=== PATIENT | female | born 1950 | race Caucasian/White ===

== ENCOUNTER 2018-10-19 13:31 | Emergency (ER) | payer BC, MEDICARE, SELFPAY ==
[2018-10-19 13:32] VITALS: BP 187/98; PULSE 78; RESP 16; TEMP 36.1; O2SAT 93; BMI 33.3
[2018-10-19 13:51] VITALS: BP 183/97; PULSE 87; RESP 32; O2SAT 97
--- NOTE | 2018-10-19 13:56 | RAD_ITS ---
STUDY: X-RAY CHEST REASON FOR EXAM: Female, 68 years old. Hypertension, cough TECHNIQUE: PA and lateral views of the chest. COMPARISON: 07/22/2014 FINDINGS: EKG leads project over the chest. Mild fibrotic scarring in the lingula, similar. Lungs are mildly hyperinflated suggesting chronic obstructive airway disease. There is no demonstrated pleural abnormality. Normal size heart. Normal mediastinum and paty. Normal visualized pulmonary arteries. Normal visualized aortic arch and descending thoracic aorta. There is demineralization of the osseous structures. Normal visualized ribs, clavicles, and shoulders. There is no demonstrated abnormality of the visualized soft tissue structures of the upper abdomen. RAD/Chest PA and Lateral IMPRESSION: No airspace consolidation or pleural effusion. Stable exam. Electronically Signed: David Silver MD at 14:46 EDT , Service support ,
[2018-10-19] MEDS: Ipratropium/Albuterol Sulfate 3 ML AMPUL.NEB INHALATION (14:13)
[2018-10-19 14:14] VITALS: PULSE 77; RESP 20
[2018-10-19 14:21] LABS: Absolute Lymphocyte Count 0.78 X10^3/ul (0.83-4.51); Absolute Neutrophil Count 13.5 X10^3/uL (2.0-7.7); Basophil# 0.01 X10^3/uL; Basophil% 0.1 % (0-1); Hematocrit 36.1 % (37-47); Hemoglobin 11.8 g/dl (12.0-15.0); Lymphocyte # 0.78 X10^3/ul (4.0); Lymphocyte % 5.2 % (19-41); Mean Corp Hgb Conc 32.7 g/gl (32-36); Mean Corpuscular Volume 85.5 fL (81-99); Mean Platelet Vol. 9.2 fl (6.2-12.0); Monocyte% 3.3 % (0-10); Neutrophil # 13.54 X10^3/uL (2.7-7.7); Neutrophil % 90.3 % (47-70); Platelet Count 453 K/mm3 (150-450); RBC Distribution Width CV 14.1 % (11.6-14.6); RBC Distribution Width SD 43.3 fl (35.1-43.9); Red Blood Count 4.22 M/mm3 (4.2-5.4)
[2018-10-19 14:24] LABS: POSITIVE COUNT NO; POSITIVE DIFFERENTIAL NO; POSITIVE MORPHOLOGY NO
--- NOTE | 2018-10-19 14:27 | ED.VIS.GEN ---
History of Present Illness <BritoWest - Last Filed: 10/19/18 15:07> Informant: Patient, Significant Other Onset: Today Context: Sudden Onset Timing: Continuous Quality: elevated blood pressure Current Severity: Severe Maximum Severity: Severe Worsened by: nothing Relieved by: nothing Associated Symptoms: cough Narrative: 68-year-old female with COPD oxygen at night presents to emergency department with elevated blood pressure. Patient gets monthly infusions for her COPD and was getting one today and they noted that her blood pressure is elevated at approximately 185/90. She is on losartan and has been for 2 years. She has been on an extended prednisone taper for weeks. No recent changes to her blood pressure medications or missed doses per patient. She has not felt lightheaded or dizzy or had a headache. She has not had any chest pain or shortness of breath. She otherwise overall is felt well other than a cough that she is been dealing with now for several days and her doctor placed her on antibiotics 3 days ago. No fevers vomiting or diarrhea. No hemoptysis. Prior similar symptoms: Yes Recent Illness/Hospitalization: No <Audi Aldridge - Last Filed: 10/19/18 15:15> Chief Complaint: Hypertension Past Medical History <DarylWest - Last Filed: 10/19/18 15:07> Prior records reviewed: Yes Surgical History: appendectomy, cholecystectomy, hysterectomy, tonsillectomy, - - Hemorrhoidectomy, surgery on her foot and excision of a mass from the left forearm. Smoking Status: Former smoker - Family History Maternal Family History: Reports: No pertinent history Paternal Family History: Reports: No pertinent history <Audi Aldridge - Last Filed: 10/19/18 15:15> - Allergies and Home Meds Allergies/Adverse Reactions: Allergies ampicillin Allergy (Verified 10/19/18 13:32) Other messed up my stomach aspirin [ASA] Allergy (Verified 10/19/18 13:32) Hives cephalexin monohydrate [From Keflex] Allergy (Verified 10/19/18 13:32) [place] Primary Care Physician: Bay Zepeda [Primary Care Provider] - Review of Systems General: Denies: Chills, Fever Respiratory: Reports: Cough, Sputum <Audi Aldridge - Last Filed: 10/19/18 15:15> Physical Exam Vital Signs/Narrative: Vital Signs Temp Pulse Resp BP Pulse Ox 10/19/18 14:14 77 20 H 10/19/18 13:51 87 32 H 183/97 H 97 10/19/18 13:32 97 F L 78 16 187/98 H 93 <Brito,West - Last Filed: 10/19/18 15:07> Vital Signs/Narrative: Vital Signs Temp Pulse Resp BP Pulse Ox 10/19/18 14:14 77 20 H 10/19/18 13:51 87 32 H 183/97 H 97 10/19/18 13:32 97 F L 78 16 187/98 H 93 Inital Vital Signs reviewed: Yes General: Well nourished, Well developed, No Acute Distress Head: Normocephalic, Atraumatic Eyes: Perrl, EOMI ENT: Moist mucous membranes Neck: Supple, Nontender Cardiovascular: Regular rate, Regular rhythm Respiratory: No distress, Chest nontender, Wheezing Abdomen: Soft, Nontender, Nondistended, Normal bowel sounds, No masses Back: Nontender Extremities: Nontender, No edema Skin: Normal color, No rash Neurological: Alert, Oriented x3, Cranial nerves II-XII grossly intact, Normal Strength, Normal Sensation, Normal DTR <Audi Aldridge - Last Filed: 10/19/18 15:15> Diagnostic/Tx/Re-eval - Medical Decision Making Patient was sent from the infusion center because of elevated blood pressure. Patient denies headache. Patient denies visual, ocular auditory symptoms. She denies trouble with speech or swallowing. She denies paresthesia, anesthesia or motor weakness. She denies chest pain or shortness of breath. Denies nausea or vomiting. She denies problems with balance. HEENT exam is unremarkable. There is no carotid bruit. Lungs encrustation. Heart is regular. Neuro exam is nonfocal. Blood work was obtained to assess for endorgan injury. None was noted. Most recent blood pressure was 171/91. She has had blood pressure readings of systolic 1 60-1 65 in the past. Since there is no evidence of endorgan injury and this is an isolated incident treatment is not acutely necessary. Recommend follow-up with PCP. <Dotty Britoo - Last Filed: 10/19/18 15:07> - Medical Decision Making Blood pressure on arrival was 187/98. Because of the recent upper respiratory symptoms patient was concern for pneumonia. Chest x-ray showed no evidence of pneumonia and her labs were unremarkable. Repeat evaluation without treatment blood pressure 171/91. Patient is hemodynamically stable. Discussed with her she will follow-up with her primary care for further management of her blood pressure but we will not treated acutely will alter her regimen. Return precautions given. She was discharged <Audi Aldridge - Last Filed: 10/19/18 15:15> ED Disposition <West Brito - Last Filed: 10/19/18 15:07> <Audi Aldridge - Last Filed: 10/19/18 15:15> - Plan for ED Patient: Disposition: Home or Assisted Living Diagnosis: Accelerated hypertension, COPD (chronic obstructive pulmonary disease) Instructions: HYPERTENSION, Established Referrals: Bay Zepeda [Primary Care Provider] -
[2018-10-19 14:30] LABS: Anion Gap 7 (5-15); BUN 16 mg/dL (7-18); Calcium,Total 9.2 mg/dL (8.5-10.1); Chloride 104 mmol/L (98-107); Creatinine, Serum 0.84 mg/dL (0.55-1.02); EST Glomerular Filtration Rate 72 mL/min (>60); Est Glom Filt Rate - Afr Amer 87 mL/min (>60); Glucose 100 mg/dL (74-106); Potassium 3.1 mmol/L (3.5-5.1); Sodium Level 142 mmol/L (136-145)
[2018-10-19 15:30] VITALS: BP 168/91; PULSE 78; RESP 19; O2SAT 98
== END 2018-10-19 16:11 | disposition home or self-care (01) ==
PROVIDERS: Emergency Provider Physician Assistant Medical; Family Provider Family Medicine; PCP Family Medicine
DX: I10 Essential (primary) hypertension (principal); J44.9 Chronic obstructive pulmonary disease, unspecified; Z79.899 Other long term (current) drug therapy; Z87.891 Personal history of nicotine dependence
CPT/HCPCS: 71046; 80048; 85025; 94640; 99283

== ENCOUNTER 2018-12-18 22:45 | Emergency (ER) | payer BC, MEDICARE, SELFPAY ==
[2018-12-18 22:46] VITALS: BP 167/104; PULSE 92; RESP 24; TEMP 36.8; O2SAT 96; BMI 33.0
--- NOTE | 2018-12-18 23:00 | ED.RN ---
PT WITH REDNESS TO LEFT WRIST WHERE SHE HAD AN INFUSION LAST WEEK PT REPORTS TENDERNESS TO AREA. PT REPORTS LOW GRADE FEVER AT HOME. 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
[2018-12-18 23:28] LABS: Absolute Lymphocyte Count 2.68 X10^3/uL (0.83-4.51); Absolute Neutrophil Count 8.9 X10^3/uL (2.0-7.7); Basophil# 0.08 X10^3/uL; Basophil% 0.6 % (0-1); Eosinophil# 0.24 X10^3/uL; Eosinophils% 1.9 % (0-5); Hematocrit 38.1 % (37-47); Hemoglobin 12.5 g/dL (12.0-15.0); Lymphocyte # 2.68 X10^3/ul (4.0); Mean Corp Hgb Conc 32.8 g/dL (32-36); Mean Corpuscular Volume 85.4 fL (81-99); Mean Platelet Vol. 9.9 fl (6.2-12.0); Monocyte# 0.82 X10^3/uL; Monocyte% 6.4 % (0-10); NRBC Flagged by Analyzer 0 % (0-5); Neutrophil # 8.93 X10^3/uL (2.7-7.7); Neutrophil % 69.8 % (47-70); Platelet Count 374 K/mm3 (150-450); RBC Distribution Width CV 13.3 % (11.6-14.6); RBC Distribution Width SD 41.7 fl (35.1-43.9); Red Blood Count 4.46 M/mm3 (4.2-5.4); White Blood Count 12.8 K/mm3 (4.4-11.0)
--- NOTE | 2018-12-18 23:45 | ED.DCSUM_ITS ---
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 She presents for fever. Her temperature was 99.3 today. She says this is a fever for her. She says her only complaint is left wrist pain at her infusion site from earlier this week. She has been getting these infusions monthly for about 10 years. This is the first time she had pain like this. No associated skin changes. No history of clots. No neurologic symptoms. No infectious symptoms otherwise. Physical Examination: Afebrile and vital signs are unremarkable. Her HEENT exam is grossly normal. Heart regular. Lungs clear. Abdomen soft. Left radial wrist is tender to palpation over the injection site. I do not appreciate any palpable cords or fluctuance. The skin appears unremarkable. She is neuro vascularly intact. Wrist is unremarkable. Test Results: White count is 12.8. Her white count ranges from 9.5-18.4. Emergency Department Course and Treatment: Patient presents with a subjective fever. Otherwise her vitals are normal. Her white count is slightly elevated, but this is nonspecific. I did not find an indication for any other diagnostic testing. She is not having respiratory symptoms, urinary symptoms. I have no reason to suspect a metabolic abnormality. I am not convinced that her injection site pain is related to her subjective fevers. She may have an SVT. She will use warm compresses and use [id number] meds for pain. She will monitor for new or worsening symptoms which could suggest a underlying cause. She will monitor her temperature. Follow-up with primary care. Treatment Plan: As above Disposition: Discharge Impression: 1. Left forearm pain This note was generated with [employer] dictation software. It may contain incorrect words, spelling, and punctuation that were not noted in review of the chart prior to signing ED Disposition - Plan for ED Patient: Referrals: Bay Zepeda [Primary Care Provider] -
--- NOTE | 2018-12-18 23:49 | ED.DEP ---
ED Disposition - Plan for ED Patient: Instructions: FEBRILE ILLNESS, Uncertain Cause (Adult) Referrals: Bay Zepeda [Primary Care Provider] -
== END 2018-12-18 23:58 | disposition home or self-care (01) ==
LOC: ED 23:09
PROVIDERS: Emergency Provider Emergency Medicine; Family Provider Family Medicine; PCP Family Medicine
DX: M79.632 Pain in left forearm (principal); D80.2 Selective deficiency of immunoglobulin A [IgA]; D80.3 Selective deficiency of immunoglobulin G [IgG] subclasses; D80.4 Selective deficiency of immunoglobulin M [IgM]; J44.9 Chronic obstructive pulmonary disease, unspecified; K21.9 Gastro-esophageal reflux disease without esophagitis; I10 Essential (primary) hypertension; E03.9 Hypothyroidism, unspecified; Z79.899 Other long term (current) drug therapy; Z87.891 Personal history of nicotine dependence
CPT/HCPCS: 36415; 85025; 99283

== ENCOUNTER 2019-05-23 00:43 | Emergency (ER) | payer BC, MEDICARE, SELFPAY ==
[2019-05-23 00:44] VITALS: BP 160/86; PULSE 90; RESP 18; TEMP 36.7; O2SAT 93; BMI 32.1
--- NOTE | 2019-05-23 01:19 | RAD_ITS ---
STUDY: X-RAY CHEST REASON FOR EXAM: Female, 69 years old. increased cough and sob -- hx of copd -- states she developed a chest cold 4 days ago TECHNIQUE: Frontal and lateral views of the chest. COMPARISON: None. FINDINGS: The lungs are clear and expanded. There is no demonstrated pleural abnormality. Normal size heart. Normal mediastinum and paty. Normal visualized pulmonary arteries. Normal visualized aortic arch and descending thoracic aorta. Normal visualized thoracic spine. There is degenerative osteoarthritis of the bilateral shoulders. There is no demonstrated abnormality of the visualized soft tissue structures of the upper abdomen. RAD/Chest PA and Lateral IMPRESSION: Degenerative changes, as described above. No demonstrated acute cardiopulmonary process. Electronically Signed: Kylie Baxter, at 2:36 EST Tel , Service support ,
--- NOTE | 2019-05-23 01:19 | EKG12_ITS ---
Test Reason : DYSRHYTHMIA Blood Pressure : / mmHG Vent. Rate : 079 BPM Atrial Rate : 079 BPM P-R Int : 136 ms QRS Dur : 082 ms QT Int : 380 ms P-R-T Axes : 070 034 055 degrees QTc Int : 435 ms Normal sinus rhythm Normal ECG Confirmed by MARIA ANTONIA BARAHONA, МАРИНА ([id number]), purchasing expeditor ARMANDO RUSSELL ([id number]) on 05/27/2019 8:08:54 AM Referred By: Марина Zepeda Confirmed By:МАРИНА EM MD
[2019-05-23] MEDS: MethylPREDNISolone 125 MG/2 ML Vial IV (01:26)
--- NOTE | 2019-05-23 01:30 | ED.DCSUM_ITS ---
History of Present Illness Chief Complaint: Shortness of Breath Informant: Patient Narrative: Patient states that a little over a week ago she was diagnosed with a sinus infection and was started on ciprofloxacin. She states that several days later it moved into her chest and she was started on steroids (from her description sounds like a Medrol dose pack). She states that she has been using her aerosol machine a couple times a day followed by every 4 hour home air. She states that she is no better. She continues to have cough with phlegm. She wears oxygen as needed but particularly at night and with activities. (2 L nasal cannula). 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 She cannot tell me what diagnosis she carries. She states she does not currently smoke. She does not have a wood heater at home. Her daughter reportedly smokes outside. Past Medical History - Allergies and Home Meds Allergies/Adverse Reactions: Allergies ampicillin Allergy (Verified 05/23/19 00:46) Other messed up my stomach aspirin [ASA] Allergy (Verified 05/23/19 00:46) Hives cephalexin monohydrate [From Keflex] Allergy (Verified 05/23/19 00:46) Hives Primary Care Physician: Bay Zepeda [Primary Care Provider] - 3-5 Days Surgical History: appendectomy, cholecystectomy, hysterectomy, tonsillectomy, - - Hemorrhoidectomy, surgery on her foot and excision of a mass from the left forearm. Smoking Status: Former smoker - Family History Maternal Family History: Reports: No pertinent history Paternal Family History: Reports: No pertinent history Review of Systems General: Denies: Chills, Fever, Sweats Eyes: Denies: Visual changes - bilaterally, Diplopia ENT: Reports: Rhinorrhea. Denies: Sore throat Cardiovascular: Denies: Chest pain, Palpitations Respiratory: Reports: Dyspnea, Cough, Sputum, Dyspnea on exertion. Denies: O rthopnea Gastrointestinal: Denies: Abdominal pain, Nausea, Vomiting, Diarrhea, Melena, Hematochezia Genitourinary: Denies: Dysuria, Hematuria, Frequency Musculoskeletal: Denies: Back pain, Extremity Pain Skin: Denies: Rash, Wounds Neurological: Denies: Headache, Weakness, Numbness Physical Exam Vital Signs/Narrative: Vital Signs Temp Pulse Resp BP Pulse Ox 05/23/19 00:44 98.0 F 90 18 160/86 H 93 Inital Vital Signs reviewed: Yes General: Well nourished, Well developed, No Acute Distress Head: Normocephalic, Atraumatic Eyes: Perrl, EOMI ENT: Moist mucous membranes, No rhinorrhea Neck: Supple, Nontender Cardiovascular: Regular rate, Regular rhythm, No murmurs Respiratory: No distress, Chest nontender, Decreased Air Movement Abdomen: Soft, Nontender, Nondistended, Normal bowel sounds Back: Nontender, Normal Inspection Extremities: Nontender, No edema Skin: Normal color, No rash Neurological: Alert, Oriented x3, Cranial nerves II-XII grossly intact, Normal Strength, Normal Sensation Psychological: Normal affect, Normal Mood Diagnostic/Tx/Re-eval - Rhythm Strip Rhythm Strip: Sinus Rhythm Rate: 79 - unchnged from 05/14/13 - Medical Decision Making Patient's white count is elevated but she has been on steroids. Her chest x-ray shows no infiltrate. Slightly low on her potassium but she has been using albuterol. I did give her some potassium here. She received breathing treatments as well as Solu-Medrol. Repeat examination she states that she is doing better. Listening to her lungs are now here wheezing and improved air exchange. Patient has nebulizer and oxygen at home. She has a portable tank. I discussed with her the fact that she tested positive for influenza B and she is having a COPD flare. Advised her that she was in the high risk group for complications. She was able to walk to the bathroom and back without her oxygen. When she got back to her room she was 89%. Patient states that she would like to go home that she believes that she will be fine and that if she gets worse she will return. I am going to have her stop her Medrol and put her on oral prednisone. She is out of the window for Tamiflu. Going to have her use every 4 hours nebulizers. Patient is comfortable with this plan. I spoke with family in the room and they are comfortable with this. She is to wear her oxygen until this has resolved. ED Disposition - Plan for ED Patient: Disposition: Home or Assisted Living Diagnosis: Influenza B, COPD (chronic obstructive pulmonary disease) Instructions: Copd Flare, INFLUENZA (Adult) Prescriptions: predniSONE tablet 60 mg PO DAILY #15 tab Prescription Printed Referrals: Bay Zepeda [Primary Care Provider] - 3-5 Days Additional Instructions: Discontinue your Medrol Dosepak. Begin prednisone tomorrow. You need to do every 4 hour albuterol aerosols (not your puffer) Drink plenty of fluids as well as the potential complications of influenza is dehydration. Monitor your breathing. The respiratory symptoms of influenza can last for weeks.
[2019-05-23 01:35] LABS: Absolute Lymphocyte Count 0.56 X10^3/uL (0.83-4.51); Absolute Neutrophil Count 12.3 X10^3/uL (2.0-7.7); Basophil# 0.02 X10^3/uL; Basophil% 0.1 % (0-1); Hematocrit 37.1 % (37-47); Hemoglobin 12.5 g/dL (12.0-15.0); Lymphocyte # 0.56 X10^3/ul (4.0); Lymphocyte % 3.9 % (19-41); Mean Corp Hgb Conc 33.7 g/dL (32-36); Mean Corpuscular Hgb 28.3 pg (27.0-32.0); Mean Corpuscular Volume 84.1 fL (81-99); Mean Platelet Vol. 9.6 fl (6.2-12.0); Monocyte# 1.34 X10^3/uL; Monocyte% 9.4 % (0-10); NRBC Flagged by Analyzer 0 % (0-5); Neutrophil # 12.29 X10^3/uL (2.7-7.7); Neutrophil % 86.1 % (47-70); POSITIVE DIFFERENTIAL YES; Platelet Count 351 K/mm3 (150-450); RBC Distribution Width CV 13.4 % (11.6-14.6); RBC Distribution Width SD 41.4 fl (35.1-43.9); Red Blood Count 4.41 M/mm3 (4.2-5.4); White Blood Count 14.3 K/mm3 (4.4-11.0)
[2019-05-23 01:36] VITALS: PULSE 102; RESP 22; RESP 24; O2SAT 97
[2019-05-23] MEDS: Ipratropium/Albuterol Sulfate 3 ML AMPUL.NEB INHALATION (01:36)
[2019-05-23 01:37] LABS: Differential Indicated SCAN CRITERIA MET
[2019-05-23] MEDS: Albuterol 2.5 MG/3 ML VIAL.NEB. INHALATION ×3 (01:46→02:23)
[2019-05-23 01:50] LABS: Anion Gap 6 (5-15); BUN 16 mg/dL (7-18); BUN/Creat Ratio 17.8 RATIO (10-20); Calcium,Total 9.3 mg/dL (8.5-10.1); Chloride 101 mmol/L (98-107); EST Glomerular Filtration Rate 67 mL/min (>60); Est Glom Filt Rate - Afr Amer 81 mL/min (>60); Estimated Creatinine Clearance 47.97 ml/min; Glucose 118 mg/dL (74-106); Potassium 2.9 mmol/L (3.5-5.1); Sodium Level 138 mmol/L (136-145)
--- NOTE | 2019-05-23 02:45 | CPS ---
x3 Albuterol given to pt. as well
[2019-05-23 03:19] VITALS: BP 150/72; PULSE 101; RESP 24; O2SAT 98
== END 2019-05-23 03:20 | disposition home or self-care (01) ==
PROVIDERS: Emergency Provider Emergency Medicine; PCP Family Medicine; Referring Provider Family Medicine
DX: J11.1 Influenza due to unidentified influenza virus with other respiratory manifestations (principal); J44.1 Chronic obstructive pulmonary disease with (acute) exacerbation; Z87.891 Personal history of nicotine dependence
CPT/HCPCS: 71046; 80048; 84484; 85025; 87804; 93005; 94640; 96374; 99251; 99285; A4216; G0463

== ENCOUNTER 2019-07-28 17:48 | Emergency (ER) | payer BC, MEDICARE, SELFPAY ==
[2019-07-28 17:50] VITALS: BP 164/98; PULSE 104; RESP 24; TEMP 36.3; O2SAT 95; BMI 31.8
[2019-07-28] MEDS: Lidocaine 2% Jelly 1 APPLIC Tube TOPICAL (18:48)
[2019-07-28] MEDS: Oxymetazoline 0.05% 1 SPRAY SPRAY.BTL 2 SPRAY NASAL (18:48)
[2019-07-28] MEDS: Thrombin 5,000 IU Kit (PSA) 5,000 IU Vial 5000 IU TOPICAL (18:49)
--- NOTE | 2019-07-28 19:02 | ED.DCSUM_ITS ---
- ER Visit Summary Date of Service: 07/28/19 Chief Complaint: Nosebleed History of Present Illness: The patient is a 69 F with a nosebleed from less than a past hour. It seems to be coming from her left nostril. She is not on blood thinners. Physical Examination: Scant dried blood at the left nostril. No active bleeding vessel noted. Otherwise exam unremarkable. Airway intact. Test Results: None indicated Emergency Department Course and Treatment: Afrin and lidocaine applied. Patient blew her nose gently. Minimal bleeding noted. Thrombin gel was applied. Patient tolerated this well. She will be discharged home to follow-up with her doctor as an outpatient. Treatment Plan: As above Disposition: Discharge Impression: Left anterior epistaxis This note was generated with [employer] dictation software. It may contain incorrect words, spelling, and punctuation that were not noted in review of the chart prior to signing ED Disposition - Plan for ED Patient: Referrals: Bay Zepeda [Primary Care Provider] -
--- NOTE | 2019-07-28 19:03 | ED.DEP ---
ED Disposition - Plan for ED Patient: Instructions: Nosebleed Referrals: Arpit Mi MD [STAFF PHYSICIAN] -
[2019-07-28 19:09] VITALS: BP 164/89; PULSE 94; RESP 18; O2SAT 94
== END 2019-07-28 19:10 | disposition home or self-care (01) ==
LOC: ED 18:24
PROVIDERS: Emergency Provider Emergency Medicine; PCP Family Medicine
DX: R04.0 Epistaxis (principal); I10 Essential (primary) hypertension; J44.9 Chronic obstructive pulmonary disease, unspecified; K21.9 Gastro-esophageal reflux disease without esophagitis; Z87.891 Personal history of nicotine dependence
CPT/HCPCS: 30901; 99282

== ENCOUNTER 2020-01-21 00:38 | Emergency (ER) | payer BC, MEDICARE, SELFPAY ==
[2020-01-21 00:42] VITALS: BP 179/88; PULSE 71; RESP 23; TEMP 36.6; O2SAT 100; O2SAT 98; BMI 34.8
--- NOTE | 2020-01-21 00:42 | RAD_ITS ---
STUDY: X-RAY CHEST REASON FOR EXAM: Female, 69 years old. C/O INTERMITTENT CRAMPS UNDER BOTH BREASTS AND LT SIDE OF UPPER BACK X 1 DAY TECHNIQUE: Single AP portable view of the chest. COMPARISON: 05/23/2019 FINDINGS: There are no confluent pulmonary infiltrates. The lungs are mildly hyperexpanded and there is mild chronic interstitial prominence, suggesting COPD. There is no demonstrated pleural effusion. Normal size heart. Normal mediastinum and paty. Normal visualized aortic arch and descending thoracic aorta. There are no demonstrated acute fractures or destructive bone lesions. There is no demonstrated abnormality of the visualized soft tissue structures of the upper abdomen. RAD/Chest 1 View (Portable) IMPRESSION: Suggestion of COPD. No evidence for acute cardiopulmonary pathology. Electronically Signed: Blayne Brown MD at 1:40 EDT , Service support ,
--- NOTE | 2020-01-21 00:42 | EKG12_ITS ---
Test Reason : CP Blood Pressure : / mmHG Vent. Rate : 072 BPM Atrial Rate : 072 BPM P-R Int : 136 ms QRS Dur : 076 ms QT Int : 386 ms P-R-T Axes : 052 020 038 degrees QTc Int : 422 ms Normal sinus rhythm Septal infarct , age undetermined Abnormal ECG Confirmed by NURA BARAHONA, KIT ([id number]), graphics editor MARICRUZ JAMIL ([id number]) on 01/27/2020 9:01:36 AM Referred By: RICH Confirmed By:LAILA LYMAN MD
--- NOTE | 2020-01-21 00:43 | ED.VIS.GEN ---
History of Present Illness Chief Complaint: Chest Pain Informant: Patient Onset: Today Context: Gradual Onset Timing: Intermittent Current Severity: Mild Maximum Severity: Moderate Narrative: Patient is a 69-year-old female with history of COPD who is on 2 L of oxygen and as needed presents to the emergency department with intermittent cramping that she describes as a charley horse on both sides of her ribs. The patient was seen at [place] emergency department about a week ago. At that time, she had hemoptysis. She underwent CTA of her chest which showed no evidence of pulmonary embolus. She was placed on prednisone and antibiotics for COPD exacerbation. She states today was her last day of prednisone. She states she had similar symptoms before when her potassium has been low. She is not on any potassium replacement. The pain is not radiating. It is not made worse with exertion. She is had a scant cough which has been improving. She denies any fevers or chills. She has no history of coronary vascular disease. Prior similar symptoms: Yes Recent Illness/Hospitalization: No Past Medical History - Allergies and Home Meds Allergies/Adverse Reactions: Allergies ampicillin Allergy (Verified 01/21/20 00:38) Other messed up my stomach aspirin [ASA] Allergy (Verified 01/21/20 00:38) Hives cephalexin monohydrate [From Keflex] Allergy (Verified 01/21/20 00:38) [facility] Primary Care Physician: Bay Zepeda DO [Primary Care Provider] - Prior records reviewed: Yes Past Medical History: - - COPD, hypertension Surgical History: appendectomy, cholecystectomy, hysterectomy, tonsillectomy, - - Hemorrhoidectomy, surgery on her foot and excision of a mass from the left forearm. Smoking Status: Former smoker - Family History Maternal Family History: Reports: No pertinent history Paternal Family History: Reports: No pertinent history Review of Systems General: Denies: Chills, Fever, Sweats Eyes: Denies: Visual changes - bilaterally, Diplopia ENT: Denies: Rhinorrhea, Sore throat Cardiovascular: Reports: Chest pain. Denies: Palpitations Respiratory: Reports: Cough. Denies: Dyspnea, Dyspnea on exertion Gastrointestinal: Denies: Abdominal pain, Nausea, Vomiting, Diarrhea, Melena, Hematochezia Genitourinary: Denies: Dysuria, Hematuria, Frequency Musculoskeletal: Denies: Back pain, Extremity Pain Skin: Denies: Rash, Wounds Neurological: Denies: Headache, Weakness, Numbness Physical Exam Inital Vital Signs reviewed: Yes General: Well nourished, Well developed, No Acute Distress Head: Normocephalic, Atraumatic Eyes: Perrl, EOMI ENT: Moist mucous membranes, No rhinorrhea Neck: Supple, Nontender Cardiovascular: Regular rate, Regular rhythm, No murmurs Respiratory: No distress, CTA bilaterally, Chest nontender Abdomen: Soft, Nontender, Nondistended, Normal bowel sounds Back: Nontender, Normal Inspection Extremities: Nontender, No edema Skin: Normal color, No rash Neurological: Alert, Oriented x3, Cranial nerves II-XII grossly intact, Normal Strength, Normal Sensation Psychological: Normal affect, Normal Mood Diagnostic/Tx/Re-eval CTA Chest w/ + w/o Contrast Date of Service: 01/07/2020 4:53 PM EDT INDICATION: SOB, hemoptysis, eval for PE DEMOGRAPHICS: 69 years old Female TECHNIQUE: Multidetector CT was performed from the thoracic inlet to the upper abdomen after nonionic intravenous contrast. For volumetric evaluation of the pulmonary arteries, Maximum Intensity Projections (MIPs) (a 3D technique as classified by the [employer]) were created and the images were reviewed. CT radiation dose optimization techniques (automated exposure control, use of iterative reconstruction techniques, or adjustment of the mA or kV according to the patients size( were used to limit patient radiation dose. COMPARISON: CT chest 07/15/2014 FINDINGS: The thoracic wall is intact and unremarkable. No evidence of axillary adenopathy. The thyroid gland is unremarkable. The heart is unremarkable. No evidence of mediastinal lymphadenopathy. The pulmonary arteries show no filling defects to suggest pulmonary embolism. There is normal tapering of the distal vessels. Slightly limited evaluation of the lungs secondary to patient motion. Diffuse centrilobular emphysematous changes are noted bilaterally. No evidence of pneumothorax, pleural effusions or focal consolidations. Two low attenuated lesions are noted within the visualized portion of the right kidney measuring up to 2 cm suggestive of renal cyst. Otherwise the visualized portions of the upper abdominal organs are unremarkable. No adrenal lesions identified. The remaining thoracic vasculature is unremarkable. The osseous structures are intact. IMPRESSION: 1. No evidence of pulmonary embolism. 2. Diffuse centrilobular emphysematous changes. 3. Two low attenuated lesions within the visualized portion of the right kidney suggestive of possible renal cyst. If clinically indicated further evaluation with a nonemergent renal ultrasound may be beneficial. Report Dictated on Final Abnormal Lab Results 01/21/20 01/21/20 00:55 00:55 WBC 16.1 H RBC 4.70 Hgb 13.2 Hct 40.9 MCV 87.0 MCH 28.1 MCHC 32.3 RDW Std Deviation 44.5 H RDW Coeff of [place] 13.7 Plt Count 429 MPV 9.5 Immature Gran % (Auto) 0.600 Neut % (Auto) 68.7 Lymph % (Auto) 22.8 [place] % (Auto) 6.3 Eos % (Auto) 1.2 Baso % (Auto) 0.4 Absolute Neuts (auto) 11.1 H Absolute Lymphs (auto) 3.67 Nucleated RBC % 0 Sodium 138 Potassium 3.4 L Chloride 102 Carbon Dioxide 34.0 H Anion Gap 2 L BUN 13 Creatinine 0.83 Estim Creat Clear Calc 52.02 Est GFR (MDRD) Af Amer 88 Est GFR (MDRD) Non-Af 73 BUN/Creatinine Ratio 15.7 Glucose 111 H Calcium 9.1 Magnesium 1.9 Troponin I < 0.015 - Rhythm Strip Rhythm Strip: Sinus Rhythm Rate: 80 Ectopy: None - EKG Initial EKG Interpretation: Sinus Rhythm, No Acute Injury Pattern Prior: Unchanged - Medical Decision Making The patient presents with intermittent cramping pain around her chest that she describes as a charley horse. It is not made worse with exertion. She does re-create it with motion. She is had similar pain before when her potassium is been low. She has been on a steroid burst but in taking supplemental potassium. Her symptoms do not seem cardiac. She is had no increase in dyspnea. Her breathing difficulties have markedly improved since starting her prednisone and antibiotic therapy. I was able to review her work-up from last week including her CTA. She had negative cardiac enzymes at that time. The work-up was repeated basically. Her cardiac enzymes are negative. She is mildly hypokalemic which I feel is contributing to the symptoms. I do not feel this represents acute coronary syndrome or dangerous cause of her chest pain. Her potassium was replaced. She will continue oral supplementation. Again, given that she is safe outpatient therapy and she is comfortable with this plan of care. Impression 1. Noncardiac chest pain ED Disposition - Plan for ED Patient: Instructions: ED Chest Pain Atypical Unkn Cause, ED Strain Chest Wall Referrals: Bay Zepeda DO [Primary Care Provider] -
[2020-01-21 00:58] LABS: Absolute Lymphocyte Count 3.67 X10^3/uL (0.83-4.51); Absolute Neutrophil Count 11.1 X10^3/uL (2.0-7.7); Basophil# 0.07 X10^3/uL; Basophil% 0.4 % (0-1); Eosinophils% 1.2 % (0-5); Hematocrit 40.9 % (37-47); Hemoglobin 13.2 g/dL (12.0-15.0); Lymphocyte # 3.67 X10^3/ul (4.0); Lymphocyte % 22.8 % (19-41); Mean Corp Hgb Conc 32.3 g/dL (32-36); Mean Corpuscular Hgb 28.1 pg (27.0-32.0); Mean Platelet Vol. 9.5 fl (6.2-12.0); Monocyte# 1.01 X10^3/uL; Monocyte% 6.3 % (0-10); NRBC Flagged by Analyzer 0 % (0-5); Neutrophil # 11.05 X10^3/uL (2.7-7.7); Neutrophil % 68.7 % (47-70); Platelet Count 429 K/mm3 (150-450); RBC Distribution Width CV 13.7 % (11.6-14.6); RBC Distribution Width SD 44.5 fl (35.1-43.9); White Blood Count 16.1 K/mm3 (4.4-11.0)
[2020-01-21 01:18] LABS: Anion Gap 2 (5-15); BUN 13 mg/dL (7-18); BUN/Creat Ratio 15.7 RATIO (10-20); Calcium,Total 9.1 mg/dL (8.5-10.1); Chloride 102 mmol/L (98-107); Creatinine, Serum 0.83 mg/dL (0.55-1.02); EST Glomerular Filtration Rate 73 mL/min (>60); Est Glom Filt Rate - Afr Amer 88 mL/min (>60); Estimated Creatinine Clearance 52.02 ml/min; Glucose 111 mg/dL (74-106); Magnesium 1.9 mg/dL (1.6-2.6); Potassium 3.4 mmol/L (3.5-5.1); Sodium Level 138 mmol/L (136-145)
[2020-01-21 01:40] VITALS: BP 152/86; PULSE 70; RESP 21; O2SAT 99
== END 2020-01-21 01:41 | disposition home or self-care (01) ==
LOC: ED 01:28
PROVIDERS: Emergency Provider Emergency Medicine; PCP Family Medicine
DX: R07.9 Chest pain, unspecified (principal); J44.1 Chronic obstructive pulmonary disease with (acute) exacerbation
CPT/HCPCS: 71045; 80048; 83735; 84484; 85025; 93005; 99285; A4216

== ENCOUNTER 2020-04-27 20:01 | Emergency (ER) | payer BC, MEDICARE, SELFPAY ==
[2020-04-27 20:02] VITALS: BP 161/105; PULSE 118; RESP 22; TEMP 36.8; O2SAT 98; BMI 32.0
--- NOTE | 2020-04-27 20:57 | EKG12_ITS ---
Test Reason : SOB Blood Pressure : / mmHG Vent. Rate : 079 BPM Atrial Rate : 079 BPM P-R Int : 138 ms QRS Dur : 076 ms QT Int : 384 ms P-R-T Axes : 030 021 050 degrees QTc Int : 440 ms Normal sinus rhythm Normal ECG Reconfirmed by MARIA ANTONIA BARAHONA, МАРИНА ([id number]), medical transcription editor ROSA CIFUENTES ([id number]) on 04/30/2020 10:30:04 AM Referred By: ASA Confirmed By:МАРИНА EM MD
[2020-04-27 21:09] VITALS: BP 154/80; PULSE 100; RESP 25; O2SAT 99
[2020-04-27 21:26] LABS: Absolute Neutrophil Count 11.1 X10^3/uL (2.0-7.7); Basophil# 0.06 X10^3/uL; Basophil% 0.4 % (0-1); Eosinophil# 0.16 X10^3/uL; Eosinophils% 1.2 % (0-5); Hematocrit 36.8 % (37-47); Hemoglobin 12.2 g/dL (12.0-15.0); Lymphocyte % 10.4 % (19-41); Mean Corp Hgb Conc 33.2 g/dL (32-36); Mean Corpuscular Hgb 28.1 pg (27.0-32.0); Mean Corpuscular Volume 84.8 fL (81-99); Mean Platelet Vol. 9.9 fl (6.2-12.0); Monocyte# 0.79 X10^3/uL; Monocyte% 5.8 % (0-10); NRBC Flagged by Analyzer 0 % (0-5); Neutrophil # 11.07 X10^3/uL (2.7-7.7); Neutrophil % 81.9 % (47-70); Platelet Count 381 K/mm3 (150-450); RBC Distribution Width CV 13.3 % (11.6-14.6); RBC Distribution Width SD 41.6 fl (35.1-43.9); Red Blood Count 4.34 M/mm3 (4.2-5.4); White Blood Count 13.5 K/mm3 (4.4-11.0)
[2020-04-27] MEDS: Albuterol 2.5 MG/3 ML VIAL.NEB. INHALATION ×3 (21:27)
[2020-04-27] MEDS: Ipratropium/Albuterol Sulfate 3 ML AMPUL.NEB INHALATION (21:27)
[2020-04-27 21:28] VITALS: PULSE 94; RESP 18
--- NOTE | 2020-04-27 21:40 | RAD_ITS ---
STUDY: X-RAY CHEST REASON FOR EXAM: Female, 69 years old. patient with shortness of breath that started sunday increasingly has gotten worse. patient has copd TECHNIQUE: Single AP portable view of the chest. COMPARISON: None. FINDINGS: The lungs are clear and expanded. There is no demonstrated pleural abnormality. Normal size heart. Normal mediastinum and paty. Normal visualized pulmonary arteries. Normal visualized aortic arch and descending thoracic aorta. Normal visualized thoracic spine. There is degenerative osteoarthritis of the bilateral shoulders. There is no demonstrated abnormality of the visualized soft tissue structures of the upper abdomen. RAD/Chest 1 View (Portable) IMPRESSION: Degenerative changes, as described above. No demonstrated acute cardiopulmonary process. Electronically Signed: Kylie Baxter, at 23:52 EST Tel , Service support ,
--- NOTE | 2020-04-27 21:41 | ED.DCSUM_ITS ---
History of Present Illness Chief Complaint: Shortness of Breath Informant: Patient Narrative: 69-year-old female presents for the evaluation of shortness of breath. Patient has a longstanding history of COPD. She wears 2 L of home oxygen mostly at night and as needed. She states for the past couple days she has been having worsening shortness of breath that was significantly more worse today. She feels wheezing. She has a prescription for prednisone at home for when she gets like this but wanted to be evaluated before she took it. She denies any fevers. There is no change in her cough or her sputum. She took an albuterol nebulizer approximately 2 hours before arrival. - Past Medical History (1) COPD (chronic obstructive pulmonary disease) Status: Chronic (2) GERD (gastroesophageal reflux disease) Status: Chronic (3) HTN (hypertension) Status: Chronic (4) Hypothyroidism Status: Chronic (5) Immune deficiency disorder Status: Chronic Past Medical History - Allergies and Home Meds Allergies/Adverse Reactions: Allergies ampicillin Allergy (Verified 04/27/20 20:04) Other messed up my stomach aspirin [ASA] Allergy (Verified 04/27/20 20:04) Hives cephalexin monohydrate [From Keflex] Allergy (Verified 04/27/20 20:04) Hives Primary Care Physician: Bay Zepeda DO [Primary Care Provider] - Surgical History: appendectomy, cholecystectomy, hysterectomy, tonsillectomy, - - Hemorrhoidectomy, surgery on her foot and excision of a mass from the left forearm. Smoking Status: Former smoker Drugs: None - Family History Maternal Family History: Reports: No pertinent history Paternal Family History: Reports: No pertinent history Review of Systems General: Denies: Chills, Fever, Sweats Eyes: Denies: Visual changes - bilaterally, Diplopia ENT: Denies: Rhinorrhea, Sore throat Cardiovascular: Denies: Chest pain, Palpitations Respiratory: Reports: Dyspnea, Cough - No change from baseline, Sputum - No change from baseline, Dyspnea on exertion Gastrointestinal: Denies: Abdominal pain, Nausea, Vomiting, Diarrhea, Melena, Hematochezia Genitourinary: Denies: Dysuria, Hematuria, Frequency Musculoskeletal: Denies: Back pain, Extremity Pain Skin: Denies: Rash, Wounds Neurological: Denies: Headache, Weakness, Numbness Physical Exam Vital Signs/Narrative: Vital Signs Temp Pulse Resp BP Pulse Ox 01/05/21 21:28 94 18 04/27/20 21:09 100 25 H 154/80 H 99 04/27/20 20:02 98.2 F 118 H 22 H 161/105 H 98 Inital Vital Signs reviewed: Yes General: Well nourished, Well developed, No Acute Distress Head: Normocephalic, Atraumatic Eyes: Perrl, EOMI ENT: Moist mucous membranes, No rhinorrhea Neck: Supple, Nontender Cardiovascular: Regular rate, Regular rhythm, No murmurs Respiratory: No distress, Chest nontender, Wheezing Abdomen: Soft, Nontender, Nondistended, Normal bowel sounds Back: Nontender, Normal Inspection Extremities: Nontender, No edema Skin: Normal color, No rash Neurological: Alert, Oriented x3, Cranial nerves II-XII grossly intact, Normal Strength, Normal Sensation Psychological: Normal affect, Normal Mood Diagnostic/Tx/Re-eval Laboratory Last Values WBC 13.5 K/mm3 (4.4-11.0) H 04/27/20 21:10 RBC 4.34 M/mm3 (4.2-5.4) 04/27/20 21:10 Hgb 12.2 g/dL (12.0-15.0) 04/27/20 21:10 Hct 36.8 % (37-47) L 04/27/20 21:10 MCV 84.8 fL (81-99) 04/27/20 21:10 MCH 28.1 pg (27.0-32.0) 04/27/20 21:10 MCHC 33.2 g/dL (32-36) 04/27/20 21:10 RDW Std Deviation 41.6 fl (35.1-43.9) 04/27/20 21:10 RDW Coeff of [place] 13.3 % (11.6-14.6) 04/27/20 21:10 Plt Count 381 K/mm3 (150-450) 04/27/20 21:10 MPV 9.9 fl (6.2-12.0) 04/27/20 21:10 Immature Gran % (Auto) 0.300 % (0.0-0.9) 04/27/20 21:10 Neut % (Auto) 81.9 % (47-70) H 04/27/20 21:10 Lymph % (Auto) 10.4 % (19-41) L 04/27/20 21:10 [place] % (Auto) 5.8 % (0-10) 04/27/20 21:10 Eos % (Auto) 1.2 % (0-5) 04/27/20 21:10 Baso % (Auto) 0.4 % (0-1) 04/27/20 21:10 Absolute Neuts (auto) 11.1 X10^3/uL (2.0-7.7) H 04/27/20 21:10 Absolute Lymphs (auto) 1.40 X10^3/uL (0.83-4.51) 04/27/20 21:10 Nucleated RBC % 0 % (0-5) 04/27/20 21:10 Sodium 142 mmol/L (136-145) 04/27/20 21:10 Potassium 3.2 mmol/L (3.5-5.1) L 04/27/20 21:10 Chloride 104 mmol/L (98-107) 04/27/20 21:10 Carbon Dioxide 32.0 mmol/L (21.0-32.0) 04/27/20 21:10 Anion Gap 6 (5-15) 04/27/20 21:10 BUN 8 mg/dL (7-18) 04/27/20 21:10 Creatinine 0.85 mg/dL (0.55-1.02) 04/27/20 21:10 Estim Creat Clear Calc 50.80 ml/min 04/27/20 21:10 Est GFR (MDRD) Af Amer 86 mL/min (>60) 04/27/20 21:10 Est GFR (MDRD) Non-Af 71 mL/min (>60) 04/27/20 21:10 BUN/Creatinine Ratio 9.4 RATIO (10-20) L 04/27/20 21:10 Glucose 139 mg/dL (74-106) H 04/27/20 21:10 Calcium 9.2 mg/dL (8.5-10.1) 04/27/20 21:10 Troponin I < 0.015 ng/mL (<0.045) 04/27/20 21:10 - EKG Initial EKG Interpretation: Sinus Rhythm - EKG demonstrates a normal sinus rhythm at a rate of 79 without ectopy. No significant change from EKG dated January 21, 2020. - Medical Decision Making Patient potassium is 3.2. Probably due to the increase in albuterol use. Troponin negative. EKG is normal sinus rhythm. Chest x-ray was obtained. My interpretation of the single view portable chest x-ray is chronic changes no acute disease. Patient received breathing treatments and Solu-Medrol. She was reassessed. Patient is feeling better. She like to discuss charge home. I will write her a tapering dose of prednisone. Return if worsening or concerns ED Disposition - Plan for ED Patient: Disposition: Home or Assisted Living Diagnosis: COPD exacerbation Instructions: ED COPD Flare Prescriptions: Prednisone 10 mg PO UD #33 tab Prescription Printed Referrals: Bay Zepeda DO [Primary Care Provider] - As Needed
[2020-04-27 21:44] LABS: Anion Gap 6 (5-15); BUN 8 mg/dL (7-18); BUN/Creat Ratio 9.4 RATIO (10-20); Calcium,Total 9.2 mg/dL (8.5-10.1); Chloride 104 mmol/L (98-107); Creatinine, Serum 0.85 mg/dL (0.55-1.02); EST Glomerular Filtration Rate 71 mL/min (>60); Est Glom Filt Rate - Afr Amer 86 mL/min (>60); Glucose 139 mg/dL (74-106); Potassium 3.2 mmol/L (3.5-5.1); Sodium Level 142 mmol/L (136-145)
[2020-04-27 22:04] VITALS: BP 143/93; PULSE 98; RESP 24; O2SAT 98
[2020-04-27] MEDS: MethylPREDNISolone 125 MG/2 ML Vial IV (22:10)
== END 2020-04-27 22:21 | disposition home or self-care (01) ==
PROVIDERS: Emergency Provider Emergency Medicine; PCP Family Medicine
DX: J44.1 Chronic obstructive pulmonary disease with (acute) exacerbation (principal); I10 Essential (primary) hypertension; E03.9 Hypothyroidism, unspecified; K21.9 Gastro-esophageal reflux disease without esophagitis; Z79.52 Long term (current) use of systemic steroids; Z87.891 Personal history of nicotine dependence
CPT/HCPCS: 71045; 80048; 84484; 85025; 87426; 93005; 94640; 96374; 99284; A4216

== ENCOUNTER 2020-06-07 00:12 | Emergency (ER) | payer BC, MEDICARE, SELFPAY ==
[2020-06-07 00:12] VITALS: BP 175/109; PULSE 85; RESP 18; TEMP 36.6; O2SAT 95; BMI 32.1
--- NOTE | 2020-06-07 00:28 | RAD_ITS ---
HISTORY: s/p fallc/o some pain under left breaststates she heard a crackhx of copd ADDITIONAL HISTORY: None provided. COMPARISON: 04/27/2020 EXAMINATION/TECHNIQUE: XR Ribs Unilateral W/ PA Chest Min 3 Views Left FINDINGS: No acute fracture. No consolidation, pleural effusion or pneumothorax. Acute rib fractures can be difficult to visualize radiographically. Follow-up as clinically warranted. RAD/Ribs Uni Min 3V w/PA Chest IMPRESSION: No acute rib fracture detected. at 0056 Reported and signed by: Loraine Mcdaniel MD Electronically Signed: Loraine Mcdaniel MD at 0:56 EST Tel , Service support ,
--- NOTE | 2020-06-07 01:00 | ED.VISSUMM ---
- ER Visit Summary Date of Service: 06/07/20 Chief Complaint: [Left rib pain after fall] History of Present Illness: The patient is a 70 F [presents to the emergency department with a fall that occurred an hour ago. Patient states that there was a baby at her feet and she tripped over the child and fell on her knees and left elbow. Patient states that she felt a pop in her left ribs. Patient having pain now with deep breath and certain movements. At rest she really does not have much pain. Patient has history of COPD. Patient normally wears home O2. She denies recent illness. Patient denies wrecking her head or loss of consciousness. She denies neck pain. She has been ambulatory.] Physical Examination: [HEENT-PERRLA, EOMI. Cranial nerves II through XII grossly intact. TMs clear. Mucous membranes moist. No adenopathy. Cardiovascular-regular rate and rhythm without murmur or ectopy Lungs-clear to auscultation, chest wall stable without crepitus or subcu emphysema. Patient does have tenderness palpation over the left lower ribs in the midaxillary line into the anterior portion of the left chest just inferior to her left breast. Abdomen-normoactive bowel sounds, soft, nontender, no rebound or rigidity, no peritoneal signs. Extremities-intact ?4, normal range of motion, normal pulses, atraumatic] Test Results: [X-rays of the left ribs and PA chest obtained 3 views total interpreted by myself as no acute rib fractures and no evidence of pneumothorax. Radiology in agreement.] Emergency Department Course and Treatment: [Patient did not want a thing for pain] Treatment Plan: [Patient states that she will stick to ibuprofen for pain. She will be dispensed incentive spirometer. Patient advised to follow-up with her primary care physician in 3 to 5 days. I suspect clinically patient likely has a nondisplaced rib fracture.] Disposition: [Discharged home in stable condition] Impression: [Left chest wall strain-possible nondisplaced rib fracture] This note was generated with [employer] dictation software. It may contain incorrect words, spelling, and punctuation that were not noted in review of the chart prior to signing ED Disposition - Plan for ED Patient: Referrals: Bay Zepeda DO [Primary Care Provider] -
--- NOTE | 2020-06-07 01:03 | ED.DEP ---
ED Disposition - Plan for ED Patient: Instructions: ED Mechanical Fall, ED Rib Contusion or Minor Fracture Referrals: Bay Zepeda DO [Primary Care Provider] - 3-5 Days
[2020-06-07 01:06] VITALS: BP 144/71; PULSE 68; RESP 18; O2SAT 99
== END 2020-06-07 01:11 | disposition home or self-care (01) ==
LOC: ED 01:10
PROVIDERS: Emergency Provider Emergency Medicine; PCP Family Medicine
DX: S29.011A Strain of muscle and tendon of front wall of thorax, initial encounter (principal); W03.XXXA Other fall on same level due to collision with another person, initial encounter; Y93.9 Activity, unspecified; Y92.9 Unspecified place or not applicable; Y99.9 Unspecified external cause status; I10 Essential (primary) hypertension; J44.9 Chronic obstructive pulmonary disease, unspecified; E03.9 Hypothyroidism, unspecified; K21.9 Gastro-esophageal reflux disease without esophagitis; Z99.81 Dependence on supplemental oxygen; Z79.82 Long term (current) use of aspirin; Z79.899 Other long term (current) drug therapy
CPT/HCPCS: 71101; 99282

== ENCOUNTER 2020-11-26 09:12 | Emergency (ER) | payer BC, MEDICARE, SELFPAY ==
[2020-11-26 09:14] VITALS: BP 168/110; PULSE 95; RESP 16; TEMP 36.2; O2SAT 98; BMI 29.0
--- NOTE | 2020-11-26 09:48 | EKG12_ITS ---
Test Reason : Blood Pressure : / mmHG Vent. Rate : 085 BPM Atrial Rate : 085 BPM P-R Int : 134 ms QRS Dur : 080 ms QT Int : 360 ms P-R-T Axes : 060 032 042 degrees QTc Int : 428 ms Normal sinus rhythm Normal ECG Confirmed by MARIA ANTONIA BARAHONA, МРАИНА ([id number]), field map editor MARICRUZ JAMIL ([id number]) on 11/29/2020 9:11:00 AM Referred By: VANE Confirmed By:МАРИНА EM MD
--- NOTE | 2020-11-26 09:53 | ED.VIS.DYS ---
HPI History of Present Illness Chief Complaint: Shortness of Breath Informant: patient Narrative Narrative: Patient comes in with chest tightness and shortness of breath. She states she has COPD. She normally uses 2 L of oxygen just with activity and at night. For the last week she has been using it continually. Her and her daughter that her grandchildren all got a cough and URI symptoms. They seem to get it and get better. She seems to be getting worse. She started prednisone 6 days ago. She started at 60 mg for 2 days then 50 mg and she is on her second day of 40 mg. She is on day 3 of Levaquin. The sputum was green is now turning white. However her chest tightness continues. It is not pain. She states she is wheezing. She has had this before. She normally gets treatments here that helped her a lot. She is not having myalgias. No fevers. She is eating and drinking. Her breathing treatments do help a bit but do not resolve it. Nothing specifically makes her symptoms worse. She denies any recent travel, surgery, personal or family history of DVT or PE. She has never had cardiac complications. [facility] Medical History (Updated 11/26/20 @ 12:[address] Reinaldo Godfrey MD) COPD (chronic obstructive pulmonary disease) GERD (gastroesophageal reflux disease) Hypertension Hypothyroid Immune deficiency disorder Home Medications Spiriva with HandiHaler 1 puff INHALATION DAILY 07/22/14 [History Last Taken Unknown] albuterol sulfate [ProAir HFA] 2 puff INHALATION Q4H PRN PRN 07/22/14 [History Last Taken Unknown] budesonide 1 applicatio INHALATION BID 07/22/14 [History Last Taken 07/21/14] formoterol fumarate [Perforomist] 20 mcg INHALATION BID 07/22/14 [History Last Taken 07/21/14] levothyroxine 100 mcg PO DAILY 07/22/14 [History Last Taken 07/22/14] omeprazole 20 mg PO DAILY 07/22/14 [History Last Taken 07/21/14] amlodipine 2.5 mg PO DAILY 12/18/18 [History Last Taken Unknown] triamterene-hydrochlorothiazid 1 tab PO DAILY 12/18/18 [History Last Taken Unknown] Turmeric 1 tab PO DAILY 05/23/19 [History Last Taken Unknown] cholecalciferol (vitamin D3) 2,000 unit PO DAILY 05/23/19 [History Last Taken Unknown] zafirlukast 20 mg PO BID 05/23/19 [History Last Taken Unknown] multivitamin 1 ea PO DAILY 01/21/20 [History Last Taken Unknown] potassium 99 mg PO DAILY 04/27/20 [History Last Taken Unknown] ipratropium bromide 2.5 ml INHALATION BID 11/26/20 [History Last Taken Unknown] prednisone 11/26/20 [History Last Taken Unknown] Allergy/AdvReac Type Severity Reaction Status Date / Time ampicillin Allergy Other Verified 11/26/20 09:13 aspirin [ASA] Allergy Hives Verified 11/26/20 09:13 cephalexin monohydrate Allergy Hives Verified 11/26/20 09:13 [From KeMab[employer]te] Social History Smoking Status: Former smoker ROS ROS ED Constitutional Constitutional ED: Denies chills, fever(s) or sweats Eyes Eyes: Denies change in vision ENT ENT ED: Denies rhinorrhea or sore throat Cardiovascular Cardiovascular: Denies chest pain, palpitations or racing heartbeat Respiratory/Chest Respiratory/Chest: Reports cough, dyspnea, dyspnea on exertion and sputum Gastrointestinal Gastrointestinal: Denies diarrhea, nausea or vomiting Genitourinary Genitourinary ED: Denies dysuria Musculoskeletal Musculoskeletal: Denies arthralgias or myalgias Integumentary Denies rash Neurologic Neurologic: Denies headache(s) or weakness Endocrine Endocrinology: Denies polydipsia or polyuria Hematologic/Lymphatic Hematologic/Lymphatic: Denies easy bleeding or easy bruising EXAM Physical Exam Const Vital Signs: 11/26/20 09:14 11/26/20 10:16 11/26/20 10:39 Temperature 97.2 F L 97.2 F L Temperature Source Temporal Temporal Pulse Rate 95 138 H 96 Respiratory Rate 16 29 H 20 H Respiratory Effort Short of Breath Respiratory Pattern Normal Blood Pressure 168/110 H 165/101 H Blood Pressure Mean 129 122 Pulse Ox 98 90 Oxygen Delivery Method Nasal Cannula Nasal Cannula Oxygen Flow Rate (L/min) 2 11/26/20 12:05 Temperature Temperature Source Pulse Rate 93 Respiratory Rate 23 H Respiratory Effort Respiratory Pattern Blood Pressure 171/92 H Blood Pressure Mean 118 Pulse Ox 99 Oxygen Delivery Method Nasal Cannula Oxygen Flow Rate (L/min) Positive well nourished and well developed General Appearance ED: well developed and NAD HEENT atraumatic Eyes General Eye ED: Negative for pale conjunctiva or scleral icterus Neck supple and no JVD Resp No clear to auscultation bilaterally Resp Narrative: Mild increase in respiratory work but she carries on a normal conversation without difficulty. She does have diffuse expiratory wheezing but no rales or rhonchi. Auscultation: wheezes; Negative for rales or rhonchi Cardio regular rate and regular rhythm GI non-tender and non-distended Palpation: soft Extremity normal to inspection Extremity Narrative: No asymmetry cords or distended veins. General Extremety ED: Negative for edema or tenderness General Extremity: Negative for edema Neuro Sensorium / Orientation: alert Psych mental status grossly normal Skin Rashes: no rashes MDM MDM MDM Narrative Medical decision making narrative: Patient's blood work showed some mildly high white count but this is at her baseline. Likewise, potassium was low but near her baseline. Lactic acid was normal. Troponin was normal. Chest x-ray was suspicious for either early pneumonia or possibly a small tumor. Her symptoms are more consistent with pneumonia. She may need a CAT scan of the chest but I do not think this needs to be done acutely. I went to check the patient. She is up sitting in the chair. She states she feels better and she wants to go home. 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 I explained that I am concerned because she is already on steroids and antibiotics and still came in here. However the patient states she has oxygen at home. She has an O2 sat she can watch her levels. I listen to her lungs and she still does have some wheezing although it is improved. I will get her another breathing treatment. We talked about walking her to make sure she is does not desaturate with her level of activity. If she feels okay with that we will get her home. We walked the patient in the room on her oxygen. She walked around and the lowest oxygen low. She states she wheezes all the time. She feels good enough to go home. She was given some Solu-Medrol which is short acting. I will give her a dose of Decadron as a slight burst to her steroids in an effort to help her get better. I told her to have a low threshold for returning. She is adamant that she feels well enough and really wants to go home. Lab Data Labs: Laboratory Results - last 24 hr 11/26/20 11/26/20 11/26/20 10:10 10:10 10:10 WBC 13.1 H RBC 4.28 Hgb 12.1 Hct 37.0 MCV 86.4 MCH 28.3 MCHC 32.7 RDW Std Deviation 44.6 H RDW Coeff of [place] 14.0 Plt Count 410 MPV 10.0 Immature Gran % (Auto) 0.800 Neut % (Auto) 81.5 H Lymph % (Auto) 7.0 L Mcdonald % (Auto) 10.5 H Eos % (Auto) 0.0 Baso % (Auto) 0.2 Absolute Neuts (auto) 10.7 H Absolute Lymphs (auto) 0.92 Nucleated RBC % 0 Sodium 140 Potassium 2.9 L Chloride 102 Carbon Dioxide 33.0 H Anion Gap 5 BUN 15 Creatinine 0.82 Estim Creat Clear Calc 51.93 Est GFR (MDRD) Af Amer 89 Est GFR (MDRD) Non-Af 73 BUN/Creatinine Ratio 18.2 Glucose 93 Lactic Acid 1.3 Calcium 9.3 Troponin I High Sens 17.0 Radiography Diagnostic Testing: Radiology Impression Chest X-Ray 11/26/20 11:05 EKG Initial EKG: Comments: EKG done for dyspnea read by me shows normal sinus rhythm with a rate of 85. No ectopy. No acute ST elevation or depression. AK interval, QRS duration and QTC are normal. Discharge Plan Triage Chief Complaint: Shortness of Breath ED Provider: Reinaldo Godfrey Dx/Rx/DC Orders Clinical Impression: Acute exacerbation of chronic obstructive pulmonary disease, Community acquired pneumonia Instructions: ED COPD Flare Prescriptions: No Action levothyroxine 100 MCG tablet 100 mcg PO DAILY RF: 0 omeprazole 20 MG capsule 20 mg PO DAILY RF: 0 budesonide 0.5 MG/2 ML suspension for nebulization 1 applicatio inhalation BID RF: 0 albuterol sulfate [ProAir HFA] 1 PUFF inhaler 2 puff inhalation Q4H PRN PRN (Reason: Sob &/Or Wheezing) RF: 0 Spiriva with HandiHaler 1 PUFF inhaler 1 puff inhalation DAILY RF: 0 formoterol fumarate [Perforomist] 20 MCG/2 ML solution for nebulization 20 mcg inhalation BID RF: 0 amlodipine 2.5 MG tablet 2.5 mg PO DAILY RF: 0 triamterene-hydrochlorothiazid 1 EACH tablet 1 tab PO DAILY RF: 0 zafirlukast 20 tablet 20 mg PO BID RF: 0 cholecalciferol (vitamin D3) 2,000 UNIT capsule 2,000 unit PO DAILY RF: 0 Turmeric 1 tab PO DAILY RF: 0 multivitamin 1 EACH tablet 1 ea PO DAILY RF: 0 potassium 99 MG tablet 99 mg PO DAILY RF: 0 prednisone 10 mg tablet RF: 0 ipratropium bromide 0.02 % Solution 2.5 ml INHALATION BID RF: 0 Primary Care Provider: Bay Zepeda Referrals: Bay Zepeda DO [Primary Care Provider] - 1-2 Days if not improving Disposition Disposition: Home, Self Care
[2020-11-26 10:16] VITALS: BP 165/101; PULSE 138; RESP 29; TEMP 36.2; O2SAT 90; O2SAT 95
[2020-11-26 10:22] LABS: Absolute Lymphocyte Count 0.92 X10^3/uL (0.83-4.51); Absolute Neutrophil Count 10.7 X10^3/uL (2.0-7.7); Basophil# 0.02 X10^3/uL; Basophil% 0.2 % (0-1); Hemoglobin 12.1 g/dL (12.0-15.0); Lymphocyte # 0.92 X10^3/ul (0.83-4.51); Mean Corp Hgb Conc 32.7 g/dL (32-36); Mean Corpuscular Hgb 28.3 pg (27.0-32.0); Mean Corpuscular Volume 86.4 fL (81-99); Monocyte# 1.38 X10^3/uL; Monocyte% 10.5 % (0-10); NRBC Flagged by Analyzer 0 % (0-5); Neutrophil # 10.71 X10^3/uL (2.7-7.7); Neutrophil % 81.5 % (47-70); Platelet Count 410 K/mm3 (150-450); RBC Distribution Width SD 44.6 fl (35.1-43.9); Red Blood Count 4.28 M/mm3 (4.2-5.4); White Blood Count 13.1 K/mm3 (4.4-11.0)
[2020-11-26 10:39] VITALS: PULSE 96; RESP 20
[2020-11-26] MEDS: Ipratropium/Albuterol Sulfate 3 ML AMPUL.NEB INHALATION (10:39)
[2020-11-26] MEDS: Albuterol 2.5 MG/3 ML VIAL.NEB. INHALATION (10:39)
[2020-11-26 10:42] LABS: Anion Gap 5 (5-15); BUN 15 mg/dL (7-18); BUN/Creat Ratio 18.2 RATIO (10-20); Calcium,Total 9.3 mg/dL (8.5-10.1); Chloride 102 mmol/L (98-107); Creatinine, Serum 0.82 mg/dL (0.55-1.02); EST Glomerular Filtration Rate 73 mL/min (>60); Est Glom Filt Rate - Afr Amer 89 mL/min (>60); Estimated Creatinine Clearance 51.93 ml/min; Glucose 93 mg/dL (74-106); Potassium 2.9 mmol/L (3.5-5.1); Sodium Level 140 mmol/L (136-145)
[2020-11-26 10:44] LABS: Lactic Acid 1.3 mmol/L (0.4-1.9)
--- NOTE | 2020-11-26 11:05 | RAD_ITS ---
EXAM DESCRIPTION: PORTABLE AP CHEST CLINICAL HISTORY: 70 years Female, SOB SOB COMPARISON: Previous chest obtained on 06/07/2020 FINDINGS: The thorax is intact. The heart and mediastinum appear to be within normal limits. The lungs demonstrated Nodular appearing type density measuring about 1.7 cm in size in the right upper lobe which previously was not seen. The rapid appearance of this nodular density is most suggestive of a inflammatory process such as a pneumonic infiltrate, however, a pulmonary nodule or metastasis cannot be completely excluded. If clinically indicated an unenhanced CT scan of the chest might be helpful for additional evaluation. IMPRESSION: 1.7 cm nodular density in the right upper lobe of uncertain etiology. Early pneumonic infiltrate versus tumor are the diagnostic considerations and, if clinically indicated a C -, CT scan of the chest, would be helpful for further evaluation Electronically Signed: Dale Flores DO at 11:34 EDT Tel , Service support , RAD/Chest 1 View (Portable)
[2020-11-26] MEDS: MethylPREDNISolone 125 MG/2 ML Vial IV (11:08)
[2020-11-26] MEDS: Potassium Chloride Oral Tablet 20 MEQ 40 MEQ PO (11:58)
[2020-11-26 12:05] VITALS: BP 171/92; PULSE 93; RESP 23; O2SAT 99
[2020-11-26 12:53] VITALS: BP 154/79; PULSE 91; RESP 18; TEMP 36.6; O2SAT 100
[2020-11-26] MEDS: dexAMETHasone 10 MG/ML Vial IV (12:53)
== END 2020-11-26 12:56 | disposition home or self-care (01) ==
PROVIDERS: Emergency Provider Emergency Medicine; PCP Family Medicine
DX: J44.0 Chronic obstructive pulmonary disease with (acute) lower respiratory infection (principal); J18.9 Pneumonia, unspecified organism; J44.1 Chronic obstructive pulmonary disease with (acute) exacerbation; I10 Essential (primary) hypertension; E03.9 Hypothyroidism, unspecified; K21.9 Gastro-esophageal reflux disease without esophagitis; Z79.82 Long term (current) use of aspirin; Z79.899 Other long term (current) drug therapy; Z87.891 Personal history of nicotine dependence
CPT/HCPCS: 71045; 80048; 83605; 84484; 85025; 87426; 93005; 94640; 96374; 96375; 99285; A4216

== ENCOUNTER 2021-01-07 18:27 | Emergency (ER) | payer BC, MEDICARE, SELFPAY ==
[2021-01-07 18:29] VITALS: BP 165/81; PULSE 88; RESP 17; TEMP 36.5; O2SAT 97; BMI 31.7
--- NOTE | 2021-01-07 19:38 | EDS_ITS ---
HPI History of Present Illness Chief Complaint: Ear Problem Informant: patient Narrative Narrative: 70-year-old female presenting to the emergency department with sores in her mouth and right ear pain. She states that she noticed the symptoms yesterday. She states that the sores are only on the left side of her tongue and she has some on her lip. She notes some discomfort along the left mandible and into the left ear. She describes the discomfort as a burning type of pain. She is chronically on prednisone. No reported fevers. She did receive a cortisone injection a couple days ago. [facility] Medical History COPD (chronic obstructive pulmonary disease) GERD (gastroesophageal reflux disease) Hypertension Hypothyroid Immune deficiency disorder Home Medications Spiriva with HandiHaler 1 puff INHALATION DAILY 07/22/14 [History Last Taken Unknown] albuterol sulfate [ProAir HFA] 2 puff INHALATION Q4H PRN PRN 07/22/14 [History Last Taken Unknown] budesonide 1 applicatio INHALATION BID 07/22/14 [History Last Taken 07/21/14] formoterol fumarate [Perforomist] 20 mcg INHALATION BID 07/22/14 [History Last Taken 07/21/14] levothyroxine 100 mcg PO DAILY 07/22/14 [History Last Taken 07/22/14] omeprazole 20 mg PO DAILY 07/22/14 [History Last Taken 07/21/14] amlodipine 2.5 mg PO DAILY 12/18/18 [History Last Taken Unknown] triamterene-hydrochlorothiazid 1 tab PO DAILY 12/18/18 [History Last Taken Unknown] Turmeric 1 tab PO DAILY 05/23/19 [History Last Taken Unknown] cholecalciferol (vitamin D3) 2,000 unit PO DAILY 05/23/19 [History Last Taken Unknown] zafirlukast 20 mg PO BID 05/23/19 [History Last Taken Unknown] multivitamin 1 ea PO DAILY 01/21/20 [History Last Taken Unknown] potassium 99 mg PO DAILY 04/27/20 [History Last Taken Unknown] ipratropium bromide 2.5 ml INHALATION BID 11/26/20 [History Last Taken Unknown] prednisone 11/26/20 [History Last Taken Unknown] acyclovir 800 mg PO 5X/DAY #35 tablet 01/07/21 [Rx Last Taken Unknown] lidocaine HCl [Lidocaine Viscous] 10 ml MUCOUS MEMBRANE Q6H PRN #300 ml 01/07/21 [Rx Last Taken Unknown] prednisone 60 mg PO DAILY #15 tablet 01/07/21 [Rx Last Taken Unknown] Allergy/AdvReac Type Severity Reaction Status Date / Time ampicillin Allergy Other Verified 01/07/21 18:28 aspirin [ASA] Allergy Hives Verified 01/07/21 18:28 cephalexin monohydrate Allergy Hives Verified 01/07/21 18:28 [From Keflex] Social History (Updated 01/07/21 @ 19:[address] Jaden Davison, DO) Smoking Status: Former smoker substance use type: does not use ROS ROS ED Constitutional Constitutional ED: Denies chills or weight loss Eyes Eyes: Denies change in vision or diplopia ENT ENT ED: Reports ear pain and other Details: See HPI ; Denies rhinorrhea or sore throat Cardiovascular Cardiovascular: Denies chest pain, orthopnea, palpitations or racing heartbeat Respiratory/Chest Respiratory/Chest: Denies cough, dyspnea or orthopnea Gastrointestinal Gastrointestinal: Denies abdominal pain, diarrhea, nausea or vomiting Genitourinary Genitourinary ED: Denies dysuria, hematuria or urinary frequency Musculoskeletal Musculoskeletal: Denies arthralgias or myalgias Integumentary Reports rash; Denies abscess Neurologic Neurologic: Denies headache(s) or weakness Psychiatric Psychiatric: Denies anxiety, depression, suicidal ideation or suicidal thoughts Endocrine Endocrinology: Denies polydipsia, polyphagia or polyuria Allergic/Immunologic Allergic/Immunologic ED: Denies mouth swelling, tongue swelling or urticaria EXAM Physical Exam Const Vital Signs: 01/07/21 18:29 Temperature 97.7 F L Temperature Source Temporal Pulse Rate 88 Respiratory Rate 17 Blood Pressure 165/81 H Blood Pressure Mean 109 Pulse Ox 97 Oxygen Delivery Method Room Air Positive well nourished and well developed General Appearance ED: well developed HEENT Reports normocephalic, head/scalp atraumatic, TM's clear and moist mucous membranes HEENT Narrative: Located on the left side of her lower lip and chin are several small discrete vesicles with a red base. Patient removed her dentures I do not see any lesions along the gumline's. I do not see any lesions on the palate or buccal mucosa. Located on the tongue are multiple discrete apparent vesicles. There is no significant swelling noted. She is protecting her airway normally Tympanic Membrane ED: Yes TM's clear Eyes PERRL and EOMs intact bilaterally Neck no lymphadenopathy, supple and no JVD Resp normal respiratory effort and clear to auscultation bilaterally Cardio regular rate, regular rhythm and no murmurs GI normal to inspection, nondistended, normoactive bowel sounds and non-tender Palpation: soft Back/Spine no CVA tenderness and normal ROM Extremity normal to inspection General Extremety ED: Negative for edema General Extremity: Negative for edema Neuro oriented x3 and CN's II-XII intact bilaterally Sensorium / Orientation: alert Motor Exam: strength 5/5 throughout Psych mental status grossly normal Mood & Affect: Negative for depressed or tearful Skin no rashes or lesions noted and no wounds MDM MDM MDM Narrative Medical decision making narrative: This may be shingles. Have her increase her prednisone to 40 mg a day start her on acyclovir as well as viscous lidocaine swish and spit. Follow-up with primary care 1 week Discharge Plan Triage Chief Complaint: Ear Problem ED Provider: Jaden Davison Dx/Rx/DC Orders Clinical Impression: Shingles Instructions: ED Shingles (Herpes Zoster) Prescriptions: New prednisone 20 MG tablet 60 mg PO DAILY Qty: 15 RF: 0 acyclovir 800 MG tablet 800 mg PO 5X/DAY Qty: 35 RF: 0 lidocaine HCl [Lidocaine Viscous] 2 % solution 10 ml mucous membrane Q6H PRN (Reason: pain) Qty: 300 RF: 0 No Action levothyroxine 100 MCG tablet 100 mcg PO DAILY RF: 0 omeprazole 20 MG capsule 20 mg PO DAILY RF: 0 budesonide 0.5 MG/2 ML suspension for nebulization 1 applicatio inhalation BID RF: 0 albuterol sulfate [ProAir HFA] 1 PUFF inhaler 2 puff inhalation Q4H PRN PRN (Reason: Sob &/Or Wheezing) RF: 0 Spiriva with HandiHaler 1 PUFF inhaler 1 puff inhalation DAILY RF: 0 formoterol fumarate [Perforomist] 20 MCG/2 ML solution for nebulization 20 mcg inhalation BID RF: 0 amlodipine 2.5 MG tablet 2.5 mg PO DAILY RF: 0 triamterene-hydrochlorothiazid 1 EACH tablet 1 tab PO DAILY RF: 0 zafirlukast 20 tablet 20 mg PO BID RF: 0 cholecalciferol (vitamin D3) 2,000 UNIT capsule 2,000 unit PO DAILY RF: 0 Turmeric 1 tab PO DAILY RF: 0 multivitamin 1 EACH tablet 1 ea PO DAILY RF: 0 potassium 99 MG tablet 99 mg PO DAILY RF: 0 prednisone 10 mg tablet RF: 0 ipratropium bromide 0.02 % Solution 2.5 ml INHALATION BID RF: 0 Primary Care Provider: Bay Zepeda Referrals: Bay Zepeda DO [Primary Care Provider] - 1 Week if not improving Disposition Disposition: Home, Self Care
[2021-01-07 19:50] VITALS: PULSE 74; RESP 22; O2SAT 97
--- NOTE | 2021-01-07 19:50 | ED.RN ---
THIS NURSE REVIEWED D/C INSTRUCTIONS WITH PT. PT VERBALIZED UNDERSTANDING OF INSTRUCTIONS. PT DENIES FURTHER NEEDS OR QUESTIONS AT THIS TIME. PT ASSISTED TO VEHICLE VIA WC
== END 2021-01-07 19:56 | disposition home or self-care (01) ==
LOC: ED 19:46
PROVIDERS: Emergency Provider Emergency Medicine; PCP Family Medicine
DX: B02.9 Zoster without complications (principal); I10 Essential (primary) hypertension; J44.9 Chronic obstructive pulmonary disease, unspecified; E03.9 Hypothyroidism, unspecified; K21.9 Gastro-esophageal reflux disease without esophagitis; Z79.82 Long term (current) use of aspirin; Z79.52 Long term (current) use of systemic steroids; Z79.899 Other long term (current) drug therapy; Z87.891 Personal history of nicotine dependence
CPT/HCPCS: 99282

== ENCOUNTER 2021-02-08 10:42 | Emergency (ER) | payer BC, MEDICARE, SELFPAY ==
[2021-02-08 10:43] VITALS: BP 178/88; PULSE 97; RESP 22; TEMP 36.6; O2SAT 100; BMI 30.9
[2021-02-08 10:46] VITALS: RESP 22; O2SAT 100
[2021-02-08 11:02] LABS: Absolute Neutrophil Count 10.8 X10^3/uL (2.0-7.7); Basophil# 0.07 X10^3/uL; Basophil% 0.5 % (0-1); Eosinophil# 0.09 X10^3/uL; Eosinophils% 0.6 % (0-5); Hemoglobin 11.5 g/dL (12.0-15.0); Lymphocyte % 12.1 % (19-41); Mean Corp Hgb Conc 31.9 g/dL (32-36); Mean Corpuscular Hgb 28.6 pg (27.0-32.0); Mean Corpuscular Volume 89.6 fL (81-99); Mean Platelet Vol. 9.8 fl (6.2-12.0); Monocyte# 1.22 X10^3/uL; Monocyte% 8.7 % (0-10); NRBC Flagged by Analyzer 0 % (0-5); Neutrophil # 10.82 X10^3/uL (2.7-7.7); Neutrophil % 77.1 % (47-70); Platelet Count 489 K/mm3 (150-450); RBC Distribution Width CV 13.7 % (11.6-14.6); RBC Distribution Width SD 44.8 fl (35.1-43.9); Red Blood Count 4.02 M/mm3 (4.2-5.4)
--- NOTE | 2021-02-08 11:27 | EKG12_ITS ---
Test Reason : Blood Pressure : / mmHG Vent. Rate : 109 BPM Atrial Rate : 109 BPM P-R Int : 120 ms QRS Dur : 090 ms QT Int : 350 ms P-R-T Axes : 072 042 062 degrees QTc Int : 471 ms Sinus tachycardia Nonspecific ST and T wave abnormality Abnormal ECG Confirmed by VERITO BARAHONA, AURELIO ([id number]), avid editor ARMANDO RUSSELL ([id number]) on 02/09/2021 8:53:44 AM Referred By: BIANCA Confirmed By:AURELIO SELLERS MD
--- NOTE | 2021-02-08 11:30 | EDS_ITS ---
HPI History of Present Illness Chief Complaint: Shortness of Breath Informant: patient Narrative Narrative: Patient states she has exacerbation of her COPD. This started about 5 days ago. She states everyone in her family that lives with her has RSV. She is suspicious she may have got this. She has not had fevers. No chest pain in any time. She has had increased wheezing. She also had her immunotherapy injection on Sunday and she normally has exacerbation of her breathing after this. She has a chronic immune deficiency disorder where she gets monthly injections. She was just started on prednisone. She states she has now bringing up a little bit of green sputum. Normally she gets antibiotics for this because of her COPD and immune deficiency. She was on Biaxin and that seemed to help very well for her without causing side effects. She was last on antibiotics a couple months ago. She has no hemoptysis. She states she has all the therapies and meds she needs at home. She does not feel too sick. She does not want to come in the hospital. [facility] Medical History COPD (chronic obstructive pulmonary disease) GERD (gastroesophageal reflux disease) Hypertension Hypothyroid Immune deficiency disorder Home Medications Spiriva with HandiHaler 1 puff INHALATION DAILY 07/22/14 [History Last Taken Unknown] albuterol sulfate [ProAir HFA] 2 puff INHALATION Q4H PRN PRN 07/22/14 [History Last Taken Unknown] budesonide 1 applicatio INHALATION BID 07/22/14 [History Last Taken 07/21/14] formoterol fumarate [Perforomist] 20 mcg INHALATION BID 07/22/14 [History Last Taken 07/21/14] levothyroxine 100 mcg PO DAILY 07/22/14 [History Last Taken 07/22/14] omeprazole 20 mg PO DAILY 07/22/14 [History Last Taken 07/21/14] amlodipine 2.5 mg PO DAILY 12/18/18 [History Last Taken Unknown] triamterene-hydrochlorothiazid 1 tab PO DAILY 12/18/18 [History Last Taken Unknown] Turmeric 1 tab PO DAILY 05/23/19 [History Last Taken Unknown] cholecalciferol (vitamin D3) 2,000 unit PO DAILY 05/23/19 [History Last Taken Unknown] zafirlukast 20 mg PO BID 05/23/19 [History Last Taken Unknown] multivitamin 1 ea PO DAILY 01/21/20 [History Last Taken Unknown] potassium 99 mg PO DAILY 04/27/20 [History Last Taken Unknown] ipratropium bromide 2.5 ml INHALATION BID 11/26/20 [History Last Taken Unknown] prednisone 11/26/20 [History Last Taken Unknown] acyclovir 800 mg PO 5X/DAY #35 tablet 01/07/21 [Rx Last Taken Unknown] lidocaine HCl [Lidocaine Viscous] 10 ml MUCOUS MEMBRANE Q6H PRN #300 ml 01/07/21 [Rx Last Taken Unknown] prednisone 60 mg PO DAILY #15 tablet 01/07/21 [Rx Last Taken Unknown] clarithromycin 500 mg PO BID 7 Days #14 tab 02/08/21 [Rx Last Taken Unknown] Allergy/AdvReac Type Severity Reaction Status Date / Time ampicillin Allergy Other Verified 02/08/21 10:46 aspirin [ASA] Allergy Hives Verified 02/08/21 10:46 cephalexin monohydrate Allergy Hives Verified 02/08/21 10:46 [From Tauntr] Social History Smoking Status: Former smoker substance use type: does not use ROS ROS ED Constitutional Constitutional ED: Denies chills or fever(s) Eyes Eyes: Denies change in vision ENT ENT ED: Denies rhinorrhea or sore throat Cardiovascular Cardiovascular: Denies chest pain Respiratory/Chest Respiratory/Chest: Reports cough, dyspnea and sputum Gastrointestinal Gastrointestinal: Denies abdominal pain, diarrhea, nausea or vomiting Genitourinary Genitourinary ED: Denies dysuria Musculoskeletal Musculoskeletal: Denies arthralgias or myalgias Integumentary Denies rash Neurologic Neurologic: Denies headache(s) Endocrine Endocrinology: Denies polydipsia or polyuria Hematologic/Lymphatic Hematologic/Lymphatic: Denies easy bleeding or easy bruising Allergic/Immunologic Allergic/Immunologic ED: Denies mouth swelling or urticaria EXAM Physical Exam Const Vital Signs: 02/08/21 10:43 02/08/21 10:46 02/08/21 11:42 Temperature 97.8 F Temperature Source Temporal Pulse Rate 97 101 H Respiratory Rate 22 H 22 H 24 H Respiratory Effort Respiratory Depth Respiratory Pattern Tachypnea Blood Pressure 178/88 H Blood Pressure Mean 118 Pulse Ox 100 100 Oxygen Delivery Method Nasal Cannula Nasal Cannula Oxygen Flow Rate (L/min) 2 2 02/08/21 12:23 Temperature Temperature Source Pulse Rate 108 H Respiratory Rate 15 Respiratory Effort Short of Breath Respiratory Depth Shallow Respiratory Pattern Tachypnea Blood Pressure 166/93 H Blood Pressure Mean 117 Pulse Ox Oxygen Delivery Method Oxygen Flow Rate (L/min) Patient sitting in a chair. She looks comfortable. She is on her oxygen that she wears at home. She carries on a normal conversation. She is nontoxic. Positive well nourished and well developed General Appearance ED: well developed and NAD HEENT Reports moist mucous membranes Eyes General Eye ED: Negative for pale conjunctiva or scleral icterus Neck no JVD Resp normal respiratory effort Resp Narrative: Patient has diffuse tight wheezes. However she looks surprisingly comfortable with this. Auscultation: wheezes; Negative for rales or rhonchi Cardio regular rate, regular rhythm and no murmurs GI non-tender Palpation: soft Back/Spine no CVA tenderness and normal to inspection Extremity normal to inspection General Extremety ED: Negative for edema or tenderness General Extremity: Negative for edema Neuro oriented x3 Sensorium / Orientation: alert Psych mental status grossly normal Skin Lesions: no lesions Rashes: no rashes MDM MDM MDM Narrative Medical decision making narrative: Patient is a little bit of a white count. Potassium is low which is a common issue for her. This is replaced. Chest x- ray shows chronic changes. I checked the patient. She looks comfortable. She states she has prednisone at home. She is going to be on 3 tablets today. She has all her inhalers. She wants to go home. We will get her on Biaxin as this is worked well as adjunct of therapy for her. We discussed reasons to return. Lab Data Attestation: I reviewed the patient's lab results. Labs: Laboratory Results - last 24 hr 02/08/21 02/08/21 10:55 10:55 WBC 14.0 H RBC 4.02 L Hgb 11.5 L Hct 36.0 L MCV 89.6 MCH 28.6 MCHC 31.9 L RDW Std Deviation 44.8 H RDW Coeff of Siena 13.7 Plt Count 489 H MPV 9.8 Immature Gran % (Auto) 1.000 H Neut % (Auto) 77.1 H Lymph % (Auto) 12.1 L Desha % (Auto) 8.7 Eos % (Auto) 0.6 Baso % (Auto) 0.5 Absolute Neuts (auto) 10.8 H Absolute Lymphs (auto) 1.70 Nucleated RBC % 0 Sodium 143 Potassium 2.7 L* Chloride 102 Carbon Dioxide 33.0 H Anion Gap 8 BUN 13 Creatinine 0.72 Estim Creat Clear Calc 40.63 Est GFR (MDRD) Af Amer 103 Est GFR (MDRD) Non-Af 85 BUN/Creatinine Ratio 18.0 Glucose 87 Calcium 9.0 Radiography Diagnostic Testing: Clinical Impression(s) from Imaging Studies Chest X-Ray 02/08/21 12:55 IMPRESSION: 1.3 cm nodule in the right upper lobe. This is unchanged. CT scan follow-up is recommended. Electronically Signed: Joseph Curran MD at 13:06 EDT , Service support , Discharge Plan Triage Chief Complaint: Shortness of Breath ED Provider: Reinaldo Godfrey Dx/Rx/DC Orders Clinical Impression: Acute exacerbation of chronic obstructive pulmonary disease Instructions: ED COPD Flare Prescriptions: New clarithromycin 500 mg tablet 500 mg PO BID 7 Days Qty: 14 RF: 0 No Action levothyroxine 100 MCG tablet 100 mcg PO DAILY RF: 0 omeprazole 20 MG capsule 20 mg PO DAILY RF: 0 budesonide 0.5 MG/2 ML suspension for nebulization 1 applicatio inhalation BID RF: 0 albuterol sulfate [ProAir HFA] 1 PUFF inhaler 2 puff inhalation Q4H PRN PRN (Reason: Sob &/Or Wheezing) RF: 0 Spiriva with HandiHaler 1 PUFF inhaler 1 puff inhalation DAILY RF: 0 formoterol fumarate [Perforomist] 20 MCG/2 ML solution for nebulization 20 mcg inhalation BID RF: 0 amlodipine 2.5 MG tablet 2.5 mg PO DAILY RF: 0 triamterene-hydrochlorothiazid 1 EACH tablet 1 tab PO DAILY RF: 0 zafirlukast 20 tablet 20 mg PO BID RF: 0 cholecalciferol (vitamin D3) 2,000 UNIT capsule 2,000 unit PO DAILY RF: 0 Turmeric 1 tab PO DAILY RF: 0 multivitamin 1 EACH tablet 1 ea PO DAILY RF: 0 potassium 99 MG tablet 99 mg PO DAILY RF: 0 prednisone 10 mg tablet RF: 0 ipratropium bromide 0.02 % Solution 2.5 ml INHALATION BID RF: 0 prednisone 20 MG tablet 60 mg PO DAILY Qty: 15 RF: 0 acyclovir 800 MG tablet 800 mg PO 5X/DAY Qty: 35 RF: 0 lidocaine HCl [Lidocaine Viscous] 2 % solution 10 ml mucous membrane Q6H PRN (Reason: pain) Qty: 300 RF: 0 Primary Care Provider: Bay Zepeda Referrals: Bay Zepeda DO [Primary Care Provider] - 3-5 Days if not improving Disposition Disposition: Home, Self Care
[2021-02-08 11:42] VITALS: PULSE 101; RESP 24
[2021-02-08] MEDS: Ipratropium/Albuterol Sulfate 3 ML AMPUL.NEB INHALATION (11:42)
[2021-02-08] MEDS: Albuterol 2.5 MG/3 ML VIAL.NEB. INHALATION (11:42)
[2021-02-08 11:46] LABS: Anion Gap 8 (5-15); BUN 13 mg/dL (7-18); Chloride 102 mmol/L (98-107); Creatinine, Serum 0.72 mg/dL (0.55-1.02); EST Glomerular Filtration Rate 85 mL/min (>60); Est Glom Filt Rate - Afr Amer 103 mL/min (>60); Estimated Creatinine Clearance 40.63 ml/min; Glucose 87 mg/dL (74-106); Potassium 2.7 mmol/L (3.5-5.1); Sodium Level 143 mmol/L (136-145)
[2021-02-08] MEDS: Azithromycin 250 MG Tablet 500 MG PO (12:19)
[2021-02-08] MEDS: MethylPREDNISolone 125 MG/2 ML Vial IV (12:19)
[2021-02-08] MEDS: Potassium Chloride Oral Tablet 20 MEQ 40 MEQ PO (12:19)
[2021-02-08 12:23] VITALS: BP 166/93; PULSE 108; RESP 15
--- NOTE | 2021-02-08 12:55 | RAD_ITS ---
STUDY: X-RAY CHEST REASON FOR EXAM: Female, 70 years old. Cough TECHNIQUE: Single AP portable view of the chest. COMPARISON: Comparison is made with prior study dated 11/26/2020. FINDINGS: EKG electrodes are seen. There is hyperinflation of the lungs consistent with chronic obstructive lung disease (COPD). 1.3 cm nodule in the right upper lobe. This is unchanged. There is no demonstrated pleural abnormality. Normal size heart. Normal mediastinum and paty. Normal visualized pulmonary arteries. Normal visualized aortic arch and descending thoracic aorta. Normal visualized thoracic spine. Marked degree of joint space narrowing and degenerative changes of the right shoulder. There is no demonstrated abnormality of the visualized soft tissue structures of the upper abdomen. RAD/Chest 1 View (Portable) IMPRESSION: 1.3 cm nodule in the right upper lobe. This is unchanged. CT scan follow-up is recommended. Electronically Signed: Joseph Curran MD at 13:06 EDT , Service support ,
[2021-02-08 13:38] VITALS: BP 155/92; PULSE 96; RESP 20; O2SAT 98
== END 2021-02-08 13:39 | disposition home or self-care (01) ==
PROVIDERS: Emergency Provider Emergency Medicine; PCP Family Medicine
DX: J44.1 Chronic obstructive pulmonary disease with (acute) exacerbation (principal); E87.6 Hypokalemia; I10 Essential (primary) hypertension; E03.9 Hypothyroidism, unspecified; D84.9 Immunodeficiency, unspecified; K21.9 Gastro-esophageal reflux disease without esophagitis; Z99.81 Dependence on supplemental oxygen; Z79.899 Other long term (current) drug therapy; Z87.891 Personal history of nicotine dependence
CPT/HCPCS: 71045; 80048; 85025; 93005; 94640; 94760; 96374; 99284; A4216

== ENCOUNTER 2021-02-09 23:12 | Inpatient (IN) | payer BC, MEDICARE, SELFPAY ==
[2021-02-09 23:13] VITALS: BP 218/126; PULSE 132; RESP 35; TEMP 36.8; O2SAT 88; BMI 31.4
[2021-02-09 23:17] VITALS: PULSE 131; RESP 31; O2SAT 96; O2SAT 97
--- NOTE | 2021-02-09 23:20 | RAD_ITS ---
STUDY: X-RAY CHEST REASON FOR EXAM: Female, 70 years old. Cough TECHNIQUE: Portable, upright, AP chest radiograph COMPARISON: 02/08/2021 FINDINGS: The lungs are clear and expanded. Right upper lobe nodule again noted. There is no demonstrated pleural abnormality. Normal size heart. Normal mediastinum and paty. Normal visualized pulmonary arteries. Normal visualized aortic arch and descending thoracic aorta. There is no demonstrated abnormality of the visualized soft tissue structures of the upper abdomen. RAD/Chest 1 View (Portable) IMPRESSION: No acute abnormal cardiopulmonary finding. Electronically Signed: Bay Bowman MD at 0:25 EDT Tel , Service support ,
--- NOTE | 2021-02-09 23:51 | EDS_ITS ---
HPI History of Present Illness Chief Complaint: Shortness of Breath Informant: patient Onset/Context/Timing Onset: Days (2) Context: gradual Timing: Continuous Quality: Positive for Wheezing Worsened by: Coughing Relieved by: - (Sitting up) Associated Symptoms cough and white sputum; Negative for rhinorrhea, ear pain, fever, sore throat, chills, clear sputum, yellow sputum or green sputum Chest Pain: Positive for Tightness Narrative Narrative: Patient presents with shortness of breath that has been getting worse over the past 2 days. Patient states her chest feels like there is a tightness. Patient states it is better when she sits up. Patient states it is worse with coughing. Patient states she is coughing up some white sputum. Patient denies any rhinorrhea or sore throat. Patient denies any fevers or chills. Patient does admit to a headache. Patient states that several family members have had upper respiratory infections. Patient has not been diagnosed with Covid. Patient states that none of her family members have been diagnosed with Covid. [facility] Medical History (Updated 02/10/21 @ 04:32 by Tesha Canela) COPD (chronic obstructive pulmonary disease) COPD (chronic obstructive pulmonary disease) Former smoker Former smoker GERD (gastroesophageal reflux disease) Hypertension Hypertension Hypothyroid Hypothyroidism Immune deficiency disorder On home oxygen therapy Osteoporosis Home Medications Spiriva with HandiHaler 2 puff INHALATION DAILY 07/22/14 [History Last Taken Unknown] albuterol sulfate [ProAir HFA] 2 puff INHALATION Q4H PRN PRN 07/22/14 [History Last Taken Unknown] budesonide 1 applicatio INHALATION BID 07/22/14 [History Last Taken 07/21/14] formoterol fumarate [Perforomist] 20 mcg INHALATION BID 07/22/14 [History Last Taken 07/21/14] levothyroxine 100 mcg PO DAILY 07/22/14 [History Last Taken 07/22/14] omeprazole 20 mg PO DAILY 07/22/14 [History Last Taken 07/21/14] amlodipine 10 mg PO DAILY 12/18/18 [History Last Taken Unknown] cholecalciferol (vitamin D3) 2,000 unit PO DAILY 05/23/19 [History Last Taken Unknown] zafirlukast 20 mg PO BID 05/23/19 [History Last Taken Unknown] multivitamin 1 ea PO DAILY 01/21/20 [History Last Taken Unknown] ipratropium bromide 2.5 ml INHALATION BID 11/26/20 [History Last Taken Unknown] prednisone 10 mg PO DAILY 11/26/20 [History Last Taken Unknown] clarithromycin 500 mg PO BID 02/10/21 [History Last Taken Unknown] Allergy/AdvReac Type Severity Reaction Status Date / Time ampicillin Allergy stomach Verified 02/10/21 03:09 issues aspirin [ASA] Allergy Hives Verified 02/09/21 23:13 cephalexin monohydrate Allergy Hives Verified 02/09/21 23:13 [From Keflex] Family History (Updated 02/10/21 @ 04:[address] Kiana Haque MD) Mother Hypertension Father Rheumatoid arthritis Heart disease Surgical History (Updated 02/10/21 @ 04:32 by Tesha Canela) History of appendectomy History of cholecystectomy Hx of appendectomy Hx of cholecystectomy Hx of hysterectomy Hx of tonsillectomy Social History (Updated 02/10/21 @ 04:[address] Kiana Haque MD) household members: spouse Smoking Status: Former smoker how long ago did patient quit smoking: Quit 2008, prior 1-1.5 ppd since youth. alcohol intake: never substance use type: does not use ROS ROS ED Constitutional Constitutional ED: Denies chills or fever(s) Eyes Eyes: Denies blurry vision or change in vision ENT ENT ED: Denies rhinorrhea or sore throat Cardiovascular Cardiovascular: Reports chest pain; Denies palpitations Respiratory/Chest Respiratory/Chest: Reports cough and dyspnea Gastrointestinal Gastrointestinal: Denies nausea or vomiting Genitourinary Genitourinary ED: Denies dysuria or hematuria Musculoskeletal Musculoskeletal: Denies back pain or neck pain Integumentary Denies abscess or rash Neurologic Neurologic: Reports headache(s); Denies weakness Allergic/Immunologic Allergic/Immunologic ED: Denies mouth swelling or urticaria EXAM Physical Exam Const Vital Signs: 02/09/21 23:13 02/09/21 23:17 02/10/21 00:26 Temperature 98.3 F Temperature Source Temporal Pulse Rate 132 H 131 H 111 H Respiratory Rate 35 H 31 H 36 H Respiratory Effort Labored Pursed Lip Respiratory Depth Shallow Respiratory Pattern Tachypnea Blood Pressure 218/126 H 166/88 H Blood Pressure Mean 156 114 Pulse Ox 88 96 98 Oxygen Delivery Method Nasal Cannula Nasal Cannula Nasal Cannula Oxygen Flow Rate (L/min) 3 6 4 Positive well nourished and well developed General Appearance ED: well developed HEENT Reports moist mucous membranes Neck supple and no JVD Resp Auscultation: diminished lung sounds diffuse Cardio regular rhythm and no murmurs Rate: tachycardic GI normal to inspection, nondistended, normoactive bowel sounds and non-tender Palpation: soft Extremity normal to inspection General Extremety ED: Negative for edema or tenderness General Extremity: Negative for edema Neuro oriented x3, CN's II-XII intact bilaterally and no sensory deficits noted Sensorium / Orientation: alert Motor Exam: strength 5/5 throughout Psych mental status grossly normal Skin no rashes or lesions noted MDM MDM MDM Narrative Medical decision making narrative: Portable 1 view chest x-ray was obtained. On my interpretation, lung hutchins show chronic changes. There is normal cardiac silhouette. Bony thorax is normal. There is no acute process noted. Radiologist also interpreted the x-ray and agrees. EKG was obtained. On my interpretation, it showed a sinus tachycardia with a rate of 124. ME interval, QRS interval, and QTc intervals were all normal. [place] was normal. There are nonspecific ST-T wave changes. CBC shows a leukocytosis of 19.3. Comprehensive metabolic profile showed a mild hypokalemia 3.1. Lactate was normal. Initial high-sensitivity troponin was normal. COVID-19 rapid antigen was obtained and was negative. Patient was initially ordered albuterol inhaler. Patient does not want this. Case was discussed with the hospitalist. She will admit the patient for COPD exacerbation. Patient understood and was agreeable with the plan. All questions were answered. Lab Data Attestation: I reviewed the patient's lab results. Labs: Laboratory Results - last 24 hr 02/10/21 02/10/21 02/10/21 00:11 00:11 00:11 WBC 19.3 H RBC 4.14 L Hgb 11.8 L Hct 36.4 L MCV 87.9 MCH 28.5 MCHC 32.4 RDW Std Deviation 44.7 H RDW Coeff of Siena 13.8 Plt Count 561 H MPV 9.7 Immature Gran % (Auto) 1.000 H Neut % (Auto) 86.0 H Lymph % (Auto) 5.1 L [place] % (Auto) 7.7 Eos % (Auto) 0.0 Baso % (Auto) 0.2 Absolute Neuts (auto) 16.6 H Absolute Lymphs (auto) 0.98 Nucleated RBC % 0 Sodium 139 Potassium 3.1 L Chloride 101 Carbon Dioxide 32.0 Anion Gap 6 BUN 20 H Creatinine 0.89 Estim Creat Clear Calc 45.65 Est GFR (MDRD) Af Amer 81 Est GFR (MDRD) Non-Af 67 BUN/Creatinine Ratio 22.4 H Glucose 116 H Lactic Acid 0.8 Calcium 9.2 Magnesium Total Bilirubin 0.30 AST 32 ALT 29 Alkaline Phosphatase 118 H Troponin I High Sens 33 Total Protein 8.8 H Albumin 3.4 Globulin 5.4 H Albumin/Globulin Ratio 0.6 L 02/10/21 00:11 WBC RBC Hgb Hct MCV MCH MCHC RDW Std Deviation RDW Coeff of Siena Plt Count MPV Immature Gran % (Auto) Neut % (Auto) Lymph % (Auto) [place] % (Auto) Eos % (Auto) Baso % (Auto) Absolute Neuts (auto) Absolute Lymphs (auto) Nucleated RBC % Sodium Potassium Chloride Carbon Dioxide Anion Gap BUN Creatinine Estim Creat Clear Calc Est GFR (MDRD) Af Amer Est GFR (MDRD) Non-Af BUN/Creatinine Ratio Glucose Lactic Acid Calcium Magnesium 2.1 Total Bilirubin AST ALT Alkaline Phosphatase Troponin I High Sens Total Protein Albumin Globulin Albumin/Globulin Ratio ABG Data ABG results: ABG 02/10/21 02:32 Specimen Type ART Sample Site L Radial pH 7.40 Bicarbonate Actual 30.9 H Total CO2 32 Base Excess 6 H O2 Saturation 96 ABG pCO2 50.2 H ABG pO2 84 Matias Test Positive O2 Delivery Device Cannula Liter Flow 4.0 Radiography Chest X-Ray - ED: 1 View, Read by ED Physician, Read by Radiologist and Chronic Changes Diagnostic Testing: Clinical Impression(s) from Imaging Studies Chest X-Ray 02/09/21 23:20 IMPRESSION: No acute abnormal cardiopulmonary finding. Electronically Signed: Bay Bowman MD at 0:25 EDT Tel , Service support , EKG Initial EKG: Attestation: I personally reviewed and interpreted this EKG as follows: Interpretation: Sinus Tachycardia (124) and Non-Specific ST Changes Prior: Unchanged (02/08/2021) Treatment and Re-Evaluation Vital Sign Attestation:: Vital signs reviewed prior to admission. Blood pressure is improving. Heart rate is improving. Respiratory rate is improving. Discharge Plan Dx/Rx/DC Orders Clinical Impression: Acute exacerbation of chronic obstructive pulmonary disease Disposition Disposition: Acute Care Hospital [facility] Discharge Date/Time: 02/10/21 02:56
[2021-02-10] VITALS (23 sets, daily range): BP systolic 157–194; BP diastolic 88–112; PULSE 83–126; RESP 12–36; TEMP 36.4–38; O2SAT 93–100; BMI 31.1
[2021-02-10 00:21] LABS: Absolute Lymphocyte Count 0.98 X10^3/uL (0.83-4.51); Absolute Neutrophil Count 16.6 X10^3/uL (2.0-7.7); Basophil# 0.04 X10^3/uL; Basophil% 0.2 % (0-1); Hematocrit 36.4 % (37-47); Hemoglobin 11.8 g/dL (12.0-15.0); Lymphocyte # 0.98 X10^3/ul (0.83-4.51); Lymphocyte % 5.1 % (19-41); Mean Corp Hgb Conc 32.4 g/dL (32-36); Mean Corpuscular Hgb 28.5 pg (27.0-32.0); Mean Corpuscular Volume 87.9 fL (81-99); Mean Platelet Vol. 9.7 fl (6.2-12.0); Monocyte# 1.48 X10^3/uL; Monocyte% 7.7 % (0-10); NRBC Flagged by Analyzer 0 % (0-5); Neutrophil # 16.55 X10^3/uL (2.7-7.7); Platelet Count 561 K/mm3 (150-450); RBC Distribution Width CV 13.8 % (11.6-14.6); RBC Distribution Width SD 44.7 fl (35.1-43.9); Red Blood Count 4.14 M/mm3 (4.2-5.4); White Blood Count 19.3 K/mm3 (4.4-11.0)
[2021-02-10 00:45] LABS: ALB/GLOB Ratio 0.6 RATIO (0.9-2.4); AST(SGOT) 32 U/L (15-37); Alanine Aminotransfer ALT/SGPT 29 U/L (13-56); Albumin, Serum 3.4 g/dL (3.2-5.0); Alkaline Phosphatase 118 U/L (45-117); Anion Gap 6 (5-15); BUN 20 mg/dL (7-18); BUN/Creat Ratio 22.4 RATIO (10-20); Calcium,Total 9.2 mg/dL (8.5-10.1); Chloride 101 mmol/L (98-107); Creatinine, Serum 0.89 mg/dL (0.55-1.02); EST Glomerular Filtration Rate 67 mL/min (>60); Est Glom Filt Rate - Afr Amer 81 mL/min (>60); Estimated Creatinine Clearance 45.65 ml/min; Globulin 5.4 g/dL (2.2-4.2); Glucose 116 mg/dL (74-106); Potassium 3.1 mmol/L (3.5-5.1); Protein, Total 8.8 g/dL (6.4-8.2); Sodium Level 139 mmol/L (136-145); Troponin-I HS 33 pg/mL (3.0-54.0)
[2021-02-10 01:22] LABS: Lactic Acid 0.8 mmol/L (0.4-1.9)
--- NOTE | 2021-02-10 02:49 | HP.PCM.HOS_ITS ---
HPI - General General Date of Admission: 02/10/21 Date of Service: 02/10/21 Chief Complaint: Dyspnea, wheezing HPI Narrative The patient is a 70 y/o F w/ PMHx: Chronic COPD w/ Chronic Hypoxic Respiratory Failure, Former Tobacco use, HTN, Hypothyroidism, GERD, Immune deficiency disorder who presents to the [facility] ED on 02/10/21 with history of approximately 1 week of increasing fatigue, malaise, dry cough and wheezing with chest tightness prompting initial ED visitation on 02/08/2021 reporting that several members of her family had an upper respiratory viral infection with treatment with oral steroids and Biaxin initially feeling improved with discharge to home however patient since then has progressively worsening with ongoing increasing chest tightness, dyspnea and wheezing despite these interventions and home aerosol treatments. Patient prior to this had denied any fevers or chills. Work-up in the ED included T 97.8, heart rate 97, BP 178/88, respiratory rate 22, 100% on 2 L nasal cannula however most recent vital signs with patient noted to be 94% on 4 L nasal cannula, CBC with WBC 19.3, hemoglobin 0.8, platelet 561 with left shift although patient has been on steroid regimen, CMP with potassium 3.1, BUN/creatinine 20/0.89, glucose 116, lactic acid 0.8, chest x-ray with no acute cardiopulmonary findings, rapid Covid antigen negative, blood culture x2 pending per ED. [facility] Medical History (Updated 02/10/21 @ 03:[address] Efra English, DO) COPD (chronic obstructive pulmonary disease) Former smoker GERD (gastroesophageal reflux disease) Hypertension Hypothyroid Immune deficiency disorder Home Medications Spiriva with HandiHaler 2 puff INHALATION DAILY 07/22/14 [History Last Taken Unknown] albuterol sulfate [ProAir HFA] 2 puff INHALATION Q4H PRN PRN 07/22/14 [History Last Taken Unknown] budesonide 1 applicatio INHALATION BID 07/22/14 [History Last Taken 07/21/14] formoterol fumarate [Perforomist] 20 mcg INHALATION BID 07/22/14 [History Last Taken 07/21/14] levothyroxine 100 mcg PO DAILY 07/22/14 [History Last Taken 07/22/14] omeprazole 20 mg PO DAILY 07/22/14 [History Last Taken 07/21/14] amlodipine 10 mg PO DAILY 12/18/18 [History Last Taken Unknown] cholecalciferol (vitamin D3) 2,000 unit PO DAILY 05/23/19 [History Last Taken Unknown] zafirlukast 20 mg PO BID 05/23/19 [History Last Taken Unknown] multivitamin 1 ea PO DAILY 01/21/20 [History Last Taken Unknown] ipratropium bromide 2.5 ml INHALATION BID 11/26/20 [History Last Taken Unknown] prednisone 10 mg PO DAILY 11/26/20 [History Last Taken Unknown] clarithromycin 500 mg PO BID 02/10/21 [History Last Taken Unknown] Allergy/AdvReac Type Severity Reaction Status Date / Time ampicillin Allergy stomach Verified 02/10/21 03:09 issues aspirin [ASA] Allergy Hives Verified 02/09/21 23:13 cephalexin monohydrate Allergy Hives Verified 02/09/21 23:13 [From Keflex] Family History (Updated 02/10/21 @ 04:[address] Kiana Haque MD) Mother Hypertension Father Rheumatoid arthritis Heart disease Surgical History (Updated 02/09/21 @ 23:[address] Efra English, ) Hx of appendectomy Hx of cholecystectomy Hx of hysterectomy Hx of tonsillectomy Social History (Updated 02/10/21 @ 04:[address] Kiana Haque MD) household members: spouse Smoking Status: Former smoker how long ago did patient quit smoking: Quit 2008, prior 1-1.5 ppd since youth. alcohol intake: never substance use type: does not use ROS ROS Narrative Admission Review of Systems: CONSTITUTIONAL: No weight loss, fever, chills, + weakness or fatigue. HEENT: Eyes: No visual loss, blurred vision, double vision or yellow sclerae. Ears, Nose, Throat: No hearing loss, sneezing, congestion, runny nose or sore throat. SKIN: No rash or itching, lesions, wounds. CARDIOVASCULAR: No chest pain, chest pressure or chest discomfort, palpitations, edema, orthopnea, syncopal events. RESPIRATORY: + shortness of breath, cough without marked sputum, wheezing, No hemoptysis. GASTROINTESTINAL: No anorexia, nausea, vomiting or diarrhea, abdominal pain, melena, BRBPR. GENITOURINARY: No dysuria, frequency, urgency or retention. NEUROLOGICAL: No headache, dizziness, syncope, paralysis, ataxia, numbness or tingling in the extremities, focal weakness, change in bowel or bladder control, seizure. MUSCULOSKELETAL: + muscle, back pain, joint pain or stiffness. HEMATOLOGIC: No anemia, bleeding or bruising. LYMPHATICS: No enlarged nodes. No history of splenectomy. PSYCHIATRIC: No history of depression or anxiety. ENDOCRINOLOGIC: No reports of sweating, cold or heat intolerance. No polyuria or polydipsia. ALLERGIES: No history of asthma, hives, eczema or rhinitis. Vital Signs Vital Signs Vital Signs: 02/09/21 23:13 02/09/21 23:17 02/10/21 00:26 Temperature 98.3 F Temperature Source Temporal Pulse Rate 132 H 131 H 111 H Respiratory Rate 35 H 31 H 36 H Respiratory Effort Labored Pursed Lip Respiratory Depth Shallow Respiratory Pattern Tachypnea Blood Pressure 218/126 H 166/88 H Blood Pressure Mean 156 114 Pulse Ox 88 96 98 Oxygen Delivery Method Nasal Cannula Nasal Cannula Nasal Cannula Oxygen Flow Rate (L/min) 3 6 4 Weight Weight: 166 lb 0.129 oz Body Mass Index (BMI) 31.4 Physical Exam Narrative Physical Examination: General: Awake, alert, oriented x 3 and cooperative, seated upright in the ED bedside, fatigued, evidence of increased work of breathing. Skin: Normal color, normal turgor, no icterus, no cyanosis. HEENT: AT/NC, EOMI, PERRLA, dry MM, no carotid bruits or JVD noted. Lungs: Severely diminished, tight, increased respiratory rate and some accessory muscle usage, occasional end expiratory wheeze, no rales or rhonchi. Heart: Tachycardic with regular rhythm; no gallop, rub audible. Abdomen: Soft, obese, NTTP, ND, normal BS, no HSM. Extremities: No cyanosis, clubbing, or edema. Neurological: Patient awake, alert, oriented as noted, cognitive function intact; pupils equally reactive to light and accommodation, cranial nerves II- XII grossly normal, moving all 4 extremities, no focal deficits, strength severely global decrease secondary to acute presentation. Psychiatric: Affect appears fatigued, evidence of respiratory compromise, no acute evidence of depressive or anxiety feelings. Results Lab / Micro Data Result Diagrams: 02/10/21 00:11 02/10/21 00:11 Labs: Laboratory Results - last 24 hr 02/10/21 00:11: WBC 19.3 H, RBC 4.14 L, Hgb 11.8 L, Hct 36.4 L, MCV 87.9, MCH 28.5, MCHC 32.4, RDW Std Deviation 44.7 H, RDW Coeff of Siean 13.8, Plt Count 561 H, MPV 9.7, Immature Gran % (Auto) 1.000 H, Neut % (Auto) 86.0 H, Lymph % (Auto) 5.1 L, Maries % (Auto) 7.7, Eos % (Auto) 0.0, Baso % (Auto) 0.2, Absolute Neuts (auto) 16.6 H, Absolute Lymphs (auto) 0.98, Nucleated RBC % 0 02/10/21 00:11: Sodium 139, Potassium 3.1 L, Chloride 101, Carbon Dioxide 32.0, Anion Gap 6, BUN 20 H, Creatinine 0.89, Estim Creat Clear Calc 45.65, Est GFR (MDRD) Af Amer 81, Est GFR (MDRD) Non-Af 67, BUN/Creatinine Ratio 22.4 H, Glucose 116 H, Calcium 9.2, Total Bilirubin 0.30, AST 32, ALT 29, Alkaline Phosphatase 118 H, Troponin I High Sens 33, Total Protein 8.8 H, Albumin 3.4, Globulin 5.4 H, Albumin/Globulin Ratio 0.6 L 02/10/21 00:11: Lactic Acid 0.8 Micro: Microbiology 02/10/21 00:11 Nasal Secretion SARS-CoV-2 Antigen (Rapid) - Final Radiology Impression Chest X-Ray 02/09/21 23:20 IMPRESSION: No acute abnormal cardiopulmonary finding. Electronically Signed: Bay Bowman MD at 0:25 EDT Tel , Service support , Assessment & Plan Assessment/Plan (1) Acute exacerbation of chronic obstructive pulmonary disease: PLAN: The patient is a 70 y/o F w/ PMHx: Chronic COPD w/ Chronic Hypoxic Respiratory Failure, Former Tobacco use, HTN, Hypothyroidism, GERD, Immune deficiency disorder who presents to the [facility] ED on 02/10/21 with history of approximately 1 week of increasing fatigue, malaise, dry cough and wheezing with chest tightness prompting initial ED visitation on 02/08/2021 reporting that several members of her family had an upper respiratory viral infection with treatment with oral steroids and Biaxin initially feeling improved with di yannickrge to home however patient since then has progressively worsening with ongoing increasing chest tightness, dyspnea and wheezing. 1. Acute on chronic COPD exacerbation w/ Acute on Chronic Hypoxic Respiratory Failure: CXR w/ chronic changes, CBC on admission w/ WBC 19.3 with left shift however patient had been on steroids but upon floor transition patient did have onset low-grade fever of note. Will admit to medical surgical floor on telemetry and given significant increased work of breathing and accessory muscle usage requesting ABG and initiation of BiPAP to assist in improvement, maintain on oxygen with wean as tolerated to home oxygen supplementation, continue ATC duonebs, PRN albuterol, IV methylprednisolone, HOB, IS parameters, IV Levaquin with pending sputum cultures, procalcitonin pending. Pending response to these interventions, may consider Pulmonary consultation. 2. Hypokalemia: Admission K+ 3.1, magnesium level requested, supplementation given, repeat level in AM. 3. Hypertension: Continue home regimen including amlodipine with hold parameters as needed, PRN hydralazine. 4. Obesity: Weight loss and lifestyle changes encouraged. 5. GERD: We will continue patient home PPI. 6. Hypothyroidism: We will continue patient home Synthroid regimen. 7. Former tobacco use: Encourage continued tobacco cessation. 8. DVT prophylaxis: SCDs, Lovenox. 9. CODE status: Discussed CODE status at length including difference between FULL code, DNR-CCA and DNR-CC status. Following discussions about the differences in these status, requested Full Code status. Discussed BIPAP usage and patient amenable. Advanced Care Planning Face to Face Time: 16 minutes. Charges/Coding Visit Charges Inpatient E&M: 62324 Init Hosp L3 Procedures Hospitalists Procedures: 74759 Advncd Care Plan 30 Min
--- NOTE | 2021-02-10 03:28 | NURSING ---
Pt only got 1 dose of the Moderna vaccine. She had a lot of problems with it so MD advised against getting 2nd shot.
[2021-02-10 03:38] LABS: Magnesium 2.1 mg/dL (1.6-2.6)
[2021-02-10] MEDS: Ipratropium/Albuterol Sulfate 3 ML AMPUL.NEB INHALATION ×4 (03:44→15:18)
[2021-02-10] MEDS: MethylPREDNISolone 125 MG/2 ML Vial IV (04:18)
[2021-02-10] MEDS: 0.9% Saline Lock 10 ML Syringe IV ×5 (04:18→23:02)
[2021-02-10] MEDS: Potassium Chloride Oral Tablet 20 MEQ 40 MEQ PO (04:18)
[2021-02-10] MEDS: LORazepam 2 MG/ML Syringe 0.5 MG IV (04:53)
[2021-02-10] MEDS: levoFLOXacin IV 500 MG/100 ML BAG 100 MG IV (04:56)
[2021-02-10] MEDS: Albuterol 2.5 MG/3 ML VIAL.NEB. INHALATION (05:05)
[2021-02-10 05:59] LABS: Allen Test Positive; Base Excess 6 mmol/L (-2 to +2); Bicarbonate 30.9 mmol/L (22-26); Blood Gas Specimen Type ART; O2 Delivery Device Cannula; PO2 84 mmHG (75-100); SITE L Radial; SO2 96 % (95-99); Total Carbon Dioxide 32 mmol/L; pCO2 50.2 mmHg (35-45)
[2021-02-10] MEDS: Levothyroxine 100 MCG Tablet PO (06:35)
[2021-02-10] MEDS: hydrALAZINE 20 MG/ML Vial 10 MG IV (06:39)
--- NOTE | 2021-02-10 07:38 | CPS ---
Pt sitting in chair on 5lpm nasal cannula. Pt was offered to be placed back on Bipap to help with her S.O.B but pt refused, Nurse aware.
[2021-02-10] MEDS: Triamterene 37.5MG/Hctz 25MG Capsule 1 CAP PO (09:56)
[2021-02-10] MEDS: amLODIPine 2.5 MG Tablet PO (09:56)
[2021-02-10] MEDS: Pantoprazole Sodium 20 MG Tablet PO (09:57)
[2021-02-10] MEDS: Enoxaparin 40 MG/0.4 ML Syringe SC (09:57)
[2021-02-10] MEDS: NYSTATIN 500,000 UNIT/5 ML UDC 500000 UNIT PO ×4 (09:57→23:02)
[2021-02-10 11:13] LABS: Absolute Lymphocyte Count 0.37 X10^3/uL (0.83-4.51); Absolute Neutrophil Count 15.5 X10^3/uL (2.0-7.7); Basophil# 0.03 X10^3/uL; Basophil% 0.2 % (0-1); Hematocrit 35.8 % (37-47); Hemoglobin 11.8 g/dL (12.0-15.0); Lymphocyte # 0.37 X10^3/ul (0.83-4.51); Lymphocyte % 2.3 % (19-41); Mean Corpuscular Hgb 28.5 pg (27.0-32.0); Mean Corpuscular Volume 86.5 fL (81-99); Mean Platelet Vol. 9.7 fl (6.2-12.0); Monocyte# 0.29 X10^3/uL; Monocyte% 1.8 % (0-10); NRBC Flagged by Analyzer 0 % (0-5); Neutrophil # 15.46 X10^3/uL (2.7-7.7); Neutrophil % 94.5 % (47-70); POSITIVE DIFFERENTIAL YES; Platelet Count 509 K/mm3 (150-450); RBC Distribution Width CV 13.7 % (11.6-14.6); RBC Distribution Width SD 43.5 fl (35.1-43.9); Red Blood Count 4.14 M/mm3 (4.2-5.4); White Blood Count 16.4 K/mm3 (4.4-11.0)
[2021-02-10 11:14] LABS: Differential Indicated SCAN CRITERIA MET
--- NOTE | 2021-02-10 11:32 | CASEMGMT ---
Addendum entered by Sofia Erickson 02/10/21 13:06: TC to [email or web address] to verify pt O2 script, left message requesting returned call. Original Note: HEMANT LEUNG Assessment: Face to Face with pt for initial transition planning/care coordination assessment. RN XOCHITL introduced self and role at [facility], pt voices understanding and consents to assessment. Pt is A/O x4 and answers all questions appropriately at this time. Pt leaning out of chair onto the bed with head down as she states she is having difficulty breathing. Pt states she was just put on the airvo instead of NC and it helps her. Care providers, pharmacy, and demographics verified/updated. Admitting Dx: acute COPD exac PCP:Katelyn Specialists:Manisha and jarad Lozada from [facility]. Pt states she was scheduled to have a lung bx on Sunday by . Preferred Pharmacy: [facility] Retail while inpatient Insurance: [employer] [facility] Prescription Benefit: yes LW/HPOA: Pt denies having a LW/DPOA and denies need for info regarding AD. LNOK: Danial Briggs, ; Erika Garduno, mother Living Arrangements: Pt lives with and daughter and 2 grandchildren in a two story house with 3 steps to enter. Pt states she has 15 steps to go up to the bathroom in her home. Pt reports she was I in ADL's prior to this hospitalization. Transportation: Pt drives self and denies concerns with transportation. DME/HHC/SNF: Pt states she has home O2 at 2L [place] cont through [email or web address], nebulizer and a walker that she does not use. Pt denies hx of HHC or SNF stays. Discussed options of having HHC once dc'd. Pt states she wants to see how things go. Pt states no concerns with going home at time of dc. Pt states no further concerns/needs. CM to follow. Advised pt to ask CM if any further question/concerns/needs arise, voices understanding. Pt Goal: Home Plan: Home, will follow for increase need in home O2 or any HHC needs. Pt screened with [facility] Palliative Care Screening Tool due to COPD dx, pt meets criteria. Referral called at this time. TC to [facility] is aware. Unable to fax info at this time d/t internet connections.
[2021-02-10 11:40] LABS: ALB/GLOB Ratio 0.6 RATIO (0.9-2.4); AST(SGOT) 33 U/L (15-37); Alanine Aminotransfer ALT/SGPT 32 U/L (13-56); Albumin, Serum 3.1 g/dL (3.2-5.0); Alkaline Phosphatase 117 U/L (45-117); Anion Gap 6 (5-15); BUN 21 mg/dL (7-18); BUN/Creat Ratio 22.9 RATIO (10-20); Calcium,Total 9.2 mg/dL (8.5-10.1); Chloride 103 mmol/L (98-107); Creatinine, Serum 0.92 mg/dL (0.55-1.02); EST Glomerular Filtration Rate 65 mL/min (>60); Est Glom Filt Rate - Afr Amer 78 mL/min (>60); Estimated Creatinine Clearance 44.16 ml/min; Globulin 5.4 g/dL (2.2-4.2); Glucose 183 mg/dL (74-106); Potassium 3.2 mmol/L (3.5-5.1); Protein, Total 8.5 g/dL (6.4-8.2); Sodium Level 139 mmol/L (136-145)
[2021-02-10 11:57] LABS: Procalcitonin < 0.04 ng/mL (0.00-0.09)
--- NOTE | 2021-02-10 13:11 | EX.NTREPO ---
Medical Nutrition Therapy - History Nutrition Services has been consulted to:: Conduct nutrition counseling Current diet/nutrition support order:: admission protocol - Anthropometric Measurements Height:: 5 ft 1 in Weight:: 165 lb 2 oz Body Mass Index (BMI):: 31.1 - Relevant Labs Relevant Labs:: WBC 16.4 K/mm3 (4.4-11.0) H 02/10/21 10:50 RBC 4.14 M/mm3 (4.2-5.4) L 02/10/21 10:50 Hgb 11.8 g/dL (12.0-15.0) L 02/10/21 10:50 Hct 35.8 % (37-47) L 02/10/21 10:50 RDW Std Deviation 44.7 fl (35.1-43.9) H 02/10/21 00:11 Plt Count 509 K/mm3 (150-450) H 02/10/21 10:50 Immature Gran % (Auto) 1.200 % (0.0-0.9) H 02/10/21 10:50 Neut % (Auto) 94.5 % (47-70) H 02/10/21 10:50 Lymph % (Auto) 2.3 % (19-41) L 02/10/21 10:50 Absolute Neuts (auto) 15.5 X10^3/uL (2.0-7.7) H 02/10/21 10:50 Absolute Lymphs (auto) 0.37 X10^3/uL (0.83-4.51) L 02/10/21 10:50 Potassium 3.2 mmol/L (3.5-5.1) L 02/10/21 10:50 BUN 21 mg/dL (7-18) H 02/10/21 10:50 BUN/Creatinine Ratio 22.9 RATIO (10-20) H 02/10/21 10:50 Glucose 183 mg/dL (74-106) H 02/10/21 10:50 Alkaline Phosphatase 118 U/L (45-117) H 02/10/21 00:11 Total Protein 8.5 g/dL (6.4-8.2) H 02/10/21 10:50 Albumin 3.1 g/dL (3.2-5.0) L 02/10/21 10:50 Globulin 5.4 g/dL (2.2-4.2) H 02/10/21 10:50 Albumin/Globulin Ratio 0.6 RATIO (0.9-2.4) L 02/10/21 10:50 - Nutrition Diagnosis: Intake Problem Inadequate Energy Intake Intake Problem - Etiology: suspected related to increased energy needs for acute COPD exacerbation and patient reports of decreased appetite Intake Problem - Signs/Symptoms: as evidenced by intake yet to be established at this time. Status: Active Problem - Protein Calorie Malnutrition Evidence of Malnutrition Exists: No - Nutrition Intervention Nutrition Prescription: [id number] kcals, 70-85 g pro, 1800 mL fluid/ day. - Food / Nutrient Delivery Interventions Summary of nutrition intervention:: Nutrition counseling provided Nutrition education provided?: Yes Nutrition Counseling: discussion on importance of protein and balanced food groups in diet, smaller meals more often and tips for intake with COPD. RDN offered encouragement for [facility] Why[facility] program to support physician recommendation for weight loss and provided Why[facility] rack card. Answered questions on use of oral nutrition supplements/ Ensure - aMrika states does not care for taste of Ensure from bottle room temp or refrigerator. Patient currently being fitted for Airvo during interview, Dangelo entering for visit, dghter on phone at [facility] entrance and unable to visit with visitor limit; Marika discontinued engaging with RDN. - MNT Monitoring Active Nutrition Patient: Yes Nutrition Status: Requires Follow Up 7-9 Days
--- NOTE | 2021-02-10 15:06 | PCM.CONS.P ---
Assessment & Plan Assessment/Plan (1) Immune deficiency disorder: (2) COPD (chronic obstructive pulmonary disease): (3) GERD (gastroesophageal reflux disease): (4) HTN (hypertension): (5) Obesity (BMI 30.0-34.9): (6) Acute exacerbation of chronic obstructive pulmonary disease: (7) Dyspnea: PLAN: CYNDIE BRIGGS, is a 70 F referred to [facility] for multiple hospital admissions for exacerbation of COPD currently diagnosed with RSV. Palliative was discussed and patient will decide at discharge if Palliative is needed. Plan would be as follows: 1) RSV, COPD exacerbation, dyspnea; Palliative will monitor respiratory status at visits and compliance with medication and inhalers along with education of early reporting of symptoms to stay out of the hospital. Palliative will be able to follow and advise if respiratory status worsens and manage with Palliative medications for dyspnea and refer to hospice if ever appropriate. 2) Immune deficiency disorder: concern voiced about extended family living with patient with immunocompromised status and responsibility of caring for young children. Will continue discussion or alternatives to protect patient from further compromise. 3) Obesity/HTN/GERD/ Hypothyroidism: Complicates overall care, management and prognosis. Defer to PCP/ specialist for management Thank you for the opportunity to participate in this patient's care, please do not hesitate to contact [facility] with any further questions or concerns. Palliative direct line is [phone]. We will follow have liaison call patient at discharge to see if she would like Palliative services to follow care at home. Greater than 50% of F2F visit dedicated to education and counseling of palliative care services, medications, comorbid conditions and potential assistance with management, and plan of care moving forward. Start time: 2:45PM End time: 3:54PM HPI Consult Data Date of Consult: 02/10/21 HPI Narrative HPI Narrative: CYNDIE BRIGGS, is a 70 F referred to [facility] for multiple hospital admissions for exacerbation of COPD. Patient is a previous smoker and see PMH listed below: Most recently was 02/08/21 with worsening fatigue, shortness of breath, chest tightness, productive cough with white sputum and headache. Denied any accompanying fever. Several members of her family have had similar symptoms but treated with oral steroids and Biaxin. In the ER testing showed CBC shows a leukocytosis of 19.3. Comprehensive metabolic profile showed a mild hypokalemia 3.1. Lactate was normal. Initial high-sensitivity troponin was normal. COVID-19 rapid antigen was negative. EKG obtained in the ER sinus tachycardia with a rate of 124. IA interval, QRS interval, and QTc intervals were all normal. Rolfe was normal. There are nonspecific ST-T wave changes. Chest Xray showed no acute finding. Patient had been on steroids. Treated with bipap, ATC duonebs, PRN albuterol, IV methylprednisolone, and IV Levaquin. Sputum cultures are positive for RSV B. Seen today tripod position in bedside chair with airvo in place. Noticed occasional accessory muscle use during conversation. Reports that she is ready to get better and get back home. Feels that her breathing has improved. Palliative services discussed and Palliative Liaison will contact her at discharge. Noted to be able to speak with 1-2 sentences before becoming dyspneic. O2 sats ranging from 96-99% on 50 with FiO2 of 28 and pulse tachycardic if she moves to a sitting position. Lungs are diminished anteriorly and scattered expiratory wheezes in posterior lung hutchins. Denies any further complaints besides dyspnea. PCP:Katelyn, Specialists:jarad Angel from [facility]. Pt states she was scheduled to have a lung bx on Sunday by . Pt denies having a LW/DPOA and denies need for info regarding AD. LNOK: Danial Briggs, ; Erika Garduno, mother. Pt lives with and daughter and 2 grandchildren in a two story house with 3 steps to enter. Pt states she has 15 steps to go up to the bathroom in her home. Pt reports she was I in ADL's prior to this hospitalization. Pt drives self and denies concerns with transportation. DME/HHC/SNF: Pt states she has home O2 at 2L [place] cont through [facility], nebulizer and a walker that she does not use. Pt denies hx of HHC or SNF stays. [facility] Medical History COPD (chronic obstructive pulmonary disease) COPD (chronic obstructive pulmonary disease) Former smoker Former smoker GERD (gastroesophageal reflux disease) Hypertension Hypertension Hypothyroid Hypothyroidism Immune deficiency disorder On home oxygen therapy Osteoporosis Home Medications Spiriva with HandiHaler 2 puff INHALATION DAILY 04/01/15 [History Last Taken Unknown] albuterol sulfate [ProAir HFA] 2 puff INHALATION Q4H PRN PRN 07/22/14 [History Last Taken Unknown] budesonide 1 applicatio INHALATION BID 07/22/14 [History Last Taken 07/21/14] formoterol fumarate [Perforomist] 20 mcg INHALATION BID 07/22/14 [History Last Taken 07/21/14] levothyroxine 100 mcg PO DAILY 07/22/14 [History Last Taken 07/22/14] omeprazole 20 mg PO DAILY 07/22/14 [History Last Taken 07/21/14] amlodipine 10 mg PO DAILY 12/18/18 [History Last Taken Unknown] cholecalciferol (vitamin D3) 2,000 unit PO DAILY 05/23/19 [History Last Taken Unknown] zafirlukast 20 mg PO BID 05/23/19 [History Last Taken Unknown] multivitamin 1 ea PO DAILY 01/21/20 [History Last Taken Unknown] ipratropium bromide 2.5 ml INHALATION BID 11/26/20 [History Last Taken Unknown] prednisone 10 mg PO DAILY 11/26/20 [History Last Taken Unknown] clarithromycin 500 mg PO BID 02/10/21 [History Last Taken Unknown] Allergy/AdvReac Type Severity Reaction Status Date / Time ampicillin Allergy stomach Verified 02/10/21 03:09 issues aspirin [ASA] Allergy Hives Verified 02/09/21 23:13 cephalexin monohydrate Allergy Hives Verified 02/09/21 23:13 [From Keflex] Family History Mother Hypertension Father Rheumatoid arthritis Heart disease Surgical History (Updated 02/10/21 @ 04:32 by Tesha Canela) History of appendectomy History of cholecystectomy Hx of appendectomy Hx of cholecystectomy Hx of hysterectomy Hx of tonsillectomy Social History household members: spouse Smoking Status: Former smoker how long ago did patient quit smoking: Quit 2008, prior 1-1.5 ppd since youth. alcohol intake: never substance use type: does not use ROS Constitutional Constitutional: Reports systems reviewed and no addt'l complaints, except as documented Cardiovascular Cardiovascular: Reports fatigue and rapid heart rate; Denies chest pain, cyanosis, irregular heart rhythm or leg edema Respiratory/Chest Respiratory/Chest: Reports chest tightness, cough, dyspnea, dyspnea on exertion and shortness of breath at rest Gastrointestinal Gastrointestinal: Denies abdominal pain, anorexia or change in bowel habits Genitourinary Genitourinary: Reports none Musculoskeletal Musculoskeletal: Reports none Integumentary Integumentary: Reports none Neurologic Neurologic: Reports none Psychiatric Psychiatric: Denies anxiety, confusion or depression Physical Exam Const alert and oriented x3 Constitutional Narrative: Tripod position in beside chair, leaning on the bed with airvo in place General Appearance: cooperative, in distress Positive for mild, disheveled and on BiPAP Orientation / Consciousness: awake, oriented to person, oriented to place and oriented to time Exam Limitations: no limitations Nutritional Appearance: obese HEENT normocephalic and head/scalp atraumatic Head and Scalp: normal to inspection and normocephalic Chest inspection of chest normal Chest: symmetrical chest wall rise Resp Effort and Inspection: able to speak in complete sentences, uses accessory muscles and tripod positioning Auscultation: wheezes expiratory wheezes and scattered wheezes and diminished lung sounds Cardio Rate: tachycardic Peripheral Pulses: pulses 2+ throughout GI normal to inspection, nondistended, normoactive bowel sounds Skin General Skin Exam: no breakdown Neuro CN's II-XII intact bilaterally and moves all extremities Sensorium / Orientation: awake, alert, oriented to person, oriented to place and oriented to time
--- NOTE | 2021-02-10 17:42 | PN.HOSP_ITS ---
Hospitalist Note This is a 70-year-old white female who has a baseline history of COPD on 2 L of nasal cannula who presented to the emergency department early this morning with increased shortness of breath. Her entire family has been suffering from an upper respiratory infection and she feels that she has caught what ever they have. In the emergency department she was requiring 4 L nasal cannula with saturations of 94% and noted to have a leukocytosis. Her rapid Covid test was negative as well as her lactic acid. Chest x-ray showed no acute cardiopulmo nary findings and blood cultures were drawn. She was admitted to the medical floor with supplemental oxygen, steroids, and aggressive pulmonary toilet. She had increased work of breathing and BiPAP was initiated. She eventually refused this and went back to nasal cannula but developed worsening respiratory status and was placed on air Vo. Viral PCR came back positive for RSV. She is markedly wheezy on exam. At this time we will continue supportive care. 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 Middleton and is supposed to undergo bronchoscopy with biopsy for pulmonary nodule on Sunday. I did inform the performing proceduralist Dr. Nas Bright that she was in the hospital and that that case would likely need to be canceled.
[2021-02-10] MEDS: Montelukast 10 MG Tablet PO (23:01)
[2021-02-11] VITALS (13 sets, daily range): BP systolic 135–185; BP diastolic 73–100; PULSE 24–98; RESP 20–24; TEMP 36.8–38.1; O2SAT 88–98
[2021-02-11] MEDS: Sodium Chloride 0.65% 1 SPRAY SPRAY.BTL 2 SPRAY NASAL (04:21)
[2021-02-11] MEDS: Levothyroxine 100 MCG Tablet PO (04:25)
[2021-02-11] MEDS: 0.9% Saline Lock 10 ML Syringe IV ×5 (04:25→22:49)
[2021-02-11] MEDS: Acetaminophen 325 MG Tablet 650 MG PO (04:29)
[2021-02-11] MEDS: Ipratropium/Albuterol Sulfate 3 ML AMPUL.NEB INHALATION ×5 (04:40→19:28)
[2021-02-11 07:46] LABS: Absolute Lymphocyte Count 0.64 X10^3/uL (0.83-4.51); Absolute Neutrophil Count 17.4 X10^3/uL (2.0-7.7); Basophil# 0.03 X10^3/uL; Basophil% 0.2 % (0-1); Hematocrit 34.9 % (37-47); Hemoglobin 11.4 g/dL (12.0-15.0); Lymphocyte # 0.64 X10^3/ul (0.83-4.51); Lymphocyte % 3.4 % (19-41); Mean Corp Hgb Conc 32.7 g/dL (32-36); Mean Corpuscular Hgb 28.5 pg (27.0-32.0); Mean Corpuscular Volume 87.3 fL (81-99); Mean Platelet Vol. 9.9 fl (6.2-12.0); Monocyte# 0.74 X10^3/uL; Monocyte% 3.9 % (0-10); NRBC Flagged by Analyzer 0 % (0-5); Neutrophil # 17.35 X10^3/uL (2.7-7.7); Neutrophil % 91.2 % (47-70); Platelet Count 478 K/mm3 (150-450); RBC Distribution Width CV 13.3 % (11.6-14.6); RBC Distribution Width SD 42.8 fl (35.1-43.9)
[2021-02-11 08:12] LABS: Anion Gap 4 (5-15); BUN 24 mg/dL (7-18); BUN/Creat Ratio 31.2 RATIO (10-20); Calcium,Total 9.2 mg/dL (8.5-10.1); Chloride 101 mmol/L (98-107); Creatinine, Serum 0.77 mg/dL (0.55-1.02); EST Glomerular Filtration Rate 79 mL/min (>60); Est Glom Filt Rate - Afr Amer 96 mL/min (>60); Estimated Creatinine Clearance 40.63 ml/min; Glucose 134 mg/dL (74-106); Potassium 3.3 mmol/L (3.5-5.1); Sodium Level 139 mmol/L (136-145)
[2021-02-11] MEDS: Enoxaparin 40 MG/0.4 ML Syringe SC (10:22)
[2021-02-11] MEDS: Potassium Chloride Oral Tablet 20 MEQ 60 MEQ PO (10:22)
[2021-02-11] MEDS: levoFLOXacin IV 250 MG/50 ML BAG 50 MG IV (10:23)
[2021-02-11] MEDS: amLODIPine 2.5 MG Tablet PO (10:25)
[2021-02-11] MEDS: Triamterene 37.5MG/Hctz 25MG Capsule 1 CAP PO (10:25)
[2021-02-11] MEDS: NYSTATIN 500,000 UNIT/5 ML UDC 500000 UNIT PO ×4 (10:25→22:36)
[2021-02-11] MEDS: Pantoprazole Sodium 20 MG Tablet PO (10:25)
--- NOTE | 2021-02-11 13:27 | PCM.PN.HOSP ---
Subjective Subjective Patient states she may be feeling a little bit better while she is at rest but still has significant desaturation issues with ambulation and exertion. She indicates she still feeling poorly. She has not been able to produce a sputum culture. Objective Data Objective Data Vital Signs: Vital Signs Temp Pulse Resp BP Pulse Ox 100.6 F H 85 24 H 160/90 H 98 02/11/21 10:30 02/11/21 11:09 02/11/21 11:09 02/11/21 10:30 02/11/21 10:30 Oxygen Flow Rate (L/min) 50 Oxygen Delivery Method Airvo Weight: 74.899 kg Body Mass Index (BMI) 31.1 Intake & Output: Intake and Output for Last 24 Hours 02/09/21 02/10/21 02/11/21 23:59 23:59 23:59 Intake Total 400 / 400 150 / 150 Balance 400 / 400 150 / 150 Lab / Micro Data Result Diagrams: 02/11/21 06:39 02/11/21 06:39 Labs: Laboratory Results - last 24 hr 02/11/21 06:39: WBC 19.0 H, RBC 4.00 L, Hgb 11.4 L, Hct 34.9 L, MCV 87.3, MCH 28.5, MCHC 32.7, RDW Std Deviation 42.8, RDW Coeff of Siena 13.3, Plt Count 478 H, MPV 9.9, Immature Gran % (Auto) 1.300 H, Neut % (Auto) 91.2 H, Lymph % (Auto) 3.4 L, [place] % (Auto) 3.9, Eos % (Auto) 0.0, Baso % (Auto) 0.2, Absolute Neuts (auto) 17.4 H, Absolute Lymphs (auto) 0.64 L, Nucleated RBC % 0 02/11/21 06:39: Sodium 139, Potassium 3.3 L, Chloride 101, Carbon Dioxide 34.0 H, Anion Gap 4 L, BUN 24 H, Creatinine 0.77, Estim Creat Clear Calc 40.63, Est GFR (MDRD) Af Amer 96, Est GFR (MDRD) Non-Af 79, BUN/Creatinine Ratio 31.2 H, Glucose 134 H, Calcium 9.2 Micro: Microbiology 02/10/21 07:05 Sputum, Expectorated/Coughed Gram Stain - Final 02/10/21 07:05 Sputum, Expectorated/Coughed Respiratory Culture - Preliminary Alpha Hemolytic Streptococcus 02/10/21 03:34 Mucosa - Nasopharyngeal Respiratory Panel (PCR) - Final RSV B 02/10/21 00:11 Nasal Secretion SARS-CoV-2 Antigen (Rapid) - Final Physical Exam Const alert, oriented x3, no apparent distress and average body habitus Constitutional Narrative: Upper middle-aged white female lying in left side lying in bed on air Vo, appears as if she does not feel well but nontoxic at this time, pleasant and no dyspnea with conversation Exam Limitations: no limitations Nutritional Appearance: obese HEENT head/scalp atraumatic, moist oral mucous membranes and oropharynx normal HEENT Narrative: Mild thrush noted Head and Scalp: normocephalic Resp no retractions and no use of accessory muscles Resp Narrative: Mild tachypnea but no extremis, decreased air movement throughout lung hutchins with scattered end expiratory wheezes Auscultation: wheezes; Negative for crackles, rales or rhonchi Cardio regular rate, regular rhythm, S1 normal heart sound, S2 normal heart sound, no murmurs, no rub, no gallops, no clicks and no JVD GI normal to inspection, nondistended, normoactive bowel sounds, soft to palpation, non-tender and non-distended; Negative for hepatosplenomegaly Extremity normal to inspection and no clubbing, cyanosis or edema Peripheral Pulses: Yes pulses 2+ throughout Neuro oriented x3, moves all extremities and no focal motor deficits Sensorium / Orientation: awake and alert Speech: speech normal Assessment & Plan Assessment/Plan (1) Acute and chronic respiratory failure with hypoxia: (2) Dyspnea: (3) RSV infection: (4) Thrush: (5) Leukocytosis: (6) Anemia: (7) Thrombocytosis: (8) Hypokalemia: PLAN: Acute on chronic hypoxic respiratory failure secondary to RSV infection -Viral panel positive for RSV -Continue steroids--> maintain IV at this time -Will transition to oral as patient improves symptomatically -Continue aggressive pulmonary toilet -Continue supplemental oxygen and wean as able to maintain sats greater than 88% -Patient is currently on air Vo with a flow of 50 L/min and an FiO2 of 29%--> will trial transition to heated high flow nasal cannula -Continue incentive spirometer and Acapella -Maintain euvolemia -Hold home inhalers -Mucinex -Check sputum culture if patient able to produce Thrush -Continue nystatin Leukocytosis -Suspect multifactorial secondary to demargination with steroids as well as viral infection -Continue to monitor Mild acute anemia -Most likely a bit dilutional -Continue to monitor with CBC -No signs of acute bleeding Thrombocytosis -Suspect reactive and related to acute infection -Continue to monitor Hypokalemia -P.o. potassium replacement with 60 mEq -Check a.m. magnesium level -Repeat a.m. lab COPD -Patient is chronically on oxygen at 2 L at baseline -Continue nebulizers -Hold home inhalers -We will restart at discharge Hypertension -Continue amlodipine 10 GERD -Continue omeprazole Hypothyroidism -Continue levothyroxine Vitamin D deficiency -Continue vitamin D supplementation DVT prophylaxis -SCDs -Prophylactic Lovenox CODE STATUS -Full code Charges/Coding Visit Charges Inpatient E&M: 20875 Subs Hosp L2
--- NOTE | 2021-02-11 15:22 | CASEMGMT ---
TC to [facility]. Spoke with Diana, pt rx is 2L with exertion. Pt to bring in portability for dc home if needed. Green sheet on chart for change in O2 rx.
[2021-02-11] MEDS: Albuterol 2.5 MG/3 ML VIAL.NEB. INHALATION (21:53)
[2021-02-11] MEDS: Montelukast 10 MG Tablet PO (22:36)
[2021-02-11] MEDS: guaiFENesin 10 ML UDC (200MG/10ML) 20 ML PO (22:48)
[2021-02-11] MEDS: hydrALAZINE 20 MG/ML Vial 10 MG IV (22:48)
[2021-02-12] VITALS (14 sets, daily range): BP systolic 132–155; BP diastolic 72–91; PULSE 70–120; RESP 18–26; TEMP 36.5–38; O2SAT 92–98
[2021-02-12] MEDS: Albuterol 2.5 MG/3 ML VIAL.NEB. INHALATION ×3 (02:00→23:55)
[2021-02-12] MEDS: Levothyroxine 100 MCG Tablet PO (04:57)
[2021-02-12] MEDS: 0.9% Saline Lock 10 ML Syringe IV ×2 (04:58→14:00)
[2021-02-12] MEDS: Ipratropium/Albuterol Sulfate 3 ML AMPUL.NEB INHALATION ×4 (07:22→19:01)
[2021-02-12 08:40] LABS: Absolute Lymphocyte Count 0.67 X10^3/uL (0.83-4.51); Absolute Neutrophil Count 21.3 X10^3/uL (2.0-7.7); Basophil# 0.04 X10^3/uL; Basophil% 0.2 % (0-1); Hematocrit 34.4 % (37-47); Hemoglobin 11.4 g/dL (12.0-15.0); Lymphocyte # 0.67 X10^3/ul (0.83-4.51); Lymphocyte % 2.9 % (19-41); Mean Corp Hgb Conc 33.1 g/dL (32-36); Mean Corpuscular Hgb 28.8 pg (27.0-32.0); Mean Corpuscular Volume 86.9 fL (81-99); Mean Platelet Vol. 9.7 fl (6.2-12.0); Monocyte# 0.91 X10^3/uL; Monocyte% 3.9 % (0-10); NRBC Flagged by Analyzer 0 % (0-5); Neutrophil # 21.28 X10^3/uL (2.7-7.7); Neutrophil % 91.6 % (47-70); POSITIVE DIFFERENTIAL YES; Platelet Count 459 K/mm3 (150-450); RBC Distribution Width CV 13.7 % (11.6-14.6); RBC Distribution Width SD 43.8 fl (35.1-43.9); Red Blood Count 3.96 M/mm3 (4.2-5.4); White Blood Count 23.2 K/mm3 (4.4-11.0)
[2021-02-12 08:45] LABS: Anion Gap 6 (5-15); BUN 25 mg/dL (7-18); BUN/Creat Ratio 32.8 RATIO (10-20); Chloride 102 mmol/L (98-107); Creatinine, Serum 0.76 mg/dL (0.55-1.02); EST Glomerular Filtration Rate 80 mL/min (>60); Est Glom Filt Rate - Afr Amer 97 mL/min (>60); Estimated Creatinine Clearance 40.63 ml/min; Glucose 140 mg/dL (74-106); Magnesium 1.9 mg/dL (1.6-2.6); Potassium 3.4 mmol/L (3.5-5.1); Sodium Level 139 mmol/L (136-145)
[2021-02-12 08:47] LABS: Differential Indicated SCAN CRITERIA MET
[2021-02-12] MEDS: Pantoprazole Sodium 20 MG Tablet PO (08:55)
[2021-02-12] MEDS: Enoxaparin 40 MG/0.4 ML Syringe SC (08:56)
--- NOTE | 2021-02-12 09:00 | PCS.PANDOC ---
PANDEMIC DOCUMENTATION INITIATED: Date: 12/06/2020 Time: 190
[2021-02-12] MEDS: Triamterene 37.5MG/Hctz 25MG Capsule 1 CAP PO (09:09)
[2021-02-12] MEDS: NYSTATIN 500,000 UNIT/5 ML UDC 500000 UNIT PO ×4 (09:09→20:48)
[2021-02-12] MEDS: amLODIPine 10 MG Tablet PO (09:09)
[2021-02-12 09:22] LABS: Differential Comment SCANNED
--- NOTE | 2021-02-12 13:42 | PCM.PN.HOSP ---
Subjective Subjective Patient is doing much better today and is on 2 L nasal cannula at rest. We had intended to send her home but upon ambulation the patient became very tachycardic and winded and was able to walk even 25 feet to the bathroom. Therefore, our plans for discharge are on hold until her endurance is improved. Objective Data Objective Data Vital Signs: Vital Signs Temp Pulse Resp BP Pulse Ox 97.7 F L 120 H 26 H 143/90 H 94 02/12/21 09:08 02/12/21 10:16 02/12/21 10:16 02/12/21 09:08 02/12/21 11:36 Oxygen Flow Rate (L/min) [ 3 AMBULATING with Oxygen #1] Oxygen Flow Rate (L/min) [At 2 REST with Oxygen] Oxygen Flow Rate (L/min) 2 Oxygen Delivery Method Nasal Cannula Weight: 72.1 kg Body Mass Index (BMI) 31.1 Intake & Output: Intake and Output for Last 24 Hours 02/10/21 02/11/21 02/12/21 23:59 23:59 23:59 Intake Total 400 / 400 150 / 150 300 / 300 Balance 400 / 400 150 / 150 300 / 300 Lab / Micro Data Result Diagrams: 02/12/21 07:50 02/12/21 07:50 Labs: Laboratory Results - last 24 hr 02/12/21 07:50: WBC 23.2 H, RBC 3.96 L, Hgb 11.4 L, Hct 34.4 L, MCV 86.9, MCH 28.8, MCHC 33.1, RDW Std Deviation 43.8, RDW Coeff of Siena 13.7, Plt Count 459 H, MPV 9.7, Immature Gran % (Auto) 1.400 H, Neut % (Auto) 91.6 H, Lymph % (Auto) 2.9 L, [place] % (Auto) 3.9, Eos % (Auto) 0.0, Baso % (Auto) 0.2, Absolute Neuts (auto) 21.3 H, Absolute Lymphs (auto) 0.67 L, Nucleated RBC % 0, Differential Comment SCANNED 02/12/21 07:50: Sodium 139, Potassium 3.4 L, Chloride 102, Carbon Dioxide 31.0, Anion Gap 6, BUN 25 H, Creatinine 0.76, Estim Creat Clear Calc 40.63, Est GFR (MDRD) Af Amer 97, Est GFR (MDRD) Non-Af 80, BUN/Creatinine Ratio 32.8 H, Glucose 140 H, Calcium 9.0, Magnesium 1.9 Micro: Microbiology 02/10/21 07:05 Sputum, Expectorated/Coughed Gram Stain - Final 02/10/21 07:05 Sputum, Expectorated/Coughed Respiratory Culture - Final Mixed normal respiratory scott. No Streptococcus pneumoniae, beta-hemolytic Streptococcus or Staphylococcus aureus isolated. 02/10/21 01:35 Blood Culture (Wb) - Right Wrist Blood Culture - Preliminary No growth in 48 hours. 02/10/21 00:23 Blood Culture (Wb) - Anticubital Left Blood Culture - Preliminary No growth in 48 hours. 02/10/21 03:34 Mucosa - Nasopharyngeal Respiratory Panel (PCR) - Final RSV B 02/10/21 00:11 Nasal Secretion SARS-CoV-2 Antigen (Rapid) - Final Physical Exam Const alert, oriented x3, no apparent distress and average body habitus Constitutional Narrative: Upper middle-aged white female sitting on the edge of the bed, currently on 3 L nasal cannula and sats are 97%, patient appears comfortable with breathing and nontoxic Exam Limitations: no limitations Nutritional Appearance: obese HEENT head/scalp atraumatic, moist oral mucous membranes and oropharynx normal HEENT Narrative: No active thrush at this time Head and Scalp: normocephalic Resp normal respiratory effort, no retractions and no use of accessory muscles Resp Narrative: Mild tachypnea-improved, decreased air movement throughout lung hutchins with scattered end expiratory wheezes Auscultation: wheezes; Negative for crackles, rales or rhonchi Cardio regular rate, regular rhythm, S1 normal heart sound, S2 normal heart sound, no murmurs, no rub, no gallops, no clicks and no JVD GI normal to inspection, nondistended, normoactive bowel sounds, soft to palpation, non-tender and non-distended; Negative for hepatosplenomegaly Extremity normal to inspection and no clubbing, cyanosis or edema Peripheral Pulses: Yes pulses 2+ throughout Neuro oriented x3, moves all extremities and no focal motor deficits Sensorium / Orientation: awake and alert Speech: speech normal Assessment & Plan Assessment/Plan (1) Acute and chronic respiratory failure with hypoxia: (2) Dyspnea: (3) RSV infection: (4) Thrush: (5) Leukocytosis: (6) Anemia: (7) Thrombocytosis: (8) Hypokalemia: PLAN: Acute on chronic hypoxic respiratory failure secondary to RSV infection -Viral panel positive for RSV -Continue steroids--> maintain IV at this time -Will transition to oral as patient improves symptomatically -Continue aggressive pulmonary toilet -Continue supplemental oxygen and wean as able to maintain sats greater than 88% -Patient has been weaned to regular nasal cannula at 2 to 3 L at rest -Ambulatory pulse ox obtained to consider patient for discharge but patient became very winded and tachycardic with worsening tachypnea and therefore will hold discharge at this time and reevaluate tomorrow -Continue incentive spirometer and Acapella -Maintain euvolemia -Hold home inhalers -Mucinex -Check sputum culture if patient able to produce Aspiration pneumonia -Mixed oral scott on culture -Unasyn allergy -Continue Levaquin but increase dose to 750 daily -We will treat for 7 days total Thrush -Continue nystatin Leukocytosis -Suspect multifactorial secondary to demargination with steroids as well as viral infection -Continue to monitor Mild acute anemia -Most likely a bit dilutional -Continue to monitor with CBC -No signs of acute bleeding Thrombocytosis -Suspect reactive and related to acute infection -Continue to monitor Hypokalemia -P.o. potassium replacement with another 60 mEq -Mag levels normal -Repeat BMP in a.m. COPD -Patient is chronically on oxygen at 2 L at baseline -Continue nebulizers -Hold home inhalers -We will restart at discharge Hypertension -Continue amlodipine 10 -Continue triamterene/HCTZ GERD -Continue omeprazole Hypothyroidism -Continue levothyroxine Vitamin D deficiency -Continue vitamin D supplementation DVT prophylaxis -SCDs -Prophylactic Lovenox CODE STATUS -Full code
[2021-02-12] MEDS: Potassium Chloride Oral Tablet 20 MEQ 60 MEQ PO (14:22)
[2021-02-12] MEDS: levoFLOXacin 750 MG Tablet PO (14:22)
[2021-02-12] MEDS: Montelukast 10 MG Tablet PO (20:49)
[2021-02-12] MEDS: Acetaminophen 325 MG Tablet 650 MG PO (21:08)
[2021-02-13] VITALS (7 sets, daily range): BP systolic 136–155; BP diastolic 70–79; PULSE 87–99; RESP 18–22; TEMP 36.5–37.5; O2SAT 88–98
[2021-02-13] MEDS: Ipratropium/Albuterol Sulfate 3 ML AMPUL.NEB INHALATION ×2 (05:47→10:02)
[2021-02-13] MEDS: 0.9% Saline Lock 10 ML Syringe IV (06:25)
[2021-02-13] MEDS: Levothyroxine 100 MCG Tablet PO (06:26)
[2021-02-13 06:54] LABS: Absolute Lymphocyte Count 0.69 X10^3/uL (0.83-4.51); Absolute Neutrophil Count 24.7 X10^3/uL (2.0-7.7); Basophil# 0.08 X10^3/uL; Basophil% 0.3 % (0-1); Hematocrit 38.3 % (37-47); Hemoglobin 12.3 g/dL (12.0-15.0); Lymphocyte # 0.69 X10^3/ul (0.83-4.51); Lymphocyte % 2.5 % (19-41); Mean Corp Hgb Conc 32.1 g/dL (32-36); Mean Corpuscular Volume 87.2 fL (81-99); Mean Platelet Vol. 9.6 fl (6.2-12.0); Monocyte# 0.92 X10^3/uL; Monocyte% 3.4 % (0-10); NRBC Flagged by Analyzer 0 % (0-5); Neutrophil # 24.74 X10^3/uL (2.7-7.7); POSITIVE DIFFERENTIAL YES; Platelet Count 523 K/mm3 (150-450); RBC Distribution Width CV 13.9 % (11.6-14.6); RBC Distribution Width SD 44.7 fl (35.1-43.9); Red Blood Count 4.39 M/mm3 (4.2-5.4); White Blood Count 27.2 K/mm3 (4.4-11.0)
[2021-02-13 07:00] LABS: Differential Indicated SCAN CRITERIA MET
[2021-02-13 07:08] LABS: Anion Gap 6 (5-15); BUN 24 mg/dL (7-18); BUN/Creat Ratio 26.2 RATIO (10-20); Calcium,Total 9.3 mg/dL (8.5-10.1); Chloride 99 mmol/L (98-107); Creatinine, Serum 0.92 mg/dL (0.55-1.02); EST Glomerular Filtration Rate 65 mL/min (>60); Est Glom Filt Rate - Afr Amer 78 mL/min (>60); Estimated Creatinine Clearance 44.16 ml/min; Glucose 132 mg/dL (74-106); Potassium 3.8 mmol/L (3.5-5.1); Sodium Level 137 mmol/L (136-145)
[2021-02-13 09:07] LABS: Differential Comment SCANNED
[2021-02-13] MEDS: NYSTATIN 500,000 UNIT/5 ML UDC 500000 UNIT PO (09:26)
[2021-02-13] MEDS: Triamterene 37.5MG/Hctz 25MG Capsule 1 CAP PO (09:26)
[2021-02-13] MEDS: Pantoprazole Sodium 20 MG Tablet PO (09:26)
[2021-02-13] MEDS: Enoxaparin 40 MG/0.4 ML Syringe SC (09:26)
[2021-02-13] MEDS: amLODIPine 10 MG Tablet PO (09:26)
--- NOTE | 2021-02-13 10:20 | PCM.DC.SUM ---
Providers Date of Admission: 02/10/21 Primary Care Physician: Dr. Bay Zepeda DO Reason For Visit: ACUTE COPD EXACARBATION Diagnosis Discharge Diagnosis (1) Acute and chronic respiratory failure with hypoxia: Status: Chronic Code(s): J96.21 - Acute and chronic respiratory failure with hypoxia (2) Dyspnea: Status: Acute Code(s): R06.00 - Dyspnea, unspecified (3) RSV infection: Status: Acute Code(s): B97.4 - Respiratory syncytial virus as the cause of diseases classified elsewhere (4) Thrush: Status: Acute Code(s): B37.0 - Candidal stomatitis (5) Leukocytosis: Status: Acute Code(s): D72.829 - Elevated white blood cell count, unspecified (6) Anemia: Status: Acute Code(s): D64.9 - Anemia, unspecified (7) Thrombocytosis: Status: Acute Code(s): D75.839 - Thrombocytosis, unspecified (8) Hypokalemia: Status: Acute Code(s): E87.6 - Hypokalemia Medications at Discharge Home Medications Spiriva with HandiHaler 2 puff INHALATION DAILY 07/22/14 albuterol sulfate [ProAir HFA] 2 puff INHALATION Q4H PRN PRN 07/22/14 budesonide 1 applicatio INHALATION BID 07/22/14 formoterol fumarate [Perforomist] 20 mcg INHALATION BID 07/22/14 levothyroxine 100 mcg PO DAILY 07/22/14 omeprazole 20 mg PO DAILY 07/22/14 cholecalciferol (vitamin D3) 2,000 unit PO DAILY 05/23/19 zafirlukast 20 mg PO BID 05/23/19 multivitamin 1 ea PO DAILY 01/21/20 ipratropium bromide 2.5 ml INHALATION BID 11/26/20 prednisone 10 mg PO DAILY 11/26/20 amlodipine 10 mg PO DAILY 02/11/21 levofloxacin 750 mg PO DAILY #5 tab 02/13/21 prednisone 10 mg PO DAILY #40 tab 02/13/21 Hospital Course Operations None Procedures None Summary of Care Provided Minutes Spent on Discharge: 38 Hospital Course: Mrs. Briggs is a 70-year-old white female who presented to the emergency department at [facility] on 02/10/2021 with approximately 1 week of increasing fatigue, malaise, dry cough, and wheezing with chest tightness. She presented initially to the emergency department here on 02/08/2021 and was discharged home with oral steroids and Biaxin. At that time she felt that she initially improved a little bit but progressively got worse since discharge and was having increased chest tightness, dyspnea, and worsening wheezing despite her interventions in her home nebulizer treatments. In the emergency department she was afebrile with an elevated blood pressure and an oxygen saturation of 94% on 4 L nasal cannula. Her baseline oxygen requirements are 2 L. Her white count was elevated at 19.3 and she had a thrombocytosis which persisted throughout her stay. She had mild hypokalemia and her chest x-ray showed no acute cardiopulmonary findings. A rapid Covid was negative. Blood and sputum cultures were collected and she was admitted to the hospital and placed on Levaquin, steroids, and nebulizer treatments. She decompensated to the point where she required BiPAP continuous for short period of time and then was able to be weaned to air Vo. She was able to be then weaned to high flow nasal cannula and yesterday when I evaluated her on 02/12/2021 she was on 2 L nasal cannula which is her baseline. We did at that time attempt to ambulate her but her heart rate increased to 1 30-1 40 and she was only able to ambulate for approximately 25 feet prior to becoming extremely winded. Given her exertional dyspnea, hypoxia and tachycardia we held discharge and continue treatment. Her ambulatory pulse ox was repeated on 02/13/2021 and she remained stable on 2 L nasal cannula and was able to exert a more significant effort without showing dyspnea, worsening tachycardia, or worsening hypoxia. During her stay she was also found to have bacterial pneumonia that appears to be aspiration. I suspect with her compromised respiratory status that she developed an episode of aspiration and therefore were treating her for aspiration pneumonia with Levaquin. She will have 5 more days of treatment after discharge. She is to discontinue the Biaxin she was taking at home. She was also found to have viral PCR swab that was positive for RSV and I suspect this is the predominant cause of her acute exacerbation of COPD. Her lung sounds are much improved on the day of discharge. She was discharged again with Levaquin and a prednisone taper. She is to follow-up with her primary care physician in approximately 1 week and then follow-up with pulmonology to reschedule a biopsy that she has for a pulmonary nodule that was scheduled for Sunday. This has been canceled at this time. Discharge diagnoses: Acute hypoxic respiratory failure-resolved Chronic hypoxic respiratory failure Acute exacerbation of COPD RSV infection Aspiration pneumonia Thrush Mild acute anemia-anticipate delusional Thrombocytosis-Likely reactive Hypokalemia-resolved COPD Hypertension GERD Hypothyroidism Vitamin D deficiency Pulmonary nodule-biopsy pending Physical Exam Const alert, oriented x3, no apparent distress and average body habitus Constitutional Narrative: Upper middle-aged white female sitting on the edge of the bed and stands when I come in, currently on 2 L nasal cannula and sats are 99%, patient appears comfortable with breathing and nontoxic General Appearance: cooperative, comfortable, well kempt and well developed Orientation / Consciousness: awake Exam Limitations: no limitations Nutritional Appearance: obese HEENT normocephalic, head/scalp atraumatic, hearing grossly normal bilaterally, moist oral mucous membranes and oropharynx normal HEENT Narrative: No thrush noted at this time, Mallampati 2 Eyes PERRL, EOMs intact bilaterally and conjunctivae normal Neck no lymphadenopathy, supple and no JVD Neck Narrative: Trachea midline, no thyroid enlargement Resp normal respiratory effort, no retractions and no use of accessory muscles Resp Narrative: Normal respiratory rate with decreased air movement throughout and scattered wheeze-end expiratory Auscultation: wheezes; Negative for crackles, rales or rhonchi Cardio regular rate, regular rhythm, S1 normal heart sound, S2 normal heart sound, no murmurs, no rub, no gallops, no clicks and no JVD GI normal to inspection, nondistended, normoactive bowel sounds, soft to palpation, non-tender and non-distended; Negative for hepatosplenomegaly Extremity normal to inspection and no clubbing, cyanosis or edema Skin no rashes or lesions noted, no wounds, skin turgor normal and no jaundice Neuro oriented x3, CN's II-XII intact bilaterally, moves all extremities and no focal motor deficits Sensorium / Orientation: awake and alert Speech: speech normal Psych affect normal Psych Narrative: Anxious to go home Weight / BMI Weight Weight: 72.4 kg Body Mass Index (BMI) 31.1 ABG / Lab / Microbiology Data Result Diagrams: 02/13/21 06:10 02/13/21 06:10 Laboratory: Laboratory Results - last 24 hr 02/13/21 06:10: WBC 27.2 H, RBC 4.39, Hgb 12.3, Hct 38.3, MCV 87.2, MCH 28.0, MCHC 32.1, RDW Std Deviation 44.7 H, RDW Coeff of Siena 13.9, Plt Count 523 H, MPV 9.6, Immature Gran % (Auto) 2.800 H, Neut % (Auto) 91.0 H, Lymph % (Auto) 2.5 L, [place] % (Auto) 3.4, Eos % (Auto) 0.0, Baso % (Auto) 0.3, Absolute Neuts (auto) 24.7 H, Absolute Lymphs (auto) 0.69 L, Nucleated RBC % 0, Differential Comment SCANNED 02/13/21 06:10: Sodium 137, Potassium 3.8, Chloride 99, Carbon Dioxide 32.0, Anion Gap 6, BUN 24 H, Creatinine 0.92, Estim Creat Clear Calc 44.16, Est GFR (MDRD) Af Amer 78, Est GFR (MDRD) Non-Af 65, BUN/Creatinine Ratio 26.2 H, Glucose 132 H, Calcium 9.3 Microbiology: Microbiology 02/10/21 07:05 Sputum, Expectorated/Coughed Gram Stain - Final 02/10/21 07:05 Sputum, Expectorated/Coughed Respiratory Culture - Final Mixed normal respiratory scott. No Streptococcus pneumoniae, beta-hemolytic Streptococcus or Staphylococcus aureus isolated. 02/10/21 01:35 Blood Culture (Wb) - Right Wrist Blood Culture - Preliminary No growth in 48 hours. 02/10/21 00:23 Blood Culture (Wb) - Anticubital Left Blood Culture - Preliminary No growth in 48 hours. 02/10/21 03:34 Mucosa - Nasopharyngeal Respiratory Panel (PCR) - Final RSV B 02/10/21 00:11 Nasal Secretion SARS-CoV-2 Antigen (Rapid) - Final Meaningful Use Info Meaningful Use Diagnoses (Choose all that apply): None applicable Discharge Plan Admission Admit Date/Time: 02/10/21 02:50 Primary Reason for Your Visit: Acute Exacerbation of COPD 2/2 RSV and Aspiration PNA Attending Provider: Magui Hudson Primary Care Provider: Bay Zepeda Discharge Orders/Prescriptions Prescriptions: New levofloxacin 750 mg Tablet 750 mg PO DAILY Qty: 5 RF: 0 prednisone 10 mg tablet 10 mg PO DAILY Qty: 40 RF: 0 Continued levothyroxine 100 MCG tablet 100 mcg PO DAILY RF: 0 omeprazole 20 MG capsule 20 mg PO DAILY RF: 0 budesonide 0.5 MG/2 ML suspension for nebulization 1 applicatio inhalation BID RF: 0 albuterol sulfate [ProAir HFA] 1 PUFF inhaler 2 puff inhalation Q4H PRN PRN (Reason: Sob &/Or Wheezing) RF: 0 Spiriva with HandiHaler 1 PUFF inhaler 2 puff inhalation DAILY RF: 0 formoterol fumarate [Perforomist] 20 MCG/2 ML solution for nebulization 20 mcg inhalation BID RF: 0 zafirlukast 20 tablet 20 mg PO BID RF: 0 cholecalciferol (vitamin D3) 2,000 UNIT capsule 2,000 unit PO DAILY RF: 0 multivitamin 1 EACH tablet 1 ea PO DAILY RF: 0 ipratropium bromide 0.02 % Solution 2.5 ml INHALATION BID RF: 0 amlodipine 10 mg tablet 10 mg PO DAILY RF: 0 Held prednisone 10 mg tablet 10 mg PO DAILY RF: 0 Hold Instructions: Resume on 02/26/21. after taper completed Discontinued clarithromycin 500 mg tablet 500 mg PO BID RF: 0 Referrals / Follow Up: Bay Zepeda DO [Primary Care Provider] - In 1 Week (Hospital follow up) Disposition Disposition (needs filled in before D/C Order can be placed): Home, Self Care Charges/Coding Visit Charges Inpatient E&M: 65328 Disch Hosp
--- NOTE | 2021-02-14 16:50 | CASEMGMT ---
GIL DC F/u Call: DC Date: 02/13/21 DC Diagnosis: COPD Exacerbation DC Disposition: Home Lace/Strata: 04/08 Called patient listed number, patient answered. 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 Patient states that she is recuperating. SOB with ambulating. Has increased her oxygen from 2lpm to 2.5lpm. Has not scheduled a f/u appointment yet and aware per [facility] f/u within one week. Patient states wants to give it a few more days, has been taking her Dc rx-steroids and abx. Will call provider if feeling worse. Denies any issues, concerns, or questions with [facility], medications or f/u. GIL Gusman
== END 2021-02-13 13:12 | disposition home or self-care (01) | DRG 190 ==
LOC: ED 23:38 → MS3 02-10 04:28
PROVIDERS: Admitting Provider Family Medicine; Emergency Provider Emergency Medicine; PCP Family Medicine; Visit Provider Internal Medicine
DX: J44.1 Chronic obstructive pulmonary disease with (acute) exacerbation (principal); J96.21 Acute and chronic respiratory failure with hypoxia; J12.1 Respiratory syncytial virus pneumonia; D84.9 Immunodeficiency, unspecified; J44.0 Chronic obstructive pulmonary disease with (acute) lower respiratory infection; I10 Essential (primary) hypertension; E03.9 Hypothyroidism, unspecified; E55.9 Vitamin D deficiency, unspecified; D64.9 Anemia, unspecified; D75.839 Thrombocytosis, unspecified; B37.9 Candidiasis, unspecified; E87.6 Hypokalemia; K21.9 Gastro-esophageal reflux disease without esophagitis; E66.9 Obesity, unspecified; R91.1 Solitary pulmonary nodule; Z68.31 Body mass index [BMI] 31.0-31.9, adult; Z99.81 Dependence on supplemental oxygen; Z79.899 Other long term (current) drug therapy; Z87.891 Personal history of nicotine dependence
CPT/HCPCS: 36415; 36600; 71045; 80048; 80053; 82803; 83605; 83735; 84145; 84484; 85025; 87040; 87070; 87205; 87426; 87633; 93005; 94002; 94003; 94640; 94762; 97802; 99285; J7050; A4216

== ENCOUNTER 2021-03-04 10:34 | Emergency (ER) | payer BC, MEDICARE, SELFPAY ==
[2021-03-04 10:35] VITALS: BP 152/87; PULSE 92; RESP 18; TEMP 36.6; O2SAT 100
[2021-03-04 11:17] VITALS: O2SAT 97
[2021-03-04] MEDS: Ipratropium/Albuterol Sulfate 3 ML AMPUL.NEB INHALATION (11:27)
[2021-03-04] MEDS: Albuterol 2.5 MG/3 ML VIAL.NEB. INHALATION ×3 (11:27)
[2021-03-04 11:31] VITALS: PULSE 85; RESP 18
[2021-03-04 11:39] LABS: Absolute Lymphocyte Count 1.01 X10^3/uL (0.83-4.51); Absolute Neutrophil Count 12.7 X10^3/uL (2.0-7.7); Basophil# 0.02 X10^3/uL; Basophil% 0.1 % (0-1); Eosinophil# 0.02 X10^3/uL; Eosinophils% 0.1 % (0-5); Hematocrit 34.8 % (37-47); Hemoglobin 11.4 g/dL (12.0-15.0); Lymphocyte # 1.01 X10^3/ul (0.83-4.51); Lymphocyte % 6.8 % (19-41); Mean Corp Hgb Conc 32.8 g/dL (32-36); Mean Corpuscular Hgb 28.4 pg (27.0-32.0); Mean Corpuscular Volume 86.6 fL (81-99); Mean Platelet Vol. 9.4 fl (6.2-12.0); Monocyte# 1.04 X10^3/uL; NRBC Flagged by Analyzer 0 % (0-5); Neutrophil # 12.74 X10^3/uL (2.7-7.7); Neutrophil % 85.5 % (47-70); Platelet Count 328 K/mm3 (150-450); RBC Distribution Width CV 13.6 % (11.6-14.6); RBC Distribution Width SD 42.8 fl (35.1-43.9); Red Blood Count 4.02 M/mm3 (4.2-5.4); White Blood Count 14.9 K/mm3 (4.4-11.0)
[2021-03-04 12:00] LABS: Anion Gap 7 (5-15); BUN 10 mg/dL (7-18); BUN/Creat Ratio 13.5 RATIO (10-20); Calcium,Total 9.5 mg/dL (8.5-10.1); Chloride 103 mmol/L (98-107); Creatinine, Serum 0.74 mg/dL (0.55-1.02); EST Glomerular Filtration Rate 82 mL/min (>60); Est Glom Filt Rate - Afr Amer 100 mL/min (>60); Estimated Creatinine Clearance 40.63 ml/min; Glucose 81 mg/dL (74-106); Potassium 2.7 mmol/L (3.5-5.1); Sodium Level 141 mmol/L (136-145); Troponin-I HS 16 pg/mL (3.0-54.0)
[2021-03-04 12:13] VITALS: BP 134/72; PULSE 98; RESP 20; TEMP 36.6; O2SAT 100
--- NOTE | 2021-03-04 12:20 | RAD_ITS ---
STUDY: X-RAY CHEST REASON FOR EXAM: Female, 70 years old. Wheezing. Shortness of breath and cough. TECHNIQUE: Single AP portable view of the chest. COMPARISON: Comparison is made with prior study 02/09/2021. FINDINGS: There is hyperinflation of the lungs consistent with chronic obstructive lung disease (COPD). Stable appearance of the peripheral right upper lobe nodule. Stable mild increased linear markings at the lung bases suggests a mild scarring. There is no demonstrated pleural abnormality. Normal size heart. Normal mediastinum and paty. Normal visualized pulmonary arteries. There is atherosclerotic calcification of the aortic arch with tortuosity. There are diffuse degenerative changes of the visualized thoracic spine. There is degenerative osteoarthritis of the bilateral shoulders. There is no demonstrated abnormality of the visualized soft tissue structures of the upper abdomen. RAD/Chest 1 View (Portable) IMPRESSION: Hyperinflation. Findings suggest a mild degree of increased markings at the lung bases suggestive of scarring. Stable 1.3 cm nodule in the peripheral lateral aspect of the right upper lobe. Electronically Signed: Joseph Curran MD at 12:40 EST , Service support ,
--- NOTE | 2021-03-04 12:41 | EX.ED.DYSGE1 ---
HPI History of Present Illness Chief Complaint: Shortness of Breath Informant: patient Narrative Narrative: 70-year-old female presenting with cough, shortness of breath and wheezing. She states she has a history of COPD and chronically wears 2 L home O2. She was admitted in January 2021 and had pneumonia and RSV at that time. She states she does not feel as poorly as she did during that admission but wanted to come in before she got worse. She is partially vaccinated for Covid. She denies fever. Denies chest pain. Denies other complaints. She started on prednisone yesterday. Prior similar symptoms: Yes Recent Illness/Hospitalization: Yes [facility] Medical History COPD (chronic obstructive pulmonary disease) COPD (chronic obstructive pulmonary disease) Former smoker Former smoker GERD (gastroesophageal reflux disease) Hypertension Hypertension Hypothyroid Hypothyroidism Immune deficiency disorder On home oxygen therapy Osteoporosis Home Medications Spiriva with HandiHaler 2 puff INHALATION DAILY 07/22/14 [History Last Taken Unknown] albuterol sulfate [ProAir HFA] 2 puff INHALATION Q4H PRN PRN 07/22/14 [History Last Taken Unknown] budesonide 1 applicatio INHALATION BID 07/22/14 [History Last Taken 07/21/14] formoterol fumarate [Perforomist] 20 mcg INHALATION BID 07/22/14 [History Last Taken 07/21/14] levothyroxine 100 mcg PO DAILY 07/22/14 [History Last Taken 07/22/14] omeprazole 20 mg PO DAILY 07/22/14 [History Last Taken 07/21/14] cholecalciferol (vitamin D3) 2,000 unit PO DAILY 05/23/19 [History Last Taken Unknown] zafirlukast 20 mg PO BID 05/23/19 [History Last Taken Unknown] multivitamin 1 ea PO DAILY 01/21/20 [History Last Taken Unknown] ipratropium bromide 2.5 ml INHALATION BID 11/26/20 [History Last Taken Unknown] prednisone 10 mg PO DAILY 11/26/20 [History Last Taken Unknown] amlodipine 10 mg PO DAILY 02/11/21 [History Last Taken 02/09/21] levofloxacin 750 mg PO DAILY #5 tab 02/13/21 [Rx Last Taken Unknown] prednisone 10 mg PO DAILY #40 tab 02/13/21 [Rx Last Taken Unknown] albuterol sulfate 2.5 mg INHALATION Q4H PRN 30 Days #90 ml 03/04/21 [Rx Last Taken Unknown] Allergy/AdvReac Type Severity Reaction Status Date / Time ampicillin Allergy stomach Verified 03/04/21 10:35 issues aspirin [ASA] Allergy Hives Verified 03/04/21 10:35 cephalexin monohydrate Allergy Hives Verified 03/04/21 10:35 [From Keflex] Family History Mother Hypertension Father Rheumatoid arthritis Heart disease Surgical History History of appendectomy History of cholecystectomy Hx of appendectomy Hx of cholecystectomy Hx of hysterectomy Hx of tonsillectomy Social History household members: spouse Smoking Status: Former smoker how long ago did patient quit smoking: Quit 2008, prior 1-1.5 ppd since youth. alcohol intake: never substance use type: does not use ROS ROS ED Constitutional Constitutional ED: Denies fever(s) Eyes Eyes: Denies change in vision ENT ENT ED: Denies rhinorrhea or sore throat Cardiovascular Cardiovascular: Denies chest pain or palpitations Respiratory/Chest Respiratory/Chest: Reports cough and dyspnea; Denies sputum Gastrointestinal Gastrointestinal: Denies abdominal pain, diarrhea, nausea or vomiting Genitourinary Genitourinary ED: Denies dysuria Musculoskeletal Musculoskeletal: Denies myalgias Integumentary Denies rash Neurologic Neurologic: Denies headache(s) Psychiatric Psychiatric: Denies suicidal thoughts EXAM Physical Exam Const Vital Signs: 03/04/21 10:35 03/04/21 11:17 03/04/21 11:31 Temperature 97.8 F Temperature Source Temporal Pulse Rate 92 85 Respiratory Rate 18 18 Respiratory Effort Normal Respiratory Depth Shallow Blood Pressure 152/87 H Blood Pressure Mean 108 Pulse Ox 100 Oxygen Delivery Method Nasal Cannula Room Air Oxygen Flow Rate (L/min) 2 03/04/21 12:13 03/04/21 13:07 Temperature 97.8 F Temperature Source Oral Pulse Rate 98 103 H Respiratory Rate 20 H 18 Respiratory Effort Respiratory Depth Blood Pressure 134/72 H 134/72 H Blood Pressure Mean 92 92 Pulse Ox 100 98 Oxygen Delivery Method Nasal Cannula Nasal Cannula Oxygen Flow Rate (L/min) 2 2 Positive well nourished and well developed General Appearance ED: well developed HEENT Reports normocephalic and head/scalp atraumatic Eyes PERRL and EOMs intact bilaterally Neck supple General: Negative for tenderness Chest Wall inspection of chest normal Resp normal respiratory effort Auscultation: wheezes Cardio regular rate and regular rhythm GI non-tender and non-distended Palpation: soft; Negative for guarding or rebound tenderness present no CVA tenderness Extremity normal to inspection Neuro oriented x3 Sensorium / Orientation: alert Psych mental status grossly normal Skin no rashes or lesions noted MDM MDM MDM Narrative Medical decision making narrative: Patient was given albuterol, Atrovent aerosols with much improvement. CBC shows white count 14.9, hemoglobin 11.4. Chemistries show potassium 2.7. She states when she is on prednisone this decreases her potassium. She was given potassium oral replacement. Her troponin is negative. Covid is negative. Chest x-ray read by myself and radiology shows no acute process. Patient states she needs albuterol refill for her nebulizer. She will continue prednisone. She feels comfortable with discharge home. She is advised signs and symptoms for which to return to the ED. Advised to follow up with primary care physician. Lab Data Attestation: I reviewed the patient's lab results. Labs: Laboratory Results - last 24 hr 03/04/21 03/04/21 11:30 11:30 WBC 14.9 H RBC 4.02 L Hgb 11.4 L Hct 34.8 L MCV 86.6 MCH 28.4 MCHC 32.8 RDW Std Deviation 42.8 RDW Coeff of [place] 13.6 Plt Count 328 MPV 9.4 Immature Gran % (Auto) 0.500 Neut % (Auto) 85.5 H Lymph % (Auto) 6.8 L Mayes % (Auto) 7.0 Eos % (Auto) 0.1 Baso % (Auto) 0.1 Absolute Neuts (auto) 12.7 H Absolute Lymphs (auto) 1.01 Nucleated RBC % 0 Sodium 141 Potassium 2.7 L* Chloride 103 Carbon Dioxide 31.0 Anion Gap 7 BUN 10 Creatinine 0.74 Estim Creat Clear Calc 40.63 Est GFR (MDRD) Af Amer 100 Est GFR (MDRD) Non-Af 82 BUN/Creatinine Ratio 13.5 Glucose 81 Calcium 9.5 Troponin I High Sens 16 Radiography Chest X-Ray - ED: 1 View, Read by ED Physician and Read by Radiologist Diagnostic Testing: Clinical Impression(s) from Imaging Studies Chest X-Ray 03/04/21 12:20 IMPRESSION: Hyperinflation. Findings suggest a mild degree of increased markings at the lung bases suggestive of scarring. Stable 1.3 cm nodule in the peripheral lateral aspect of the right upper lobe. Electronically Signed: Joseph Curran MD at 12:40 EST , Service support , Discharge Plan Triage Chief Complaint: Shortness of Breath ED Provider: Carri Barrios Dx/Rx/DC Orders Clinical Impression: COPD exacerbation Instructions: ED COPD Flare Prescriptions: New albuterol sulfate 2.5 mg /3 mL (0.083 %) solution for nebulization 2.5 mg inhalation Q4H PRN (Reason: shortness of breath or wheezing) 30 Days Qty: 90 RF: 0 No Action levothyroxine 100 MCG tablet 100 mcg PO DAILY RF: 0 omeprazole 20 MG capsule 20 mg PO DAILY RF: 0 budesonide 0.5 MG/2 ML suspension for nebulization 1 applicatio inhalation BID RF: 0 albuterol sulfate [ProAir HFA] 1 PUFF inhaler 2 puff inhalation Q4H PRN PRN (Reason: Sob &/Or Wheezing) RF: 0 Spiriva with HandiHaler 1 PUFF inhaler 2 puff inhalation DAILY RF: 0 formoterol fumarate [Perforomist] 20 MCG/2 ML solution for nebulization 20 mcg inhalation BID RF: 0 zafirlukast 20 tablet 20 mg PO BID RF: 0 cholecalciferol (vitamin D3) 2,000 UNIT capsule 2,000 unit PO DAILY RF: 0 multivitamin 1 EACH tablet 1 ea PO DAILY RF: 0 prednisone 10 mg tablet 10 mg PO DAILY RF: 0 Hold Instructions: Resume on 02/26/21. after taper completed ipratropium bromide 0.02 % Solution 2.5 ml INHALATION BID RF: 0 amlodipine 10 mg tablet 10 mg PO DAILY RF: 0 levofloxacin 750 mg Tablet 750 mg PO DAILY Qty: 5 RF: 0 prednisone 10 mg tablet 10 mg PO DAILY Qty: 40 RF: 0 Primary Care Provider: Bay Zepeda Referrals: Bay Zepeda DO [Primary Care Provider] - Disposition Disposition: Home, Self Care
[2021-03-04] MEDS: Potassium Chloride Oral Tablet 20 MEQ 40 MEQ PO (13:05)
[2021-03-04 13:07] VITALS: BP 134/72; PULSE 103; RESP 18; O2SAT 98
== END 2021-03-04 13:52 | disposition home or self-care (01) ==
PROVIDERS: Emergency Provider Emergency Medicine; PCP Family Medicine
DX: J44.1 Chronic obstructive pulmonary disease with (acute) exacerbation (principal); E87.6 Hypokalemia; T38.0X5A Adverse effect of glucocorticoids and synthetic analogues, initial encounter; I10 Essential (primary) hypertension; E03.9 Hypothyroidism, unspecified; K21.9 Gastro-esophageal reflux disease without esophagitis; M81.0 Age-related osteoporosis without current pathological fracture; Z99.81 Dependence on supplemental oxygen; Z79.899 Other long term (current) drug therapy; Z87.01 Personal history of pneumonia (recurrent); Z87.891 Personal history of nicotine dependence
CPT/HCPCS: 71045; 80048; 84484; 85025; 87426; 94640; 99284

== ENCOUNTER 2021-06-13 11:26 | Emergency (ER) | payer BC, MEDICARE, SELFPAY ==
[2021-06-13 11:28] VITALS: BP 157/85; PULSE 97; RESP 17; TEMP 36.7; O2SAT 95
--- NOTE | 2021-06-13 13:46 | CT_ITS ---
STUDY: CT BRAIN WITHOUT CONTRAST REASON FOR EXAM: Female, 71 years old. Head injury following a fall. Headaches. RADIATION DOSAGE (If Supplied By Facility): CTDIvol = ( 44.99 ) mGy, DLP = ( 812.98 ) mGycm TECHNIQUE: Transaxial CT imaging of the brain was performed without administration of intravenous contrast material. Individualized dose optimization techniques were used for this CT. COMPARISON: No relevant priors. FINDINGS: Normal soft tissue structures. Normal calvarium. There is mild cerebral atrophy with widening of the extra-axial spaces and ventricular dilatation. Normal white matter tracts of the cerebral hemispheres. Normal basal ganglia and thalami. Normal brainstem. Normal cerebellum. There is no intracranial hemorrhage. There are no findings of an acute ischemic infarction. Atherosclerotic calcification of the cavernous portions of the internal carotid arteries bilaterally. Normal visualized paranasal sinuses. CT/Brain/Head without Contrast IMPRESSION: Chronic involutional changes of the brain. Electronically Signed: Joseph Curran MD at 14:33 EST ,
[2021-06-13 13:47] VITALS: BP 188/89; PULSE 80; RESP 18; O2SAT 98
--- NOTE | 2021-06-13 13:47 | EX.ED.DYSGE1 ---
HPI <TAN Ashley - Last Filed: 06/13/21 14:41> History of Present Illness Chief Complaint: Hypertension Narrative Narrative: Patient slipped getting into her van a couple days ago and hit her head on the car door. She also bruised her left shoulder. No LOC. She states she has been ambulatory since then and had a mild headache. No vision changes, nausea, or vomiting. No neck or back pain. She also noticed her blood pressure was high this weekend with a systolic reading of 190s. She takes amlodipine 5 mg once daily and has been compliant. She previously was on 10 mg but they decreased it 1 month ago due to leg swelling. When she called her primary care doctor today about the symptoms they told her to go to the ER. She does not take aspirin or blood thinners. PFS <TAN Ashley - Last Filed: 06/13/21 14:41> [facility] Medical History COPD (chronic obstructive pulmonary disease) COPD (chronic obstructive pulmonary disease) Former smoker Former smoker GERD (gastroesophageal reflux disease) Hypertension Hypertension Hypothyroid Hypothyroidism Immune deficiency disorder On home oxygen therapy Osteoporosis Home Medications Spiriva with HandiHaler 2 puff INHALATION DAILY 07/22/14 [History Last Taken Unknown] albuterol sulfate [ProAir HFA] 2 puff INHALATION Q4H PRN PRN 07/22/14 [History Last Taken Unknown] budesonide 1 applicatio INHALATION BID 07/22/14 [History Last Taken 07/21/14] formoterol fumarate [Perforomist] 20 mcg INHALATION BID 07/22/14 [History Last Taken 07/21/14] levothyroxine 100 mcg PO DAILY 07/22/14 [History Last Taken 07/22/14] omeprazole 20 mg PO DAILY 07/22/14 [History Last Taken 07/21/14] cholecalciferol (vitamin D3) 2,000 unit PO DAILY 05/23/19 [History Last Taken Unknown] zafirlukast 20 mg PO BID 05/23/19 [History Last Taken Unknown] multivitamin 1 ea PO DAILY 01/21/20 [History Last Taken Unknown] ipratropium bromide 2.5 ml INHALATION BID 11/26/20 [History Last Taken Unknown] prednisone 10 mg PO DAILY 11/26/20 [History Last Taken Unknown] amlodipine 10 mg PO DAILY 02/11/21 [History Last Taken 02/09/21] levofloxacin 750 mg PO DAILY #5 tab 02/13/21 [Rx Last Taken Unknown] prednisone 10 mg PO DAILY #40 tab 02/13/21 [Rx Last Taken Unknown] albuterol sulfate 2.5 mg INHALATION Q4H PRN 30 Days #90 ml 03/04/21 [Rx Last Taken Unknown] Allergy/AdvReac Type Severity Reaction Status Date / Time ampicillin Allergy stomach Verified 06/13/21 11:27 issues aspirin [ASA] Allergy Hives Verified 06/13/21 11:27 cephalexin monohydrate Allergy Hives Verified 06/13/21 11:27 [From Keflex] Family History Mother Hypertension Father Rheumatoid arthritis Heart disease Surgical History History of appendectomy History of cholecystectomy Hx of appendectomy Hx of cholecystectomy Hx of hysterectomy Hx of tonsillectomy Social History household members: spouse Smoking Status: Former smoker how long ago did patient quit smoking: Quit 2008, prior 1-1.5 ppd since youth. alcohol intake: never substance use type: does not use ROS <TAN Ashley - Last Filed: 06/13/21 14:41> ROS ED ROS Narrative Constitutional: Negative for fever, chills, malaise. Eyes: Negative for visual change. ENT: Negative for sore throat, ear pain, rhinorrhea. CVS: Negative for palpitations, chest pain, syncope. Respiratory: Negative for shortness of breath, cough. GI: Negative for abdominal pain, nausea, vomiting. : Negative for dysuria, hematuria or frequency. Neuro: Positive for headache, negative for motor/sensory dysfunction. Skin: Negative for rash, abscess, or wound. Musc: Negative for joint pain, swelling, trauma. Heme: Negative for easy bruising, bleeding, lymphadenopathy. EXAM <TAN Ashley - Last Filed: 06/13/21 14:41> Physical Exam Narrative Exam Narrative: CONST: Patient sitting in no acute distress. EYES: Normal inspection. PERRLA, extraocular motion intact. HEAD: Head normocephalic, tiny left frontal scalp abrasion, no raccoon eyes or burks sign, no hemotympanum, no nasal septal hematoma, no CSF otorrhea or rhinorrhea. NECK: Normal inspection. No midline spinal tenderness, no step off or crepitus. RESP: No respiratory distress, CTAB. Chest nontender. CVS: Regular rate and rhythm, no murmur, no gallop. ABD: Soft and nontender, no guarding or rebound, nondistended. Pelvis: Stable. Back: Normal inspection, no midline spinal tenderness, no step off or crepitus. SKIN: Color normal, no rash, warm, dry, intact. EXTREMITIES: Normal appearance, no pedal edema. No bony tenderness of upper or lower extremities, full range of motion, 2+ radial and DP pulses. NEURO: Oriented x4. PSYCH: Normal affect. Const Vital Signs: 06/13/21 11:28 06/13/21 13:43 06/13/21 13:47 Temperature 98.0 F Temperature Source Oral Pulse Rate 97 80 Respiratory Rate 17 18 Respiratory Effort Normal Non-Labored Blood Pressure 157/85 H 188/89 H Blood Pressure Mean 109 122 Pulse Ox 95 98 Oxygen Delivery Method Room Air Nasal Cannula Oxygen Flow Rate (L/min) 2 06/13/21 14:58 Temperature Temperature Source Pulse Rate 84 Respiratory Rate 18 Respiratory Effort Blood Pressure 176/101 H Blood Pressure Mean Pulse Ox Oxygen Delivery Method Oxygen Flow Rate (L/min) <Dr. Dee Vu MD - Last Filed: 06/13/21 21:45> Physical Exam Const Vital Signs: 06/13/21 11:28 06/13/21 13:43 06/13/21 13:47 Temperature 98.0 F Temperature Source Oral Pulse Rate 97 80 Respiratory Rate 17 18 Respiratory Effort Normal Non-Labored Blood Pressure 157/85 H 188/89 H Blood Pressure Mean 109 122 Pulse Ox 95 98 Oxygen Delivery Method Room Air Nasal Cannula Oxygen Flow Rate (L/min) 2 06/13/21 14:58 Temperature Temperature Source Pulse Rate 84 Respiratory Rate 18 Respiratory Effort Blood Pressure 176/101 H Blood Pressure Mean Pulse Ox Oxygen Delivery Method Oxygen Flow Rate (L/min) MDM <TAN Ashley - Last Filed: 06/13/21 14:41> MDM MDM Narrative Medical decision making narrative: Patient had a mechanical fall with closed head injury without loss of consciousness several days ago. She presented for evaluation secondary to this. She also incidentally noted high blood pressures over the weekend. She appears well nontoxic. Vital signs within normal limits. Initial BP 157/85. She has a tiny left scalp abrasion but no signs of basilar skull fracture. She does have some bruising over the left upper arm but no bony tenderness. No other injuries on exam and neurovascularly intact. CT brain is negative. Her blood pressure did slightly trend up here. She reports they decreased her amlodipine dose 1 month ago due to lower extremity swelling. I recommend she keep a daily BP log and see her primary care doctor in the next few days. She was discharged in stable condition. Diagnoses 1. Closed head injury without loss of consciousness 2. Chronic hypertension Radiography Diagnostic Testing: Clinical Impression(s) from Imaging Studies Brain CT 06/13/21 13:46 IMPRESSION: Chronic involutional changes of the brain. Electronically Signed: Joseph Curran MD at 14:33 EST , <Dr. Dee Vu MD - Last Filed: 06/13/21 21:45> [facility] Radiography Diagnostic Testing: Clinical Impression(s) from Imaging Studies Brain CT 06/13/21 13:46 IMPRESSION: Chronic involutional changes of the brain. Electronically Signed: Joseph Curran MD at 14:33 EST , Treatment and Re-Evaluation Comments:: Patient seen and evaluated with PA. Note reviewed by myself and endorsed. Patient presents after slip on ice and fall couple days ago. She struck her head against the side of the car. No loss of consciousness. Patient sitting upright in bed no acute distress. Head neck examination unremarkable with no external sign of trauma. Heart is regular rate and rhythm. Lung sounds are clear. Abdomen is soft nontender. Neuro exam reveals no focal neuro deficits. CT head unremarkable. Patient's blood pressure is noted to be elevating here and she does report having high blood pressure at home. Her BP meds were recently changed by her PCP. We did recommend keeping a journal of these and follow-up with her PCP as she will likely need a medication adjustment. Instructions for closed head injury are provided for her. Return instructions given. Discharge Plan Triage Chief Complaint: Hypertension ED Provider: Alessandra Calderon Dx/Rx/DC Orders Clinical Impression: Head injury Instructions: ED Head Injury (Adult) Prescriptions: No Action levothyroxine 100 MCG tablet 100 mcg PO DAILY RF: 0 omeprazole 20 MG capsule 20 mg PO DAILY RF: 0 budesonide 0.5 MG/2 ML suspension for nebulization 1 applicatio inhalation BID RF: 0 albuterol sulfate [ProAir HFA] 1 PUFF inhaler 2 puff inhalation Q4H PRN PRN (Reason: Sob &/Or Wheezing) RF: 0 Spiriva with HandiHaler 1 PUFF inhaler 2 puff inhalation DAILY RF: 0 formoterol fumarate [Perforomist] 20 MCG/2 ML solution for nebulization 20 mcg inhalation BID RF: 0 zafirlukast 20 tablet 20 mg PO BID RF: 0 cholecalciferol (vitamin D3) 2,000 UNIT capsule 2,000 unit PO DAILY RF: 0 multivitamin 1 EACH tablet 1 ea PO DAILY RF: 0 prednisone 10 mg tablet 10 mg PO DAILY RF: 0 Hold Instructions: Resume on 02/26/21. after taper completed ipratropium bromide 0.02 % Solution 2.5 ml INHALATION BID RF: 0 amlodipine 10 mg tablet 10 mg PO DAILY RF: 0 levofloxacin 750 mg Tablet 750 mg PO DAILY Qty: 5 RF: 0 prednisone 10 mg tablet 10 mg PO DAILY Qty: 40 RF: 0 albuterol sulfate 2.5 mg /3 mL (0.083 %) solution for nebulization 2.5 mg inhalation Q4H PRN (Reason: shortness of breath or wheezing) 30 Days Qty: 90 RF: 0 Primary Care Provider: Bay Zepeda Referrals: Bay Zepeda DO [Primary Care Provider] - Activity Restrictions/Additional Instructions: Today the CAT scan of your head look normal. There are no broken bones or internal bleeding. Your blood pressure was slightly high in the ER. This may be due to recently decreasing her amlodipine dose. Please keep a log of your blood pressure once a day and follow-up with your primary care doctor this week. Disposition Disposition: Home, Self Care Discharge Date/Time: 06/13/21 14:59
[2021-06-13 14:58] VITALS: BP 176/101; PULSE 84; RESP 18
--- NOTE | 2021-06-14 11:42 | CASEMGMT ---
HEMANT LEUNG ED follow-up: Date of ER visit: 06/13/2021 Presenting ER complaint: Hypertension and fall HEMANT LEUNG placed call to patient's telephone number listed on demographics and patient answered. HEMANT LEUNG introduced self and role at [facility]. Patient reports doing okay today and BP 140/78. Patient reports she has been in contact with her PCP and a new anti-hypertensive prescription medication was phoned into the pharmacy. Patient states she plans to grape picker medication this afternoon. Patient admits to mild headache discomfort but feeling improved today. Denies mobility concerns. Patient encouraged to keep BP log and take medication as prescribed. Voices understanding. Patient denies questions or concerns. HEMANT Plascencia CM
== END 2021-06-13 14:59 | disposition home or self-care (01) ==
PROVIDERS: Emergency Provider Physician Assistant; PCP Family Medicine; Visit Provider Physician Assistant
DX: I10 Essential (primary) hypertension (principal); J44.9 Chronic obstructive pulmonary disease, unspecified; S00.01XA Abrasion of scalp, initial encounter; W00.0XXA Fall on same level due to ice and snow, initial encounter; E03.9 Hypothyroidism, unspecified; M81.0 Age-related osteoporosis without current pathological fracture; K21.9 Gastro-esophageal reflux disease without esophagitis; Z99.81 Dependence on supplemental oxygen; Z79.899 Other long term (current) drug therapy; Z87.891 Personal history of nicotine dependence
CPT/HCPCS: 70450; 99282

== ENCOUNTER 2021-07-20 07:59 | Emergency (ER) | payer BC, MEDICARE, SELFPAY ==
[2021-07-20 08:00] VITALS: BP 182/92; PULSE 83; RESP 17; TEMP 36.1; O2SAT 100; BMI 30.2
[2021-07-20 08:08] VITALS: O2SAT 96
--- NOTE | 2021-07-20 08:21 | RAD_ITS ---
STUDY: X-RAY - PELVIS REASON FOR EXAM: Female, 71 years old. Fall TECHNIQUE: One view of the pelvis was obtained. COMPARISON: None. FINDINGS: There is a non-specific bowel gas pattern. Normal visualized soft tissue structures. Normal bilateral iliac wings, sacroiliac joints and visualized sacrum. Normal visualized bilateral superior and inferior pubic rami. Normal pubic symphysis. Normal ischial tuberosities. Normal visualized right femoral head. Normal right acetabulum. Normal right hip joint. Normal visualized left femoral head. Normal left acetabulum. Normal left hip joint. RAD/Pelvis 1 or 2 Views IMPRESSION: Normal x-ray examination of the pelvis. Electronically Signed: Joseph Curran MD at 9:06 EDT ,
--- NOTE | 2021-07-20 08:21 | RAD_ITS ---
STUDY: X-RAY CHEST REASON FOR EXAM: Female, 71 years old. fell. Right posterior rib pain TECHNIQUE: PA and lateral views of the chest. COMPARISON: Comparison is made with prior study dated 03/04/2000 FINDINGS: There is hyperinflation of the lungs consistent with chronic obstructive lung disease (COPD). Stable 1.9 cm nodule in the peripheral lateral aspect of the right upper lobe. There is no demonstrated pleural abnormality. Normal size heart. Normal mediastinum and paty. Normal visualized pulmonary arteries. There is atherosclerotic calcification of the aortic arch with tortuosity. There are diffuse degenerative changes of the visualized thoracic spine. There is degenerative osteoarthritis of the bilateral shoulders. There is no demonstrated abnormality of the visualized soft tissue structures of the upper abdomen. RAD/Chest PA and Lateral IMPRESSION: Stable 1.9 cm nodule in the peripheral lateral aspect of the right upper lobe. A CT scan is recommended for further evaluation. Hyperinflation. Electronically Signed: Joseph Curran MD at 9:09 EDT ,
--- NOTE | 2021-07-20 08:22 | EDS_ITS ---
HPI HPI - Fall History of Present Illness Chief Complaint: Fall Informant: patient Occured/Mechanism Occurred: Today and Hours Mechanism/Context: Yes slip Usually ambulates: Without assistance Pain/Injury Pain Location: back Quality of Pain: Sharp Current Severity: Mild Maximum Severity: Mild Associated Symptoms Associated Symptoms: Negative for Parasthesias, Weakness, Loss of function, Inability to ambulate, Loss of consciousness and Amnesia Narrative Narrative: 71-year-old female with history of COPD on 2 L of oxygen at home walking on her outside steps at 7 AM this morning slipped on ice fell down the last 3 steps. Hit her right forearm causing an abrasion. In her right back of the lower rib cage. Denies any LOC. No head injury. She is on no blood thinners. Denies any chest or abdominal pain. [place] fine prior to the fall. Prior similar symptoms: No Recent Illness/Hospitalization: No PFSH PFSH Medical History Acute and chronic respiratory failure with hypoxia Anemia COPD (chronic obstructive pulmonary disease) COPD (chronic obstructive pulmonary disease) COPD (chronic obstructive pulmonary disease) Former smoker Former smoker GERD (gastroesophageal reflux disease) GERD (gastroesophageal reflux disease) HTN (hypertension) Hypertension Hypertension Hypothyroid Hypothyroidism Immune deficiency disorder Immune deficiency disorder Leukocytosis Obesity (BMI 30.0-34.9) On home oxygen therapy Osteoporosis RSV infection Thrombocytosis Thrush Home Medications Spiriva with HandiHaler 2 puff INHALATION DAILY 07/22/14 [History Last Taken Unknown] albuterol sulfate [ProAir HFA] 2 puff INHALATION Q4H PRN PRN 07/22/14 [History Last Taken Unknown] budesonide 1 applicatio INHALATION BID 07/22/14 [History Last Taken 07/21/14] formoterol fumarate [Perforomist] 20 mcg INHALATION BID 07/22/14 [History Last Taken 07/21/14] levothyroxine 100 mcg PO DAILY 07/22/14 [History Last Taken 07/22/14] omeprazole 20 mg PO DAILY 07/22/14 [History Last Taken 07/21/14] cholecalciferol (vitamin D3) 2,000 unit PO DAILY 05/23/19 [History Last Taken Unknown] zafirlukast 20 mg PO BID 05/23/19 [History Last Taken Unknown] multivitamin 1 ea PO DAILY 01/21/20 [History Last Taken Unknown] ipratropium bromide 2.5 ml INHALATION BID 11/26/20 [History Last Taken Unknown] prednisone 10 mg PO DAILY 11/26/20 [History Last Taken Unknown] amlodipine 10 mg PO DAILY 02/11/21 [History Last Taken 02/09/21] levofloxacin 750 mg PO DAILY #5 tab 02/13/21 [Rx Last Taken Unknown] prednisone 10 mg PO DAILY #40 tab 02/13/21 [Rx Last Taken Unknown] albuterol sulfate 2.5 mg INHALATION Q4H PRN 30 Days #90 ml 03/04/21 [Rx Last Taken Unknown] Allergy/AdvReac Type Severity Reaction Status Date / Time ampicillin Allergy stomach Verified 07/20/21 08:00 issues aspirin [ASA] Allergy Hives Verified 07/20/21 08:00 cephalexin monohydrate Allergy Hives Verified 07/20/21 08:00 [From [employer]] Family History Mother Hypertension Father Rheumatoid arthritis Heart disease Surgical History History of appendectomy History of cholecystectomy Hx of appendectomy Hx of cholecystectomy Hx of hysterectomy Hx of tonsillectomy Social History household members: spouse Smoking Status: Former smoker how long ago did patient quit smoking: Quit 2008, prior 1-1.5 ppd since youth. alcohol intake: never substance use type: does not use ROS ROS ED ROS Narrative No recent illness. Review of Systems ROS Unobtainable: Denies due to encephalopathy Constitutional Constitutional ED: Denies fever(s) Eyes Eyes: Denies change in vision ENT ENT ED: Denies ear pain Cardiovascular Cardiovascular: Denies chest pain Respiratory/Chest Respiratory/Chest: Denies dyspnea Gastrointestinal Gastrointestinal: Denies abdominal pain Genitourinary Genitourinary ED: Denies dysuria Musculoskeletal Musculoskeletal: Denies myalgias Integumentary Denies rash Neurologic Neurologic: Denies headache(s) Psychiatric Psychiatric: Denies depression Endocrine Endocrinology: Denies polyuria Hematologic/Lymphatic Hematologic/Lymphatic: Denies easy bruising EXAM Physical Exam Narrative Exam Narrative: 71-year-old sitting upright in a chair. Vital signs are stable afebrile. On her 2 L of oxygen she is on 100%. H EENT exam unremarkable. Atraumatic. Pupils round reactive light. No facial or scalp trauma nontender. C-spine nontender. Trachea midline. Back thoracic lumbar spine are nontender. She has and abrasion and contusion over her right posterior rib midportion of her back. Spine nontender. Left side nontender. No crepitance or subcu air. No bony deformity. Lungs coarse breath sounds bilaterally she has COPD. Few scattered wheezes. No distress. Heart regular rhythm rate about 80 no murmur. Anterior chest wall nontender. Sternum nontender. Abdomen soft nontender. Pelvic girdle is intact. She has full range of motion of both lower extremities. No deformity. Dorsi plantarflexion intact. She has normal calibration tester with both hands. She has an abrasion on her right forearm. There is no bony deformity. She has normal calibration tester strength bilaterally. Flexion extension of both wrists elbows and shoulders. Neurologically she is awake and alert answering questions following commands. GCS of 15. Const Vital Signs: 07/20/21 08:00 07/20/21 08:08 Temperature 97.0 F L Temperature Source Temporal Pulse Rate 83 Respiratory Rate 17 Respiratory Effort Normal Non-Labored Respiratory Depth Normal Respiratory Pattern Normal Blood Pressure 182/92 H Blood Pressure Mean 122 Pulse Ox 100 96 Oxygen Delivery Method Room Air Nasal Cannula Oxygen Flow Rate (L/min) 2 Positive well nourished and well developed; Negative for obese, cachectic, contractures or unkempt General Appearance ED: well developed and NAD; Negative for unkempt, cachectic or contractures Nutritional Appearance: Negative for cachectic or obese HEENT Reports normocephalic atraumatic; Negative for trauma, hematoma or tenderness Eyes PERRL and EOMs intact bilaterally General Eye ED: Negative for pale conjunctiva or scleral icterus Neck full ROM, no lymphadenopathy and supple General: Negative for tenderness Chest Wall inspection of chest normal and palpation of chest normal Resp normal respiratory effort, no retractions and No clear to auscultation bilaterally Resp Narrative: History of COPD. Coarse breath sounds bilaterally. Equal symmetrical. Few scattered expiratory wheezes. Auscultation: wheezes; Negative for rales or rhonchi Cardio regular rate, regular rhythm, S1 normal heart sound, S2 normal heart sound and no murmurs GI non-tender, non-distended and no masses Auscultation: normoactive bowel sounds Palpation: soft; Negative for guarding or rebound tenderness present Back/Spine no CVA tenderness Back/Spine Narrative: Right posterior mid to lower rib tenderness. Contusion and abrasion. General Back: Negative for CVA tenderness Cervical Spine: Negative for cervical spine tenderness Thoracic Spine / Upper Back: Negative for thoracic spinal tenderness Lumbar Spine / Lower Back: Negative for lumbar spinal tenderness Extremity normal to inspection, full ROM, normal capillary refill, no joint enlargement, no clubbing, cyanosis or edema, no calf tenderness and no pedal edema Neuro oriented x3, moves all extremities and no focal motor deficits Tangela Coma Scale: document GCS findings Spontaneous Obeys Commands Oriented 15 Sensorium / Orientation: alert, oriented to person, oriented to place and oriented to time; Negative for orientation impaired, confused, lethargic or stuporous Motor Exam: strength 5/5 throughout Psych mental status grossly normal and thought process normal Appearance: Negative for unkempt Skin Lesions: no lesions and No lesion noted Rashes: no rashes and rashes noted Trauma: abrasion MDM MDM MDM Narrative Medical decision making narrative: 71-year-old female on oxygen for COPD. Slipped on ice 1 down 3 outside cement steps. Has an abrasion to her right forearm. Possible rib injury on her right mid back. And mild tenderness to her posterior iliac crest. X-rays being obtained. She only wanted Motrin for pain. Repeat exam patient is doing well at 9:50 AM. We went over her x-rays. She is feeling improved. She is comfortable being discharged home. She and I discussed that it could still be a nondisplaced rib fracture that is not seen on the x-rays. Radiography Diagnostic Testing: Clinical Impression(s) from Imaging Studies Chest X-Ray 07/20/21 08:21 IMPRESSION: Stable 1.9 cm nodule in the peripheral lateral aspect of the right upper lobe. A CT scan is recommended for further evaluation. Hyperinflation. Electronically Signed: Joseph Curran MD at 9:09 EDT , Pelvis X-Ray 07/20/21 08:21 IMPRESSION: Normal x-ray examination of the pelvis. Electronically Signed: Joseph Curran MD at 9:06 EDT , Chest x-ray, 2 views, interpreted by myself and radiologist shows no acute abnormality. Radiologist noted a right upper lobe nodule. Patient's had that evaluated in the past and states it is getting smaller. Pelvis x-ray 1 view shows no acute abnormality. Interpreted by myself and radiologist. No fracture. Discharge Plan Triage Chief Complaint: Fall ED Provider: Hayder Bob Dx/Rx/DC Orders Clinical Impression: Fall, Rib contusion, Contusion of forearm, right Instructions: ED Contusion, Upper Extremity, ED Contusion, Rib Prescriptions: No Action levothyroxine 100 MCG tablet 100 mcg PO DAILY RF: 0 omeprazole 20 MG capsule 20 mg PO DAILY RF: 0 budesonide 0.5 MG/2 ML suspension for nebulization 1 applicatio inhalation BID RF: 0 albuterol sulfate [ProAir HFA] 1 PUFF inhaler 2 puff inhalation Q4H PRN PRN (Reason: Sob &/Or Wheezing) RF: 0 Spiriva with HandiHaler 1 PUFF inhaler 2 puff inhalation DAILY RF: 0 formoterol fumarate [Perforomist] 20 MCG/2 ML solution for nebulization 20 mcg inhalation BID RF: 0 zafirlukast 20 tablet 20 mg PO BID RF: 0 cholecalciferol (vitamin D3) 2,000 UNIT capsule 2,000 unit PO DAILY RF: 0 multivitamin 1 EACH tablet 1 ea PO DAILY RF: 0 prednisone 10 mg tablet 10 mg PO DAILY RF: 0 Hold Instructions: Resume on 02/26/21. after taper completed ipratropium bromide 0.02 % Solution 2.5 ml INHALATION BID RF: 0 amlodipine 10 mg tablet 10 mg PO DAILY RF: 0 levofloxacin 750 mg Tablet 750 mg PO DAILY Qty: 5 RF: 0 prednisone 10 mg tablet 10 mg PO DAILY Qty: 40 RF: 0 albuterol sulfate 2.5 mg /3 mL (0.083 %) solution for nebulization 2.5 mg inhalation Q4H PRN (Reason: shortness of breath or wheezing) 30 Days Qty: 90 RF: 0 Primary Care Provider: Bay Zepeda Referrals: Bay Zepeda DO [Primary Care Provider] - As Needed Activity Restrictions/Additional Instructions: Ice to your back and forearm to decrease pain and swelling. Keep the right forearm clean and antibiotic ointment daily. Tylenol and Motrin for pain. Follow-up if not improving. Your x-rays did not show any obvious broken bones as we discussed you can have a cracked rib that does not show up on the x-ray. Use a pillow to support your injured rib area. Disposition Disposition: Home, Self Care
[2021-07-20] MEDS: Ibuprofen 100 MG/5 ML UDC 400 MG PO (08:27)
[2021-07-20 10:08] VITALS: BP 141/67; PULSE 81; RESP 16; O2SAT 96
--- NOTE | 2021-07-22 14:21 | CM.ED ---
ER RNCM DC F/u Call: Seen in ER 07.20.21 for fall Called patient listed cell number, no answer. VM did identify correct patient and VM left with this writers contact to return call if having any questions or issues. Orlando Gonzalez RNCM
== END 2021-07-20 10:09 | disposition home or self-care (01) ==
PROVIDERS: Emergency Provider Emergency Medicine; PCP Family Medicine; Visit Provider Emergency Medicine
DX: S20.211A Contusion of right front wall of thorax, initial encounter (principal); J44.9 Chronic obstructive pulmonary disease, unspecified; S50.11XA Contusion of right forearm, initial encounter; W00.1XXA Fall from stairs and steps due to ice and snow, initial encounter; Y93.01 Activity, walking, marching and hiking; Y92.008 Other place in unspecified non-institutional (private) residence as the place of occurrence of the external cause; Y99.8 Other external cause status; I10 Essential (primary) hypertension; K21.9 Gastro-esophageal reflux disease without esophagitis; E03.9 Hypothyroidism, unspecified; E66.9 Obesity, unspecified; Z68.30 Body mass index [BMI] 30.0-30.9, adult; Z99.81 Dependence on supplemental oxygen; Z79.899 Other long term (current) drug therapy; Z87.891 Personal history of nicotine dependence
CPT/HCPCS: 71046; 72170; 99283

== ENCOUNTER 2021-07-27 18:38 | Emergency (ER) | payer BC, MEDICARE, SELFPAY ==
[2021-07-27 18:39] VITALS: BP 166/95; PULSE 107; RESP 28; TEMP 37; O2SAT 98; BMI 30.4
--- NOTE | 2021-07-27 19:05 | RAD_ITS ---
STUDY: X-RAY CHEST REASON FOR EXAM: Female, 71 years old. CHEST PAIN SOB TECHNIQUE: XR Chest 1 View COMPARISON: Jul 20 2021 8:35am FINDINGS: There is no demonstrated pleural abnormality. Stable 1.7 cm nodule in the lateral aspect of the right upper lobe. A CT scan is recommended for further evaluation. Normal size heart. Normal mediastinum and paty. Normal visualized pulmonary arteries. There is atherosclerotic calcification of the aortic arch with tortuosity. There are diffuse degenerative changes of the visualized thoracic spine. There is degenerative osteoarthritis of the bilateral shoulders. There is no demonstrated abnormality of the visualized soft tissue structures of the upper abdomen. RAD/Chest 1 View (Portable) IMPRESSION: Stable 1.7 cm nodule in the lateral aspect of the right upper lobe. A CT scan is recommended for further evaluation. Electronically Signed: Darian Hernandez MD at 19:23 EDT ,
[2021-07-27 20:16] LABS: Anion Gap 3 (5-15); BUN 16 mg/dL (7-18); BUN/Creat Ratio 15.8 RATIO (10-20); Chloride 105 mmol/L (98-107); Creatinine, Serum 1.01 mg/dL (0.55-1.02); EST Glomerular Filtration Rate 58 mL/min (>60); Est Glom Filt Rate - Afr Amer 70 mL/min (>60); Estimated Creatinine Clearance 39.67 ml/min; Glucose 123 mg/dL (74-106); Potassium 4.1 mmol/L (3.5-5.1); Sodium Level 138 mmol/L (136-145)
[2021-07-27 20:42] VITALS: O2SAT 93
[2021-07-27 20:43] VITALS: RESP 101; O2SAT 93
--- NOTE | 2021-07-27 20:43 | ED.VIS.DYS ---
HPI History of Present Illness Chief Complaint: Shortness of Breath Narrative Narrative: 71-year-old female presenting with dyspnea. She has is chronically. Patient states that she had a fall about a week ago and had rib x-rays of her right ribs after falling on them. She states her rib x-rays were normal. She reports pain in this area since that time. She states she is always wheezing. She is on 3 L of oxygen wears as baseline. She is not had a fever, chills. No nausea, vomiting. No radiation of the rib pain. No headache. Patient did a breathing treatment before coming to the ER and took [address] [facility] Medical History Acute and chronic respiratory failure with hypoxia Anemia COPD (chronic obstructive pulmonary disease) COPD (chronic obstructive pulmonary disease) COPD (chronic obstructive pulmonary disease) Former smoker Former smoker GERD (gastroesophageal reflux disease) GERD (gastroesophageal reflux disease) HTN (hypertension) Hypertension Hypertension Hypothyroid Hypothyroidism Immune deficiency disorder Immune deficiency disorder Leukocytosis Obesity (BMI 30.0-34.9) On home oxygen therapy Osteoporosis RSV infection Thrombocytosis Thrush Home Medications Spiriva with HandiHaler 2 puff INHALATION DAILY 07/22/14 [History Last Taken Unknown] albuterol sulfate [ProAir HFA] 2 puff INHALATION Q4H PRN PRN 07/22/14 [History Last Taken Unknown] budesonide 1 applicatio INHALATION BID 07/22/14 [History Last Taken 07/21/14] formoterol fumarate [Perforomist] 20 mcg INHALATION BID 07/22/14 [History Last Taken 07/21/14] levothyroxine 100 mcg PO DAILY 07/22/14 [History Last Taken 07/22/14] omeprazole 20 mg PO DAILY 07/22/14 [History Last Taken 07/21/14] cholecalciferol (vitamin D3) 2,000 unit PO DAILY 05/23/19 [History Last Taken Unknown] zafirlukast 20 mg PO BID 05/23/19 [History Last Taken Unknown] multivitamin 1 ea PO DAILY 01/21/20 [History Last Taken Unknown] ipratropium bromide 2.5 ml INHALATION BID 11/26/20 [History Last Taken Unknown] prednisone 10 mg PO DAILY 11/26/20 [History Last Taken Unknown] amlodipine 10 mg PO DAILY 02/11/21 [History Last Taken 02/09/21] levofloxacin 750 mg PO DAILY #5 tab 02/13/21 [Rx Last Taken Unknown] prednisone 10 mg PO DAILY #40 tab 02/13/21 [Rx Last Taken Unknown] albuterol sulfate 2.5 mg INHALATION Q4H PRN 30 Days #90 ml 03/04/21 [Rx Last Taken Unknown] levofloxacin 500 mg PO DAILY #6 tab 07/27/21 [Rx Last Taken Unknown] prednisone 50 mg PO DAILY 5 Days #25 tab 07/27/21 [Rx Last Taken Unknown] Allergy/AdvReac Type Severity Reaction Status Date / Time ampicillin Allergy stomach Verified 07/27/21 18:43 issues aspirin [ASA] Allergy Hives Verified 07/27/21 18:43 cephalexin monohydrate Allergy Hives Verified 07/27/21 18:43 [From [employer]] Family History Mother Hypertension Father Rheumatoid arthritis Heart disease Surgical History History of appendectomy History of cholecystectomy Hx of appendectomy Hx of cholecystectomy Hx of hysterectomy Hx of tonsillectomy Social History household members: spouse Smoking Status: Former smoker how long ago did patient quit smoking: Quit 2008, prior 1-1.5 ppd since youth. alcohol intake: never substance use type: does not use ROS ROS ED Constitutional Constitutional ED: Denies chills or fever(s) Eyes Eyes: Denies blurry vision or diplopia ENT ENT ED: Denies rhinorrhea or sore throat Cardiovascular Cardiovascular: Reports other Details: Right rib pain Respiratory/Chest Respiratory/Chest: Reports dyspnea; Denies cough or sputum Gastrointestinal Gastrointestinal: Denies abdominal pain, nausea or vomiting Genitourinary Genitourinary ED: Denies dysuria or hematuria Musculoskeletal Musculoskeletal: Denies arthralgias or myalgias Integumentary Denies abscess or rash Neurologic Neurologic: Denies headache(s) or weakness Psychiatric Psychiatric: Denies anxiety or depression EXAM Physical Exam Const Vital Signs: 07/27/21 18:39 07/27/21 20:42 07/27/21 20:43 Temperature 98.6 F Temperature Source Oral Pulse Rate 107 H Respiratory Rate 28 H 101 H Respiratory Effort Blood Pressure 166/95 H Blood Pressure Mean 118 Pulse Ox 98 93 93 Oxygen Delivery Method Nasal Cannula Nasal Cannula Nasal Cannula Oxygen Flow Rate (L/min) 2 3 07/27/21 20:44 07/27/21 20:51 Temperature Temperature Source Pulse Rate 100 Respiratory Rate 20 H Respiratory Effort Short of Breath Labored Accessory Muscle Use Blood Pressure Blood Pressure Mean Pulse Ox Oxygen Delivery Method Nasal Cannula Oxygen Flow Rate (L/min) 3 Positive well nourished General Appearance ED: NAD; Negative for pallor HEENT Reports moist mucous membranes atraumatic Eyes PERRL and EOMs intact bilaterally Neck no lymphadenopathy and supple Resp normal respiratory effort and clear to auscultation bilaterally Cardio regular rate Rate: tachycardic Neuro oriented x3 and CN's II-XII intact bilaterally Sensorium / Orientation: alert Psych mental status grossly normal Thought Process: normal thought process Skin General Skin Exam: Negative for jaundice or pallor MDM MDM MDM Narrative Medical decision making narrative: Patient presenting with shortness of breath. She is wearing her baseline oxygen. She complains of rib pain but had a fall last week and had injury to this area. Rib series at that time was negative. Chest x-ray on my interpretation today shows shows no acute cardiopulmonary process. The radiologist does state there is a stable 1.7 cm nodule and recommend CT scan for follow-up however does not believe she needs this emergently. Patient given breathing treatments and she started taking prednisone. CBC shows a slight leukocytosis at 12.3. Hemoglobin hematocrit stable. Renal function electrolytes are normal. Patient with minimal wheezing on exam and is giving breathing treatments. She already took prednisone. She feels better on evaluation. She is concerned about developing infection and states she normally gets prednisone and Levaquin for home. This will be provided for her. She is to follow-up with her primary care physician to ensure resolution. Patient stable for discharge. Impression: 1. COPD exacerbation 2. Right rib pain Lab Data Attestation: I reviewed the patient's lab results. Labs: Laboratory Results - last 24 hr 07/27/21 07/27/21 19:30 21:50 WBC 12.3 H RBC 4.14 L Hgb 11.7 L Hct 34.4 L MCV 83.1 MCH 28.3 MCHC 34.0 RDW Std Deviation 42.5 RDW Coeff of [place] 14.1 Plt Count 401 MPV 9.5 Immature Gran % (Auto) 0.300 Neut % (Auto) 92.9 H Lymph % (Auto) 5.4 L [place] % (Auto) 0.9 Eos % (Auto) 0.0 Baso % (Auto) 0.5 Absolute Neuts (auto) 11.4 H Absolute Lymphs (auto) 0.66 L Nucleated RBC % 0 Sodium 138 Potassium 4.1 Chloride 105 Carbon Dioxide 30.0 Anion Gap 3 L BUN 16 Creatinine 1.01 Estim Creat Clear Calc 39.67 Est GFR (MDRD) Af Amer 70 Est GFR (MDRD) Non-Af 58 L BUN/Creatinine Ratio 15.8 Glucose 123 H Calcium 10.0 Radiography Diagnostic Testing: Clinical Impression(s) from Imaging Studies Chest X-Ray 07/27/21 19:05 IMPRESSION: Stable 1.7 cm nodule in the lateral aspect of the right upper lobe. A CT scan is recommended for further evaluation. Electronically Signed: Darian Hernandez MD at 19:23 EDT Reading Location ID and State: [facility] / [place] , Service support , Discharge Plan Triage Chief Complaint: Shortness of Breath ED Provider: Bert Reno Dx/Rx/DC Orders Instructions: ED COPD Flare Prescriptions: New levofloxacin 500 mg tablet 500 mg PO DAILY Qty: 6 RF: 0 prednisone 10 mg tablet 50 mg PO DAILY 5 Days Qty: 25 RF: 0 No Action levothyroxine 100 MCG tablet 100 mcg PO DAILY RF: 0 omeprazole 20 MG capsule 20 mg PO DAILY RF: 0 budesonide 0.5 MG/2 ML suspension for nebulization 1 applicatio inhalation BID RF: 0 albuterol sulfate [ProAir HFA] 1 PUFF inhaler 2 puff inhalation Q4H PRN PRN (Reason: Sob &/Or Wheezing) RF: 0 Spiriva with HandiHaler 1 PUFF inhaler 2 puff inhalation DAILY RF: 0 formoterol fumarate [Perforomist] 20 MCG/2 ML solution for nebulization 20 mcg inhalation BID RF: 0 zafirlukast 20 tablet 20 mg PO BID RF: 0 cholecalciferol (vitamin D3) 2,000 UNIT capsule 2,000 unit PO DAILY RF: 0 multivitamin 1 EACH tablet 1 ea PO DAILY RF: 0 prednisone 10 mg tablet 10 mg PO DAILY RF: 0 Hold Instructions: Resume on 02/26/21. after taper completed ipratropium bromide 0.02 % Solution 2.5 ml INHALATION BID RF: 0 amlodipine 10 mg tablet 10 mg PO DAILY RF: 0 levofloxacin 750 mg Tablet 750 mg PO DAILY Qty: 5 RF: 0 prednisone 10 mg tablet 10 mg PO DAILY Qty: 40 RF: 0 albuterol sulfate 2.5 mg /3 mL (0.083 %) solution for nebulization 2.5 mg inhalation Q4H PRN (Reason: shortness of breath or wheezing) 30 Days Qty: 90 RF: 0 Primary Care Provider: Bay Zepeda Referrals: Bay Zepeda DO [Primary Care Provider] - Disposition Disposition: Home, Self Care
[2021-07-27 20:44] VITALS: O2SAT 97
[2021-07-27] MEDS: Ipratropium/Albuterol Sulfate 3 ML AMPUL.NEB INHALATION (20:50)
[2021-07-27] MEDS: Albuterol 2.5 MG/3 ML VIAL.NEB. INHALATION (20:50)
[2021-07-27 20:51] VITALS: PULSE 100; RESP 20
[2021-07-27 21:56] LABS: Absolute Lymphocyte Count 0.66 X10^3/uL (0.83-4.51); Absolute Neutrophil Count 11.4 X10^3/uL (2.0-7.7); Basophil# 0.06 X10^3/uL; Basophil% 0.5 % (0-1); Hematocrit 34.4 % (37-47); Hemoglobin 11.7 g/dL (12.0-15.0); Lymphocyte # 0.66 X10^3/ul (0.83-4.51); Lymphocyte % 5.4 % (19-41); Mean Corpuscular Hgb 28.3 pg (27.0-32.0); Mean Corpuscular Volume 83.1 fL (81-99); Mean Platelet Vol. 9.5 fl (6.2-12.0); Monocyte# 0.11 X10^3/uL; Monocyte% 0.9 % (0-10); NRBC Flagged by Analyzer 0 % (0-5); Neutrophil # 11.44 X10^3/uL (2.7-7.7); Neutrophil % 92.9 % (47-70); Platelet Count 401 K/mm3 (150-450); RBC Distribution Width CV 14.1 % (11.6-14.6); RBC Distribution Width SD 42.5 fl (35.1-43.9); Red Blood Count 4.14 M/mm3 (4.2-5.4); White Blood Count 12.3 K/mm3 (4.4-11.0)
[2021-07-27] MEDS: Lidocaine 5% Patch 1 PATCH TOPICAL (22:00)
[2021-07-27] MEDS: levoFLOXacin 500 MG Tablet PO (23:00)
[2021-07-27 23:03] VITALS: BP 152/92; PULSE 78; RESP 17; O2SAT 97
== END 2021-07-27 23:26 | disposition home or self-care (01) ==
PROVIDERS: Emergency Provider Student in an Organized Health Care Education/Training Program; PCP Family Medicine; Visit Provider Student in an Organized Health Care Education/Training Program
DX: J44.1 Chronic obstructive pulmonary disease with (acute) exacerbation (principal); R07.81 Pleurodynia; I10 Essential (primary) hypertension; E03.9 Hypothyroidism, unspecified; K21.9 Gastro-esophageal reflux disease without esophagitis; M81.0 Age-related osteoporosis without current pathological fracture; E66.9 Obesity, unspecified; Z68.30 Body mass index [BMI] 30.0-30.9, adult; Z99.81 Dependence on supplemental oxygen; Z79.899 Other long term (current) drug therapy; Z87.891 Personal history of nicotine dependence
CPT/HCPCS: 71045; 80048; 85025; 87811; 94640; 94760; 99284; A4216

== ENCOUNTER 2021-10-28 14:18 | Emergency (ER) | payer BC, MEDICARE, SELFPAY ==
[2021-10-28 14:18] VITALS: BP 185/96; PULSE 125; RESP 26; TEMP 36.7; O2SAT 98; BMI 30.6
--- NOTE | 2021-10-28 15:14 | ED.VIS.DYS ---
HPI History of Present Illness Chief Complaint: Asthma Informant: patient Onset/Context/Timing Onset: Yesterday Context: gradual Timing: Continuous Quality: Positive for Wheezing Worsened by: Nothing Relieved by: Nothing Associated Symptoms cough, rhinorrhea, post nasal drip, yellow sputum and green sputum; Negative for ear pain, fever, sore throat, subjective, chills, sweats, clear sputum or white sputum Chest Pain: Positive for Dull and Aching Narrative Narrative: Patient presents with shortness of breath that became worse yesterday. Patient states that her son was home and was wearing strong cologne. Patient states this normally sets off her COPD. Patient states she tried her own aerosols at home with no improvement. Patient feels like she is wheezing in her chest. Patient states that over the past few days she has also had some upper respiratory congestion and rhinorrhea. Patient states she is coughing up some yellow and green sputum. Patient states she is having some mild pain on the right side of her chest. Patient describes it as dull and aching. Patient states she was prescribed a 14-day course of an antibiotic in the past but only took 7 days of it. Patient states that she restarted that antibiotic again a couple days ago. Patient states she also started taking prednisone for the past 3 days but ran out again today. Patient states she called her primary care physician's office who referred her to the emergency department. PE Risk Factors: Negative for Cancer, OCP + Smoking + > 35, Prior DVT or PE, Recent immobilization, Recent surgery or Recent travel [facility] Medical History Acute and chronic respiratory failure with hypoxia Anemia COPD (chronic obstructive pulmonary disease) COPD (chronic obstructive pulmonary disease) COPD (chronic obstructive pulmonary disease) Former smoker Former smoker GERD (gastroesophageal reflux disease) GERD (gastroesophageal reflux disease) HTN (hypertension) Hypertension Hypertension Hypothyroid Hypothyroidism Immune deficiency disorder Immune deficiency disorder Leukocytosis Obesity (BMI 30.0-34.9) On home oxygen therapy Osteoporosis RSV infection Thrombocytosis Thrush Home Medications albuterol sulfate 90 mcg/actuation aerosol inhaler (ProAir HFA) 2 puff inhalation Q4H PRN PRN Sob &/Or Wheezing 07/22/14 [History Last Taken Unknown] budesonide 0.5 mg/2 mL suspension for nebulization 1 applicatio inhalation BID breathing 07/22/14 [History Last Taken 07/21/14] formoterol fumarate 20 mcg/2 mL solution for nebulization (Perforomist) 20 mcg inhalation BID breathing 07/22/14 [History Last Taken 07/21/14] levothyroxine 100 mcg tablet 100 mcg PO DAILY thyroid 07/22/14 [History Last Taken 07/22/14] omeprazole 20 mg capsule,delayed release 20 mg PO DAILY stomach 07/22/14 [History Last Taken 07/21/14] tiotropium bromide 18 mcg capsule with inhalation device (Spiriva with HandiHaler) 2 puff inhalation DAILY breathing 07/22/14 [History Last Taken Unknown] cholecalciferol (vitamin D3) 50 mcg (2,000 unit) capsule 2,000 unit PO DAILY supplement 05/23/19 [History Last Taken Unknown] zafirlukast 20 mg tablet 20 mg PO BID asthma 05/23/19 [History Last Taken Unknown] multivitamin 1 ea PO DAILY supplement 01/21/20 [History Last Taken Unknown] ipratropium bromide 0.02 % solution for inhalation 2.5 ml inhalation BID breathing 11/26/20 [History Last Taken Unknown] amlodipine 10 mg tablet 10 mg PO DAILY B/P 02/11/21 [History Last Taken 02/09/21] albuterol sulfate 2.5 mg (3 mL) inhalation Q4H PRN shortness of breath or wheezing 30 days #90 mL 03/04/21 [Rx Last Taken Unknown] levofloxacin 500 mg tablet 500 mg PO DAILY #6 tabs 07/27/21 [Rx Last Taken Unknown] prednisone 20 mg tablet 60 mg PO DAILY #9 TABLETS 10/28/21 [Rx Last Taken Unknown] vit T-ktoifen-ceyhuzucd-rutin-[id number] 500 mg-50 mg-25 mg-40 mg tablet (Bioflex) 1 tab PO DAILY 10/28/21 [History Last Taken Unknown] Allergy/AdvReac Type Severity Reaction Status Date / Time ampicillin Allergy stomach Verified 10/28/21 14:21 issues aspirin [ASA] Allergy Hives Verified 10/28/21 14:21 cephalexin monohydrate Allergy Hives Verified 10/28/21 14:21 [From Keflex] Family History Mother Hypertension Father Rheumatoid arthritis Heart disease Surgical History History of appendectomy History of cholecystectomy Hx of appendectomy Hx of cholecystectomy Hx of hysterectomy Hx of tonsillectomy Social History household members: spouse Smoking Status: Former smoker how long ago did patient quit smoking: Quit 2009, prior 1-1.5 ppd since youth. alcohol intake: never substance use type: does not use ROS ROS ED Constitutional Constitutional ED: Denies chills or fever(s) Eyes Eyes: Denies blurry vision or change in vision ENT ENT ED: Reports rhinorrhea; Denies sore throat Cardiovascular Cardiovascular: Reports chest pain; Denies palpitations Respiratory/Chest Respiratory/Chest: Reports cough and dyspnea Gastrointestinal Gastrointestinal: Denies nausea or vomiting Genitourinary Genitourinary ED: Denies dysuria or hematuria Musculoskeletal Musculoskeletal: Denies back pain or neck pain Integumentary Denies abscess or rash Neurologic Neurologic: Reports headache(s); Denies weakness Allergic/Immunologic Allergic/Immunologic ED: Denies mouth swelling or urticaria EXAM Physical Exam Const Vital Signs: 10/28/21 14:18 10/28/21 14:42 10/28/21 15:31 Temperature 98.1 F Temperature Source Temporal Pulse Rate 125 H 94 Respiratory Rate 26 H 20 H Respiratory Effort Short of Breath Respiratory Depth Shallow Respiratory Pattern Tachypnea Tachypnea Blood Pressure 185/96 H Blood Pressure Mean 125 Pulse Ox 98 Oxygen Delivery Method Nasal Cannula Oxygen Flow Rate (L/min) 2 10/28/21 16:43 Temperature Temperature Source Pulse Rate 98 Respiratory Rate 22 H Respiratory Effort Respiratory Depth Respiratory Pattern Tachypnea Blood Pressure Blood Pressure Mean Pulse Ox Oxygen Delivery Method Oxygen Flow Rate (L/min) Positive well nourished and well developed General Appearance ED: well developed and NAD HEENT Reports moist mucous membranes Neck supple and no JVD Resp normal respiratory effort Auscultation: wheezes expiratory wheezes and throughout Cardio regular rate, regular rhythm and no murmurs GI normal to inspection, nondistended, normoactive bowel sounds and non-tender Palpation: soft Extremity normal to inspection General Extremety ED: Negative for edema or tenderness General Extremity: Negative for edema Neuro oriented x3, CN's II-XII intact bilaterally and no sensory deficits noted Sensorium / Orientation: alert Motor Exam: strength 5/5 throughout Psych mental status grossly normal Skin no rashes or lesions noted MDM MDM MDM Narrative Medical decision making narrative: Patient was given a DuoNeb aerosol here. CBC shows a leukocytosis of 16.8. This is most likely from the recent prednisone use. Comprehensive metabolic profile was within normal limits. PA and lateral chest x-ray was obtained. There are 2 views. On my interpretation, lung hutchins are clear. There is normal cardiac silhouette. Bony thorax is normal. There is no acute process noted. Radiologist also interpreted the x-ray and agrees. Patient is still having some wheezing on reevaluation however this is much improved. Patient was given a repeat albuterol aerosol. Patient was given a prescription for a short course of prednisone. Patient was instructed to finish her antibiotic until gone. Patient was instructed to follow-up with her primary care physician in 3 to 5 days. Patient understood and was agreeable with the plan. All questions were answered. Lab Data Attestation: I reviewed the patient's lab results. Labs: Laboratory Results - last 24 hr 10/28/21 10/28/21 15:41 15:41 WBC 16.8 H RBC 4.25 Hgb 12.1 Hct 37.5 MCV 88.2 MCH 28.5 MCHC 32.3 RDW Std Deviation 45.5 H RDW Coeff of [place]ien[place] 14.1 Plt Count 395 MPV 9.6 Immature Gran % (Auto) 0.800 Neut % (Auto) 76.9 H Lymph % (Auto) 12.4 L [place] % (Auto) 9.6 Eos % (Auto) 0.2 Baso % (Auto) 0.1 Absolute Neuts (auto) 12.9 H Absolute Lymphs (auto) 2.08 Nucleated RBC % 0 Differential Comment SEE COMMENT Diff Path Review May foll Platelet Estimate ADEQUATE RBC Morphology N CHROM Anisocytosis RARE Macrocytosis RARE Sodium 140 Potassium 3.5 Chloride 104 Carbon Dioxide 31.0 Anion Gap 5 BUN 17 Creatinine 0.99 Estim Creat Clear Calc 40.47 Est GFR (MDRD) Af Amer 72 Est GFR (MDRD) Non-Af 59 L BUN/Creatinine Ratio 17.2 Glucose 89 Calcium 9.6 Total Bilirubin 0.20 AST 16 ALT 23 Alkaline Phosphatase 106 Total Protein 8.0 Albumin 3.5 Globulin 4.5 H Albumin/Globulin Ratio 0.8 L Radiography Chest X-Ray - ED: 2 View, Read by ED Physician, Read by Radiologist, Normal and No Acute Disease Diagnostic Testing: Clinical Impression(s) from Imaging Studies Chest X-Ray 10/28/21 16:00 IMPRESSION: There are no acute findings. Electronically Signed: Darian Hernandez MD at 16:21 EDT Reading Location ID and State: [facility] / [place] , Service support , Discharge Plan Triage Chief Complaint: Asthma ED Provider: Efra English Dx/Rx/DC Orders Clinical Impression: COPD with acute exacerbation, Dyspnea Instructions: ED COPD Flare Prescriptions: New prednisone 20 MG tablet 60 mg PO DAILY Qty: 9 0RF No Action levothyroxine 100 MCG tablet 100 mcg PO DAILY Label Comments: thyroid omeprazole 20 MG capsule 20 mg PO DAILY Label Comments: gerd budesonide 0.5 MG/2 ML suspension for nebulization 1 applicatio inhalation BID Label Comments: copd albuterol sulfate [ProAir HFA] 1 PUFF inhaler 2 puff inhalation Q4H PRN PRN (Reason: Sob &/Or Wheezing) Label Comments: copd Spiriva with HandiHaler 1 PUFF inhaler 2 puff inhalation DAILY Label Comments: copd formoterol fumarate [Perforomist] 20 MCG/2 ML solution for nebulization 20 mcg inhalation BID Label Comments: breathing zafirlukast 20 tablet 20 mg PO BID cholecalciferol (vitamin D3) 2,000 UNIT capsule 2,000 unit PO DAILY multivitamin 1 EACH tablet 1 ea PO DAILY ipratropium bromide 0.02 % Solution 2.5 ml INHALATION BID amlodipine 10 mg tablet 10 mg PO DAILY albuterol sulfate 2.5 mg /3 mL (0.083 %) solution for nebulization 2.5 mg inhalation Q4H PRN (Reason: shortness of breath or wheezing) 30 Days Qty: 90 0RF levofloxacin 500 mg tablet 500 mg PO DAILY Qty: 6 0RF Bioflex [id number] mg Tablet 1 tab PO DAILY Primary Care Provider: Bay Zepeda Referrals: Bay Zepeda DO [Primary Care Provider] - 3-5 Days Disposition Disposition: Home, Self Care
[2021-10-28] MEDS: Ipratropium/Albuterol Sulfate 3 ML AMPUL.NEB INHALATION (15:30)
[2021-10-28 15:31] VITALS: PULSE 94; RESP 20
[2021-10-28 15:51] LABS: Absolute Lymphocyte Count 2.08 X10^3/uL (0.83-4.51); Absolute Neutrophil Count 12.9 X10^3/uL (2.0-7.7); Basophil# 0.02 X10^3/uL; Basophil% 0.1 % (0-1); Eosinophil# 0.04 X10^3/uL; Eosinophils% 0.2 % (0-5); Hematocrit 37.5 % (37-47); Hemoglobin 12.1 g/dL (12.0-15.0); Lymphocyte # 2.08 X10^3/ul (0.83-4.51); Lymphocyte % 12.4 % (19-41); Mean Corp Hgb Conc 32.3 g/dL (32-36); Mean Corpuscular Hgb 28.5 pg (27.0-32.0); Mean Corpuscular Volume 88.2 fL (81-99); Mean Platelet Vol. 9.6 fl (6.2-12.0); Monocyte# 1.61 X10^3/uL; Monocyte% 9.6 % (0-10); NRBC Flagged by Analyzer 0 % (0-5); Neutrophil # 12.89 X10^3/uL (2.7-7.7); Neutrophil % 76.9 % (47-70); POSITIVE DIFFERENTIAL YES; Platelet Count 395 K/mm3 (150-450); RBC Distribution Width CV 14.1 % (11.6-14.6); RBC Distribution Width SD 45.5 fl (35.1-43.9); Red Blood Count 4.25 M/mm3 (4.2-5.4); White Blood Count 16.8 K/mm3 (4.4-11.0)
--- NOTE | 2021-10-28 16:00 | RAD_ITS ---
STUDY: X-RAY CHEST REASON FOR EXAM: Female, 71 years old. Technologist Notes WHEEZING SINCE YESTERDAY, ON PREDNISONE FOR COLD SYMPTOMS RIGHT PLEURAL PAIN Dyspnea TECHNIQUE: XR Chest 2 Views COMPARISON: 07/27/2021 FINDINGS: Healed right rib fractures. Normal size heart. Normal mediastinum and paty. Normal visualized pulmonary arteries. There is atherosclerotic calcification of the aortic arch with tortuosity. There are diffuse degenerative changes of the visualized thoracic spine. There is degenerative osteoarthritis of the bilateral shoulders. There is no demonstrated abnormality of the visualized soft tissue structures of the upper abdomen. RAD/Chest PA and Lateral IMPRESSION: There are no acute findings. Electronically Signed: Darian Hernandez MD at 16:21 EDT ,
[2021-10-28 16:04] LABS: ALB/GLOB Ratio 0.8 RATIO (0.9-2.4); AST(SGOT) 16 U/L (15-37); Alanine Aminotransfer ALT/SGPT 23 U/L (13-56); Albumin, Serum 3.5 g/dL (3.2-5.0); Alkaline Phosphatase 106 U/L (45-117); Anion Gap 5 (5-15); BUN 17 mg/dL (7-18); BUN/Creat Ratio 17.2 RATIO (10-20); Calcium,Total 9.6 mg/dL (8.5-10.1); Chloride 104 mmol/L (98-107); Creatinine, Serum 0.99 mg/dL (0.55-1.02); EST Glomerular Filtration Rate 59 mL/min (>60); Est Glom Filt Rate - Afr Amer 72 mL/min (>60); Estimated Creatinine Clearance 40.47 ml/min; Globulin 4.5 g/dL (2.2-4.2); Glucose 89 mg/dL (74-106); Potassium 3.5 mmol/L (3.5-5.1); Sodium Level 140 mmol/L (136-145)
[2021-10-28 16:15] LABS: Differential Indicated SCAN CRITERIA MET
[2021-10-28 16:26] LABS: Anisocytosis RARE; Macrocytosis RARE; Platelet Estimate ADEQUATE (ADEQ); Red Cell Morphology N CHROM NORMAL (NORM C&C)
[2021-10-28] MEDS: Albuterol 2.5 MG/3 ML VIAL.NEB. INHALATION (16:42)
[2021-10-28 16:43] VITALS: PULSE 98; RESP 22
[2021-10-28 17:14] VITALS: BP 133/87; PULSE 93; RESP 22; O2SAT 100
[2021-11-02 07:14] LABS: Pathologist Review Reviewed
== END 2021-10-28 17:15 | disposition home or self-care (01) ==
PROVIDERS: Emergency Provider Emergency Medicine; PCP Family Medicine; Visit Provider Emergency Medicine
DX: J44.1 Chronic obstructive pulmonary disease with (acute) exacerbation (principal); I10 Essential (primary) hypertension; E03.9 Hypothyroidism, unspecified; E66.9 Obesity, unspecified; Z68.30 Body mass index [BMI] 30.0-30.9, adult; Z99.81 Dependence on supplemental oxygen; Z79.899 Other long term (current) drug therapy; Z87.891 Personal history of nicotine dependence
CPT/HCPCS: 71046; 80053; 85025; 87428; 94640; 99283

== ENCOUNTER 2022-02-14 15:32 | Emergency (ER) | payer BC, MEDICARE, SELFPAY ==
[2022-02-14 15:32] VITALS: BP 163/109; PULSE 108; RESP 18; TEMP 36.6; O2SAT 96; BMI 30.8
--- NOTE | 2022-02-14 16:52 | EDS_ITS ---
HPI History of Present Illness Chief Complaint: Shortness of Breath Informant: patient Narrative Narrative: Patient presents with cough and wheezing. She states several people in her family including grandkids had recent cough and breathing issues. They also had pinkeye. She thinks they may had had RSV because they do go to daycare. She states her symptoms started on Sunday with increased cough. She is bringing up a little little bit of yellowish sputum. This is different color than normal. She had some prednisone at home that she took yesterday. It sounds like she took 40 mg. She has not taken any today but her doctor called in a prescription for prednisone and she started amoxicillin out today. She is still wheezing. Her last breathing treatment was about 4 5 hours ago. She denies fevers or chills. She states that if she coughs she gets an area on her left lower chest that hurts occasionally but not all the time. Is not pleuritic. No hemoptysis. No leg pain or swelling. Never had a DVT or PE. [facility] Medical History Acute and chronic respiratory failure with hypoxia Anemia COPD (chronic obstructive pulmonary disease) COPD (chronic obstructive pulmonary disease) COPD (chronic obstructive pulmonary disease) Former smoker Former smoker GERD (gastroesophageal reflux disease) GERD (gastroesophageal reflux disease) HTN (hypertension) Hypertension Hypertension Hypothyroid Hypothyroidism Immune deficiency disorder Immune deficiency disorder Leukocytosis Obesity (BMI 30.0-34.9) On home oxygen therapy Osteoporosis RSV infection Thrombocytosis Thrush Home Medications albuterol sulfate 90 mcg/actuation aerosol inhaler (ProAir HFA) 2 puff inh alation Q4H PRN PRN Sob &/Or Wheezing 07/22/14 [History Last Taken Unknown] budesonide 0.5 mg/2 mL suspension for nebulization 1 applicatio inhalation BID breathing 07/22/14 [History Last Taken 07/21/14] formoterol fumarate 20 mcg/2 mL solution for nebulization (Perforomist) 20 mcg inhalation BID breathing 07/22/14 [History Last Taken 07/21/14] levothyroxine 100 mcg tablet 100 mcg PO DAILY thyroid 07/22/14 [History Last Taken 07/22/14] omeprazole 20 mg capsule,delayed release 20 mg PO DAILY stomach 07/22/14 [History Last Taken 07/21/14] tiotropium bromide 18 mcg capsule with inhalation device (Spiriva with HandiHaler) 2 puff inhalation DAILY breathing 07/22/14 [History Last Taken Unknown] cholecalciferol (vitamin D3) 50 mcg (2,000 unit) capsule 2,000 unit PO DAILY supplement 05/23/19 [History Last Taken Unknown] zafirlukast 20 mg tablet 20 mg PO BID asthma 05/23/19 [History Last Taken Unknown] ipratropium bromide 0.02 % solution for inhalation 2.5 ml inhalation BID breathing 11/26/20 [History Last Taken Unknown] amlodipine 10 mg tablet 10 mg PO DAILY B/P 02/11/21 [History Last Taken 02/09/21] albuterol sulfate 2.5 mg/3 mL (0.083 %) solution for nebulization 2.5 mg (3 mL) inhalation Q4H PRN shortness of breath or wheezing 30 days #90 mL 03/04/21 [Rx Last Taken Unknown] vit J-kkiyhnv-oodbuhrkv-rutin-[id number] 500 mg-50 mg-25 mg-40 mg tablet (Bioflex) 1 tab PO DAILY 10/28/21 [History Last Taken Unknown] albuterol sulfate 2.5 mg/3 mL (0.083 %) solution for nebulization 2.5 mg (3 mL) inhalation Q4H PRN #25 vials 02/14/22 [Rx Last Taken Unknown] bacitracin-polymyxin B 500 unit-10,000 unit/gram eye ointment 0.25 inch RIGHT EYE Q6H 10 days #3.5 grams 02/14/22 [Rx Last Taken Unknown] levofloxacin 500 mg tablet 500 mg PO DAILY #6 tabs 02/14/22 [Rx Last Taken Unknown] nystatin 100,000 unit/mL oral suspension 1 ml PO BID 10 days #20 mL 02/14/22 [Rx Last Taken Unknown] prednisone 20 mg tablet 40 mg PO DAILY 02/14/22 [History Last Taken Unknown] prednisone 20 mg tablet 60 mg PO DAILY #15 tabs 02/14/22 [Rx Last Taken Unknown] Allergy/AdvReac Type Severity Reaction Status Date / Time ampicillin Allergy stomach Verified 02/14/22 15:35 issues aspirin [ASA] Allergy Hives Verified 02/14/22 15:35 cephalexin monohydrate Allergy Hives Verified 02/14/22 15:35 [From Keflex] Family History Mother Hypertension Father Rheumatoid arthritis Heart disease Surgical History History of appendectomy History of cholecystectomy Hx of appendectomy Hx of cholecystectomy Hx of hysterectomy Hx of tonsillectomy Social History household members: spouse Smoking Status: Former smoker how long ago did patient quit smoking: Quit 2008, prior 1-1.5 ppd since youth. alcohol intake: never substance use type: does not use ROS ROS ED Constitutional Constitutional ED: Denies chills, fever(s) or sweats Eyes Eyes: Reports other Details: She is starting to get some redness of the right eye. She had 2 grandchildren with pinkeye. ; Denies change in vision or diplopia ENT ENT ED: Reports rhinorrhea; Denies sore throat Cardiovascular Cardiovascular: Denies palpitations or racing heartbeat Respiratory/Chest Respiratory/Chest: Reports cough, dyspnea and sputum Gastrointestinal Gastrointestinal: Denies abdominal pain, nausea or vomiting Genitourinary Genitourinary ED: Denies hematuria Musculoskeletal Musculoskeletal: Denies arthralgias or myalgias Integumentary Denies rash Neurologic Neurologic: Denies headache(s) Endocrine Endocrinology: Denies polydipsia or polyuria Hematologic/Lymphatic Hematologic/Lymphatic: Denies easy bleeding or easy bruising Allergic/Immunologic Allergic/Immunologic ED: Denies urticaria EXAM Physical Exam Const Vital Signs: 02/14/22 15:32 02/14/22 17:18 02/14/22 17:18 Temperature 97.9 F Temperature Source Temporal Pulse Rate 108 H 105 H Respiratory Rate 18 24 H Respiratory Effort Respiratory Depth Respiratory Pattern Blood Pressure 163/109 H Blood Pressure Mean 127 Pulse Ox 96 98 Oxygen Delivery Method Nasal Cannula Nasal Cannula Oxygen Flow Rate (L/min) 2 2 02/14/22 17:18 02/14/22 17:21 02/14/22 17:23 Temperature Temperature Source Pulse Rate 105 H Respiratory Rate 20 H 18 Respiratory Effort Short of Breath Short of Breath Respiratory Depth Shallow Respiratory Pattern Tachypnea Blood Pressure Blood Pressure Mean Pulse Ox 97 97 Oxygen Delivery Method Nasal Cannula Room Air Room Air Oxygen Flow Rate (L/min) 2 02/14/22 18:12 02/14/22 18:12 02/14/22 19:44 Temperature Temperature Source Pulse Rate 108 H 103 H Respiratory Rate 21 H 19 H Respiratory Effort Respiratory Depth Respiratory Pattern Blood Pressure 157/87 H Blood Pressure Mean 110 Pulse Ox 97 96 Oxygen Delivery Method Nasal Cannula Nasal Cannula Oxygen Flow Rate (L/min) 2 2 Positive well nourished and well developed General Appearance ED: well developed HEENT Reports moist mucous membranes Neck no lymphadenopathy and no JVD Resp normal respiratory effort Resp Narrative: Patient sitting in the chair. She carries on normal conversation. But I can hear wheezing. Auscultation: wheezes Cardio regular rate and regular rhythm Cardio Narrative: Rate is about 90-95 now. GI non-tender and non-distended Back/Spine no CVA tenderness Extremity normal to inspection General Extremety ED: Negative for edema or tenderness General Extremity: Negative for edema Neuro Sensorium / Orientation: alert; Negative for confused, lethargic or stuporous Psych mental status grossly normal Skin no wounds MDM MDM MDM Narrative Medical decision making narrative: Patient was given several breathing treatments. She states she feels back to baseline. I listen to her and she was still wheezing. She states she wheezes all the time. It never goes away. But she would like to go home. She feels that she has this under control. I will write for meds for her nebulizer as she might be out but she is not sure. She states Levaquin usually also clears this up. I will write for Levaquin. She will stop the amoxicillin that she just started today. I will write her for 5 days of prednisone. Now sounds like she had prednisone left over and she took 4 tablets yesterday but none today. I will also write for nystatin as she oftentimes gets thrush with this. We will write for meds for pinkeye. We discussed reasons to return. I think this patient has moderate risk of return. But she is talking on the phone. She feels comfortable. Her saturations are good. She feels back to normal and feels that she did this she is good enough to go home Lab Data Attestation: I reviewed the patient's lab results. Labs: Laboratory Results - last 24 hr 02/14/22 02/14/22 16:58 16:58 WBC 17.6 H RBC 4.20 Hgb 11.9 L Hct 36.6 L MCV 87.1 MCH 28.3 MCHC 32.5 RDW Std Deviation 43.7 RDW Coeff of [place]ien[place] 13.7 Plt Count 405 MPV 9.8 Immature Gran % (Auto) 0.300 Neut % (Auto) 79.7 H Lymph % (Auto) 9.6 L [place] % (Auto) 9.8 Eos % (Auto) 0.4 Baso % (Auto) 0.2 Absolute Neuts (auto) 14.0 H Absolute Lymphs (auto) 1.70 Nucleated RBC % 0 Differential Comment SCANNED Diff Path Review August foll Sodium 139 Potassium 3.6 Chloride 104 Carbon Dioxide 29.0 Anion Gap 6 BUN 20 H Creatinine 0.96 Estim Creat Clear Calc 41.74 Est GFR (MDRD) Af Amer 74 Est GFR (MDRD) Non-Af 61 BUN/Creatinine Ratio 20.7 H Glucose 100 Calcium 9.9 Radiography Diagnostic Testing: Clinical Impression(s) from Imaging Studies Chest X-Ray 02/14/22 17:03 IMPRESSION: There are no acute findings. Electronically Signed: Darian Hernandez MD at 17:38 EDT Reading Location ID and State: [facility] / [place] , Service support , Discharge Plan Triage Chief Complaint: Shortness of Breath ED Provider: Reinaldo Godfrey Dx/Rx/DC Orders Clinical Impression: COPD exacerbation, [place] eye disease of right eye Instructions: ED COPD Flare Prescriptions: New prednisone 20 mg tablet 60 mg PO DAILY Qty: 15 0RF levofloxacin [levofloxacin] 500 mg tablet 500 mg PO DAILY Qty: 6 0RF bacitracin-polymyxin B 500-10,000 unit/gram ointment 0.25 inch RIGHT EYE Q6H 10 Days Qty: 3.5 0RF albuterol sulfate 2.5 mg /3 mL (0.083 %) solution for nebulization 2.5 mg inhalation Q4H PRN Qty: 25 0RF Rx Instructions: Use q4 hours and PRN for wheezing nystatin 100,000 unit/mL suspension 1 ml PO BID 10 Days Qty: 20 0RF Rx Instructions: swish and swallow No Action levothyroxine 100 MCG tablet 100 mcg PO DAILY Label Comments: thyroid omeprazole 20 MG capsule 20 mg PO DAILY Label Comments: gerd budesonide 0.5 MG/2 ML suspension for nebulization 1 applicatio inhalation BID Label Comments: copd albuterol sulfate [ProAir HFA] 1 PUFF inhaler 2 puff inhalation Q4H PRN PRN (Reason: Sob &/Or Wheezing) Label Comments: copd Spiriva with HandiHaler 1 PUFF inhaler 2 puff inhalation DAILY Label Comments: copd formoterol fumarate [Perforomist] 20 MCG/2 ML solution for nebulization 20 mcg inhalation BID Label Comments: breathing zafirlukast 20 tablet 20 mg PO BID cholecalciferol (vitamin D3) 2,000 UNIT capsule 2,000 unit PO DAILY ipratropium bromide 0.02 % Solution 2.5 ml INHALATION BID amlodipine 10 mg tablet 10 mg PO DAILY albuterol sulfate 2.5 mg /3 mL (0.083 %) solution for nebulization 2.5 mg inhalation Q4H PRN (Reason: shortness of breath or wheezing) 30 Days Qty: 90 0RF Bioflex 091-20-25-40 mg Tablet 1 tab PO DAILY prednisone 20 MG tablet 40 mg PO DAILY Primary Care Provider: Bay Zepeda Referrals: Bay Zepeda DO [Primary Care Provider] - 3-5 Days if not improving Disposition Disposition: Home, Self Care Discharge Date/Time: 02/14/22 19:56
--- NOTE | 2022-02-14 16:52 | EKG12_ITS ---
Test Reason : SOB Blood Pressure : / mmHG Vent. Rate : 110 BPM Atrial Rate : 110 BPM P-R Int : 130 ms QRS Dur : 076 ms QT Int : 322 ms P-R-T Axes : 071 040 060 degrees QTc Int : 435 ms Sinus tachycardia Otherwise normal ECG Confirmed by MARIA ANTONIA BARAHONA, МАРИНА ([id number]), editorial specialist MARICRUZ JAMIL ([id number]) on 02/16/2022 10:42:46 AM Referred By: Confirmed By:МАРИНА EM MD
--- NOTE | 2022-02-14 17:03 | RAD_ITS ---
STUDY: X-RAY CHEST REASON FOR EXAM: Female, 71 years old. cough TECHNIQUE: XR Chest 1 View COMPARISON: 7.8.22 FINDINGS: There is atherosclerotic calcification of the aortic arch with tortuosity. There are diffuse degenerative changes of the visualized thoracic spine. There is degenerative osteoarthritis of the bilateral shoulders.Healed right rib fractures. There is no demonstrated pleural abnormality. Normal size heart. Normal mediastinum and paty. Normal visualized pulmonary arteries. There is no demonstrated abnormality of the visualized soft tissue structures of the upper abdomen. RAD/Chest 1 View (Portable) IMPRESSION: There are no acute findings. Electronically Signed: Darian Hernandez MD at 17:38 EDT ,
[2022-02-14 17:08] LABS: Basophil# 0.04 X10^3/uL; Basophil% 0.2 % (0-1); Eosinophil# 0.07 X10^3/uL; Eosinophils% 0.4 % (0-5); Hematocrit 36.6 % (37-47); Hemoglobin 11.9 g/dL (12.0-15.0); Lymphocyte % 9.6 % (19-41); Mean Corp Hgb Conc 32.5 g/dL (32-36); Mean Corpuscular Hgb 28.3 pg (27.0-32.0); Mean Corpuscular Volume 87.1 fL (81-99); Mean Platelet Vol. 9.8 fl (6.2-12.0); Monocyte# 1.72 X10^3/uL; Monocyte% 9.8 % (0-10); NRBC Flagged by Analyzer 0 % (0-5); Neutrophil # 14.04 X10^3/uL (2.7-7.7); Neutrophil % 79.7 % (47-70); POSITIVE DIFFERENTIAL YES; Platelet Count 405 K/mm3 (150-450); RBC Distribution Width CV 13.7 % (11.6-14.6); RBC Distribution Width SD 43.7 fl (35.1-43.9); White Blood Count 17.6 K/mm3 (4.4-11.0)
[2022-02-14] MEDS: Albuterol 2.5 MG/3 ML VIAL.NEB. INHALATION ×2 (17:17→18:12)
[2022-02-14] MEDS: Ipratropium/Albuterol Sulfate 3 ML AMPUL.NEB INHALATION (17:17)
[2022-02-14 17:18] VITALS: PULSE 105; RESP 20; RESP 24; O2SAT 97; O2SAT 98
[2022-02-14] MEDS: MethylPREDNISolone 125 MG/2 ML Vial IV (17:20)
[2022-02-14 17:21] VITALS: O2SAT 97
[2022-02-14 17:23] VITALS: PULSE 105; RESP 18; O2SAT 97
[2022-02-14 17:26] LABS: Anion Gap 6 (5-15); BUN 20 mg/dL (7-18); BUN/Creat Ratio 20.7 RATIO (10-20); Calcium,Total 9.9 mg/dL (8.5-10.1); Chloride 104 mmol/L (98-107); Creatinine, Serum 0.96 mg/dL (0.55-1.02); EST Glomerular Filtration Rate 61 mL/min (>60); Est Glom Filt Rate - Afr Amer 74 mL/min (>60); Estimated Creatinine Clearance 41.74 ml/min; Glucose 100 mg/dL (74-106); Potassium 3.6 mmol/L (3.5-5.1); Sodium Level 139 mmol/L (136-145)
[2022-02-14 18:12] VITALS: PULSE 108; RESP 21; O2SAT 97
[2022-02-14 18:16] LABS: Differential Indicated SCAN CRITERIA MET
[2022-02-14 18:17] LABS: Differential Comment SCANNED
[2022-02-14 19:44] VITALS: BP 157/87; PULSE 103; RESP 19; O2SAT 96
[2022-02-14] MEDS: levoFLOXacin 750 MG Tablet PO (19:44)
[2022-02-15 12:47] LABS: Pathologist Review Reviewed
--- NOTE | 2022-02-15 14:43 | ED.RN ---
called pts prescription [facility]ofloxacin to [facility] in [place]. that script didn't go through electronically.
== END 2022-02-14 19:56 | disposition home or self-care (01) ==
PROVIDERS: Emergency Provider Emergency Medicine; PCP Family Medicine; Visit Provider Emergency Medicine
DX: J44.1 Chronic obstructive pulmonary disease with (acute) exacerbation (principal); H10.021 Other mucopurulent conjunctivitis, right eye; I10 Essential (primary) hypertension; E03.9 Hypothyroidism, unspecified; Z99.81 Dependence on supplemental oxygen; Z79.899 Other long term (current) drug therapy; Z87.891 Personal history of nicotine dependence
CPT/HCPCS: 71045; 80048; 85025; 87811; 93005; 94640; 96374; 99251; 99285; A4216; G0463

== ENCOUNTER 2022-03-28 09:55 | Emergency (ER) | payer BC, MEDICARE, SELFPAY ==
[2022-03-28 09:56] VITALS: BP 171/90; PULSE 106; RESP 20; TEMP 36; O2SAT 99; BMI 30.4
[2022-03-28 10:08] VITALS: BP 171/90; PULSE 106; RESP 20; TEMP 36; O2SAT 99
--- NOTE | 2022-03-28 11:08 | RAD_ITS ---
STUDY: X-RAY CHEST REASON FOR EXAM: Female, 71 years old. Cough and shortness of breath. COPD. Wheezing. TECHNIQUE: Single AP portable view of the chest. COMPARISON: Comparison is made with prior study dated 02/14/2022. FINDINGS: EKG electrodes are seen. There is hyperinflation of the lungs consistent with chronic obstructive lung disease (COPD). There is no demonstrated pleural abnormality. Normal size heart. Normal mediastinum and paty. Normal visualized pulmonary arteries. There is atherosclerotic calcification of the aortic arch with tortuosity. Normal visualized thoracic spine. Healed right rib fractures. There is no demonstrated abnormality of the visualized soft tissue structures of the upper abdomen. RAD/Chest 1 View (Portable) IMPRESSION: Hyperinflation. Electronically Signed: Josehp Curran MD at 13:08 RUST ,
--- NOTE | 2022-03-28 11:09 | EX.ED.DYSGE1 ---
HPI History of Present Illness Chief Complaint: Shortness of Breath Informant: patient Narrative Narrative: 71-year-old female with a history of COPD presenting to the emergency department shortness of breath. Patient saw her doctor about 4 days ago and was placed on prednisone 40 mg with a taper and Levaquin. She states that she has a home nebulizer of albuterol but she has not been getting better. She sees pulmonology in [place] and primary care in [place]. But she comes here for her emergency care. The patient denies any fevers. She notes very thick sputum that is difficult to a expectorate. She states that she is worried that she may have pneumonia or possibly COVID. She states all of her symptoms of COPD have been made much worse ever since she got a COVID shot 3 years ago. The patient notes that she is a patient that has home oxygen and typically wears it when she exerts herself. Typical dose is 2 L but she can adjust as needed PFSH FORMERLY [facility], [facility] Medical History Acute and chronic respiratory failure with hypoxia Anemia COPD (chronic obstructive pulmonary disease) COPD (chronic obstructive pulmonary disease) COPD (chronic obstructive pulmonary disease) Former smoker Former smoker GERD (gastroesophageal reflux disease) GERD (gastroesophageal reflux disease) HTN (hypertension) Hypertension Hypertension Hypothyroid Hypothyroidism Immune deficiency disorder Immune deficiency disorder Leukocytosis Obesity (BMI 30.0-34.9) On home oxygen therapy Osteoporosis RSV infection Thrombocytosis Thrush Home Medications albuterol sulfate 90 mcg/actuation aerosol inhaler (ProAir HFA) 2 puff inhalation Q4H PRN PRN Sob &/Or Wheezing 07/22/14 [History Last Taken Unknown] budesonide 0.5 mg/2 mL suspension for nebulization 1 applicatio inhalation BID breathing 07/22/14 [History Last Taken 07/21/14] formoterol fumarate 20 mcg/2 mL solution for nebulization (Perforomist) 20 mcg inhalation BID breathing 07/22/14 [History Last Taken 07/21/14] levothyroxine 100 mcg tablet 100 mcg PO DAILY thyroid 07/22/14 [History Last Taken 07/22/14] omeprazole 20 mg capsule,delayed release 20 mg PO DAILY stomach 07/22/14 [History Last Taken 07/21/14] tiotropium bromide 18 mcg capsule with inhalation device (Spiriva with HandiHaler) 2 puff inhalation DAILY breathing 07/22/14 [History Last Taken Unknown] cholecalciferol (vitamin D3) 50 mcg (2,000 unit) capsule 2,000 unit PO DAILY supplement 05/23/19 [History Last Taken Unknown] zafirlukast 20 mg tablet 20 mg PO BID asthma 05/23/19 [History Last Taken Unknown] ipratropium bromide 0.02 % solution for inhalation 2.5 ml inhalation BID breathing 11/26/20 [History Last Taken Unknown] amlodipine 10 mg tablet 10 mg PO DAILY B/P 02/11/21 [History Last Taken 02/09/21] albuterol sulfate 2.5 mg/3 mL (0.083 %) solution for nebulization 2.5 mg (3 mL) inhalation Q4H PRN shortness of breath or wheezing 30 days #90 mL 03/04/21 [Rx Last Taken Unknown] vit O-vrsiofz-vabzvmhtn-rutin-[id number] 500 mg-50 mg-25 mg-40 mg tablet ([email or web address]) 1 tab PO DAILY 10/28/21 [History Last Taken Unknown] albuterol sulfate 2.5 mg/3 mL (0.083 %) solution for nebulization 2.5 mg (3 mL) inhalation Q4H PRN #25 vials 02/14/22 [Rx Last Taken Unknown] bacitracin-polymyxin B 500 unit-10,000 unit/gram eye ointment 0.25 inch RIGHT EYE Q6H 10 days #3.5 grams 02/14/22 [Rx Last Taken Unknown] levofloxacin 500 mg tablet 500 mg PO DAILY #6 tabs 02/14/22 [Rx Last Taken Unknown] nystatin 100,000 unit/mL oral suspension 1 ml PO BID 10 days #20 mL 02/14/22 [Rx Last Taken Unknown] prednisone 20 mg tablet 40 mg PO DAILY 02/14/22 [History Last Taken Unknown] prednisone 20 mg tablet 60 mg PO DAILY #15 tabs 02/14/22 [Rx Last Taken Unknown] Allergy/AdvReac Type Severity Reaction Status Date / Time ampicillin Allergy stomach Verified 03/28/22 09:56 issues aspirin [ASA] Allergy Hives Verified 03/28/22 09:56 cephalexin monohydrate Allergy Hives Verified 03/28/22 09:56 [From Keflex] Family History Mother Hypertension Father Rheumatoid arthritis Heart disease Surgical History History of appendectomy History of cholecystectomy Hx of appendectomy Hx of cholecystectomy Hx of hysterectomy Hx of tonsillectomy Social History household members: spouse Smoking Status: Former smoker how long ago did patient quit smoking: Quit 2008, prior 1-1.5 ppd since youth. alcohol intake: never substance use type: does not use ROS ROS ED Constitutional Constitutional ED: Denies chills or weight loss Eyes Eyes: Denies change in vision or diplopia ENT ENT ED: Denies ear pain, rhinorrhea or sore throat Cardiovascular Cardiovascular: Denies chest pain, orthopnea, palpitations or racing heartbeat Respiratory/Chest Respiratory/Chest: Reports cough, dyspnea and dyspnea on exertion; Denies orthopnea Gastrointestinal Gastrointestinal: Denies abdominal pain, diarrhea, nausea or vomiting Genitourinary Genitourinary ED: Denies dysuria, hematuria or urinary frequency Musculoskeletal Musculoskeletal: Denies arthralgias or myalgias Integumentary Denies abscess or rash Neurologic Neurologic: Denies headache(s) or weakness Psychiatric Psychiatric: Denies anxiety, depression, suicidal ideation or suicidal thoughts Endocrine Endocrinology: Denies polydipsia, polyphagia or polyuria Allergic/Immunologic Allergic/Immunologic ED: Denies mouth swelling, tongue swelling or urticaria EXAM Physical Exam Narrative Exam Narrative: 71-year-old female sitting on a chair leaning forward. She states that she has done that for the past 13 years its not abnormal for her. Const Vital Signs: 03/28/22 09:56 03/28/22 10:08 03/28/22 10:20 Temperature 96.8 F L 96.8 F L Temperature Source Temporal Temporal Pulse Rate 106 H 106 H Respiratory Rate 20 H 20 H Respiratory Effort Short of Breath Respiratory Pattern Tachypnea Blood Pressure 171/90 H 171/90 H Blood Pressure Mean 117 117 Pulse Ox 99 99 Oxygen Delivery Method Nasal Cannula Nasal Cannula Oxygen Flow Rate (L/min) 2 2 03/28/22 11:18 03/28/22 12:01 Temperature Temperature Source Pulse Rate 98 102 H Respiratory Rate 20 H 22 H Respiratory Effort Respiratory Pattern Normal Blood Pressure Blood Pressure Mean Pulse Ox 98 Oxygen Delivery Method Nasal Cannula Oxygen Flow Rate (L/min) 2 Positive well nourished and well developed General Appearance ED: well developed HEENT Reports normocephalic, head/scalp atraumatic and moist mucous membranes Eyes PERRL and EOMs intact bilaterally Neck no lymphadenopathy, supple and no JVD Resp normal respiratory effort Resp Narrative: Patient has inspiratory and expiratory wheezing with rhonchi. She has conversational dyspnea but is able to complete a full sentence. Auscultation: rhonchi and wheezes Cardio regular rate, regular rhythm and no murmurs GI normal to inspection, nondistended, normoactive bowel sounds and non-tender Palpation: soft Back/Spine no CVA tenderness and normal ROM Extremity normal to inspection General Extremety ED: Negative for edema General Extremity: Negative for edema Neuro oriented x3 and CN's II-XII intact bilaterally Sensorium / Orientation: alert Motor Exam: strength 5/5 throughout Psych mental status grossly normal Mood & Affect: Negative for depressed or tearful Skin no rashes or lesions noted and no wounds MDM MDM MDM Narrative Medical decision making narrative: My interpretation of the chest x-ray is no acute process. White count slightly elevated 13.8 but she is also been on steroids for 4 days. Platelet count 496 with a hemoglobin of 11.7. BMP showed a potassium of 3.2. Patient received Solu-Medrol as well as breathing treatments and she feels better. Patient is currently using 2 L nasal cannula which is chronic for her. She does not feel that she needs to be admitted. Her wheezing is better after the treatments. She does have ipratropium at home that she can use but she has not been using it. I advised her to use that with her albuterol nebulizers. We will prescribe higher dose steroids have her continue her Levaquin. Return if worsening or concerns Lab Data Attestation: I reviewed the patient's lab results. Labs: Laboratory Results - last 24 hr 03/28/22 03/28/22 10:19 10:19 WBC 13.8 H RBC 4.20 Hgb 11.7 L Hct 36.4 L MCV 86.7 MCH 27.9 MCHC 32.1 RDW Std Deviation 43.1 RDW Coeff of [place] 13.6 Plt Count 496 H MPV 10.2 Immature Gran % (Auto) 0.500 Neut % (Auto) 76.6 H Lymph % (Auto) 11.8 L [place] % (Auto) 10.9 H Eos % (Auto) 0.1 Baso % (Auto) 0.1 Absolute Neuts (auto) 10.6 H Absolute Lymphs (auto) 1.63 Nucleated RBC % 0 Differential Comment COMMENT Diff Path Review May foll Sodium 140 Potassium 3.2 L Chloride 106 Carbon Dioxide 30.0 Anion Gap 4 L BUN 18 Creatinine 0.93 Estim Creat Clear Calc 43.08 Est GFR (MDRD) Af Amer 77 Est GFR (MDRD) Non-Af 63 BUN/Creatinine Ratio 19.4 Glucose 93 Calcium 9.3 Discharge Plan Triage Chief Complaint: Shortness of Breath ED Provider: Jaden Davison Dx/Rx/DC Orders Prescriptions: No Action levothyroxine 100 MCG tablet 100 mcg PO DAILY Label Comments: thyroid omeprazole 20 MG capsule 20 mg PO DAILY Label Comments: gerd budesonide 0.5 MG/2 ML suspension for nebulization 1 applicatio inhalation BID Label Comments: copd albuterol sulfate [ProAir HFA] 1 PUFF inhaler 2 puff inhalation Q4H PRN PRN (Reason: Sob &/Or Wheezing) Label Comments: copd Spiriva with HandiHaler 1 PUFF inhaler 2 puff inhalation DAILY Label Comments: copd formoterol fumarate [Perforomist] 20 MCG/2 ML solution for nebulization 20 mcg inhalation BID Label Comments: breathing zafirlukast 20 tablet 20 mg PO BID cholecalciferol (vitamin D3) 2,000 UNIT capsule 2,000 unit PO DAILY ipratropium bromide 0.02 % Solution 2.5 ml INHALATION BID amlodipine 10 mg tablet 10 mg PO DAILY albuterol sulfate 2.5 mg /3 mL (0.083 %) solution for nebulization 2.5 mg inhalation Q4H PRN (Reason: shortness of breath or wheezing) 30 Days Qty: 90 0RF Bioflex 939-51-56-40 mg Tablet 1 tab PO DAILY prednisone 20 MG tablet 40 mg PO DAILY prednisone 20 mg tablet 60 mg PO DAILY Qty: 15 0RF levofloxacin [levofloxacin] 500 mg tablet 500 mg PO DAILY Qty: 6 0RF bacitracin-polymyxin B 500-10,000 unit/gram ointment 0.25 inch RIGHT EYE Q6H 10 Days Qty: 3.5 0RF albuterol sulfate 2.5 mg /3 mL (0.083 %) solution for nebulization 2.5 mg inhalation Q4H PRN Qty: 25 0RF Rx Instructions: Use q4 hours and PRN for wheezing nystatin 100,000 unit/mL suspension 1 ml PO BID 10 Days Qty: 20 0RF Rx Instructions: swish and swallow Primary Care Provider: Bay Zepeda Referrals: Bay Zepeda DO [Primary Care Provider] -
[2022-03-28] MEDS: MethylPREDNISolone 125 MG/2 ML Vial IV (11:14)
[2022-03-28 11:18] VITALS: PULSE 98; RESP 20
[2022-03-28] MEDS: Albuterol 2.5 MG/3 ML VIAL.NEB. INHALATION (11:19)
[2022-03-28] MEDS: Ipratropium/Albuterol Sulfate 3 ML AMPUL.NEB INHALATION (11:19)
[2022-03-28 11:23] LABS: Absolute Lymphocyte Count 1.63 X10^3/uL (0.83-4.51); Absolute Neutrophil Count 10.6 X10^3/uL (2.0-7.7); Basophil# 0.02 X10^3/uL; Basophil% 0.1 % (0-1); Eosinophil# 0.02 X10^3/uL; Eosinophils% 0.1 % (0-5); Hematocrit 36.4 % (37-47); Hemoglobin 11.7 g/dL (12.0-15.0); Lymphocyte # 1.63 X10^3/ul (0.83-4.51); Lymphocyte % 11.8 % (19-41); Mean Corp Hgb Conc 32.1 g/dL (32-36); Mean Corpuscular Hgb 27.9 pg (27.0-32.0); Mean Corpuscular Volume 86.7 fL (81-99); Mean Platelet Vol. 10.2 fl (6.2-12.0); Monocyte# 1.51 X10^3/uL; Monocyte% 10.9 % (0-10); NRBC Flagged by Analyzer 0 % (0-5); Neutrophil # 10.56 X10^3/uL (2.7-7.7); Neutrophil % 76.6 % (47-70); POSITIVE DIFFERENTIAL YES; Platelet Count 496 K/mm3 (150-450); RBC Distribution Width CV 13.6 % (11.6-14.6); RBC Distribution Width SD 43.1 fl (35.1-43.9); White Blood Count 13.8 K/mm3 (4.4-11.0)
[2022-03-28 11:24] LABS: Differential Indicated SCAN CRITERIA MET
[2022-03-28 11:34] LABS: Anion Gap 4 (5-15); BUN 18 mg/dL (7-18); BUN/Creat Ratio 19.4 RATIO (10-20); Calcium,Total 9.3 mg/dL (8.5-10.1); Chloride 106 mmol/L (98-107); Creatinine, Serum 0.93 mg/dL (0.55-1.02); EST Glomerular Filtration Rate 63 mL/min (>60); Est Glom Filt Rate - Afr Amer 77 mL/min (>60); Estimated Creatinine Clearance 43.08 ml/min; Glucose 93 mg/dL (74-106); Potassium 3.2 mmol/L (3.5-5.1); Sodium Level 140 mmol/L (136-145)
[2022-03-28 12:01] VITALS: PULSE 102; RESP 22; O2SAT 98
[2022-03-28 12:43] VITALS: PULSE 98; RESP 18; O2SAT 98
[2022-03-29 13:00] LABS: Pathologist Review Reviewed
== END 2022-03-28 12:43 | disposition home or self-care (01) ==
PROVIDERS: Emergency Provider Emergency Medicine; PCP Family Medicine; Visit Provider Emergency Medicine
DX: R06.02 Shortness of breath (principal); J44.9 Chronic obstructive pulmonary disease, unspecified; I10 Essential (primary) hypertension; Z79.52 Long term (current) use of systemic steroids; Z87.891 Personal history of nicotine dependence
CPT/HCPCS: 71045; 80048; 85025; 87428; 94640; 96374; 99284; A4216

== ENCOUNTER 2022-04-23 00:29 | Emergency (ER) | payer BC, MEDICARE, SELFPAY ==
[2022-04-23 00:31] VITALS: BP 165/145; PULSE 104; RESP 26; TEMP 36.6; O2SAT 98; BMI 30.2
[2022-04-23 00:41] VITALS: O2SAT 97
--- NOTE | 2022-04-23 01:24 | ED.VIS.DYS ---
HPI History of Present Illness Chief Complaint: Shortness of Breath Narrative Narrative: Patient with a history of COPD on 2 L of oxygen at home has felt like she had a cold for the past 3 or 4 days, which has been flaring up her COPD. She has albuterol and aerosols at home she has been using them more. She denies any fevers or chills but she is coughing up some white phlegm. No blood. No chest pain. She was walking in her kitchen tonight and all of a sudden felt a painful pop in her right mid back that has been persistent and very painful to breathe and move. No recent immobilization or travel. No history of DVT or PE. She feels like there is a rib out of place, according to what she has same. She has a 3-year-old granddaughter who she has been exposed to who recently has had a cold and has not been tested for anything. This patient is not vaccinated against influenza and she has had no COVID-vaccine since her first 1 which made her too sick. [facility] Medical History Acute and chronic respiratory failure with hypoxia Anemia COPD (chronic obstructive pulmonary disease) COPD (chronic obstructive pulmonary disease) COPD (chronic obstructive pulmonary disease) Former smoker Former smoker GERD (gastroesophageal reflux disease) GERD (gastroesophageal reflux disease) HTN (hypertension) Hypertension Hypertension Hypothyroid Hypothyroidism Immune deficiency disorder Immune deficiency disorder Leukocytosis Obesity (BMI 30.0-34.9) On home oxygen therapy Osteoporosis RSV infection Thrombocytosis Thrush Home Medications albuterol sulfate 90 mcg/actuation aerosol inhaler (ProAir HFA) 2 puff inhalation Q4H PRN PRN Sob &/Or Wheezing 07/22/14 [History Last Taken Unknown] budesonide 0.5 mg/2 mL suspension for nebulization 1 applicatio inhalation BID breathing 07/22/14 [History Last Taken 07/21/14] formoterol fumarate 20 mcg/2 mL solution for nebulization (Perforomist) 20 mcg inhalation BID breathing 07/22/14 [History Last Taken 07/21/14] levothyroxine 100 mcg tablet 100 mcg PO DAILY thyroid 07/22/14 [History Last Taken 07/22/14] omeprazole 20 mg capsule,delayed release 20 mg PO DAILY stomach 07/22/14 [History Last Taken 07/21/14] tiotropium bromide 18 mcg capsule with inhalation device (Spiriva with HandiHaler) 2 puff inhalation DAILY breathing 07/22/14 [History Last Taken Unknown] cholecalciferol (vitamin D3) 50 mcg (2,000 unit) capsule 2,000 unit PO DAILY supplement 05/23/19 [History Last Taken Unknown] zafirlukast 20 mg tablet 20 mg PO BID asthma 05/23/19 [History Last Taken Unknown] ipratropium bromide 0.02 % solution for inhalation 2.5 ml inhalation BID breathing 11/26/20 [History Last Taken Unknown] amlodipine 10 mg tablet 10 mg PO DAILY B/P 02/11/21 [History Last Taken 02/09/21] albuterol sulfate 2.5 mg/3 mL (0.083 %) solution for nebulization 2.5 mg (3 mL) inhalation Q4H PRN shortness of breath or wheezing 30 days #90 mL 03/04/21 [Rx Last Taken Unknown] vit G-lpxznjw-geuciytee-rutin-[id number] 500 mg-50 mg-25 mg-40 mg tablet (Bioflex) 1 tab PO DAILY 10/28/21 [History Last Taken Unknown] albuterol sulfate 2.5 mg/3 mL (0.083 %) solution for nebulization 2.5 mg (3 mL) inhalation Q4H PRN #25 vials 02/14/22 [Rx Last Taken Unknown] bacitracin-polymyxin B 500 unit-10,000 unit/gram eye ointment 0.25 inch RIGHT EYE Q6H 10 days #3.5 grams 02/14/22 [Rx Last Taken Unknown] levofloxacin 500 mg tablet 500 mg PO DAILY #6 tabs 02/14/22 [Rx Last Taken Unknown] nystatin 100,000 unit/mL oral suspension 1 ml PO BID 10 days #20 mL 02/14/22 [Rx Last Taken Unknown] doxycycline monohydrate 100 mg capsule 100 mg PO BID #14 CAPSULES 04/23/22 [Rx Last Taken Unknown] oxycodone-acetaminophen 5 mg-325 mg tablet 1 tab PO Q6H PRN PRN Pain 3 days #12 TABLETS 04/23/22 [Rx Last Taken Unknown] prednisone 20 mg tablet See Rx Instructions .Route .COMPLEX #24 TABLETS 04/23/22 [Rx Last Taken Unknown] Allergy/AdvReac Type Severity Reaction Status Date / Time ampicillin Allergy stomach Verified 03/28/22 09:56 issues aspirin [ASA] Allergy Hives Verified 03/28/22 09:56 cephalexin monohydrate Allergy Hives Verified 03/28/22 09:56 [From Keflex] Family History Mother Hypertension Father Rheumatoid arthritis Heart disease Surgical History History of appendectomy History of cholecystectomy Hx of appendectomy Hx of cholecystectomy Hx of hysterectomy Hx of tonsillectomy Social History household members: spouse Smoking Status: Former smoker how long ago did patient quit smoking: Quit 2008, prior 1-1.5 ppd since youth. alcohol intake: never substance use type: does not use ROS ROS ED Constitutional Constitutional ED: Denies chills or fever(s) Eyes Eyes: Denies change in vision or diplopia ENT ENT ED: Denies rhinorrhea or sore throat Cardiovascular Cardiovascular: Denies chest pain or palpitations Respiratory/Chest Respiratory/Chest: Reports cough, dyspnea, dyspnea on exertion and sputum Gastrointestinal Gastrointestinal: Denies abdominal pain, diarrhea, nausea or vomiting Genitourinary Genitourinary ED: Denies dysuria or hematuria Musculoskeletal Musculoskeletal: Reports back pain; Denies neck pain Integumentary Denies abscess or rash Neurologic Neurologic: Denies headache(s), paresthesias or weakness Psychiatric Psychiatric: Denies anxiety or suicidal thoughts EXAM Physical Exam Const Vital Signs: 04/23/22 00:31 04/23/22 00:41 04/23/22 01:38 Temperature 97.9 F Temperature Source Temporal Pulse Rate 104 H Respiratory Rate 26 H Respiratory Effort Short of Breath Labored Respiratory Depth Shallow Respiratory Pattern Tachypnea Blood Pressure 165/145 H Blood Pressure Mean 151 Pulse Ox 98 Oxygen Delivery Method Nasal Cannula Nasal Cannula Nasal Cannula Oxygen Flow Rate (L/min) 2 2 2 Positive well nourished and well developed General Appearance ED: well developed and NAD HEENT Reports moist mucous membranes normocephalic and atraumatic Eyes PERRL and EOMs intact bilaterally Neck full ROM and supple Chest Wall Chest Narrative: Nontender and normal Resp normal respiratory effort Resp Narrative: Expiratory wheezes with prolonged expiratory phase throughout all lung hutchins, which are symmetric and equal. Trachea midline. Cardio regular rate, regular rhythm and no murmurs Cardio Narrative: Very mild tachycardia low 100 GI non-tender and non-distended Auscultation: normoactive bowel sounds Palpation: soft Back/Spine no CVA tenderness Back/Spine Narrative: Tender right posterior rib cage around the eighth and ninth ribs, paraspinal area all the way to the mid axillary line. No crepitance. There are some subcutaneous nodules that do not feel like bone and no other deformities. No signs of injury or ecchymosis/purpura. General Back: other FROM Extremity normal to inspection General Extremety ED: Yes edema; Negative for pulses abnormal or tenderness General Extremity: edema bilateral lower extremity Details: trace (Symmetric without signs of infection); Negative for pulses abnormal Neuro oriented x3, CN's II-XII intact bilaterally and no sensory deficits noted Sensorium / Orientation: awake and alert Motor Exam: strength 5/5 throughout Psych mental status grossly normal Skin no rashes or lesions noted and no wounds MDM MDM MDM Narrative Medical decision making narrative: 5 view x-ray series of the right ribs including a PA chest were obtained, I interpreted the films. I also agree with radiology's interpretation. There is no pneumothorax, there is a right fifth rib fracture consistent with the area where the patient is having pain. She her pain was treated here with mild improvement so she was given an additional dose of morphine prior to discharge home with prescriptions for prednisone and doxycycline for her COPD flareup, no signs of pneumonia on the chest x-ray. Also tested her for COVID and influenza those are negative. She is comfortable with that plan. Also patient admits that she does have a history of osteoporosis. Therefore an own the bone referral was placed to endocrine. Radiography Diagnostic Testing: Clinical Impression(s) from Imaging Studies Ribs w/Chest X-Ray 04/23/22 02:00 IMPRESSION: 1. COPD. 2. No evidence for acute cardiopulmonary pathology. 3. Fracture of the lateral segment of the right fifth rib, possibly acute. Electronically Signed: Blayne Brown MD at 2:34 EST , Discharge Plan Triage Chief Complaint: Shortness of Breath ED Provider: [place] Dx/Rx/DC Orders Clinical Impression: Acute exacerbation of chronic obstructive pulmonary disease, Right rib fracture, Viral URI with cough Instructions: Using an Incentive Spirometer, ED COPD Flare, ED Rib Fracture Prescriptions: New oxycodone-acetaminophen [oxycodone-acetaminophen] 1 TABLET tablet 1 tab PO Q6H PRN PRN (Reason: Pain) 3 Days Qty: 12 0RF doxycycline monohydrate 100 MG capsule 100 mg PO BID Qty: 14 0RF Continued prednisone 20 mg tablet See Rx Instructions .ROUTE .COMPLEX Qty: 24 0RF Rx Instructions: 3 tabs p.o. daily days 1 through 4, then 2 tabs p.o. daily days 5 through 8, then 1 tab p.o. daily day 9 through 12 Discontinued prednisone 20 MG tablet 40 mg PO DAILY prednisone 20 mg tablet 60 mg PO DAILY Qty: 15 0RF No Action levothyroxine 100 MCG tablet 100 mcg PO DAILY Label Comments: thyroid omeprazole 20 MG capsule 20 mg PO DAILY Label Comments: gerd budesonide 0.5 MG/2 ML suspension for nebulization 1 applicatio inhalation BID Label Comments: copd albuterol sulfate [ProAir HFA] 1 PUFF inhaler 2 puff inhalation Q4H PRN PRN (Reason: Sob &/Or Wheezing) Label Comments: copd Spiriva with HandiHaler 1 PUFF inhaler 2 puff inhalation DAILY Label Comments: copd formoterol fumarate [Perforomist] 20 MCG/2 ML solution for nebulization 20 mcg inhalation BID Label Comments: breathing zafirlukast 20 tablet 20 mg PO BID cholecalciferol (vitamin D3) 2,000 UNIT capsule 2,000 unit PO DAILY ipratropium bromide 0.02 % Solution 2.5 ml INHALATION BID amlodipine 10 mg tablet 10 mg PO DAILY albuterol sulfate 2.5 mg /3 mL (0.083 %) solution for nebulization 2.5 mg inhalation Q4H PRN (Reason: shortness of breath or wheezing) 30 Days Qty: 90 0RF Bioflex 705-47-16-40 mg Tablet 1 tab PO DAILY levofloxacin [levofloxacin] 500 mg tablet 500 mg PO DAILY Qty: 6 0RF bacitracin-polymyxin B 500-10,000 unit/gram ointment 0.25 inch RIGHT EYE Q6H 10 Days Qty: 3.5 0RF albuterol sulfate 2.5 mg /3 mL (0.083 %) solution for nebulization 2.5 mg inhalation Q4H PRN Qty: 25 0RF Rx Instructions: Use q4 hours and PRN for wheezing nystatin 100,000 unit/mL suspension 1 ml PO BID 10 Days Qty: 20 0RF Rx Instructions: swish and swallow Stand Alone Forms: Own the Bone Primary Care Provider: Bay Zepeda Referrals: Bay Zepeda DO [Primary Care Provider] - 1 Week Mumtaz Field MD [Med Staff - Courtesy Staff] - (call for follow up regarding your osteoporosis for appt within the next 1-2 months) Disposition Disposition: Home, Self Care
[2022-04-23] MEDS: predniSONE 20 MG Tablet 40 MG PO (01:34)
[2022-04-23] MEDS: oxyCODONE 5 MG Tablet PO (01:34)
[2022-04-23] MEDS: Ipratropium/Albuterol Sulfate 3 ML AMPUL.NEB INHALATION (01:36)
--- NOTE | 2022-04-23 02:00 | RAD_ITS ---
EXAM: XR RIGHT RIBS AND AP CHEST, 3 OR MORE VIEWS CLINICAL INDICATION: acute pain; copd flare/cough/sob prior acute pain; copd flare/cough/sob prior TECHNIQUE: Frontal and oblique views of the right ribs and frontal view of the chest. This report was created using [employer] report generation technology. COMPARISON: Chest x-ray 03/28/2022. FINDINGS: LUNGS AND PLEURAL SPACES: In general, the lungs are hyperexpanded. There minimal bilateral basilar atelectasis. There are emphysematous changes, which are most evident in the right upper lung field. There is no demonstrated acute pulmonary infiltrate. No pneumothorax. No effusion. HEART: Unremarkable. Cardiac silhouette not enlarged. MEDIASTINUM: Central airways and mediastinal contour are unremarkable. 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 There is a fracture through the lateral segment of the right fifth rib, seen on one view only, and which may be acute. RAD/Ribs Uni Min 3V w/PA Chest IMPRESSION: 1. COPD. 2. No evidence for acute cardiopulmonary pathology. 3. Fracture of the lateral segment of the right fifth rib, possibly acute. Electronically Signed: Blayne Brown MD at 2:34 EST ,
--- NOTE | 2022-04-23 02:46 | CPS ---
Aerosol completed by nurse Doreen Condon. RT unable to complete treatment due to emergency.
[2022-04-23] MEDS: Morphine 4 MG/ML Syringe IM (03:52)
[2022-04-23] MEDS: Ondansetron ODT 4 MG Tablet 8 MG PO (03:52)
[2022-04-23] MEDS: Albuterol 2.5 MG/3 ML VIAL.NEB. INHALATION (03:59)
[2022-04-23 04:04] VITALS: BP 154/91; PULSE 106; RESP 19; O2SAT 96
== END 2022-04-23 04:13 | disposition home or self-care (01) ==
PROVIDERS: Emergency Provider Emergency Medicine; PCP Family Medicine; Visit Provider Emergency Medicine
DX: J44.1 Chronic obstructive pulmonary disease with (acute) exacerbation (principal); J06.9 Acute upper respiratory infection, unspecified; S22.31XA Fracture of one rib, right side, initial encounter for closed fracture; X58.XXXA Exposure to other specified factors, initial encounter; Y93.01 Activity, walking, marching and hiking; Y92.000 Kitchen of unspecified non-institutional (private) residence as the place of occurrence of the external cause; Y99.8 Other external cause status; I10 Essential (primary) hypertension; E03.9 Hypothyroidism, unspecified; E66.9 Obesity, unspecified; Z68.30 Body mass index [BMI] 30.0-30.9, adult; Z99.81 Dependence on supplemental oxygen; Z79.899 Other long term (current) drug therapy; Z87.891 Personal history of nicotine dependence
CPT/HCPCS: 71101; 87428; 94640; 96372; 99283

== ENCOUNTER 2022-06-20 07:39 | Emergency (ER) | payer BC, MEDICARE, SELFPAY ==
[2022-06-20 07:40] VITALS: BP 154/112; PULSE 133; RESP 26; TEMP 35.7; O2SAT 92; BMI 29.9
--- NOTE | 2022-06-20 07:52 | RAD_ITS ---
STUDY: X-RAY CHEST REASON FOR EXAM: Female, 72 years old. COPD. Shortness of breath. Wheezing. TECHNIQUE: PA and lateral views of the chest. COMPARISON: Comparison is made with prior study dated 04/23/2022. FINDINGS: EKG electrodes are seen. Hyperinflation. Stable increased linear markings at the lung bases suggestive of scarring. Increased markings in the right upper lobe. These have progressed as compared to prior study. This may represent early infiltrate. Follow-up is recommended. There is no demonstrated pleural abnormality. Normal size heart. Normal mediastinum and paty. Normal visualized pulmonary arteries. Normal visualized aortic arch and descending thoracic aorta. There are diffuse degenerative changes of the visualized thoracic spine. Increased kyphosis. There is degenerative osteoarthritis of the bilateral shoulders. There is no demonstrated abnormality of the visualized soft tissue structures of the upper abdomen. RAD/Chest PA and Lateral IMPRESSION: Hyperinflation. Stable increased markings at the lung bases suggestive of scarring. Increased markings in the right upper lobe as compared to prior study. Early infiltrate should be Electronically Signed: Joseph Curran MD at 9:04 EST ,
--- NOTE | 2022-06-20 07:55 | EKG12_ITS ---
Test Reason : Blood Pressure : / mmHG Vent. Rate : 112 BPM Atrial Rate : 112 BPM P-R Int : 132 ms QRS Dur : 074 ms QT Int : 326 ms P-R-T Axes : 076 042 094 degrees QTc Int : 444 ms Sinus tachycardia Nonspecific T wave abnormality Abnormal ECG Confirmed by VERITO BARAHONA, AURELIO ([id number]), video editor MARICRUZ JAMIL ([id number]) on 06/21/2022 1:29:50 PM Referred By: Confirmed By:AURELIO SELLERS MD
--- NOTE | 2022-06-20 07:59 | EDS_ITS ---
HPI History of Present Illness Chief Complaint: Shortness of Breath Informant: patient Onset/Context/Timing Onset: Days (4) Context: gradual and onset Timing: Continuous Quality: Positive for Dyspnea on exertion and Wheezing Current Severity: Severe Maximum Severity: Severe Worsened by: Exertion and Coughing Relieved by: Rest and Albuterol Associated Symptoms cough Chest Pain: Positive for Tightness Narrative Narrative: 72-year-old female with a history of fairly significant COPD, she is on 4+ liters at home of oxygen, has been feeling a gradual onset of a flareup for the past 4 days or so. She woke up severely short of breath this morning discovering that her oxygen was not working correctly for some duration overnight, she remembers it working okay when she went to bed last night. She states her sister helped her get the oxygen in order and switch the tubing out and it was working okay but she was still really short of breath even despite an albuterol treatment so she came here. She states that she has some leftover prednisone, so she has had 2 days worth of prednisone 60 mg daily, with the latter have been yesterday, she took 40 mg in the morning and 20 mg each night. She is not coughing anymore than usual. She does have some nasal congestion and blowing out some green mucus occasionally, she denies any chills but is having some subjective low-grade fevers. No known sick contacts. No leg edema. No history of heart problems, she denies any symptoms of angina but states she is feeling tight when she is really wheezy like right now. [facility] Medical History Acute and chronic respiratory failure with hypoxia Anemia Asthma Bronchitis COPD (chronic obstructive pulmonary disease) COPD (chronic obstructive pulmonary disease) COPD (chronic obstructive pulmonary disease) Former smoker Former smoker GERD (gastroesophageal reflux disease) GERD (gastroesophageal reflux disease) HTN (hypertension) Hypertension Hypertension Hypothyroid Hypothyroidism Immune deficiency disorder Immune deficiency disorder Leukocytosis Obesity (BMI 30.0-34.9) On home oxygen therapy Osteoporosis RSV infection Thrombocytosis Thrush Home Medications albuterol sulfate 90 mcg/actuation aerosol inhaler (ProAir HFA) 2 puff inhalation Q4H PRN PRN Sob &/Or Wheezing 07/22/14 [History Last Taken Unknown] budesonide 0.5 mg/2 mL suspension for nebulization 1 applicatio inhalation BID breathing 07/22/14 [History Last Taken 07/21/14] formoterol fumarate 20 mcg/2 mL solution for nebulization (Perforomist) 20 mcg inhalation BID breathing 07/22/14 [History Last Taken 07/21/14] levothyroxine 100 mcg tablet 100 mcg PO DAILY thyroid 07/22/14 [History Last Taken 07/22/14] omeprazole 20 mg capsule,delayed release 20 mg PO DAILY stomach 07/22/14 [History Last Taken 07/21/14] ipratropium bromide 0.02 % solution for inhalation 2.5 ml inhalation BID breathing 11/26/20 [History Last Taken Unknown] oxycodone-acetaminophen 5 mg-325 mg tablet 1 tab PO Q6H PRN PRN Pain 3 days #12 TABLETS 04/23/22 [Rx Last Taken Unknown] albuterol sulfate 2.5 mg/3 mL (0.083 %) solution for nebulization 2.5 mg inhalation Q4H PRN shortness of breath or wheezing 05/29/22 [History Last Taken Unknown] amlodipine 5 mg tablet 5 mg PO DAILY 05/29/22 [History Last Taken Unknown] cholecalciferol (vitamin D3) 25 mcg (1,000 unit) capsule 25 mcg PO DAILY 05/29/22 [History Last Taken Unknown] ipratropium 0.5 mg-albuterol 3 mg (2.5 mg base)/3 mL nebulization soln 3 ml inhalation Q6H PRN 05/29/22 [History Last Taken Unknown] magnesium 200 mg tablet See Rx Instructions PO DAILY 05/29/22 [History Last Taken Unknown] potassium gluconate 2.5 mEq tablet 2.5 meq PO DAILY 05/29/22 [History Last Taken Unknown] spironolactone 25 mg tablet 25 mg PO DAILY 05/29/22 [History Last Taken Unknown] tiotropium bromide 18 mcg capsule with inhalation device (Spiriva with HandiHaler) 1 cap inhalation DAILY 05/29/22 [History Last Taken Unknown] zafirlukast 20 mg tablet 20 mg PO BID 05/29/22 [History Last Taken Unknown] levofloxacin 500 mg tablet 500 mg PO DAILY #7 tabs 06/20/22 [Rx Last Taken Unknown] prednisone 10 mg tablet 10 mg PO DAILY #42 TABLETS 06/20/22 [Rx Last Taken Unknown] Allergy/AdvReac Type Severity Reaction Status Date / Time ampicillin Allergy stomach Verified 06/20/22 08:48 issues aspirin [ASA] Allergy Hives Verified 06/20/22 08:48 cephalexin monohydrate Allergy Hives Verified 06/20/22 08:48 [From Keflex] sulfer Allergy Intermediate Other Uncoded 05/29/22 08:22 Family History Mother Hypertension Father Rheumatoid arthritis Heart disease Surgical History History of appendectomy History of cholecystectomy Hx of appendectomy Hx of cholecystectomy Hx of hysterectomy Hx of tonsillectomy Social History household members: spouse Smoking Status: Former smoker how long ago did patient quit smoking: Quit 2008, prior 1-1.5 ppd since youth. alcohol intake: never substance use type: does not use ROS ROS ED Constitutional Constitutional ED: Reports fever(s) and subjective; Denies chills Eyes Eyes: Denies change in vision or diplopia ENT ENT ED: Reports nasal congestion and rhinorrhea; Denies sore throat Cardiovascular Cardiovascular: Denies leg edema, palpitations or racing heartbeat Respiratory/Chest Respiratory/Chest: Reports chest tightness, cough, dyspnea and dyspnea on exertion Gastrointestinal Gastrointestinal: Denies abdominal pain, diarrhea, nausea or vomiting Genitourinary Genitourinary ED: Denies dysuria or hematuria Musculoskeletal Musculoskeletal: Denies back pain or neck pain Integumentary Denies abscess or rash Neurologic Neurologic: Denies headache(s), paresthesias or weakness Psychiatric Psychiatric: Denies anxiety or suicidal thoughts EXAM Physical Exam Const Vital Signs: 06/20/22 07:40 06/20/22 08:05 06/20/22 08:05 Temperature 96.2 F L Temperature Source Temporal Pulse Rate 133 H 122 H Respiratory Rate 26 H 18 Respiratory Effort Respiratory Depth Respiratory Pattern Blood Pressure 154/112 H Blood Pressure Mean 126 Pulse Ox 92 96 Oxygen Delivery Method Nasal Cannula Nasal Cannula Oxygen Flow Rate (L/min) 2 2 06/20/22 08:31 Temperature Temperature Source Pulse Rate Respiratory Rate Respiratory Effort Short of Breath Labored Accessory Muscle Use Respiratory Depth Normal Respiratory Pattern Tachypnea Blood Pressure Blood Pressure Mean Pulse Ox Oxygen Delivery Method Nasal Cannula Oxygen Flow Rate (L/min) 2 Positive well nourished and well developed General Appearance ED: well developed HEENT Reports moist mucous membranes normocephalic and atraumatic Eyes PERRL and EOMs intact bilaterally Neck full ROM, supple and no JVD Resp Resp Narrative: Mild respiratory distress, speaking in 5-7 word sentences. Keenly alert, able to stand and walk, oriented x3. Diffuse expiratory wheezes, no rales or rhonchi heard. Trachea midline. Equal breath sounds bilaterally. Obvious audible wheezing externally without stethoscope. Prolonged expiratory phase. Cardio regular rate, regular rhythm and no murmurs Rate: tachycardic GI non-tender and non-distended Auscultation: normoactive bowel sounds Palpation: soft Back/Spine no CVA tenderness General Back: other FROM Extremity normal to inspection General Extremety ED: Negative for edema, pulses abnormal or tenderness General Extremity: Negative for edema or pulses abnormal Neuro oriented x3, CN's II-XII intact bilaterally and no sensory deficits noted Sensorium / Orientation: awake and alert Motor Exam: strength 5/5 throughout Psych mental status grossly normal Skin no rashes or lesions noted and no wounds MDM MDM MDM Narrative Medical decision making narrative: 2 view chest x-ray my interpretation shows chronic COPD changes, no definite acute consolidations or infiltrates. I reviewed the radiologist interpretation. Patient was given a round of nebulizer treatments while we worked her up, she is definitely feeling better and conversing better. She is tachycardic, but she does not feel it. Respiratory rate down to 18/min. Not hypoxic on her home oxygen even less, at 2 L. Offered admission, she declines and wants to go home, she initially said she wanted another breathing treatment but states that she can do those at home and would prefer to be there, and breathing relatively well right now although still wheezing. She was given a dose of Solu-Medrol which is today's dose of steroids. She states she has done well with Levaquin in the past. I discussed with her the risk of mixing that with steroids, that there is a black box warning concerning tendon rupture. She understands that risk and wants it anyway because it has helped her in the past when she has been like this. Advised to follow-up with her business development specialist who is out of this local area, and will prescribe her a prednisone taper she is comfortable with that plan. Lab Data Attestation: I reviewed the patient's lab results. Labs: Laboratory Results - last 24 hr 06/20/22 06/20/22 06/20/22 08:07 08:07 08:07 WBC 16.3 H RBC 4.21 Hgb 11.8 L Hct 35.9 L MCV 85.3 MCH 28.0 MCHC 32.9 RDW Std Deviation 44.5 H RDW Coeff of [place] 14.5 Plt Count 403 MPV 9.4 Immature Gran % (Auto) 0.300 Neut % (Auto) 91.0 H Lymph % (Auto) 1.9 L [place] % (Auto) 6.7 Eos % (Auto) 0.0 Baso % (Auto) 0.1 Absolute Neuts (auto) 14.8 H Absolute Lymphs (auto) 0.31 L Nucleated RBC % 0 Differential Comment SCANNED Sodium 139 Potassium 3.8 Chloride 105 Carbon Dioxide 25.0 Anion Gap 9 BUN 17 Creatinine 1.10 H Estim Creat Clear Calc 35.91 Est GFR (MDRD) Af Amer 63 Est GFR (MDRD) Non-Af 52 L BUN/Creatinine Ratio 15.5 Glucose 152 H Calcium 9.7 Troponin I High Sens 16 B-Natriuretic Peptide 42.6 Radiography Diagnostic Testing: Clinical Impression(s) from Imaging Studies Chest X-Ray 06/20/22 07:52 IMPRESSION: Hyperinflation. Stable increased markings at the lung bases suggestive of scarring. Increased markings in the right upper lobe as compared to prior study. Early infiltrate should be Electronically Signed: Joseph Curran MD at 9:04 EST , Rhythm Strip Rhythm Strip: Sinus Tach Rate: 115 Ectopy: None EKG Initial EKG: Attestation: I personally reviewed and interpreted this EKG as follows: Interpretation: No Acute Injury Pattern and Sinus Tachycardia Prior EKG tracings: available for review Prior: Unchanged Discharge Plan Triage Chief Complaint: Shortness of Breath ED Provider: Santo Merida Dx/Rx/DC Orders Clinical Impression: Acute exacerbation of chronic obstructive pulmonary disease (COPD) Instructions: ED COPD Flare Prescriptions: New levofloxacin 500 mg tablet 500 mg PO DAILY Qty: 7 0RF prednisone 10 mg tablet 10 mg PO DAILY Qty: 42 0RF Rx Instructions: 6 po qd x 2 days, 4 po qd x 3 days, 2 po qd x 3 days, 1 po qd x 3 days No Action amlodipine 5 mg tablet 5 mg PO DAILY albuterol sulfate 2.5 mg /3 mL (0.083 %) solution for nebulization 2.5 mg inhalation Q4H PRN (Reason: shortness of breath or wheezing) cholecalciferol (vitamin D3) 25 mcg (1,000 unit) capsule 25 mcg PO DAILY ipratropium-albuterol 0.5 mg-3 mg(2.5 mg base)/3 mL solution for nebulization 3 ml inhalation Q6H PRN magnesium 200 mg tablet See Rx Instructions PO DAILY Rx Instructions: 100mg , take 1/2 tab daily potassium gluconate 2.5 mEq tablet 2.5 meq PO DAILY Spiriva with HandiHaler 18 mcg capsule, w/inhalation device 1 cap inhalation DAILY Rx Instructions: puncture 1 cap using device; one dose = 2 inhalations spironolactone 25 mg tablet 25 mg PO DAILY zafirlukast 20 mg tablet 20 mg PO BID Rx Instructions: must be taken on empty stomach, at least 1 hr before or 2 hrs after a meal/food levothyroxine 100 MCG tablet 100 mcg PO DAILY Label Comments: thyroid omeprazole 20 MG capsule 20 mg PO DAILY Label Comments: gerd budesonide 0.5 MG/2 ML suspension for nebulization 1 applicatio inhalation BID Label Comments: copd albuterol sulfate [ProAir HFA] 1 PUFF inhaler 2 puff inhalation Q4H PRN PRN (Reason: Sob &/Or Wheezing) Label Comments: copd formoterol fumarate [Perforomist] 20 MCG/2 ML solution for nebulization 20 mcg inhalation BID Label Comments: breathing ipratropium bromide 0.02 % Solution 2.5 ml INHALATION BID oxycodone-acetaminophen [oxycodone-acetaminophen] 1 TABLET tablet 1 tab PO Q6H PRN PRN (Reason: Pain) 3 Days Qty: 12 0RF Primary Care Provider: Prosper Roman Referrals: Bay Zepeda DO [Non-Staff] - 3-5 Days if not improving Disposition Disposition: Home, Self Care
[2022-06-20] MEDS: Ipratropium/Albuterol Sulfate 3 ML AMPUL.NEB INHALATION (08:03)
[2022-06-20 08:05] VITALS: PULSE 122; RESP 18; O2SAT 96
[2022-06-20 08:16] LABS: Absolute Lymphocyte Count 0.31 X10^3/uL (0.83-4.51); Absolute Neutrophil Count 14.8 X10^3/uL (2.0-7.7); Basophil# 0.02 X10^3/uL; Basophil% 0.1 % (0-1); Hematocrit 35.9 % (37-47); Hemoglobin 11.8 g/dL (12.0-15.0); Lymphocyte # 0.31 X10^3/ul (0.83-4.51); Lymphocyte % 1.9 % (19-41); Mean Corp Hgb Conc 32.9 g/dL (32-36); Mean Corpuscular Volume 85.3 fL (81-99); Mean Platelet Vol. 9.4 fl (6.2-12.0); Monocyte% 6.7 % (0-10); NRBC Flagged by Analyzer 0 % (0-5); Neutrophil # 14.83 X10^3/uL (2.7-7.7); POSITIVE DIFFERENTIAL YES; Platelet Count 403 K/mm3 (150-450); RBC Distribution Width CV 14.5 % (11.6-14.6); RBC Distribution Width SD 44.5 fl (35.1-43.9); Red Blood Count 4.21 M/mm3 (4.2-5.4); White Blood Count 16.3 K/mm3 (4.4-11.0)
[2022-06-20] MEDS: Albuterol 2.5 MG/3 ML VIAL.NEB. INHALATION ×2 (08:18→09:12)
[2022-06-20 08:26] LABS: Differential Indicated SCAN CRITERIA MET
[2022-06-20 08:31] VITALS: O2SAT 95
[2022-06-20 08:36] LABS: Differential Comment SCANNED
[2022-06-20 08:37] LABS: BNP,B-Type NATRIURETIC PEPTIDE 42.6 pg/mL (0-100)
[2022-06-20 08:38] LABS: Anion Gap 9 (5-15); BUN 17 mg/dL (7-18); BUN/Creat Ratio 15.5 RATIO (10-20); Calcium,Total 9.7 mg/dL (8.5-10.1); Chloride 105 mmol/L (98-107); EST Glomerular Filtration Rate 52 mL/min (>60); Est Glom Filt Rate - Afr Amer 63 mL/min (>60); Estimated Creatinine Clearance 35.91 ml/min; Glucose 152 mg/dL (74-106); Potassium 3.8 mmol/L (3.5-5.1); Sodium Level 139 mmol/L (136-145); Troponin-I HS 16 pg/mL (3.0-54.0)
[2022-06-20 09:40] VITALS: BP 124/69; PULSE 112; RESP 24; O2SAT 96
[2022-06-20] MEDS: MethylPREDNISolone 125 MG/2 ML Vial IV (09:57)
[2022-06-20 10:01] VITALS: BP 141/82; PULSE 110; RESP 24; O2SAT 94
== END 2022-06-20 10:02 | disposition home or self-care (01) ==
PROVIDERS: Emergency Provider Emergency Medicine; PCP Family Medicine; Visit Provider Emergency Medicine
DX: J44.1 Chronic obstructive pulmonary disease with (acute) exacerbation (principal); Z87.891 Personal history of nicotine dependence; Z99.81 Dependence on supplemental oxygen
CPT/HCPCS: 71046; 80048; 83880; 84484; 85025; 87428; 93005; 94640; 96374; 99284; A4216

== ENCOUNTER 2022-08-16 21:15 | Emergency (ER) | payer BC, MEDICARE, SELFPAY ==
[2022-08-16 21:17] VITALS: BP 188/90; PULSE 99; RESP 18; TEMP 36.4; O2SAT 97; BMI 29.6
--- NOTE | 2022-08-16 21:49 | CT_ITS ---
EXAM: CT ABDOMEN AND PELVIS WITH INTRAVENOUS CONTRAST CLINICAL INDICATION: abdominal pain TECHNIQUE: Helically acquired images were obtained of the abdomen and pelvis with intravenous contrast. This CT exam was performed using one or more of the following dose reduction techniques: automated exposure control, adjustment of the mA and/or kV according to patient size, and/or use of iterative reconstruction technique. This report was created using [employer] report generation technology. CONTRAST: IV 100mL [id number] COMPARISON: None. FINDINGS: LOWER THORAX: Unremarkable. Lung bases are clear. No cardiomegaly. No significant pericardial effusion. ABDOMEN: LIVER: Unremarkable. Homogeneous. No focal mass. GALLBLADDER AND BILE DUCTS: There are surgical clips from a cholecystectomy. No intra- or extrahepatic biliary ductal dilation. PANCREAS: Unremarkable. No focal cystic or solid mass. SPLEEN: Unremarkable. Normal size without focal cystic or solid mass. ADRENALS: Unremarkable. No nodules. KIDNEYS AND URETERS: There are low-density masses on the right kidney compatible with cysts. No follow-up imaging is necessary. No hydronephrosis. STOMACH AND BOWEL: There is a right lateral ventral hernia contains a portion of the colon in the hernia sac may represent a Spigelian hernia. There is no evidence of obstruction. No focal inflammatory change. PELVIS: APPENDIX: No evidence of acute appendicitis. BLADDER: Unremarkable. REPRODUCTIVE: The patient status post hysterectomy. ABDOMEN and PELVIS: INTRAPERITONEAL SPACE: Unremarkable. No ascites or other fluid collection. No free air. BONES/JOINTS: Unremarkable. No suspicious lytic or blastic abnormality. SOFT TISSUES: See above. VASCULATURE: Unremarkable. Abdominal aorta is non-dilated. LYMPH NODES: Unremarkable. No enlarged lymph nodes. CT/Abdomen/Pelvis W IV Cont ONLY IMPRESSION: Right lateral ventral hernia which may represent a spigelian hernia. A portion of the colon is herniated through the defect. There is no obstruction. No other acute abnormalities are identified. Electronically Signed: Gregorio Villafuerte MD at 23:09 EDT ,
--- NOTE | 2022-08-16 21:50 | EDS_ITS ---
HPI HPI - GI History of Present Illness Chief Complaint: Abd Pain Informant: patient Narrative Narrative: Patient presents with about 4 hours of right lower quadrant abdominal pain. Patient states she was just on the computer. She got up and moved and got sharp pain in the right lower abdomen. She states it is right where she has had a hernia for 5 or more years. The hernia is thought to be incisional. They did not want to do surgery years ago because she was 180 290 pounds. But she has gotten down to 155. Normally the hernia does not bother her. She has had appendectomy cholecystectomy and hysterectomy. She has had kidney stones but does not have any flank pain and this does not feel like a kidney stone to her. She has no urinary symptoms. Before this started she felt absolutely normal and standard health. No fevers or chills. No change in bowel habits. She has been eating and drinking normally. Patient states it is worse if she lays down or press on it. She is more comfortable standing on the edge of the bed. She also does not like laying flat because of her chronic breathing issues though. [facility] Medical History Acute and chronic respiratory failure with hypoxia Anemia Asthma Bronchitis COPD (chronic obstructive pulmonary disease) COPD (chronic obstructive pulmonary disease) COPD (chronic obstructive pulmonary disease) Former smoker Former smoker GERD (gastroesophageal reflux disease) GERD (gastroesophageal reflux disease) HTN (hypertension) Hypertension Hypertension Hypothyroid Hypothyroidism Immune deficiency disorder Immune deficiency disorder Leukocytosis Obesity (BMI 30.0-34.9) On home oxygen therapy Osteoporosis RSV infection Thrombocytosis Thrush Home Medications albuterol sulfate 90 mcg/actuation aerosol inhaler (ProAir HFA) 2 puff inhalation Q4H PRN PRN Sob &/Or Wheezing 07/22/14 [History Last Taken Unknown] budesonide 0.5 mg/2 mL suspension for nebulization 1 applicatio inhalation BID breathing 07/22/14 [History Last Taken 07/21/14] formoterol fumarate 20 mcg/2 mL solution for nebulization (Perforomist) 20 mcg inhalation BID breathing 07/22/14 [History Last Taken 07/21/14] levothyroxine 100 mcg tablet 100 mcg PO DAILY thyroid 07/22/14 [History Last Taken 07/22/14] omeprazole 20 mg capsule,delayed release 20 mg PO DAILY stomach 07/22/14 [History Last Taken 07/21/14] ipratropium bromide 0.02 % solution for inhalation 2.5 ml inhalation BID breathing 11/26/20 [History Last Taken Unknown] oxycodone-acetaminophen 5 mg-325 mg tablet 1 tab PO Q6H PRN PRN Pain 3 days #12 TABLETS 04/23/22 [Rx Last Taken Unknown] albuterol sulfate 2.5 mg/3 mL (0.083 %) solution for nebulization 2.5 mg i nhalation Q4H PRN shortness of breath or wheezing 05/29/22 [History Last Taken Unknown] amlodipine 5 mg tablet 5 mg PO DAILY 05/29/22 [History Last Taken Unknown] cholecalciferol (vitamin D3) 25 mcg (1,000 unit) capsule 25 mcg PO DAILY 05/29/22 [History Last Taken Unknown] ipratropium 0.5 mg-albuterol 3 mg (2.5 mg base)/3 mL nebulization soln 3 ml inhalation Q6H PRN 05/29/22 [History Last Taken Unknown] magnesium 200 mg tablet See Rx Instructions PO DAILY 05/29/22 [History Last Taken Unknown] potassium gluconate 2.5 mEq tablet 2.5 meq PO DAILY 05/29/22 [History Last Taken Unknown] spironolactone 25 mg tablet 25 mg PO DAILY 05/29/22 [History Last Taken Unknown] tiotropium bromide 18 mcg capsule with inhalation device (Spiriva with HandiHaler) 1 cap inhalation DAILY 05/29/22 [History Last Taken Unknown] zafirlukast 20 mg tablet 20 mg PO BID 05/29/22 [History Last Taken Unknown] levofloxacin 500 mg tablet 500 mg PO DAILY #7 tabs 06/20/22 [Rx Last Taken Unknown] prednisone 10 mg tablet 10 mg PO DAILY #42 TABLETS 06/20/22 [Rx Last Taken Unknown] Allergy/AdvReac Type Severity Reaction Status Date / Time Environmental Allergies: Allergy Intermediate PT UNABLE Verified 08/16/22 21:19 Uncoded TO RESPOND-NEEDS F/U ampicillin Allergy stomach Verified 08/16/22 21:19 issues aspirin [ASA] Allergy Hives Verified 08/16/22 21:19 cephalexin monohydrate Allergy Hives Verified 08/16/22 21:19 [From [facility]] Family History Mother Hypertension Father Rheumatoid arthritis Heart disease Surgical History History of appendectomy History of cholecystectomy Hx of appendectomy Hx of cholecystectomy Hx of hysterectomy Hx of tonsillectomy Social History household members: spouse Smoking Status: Former smoker how long ago did patient quit smoking: Quit 2009, prior 1-1.5 ppd since youth. alcohol intake: never substance use type: does not use ROS ROS ED Constitutional Constitutional ED: Denies fever(s) Cardiovascular Cardiovascular: Denies chest pain or palpitations Respiratory/Chest Respiratory/Chest: Reports other Details: Patient has a chronic cough but is not different or changed. ; Denies cough or dyspnea Gastrointestinal Gastrointestinal: Reports abdominal pain; Denies constipation, diarrhea, melena, nausea or vomiting Genitourinary Genitourinary ED: Denies dysuria, hematuria or urinary frequency Musculoskeletal Musculoskeletal: Denies back pain Integumentary Denies rash Neurologic Neurologic: Denies headache(s) Endocrine Endocrinology: Denies polydipsia or polyuria Hematologic/Lymphatic Hematologic/Lymphatic: Denies easy bleeding or easy bruising EXAM Physical Exam Narrative Exam Narrative: CONSTITUTIONAL: Patient is nontoxic in appearance. The patient looks mildly uncomfortable. HEENT: No notable trauma. Mucous membranes moist. EYES: No conjunctival injection. Mild proptosis. CARDIOVASCULAR: Regular rate. Regular rhythm. No notable murmur. No JVD. RESPIRATORY: No respiratory distress. Breathing is unlabored. No wheezes despite her history of COPD. She does wear oxygen. GASTROINTESTINAL: Not distended. Bowel sounds are normal. There is tenderness that is quite focal at the right lower quadrant. But it is a little bit more toward the midline and McBurney's point. There does appear to be some fullness there. She has scarring from prior appendectomy. I cannot definitively feel herniation though. When I had the patient lay down I felt like there was some tissue but it seemed to disappear. But it did not have the normal feel of hernia reduction. Nor did it change her symptoms. I see no skin changes in the area. There is no inguinal fullness or tenderness. GENITOURINARY: No tenderness over the bladder. No CVA tenderness on either side. MUSCULOSKELETAL: Atraumatic. No peripheral edema. No cord. No tenderness along the deep venous system. No asymmetry. NEUROLOGICAL: Patient is alert and appropriate. SKIN: No noted rashes. No diaphoresis. PSYCHIATRIC: Patient is calm. Mood is appropriate. Const Vital Signs: 08/16/22 21:17 08/17/22 00:45 Temperature 97.6 F L Temperature Source Temporal Pulse Rate 99 105 H Respiratory Rate 18 20 H Respiratory Pattern Normal Blood Pressure 188/90 H Blood Pressure Mean 122 Pulse Ox 97 Oxygen Delivery Method Room Air MDM MDM MDM Narrative Medical decision making narrative: My independent interpretation of this patient's CT does show a very large hernia to the right of the rectus. This is consistent with her area of pain. Final reading is similar. Patient CBC shows a very high white count. But she has had this many times before and she is currently on about 4 5 days of prednisone. She has no fevers. Electrolytes showed no marked abnormalities. Glucose is up slightly which may also be due to the steroids. Urine shows increased white cells but she has no symptoms of infection. We have tried to reduce this. I have laid the patient back. She cannot lay back for long because of her chronic dyspnea. Her breathing is worse than but she tolerates it well and does not desaturate. I have tried to reduce this. I had a small bubbling of hernial contents. But I cannot get this to easily reduce. I was surprised because on CT it looks like there is a large defect through which the material could be reduced. I do not think this is the best candidate for surgery. I think it is best if we could get this reduced. Because of her symptoms pain CT finding I have contacted surgery and will talk/review the case with Dr. Levine. Patient initially was okay with morphine but then she stated she had some reaction to it that she did not know what it was but did not want the medicine. We then tried fentanyl. She had no reaction. She does feel a lot better. But pressing on the area is still causing pain. It is very hard to feel the defined edges of this hernia. But she still has pain tenderness and I cannot tell that this is reduced. There has not been a reduction in size of the area. We tried further reduction. I used an assistant banquet manager. We tried to apply pressure circumferentially around all edges. We tried to apply this pressure centered over where the defect appears to be based on CT scan findings. I tried to feel the defect manually but cannot find the definitive spot. We held pressure for a while. We tried from different angles. We have tried pulling the edges toward the center and then applying top pressure. But I cannot get any reduction. Patient states it still feels different than normal. Normally it does not hurt. But it is still sore. She states she cannot feel if it is bigger or smaller than normal because she never can feel if its out she just knows if it hurts. It is never hurt for more than about 30 minutes or an hour in the past. Dr. Levine came into the emergency department see the patient. Using ultrasound she was able to isolate the hernia and then get the stool in the bowel portion reduced. There may be some tissue out but all the bowel appears to be in. Patient feels much better. Plan will be to get her home. She will follow-up in the office with surgery planned at a time where her breathing is at its best. She was coached extensively on reasons to return. She will also use stool softeners. She has MiraLAX at home. Lab Data Attestation: I reviewed the patient's lab results. Labs: Laboratory Results - last 24 hr 08/16/22 08/16/22 08/16/22 22:09 22:09 22:09 WBC 23.2 H RBC 4.55 Hgb 12.5 Hct 39.3 MCV 86.4 MCH 27.5 MCHC 31.8 L RDW Std Deviation 48.8 H RDW Coeff of [place] 15.4 H Plt Count 521 H MPV 9.4 Immature Gran % (Auto) 0.900 Neut % (Auto) 95.5 H Lymph % (Auto) 1.9 L [place] % (Auto) 1.5 Eos % (Auto) 0.0 Baso % (Auto) 0.2 Absolute Neuts (auto) 22.1 H Absolute Lymphs (auto) 0.44 L Nucleated RBC % 0 Differential Comment SCANNED Sodium 137 Potassium 4.2 Chloride 105 Carbon Dioxide 26.0 Anion Gap 6 BUN 19 H Creatinine 1.02 Estim Creat Clear Calc 38.73 Est GFR (MDRD) Af Amer 69 Est GFR (MDRD) Non-Af 57 L BUN/Creatinine Ratio 18.6 Glucose 141 H Calcium 9.9 Urine Color Yellow Urine Clarity Clear Urine pH 6.0 Ur Specific [place] 1.010 Urine Protein 15 H Urine Glucose (UA) Normal Urine Ketones Negative Urine Occult Blood 10 H Urine Nitrite Negative Urine Bilirubin Negative Urine Urobilinogen Normal Ur Leukocyte Esterase 500 H Urine RBC 0-5 SEEN Urine WBC 10-25 SEEN Ur Squamous Epith Cells 0-5 SEEN Urine Bacteria RARE Urine Mucus 0 SEEN Radiography Diagnostic Testing: Clinical Impression(s) from Imaging Studies Abdomen/Pelvis CT 08/16/22 21:49 IMPRESSION: Right lateral ventral hernia which may represent a spigelian hernia. A portion of the colon is herniated through the defect. There is no obstruction. No other acute abnormalities are identified. Electronically Signed: Gregorio Villafuerte MD at 23:09 EDT , Discharge Plan Triage Chief Complaint: Abd Pain ED Provider: Reinaldo Godfrey Dx/Rx/DC Orders Clinical Impression: Incisional hernia, Abdominal pain, History of COPD Instructions: ED Hernia (Adult) Prescriptions: No Action amlodipine 5 mg tablet 5 mg PO DAILY albuterol sulfate 2.5 mg /3 mL (0.083 %) solution for nebulization 2.5 mg inhalation Q4H PRN (Reason: shortness of breath or wheezing) cholecalciferol (vitamin D3) 25 mcg (1,000 unit) capsule 25 mcg PO DAILY ipratropium-albuterol 0.5 mg-3 mg(2.5 mg base)/3 mL solution for nebulization 3 ml inhalation Q6H PRN magnesium 200 mg tablet See Rx Instructions PO DAILY Rx Instructions: 100mg , take 1/2 tab daily potassium gluconate 2.5 mEq tablet 2.5 meq PO DAILY Spiriva with HandiHaler 18 mcg capsule, w/inhalation device 1 cap inhalation DAILY Rx Instructions: puncture 1 cap using device; one dose = 2 inhalations spironolactone 25 mg tablet 25 mg PO DAILY zafirlukast 20 mg tablet 20 mg PO BID Rx Instructions: must be taken on empty stomach, at least 1 hr before or 2 hrs after a meal/food levothyroxine 100 MCG tablet 100 mcg PO DAILY Label Comments: thyroid omeprazole 20 MG capsule 20 mg PO DAILY Label Comments: gerd budesonide 0.5 MG/2 ML suspension for nebulization 1 applicatio inhalation BID Label Comments: copd albuterol sulfate [ProAir HFA] 1 PUFF inhaler 2 puff inhalation Q4H PRN PRN (Reason: Sob &/Or Wheezing) Label Comments: copd formoterol fumarate [Perforomist] 20 MCG/2 ML solution for nebulization 20 mcg inhalation BID Label Comments: breathing ipratropium bromide 0.02 % Solution 2.5 ml INHALATION BID oxycodone-acetaminophen [oxycodone-acetaminophen] 1 TABLET tablet 1 tab PO Q6H PRN PRN (Reason: Pain) 3 Days Qty: 12 0RF levofloxacin 500 mg tablet 500 mg PO DAILY Qty: 7 0RF prednisone 10 mg tablet 10 mg PO DAILY Qty: 42 0RF Rx Instructions: 6 po qd x 2 days, 4 po qd x 3 days, 2 po qd x 3 days, 1 po qd x 3 days Primary Care Provider: Prosper Roman Referrals: Prosper Roman DO [Primary Care Provider] - Chloé Levine MD [Med Staff - Active Staff] - As soon as possible (Call tomorrow for an appointment.) Disposition Disposition: Home, Self Care
[2022-08-16 22:15] LABS: Mucous, Urine 0 SEEN /hpf (<or=2+)
[2022-08-16 22:16] LABS: Absolute Lymphocyte Count 0.44 X10^3/uL (0.83-4.51); Absolute Neutrophil Count 22.1 X10^3/uL (2.0-7.7); Basophil# 0.05 X10^3/uL; Basophil% 0.2 % (0-1); Hematocrit 39.3 % (37-47); Hemoglobin 12.5 g/dL (12.0-15.0); Lymphocyte # 0.44 X10^3/ul (0.83-4.51); Lymphocyte % 1.9 % (19-41); Mean Corp Hgb Conc 31.8 g/dL (32-36); Mean Corpuscular Hgb 27.5 pg (27.0-32.0); Mean Corpuscular Volume 86.4 fL (81-99); Mean Platelet Vol. 9.4 fl (6.2-12.0); Monocyte# 0.35 X10^3/uL; Monocyte% 1.5 % (0-10); NRBC Flagged by Analyzer 0 % (0-5); Neutrophil # 22.12 X10^3/uL (2.7-7.7); Neutrophil % 95.5 % (47-70); POSITIVE DIFFERENTIAL YES; Platelet Count 521 K/mm3 (150-450); RBC Distribution Width CV 15.4 % (11.6-14.6); RBC Distribution Width SD 48.8 fl (35.1-43.9); Red Blood Count 4.55 M/mm3 (4.2-5.4); White Blood Count 23.2 K/mm3 (4.4-11.0)
[2022-08-16 22:17] LABS: Color, Urine Yellow (Yellow); Glucose, Dipstick Normal (Normal); Ketone-Dipstick Negative (Negative); Leukocyte Esterase-Dipstick 500 /ul (Negative); Nitrite-Dipstick Negative (Negative); Occult Blood-Urine 10 /ul (Negative); Protein-Dipstick 15 mg/dl (Negative); Urine Bilirubin Dipstick Negative (Negative); Urine Clarity Clear (Clear); Urine Urobilinogen Normal (Normal)
[2022-08-16 22:19] LABS: Differential Indicated SCAN CRITERIA MET
[2022-08-16 22:25] LABS: Bacteria RARE /hpf (None Seen); Red Blood Cells-Urine 0-5 SEEN /hpf (0-5); Squamous Epithelial Cells - UA 0-5 SEEN /hpf (5-10); White Blood Cells 10-25 SEEN /hpf (0-5)
[2022-08-16 22:29] LABS: Anion Gap 6 (5-15); BUN 19 mg/dL (7-18); BUN/Creat Ratio 18.6 RATIO (10-20); Calcium,Total 9.9 mg/dL (8.5-10.1); Chloride 105 mmol/L (98-107); Creatinine, Serum 1.02 mg/dL (0.55-1.02); EST Glomerular Filtration Rate 57 mL/min (>60); Est Glom Filt Rate - Afr Amer 69 mL/min (>60); Estimated Creatinine Clearance 38.73 ml/min; Glucose 141 mg/dL (74-106); Potassium 4.2 mmol/L (3.5-5.1); Sodium Level 137 mmol/L (136-145)
[2022-08-16 23:07] LABS: Differential Comment SCANNED
[2022-08-16] MEDS: fentaNYL 100 MCG/2 ML Ampul 25 MCG IV (23:23)
[2022-08-17 00:45] VITALS: PULSE 105; RESP 20
[2022-08-17] MEDS: Ipratropium/Albuterol Sulfate 3 ML AMPUL.NEB INHALATION (00:45)
[2022-08-17] MEDS: fentaNYL 100 MCG/2 ML Ampul 25 MCG IV (01:30)
--- NOTE | 2022-08-17 01:49 | CON.PCM.SX_ITS ---
Assessment & Plan Assessment/Plan (1) Incisional hernia of anterior abdominal wall without obstruction or gangrene: PLAN: Plan Was able to reduce the colon from the hernia due to this not being a full- thickness hernia difficult to get all of the abdominal fat back and it is likely some of this is always out. Bedside ultrasound did confirm cecum reduced back in the abdomen. Patient states her pain is improved. Patient stay in the ER for all but to make sure the pain is still improved. Discussed with patient that she can follow-up with me in the office however if she does have pain like this again when asked to come back to the ER. Also discussed that timing of surgery would depend on her COPD exacerbations for which she has been frequently treated with steroids and antibiotics. Patient was agreeable with plan. Also recommend patient take laxatives to prevent any constipation as additional straining may cause more to protrude through the hernia. Chloé Levine M.D. Pager: [phone] [facility] [address] [place] [address], [facility], [address] [place] [address] Office: [phone] HPI Consult Data Date of Consult: 08/17/22 HPI Narrative Reason for Consultation: Incisional hernia, abdominal pain HPI Narrative: CYNDIE OLIVIER, is a 72 F who presents presents due to right lower quadrant pain/hernia. Patient states this pain started this evening and normally she does not have pain with her known hernia. Patient also has significant past medical history of COPD is currently on her third day of prednisone 40 mg p.o. and also amoxicillin patient does have home O2 which she states she can not wear for quick trips out of the house otherwise on 2 L nasal cannula. Patient states she needs to sit up to prevent wheezing currently. Few weeks before patient also had steroids as well as antibiotic. Patient states she knows she has had a hernia seen a specialist unsure if she had a CAT scan anything at that time but was told due to her weight being 180 pounds that I cannot be repaired at that time. Patient does not really notice that she has a hernia normally or bulge and does not really feel the area. Even she presented to the ER cannot really say if she had a bulge or not. CT abdomen pelvis was done which showed possible spigelian hernia however patient does have an incision in this area from an open appendectomy. This did contain some the cecum with stool and then abdominal fat. The neck of the hernia is about 4 cm. Patient did have a white blood count 23 but again is on prednisone for last 3 days. ER physician did try to reduce was not able to feel the edges well due to it is still having external layer of fascia?CT abdomen pelvis was after some attempt at reducing. Patient states she does get constipated but does not take any medications for this. [facility] Medical History Acute and chronic respiratory failure with hypoxia Anemia Asthma Bronchitis COPD (chronic obstructive pulmonary disease) COPD (chronic obstructive pulmonary disease) COPD (chronic obstructive pulmonary disease) Former smoker Former smoker GERD (gastroesophageal reflux disease) GERD (gastroesophageal reflux disease) HTN (hypertension) Hypertension Hypertension Hypothyroid Hypothyroidism Immune deficiency disorder Immune deficiency disorder Leukocytosis Obesity (BMI 30.0-34.9) On home oxygen therapy Osteoporosis RSV infection Thrombocytosis Thrush Home Medications albuterol sulfate 90 mcg/actuation aerosol inhaler (ProAir HFA) 2 puff inhalation Q4H PRN PRN Sob &/Or Wheezing 07/22/14 [History Last Taken Unknown] budesonide 0.5 mg/2 mL suspension for nebulization 1 applicatio inhalation BID breathing 07/22/14 [History Last Taken 07/21/14] formoterol fumarate 20 mcg/2 mL solution for nebulization (Perforomist) 20 mcg inhalation BID breathing 07/22/14 [History Last Taken 07/21/14] levothyroxine 100 mcg tablet 100 mcg PO DAILY thyroid 07/22/14 [History Last Taken 07/22/14] omeprazole 20 mg capsule,delayed release 20 mg PO DAILY stomach 07/22/14 [History Last Taken 07/21/14] ipratropium bromide 0.02 % solution for inhalation 2.5 ml inhalation BID breathing 11/26/20 [History Last Taken Unknown] oxycodone-acetaminophen 5 mg-325 mg tablet 1 tab PO Q6H PRN PRN Pain 3 days #12 TABLETS 04/23/22 [Rx Last Taken Unknown] albuterol sulfate 2.5 mg/3 mL (0.083 %) solution for nebulization 2.5 mg inhalation Q4H PRN shortness of breath or wheezing 05/29/22 [History Last Taken Unknown] amlodipine 5 mg tablet 5 mg PO DAILY 05/29/22 [History Last Taken Unknown] cholecalciferol (vitamin D3) 25 mcg (1,000 unit) capsule 25 mcg PO DAILY 05/29/22 [History Last Taken Unknown] ipratropium 0.5 mg-albuterol 3 mg (2.5 mg base)/3 mL nebulization soln 3 ml inhalation Q6H PRN 05/29/22 [History Last Taken Unknown] magnesium 200 mg tablet See Rx Instructions PO DAILY 05/29/22 [History Last Taken Unknown] potassium gluconate 2.5 mEq tablet 2.5 meq PO DAILY 05/29/22 [History Last Taken Unknown] spironolactone 25 mg tablet 25 mg PO DAILY 05/29/22 [History Last Taken Unknown] tiotropium bromide 18 mcg capsule with inhalation device (Spiriva with HandiHaler) 1 cap inhalation DAILY 05/29/22 [History Last Taken Unknown] zafirlukast 20 mg tablet 20 mg PO BID 05/29/22 [History Last Taken Unknown] levofloxacin 500 mg tablet 500 mg PO DAILY #7 tabs 06/20/22 [Rx Last Taken Unknown] prednisone 10 mg tablet 10 mg PO DAILY #42 TABLETS 06/20/22 [Rx Last Taken Unknown] Allergy/AdvReac Type Severity Reaction Status Date / Time Environmental Allergies: Allergy Intermediate PT UNABLE Verified 08/16/22 21:19 Uncoded TO RESPOND-NEEDS F/U ampicillin Allergy stomach Verified 08/16/22 21:19 issues aspirin [ASA] Allergy Hives Verified 08/16/22 21:19 cephalexin monohydrate Allergy Hives Verified 08/16/22 21:19 [facility] Family History Mother Hypertension Father Rheumatoid arthritis Heart disease Surgical History History of appendectomy History of cholecystectomy Hx of appendectomy Hx of cholecystectomy Hx of hysterectomy Hx of tonsillectomy Social History household members: spouse Smoking Status: Former smoker how long ago did patient quit smoking: Quit 2008, prior 1-1.5 ppd since youth. alcohol intake: never substance use type: does not use ROS Constitutional Constitutional: Denies anorexia or fever(s) Eyes Eyes: Denies loss of central vision ENT HEENT: Denies dysphagia Cardiovascular Cardiovascular: Denies chest pain Respiratory/Chest Respiratory/Chest: Reports cough, shortness of breath at rest, shortness of breath with exertion and wheezing Gastrointestinal Gastrointestinal: Reports abdominal pain and constipation; Denies nausea or vomiting Genitourinary Genitourinary: Denies dysuria Musculoskeletal Musculoskeletal: Denies joint swelling Integumentary Integumentary: Denies rash Neurologic Neurologic: Denies focal weakness Psychiatric Psychiatric: Denies anxiety or depression Endocrine Endocrinology: Denies palpitations Hematologic/Lymphatic Hematologic/Lymphatic: Denies easy bleeding Physical Exam Const alert, oriented x3 and no apparent distress HEENT normocephalic and head/scalp atraumatic Neck supple Resp normal respiratory effort Resp Narrative: 2 L nasal cannula in place Effort and Inspection: able to speak in complete sentences Cardio regular rate GI soft to palpation; Negative for non-distended GI Narrative: Patient is a previous right lower quadrant incision from an open appendectomy. There is a bulge at this area. More difficult to define the hernia as it is still under care of external fascia per CT. Able to reduce the colon at bedside . Did not completely reduce the abdominal fat?confirmed with bedside ultrasound. The defect is right inferior to her previous appendectomy incision able to be felt after reducing the colon. Palpation: tender RLQ (Only with pushing to reduce the hernia) and hernia; Negative for guarding Extremity no clubbing, cyanosis or edema Skin no rashes or lesions noted Neuro CN's II-XII intact bilaterally Psych mental status grossly normal and affect normal Lab / Micro Data Result Diagrams: 08/16/22 22:09 08/16/22 22:09 Labs: Laboratory Results - last 24 hr 08/16/22 22:09: WBC 23.2 H, RBC 4.55, Hgb 12.5, Hct 39.3, MCV 86.4, MCH 27.5, MCHC 31.8 L, RDW Std Deviation 48.8 H, RDW Coeff of [place] 15.4 H, Plt Count 521 H, MPV 9.4, Immature Gran % (Auto) 0.900, Neut % (Auto) 95.5 H, Lymph % (Auto) 1.9 L, [place] % (Auto) 1.5, Eos % (Auto) 0.0, Baso % (Auto) 0.2, Absolute Neuts (auto) 22.1 H, Absolute Lymphs (auto) 0.44 L, Nucleated RBC % 0, Differential Comment SCANNED 08/16/22 22:09: Sodium 137, Potassium 4.2, Chloride 105, Carbon Dioxide 26.0, Anion Gap 6, BUN 19 H, Creatinine 1.02, Estim Creat Clear Calc 38.73, Est GFR (MDRD) Af Amer 69, Est GFR (MDRD) Non-Af 57 L, BUN/Creatinine Ratio 18.6, Glucose 141 H, Calcium 9.9 08/16/22 22:09: Urine Color Yellow, Urine Clarity Clear, Urine pH 6.0, Ur Specific [place] 1.010, Urine Protein 15 H, Urine Glucose (UA) Normal, Urine Ketones Negative, Urine Occult Blood 10 H, Urine Nitrite Negative, Urine Bilirubin Negative, Urine Urobilinogen Normal, Ur Leukocyte Esterase 500 H, Urine RBC 0-5 SEEN, Urine WBC 10-25 SEEN, Ur Squamous Epith Cells 0-5 SEEN, Urine Bacteria RARE, Urine Mucus 0 SEEN Radiology Impression Abdomen/Pelvis CT 08/16/22 21:49 IMPRESSION: Right lateral ventral hernia which may represent a spigelian hernia. A portion of the colon is herniated through the defect. There is no obstruction. No other acute abnormalities are identified. Electronically Signed: Gregorio Villafuerte MD at 23:09 EDT , Charges/Coding Visit Charges Office Visits / Consults: [id number] OP Consult L4
== END 2022-08-17 02:11 | disposition home or self-care (01) ==
PROVIDERS: Emergency Provider Emergency Medicine; PCP Family Medicine; Visit Provider Emergency Medicine
DX: K43.2 Incisional hernia without obstruction or gangrene (principal); J44.9 Chronic obstructive pulmonary disease, unspecified; I10 Essential (primary) hypertension; E03.9 Hypothyroidism, unspecified; Z90.49 Acquired absence of other specified parts of digestive tract; Z79.82 Long term (current) use of aspirin; Z79.899 Other long term (current) drug therapy; Z87.891 Personal history of nicotine dependence
CPT/HCPCS: 74177; 80048; 81001; 85025; 94640; 96361; 96374; 96376; 99283; J7040; Q9967; A4216; J2405

== ENCOUNTER 2022-12-22 19:12 | Emergency (ER) | payer OTHER, BC, MEDICARE, SELFPAY ==
[2022-12-22 19:14] VITALS: BP 168/93; PULSE 95; RESP 18; TEMP 35.7; O2SAT 98; BMI 29.2
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
== END 2022-12-22 23:42 | disposition home or self-care (01) ==
PROVIDERS: Emergency Provider Emergency Medicine; PCP Family Medicine; Visit Provider Emergency Medicine
DX: S16.1XXA Strain of muscle, fascia and tendon at neck level, initial encounter (principal); Z87.891 Personal history of nicotine dependence; V48.5XXA Car driver injured in noncollision transport accident in traffic accident, initial encounter
CPT/HCPCS: 72125; 99284

== ENCOUNTER 2023-01-02 13:07 | Outpatient (CLI) | payer BC, MEDICARE, SELFPAY ==
[2023-01-02 13:19] VITALS: BP 146/84; PULSE 81; RESP 18; TEMP 36.6; O2SAT 97
[2023-01-02] MEDS: 0.9% NaCl Peripheral Flush Adult/Peds IV (13:28)
[2023-01-02] MEDS: Zoledronic Acid 5 MG 100 ML 300 MG IV (13:33)
[2023-01-02 13:58] VITALS: BP 156/88; PULSE 76; RESP 16
== END 2023-01-02 13:08 | disposition home or self-care (01) ==
LOC: MEDOUTP 13:08
PROVIDERS: PCP Family Medicine; Referring Provider Internal Medicine Endocrinology, Diabetes & Metabolism; Visit Provider Internal Medicine Endocrinology, Diabetes & Metabolism
DX: M81.0 Age-related osteoporosis without current pathological fracture (principal)
CPT/HCPCS: 96365; A4216; J3489

== ENCOUNTER → 2023-01-16 | Outpatient (CLI) | payer MEDICARE, BC, SELFPAY ==
[2023-01-16 14:56] LABS: Vitamin D,25 Hydroxy 41.6 ng/mL
[2023-01-16 15:00] LABS: ALB/GLOB Ratio 0.7 RATIO (0.9-2.4); AST(SGOT) 19 U/L (15-37); Alanine Aminotransfer ALT/SGPT 24 U/L (13-56); Albumin, Serum 3.1 g/dL (3.2-5.0); Alkaline Phosphatase 128 U/L (45-117); Anion Gap 4 (5-15); BUN 12 mg/dL (7-18); BUN/Creat Ratio 14.8 RATIO (10-20); Calcium,Total 9.1 mg/dL (8.5-10.1); Chloride 104 mmol/L (98-107); Creatinine, Serum 0.81 mg/dL (0.55-1.02); EST Glomerular Filtration Rate 74 mL/min (>60); Est Glom Filt Rate - Afr Amer 89 mL/min (>60); Globulin 4.6 g/dL (2.2-4.2); Glucose 100 mg/dL (74-106); Protein, Total 7.7 g/dL (6.4-8.2); Sodium Level 137 mmol/L (136-145)
== END | disposition home or self-care (01) ==
LOC: LAB 13:30
PROVIDERS: PCP Family Medicine; Referring Provider Internal Medicine Endocrinology, Diabetes & Metabolism; Visit Provider Internal Medicine Endocrinology, Diabetes & Metabolism
DX: M81.0 Age-related osteoporosis without current pathological fracture (principal); E55.9 Vitamin D deficiency, unspecified
CPT/HCPCS: 36415; 80053; 82306

== ENCOUNTER 2023-04-12 12:31 | Emergency (ER) | payer MEDICARE, BC, SELFPAY ==
[2023-04-12 12:31] VITALS: BP 188/87; PULSE 96; RESP 18; TEMP 36.4; O2SAT 98; BMI 31.3
--- NOTE | 2023-04-12 12:57 | EKG12_ITS ---
Test Reason : DYSPNEA Blood Pressure : / mmHG Vent. Rate : 083 BPM Atrial Rate : 083 BPM P-R Int : 150 ms QRS Dur : 074 ms QT Int : 398 ms P-R-T Axes : 070 036 064 degrees QTc Int : 467 ms Normal sinus rhythm Normal ECG Confirmed by VERITO BARAHONA, AURELIO ([id number]), film editor supervisor MARICRUZ JAMIL ([id number]) on 04/13/2023 1:38:54 PM Referred By: CHUCK Confirmed By:AURELIO SELLERS MD
--- NOTE | 2023-04-12 12:59 | ED.VIS.DYS ---
HPI History of Present Illness Chief Complaint: Shortness of Breath Informant: patient Onset/Context/Timing Onset: Weeks Context: gradual Timing: Continuous Quality: Positive for Wheezing Current Severity: Mild Maximum Severity: Mild Worsened by: Exertion and Coughing Relieved by: Oxygen Associated Symptoms cough, fever and green sputum Chest Pain: Positive for None Narrative Narrative: -year-old female history of COPD on 2 L of oxygen at home. Complains shortness of breath with URI symptoms for the last 3 to 4 weeks. She initially was on doxycycline then Levaquin and she is also been on prednisone and currently is on a tapered course. She had a negative chest x-ray. States that she still wheezing and has a productive cough with yellow phlegm. With a low-grade fever. No history of DVT or PE. No hemoptysis. No chest pain. No leg pain or swelling. No recent travel, surgery or immobilization. No recent hospitalization. PE Risk Factors: Negative for Cancer, OCP + Smoking + > 35, Prior DVT or PE, Recent immobilization, Recent surgery or Recent travel Prior similar symptoms: Yes Recent Illness/Hospitalization: No [facility] Medical History Acute and chronic respiratory failure with hypoxia Anemia COPD (chronic obstructive pulmonary disease) Former smoker GERD (gastroesophageal reflux disease) HTN (hypertension) Hypothyroid Immune deficiency disorder Leukocytosis Obesity (BMI 30.0-34.9) On home oxygen therapy Osteoporosis RSV infection Thrombocytosis Thrush Home Medications albuterol sulfate 90 mcg/actuation aerosol inhaler (ProAir HFA) 2 puff inhalation Q4H PRN PRN Sob &/Or Wheezing 07/22/14 [History Last Taken Unknown] budesonide 0.5 mg/2 mL suspension for nebulization 1 applicatio inhalation BID breathing 07/22/14 [History Last Taken 07/21/14] levothyroxine 100 mcg tablet 100 mcg PO DAILY thyroid 07/22/14 [History Last Taken 07/22/14] omeprazole 20 mg capsule,delayed release 20 mg PO DAILY stomach 07/22/14 [History Last Taken 07/21/14] albuterol sulfate 2.5 mg/3 mL (0.083 %) solution for nebulization 2.5 mg inhalation Q4H PRN shortness of breath or wheezing 05/29/22 [History Last Taken Unknown] amlodipine 5 mg tablet 5 mg PO DAILY 05/29/22 [History Last Taken Unknown] cholecalciferol (vitamin D3) 25 mcg (1,000 unit) capsule 25 mcg PO DAILY 05/29/22 [History Last Taken Unknown] ipratropium 0.5 mg-albuterol 3 mg (2.5 mg base)/3 mL nebulization soln 3 ml inhalation Q6H PRN shortness of breath or wheezing 05/29/22 [History Last Taken Unknown] potassium gluconate 2.5 mEq tablet 2.5 meq PO DAILY 05/29/22 [History Last Taken Unknown] tiotropium bromide 18 mcg capsule with inhalation device (Spiriva with HandiHaler) 1 cap inhalation DAILY 05/29/22 [History Last Taken Unknown] zafirlukast 20 mg tablet 20 mg PO BID 05/29/22 [History Last Taken Unknown] formoterol fumarate 20 mcg/2 mL solution for nebulization (Perforomist) 2 ml inhalation BID 10/30/22 [History Last Taken Unknown] zoledronic acid 5 mg/100 mL in mannitol 5 %-water intravenous piggybck 5 ea .Route ONCE #100 mL 10/30/22 [Rx Last Taken Unknown] amoxicillin 875 mg-potassium clavulanate 125 mg tablet 1 tab PO Q12H 01/02/23 [History Last Taken Unknown] prednisone 10 mg tablet 5 mg PO DAILY 01/02/23 [History Last Taken Unknown] prednisone 20 mg tablet 40 mg (2 x 20 mg) PO DAILY #14 tabs 04/12/23 [Rx Last Taken Unknown] Allergy/AdvReac Type Severity Reaction Status Date / Time Environmental Allergies: Allergy Intermediate Hives Verified 04/12/23 12:33 Uncoded Sulfa (Sulfonamide Allergy Mild Hives Verified 04/12/23 12:33 Antibiotics) ampicillin Allergy stomach Verified 04/12/23 12:33 issues aspirin [ASA] Allergy Hives Verified 04/12/23 12:33 cephalexin monohydrate Allergy Hives Verified 04/12/23 12:33 [From Keflex] Family History Mother Hypertension Father Rheumatoid arthritis Heart disease Surgical History History of appendectomy History of cholecystectomy Hx of hysterectomy Hx of tonsillectomy Social History household members: spouse Smoking Status: Former smoker how long ago did patient quit smoking: Quit 2009, prior 1-1.5 ppd since youth. alcohol intake: never substance use type: does not use ROS ROS ED ROS Narrative Cough. Wheezing. Shortness of breath. Review of Systems ROS Unobtainable: Denies due to encephalopathy Constitutional Constitutional ED: Reports fever(s); Denies chills Eyes Eyes: Denies blurry vision ENT ENT ED: Denies ear pain Cardiovascular Cardiovascular: Denies chest pain or palpitations Respiratory/Chest Respiratory/Chest: Reports cough and dyspnea Gastrointestinal Gastrointestinal: Denies abdominal pain Genitourinary Genitourinary ED: Denies dysuria or hematuria Musculoskeletal Musculoskeletal: Denies arthralgias or back pain Integumentary Denies abscess Neurologic Neurologic: Denies headache(s) Psychiatric Psychiatric: Denies anxiety Endocrine Endocrinology: Denies cold intolerance Hematologic/Lymphatic Hematologic/Lymphatic: Denies easy bleeding or easy bruising Allergic/Immunologic Allergic/Immunologic ED: Denies mouth swelling, tongue swelling or urticaria EXAM Physical Exam Narrative Exam Narrative: 72-year-old male vital signs are stable afebrile. H EENT exam unremarkable. Neck nontender no JVD. Lungs scattered expiratory wheezes. No rales or rhonchi. Equal symmetrical. Heart regular rhythm rate in 90s no murmur. Chest wall and ribs nontender. Abdomen soft nontender. Moving all 4 extremities. Calves are nontender without edema or cords. She is awake and alert. Answering questions following commands. Const Vital Signs: 04/12/23 12:31 04/12/23 13:01 04/12/23 13:19 Temperature 97.5 F L Temperature Source Temporal Pulse Rate 96 Respiratory Rate 18 Respiratory Effort Short of Breath Respiratory Depth Normal Respiratory Pattern Tachypnea Blood Pressure 188/87 H Blood Pressure Mean 120 Pulse Ox 98 98 Oxygen Delivery Method Nasal Cannula Nasal Cannula Nasal Cannula Oxygen Flow Rate (L/min) 2 2 2 04/12/23 13:28 04/12/23 15:04 Temperature Temperature Source Pulse Rate 96 Respiratory Rate 22 H Respiratory Effort Respiratory Depth Respiratory Pattern Normal Blood Pressure Blood Pressure Mean Pulse Ox 99 Oxygen Delivery Method Nasal Cannula Oxygen Flow Rate (L/min) Positive well nourished and well developed; Negative for obese, cachectic, contractures or unkempt General Appearance ED: well developed and NAD; Negative for unkempt, cachectic, contractures or pallor Nutritional Appearance: Negative for cachectic or obese HEENT Reports moist mucous membranes; Denies dry mucous membranes Negative for trauma or tenderness Mouth ED: No dry mucous membranes Mouth: No dry mucous membranes Eyes PERRL and EOMs intact bilaterally General Eye ED: Negative for pale conjunctiva or scleral icterus Neck no lymphadenopathy, supple, no meningeal signs and no JVD General: Negative for tenderness Lymph Lymphatic: Negative for other Chest Wall Chest: Negative for other Resp normal respiratory effort and No clear to auscultation bilaterally Auscultation: wheezes Cardio regular rate, regular rhythm, S1 normal heart sound, S2 normal heart sound and no murmurs Rate: Negative for bradycardia or tachycardic Rhythm: Negative for abnormal rhythm GI non-tender, non-distended and no masses Inspection: Negative for other Auscultation: normoactive bowel sounds Palpation: soft; Negative for tender, guarding or rebound tenderness present Back/Spine no CVA tenderness and normal to inspection General Back: Negative for CVA tenderness or tenderness Extremity normal to inspection General Extremety ED: Negative for edema or tenderness General Extremity: Negative for edema Neuro CN's II-XII intact bilaterally Sensorium / Orientation: alert, oriented to person, oriented to place and oriented to time; Negative for orientation impaired, confused, lethargic or stuporous Speech: speech normal Motor Exam: strength 5/5 throughout Psych mental status grossly normal Appearance: Negative for unkempt Attitude: No agitated Mood & Affect: Negative for depressed, anxious or tearful Thought Process: normal thought process Skin no wounds and skin turgor normal General Skin Exam: Negative for jaundice or pallor Lesions: no lesions Rashes: no rashes Trauma: Negative for abrasion or laceration MDM MDM MDM Narrative Medical decision making narrative: 72-year-old female COPD exacerbation rule out viral syndrome versus pneumonia versus other. Chest x-ray and labs pending. Treated with prednisone orally and aerosol treatments. Repeat exam at 3:15 PM patient doing well. Still has some scattered wheezes. She and I went over all of her test results. She has 1 more day of the antibiotic explained to her she is already been on 2 different antibiotics there is no signs of pneumonia I do not think she needs any further antibiotics. She will be written for another weeks worth of prednisone 40 mg a day. She follows up with her construction specialist on Sunday the day after Ben. She is comfortable being discharged home. History & Record Review Discussion w/independent historian: Family Additional record(s) reviewed:: Prior inpatient record, Prior outpatient record, Prior ED visit and Prior labs Lab Data Attestation: I reviewed the patient's lab results. Lab results narrative: CBC shows white count 13.4 patient has recently been on prednisone. H&H of 12 and 38. Platelets 379. Electrolytes show potassium 3.4. Gap is 7. Normal BUN of 16 creatinine 0.9. Glucose 114. Chest x-ray negative. COVID, flu and RSV swabs were all negative. Labs: Laboratory Results - last 24 hr 04/12/23 13:17 WBC 13.4 H RBC 4.33 Hgb 12.3 Hct 38.4 MCV 88.7 MCH 28.4 MCHC 32.0 RDW Std Deviation 45.0 H RDW Coeff of [place] 13.8 Plt Count 379 MPV 9.1 Immature Gran % (Auto) 0.800 Neut % (Auto) 74.1 H Lymph % (Auto) 15.4 L Ritchie % (Auto) 7.7 Eos % (Auto) 1.8 Baso % (Auto) 0.2 Absolute Neuts (auto) 10.0 H Absolute Lymphs (auto) 2.06 Nucleated RBC % 0 Sodium 139 Potassium 3.4 L Chloride 104 Carbon Dioxide 28.0 Anion Gap 7 BUN 16 Creatinine 0.92 Estim Creat Clear Calc 40.87 Est GFR (MDRD) Af Amer 77 Est GFR (MDRD) Non-Af 64 BUN/Creatinine Ratio 17.3 Glucose 114 H Calcium 8.9 Radiography Chest X-Ray - ED: 2 View, Read by ED Physician, Read by Radiologist, Heart, Lungs, Mediastinum, Bony Structures, No Acute Disease and Chronic Changes Diagnostic Testing: Clinical Impression(s) from Imaging Studies Chest X-Ray 04/12/23 14:01 IMPRESSION: Hyperinflation. Stable examination. Electronically Signed: Joseph Curran MD at 14:34 EST , Chest x-ray, 2 views, AP and lateral, interpreted both by myself and radiologist shows chronic changes no acute process. No infiltrate. No pneumonia. No effusions. Normal cardiac silhouette. Rhythm Strip Rhythm Strip: Sinus Rhythm Rate: 83 Ectopy: None EKG Initial EKG: Attestation: I personally reviewed and interpreted this EKG as follows: Interpretation: Sinus Rhythm and No Acute Injury Pattern Comments: Normal sinus rhythm rate 83 no acute signs of IN nor ischemia nor dysrhythmia. Discharge Plan Triage Chief Complaint: Shortness of Breath ED Provider: Hayder Bob Dx/Rx/DC Orders Clinical Impression: Viral URI, Acute exacerbation of chronic obstructive pulmonary disease Instructions: ED COPD Flare Prescriptions: New prednisone 20 mg tablet 40 mg PO DAILY Qty: 14 0RF No Action formoterol fumarate [Perforomist] 20 mcg/2 mL solution for nebulization 2 ml inhalation BID zoledronic zoqr-szdqstln-heqsu 5 mg/100 mL piggyback 5 ea .Route ONCE Qty: 100 0RF Rx Instructions: onceinfuse over 20 minutes amlodipine 5 mg tablet 5 mg PO DAILY albuterol sulfate 2.5 mg /3 mL (0.083 %) solution for nebulization 2.5 mg inhalation Q4H PRN (Reason: shortness of breath or wheezing) cholecalciferol (vitamin D3) 25 mcg (1,000 unit) capsule 25 mcg PO DAILY ipratropium-albuterol 0.5 mg-3 mg(2.5 mg base)/3 mL solution for nebulization 3 ml inhalation Q6H PRN (Reason: shortness of breath or wheezing) Hold Instructions: Order Completed potassium gluconate 2.5 mEq tablet 2.5 meq PO DAILY Spiriva with HandiHaler 18 mcg capsule, w/inhalation device 1 cap inhalation DAILY Rx Instructions: puncture 1 cap using device; one dose = 2 inhalations zafirlukast 20 mg tablet 20 mg PO BID Rx Instructions: must be taken on empty stomach, at least 1 hr before or 2 hrs after a meal/food levothyroxine 100 MCG tablet 100 mcg PO DAILY Patient Comments: thyroid omeprazole 20 MG capsule 20 mg PO DAILY Patient Comments: gerd budesonide 0.5 MG/2 ML suspension for nebulization 1 applicatio inhalation BID Patient Comments: copd albuterol sulfate [ProAir HFA] 1 PUFF inhaler 2 puff inhalation Q4H PRN PRN (Reason: Sob &/Or Wheezing) Patient Comments: copd prednisone 10 mg tablet 5 mg PO DAILY Patient Comments: PLEASE SEE ATTACHED FOR DETAILED DIRECTIONS amoxicillin-pot clavulanate 875-125 mg tablet 1 tab PO Q12H Patient Comments: TAKE 1 TABLET BY MOUTH EVERY 12 HOURS Primary Care Provider: Prosper Roman Referrals: Prosper Roman DO [Primary Care Provider] - As Needed Activity Restrictions/Additional Instructions: No signs of pneumonia. Exacerbation of your COPD. Continue prednisone for 1 week. Keep your scheduled appointment with your construction specialist next Sunday. Make sure they know that you have been on antibiotics and steroids recently. They may have to extend the steroid prescription or taper the dose. Disposition Disposition: Home, Self Care
[2023-04-12 13:19] VITALS: O2SAT 98
[2023-04-12] MEDS: predniSONE 20 MG Tablet 40 MG PO (13:20)
[2023-04-12] MEDS: Ipratropium/Albuterol Sulfate 3 ML AMPUL.NEB INHALATION (13:26)
[2023-04-12] MEDS: Albuterol 2.5 MG/3 ML VIAL.NEB. INHALATION (13:26)
[2023-04-12 13:27] LABS: Absolute Lymphocyte Count 2.06 X10^3/uL (0.83-4.51); Basophil# 0.03 X10^3/uL; Basophil% 0.2 % (0-1); Eosinophil# 0.24 X10^3/uL; Eosinophils% 1.8 % (0-5); Hematocrit 38.4 % (37-47); Hemoglobin 12.3 g/dL (12.0-15.0); Lymphocyte # 2.06 X10^3/ul (0.83-4.51); Lymphocyte % 15.4 % (19-41); Mean Corpuscular Hgb 28.4 pg (27.0-32.0); Mean Corpuscular Volume 88.7 fL (81-99); Mean Platelet Vol. 9.1 fl (6.2-12.0); Monocyte# 1.03 X10^3/uL; Monocyte% 7.7 % (0-10); NRBC Flagged by Analyzer 0 % (0-5); Neutrophil # 9.95 X10^3/uL (2.7-7.7); Neutrophil % 74.1 % (47-70); Platelet Count 379 K/mm3 (150-450); RBC Distribution Width CV 13.8 % (11.6-14.6); Red Blood Count 4.33 M/mm3 (4.2-5.4); White Blood Count 13.4 K/mm3 (4.4-11.0)
[2023-04-12 13:28] VITALS: PULSE 96; RESP 22
[2023-04-12 13:38] LABS: Anion Gap 7 (5-15); BUN 16 mg/dL (7-18); BUN/Creat Ratio 17.3 RATIO (10-20); Calcium,Total 8.9 mg/dL (8.5-10.1); Chloride 104 mmol/L (98-107); Creatinine, Serum 0.92 mg/dL (0.55-1.02); EST Glomerular Filtration Rate 64 mL/min (>60); Est Glom Filt Rate - Afr Amer 77 mL/min (>60); Estimated Creatinine Clearance 40.87 ml/min; Glucose 114 mg/dL (74-106); Potassium 3.4 mmol/L (3.5-5.1); Sodium Level 139 mmol/L (136-145)
--- NOTE | 2023-04-12 14:01 | RAD_ITS ---
STUDY: X-RAY CHEST REASON FOR EXAM: Female, 72 years old. Cough TECHNIQUE: PA and lateral views of the chest. COMPARISON: Comparison is made with prior study dated June 20, 2022. FINDINGS: EKG electrodes are seen. Hyperinflation. Stable increased linear markings at the lung bases suggestive of scarring. Stable increased markings in the right upper lobe. There is no demonstrated pleural abnormality. Normal size heart. Normal mediastinum and paty. Normal visualized pulmonary arteries. There is atherosclerotic calcification of the aortic arch with tortuosity. There are diffuse degenerative changes of the visualized thoracic spine. There is degenerative osteoarthritis of the bilateral shoulders. There is no demonstrated abnormality of the visualized soft tissue structures of the upper abdomen. RAD/Chest PA and Lateral IMPRESSION: Hyperinflation. Stable examination. Electronically Signed: Joseph Curran MD at 14:34 EST ,
[2023-04-12 15:04] VITALS: O2SAT 99
== END 2023-04-12 15:40 | disposition home or self-care (01) ==
PROVIDERS: Emergency Provider Emergency Medicine; PCP Family Medicine; Visit Provider Emergency Medicine
DX: J06.9 Acute upper respiratory infection, unspecified (principal); J44.1 Chronic obstructive pulmonary disease with (acute) exacerbation; I10 Essential (primary) hypertension; E66.9 Obesity, unspecified; Z68.31 Body mass index [BMI] 31.0-31.9, adult; Z99.81 Dependence on supplemental oxygen; Z79.899 Other long term (current) drug therapy; Z87.891 Personal history of nicotine dependence
CPT/HCPCS: 71046; 80048; 85025; 87428; 87807; 93005; 94640; 99284

== ENCOUNTER 2023-05-13 07:16 | Emergency (ER) | payer BC, MEDICARE, SELFPAY ==
[2023-05-13 07:16] VITALS: BP 160/82; PULSE 88; RESP 14; TEMP 36.6; O2SAT 97; BMI 29.3
--- NOTE | 2023-05-13 07:31 | RAD_ITS ---
STUDY: X-RAY CHEST REASON FOR EXAM: Female, 73 years old. cough, wheezing TECHNIQUE: Single AP portable view of the chest. COMPARISON: April 12, 2023 FINDINGS: 1. No new infiltrates or areas of consolidation are present 2. Redemonstration of COPD, emphysema, and fibrotic opacities 3. No pleural effusion is seen 4. Normal heart size 5. Stable mediastinum and osseous structures There is no demonstrated abnormality of the visualized soft tissue structures of the upper abdomen. RAD/Chest 1 View (Portable) IMPRESSION: COPD/emphysema Electronically Signed: Sidney Yin MD at 8:57 EST ,
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
[2023-05-13 07:58] VITALS: BP 122/79; BP 127/86; BP 140/81; PULSE 88; PULSE 92; PULSE 98
[2023-05-13 08:14] LABS: Absolute Lymphocyte Count 1.36 X10^3/uL (0.83-4.51); Absolute Neutrophil Count 10.8 X10^3/uL (2.0-7.7); Basophil# 0.08 X10^3/uL; Basophil% 0.6 % (0-1); Eosinophil# 0.17 X10^3/uL; Eosinophils% 1.3 % (0-5); Hematocrit 36.2 % (37-47); Hemoglobin 11.5 g/dL (12.0-15.0); Lymphocyte # 1.36 X10^3/ul (0.83-4.51); Mean Corp Hgb Conc 31.8 g/dL (32-36); Mean Corpuscular Hgb 27.9 pg (27.0-32.0); Mean Corpuscular Volume 87.9 fL (81-99); Mean Platelet Vol. 10.2 fl (6.2-12.0); Monocyte# 1.12 X10^3/uL; Monocyte% 8.2 % (0-10); NRBC Flagged by Analyzer 0 % (0-5); Neutrophil # 10.79 X10^3/uL (2.7-7.7); Neutrophil % 79.4 % (47-70); Platelet Count 313 K/mm3 (150-450); RBC Distribution Width CV 13.8 % (11.6-14.6); RBC Distribution Width SD 44.4 fl (35.1-43.9); Red Blood Count 4.12 M/mm3 (4.2-5.4); White Blood Count 13.6 K/mm3 (4.4-11.0)
[2023-05-13] MEDS: 0.9% Normal Saline (1000mL) 1,000 ML 150 ML IV (08:14)
--- OUTSIDE RECORDS SUMMARY | 2023-05-13 08:17 | XMS RPT_ITS | CCD ---
Author Name Unknown Address [address] [place] [address] Organization [facility] Care Team Providers Care Photographer Name Role Phone Bay Zepeda Primary Care Provider [phone] PROVIDER, UNKNOWN Referring Unavailable Tay Chavez Attending Unavailable Bay Zepeda Primary Care Unavailable Bay Zepeda Primary Care Unavailable PROVIDER, UNKNOWN Referring Unavailable Ty Chavezekkatie Attending Unavailable PROVIDER, UNKNOWN Referring Unavailable Bay Zepeda Primary Care Unavailable Tay Chavez Attending Unavailable Bay Zepeda Primary Care Unavailable Bay Zepeda Attending Unavailable PROVIDER, UNKNOWN Referring Unavailable Bay Zepeda Primary Care Unavailable PROVIDER, UNKNOWN Referring Unavailable Nas Lozada Attending Unavailable Marni Archuleta Attending Unavailable PROVIDER, UNKNOWN Referring Unavailable Bay Zepeda Primary Care Unavailable Bay Zepeda Primary Care Unavailable PROVIDER, UNKNOWN Referring Unavailable Nas Lozada Attending Unavailable Jessie VILCHIS Prosper F Primary Care Provider Bay Zepeda DO Primary Care Provider Jessie VILCHIS Prosper F Primary Care Provider Dariaa , Prosper F Primary Care Provider KATHY, IFTEKHAR Attending Unavailable TEVINLLA, PROSPER Primary Care Unavailable JAZMIN MOY Attending Unavailable DARIAA, PROSPER Primary Care Unavailable JAZMIN MOY Attending Unavailable FRACASSBAY Leal Primary Care Unavailable JAZMIN MOY Attending Unavailable FALMARJAN GAO Attending Unavailable PETRILLA, PROSPER Primary Care Unavailable PETRILLA, PROSPER Attending Unavailable PETRILLA, PROSPER Primary Care Unavailable KATHY, IFTEKHAR Attending Unavailable TEVINLLA, PROSPER Primary Care Unavailable JAZMIN MOY Referring Unavailable PETRILLA, PROSPER Primary Care Unavailable JAZMIN MOY Attending Unavailable JAZMIN MOY Referring [facility] Unavailable TAY CHAVEZ Attending Unavailable [facility] Primary Care Unavailable JAZMIN MOY Referring Unavailable VENKATEBONYBAY PARSON Primary Care Unavailable JAZMIN MOY Attending Unavailable JAZMIN MOY Attending [facility] Unavailable JAZMIN MOY Attending [facility] Unavailable JAZMIN MOY Attending Unavailable [facility] Primary Care Unavailable JAZMIN MOY Attending Unavailable [facility] [place] Primary Care Unavailable INGA WASHINGTON Attending Unavailable [facility] [place] Primary Care Unavailable JOYCE BROWN Attending Unavailable [facility] Primary Care Unavailable Allergies Allergy Classification Reported Allergen(s) Allergy Type Date of Onset Reaction(s) Facility Aluminum aspirin (3 sources) Aluminum aspirin Drug Allergy 5 Hives [facility] Angiotensin Converting Enzyme (DEISY) Inhibitors (3 sources) Lisinopril Drug Allergy 6 [facility] Cephalosporins (antibiotic) (3 sources) Cephalexin Drug Allergy 5 Hives [facility] Corticosteroids (3 sources) prednisoLONE Drug Allergy 5 Other (See Comments) [facility] Macrolides (antibiotic) (3 sources) Erythromycin Drug Allergy 5 [facility] Opioid Agonists (3 sources) Codeine Drug Allergy 5 [facility] Penicillins (antibiotic) (6 sources) Ampicillin Drug Allergy 5 Other (See Comments) [facility] Sulfonamides (antibiotic) (3 sources) Sulfonamides (Antibiotic) Drug Allergy 5 [facility] (20 sources) Aluminum aspirin [facility] [place] [place] ([facility]) Ampicillin Drug Allergy 5 Other (See Comments) [place] (20 sources) Cephalexin Drug Allergy 8 Hives, Rash [place] (20 sources) Codeine Drug Allergy 8 [place] ([place] sources) Erythromycin Drug Allergy 8 [place] (19 sources) Lisinopril Drug Allergy 6 Shortness Of Breath [place] (19 sources) Penicillins Propensity to adverse reactions to drug 5 [place] (20 sources) prednisoLONE Drug Allergy 5 Other (See Comments) [place] (19 sources) Sulfonamides (Antibiotic) Propensity to adverse reactions to drug 5 [place] (20 sources) Lisinopril Propensity to adverse reactions 6 Shortness of breath [facility] (20 sources) Penicillins Drug Intolerance [address] [facility] (20 sources) Sulfonamides (Antibiotic) Drug Intolerance [address] [facility] (20 sources) Other Allergy to substance [address] [facility] Medications Current Medications Medication Drug Class(es) Dates Sig (Normalized) Sig (Original) albuterol 0.83 mg/ml inhalation solution (20 sources) beta2-Adrenergic Agonist Start: 03-28-2023 albuterol (2.5 MG/3ML) 0.083% nebulizer solution 2.5 mg Completed/Discontinued Medications Medication Drug Class(es) Dates Sig (Normalized) Sig (Original) amoxicillin 875 mg / clavulanate 125 mg oral tablet (6 sources) Penicillin-class Antibacterial Start: 07-24-2022 End: 10-10-2022 take 1 tablet by mouth every twelve hours amoxicillin-clavul anate (Augmentin) 875-125 MG tablet Take 1 tablet by mouth in the morning and 1 tablet in the evening. 0 07/24/2022 10/10/2022 Discontinued (Therapy completed) ferrous sulfate 325 mg oral tablet (10 sources) End: 04-17-2023 take 1 tablet by mouth once daily at breakfast ferrous sulfate 325 (65 Fe) MG tablet Take 325 mg by mouth daily (with breakfast). 0 04/17/2023 Discontinued (Therapy completed) fluconazole 150 mg oral tablet (10 sources) Azole Antifungal Start: 03-23-2023 End: 04-17-2023 take 1 tablet by mouth once daily fluconazole (Diflucan) 150 MG tablet Take 1 tablet (150 mg) by mouth daily. 7 tablet 0 03/23/2023 04/17/2023 Discontinued (Therapy completed) Iopamidol (1 source) Radiographic Contrast Agent Start: 02-14-2019 End: 02-14-2019 iopamidol (ISOVUE-370) 76 % injection 75 mL iopamidol (ISOVUE-370) 76 % injection 75 mL (2 sources) Start: 12-21-2020 End: 12-21-2020 iopamidol (ISOVUE-370) 76 % injection 75 mL Problems Active Problems Problem Classification Problem Date Documented Da te Episodic/Chronic Asthma (1 source) Moderate asthma; Translations: [Moderate asthma, unspecified whether complicated, unspecified whether persistent] Chronic Chronic obstructive pulmonary disease and bronchiectasis (20 sources) Chronic obstructive lung disease; Translations: [Acute exacerbation of chronic obstructive airways disease] Onset: 1 Resolved: 2 08-11-2015 Chronic Chronic obstructive pulmonary disease and bronchiectasis (1 source) Bronchitis; Translations: [Bronchitis] Episodic Esophageal disorders (3 sources) Gastroesophageal reflux disease without esophagitis; Translations: [Gastro-esophageal reflux disease without esophagitis] Onset: 3 03-23-2023 Chronic Essential hypertension (20 sources) Hypertensive disorder; Translations: [Essential (primary) hypertension] Onset: 6 08-11-2015 Chronic Fluid and electrolyte disorders (1 source) Hypokalemia; Translations: [Hypokalemia] Episodic Genitourinary symptoms and ill-defined conditions (3 sources) Incontinence; Translations: [Unspecified urinary incontinence] Onset: 4 04-26-2023 Chronic Immunity disorders (20 sources) Immunoglobulin deficiency; 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, unspecified] Onset: 6 08-11-2015 Chronic Inflammation; infection of eye (except that caused by tuberculosis or sexually transmitteddisease) (1 source) Acute infectious conjunctivitis; Translations: [Unspecified acute conjunctivitis, right eye] 04-26-2023 Episodic Nonmalignant breast conditions (1 source) Lump in lower outer quadrant of left breast; Translations: [Unspecified lump in the left breast, lower outer quadrant] Episodic Nonmalignant breast conditions (2 sources) Lump in upper inner quadrant of right breast; Translations: [Cyst of right breast] Osteoarthritis (20 sources) Osteoarthritis of left knee joint; Translations: [Unilateral primary osteoarthritis, left knee] Onset: 9 08-09-2018 Chronic Osteoarthritis (11 sources) Osteoarthritis of left knee joint; Translations: [Primary osteoarthritis of left knee] Onset: 9 08-09-2018 Other female genital disorders (1 source) Vaginal discharge; Translations: [Other specified noninflammatory disorders of vagina] 04-26-2023 Episodic Other female genital disorders (2 sources) Other specified noninflammatory disorders of vagina; Translations: [Other specified noninflammatory disorders of vagina] Onset: 4 Episodic Other fractures (1 source) Closed fracture of one rib; Translations: [Fracture of one rib, right side, subsequent encounter for fracture with routine healing] Episodic Other gastrointestinal disorders (20 sources) Irritable bowel syndrome; Translations: [Irritable bowel syndrome without diarrhea] Onset: 6 08-11-2015 Chronic Other gastrointestinal disorders (1 source) Diarrhea; Translations: [Diarrhea, unspecified] 09-26-2022 Episodic Other lower respiratory disease (1 source) Hemoptysis; Translations: [Cough with hemoptysis] Episodic Other lower respiratory disease (1 source) Lower respiratory tract infection; Translations: [Unspecified acute lower respiratory infection] Episodic Other non-traumatic joint disorders (2 sources) Pain in right hip joint; Translations: [Right hip pain] Other screening for suspected conditions (not mental disorders or infectious disease) (7 sources) Patient encounter status; Translations: [Encounter for screening mammogram for malignant neoplasm of breast] Onset: 2 Episodic Pneumonia (except that caused by tuberculosis or sexually transmitted disease) (1 source) Infective pneumonia; Translations: [Pneumonia, unspecified organism] Episodic Prolapse of female genital organs (3 sources) Cystocele; Translations: [Cystocele, unspecified] Onset: 4 04-26-2023 Chronic Residual codes; unclassified (1 source) Menopause present; Translations: [Asymptomatic menopausal state] Episodic Respiratory failure; insufficiency; arrest (adult) (20 sources) Chronic hypoxemic respiratory failure; Translations: [Chronic respiratory failure with hypoxia] Onset: 1 Resolved: 2 08-02-2020 Chronic Screening and history of mental health and substance abuse codes (1 source) Ex-tobacco user; Translations: [Tobacco use disorder, severe, in sustained remission] Onset: 1 08-02-2020 Episodic Substance-related disorders (20 sources) Ex-tobacco user; Translations: [Nicotine dependence, unspecified, in remission] Onset: 1 Resolved: 2 08-02-2020 Chronic Thyroid disorders (20 sources) Hypothyroidism; Translations: [Hypothyroidism, unspecified] Onset: 6 08-11-2015 Chronic Unclassified (11 sources) Acute tear of meniscus of left knee; Translations: [Acute meniscal tear of left knee] Onset: 9 08-09-2018 Unclassified (1 source) Sprain of left ankle; Translations: [Sprain of left ankle, unspecified ligament, initial encounter] Unclassified (1 source) Contusion of right shoulder; Translations: [Contusion of right shoulder, initial encounter] Past or Other Problems Problem Classification Problem Date Documented Da te Episodic/Chronic Abdominal hernia (20 sources) Incisional hernia; Translations: [Incisional hernia without obstruction or gangrene] Onset: 9 Resolved: 2 02-26-2019 Episodic Coagulation and hemorrhagic disorders (20 sources) Idiopathic thrombocytopenic purpura; 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] Resolved: 9 10-16-2018 Chronic Joint disorders and dislocations; trauma-related (8 sources) Acute tear of meniscus of left knee; Translations: [Unspecified tear of unspecified meniscus, current injury, left knee, initial encounter] Onset: 9 08-09-2018 Episodic Other fractures (2 sources) Fracture of one rib, right side, subsequent encounter for fracture with routine healing; Translations: [Fracture of one rib, right side, subsequent encounter for fracture with routine healing] Onset: 3 Episodic Other gastrointestinal disorders (2 sources) Diarrhea, unspecified; Translations: [Diarrhea, unspecified] Onset: 3 Episodic Other infections; including parasitic (20 sources) History of herpes zoster; Translations: [Personal history of other infectious and parasitic diseases] Onset: 1 02-03-2021 Episodic Other lower respiratory disease (12 sources) Dyspnea; Translations: [Shortness of breath] Onset: 1 Resolved: 2 08-02-2020 Episodic Other lower respiratory disease (20 sources) Nodule of lung; Translations: [Solitary pulmonary nodule] Onset: 1 Episodic Other lower respiratory disease (4 sources) Solitary nodule of lung; Translations: [Solitary pulmonary nodule] Onset: 2 Episodic Other lower respiratory disease (2 sources) Solitary pulmonary nodule; Translations: [Solitary pulmonary nodule] Onset: 2 Episodic Other lower respiratory disease (2 sources) Unspecified acute lower respiratory infection; Translations: [Unspecified acute lower respiratory infection] Onset: 1 Episodic Viral infection (20 sources) Postherpetic neuralgia; Translations: [Other postherpetic nervous system involvement] Onset: 1 02-03-2021 Episodic Results Test Name Value Interpretation Reference Range Facil ity Vital Signs Date Time Vital Sign Value Performing Clinician Faci lity 04-26-2023 08:29-0500 Body height 154.9 cm Inga Washington MD Work Phone: [employer] 04-26-2023 08:29-0500 Body mass index (BMI) [Ratio] 29.48 kg/m2 Inga Washington MD Work Phone: [employer] 04-26-2023 08:29-0500 Body temperature 98.01 [degF] Inga Washington MD Work Phone: [employer] 04-26-2023 08:29-0500 Body weight 70.76 kg Inga Washington MD Work Phone: [employer] 04-26-2023 08:29-0500 Diastolic blood pressure 76 mm[Hg] Inga Washington MD Work Phone: [employer] 04-26-2023 08:29-0500 Heart rate 98 /min Inga Washington MD Work Phone: [employer] 04-26-2023 08:29-0500 SaO2% (BldA) [Mass fraction] 96 % Inga Washington MD Work Phone: [employer] 04-26-2023 08:29-0500 Systolic blood pressure 136 mm[Hg] Inga Washington MD Work Phone: [employer] 04-17-2023 11:20-0500 Body height 154.9 cm Marjan Wall SYSTEMS PROGRAMMER - CN P Work Phone: [facility] [employer] 04-17-2023 11:20-0500 Body mass index (BMI) [Ratio] 29.85 kg/m2 Marjan Wall SYSTEMS PROGRAMMER - [employer] Work Phone: [facility] [employer] 04-17-2023 11:20-0500 Body weight 71.67 kg Marjan Wall SYSTEMS PROGRAMMER - CN P Work Phone: [facility] 04-17-2023 11:20-0500 Diastolic blood pressure 77 mm[Hg] Marjan Brownat SYSTEMS PROGRAMMER - [employer] Work Phone: [facility] 04-17-2023 11:20-0500 Heart rate 74 /min Marjan Wall SYSTEMS PROGRAMMER - CN P Work Phone: [facility] 04-17-2023 11:20-0500 SaO2% (BldA) [Mass fraction] 94 % Marjan Wall SYSTEMS PROGRAMMER [employer] Work Phone: [facility] Encounters Encounter Date Encounter Type Care Provider Facility Start: 05-04-2023 Refill Marjan Wall SYSTEMS PROGRAMMER [employer] Work Phone: [facility] Procedures Date Procedure Procedure Detail Performing Clinician Start: 03-28-2023 Radiologic exam ches t 2 views Jazmin Moy PA-C Work Phone: Start: 03-23-2023 Comprehensive metabo lic panel Jazmin Moy PA-C Work Phone: Start: 03-23-2023 Lipid panel Jazmin powell PA-C Work Phone: Start: 03-23-2023 End: 03-23-2023 Thyrotropin [Units/volume] in Serum or Plasma Jazmin Moy PA-C Work Phone: Start: 03-23-2023 Lipid 1996 panel - S beverley or Plasma Jazmin Moy PA-C Work Phone: Start: 07-12-2022 Follow-up visit Follow-up JOYCE MENDEZ Start: 04-10-2022 Thyrotropin [Units/v olume] in Serum or Plasma Joyce Kevin BOYER Work Phone: Start: 12-19-2021 Lipid 1996 panel - S beverley or Plasma Joyce Kevin BOYER Work Phone: Start: 11-16-2021 Brncdilat rspse spmt ry pre&post-brncdilat severino Chavez MD Work Phone: Start: 09-08-2021 Us breast uni real t liliana with image limited Bay Freitaso DO Work Phone: Start: 09-08-2021 Diagnostic mammograp hy computer-aided detcj uni Bay Parsoncacarolyneo DO Work Phone: Start: 05-13-2021 Ct thorax w/o contra st material Nas Lozada MD Work Phone: Start: 04-28-2021 Mammography Joyce handley APRN Work Phone: Start: 03-10-2021 Smr prim src gram/gi emsa stain bct fungi/cell Tay Chavez MD Work Phone: Start: 01-27-[address] atten uation skull base mid-thigh Nas Lozada MD Work Phone: Start: 12-16-2020 Basic metabolic pane l calcium total Tay Chavez MD Work Phone: Start: 10-08-2020 Radiologic exam ches t 2 views Nathan Jamison MD Work Phone: Start: 09-07-2020 Brncdilat rspse spmt ry pre&post-brncdilat severino Chavez MD Work Phone: Start: 03-09-2020 Radex shoulder compl ete minimum 2 views Alejandro Dirando Work Phone: Start: 01-07-2020 Ct angiography chest w/contrast/noncontrast Doug Horn Work Phone: Start: 01-07-2020 Assay of lactate Doug [email or web address] Work Phone: Start: 01-07-2020 Assay of troponin quantitative Doug [email or web address] Work Phone: Start: 01-07-2020 Blood count complete auto&auto difrntl wbc Doug [employer] Work Phone: Start: 01-07-2020 Comprehensive metabo lic panel Doug Ball [email or web address] Work Phone: Start: 01-07-2020 Natriuretic peptide [place] [employer] Work Phone: Start: 01-07-2020 Prothrombin time Doug [email or web address] Work Phone: Start: 10-03-2019 Radex hip unilateral with pelvis 2-3 views Bay Zepeda Work Phone: Start: 07-18-2019 Potassium serum plasma/whole blood Bay Zepeda Work Phone: Start: 06-20-2019 Radex ankle complete minimum 3 views Bay Zepeda Work Phone: Start: 02-14-2019 CT ABDOMEN PELVIS W CONTRAST Bay Zepeda Work Phone: Start: 02-11-2019 Creatinine blood Bay Zepeda Work Phone: Start: 11-05-2018 Colonoscopy Bay parson DO Work Phone: Plan of Treatment Date Care Activity Detail Author Start: 11-05-2028 Colon cancer screen colonoscopy Colon cancer screen colonoscopy [place] Start: 11-05-2028 Screening for malignant neoplasm of colon [facility] Start: 03-23-2028 Lipid panel Lipid Panel [facility] Start: 12-19-2026 Lipid panel [facility] Start: 12-08-2026 DTaP/Tdap/Td vaccine (2 - Td or Tdap) DTaP/Tdap/Td vaccine (2 - Td or Tdap) [facility] Start: 12-08-2026 DTaP/Tdap/Td Vaccines (2 - Td or Tdap) DTaP/Tdap/Td Vaccines (2 - Td or Tdap) [facility] Start: 11-04-2025 Lipid panel [facility] Start: 03-23-2024 Thyroid stimulating hormone measurement TSH Level [facility] Start: 09-20-2023 Lipid panel Lipid screen [facility] [place] Start: 09-20-2023 Lipid screen Lipid screen [facility], [place] Start: 09-09-2023 Screening for malignant neoplasm of breast Breast cancer screen [facility] Start: 07-18-2023 End: 07-18-2023 Patient encounter procedure 07/18/2023 11:40 AM EDT Office Visit [facility] [address] [place] [address] Tay Chavez MD [address] [place] [address] [facility] Start: 07-06-2023 End: 07-06-2023 Patient encounter procedure 07/06/2023 2:30 PM EDT Office Visit [facility] [address] [place] [id number] Vic Foley MD [address], [address] [place] [address] [facility] Start: 06-04-2023 End: 06-04-2023 Patient encounter procedure 06/04/2023 10:15 AM EST Appointment [facility] [address] [place] [id number] Marjan Wall, SYSTEMS PROGRAMMER - [employer] [address] [place], [place] [id number] [facility] [address] Start: 06-02-2023 End: 04-17-2024 CT Chest for screening WO contrast CT lung screening low dose Imaging Routine Cigarette smoker Expected: 06/02/2023, Expires: 04/17/2024 [facility] Work Phone: Immunizations Immunization Date Immunization Notes Care Provider Fa alie 05-21-2021 zoster vaccine recombinant Bay Zepeda DO Work Phone: [facility] Work Phone: 02-03-2021 Influenza, High-dose , Quadv, 65 yrs +, IM (Fluzone) Tay Chavez MD Work Phone: [facility] Work Phone: 02-03-2021 influenza virus vacc ine, unspecified formulation Joyce Borwn ROSALIND Work Phone: [facility] 02-02-2021 influenza virus vacc ine, unspecified formulation Nas Lozada MD Work Phone: [facility] Work Phone: 09-13-2020 COVID-19, Moderna, P F, 100mcg/0.5mL Tay Chavez MD Work Phone: [facility] Work Phone: 08-24-2020 COVID-19, Moderna, Primary or Immunocompromised, PF, 100mcg/0.5mL Nas Lozada MD Work Phone: [facility] Work Phone: 07-30-2020 COVID-19, Moderna, Primary or Immunocompromised, PF, 100mcg/0.5mL Nas Lozada MD Work Phone: [facility] Work Phone: 06-29-2020 COVID-19, Moderna, Primary or Immunocompromised, PF, 100mcg/0.5mL Nas Lozada MD Work Phone: [facility] Work Phone: 04-07-2020 influenza, high dose seasonal, preservative-free Tay Chavez MD Work Phone: [facility] Work Phone: 01-14-2020 tuberculin skin test ; purified protein derivative solution, intradermal Bay Zepeda [facility] 11-13-2019 zoster vaccine recombinant Nas Lozada MD Work Phone: [facility] Work Phone: 01-15-2019 influenza, high dose seasonal, preservative-free Tay Chavez MD Work Phone: [facility] 12-23-2018 influenza, high dose seasonal, preservative-free [place] 11-12-2018 pneumococcal polysaccharide vaccine, 23 valent Nas Lozada MD Work Phone: [facility] Work Phone: 02-20-2018 influenza, high dose seasonal, preservative-free Tay Chavez MD Work Phone: [facility] Work Phone: 10-26-2017 pneumococcal conjuga te vaccine, 13 valent Nas Lozada MD Work Phone: [facility] Work Phone: 12-08-2016 tetanus toxoid, redu kristina diphtheria toxoid, and acellular pertussis vaccine, adsorbed Nas Lozada MD Work Phone: [facility] Work Phone: 12-08-2016 zoster vaccine, live Nas ann MD Work Phone: [facility] Work Phone: 09-14-2016 pneumococcal polysaccharide vaccine, 23 valent [place], [place] 09-13-2015 pneumococcal conjuga te vaccine, 13 valent [facility] 09-04-2013 measles, mumps and rubella virus vaccine Nas Lozada MD Work Phone: [facility] Work Phone: 03-30-2007 pneumococcal polysaccharide vaccine, 23 valent [place], [place] Payers Date Payer Category Payer Unknown 2014 Medicare MEDICARE MEDICAR E PART A AND B xxxxxxxxxxx 2014-Present [phone] [place] [address] xxxxxxxxxxx [id number] 2014 Unknown BC[place] - [place] P PO xxxxxxxxxxxxxxx 2014-Present [address] [place] [address] xxxxxxxxxxxxxxx [id number] 2014 Unknown [id number] 2008 Medicare [id number] 2008 Medicare 1950 Unknown [id number] 1952 Unknown [id number] 1952 Unknown [id number] 1952 Unknown [id number] 1952 Unknown [id number] 1952 Unknown [id number] 1952 Unknown [id number] Social History Date Type Detail Facility Start: 01-20-2019 End: 05-26-2022 Tobacco smoking status DEIS Former smoker [facility] Start: 09-14-1955 End: 12-01-2008 History of tobacco use Current smoker [place], [place] Start: [birth year]-14-1953 End: 12-01-2008 History of tobacco use Cigarette Smoker [place] Start: 01-20-2019 End: 04-26-2023 Cigarettes smoked current (pack per day) - Reported [facility] [place] Start: 01-20-2019 End: 04-26-2023 Alcohol intake No [facility] [place] Start: 07-09-2018 End: 11-01-2021 History SDOH Alcohol Frequency 1 [facility] [place] Start: 07-09-2018 End: 11-01-2021 History SDOH Social Connections Phone 5 [place] Start: 07-09-2018 End: 10-15-2018 History SDOH Social Connections Get Together 2 [place], [place] Start: 07-09-2018 History SDOH Social Connections Living 3 [place] Start: 07-09-2018 History SDOH Physica l Activity DPW 0 [place] Start: 07-09-2018 History SDOH Education 13 [place], [place] Start: 1950 Sex Assigned At Not on file M [place] Start: 05-07-2019 End: 04-26-2023 Alcohol intake Current non-drinker of alcohol (finding) [place] Exposure to SARS-CoV -2 (event) Unable to assess [place] Start: 01-07-2020 End: 05-26-2022 Tobacco use and exposure Never used [place], [place] Start: 01-15-2022 End: 12-06-2022 Exposure to SARS-CoV-2 (event) Not sure [place] Exposure to SARS-CoV -2 (event) [facility] Start: 09-06-2020 History SDOH Financial 4 [facility] Start: 1950 Sex Assigned At Female [facility] Start: 04-26-2023 Gender identity Identifies as female gender (finding) [facility] Start: 04-26-2023 Sexual orientation Heterosexual (fin ding) [facility] Goals Date Patient Goal Desired Activity /State Clinical Notes 03-24-2022 to 04-26-2023 Inga Washington MD - 04/26/2023 8:20 AM Marycurz Wall APRN - [employer] - 04/17/2023 11:20 AM ESTPatient InstructionsTelephone Encounter - Mira Sepulveda MA - 04/13/2023 9:07 AM ESTPatient Instructions Note Date & Type Note Facility 04-26-2023 History of Presen t illness Narrative Images from the original note were not included. [facility] [address] [facility] [id number] Dept: [phone] Dept Loc: [phone] Reason for Visit: Vaginal Discharge (Pt reports greenish-yellow discharge, pt started taking an ATB she had at home and it has started to clear up ), Conjunctivitis (Pt started using old drops she had at home for this ), and Wheezing Assessment and Plan 1. Bladder prolapse, female, [place] [facility] 2. Vaginal discharge - [facility] - Vaginitis Panel MVP PCR 3. Incontinence in female - [facility] 4. COPD exacerbation (HCC) empirically started patient on Levaquin as well as prednisone due to her allergies. If no improvement would recommend a chest x-ray also recommend she follow back up with pulmonology. - levoFLOXacin (Levaquin) 250 MG tablet; Take 1 tablet (250 mg) by mouth daily for 7 days., Starting Lana 04/26/2023, Until Lana 05/03/2023, Normal - predniSONE (Deltasone) 20 MG tablet; Take 1 tablet (20 mg) by mouth daily for 7 days., Starting Lana 04/26/2023, Until Lana 05/03/2023, Normal 5. Acute bacterial conjunctivitis of right eye - ciprofloxacin (Ciloxan) 0.3 % ophthalmic solution; Administer 1 drop into both eyes in the morning and 1 drop at noon and 1 drop before bedtime. Do all this for 7 days., Starting Lana 04/26/2023, Until Lana 05/03/2023, Normal current treatment plan is effective, no change in therapy, orders and follow up as documented in EMR, lab results reviewed with patient, repeat labs ordered prior to next appointment, reviewed compliance with lifestyle measures, reviewed diet, exercise and weight control, reviewed medications and side effects in detail Return visit in 1 week. Follow back up with primary care physician Dr. Roman Subjective Vaginal Discharge The patient's primary symptoms include vaginal discharge. The patient's pertinent negatives include no genital itching, genital lesions, genital odor or pelvic pain. This is a new problem. The current episode started in the past 7 days. The problem occurs intermittently. The problem has been gradually improving. The patient is experiencing no pain. The vaginal discharge was green. There has been no bleeding. She has not been passing clots. She has not been passing tissue. Treatments tried: Patient old antibiotics Levaquin in the discharge is almost gone. She is not sexually active. No, her partner does not have an STD. She uses nothing for contraception. She is postmenopausal. Conjunctivitis The current episode started 5 to 7 days ago. The onset was sudden. The problem has been gradually improving. Nothing relieves the symptoms. Associated symptoms include eye redness. The eye pain is not associated with movement. Patient has been having a lot of wheezing. She states she recently went to see pulmonology it appears they put her on Daliresp. She states she did not tolerate this well at all she states that she felt that these are when the symptoms occur. She had a reaction to it she did notify pulmonology she states that she has been having a lot of cough wheezing greenish discharge no fevers no chills. Review of Systems Eyes: Positive for redness. Genitourinary: Positive for vaginal discharge. Negative for pelvic pain. Allergies Allergen Reactions Lisinopril Shortness of breath Cough and wheezing Other Other Envirmental allergies trees pollen rag weed, douglass Ampicillin Other reaction(s): Other, stomach issues Aspirin Hives Other reaction(s): U Other reaction(s): U Codeine Other reaction(s): GI Upset sleepy, dizzy Erythromycin unknown reaction Penicillins Other reaction(s): Other (See Comments) Upset stomach Other reaction(s): Other Other reaction(s): U Other reaction(s): Other Other reaction(s): Other, stomach issues Other reaction(s): stomach issues, U unknown reaction Sulfa Antibiotics Cephalexin Hives and Rash Other reaction(s): Hives Other reaction(s): U Other reaction(s): Hives Other reaction(s): Hives Other reaction(s): Hives, U Outpatient Medications Prior to Visit Medication Sig Dispense Refill albuterol (2.5 MG/3ML) 0.083% nebulizer solution Take 3 mL (2.5 mg) by nebulization every 4 hours as needed for wheezing or shortness of breath. 75 mL 2 albuterol 108 (90 Base) MCG/ACT inhaler Inhale 2 puffs every 4 hours as needed for shortness of breath. 1 each 11 amLODIPine (Norvasc) 5 MG tablet Take 1 tablet (5 mg) by mouth daily. 90 tablet 1 budesonide (Pulmicort) 0.5 MG/2ML nebulizer solution USE 1 VIAL VIA NEBULIZER TWICE A DAY 60 mL 2 cholecalciferol (Vitamin D-3) 25 MCG (1000 UT) capsule Take 1 capsule by mouth in the morning and 1 capsule before bedtime. Diclofenac Sodium (Voltaren) 1 % gel Apply 2 g topically 2 times daily. 150 g 1 Pxmxtnhsutn-Eqsfbpmsr-Ikhezw (Trelegy Ellipta) 100-62.5-25 MCG/ACT aerosol powder Inhale 1 Inhalation daily. 60 each 2 formoterol (Perforomist) 20 MCG/2ML nebulizer solution Take 2 mL (20 mcg) by nebulization in the morning and 2 mL (20 mcg) in the evening. 60 mL 2 ipratropium (Atrovent) 0.02 % nebulizer solution INHALE THE CONTENTS OF 1 VIAL VIA NEBULIZER 2 TIMES DAILY ipratropium-albuterol (Duo-Neb) 0.5-2.5 mg/3 mL nebulizer solution Take 3 mL by nebulization 4 times daily as needed for wheezing. 30 mL 2 levothyroxine (Synthroid, Levoxyl) 100 MCG tablet Take 1 tablet (100 mcg) by mouth daily for 180 doses. 90 tablet 1 omeprazole (PriLOSEC) [address] capsule Take 1 capsule (20 mg) by mouth daily. 90 capsule 1 Potassium Gluconate 2.5 MEQ tablet Take by mouth. Roflumilast (Daliresp) 250 MCG tablet Take 250 mcg by mouth daily. 30 tablet 0 [START ON 05/18/2023] Roflumilast (Daliresp) 500 MCG tablet Take 1 tablet (500 mcg) by mouth daily. Do not start before May 18, 2023. 90 tablet 2 spironolactone (Aldactone) 25 MG tablet Take 1 tablet (25 mg) by mouth daily. (Patient not taking: Reported on 04/17/2023) 90 tablet 1 tiotropium (Spiriva HandiHaler) [address] 1 capsule (18 mcg) into inhaler and inhale daily. 3 capsule 0 zafirlukast (Accolate) 20 MG tablet Take 20 mg by mouth in the morning and 20 mg before bedtime. Facility-Administered Medications Prior to Visit Medication Dose Route Frequency Provider Last Rate Last Admin albuterol (2.5 MG/3ML) 0.083% nebulizer solution 2.5 mg 2.5 mg Nebulization Once Jazmin Moy PA-C ipratropium (Atrovent) 0.02 % nebulizer solution 0.5 mg 0.5 mg Nebulization Once Jazmin Moy PA-C Patient Active Problem List Diagnosis Centrilobular emphysema (HCC) Post herpetic neuralgia History of shingles Hypothyroidism Chronic respiratory failure with hypoxia (HCC) Immunoglobulin deficiency (HCC) Hypertension Tobacco use disorder, severe, in sustained remission Nodule of upper lobe of right lung IBS (irritable bowel syndrome) Primary osteoarthritis of left knee Preop pulmonary/respiratory exam Past Medical History: Diagnosis Date Asthma 2006 Breast cancer screening 04/2021 COPD (chronic obstructive pulmonary disease) (HCC) 2014 Home O2 since 2014 Ex-smoker 2009 GERD (gastroesophageal reflux disease) History of idiopathic thrombocytopenic purpura 2006 resolved History of shingles 12/2020 left CN V Hypertension 2004 Hypothyroidism IBS (irritable bowel syndrome) 2000 2008 colonoscopy per - due 2018 Immunoglobulin deficiency (HCC) 2008 monthly IVIG infusion per Dr. Decker [place], [place] Nodule of upper lobe of right lung no change per 07/13 CT Renal stones Social History Tobacco Use Smoking status: Former Packs/day: 2 Types: Cigarettes Start date: 09/14/1955 Quit date: 12/01/2008 Years since quittin.4 Smokeless tobacco: Never Substance Use Topics Alcohol use: No Alcohol/week: 0.0 standard drinks of alcohol Past Surgical History: Procedure Laterality Date APPENDECTOMY CATARACT EXTRACTION W/ INTRAOCULAR LENS IMPLANT Bilateral CHOLECYSTECTOMY 2013 COLONOSCOPY 11/05/2018 Repeat colonoscopy 10 years. COLONOSCOPY 2008-Repeat 2018 DENTAL SURGERY dentures HEMORRHOID SURGERY 1994 MENISCECTOMY Left 07/06/2015 [place] SKIN BIOPSY from left arm, under right breast, and forehead. All negative for CA TONSILLECTOMY (HISTORICAL) TOTAL VAGINAL HYSTERECTOMY 1994 Ovaries intact Family History Problem Relation Name Age of Onset Other (28797) Sister adrenal issues Rheum arthritis Father 58 No Known Problems Brother No Known Problems Brother High Blood Pressure Mother alive age 90 No Known Problems Sister Heart disease Father 58 age 58 No Known Problems Brother No Known Problems Brother Health Maintenance Topic Date Due Depression Screening Never done Hepatitis C Screening Never done Diabetes Screening Never done Hepatitis A Vaccines (1 of 2 - Risk 2-dose series) Never done RSV Immunization aged 60 or older (1 - 1-dose 60+ series) Never done Bone Density Scan 11/08/2021 Mammogram 04/28/2022 Influenza Vaccine (1) 12/22/2022 COVID-19 Vaccine ( - 2022- season) 2022 TSH Level 03/23/2024 DTaP/Tdap/Td Vaccines (2 - Td or Tdap) 12/08/2026 Lipid Panel 03/23/2028 Colorectal Cancer Screening 11/05/2028 Pneumococcal Vaccine: 65+ Years Completed Zoster Vaccines Completed RSV Immunization under 20 Months Aged Out HIB Vaccines Aged Out Hepatitis B Vaccines Aged Out IPV Vaccines Aged Out Meningococcal Vaccine Aged Out Rotavirus Vaccines Aged Out HPV Vaccines Aged Out Objective BP 136/76 Pulse 98 Temp 36.7 C (98 F) Ht 5' 1 (1.549 m) Wt 156 lb (70.8 kg) SpO2 96% BMI 29.48 kg/m Physical Exam Exam conducted with a building estimator present. HENT: Mouth/Throat: Mouth: Mucous membranes are moist. Eyes: Conjunctiva/sclera: Right eye: Right conjunctiva is injected. Left eye: Left conjunctiva is not injected. Cardiovascular: Rate and Rhythm: Normal rate and regular rhythm. Pulmonary: Effort: Pulmonary effort is normal. Breath sounds: No stridor or decreased air movement. Wheezing present. Abdominal: General: Abdomen is flat. Palpations: Abdomen is soft. Genitourinary: Exam position: Knee-chest position. Labia: Right: No rash. Left: No rash. Comments: Visible prolapse of bladder seen vaginal discharge noted no bleeding noted Skin: General: Skin is warm and dry. Neurological: Mental Status: She is alert. Data Reviewed and Summarized Labs: Lab Results Component Value Date WBC 12.3 (H) 04/10/2022 HGB 12.9 04/10/2022 HCT 37.9 04/10/2022 PLT 339 04/10/2022 TSH 0.59 03/23/2023 INR 1.0 01/07/2020 Lab Results Component Value Date NA 139 12/19/2021 K 4.2 12/19/2021 CL 102 12/19/2021 CO2 26 03/23/2023 BUN 21 03/23/2023 CREATININE 0.84 03/23/2023 GLUCOSE 97 03/23/2023 CALCIUM 9.6 03/23/2023 PROT 7.2 03/23/2023 BILITOT 0.6 03/23/2023 ALKPHOS 74 03/23/2023 AST 14 03/23/2023 ALT 11 03/23/2023 AGRATIO 1.4 03/23/2023 GLOB 3.0 03/23/2023 @GLUCOSELAB@ Lab Results Component Value Date CHOL 207 (A) 12/19/2021 CHOL 219 (A) 11/04/2020 Lab Results Component Value Date TRIG 77 12/19/2021 TRIG 119 11/04/2020 Lab Results Component Value Date HDL 87 (H) 12/19/2021 HDL 69 (H) 11/04/2020 No results found for: LDLCALC No results found for: VLDL Lab Results Component Value Date CHOLHDLRATIO 2 12/19/2021 CHOLHDLRATIO 3 11/04/2020 Imaging/Testing: XR chest 2 views Narrative: Patient Name: DAYANA BRIGGS : 1950 [facility]#: [id number] Exam Date/Time: 03/28/2023 09:15 Procedure: XR CHEST 2 VIEWS Ordering Provider: MOY JAMES Reason For Exam: cough and congestion CHEST X-RAY PA/LATERAL CLINICAL INDICATION: cough and congestion Frontal and lateral plain films of the chest were obtained. COMPARISON: 05/26/2022 and 07/20/2022 FINDINGS: Cardiomediastinal silhouette: Normal Lungs: Known right upper lobe lung nodule is redemonstrated. There are diffuse emphysematous changes bilaterally. No superimposed lung consolidation or pleural effusion. Bones: Stable with remote right rib fractures and advanced degenerative changes in the shoulder, most severe on the right. No acute osseous findings. Impression: No acute cardiopulmonary disease. Stable appearance of the chest. Report Dictated on Electronically Signed By: Demetrius Thompson MD Electronically Signed Date/Time: 03/29/2023 8:26 AM EST Inga Washington MD documented in this encounter [facility] 04-17-2023 History of Presen t illness Narrative Images from the original note were not included. [facility] [address] [place] [id number] Dept: [phone] Dept Date of Service: 04/17/2023 Visit type: An Established patient Chief Complaint/Reason for Referral: 3 month follow up SUBJECTIVE History of Present Illness: Dayana Briggs ( 1950) is a 72 y.o. female patient, with significant PMHx chronic hypoxic respiratory failure on chronic 2L, severe COPD, Immunoglobulin deficiency and prior smoker here 3 month follow up. She reports a history of asthma. She reports her breathing is worse since last visit. She has been seem by her PCP multiple times for wheezing. She uses chronic oxygen at 2 L which has been stable. She has chronic dyspnea with exertion, worse with stairs, which has been about the same. Her symptoms of wheezing and cough are significantly worse despite her usual COPD medications. She has been on prednisone 3 times this month and 2 antibiotics which seem to give her temporary relief. She also reports chronic nasal congestion. Recent CXR did not show any PNA. She lives and cares for her grandchildren and she reports are always sick. She gets immunoglobulin infusions monthly with Dr Davis/[place]/[facility]. She does not think these help much. Her most recent CT chest from June 2022 was reviewed and shows a stable right upper lobe nodule, which appears somewhat smaller than prior. This nodule has been worked up in the past with PET CT (2020) and appears stable. Her last PFTs in October 2021 showed severe/very severe COPD with FEV1 31%, air trapping and reduced diffusion. MMRC Dyspnea Scale: Grade Description of Breathlessness 0 I only get breathless with strenuous exercise. 1 I get short of breath when hurrying on level ground or walking up a slight hill. 2 On level ground, I walk slower than people of the same age because of breathlessness, or have to stop for breath when walking at my own pace. 3 I stop for breath after walking about 100 yards or after a few minutes on level ground. 4 I am too breathless to leave the house or I am breathless when dressing. OBJECTIVE MEDICAL HISTORY: Past Medical History: Diagnosis Date Asthma 2006 Breast cancer screening 04/2021 COPD (chronic obstructive pulmonary disease) ([facility]) 2014 Home O2 since 2014 Ex-smoker 2008 GERD (gastroesophageal reflux disease) History of idiopathic thrombocytopenic purpura 2005 resolved History of shingles 12/2020 left CN V Hypertension 2003 Hypothyroidism IBS (irritable bowel syndrome) 2000 2008 colonoscopy per - due 2018 Immunoglobulin deficiency (HCC) 2007 monthly IVIG infusion per Dr. Decker, [place], [place] Nodule of upper lobe of right lung no change per 07/13 CT Renal stones SURGICAL HISTORY: Past Surgical History: Procedure Laterality Date APPENDECTOMY CATARACT EXTRACTION W/ INTRAOCULAR LENS IMPLANT Bilateral CHOLECYSTECTOMY 2013 COLONOSCOPY 11/05/2018 Repeat colonoscopy 10 years. COLONOSCOPY 2008-Repeat due 2018 DENTAL SURGERY dentures HEMORRHOID SURGERY 1995 MENISCECTOMY Left 07/06/2015 [place] SKIN BIOPSY from left arm, under right breast, and forehead. All negative for CA TONSILLECTOMY (HISTORICAL) TOTAL VAGINAL HYSTERECTOMY 1994 Ovaries intact ALLERGIES: Allergies Allergen Reactions Lisinopril Shortness of breath Cough and wheezing Other Other Envirmental allergies trees pollen rag weed, douglass Ampicillin Other reaction(s): Other, stomach issues Aspirin Hives Other reaction(s): U Other reaction(s): U Codeine Other reaction(s): GI Upset sleepy, dizzy Erythromycin unknown reaction Penicillins Other reaction(s): Other (See Comments) Upset stomach Other reaction(s): Other Other reaction(s): U Other reaction(s): Other Other reaction(s): Other, stomach issues Other reaction(s): stomach issues, U unknown reaction Sulfa Antibiotics Cephalexin Hives and Rash Other reaction(s): Hives Other reaction(s): U Other reaction(s): Hives Other reaction(s): Hives Other reaction(s): Hives, U MEDICATIONS: Current Outpatient Medications: albuterol (2.5 MG/3ML) 0.083% nebulizer solution, Take 3 mL (2.5 mg) by nebulization every 4 hours as needed for wheezing or shortness of breath., Disp: 75 mL, Rfl: 2 albuterol 108 (90 Base) MCG/ACT inhaler, Inhale 2 puffs every 4 hours as needed for shortness of breath., Disp: 1 each, Rfl: 11 amLODIPine (Norvasc) 5 MG tablet, Take 1 tablet (5 mg) by mouth daily., Disp: 90 tablet, Rfl: 1 budesonide (Pulmicort) 0.5 MG/2ML nebulizer solution, USE 1 VIAL VIA NEBULIZER TWICE A DAY, Disp: 60 mL, Rfl: 2 cholecalciferol (Vitamin D-3) 25 MCG (1000 UT) capsule, Take 1 capsule by mouth in the morning and 1 capsule before bedtime., Disp: , Rfl: Diclofenac Sodium (Voltaren) 1 % gel, Apply 2 g topically 2 times daily., Disp: 150 g, Rfl: 1 Yimftaqmogp-Esratsvwq-Lqntea (Trelegy Ellipta) 100-62.5-25 MCG/ACT aerosol powder , Inhale 1 Inhalation daily., Disp: 60 each, Rfl: 2 formoterol (Perforomist) 20 MCG/2ML nebulizer solution, Take 2 mL (20 mcg) by nebulization in the morning and 2 mL (20 mcg) in the evening., Disp: 60 mL, Rfl: 2 ipratropium (Atrovent) 0.02 % nebulizer solution, INHALE THE CONTENTS OF 1 VIAL VIA NEBULIZER 2 TIMES DAILY, Disp: , Rfl: ipratropium-albuterol (Duo-Neb) 0.5-2.5 mg/3 mL nebulizer solution, Take 3 mL by nebulization 4 times daily as needed for wheezing., Disp: 30 mL, Rfl: 2 levothyroxine (Synthroid, Levoxyl) 100 MCG tablet, Take 1 tablet (100 mcg) by mouth daily for 180 doses., Disp: 90 tablet, Rfl: 1 omeprazole (PriLOSEC) [address] capsule, Take 1 capsule (20 mg) by mouth daily., Disp: 90 capsule, Rfl: 1 Potassium Gluconate 2.5 MEQ tablet, Take by mouth., Disp: , Rfl: tiotropium (Spiriva HandiHaler) 18 MCG inhalation capsule, Place 1 capsule (18 mcg) into inhaler and inhale daily., Disp: 3 capsule, Rfl: 0 zafirlukast (Accolate) 20 MG tablet, Take 20 mg by mouth in the morning and 20 mg before bedtime., Disp: , Rfl: fluconazole (Diflucan) 150 MG tablet, Take 1 tablet (150 mg) by mouth daily. (Patient not taking: Reported on 04/17/2023), Disp: 7 tablet, Rfl: 0 Roflumilast (Daliresp) 250 MCG tablet, Take 250 mcg by mouth daily., Disp: 30 tablet, Rfl: 0 [START ON 05/18/2023] Roflumilast (Daliresp) 500 MCG tablet, Take 1 tablet (500 mcg) by mouth daily. Do not start before May 18, 2023., Disp: 90 tablet, Rfl: 2 spironolactone (Aldactone) 25 MG tablet, Take 1 tablet (25 mg) by mouth daily. (Patient not taking: Reported on 04/17/2023), Disp: 90 tablet, Rfl: 1 Current Facility-Administered Medications: albuterol (2.5 MG/3ML) 0.083% nebulizer solution 2.5 mg, 2.5 mg, Nebulization, Once, Jazmin Moy PA-C ipratropium (Atrovent) 0.02 % nebulizer solution 0.5 mg, 0.5 mg, Nebulization, Once, Jazmin Moy PA-C SOCIAL HISTORY: Social History Tobacco Use Smoking status: Former Packs/day: 2 Types: Cigarettes Start date: 09/14/1955 Quit date: 12/01/2008 Years since quittin.3 Smokeless tobacco: Never Substance Use Topics Alcohol use: No Alcohol/week: 0.0 standard drinks of alcohol FAMILY HISTORY: Family History Problem Relation Name Age of Onset Other (18589) Sister adrenal issues Rheum arthritis Father 58 No Known Problems Brother No Known Problems Brother High Blood Pressure Mother alive age 90 No Known Problems Sister Heart disease Father 58 age 58 No Known Problems Brother No Known Problems Brother REVIEW OF SYSTEMS: Review of Systems Constitutional: Positive for activity change and fatigue. Negative for chills, fever and unexpected weight change. HENT: Positive for congestion. Negative for rhinorrhea. Respiratory: Positive for cough, shortness of breath and wheezing. Negative for chest tightness. Cardiovascular: Negative for chest pain, palpitations and leg swelling. Allergic/Immunologic: Positive for immunocompromised state. Psychiatric/Behavioral: Negative. All other systems reviewed and are negative. VITAL SIGNS: BP 123/77 Pulse 74 Ht 5' 1 (1.549 m) Wt 158 lb (71.7 kg) SpO2 94% Comment: 2L o2 P BMI 29.85 kg/m PHYSICAL EXAM: Physical Exam Vitals reviewed. Constitutional: General: She is not in acute distress. Appearance: She is obese. She is not ill-appearing or diaphoretic. HENT: Head: Normocephalic and atraumatic. Nose: No congestion or rhinorrhea. Cardiovascular: Rate and Rhythm: Normal rate and regular rhythm. Pulmonary: Effort: Pulmonary effort is normal. No respiratory distress. Breath sounds: Wheezing (mild diffuse wheezing) present. No rhonchi. Musculoskeletal: Right lower leg: No edema. Left lower leg: No edema. Neurological: Mental Status: She is alert and oriented to person, place, and time. Psychiatric: Mood and Affect: Mood normal. Behavior: Behavior normal. DATA REVIEWED: PFT's--10/2021 FEV1/FVC 35%, FEV1 31%, no BD response TLC 112% RV 131% DLCO 59% Julio Repeat CT. 2021 FINDINGS: LUNGS AND AIRWAYS: The central tracheobronchial tree is clear. Nodule with pleural tag in the right upper lobe measuring 1.3 x 1.2 cm (3-102) is decreased in size from prior CT chest 12/21/2020 at which time measured 1.6 x 1.4 cm and measured in a similar fashion. No new or enlarging pulmonary nodules. There is moderate to severe centrilobular emphysema. CT chest 07/20/2022 1. Advanced emphysematous changes. 2. Stable 1.3 x 0.9 cm nodule in the right upper lobe. 3. Healing right-sided rib fractures (6th, 7th, 8th, and 10th). 4. No pneumothorax. 5. Right renal cyst. CXR 03/28/2023 -COPD changes, no vascular congestion or infiltrates ASSESSMENT and PLAN 1. Very severe chronic obstructive pulmonary disease (HCC) -Symptoms unstable and has required multiple steroid and antibiotic courses over the last few months. She will repeat lung function testing to see if she has a decline in lung function. Most recent FEV1 31%. Flares also may be related to her immunoglobulin deficiency. -Records show prior normal IgE and no eosinophilia which may prompt wheezing. -Will add Daliresp for now and consider adding azithromycin 500 -3 times weekly to help reduce inflammation. -She will continue her current ICS/LABA LABA nebulizers. -Could also consider the addition of Dupixent injections biweekly now approved for COPD and it seems she does have airway inflammation which we will check with FeNO with PFTs. - Complete PFT pre and post bronchodilator; Future - Roflumilast (Daliresp) 250 MCG tablet; Take 250 mcg by mouth daily. Dispense: 30 tablet; Refill: 0 - Roflumilast (Daliresp) 500 MCG tablet; Take 1 tablet (500 mcg) by mouth daily. Do not start before May 18, 2023. Dispense: 90 tablet; Refill: 2 2. Centrilobular emphysema (HCC) -On home oxygen 3. Chronic respiratory failure with hypoxia (HCC) -Oxygenation has been stable on 2 L. Despite symptoms she has not required higher oxygen levels. -Keep SpO2 88% or above 4. Lung nodule -Stable right upper lobe nodule. CT June 2022 shows decrease in size. Prior PET CT negative. 5. Immunoglobulin deficiency (HCC) -Receives monthly infusions for replacement with her bark fitter. -She is also on Accolate which was given to her by her bark fitter. 6. Cigarette smoker --I will order lung screening due in June 2023 given her prior smoking history of 60 pack years, quitting 14 years ago. She is agreeable to screening. - CT lung screening low dose; Future FOLLOW UP: Patient will complete PFTs, CT chest and follow-up with Dr. Middleton in 3 months. ROSALIND Samano CNP Pulmonary & Sleep Medicine documented in this encounter [facility] 04-17-2023 Instructions Chelsie Narvaez MA - 04/17/2023 11:20 AM EST YOUR APPOINTMENT TODAY WAS WITH THE [facility], COPD CLINIC, PULMONARY AND SLEEP MEDICINE OFFICE. PLEASE CALL OUR OFFICE AT [phone] for our [place] office location or [phone] for our [place] location, IF YOU HAVE NOT RECEIVED YOUR TEST RESULTS 7 DAYS AFTER TESTING IS COMPLETED. PLEASE REMEMBER TO REQUEST REFILLS AT YOUR OFFICE VISITS. PHONE/FAX REQUESTS REQUIRE 48-72 HOURS FOR RESPONSE. A FRIENDLY REMINDER COPAYS ARE DUE AT TIME OF SERVICE. THANK YOU. Our Patients Are Important! We want to improve and you can help. After your visit we want you to feel: Listened to, Respected and have your health care explained. You may receive a survey asking you about your visit. Please complete the survey. We will use your feedback to make improvements. COVID-19 VACCINATION INFORMATION: PH. [phone] [email or web address] [facility] Central Scheduling [phone] [facility] Sleep Scheduling [phone] documented in this encounter [facility] 04-13-2023 Telephone encount er Note Pt aware. Stated she went to [place] ED yesterday and was given a steroid. Will follow up with pulmonology on Sunday [facility] 04-13-2023 Miscellaneous Notes Formattin g of this note might be different from the original. Pt aware. Stated she went to [place] ED yesterday and was given a steroid. Will follow up with pulmonology on Sunday Please advise if you would like anything different done for this patient Patient complaining of ongoing dry cough, wheezing. See previous TE. Patient reports some improvement since starting Prednisone but still wheezing. Denies fever, chest pain, difficulty breathing. No OV available. Declines POD. Patient informed message would be sent to provider. Patient advised to call back or go to UC/ED with worsening symptoms. S: Patient spoke with [facility] nurse regarding request for prednisone taper. B: Onset of symptoms/concern began today. A: Patient states she is having another COPD flare-up. Has been around sick kids who have gotten her sick again. Was treated with prednisone taper 60-40-20 on 03/23, which did help. Patient currently has audible wheezing over the phone and cough productive of yellow-green mucus. Nebulizers and inhalers are helping, but still wheezing more than usual and didn't want to go into the weekend without a steroid. Requesting another round of prednisone. No SOB or fever. AMOL 03/28 for same symptoms. R: Called Dr. Roman, who gave verbal order for prednisone 10 mg tabs, 5 tabs for 3 days, then 3 tabs for 3 days, then 1 tab for 3 days, #27, no refills. Also Levaquin 500 mg 1 tab a day, #7, no refills. Allergies reviewed with Dr. Roman. Spoke to Kasia, pharmacist at [facility], and gave verbal order as above. Called patient back and left message with Danial that meds were called into pharmacy. No further needs at this time. instructed to have patient call back with new or worsening symptoms. Reason for Disposition Prescription refill request for ESSENTIAL medicine (i.e., likelihood of harm to patient if not taken) and triager unable to refill per department policy Protocols used: Medication Refill and Renewal [id number] documented in this encounter [employer] 04-12-2023 Telephone encount er Note Please advise if you would like anything different done for this patient [facility] 04-12-2023 Miscellaneous Notes Formattin g of this note might be different from the original. Please advise if you would like anything different done for this patient Patient complaining of ongoing dry cough, wheezing. See previous TE. Patient reports some improvement since starting Prednisone but still wheezing. Denies fever, chest pain, difficulty breathing. No OV available. Declines POD. Patient informed message would be sent to provider. Patient advised to call back or go to UC/ED with worsening symptoms. S: Patient spoke with [facility] nurse regarding request for prednisone taper. B: Onset of symptoms/concern began today. A: Patient states she is having another COPD flare-up. Has been around sick kids who have gotten her sick again. Was treated with prednisone taper 60-40-20 on 03/23, which did help. Patient currently has audible wheezing over the phone and cough productive of yellow-green mucus. Nebulizers and inhalers are helping, but still wheezing more than usual and didn't want to go into the weekend without a steroid. Requesting another round of prednisone. No SOB or fever. AMOL 03/28 for same symptoms. R: Called Dr. Roman, who gave verbal order for prednisone 10 mg tabs, 5 tabs for 3 days, then 3 tabs for 3 days, then 1 tab for 3 days, #27, no refills. Also Levaquin 500 mg 1 tab a day, #7, no refills. Allergies reviewed with Dr. Roman. Spoke to Kasia, pharmacist at [facility], and gave verbal order as above. Called patient back and left message with Danial that meds were called into pharmacy. No further needs at this time. instructed to have patient call back with new or worsening symptoms. Reason for Disposition Prescription refill request for ESSENTIAL medicine (i.e., likelihood of harm to patient if not taken) and triager unable to refill per department policy Protocols used: Medication Refill and Renewal [id number] documented in this encounter [facility] 04-12-2023 Telephone encount er Note Patient complaining of ongoing dry cough, wheezing. See previous TE. Patient reports some improvement since starting Prednisone but still wheezing. Denies fever, chest pain, difficulty breathing. No OV available. Declines POD. Patient informed message would be sent to provider. Patient advised to call back or go to UC/ED with worsening symptoms. [facility] [employer] 04-12-2023 Telephone encount er Note Reason for Disposition Caller has already spoken with another triager or PCP (or office), and has further questions and triager able to answer questions. Protocols used: No Contact or Duplicate Contact [id number] [facility] [employer] 04-12-2023 Miscellaneous Notes Formattin g of this note might be different from the original. Reason for Disposition Caller has already spoken with another triager or PCP (or office), and has further questions and triager able to answer questions. Protocols used: No Contact or Duplicate Contact [id number] documented in this encounter [facility] [employer] 04-06-2023 Telephone encount er Note S: Patient spoke with [facility] nurse regarding request for prednisone taper. B: Onset of symptoms/concern began today. A: Patient states she is having another COPD flare-up. Has been around sick kids who have gotten her sick again. Was treated with prednisone taper 60-40-20 on 03/23, which did help. Patient currently has audible wheezing over the phone and cough productive of yellow-green mucus. Nebulizers and inhalers are helping, but still wheezing more than usual and didn't want to go into the weekend without a steroid. Requesting another round of prednisone. No SOB or fever. AMOL 03/28 for same symptoms. R: Called Dr. Rmoan, who gave verbal order for prednisone 10 mg tabs, 5 tabs for 3 days, then 3 tabs for 3 days, then 1 tab for 3 days, #27, no refills. Also Levaquin 500 mg 1 tab a day, #7, no refills. Allergies reviewed with Dr. Roman. Spoke to Kasia pharmacist at [facility], and gave verbal order as above. Called patient back and left message with Danial that meds were called into pharmacy. No further needs at this time. instructed to have patient call back with new or worsening symptoms. Reason for Disposition Prescription refill request for ESSENTIAL medicine (i.e., likelihood of harm to patient if not taken) and triager unable to refill per department policy Protocols used: Medication Refill and Renewal [id number] [facility] 04-06-2023 Miscellaneous Notes Formattin g of this note might be different from the original. S: Patient spoke with [facility] nurse regarding request for prednisone taper. B: Onset of symptoms/concern began today. A: Patient states she is having another COPD flare-up. Has been around sick kids who have gotten her sick again. Was treated with prednisone taper 60-40-20 on 03/23, which did help. Patient currently has audible wheezing over the phone and cough productive of yellow-green mucus. Nebulizers and inhalers are helping, but still wheezing more than usual and didn't want to go into the weekend without a steroid. Requesting another round of prednisone. No SOB or fever. AMOL 03/28 for same symptoms. R: Called Dr. Roman, who gave verbal order for prednisone 10 mg tabs, 5 tabs for 3 days, then 3 tabs for 3 days, then 1 tab for 3 days, #27, no refills. Also Levaquin 500 mg 1 tab a day, #7, no refills. Allergies reviewed with Dr. Roman. Spoke to Kasia pharmacist at [facility], and gave verbal order as above. Called patient back and left message with Danial that meds were called into pharmacy. No further needs at this time. instructed to have patient call back with new or worsening symptoms. Reason for Disposition Prescription refill request for ESSENTIAL medicine (i.e., likelihood of harm to patient if not taken) and triager unable to refill per department policy Protocols used: Medication Refill and Renewal [id number] documented in this encounter [facility] 03-28-2023 History of Presen t illness Narrative Images from the original note were not included. [facility] [address] [facility] [address] Dept: [phone] Dept Loc: [phone] Visit type: Established Patient Reason for Visit: Wheezing Assessment and Plan 1. Centrilobular emphysema (HCC) - XR chest 2 views - albuterol (2.5 MG/3ML) 0.083% nebulizer solution 2.5 mg; 2.5 mg, Nebulization, Once, On Sun03/28/23 at 1515, For 1 dose - ipratropium (Atrovent) 0.02 % nebulizer solution 0.5 mg; 0.5 mg, Nebulization, Once, On Sun03/28/23 at 1515, For 1 dose I ordered a chest x-ray to be done prior to the patient coming in the office today it is not read by radiology but independently reviewed does show advanced COPD but I do not see any obvious overt signs of infiltrate it does show severe curvature of the thoracic spine which would lead to restrictive lung disease but there is no signs of active pneumonia at this point time. Patient is on her second round of antibiotics she is concerned as she still having significant wheezing. She is scheduled to see pulmonology but not to the 26 encouraged her to contact them to see if she can get on a call list but at this point time there is no further aggressive invasive treatment she is on multiple aerosols and inhalers and still having breakthrough wheezing. She will be given a breathing treatment in the office but encouraged to continue on the prednisone. Follow up if symptoms worsen or fail to improve, for Next scheduled follow-up. Subjective HPI this is a 72-year-old female with an underlying history of emphysema, hypertension, IBS and hypothyroidism who contacted the [facility] for next day appointment evaluation for concerns of persistent cough congestion. Patient was just seen in the office 5 days ago for the same and was concerned she had a COPD flare states her grandchildren are always sick and she gets sick. Patient's been on several rounds of antibiotics I explained to the patient previously that much of what she is getting is an exacerbation of the COPD and does not require continued antibiotic therapy. Despite this the patient still was placed on antibiotics 5 days ago, patient was also placed on prednisone. She is concerned that she feels she can should be much better by this time and is not any better she feels she is not any worse with again no better. Review of Systems Constitutional: Negative for chills and fever. HENT: Negative for congestion and sore throat. Respiratory: Positive for cough, shortness of breath and wheezing. Cardiovascular: Negative for chest pain. Gastrointestinal: Negative for abdominal pain, diarrhea, nausea and vomiting. Musculoskeletal: Negative for back pain. Neurological: Negative for dizziness and light-headedness. All other systems reviewed and are negative. Allergies Allergen Reactions Lisinopril Shortness of breath Cough and wheezing Other Other Envirmental allergies trees pollen rag weed, douglass Ampicillin Other reaction(s): Other, stomach issues Aspirin Hives Other reaction(s): U Other reaction(s): U Codeine Other reaction(s): GI Upset sleepy, dizzy Erythromycin unknown reaction Penicillins Other reaction(s): Other (See Comments) Upset stomach Other reaction(s): Other Other reaction(s): U Other reaction(s): Other Other reaction(s): Other, stomach issues Other reaction(s): stomach issues, U unknown reaction Sulfa Antibiotics Cephalexin Hives and Rash Other reaction(s): Hives Other reaction(s): U Other reaction(s): Hives Other reaction(s): Hives Other reaction(s): Hives, U Outpatient Medications Prior to Visit Medication Sig Dispense Refill albuterol (2.5 MG/3ML) 0.083% nebulizer solution Take 3 mL (2.5 mg) by nebulization every 4 hours as needed for wheezing or shortness of breath. 75 mL 2 albuterol 108 (90 Base) MCG/ACT inhaler Inhale 2 puffs every 4 hours as needed for shortness of breath. 1 each 11 amLODIPine (Norvasc) 5 MG tablet Take 1 tablet (5 mg) by mouth daily. 90 tablet 1 budesonide (Pulmicort) 0.5 MG/2ML nebulizer solution USE 1 VIAL VIA NEBULIZER TWICE A DAY 60 mL 2 cholecalciferol (Vitamin D-3) 25 MCG (1000 UT) capsule Take 1 capsule by mouth in the morning and 1 capsule before bedtime. Diclofenac Sodium (Voltaren) 1 % gel Apply 2 g topically 2 times daily. 150 g 1 doxycycline (Vibramycin) 100 MG capsule Take 1 capsule (100 mg) by mouth 2 times daily for 10 days. Take with at least 8 ounces (large glass) of water, do not lie down for 30 minutes after 20 capsule 0 ferrous sulfate 325 (65 Fe) MG tablet Take 325 mg by mouth daily (with breakfast). fluconazole (Diflucan) 150 MG tablet Take 1 tablet (150 mg) by mouth daily. 7 tablet 0 Ceencjastbn-Kzlbizfqs-Csmxqi (Trelegy Ellipta) 100-62.5-25 MCG/ACT aerosol powder Inhale 1 Inhalation daily. 60 each 2 formoterol (Perforomist) 20 MCG/2ML nebulizer solution Take 2 mL (20 mcg) by nebulization in the morning and 2 mL (20 mcg) in the evening. 60 mL 2 ipratropium (Atrovent) 0.02 % nebulizer solution INHALE THE CONTENTS OF 1 VIAL VIA NEBULIZER 2 TIMES DAILY ipratropium-albuterol (Duo-Neb) 0.5-2.5 mg/3 mL nebulizer solution Take 3 mL by nebulization 4 times daily as needed for wheezing. 30 mL 2 levothyroxine (Synthroid, Levoxyl) 100 MCG tablet Take 1 tablet (100 mcg) by mouth daily for 180 doses. 90 tablet 1 Magnesium 100 MG capsule Take by mouth. mupirocin (Bactroban) 2 % cream Apply topically 3 times daily for 10 days. 15 g 0 omeprazole (PriLOSEC) [address] capsule Take 1 capsule (20 mg) by mouth daily. 90 capsule 1 Potassium Gluconate 2.5 MEQ tablet Take by mouth. predniSONE (Deltasone) 20 MG tablet Take 3 tabs (60mg) daily for 3 days, then take 2 tabs (40mg) daily for 3 days, then take 1 tab (20mg) daily for 3 days. 18 tablet 0 spironolactone (Aldactone) 25 MG tablet Take 1 tablet (25 mg) by mouth daily. 90 tablet 1 tiotropium (Spiriva HandiHaler) [address] 1 capsule (18 mcg) into inhaler and inhale daily. 3 capsule 0 zafirlukast (Accolate) 20 MG tablet Take 20 mg by mouth in the morning and 20 mg before bedtime. No facility-administered medications prior to visit. Past Medical History: Diagnosis Date Asthma 2006 Breast cancer screening 04/2021 COPD (chronic obstructive pulmonary disease) (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 Decker [place], [place] Nodule of upper lobe of right lung no change per 07/13 CT Renal stones Social History Tobacco Use Smoking status: Former Packs/day: 2 Types: Cigarettes Start date: [birth year]14/1953 Quit date: 12/01/2008 Years since quittin.3 Smokeless tobacco: Never Substance Use Topics Alcohol use: No Alcohol/week: 0.0 standard drinks of alcohol Past Surgical History: Procedure Laterality Date APPENDECTOMY CATARACT EXTRACTION W/ INTRAOCULAR LENS IMPLANT Bilateral CHOLECYSTECTOMY 2013 COLONOSCOPY 11/05/2018 Repeat colonoscopy 10 years. COLONOSCOPY 2008-Repeat due 2018 DENTAL SURGERY dentures HEMORRHOID SURGERY 1995 MENISCECTOMY Left 07/06/2015 [place] SKIN BIOPSY from left arm, under right breast, and forehead. All negative for CA TONSILLECTOMY (HISTORICAL) TOTAL VAGINAL HYSTERECTOMY 1994 Ovaries intact Family History Problem Relation Name Age of Onset Other (27755) Sister adrenal issues Rheum arthritis Father 58 No Known Problems Brother No Known Problems Brother High Blood Pressure Mother alive age 90 No Known Problems Sister Heart disease Father 58 age 58 No Known Problems Brother No Known Problems Brother Objective BP 138/74 (BP Location: Left arm, Patient Position: Sitting, BP Cuff Size: Large adult) Pulse 103 Temp 36.7 C (98 F) (Temporal) Ht 5' 1 (1.549 m) Wt 163 lb (73.9 kg) SpO2 96% BMI 30.80 kg/m Physical Exam Vitals reviewed. Constitutional: General: She is not in acute distress. Appearance: Normal appearance. She is not ill-appearing or toxic-appearing. Eyes: General: No scleral icterus. Conjunctiva/sclera: Conjunctivae normal. Pupils: Pupils are equal, round, and reactive to light. Cardiovascular: Rate and Rhythm: Normal rate and regular rhythm. Heart sounds: Normal heart sounds. Pulmonary: Effort: Pulmonary effort is normal. No respiratory distress. Breath sounds: Wheezing present. Musculoskeletal: Cervical back: Normal range of motion and neck supple. Right lower leg: No edema. Left lower leg: No edema. Skin: General: Skin is warm and dry. Neurological: Mental Status: She is alert. Psychiatric: Mood and Affect: Mood normal. Data Reviewed and Summarized Labs: Imaging/Testing: Jazmin Moy PA-C 03/28/2023 Please note that portions of this note may have been completed with voice recognition software. Documentation reviewed prior to signing but minor errors in internal medicine physician assistant may have occurred. documented in this encounter [facility] 03-23-2023 Evaluation + Plan note Associ ated Problem(s): Hypothyroidism - Chronic and stable authorize refill and continue on Synthroid 100 mcg daily. [facility] 03-23-2023 Evaluation + Plan note Associ ated Problem(s): Hypertension Chronic and stable and relatively well-controlled we will continue on amlodipine 5 mg daily as well as spironolactone daily. [facility] 03-23-2023 Miscellaneous Notes Associate d Problem(s): Hypothyroidism - Chronic and stable authorize refill and continue on Synthroid 100 mcg daily. Associated Problem(s): Hypertension Chronic and stable and relatively well-controlled we will continue on amlodipine 5 mg daily as well as spironolactone daily. Associated Problem(s): Centrilobular emphysema (HCC) - Chronic and unstable with periodic exacerbations. We will continue on oral antibiotics and prednisone taper. Discussed transitioning over to Trelegy daily usage. documented in this encounter [facility] 03-23-2023 Evaluation + Plan note Associ ated Problem(s): Centrilobular emphysema (HCC) - Chronic and unstable with periodic exacerbations. We will continue on oral antibiotics and prednisone taper. Discussed transitioning over to Trelegy daily usage. [facility] 03-23-2023 History of Presen t illness Narrative Images from the original note were not included. [facility] [address] [place] [address] [address] [facility] [address] Dept: [phone] Dept Loc: [phone] Visit type: Established Patient Reason for Visit: Wheezing (Thinks copd flare up ) Assessment and Plan 1. COPD exacerbation (HCC) Comments: Acute persistent exacerbation with history of URI type symptoms. Orders: - doxycycline (Vibramycin) 100 MG capsule; Take 1 capsule (100 mg) by mouth 2 times daily for 10 days. Take with at least 8 ounces (large glass) of water, do not lie down for 30 minutes after, Starting Sun03/23/2023, Until Sun04/02/2023, Normal - predniSONE (Deltasone) 20 MG tablet; Take 3 tabs (60mg) daily for 3 days, then take 2 tabs (40mg) daily for 3 days, then take 1 tab (20mg) daily for 3 days., Normal - tiotropium (Spiriva HandiHaler) 18 MCG inhalation capsule; Place 1 capsule (18 mcg) into inhaler and inhale daily., Starting Sun03/23/2023, Normal 2. Primary hypertension Assessment & Plan: Chronic and stable and relatively well-controlled we will continue on amlodipine 5 mg daily as well as spironolactone daily. Orders: - Comprehensive metabolic panel - spironolactone (Aldactone) 25 MG tablet; Take 1 tablet (25 mg) by mouth daily., Starting Sun03/23/2023, Normal - amLODIPine (Norvasc) 5 MG tablet; Take 1 tablet (5 mg) by mouth daily., Starting Sun03/23/2023, Normal 3. Screening for lipid disorders - Lipid panel 4. Hypothyroidism, unspecified type Assessment & Plan: - Chronic and stable authorize refill and continue on Synthroid 100 mcg daily. Orders: - TSH - levothyroxine (Synthroid, Levoxyl) 100 MCG tablet; Take 1 tablet (100 mcg) by mouth daily for 180 doses., Starting Sun03/23/2023, Until Sun09/19/2023, Normal 5. Gastroesophageal reflux disease without esophagitis Comments: Stable on current medication requesting refills. Orders: - omeprazole (PriLOSEC) [address] capsule; Take 1 capsule (20 mg) by mouth daily., Starting Sun03/23/2023, Normal 6. Centrilobular emphysema (HCC) Assessment & Plan: - Chronic and unstable with periodic exacerbations. We will continue on oral antibiotics and prednisone taper. Discussed transitioning over to Trelegy daily usage. Orders: - tiotropium (Spiriva HandiHaler) 18 MCG inhalation capsule; Place 1 capsule (18 mcg) into inhaler and inhale daily., Starting Sun03/23/2023, Normal - Ybkeqbacqla-Cotxbwplm-Mejmpm (Trelegy Ellipta) 100-62.5-25 MCG/ACT aerosol powder ; Inhale 1 Inhalation daily., Starting Sun03/23/2023, Normal No follow-ups on file. Subjective HPI this is a 72-year-old female with an underlying history of emphysema pretension IBS and hypothyroidism who contacted the office several days ago concerned that she was having a COPD flare. This does have some prednisone at home she took a dose of prednisone but called the office stating that she needed more prednisone and an antibiotic review of the chart does show that patient was seen in the office 02/06 at that time she was treated for exacerbation of COPD and was subsequently placed on antibiotic. Patient had a CAT scan of her chest done in June of this year which did show emphysema and a right upper lobe nodule as well as healing rib fractures. But no signs of acute abnormalities at that time. When she contacted the office I was reluctant to immediately place her back on antibiotics without evaluating the patient we did call and prednisone as she does have a history of COPD emphysema she states that the prednisone is not working and requested an office visit. Recently had increased the amount of immunoglobulin she's getting to try to help with immune system. Patient presents to the office primarily with multiple concerns today ultimately states she is about to run out of her medications and needs medication refill. She also concerned as every time she seems to get sick and gets worse. She has recent increase in her immunoglobulins but she is around her grandchildren are fine coughs and colds she would like to explore other options and inhalers we did discuss possible use of Trelegy as opposed to some of her other medications and offering a combination medication. Reva Martinezay she often gets better history antibiotics she is requesting further antibiotics she was treated 6 weeks ago with Levaquin. We did discuss that this potentially viral although she states she is concerned as her immune system is greatly reduced. Review of Systems Constitutional: Positive for fatigue. Negative for diaphoresis and fever. HENT: Positive for congestion, postnasal drip, rhinorrhea and sinus pressure. Negative for sore throat and trouble swallowing. Respiratory: Positive for cough, chest tightness, shortness of breath and wheezing. Negative for choking and stridor. Cardiovascular: Negative for chest pain, palpitations and leg swelling. Gastrointestinal: Negative for abdominal pain, constipation, diarrhea, nausea and vomiting. Genitourinary: Negative for difficulty urinating. Neurological: Positive for headaches. Negative for dizziness and light-headedness. Allergies Allergen Reactions Lisinopril Shortness of breath Cough and wheezing Other Other Envirmental allergies trees pollen rag weed, douglass Ampicillin Other reaction(s): Other, stomach issues Aspirin Hives Other reaction(s): U Other reaction(s): U Codeine Other reaction(s): GI Upset sleepy, dizzy Erythromycin unknown reaction Penicillins Other reaction(s): Other (See Comments) Upset stomach Other reaction(s): Other Other reaction(s): U Other reaction(s): Other Other reaction(s): Other, stomach issues Other reaction(s): stomach issues, U unknown reaction Sulfa Antibiotics Cephalexin Hives and Rash Other reaction(s): Hives Other reaction(s): U Other reaction(s): Hives Other reaction(s): Hives Other reaction(s): Hives, U Outpatient Medications Prior to Visit Medication Sig Dispense Refill albuterol (2.5 MG/3ML) 0.083% nebulizer solution Take 3 mL (2.5 mg) by nebulization every 4 hours as needed for wheezing or shortness of breath. 75 mL 2 albuterol 108 (90 Base) MCG/ACT inhaler Inhale 2 puffs every 4 hours as needed for shortness of breath. 1 each 11 budesonide (Pulmicort) 0.5 MG/2ML nebulizer solution USE 1 VIAL VIA NEBULIZER TWICE A DAY 60 mL 2 cholecalciferol (Vitamin D-3) 25 MCG (1000 UT) capsule Take 1 capsule by mouth in the morning and 1 capsule before bedtime. Diclofenac Sodium (Voltaren) 1 % gel Apply 2 g topically 2 times daily. 150 g 1 ferrous sulfate 325 (65 Fe) MG tablet Take 325 mg by mouth daily (with breakfast). formoterol (Perforomist) 20 MCG/2ML nebulizer solution Take 2 mL (20 mcg) by nebulization in the morning and 2 mL (20 mcg) in the evening. 60 mL 2 ipratropium (Atrovent) 0.02 % nebulizer solution INHALE THE CONTENTS OF 1 VIAL VIA NEBULIZER 2 TIMES DAILY ipratropium-albuterol (Duo-Neb) 0.5-2.5 mg/3 mL nebulizer solution Take 3 mL by nebulization 4 times daily as needed for wheezing. 30 mL 2 Magnesium 100 MG capsule Take by mouth. Potassium Gluconate 2.5 MEQ tablet Take by mouth. zafirlukast (Accolate) 20 MG tablet Take 20 mg by mouth in the morning and 20 mg before bedtime. amLODIPine (Norvasc) 5 MG tablet Take 1 tablet (5 mg) by mouth daily. 90 tablet 1 omeprazole (PriLOSEC) [address] capsule Take 1 capsule (20 mg) by mouth daily. 90 capsule 1 predniSONE (Deltasone) 20 MG tablet Take 2 tablets (40 mg) by mouth daily for 5 days. 10 tablet 0 spironolactone (Aldactone) 25 MG tablet Take 1 tablet (25 mg) by mouth daily. 90 tablet 1 tiotropium (Spiriva HandiHaler) [address] 1 capsule (18 mcg) into inhaler and inhale daily. 3 capsule 0 levothyroxine (Synthroid, Levoxyl) 100 MCG tablet Take 1 tablet (100 mcg) by mouth daily for 180 doses. 90 tablet 1 No facility-administered medications prior to visit. Past Medical History: Diagnosis Date Asthma 2006 Breast cancer screening 04/2021 COPD (chronic obstructive pulmonary disease) (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 Decker, [place], [place] Nodule of upper lobe of right lung no change per 07/13 CT Renal stones Social History Tobacco Use Smoking status: Former Packs/day: 2 Types: Cigarettes Start date: 09/14/1955 Quit date: 12/01/2008 Years since quittin.3 Smokeless tobacco: Never Substance Use Topics Alcohol use: No Alcohol/week: 0.0 standard drinks of alcohol Past Surgical History: Procedure Laterality Date APPENDECTOMY CATARACT EXTRACTION W/ INTRAOCULAR LENS IMPLANT Bilateral CHOLECYSTECTOMY 2013 COLONOSCOPY 11/05/2018 Repeat colonoscopy 10 years. COLONOSCOPY 2008owski-Repeat due 2018 DENTAL SURGERY dentures HEMORRHOID SURGERY 1995 MENISCECTOMY Left 07/06/2015 Damico SKIN BIOPSY from left arm, under right breast, and forehead. All negative for CA TONSILLECTOMY (HISTORICAL) TOTAL VAGINAL HYSTERECTOMY 1994 Ovaries intact Family History Problem Relation Name Age of Onset Other (40330) Sister adrenal issues Rheum arthritis Father 58 No Known Problems Brother No Known Problems Brother High Blood Pressure Mother alive age 90 No Known Problems Sister Heart disease Father 58 age 58 No Known Problems Brother No Known Problems Brother Objective BP (!) 143/72 (BP Location: Right arm, Patient Position: Sitting, BP Cuff Size: Large adult) Pulse 80 Temp 36.1 C (97 F) (Temporal) Ht 5' 1 (1.549 m) Wt 163 lb (73.9 kg) SpO2 98% BMI 30.80 kg/m Physical Exam Vitals reviewed. Constitutional: General: She is not in acute distress. Appearance: Normal appearance. She is not ill-appearing or toxic-appearing. HENT: Right Ear: Tympanic membrane and ear canal normal. Left Ear: Tympanic membrane and ear canal normal. Mouth/Throat: Mouth: Mucous membranes are moist. Pharynx: No oropharyngeal exudate or posterior oropharyngeal erythema. Eyes: General: No scleral icterus. Conjunctiva/sclera: Conjunctivae normal. Pupils: Pupils are equal, round, and reactive to light. Cardiovascular: Rate and Rhythm: Normal rate and regular rhythm. Heart sounds: Normal heart sounds. Pulmonary: Effort: Pulmonary effort is normal. No respiratory distress. Breath sounds: Wheezing present. Musculoskeletal: Cervical back: Normal range of motion and neck supple. Skin: General: Skin is warm and dry. Comments: Small skin ulceration was noted on the inside of the right nare consistent with persistent oxygen use. Neurological: Mental Status: She is alert. Psychiatric: Mood and Affect: Mood normal. Data Reviewed and Summarized Labs: Imaging/Testing: Jazmin Moy PA-C 03/23/2023 Please note that portions of this note may have been completed with voice recognition software. Documentation reviewed prior to signing but minor errors in internal medicine physician assistant may have occurred. documented in this encounter [facility] 03-23-2023 Instructions Jazmin Moy PA-C - 03/23/2023 9:00 AM EST If you start the trelegy inhaler, you will not need to continue spiriva or perfomist. documented in this encounter [facility] 02-06-2023 History of Presen t illness Narrative Images from the original note were not included. [facility] [address] [place] [address] [address] [facility] [address] Dept: [phone] Dept Loc: [phone] Visit type: Established Patient Reason for Visit: Wheezing Assessment and Plan 1. COPD exacerbation (HCC) - levoFLOXacin (Levaquin) 500 MG tablet; Take 1 tablet (500 mg) by mouth daily for 10 days., Starting Sun02/06/2023, Until Sun02/16/2023, Normal - predniSONE (Deltasone) 20 MG tablet; Take 3 tablets (60 mg) by mouth daily for 5 days., Starting Sun02/06/2023, Until Sun02/11/2023, Normal -Patient has acute exacerbation of her COPD familiar with her symptoms. She continues use oxygen as she ambulates. She had Levaquin at home she took for 4 days she is requesting refill for the next week. She was on prednisone but was back in November she responds well to prednisone so we will do 60 mg for 5 days and refill her Levaquin encouraged to continue using her inhalers at home. There is no signs of acute respiratory distress no indication for need for further imaging testing or emergency evaluation at this point time she was always encouraged should symptoms change or worsen she start experiencing worsening shortness of breath she should be seen immediately in the emergency room. Follow up if symptoms worsen or fail to improve, for Next scheduled follow-up. Subjective HPI this is a 72-year-old female with an underlying history of emphysema pretension IBS and hypothyroidism who contacted the [facility] 5 days ago for concerns of difficulty breathing and wheezing. Patient endorses her symptoms began at the beginning of January. She states she has ongoing issues with her emphysema and asthma. This has been an ongoing issue for several weeks. She states on 01/24 she was prescribed doxycycline and prednisone she has currently finished her medications. She endorses still having ongoing cough and wheezing at times of generalized congestion. She reports she thinks she needs a stronger antibiotic states Levaquin usually works good for her. Did have some left over levaquin and took 4 pills and now out of medicine. Spoke to bark fitter and has recently increased the amount of antibiotics monthly through IV infusions. Has multiple inhalers and use nebules 2x a day. And sometimes if more wheezy will use more medicine. Uses O2 when walking but as long as sitting and resting does ok Review of Systems Constitutional: Negative for chills and fever. HENT: Positive for congestion. Negative for postnasal drip, sinus pressure and sinus pain. Respiratory: Positive for cough and wheezing. Negative for chest tightness and shortness of breath. Cardiovascular: Negative for chest pain and palpitations. Gastrointestinal: Negative for diarrhea, nausea and vomiting. Musculoskeletal: Negative for myalgias. All other systems reviewed and are negative. Allergies Allergen Reactions Lisinopril Shortness of breath Cough and wheezing Other Other Ampicillin Other reaction(s): Other, stomach issues Aspirin Hives Other reaction(s): U Other reaction(s): U Codeine Other reaction(s): GI Upset sleepy, dizzy Erythromycin unknown reaction Penicillins Other reaction(s): Other (See Comments) Upset stomach Other reaction(s): Other Other reaction(s): U Other reaction(s): Other Other reaction(s): Other, stomach issues Other reaction(s): stomach issues, U unknown reaction Sulfa Antibiotics Cephalexin Hives and Rash Other reaction(s): Hives Other reaction(s): U Other reaction(s): Hives Other reaction(s): Hives Other reaction(s): Hives, U Outpatient Medications Prior to Visit Medication Sig Dispense Refill albuterol (2.5 MG/3ML) 0.083% nebulizer solution Take 3 mL (2.5 mg) by nebulization every 4 hours as needed for wheezing or shortness of breath. 75 mL 2 albuterol 108 (90 Base) MCG/ACT inhaler Inhale 2 puffs every 4 hours as needed for shortness of breath. 1 each 11 amLODIPine (Norvasc) 5 MG tablet Take 1 tablet (5 mg) by mouth daily. 90 tablet 1 budesonide (Pulmicort) 0.5 MG/2ML nebulizer solution USE 1 VIAL VIA NEBULIZER TWICE A DAY 60 mL 2 cholecalciferol (Vitamin D-3) 25 MCG (1000 UT) capsule Take 1 capsule by mouth in the morning and 1 capsule before bedtime. formoterol (Perforomist) 20 MCG/2ML nebulizer solution Take 2 mL (20 mcg) by nebulization in the morning and 2 mL (20 mcg) in the evening. 60 mL 2 ipratropium (Atrovent) 0.02 % nebulizer solution INHALE THE CONTENTS OF 1 VIAL VIA NEBULIZER 2 TIMES DAILY ipratropium-albuterol (Duo-Neb) 0.5-2.5 mg/3 mL nebulizer solution Take 3 mL by nebulization 4 times daily as needed for wheezing. 30 mL 2 levothyroxine (Synthroid, Levoxyl) 100 MCG tablet Take 1 tablet (100 mcg) by mouth daily for 180 doses. 90 tablet 1 Magnesium 100 MG capsule Take by mouth. omeprazole (PriLOSEC) [address] capsule Take 1 capsule (20 mg) by mouth daily. 90 capsule 1 Potassium Gluconate 2.5 MEQ tablet Take by mouth. spironolactone (Aldactone) 25 MG tablet Take 1 tablet (25 mg) by mouth daily. 90 tablet 1 tiotropium (Spiriva HandiHaler) [address] 1 capsule (18 mcg) into inhaler and inhale daily. 3 capsule 0 zafirlukast (Accolate) 20 MG tablet Take 20 mg by mouth in the morning and 20 mg before bedtime. predniSONE (Deltasone) 10 MG tablet 5 qday for 3 days, then 3 qday for 3 days, then one qday till gone 27 tablet 0 No facility-administered medications prior to visit. Past Medical History: Diagnosis Date Asthma 2006 Breast cancer screening 04/2021 COPD (chronic obstructive pulmonary disease) (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 Decker [facility], [place] Nodule of upper lobe of right lung no change per 07/13 CT Renal stones Social History Tobacco Use Smoking status: Former Packs/day: 2 Types: Cigarettes Start date: 09/14/1953 Quit date: 12/01/2008 Years since quittin.1 Smokeless tobacco: Never Substance Use Topics Alcohol use: No Alcohol/week: 0.0 standard drinks of alcohol Past Surgical History: Procedure Laterality Date APPENDECTOMY CATARACT EXTRACTION W/ INTRAOCULAR LENS IMPLANT Bilateral CHOLECYSTECTOMY 2012 COLONOSCOPY 11/05/2018 Repeat colonoscopy 10 years. COLONOSCOPY 2008 Turowski-Repeat due 2018 DENTAL SURGERY dentures HEMORRHOID SURGERY 1995 MENISCECTOMY Left 07/06/2015 [facility]ico SKIN BIOPSY from left arm, under right breast, and forehead. All negative for CA TONSILLECTOMY (HISTORICAL) TOTAL VAGINAL HYSTERECTOMY 1994 Ovaries intact Family History Problem Relation Name Age of Onset Other (05950) Sister adrenal issues Rheum arthritis Father 58 No Known Problems Brother No Known Problems Brother High Blood Pressure Mother alive age 90 No Known Problems Sister Heart disease Father 58 age 58 No Known Problems Brother No Known Problems Brother Objective BP 135/77 (BP Location: Left arm, Patient Position: Sitting, BP Cuff Size: Large adult) Pulse 92 Temp 37.3 C (99.1 F) (Temporal) Ht 5' (1.524 m) Wt 161 lb (73 kg) SpO2 97% BMI 31.44 kg/m Physical Exam Vitals reviewed. Constitutional: General: She is not in acute distress. Appearance: Normal appearance. She is not ill-appearing or toxic-appearing. HENT: Right Ear: Tympanic membrane and ear canal normal. Left Ear: Tympanic membrane and ear canal normal. Mouth/Throat: Mouth: Mucous membranes are moist. Pharynx: No oropharyngeal exudate or posterior oropharyngeal erythema. Eyes: General: No scleral icterus. Conjunctiva/sclera: Conjunctivae normal. Pupils: Pupils are equal, round, and reactive to light. Cardiovascular: Rate and Rhythm: Normal rate and regular rhythm. Heart sounds: Normal heart sounds. Pulmonary: Effort: Pulmonary effort is normal. No respiratory distress. Breath sounds: No stridor. Wheezing present. No rales. Musculoskeletal: Cervical back: Normal range of motion and neck supple. Right lower leg: No edema. Left lower leg: No edema. Skin: General: Skin is warm and dry. Neurological: Mental Status: She is alert. Psychiatric: Mood and Affect: Mood normal. Data Reviewed and Summarized Labs: Imaging/Testing: Jazmin Moy PA-C 02/06/2023 Please note that portions of this note may have been completed with voice recognition software. Documentation reviewed prior to signing but minor errors in internal medicine physician assistant may have occurred. documented in this encounter [facility] 01-24-2023 Telephone encount er Note Follow up information [facility] 01-24-2023 Miscellaneous Notes Formattin g of this note might be different from the original. Follow up information Message released to patient as written. Patient's further questions if applicable: Pt verbalized understanding of message : Prednisone and antibiotic prescribed again. However she has had at least 3 exacerbations in the last few months. She really should reach out to her dealer sales rep to see if there is something else she should do. If she has chest pain or fever over 100.5 for more than 48 hours and O2 saturations on oxygen is less than 94% she should go to the ER Please see te nurse triage ..23 No questions Pt states she spoke with allergy kaiawhina kohanga reo and she will receive a different dosage of medication in her IV. Please advise. Thank you Were all questions from office addressed or relayed to the patient from encounter: Yes documented in this encounter [facility] 01-24-2023 Telephone encount er Note Message released to patient as written. Patient's further questions if applicable: Pt verbalized understanding of message : Prednisone and antibiotic prescribed again. However she has had at least 3 exacerbations in the last few months. She really should reach out to her dealer sales rep to see if there is something else she should do. If she has chest pain or fever over 100.5 for more than 48 hours and O2 saturations on oxygen is less than 94% she should go to the ER Please see te nurse triage ..23 No questions Pt states she spoke with allergy kaiawhina kohanga reo and she will receive a different dosage of medication in her IV. Please advise. Thank you Were all questions from office addressed or relayed to the patient from encounter: Yes [facility] 01-24-2023 Telephone encount er Note Attempted to reach patient by phone. First attempt, call was dropped. Second attempt, call was answered by voicemail. All information left on patients voicemail. Instructing her to call back with any questions. [facility] 01-24-2023 Miscellaneous Notes Formattin g of this note might be different from the original. Attempted to reach patient by phone. First attempt, call was dropped. Second attempt, call was answered by voicemail. All information left on patients voicemail. Instructing her to call back with any questions. S: Patient spoke with [facility] nurse regarding cough B: Onset of symptoms/concern started Started 01/20/23, last OV 12/06/22 with -dealer sales rep, Hx Centrilobular emphysema, A: Pt c/o cough and expiratory wheezing. Pt feels she is having a COPD flare up. Able to speak in full sentences, audible expiratory wheezing. Medical record reviewed. Last round of ATB/Steroid was 01/01/23. Pt didn't complete medication regimen of steroids, started taking prednisone 10mg (4 tablets) tablet left over from last RX yesterday. She has 4 tablets more in her bottle and plans to take them today if she doesn't hear back by 3 pm. Pt requesting that provider send in another RX for antibiotic and steroid. She is willing to come in for appt if necessary, but she would rather not. Pharmacy and allergies verified. Reviewed medication regimen, pt if jesse for duo-neb treatment. Pt plans to take next Duo-neb nebulizer treatment when she gets off the phone. Confirmed that she is still taking her maintenance dose of Pulmicort, formoterol And albuterol twice daily as ordered. R: Message sent to provider for review and recommendation. Please call [facility] [phone] with provider's response. Patient understands care advice. No further needs at this time. Patient instructed to call back with new or worsening symptoms. Reason for Disposition Cough lasts > 3 weeks Protocols used: Cough - [id number] documented in this encounter [facility] 01-24-2023 Telephone encount er Note S: Patient spoke with [facility] nurse regarding cough B: Onset of symptoms/concern started Started 01/20/23, last OV 12/06/22 with -dealer sales rep, Hx Centrilobular emphysema, A: Pt c/o cough and expiratory wheezing. Pt feels she is having a COPD flare up. Able to speak in full sentences, audible expiratory wheezing. Medical record reviewed. Last round of ATB/Steroid was 01/01/23. Pt didn't complete medication regimen of steroids, started taking prednisone 10mg (4 tablets) tablet left over from last RX yesterday. She has 4 tablets more in her bottle and plans to take them today if she doesn't hear back by 3 pm. Pt requesting that provider send in another RX for antibiotic and steroid. She is willing to come in for appt if necessary, but she would rather not. Pharmacy and allergies verified. Reviewed medication regimen, pt if jesse for duo-neb treatment. Pt plans to take next Duo-neb nebulizer treatment when she gets off the phone. Confirmed that she is still taking her maintenance dose of Pulmicort, formoterol And albuterol twice daily as ordered. R: Message sent to provider for review and recommendation. Please call patient-[facility] [phone] with provider's response. Patient understands care advice. No further needs at this time. Patient instructed to call back with new or worsening symptoms. Reason for Disposition Cough lasts > 3 weeks Protocols used: Cough - [id number] T [facility] 12-06-2022 History of Presen t illness Narrative Images from the original note were not included. [facility] [place] [facility] [facility] [place] [address] [place] [id number] PH: [phone] Visit type: An Established patient 12/06/2022 CHIEF COMPLAINT/REASON FOR REFERRAL: Chief Complaint Patient presents with Follow-up Lung Nodule 3-MONTH APPT EMPHYSEMA HOME O2 History of Present Illness Dayana Briggs is a 72 y.o. 1950 follow-up for chronic respiratory failure on oxygen emphysema lung nodule Patient having some wheezing lately compliant with her inhalers She is on 2 L a cannula saturating well Having wheezing off and on cough with whitish phlegm She denies any chest pain fever chills Reiger abdominal pain blurred vision She had preop pulmonary evaluation done on the last office visit September 06, 2022 however apparently she has not undergone the surgery yet She denies any swelling of the leg no fever no chills no rigor no hemoptysis MMRC Dyspnea Scale: Grade Description of Breathlessness 0 I only get breathless with strenuous exercise. 1 I get short of breath when hurrying on level ground or walking up a slight hill. 2 On level ground, I walk slower than people of the same age because of breathlessness, or have to stop for breath when walking at my own pace. 3 I stop for breath after walking about 100 yards or after a few minutes on level ground. 4 I am too breathless to leave the house or I am breathless when dressing. PastMedical History Past Medical History: Diagnosis Date Asthma 2006 Breast cancer screening 04/2021 COPD (chronic obstructive pulmonary disease) ([facility]) 2013 Home O2 since 2014 Ex-smoker 2008 GERD (gastroesophageal reflux disease) History of idiopathic thrombocytopenic purpura 2005 resolved History of shingles 12/2020 left CN V Hypertension 2003 Hypothyroidism IBS (irritable bowel syndrome) 2000 2008 colonoscopy per [place]- due 2018 Immunoglobulin deficiency (HCC) 2007 monthly IVIG infusion per Dr. Decker [place], [place] Nodule of upper lobe of right lung no change per 07/13 CT Renal stones Past Surgical History Past Surgical History: Procedure Laterality Date APPENDECTOMY CATARACT EXTRACTION W/ INTRAOCULAR LENS IMPLANT Bilateral CHOLECYSTECTOMY 2013 COLONOSCOPY 11/05/2018 Repeat colonoscopy 10 years. COLONOSCOPY 2008-Repeat 2018 DENTAL SURGERY dentures HEMORRHOID SURGERY 1995 MENISCECTOMY Left 07/06/2015 [place] SKIN BIOPSY from left arm, under right breast, and forehead. All negative for CA TONSILLECTOMY (HISTORICAL) TOTAL VAGINAL HYSTERECTOMY 1994 Ovaries intact Allergies Allergies Allergen Reactions Lisinopril Shortness of breath Cough and wheezing Other Other Ampicillin Other reaction(s): Other, stomach issues Aspirin Hives Other reaction(s): U Other reaction(s): U Codeine Other reaction(s): GI Upset sleepy, dizzy Erythromycin unknown reaction Penicillins Other reaction(s): Other (See Comments) Upset stomach Other reaction(s): Other Other reaction(s): U Other reaction(s): Other Other reaction(s): Other, stomach issues Other reaction(s): stomach issues, U unknown reaction Prednisolone Other reaction(s): Other (See Comments) moodiness Sulfa Antibiotics Cephalexin Hives and Rash Other reaction(s): Hives Other reaction(s): U Other reaction(s): Hives Other reaction(s): Hives Other reaction(s): Hives, U Medications Current Outpatient Medications: albuterol (2.5 MG/3ML) 0.083% nebulizer solution, Take 3 mL (2.5 mg) by nebulization every 4 hours as needed for wheezing or shortness of breath., Disp: 75 mL, Rfl: 2 albuterol 108 (90 Base) MCG/ACT inhaler, Inhale 2 puffs every 4 hours as needed for shortness of breath., Disp: 1 each, Rfl: 11 amLODIPine (Norvasc) 5 MG tablet, Take 1 tablet (5 mg) by mouth daily., Disp: 90 tablet, Rfl: 1 budesonide (Pulmicort) 0.5 MG/2ML nebulizer solution, USE 1 VIAL VIA NEBULIZER TWICE A DAY, Disp: 60 mL, Rfl: 2 cholecalciferol (Vitamin D-3) 25 MCG (1000 UT) capsule, Take 1 capsule by mouth in the morning and 1 capsule before bedtime., Disp: , Rfl: formoterol (Perforomist) 20 MCG/2ML nebulizer solution, Take 2 mL (20 mcg) by nebulization in the morning and 2 mL (20 mcg) in the evening., Disp: 60 mL, Rfl: 2 ipratropium (Atrovent) 0.02 % nebulizer solution, INHALE THE CONTENTS OF 1 VIAL VIA NEBULIZER 2 TIMES DAILY, Disp: , Rfl: ipratropium-albuterol (Duo-Neb) 0.5-2.5 mg/3 mL nebulizer solution, Inhale 1 vial., Disp: , Rfl: levothyroxine (Synthroid, Levoxyl) 100 MCG tablet, Take 1 tablet (100 mcg) by mouth daily for 180 doses., Disp: 90 tablet, Rfl: 1 Magnesium 100 MG capsule, Take by mouth., Disp: , Rfl: omeprazole (PriLOSEC) [address] capsule, Take 1 capsule (20 mg) by mouth daily., Disp: 90 capsule, Rfl: 1 Potassium Gluconate 2.5 MEQ tablet, Take by mouth., Disp: , Rfl: spironolactone (Aldactone) 25 MG tablet, Take 1 tablet (25 mg) by mouth daily., Disp: 90 tablet, Rfl: 1 tiotropium (Spiriva HandiHaler) 18 MCG inhalation capsule, Place 1 capsule (18 mcg) into inhaler and inhale daily., Disp: 3 capsule, Rfl: 0 zafirlukast (Accolate) 20 MG tablet, Take 20 mg by mouth in the morning and 20 mg before bedtime., Disp: , Rfl: Social History Social History Tobacco Use Smoking status: Former Packs/day: 2.00 Types: Cigarettes Start date: 09/14/1955 Quit date: 12/01/2008 Years since quittin.0 Smokeless tobacco: Never Substance Use Topics Alcohol use: No Alcohol/week: 0.0 standard drinks of alcohol FamilyHistory Family History Problem Relation Name Age of Onset Other (43374) Sister adrenal issues Rheum arthritis Father 58 No Known Problems Brother No Known Problems Brother High Blood Pressure Mother alive age 90 No Known Problems Sister Heart disease Father 58 age 58 No Known Problems Brother No Known Problems Brother Review of Systems Review of Systems Constitutional: Negative. HENT: Negative. Eyes: Negative. Respiratory: Positive for cough (THICK GREENISH-YELLOW MUCUS), chest tightness, shortness of breath and wheezing (SINUS DRAINAGE). Cardiovascular: Negative. Gastrointestinal: Negative. Endocrine: Negative. Genitourinary: Negative. Musculoskeletal: Negative. Skin: Negative. Allergic/Immunologic: Negative. Neurological: Negative. Hematological: Negative. Psychiatric/Behavioral: Negative. All other systems reviewed and are negative. Physical Exam Vitals: 12/06/22 0955 BP: 130/83 Pulse: 78 Temp: 36.5 C (97.7 F) TempSrc: Temporal SpO2: 95% Weight: 153 lb (69.4 kg) Height: 5' 1 (1.549 m) Physical Exam Vitals reviewed. Constitutional: General: She is not in acute distress. Appearance: Normal appearance. She is normal weight. HENT: Head: Normocephalic. Right Ear: Tympanic membrane, ear canal and external ear normal. There is no impacted cerumen. Left Ear: Tympanic membrane, ear canal and external ear normal. There is no impacted cerumen. Nose: Nose normal. No congestion or rhinorrhea. Mouth/Throat: Mouth: Mucous membranes are moist. Pharynx: Oropharynx is clear. No oropharyngeal exudate or posterior oropharyngeal erythema. Eyes: General: Right eye: No discharge. Left eye: No discharge. Extraocular Movements: Extraocular movements intact. Conjunctiva/sclera: Conjunctivae normal. Pupils: Pupils are equal, round, and reactive to light. Neck: Vascular: No carotid bruit. Cardiovascular: Rate and Rhythm: Normal rate and regular rhythm. Pulses: Normal pulses. Heart sounds: No murmur heard. No friction rub. No gallop. Pulmonary: Effort: Pulmonary effort is normal. No respiratory distress. Breath sounds: No stridor. Wheezing present. No rhonchi or rales. Comments: Occasional end expiratory wheezing Chest: Chest wall: No tenderness. Abdominal: General: Bowel sounds are normal. Palpations: Abdomen is soft. Tenderness: There is no abdominal tenderness. Hernia: A hernia is present. Musculoskeletal: General: No swelling. Cervical back: No rigidity or tenderness. Right lower leg: No edema. Left lower leg: No edema. Lymphadenopathy: Cervical: No cervical adenopathy. Skin: General: Skin is warm. Findings: No lesion or rash. Neurological: General: No focal deficit present. Mental Status: She is alert and oriented to person, place, and time. Motor: No weakness. Psychiatric: Mood and Affect: Mood normal. Behavior: Behavior normal. Thought Content: Thought content normal. Data Reviewed and Summarized LABS and Studies: Available studies were personally reviewed. Salient findings summarized in HPI & A/P Imaging: Available studies were personally reviewed. Salient findings summarized in HPI & A/P PFT's: Pulmonary Functions Testing Results: PFT reviewed Assessment and Plan 1. Chronic respiratory failure with hypoxia (CMS/HCC) ([facility]) Conclusions a cannula titrate FiO2 to keep saturation 90 to 94% 2. Centrilobular emphysema (HCC) Severe disease Having bronchospasm lately we will treat with short course of systemic steroid Inhaler was reviewed and renewed - ipratropium-albuterol (Duo-Neb) 0.5-2.5 mg/3 mL nebulizer solution; Take 3 mL by nebulization 4 times daily as needed for wheezing. Dispense: 30 mL; Refill: 2 - budesonide (Pulmicort) 0.5 MG/2ML nebulizer solution; USE 1 VIAL VIA NEBULIZER TWICE A DAY Dispense: 60 mL; Refill: 2 - formoterol (Perforomist) 20 MCG/2ML nebulizer solution; Take 2 mL (20 mcg) by nebulization in the morning and 2 mL (20 mcg) in the evening. Dispense: 60 mL; Refill: 2 3. Nodule of upper lobe of right lung Stable repeat CT chest in June 2023 4. Preop pulmonary/respiratory exam Patient cleared for proposed surgery from Pulmonary stand point with higher risk Please see my office note of 09/06/2022 for detail 5. Tobacco use disorder, severe, in sustained remission Patient quit smoking 2008 Tay Chavez MD Pulmonary, Critical Care, & Sleep Medicine Portions of the information within this encounter were entered using an electronic dictation system. Best attempts were made to edit/proofread the information prior to note completion. Despite the review of information, some errors may remain. If there are questions related to the information contained within the note please contact documented in this encounter [facility] 12-06-2022 Instructions Jaja Noel - 12/06/2022 10:00 AM EDT YOUR APPOINTMENT TODAY WAS WITH THE [facility], COPD CLINIC, PULMONARY AND SLEEP MEDICINE OFFICE. PLEASE CALL OUR OFFICE AT [phone] for our [place] office location or [phone] for our [place] location, IF YOU HAVE NOT RECEIVED YOUR TEST RESULTS 7 DAYS AFTER TESTING IS COMPLETED. PLEASE REMEMBER TO REQUEST REFILLS AT YOUR OFFICE VISITS. PHONE/FAX REQUESTS REQUIRE 48-72 HOURS FOR RESPONSE. A FRIENDLY REMINDER COPAYS ARE DUE AT TIME OF SERVICE. THANK YOU. Our Patients Are Important! We want to improve and you can help. After your visit we want you to feel: Listened to, Respected and have your health care explained. You may receive a survey asking you about your visit. Please complete the survey. We will use your feedback to make improvements. COVID-19 VACCINATION INFORMATION: . [phone] [email or web address] [facility] Central Scheduling [phone] [facility] Sleep Scheduling [phone] documented in this encounter [facility] 10-11-2022 Telephone encount er Note Medication name: albuterol 108 (90 Base) MCG/ACT inhaler Medication dosage: 108 mcg (Micrograms) Monthly quantity needed: 1 inhaler How many day supply requestin days-3 inhalers at a time Medication route: inhalation (inhaler) Medication administration time(s): Inhale 2 puffs every 4 hours as needed for shortness of breath. If taking medication PRN, reason for taking medication: shortness of breath. If this is a controlled substance do you receive this or any other controlled medication from any other doctor or facility: N/A Ordering provider: Jazmin Moy Date of last office visit: 10/10/22 Date of next office visit: none Date of last refill: (see medication tab): 07/11/22 Updated/Validated preferred pharmacy: Yes [id number] [phone] Patient instructed to contact the pharmacy prior to picking up the medication: Yes [facility] 10-11-2022 Miscellaneous Notes Formattin g of this note might be different from the original. Medication name: albuterol 108 (90 Base) MCG/ACT inhaler Medication dosage: 108 mcg (Micrograms) Monthly quantity needed: 1 inhaler How many day supply requestin days-3 inhalers at a time Medication route: inhalation (inhaler) Medication administration time(s): Inhale 2 puffs every 4 hours as needed for shortness of breath. If taking medication PRN, reason for taking medication: shortness of breath. If this is a controlled substance do you receive this or any other controlled medication from any other doctor or facility: N/A Ordering provider: Jazmin Moy Date of last office visit: 10/10/22 Date of next office visit: none Date of last refill: (see medication tab): 07/11/22 Updated/Validated preferred pharmacy: Yes [facility]/pharmacy #[id number] - [address] [phone] Patient instructed to contact the pharmacy prior to picking up the medication: Yes documented in this encounter [facility] 10-10-2022 History of Presen t illness Narrative Images from the original note were not included. [facility] [address] [facility] [facility] [address] Visit type: Established Patient Reason for Visit: Cough, Fever, and Sore Throat Assessment / Plan: Dayana was seen today for cough, fever and sore throat. Diagnoses and all orders for this visit: COPD exacerbation (HCC) (Primary) Comments: Mild, prednisone and Levaquin Ventral hernia without obstruction or gangrene Comments: Noted, reducible, follow-up with pulmonary for clearance Other orders - levoFLOXacin (Levaquin) 500 MG tablet; Take 1 tablet (500 mg) by mouth daily for 7 days. - predniSONE (Deltasone) 20 MG tablet; Take 3 tabs (60mg) daily for 3 days, then take 2 tabs (40mg) daily for 3 days, then take 1 tab (20mg) daily for 3 days. Subjective: Patient ID: Dayana Briggs is a 72 y.o. female. HPI ex-smoker with history of COPD on oxygen presents with a few days of cough productive of yellow phlegm. Some green rhinorrhea. Low-grade fever. No change in shortness of breath. Able to walk around without O2. Review of Systems No confusion headache or loss of smell or taste. No recent COVID. Eating and voiding well. No PND orthopnea or edema. No abdominal pain. Bowels back to normal from recent diarrhea fluid. Allergies Allergen Reactions Lisinopril Shortness of breath Cough and wheezing Other Other Ampicillin Other reaction(s): Other, stomach issues Aspirin Hives Other reaction(s): U Other reaction(s): U Codeine Other reaction(s): GI Upset sleepy, dizzy Erythromycin unknown reaction Penicillins Other reaction(s): Other (See Comments) Upset stomach Other reaction(s): Other Other reaction(s): U Other reaction(s): Other Other reaction(s): Other, stomach issues Other reaction(s): stomach issues, U unknown reaction Prednisolone Other reaction(s): Other (See Comments) moodiness Sulfa Antibiotics Cephalexin Hives and Rash Other reaction(s): Hives Other reaction(s): U Other reaction(s): Hives Other reaction(s): Hives Other reaction(s): Hives, U Current Outpatient Medications on File Prior to Visit Medication Sig Dispense Refill albuterol (2.5 MG/3ML) 0.083% nebulizer solution Take 3 mL (2.5 mg) by nebulization every 4 hours as needed for wheezing or shortness of breath. 75 mL 2 albuterol 108 (90 Base) MCG/ACT inhaler Inhale 2 puffs every 4 hours as needed for shortness of breath. 1 each 3 amLODIPine (Norvasc) 5 MG tablet Take 1 tablet (5 mg) by mouth daily. 90 tablet 1 budesonide (Pulmicort) 0.5 MG/2ML nebulizer solution USE 1 VIAL VIA NEBULIZER TWICE A DAY 60 mL 2 cholecalciferol (Vitamin D-3) 25 MCG (1000 UT) capsule Take 1 capsule by mouth in the morning and 1 capsule before bedtime. formoterol (Perforomist) 20 MCG/2ML nebulizer solution Take 2 mL (20 mcg) by nebulization in the morning and 2 mL (20 mcg) in the evening. 60 mL 2 ipratropium (Atrovent) 0.02 % nebulizer solution INHALE THE CONTENTS OF 1 VIAL VIA NEBULIZER 2 TIMES DAILY ipratropium-albuterol (Duo-Neb) 0.5-2.5 mg/3 mL nebulizer solution Inhale 1 vial. levothyroxine (Synthroid, Levoxyl) 100 MCG tablet Take 1 tablet (100 mcg) by mouth daily for 180 doses. 90 tablet 1 Magnesium 100 MG capsule Take by mouth. omeprazole (PriLOSEC) [address] capsule Take 1 capsule (20 mg) by mouth daily. 90 capsule 1 Potassium Gluconate 2.5 MEQ tablet Take by mouth. spironolactone (Aldactone) 25 MG tablet Take 1 tablet (25 mg) by mouth daily. 90 tablet 1 tiotropium (Spiriva HandiHaler) [address] 1 capsule (18 mcg) into inhaler and inhale daily. 3 capsule 0 zafirlukast (Accolate) 20 MG tablet Take 20 mg by mouth in the morning and 20 mg before bedtime. [] loperamide (Imodium A-D) 2 MG tablet Take 1-2 tablets (2-4 mg) by mouth 3 times daily as needed for diarrhea for up to 10 days. (Patient not taking: Reported on 10/10/2022) 20 tablet 0 [DISCONTINUED] amoxicillin-clavulanate (Augmentin) 875-125 MG tablet Take 1 tablet by mouth in the morning and 1 tablet in the evening. No current facility-administered medications on file prior to visit. Patient Active Problem List Diagnosis Centrilobular emphysema (HCC) Post herpetic neuralgia History of shingles Hypothyroidism Chronic respiratory failure with hypoxia (CMS/HCC) (HCC) Immunoglobulin deficiency (HCC) Hypertension Tobacco use disorder, severe, in sustained remission Nodule of upper lobe of right lung IBS (irritable bowel syndrome) Primary osteoarthritis of left knee Social History Tobacco Use Smoking status: Former Packs/day: 2.00 Types: Cigarettes Start date: 09/14/1953 Quit date: 12/01/2008 Years since quittin.8 Smokeless tobacco: Never Substance Use Topics Alcohol use: No Alcohol/week: 0.0 standard drinks of alcohol Past Surgical History: Procedure Laterality Date APPENDECTOMY CATARACT EXTRACTION W/ INTRAOCULAR LENS IMPLANT Bilateral CHOLECYSTECTOMY 2012 COLONOSCOPY 11/05/2018 Repeat colonoscopy 10 years. COLONOSCOPY 2008 [place]-Repeat due 2018 DENTAL SURGERY dentures HEMORRHOID SURGERY 1995 MENISCECTOMY Left 07/06/2015 [place] SKIN BIOPSY from left arm, under right breast, and forehead. All negative for CA TONSILLECTOMY (HISTORICAL) TOTAL VAGINAL HYSTERECTOMY 1994 Ovaries intact Family History Problem Relation Name Age of Onset Other (56774) Sister adrenal issues Rheum arthritis Father 58 No Known Problems Brother No Known Problems Brother High Blood Pressure Mother alive age 90 No Known Problems Sister Heart disease Father 58 age 58 No Known Problems Brother No Known Problems Brother Objective: BP 130/82 (BP Location: Left arm, Patient Position: Sitting, BP Cuff Size: Large adult) Pulse 88 Temp 37.4 C (99.3 F) (Temporal) Ht 5' 1 (1.549 m) Wt 154 lb (69.9 kg) SpO2 96% BMI 29.10 kg/m Physical Exam Pleasant cooperative. Well-hydrated. Clear PND. Slightly injected oropharynx. No neck adenopathy. No retractions. Heart is regular without ectopy. Lungs are with coarse crackles in the bases but no egophony wheezing or rhonchi. Abdomen soft nontender without pain hepatosplenomegaly masses or ascites. Patient is a pink without edema documented in this encounter [facility] 09-26-2022 History of Presen t illness Narrative Images from the original note were not included. [facility] [address] [facility] [facility] [address] Dept: [phone] Dept Loc: [phone] Visit type: Established Patient Reason for Visit: Diarrhea (X 4 days ) Assessment and Plan 1. Diarrhea, unspecified type - loperamide (Imodium A-D) 2 MG tablet; Take 1-2 tablets (2-4 mg) by mouth 3 times daily as needed for diarrhea for up to 10 days., Starting Sun09/26/2022, Until Sun10/06/2022 at 2359, Normal -Acute diarrheal illness suspect viral in etiology as daughter has similar symptoms. - No signs of an acute surgical abdomen no signs of obstruction or incarceration no acute peritonitis. Will consider x-ray and baseline labs if symptoms not improving in the next 2 to 3 days. - Encouraged to increase clear liquid intake keep yourself hydrated report any changes. Follow up in about 3 days (around 09/29/2022) for Recheck. Subjective HPI this is a 72-year-old female contacted the [facility] for immediate same-day evaluation regarding alleged fever and diarrhea. States symptoms started approximate 2 days ago. She has been using Kaopectate with some mild relief. Mostly water coming out, stools very soft, daughter sick with diarrhea as well, No recent antibiotics, in last 2 months, no recent travel. No abdominal pain, gets cramps just prior to moving bowels. Does have some acid reflux and responds to omeprazole as well. Patient didn't eat today, stating no time to eat. No urinary symptoms, she denies any fever chills rigors. Denies any current abdominal pain. Denies any chest pain palpitations. Her and her daughter although have similar symptoms they do live together they have not eaten the same foods allegedly. She did state it was more water at 1 point time it seems to be getting more solid and she states there is some soft stool associated with the water. She denies any associated melena hematochezia no hemoptysis or hematemesis. Review of Systems Constitutional: Negative for chills and fever. HENT: Negative for congestion and sore throat. Respiratory: Negative for cough and shortness of breath. Cardiovascular: Negative for chest pain. Gastrointestinal: Positive for diarrhea. Negative for abdominal pain, nausea and vomiting. Genitourinary: Negative for difficulty urinating, dysuria, frequency and urgency. Musculoskeletal: Negative for back pain. Neurological: Negative for dizziness and light-headedness. All other systems reviewed and are negative. Allergies Allergen Reactions Lisinopril Shortness of breath Cough and wheezing Other Other Aspirin Hives Other reaction(s): U Other reaction(s): U Codeine Other reaction(s): GI Upset sleepy, dizzy Erythromycin unknown reaction Penicillins Other reaction(s): Other (See Comments) Upset stomach Other reaction(s): Other Other reaction(s): U Other reaction(s): Other Other reaction(s): Other, stomach issues Other reaction(s): stomach issues, U unknown reaction Prednisolone Other reaction(s): Other (See Comments) moodiness Sulfa Antibiotics Cephalexin Hives and Rash Other reaction(s): Hives Other reaction(s): U Other reaction(s): Hives Other reaction(s): Hives Other reaction(s): Hives, U Outpatient Medications Prior to Visit Medication Sig Dispense Refill albuterol (2.5 MG/3ML) 0.083% nebulizer solution Take 3 mL (2.5 mg) by nebulization every 4 hours as needed for wheezing or shortness of breath. 75 mL 2 albuterol 108 (90 Base) MCG/ACT inhaler Inhale 2 puffs every 4 hours as needed for shortness of breath. 1 each 3 amLODIPine (Norvasc) 5 MG tablet Take 1 tablet (5 mg) by mouth daily. 90 tablet 1 amoxicillin-clavulanate (Augmentin) 875-125 MG tablet Take 1 tablet by mouth in the morning and 1 tablet in the evening. budesonide (Pulmicort) 0.5 MG/2ML nebulizer solution USE 1 VIAL VIA NEBULIZER TWICE A DAY 60 mL 2 cholecalciferol (Vitamin D-3) 25 MCG (1000 UT) capsule Take 1 capsule by mouth in the morning and 1 capsule before bedtime. formoterol (Perforomist) 20 MCG/2ML nebulizer solution Take 2 mL (20 mcg) by nebulization in the morning and 2 mL (20 mcg) in the evening. 60 mL 2 ipratropium (Atrovent) 0.02 % nebulizer solution INHALE THE CONTENTS OF 1 VIAL VIA NEBULIZER 2 TIMES DAILY ipratropium-albuterol (Duo-Neb) 0.5-2.5 mg/3 mL nebulizer solution Inhale 1 vial. levothyroxine (Synthroid, Levoxyl) 100 MCG tablet Take 1 tablet (100 mcg) by mouth daily for 180 doses. 90 tablet 1 Magnesium 100 MG capsule Take by mouth. omeprazole (PriLOSEC) [address] capsule Take 1 capsule (20 mg) by mouth daily. 90 capsule 1 Potassium Gluconate 2.5 MEQ tablet Take by mouth. spironolactone (Aldactone) 25 MG tablet Take 1 tablet (25 mg) by mouth daily. 90 tablet 1 tiotropium (Spiriva HandiHaler) [address] 1 capsule (18 mcg) into inhaler and inhale daily. 3 capsule 0 zafirlukast (Accolate) 20 MG tablet Take 20 mg by mouth in the morning and 20 mg before bedtime. No facility-administered medications prior to visit. Past Medical History: Diagnosis Date Asthma 2006 Breast cancer screening 04/2021 COPD (chronic obstructive pulmonary disease) ([facility]) 2013 Home O2 since 2014 Ex-smoker 2008 GERD (gastroesophageal reflux disease) History of idiopathic thrombocytopenic purpura 2006 resolved History of shingles 12/2020 left CN V Hypertension 2003 Hypothyroidism IBS (irritable bowel syndrome) 2000 2008 colonoscopy per - 2018 Immunoglobulin deficiency (HCC) 2007 monthly IVIG infusion per Dr. Decker, [place], [place] Renal stones Social History Tobacco Use Smoking status: Former Packs/day: 2.00 Types: Cigarettes Start date: 09/14/1953 Quit date: 12/01/2008 Years since quittin.8 Smokeless tobacco: Never Substance Use Topics Alcohol use: No Alcohol/week: 0.0 standard drinks of alcohol Past Surgical History: Procedure Laterality Date APPENDECTOMY CATARACT EXTRACTION W/ INTRAOCULAR LENS IMPLANT Bilateral CHOLECYSTECTOMY 2013 COLONOSCOPY 11/05/2018 Repeat colonoscopy 10 years. COLONOSCOPY 2008-Repeat 2018 DENTAL SURGERY dentures HEMORRHOID SURGERY 1994 MENISCECTOMY Left 07/06/2015 [facility] SKIN BIOPSY from left arm, under right breast, and forehead. All negative for CA TONSILLECTOMY (HISTORICAL) TOTAL VAGINAL HYSTERECTOMY 1994 Ovaries intact Family History Problem Relation Name Age of Onset Other (33880) Sister adrenal issues Rheum arthritis Father 58 No Known Problems Brother No Known Problems Brother High Blood Pressure Mother alive age 90 No Known Problems Sister Heart disease Father 58 age 58 No Known Problems Brother No Known Problems Brother Objective BP (!) 168/75 (BP Location: Left arm, Patient Position: Sitting, BP Cuff Size: Large adult) Pulse 86 Temp 36.7 C (98 F) (Temporal) Ht 5' 1 (1.549 m) Wt 153 lb (69.4 kg) SpO2 93% BMI 28.91 kg/m Physical Exam Vitals reviewed. Constitutional: General: She is not in acute distress. Appearance: Normal appearance. She is not ill-appearing or toxic-appearing. Eyes: General: No scleral icterus. Conjunctiva/sclera: Conjunctivae normal. Pupils: Pupils are equal, round, and reactive to light. Cardiovascular: Rate and Rhythm: Normal rate and regular rhythm. Heart sounds: Normal heart sounds. Pulmonary: Effort: Pulmonary effort is normal. No respiratory distress. Breath sounds: Wheezing present. Abdominal: Palpations: Abdomen is soft. There is no mass. Tenderness: There is abdominal tenderness (chronic tenderness right lower with history of hernia). There is no guarding or rebound. Comments: Hypoactive bowel sounds, Musculoskeletal: Cervical back: Normal range of motion and neck supple. Right lower leg: No edema. Left lower leg: No edema. Skin: General: Skin is warm and dry. Neurological: Mental Status: She is alert. Psychiatric: Mood and Affect: Mood normal. Data Reviewed and Summarized Labs: Imaging/Testing: Jazmin Moy PA-C 09/26/2022 Please note that portions of this note may have been completed with voice recognition software. Documentation reviewed prior to signing but minor errors in internal medicine physician assistant may have occurred. documented in this encounter [facility] 09-26-2022 Telephone encount er Note S: Patient spoke with [facility] nurse regarding diarrhea and fever B: Onset of symptoms/concern 2 days A: Pt endorses fever and dirreah. No noted abdominal pain. Pt endorses using Kaopectate with relief. Denies - dizziness, no urinary issues. R: Scheduled same 09/26/22 at 12:40 PM. Jonh MADDOX. Home care advised given for diarrhea. Patient understands care advice. No further needs at this time. Patient instructed to call back with new or worsening symptoms. Reason for Disposition Patient wants to be seen Protocols used: [id number] [facility] 09-26-2022 Miscellaneous Notes Formattin g of this note might be different from the original. S: Patient spoke with [facility] nurse regarding diarrhea and fever B: Onset of symptoms/concern 2 days A: Pt endorses fever and dirreah. No noted abdominal pain. Pt endorses using Kaopectate with relief. Denies - dizziness, no urinary issues. R: Scheduled same 09/26/22 at 12:40 PM. Jonh MADDOX. Home care advised given for diarrhea. Patient understands care advice. No further needs at this time. Patient instructed to call back with new or worsening symptoms. Reason for Disposition Patient wants to be seen Protocols used: [id number] documented in this encounter [facility] 09-06-2022 History of Presen t illness Narrative Images from the original note were not included. [facility] [place] [place] [facility] [address] [place] [address] PH: [phone] Visit type: An Established patient 09/06/2022 CHIEF COMPLAINT/REASON FOR REFERRAL: Chief Complaint Patient presents with Follow-up SURGERY CLEARANCE Lung Nodule History of Present Illness Dayana Briggs is a 72 y.o. 1950 patient for preop pulmonary evaluation Underlying COPD, chronic respiratory failure on 2 L nasal cannula Patient is being evaluated preoperatively pulmonary evaluation for abdominal hernia surgery Patient is on 2 L nasal cannula oxygen all the time for her severe underlying chronic obstructive pulmonary disease She is on triple inhaler therapy She gets short of breath on minimal exertion Mild cough without any expectoration No fever no chills no rigor No chest pain No hemoptysis She uses her aerosol treatment twice a day Currently she is on a Spiriva Pulmicort aerosol and Perforomist nebulizer twice daily History of lung nodule which has been stable on the last CT chest neck CT chest in June 2023 [facility] Dyspnea Scale: Grade Description of Breathlessness 0 I only get breathless with strenuous exercise. 1 I get short of breath when hurrying on level ground or walking up a slight hill. 2 On level ground, I walk slower than people of the same age because of breathlessness, or have to stop for breath when walking at my own pace. 3 I stop for breath after walking about 100 yards or after a few minutes on level ground. 4 I am too breathless to leave the house or I am breathless when dressing. PastMedical History Past Medical History: Diagnosis Date Asthma 2005 Breast cancer screening 04/2021 COPD (chronic obstructive pulmonary disease) ([facility]) 2013 Home O2 since 2014 Ex-smoker 2009 GERD (gastroesophageal reflux disease) History of idiopathic thrombocytopenic purpura 2006 resolved History of shingles 12/2020 left CN V Hypertension 2003 Hypothyroidism IBS (irritable bowel syndrome) 2000 2008 colonoscopy per Turowski- due 2018 Immunoglobulin deficiency (HCC) 2008 monthly IVIG infusion per Dr. Decker, [place], [place] Renal stones Past Surgical History Past Surgical History: Procedure Laterality Date APPENDECTOMY CATARACT EXTRACTION W/ INTRAOCULAR LENS IMPLANT Bilateral CHOLECYSTECTOMY 2013 COLONOSCOPY 11/05/2018 Repeat colonoscopy 10 years. COLONOSCOPY 2008-Repeat due 2018 DENTAL SURGERY dentures HEMORRHOID SURGERY 1995 MENISCECTOMY Left 07/06/2015 [facility] SKIN BIOPSY from left arm, under right breast, and forehead. All negative for CA TONSILLECTOMY (HISTORICAL) TOTAL VAGINAL HYSTERECTOMY 1994 Ovaries intact Allergies Allergies Allergen Reactions Lisinopril Shortness of breath Cough and wheezing Other Other Aspirin Hives Other reaction(s): U Other reaction(s): U Codeine Other reaction(s): GI Upset sleepy, dizzy Erythromycin unknown reaction Penicillins Other reaction(s): Other (See Comments) Upset stomach Other reaction(s): Other Other reaction(s): U Other reaction(s): Other Other reaction(s): Other, stomach issues Other reaction(s): stomach issues, U unknown reaction Prednisolone Other reaction(s): Other (See Comments) moodiness Sulfa Antibiotics Cephalexin Hives and Rash Other reaction(s): Hives Other reaction(s): U Other reaction(s): Hives Other reaction(s): Hives Other reaction(s): Hives, U Medications Current Outpatient Medications: albuterol 108 (90 Base) MCG/ACT inhaler, Inhale 2 puffs every 4 hours as needed for shortness of breath., Disp: 1 each, Rfl: 3 amLODIPine (Norvasc) 5 MG tablet, Take 1 tablet (5 mg) by mouth daily., Disp: 90 tablet, Rfl: 1 amoxicillin-clavulanate (Augmentin) 875-125 MG tablet, Take 1 tablet by mouth in the morning and 1 tablet in the evening., Disp: , Rfl: cholecalciferol (Vitamin D-3) 25 MCG (1000 UT) capsule, Take 1 capsule by mouth in the morning and 1 capsule before bedtime., Disp: , Rfl: ipratropium (Atrovent) 0.02 % nebulizer solution, INHALE THE CONTENTS OF 1 VIAL VIA NEBULIZER 2 TIMES DAILY, Disp: , Rfl: ipratropium-albuterol (Duo-Neb) 0.5-2.5 mg/3 mL nebulizer solution, Inhale 1 vial., Disp: , Rfl: levothyroxine (Synthroid, Levoxyl) 100 MCG tablet, Take 1 tablet (100 mcg) by mouth daily for 180 doses., Disp: 90 tablet, Rfl: 1 Magnesium 100 MG capsule, Take by mouth., Disp: , Rfl: omeprazole (PriLOSEC) [address] capsule, Take 1 capsule (20 mg) by mouth daily., Disp: 90 capsule, Rfl: 1 Potassium Gluconate 2.5 MEQ tablet, Take by mouth., Disp: , Rfl: spironolactone (Aldactone) 25 MG tablet, Take 1 tablet (25 mg) by mouth daily., Disp: 90 tablet, Rfl: 1 zafirlukast (Accolate) 20 MG tablet, Take 20 mg by mouth in the morning and 20 mg before bedtime., Disp: , Rfl: albuterol (2.5 MG/3ML) 0.083% nebulizer solution, Take 3 mL (2.5 mg) by nebulization every 4 hours as needed for wheezing or shortness of breath., Disp: 75 mL, Rfl: 2 budesonide (Pulmicort) 0.5 MG/2ML nebulizer solution, USE 1 VIAL VIA NEBULIZER TWICE A DAY, Disp: 60 mL, Rfl: 2 formoterol (Perforomist) 20 MCG/2ML nebulizer solution, Take 2 mL (20 mcg) by nebulization in the morning and 2 mL (20 mcg) in the evening., Disp: 60 mL, Rfl: 2 tiotropium (Spiriva HandiHaler) 18 MCG inhalation capsule, Place 1 capsule (18 mcg) into inhaler and inhale daily., Disp: 3 capsule, Rfl: 0 Social History Social History Tobacco Use Smoking status: Former Packs/day: 2.00 Types: Cigarettes Start date: 09/14/1955 Quit date: 12/01/2008 Years since quittin.7 Smokeless tobacco: Never Substance Use Topics Alcohol use: No Alcohol/week: 0.0 standard drinks FamilyHistory Family History Problem Relation Name Age of Onset Other (31462) Sister adrenal issues Rheum arthritis Father 58 No Known Problems Brother No Known Problems Brother High Blood Pressure Mother alive age 90 No Known Problems Sister Heart disease Father 58 age 58 No Known Problems Brother No Known Problems Brother Review of Systems Review of Systems Constitutional: Negative. HENT: Negative. Eyes: Negative. Respiratory: Positive for cough (PRODUCTIVE PHLEGM) and shortness of breath. Cardiovascular: Negative. Gastrointestinal: Negative. Endocrine: Negative. Genitourinary: Negative. Musculoskeletal: Negative. Skin: Negative. Allergic/Immunologic: Negative. Neurological: Negative. Hematological: Negative. Psychiatric/Behavioral: Negative. All other systems reviewed and are negative. Physical Exam Vitals: 09/06/22 1035 BP: 131/74 Pulse: 88 Temp: 36.3 C (97.3 F) TempSrc: Temporal SpO2: 93% Weight: 156 lb 12.8 oz (71.1 kg) Height: 5' 1 (1.549 m) Physical Exam Vitals reviewed. Constitutional: General: She is not in acute distress. Appearance: Normal appearance. She is normal weight. HENT: Head: Normocephalic. Right Ear: Tympanic membrane, ear canal and external ear normal. There is no impacted cerumen. Left Ear: Tympanic membrane, ear canal and external ear normal. There is no impacted cerumen. Nose: Nose normal. No congestion or rhinorrhea. Mouth/Throat: Mouth: Mucous membranes are moist. Pharynx: Oropharynx is clear. No oropharyngeal exudate or posterior oropharyngeal erythema. Eyes: General: Right eye: No discharge. Left eye: No discharge. Extraocular Movements: Extraocular movements intact. Conjunctiva/sclera: Conjunctivae normal. Pupils: Pupils are equal, round, and reactive to light. Neck: Vascular: No carotid bruit. Cardiovascular: Rate and Rhythm: Normal rate and regular rhythm. Pulses: Normal pulses. Heart sounds: No murmur heard. No friction rub. No gallop. Pulmonary: Effort: Pulmonary effort is normal. No respiratory distress. Breath sounds: No stridor. Wheezing present. No rhonchi or rales. Comments: Occasional end expiratory wheezing Chest: Chest wall: No tenderness. Abdominal: General: Bowel sounds are normal. Palpations: Abdomen is soft. Tenderness: There is no abdominal tenderness. Hernia: A hernia is present. Musculoskeletal: General: No swelling. Cervical back: No rigidity or tenderness. Right lower leg: No edema. Left lower leg: No edema. Lymphadenopathy: Cervical: No cervical adenopathy. Skin: General: Skin is warm. Findings: No lesion or rash. Neurological: General: No focal deficit present. Mental Status: She is alert and oriented to person, place, and time. Motor: No weakness. Psychiatric: Mood and Affect: Mood normal. Behavior: Behavior normal. Thought Content: Thought content normal. Data Reviewed and Summarized LABS and Studies: Available studies were personally reviewed. Salient findings summarized in HPI & A/P Imaging: Available studies were personally reviewed. Salient findings summarized in HPI & A/P IMPRESSION: 1. Advanced emphysematous changes. 2. Stable 1.3 x 0.9 cm nodule in the right upper lobe. 3. Healing right-sided rib fractures (6th, 7th, 8th, and 10th). 4. No pneumothorax. 5. Right renal cyst. Report Dictated on Electronically Signed By: Forrest Harper Electronically Signed Date/Time: 07/23/2022 6:58 PM EDT PFT's: Pulmonary Functions Testing Results: PHYSICIAN INTERPRETATION The quality of the study is good. The flow volume loop is markedly coved with an abrupt fall in expiratory flows consistent with dynamic airway collapse. There is a very severe obstructive ventilatory defect with samll airways disease, a significant bronchodilator response, air trapping, and impaired gas exchange. Assessment and Plan 1. Preop pulmonary/respiratory exam Patient with history of severe COPD chronic respiratory failure oxygen dependent history of smoking in the past will be at the high risk than average for perioperative pulmonary complication including Atelectasis of lung Oxygen desaturation Pneumonia Need for mechanical ventilation To optimize perioperative care would suggest Maximization of bronchodilator therapy Aggressive pulmonary toilet Incentive spirometry Close monitoring and maintaining oxygen saturation above 92 percentile 2. Chronic respiratory failure with hypoxia (CMS/HCC) ([facility]) Patient on 2 L nasal cannula Titrate FiO2 to keep saturation between 90 to 94% and 3. Centrilobular emphysema ([facility]) Severe disease Stable on current triple inhaler therapy Medication reviewed renewed - albuterol (2.5 MG/3ML) 0.083% nebulizer solution; Take 3 mL (2.5 mg) by nebulization every 4 hours as needed for wheezing or shortness of breath. Dispense: 75 mL; Refill: 2 - tiotropium (Spiriva HandiHaler) 18 MCG inhalation capsule; Place 1 capsule (18 mcg) into inhaler and inhale daily. Dispense: 3 capsule; Refill: 0 - formoterol (Perforomist) 20 MCG/2ML nebulizer solution; Take 2 mL (20 mcg) by nebulization in the morning and 2 mL (20 mcg) in the evening. Dispense: 60 mL; Refill: 2 - budesonide (Pulmicort) 0.5 MG/2ML nebulizer solution; USE 1 VIAL VIA NEBULIZER TWICE A DAY Dispense: 60 mL; Refill: 2 4. Lung nodule Stable lung nodule on previous CAT scan of the chest Next CT chest due in June 2023 5. Tobacco use disorder, severe, in sustained remission History of smoking in the past quit several years ago 6. Immunoglobulin deficiency ([facility]) Receive immunoglobulin infusion every month Tay Chavez MD Pulmonary, Critical Care, & Sleep Medicine Portions of the information within this encounter were entered using an electronic dictation system. Best attempts were made to edit/proofread the information prior to note completion. Despite the review of information, some errors may remain. If there are questions related to the information contained within the note please contact the documented in this encounter [facility] 09-06-2022 History of Presen t illness Narrative Images from the original note were not included. [facility] [place] [place] [facility] [address] [place] [address] PH: [phone] Visit type: An Established patient 09/06/2022 CHIEF COMPLAINT/REASON FOR REFERRAL: Chief Complaint Patient presents with Follow-up SURGERY CLEARANCE Lung Nodule History of Present Illness Dayana Briggs is a 72 y.o. 1950 patient for preop pulmonary evaluation Underlying COPD, chronic respiratory failure on 2 L nasal cannula Patient is being evaluated preoperatively pulmonary evaluation for abdominal hernia surgery Patient is on 2 L nasal cannula oxygen all the time for her severe underlying chronic obstructive pulmonary disease She is on triple inhaler therapy She gets short of breath on minimal exertion Mild cough without any expectoration No fever no chills no rigor No chest pain No hemoptysis She uses her aerosol treatment twice a day Currently she is on a Spiriva Pulmicort aerosol and Perforomist nebulizer twice daily History of lung nodule which has been stable on the last CT chest neck CT chest in June 2023 [facility] Dyspnea Scale: Grade Description of Breathlessness 0 I only get breathless with strenuous exercise. 1 I get short of breath when hurrying on level ground or walking up a slight hill. 2 On level ground, I walk slower than people of the same age because of breathlessness, or have to stop for breath when walking at my own pace. 3 I stop for breath after walking about 100 yards or after a few minutes on level ground. 4 I am too breathless to leave the house or I am breathless when dressing. PastMedical History Past Medical History: Diagnosis Date Asthma 2006 Breast cancer screening 04/2021 COPD (chronic obstructive pulmonary disease) ([facility]) 2014 Home O2 since 2014 Ex-smoker 2008 GERD (gastroesophageal reflux disease) History of idiopathic thrombocytopenic purpura 2006 resolved History of shingles 12/2020 left CN V Hypertension 2004 Hypothyroidism IBS (irritable bowel syndrome) 2000 2008 colonoscopy per Jose- due 2019 Immunoglobulin deficiency (HCC) 2008 monthly IVIG infusion per Dr. Decker, [place], [place] Renal stones Past Surgical History Past Surgical History: Procedure Laterality Date APPENDECTOMY CATARACT EXTRACTION W/ INTRAOCULAR LENS IMPLANT Bilateral CHOLECYSTECTOMY 2013 COLONOSCOPY 11/05/2018 Repeat colonoscopy 10 years. COLONOSCOPY 2009 [facility]-Repeat due 2019 DENTAL SURGERY dentures HEMORRHOID SURGERY 1995 MENISCECTOMY Left 07/06/2015 [facility] SKIN BIOPSY from left arm, under right breast, and forehead. All negative for CA TONSILLECTOMY (HISTORICAL) TOTAL VAGINAL HYSTERECTOMY 1994 Ovaries intact Allergies Allergies Allergen Reactions Lisinopril Shortness of breath Cough and wheezing Other Other Aspirin Hives Other reaction(s): U Other reaction(s): U Codeine Other reaction(s): GI Upset sleepy, dizzy Erythromycin unknown reaction Penicillins Other reaction(s): Other (See Comments) Upset stomach Other reaction(s): Other Other reaction(s): U Other reaction(s): Other Other reaction(s): Other, stomach issues Other reaction(s): stomach issues, U unknown reaction Prednisolone Other reaction(s): Other (See Comments) moodiness Sulfa Antibiotics Cephalexin Hives and Rash Other reaction(s): Hives Other reaction(s): U Other reaction(s): Hives Other reaction(s): Hives Other reaction(s): Hives, U Medications Current Outpatient Medications: albuterol 108 (90 Base) MCG/ACT inhaler, Inhale 2 puffs every 4 hours as needed for shortness of breath., Disp: 1 each, Rfl: 3 amLODIPine (Norvasc) 5 MG tablet, Take 1 tablet (5 mg) by mouth daily., Disp: 90 tablet, Rfl: 1 amoxicillin-clavulanate (Augmentin) 875-125 MG tablet, Take 1 tablet by mouth in the morning and 1 tablet in the evening., Disp: , Rfl: cholecalciferol (Vitamin D-3) 25 MCG (1000 UT) capsule, Take 1 capsule by mouth in the morning and 1 capsule before bedtime., Disp: , Rfl: ipratropium (Atrovent) 0.02 % nebulizer solution, INHALE THE CONTENTS OF 1 VIAL VIA NEBULIZER 2 TIMES DAILY, Disp: , Rfl: ipratropium-albuterol (Duo-Neb) 0.5-2.5 mg/3 mL nebulizer solution, Inhale 1 vial., Disp: , Rfl: levothyroxine (Synthroid, Levoxyl) 100 MCG tablet, Take 1 tablet (100 mcg) by mouth daily for 180 doses., Disp: 90 tablet, Rfl: 1 Magnesium 100 MG capsule, Take by mouth., Disp: , Rfl: omeprazole (PriLOSEC) [address] capsule, Take 1 capsule (20 mg) by mouth daily., Disp: 90 capsule, Rfl: 1 Potassium Gluconate 2.5 MEQ tablet, Take by mouth., Disp: , Rfl: spironolactone (Aldactone) 25 MG tablet, Take 1 tablet (25 mg) by mouth daily., Disp: 90 tablet, Rfl: 1 zafirlukast (Accolate) 20 MG tablet, Take 20 mg by mouth in the morning and 20 mg before bedtime., Disp: , Rfl: albuterol (2.5 MG/3ML) 0.083% nebulizer solution, Take 3 mL (2.5 mg) by nebulization every 4 hours as needed for wheezing or shortness of breath., Disp: 75 mL, Rfl: 2 budesonide (Pulmicort) 0.5 MG/2ML nebulizer solution, USE 1 VIAL VIA NEBULIZER TWICE A DAY, Disp: 60 mL, Rfl: 2 formoterol (Perforomist) 20 MCG/2ML nebulizer solution, Take 2 mL (20 mcg) by nebulization in the morning and 2 mL (20 mcg) in the evening., Disp: 60 mL, Rfl: 2 tiotropium (Spiriva HandiHaler) 18 MCG inhalation capsule, Place 1 capsule (18 mcg) into inhaler and inhale daily., Disp: 3 capsule, Rfl: 0 Social History Social History Tobacco Use Smoking status: Former Packs/day: 2.00 Types: Cigarettes Start date: 09/14/1955 Quit date: 12/01/2008 Years since quittin.7 Smokeless tobacco: Never Substance Use Topics Alcohol use: No Alcohol/week: 0.0 standard drinks FamilyHistory Family History Problem Relation Name Age of Onset Other (78678) Sister adrenal issues Rheum arthritis Father 58 No Known Problems Brother No Known Problems Brother High Blood Pressure Mother alive age 90 No Known Problems Sister Heart disease Father 58 age 58 No Known Problems Brother No Known Problems Brother Review of Systems Review of Systems Constitutional: Negative. HENT: Negative. Eyes: Negative. Respiratory: Positive for cough (PRODUCTIVE PHLEGM) and shortness of breath. Cardiovascular: Negative. Gastrointestinal: Negative. Endocrine: Negative. Genitourinary: Negative. Musculoskeletal: Negative. Skin: Negative. Allergic/Immunologic: Negative. Neurological: Negative. Hematological: Negative. Psychiatric/Behavioral: Negative. All other systems reviewed and are negative. Physical Exam Vitals: 09/06/22 1035 BP: 131/74 Pulse: 88 Temp: 36.3 C (97.3 F) TempSrc: Temporal SpO2: 93% Weight: 156 lb 12.8 oz (71.1 kg) Height: 5' 1 (1.549 m) Physical Exam Vitals reviewed. Constitutional: General: She is not in acute distress. Appearance: Normal appearance. She is normal weight. HENT: Head: Normocephalic. Right Ear: Tympanic membrane, ear canal and external ear normal. There is no impacted cerumen. Left Ear: Tympanic membrane, ear canal and external ear normal. There is no impacted cerumen. Nose: Nose normal. No congestion or rhinorrhea. Mouth/Throat: Mouth: Mucous membranes are moist. Pharynx: Oropharynx is clear. No oropharyngeal exudate or posterior oropharyngeal erythema. Eyes: General: Right eye: No discharge. Left eye: No discharge. Extraocular Movements: Extraocular movements intact. Conjunctiva/sclera: Conjunctivae normal. Pupils: Pupils are equal, round, and reactive to light. Neck: Vascular: No carotid bruit. Cardiovascular: Rate and Rhythm: Normal rate and regular rhythm. Pulses: Normal pulses. Heart sounds: No murmur heard. No friction rub. No gallop. Pulmonary: Effort: Pulmonary effort is normal. No respiratory distress. Breath sounds: No stridor. Wheezing present. No rhonchi or rales. Comments: Occasional end expiratory wheezing Chest: Chest wall: No tenderness. Abdominal: General: Bowel sounds are normal. Palpations: Abdomen is soft. Tenderness: There is no abdominal tenderness. Hernia: A hernia is present. Musculoskeletal: General: No swelling. Cervical back: No rigidity or tenderness. Right lower leg: No edema. Left lower leg: No edema. Lymphadenopathy: Cervical: No cervical adenopathy. Skin: General: Skin is warm. Findings: No lesion or rash. Neurological: General: No focal deficit present. Mental Status: She is alert and oriented to person, place, and time. Motor: No weakness. Psychiatric: Mood and Affect: Mood normal. Behavior: Behavior normal. Thought Content: Thought content normal. Data Reviewed and Summarized LABS and Studies: Available studies were personally reviewed. Salient findings summarized in HPI & A/P Imaging: Available studies were personally reviewed. Salient findings summarized in HPI & A/P IMPRESSION: 1. Advanced emphysematous changes. 2. Stable 1.3 x 0.9 cm nodule in the right upper lobe. 3. Healing right-sided rib fractures (6th, 7th, 8th, and 10th). 4. No pneumothorax. 5. Right renal cyst. Report Dictated on Electronically Signed By: Forrest Harper Electronically Signed Date/Time: 07/23/2022 6:58 PM EDT PFT's: Pulmonary Functions Testing Results: PHYSICIAN INTERPRETATION The quality of the study is good. The flow volume loop is markedly coved with an abrupt fall in expiratory flows consistent with dynamic airway collapse. There is a very severe obstructive ventilatory defect with samll airways disease, a significant bronchodilator response, air trapping, and impaired gas exchange. Assessment and Plan 1. Preop pulmonary/respiratory exam Patient with history of severe COPD chronic respiratory failure oxygen dependent history of smoking in the past will be at the high risk than average for perioperative pulmonary complication including Atelectasis of lung Oxygen desaturation Pneumonia Need for mechanical ventilation To optimize perioperative care would suggest Maximization of bronchodilator therapy Aggressive pulmonary toilet Incentive spirometry Close monitoring and maintaining oxygen saturation above 92 percentile Patient cleared for surgery with potential risk as noted above 2. Chronic respiratory failure with hypoxia (CMS/HCC) (HCC) Patient on 2 L nasal cannula Titrate FiO2 to keep saturation between 90 to 94% and 3. Centrilobular emphysema (HCC) Severe disease Stable on current triple inhaler therapy Medication reviewed renewed - albuterol (2.5 MG/3ML) 0.083% nebulizer solution; Take 3 mL (2.5 mg) by nebulization every 4 hours as needed for wheezing or shortness of breath. Dispense: 75 mL; Refill: 2 - tiotropium (Spiriva HandiHaler) 18 MCG inhalation capsule; Place 1 capsule (18 mcg) into inhaler and inhale daily. Dispense: 3 capsule; Refill: 0 - formoterol (Perforomist) 20 MCG/2ML nebulizer solution; Take 2 mL (20 mcg) by nebulization in the morning and 2 mL (20 mcg) in the evening. Dispense: 60 mL; Refill: 2 - budesonide (Pulmicort) 0.5 MG/2ML nebulizer solution; USE 1 VIAL VIA NEBULIZER TWICE A DAY Dispense: 60 mL; Refill: 2 4. Lung nodule Stable lung nodule on previous CAT scan of the chest Next CT chest due in June 2023 5. Tobacco use disorder, severe, in sustained remission History of smoking in the past quit several years ago 6. Immunoglobulin deficiency (HCC) Receive immunoglobulin infusion every month Tay Chavez MD Pulmonary, Critical Care, & Sleep Medicine Portions of the information within this encounter were entered using an electronic dictation system. Best attempts were made to edit/proofread the information prior to note completion. Despite the review of information, some errors may remain. If there are questions related to the information contained within the note please contact the documented in this encounter [facility] 09-06-2022 Instructions Jaja Noel - 09/06/2022 10:40 AM EDT YOUR APPOINTMENT TODAY WAS WITH THE [facility], COPD CLINIC, PULMONARY AND SLEEP MEDICINE OFFICE. PLEASE CALL OUR OFFICE AT [phone] for our [place] office location or [phone] for our [place] location, IF YOU HAVE NOT RECEIVED YOUR TEST RESULTS 7 DAYS AFTER TESTING IS COMPLETED. PLEASE REMEMBER TO REQUEST REFILLS AT YOUR OFFICE VISITS. PHONE/FAX REQUESTS REQUIRE 48-72 HOURS FOR RESPONSE. A FRIENDLY REMINDER COPAYS ARE DUE AT TIME OF SERVICE. THANK YOU. Our Patients Are Important! We want to improve and you can help. After your visit we want you to feel: Listened to, Respected and have your health care explained. You may receive a survey asking you about your visit. Please complete the survey. We will use your feedback to make improvements. COVID-19 VACCINATION INFORMATION: PH. [phone] [email or web address] [facility] Central Scheduling [phone] [facility] Sleep Scheduling [phone] documented in this encounter [facility] 09-06-2022 Instructions Jaja Noel - 09/06/2022 10:40 AM EDT YOUR APPOINTMENT TODAY WAS WITH THE [facility], COPD CLINIC, PULMONARY AND SLEEP MEDICINE OFFICE. PLEASE CALL OUR OFFICE AT [phone] for our [place] office location or [phone] for our [place] location, IF YOU HAVE NOT RECEIVED YOUR TEST RESULTS 7 DAYS AFTER TESTING IS COMPLETED. PLEASE REMEMBER TO REQUEST REFILLS AT YOUR OFFICE VISITS. PHONE/FAX REQUESTS REQUIRE 48-72 HOURS FOR RESPONSE. A FRIENDLY REMINDER COPAYS ARE DUE AT TIME OF SERVICE. THANK YOU. Our Patients Are Important! We want to improve and you can help. After your visit we want you to feel: Listened to, Respected and have your health care explained. You may receive a survey asking you about your visit. Please complete the survey. We will use your feedback to make improvements. COVID-19 VACCINATION INFORMATION: PH. [phone] [email or web address] [facility] Central Scheduling [phone] [facility] Sleep Scheduling [phone] documented in this encounter [facility] 08-14-2022 History of Presen t illness Narrative Images from the original note were not included. [facility] [place] [facility] [place] [address] [place] [address] PH: [phone] Visit type: An Established patient 08/14/2022 CHIEF COMPLAINT/REASON FOR REFERRAL: Chief Complaint Patient presents with Follow-up CT RESULTS History of Present Illness Dayana Briggs is a 72 y.o. 1950 follow-up for chronic respiratory failure emphysema lung nodule and COPD exacerbation Patient having wheezing and cough Yurich expectoration since last week audible wheezing increasing shortness of breath She denies any fever chills Reiger swelling of the leg Yellowish phlegm no hemoptysis hematemesis melena hematuria She had fractured rib recently treated conservatively CT of the chest from June 2022 was reviewed stable 1.3 and 2.9 cm right upper lobe nodule Underlying emphysema Not much change stable She quit smoking 2008 PFT in October 2021 showed severe COPD with air trapping and impaired gas exchange MMRC Dyspnea Scale: Grade Description of Breathlessness 0 I only get breathless with strenuous exercise. 1 I get short of breath when hurrying on level ground or walking up a slight hill. 2 On level ground, I walk slower than people of the same age because of breathlessness, or have to stop for breath when walking at my own pace. 3 I stop for breath after walking about 100 yards or after a few minutes on level ground. 4 I am too breathless to leave the house or I am breathless when dressing. PastMedical History Past Medical History: Diagnosis Date Asthma 2006 Breast cancer screening 04/2021 COPD (chronic obstructive pulmonary disease) (HCC) 2013 Home O2 since 2014 Ex-smoker 2008 GERD (gastroesophageal reflux disease) History of idiopathic thrombocytopenic purpura 2006 resolved History of shingles 12/2020 left CN V Hypertension 2003 Hypothyroidism IBS (irritable bowel syndrome) 2000 2008 colonoscopy per Turowski- due 2018 Immunoglobulin deficiency (HCC) 2007 monthly IVIG infusion per Dr. Decker, [place], [place] Renal stones Past Surgical History Past Surgical History: Procedure Laterality Date APPENDECTOMY ATRIAL ABLATION SURGERY 2012 CATARACT EXTRACTION W/ INTRAOCULAR LENS IMPLANT Bilateral COLONOSCOPY 11/05/2018 Repeat colonoscopy 10 years. COLONOSCOPY 2008owski-Repeat due 2018 DENTAL SURGERY dentures HEMORRHOID SURGERY 1995 MENISCECTOMY Left 07/06/2015 Damico SKIN BIOPSY from left arm, under right breast, and forehead. All negative for CA TONSILLECTOMY (HISTORICAL) TOTAL VAGINAL HYSTERECTOMY 1994 Ovaries intact Allergies Allergies Allergen Reactions Lisinopril Shortness of breath Cough and wheezing Aspirin Hives Other reaction(s): U Other reaction(s): U Codeine Other reaction(s): GI Upset sleepy, dizzy Erythromycin unknown reaction Penicillins Other reaction(s): Other (See Comments) Upset stomach Other reaction(s): Other Other reaction(s): U Other reaction(s): Other Other reaction(s): Other, stomach issues Other reaction(s): stomach issues, U unknown reaction Prednisolone Other reaction(s): Other (See Comments) moodiness Sulfa Antibiotics Cephalexin Hives and Rash Other reaction(s): Hives Other reaction(s): U Other reaction(s): Hives Other reaction(s): Hives Other reaction(s): Hives, U Medications Current Outpatient Medications: albuterol (2.5 MG/3ML) 0.083% nebulizer solution, Take 3 mL (2.5 mg) by nebulization as needed for wheezing or shortness of breath., Disp: 75 mL, Rfl: 2 albuterol 108 (90 Base) MCG/ACT inhaler, Inhale 2 puffs every 4 hours as needed for shortness of breath., Disp: 1 each, Rfl: 3 amLODIPine (Norvasc) 5 MG tablet, Take 1 tablet (5 mg) by mouth daily., Disp: 90 tablet, Rfl: 1 amoxicillin-clavulanate (Augmentin) 875-125 MG tablet, Take 1 tablet by mouth in the morning and 1 tablet in the evening., Disp: , Rfl: budesonide (Pulmicort) 0.5 MG/2ML nebulizer solution, USE 1 VIAL VIA NEBULIZER TWICE A DAY, Disp: , Rfl: cholecalciferol (Vitamin D-3) 25 MCG (1000 UT) capsule, Take 1 capsule by mouth in the morning and 1 capsule before bedtime., Disp: , Rfl: formoterol (Perforomist) 20 MCG/2ML nebulizer solution, 20 mcg., Disp: , Rfl: ipratropium (Atrovent) 0.02 % nebulizer solution, INHALE THE CONTENTS OF 1 VIAL VIA NEBULIZER 2 TIMES DAILY, Disp: , Rfl: ipratropium-albuterol (Duo-Neb) 0.5-2.5 mg/3 mL nebulizer solution, Inhale 1 vial., Disp: , Rfl: levothyroxine (Synthroid, Levoxyl) 100 MCG tablet, Take 1 tablet (100 mcg) by mouth daily for 180 doses., Disp: 90 tablet, Rfl: 1 Magnesium 100 MG capsule, Take by mouth., Disp: , Rfl: omeprazole (PriLOSEC) [address] capsule, Take 1 capsule (20 mg) by mouth daily., Disp: 90 capsule, Rfl: 1 Potassium Gluconate 2.5 MEQ tablet, Take by mouth., Disp: , Rfl: spironolactone (Aldactone) 25 MG tablet, Take 1 tablet (25 mg) by mouth daily., Disp: 90 tablet, Rfl: 1 tiotropium (Spiriva HandiHaler) 18 MCG inhalation capsule, Place 1 capsule (18 mcg) into inhaler and inhale daily., Disp: 3 capsule, Rfl: 0 zafirlukast (Accolate) 20 MG tablet, Take 20 mg by mouth in the morning and 20 mg before bedtime., Disp: , Rfl: doxycycline (Vibra-Tabs) 100 MG tablet, Take 1 tablet (100 mg) by mouth 2 times daily for 7 days. Take with a full glass of water and do not lie down for at least 30 minutes after., Disp: 14 tablet, Rfl: 0 predniSONE (Deltasone) 10 MG tablet, Take 4 tabs (40mg) daily for 3 days, then 3 tabs (30mg) daily for 3 days, 2 tabs (20mg) daily for 3 days, 1 tab (10 mg) daily for 3 days., Disp: 30 tablet, Rfl: 0 Social History Social History Tobacco Use Smoking status: Former Packs/day: 2.00 Types: Cigarettes Start date: 09/14/1955 Quit date: 12/01/2008 Years since quittin.7 Smokeless tobacco: Never Substance Use Topics Alcohol use: No Alcohol/week: 0.0 standard drinks FamilyHistory Family History Problem Relation Name Age of Onset Other ([address]) Sister adrenal issues Rheum arthritis Father 58 No Known Problems Brother No Known Problems Brother High Blood Pressure Mother alive age 90 No Known Problems Sister Heart disease Father 58 age 58 No Known Problems Brother No Known Problems Brother Review of Systems Review of Systems Constitutional: Negative. HENT: Negative. Eyes: Negative. Respiratory: Positive for cough (SLIGHT PHLEGM), shortness of breath and wheezing. Cardiovascular: Negative. Gastrointestinal: Negative. Endocrine: Negative. Genitourinary: Negative. Musculoskeletal: Negative. Skin: Negative. Allergic/Immunologic: Negative. Neurological: Negative. Hematological: Negative. Psychiatric/Behavioral: Negative. Physical Exam Vitals: 08/14/22 1004 BP: 124/74 Pulse: 84 Temp: 36.4 C (97.5 F) TempSrc: Temporal SpO2: 94% Weight: 156 lb (70.8 kg) Height: 5' 1 (1.549 m) Physical Exam Vitals reviewed. Constitutional: General: She is not in acute distress. Appearance: Normal appearance. She is normal weight. She is not ill-appearing. HENT: Head: Normocephalic and atraumatic. Right Ear: Tympanic membrane, ear canal and external ear normal. Left Ear: Tympanic membrane, ear canal and external ear normal. Nose: Nose normal. No congestion or rhinorrhea. Mouth/Throat: Mouth: Mucous membranes are moist. Pharynx: Oropharynx is clear. No oropharyngeal exudate or posterior oropharyngeal erythema. Eyes: General: Right eye: No discharge. Left eye: No discharge. Extraocular Movements: Extraocular movements intact. Conjunctiva/sclera: Conjunctivae normal. Pupils: Pupils are equal, round, and reactive to light. Neck: Vascular: No carotid bruit. Cardiovascular: Rate and Rhythm: Normal rate and regular rhythm. Pulses: Normal pulses. Heart sounds: Normal heart sounds. No murmur heard. No friction rub. No gallop. Pulmonary: Effort: Pulmonary effort is normal. No respiratory distress. Breath sounds: No stridor. Wheezing present. No rhonchi or rales. Chest: Chest wall: No tenderness. Abdominal: General: Bowel sounds are normal. Palpations: Abdomen is soft. Tenderness: There is no abdominal tenderness. Musculoskeletal: General: No swelling. Cervical back: No rigidity or tenderness. Right lower leg: No edema. Left lower leg: No edema. Lymphadenopathy: Cervical: No cervical adenopathy. Skin: General: Skin is warm. Findings: No lesion or rash. Neurological: General: No focal deficit present. Mental Status: She is alert. Motor: No weakness. Gait: Gait normal. Psychiatric: Mood and Affect: Mood normal. Behavior: Behavior normal. Thought Content: Thought content normal. Data Reviewed and Summarized LABS and Studies: Available studies were personally reviewed. Salient findings summarized in HPI & A/P Imaging: Available studies were personally reviewed. Salient findings summarized in HPI & A/P PFT's: Pulmonary Functions Testing Results: Reviewed in history of present illness Assessment and Plan 1. Chronic respiratory failure with hypoxia (CMS/HCC) (HCC) Patient oxygenating well Plan titrate FiO2 to keep saturation 92% Especially on exertion sleep and eating 2. Centrilobular emphysema (HCC) Severe disease PFT in October 2021 was reviewed as above Resume triple inhaler therapy 3. Lung nodule Stable lung nodule on current CT chest Will need repeat CAT scan in June 2023 discussed with the patient 4. Tobacco use disorder, severe, in sustained remission Quit smoking 2008 5. Immunoglobulin deficiency (HCC) Received immunoglobulin infusion 6. COPD exacerbation (HCC) Patient with bronchospasm and exacerbation of COPD We will treat with short course of a steroid and doxycycline Patient aware of potential side effects of steroid and agreed to take it - doxycycline (Vibra-Tabs) 100 MG tablet; Take 1 tablet (100 mg) by mouth 2 times daily for 7 days. Take with a full glass of water and do not lie down for at least 30 minutes after. Dispense: 14 tablet; Refill: 0 - predniSONE (Deltasone) 10 MG tablet; Take 4 tabs (40mg) daily for 3 days, then 3 tabs (30mg) daily for 3 days, 2 tabs (20mg) daily for 3 days, 1 tab (10 mg) daily for 3 days. Dispense: 30 tablet; Refill: 0 Tay Chavez MD Pulmonary, Critical Care, & Sleep Medicine Portions of the information within this encounter were entered using an electronic dictation system. Best attempts were made to edit/proofread the information prior to note completion. Despite the review of information, some errors may remain. If there are questions related to the information contained within the note please contact documented in this encounter [facility] 08-14-2022 Instructions Jaja Noel - 08/14/2022 10:00 AM EDT YOUR APPOINTMENT TODAY WAS WITH THE [facility], COPD CLINIC, PULMONARY AND SLEEP MEDICINE OFFICE. PLEASE CALL OUR OFFICE AT [phone] for our [place] office location or [phone] for our [place] location, IF YOU HAVE NOT RECEIVED YOUR TEST RESULTS 7 DAYS AFTER TESTING IS COMPLETED. PLEASE REMEMBER TO REQUEST REFILLS AT YOUR OFFICE VISITS. PHONE/FAX REQUESTS REQUIRE 48-72 HOURS FOR RESPONSE. A FRIENDLY REMINDER COPAYS ARE DUE AT TIME OF SERVICE. THANK YOU. Our Patients Are Important! We want to improve and you can help. After your visit we want you to feel: Listened to, Respected and have your health care explained. You may receive a survey asking you about your visit. Please complete the survey. We will use your feedback to make improvements. COVID-19 VACCINATION INFORMATION: PH. [phone] [email or web address] [facility] Central Scheduling [phone] [facility] Sleep Scheduling [phone] documented in this encounter [facility] 07-24-2022 Telephone encount er Note Medication name: tiotropium (Spiriva HandiHaler) 18 MCG inhalation capsule 12/05/2007 Sig - Route: Place 1 capsule into inhaler and inhale daily. - Inhalation Medication dosage: 18 mcg (Micrograms) Monthly quantity needed: 30 How many day supply requestin days Medication route: inhalation (inhaler) Medication administration time(s): daily If taking medication PRN, reason for taking medication: breathing If this is a controlled substance do you receive this or any other controlled medication from any other doctor or facility: N/A Ordering provider: Jessie Date of last office visit: 07.11.22 Date of next office visit: none Date of last refill: (see medication tab): 03.23.22 Updated/Validated preferred pharmacy: Yes Patient instructed to contact the pharmacy prior to picking up the medication: Yes [facility] 07-24-2022 Miscellaneous Notes Formattin g of this note is different from the original. Medication name: tiotropium (Spiriva HandiHaler) 18 MCG inhalation capsule 12/05/2007 Sig - Route: Place 1 capsule into inhaler and inhale daily. - Inhalation Medication dosage: 18 mcg (Micrograms) Monthly quantity needed: 30 How many day supply requestin days Medication route: inhalation (inhaler) Medication administration time(s): daily If taking medication PRN, reason for taking medication: breathing If this is a controlled substance do you receive this or any other controlled medication from any other doctor or facility: N/A Ordering provider: Jessie Date of last office visit: 07.11.22 Date of next office visit: none Date of last refill: (see medication tab): 12.01.22 Updated/Validated preferred pharmacy: Yes Patient instructed to contact the pharmacy prior to picking up the medication: Yes documented in this encounter [facility] 07-12-2022 History of Presen t illness Narrative Images from the original note were not included. [facility] Pulmonary Medicine [address] [place] [address] Date of Service: 07/12/2022 Visit type: An Established patient Chief Complaint/Reason for Referral: Follow-up (Patient is here today for recertification for their oxygen. They use their Oxygen continuously , and is benefiting from usage. Patient should continue using this to prevent progression of comorbid conditions. /) SUBJECTIVE History of Present Illness: Dayana Briggs ( 1950) is a 72 y.o. 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 She reports she is feeling better since recent treatment with antibiotics and steroiud. PCP treated her for pneumonia with levaquin and prednisone taper. Cough and congestion has improved, but still having some SOB and cough. Sometimes having difficulty getting sputum out. Takes mucinex 1-3 times a day which does help somewhat. She used pulmicort nebs and performist nebs as prescribed, additionally uses DuoNebs or albuterol inhaler as needed. She uses Spiriva most days, but does forget 1-2 times a week. She feels her breathing is gradually worsening over the last few years. She uses 2L supplemental O2 most of the time which does help her with dyspnea. Leg swelling improved since taking diuretic. She has CT chest scheduled for 07/20 to follow up on lung nodule. MMRC Dyspnea Scale: Grade Description of Breathlessness 0 I only get breathless with strenuous exercise. 1 I get short of breath when hurrying on level ground or walking up a slight hill. 2 On level ground, I walk slower than people of the same age because of breathlessness, or have to stop for breath when walking at my own pace. 3 I stop for breath after walking about 100 yards or after a few minutes on level ground. 4 I am too breathless to leave the house or I am breathless when dressing. OBJECTIVE MEDICAL HISTORY: Past Medical History: Diagnosis Date Asthma 2006 Breast cancer screening 04/2021 COPD (chronic obstructive pulmonary disease) ([facility]) 2013 Home O2 since 2014 Ex-smoker 2008 GERD (gastroesophageal reflux disease) History of idiopathic thrombocytopenic purpura 2005 resolved History of shingles 12/2020 left CN V Hypertension 2003 Hypothyroidism IBS (irritable bowel syndrome) 2000 2008 colonoscopy per Turowski- due 2019 Immunoglobulin deficiency (CMS/HCC) ([facility]) 2007 monthly IVIG infusion per Dr. Decker [place], [place] Renal stones SURGICAL HISTORY: Past Surgical History: Procedure Laterality Date APPENDECTOMY ATRIAL ABLATION SURGERY 2012 CATARACT EXTRACTION W/ INTRAOCULAR LENS IMPLANT Bilateral COLONOSCOPY 11/05/2018 Repeat colonoscopy 10 years. COLONOSCOPY 2008owski-Repeat due 2018 DENTAL SURGERY dentures HEMORRHOID SURGERY 1994 MENISCECTOMY Left 07/06/2015 Damico SKIN BIOPSY from left arm, under right breast, and forehead. All negative for CA TONSILLECTOMY (HISTORICAL) TOTAL VAGINAL HYSTERECTOMY 1994 Ovaries intact ALLERGIES: Allergies Allergen Reactions Lisinopril Shortness of breath Cough and wheezing Aspirin Hives Other reaction(s): U Other reaction(s): U Codeine Other reaction(s): GI Upset sleepy, dizzy Erythromycin unknown reaction Penicillins Other reaction(s): Other (See Comments) Upset stomach Other reaction(s): Other Other reaction(s): U Other reaction(s): Other Other reaction(s): Other, stomach issues Other reaction(s): stomach issues, U unknown reaction Prednisolone Other reaction(s): Other (See Comments) moodiness Sulfa Antibiotics Cephalexin Hives and Rash Other reaction(s): Hives Other reaction(s): U Other reaction(s): Hives Other reaction(s): Hives Other reaction(s): Hives, U MEDICATIONS: Current Outpatient Medications: albuterol (2.5 MG/3ML) 0.083% nebulizer solution, Take 3 mL (2.5 mg) by nebulization as needed for wheezing or shortness of breath., Disp: 75 mL, Rfl: 2 albuterol 108 (90 Base) MCG/ACT inhaler, Inhale 2 puffs every 4 hours as needed for shortness of breath., Disp: 1 each, Rfl: 3 amLODIPine (Norvasc) 5 MG tablet, Take 1 tablet (5 mg) by mouth daily., Disp: 90 tablet, Rfl: 1 budesonide (Pulmicort) 0.5 MG/2ML nebulizer solution, USE 1 VIAL VIA NEBULIZER TWICE A DAY, Disp: , Rfl: cholecalciferol (Vitamin D-3) 25 MCG (1000 UT) capsule, Take 1 capsule by mouth in the morning and 1 capsule before bedtime., Disp: , Rfl: formoterol (Perforomist) 20 MCG/2ML nebulizer solution, 20 mcg., Disp: , Rfl: ipratropium (Atrovent) 0.02 % nebulizer solution, INHALE THE CONTENTS OF 1 VIAL VIA NEBULIZER 2 TIMES DAILY, Disp: , Rfl: ipratropium-albuterol (Duo-Neb) 0.5-2.5 mg/3 mL nebulizer solution, Inhale 1 vial., Disp: , Rfl: levoFLOXacin (Levaquin) 750 MG tablet, Take 1 tablet (750 mg) by mouth daily for 7 days., Disp: 7 tablet, Rfl: 0 levothyroxine (Synthroid, Levoxyl) 100 MCG tablet, Take 1 tablet (100 mcg) by mouth daily for 180 doses., Disp: 90 tablet, Rfl: 1 Magnesium 100 MG capsule, Take by mouth., Disp: , Rfl: omeprazole (PriLOSEC) [address] capsule, Take 1 capsule (20 mg) by mouth daily., Disp: 90 capsule, Rfl: 1 Potassium Gluconate 2.5 MEQ tablet, Take by mouth., Disp: , Rfl: predniSONE (Deltasone) 10 MG tablet, Take 5 tablets (50 mg) by mouth daily for 2 days, THEN 4 tablets (40 mg) daily for 2 days, THEN 3 tablets (30 mg) daily for 2 days, THEN 2 tablets (20 mg) daily for 2 days, THEN 1 tablet (10 mg) daily for 2 days., Disp: 30 tablet, Rfl: 0 spironolactone (Aldactone) 25 MG tablet, Take 1 tablet (25 mg) by mouth daily., Disp: 90 tablet, Rfl: 1 tiotropium (Spiriva HandiHaler) 18 MCG inhalation capsule, Place 1 capsule into inhaler and inhale daily., Disp: , Rfl: zafirlukast (Accolate) 20 MG tablet, Take 20 mg by mouth in the morning and 20 mg before bedtime., Disp: , Rfl: SOCIAL HISTORY: Social History Tobacco Use Smoking status: Former Packs/day: 2.00 Types: Cigarettes Start date: 09/14/1953 Quit date: 12/01/2008 Years since quittin.6 Smokeless tobacco: Never Substance Use Topics Alcohol use: No Alcohol/week: 0.0 standard drinks FAMILY HISTORY: Family History Problem Relation Name Age of Onset Other (72526) Sister adrenal issues Rheum arthritis Father 58 No Known Problems Brother No Known Problems Brother High Blood Pressure Mother alive age 90 No Known Problems Sister Heart disease Father 58 age 58 No Known Problems Brother No Known Problems Brother REVIEW OF SYSTEMS: Review of Systems Constitutional: Positive for activity change. Negative for appetite change, chills, fatigue, fever and unexpected weight change. HENT: Positive for congestion. Negative for postnasal drip, rhinorrhea, sneezing and sore throat. Respiratory: Positive for cough and shortness of breath. Negative for apnea, chest tightness and wheezing. Cardiovascular: Negative for chest pain, palpitations and leg swelling. Allergic/Immunologic: Negative for environmental allergies. Psychiatric/Behavioral: Negative for sleep disturbance. VITAL SIGNS: BP 127/78 Pulse 99 Temp 36.7 C (98 F) (Temporal) Ht 5' 1 (1.549 m) Wt 153 lb 3.2 oz (69.5 kg) SpO2 94% BMI 28.95 kg/m PHYSICAL EXAM: Physical Exam Constitutional: General: She is not in acute distress. Appearance: She is not ill-appearing. Cardiovascular: Rate and Rhythm: Normal rate and regular rhythm. Heart sounds: No murmur heard. Pulmonary: Effort: No respiratory distress. Breath sounds: No wheezing, rhonchi or rales. Musculoskeletal: Right lower leg: No edema. Left lower leg: No edema. Skin: General: Skin is warm and dry. Capillary Refill: Capillary refill takes less than 2 seconds. Psychiatric: Mood and Affect: Mood normal. Behavior: Behavior normal. DATA REVIEWED: PFT's--11/16/21 Spirometry Units Pred PreDrug Pre%Pred Post Post%Pred %Change FVC L,btps 2.79 1.84 66. 2.47 89. 34. FEV1 L,btps 2.11 0.65 31. 0.70 33. 9. FEV1/FVC (%) % 76. 35. 46. 28. 37. -19. FDV82-98% L/s 1.83 0.17 9. 0.17 9. 0. FEFmax L/s 5.42 1.79 33. 2.33 43. 30. MVV in,btps 80.45 22.94 29. Lung Volumes (Body Box) Units Pred PreDrug Pre%Pred TLC L,btps 4.74 VC L,btps 2.79 IC L,btps 2.15 FRC L,btps 2.60 ERV L,btps 0.64 RV L,btps 1.95 RV/TLC (%) % 41. VTG L,btps RAW H2O/L/s 1.48 SGaw cmH2O/L 0.26 Diffusion (DLCO) Units Pred PreDrug Pre%Pred DLCO ml/min/mmHg,stpd 21.06 12.41 59. DLCOHb ml/min/mmHg,stpd 21.06 12.41 59. VAsb L,btps 4.62 4.10 89. D/VAsb ml/min/mmHg/L,stpd 4.56 3.03 66. D/VAsbHb ml/min/mmHg/L,stpd 4.56 3.03 66. VInsp L 1.97 Hgb g/dl 13.40 COHb % Nitrogen Washout Units Pred PreDrug Pre%Pred TLC L,btps 4.74 5.31 112. VC L,btps 2.79 2.74 98. FRC L,btps 2.60 3.57 138. IC L,btps 2.15 1.73 81. ERV L,btps 0.64 1.01 158. RV L,btps 1.95 2.56 131. RV/TLC (%) % 41. 48. 117. Lung Mechanics Units Pred PreDrug Pre%Pred PImax /MIP cmH2O -68.81 PEmax /MEP cmH2O 90.11 ORDER CHECKER NOTES Many attempts. No consistent results. Best Patient effort recorded.Persistent coughing throughout testing.Patient tolerated testing poorly. Patient complained of dyspnea during testing attempts.Calibration check passed with acceptable system performance. The patient performed all pre-test requirements. Not all quality indicators met for spirometry acceptability. Patient best usable effort selected by largest FVC+FEV1. Not all DLCO quality indicators met for acceptability. Effort with highest Vinsp & Dsb selected. All quality FRC indicators for acceptability and repeatability met. Patient demonstrated good effort and understanding during N2 Washout testing. Pt has sob with exertion. Pt has a moist pc daily. Pt wears 2L NC 13/11. Pt was given an Albuterol MDI x4 puffs via a spacer that was instructed and dispensed. 10911- PRE/[place] [address]- DLCO 53474- FRC GAS Tests to perform: [id number] - FULL PFT STUDY WITH BRONCHODILATOR PHYSICIAN INTERPRETATION The quality of the study is good. The flow volume loop is markedly coved with an abrupt fall in expiratory flows consistent with dynamic airway collapse. There is a very severe obstructive ventilatory defect with samll airways disease, a significant bronchodilator response, air trapping, and impaired gas exchange. CXR--05/26/22 PA and lateral views of the chest were obtained. The heart is normal in size. The mediastinal silhouette is normal. The lungs are clear. There are no effusions or infiltrates. There is a 12 mm right upper lobe nodule, demonstrating interval decrease in size on comparison with the prior chest radiograph. There is no pleural thickening. Advanced arthritic changes are seen involving the right shoulder. IMPRESSION: Chronic changes. The previously seen nodule has decreased in size, now measuring approximately 1.[address] Chest--05/13/21 FINDINGS: LUNGS AND AIRWAYS: The central tracheobronchial tree is clear. Nodule with pleural tag in the right upper lobe measuring 1.3 x 1.2 cm (3-102) is decreased in size from prior CT chest 12/21/2020 at which time measured 1.6 x 1.4 cm and measured in a similar fashion. No new or enlarging pulmonary nodules. There is moderate to severe centrilobular emphysema. PLEURA: No pleural effusion. No pneumothorax. LOWER NECK: Visualized portion of the thyroid is unremarkable. No supraclavicular lymphadenopathy. MEDIASTINUM AND ABY: No mediastinal lymphadenopathy. No hilar lymphadenopathy, within the limitations of noncontrast technique. VESSELS: Thoracic aorta is normal in caliber. Mild calcifications of the thoracic aorta. The main pulmonary artery is normal in caliber. HEART AND PERICARDIUM: Heart size is normal. No pericardial thickening or effusion. Mild coronary artery calcification. CHEST WALL: Unremarkable. No axillary or subpectoral lymphadenopathy. VISUALIZED UPPER ABDOMEN: No acute abnormalities detected. Simple cyst arising from the posterior aspect of the right kidney. Status post cholecystectomy. BONES: No lytic or blastic bone lesions. No acute fractures. IMPRESSION: Dominant nodule in the right upper lobe currently measures 1.3 cm, decreased in size from CT chest 12/21/2020 at which time measured 1.6 cm. Findings may represent a resolving infectious/inflammatory nodule. Continued follow-up is recommended. Moderate to severe emphysematous changes. PET/CT--01/27/21 NECK AND CHEST: There is a noncalcified nodule within the lateral aspect of the right upper lobe measuring 1.3 cm in greatest diameter on the low-dose CT images. This nodule demonstrates mild FDG uptake (maximal SUV 1.7), less than typically expected for malignancy. No additional FDG avid pulmonary nodules are identified. There are moderate emphysematous changes. No FDG avid lymphadenopathy is seen within the neck or chest. ABDOMEN AND PELVIS: No abnormal FDG accumulation is seen within the abdomen or pelvis. On the low-dose CT images, a right-sided spigelian type hernia is noted containing nondilated loops of small bowel. MUSCULOSKELETAL: Unremarkable. No evidence of osseous metastatic disease. IMPRESSION: Noncalcified nodules in the right upper lobe demonstrates mild FDG accumulation, less than typically expected for malignancy. Routine CT follow-up is recommended to ensure stability. ASSESSMENT and PLAN 1. Centrilobular emphysema (CMS/HCC) (HCC) -moderate to severe changes on CT imaging -patient notes progressive decline over last several years -PFTs 10/2021 showing FEV1 31%, with +BD response and air trapping -continue ICS/LABA nebs, continue LAMA (Spiriva). Can consider switching Spiriva to Yupelri (LAMA nebs). Once samples available in the office, patient may trial and evaluate clinical response -continue DuoNebs or albuterol inhaler as needed -patient may benefit from endobronchial valve procedure. Need to discuss this with patient at follow up. If she is agreeable, she may need to repeat PFTs and obtain echocardiogram for further evalution 2. Chronic respiratory failure with hypoxia (CMS/HCC) (HCC) -patient is here today for recertification for their oxygen. They use their oxygen continuously at a flow rate of 2 LPM, for their diagnosis(es) of COPD, emphysema and chronic hypoxic respiratory failure . Patient is maintaining above 90% using the flow rate of 2L and benefiting from usage. Patient should continue using their oxygen to prevent progression of comorbid conditions. -new order placed. Will request visit note be faxed to DME supplier ([employer]) along with new O2 order. 3. Lung nodule -1.5 x 1.2 x 1.2 cm in RUL on CT chest 12/2020 -not PET avid on PET CT 01/2021 -CT 04/2020 showing interval decrease in size--recommended repeating in 9-12 months -patient is scheduled for CT chest 07/20/22 FOLLOW UP: Follow up in about 5 weeks (around 08/16/2022), or if symptoms worsen or fail to improve, for Next scheduled follow-up with Dr. Chavez. Joyce Brown APRN Pulmonary & Sleep Medicine documented in this encounter [facility] 07-12-2022 History of Presen t illness Narrative Images from the original note were not included. [facility] [address] [place] [address] Date of Service: 07/12/2022 Visit type: An Established patient Chief Complaint/Reason for Referral: Follow-up (Patient is here today for recertification for their oxygen. They use their Oxygen continuously , and is benefiting from usage. Patient should continue using this to prevent progression of comorbid conditions. /) SUBJECTIVE History of Present Illness: Dayana Briggs ( 1950) is a 72 y.o. 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 She reports she is feeling better since recent treatment with antibiotics and steroiud. PCP treated her for pneumonia with levaquin and prednisone taper. Cough and congestion has improved, but still having some SOB and cough. Sometimes having difficulty getting sputum out. Takes mucinex 1-3 times a day which does help somewhat. She used pulmicort nebs and performist nebs as prescribed, additionally uses DuoNebs or albuterol inhaler as needed. She uses Spiriva most days, but does forget 1-2 times a week. She feels her breathing is gradually worsening over the last few years. She uses 2L supplemental O2 most of the time which does help her with dyspnea. Leg swelling improved since taking diuretic. She has CT chest scheduled for 07/20 to follow up on lung nodule. MMRC Dyspnea Scale: Grade Description of Breathlessness 0 I only get breathless with strenuous exercise. 1 I get short of breath when hurrying on level ground or walking up a slight hill. 2 On level ground, I walk slower than people of the same age because of breathlessness, or have to stop for breath when walking at my own pace. 3 I stop for breath after walking about 100 yards or after a few minutes on level ground. 4 I am too breathless to leave the house or I am breathless when dressing. OBJECTIVE MEDICAL HISTORY: Past Medical History: Diagnosis Date Asthma 2006 Breast cancer screening 04/2021 COPD (chronic obstructive pulmonary disease) ([facility]) 2014 Home O2 since 2014 Ex-smoker 2008 GERD (gastroesophageal reflux disease) History of idiopathic thrombocytopenic purpura 2006 resolved History of shingles 12/2020 left CN V Hypertension 2003 Hypothyroidism IBS (irritable bowel syndrome) 2000 2008 colonoscopy per Turowski- due 2019 Immunoglobulin deficiency ([facility]HCC) ([facility]) 2007 monthly IVIG infusion per Dr. Decker [place], [place] Renal stones SURGICAL HISTORY: Past Surgical History: Procedure Laterality Date APPENDECTOMY ATRIAL ABLATION SURGERY 2012 CATARACT EXTRACTION W/ INTRAOCULAR LENS IMPLANT Bilateral COLONOSCOPY 11/05/2018 Repeat colonoscopy 10 years. COLONOSCOPY 2008-Repeat due 2018 DENTAL SURGERY dentures HEMORRHOID SURGERY 1995 MENISCECTOMY Left 07/06/2015 Mookie SKIN BIOPSY from left arm, under right breast, and forehead. All negative for CA TONSILLECTOMY (HISTORICAL) TOTAL VAGINAL HYSTERECTOMY 1994 Ovaries intact ALLERGIES: Allergies Allergen Reactions Lisinopril Shortness of breath Cough and wheezing Aspirin Hives Other reaction(s): U Other reaction(s): U Codeine Other reaction(s): GI Upset sleepy, dizzy Erythromycin unknown reaction Penicillins Other reaction(s): Other (See Comments) Upset stomach Other reaction(s): Other Other reaction(s): U Other reaction(s): Other Other reaction(s): Other, stomach issues Other reaction(s): stomach issues, U unknown reaction Prednisolone Other reaction(s): Other (See Comments) moodiness Sulfa Antibiotics Cephalexin Hives and Rash Other reaction(s): Hives Other reaction(s): U Other reaction(s): Hives Other reaction(s): Hives Other reaction(s): Hives, U MEDICATIONS: Current Outpatient Medications: albuterol (2.5 MG/3ML) 0.083% nebulizer solution, Take 3 mL (2.5 mg) by nebulization as needed for wheezing or shortness of breath., Disp: 75 mL, Rfl: 2 albuterol 108 (90 Base) MCG/ACT inhaler, Inhale 2 puffs every 4 hours as needed for shortness of breath., Disp: 1 each, Rfl: 3 amLODIPine (Norvasc) 5 MG tablet, Take 1 tablet (5 mg) by mouth daily., Disp: 90 tablet, Rfl: 1 budesonide (Pulmicort) 0.5 MG/2ML nebulizer solution, USE 1 VIAL VIA NEBULIZER TWICE A DAY, Disp: , Rfl: cholecalciferol (Vitamin D-3) 25 MCG (1000 UT) capsule, Take 1 capsule by mouth in the morning and 1 capsule before bedtime., Disp: , Rfl: formoterol (Perforomist) 20 MCG/2ML nebulizer solution, 20 mcg., Disp: , Rfl: ipratropium (Atrovent) 0.02 % nebulizer solution, INHALE THE CONTENTS OF 1 VIAL VIA NEBULIZER 2 TIMES DAILY, Disp: , Rfl: ipratropium-albuterol (Duo-Neb) 0.5-2.5 mg/3 mL nebulizer solution, Inhale 1 vial., Disp: , Rfl: levoFLOXacin (Levaquin) 750 MG tablet, Take 1 tablet (750 mg) by mouth daily for 7 days., Disp: 7 tablet, Rfl: 0 levothyroxine (Synthroid, Levoxyl) 100 MCG tablet, Take 1 tablet (100 mcg) by mouth daily for 180 doses., Disp: 90 tablet, Rfl: 1 Magnesium 100 MG capsule, Take by mouth., Disp: , Rfl: omeprazole (PriLOSEC) [address] capsule, Take 1 capsule (20 mg) by mouth daily., Disp: 90 capsule, Rfl: 1 Potassium Gluconate 2.5 MEQ tablet, Take by mouth., Disp: , Rfl: predniSONE (Deltasone) 10 MG tablet, Take 5 tablets (50 mg) by mouth daily for 2 days, THEN 4 tablets (40 mg) daily for 2 days, THEN 3 tablets (30 mg) daily for 2 days, THEN 2 tablets (20 mg) daily for 2 days, THEN 1 tablet (10 mg) daily for 2 days., Disp: 30 tablet, Rfl: 0 spironolactone (Aldactone) 25 MG tablet, Take 1 tablet (25 mg) by mouth daily., Disp: 90 tablet, Rfl: 1 tiotropium (Spiriva HandiHaler) 18 MCG inhalation capsule, Place 1 capsule into inhaler and inhale daily., Disp: , Rfl: zafirlukast (Accolate) 20 MG tablet, Take 20 mg by mouth in the morning and 20 mg before bedtime., Disp: , Rfl: SOCIAL HISTORY: Social History Tobacco Use Smoking status: Former Packs/day: 2.00 Types: Cigarettes Start date: 09/14/1955 Quit date: 12/01/2008 Years since quittin.6 Smokeless tobacco: Never Substance Use Topics Alcohol use: No Alcohol/week: 0.0 standard drinks FAMILY HISTORY: Family History Problem Relation Name Age of Onset Other (84510) Sister adrenal issues Rheum arthritis Father 58 No Known Problems Brother No Known Problems Brother High Blood Pressure Mother alive age 90 No Known Problems Sister Heart disease Father 58 age 58 No Known Problems Brother No Known Problems Brother REVIEW OF SYSTEMS: Review of Systems Constitutional: Positive for activity change. Negative for appetite change, chills, fatigue, fever and unexpected weight change. HENT: Positive for congestion. Negative for postnasal drip, rhinorrhea, sneezing and sore throat. Respiratory: Positive for cough and shortness of breath. Negative for apnea, chest tightness and wheezing. Cardiovascular: Negative for chest pain, palpitations and leg swelling. Allergic/Immunologic: Negative for environmental allergies. Psychiatric/Behavioral: Negative for sleep disturbance. VITAL SIGNS: BP 127/78 Pulse 99 Temp 36.7 C (98 F) (Temporal) Ht 5' 1 (1.549 m) Wt 153 lb 3.2 oz (69.5 kg) SpO2 94% BMI 28.95 kg/m PHYSICAL EXAM: Physical Exam Constitutional: General: She is not in acute distress. Appearance: She is not ill-appearing. Cardiovascular: Rate and Rhythm: Normal rate and regular rhythm. Heart sounds: No murmur heard. Pulmonary: Effort: No respiratory distress. Breath sounds: No wheezing, rhonchi or rales. Musculoskeletal: Right lower leg: No edema. Left lower leg: No edema. Skin: General: Skin is warm and dry. Capillary Refill: Capillary refill takes less than 2 seconds. Psychiatric: Mood and Affect: Mood normal. Behavior: Behavior normal. DATA REVIEWED: PFT's--11/16/21 Spirometry Units Pred PreDrug Pre%Pred Post Post%Pred %Change FVC L,btps 2.79 1.84 66. 2.47 89. 34. FEV1 L,btps 2.11 0.65 31. 0.70 33. 9. FEV1/FVC (%) % 76. 35. 46. 28. 37. -19. SNB54-98% L/s 1.83 0.17 9. 0.17 9. 0. FEFmax L/s 5.42 1.79 33. 2.33 43. 30. MVV in,btps 80.45 22.94 29. Lung Volumes (Body Box) Units Pred PreDrug Pre%Pred TLC L,btps 4.74 VC L,btps 2.79 IC L,btps 2.15 FRC L,btps 2.60 ERV L,btps 0.64 RV L,btps 1.95 RV/TLC (%) % 41. VTG L,btps RAW H2O/L/s 1.48 SGaw cmH2O/L 0.26 Diffusion (DLCO) Units Pred PreDrug Pre%Pred DLCO ml/min/mmHg,stpd 21.06 12.41 59. DLCOHb ml/min/mmHg,stpd 21.06 12.41 59. VAsb L,btps 4.62 4.10 89. D/VAsb ml/min/mmHg/L,stpd 4.56 3.03 66. D/VAsbHb ml/min/mmHg/L,stpd 4.56 3.03 66. VInsp L 1.97 Hgb g/dl 13.40 COHb % Nitrogen Washout Units Pred PreDrug Pre%Pred TLC L,btps 4.74 5.31 112. VC L,btps 2.79 2.74 98. FRC L,btps 2.60 3.57 138. IC L,btps 2.15 1.73 81. ERV L,btps 0.64 1.01 158. RV L,btps 1.95 2.56 131. RV/TLC (%) % 41. 48. 117. Lung Mechanics Units Pred PreDrug Pre%Pred PImax /MIP cmH2O -68.81 PEmax /MEP cmH2O 90.11 ORDER CHECKER NOTES Many attempts. No consistent results. Best Patient effort recorded.Persistent coughing throughout testing.Patient tolerated testing poorly. Patient complained of dyspnea during testing attempts.Calibration check passed with acceptable system performance. The patient performed all pre-test requirements. Not all quality indicators met for spirometry acceptability. Patient best usable effort selected by largest FVC+FEV1. Not all DLCO quality indicators met for acceptability. Effort with highest Vinsp & Dsb selected. All quality FRC indicators for acceptability and repeatability met. Patient demonstrated good effort and understanding during N2 Washout testing. Pt has sob with exertion. Pt has a moist pc daily. Pt wears 2L NC 13/11. Pt was given an Albuterol MDI x4 puffs via a spacer that was instructed and dispensed. 17971- PRE/[place] [address]- DLCO 54928- FRC GAS Tests to perform: [id number] - FULL PFT STUDY WITH BRONCHODILATOR PHYSICIAN INTERPRETATION The quality of the study is good. The flow volume loop is markedly coved with an abrupt fall in expiratory flows consistent with dynamic airway collapse. There is a very severe obstructive ventilatory defect with samll airways disease, a significant bronchodilator response, air trapping, and impaired gas exchange. CXR--05/26/22 PA and lateral views of the chest were obtained. The heart is normal in size. The mediastinal silhouette is normal. The lungs are clear. There are no effusions or infiltrates. There is a 12 mm right upper lobe nodule, demonstrating interval decrease in size on comparison with the prior chest radiograph. There is no pleural thickening. Advanced arthritic changes are seen involving the right shoulder. IMPRESSION: Chronic changes. The previously seen nodule has decreased in size, now measuring approximately 1.[address] Chest--05/13/21 FINDINGS: LUNGS AND AIRWAYS: The central tracheobronchial tree is clear. Nodule with pleural tag in the right upper lobe measuring 1.3 x 1.2 cm (3-102) is decreased in size from prior CT chest 12/21/2020 at which time measured 1.6 x 1.4 cm and measured in a similar fashion. No new or enlarging pulmonary nodules. There is moderate to severe centrilobular emphysema. PLEURA: No pleural effusion. No pneumothorax. LOWER NECK: Visualized portion of the thyroid is unremarkable. No supraclavicular lymphadenopathy. MEDIASTINUM AND ABY: No mediastinal lymphadenopathy. No hilar lymphadenopathy, within the limitations of noncontrast technique. VESSELS: Thoracic aorta is normal in caliber. Mild calcifications of the thoracic aorta. The main pulmonary artery is normal in caliber. HEART AND PERICARDIUM: Heart size is normal. No pericardial thickening or effusion. Mild coronary artery calcification. CHEST WALL: Unremarkable. No axillary or subpectoral lymphadenopathy. VISUALIZED UPPER ABDOMEN: No acute abnormalities detected. Simple cyst arising from the posterior aspect of the right kidney. Status post cholecystectomy. BONES: No lytic or blastic bone lesions. No acute fractures. IMPRESSION: Dominant nodule in the right upper lobe currently measures 1.3 cm, decreased in size from CT chest 12/21/2020 at which time measured 1.6 cm. Findings may represent a resolving infectious/inflammatory nodule. Continued follow-up is recommended. Moderate to severe emphysematous changes. PET/CT--01/27/21 NECK AND CHEST: There is a noncalcified nodule within the lateral aspect of the right upper lobe measuring 1.3 cm in greatest diameter on the low-dose CT images. This nodule demonstrates mild FDG uptake (maximal SUV 1.7), less than typically expected for malignancy. No additional FDG avid pulmonary nodules are identified. There are moderate emphysematous changes. No FDG avid lymphadenopathy is seen within the neck or chest. ABDOMEN AND PELVIS: No abnormal FDG accumulation is seen within the abdomen or pelvis. On the low-dose CT images, a right-sided spigelian type hernia is noted containing nondilated loops of small bowel. MUSCULOSKELETAL: Unremarkable. No evidence of osseous metastatic disease. IMPRESSION: Noncalcified nodules in the right upper lobe demonstrates mild FDG accumulation, less than typically expected for malignancy. Routine CT follow-up is recommended to ensure stability. ASSESSMENT and PLAN 1. Centrilobular emphysema (CMS/HCC) (HCC) -moderate to severe changes on CT imaging -patient notes progressive decline over last several years -PFTs 10/2021 showing FEV1 31%, with +BD response and air trapping -continue ICS/LABA nebs, continue LAMA (Spiriva). Can consider switching Spiriva to Yupelri (LAMA nebs). Once samples available in the office, patient may trial and evaluate clinical response -continue DuoNebs or albuterol inhaler as needed -patient may benefit from endobronchial valve procedure. Need to discuss this with patient at follow up. If she is agreeable, she may need to repeat PFTs and obtain echocardiogram for further evalution 2. Chronic respiratory failure with hypoxia (CMS/HCC) (HCC) -patient is here today for recertification for their oxygen. They use their oxygen continuously at a flow rate of 2 LPM, for their diagnosis(es) of COPD, emphysema and chronic hypoxic respiratory failure . Patient is maintaining above 90% using the flow rate of 2L and benefiting from usage. Patient should continue using their oxygen to prevent progression of comorbid conditions. -new order placed. Will request visit note be faxed to DME supplier ([employer]) along with new O2 order. 3. Lung nodule -1.5 x 1.2 x 1.2 cm in RUL on CT chest 12/2020 -not PET avid on PET CT 01/2021 -CT 04/2020 showing interval decrease in size--recommended repeating in 9-12 months -patient is scheduled for CT chest 07/20/22 FOLLOW UP: Follow up in about 5 weeks (around 08/16/2022), or if symptoms worsen or fail to improve, for Next scheduled follow-up with Dr. Chavez. Joyce Brown APRN Pulmonary & Sleep Medicine Patient was at 84% at room air, at rest, placed patient on 2lpm O2 and she recovered to 94%. documented in this encounter [facility] 07-12-2022 Instructions Jaja Noel - 07/12/2022 2:10 PM EDT YOUR APPOINTMENT TODAY WAS WITH THE [facility], COPD CLINIC, PULMONARY AND SLEEP MEDICINE OFFICE. PLEASE CALL OUR OFFICE AT [phone] for our [place] office location or [phone] for our [place] location, IF YOU HAVE NOT RECEIVED YOUR TEST RESULTS 7 DAYS AFTER TESTING IS COMPLETED. PLEASE REMEMBER TO REQUEST REFILLS AT YOUR OFFICE VISITS. PHONE/FAX REQUESTS REQUIRE 48-72 HOURS FOR RESPONSE. A FRIENDLY REMINDER COPAYS ARE DUE AT TIME OF SERVICE. THANK YOU. Our Patients Are Important! We want to improve and you can help. After your visit we want you to feel: Listened to, Respected and have your health care explained. You may receive a survey asking you about your visit. Please complete the survey. We will use your feedback to make improvements. COVID-19 VACCINATION INFORMATION: PH. [phone] [email or web address] [facility] Central Scheduling [phone] [facility] Sleep Scheduling [phone] documented in this encounter [facility] 07-12-2022 Instructions Jaja Noel - 07/12/2022 2:10 PM EDT YOUR APPOINTMENT TODAY WAS WITH THE [facility] LUNG NODULE CLINIC, COPD CLINIC, PULMONARY AND SLEEP MEDICINE OFFICE. PLEASE CALL OUR OFFICE AT [phone] for our [place] office location or [phone] for our [place] location, IF YOU HAVE NOT RECEIVED YOUR TEST RESULTS 7 DAYS AFTER TESTING IS COMPLETED. PLEASE REMEMBER TO REQUEST REFILLS AT YOUR OFFICE VISITS. PHONE/FAX REQUESTS REQUIRE 48-72 HOURS FOR RESPONSE. A FRIENDLY REMINDER COPAYS ARE DUE AT TIME OF SERVICE. THANK YOU. Our Patients Are Important! We want to improve and you can help. After your visit we want you to feel: Listened to, Respected and have your health care explained. You may receive a survey asking you about your visit. Please complete the survey. We will use your feedback to make improvements. COVID-19 VACCINATION INFORMATION: PH. [phone] [email or web address] [facility] Central Scheduling [phone] [facility] Sleep Scheduling [phone] documented in this encounter [facility] 07-10-2022 Telephone encount er Note Triage message reviewed with clinical staff. Patient appointment confirmed. Jazmin will assess at appointment visit. [facility] 07-10-2022 Miscellaneous Notes Formattin g of this note might be different from the original. Triage message reviewed with clinical staff. Patient appointment confirmed. Jazmin will assess at appointment visit. S: Patient spoke with [facility] nurse regarding shortness of breath B: Onset of symptoms/concern: a few days ago A: Pt was prescribed an antibiotic and prednisone recently, for a COPD exacerbation. She is continuing to have shortness of breath. She wears oxygen, and usually is between 94-100% unless she ambulates without it, then it drops into the 80s. She always has wheezing present. She is talking in full sentences and does not appear to be in any distress. She denies chest pain, fever. R: Appt made for tomorrow at 0800 with Jazmin Moy. Appt details reviewed. Care advice given. Advised pt should her symptoms worsen she needs to be seen in the ED. She is understanding and has no further questions. Reason for Disposition Longstanding difficulty breathing (e.g., CHF, COPD, emphysema) and worse than normal Protocols used: Breathing [id number]-AD documented in this encounter [facility] 07-10-2022 Telephone encount er Note S: Patient spoke with [facility] nurse regarding shortness of breath B: Onset of symptoms/concern: a few days ago A: Pt was prescribed an antibiotic and prednisone recently, for a COPD exacerbation. She is continuing to have shortness of breath. She wears oxygen, and usually is between 94-100% unless she ambulates without it, then it drops into the 80s. She always has wheezing present. She is talking in full sentences and does not appear to be in any distress. She denies chest pain, fever. R: Appt made for tomorrow at 0800 with Jazmin Moy. Appt details reviewed. Care advice given. Advised pt should her symptoms worsen she needs to be seen in the ED. She is understanding and has no further questions. Reason for Disposition Longstanding difficulty breathing (e.g., CHF, COPD, emphysema) and worse than normal Protocols used: Breathing [id number] [facility] 06-13-2022 Telephone encount er Note Will start auth [facility] 06-13-2022 Miscellaneous Notes Formattin g of this note might be different from the original. Will start auth Name of caller: Dayana Briggs Contact phone number: [phone] Relationship to Patient: patient Provider: Jazmin Moy PA-C Practice: [facility] Chief Complaint/Reason for Call: Pt called requesting that a prior authorization to insurance be completed for the CT Chest dated 05-02-2022. Please advise. Best time of day caller can be reached: any Patient advised that office/PCP has 24-48 business hours to return their call: No documented in this encounter [facility] 06-13-2022 Telephone encount er Note Name of caller: Dayana Briggs Contact phone number: [phone] Relationship to Patient: patient Provider: Jazmin Moy PA-C Practice: [facility] Chief Complaint/Reason for Call: Pt called requesting that a prior authorization to insurance be completed for the CT Chest dated 05-02-2022. Please advise. Best time of day caller can be reached: any Patient advised that office/PCP has 24-48 business hours to return their call: No [employer] 03-24-2022 Telephone encount er Note Name of caller: Dayana Contact phone number: [phone] Relationship to Patient: patient Provider: Dr. Zepeda Practice: [facility] Chief Complaint/Reason for Call: Pt called in stating she seen the doctor recently and has supposed to call in a rx for prednisone and an antibiotic, but nothing was called into the pharmacy. Please call in to the pharmacy on file. Best time of day caller can be reached: AM Patient advised that office/PCP has 24-48 business hours to return their call: N/A [employer] 03-24-2022 Miscellaneous Notes Formattin g of this note might be different from the original. Name of caller: Dayana Contact phone number: [phone] Relationship to Patient: patient Provider: Dr. Zepeda Practice: [facility] Chief Complaint/Reason for Call: Pt called in stating she seen the doctor recently and has supposed to call in a rx for prednisone and an antibiotic, but nothing was called into the pharmacy. Please call in to the pharmacy on file. Best time of day caller can be reached: AM Patient advised that office/PCP has 24-48 business hours to return their call: N/A documented in this encounter [employer] documented in this encounter [employer] Work Phone: Evaluation note* Diagnosis Menopause Symptomatic menopausal or female climacteric states documented in this encounter [facility] Work Phone: Evaluation note* Diagnosis Lung nodule Solitary pulmonary nodule Essential hypertension Unspecified essential hypertension Solitary pulmonary nodule documented in this encounter [employer] Work Phone: Evaluation note* Diagnosis Solitary pulmonary nodule Lung nodule Solitary pulmonary nodule documented in this encounter [facility] Work Phone: Evaluation note* Diagnosis Pulmonary nodule Solitary pulmonary nodule documented in this encounter [facility] Work Phone: Evaluation note* Diagnosis COPD exacerbation (HCC) Obstructive chronic bronchitis with exacerbation LRTI (lower respiratory tract infection) Other diseases of respiratory system, not elsewhere classified documented in this encounter [facility] Work Phone: Evaluation note* Diagnosis Solitary pulmonary nodule Pulmonary nodule Solitary pulmonary nodule documented in this encounter [facility] Work Phone: Evaluation note* Diagnosis Screening mammogram, encounter for Breast density Other sign and symptom in breast Unspecified lump in the left breast, lower outer quadrant documented in this encounter [facility] Work Phone: Evaluation note* Diagnosis Centrilobular emphysema (HCC) Other emphysema Nicotine dependence, unspecified, in remission documented in this encounter [facility] Work Phone: Evaluation note* Diagnosis Centrilobular emphysema (HCC) Other emphysema documented in this encounter [facility] Work Phone: Evaluation note* Diagnosis Centrilobular emphysema (CMS/HCC) (HCC)- Primary Chronic respiratory failure with hypoxia (CMS/HCC) (HCC) Lung nodule Other diseases of lung, not elsewhere classified Chronic obstructive pulmonary disease, unspecified COPD type (HCC) documented in this encounter [facility]* Diagnosis Closed fracture of one rib of right side with routine healing, subsequent encounter Lung nodule Other diseases of lung, not elsewhere classified documented in this encounter [facility] note* Diagnosis Centrilobular emphysema (HCC)- Primary Chronic respiratory failure with hypoxia (CMS/HCC) (HCC) Lung nodule Other diseases of lung, not elsewhere classified Chronic obstructive pulmonary disease, unspecified COPD type (HCC) documented in this encounter [facility] note* Diagnosis Chronic respiratory failure with hypoxia (CMS/HCC) (HCC)- Primary Centrilobular emphysema (HCC) Lung nodule Other diseases of lung, not elsewhere classified Tobacco use disorder, severe, 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 COPD exacerbation (HCC) Obstructive chronic bronchitis with exacerbation [facility] Diagnosis Preop pulmonary/respiratory exam- Primary Pre-operative respiratory examination Chronic respiratory failure with hypoxia (CMS/HCC) (HCC) Centrilobular emphysema (HCC) Lung nodule Other diseases of lung, not elsewhere classified Tobacco use disorder, severe, 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 [facility]* Diagnosis Diarrhea, unspecified type- Primary [facility]* Diagnosis COPD exacerbation (HCC)- Primary Obstructive chronic bronchitis with exacerbation Ventral hernia without obstruction or gangrene Unspecified ventral hernia without mention of obstruction or gangrene [facility]* Diagnosis Preop pulmonary/respiratory exam- Primary Pre-operative respiratory examination Chronic respiratory failure with hypoxia (CMS/HCC) (HCC) Centrilobular emphysema (HCC) Lung nodule Other diseases of lung, not elsewhere classified Tobacco use disorder, severe, 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 [facility]* Diagnosis COPD with acute exacerbation (HCC) [facility]* Diagnosis Chronic respiratory failure with hypoxia (CMS/HCC) (HCC)- Primary Centrilobular emphysema (HCC) Nodule of upper lobe of right lung Preop pulmonary/respiratory exam Pre-operative respiratory examination Tobacco use disorder, severe, in sustained remission [facility]* Diagnosis Centrilobular emphysema (HCC) [facility]* Diagnosis Centrilobular emphysema (HCC) [facility]* Diagnosis COPD exacerbation (HCC)- Primary Obstructive chronic bronchitis with exacerbation [facility]* Diagnosis COPD exacerbation (HCC)- Primary Obstructive chronic bronchitis with exacerbation Primary hypertension Unspecified essential hypertension Screening for lipid disorders Hypothyroidism, unspecified type Gastroesophageal reflux disease without esophagitis Esophageal reflux Centrilobular emphysema (HCC) [facility]* Diagnosis Centrilobular emphysema (HCC)- Primary [facility]* Diagnosis Centrilobular emphysema (HCC) [facility]* Diagnosis Very severe chronic obstructive pulmonary disease (HCC)- Primary Centrilobular emphysema (HCC) Chronic respiratory failure with hypoxia (HCC) Lung nodule Other diseases of lung, not elsewhere classified 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 Diagnosis Bladder prolapse, female, acquired- Primary Vaginal discharge Leukorrhea, not specified as infective Incontinence in female COPD exacerbation (HCC) Obstructive chronic bronchitis with exacerbation Acute bacterial conjunctivitis of right eye documented in this encounter [facility] note* Diagnosis Very severe chronic obstructive pulmonary disease (HCC) documented in this encounter [facility] Discharge instructions* Attachments The following attachments cannot be sent through Care Everywhere. * COPD Exacerbation Plan ([place]) * Pneumonia ([place]) [facility] Reason for referral (narrative)* Consultation (Routine) - Authorized Specialty Diagnoses / Procedures Referred By Fabien t Referred To Contact Pulmonology Diagnoses Very severe chronic obstructive pulmonary disease (HCC) Procedures Complete PFT pre and post bronchodilator with FENO Marjan Wall APRN - CNP [address] [place] [id number] Referral ID Status Reason Start Date Expiration Date V isits Requested Visits Authorized [id number] Authorized 04/17/2023 04/11/2024 1 1 * Consultation (Routine) - Authorized Specialty Diagnoses / Procedures Referred By Contac t Referred To Contact Pulmonology Diagnoses Very severe chronic obstructive pulmonary disease (HCC) Procedures Complete PFT pre and post bronchodilator Marjan Wall APRN - CNP [address] [place] [address] Referral ID Status Reason Start Date Expiration Date V isits Requested Visits Authorized [id number] Authorized 04/17/2023 04/11/2024 1 1 * Imaging (Routine) - Pending Review Specialty Diagnoses / Procedures Referred By Contac t Referred To Contact Radiology Diagnoses Cigarette smoker Procedures CT lung screening low dose Marjan Wall SYSTEMS PROGRAMMER - [employer] [address] [place] [address] Referral ID Status Reason Start Date Expiration Date V isits Requested Visits Authorized [id number] Pending Review 04/17/2023 04/16/2024 1 1 -[facility] [employer]Reason for referral (narrative)* Consultation (Routine) - Pending Review Specialty Diagnoses / Procedures Referred By Conthumphrey t Referred To Contact Urology / Urogynecology Diagnoses Bladder prolapse, female, acquired Vaginal discharge Incontinence in female Procedures MT OFFICE/OUTPATIENT [facility] 60 MINUTES Inga Washington MD [address] [place] [address] Rd [address] [place] [address] [facility] [address] [place] [address] Referral ID Status Reason Start Date Expiration Date Visits Requested Visits Authorized [id number] Pending Review Specialty Services Required 04/26/2023 04/25/2024 1 1 [employer] Advance Directives Documents on File Type Date 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 Latest Code Status on File Code Status Date Activated Date Inactivated Comments Full Code 11/05/2018 11:23 AM 11/06/2018 2:42 AM Documents on File Type Date Recorded 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 Latest Code Status on File Code Status Date Activated Date Inactivated Comments Full Code 11/05/2018 11:23 AM 11/06/2018 2:42 AM Documents on File Type Date Recorded 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 ACP-Power of Harness Racing Handicapper Documents on File Type Date Recorded 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 ACP-Power of [employer] Handicapper Assessments Diagnosis Sprain of left ankle, unspecified ligament, initial encounter Diagnosis Hypokalemia Hypopotassemia Diagnosis Right hip pain Pain in joint, pelvic region and thigh Diagnosis Right hip pain Pain in joint, pelvic region and thigh Diagnosis Bronchitis Bronchitis, not specified as acute or chronic COPD exacerbation (HCC) Obstructive chronic bronchitis with exacerbation Cough with hemoptysis Other hemoptysis Diagnosis Contusion of right shoulder, initial encounter Diagnosis Cyst of right breast Lump in upper inner quadrant of right breast Diagnosis Moderate asthma, unspecified whether complicated, unspecified whether persistent Reason for Referral Status Reason Specialty Diagnoses / Procedures Referre d By Contact Referred To Contact Closed Radiology Diagnoses Right hip pain Procedures MRI LOWER EXTREMITY RIGHT W JT WO CONTRAST Bay Zepeda, DO [address] [place] [address] Status Reason Specialty Diagnoses / Procedures Referred By Contact Referred To Contact Open Specialty Services Required Orthopedic Surgery Diagnoses Contusion of right shoulder, initial encounter Alejandro Olivia MD [address] [place] [address] [facility] [id number] [address] [place] [address] Scheduling Instructions [facility] [place] [address] [address] Status Reason Specialty Diagnoses / Procedures Referred By Contact Referred To Contact Pending Review Radiology Diagnoses Cyst of right breast Lump in upper inner quadrant of right breast Procedures US Breast Limited Right Bay Zepeda, DO [address] [place] [address] Status Reason Specialty Diagnoses / Procedures Referre d By Contact Referred To Contact Open Radiology Diagnoses Menopause Procedures DEXA Bone Density Axial Skeleton Bay Zepeda, DO [address] [place] [address] Status Reason Specialty Diagnoses / Procedures Referred By Contact Referred To Contact Authorized Radiology Diagnoses Lung nodule Procedures CT Chest W Contrast Tay Chavez MD [address] [place] [address] Status Reason Specialty Diagnoses / Procedures Referre d By Contact Referred To Contact Open Radiology Diagnoses Pulmonary nodule Procedures PET CT SKULL BASE TO MID THIGH Nas Lozada MD [address] [place] [address] Specialty Diagnoses / Procedures Referred By Contac t Referred To Contact Radiology Diagnoses Pulmonary nodule Procedures CT CHEST WO CONTRAST Nas Lozada MD [address] [place] [address] Referral ID Status Reason Start Date Expiration Date Visits Re quested Visits Authorized [id number] Open 05/11/2021 05/11/2022 1 1 Specialty Diagnoses / Procedures Referred By Contac t Referred To Contact Radiology Diagnoses Breast density Unspecified lump in the left breast, lower outer quadrant Procedures US Breast Limited Left Bay Zepeda DO [address] [place] [address] Referral ID Status Reason Start Date Expiration Date Visits Re quested Visits Authorized [id number] Open 08/22/2021 08/22/2022 1 1 Specialty Diagnoses / Procedures Referred By Contac t Referred To Contact Radiology Diagnoses Closed fracture of one rib of right side with routine healing, subsequent encounter Lung nodule Procedures CT chest wo IV contrast Jazmin Moy PA-C [address] [place] [address] Referral ID Status Reason Start Date Expiration Date Visits Re quested Visits Authorized [id number] Closed 05/02/2022 10/29/2022 1 1 Discharge Instructions * Attachments The following attachments cannot be sent through Care Everywhere. * Bronchitis: Chronic: General Info ([place]) documented in this encounter* Instructions* Alejandro Olivia MD - 03/09/2020 Ice to the right shoulder, use a sling for the next couple days but I wanted to take her arm out ofthe sling and do range of motion exercises as we did arrive at least 3-4 times per day, follow-up with the orthopedic referral physician I gave you and return if any worsening problems recur at all. documented in this encounter Summary Purpose Family History No Family History Records FoundNo Family History Records FoundNo Family History Records FoundNo Family History Records Found Additional Source Comments Reason for Visit (unrecogniz ed section and content) Reason Comments Shoulder Injury right shoulder injur y s/p slip/fall down 5 indoor steeps Reason Comments Shortness of Breath insp/exp wheeze Reason Comments Follow-up Patient is here toda y for recertification for their oxygen. They use their Oxygen continuously , and is benefiting from usage. Patient should continue using this to prevent progression of comorbid conditions. Reason Onset Date Comments Orders 06/13/2022 Specialty Diagnoses / Procedures Referred By Fabien t Referred To Contact Radiology Diagnoses Closed fracture of one rib of right side with routine healing, subsequent encounter Lung nodule Procedures CT chest wo IV contrast Jazmin Moy PA-C [address] [place] [address] Referral ID Status Reason Start Date Expiration Date Visits Re quested Visits Authorized [id number] Closed 05/02/2022 10/29/2022 1 1 Reason Onset Date Comments Med Refill 07/24/2022 Reason Onset Date Comments Shortness of Breath 07/10/2022 Reason Comments Follow-up CT RESULTS Reason Comments Follow-up SURGERY CLEARANCE Lung Nodule Reason Onset Date Comments Diarrhea 09/26/2022 Reason Comments Diarrhea X 4 days Reason Comments Cough Fever Sore Throat Reason Onset Date Comments Med Refill 10/11/2022 Reason Comments Follow-up Lung Nodule 3-MONTH APPTEMPHYSEM AHOME O2 Reason Onset Date Comments Cough 01/24/2023 Reason Comments Wheezing Reason Onset Date Comments Release of Information 01/24/2023 Reason Onset Date Comments New Med Request 03/24/2022 Prednisone and a ntibiotic Reason Comments Wheezing Thinks copd flare up Reason Onset Date Comments Wheezing 04/06/2023 Reason Onset Date Comments Error (VOID this visit) 04/12/2023 Reason Comments COPD Cough Reason Comments Vaginal Discharge Pt reports greenish- yellow discharge, pt started taking an ATB she had at home and it has started to clear up Conjunctivitis Pt started using old drops she had at home for this Wheezing Reason Comments Med Refill Ordered Prescriptions (unrec ognized section and content) Scheduled Active and Recently Administ ered Medications (unrecognized section and content) Care Teams (unrecognized sec tion and content) Photographer Relationship Specialty Start Date End Date Bay Zepeda DO [address] [place] [address] PCP - General 10/08/14 Photographer Relationship Specialty Start Date End Date Bay Zepeda, DO [address] [facility] [place] [address] PCP - General 10/08/14 Photographer Relationship Specialty Start Date End Date Bay Zepeda, DO [address] [place] [address] PCP - General 10/08/14 Photographer Relationship Specialty Start Date End Date Bay Zepeda, DO [address] [place] [address] PCP - General 10/08/14 Photographer Relationship Specialty Start Date End Date Prosper Roman, DO [address] [place] [address] PCP - General Family Medicine 06/22/22 Photographer Relationship Specialty Start Date End Date Bay Zepeda, DO [address] [place] [address] PCP - General 09/21/18 06/21/22 Prosper Roman, DO [address] [place] [address] PCP - General Family Medicine 06/22/22 Photographer Relationship Specialty Start Date End Date Prosper Roman, DO [address] [place] [address] PCP - General Family Medicine 06/22/22 Photographer Relationship Specialty Start Date End Date Prosper Roman, DO [address] [place] [address] PCP - General Family Medicine 06/22/22 Photographer Relationship Specialty Start Date End Date Prosper Roman, DO [address] [place] [address] PCP - General Family Medicine 06/22/22 Photographer Relationship Specialty Start Date End Date Prosper Roman, DO [address] [place] [address] PCP - General Family Medicine 06/22/22 Photographer Relationship Specialty Start Date End Date Prosper Roman, DO [address] [place] [address] PCP - General Family Medicine 06/22/22 Photographer Relationship Specialty Start Date End Date Prosper Roman, DO [address] [place] [address] PCP - General Family Medicine 06/22/22 Photographer Relationship Specialty Start Date End Date Prosper Roman, DO [address] [place] [address] PCP - General Family Medicine 06/22/22 Photographer Relationship Specialty Start Date End Date Prosper Roman, DO [address] [place] [address] PCP - General Family Medicine 06/22/22 Photographer Relationship Specialty Start Date End Date Prosper Roman, DO [address] [place] [address] PCP - General Family Medicine 06/22/22 Photographer Relationship Specialty Start Date End Date Prosper Roman, DO [address] [place] [address] PCP - General Family Medicine 06/22/22 Photographer Relationship Specialty Start Date End Date Prosper Roman, DO [address], [place] [id number] PCP - General Family Medicine 06/22/22 Photographer Relationship Specialty Start Date End Date Prosper Roman DO [address], [place] [id number] PCP - General Family Medicine 06/22/22 Photographer Relationship Specialty Start Date End Date Prosper Roman, DO [address], [place] [id number] PCP - General Family Medicine 06/22/22 Photographer Relationship Specialty Start Date End Date Prosper Roman, DO [address], [place] [phone] PCP - General Family Medicine 06/22/22 Photographer Relationship Specialty Start Date End Date Prosper Roman, DO [address] [place] [address] PCP - General Family Medicine 06/22/22 Photographer Relationship Specialty Start Date End Date Prosper Roman, DO [address] [place] [phone] PCP - General Family Medicine 06/22/22 Photographer Relationship Specialty Start Date End Date Bay Zepeda, DO [address], [place] [id number] PCP - General 09/21/18 06/21/22 TevinProsper medina, DO [address] [place] [address] PCP - General Family Medicine 06/22/22 Photographer Relationship Specialty Start Date End Date TevinProsper medina, DO [address] [place] [phone] PCP - General Family Medicine 06/22/22 Photographer Relationship Specialty Start Date End Date JessieProsper, DO [address] [place] [phone] PCP - General Family Medicine 06/22/22 Photographer Relationship Specialty Start Date End Date TevincoltelliottProsper, DO [address] [place] [phone] PCP - General Family Medicine 06/22/22 Photographer Relationship Specialty Start Date End Date TevincoltelliottProsper, DO [address] [place] [phone] PCP - General Family Medicine 06/22/22 Photographer Relationship Specialty Start Date End Date JessieProsper, DO [address] [place] [phone] PCP - General Family Medicine 06/22/22 Photographer Relationship Specialty Start Date End Date JessieProsper, DO [address] [place] [phone] PCP - General Family Medicine 06/22/22 Photographer Relationship Specialty Start Date End Date JessieProsper, DO [address] [place] [address] PCP - General Family Medicine 06/22/22 Photographer Relationship Specialty Start Date End Date Prosper Roman DO [address] [facility] [address] [place] [phone] PCP - General Family Medicine 06/22/22 INFORMATION SOURCE (unrecogn ized section and content) DATE CREATED AUTHOR AUTHOR'S ORGANIZ ATION 01/29/2022 [employer] DATE CREATED AUTHOR AUTHOR'S ORGANIZ ATION 02/01/2022 [employer] DATE CREATED AUTHOR AUTHOR'S ORGANIZ ATION 04/28/2023 [facility] RECORDS PERTAINING TO PATIENTS WHO ARE OR HAVE BEEN ENROLLED IN A CHEMICAL DEPENDENCY/SUBSTANCEABUSE PROGRAM, SOME INFORMATION MAY BE OMITTED. This clinical summary was aggregated from multiple sources. Caution should be exercised in using it in the provision of clinical care. This summary normalizes information from multiple sources, and as a consequence, information in this document may materially change the coding, format and clinical context of patient data. In addition, data may be omitted in some cases. CLINICAL DECISIONS SHOULD BE BASED ON THE PRIMARY CLINICAL RECORDS. [employer] provides no warranty or guarantee of the accuracy or completeness of information in this document.
[2023-05-13 08:31] LABS: Anion Gap 4 (5-15); BUN 10 mg/dL (7-18); BUN/Creat Ratio 13.4 RATIO (10-20); Calcium,Total 9.9 mg/dL (8.5-10.1); Chloride 105 mmol/L (98-107); Creatinine, Serum 0.75 mg/dL (0.55-1.02); EST Glomerular Filtration Rate 81 mL/min (>60); Est Glom Filt Rate - Afr Amer 98 mL/min (>60); Estimated Creatinine Clearance 57.87 ml/min; Glucose 118 mg/dL (74-106); Potassium 3.6 mmol/L (3.5-5.1); Sodium Level 138 mmol/L (136-145); Troponin-I HS 12 pg/mL (3.0-54.0)
[2023-05-13 08:45] VITALS: BP 128/75; PULSE 91; RESP 12; O2SAT 96
--- NOTE | 2023-05-13 09:14 | RAD_ITS ---
STUDY: X-RAY - CERVICAL SPINE REASON FOR EXAM: Female, 73 years old. neck pain TECHNIQUE: 5 view(s) of the cervical spine were obtained. COMPARISON: CT of the cervical spine dated December 22, 2022 FINDINGS: Normal anterior atlantoaxial articulation. Normal odontoid process. Normal cervical lordosis. No visualized fracture or compression deformity. Severe disc space narrowing is present at C5-C6. The remaining visualized disc spaces are preserved. The soft tissue structures are unremarkable. RAD/Cerv Spine 2 or 3 Views IMPRESSION: Severe disc space narrowing at C5-C6 Electronically Signed: Sidney Yin MD at 9:43 EST ,
[2023-05-13 10:31] LABS: Mucous, Urine 0 SEEN /hpf (<or=2+); Red Blood Cells-Urine 0 SEEN /hpf (0-5)
[2023-05-13 10:33] LABS: Color, Urine Yellow (Yellow); Glucose, Dipstick Normal (Normal); Ketone-Dipstick Negative (Negative); Leukocyte Esterase-Dipstick 500 /ul (Negative); Nitrite-Dipstick Negative (Negative); Occult Blood-Urine 25 /ul (Negative); Protein-Dipstick 15 mg/dl (Negative); Urine Bilirubin Dipstick Negative (Negative); Urine Clarity Clear (Clear); Urine Urobilinogen Normal (Normal); Urine pH 6.5 (5.0 - 8.0)
[2023-05-13 10:50] LABS: Bacteria 1+ /hpf (None Seen); Squamous Epithelial Cells - UA 0-5 SEEN /hpf (5-10); White Blood Cells 5-10 SEEN /hpf (0-5)
[2023-05-13 11:28] VITALS: BP 140/82
== END 2023-05-13 11:34 | disposition home or self-care (01) ==
PROVIDERS: Emergency Provider Emergency Medicine; PCP Family Medicine; Visit Provider Emergency Medicine
DX: R42 Dizziness and giddiness (principal); J44.9 Chronic obstructive pulmonary disease, unspecified; M54.2 Cervicalgia; Z99.81 Dependence on supplemental oxygen; Z87.891 Personal history of nicotine dependence
CPT/HCPCS: 71045; 72040; 80048; 81001; 84484; 85025; 93005; 96360; 96361; 99284; J7030; A4216

== ENCOUNTER → 2023-10-31 | Outpatient (CLI) | payer MEDICARE, SELFPAY ==
[2023-10-31 11:33] LABS: Vitamin D,25 Hydroxy 43.4 ng/mL
[2023-10-31 11:50] LABS: ALB/GLOB Ratio 0.7 RATIO (0.9-2.4); AST(SGOT) 19 U/L (15-37); Alanine Aminotransfer ALT/SGPT 29 U/L (13-56); Albumin, Serum 3.1 g/dL (3.2-5.0); Alkaline Phosphatase 92 U/L (45-117); Anion Gap 3 (5-15); BUN 12 mg/dL (7-18); Calcium,Total 9.3 mg/dL (8.5-10.1); Chloride 104 mmol/L (98-107); EST Glomerular Filtration Rate 58 mL/min (>60); Est Glom Filt Rate - Afr Amer 70 mL/min (>60); Globulin 4.2 g/dL (2.2-4.2); Glucose 94 mg/dL (74-106); Potassium 3.6 mmol/L (3.5-5.1); Protein, Total 7.3 g/dL (6.4-8.2); Sodium Level 138 mmol/L (136-145); Thyroid Stim Hormone (TSH) 1.18 uIU/mL (0.358-3.74)
== END | disposition home or self-care (01) ==
LOC: LAB 10:18
PROVIDERS: PCP Family Medicine; Referring Provider Internal Medicine Endocrinology, Diabetes & Metabolism; Visit Provider Internal Medicine Endocrinology, Diabetes & Metabolism
DX: E03.9 Hypothyroidism, unspecified (principal); E55.9 Vitamin D deficiency, unspecified; M81.0 Age-related osteoporosis without current pathological fracture
CPT/HCPCS: 36415; 80053; 82306; 84443

== ENCOUNTER 2024-01-11 09:57 | Outpatient (CLI) | payer MEDICARE, SELFPAY ==
[2024-01-11 10:45] VITALS: BP 141/73; PULSE 75; RESP 18; TEMP 36.1; O2SAT 95
[2024-01-11] MEDS: Zoledronic Acid 5 MG 100 ML 300 MG IV (10:55)
[2024-01-11] MEDS: 0.9% NaCl Peripheral Flush Adult/Peds IV (10:55)
[2024-01-11 11:26] VITALS: BP 128/71; PULSE 70; RESP 16; TEMP 36.1; O2SAT 98
== END 2024-01-11 23:59 | disposition home or self-care (01) ==
LOC: MEDOUTP 09:58
PROVIDERS: PCP Family Medicine; Referring Provider Internal Medicine Endocrinology, Diabetes & Metabolism; Visit Provider Internal Medicine Endocrinology, Diabetes & Metabolism
DX: M81.0 Age-related osteoporosis without current pathological fracture (principal)
CPT/HCPCS: 96365; A4216; J3489

== ENCOUNTER 2024-03-09 17:59 | Emergency (ER) | payer MEDICARE, SELFPAY ==
[2024-03-09 18:00] VITALS: BP 149/93; PULSE 99; RESP 18; TEMP 36.2; O2SAT 95
[2024-03-09 18:30] VITALS: O2SAT 96
--- NOTE | 2024-03-09 18:47 | EKG12_ITS ---
Test Reason : SOB Blood Pressure : */* mmHG Vent. Rate : 119 BPM Atrial Rate : 119 BPM P-R Int : 128 ms QRS Dur : 74 ms QT Int : 302 ms P-R-T Axes : 74 23 51 degrees QTcB Int : 424 ms Sinus tachycardia Otherwise normal ECG Confirmed by VERITO BARAHONA, AURELIO ([id number]), production editor HOLLY THACKER ([id number]) on 03/10/2024 9:53:59 AM Referred By: HANNAH Confirmed By: AURELIO SELLERS MD
[2024-03-09 19:02] VITALS: BP 149/93; PULSE 99; RESP 18; TEMP 36.2; O2SAT 95
[2024-03-09 19:03] LABS: Absolute Lymphocyte Count 1.82 X10^3/uL (0.83-4.51); Absolute Neutrophil Count 12.2 X10^3/uL (2.0-7.7); Basophil# 0.08 X10^3/uL; Basophil% 0.5 % (0-1); Eosinophil# 0.04 X10^3/uL; Eosinophils% 0.3 % (0-5); Hematocrit 39.9 % (37-47); Hemoglobin 13.2 g/dL (12.0-15.0); Lymphocyte # 1.82 X10^3/ul (0.83-4.51); Lymphocyte % 11.6 % (19-41); Mean Corp Hgb Conc 33.1 g/dL (32-36); Mean Corpuscular Hgb 28.8 pg (27.0-32.0); Mean Corpuscular Volume 86.9 fL (81-99); Mean Platelet Vol. 10.8 fl (6.2-12.0); Monocyte# 1.29 X10^3/uL; Monocyte% 8.2 % (0-10); NRBC Flagged by Analyzer 0 % (0-5); Neutrophil # 12.24 X10^3/uL (2.7-7.7); Neutrophil % 77.7 % (47-70); Platelet Count 389 K/mm3 (150-450); RBC Distribution Width CV 13.8 % (11.6-14.6); RBC Distribution Width SD 43.8 fl (35.1-43.9); Red Blood Count 4.59 M/mm3 (4.2-5.4); White Blood Count 15.7 K/mm3 (4.4-11.0)
--- NOTE | 2024-03-09 19:07 | EDS_ITS ---
HPI History of Present Illness Chief Complaint: Shortness of Breath Informant: patient Narrative Narrative: Patient is a 73-year-old female with history of immunodeficiency disorder (receives monthly Ig infusions), COPD and chronic respiratory failure on 2.5 L of oxygen at baseline presenting with worsening shortness of breath. Patient states has been short of breath for about a week associated cough that is minimally productive. She is currently on day 6 of prednisone and Levaquin but does not feel as she is significantly getting better. She stopped like she is worsening either. She notes that she has had associated nasal congestion and her grandchildren have been sick with URI symptoms. She is concerned she possibly has pneumonia. She notes the first few days and she was on the medicine she had a low-grade temperature of 99.3 but is not had any recently. Denies any nausea or vomiting. States that she feels that there is a rattle in her chest. Feels that she has to lean forward to breathe well and feels short of breath if she tries to lay back. Denies any swelling of her legs. No other complaints or concerns reported at this time. Denies any associated chest pain States she last had a breathing treatment around 4 PM with no improvement of her symptoms. [facility] Medical History Thrombocytosis Anemia Leukocytosis Thrush RSV infection Acute and chronic respiratory failure with hypoxia Osteoporosis On home oxygen therapy COPD (chronic obstructive pulmonary disease) Former smoker GERD (gastroesophageal reflux disease) Hypothyroid Obesity (BMI 30.0-34.9) HTN (hypertension) Immune deficiency disorder Home Medications ?Medication ?Instructions ?Recorded ?Last Taken ?Type albuterol sulfate 90 mcg/actuation 2 puff inhalation Q4H PRN PRN Sob 07/22/14 Unknown History aerosol inhaler (ProAir HFA) &/Or Wheezing levothyroxine 100 mcg tablet 100 mcg PO DAILY thyroid 07/22/14 07/22/14 History omeprazole 20 mg capsule,delayed 20 mg PO DAILY stomach 07/22/14 07/21/14 History release albuterol sulfate 2.5 mg/3 mL 2.5 mg inhalation Q4H PRN 05/29/22 Unknown History (0.083 %) solution for nebulization shortness of breath or wheezing amlodipine 5 mg tablet 5 mg PO DAILY 05/29/22 Unknown History cholecalciferol (vitamin D3) 25 25 mcg PO DAILY 05/29/22 Unknown History mcg (1,000 unit) capsule ipratropium 0.5 mg-albuterol 3 mg 3 ml inhalation Q6H PRN shortness 05/29/22 Unknown History (2.5 mg base)/3 mL nebulization of breath or wheezing soln zafirlukast 20 mg tablet 20 mg PO BID 05/29/22 Unknown History formoterol fumarate 20 mcg/2 mL 2 ml inhalation BID 10/30/22 Unknown History solution for nebulization (Perforomist) atorvastatin 10 mg tablet 10 mg PO QDAY 10/30/23 Unknown History calcium 333 mg-magnesium 133 mg-D3 1 tab PO DAILY 10/30/23 Unknown History 1.67 mcg-zinc 5 mg tablet ferrous sulfate 325 mg (65 mg 325 mg PO DAILY 10/30/23 Unknown History iron) tablet (Feosol) potassium citrate 99 mg capsule 99 mg PO DAILY 10/30/23 Unknown History spironolactone 25 mg tablet 25 mg PO QDAY 10/30/23 Unknown History zoledronic acid 5 mg/100 mL in 5 ea .Route ONCE #100 mL 10/30/23 Unknown Rx mannitol 5 %-water intravenous piggybck levofloxacin 750 mg tablet 750 mg PO DAILY #7 tabs 03/09/24 Unknown Rx prednisone 20 mg tablet 40 mg (2 x 20 mg) PO DAILY 7 days 03/09/24 Unknown Rx #14 TABLETS Allergy/AdvReac Type Severity Reaction Status Date / Time Environmental Allergies: Allergy Intermediate Hives Verified 03/09/24 18:00 Uncoded Sulfa (Sulfonamide Allergy Mild Hives Verified 03/09/24 18:00 Antibiotics) ampicillin Allergy stomach Verified 03/09/24 18:00 issues aspirin (ASA) Allergy Hives Verified 03/09/24 18:00 cephalexin monohydrate (From Allergy Hives Verified 03/09/24 18:00 Keflex) Family History Mother Hypertension Father Rheumatoid arthritis Heart disease Surgical History History of cholecystectomy History of appendectomy Hx of tonsillectomy Hx of hysterectomy Social History household members: spouse Smoking Status: Former smoker how long ago did patient quit smoking: Quit 2009, prior 1-1.5 ppd since youth. alcohol intake: never substance use type: does not use ROS ROS ED Constitutional Constitutional ED: Denies chills or fever(s) ENT ENT ED: Reports other Details: Nasal irritation, nasal congestion ; Denies rhinorrhea or sore throat Respiratory/Chest Respiratory/Chest: Reports cough, dyspnea and dyspnea on exertion; Denies sputum Gastrointestinal Gastrointestinal: Denies abdominal pain, nausea or vomiting Musculoskeletal Musculoskeletal: Denies arthralgias or myalgias Integumentary Denies rash Neurologic Neurologic: Denies weakness Hematologic/Lymphatic Hematologic/Lymphatic: Denies easy bleeding or easy bruising EXAM Physical Exam Const Vital Signs: 03/09/24 18:00 03/09/24 18:30 03/09/24 19:02 Temperature 97.1 F L 97.1 F L Temperature Source Temporal Temporal Pulse Rate 99 99 Respiratory Rate 18 18 Respiratory Effort Short of Breath Pursed Lip Respiratory Pattern Tachypnea Blood Pressure 149/93 H 149/93 H Blood Pressure Mean 111 111 Pulse Ox 95 95 Oxygen Delivery Method Room Air Nasal Cannula Room Air Oxygen Flow Rate (L/min) 2 03/09/24 19:11 03/09/24 19:31 03/09/24 20:00 Temperature 97.1 F L Temperature Source Oral Pulse Rate 102 H 103 H Respiratory Rate 22 H 17 Respiratory Effort Respiratory Pattern Tachypnea Blood Pressure 142/84 H Blood Pressure Mean 103 Pulse Ox 96 Oxygen Delivery Method Nasal Cannula Nasal Cannula Oxygen Flow Rate (L/min) 2 3 03/09/24 20:54 Temperature 97.9 F Temperature Source Pulse Rate 112 H Respiratory Rate 19 H Respiratory Effort Respiratory Pattern Blood Pressure 161/94 H Blood Pressure Mean 116 Pulse Ox 97 Oxygen Delivery Method Oxygen Flow Rate (L/min) Positive well nourished Constitutional Narrative: Patient chronically ill consistent with history of significant COPD and respiratory failure. General Appearance ED: NAD HEENT Reports TM's clear and moist mucous membranes atraumatic Tympanic Membrane ED: Yes TM's clear Eyes PERRL and EOMs intact bilaterally Neck supple Neck Narrative: Intermittent JVD present Resp Resp Narrative: Mild tachypnea, leaning forward to breathe. Significantly coarse breath sounds with inspiratory wheezing in all hutchins. No conversational dyspnea present. Cardio regular rhythm Rate: tachycardic Extremity normal to inspection General Extremety ED: Negative for edema General Extremity: Negative for edema Neuro oriented x3 Sensorium / Orientation: alert Motor Exam: Negative for general weakness Psych mental status grossly normal Skin no wounds MDM MDM MDM Narrative Medical decision making narrative: Patient evaluated for continued shortness of breath in the setting of recent to respiratory symptoms. She is not improving despite being on prednisone and Levaquin which is prompted her to come to the emergency room. Differential includes COPD exacerbation, failing outpatient treatment, pneumonia as well as ACS and pulmonary edema. Clinically I think this is more infectious. Will check baseline labs, give breathing treatments and obtain EKG/chest x-ray. EKG does not show any acute ischemia but does show sinus tachycardia. Lab work shows a leukocytosis 15.7 and is nonspecific with other this is acutely infectious or associated with her current steroid use. PCP to remove [place] lactated Ringer troponin. Patient does have a episode of tachycardia in the emergency room and it correlates with her getting up, taking off her oxygen and trying to get something on the other side of her room. 2 view chest x-ray viewed by myself as well as radiology does not show any acute process. Patient is on her baseline O2 requirements. On repeat evaluation patient has improvement of her breath sounds that she feels better after receiving a DuoNeb and albuterol. Did discuss admission with the patient especially given how tachycardic she cannot with any type of exertion. Patient feels that she is actually starting to get better and just needs an extended course of her antibiotics and steroids. She would like to go home. Shared medical discussion making performed and patient will be discharged home. Patient is encouraged to return to the emergency room immediately if she feels that her symptoms are getting worse if she develops a fever. At that time she will likely require IV fluids through pulmonary toilet. Patient verbalized agreement understand this plan. Discharged home in stable improved condition. Lab Data Attestation: I reviewed the patient's lab results. Labs: Laboratory Results - last 24 hr 03/09/24 03/09/24 18:29 19:22 WBC 15.7 H RBC 4.59 Hgb 13.2 Hct 39.9 MCV 86.9 MCH 28.8 MCHC 33.1 RDW Std Deviation 43.8 RDW Coeff of [place] 13.8 Plt Count 389 MPV 10.8 Immature Gran % (Auto) 1.700 H Neut % (Auto) 77.7 H Lymph % (Auto) 11.6 L [place] % (Auto) 8.2 Eos % (Auto) 0.3 Baso % (Auto) 0.5 Absolute Neuts (auto) 12.2 H Absolute Lymphs (auto) 1.82 Nucleated RBC % 0 Sodium 135 L Potassium 3.4 L Chloride 103 Carbon Dioxide 28.0 Anion Gap 5 BUN 18 Creatinine 1.06 H Est GFR (MDRD) Af Amer 66 Est GFR (MDRD) Non-Af 54 L BUN/Creatinine Ratio 17.0 Glucose 117 H Lactic Acid 1.9 Calcium 9.6 Troponin I High Sens 16 Radiography Diagnostic Testing: Clinical Impression(s) from Imaging Studies Chest X-Ray 03/09/24 19:30 IMPRESSION: There are no acute findings. Electronically Signed: Darian Hernandez MD at 19:55 EST Reading Location ID and State: [facility] [place] / [place] , Service support , Rhythm Strip Rhythm Strip: Sinus Tach Rate: 119 Ectopy: None EKG Initial EKG: Attestation: I personally reviewed and interpreted this EKG as follows: Interpretation: Sinus Tachycardia Comments: Sinus tachycardia rate of 119 bpm Normal axis Normal intervals Normal ST segments Compared to prior EKG patient is now tachycardic Discharge Plan Triage Chief Complaint: Shortness of Breath ED Provider: Annamarie Lira Dx/Rx/DC Orders Clinical Impression: Acute viral syndrome, Asthma exacerbation in COPD, Tachycardia Instructions: ED COPD Flare Prescriptions: New levofloxacin 750 mg tablet 750 mg PO DAILY Qty: 7 0RF prednisone 20 mg tablet 40 mg PO DAILY 7 Days Qty: 14 0RF No Action formoterol fumarate [Perforomist] 20 mcg/2 mL solution for nebulization 2 ml inhalation BID amlodipine 5 mg tablet 5 mg PO DAILY albuterol sulfate 2.5 mg /3 mL (0.083 %) solution for nebulization 2.5 mg inhalation Q4H PRN (Reason: shortness of breath or wheezing) cholecalciferol (vitamin D3) 25 mcg (1,000 unit) capsule 25 mcg PO DAILY ipratropium-albuterol 0.5 mg-3 mg(2.5 mg base)/3 mL solution for nebulization 3 ml inhalation Q6H PRN (Reason: shortness of breath or wheezing) zafirlukast 20 mg tablet 20 mg PO BID Rx Instructions: must be taken on empty stomach, at least 1 hr before or 2 hrs after a meal/food potassium citrate 99 mg capsule 99 mg PO DAILY atorvastatin 10 mg tablet 10 mg PO QDAY spironolactone 25 mg tablet 25 mg PO QDAY calc carb-mag ox-D3-zinc gluc 333 mg-133 mg- 1.67 mcg-5 mg tablet 1 tab PO DAILY ferrous sulfate [Feosol] 325 mg (65 mg iron) tablet 325 mg PO DAILY zoledronic rgus-[id number] 5 mg/100 mL piggyback 5 ea .Route ONCE Qty: 100 0RF Rx Instructions: onceinfuse over 20 minutes levothyroxine 100 MCG tablet 100 mcg PO DAILY Patient Comments: thyroid omeprazole 20 MG capsule 20 mg PO DAILY Patient Comments: gerd albuterol sulfate [ProAir HFA] 1 PUFF inhaler 2 puff inhalation Q4H PRN PRN (Reason: Sob &/Or Wheezing) Patient Comments: copd Primary Care Provider: Prosper Roman Referrals: Prosper Roman DO [Primary Care Provider] - Activity Restrictions/Additional Instructions: Please continue the antibiotics and prednisone as we discussed for another week. Follow-up with your primary care doctor as well as your lung specialist. Your heart rate was elevated today with any type of exertion. We discussed admission today but at this time we will try further outpatient treatment. Please have a low threshold to return to the emergency room if you have any worsening of your symptoms. Make sure drinking plenty of fluids and I do recommend taking Mucinex to help cough up mucus in your lung/thin secretions in your lungs Print Language: Turkmen Disposition Disposition: Home, Self Care Discharge Date/Time: 03/09/24 21:14
[2024-03-09] MEDS: Albuterol 2.5 MG/3 ML VIAL.NEB. INHALATION (19:08)
[2024-03-09] MEDS: Ipratropium/Albuterol Sulfate 3 ML AMPUL.NEB INHALATION (19:08)
[2024-03-09 19:11] VITALS: PULSE 102; RESP 22
[2024-03-09 19:21] LABS: Anion Gap 5 (5-15); BUN 18 mg/dL (7-18); Calcium,Total 9.6 mg/dL (8.5-10.1); Chloride 103 mmol/L (98-107); Creatinine, Serum 1.06 mg/dL (0.55-1.02); EST Glomerular Filtration Rate 54 mL/min (>60); Est Glom Filt Rate - Afr Amer 66 mL/min (>60); Glucose 117 mg/dL (74-106); Potassium 3.4 mmol/L (3.5-5.1); Sodium Level 135 mmol/L (136-145); Troponin-I HS 16 pg/mL (3.0-54.0)
--- NOTE | 2024-03-09 19:30 | RAD_ITS ---
STUDY: XR Chest 2 Views 03/09/2024 7:31 PM REASON FOR EXAM: Female, 73 years old. sob COMPARISON: 05.13.23 TECHNIQUE: XR Chest 2 Views FINDINGS: There is no demonstrated pleural abnormality. Normal heart size. Normal mediastinum. Normal paty. Prominent appearing increased interstitial lung markings. Normal visualized pulmonary arteries. There is atherosclerotic calcification of the aortic arch with tortuosity. There are diffuse degenerative changes of the visualized thoracic spine. There is degenerative osteoarthritis of the bilateral shoulders. There are no acute findings of the upper abdomen. RAD/Chest PA and Lateral IMPRESSION: There are no acute findings. Electronically Signed: Darian Hernandez MD at 19:55 EST ,
[2024-03-09 20:00] VITALS: BP 142/84; PULSE 103; RESP 17; TEMP 36.2; O2SAT 96
[2024-03-09 20:20] LABS: Lactic Acid 1.9 mmol/L (0.4-1.9)
[2024-03-09 20:54] VITALS: BP 161/94; PULSE 112; RESP 19; TEMP 36.6; O2SAT 97
== END 2024-03-09 21:14 | disposition home or self-care (01) ==
PROVIDERS: Emergency Provider Emergency Medicine; PCP Family Medicine; Visit Provider Emergency Medicine
DX: B34.9 Viral infection, unspecified (principal); J44.1 Chronic obstructive pulmonary disease with (acute) exacerbation; Z87.891 Personal history of nicotine dependence
CPT/HCPCS: 71046; 80048; 83605; 84484; 85025; 87631; 93005; 94640; 99285; A4216

== ENCOUNTER → 2024-11-11 | Outpatient (CLI) | payer MEDICARE, SELFPAY ==
[2024-11-11 16:42] LABS: AST(SGOT) 18 U/L (<=31); Alanine Aminotransfer ALT/SGPT 18 U/L (<=34); Albumin, Serum 3.8 g/dL (3.4-4.8); Alkaline Phosphatase 78 U/L (35-104); Anion Gap 10 (5-15); BUN 18 mg/dL (4-19); BUN/Creat Ratio 20.2 RATIO (10-20); Calcium,Total 9.4 mg/dL (7.6-11.0); Carbon Dioxide 27.3 mmol/L (21.0-32.0); Chloride 103 mmol/L (98-108); Globulin 4.3 g/dL (2.2-4.2); Glucose 89 mg/dL (70-99); Potassium 3.4 mmol/L (3.3-5.1); Vitamin D,25 Hydroxy 47.4 ng/mL (30-100)
== END | disposition home or self-care (01) ==
LOC: LAB 14:01
PROVIDERS: PCP Family Medicine; Referring Provider Internal Medicine Endocrinology, Diabetes & Metabolism; Visit Provider Internal Medicine Endocrinology, Diabetes & Metabolism
DX: M81.0 Age-related osteoporosis without current pathological fracture (principal); E55.9 Vitamin D deficiency, unspecified; E03.9 Hypothyroidism, unspecified
CPT/HCPCS: 36415; 80053; 82306

== ENCOUNTER 2025-01-15 10:19 | Outpatient (CLI) | payer MEDICARE, SELFPAY ==
[2025-01-15 10:44] VITALS: BP 127/82; PULSE 90; RESP 18; TEMP 35.9; O2SAT 94
[2025-01-15] MEDS: 0.9% NaCl Peripheral Flush Adult IV (11:05)
[2025-01-15 11:34] VITALS: BP 125/69; PULSE 80; RESP 16; TEMP 35.9; O2SAT 100
== END 2025-01-15 23:59 | disposition home or self-care (01) ==
LOC: MEDOUTP 10:20
PROVIDERS: PCP Family Medicine; Referring Provider Internal Medicine Endocrinology, Diabetes & Metabolism; Visit Provider Internal Medicine Endocrinology, Diabetes & Metabolism
DX: M81.0 Age-related osteoporosis without current pathological fracture (principal)
CPT/HCPCS: 96365; A4216; J3489

== ENCOUNTER 2025-01-24 20:15 | Emergency (ER) | payer MEDICARE, SELFPAY ==
[2025-01-24] VITALS (10 sets, daily range): BP systolic 115–160; BP diastolic 66–101; PULSE 117–140; RESP 12–34; TEMP 36.9; O2SAT 96–99
--- NOTE | 2025-01-24 20:32 | ED.VIS.DYS ---
HPI History of Present Illness Chief Complaint: Shortness of Breath [facility] Medical History Nodule of upper lobe of right lung Idiopathic thrombocytopenic purpura (ITP) Chronic hypoxic respiratory failure Emphysema of lung Asthma Thrombocytosis Anemia Leukocytosis Thrush RSV infection Acute and chronic respiratory failure with hypoxia Osteoporosis On home oxygen therapy COPD (chronic obstructive pulmonary disease) Former smoker GERD (gastroesophageal reflux disease) Hypothyroid Obesity (BMI 30.0-34.9) HTN (hypertension) Immune deficiency disorder Home Medications ?Medication ?Instructions ?Recorded ?Last Taken ?Type albuterol sulfate 90 mcg/actuation 2 puff inhalation Q4H PRN PRN Sob 07/22/14 Unknown History aerosol inhaler (ProAir HFA) &/Or Wheezing levothyroxine 100 mcg tablet 100 mcg PO DAILY thyroid 07/22/14 07/22/14 History omeprazole 20 mg capsule,delayed 20 mg PO DAILY stomach 07/22/14 07/21/14 History release albuterol sulfate 2.5 mg/3 mL 2.5 mg inhalation Q4H PRN 05/29/22 Unknown History (0.083 %) solution for nebulization shortness of breath or wheezing amlodipine 5 mg tablet 5 mg PO DAILY 05/29/22 Unknown History cholecalciferol (vitamin D3) 25 25 mcg PO DAILY 05/29/22 Unknown History mcg (1,000 unit) capsule zafirlukast 20 mg tablet 20 mg PO BID 05/29/22 Unknown History atorvastatin 10 mg tablet 10 mg PO QDAY 10/30/23 Unknown History Held on 01/15/25. Instructions: patient calcium 333 mg-magnesium 133 mg-D3 1 tab PO DAILY 10/30/23 Unknown History 1.67 mcg-zinc 5 mg tablet potassium citrate 99 mg capsule 99 mg PO DAILY 10/30/23 Unknown History spironolactone 25 mg tablet 25 mg PO QDAY 10/30/23 Unknown History prednisone 20 mg tablet 40 mg (2 x 20 mg) PO DAILY 7 days 03/09/24 Unknown Rx Held on 01/15/25. #14 TABLETS Instructions: Ordered zoledronic acid 5 mg/100 mL in 5 ea .Route ONCE #100 mL 11/25/24 Unknown Rx mannitol 5 %-water intravenous piggybck azithromycin 500 mg tablet 500 mg PO DAILY 5 days #5 tabs 01/25/25 Unknown Rx prednisone 50 mg tablet 50 mg PO DAILY #5 tabs 01/25/25 Unknown Rx Allergy/AdvReac Type Severity Reaction Status Date / Time Environmental Allergies: Allergy Intermediate Hives Verified 01/24/25 20:16 Uncoded Sulfa (Sulfonamide Allergy Mild Hives Verified 01/24/25 20:16 Antibiotics) ampicillin Allergy stomach Verified 01/24/25 20:16 issues aspirin (ASA) Allergy Hives Verified 01/24/25 20:16 atorvastatin Allergy Shortness Verified 01/24/25 20:16 of breath cephalexin monohydrate (From Allergy Hives Verified 01/24/25 20:16 Keflex) lisinopril Allergy Other Verified 01/24/25 20:16 codeine AdvReac Nausea/Vom/ Verified 01/24/25 20:16 Diarrhea levofloxacin (From Levaquin) AdvReac Pain in Verified 01/24/25 20:16 joints Family History Mother Hypertension Father Rheumatoid arthritis Heart disease Sister Cancer Brother Cancer Surgical History History of hemorrhoidectomy History of meniscectomy of left knee History of colonoscopy History of bilateral cataract extraction History of cholecystectomy History of appendectomy Hx of tonsillectomy Hx of hysterectomy Social History household members: spouse Smoking Status: Former smoker how long ago did patient quit smoking: Quit 2008, prior 1-1.5 ppd since youth. alcohol intake: never substance use type: does not use caffeine: Yes EXAM Physical Exam Const Vital Signs: 01/24/25 20:17 01/24/25 20:19 01/24/25 20:55 Temperature 98.5 F 98.5 F Temperature Source Oral Oral Pulse Rate 117 H 117 H 123 H Respiratory Rate 30 H 30 H 26 H Respiratory Effort Respiratory Pattern Tachypnea Blood Pressure 157/101 H 157/101 H Blood Pressure Mean 119 119 Pulse Ox 96 96 Oxygen Delivery Method Nasal Cannula Nasal Cannula Oxygen Flow Rate (L/min) 2 2 Fraction of Inspired Oxygen (FIO2) 01/24/25 21:15 01/24/25 21:16 01/24/25 21:18 Temperature Temperature Source Pulse Rate 130 H Respiratory Rate Respiratory Effort Short of Breath Respiratory Pattern Tachypnea Blood Pressure 115/66 Blood Pressure Mean 82 Pulse Ox 98 Oxygen Delivery Method Nasal Cannula Nasal Cannula Nasal Cannula Oxygen Flow Rate (L/min) 2 2 2 Fraction of Inspired Oxygen (FIO2) 01/24/25 21:19 01/24/25 22:00 01/24/25 22:11 Temperature 98.5 F 98.5 F Temperature Source Oral Oral Pulse Rate 129 H 129 H 123 H Respiratory Rate 26 H 23 H 34 H Respiratory Effort Respiratory Pattern Tachypnea Blood Pressure 115/66 160/93 H Blood Pressure Mean 82 115 Pulse Ox 99 98 98 Oxygen Delivery Method Nasal Cannula Nasal Cannula Oxygen Flow Rate (L/min) 2 2 Fraction of Inspired Oxygen (FIO2) 28 01/24/25 22:39 01/24/25 23:00 Temperature Temperature Source Pulse Rate 140 H Respiratory Rate 17 Respiratory Effort Respiratory Pattern Blood Pressure 149/87 H Blood Pressure Mean 104 Pulse Ox 98 97 Oxygen Delivery Method Nasal Cannula Oxygen Flow Rate (L/min) 2 Fraction of Inspired Oxygen (FIO2) MDM MDM MDM Narrative Medical decision making narrative: HISTORY OF PRESENT ILLNESS: Chief complaint: Shortness of breath 74-year-old female history of ITP, chronic hypoxic respiratory failure, emphysema, asthma, anemia, COPD (on 2 L home O2), GERD, hypertension, obesity and hypothyroidism presents with shortness of breath. She states she has been experience increased shortness of breath for last 5 days. She notes she took prednisone for 2 days felt little bit better. She states she has oxygen at baseline she notes she is usually on 2 L. She knows she is sick contacts her . She further states The patient denies recent surgery in the last 4 weeks or immobilization in the last 3 days, denies previous diagnosis of DVT or PE, hemoptysis, unilateral leg swelling or malignancy with treatment the last 6 months or palliative. No estrogen use noted. REVIEW OF SYSTEMS: Pertinent positives: Shortness of breath, cough Pertinent negatives: Leg swelling, chest pain PHYSICAL EXAM: Nursing triage notes reviewed, Vital signs reviewed Constitutional: please see mdm HENT: MMM Eyes: Pupils equal round and reactive to light, Extraocular muscles intact Neck: No stridor, no JVD, full neck ROM Lungs: Conversational dyspnea, bilateral wheezing, tight lungs, poor air movement, pursed lip breathing, moderate to severe respiratory distress Heart: Regular rate and rhythm, No murmurs, No rubs and No gallops, 2+ distal pulses (radial, femoral, posterior tibial) in all extremities Abdomen: Soft, there is no tenderness, rigidity, rebound or guarding, no obvious peritoneal signs, no palpable pulsatile abdominal masses, no auscultated abdominal bruit : No CVAT Extremities: No edema Neuro: No new focal neurological deficits, cranial nerves II through XII intact, 5/5 strength in all present extremities. Intact sensation to light touch in all present extremities, 2+ reflexes bilateral patella tendons. Skin: No rash or lesions noted MEDICAL DECISION MAKING: Chief Complaint: please see HPI External records reviewed: Reviewed echocardiogram from 2023 shows ejection fraction 72% Factors affecting care: As per [facility] Social determinants of health: none History obtained from others: none Consults: None [facility] Narrative: Patient was initially tachycardic with a heart rate of 117, tachypneic respiratory 30, she was saturating 96% on her baseline home oxygen. Bilateral wheezing noted, diminished breath sounds throughout, coarse breath sounds throughout. Conversational dyspnea noted. I considered the following differential diagnosis: COPD exacerbation, pneumonia, COVID/RSV/flu, ACS, arrhythmia, anemia, PE I obtained a broad lab and imaging evaluation to further determine if the patient was suffering from a life-threatening etiology. Initially treat the patient [place] with DuoNeb breathing treatments, Solu-Medrol given wheezing, tight lungs and clinical presentation consistent with COPD. ALL IMAGES (IF OBTAINED) HAVE BEEN PERSONALLY REVIEWED AND INTERPRETED BY MYSELF. EKG with sinus tachycardia 131, normal axis, normals, no obvious STEMI. No sign of right heart strain CBC with leukocytosis suggestive of systemic inflammation, this may be related to recent steroid initiation, no anemia or thrombocytopenia noted VBG without evidence of respiratory acidosis, pH 7.47, CO2 within normal limits, no sign of CO2 retention BMP without significant electrolyte abnormalities, there is no acute kidney injury High-sensitivity troponin is negative, no evidence of myocardial ischemia x 2 (ACS effectively ruled out based on high-sensitivity troponin protocol at [facility]) BNP within normal limits making heart failure less likely Patient continued to have tachypnea, increased work of breathing, accessory muscle use, and tachycardia. As a temporizing measure I tried transiently to place patient on BiPAP to decrease her work of breathing and tachypnea. There was some improvement however patient cannot tolerate BiPAP for more than approximately 35 minutes. At this time patient is maintaining saturation on her home 2 L however she still continues to have tachypnea and tachycardia. Given ongoing vital sign abnormalities as well as ongoing wheezing and coarse breath sounds I offered the patient admission for COPD exacerbation. The patient was alert and oriented x 3 in the presence of her family noted she would not like to stay at the hospital. She stated I am always like this. She states she is comfortable going home would like prescription for steroids. Also offer prescription for azithromycin provide additional anti-inflammatory effect. Patient signed AMA form. AMA note: I have recommended admission to the hospital, but the patient refuses. The risks (including but not limited to suffering and ) as well as the benefits were explained to the patient. Questions were sought and answered, the patient voiced understanding and accepts these risks. I have encouraged the patient to return to have their evaluation completed as we are glad to do so. Patient had capacity to make his or her own medical decisions. Patient was alert and orient x3 and of sound mind at time of discussion. I have also instructed the patient on the importance of follow-up and to return for any worsening or worrisome concerns. The patient appears competent to make medical decisions at this time. The patient and/or family, caregivers express understanding. The patient and/or family, caregivers agrees with the plan. Shared decision making: I will have a discussion with the patient and or visitors regarding risk/benefits of further testing or admission. They will be made aware of of the risk/benefits inherent in this decision they will be given the opportunity to voice understanding. Total critical care time today provided was at least 35 minutes. This excludes separately billable procedures. Critical care time (if documented) is secondary to the patient having high probability of clinically significant/life threatening deterioration in the patient's condition which required my urgent intervention. Impression: 1. Dyspnea 2. COPD exacerbation 3. Tachycardia Dispo: discharge AMA This note was generated with [employer] dictation software. It may contain incorrect words, spelling, and punctuation that were not noted in review of the chart prior to signing. Lab Data Labs: Laboratory Results - last 24 hr 01/24/25 01/24/25 01/24/25 20:40 21:22 22:50 WBC 16.2 H RBC 4.14 L Hgb 12.1 Hct 36.8 L MCV 88.9 MCH 29.2 MCHC 32.9 RDW Std Deviation 46.1 H RDW Coeff of [place] 14.3 Plt Count 516 H MPV 9.6 Immature Gran % (Auto) 0.400 Neut % (Auto) 67.6 Lymph % (Auto) 21.3 Edwards % (Auto) 9.8 Eos % (Auto) 0.6 Baso % (Auto) 0.3 Absolute Neuts (auto) 10.9 H Absolute Lymphs (auto) 3.44 Nucleated RBC % 0 Differential Comment SCANNED Platelet Estimate MOD INC Sodium 138 Potassium 4.4 Chloride 100 Carbon Dioxide 23.5 Anion Gap 15 BUN 22 H Creatinine 1.19 Est GFR (MDRD) Non-Af 49 L BUN/Creatinine Ratio 18.2 Glucose 107 H Calcium 10.0 Troponin T High Sens 11 Troponin T Hi Sens 2 Hr 11 NT pro BNP II 597 ABG Data ABG results: ABG 01/24/25 21:31 Specimen Type CACHORRO Sample Site Not entered O2 % 2.0 VBG pH 7.47 H VBG pO2 60 H VBG HCO3 34 H VBG Total CO2 36 H VBG O2 Sat (Calc) 92 H VBG Base Excess 11 H POC Mix VBG pCO2 Pt Tmp 46.5 O2 Delivery Device Cannula Radiography Diagnostic Testing: Clinical Impression(s) from Imaging Studies Chest X-Ray 01/24/25 21:52 IMPRESSION: No Acute Findings. Reading Location: [facility] Discharge Plan Triage Chief Complaint: Shortness of Breath ED Provider: Santy Stokes Dx/Rx/DC Orders Instructions: ED COPD Flare Prescriptions: New prednisone 50 mg tablet 50 mg PO DAILY Qty: 5 0RF azithromycin 500 mg tablet 500 mg PO DAILY 5 Days Qty: 5 0RF No Action amlodipine 5 mg tablet 5 mg PO DAILY albuterol sulfate 2.5 mg /3 mL (0.083 %) solution for nebulization 2.5 mg inhalation Q4H PRN (Reason: shortness of breath or wheezing) cholecalciferol (vitamin D3) 25 mcg (1,000 unit) capsule 25 mcg PO DAILY zafirlukast 20 mg tablet 20 mg PO BID Rx Instructions: must be taken on empty stomach, at least 1 hr before or 2 hrs after a meal/food potassium citrate 99 mg capsule 99 mg PO DAILY atorvastatin 10 mg tablet 10 mg PO QDAY spironolactone 25 mg tablet 25 mg PO QDAY calc carb-mag ox-D3-zinc gluc 333 mg-133 mg- 1.67 mcg-5 mg tablet 1 tab PO DAILY zoledronic axbd-[id number] 5 mg/100 mL piggyback 5 ea .Route ONCE Qty: 100 0RF Rx Instructions: onceinfuse over 20 minutes levothyroxine 100 MCG tablet 100 mcg PO DAILY Patient Comments: thyroid omeprazole 20 MG capsule 20 mg PO DAILY Patient Comments: gerd albuterol sulfate [ProAir HFA] 1 PUFF inhaler 2 puff inhalation Q4H PRN PRN (Reason: Sob &/Or Wheezing) Patient Comments: copd prednisone 20 mg tablet 40 mg PO DAILY 7 Days Qty: 14 0RF Primary Care Provider: Prosper Roman Referrals: Prosper Roman DO [Primary Care Provider, Family Practice] Activity Restrictions/Additional Instructions: Thank you for trusting us with your care today! Please take prednisone azithromycin as prescribed. Please return to the emergency department if your symptoms change or worsen. Please follow with your primary care physician for further outpatient evaluation and management. Print Language: Faroese Disposition Disposition: Against Medical Advice
--- NOTE | 2025-01-24 20:51 | EKG12_ITS ---
Test Reason : DYSRHYTHMIA Blood Pressure : */* mmHG Vent. Rate : 131 BPM Atrial Rate : 131 BPM P-R Int : 130 ms QRS Dur : 70 ms QT Int : 304 ms P-R-T Axes : 76 36 57 degrees QTcB Int : 448 ms Sinus tachycardia Otherwise normal ECG Confirmed by VERITO BARAHONA, AURELIO ([id number]), editor in chief newspaper HOLLY THACKER ([id number]) on 01/26/2025 8:35:51 AM Referred By: Confirmed By: AURELIO SELLERS MD
[2025-01-24] MEDS: Albuterol 2.5 MG/3 ML VIAL.NEB. INHALATION (20:55)
--- NOTE | 2025-01-24 21:20 | CPS ---
[2054] x2 additional Duonebs given to pt. in ER
[2025-01-24 21:33] LABS: Hematocrit 36.8 % (37-47); Hemoglobin 12.1 g/dL (12.0-15.0); Immature Granulocytes Count 0.060 X10^3/uL (0.0-0.0); Mean Corp Hgb Conc 32.9 g/dL (32-36); Mean Corpuscular Volume 88.9 fL (81-99); Mean Platelet Vol. 9.6 fl (6.2-12.0); NRBC Flagged by Analyzer 0 % (0-5); POSITIVE DIFFERENTIAL YES; Platelet Count 516 K/mm3 (150-450); RBC Distribution Width CV 14.3 % (11.6-14.6); RBC Distribution Width SD 46.1 fl (35.1-43.9); Red Blood Count 4.14 M/mm3 (4.2-5.4); White Blood Count 16.2 K/mm3 (4.4-11.0)
[2025-01-24 21:34] LABS: FI02 2.0; SITE Not entered; VBG BASE EXCESS 11 mmol/L (-1.0-3.5); VBG PO2 60 mmHg (25-40); VBG SO2 92 % (50-70); VBG TCO2 36 mmol/L (23-33)
[2025-01-24 21:42] LABS: Pro- Brain NATRIURETIC PEPTIDE 597 pg/mL (<=900); Troponin T High Sensitivity 11 ng/L (<=14)
--- OUTSIDE RECORDS SUMMARY | 2025-01-24 21:43 | XMS RPT_ITS | CCD ---
Author Organization [facility] Care Team Providers Care Toddler Guide Name Role Phone Марина Zepeda Primary Care Provider [phone] PROVIDER, UNKNOWN Referring Unavailable Aubrey Dyer Attending Unavailable Марина Zepeda Primary Care Unavailable Марина Zepeda Primary Care Unavailable PROVIDER, UNKNOWN Referring Unavailable Aubrey Dyer Attending Unavailable PROVIDER, UNKNOWN Referring Unavailable Марина Zepeda Primary Care Unavailable Aubrey Dyer Attending Unavailable Марина Zepeda Primary Care Unavailable Марина Zepeda Attending Unavailable PROVIDER, UNKNOWN Referring Unavailable Марина Zepeda Primary Care Unavailable PROVIDER, UNKNOWN Referring Unavailable Kathryn Varghese Attending Unavailable Marni Archuleta Attending Unavailable PROVIDER, UNKNOWN Referring Unavailable Марина Zepeda Primary Care Unavailable Марина Zepeda Primary Care Unavailable PROVIDER, UNKNOWN Referring Unavailable Kathryn Varghese Attending Unavailable Dr. Марина Zepeda Primary Care Provider [phone] Reuben Gonzalez Attending Provider Unavailable Prosper Roman DO Primary Care Provider [phone] Марина Zepeda DO Primary Care Provider Dr. Марина Zepeda Primary Care Provider Reuben Gonzalez Attending Provider Unavailable Dr. Prosper Roman Primary Care Provider Dr. Reinaldo Godfrey Emergency Provider [phone] Dr. Chloé Levine Attending Provider [phone] Prosper Roman DO Primary Care Provider Dr. Марина Zepeda Referring Provider Dr. Mumtaz Field Attending Provider Dr. Prosper Roman Primary Care Provider Prosper Roman DO Primary Care Provider [phone] Blankhinakahlil VILCHIS Марина Jaimee Primary Care Provider Joyce Chino RN Unavailable Unavailable Jessie VILCHIS, Dr. Cheng Primary Care Provider [phone] Jessie VILCHIS, Dr. Cheng Referring Provider Dr. Filipe Mancilla MD Attending Provider King JUN, Dr. Pandya Attending Provider [phone] King JUN, Dr. Pandya Referring Provider Matti MARCOS, Joyce Unavailable Unavailable Jasen ROD TAPE OPERATOR-C, Jenny Attending Provider Mumtaz Field Attending Unavailable Tevinlla, Prosper Primary Care Unavailable Petrilla, Prosper Referring Unavailable Filipe Mancilla Attending Unavailable Tevinlla, Prosper Primary Care Unavailable Petrilla, Prosper Referring Unavailable Annamarie Lira Attending Unavailable Petrilla, Prosper Primary Care Unavailable Mumtaz Field Attending Unavailable Mumtaz Field Referring Unavailable Tevinlla, Prosper Primary Care Unavailable Mumtaz Field Attending Unavailable EmirMumtaz Referring Unavailable Petrilla, Prosper Primary Care Unavailable Petrilla, Prosper Primary Care Unavailable Jenny Aggarwal Attending Unavailable Jessie, Prosper Referring Unavailable Petrilla , Dr. Cheng Primary Care Physician Jessie VILCHIS, Dr. Cheng Referring Provider Dr. Mumatz Field MD Attending Physician Jasen ROD TAPE OPERATOR-C, Jenny Attending Physician JESSIE, PROSPER Primary Care Unavailable FILIPE CASTELLON Attending Unavailable TEVINLLA, PROSPER Primary Care Unavailable FILIPE CASTELLON Attending Unavailable JULIETA, PROSPER Primary Care Unavailable BENY SMITH Referring Unavailable BENY SMITH Attending Unavailable PETRILLA, PROSPER Primary Care Unavailable JOYCE BROWN Attending Unavailable PETRILLA, PROSPER Primary Care Unavailable JOYCE BROWN Attending Unavailable PETRILLA, PROSPER Primary Care Unavailable PETRILLA, PROSPER Attending Unavailable PETRILLA, PROSPER Primary Care Unavailable JAZMIN MOY Attending Unavailable PETRILLA, PROSPER Primary Care Unavailable GENTRY ROSS Attending Unavailable PETRILLA, PROSPER Primary Care Unavailable JOYCE BROWN Referring Unavailable ARCHIEJOYCE Attending Unavailable PETRILLA, PROSPER Primary Care Unavailable PETRILLA, PROSPER Referring Unavailable PETRILLA, PROSPER Attending Unavailable PETRILLA, PROSPER Primary Care Unavailable BENY SMITH Attending Unavailable PETRILLA, PROSPER Primary Care Unavailable BENY SMITH Attending Unavailable PETRILLA, PROSPER Primary Care Unavailable JOYCE BROWN Attending Unavailable PETRILLA, PROSPER Primary Care Unavailable ARCHIEJOYCE Attending Unavailable PETRILLA, PROSPER Primary Care Unavailable DENISE DEAN Attending Unavailable PETRILLA, PROSPER Primary Care Unavailable MOYJAZMIN Leal Attending Unavailable PETRILLA, PROSPER Primary Care Unavailable MOYJAZMIN Attending Unavailable PETRILLA, PROSPER Primary Care Unavailable PETRILLA, PROSPER Attending Unavailable PETRILLA, PROSPER Primary Care Unavailable ASSAAGENTRY Wallace Attending Unavailable ASSAAGENTRY Wallace Admitting Unavailable PETRILLA, PROSPER Primary Care Unavailable ARCHIE, JOYCE Attending Unavailable PETRILLA, PROSPER Primary Care Unavailable FILIPE CASTELLON Referring Unavailable FILIPE CASTELLON Attending Unavailable Allergies Allergy Classification Reported Allergen(s) Allergy Type Date of Onset Reaction(s) Facility Aluminum aspirin (3 sources) Aluminum aspirin Drug Allergy 12-15-19 15 [facility] Angiotensin Converting Enzyme (DEISY) Inhibitors (3 sources) Lisinopril Drug Allergy 09-29-19 16 [facility] Cephalosporins (antibiotic) (3 sources) Cephalexin Drug Allergy 12-15-19 15 Hives [facility] Corticosteroids (3 sources) prednisoLONE Drug Allergy 12-15-19 15 Other (See Comments) [facility] Macrolides (antibiotic) (3 sources) Erythromycin Drug Allergy 12-15-19 15 [facility] Opioid Agonists (3 sources) Codeine Drug Allergy 12-15-19 15 [facility] Penicillins (antibiotic) (6 sources) Ampicillin Drug Allergy 12-15-19 15 Other (See Comments) [facility] Sulfonamides (antibiotic) (3 sources) Sulfonamides (Antibiotic) Drug Allergy 12-15-19 15 [facility] (20 sources) Aluminum aspirin Drug Allergy 12-15-19 15 Hives [place] (20 sources) Ampicillin Drug Allergy 12-15-19 15 Other (See Comments) [place] (20 sources) Cephalexin Drug Allergy 12-05-19 08 Hives, Rash [place] (20 sources) Codeine Drug Allergy 12-05-19 08 Nausea/Vom/Rosa M [place]rhea [place] (20 sources) Erythromycin Drug Allergy 12-05-19 08 [place] (20 sources) Lisinopril Drug Allergy 09-29-19 16 Shortness Of Breath [place] Comment on above: cough, wheezing (19 sources) Penicillins Propensity to adverse reactions to drug 12-15-19 15 [place] (20 sources) prednisoLONE Drug Allergy 12-15-19 15 Other (See Comments) [place] (19 sources) Sulfonamides (Antibiotic) Propensity to adverse reactions to drug 12-15-19 15 [place] (16 sources) Aspirin Drug Allergy 07-21-19 22 [facility] (17 sources) Cephalexin; Translations: [cephalexin monohydrate] Drug Allergy 07-21-19 22 [facility] (1 source) sulfer Allergy to substance 05-29-19 23 Other [facility] (20 sources) Lisinopril Propensity to adverse reactions 09-29-19 16 Shortness of breath [facility] (20 sources) Penicillins Drug Intolerance 12-05-19 08 [facility] (20 sources) Sulfonamides (Antibiotic) Drug Intolerance 12-15-19 15 [facility] (10 sources) Environmental Allergies: Uncoded; Translations: [Environmental Allergies: Uncoded] Allergy to substance 08-17-19 23 PT UNABLE TO RESPOND-NEEDS F/U, [facility] Comment on above: Sulfer (20 sources) Other Allergy to substance 08-17-19 23 Other [facility] (6 sources) Sulfonamides (Antibiotic) Allergy to substance 04-12-20 23 [facility] (20 sources) levoFLOXacin Drug Allergy 12-17-19 24 Other [facility] Work Phone: (20 sources) Mis. Sulfonamide Containing Compounds Drug Allergy 03-09-20 24 [facility] (20 sources) Amoxicillin-Pot Clavulanate Propensity to adverse reactions 07-03-19 25 [facility] (1 source) Ampicillin Drug Allergy 01-16-20 25 [facility] (1 source) Aspirin Drug Allergy 01-16-20 25 [facility] (1 source) Codeine Drug Allergy 01-16-20 [facility] (1 source) levoFLOXacin Drug Allergy 01-16-20 [facility] (1 source) Lisinopril Drug Allergy 01-16-20 [facility] (1 source) Sulfonamides (Antibiotic) Drug allergy (disorder) 01-16-20 [facility] Medications Current Medications Medication Drug Class(es) Dates Sig (Normalized) Sig (Original) albuterol 0.83 mg/ml inhalation solution (20 sources) beta2-Adrenergic Agonist Start: 01-01-2025 2.5 mg, Nebulization, Once, On Lana 01/01/25 at 1715, For 1 dose, Recovery (only) Start: 05-22-2023 albuterol 108 (90 Base) MCG/ACT inhaler 4 puff Start: 09-06-2022 End: 11-17-2025 albuterol (2.5 MG/3ML) 0.083 % nebulizer solution Indications: disp one box of nebules with 3 refills, (box of 25 nebules) Take 3 mL (2.5 mg) by nebulization every 4 hours as needed for wheezing or shortness of breath. 75 mL 3 11/17/2024 11/17/2025 Active Start: 05-26-2022 End: 05-26-2023 albuterol (2.5 MG/3ML) 0.083 % nebulizer solution Indications: disp one box of nebules with 3 refills, (box of 25 nebules) Take 3 mL (2.5 mg) by nebulization as needed for wheezing or shortness of breath. 75 mL 2 05/26/2022 09/06/2022 Discontinued (Reorder) Start: 03-22-2022 End: 11-12-2024 take 2 puff(s) by inhalation every four hours as needed albuterol 108 (90 Base) MCG/ACT inhaler Indications: COPD with acute exacerbation (HCC) , Centrilobular emphysema (HCC) Inhale 2 puffs every 4 hours as needed for shortness of breath. 1 each 2 11/12/2024 Active Start: 12-23-2021 take 2 puff(s) by in halation every four hours as needed for wheezing albuterol sulfate HFA (PROAIR HFA) 108 (90 Base) MCG/ACT inhaler Inhale 2 puffs into the lungs every 4 hours as needed for Wheezing 3 each 1 12/23/2021 Active Start: 11-16-2021 albuterol sulf ate HFA (PROVENTIL;VENTOLIN;PROAIR) 108 (90 Base) MCG/ACT inhaler 4 puff Start: 07-26-2021 take 2 puff(s) by in halation every four hours as needed for wheezing albuterol sulfate HFA (PROAIR HFA) 108 (90 Base) MCG/ACT inhaler Inhale 2 puffs into the lungs every 4 hours as needed for Wheezing 1 each 1 07/26/2021 Active Start: 03-04-2021 End: 05-29-2022 take 2.5 mg by inhalation every four hours as needed for wheezing Albuterol Sulfate 2.5 mg /3 mL (0.083 %) solution for nebulization Discontinued 2.5 mg INHALATION EVERY 4 HOURS NEEDED 25 0 February 14, 2022 12:00am May 29, 2022 9:24am Use q4 hours and PRN for wheezing Start: 01-12-2021 take 2 puff(s) by in halation every four hours as needed for wheezing albuterol sulfate HFA (PROAIR HFA) 108 (90 Base) MCG/ACT inhaler Inhale 2 puffs into the lungs every 4 hours as needed for Wheezing 1 each 1 01/12/2021 Active Start: 11-04-2020 take 2 puff(s) by in halation every four hours as needed for wheezing albuterol sulfate HFA (PROAIR HFA) 108 (90 Base) MCG/ACT inhaler Inhale 2 puffs into the lungs every 4 hours as needed for Wheezing 3 Inhaler 1 11/04/2020 Active Start: 10-08-2020 albuterol (PRO VENTIL) nebulizer solution 2.5 mg Start: 09-07-2020 albuterol sulf ate HFA 108 (90 Base) MCG/ACT inhaler 4 puff Start: 07-08-2020 take 2 puff(s) by in halation every four hours as needed for wheezing albuterol sulfate HFA (PROAIR HFA) 108 (90 Base) MCG/ACT inhaler Inhale 2 puffs into the lungs every 4 hours as needed for Wheezing 3 Inhaler 1 07/08/2020 Active Start: 07-08-2020 take 2 puff(s) by in halation every four hours as needed for wheezing albuterol sulfate HFA (PROAIR HFA) 108 (90 Base) MCG/ACT inhaler Inhale 2 puffs into the lungs every 4 hours as needed for Wheezing 3 Inhaler 1 07/08/2020 Active Start: 12-10-2019 take 2 puff(s) by in halation every four hours as needed for wheezing albuterol sulfate HFA (PROAIR HFA) 108 (90 Base) MCG/ACT inhaler Inhale 2 puffs into the lungs every 4 hours as needed for Wheezing 3 Inhaler 1 12/10/2019 Active Start: 07-01-2019 take 2 puff(s) by in halation every four hours as needed for wheezing albuterol sulfate HFA (PROAIR HFA) 108 (90 Base) MCG/ACT inhaler Inhale 2 puffs into the lungs every 4 hours as needed for Wheezing 3 Inhaler 1 07/01/2019 Active Start: 01-20-2019 take 2 puff(s) by in halation every four hours as needed for wheezing albuterol sulfate HFA (PROAIR HFA) 108 (90 Base) MCG/ACT inhaler Inhale 2 puffs into the lungs every 4 hours as needed for Wheezing 3 Inhaler 1 01/20/2019 Active Start: 07-22-2014 take 1 puff(s) by in halation every four hours as needed Albuterol Sulfate (Proair Hfa) 1 PUFF inhaler Active 2 PUFF INHALATION EVERY 4 HOURS NEEDED July 22, 2014 7:38pm Start: 07-22-2014 Albuterol Sulf ate (Proair Hfa) 1 PUFF inhaler Active 2 NMA INHALATION EVERY 4 HOURS NEEDED as needed for Sob &/Or Wheezing July 22, 2014 12:00am Complies with drug therapy albuterol 0.833 mg/ml / ipratropium bromide 0.167 mg/ml inhalation solution (20 sources) Anticholinergic, beta2-Adrenergic Agonist Start: 12-06-2022 ipratropium-albuterol (Duo-Neb) 0.5-2.5 mg/3 mL nebulizer solution Indications: Centrilobular emphysema (HCC) Take 3 mL by nebulization 4 times daily as needed for wheezing. 30 mL 2 12/06/2022 Active Start: 05-29-2022 End: 08-26-2024 take 1 mL by inhalation every six hours as needed for wheezing Ipratropium-Albuterol 0.5 mg-3 mg(2.5 mg base)/3 mL solution for nebulization Discontinued 3 mL INHALATION EVERY 6 HOURS as needed for shortness of breath or wheezing May 29, 2022 1:00am August 26, 2024 1:00pm On Hold: Order Completed Start: 05-29-2022 take 1 mL by inhalat ion every six hours Ipratropium-Albuterol Active 3 ML INHALATION EVERY 6 HOURS May 29, 2022 12:00am Start: 01-07-2020 End: 12-06-2022 ipratropium-albuterol (DUONE B) nebulizer solution 2 ampule Start: 07-31-2017 ipratropium-al buterol (DUONEB) 0.5-2.5 (3) MG/3ML SOLN nebulizer solution USE 1 VIAL (3ML) IN NEBILIZER 3 TIMES A DAY NEEDED 0 07/31/2017 Active take 1 dose by inhal ation every four hours ipratropium-albuterol (DUONEB) 0.5-2.5 (3) MG/3ML SOLN nebulizer solution Inhale 1 vial into the lungs every 4 hours 0 Active Albuterol Sulfate (Proair Hf a) 1 PUFF inhaler (13 sources) Start: 07-22-2014 Albuterol Sulf ate (Proair Hfa) 1 PUFF inhaler Active 2 NMA INHALATION EVERY 4 HOURS NEEDED as needed for Sob &/Or Wheezing July 22, 2014 12:00am Start: 07-22-2014 take 1 puff(s) by in halation every four hours as needed Albuterol Sulfate (Proair Hfa) 1 PUFF inhaler Active 2 PUFF INHALATION EVERY 4 HOURS NEEDED July 21, 2014 11:00pm Start: 07-22-2014 take 1 puff(s) by in halation every four hours as needed Albuterol Sulfate (Proair Hfa) 1 PUFF inhaler Active 2 PUFF INHALATION EVERY 4 HOURS NEEDED July 22, 2014 12:00am albuterol sulfate HFA (PROAIR HFA) 108 (90 Base) MCG/ACT inhaler (1 source) Start: 12-10-2019 take 2 puff(s) by inhalation every four hours as needed for wheezing albuterol sulfate HFA (PROAIR HFA) 108 (90 Base) MCG/ACT inhaler Inhale 2 puffs into the lungs every 4 hours as needed for Wheezing 3 Inhaler 1 12/10/2019 Active alendronic acid 70 mg oral tablet (3 sources) Bisphosphonate Start: 01-06-2022 take 1 tablet by mouth every week alendronate (FOSAMAX) 70 MG tablet TAKE 1 TABLET BY MOUTH ONE TIME PER WEEK 12 tablet 1 01/06/2022 Active Start: 02-01-2021 alendronate (F OSAMAX) 70 MG tablet Take 1 tablet by mouth every 7 days 4 tablet 3 02/01/2021 Active amLODIPine 5 mg oral tablet (20 sources) Dihydropyridine Calcium Channel Uche Start: 04-10-2022 End: 08-15-2024 take 1 tablet by mouth once daily Amlodipine 5 mg tablet Active 5 mg PO DAILY May 29, 2022 1:00am Complies with drug therapy Start: 01-06-2022 take 1 tablet by octavio th once daily amLODIPine (NORVASC) 5 MG tablet Indications: Primary hypertension Take 1 tablet by mouth daily 90 tablet 0 01/06/2022 Active Start: 10-26-2021 take 1 tablet by octavio th once daily amLODIPine (NORVASC) 5 MG tablet Take 1 tablet by mouth daily 90 tablet 0 10/26/2021 Active Start: 07-26-2021 take 1 tablet by octavio th once daily amLODIPine (NORVASC) 5 MG tablet Take 1 tablet by mouth daily 90 tablet 0 07/26/2021 Active Start: 04-18-2021 take 1 tablet by octavio th once daily amLODIPine (NORVASC) 5 MG tablet Take 1 tablet by mouth daily 90 tablet 0 04/18/2021 Active Start: 02-03-2021 End: 05-29-2022 take 1 tablet by mouth once daily Amlodipine 10 mg tablet Discontinued 10 mg PO DAILY February 11, 2021 12:00am May 29, 2022 9:23am B/P Start: 11-04-2020 take 1 tablet by octavio th once daily amLODIPine (NORVASC) 2.5 MG tablet Take 1 tablet by mouth daily 90 tablet 0 11/04/2020 Active Start: 07-08-2020 take 1 tablet by octavio th once daily amLODIPine (NORVASC) 2.5 MG tablet Take 1 tablet by mouth daily 90 tablet 0 07/08/2020 Active Start: 12-10-2019 take 1 tablet by octavio th once daily amLODIPine (NORVASC) 2.5 MG tablet Take 1 tablet by mouth daily 90 tablet 1 12/10/2019 Active Start: 07-01-2019 take 1 tablet by octavio th once daily amLODIPine (NORVASC) 2.5 MG tablet Take 1 tablet by mouth daily 90 tablet 1 07/01/2019 Active Start: 01-20-2019 take 1 tablet by octavio th once daily amLODIPine (NORVASC) 2.5 MG tablet Take 1 tablet by mouth daily 90 tablet 1 01/20/2019 Active take 1 tablet by octavio th once daily amLODIPine (NORVASC) 5 MG tablet Take 5 mg by mouth daily 0 Active ascorbic acid 60 mg / beta carotene 5000 unt / copper sulfate 40 mg / dl-alpha tocopheryl acetate 30 unt / sodium selenite 0.04 mg / zinc oxide 40 mg oral tablet (5 sources) Vitamin C take 1 tablet by mouth once daily Multiple Vitamins-Minerals (THERAPEUTIC MULTIVITAMIN-MINERALS) tablet Take 1 tablet by mouth daily 0 Active atorvastatin 10 mg oral tablet (20 sources) HMG-CoA Reductase Inhibitor Start: 2023 End: 2025 take 1 tablet by mouth once daily Atorvastatin 10 mg tablet Active 10 mg PO daily October 30, 2023 12:00am On Hold: patient Complies with drug therapy benzonatate 100 mg oral capsule (2 sources) Non-narcotic Antitussive Start: 2023 End: 2023 take 1 capsule by mouth three times daily as needed for cough benzonatate (Tessalon) 100 MG capsule Indications: COPD exacerbation (HCC) Take 1 capsule (100 mg) by mouth 3 times daily as needed for cough. Do not crush or chew. 42 capsule 0 07/04/2023 08/03/2023 Active budesonide 0.25 mg/ml inhalation suspension (20 sources) Corticosteroid Start: 2024 take 2 mL by mouth twice daily budesonide (Pulmicort) 0.5 MG/2ML nebulizer solution Indications: Centrilobular emphysema (HCC) Take 2 mL (0.5 mg) by nebulization 2 times daily. Rinse mouth with water after use to reduce aftertaste and incidence of candidiasis. Do not swallow. 360 mL 5 12/03/2024 Active Start: 07-22-2014 End: 10-30-2023 Budesonide 0.5 MG/2 ML suspe nsion for nebulization Discontinued 1 APPLICATIO INHALATION TWICE A DAY July 22, 2014 12:00am October 30, 2023 1:07pm breathing Start: 07-22-2014 End: 10-24-2023 budesonide (Pulmicort) 0.5 M G/2ML nebulizer solution Indications: Centrilobular emphysema (HCC) USE 1 VIAL VIA NEBULIZER TWICE A DAY 60 mL 2 12/06/2022 Active Calc Carb-Mag Ox-D3-Zinc Gluc 333 mg-133 mg- 1.67 mcg-5 mg tablet (4 sources) Start: 10-30-2023 take 1.67 tablets by mouth once daily Calc Carb-Mag Ox-D3-Zinc Gluc 333 mg-133 mg- 1.67 mcg-5 mg tablet Active 1 {tbl} PO DAILY October 30, 2023 12:00am Complies with drug therapy Start: 10-30-2023 take 1.67 tablets by mouth once daily Calc Carb-Mag Ox-D3-Zinc Gluc 333 mg-133 mg- 1.67 mcg-5 mg tablet Active 1 {tbl} PO DAILY October 30, 2023 12:00am Ciprofloxacin Hcl 0.3 % drops (1 source) Start: 12-20-2024 Ciprofloxacin Hcl 0.3 % drops Active 1 NMA OPHTHALMIC Q4H 10 5 0 December 20, 2024 12:00am December 24, 2024 12:00am administer while awake Cod Liver Oil (10 sources) take 1 capsule by mouth once daily COD LIVER OIL PO Take 1 capsule by mouth daily 0 Active codeine phosphate 2 mg/ml / promethazine hydrochloride 1.25 mg/ml oral solution (1 source) Opioid Agonist, Phenothiazine Start: 03-09-2021 End: 03-12-2021 promethazine-codei ne (PHENERGAN WITH CODEINE) 6.25-10 MG/5ML syrup Indications: COPD exacerbation (HCC) Take 5 mLs by mouth 4 times daily as needed for Cough for up to 3 days. 118 mL 0 03/09/2021 03/12/2021 Active fluticasone propionate 0.05 mg/actuat metered dose nasal spray (2 sources) Corticosteroid Start: 10-05-2021 take 1 spray(s) nasal route once daily fluticasone (FLONASE) 50 MCG/ACT nasal spray Indications: Chronic respiratory failure with hypoxia (HCC) 1 spray by Each Nostril route daily 16 g 2 10/05/2021 Active Formoterol Fumarate (Perforomist) 20 MCG/2 ML solution for nebulization (15 sources) Start: 07-22-2014 take 20 ug by inhalation twice daily Formoterol Fumarate (Perforomist) 20 MCG/2 ML solution for nebulization Active 20 MCG INHALATION TWICE A DAY July 22, 2014 9:37pm Start: 07-22-2014 End: 10-30-2022 take 20 ug by inhalation twice daily Formoterol Fumarate (Perforomist) 20 MCG/2 ML solution for nebulization Discontinued 20 ug INHALATION TWICE A DAY July 22, 2014 12:00am October 30, 2022 2:05pm breathing Start: 07-22-2014 End: 10-30-2022 take 20 ug by inhalation twice daily Formoterol Fumarate (Perforomist) 20 MCG/2 ML solution for nebulization Discontinued 20 MCG INHALATION TWICE A DAY July 21, 2014 11:00pm October 30, 2022 1:05pm Start: 07-22-2014 End: 10-30-2022 take 20 ug by inhalation twice daily Formoterol Fumarate (Perforomist) 20 MCG/2 ML solution for nebulization Discontinued 20 MCG INHALATION TWICE A DAY July 22, 2014 12:00am October 30, 2022 2:05pm Start: 07-22-2014 take 20 ug by inhala tion twice daily Formoterol Fumarate (Perforomist) 20 MCG/2 ML solution for nebulization Active 20 MCG INHALATION TWICE A DAY July 21, 2014 11:00pm Start: 07-22-2014 take 20 ug by inhala tion twice daily Formoterol Fumarate (Perforomist) 20 MCG/2 ML solution for nebulization Active 20 MCG INHALATION TWICE A DAY July 22, 2014 12:00am gabapentin 100 mg oral capsule (2 sources) Anti-epileptic Agent Start: 02-03-2021 End: 04-05-2021 gabapentin (NEURONTIN) 100 MG capsule Indications: Post herpetic neuralgia Increase to 2 tabs BID 120 capsule 1 02/03/2021 04/05/2021 Active Start: 01-25-2021 End: 02-09-2021 gabapentin (NEURONTIN) 100 M G capsule Indications: Post herpetic neuralgia Take 1 capsule by mouth 2 times daily for 15 days. Intended supply: 30 days 30 capsule 0 01/25/2021 02/09/2021 Active hydroCHLOROthiazide 25 mg / triamterene 37.5 mg oral capsule (19 sources) Potassium-sparing Diuretic, Thiazide Diuretic Start: 11-04-2020 take 1 capsule by mouth once daily triamterene-hydroCHLOROthiazide (DYAZIDE) 37.5-25 MG per capsule Take 1 capsule by mouth daily 90 capsule 1 11/04/2020 Active Start: 07-08-2020 take 1 capsule by mouth once daily triamterene-hydroCHLOROthiazide (DYAZIDE ) 37.5-25 MG per capsule Take 1 capsule by mouth daily 90 capsule 1 07/08/2020 Active Start: 12-10-2019 take 1 capsule by mouth once daily triamterene-hydroCHLOROthiazide (DYAZIDE ) 37.5-25 MG per capsule Take 1 capsule by mouth daily 90 capsule 1 12/10/2019 Active Start: 07-01-2019 take 1 capsule by mouth once daily triamterene-hydroCHLOROthiazide (DYAZIDE ) 37.5-25 MG per capsule Take 1 capsule by mouth daily 90 capsule 1 07/01/2019 Active Start: 01-20-2019 take 1 capsule by mouth once daily triamterene-hydrochlorothiazide (DYAZIDE ) 37.5-25 MG per capsule Take 1 capsule by mouth daily 90 capsule 1 01/20/2019 Active End: 08-21-2024 take 1 tablet by mouth once daily triamterene-hydrochlorothiazide (Maxzide -25) 37.5-25 MG tablet Take 1 tablet by mouth daily. 08/21/2024 Discontinued (Alternate therapy) ipratropium bromide 0.2 mg/ml inhalation solution (20 sources) Anticholinergic Start: 03-28-2023 ipratropium (A trovent) 0.02 % nebulizer solution 0.5 mg Start: 11-26-2020 ipratropium (A TROVENT) 0.02 % nebulizer solution Inhale into the lungs 0 11/26/2020 Active Start: 11-26-2020 End: 10-30-2022 take 1 dose by inhalation twice daily ipratropium (Atrovent) 0.02 % nebulizer solution INHALE THE CONTENTS OF 1 VIAL VIA NEBULIZER 2 TIMES DAILY 02/08/2022 Active Start: 10-08-2020 End: 10-08-2020 ipratropium (ATROVENT) 0.02 % nebulizer solution 0.5 mg IRON, FERROUS SULFATE, PO (6 sources) take 99 mg by mouth once daily IRON, FERROUS SULFATE, PO Take 99 mg by mouth daily. Active levoFLOXacin 500 mg oral tablet (20 sources) Quinolone Antimicrobial Start: 05-19-19 End: 05-29-19 take 1 tablet by mouth once daily levoFLOXacin (Levaquin) 500 MG tablet Indications: COPD exacerbation (HCC) Take 1 tablet (500 mg) by mouth daily for 10 days. 10 tablet 05/19/2024 05/29/2024 Active Start: 03-09-2024 End: 08-26-2024 take 1 tablet by mouth once daily Levofloxacin 750 mg tablet Discontinued 750 mg PO DAILY 7 0 March 09, 2024 1:00am August 26, 2024 12:59pm Start: 12-12-2023 End: 12-19-2023 take 1 tablet by mouth once daily levoFLOXacin (Levaquin) 750 MG tablet Indications: COPD exacerbation (HCC) Take 1 tablet (750 mg) by mouth daily for 7 days. 7 tablet 12/12/2023 12/19/2023 Start: 09-19-2023 End: 10-10-2023 take 1 tablet by mouth once daily levoFLOXacin (Levaquin) 250 MG tablet Indications: COPD with acute exacerbation (HCC) Take 1 tablet (250 mg) by mouth daily for 21 days. 21 tablet 0 09/19/2023 10/10/2023 Active Start: 08-21-2023 End: 09-04-2023 take 1 tablet by mouth once daily levoFLOXacin (Levaquin) 500 MG tablet Take 1 tablet (500 mg) by mouth daily for 14 days. 14 tablet 0 08/21/2023 09/04/2023 Active Start: 05-21-2023 End: 05-28-2023 take 1 tablet by mouth once daily levoFLOXacin (Levaquin) 250 MG tablet Indications: COPD exacerbation (HCC) Take 1 tablet (250 mg) by mouth daily for 7 days. 7 tablet 0 05/21/2023 05/28/2023 Active Start: 04-26-2023 End: 05-03-2023 take 1 tablet by mouth once daily levoFLOXacin (Levaquin) 250 MG tablet Indications: COPD exacerbation (HCC) Take 1 tablet (250 mg) by mouth daily for 7 days. 7 tablet 0 04/26/2023 05/03/2023 Active Start: 02-06-2023 End: 02-16-2023 take 1 tablet by mouth once daily levoFLOXacin (Levaquin) 500 MG tablet Indications: COPD exacerbation (HCC) Take 1 tablet (500 mg) by mouth daily for 10 days. 10 tablet 0 02/06/2023 02/16/2023 Active Start: 06-26-2022 End: 07-18-2022 take 1 tablet by mouth once daily levoFLOXacin (Levaquin) 750 MG tablet Indications: COPD with acute exacerbation (HCC) Take 1 tablet (750 mg) by mouth daily for 7 days. 7 tablet 0 07/11/2022 07/18/2022 Start: 06-20-2022 End: 10-30-2022 take 1 tablet by mouth once daily Levofloxacin 500 mg tablet Discontinued 500 mg PO DAILY 7 June 20, 2022 1:00am October 30, 2022 2:05pm Start: 02-14-2022 End: 06-02-2022 take 1 tablet by mouth once daily Levofloxacin 500 mg tablet Discontinued 500 mg PO DAILY 6 February 14, 2022 12:00am May 29, 2022 9:26am Start: 07-27-2021 take 500 mg by mouth once mikala y Levofloxacin Active 500 MG PO DAILY July 27, 2021 10:40pm Start: 02-13-2021 take 750 mg by mouth once mikala y Levofloxacin Active 750 MG PO DAILY February 13, 2021 10:21am Start: 10-08-2020 End: 10-15-2020 take 1.5 tablets by mouth once daily levoFLOXacin (LEVAQUIN) 500 MG tablet Take 1.5 tablets by mouth daily for 7 days 11 tablet 0 10/08/2020 10/15/2020 Active levothyroxine sodium 0.1 mg oral tablet (20 sources) l-Thyroxine Start: 07-22-2014 End: 12-18-2035 take 1 tablet by mouth once daily levothyroxine (Synthroid, Levoxyl) 100 MCG tablet Indications: Hypothyroidism, unspecified type Take 1 tablet (100 mcg) by mouth daily for 360 doses. 90 tablet 3 05/19/2024 05/14/2025 Active lidocaine 0.05 mg/mg medicated patch (7 sources) Antiarrhythmic, Amide Local Anesthetic Start: 05-02-2022 End: 06-13-2022 apply 1 dose transdermal route once daily lidocaine (Lidoderm) 5 % patch Indications: Closed fracture of one rib of right side with routine healing, subsequent encounter Apply 1 patch topically daily. Apply to painful area 12 hours per day, remove for 12 hours. 14 patch 2 05/02/2022 06/13/2022 Active Start: 01-07-2021 lidocaine 2 % injection EVERY 6 HOURS 0 01/07/2021 Active loperamide hydrochloride 2 mg oral tablet (1 source) Opioid Agonist Start: 09-26-2022 End: 10-06-2022 take 1 tablet by mouth three times daily as needed loperamide (Imodium A-D) 2 MG tablet Indications: Diarrhea, unspecified type Take 1-2 tablets (2-4 mg) by mouth 3 times daily as needed for diarrhea for up to 10 days. 20 tablet 0 09/26/2022 10/06/2022 Active Multiple Vitamins-Minerals (MULTIVITAMIN ADULT EXTRA C PO) (7 sources) Start: 01-21-2020 Multiple Vitamins-Minerals (MULTIVITAMIN ADULT EXTRA C PO) DAILY 0 01/21/2020 Active Multiple Vitamins-Minerals (THERAPEUTIC MULTIVITAMIN-MINERALS ) tablet (14 sources) take 1 tablet by mouth once daily Multiple Vitamins-Minerals (THERAPEUTIC MULTIVITAMIN-MINERA LS) tablet Take 1 tablet by mouth daily 0 Active Multivitamin preparation (3 sources) Start: 01-21-2020 Multivitamin A ctive 1 EACH PO DAILY January 21, 2020 1:09am Start: 01-21-2020 Multivitamin A ctive 1 EACH PO DAILY January 21, 2020 12:00am mupirocin 20 mg/ml topical cream (5 sources) RNA Synthetase Inhibitor Antibacterial Start: 03-23-2023 End: 04-02-2023 mupirocin (Bactroban) 2 % cream Apply topically 3 times daily for 10 days. 15 g 0 03/23/2023 04/02/2023 Active naproxen 500 mg oral tablet (1 source) Nonsteroidal Anti-inflammatory Drug Start: 03-09-2020 take 1 tablet by mouth twice daily naproxen (NAPROSYN) 500 MG tablet Take 1 tablet by mouth 2 times daily 60 tablet 0 03/09/2020 Active nystatin 412004 unt/ml oral suspension (14 sources) Polyene Antifungal Start: 06-18-2024 End: 06-28-2024 take 5 mL by mouth four times daily nystatin (Mycostatin) [id number] UNIT/ML suspension Indications: Thrush, oral Take 5 mL (500,000 Units) by mouth 4 times daily for 10 days. Swish in mouth and spit out 200 mL 06/18/2024 06/28/2024 Active Start: 02-14-2022 End: 05-29-2022 take 1 mL by mouth twice daily Nystatin 100,000 unit/m L suspension Discontinued 1 mL PO TWICE A DAY February 14, 2022 12:00am May 29, 2022 9:26am swish and swallow Start: 02-14-2022 End: 05-29-2022 take 1 mL by mouth twice daily Nystatin Discontinued 1 ML PO TWICE A DAY 09 02February 13, 2022 11:00pm May 29, 2022 8:26am swish and swallow omeprazole 20 mg delayed release oral capsule (20 sources) Proton Pump Inhibitor Start: 07-22-2014 End: 02-20-2024 take 1 capsule by mouth once daily omeprazole (PriLOSEC) [address] capsule Indications: Gastroesophageal reflux disease without esophagitis Take 1 capsule (20 mg) by mouth daily. 90 capsule 3 02/20/2024 Active Oxygen (20 sources) OXYGEN Inhale 2 L/min into the lungs nightly Nightly & PRN 2-4L/min 0 Active potassium citrate 99 mg oral tablet (4 sources) Start: 10-30-2023 take 1 capsule by mouth once daily Potassium Citrate 99 mg capsule Active 99 mg PO DAILY October 30, 2023 12:00am Complies with drug therapy predniSONE 10 mg oral tablet (20 sources) Start: 12-03-2024 End: 12-31-2024 predniSONE (Deltasone) 10 MG tablet Indications: COPD with acute exacerbation (HCC) Take 4 tabs (40mg) daily for 3 days, then 3 tabs (30mg) daily for 3 days, 2 tabs (20mg) daily for 3 days, 1 tab (10 mg) daily for 3 days. 30 tablet 1 12/31/2024 Active Start: 11-25-2024 End: 12-03-2024 predniSONE (Deltasone) 10 MG tablet 5 qday for 3 days, then 3 qday for 3 days, then one qday till gone 27 tablet 11/25/2024 12/03/2024 Discontinued (Therapy completed) Start: 11-24-2024 End: 12-06-2024 take 3 tablets by mouth twice daily predniSONE (Deltasone) 10 MG tablet Indications: COPD with acute exacerbation (HCC) Take 3 tablets (30 mg) by mouth 2 times daily for 3 days, THEN 2 tablets (20 mg) daily for 3 days, THEN 1 tablet (10 mg) daily for 3 days, THEN 0.5 tablets (5 mg) daily for 3 days. Take 20 mg (2 tabs) once daily for 7 days, then 10 mg (1 tab) once daily for 7 days, then 5 mg (0.5 tab) daily for 14 days. 35 tablet 11/24/2024 12/03/2024 Discontinued (Therapy completed) Start: 10-23-2024 End: 10-22-2024 predniSONE (Deltasone) 10 MG tablet Indications: COPD with acute exacerbation (HCC) Take 3 tablets (30 mg) by mouth 2 times daily for 3 days, THEN 2 tablets (20 mg) daily for 3 days, THEN 1 tablet (10 mg) daily for 3 days, THEN 0.5 tablets (5 mg) daily for 3 days. Take 20 mg (2 tabs) once daily for 7 days, then 10 mg (1 tab) once daily for 7 days, then 5 mg (0.5 tab) daily for 14 days. Do not start before October 23, 2024. 13 tablet 10/23/2024 10/22/2024 Discontinued (Therapy completed) Start: 10-23-2024 End: 11-04-2024 predniSONE (Deltasone) 10 MG tablet Indications: COPD with acute exacerbation (HCC) Take 3 tablets (30 mg) by mouth 2 times daily for 3 days, THEN 2 tablets (20 mg) daily for 3 days, THEN 1 tablet (10 mg) daily for 3 days, THEN 0.5 tablets (5 mg) daily for 3 days. Take 20 mg (2 tabs) once daily for 7 days, then 10 mg (1 tab) once daily for 7 days, then 5 mg (0.5 tab) daily for 14 days. Do not start before October 23, 2024. 13 tablet 10/23/2024 11/04/2024 Active Start: 07-30-2024 End: 08-15-2024 take 5 tablets by mouth once daily, then take 4 tablets by mouth once daily, then take 3 tablets by mouth once daily, then take 2 tablets by mouth once daily, then take 1 tablet by mouth once daily predniSONE (Deltasone) 10 MG tablet Indications: COPD exacerbation (HCC) Take 5 tablets (50 mg) by mouth daily for 4 days, THEN 4 tablets (40 mg) daily for 4 days, THEN 3 tablets (30 mg) daily for 4 days, THEN 2 tablets (20 mg) daily for 2 days, THEN 1 tablet (10 mg) daily for 2 days. 54 tablet 07/30/2024 08/12/2024 Discontinued (Therapy completed) Start: 06-05-2024 End: 07-30-2024 predniSONE (Deltasone) 10 MG tablet Indications: COPD with acute exacerbation (HCC) Take 20 mg (2 tabs) once daily for 7 days, then 10 mg (1 tab) once daily for 7 days, then 5 mg (0.5 tab) daily for 14 days. 28 tablet 07/02/2024 07/30/2024 Discontinued Start: 05-28-2024 End: 06-05-2024 predniSONE (Deltasone) 10 MG tablet Indications: COPD with acute exacerbation (HCC) Take 4 tabs (40mg) daily for 3 days, then 3 tabs (30mg) daily for 3 days, 2 tabs (20mg) daily for 3 days, 1 tab (10 mg) daily for 3 days. 30 tablet 05/28/2024 06/05/2024 Discontinued Start: 05-19-2024 End: 05-28-2024 predniSONE (Deltasone) 20 MG tablet Indications: COPD exacerbation (HCC) Take 3 tabs (60mg) daily for 5 days, then take 2 tabs (40mg) daily for 2 days, then take 1 tab (20mg) daily for 2 days. 21 tablet 05/19/2024 05/28/2024 Start: 03-24-2024 End: 05-19-2024 predniSONE (Deltasone) 10 MG tablet Indications: COPD exacerbation (HCC) Take 4 tabs (40mg) daily for 3 days, then 3 tabs (30mg) daily for 3 days, 2 tabs (20mg) daily for 3 days, 1 tab (10 mg) daily for 3 days. 30 tablet 03/24/2024 05/19/2024 Discontinued (Therapy completed) Start: 03-09-2024 End: 12-03-2024 take 2 tablets by mouth once daily Prednisone 20 mg tablet Active 40 mg PO DAILY 14 7 March 09, 2024 1:00am On Hold: MD Galvan Complies with drug therapy Start: 02-20-2024 End: 05-19-2024 predniSONE (Deltasone) 10 MG tablet Indications: COPD exacerbation (HCC) Take 5 tabs for 5 days, then 4 tabs for 2 days, then 3 tabs for 2 days, then 2 tabs for 2 days, then one q day till gone 45 tablet 02/20/2024 04/11/2024 Discontinued (Reorder) Start: 12-12-2023 End: 02-20-2024 predniSONE (Deltasone) 10 MG tablet Indications: COPD exacerbation (HCC) Take 4 tabs (40mg) daily for 3 days, then 3 tabs (30mg) daily for 3 days, 2 tabs (20mg) daily for 3 days, 1 tab (10 mg) daily for 3 days. 30 tablet 12/12/2023 02/20/2024 Discontinued (Therapy completed) Start: 10-24-2023 End: 11-02-2023 predniSONE (Deltasone) 20 MG tablet Indications: COPD exacerbation (HCC) Take 3 tabs (60mg) daily for 5 days, then take 2 tabs (40mg) daily for 2 days, then take 1 tab (20mg) daily for 2 days. 21 tablet 1 10/24/2023 11/02/2023 Active Start: 09-19-2023 End: 09-28-2023 predniSONE (Deltasone) 20 MG tablet Indications: COPD with acute exacerbation (HCC) Take 3 tabs (60mg) daily for 5 days, then take 2 tabs (40mg) daily for 2 days, then take 1 tab (20mg) daily for 2 days. 21 tablet 0 09/19/2023 09/28/2023 Active Start: 07-18-2023 End: 09-24-2023 predniSONE (Deltasone) 10 MG tablet Indications: Centrilobular emphysema (HCC) , Very severe chronic obstructive pulmonary disease (HCC) Take 4 tabs (40mg) daily for 3 days, then 3 tabs (30mg) daily for 3 days, 2 tabs (20mg) daily for 3 days, 1 tab (10 mg) daily for 3 days. 30 tablet 1 08/21/2023 09/19/2023 Discontinued (Therapy completed) Start: 07-04-2023 End: 07-13-2023 predniSONE (Deltasone) 20 MG tablet Indications: COPD exacerbation (HCC) Take 3 tabs (60mg) daily for 3 days, then take 2 tabs (40mg) daily for 3 days, then take 1 tab (20mg) daily for 3 days. 18 tablet 0 07/04/2023 07/13/2023 Active Start: 06-11-2023 End: 06-16-2023 take 1 tablet by mouth twice daily predniSONE (Deltasone) 20 MG tablet Indications: COPD exacerbation (HCC) Take 1 tablet (20 mg) by mouth 2 times daily for 10 doses. 10 tablet 0 06/11/2023 06/16/2023 Active Start: 05-21-2023 End: 06-11-2023 take 1 tablet by mouth once daily predniSONE (Deltasone) 20 MG tablet Indications: COPD exacerbation (HCC) Take 1 tablet (20 mg) by mouth daily for 21 days. 7 tablet 2 05/21/2023 06/11/2023 Discontinued (Reorder) Start: 04-26-2023 End: 05-03-2023 take 1 tablet by mouth once daily predniSONE (Deltasone) 20 MG tablet Indications: COPD exacerbation (HCC) Take 1 tablet (20 mg) by mouth daily for 7 days. 7 tablet 0 04/26/2023 05/03/2023 Active Start: 04-12-2023 End: 10-30-2023 take 2 tablets by mouth once daily Prednisone 20 mg tablet Discontinued 40 mg PO DAILY 14 April 12, 2023 1:00am October 30, 2023 1:09pm Start: 04-12-2023 take 40 mg by mouth once daily Prednisone Active 40 MG PO DAILY April 12, 2023 12:00am Start: 03-23-2023 End: 04-01-2023 predniSONE (Deltasone) 20 MG tablet Indications: COPD exacerbation (HCC) Take 3 tabs (60mg) daily for 3 days, then take 2 tabs (40mg) daily for 3 days, then take 1 tab (20mg) daily for 3 days. 18 tablet 0 03/23/2023 04/01/2023 Active Start: 03-20-2023 End: 03-23-2023 take 2 tablets by mouth once daily predniSONE (Deltasone) 20 MG tablet Indications: Centrilobular emphysema (HCC) Take 2 tablets (40 mg) by mouth daily for 5 days. 10 tablet 0 03/20/2023 03/23/2023 Discontinued Start: 02-06-2023 End: 02-11-2023 take 3 tablets by mouth once daily predniSONE (Deltasone) 20 MG tablet Indications: COPD exacerbation (HCC) Take 3 tablets (60 mg) by mouth daily for 5 days. 15 tablet 0 02/06/2023 02/11/2023 Active Start: 01-02-2023 take 5 mg by mouth once daily Prednisone Active 5 MG PO DAILY January 01, 2023 11:00pm Start: 01-01-2023 End: 10-30-2023 take 5 mg by mouth once daily Prednisone 10 mg tablet Discontinued 5 mg PO DAILY January 02, 2023 12:00am October 30, 2023 1:08pm Start: 12-06-2022 End: 01-05-2023 predniSONE (Deltasone) 10 MG tablet Indications: Centrilobular emphysema (HCC) Take 4 tabs (40mg) daily for 3 days, then 3 tabs (30mg) daily for 3 days, 2 tabs (20mg) daily for 3 days, 1 tab (10 mg) daily for 3 days. 30 tablet 0 12/06/2022 01/01/2023 Discontinued (Reorder) Start: 10-10-2022 End: 10-19-2022 predniSONE (Deltasone) 20 MG tablet Take 3 tabs (60mg) daily for 3 days, then take 2 tabs (40mg) daily for 3 days, then take 1 tab (20mg) daily for 3 days. 18 tablet 0 10/10/2022 10/19/2022 Active Start: 08-14-2022 End: 09-13-2022 predniSONE (Deltasone) 10 MG tablet Indications: COPD exacerbation (HCC) Take 4 tabs (40mg) daily for 3 days, then 3 tabs (30mg) daily for 3 days, 2 tabs (20mg) daily for 3 days, 1 tab (10 mg) daily for 3 days. 30 tablet 0 08/14/2022 09/06/2022 Discontinued Start: 07-11-2022 End: 07-21-2022 take 5 tablets by mouth once daily, then take 4 tablets by mouth once daily, then take 3 tablets by mouth once daily, then take 2 tablets by mouth once daily, then take 1 tablet by mouth once daily predniSONE (Deltasone) 10 MG tablet Indications: COPD with acute exacerbation (HCC) Take 5 tablets (50 mg) by mouth daily for 2 days, THEN 4 tablets (40 mg) daily for 2 days, THEN 3 tablets (30 mg) daily for 2 days, THEN 2 tablets (20 mg) daily for 2 days, THEN 1 tablet (10 mg) daily for 2 days. 30 tablet 0 07/11/2022 07/21/2022 Start: 06-20-2022 End: 10-30-2022 take 6 tablets by mouth once daily, then take 4 tablets by mouth once daily, then take 2 tablets by mouth once daily, then take 1 tablet by mouth once daily Prednisone 10 mg tablet Discontinued 10 mg PO DAILY 42 June 20, 2022 1:00am October 30, 2022 2:05pm 6 po qd x 2 days, 4 po qd x 3 days, 2 po qd x 3 days, 1 po qd x 3 days Start: 05-26-2022 End: 05-30-2022 take 2 tablets by mouth twice daily predniSONE (Deltasone) 20 MG tablet Indications: COPD with acute exacerbation (CMS/HCC) (HCC) Take 2 tablets (40 mg) by mouth 2 times daily for 4 days. 16 tablet 0 05/26/2022 05/30/2022 Active Start: 03-24-2022 End: 07-11-2022 predniSONE (Deltasone) 10 MG tablet One qid for 2 days One tid for 2 days One bid for 2 days One daily for 2 days 20 tablet 0 03/24/2022 07/11/2022 Discontinued (Therapy completed) Start: 02-14-2022 End: 05-29-2022 take 2 tablets by mouth once daily Prednisone 20 MG tablet Discontinued 40 mg PO DAILY February 14, 2022 6:53pm April 23, 2022 4:39am Start: 02-14-2022 End: 05-29-2022 take 40 mg by mouth once daily Prednisone Discontinued 40 MG PO DAILY February 14, 2022 5:53pm April 23, 2022 3:39am Start: 01-25-2022 End: 02-04-2022 take 1 tablet by mouth once daily predniSONE (DELTASONE) 20 MG tablet Indications: Centrilobular emphysema (HCC) Take 1 tablet by mouth daily for 10 days 10 tablet 0 01/25/2022 02/04/2022 Active Start: 01-02-2022 predniSONE (DE LTASONE) 10 MG tablet one q.i.d. for 2 days then one t.i.d. for 2 days then one b.i.d. for 2 days and one daily for 2 days. 20 tablet 1 01/02/2022 Active Start: 12-19-2021 take 1 tablet by octavio once daily predniSONE (DELTASONE) 10 MG tablet Indications: Upper respiratory tract infection, unspecified type Take 1 tablet by mouth daily Take 40mg (4tab) PO x3 days, then 30mg (3tab) x3 days, then 20mg (2 tab) x3 days, then 10mg (1 tab) x3 days. Take w food, same time daily 30 tablet 0 12/19/2021 Active Start: 10-28-2021 End: 05-29-2022 Prednisone 20 mg tablet Disc ontinued 0 .ROUTE .COMPLEX 24 0 April 23, 2022 4:41am May 29, 2022 9:40am 3 tabs p.o. daily days 1 through 4, then 2 tabs p.o. daily days 5 through 8, then 1 tab p.o. daily day 9 through 12 Start: 10-28-2021 End: 04-23-2022 take 60 mg by mouth once daily Prednisone Discontinued 60 MG PO DAILY February 13, 2022 11:00pm April 23, 2022 3:39am Start: 08-18-2021 predniSONE (DE LTASONE) 10 MG tablet one q.i.d. for 2 days then one t.i.d. for 2 days then one b.i.d. for 2 days and one daily for 2 days. 20 tablet 0 08/18/2021 Active Start: 07-27-2021 take 50 mg by mouth once daily Prednisone Active 50 MG PO DAILY 14 09July 27, 2021 10:41pm Start: 02-13-2021 Prednisone Act daisy 10 MG PO DAILY February 13, 2021 10:25am 4 tablets x 4 days, 3 tablets x 4 days, 2 tablets x 4 days, 1 tablet x 4 days Start: 02-03-2021 predniSONE (DE LTASONE) 10 MG tablet one q.i.d. for 2 days then one t.i.d. for 2 days then one b.i.d. for 2 days and one daily for 2 days. 20 tablet 0 02/03/2021 Active Start: 08-20-2020 take 10 mg by mouth once daily Prednisone Active 10 MG PO DAILY November 26, 2020 10:28am Start: 04-13-2020 take 1 tablet by octavio th once daily predniSONE (DELTASONE) 10 MG tablet Take 1 tablet by mouth daily 60 tablet 1 04/13/2020 Active Start: 01-07-2020 End: 01-07-2020 predniSONE (DELTASONE) table t 40 mg Start: 01-07-2020 End: 01-19-2020 predniSONE (DELTASONE) 10 MG tablet Take 4 tablets by mouth daily for 3 days, THEN 3 tablets daily for 3 days, THEN 2 tablets daily for 3 days, THEN 1 tablet daily for 3 days. Take by oral route 4 tabs x 3 days, then 3 tabs x 3 days, then 2 tabs x 3 days, then 1 tab x 3 days, then discontinue. Take with food.. 30 tablet 0 01/07/2020 01/19/2020 Active Start: 07-01-2019 End: 07-31-2019 take 1 tablet by mouth once daily predniSONE (DELTASONE) 10 MG tablet Take 1 tablet by mouth daily 30 tablet 1 07/01/2019 07/31/2019 Active Start: 05-27-2019 End: 06-26-2019 take 1 tablet by mouth once daily predniSONE (DELTASONE) 10 MG tablet Take 1 tablet by mouth daily 30 tablet 1 05/27/2019 06/26/2019 Active Start: 01-25-2019 predniSONE (DE LTASONE) 10 MG tablet one q.i.d. for 2 days then one t.i.d. for 2 days then one b.i.d. for 2 days and one daily for 2 days. 20 tablet 0 01/25/2019 Active pregabalin 25 mg oral capsule (1 source) Start: 02-17-2021 take 1 capsule by mouth twice daily pregabalin (LYRICA) 25 MG capsule Indications: Postherpetic neuralgia Take 1 capsule by mouth 2 times daily for 10 days. 20 capsule 0 02/17/2021 Active sodium chloride flush 0.9 % injection 3 mL (1 source) Start: 01-07-2020 sodium chlorid e flush 0.9 % injection 3 mL turmeric extract 500 mg oral capsule (14 sources) Turmeric 500 MG CAPS Take by mouth 0 Active Turmeric 500 MG CAPS Take by mouth 0 Active Completed/Discontinued Medications Medication Drug Class(es) Dates Sig (Normalized) Sig (Original) acetaminophen 325 mg / oxyCODONE hydrochloride 5 mg oral tablet (11 sources) Opioid Agonist Start: 04-23-2022 End: 01-02-2023 take 1 tablet by mouth every six hours as needed for pain Oxycodone-Acetamino phen 1 TABLET tablet Discontinued 1 {tbl} PO EVERY 6 HOURS NEEDED as needed for Pain 12 3 0 April 23, 2022 January 02, 2023 1:26pm Fracture of rib of right side Fracture of one rib, right side, initial encounter for closed fracture Start: 04-23-2022 End: 01-02-2023 take 1 tablet by mouth every six hours as needed Oxycodone-Acetaminophen Discontinued 1 TABLET PO EVERY 6 HOURS NEEDED 12 3 April 23, 2022 January 02, 2023 12:26pm amoxicillin 120 mg/ml / clavulanate 8.58 mg/ml oral suspension (20 sources) Penicillin-class Antibacterial Start: 10-20-2024 End: 12-03-2024 take 5 mL by mouth twice daily amoxicillin-clavulanate (Augmentin ES-600) 600-42.9 MG/5ML suspension Indications: Wheezing , COPD exacerbation (HCC) Take 5 mL by mouth 2 times daily for 10 days. 10 mL 10/20/2024 12/03/2024 Discontinued (Therapy completed) Start: 08-12-2024 End: 08-22-2024 take 5 mL by mouth twice daily amoxicillin-clavulanate (Augmentin) 600-42.9 MG/5ML suspension Indications: Chronic frontal sinusitis Take 5 mL by mouth 2 times daily for 10 days. 100 mL 08/12/2024 08/22/2024 Active Start: 01-02-2023 End: 10-30-2023 Amoxicillin-Pot Clavulanate 875-125 mg tablet Discontinued 1 {tbl} PO Q12H January 02, 2023 12:00am October 30, 2023 1:06pm Start: 01-02-2023 take 1 tablet by octavio th every twelve hours Amoxicillin-Pot Clavulanate Active 1 TABLET PO Q12H January 01, 2023 11:00pm Start: 07-24-2022 End: 10-10-2022 take 1 tablet by mouth every twelve hours amoxicillin-clavulanate (Augmentin) 875-125 MG tablet Take 1 tablet by mouth in the morning and 1 tablet in the evening. 0 07/24/2022 10/10/2022 Discontinued (Therapy completed) bacitracin 0.5 unt/mg / polymyxin b 10 unt/mg ophthalmic ointment (13 sources) Polymyxin-class Antibacterial Start: 02-14-2022 End: 05-29-2022 Bacitracin-Polymyxin B 500-10,000 unit/gram ointment Discontinued 0.25 [in_us] RIGHT EYE EVERY 6 HOURS 3.5 February 14, 2022 12:00am May 29, 2022 9:24am Start: 02-14-2022 End: 05-29-2022 Bacitracin-Polymyxin B Disco ntinued 0.25 INCH RIGHT EYE EVERY 6 HOURS 3.5 February 13, 2022 11:00pm May 29, 2022 8:24am calcium chloride 0.0014 meq/ml / potassium chloride 0.004 meq/ml / sodium chloride 0.103 meq/ml / sodium lactate 0.028 meq/ml injectable solution (2 sources) Start: 01-01-2025 End: 01-01-2025 take 125 mL intravenously every hour 125 mL/hr, IntraVENous, Continuous, Starting on Lana 01/01/25 at 1715, Recovery (only) cholecalciferol 0.05 mg oral capsule (20 sources) Vitamin D Start: 05-23-2019 End: 05-29-2022 take 1 capsule by mouth once daily Cholecalciferol (Vitamin D3) 50 mcg (2,000 unit) capsule Discontinued 2000 U PO DAILY May 29, 2022 9:25am May 29, 2022 9:43am supplement Start: 01-20-2019 take 1 capsule by [facility] once daily Cholecalciferol (Vitamin D3) 25 mcg (1,000 unit) capsule Active 25 ug PO DAILY May 29, 2022 1:00am Complies with drug therapy Start: 01-20-2019 take 1 capsule by [facility] twice daily VITAMIN D3 HIGH POTENCY 1000 units CAPS Take 1 capsule by mouth 2 times daily 180 capsule 1 01/20/2019 Active ciprofloxacin 3 mg/ml ophthalmic solution (5 sources) Quinolone Antimicrobial Start: 12-20-2024 End: 12-25-2024 Ciprofloxacin Hcl 0.3 % drops Discontinued 1 NMA OPHTHALMIC Q4H 10 5 0 December 20, 2024 12:00am December 24, 2024 12:00am December 25, 2024 12:06am administer while awake Start: 04-26-2023 End: 05-03-2023 ciprofloxacin (Ciloxan) 0.3 % ophthalmic solution Indications: Acute bacterial conjunctivitis of right eye Administer 1 drop into both eyes in the morning and 1 drop at noon and 1 drop before bedtime. Do all this for 7 days. 5 mL 0 04/26/2023 05/03/2023 Active Start: 03-09-2021 End: 03-16-2021 take 1 tablet by mouth twice daily ciprofloxacin (CIPRO) 500 MG tablet Indications: COPD exacerbation (HCC) , LRTI (lower respiratory tract infection) Take 1 tablet by mouth 2 times daily for 7 days 14 tablet 0 03/09/2021 03/16/2021 Active Start: 02-06-2019 End: 02-16-2019 take 1 tablet by mouth twice daily ciprofloxacin (CIPRO) 500 MG tablet Take 1 tablet by mouth 2 times daily for 10 days 20 tablet 0 02/06/2019 02/16/2019 Active clarithromycin 500 mg oral tablet (20 sources) Macrolide Antimicrobial Start: 02-08-2021 End: 02-13-2021 take 1 tablet by mouth twice daily Clarithromycin 500 mg tablet Discontinued 500 mg PO TWICE A DAY February 10, 2021 3:18am February 13, 2021 10:21am infection Start: 12-09-2020 End: 12-19-2020 take 1 tablet by mouth twice daily clarithromycin (BIAXIN) 500 MG tablet Take 1 tablet by mouth 2 times daily for 10 days 20 tablet 0 12/09/2020 12/19/2020 Active clindamycin 300 mg oral capsule (6 sources) Lincosamide Antibacterial Start: 07-30-2024 End: 08-12-2024 take 1 capsule by mouth twice daily clindamycin (Cleocin) 300 MG capsule Indications: COPD exacerbation (HCC) Take 1 capsule (300 mg) by mouth 2 times daily for 7 days. 14 capsule 07/30/2024 08/12/2024 Discontinued (Therapy completed) Start: 06-11-2023 End: 06-18-2023 take 1 capsule by mouth three times daily clindamycin (Cleocin) 300 MG capsule Take 1 capsule (300 mg) by mouth 3 times daily for 7 days. 21 capsule 0 06/11/2023 06/18/2023 Active diclofenac sodium 0.01 mg/mg topical gel (18 sources) Nonsteroidal Anti-inflammatory Drug Start: 02-06-2023 End: 05-21-2023 Diclofenac Sodium (Voltaren) 1 % gel Apply 2 g topically 2 times daily. 150 g 1 02/06/2023 05/21/2023 Discontinued 1 ml diphenhydrAMINE hydrochloride 50 mg/ml cartridge (2 sources) Histamine-1 Receptor Antagonist Start: 01-01-2025 End: 01-01-2025 12.5 mg, IntraVENous, Once PRN, itching, Starting on Lana 01/01/25 at 1700, For 1 dose, Recovery (only) doxycycline hyclate 100 mg oral capsule (20 sources) Tetracycline-class Drug Start: 07-02-2024 End: 07-12-2024 doxycycline (Vibramycin) 100 MG capsule Indications: COPD with acute exacerbation (HCC) Take 1 capsule (100 mg) by mouth 2 times daily for 10 days. Take with at least 8 ounces (large glass) of water, do not lie down for 30 minutes after 20 capsule 07/02/2024 07/12/2024 Start: 04-11-2024 End: 04-21-2024 doxycycline (Vibramycin) 100 MG capsule Take 1 capsule (100 mg) by mouth 2 times daily for 10 days. Take with at least 8 ounces (large glass) of water, do not lie down for 30 minutes after 20 capsule 04/11/2024 04/21/2024 Active Start: 03-23-2023 End: 04-02-2023 doxycycline (Vibramycin) 100 MG capsule Indications: COPD exacerbation (HCC) Take 1 capsule (100 mg) by mouth 2 times daily for 10 days. Take with at least 8 ounces (large glass) of water, do not lie down for 30 minutes after 20 capsule 0 03/23/2023 04/02/2023 Active Start: 01-24-2023 End: 02-03-2023 doxycycline (Vibramycin) 100 MG capsule Take 1 capsule (100 mg) by mouth 2 times daily for 10 days. Take with at least 8 ounces (large glass) of water, do not lie down for 30 minutes after 20 capsule 0 01/24/2023 02/03/2023 Active Start: 01-01-2023 End: 01-11-2023 doxycycline (Vibramycin) 100 MG capsule Take 1 capsule (100 mg) by mouth 2 times daily for 10 days. Take with at least 8 ounces (large glass) of water, do not lie down for 30 minutes after 20 capsule 0 01/01/2023 01/11/2023 Active Start: 08-14-2022 End: 08-21-2022 take 1 tablet by mouth twice daily doxycycline (Vibra-Tabs) 100 MG tablet Indications: COPD exacerbation (HCC) Take 1 tablet (100 mg) by mouth 2 times daily for 7 days. Take with a full glass of water and do not lie down for at least 30 minutes after. 14 tablet 0 08/14/2022 08/21/2022 Active Start: 04-23-2022 End: 05-29-2022 take 1 capsule by mouth twice daily Doxycycline Monohydrate 100 MG capsule Discontinued 100 mg PO TWICE A DAY 14 0 April 23, 2022 1:00am May 29, 2022 9:26am 2 ml fentaNYL 0.05 mg/ml injection (4 sources) Opioid Agonist Start: 01-01-2025 End: 01-01-2025 50 mcg, IntraVENous, Every 5 min PRN, severe pain (7-10), Starting on [facility] 01/01/25 at 1700, For 3 doses, Recovery (only), Phase I and Phase II- Initial therapy for severe pain (7-10). Restricted to a 90 minute time frame starting when the patient can verbally state their pain score. If after 2 doses the pain score does not decrease by more than one point, then call the provider. If oral meds are utilized, do not return to initial therapy medications. Start: 01-01-2025 End: 01-01-2025 25 mcg, IntraVENous, Every 5 min PRN, moderate pain (4-6), Starting on [facility] 01/01/25 at 1700, For 3 doses, Recovery (only), Phase I and Phase II- Initial therapy for moderate pain (4-6). Restricted to a 90 minute time frame starting when the patient can verbally state their pain score. If after 2 doses the pain score does not decrease by more than one point, then call the provider. If oral meds are utilized, do not return to initial therapy medications. ferrous sulfate 325 mg oral tablet (14 sources) Start: 10-30-2023 End: 01-15-2025 take 1 tablet by mouth once daily Ferrous Sulfate (Feosol) 325 mg (65 mg iron) tablet Discontinued 325 mg PO DAILY October 30, 2023 12:00am January 15, 2025 10:29am End: 04-17-2023 take 1 tablet by mouth once daily at breakfast ferrous sulfate 325 (65 Fe) MG tablet Take 325 mg by mouth daily (with breakfast). 0 04/17/2023 Discontinued (Therapy completed) fluconazole 100 mg oral tablet (20 sources) Azole Antifungal Start: 10-27-2024 End: 01-01-2025 take 1 tablet by mouth once daily fluconazole (Diflucan) 100 MG tablet Indications: Thrush of mouth and esophagus (HCC) TAKE 1 TABLET BY MOUTH DAILY FOR 7 DAYS 7 tablet 10/27/2024 01/01/2025 Discontinued (Stop taking at discharge) Start: 08-07-2024 End: 08-20-2024 take 1 tablet by mouth once daily fluconazole (Diflucan) 100 MG tablet Take 1 tablet (100 mg) by mouth daily for 7 doses. 7 tablet 08/07/2024 08/20/2024 Discontinued (Therapy completed) Start: 03-24-2024 End: 05-19-2024 take 2 tablets by mouth once daily, then take 1 tablet by mouth once daily fluconazole (Diflucan) 100 MG tablet Indications: Oral thrush Take 200 mg on the first day, then 100 mg daily for the next 6 days. 8 tablet 03/24/2024 05/19/2024 Discontinued (Cost of medication) Start: 09-19-2023 End: 05-19-2024 take 1 tablet by mouth once daily fluconazole (Diflucan) 150 MG tablet Indications: COPD exacerbation (HCC) Take 1 tablet (150 mg) by mouth daily. 7 tablet 1 10/24/2023 05/19/2024 Discontinued (Cost of medication) Start: 03-23-2023 End: 04-17-2023 take 1 tablet by mouth once daily fluconazole (Diflucan) 150 MG tablet Take 1 tablet (150 mg) by mouth daily. 7 tablet 0 03/23/2023 04/17/2023 Discontinued (Therapy completed) 60 actuat fluticasone propionate 0.25 mg/actuat / salmeterol 0.05 mg/actuat dry powder inhaler (18 sources) Corticosteroid, beta2-Adrenergic Agonist Start: 10-17-2024 End: 12-03-2024 take 1 puff(s) by inhalation twice daily Fluticasone-Salmeterol 250-50 MCG/ACT aerosol powder Indications: Very severe chronic obstructive pulmonary disease (HCC) Inhale 1 puff 2 times daily. 1 each 5 10/17/2024 12/03/2024 Discontinued (Ineffective) Fluticasone-Ume clidin-Vilanter (20 sources) Anticholinergic, Corticosteroid, beta2-Adrenergic Agonist Start: 10-30-2023 End: 01-11-2024 Eiscbpgjjkv-Hldczhmex-Usx anter (Trelegy Ellipta) 100-62.5-25 mcg blister with device Discontinued 1 NMA INHALATION daily October 30, 2023 12:00am January 11, 2024 10:15am Start: 07-27-2023 End: 01-30-2024 Cznmmijbefd-Qodmgpvqc-Pgiyhk (Trelegy Ellipta) 100-62.5-25 MCG/ACT aerosol powder Indications: Centrilobular emphysema (HCC) Inhale 1 Inhalation daily. 60 each 3 07/27/2023 01/30/2024 Discontinued (Therapy completed) Start: 03-23-2023 End: 07-04-2023 Vqrrssfjfro-Rfqjldhex-Burckz (Trelegy Ellipta) 100-62.5-25 MCG/ACT aerosol powder Indications: Centrilobular emphysema (HCC) Inhale 1 Inhalation daily. 60 each 2 03/23/2023 07/04/2023 Discontinued (Cost of medication) Kervpvlrndm-Fnbzoahrl-Lylfso (Trelegy Ellipta) 200-62.5-25 MCG/ACT aerosol powder (20 sources) Start: 09-12-2024 End: 10-17-2024 take 1 puff(s) by mouth once daily Iqtzldvpfre-Ludkdpyim-Ptmcca (Trelegy Ellipta) 200-62.5-25 MCG/ACT aerosol powder Indications: Centrilobular emphysema (HCC) , COPD with acute exacerbation (HCC) Inhale 1 puff daily. Rinse mouth with water after use to reduce aftertaste and incidence of candidiasis. Do not swallow. 60 each 09/12/2024 10/17/2024 Discontinued (Cost of medication) Start: 09-12-2024 take 1 puff(s) by mo [facility] once daily Ihxamskgquy-Ipdkucdbl-Bgunjv (Trelegy Ellipta) 200-62.5-25 MCG/ACT aerosol powder Indications: Centrilobular emphysema (HCC) , COPD with acute exacerbation (HCC) Inhale 1 puff daily. Rinse mouth with water after use to reduce aftertaste and incidence of candidiasis. Do not swallow. 60 each 09/12/2024 Active Start: 05-28-2024 End: 07-30-2024 take 1 puff(s) by mouth once daily Cwsvikenuya-Anfxivyet-Kcbixf (Trelegy Ellipta) 200-62.5-25 MCG/ACT aerosol powder Indications: COPD with acute exacerbation (HCC) , Centrilobular emphysema (HCC) Inhale 1 puff daily. Rinse mouth with water after use to reduce aftertaste and incidence of candidiasis. Do not swallow. 2 each 3 05/28/2024 07/30/2024 Discontinued (Duplicate order) Start: 05-28-2024 End: 07-27-2024 take 1 puff(s) by mouth once daily Vexazxtfamr-Vykkmwfke-Xejcmz (Trelegy Ellipta) 200-62.5-25 MCG/ACT aerosol powder Indications: COPD with acute exacerbation (HCC) , Centrilobular emphysema (HCC) Inhale 1 puff daily. Rinse mouth with water after use to reduce aftertaste and incidence of candidiasis. Do not swallow. 2 each 3 05/28/2024 07/27/2024 Active Start: 01-30-2024 End: 05-28-2024 take 1 puff(s) by mouth once daily Jgcnfrrgqac-Zjhxcqctv-Lanqew (Trelegy Ellipta) 200-62.5-25 MCG/ACT aerosol powder Inhale 1 puff daily. Rinse mouth with water after use to reduce aftertaste and incidence of candidiasis. Do not swallow. 1 each 01/30/2024 05/28/2024 Discontinued (Reorder) Start: 01-30-2024 take 1 puff(s) by mo uth once daily Tvmpnmwhxdi-Pgxjhadai-Uivetk (Trelegy Ellipta) 200-62.5-25 MCG/ACT aerosol powder Inhale 1 puff daily. Rinse mouth with water after use to reduce aftertaste and incidence of candidiasis. Do not swallow. 1 each 01/30/2024 Active Start: 01-30-2024 take 1 puff(s) by inhalation once daily Jthwfsqrehr-Gxbnbjnlm-Dlussq (Trelegy Ellipta) 200-62.5-25 MCG/ACT aerosol powder Indications: Centrilobular emphysema (HCC) Inhale 1 puff daily. 1 each 5 01/30/2024 Active Start: 01-09-2024 End: 01-30-2024 take 1 puff(s) by inhalation once daily Emyvmxwbjtr-Rqmyvykza-Wqwwdr (Trelegy Ellipta) 200-62.5-25 MCG/ACT aerosol powder Inhale 1 puff daily. LOT# - UA9S EXP: 07/2025 1 each 01/09/2024 01/30/2024 Discontinued (Reorder) Start: 01-09-2024 take 1 puff(s) by inhalation once daily Zimpganvpxn-Jaacmtcfx-Oztxqc (Trelegy Ellipta) 200-62.5-25 MCG/ACT aerosol powder Inhale 1 puff daily. LOT# - UA9S EXP: 07/2025 1 each 01/09/2024 Active Tyltcbikzwg-Hzirbbkwe-Jhyevf er (4 sources) Start: 08-18-2024 End: 11-11-2024 Quayfqgcxkh-Jongzkuvi-Czlhvc er (Trelegy Ellipta) 200-62.5-25 mcg blister with device Discontinued 1 NMA INHALATION DAILY August 18, 2024 12:00am November 11, 2024 1:19pm formoterol fumarate 0.01 mg/ ml inhalation solution (20 sources) beta2- Adrene rgic Agonis t Start: 10-30-2022 End: 08-26-2024 take 1 mL by inhala tion twice daily Formoterol Fumarate (Perforomist) 20 mcg/2 mL solution for nebulization Discontinued 2 mL INHALATION TWICE A DAY October 30, 2022 12:00am August 26, 2024 1:00pm Start: 09-06-2022 End: 10-24-2023 formoterol (Perforomist) 20 MCG/2ML nebulizer solution Indications: Centrilobular emphysema (HCC) Take 2 mL (20 mcg) by nebulization in the morning and 2 mL (20 mcg) in the evening. 60 mL 2 12/06/2022 Active Start: 10-12-2014 PERFOROMIST 20 MCG/2ML nebulizer solution 20 mcg every 12 hours 0 10/12/2014 Active Start: 07-22-2014 End: 10-30-2022 formoterol (Perforomist) 20 MCG/2ML nebulizer solution 20 mcg. 0 10/12/2014 09/06/2022 Discontinued (Reorder) Formoterol Fumarate (Perforomist) 20 mcg/2 mL solution for nebulization (7 sources) Start: 10-30-2022 End: 08-26-2024 take 1 mL by inhalation twice daily Formoterol Fumarate (Perforomist) 20 mcg/2 mL solution for nebulization Discontinued 2 mL INHALATION TWICE A DAY October 30, 2022 12:00am August 26, 2024 1:00pm Start: 10-30-2022 take 1 mL by inhalat ion twice daily Formoterol Fumarate (Perforomist) 20 mcg/2 mL solution for nebulization Active 2 ML INHALATION TWICE A DAY October 29, 2022 11:00pm Start: 10-30-2022 take 1 mL by inhalat ion twice daily Formoterol Fumarate (Perforomist) 20 mcg/2 mL solution for nebulization Active 2 ML INHALATION TWICE A DAY October 30, 2022 12:00am Iopamidol (1 source) Radiographic Contrast Agent Start: 02-14-2019 End: 02-14-2019 iopamidol (ISOVUE-370) 76 % injection 75 mL iopamidol (ISOVUE-370) 76 % injection 75 mL (2 sources) Start: 12-21-2020 End: 12-21-2020 iopamidol (ISOVUE-370) 76 % injection 75 mL Start: 01-07-2020 End: 01-07-2020 iopamidol (ISOVUE-370) 76 % injection 75 mL labetalol (Normodyne,Trandate) injection 5 mg (2 sources) Start: 01-01-2025 End: 01-01-2025 labetalol (Normodyne,Trandate) injection 5 mg loratadine 1 mg/ml oral solution (11 sources) Start: 08-12-2024 End: 10-20-2024 take 10 mL by mouth once daily loratadine (Claritin Allergy Childrens) 5 MG/5ML solution solution Indications: Chronic frontal sinusitis Take 10 mL (10 mg) by mouth daily. 300 mL 1 08/12/2024 10/20/2024 Discontinued (Therapy completed) Magnesium (20 sources) Start: 05-29-2022 End: 10-30-2022 take 0.5 tablet by mouth once daily Magnesium 200 mg tablet Discontinued 0 PO DAILY May 29, 2022 1:00am October 30, 2022 2:05pm 100mg , take 1/2 tab daily Start: 05-29-2022 End: 10-30-2022 take 0.5 tablet by mouth once daily Magnesium Discontinued 0 PO DAILY May 29, 2022 12:00am October 30, 2022 1:05pm 100mg , take 1/2 tab daily Start: 05-29-2022 End: 10-30-2022 take 0.5 tablet by mouth once daily Magnesium Discontinued 0 PO DAILY May 29, 2022 1:00am October 30, 2022 2:05pm 100mg , take 1/2 tab daily Start: 05-29-2022 take 0.5 tablet by m outh once daily Magnesium Active 0 PO DAILY May 29, 2022 1:00am 100mg , take 1/2 tab daily Start: 05-29-2022 take 0.5 tablet by m outh once daily Magnesium Active 0 PO DAILY May 29, 2022 12:00am 100mg , take 1/2 tab daily End: 04-17-2023 Magnesium 100 MG capsule Anni e by mouth. 0 04/17/2023 Discontinued (Therapy completed) Magnesium 100 MG capsule Take by mouth. 0 Active Magnesium 100 MG CAPS Take by mouth 0 Active Multivitamin tablet (4 sources) Start: 08-26-2024 End: 11-11-2024 Multivitamin tablet Discontinued 1 {tbl} PO daily August 26, 2024 12:00am November 11, 2024 1:19pm 2 ml ondansetron 2 mg/ml injection (4 sources) Serotonin-3 Receptor Antagonist Start: 01-01-2025 End: 01-01-2025 4 mg, IntraVENous, Once PRN, nausea, Starting on Lana 01/01/25 at 1700, For 1 dose, Recovery (only), Initial antiemetic therapy. Start: 09-06-2020 take 1 tablet by octavio th three times daily as needed for nausea ondansetron (ZOFRAN) 4 MG tablet Indications: Nausea Take 1 tablet by mouth 3 times daily as needed for Nausea or Vomiting 15 tablet 0 09/06/2020 Active oxyCODONE (2 sources) Opioid Agonist Start: 01-01-2025 End: 01-01-2025 take 1 tablet by mouth every four hours as needed for pain oxyCODONE (Roxicodone) immediate release tablet 5 mg microencapsulated potassium chloride 20 meq extended release oral tablet (1 source) Start: 01-07-2020 End: 01-07-2020 potassium chloride (KLOR-CON M) extended release tablet 40 mEq potassium gluconate 2.5 meq oral tablet (20 sources) Start: 05-29-2022 End: 10-30-2023 take 1 tablet by mouth once daily Potassium Gluconate 2.5 mEq tablet Discontinued 2.5 meq PO DAILY May 29, 2022 1:00am October 30, 2023 1:08pm Start: 04-27-2020 Potassium Gluc nena 2.5 MEQ tablet Take by mouth. 04/27/2020 Active Start: 04-27-2020 potassium gluc nena 550 mg tablet Take by mouth 0 04/27/2020 Active roflumilast 0.5 mg oral tablet (20 sources) Phosphodiesterase 4 Inhibitor Start: 05-18-2023 End: 08-21-2023 take 1 tablet by mouth once daily Roflumilast (Daliresp) 500 MCG tablet Indications: Chronic Obstructive Pulmonary Disease Take 1 tablet (500 mcg) by mouth daily. 0 07/18/2023 08/21/2023 Discontinued (Side effects) Start: 05-18-2023 take 1 tablet by octavio th once daily Roflumilast (Daliresp) 500 MCG tablet Indications: Chronic Obstructive Pulmonary Disease Take 1 tablet (500 mcg) by mouth daily. Do not start before May 18, 2023. 90 tablet 2 05/18/2023 Active Start: 05-18-2023 take 1 tablet by octavio th once daily Roflumilast (Daliresp) 500 MCG tablet Indications: Chronic Obstructive Pulmonary Disease Take 1 tablet (500 mcg) by mouth daily. Do not start before May 18, 2023. 90 tablet 2 05/18/2023 Active Start: 05-18-2023 take 1 tablet by octavio th once daily Roflumilast (Daliresp) 500 MCG tablet Indications: Chronic Obstructive Pulmonary Disease Take 1 tablet (500 mcg) by mouth daily. Do not start before May 18, 2023. 90 tablet 2 05/18/2023 Active Start: 05-18-2023 take 1 tablet by octavio th once daily Roflumilast (Daliresp) 500 MCG tablet Indications: Chronic Obstructive Pulmonary Disease Take 1 tablet (500 mcg) by mouth daily. Do not start before May 18, 2023. 90 tablet 2 05/18/2023 Active Start: 05-18-2023 take 1 tablet by octavio once daily Roflumilast (Daliresp) 500 MCG tablet Indications: Chronic Obstructive Pulmonary Disease Take 1 tablet (500 mcg) by mouth daily. Do not start before May 18, 2023. 90 tablet 2 05/18/2023 Active Start: 04-17-2023 End: 07-18-2023 take 1 tablet by mouth once daily Roflumilast 250 MCG tablet Indications: Very severe chronic obstructive pulmonary disease (HCC) TAKE 1 TABLET BY MOUTH EVERY DAY 30 tablet 0 05/04/2023 07/18/2023 Discontinued (Duplicate order) Start: 09-13-2020 take 1 tablet by octavio th once daily Roflumilast (DALIRESP) 250 MCG tablet Indications: Centrilobular emphysema (HCC) , Mixed simple and mucopurulent chronic bronchitis (HCC) Take 1 tablet by mouth daily 30 tablet 3 09/13/2020 Active 5 ml sodium chloride 9 mg/ml injection (20 sources) Start: 01-01-2025 End: 01-01-2025 10 mL, IntraVENous, Every 12 hours scheduled (2 times per day), First dose on Sun01/01/25 at 2100, Recovery (only) Start: 01-01-2025 End: 01-01-2025 10 mL, IntraVENous, Every 12 hours scheduled (2 times per day), First dose on Sun01/01/25 at 2100, Recovery (only) Start: 01-01-2025 End: 01-01-2025 take 10 mL intravenously once as needed 10 mL, IntraVENous, PRN, line care, Starting on Sun01/01/25 at 1700, Recovery (only), After every IV line use Start: 01-01-2025 End: 01-01-2025 500 mL, IntraVENous, at 1,00 0 mL/hr, Administer over 0.5 Hours, PRN, Anti-nausea, Starting on Sun01/01/25 at 1700, Recovery (only), Indications: Anti-nausea Start: 03-24-2024 sodium chlorid e 7 % nebulizer solution nebulizer solution Indications: Centrilobular emphysema (HCC) Take 4 mL by nebulization 2 times daily as needed (chest congestion). 360 mL 2 03/24/2024 Active spironolactone 25 mg oral tablet (20 sources) Aldosterone Antagonist Start: 04-10-2022 End: 06-30-2024 take 1 tablet by mouth once daily Spironolactone 25 mg tablet Discontinued 25 mg PO DAILY May 29, 2022 1:00am October 30, 2022 2:06pm Start: 12-19-2021 take 1 tablet by octavio th once daily spironolactone (ALDACTONE) 25 MG tablet Indications: Primary hypertension Take 1 tablet by mouth daily 90 tablet 0 12/19/2021 Active Start: 07-11-2021 take 1 tablet by octavio th once daily spironolactone (ALDACTONE) 25 MG tablet Indications: Primary hypertension Take 1 tablet by mouth daily 90 tablet 3 07/11/2021 Active tezepelumab-ekko (Tezspire) 210 MG/1.91ML solution auto-injector autoinjector pen (20 sources) Start: 06-12-2024 End: 08-12-2024 tezepelumab-ekko (Tezspire) 210 MG/1.91ML solution auto-injector autoinjector pen Indications: Eosinophilic asthma Inject 1 Pen (210 mg) under the skin every 28 (twenty-eight) days. 1 Pen 11 06/12/2024 08/12/2024 Discontinued Start: 06-12-2024 tezepelumab-ek ko (Tezspire) 210 MG/1.91ML solution auto- injector autoinjector pen Indications: Eosinophilic asthma Inject 1 Pen (210 mg) under the skin every 28 (twenty-eight) days. 1 Pen 11 06/12/2024 Active 10 actuat tiotropium 0.0025 mg/actuat inhalation spray (20 sources) Anticholinergic Start: 10-17-2024 End: 12-03-2024 take 2 puff(s) by inhalation once daily tiotropium (Spiriva Respimat) 2.5 MCG/ACT inhaler Indications: Very severe chronic obstructive pulmonary disease (HCC) Inhale 2 puffs daily. 1 each 5 10/17/2024 12/03/2024 Discontinued (Cost of medication) Start: 05-29-2022 take 1 capsule by in halation once daily Tiotropium [place] (Spiriva With Handihaler) 18 mcg capsule, w/inhalation device Active 1 CAP INHALATION DAILY May 29, 2022 12:00am puncture 1 cap using device; one dose = 2 inhalations Start: 07-22-2014 End: 05-29-2022 take 1 puff(s) by inhalation once daily Tiotropium [place] (Spiriva With Handihaler) 1 PUFF inhaler Discontinued 2 NMA INHALATION DAILY July 22, 2014 12:00am May 29, 2022 9:44am breathing Start: 07-22-2014 End: 05-29-2022 take 1 puff(s) by inhalation once daily Tiotropium [place] (Spiriva With Handihaler) 1 PUFF inhaler Discontinued 2 PUFF INHALATION DAILY July 21, 2014 11:00pm May 29, 2022 8:44am Start: 12-05-2007 End: 10-30-2023 take 1 capsule by inhalation once daily Tiotropium [place] (Spiriva With Handihaler) 18 mcg capsule, w/inhalation device Discontinued 1 NMA INHALATION DAILY May 29, 2022 1:00am October 30, 2023 1:07pm puncture 1 cap using device; one dose = 2 inhalations Vit X-Yblyxnx-Palk-Rutin-Hb1 96 (Bioflex) 288-30-89-40 mg Tablet (14 sources) Start: 10-28-2021 End: 05-29-2022 Vit D-Dlyzuzp-Visb-Rutin-Hb1 96 (Bioflex) 435-13-75-40 mg Tablet Discontinued 1 {tbl} PO DAILY October 28, 2021 12:00am May 29, 2022 9:44am Start: 10-28-2021 End: 05-29-2022 take 1 tablet by mouth once daily Vit I-Jwtbeiu-Njlj-Rutin-Hb196 (Bioflex) 092-45-38-40 mg Tablet Discontinued 1 TABLET PO DAILY October 28, 2021 12:00am May 29, 2022 9:44am Start: 10-28-2021 End: 05-29-2022 take 1 tablet by mouth once daily Vit M-Hketmeq-Nbyg-Rutin-Hb196 (Bioflex) 796-72-98-40 mg Tablet Discontinued 1 TABLET PO DAILY October 27, 2021 11:00pm May 29, 2022 8:44am Start: 10-28-2021 take 1 tablet by octavio th once daily Vit C-Orqcdrq-Kten-Rutin-Hb196 (Bioflex) 966-70-35-40 mg Tablet Active 1 TABLET PO DAILY October 27, 2021 11:00pm Start: 10-28-2021 take 1 tablet by octavio th once daily Vit M-Jolcmew-Ackm-Rutin-Hb196 (Bioflex) 135-08-81-40 mg Tablet Active 1 TABLET PO DAILY October 28, 2021 12:00am zafirlukast 20 mg oral tablet (20 sources) Leukotriene Receptor Antagonist Start: 10-30-2014 End: 05-29-2022 take 1 tablet by mouth twice daily Zafirlukast 20 tablet Discontinued 20 mg PO TWICE A DAY May 23, 2019 1:00am May 29, 2022 9:44am asthma 100 ml zoledronic acid 0.05 mg/ml injection (14 sources) Bisphosphonate Start: 10-30-2022 End: 11-25-2024 Zoledronic Rfzk-Zqxnlwxz-Zvvi r 5 mg/100 mL piggyback Discontinued 5 NMA .Route ONCE 100 0 October 30, 2023 1:18pm November 25, 2024 9:16am onceinfuse over 20 minutes Problems Active Problems Problem Classification Problem Date Documented Da te Episodic/Chronic Abdominal hernia (20 sources) Incisional hernia; Translations: [Incisional hernia without obstruction or gangrene] Onset: 9 Resolved: 2 02-26-2019 Episodic Abdominal pain (9 sources) Abdominal pain; Translations: [Unspecified abdominal pain] 08-16-2022 Episodic Asthma (20 sources) Moderate asthma; Translations: [Uncomplicated severe persistent asthma] Onset: 5 08-20-2024 Chronic Cardiac dysrhythmias (4 sources) Tachycardia; Translations: [Tachycardia, unspecified] 03-17-2024 Episodic Chronic obstructive pulmonary disease and bronchiectasis (20 sources) Chronic obstructive lung disease; Translations: [Acute exacerbation of chronic obstructive airways disease] Onset: 1 Resolved: 4 08-11-2015 Chronic Chronic obstructive pulmonary disease and bronchiectasis (1 source) Bronchitis; Translations: [Bronchitis] Episodic Chronic obstructive pulmonary disease and bronchiectasis (20 sources) Chronic obstructive pulmonary disease and bronchiectasis Onset: 5 07-09-2024 Coma; stupor; and brain damage (1 source) Daytime somnolence 01-09-2025 Episodic Conditions associated with dizziness or vertigo (5 sources) Dizziness; Translations: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 [facility] FLUBV RNA NETO+non-probe Ql (Lower resp) Not detected Not Detected [facility] Haemophilus influenzae Detected Abnormal Not Detected [facility] Human Metapneumovirus Not detected Not Detected [facility] Rhinovirus/Enterovirus Detected Abnormal Not Detected [facility] Interpretation and review of laboratory results Abnormal [facility] Klebsiella (Enterobacter) aerogenes Not detected Not Detected [facility] Klebsiella oxytoca Not detected Not Detected [facility] Klebsiella pneumoniae Not detected Not Detected [facility] L. pneumophila DNA NETO+non-probe Ql (Lower resp) Not detected Not Detected [facility] Moraxella catarrhalis Not detected Not Detected [facility] Mycoplasma pneumoniae Not detected Not Detected [facility] Parainfluenza virus Not detected Not Detected [facility] Proteus spp Not detected Not Detected [facility] Pseudomonas aeruginosa Not detected Not Detected [facility] RSV RNA NETO+probe Ql (Resp) Not detected Not Detected [facility] S. agalactiae DNA NETO+non-probe Ql (Sput) Not detected Not Detected [facility] SARS-CoV-2 (COVID-19) RNA NETO+non-probe Ql (Nph) Not detected Not Detected [facility] SARS-CoV-2 (COVID-19) RNA NETO+probe Ql (Unsp spec) Methodology: Multiplex PCR This panel does not test for SARS-CoV-2 (Covid-19). The following antimicrobial resistance gene is reported if the appropriate organism is detected: mecA. The following antimicrobial resistance genes are reported if detected and the appropriate organisms are detected: CTX-M, IMP, KPC, NDM, OXA-48-like, and VIM. [facility] Serratia marcescens Not detected Not Detected [facility] Staphylococcus aureus Not detected Not Detected [facility] Streptococcus pneumoniae Not detected Not Detected [facility] Streptococcus pyogenes Not detected Not Detected [facility] 2912-31-2024 29 Addended by: LUZ ELENA HOPPER on: 12/31/2024 11:54 AM Modules accepted: Orders [facility] 29 Addended by: MICHELLE DALAL on: 12/31/2024 11:04 AM Modules accepted: Orders [facility] 36on 12-31-2024 36 Patient is active wi Sallis and NAN for EBUS/ENB [id number] [facility] 36 Instructions BRONCH/BAL Bronchoscopy with Bronchoalveolar Lavage Procedure Date: January 01, 2025 Time: 3:30 PM Arrival Time: 2:30 PM Physician: Dr. Ross Location: [facility], Endoscopy Department, [facility] Main Entrance Roselia Beltran Clare (H Clare); [address] [facility] [address] Please arrive at the hospital registration desk 1 hour prior to scheduled start of procedure. Make sure you have a known responsible adult to transport you home from the hospital as you will not be permitted to drive. Your procedure will be cancelled if you do not have someone to take you home. You can only use a taxi/bus/Uber/medical transportation clerk if you have a known responsible adult to go with you. You may use [facility]. Each patient will receive one validation ticket for [facility]. Do not drink alcohol before or after your procedure. No smoking of any kind and no chewing tobacco six hours prior to your procedure. If you experience any fever/sick symptoms prior to procedure, please call the nurse. Bring your insurance card and photo ID with you. 8 hours prior to scheduled procedure (7:30 AM) is the cut off for solid foods or thick liquids. You may have water, black coffee, clear tea, apple juice, cranberry juice, clear carbonated beverages until 2 hours (1:30 PM) prior to your scheduled start. Any blood thinning medications like Coumadin, Warfarin, Jantoven, Effient, Eliquis, Xarelto, Pradaxa, Pletal, Plavix, Bilinta, Heparin, Lovenox, Fragmin and Aspirin may need to be held prior to the procedure. Contact the nurse if you take any of these medications. Please refrain from taking any non-steroidal anti-inflammatory medications (i.e. Advil, Aleve, Ibuprofen, Motrin, Naprosyn, Naproxen, Voltaren, Diclofenac, Celebrex, Mobic, Meloxicam) for 5 days prior to procedure. Tylenol (acetaminophen) is safe to use prior to procedure. The following medications must be stopped 7 days prior to your procedure: Albiglutide (Tanzeum), Dulaglutide (Trulicity), Exenatide ER (Bydureon), Semaglutide (Ozempic), Wegovy, Rybelsus), Tirzepatide (Mounjaro). These medications must be stopped 1 day prior to your procedure: Exenatide (Byetta), Liraglutide (Saxenda, Victoza), Lixisenatide (Adlyxin), Orlistat (Yuniel, Xenical), Setmelanotide (Imcivree). If you are diabetic, please contact your physician that manages your medications and/or insulin for any adjustments that may be needed while you are on clear liquids then fasting for the majority of the day until after your procedure. Other medications can be taken as usual up to 2 hours (1:30 PM) prior as long as you are able to tolerate them on an empty stomach. Nothing by mouth after 1:30 PM. From registration you will go to the endoscopy unit, the staff there will get you checked in and start an intravenous catheter (IV). Our Anesthesia Team will ask you some health history questions prior and will be there to monitor you for the duration of your procedure. Dr. Ross will be available to speak with you prior to your procedure in case you have any questions. The procedure itself usually lasts about 1 hour and you will be asleep the entire time. After the procedure you will be taken to the recovery area for monitoring. The procedure is planned as outpatient, and you will be discharged the same day. Estimated time at the hospital ranges from 3-4 hours the day of the procedure. The physician will use a small, flexible scope to go through your mouth and into the lung to sample the area(s) that were discussed with you. The scope has a channel that tools are inserted in to biopsy, collect specimens and/or wash the particular area. The physician will discuss any initial findings post procedure at the hospital with you. Final results typically come back within a week and a follow up will be scheduled based on the physician's recommendation. You are scheduled for a follow up telephone appointment January 09, 2025 at 11:[address] Ross to discuss results. Things to look for post procedure: Fever greater than 101F Coughing up/spitting up bright red blood greater than a teaspoon Increased Shortness of breath/distress and/ or sudden onset of chest pain (call 911 and head to the nearest emergency department) You will be sent home with discharge instructions. You can eat and drink as tolerated post procedure. You may experience some fatigue, irritation of the throat, increased coughing, and/or pink-blood tinged mucus after the procedure. This is normal and be expected to last about 24-48 hours. Over the counter medications such as lozenges, cough drops, chloraseptic sprays can help these symptoms. If you have any questions, please call: [phone] Elena RN Clinical Coordinator [facility] [address] [place] [address], [address] [place] [address] Procedure placed on physician's outlook calendar? yes (more content not included)... [facility] 36 Received request to schedule patient for Bronch/BAL this week. This RN attempted to reach patient regarding scheduling. No answer. Left voice mail to return call at direct line. [facility] 37on 12-31-2024 37 YOUR APPOINTMENT TOEnder MACEDO WAS WITH THE [facility] LUNG NODULE CLINIC, COPD CLINIC, PULMONARY AND SLEEP MEDICINE OFFICE. PLEASE CALL OUR OFFICE AT [phone] for our [place] office location or [phone] for our [place] location, IF YOU HAVE NOT RECEIVED YOUR [...] to make improvements. COVID-19 VACCINATION INFORMATION: PH. [phone] HE[facility]/CORONAVIRUS/ VACCINE [facility] Central Scheduling [phone] [facility] Sleep Scheduling [phone] [facility] [id number] (BKR QUE ST)on 12-31-2024 QUEST ALPHA 1 ANTITRYPSIN 142 mg/dL Normal 83-199 [facility] Comment on above: Result Comment: Test Performed by Rima Hawkins, [facility], [address] [place] [address] Michael Alexander M.D., Ph.D., Director of Laboratories , CLIA [id number] Performed By: #### L [id number], [id number] #### Program Instructor: BERNA HERNANDEZ ([id number]) [facility] ([facility]) [address] [place] [address] Office Visiton 12-31-2024 Follow-up visit [id number] Lacy Briggs 1950 F Date Provider Department Center 12/31/2024 [facility] None Family History Problem Relation Age of Onset High Blood Pressure Mother Comments: alive age 99 Rheum arthritis Father Heart disease Father Comments: age 59 Other Sister Comments: adrenal issues Skin cancer Sister COPD Brother Comments: age 65, smoker Lung cancer Brother 70 Prostate cancer Brother 60 No Known Problems Brother No Known Problems Brother Breast cancer Paternal Cousin 35 Family Status - Relation Status Age at Mother Alive Father 58 Sister Alive Sister Alive Brother Brother Alive Brother Alive Brother Alive Paternal Cousin Alive Level of Service:95996 NE OFFICE/OUTPATIENT ESTABLISHED MOD MDM 30 MIN Reason for Visit and Comments: Follow-up [421980] COPD [313] - [id number]-[id number] ([facility]) [facility] Progress Noteon 12-31-2024 Progress Note [facility] Pul[facility] Medicine [address] [place] [address] Date of Service: 12/31/2024 Visit type: An Established patient Chief Complaint/Reason for Referral: Follow-up and COPD ([id number] ([facility])) SUBJECTIVE History of Present Illness: Dayana Briggs ( 1950) is a 74 y.o. 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 Ongoing issues. Thinks she is allergic to IVIG now Recurrent Abx, steroids Discussed sputum results Apparently was recommended Ohtuvarye but copay was 500 She is exacerbated again. MMRC Dyspnea Scale: Grade Description of Breathlessness [...] Diagnosis Date Asthma 2006 Breast cancer screening 02/2024 COPD (chronic obstructive pulmonary disease) (HCC) 2014 Home O2 since 2015 Ex-smoker 2008 GERD (gastroesophageal reflux disease) H/O colonoscopy 2018 due 2028 History of idiopathic thrombocytopenic purpura 2006 resolved History of shingles 2020 left CN V Hypertension 2004 Hypothyroidism IBS (irritable bowel syndrome) 2001 per [facility] Immunoglobulin deficiency (HCC) 2008 monthly IVIG infusion per Cand[facility] Nodule of upper lobe of right lung no change per LDCT- due 05/2025 Osteoporosis [address] Field Renal stones SURGICAL HISTORY: Past Surgical History: Procedure Laterality Date APPENDECTOMY 1965 BREAST BIOPSY Right 2010 benign BREAST CYST ASPIRATION Left 2008 benign CATARACT EXTRACTION W/ INTRAOCULAR LENS IMPLANT Bilateral CHOLECYSTECTOMY 2013 COLONOSCOPY 10/2018 Dr. Argueta- due 2028 COLONOSCOPY 2008 Turowski DENTAL SURGERY dentures HEMORRHOID SURGERY 1995 MENISCECTOMY Left 2016 Damico PARTIAL HYSTERECTOMY 1994 DUB- Ovaries intact SKIN BIOPSY from left arm, under right breast, and forehead. All negative for CA TONSILLECTOMY (HISTORICAL) ALLERGIES: Allergies Allergen Reactions Lisinopril Shortness of breath Cough and wheezing Other Other Envirmental allergies trees pollen rag weed, douglass Ampicillin Other reaction(s): Other, stomach issues Aspirin Hives Other reaction(s): U Other reaction(s): U Augmentin [Amoxicillin-Pot Clavulanate] Codeine Other reaction(s): GI Upset sleepy, dizzy Erythromycin unknown reaction Levaquin [Levofloxacin] Other Joint pain (ankles) Misc. Sulfonamide Containing Compounds Penicillins Other reaction(s): Other (See Comments) Upset [...] shortness of breath., Disp: 75 mL, Rfl: 3 albuterol 108 (90 Base) MCG/ACT inhaler, Inhale 2 puffs every 4 hours as needed for shortness of breath., Disp: 1 each, Rfl: 2 amLODIPine (Norvasc) 5 MG tablet, TAKE 1 TABLET BY MOUTH EVERY DAY, Disp: 90 tablet, Rfl: 1 atorvastatin (Lipitor) 10 MG tablet, Take 1 tablet (10 mg) by mouth daily., Disp: 90 tablet, Rfl: 3 budesonide (Pulmicort) 0.5 MG/2ML nebulizer solution, Take 2 mL (0.5 mg) by nebulization 2 times daily. Rinse mouth with water after use to reduce aftertaste and incidence of candidiasis. Do not swallow., Disp: 360 mL, Rfl: 5 cholecalciferol (Vitamin D-3) 25 MCG (1000 UT) capsule, Take 1 capsule by mouth in the morning and 1 capsule before bedtime., Disp: , Rfl: fluconazole (Diflucan) 100 MG tablet, TAKE 1 TABLET BY MOUTH DAILY FOR 7 DAYS, Disp: 7 tablet, Rfl: 0 ipratropium (Atrovent) 0.02 % nebulizer solution, INHALE THE CONTENTS OF 1 VIAL VIA NEBULIZER 2 TIMES DAILY, Disp: , Rfl: ipratropium-albuterol (Duo-Neb) 0.5-2.5 mg/3 mL nebulizer solution, Take 3 mL by nebulization 4 times daily as needed for wheezing., Disp: 30 mL, Rfl: 2 levothyroxine (Synthroid, Levoxyl) 100 MCG tablet, Take 1 tablet (100 mcg) by mouth janna (more content not included)... [facility] Urgent Care Visit Reporton 0 12-20-2024 Urgent Care Visit Report [facility] [address], [address] [place] [address] OFFICE VISIT Date of Service: 12/20/24 MR#: [id number] Acct: [id number] Name: DAYANA BRIGGS Rep #: [id number] 18 : 1950 Provider: MOISES Aggarwal Age/Sex: 74/F Location: [facility] Status: Signed Intake Vital Signs 11/11/24 13:16 12/20/24 11:52 Height 5 ft 1 in 5 ft 1 in Weight: 163 lb 2 oz 164 lb BMI 30.8 30.9 BP 136/82 H 132/84 H Blood Pressure Location Lt brachial Lt brachial Position Sitting Sitting Pulse 92 80 Pulse Source Monitor Monitor Temp 97.8 F Temp Source Oral Pulse Oximetry (%) 97 94 Oxygen Delivery Method room air room air Oxygen Flow Rate (L/min) 2 Intake Visit Reasons: CONCERN FOR PINK EYE Chief Complaint: Eye irritation Accompanied by: Self Allergies Environmental Allergies: Uncoded Allergy (Intermediate, Verified 12/20/24 12:45) Hives Sulfa (Sulfonamide Antibiotics) Allergy (Mild, Verified 12/20/24 12:45) Hives ampicillin Allergy (Verified 12/20/24 12:45) stomach issues aspirin (ASA) Allergy (Verified 12/20/24 12:45) Hives cephalexin monohydrate (From Keflex) Allergy (Verified 12/20/24 12:45) Hives lisinopril Allergy (Verified 12/20/24 12:45) Other codeine Adverse Reaction (Verified 12/20/24 12:45) Nausea/Vom/Diarrhea levofloxacin (From Levaquin) Adverse Reaction (Verified 12/20/24 12:45) Pain in joints Medications ???Medication ???Instructions ???Recorded ???Confirmed ???Type albuterol sulfate 90 mcg/actuation 2 puff inhalation Q4H PRN PRN So b 07/22/14 11/11/24 History aerosol inhaler (ProAir HFA) /Or Wheezing levothyroxine 100 mcg tablet 100 mcg PO DAILY thyroid 07/22/14 11/11/24 History omeprazole 20 mg capsule,delayed 20 mg PO DAILY stomach 07/22/14 History release albuterol sulfate 2.5 mg/3 mL 2.5 mg inhalation Q4H PRN 05/29/22 11/11/24 History (0.083 %) solution for nebulization shortness of breath or wheezing amlodipine 5 mg tablet 5 mg PO DAILY 05/29/22 11/11/24 Hi story cholecalciferol (vitamin D3) 25 25 mcg PO DAILY 05/29/22 11/11/24 History mcg (1,000 unit) capsule zafirlukast 20 mg tablet 20 mg PO BID 05/29/22 11/11/24 His tory atorvastatin 10 mg tablet 10 mg PO QDAY 10/30/23 11/11/24 Hi story calcium 333 mg-magnesium 133 mg-D3 1 tab PO DAILY 10/30/23 11/11/24 History 1.67 mcg-zinc 5 mg tablet ferrous sulfate 325 mg (65 mg 325 mg PO DAILY 10/30/23 11/11/24 History iron) tablet (Feosol) potassium citrate 99 mg capsule 99 mg PO DAILY 10/30/23 11/11/24 H istory spironolactone 25 mg tablet 25 mg PO QDAY 10/30/23 11/11/24 Hi story prednisone 20 mg tablet 40 mg (2 x 20 mg) PO DAILY 7 days 03/09/24 11/11/24 Rx #14 TABLETS zoledronic acid 5 mg/100 mL in 5 ea .Route ONCE #100 mL 11/25/24 11/25/24 Rx mannitol 5 %-water intravenous piggybck ciprofloxacin HCl 0.3 % eye drops 1 drp ophthalmic (eye) Q4H 5 days 12/20/24 12/20/24 Rx #10 mL Have you fallen in the past year?: No Nurse's Note: Right eye pink/crusty. Using left over eye medication but still oozing. [facility] Medical History Nodule of upper lobe of right lung Idiopathic thrombocytopenic purpura (ITP) Chronic hypoxic respiratory failure Emphysema of lung Asthma Thrombocytosis Anemia Leukocytosis Thrush RSV infection Acute and chronic respiratory failure with hypoxia Osteoporosis On home oxygen therapy COPD (chronic obstructive pulmonary disease) Former smoker GERD (gastroesophageal reflux disease) Hypothyroid Obesity (BMI 30.0-34.9) HTN (hypertension) Immune deficiency disorder Surgical History History of hemorrhoidectomy History of meniscectomy of left knee History of colonoscopy History of bilateral cataract extraction History of cholecystectomy History of appendectomy Hx of tonsillectomy Hx of hysterectomy Family History Mother Hypertension Father Rheumatoid arthritis Heart disease Sister Cancer Brother Cancer Social History household members: spouse Smoking Status: Former smoker how long ago did patient quit smoking: Quit 2009, prior 1-1.5 ppd since youth. alcohol intake: never substance use type: does not use caffeine: Yes HPI HPI Chief Complaint: Eye irritation Details: DAYANA BRIGGS, is a 74 F who presents to the office today for ? pink eye -sx started 5 days ago -sx slimy drainage- crusts but never crusted shut- right eye- feels going into left -itching and burning first couple of days then used an old medication she had around the house- bacitracin zinc and polymyxin (more content not included)... [facility] 36on 12-18-2024 36 Noted [facility] 36 S: Patient spoke samir PIMENTEL RN regarding Symptoms/Concerns: cold in eye or pink eye Provider: Dr Roman Practice Name: [facility] Insurance Name [employer] Medicare RTE Ran Yes A: Unsure if she has cold in eye or pink eye, watering and crusting. Does itch and burn. Gets blurry at night when it gets slimed up. Clear discharge. Always has colds and sinus congestion. Appears a little pink. Denies: fever R: No appointments in pcp office this week. Appointment offered at [place] office, declined. Advised Dr. Roman is out on medical leave at this time. Can also be evaluated at Urgent care. Patient verbalizes understanding. No further needs at this time. Patient instructed to call back with new or worsening symptoms. Reason for Disposition Eyelid is red and painful (or tender to touch) Protocols used: Eye - Pus or Lynwlafxy-CFRTD-DL [facility] Progress Noteon 12-09-2024 Progress Note EMR reviewed. The patient had a follow-up appt. with Pulmonology on 12/03/24: History of Present Illness: Dayana Briggs ( 1950) is a 74 y.o. 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 Last seen by pulmonary 09/2023. Patient known to [facility] providers (myself, Beny Smith APRN and Dr. Castellon) Patient has recurrent issue with poorly controlled asthma/COPD. She has been treated with prednisone on 11 separate occasions in the last 6 months, by multiple providers. She has also been treated with multiple rounds of antibiotics in recent months, again by multiple providers. Most recently, she was treated with 10 day course of augmentin by her florist's decorator. Unfortunately, patient has had issues with multiple recommendations made to her for optimized control of COPD/pulmonary issues. Symptoms also seem to be exacerbated primarily by getting IVIG infusions, which she gets monthly. She currently sees immunology in [facility], Dr. Davis. She has tried and failed multiple maintenance inhalers, most recently, this included Trelegy, and then Advair/Spiriva. She stopped taking the Trelegy because she didn't feel it helped her, and then also stopped the Advair due to perceived lack of benefit. She was prescribed Ohtuvayre nebs but they were too expensive and she didn't follow through with working on patient assistance to get this covered. She is prescribed zafirkulast by her florist's decorator, but stopped taking it due to perceived lack of benefit and cost. She was given sample of Dupixent in the florist's decorator office, and allegedly had reaction to it. She was later offered use of Tezspire, but she declined. She apparently sees palliative care in her home, but she wants them to stop coming because she doesn't see the benefit. Vitals: BP 131/84 Pulse 80 Temp 36.4 ?C (97.5 ?F) (Temporal) Ht 1.524 m (5') Wt 73.9 kg (163 lb) SpO2 93% BMI 31.83 kg/m? BSA 1.77 m? CM outreach on 12/09/24: PMH: COPD, HTN, IBS, OA, HYPOTHYROID, HYPERLIPIDEMIA Follow-up appts: 12/31/24-Pulmonology COPD MEDS: She stated she has tried all of the maintenance inhalers and none of them have work for her. She stated she also doesn't want to pay that much for an inhaler if she sees no benefit in using it. Using Albuterol inhaler every 4 hours Using nebulizer every 4 hours She is still using 2.5L O2 continuously at home Monitoring pulse ox every 2-3 days-96-97% Has wheezing daily-stated the last 3 months have been worse. Stated has long as she uses her nebulizer, Albuterol inhaler and takes Prednisone she can breathe. She has a non productive cough SOB all the time. Stated feels like she is sucking through a straw. HTN MEDS: Amlodipine 5mg daily Spironolactone 25mg daily Not monitoring BP's at home-checks occasionally Gets mild left ankle edema after her infusion. Occasional edema in her right ankle. 12/09/24 1246 Hypertension - Identifiable causes Chronic renal disease No Hypertension causing medication Yes Thyroid problem Yes Sleep apnea No Hypertension - End-organ damage Angina No CVA No Peripheral Vascular Disease No Kidney disease No Heart failure No Retinopathy No CAD/KS No LVH No Hypertension - Symptoms Anxiety No Blurred vision No Chest pain No Fatigue No Headaches No Malaise No Neck pain No Orthopnea Yes (using 2 pillows to sleep at night) Palpitations No Peripheral edema Yes (Left ankle) Shortness of breath Yes Sweats No She stated she had an IVIG infusion yesterday. She receives them monthly for immunoglobulin deficiency. Active with immunology. She stated she is seeing another doctor-Samuel Haque-Colon And Rectal Surgeon and Immunoologist on February 06. Has been wheezing today. Took Prednisone 100mg yesterday. Has a prescription for Prednisone at the pharmacy. Planning on picking this up today. Was taking Augmentin daily until yesterday. The patient stated she is supposed to be having a bronchoscopy. She lives with her , daughter and 2 grandchildren. She stated she has some broken ribs from taking Prednisone. Taking Reclast once yearly for her bones. The patient is active with Pulmonology and had a recent appt. They have made multiple recommendations to help improve her pulmonary status. She is also active with Palliative medicine. CM will discharge the patient from the [facility] intensive care ambulance paramedic mgmt. program at this time. [facility] 2912-03-2024 29 Addended by: SERGO QUIÑONES on: 12/03/2024 03:48 PM Modules accepted: Orders [facility] 37on 12-03-2024 37 YOUR APPOINTMENT TOEnder MACEDO WAS WITH THE [facility] LUNG NODULE CLINIC, COPD CLINIC, PULMONARY AND SLEEP MEDICINE OFFICE. PLEASE CALL OUR OFFICE AT [phone] for our [facility] location or [phone] for our [place] location, IF YOU HAVE NOT RECEIVED YOUR [...] to make improvements. COVID-19 VACCINATION INFORMATION: . [phone] [employer]G/CORONAVIRUS/ VACCINE [facility] Central Scheduling [phone] [facility] Sleep Scheduling [phone] [facility] Office Visiton 12-03-2024 Follow-up visit [id number] SoyLacy Wisdom 1950 F Date Provider Department Center 12/03/2024 [id number] BROWN SHMGMIT PULM None Family History Problem Relation Age of Onset High Blood Pressure Mother Comments: alive age 99 Rheum arthritis Father Heart disease Father Comments: age 59 Other Sister Comments: adrenal issues Skin cancer Sister COPD Brother Comments: age 65, smoker Lung cancer Brother 70 Prostate cancer Brother 60 No Known Problems Brother No Known Problems Brother Breast cancer Paternal Cousin 35 Family Status - Relation Status Age at Mother Alive Father 58 Sister Alive Sister Alive Brother Brother Alive Brother Alive Brother Alive Paternal Cousin Alive Level of Service:30491 NE OFFICE/OUTPATIENT ESTABLISHED MOD MDM 30 MIN Reason for Visit and Comments: Follow-up [737043] COPD [313] - EMPHYSEMA, O2-(JONAHTAN ) [facility] Progress Noteon 12-03-2024 Progress Note [facility] Pulmonary Medicine [address] [place] [address] Date of Service: 12/03/2024 Visit type: An Established patient Chief Complaint/Reason for Referral: Follow-up and COPD (EMPHYSEMA, O2-(JONATHAN )) SUBJECTIVE History of Present Illness: Dayana Wisdom Soy ( 1950) is a 74 y.o. 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 Last seen by pulmonary 09/2023. Patient known to [facility] providers (myself, Beny Smith APRN and Dr. Castellon) Patient has recurrent issue with poorly controlled asthma/COPD. She has been treated with prednisone on 11 separate occasions in the last 6 months, by multiple providers. She has also been treated with multiple rounds of antibiotics in recent months, again by multiple providers. Most recently, she was treated with 10 day course of augmentin by her florist's decorator. Unfortunately, patient has had issues with multiple recommendations made to her for optimized control of COPD/pulmonary issues. Symptoms also seem to be exacerbated primarily by getting IVIG infusions, which she gets monthly. She currently sees immunology in [facility], Dr. Davis. She has tried and failed multiple maintenance inhalers, most recently, this included Trelegy, and then Advair/Spiriva. She stopped taking the Trelegy because she didn't feel it helped her, and then also stopped the Advair due to perceived lack of benefit. She was prescribed Ohtuvayre nebs but they were too expensive and she didn't follow through with working on patient assistance to get this covered. She is prescribed zafirkulast by her florist's decorator, but stopped taking it due to perceived lack of benefit and cost. She was given sample of Dupixent in the florist's decorator office, and allegedly had reaction to it. She was later offered use of Tezspire, but she declined. She apparently sees palliative care in her home, but she wants them to stop coming because she doesn't see the benefit. MMRC Dyspnea Scale: Grade Description of Breathlessness [...] Diagnosis Date Asthma 2006 Breast cancer screening 02/2024 COPD (chronic obstructive pulmonary disease) (HCC) 2014 Home O2 since 2015 Ex-smoker 2009 GERD (gastroesophageal reflux disease) H/O colonoscopy 2018 due 2028 History of idiopathic thrombocytopenic purpura 2006 resolved History of shingles 2020 left CN V Hypertension 2004 Hypothyroidism IBS (irritable bowel syndrome) 2000 per [facility] Immunoglobulin deficiency (HCC) 2008 monthly IVIG infusion per Candace Gudino [place], [place] Nodule of upper lobe of right lung no change per LDCT- due 05/2025 Osteoporosis [address] Field Renal stones SURGICAL HISTORY: Past Surgical History: Procedure Laterality Date APPENDECTOMY 1965 BREAST BIOPSY Right 2010 benign BREAST CYST ASPIRATION Left 2007 benign CATARACT EXTRACTION W/ INTRAOCULAR LENS IMPLANT Bilateral CHOLECYSTECTOMY 2013 COLONOSCOPY 10/2018 Dr. Argueta- due 2028 COLONOSCOPY 2008 Turowski DENTAL SURGERY dentures HEMORRHOID SURGERY 1995 MENISCECTOMY Left 2016 Damico PARTIAL HYSTERECTOMY 1994 DUB- Ovaries intact SKIN BIOPSY from left arm, under right breast, and forehead. All negative for CA TONSILLECTOMY (HISTORICAL) ALLERGIES: Allergies Allergen Reactions Lisinopril Shortness of breath Cough and wheezing Other Other Envirmental allergies trees pollen rag weed, douglass Ampicillin Other reaction(s): Other, stomach issues Aspirin Hives Other reaction(s): U Other reaction(s): U Augmentin [Amoxicillin-Pot Clavulanate] Codeine Other reaction(s): GI Upset sleepy, dizzy Erythromycin unknown reaction Levaquin [Levofloxacin] Other Joint pain (ankles) Misc. Sulfonamide Containing Compounds Penicillins Other reaction(s): Other (See Comments) Upset stomach Other reaction(s): Other Other reaction(s): U Other reaction(s): Other Other reaction(s): Other, stomach issues Other reaction(s): stomach issues, U unknown reaction Sulfa Antibiotics Cephalexin Hives and Rash Other reaction(s): Hives Other reaction(s): U Other reaction(s): Hives Other reaction(s): Hives Other reaction(s): Hives, U MEDICATIONS: (more content not included)... [facility] RESPIRATORY CULTURE AND STAI Non 12-03-2024 RESPIRATORY CULTURE AND STAIN RESPIRATORY CULTURE Reference Few respiratory scott present. PENICILLIUM SPECIES (GENUS) Few Penicillium species (A) This is an edited result. Previous organism was Mold on 12/06/2024 at 1414 EDT. GRAM STAIN RESULT (A) Reference (A) Moderate Polymorphonuclear leukocytes per low power field Few Epithelial cells per low power field Moderate Gram positive cocci Few Gram negative bacilli [ S = SUSCEPTIBLE R = RESISTANT I = INTERMEDIATE S-DD = Susceptible-dose dependent NS = Non-susceptible NO = No Interpretation ] [facility] Comment on above: Performed By: #### L [id number] #### Program Instructor: BERNA HERNANDEZ ([id number]) [facility] ([facility]) [address] [place] [address] 11-25-2024 36 Patient called and notified of Dr. Rangel direction. No additional questions. Call ended [facility] 36 Sig: Take 3 tablets (30 mg) by mouth 2 times daily for 3 days, THEN 2 tablets (20 mg) daily for 3 days, THEN 1 tablet (10 mg) daily for 3 days, THEN 0.5 tablets (5 mg) daily for 3 days. Take 20 mg (2 tabs) once daily for 7 days, then 10 mg (1 tab) once daily for 7 days, then 5 mg (0.5 tab) daily for 14 days. [facility] 36 Name of caller: Lacy torres Contact phone number: [phone] Relationship to Patient: patient Provider: Jessie Practice: [facility] Chief Complaint/Reason for Call: Pt called in about her Rx predniSONE (Deltasone) 10 MG tablet , Pt was advised it wasn't at pharmacy. Called [facility], was advised they need clear directions, and new Rx sent. Two different directions was listed on script, please advise. Best time of day caller can be reached: Any Patient advised that office/PCP has 24-48 business hours to return their call: No [facility] 36on 11-24-2024 36 S: Patient spoke samir rodriguez [facility] nurse regarding COPD B: Onset of symptoms/concern three months but out of prednisone A: History of asthma, bronchitis, COPD. COPD flare up for three months since starting IVIG. She has been prescribed prednisone but she ran out 2 days ago. States the prednisone really helps. She is also taking her nebs and inhalers as prescribed. Short of breath with exertion some relief at rest especially with prednisone. Pulse ox is 97%. Constant O2 at 2 liters. No dizziness, runny nose. Eating and drinking as normal. Wheezing is constant and audible. States her florist's decorator gave her last prescription for prednisone for 10 days but he is an hour away and will not prescribe unless she comes to office. R: Second level triage wit Dr Roman who advised he will send prescription for prednisone. Allergies and pharmacy reviewed. Advised patient as above and also advised with any worsening symptoms go to ED. Patient understands care advice. No further needs at this time. Patient instructed to call back with new or worsening symptoms. Reason for Disposition Wheezing can be heard across the room Protocols used: Breathing Cjefepvpps-[id number]-IM [facility] 11-14-2024 36 Last follow up: 10/30/2024 Next appointment: 12/03/2024 Allergies[1] Requested Prescriptions Pending Prescriptions Disp Refills albuterol (2.5 MG/3ML) 0.083% nebulizer solution 75 mL 2 Sig: Take 3 mL (2.5 mg) by nebulization every 4 hours as needed for wheezing or shortness of breath. [1] Allergies Allergen Reactions Lisinopril Shortness of breath Cough and wheezing Other Other Envirmental allergies trees pollen rag weed, douglass Ampicillin Other reaction(s): Other, stomach issues Aspirin Hives Other reaction(s): U Other reaction(s): U Augmentin [Amoxicillin-Pot Clavulanate] Codeine Other reaction(s): GI Upset sleepy, dizzy Erythromycin unknown reaction Levaquin [Levofloxacin] Other Joint pain (ankles) Misc. Sulfonamide Containing Compounds Penicillins Other reaction(s): Other (See Comments) Upset stomach Other reaction(s): Other Other reaction(s): U Other reaction(s): Other Other reaction(s): Other, stomach issues Other reaction(s): stomach issues, U unknown reaction Sulfa Antibiotics Cephalexin Hives and Rash Other reaction(s): Hives Other reaction(s): U Other reaction(s): Hives Other reaction(s): Hives Other reaction(s): Hives, U [facility] 11-12-2024 36 S: Patient spoke samir PIMENTEL nurse regarding med refill B: Onset of symptoms/concern 11/12/24 A: Patient requesting refill albuterol (2.5 MG/3ML) 0.083% nebulizer solution. States they have 3 vials left. States they have enough to last until tomorrow. R: Patient understands care advice that office is currently closed and message will be sent to office for review and follow-up next business day. Allergies and pharmacy verified with patient. No further needs at this time. Patient instructed to call back with new or worsening symptoms. Medication name: albuterol (2.5 MG/3ML) 0.083% nebulizer solution Medication dosage: 3 mL (Milliliters) Monthly quantity needed: 30 days How many day supply requestin days Medication route: inhalation (inhaler) Medication administration time(s): every 4 hrs as needed If taking medication PRN, reason for taking medication: wheezing and shortness of breath If this is a controlled substance do you receive this or any other controlled medication from any other doctor or facility: N/A Ordering provider: Dr. Dyer Date of last office visit: unknown Date of next office visit: 12/03/24 Date of last refill: (see medication tab): unknown Updated/Validated preferred pharmacy: Yes Patient instructed to contact the pharmacy prior to picking up the medication: Yes Reason for Disposition [1] Prescription refill request for NON-ESSENTIAL medicine (i.e., no harm to patient if med not taken) AND [2] triager unable to refill per department policy Protocols used: Medication Refill and [id number] Last follow up: 10/30/2024 Next appointment: 12/03/2024 Allergies[1] Requested Prescriptions Pending Prescriptions Disp Refills albuterol 108 (90 Base) MCG/ACT inhaler 1 each 2 Sig: Inhale 2 puffs every 4 hours as needed for shortness of breath. [1] Allergies Allergen Reactions Lisinopril Shortness of breath Cough and wheezing Other Other Envirmental allergies trees pollen rag weed, douglass Ampicillin Other reaction(s): Other, stomach issues Aspirin Hives Other reaction(s): U Other reaction(s): U Augmentin [Amoxicillin-Pot Clavulanate] Codeine Other reaction(s): GI Upset sleepy, dizzy Erythromycin unknown reaction Levaquin [Levofloxacin] Other Joint pain (ankles) Misc. Sulfonamide Containing Compounds Penicillins Other reaction(s): Other (See Comments) Upset stomach Other reaction(s): Other Other reaction(s): U Other reaction(s): Other Other reaction(s): Other, stomach issues Other reaction(s): stomach issues, U unknown reaction Sulfa Antibiotics Cephalexin Hives and Rash Other reaction(s): Hives Other reaction(s): U Other reaction(s): Hives Other reaction(s): Hives Other reaction(s): Hives, U [facility] [address] Patient aware to contact [address] design draftsperson for this refills. [facility] 36 Medication name: albuterol (2.5 MG/3ML) 0.083% nebulizer solution 2.5 mg Medication dosage: 2.5 mg (Miligrams Monthly quantity needed: 75 mL How many day supply requestin days Medication route: Nebulization Medication administration time(s): as needed (PRN) If taking medication PRN, reason for taking medication: Every 4 hours PRN for wheezing, shortness of breath If this is a controlled substance do you receive this or any other controlled medication from any other doctor or facility: N/A Ordering provider: Jazmin Moy Date of last office visit: 08/20/24 Date of next office visit: 12/17/24 Date of last refill: (see medication tab): 03/28/23 Updated/Validated preferred pharmacy: Yes Patient instructed to contact the pharmacy prior to picking up the medication: Yes [facility] Anion gap in Serum or Plasma Ordered By: Mumtaz Field on 11-11-2024 Anion gap [Moles/Vol] 10 mmol/L 5-15 [facility] BUN/creatinine ratioOrdered By: Mumtaz Field on 11-11-2024 Urea nitrogen/Creatinine [Mass ratio] 20.2 mg/mg High 10-20 [facility] Bilirubin, totalOrdered By: Mumtaz Field on 11-11-2024 Bilirubin [Mass/Vol] 0.50 mg/dL 0.00-1.30 [facility] Carbon dioxide, total [Moles /volume] in Central venous bloodOrdered By: Mumtaz Field on 11-11-2024 CO2 [Moles/Vol] 27.3 mmol/L 21.0-32.0 [facility] Chloride assayOrdered By: Kenneth sudhir Field on 11-11-2024 Chloride [Moles/Vol] 103 mmol/L 98-108 [facility] Comprehensive Metabolic Prof ilon 11-11-2024 Albumin [Mass/Vol] 3.8 g/dL Normal 3.4-4.8 [facility] Comment on above: Performed By: #### L 506.1001, L500.4050 #### [facility] [address] [place], [address] Albumin/Globulin [Mass ratio] 0.9 {ratio} Normal 0.9-2.4 [facility] Comment on above: Performed By: #### L 506.1001, [id number] #### [facility] [address] [place], [address] ALK PHOS 78 U/L Normal 35-104 [facility] Comment on above: Performed By: #### L 506.1001, [id number] #### [facility] [address] [place], [address] ALT [Catalytic activity/Vol] 18 U/L Normal <=34 [facility] Comment on above: Performed By: #### L 506.1001, [id number] #### [facility] [address] [place], [address] AST [Catalytic activity/Vol] 18 U/L Normal <=31 [facility] Comment on above: Performed By: #### L 506.1001, [id number] #### [facility] [address] [place], [address] Bilirubin [Mass/Vol] 0.50 mg/dL Normal 0.00-1.30 [facility] Comment on above: Performed By: #### L 506.1001, [id number] #### [facility] [address] [place], [address] BUN/CRE 20.2 RATIO High 10-20 [facility] Comment on above: Performed By: #### L 506.1001, [id number] #### [facility] [address] [place], [address] Calcium [Mass/Vol] 9.4 mg/dL Normal 7.6-11.0 [facility] Comment on above: Performed By: #### L 506.1001, [id number] #### [facility] [address] [place], [address] Chloride [Moles/Vol] 103 mmol/L Normal 98-108 [facility] Comment on above: Performed By: #### L 506.1001, [id number] #### [facility] [address] [place], [address] CO2 [Moles/Vol] 27.3 mmol/L Normal 21.0-32.0 [facility] Comment on above: Performed By: #### L 506.1001, [id number] #### [facility] [address] [place], [address] Creatinine [Mass/Vol] 0.87 mg/dL Normal 0.70-1.20 [facility] Comment on above: Performed By: #### L 506.1001, [id number] #### [facility] [address] [place], [address] GAP 10 Normal 5-15 [facility] Comment on above: Performed By: #### L 506.1001, [id number] #### [facility] [address] [place], [address] GFR/1.73 sq M.predicted among non-blacks MDRD (S/P/Bld) [Vol rate/Area] 71 mL/min/{1.73_m2} Normal >60 [facility] Comment on above: Result Comment: mL/m in/1.73m2 CKD-EPI Creatinine Equation (2020) Performed By: #### L 506.1001, [id number] #### [facility] [address] [place], [address] Globulin (S) [Mass/Vol] 4.3 g/dL High 2.2-4.2 [facility] Comment on above: Performed By: #### L 506.1001, [id number] #### [facility] [address] [place], [address] Glucose [Mass/Vol] 89 mg/dL Normal 70-99 [facility] Comment on above: Performed By: #### L 506.1001, [id number] #### [facility] [address] [place], [address] Potassium [Moles/Vol] 3.4 mmol/L Normal 3.3-5.1 [facility] Comment on above: Performed By: #### L 506.1001, [id number] #### [facility] [address] [place], [address] Sodium [Moles/Vol] 141 mmol/L Normal 133-145 [facility] Comment on above: Performed By: #### L 506.1001, [id number] #### [facility] [address] [place], [address] T PROT 8.1 g/dL Normal 5.9-8.4 [facility] Comment on above: Performed By: #### L 506.1001, [id number] #### [facility] [address] [place], [address] Urea nitrogen [Mass/Vol] 18 mg/dL Normal 4-19 [facility] Comment on above: Performed By: #### L 506.1001, [id number] #### [facility] [address] [place], [address] Endocrinology Visit Reporton 11-11-2024 Endocrinology Visit Report [facility] [address] [place] [address] OFFICE VISIT Date of Service: 11/11/24 MR#: [id number] Acct: [id number] Name: DAYANA BRIGGS Rep #: [id number] : 1950 Provider: Venessa Arciniega Age/Sex: 74/F Location: [facility] Status: Signed Intake Vital Signs 10/30/23 13:00 08/26/24 12:56 11/11/24 13:16 Height 5 ft 1 in 5 ft 1 in 5 ft 1 in Weight: 163 lb 2 oz BMI 30.8 BP 136/82 H Blood Pressure Location Lt brachial Position Sitting Pulse 92 Pulse Source Monitor Pulse Oximetry (%) 97 Oxygen Delivery Method room air Oxygen Flow Rate (L/min) 2 Intake Visit Reasons: 1 Y FU Chief Complaint: Osteoporosis Is patient in pain?: No Allergies Environmental Allergies: Uncoded Allergy (Intermediate, Verified 11/11/24 13:18) Hives Sulfa (Sulfonamide Antibiotics) Allergy (Mild, Verified 11/11/24 13:18) Hives ampicillin Allergy (Verified 11/11/24 13:18) stomach issues aspirin (ASA) Allergy (Verified 11/11/24 13:18) Hives cephalexin monohydrate (From Keflex) Allergy (Verified 11/11/24 13:18) Hives lisinopril Allergy (Verified 11/11/24 13:18) Other codeine Adverse Reaction (Verified 11/11/24 13:18) Nausea/Vom/Diarrhea levofloxacin (From Levaquin) Adverse Reaction (Verified 11/11/24 13:18) Pain in joints Medications ???Medication ???Instructions ???Recorded ???Confirmed ???Type albuterol sulfate 90 mcg/actuation 2 puff inhalation Q4H PRN PRN So b 07/22/14 11/11/24 History aerosol inhaler (ProAir HFA) /Or Wheezing levothyroxine 100 mcg tablet 100 mcg PO DAILY thyroid 07/22/14 11/11/24 History omeprazole 20 mg capsule,delayed 20 mg PO DAILY stomach 07/22/14 History release albuterol sulfate 2.5 mg/3 mL 2.5 mg inhalation Q4H PRN 05/29/22 11/11/24 History (0.083 %) solution for nebulization shortness of breath or wheezing amlodipine 5 mg tablet 5 mg PO DAILY 05/29/22 11/11/24 Hi story cholecalciferol (vitamin D3) 25 25 mcg PO DAILY 05/29/22 11/11/24 History mcg (1,000 unit) capsule zafirlukast 20 mg tablet 20 mg PO BID 05/29/22 11/11/24 His tory atorvastatin 10 mg tablet 10 mg PO QDAY 10/30/23 11/11/24 Hi story calcium 333 mg-magnesium 133 mg-D3 1 tab PO DAILY 10/30/23 11/11/24 History 1.67 mcg-zinc 5 mg tablet ferrous sulfate 325 mg (65 mg 325 mg PO DAILY 10/30/23 11/11/24 History iron) tablet (Feosol) potassium citrate 99 mg capsule 99 mg PO DAILY 10/30/23 11/11/24 H istory spironolactone 25 mg tablet 25 mg PO QDAY 10/30/23 11/11/24 Hi story prednisone 20 mg tablet 40 mg (2 x 20 mg) PO DAILY 7 days 03/09/24 11/11/24 Rx #14 TABLETS zoledronic acid 5 mg/100 mL in 5 ea .Route ONCE #100 mL 11/25/24 11/25/24 Rx mannitol 5 %-water intravenous piggybck Have you fallen in the past year?: No PFSH Medical History Nodule of upper lobe of right lung Idiopathic thrombocytopenic purpura (ITP) Chronic hypoxic respiratory failure Emphysema of lung Asthma Thrombocytosis Anemia Leukocytosis Thrush RSV infection Acute and chronic respiratory failure with hypoxia Osteoporosis On home oxygen therapy COPD (chronic obstructive pulmonary disease) Former smoker GERD (gastroesophageal reflux disease) Hypothyroid Obesity (BMI 30.0-34.9) HTN (hypertension) Immune deficiency disorder Surgical History History of hemorrhoidectomy History of meniscectomy of left knee History of colonoscopy History of bilateral cataract extraction History of cholecystectomy History of appendectomy Hx of tonsillectomy Hx of hysterectomy Family History Mother Hypertension Father Rheumatoid arthritis Heart disease Sister Cancer Brother Cancer Social History household members: spouse Smoking Status: Former smoker how long ago did patient quit smoking: Quit 2009, prior 1-1.5 ppd since youth. alcohol intake: never substance use type: does not use caffeine: Yes HPI HPI Chief Complaint: Osteoporosis Details: DAYANA BRIGGS, is a 74 F who presents to the office today for follow up. She has osteoporosis with history of rib fractures in 2022. T-score LS spine -4 She received Reclast on 01/02/2023 She states she had a burning pain in her left hand and right foot after the infusion. She received second infusion 01/11/24 and did better. No recent fractures. ROS Const Constitutional: No fatigue or weight change ENT ENT: No dizziness/vertigo Cardio Cardiology: Positive for shortness of breath; No chest pain at rest, chest pain with exertion or palpita (more content not included)... Normal [facility] Glomerular filtration rate ( GFR) estimation/1.73 sq m using serum, plasma, or whole bOrdered By: Mumtaz Field on 11-11-2024 GFR/1.73 sq M.predicted among non-blacks MDRD (S/P/Bld) [Vol rate/Area] 71 mL/min/{1.73_m2} >60 [facility] Comment on above: mL/min/1.73m2 CKD-EP I Creatinine Equation (2020) Laboratory - Chemistry and C hemistry - challengeOrdered By: Mumtaz Field on 11-11-2024 AST [Catalytic activity/Vol] 18 U/L <32 [facility] Potassium measurement (mass/ volume)Ordered By: Mumtaz Field on 11-11-2024 Potassium (Unsp spec) [Mass/Vol] 3.4 mmol/L 3.3-5.1 [facility] Serum creatinine measurement (mass/volume)Ordered By: Mumtaz Field on 11-11-2024 Creatinine [Mass/Vol] 0.87 mg/dL 0.70-1.20 [facility] Serum globulin measurementOr dered By: Mumtaz Field on 11-11-2024 Globulin (S) [Mass/Vol] 4.3 g/dL High 2.2-4.2 [facility] Serum glucose measurement (m ass/volume)Ordered By: Mumtaz Field on 11-11-2024 Glucose [Mass/Vol] 89 mg/dL 70-99 [facility] Serum or plasma alanine samuel otransferase (ALT) measurementOrdered By: Mumtaz Field on 11-11-2024 ALT [Catalytic activity/Vol] 18 U/L <35 [facility] Serum or plasma albumin radha urement (mass/volume)Ordered By: Mumtaz Field on 11-11-2024 Albumin [Mass/Vol] 3.8 g/dL 3.4-4.8 [facility] Serum or plasma albumin/glob ulin mass ratioOrdered By: Mumtaz Field on 11-11-2024 Albumin/Globulin [Mass ratio] 0.9 {ratio} 0.9-2.4 [facility] Serum or plasma alkaline madina sphatase measurementOrdered By: Mumtaz iFeld on 11-11-2024 ALP [Catalytic activity/Vol] 78 U/L 35-104 [facility] Serum or plasma calcium radha urement (mass/volume)Ordered By: Mumtaz Field on 11-11-2024 Calcium [Mass/Vol] 9.4 mg/dL 7.6-11.0 [facility] Serum or plasma urea nitroge n measurement (mass/volume)Ordered By: Mumtaz Field on 11-11-2024 Urea nitrogen [Mass/Vol] 18 mg/dL 4-19 [facility] Sodium levelOrdered By: Mumtaz Field on 11-11-2024 Sodium [Moles/Vol] 141 mmol/L 133-145 [facility] Total proteinOrdered By: Chandrakant Field on 11-11-2024 Protein [Mass/Vol] 8.1 g/dL 5.9-8.4 [facility] Vitamin D,25 Hydroxyon 11-11 Vitamin D 25-OH 47.4 ng/mL Normal 30-100 [facility] Comment on above: Result Comment: Delaney min D Status Deficiency: <20 ng/mL (50nmol/L) Insufficiency: 20-30 ng/mL (50-75 nmol/L) Sufficiency: 30-100 ng/mL (75-250 nmol/L) Toxicity: >100 ng/mL (>250 nmol/L) Performed By: #### L 506.1001, L500.4050 #### [facility] [address] [place], [address] 36on 11-10-2024 36 Office note faxed [facility] 36 Name of caller: Viktoriya Contact phone number: [phone] Relationship to Patient: [facility] medical Provider: KRISTINA Brown Practice: [facility] Chief Complaint/Reason for Call: Viktoriya states they would like the last office notes faxed to [phone]. Please advise. Best time of day caller can be reached: any Patient advised that office/PCP has 24-48 business hours to return their call: N/A [facility] 11-06-2024 36 Ordering provider: jessie Date of last office visit: 08/20/2024 Date of next office visit: 12/17/2024 Updated/Validated preferred pharmacy: yes Patient instructed to contact the pharmacy prior to picking up the medication: yes (1) Medication name: hfa proair inhaler Medication dosage: 90 mcg (Micrograms) Monthly quantity needed: 120 How many day supply requestin days Medication route: inhalation (inhaler) Medication administration time(s): every 4 hours If taking medication PRN, reason for taking medication: no If this is a controlled substance do you receive this or any other controlled medication from any other doctor or facility: no Date of last refill (see medication tab): n/a [facility] 11-04-2024 36 Spoke with dayana haley phone, complains of wheezing, increased work of breathing has got worse over past few days. Reports finished prednisone 40 mg for 5 days on October 28 and has became worse. Has IgE infusion 11/10/24 and is planning to have discussion with physician regarding persistent symptoms after each infusion. Patient does have a follow up appointment with joyce Brown 12/03/24. Expressed discussion of dependence on steroid for symptom control and exploring alternative treatments. Dupixent gave her side effects, Ohtuvayre is too expensive, as are many inhalers. Mostly concerned that patient is not responding to treatment plan. Sent in 5 days 40 mg prednisone [facility] 36 Patient called requesting prednisone to be called in to [facility] pharmacy in [place]. She is wheezing. If you cannot call in, she will come in to office visit if needed. [facility] 3610-30-2024 36 Name of caller: Aleena Contact phone number: [phone] Relationship to Patient: patient Provider: Archie ACEVEDO Practice: Pulm Chief Complaint/Reason for Call: Pt states that she does not feel bad but can not breathe and that she ran out of predniSONE (Deltasone) 20 MG tablet [[id number]] Pt asking for more to be sent to Pharmacy [facility]/pharmacy [place] [address] [place] #: [id number] Best time of day caller can be reached: Any Patient advised that office/PCP has 24-48 business hours to return their call: Yes [facility] 3610-27-2024 36 Last follow up: 10/20/2024 Next appointment: 12/03/2024 Allergies[1] Requested Prescriptions Pending Prescriptions Disp Refills fluconazole (Diflucan) 100 MG tablet [Pharmacy Med Name: FLUCONAZOLE 100 MG TABLET] 7 tablet 0 Sig: TAKE 1 TABLET BY MOUTH DAILY FOR 7 DAYS [1] Allergies Allergen Reactions Lisinopril Shortness of breath Cough and wheezing Other Other Envirmental allergies trees pollen rag weed, douglass Ampicillin Other reaction(s): Other, stomach issues Aspirin Hives Other reaction(s): U Other reaction(s): U Augmentin [Amoxicillin-Pot Clavulanate] Codeine Other reaction(s): GI Upset sleepy, dizzy Erythromycin unknown reaction Levaquin [Levofloxacin] Other Joint pain (ankles) Misc. Sulfonamide Containing Compounds Penicillins Other reaction(s): Other (See Comments) Upset stomach Other reaction(s): Other Other reaction(s): U Other reaction(s): Other Other reaction(s): Other, stomach issues Other reaction(s): stomach issues, U unknown reaction Sulfa Antibiotics Cephalexin Hives and Rash Other reaction(s): Hives Other reaction(s): U Other reaction(s): Hives Other reaction(s): Hives Other reaction(s): Hives, U [facility] 10-23-2024 36 Spoke with patient regarding prednisone order placed. Asked for a recommendation for florist's decorator with [facility] - She would like a second opinion regarding IgG deficiency, IVIG infusions and states reactions secondary post transfusion is becoming problematic and symptoms are worse than before. Symptoms oare consistently exacerbated by IVIG infusions she receives monthly from immunology Dr Davis in [facility]. Claims inhalers/nebulizer are not helping [facility] 10-21-2024 36 Name of caller: Abilio booker Contact phone number: [phone] Relationship to Patient: pharmacy Provider: SEA Smith Practice: pulm Chief Complaint/Reason for Call: Carly states the medication predniSONE (Deltasone) 10 MG tablet has two set of directions and they would like to verify the correct one. Please advise. Best time of day caller can be reached: any Patient advised that office/PCP has 24-48 business hours to return their call: N/A [facility] 10-20-2024 29 Addended by: BENY SMITH on: 10/22/2024 03:16 PM Modules accepted: Orders [facility] 10-20-2024 37 YOUR APPOINTMENT TOEnder REMINGTON WAS WITH THE [facility] L[facility]G [facility]ODULE CL[facility]IC, COPD CLINIC, PULMONARY AND SLEEP MEDICINE OFFICE. PLEASE CALL OUR OFFICE AT [phone] for our [place] office location or [phone] for our [place] location, IF YOU HAVE NOT RECEIVED YOUR [...] to make improvements. COVID-19 VACCINATION INFORMATION: PH. [phone] HEALTH.ORG/CORONAVIRUS/ VACCINE [facility] Central Scheduling [phone] [facility] Sleep Scheduling [phone] [facility] Office Visiton 10-20-2024 Follow-up visit [id number] Lacy Briggs 1950 F Date Provider Department Center 10/20/2024 [facility]Y BELTR[facility]N [facility] PUL[facility] None Family History Problem Relation Age of Onset High Blood Pressure Mother Comments: alive age 99 Rheum arthritis Father Heart disease Father Comments: age 59 Other Sister Comments: adrenal issues Skin cancer Sister COPD Brother Comments: age 65, smoker Lung cancer Brother 70 Prostate cancer Brother 60 No Known Problems Brother No Known Problems Brother Breast cancer Paternal Cousin 35 Family Status - Relation Status Age at Mother Alive Father 58 Sister Alive Sister Alive Brother Brother Alive Brother Alive Brother Alive Paternal Cousin Alive Level of Service:30693 NE OFFICE/OUTPATIENT ESTABLISHED MOD MDM 30 MIN Reason for Visit and Comments: Wheezing [718679] Shortness of Breath [562633] Cough [28] - Green-yellow,thick Headache [52] [facility] Progress Noteon 10-20-2024 Progress Note [facility] Pulmonary Medicine [address] [place] [address] Date of Service: 10/20/2024 Visit type: An Established patient Chief Complaint/Reason for Referral: No chief complaint on file. SUBJECTIVE History of Present Illness: Dayana Briggs ( 1950) is a 74 y.o. 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 Last seen by Dr Castellon 08/28/24 - Presents with recurrent poorly controlled asthma/COPD. Multiple prednisone treatments over past 12 months from multiple providers. Was treated with prednisone and Augmentin just over a month ago. Symptoms are consistently exacerbated by IVIG infusions she is receiving monthly from immunology Dr. Davis in [facility]. Can hear audible crackles and wheezing while patient is sitting in room with me today. Wearing oxygen 2-3 L goal for supplemental O2 to keep pulse ox 88-92% when she needs it during the day. Room air currently. Does not wear at rest only with activity/walking. SpO2 running 95-97% with oxygenIs here on room air, SpO2 is 94%. SpO2 - wearing 2.5 Liters at home more frequent at home, POC wears when walking. If sitting stays room air. Stopped using Trelegy prior to 09/29/2024, no longer wanted to use it as it was not beneficial to her at all. Attempted to qualify her for Trelegy joe which she was over qualified. Patient has severe obstruction with +BD response, triple therapy is appropriate. Has been trying multiple inhalers and LAMA seem to be the once that cost too much. On 10/17/24 she called in to the office, having a typical flare up 3 days after her infusion last week and requested for an inhaler and steroid. Started steroid 10/18/24, has had 2 doses of 5 40 mg doses called in. Spiriva inhaler was called in and too expensive. Did start using fluticasone-salmeterol 250-50 on regular basis, states not sure that it helping. Using Duo Neb every 4-6 hours. Does help get the mucous out. Does not cough much and typically its non productive. Taking Zarirlukast daily, and its affordable. Taking Mucinex daily. Does not appear to be in distress. States chest feels tight, coughing more frequent, like a rattling and can't cough anything up, and increased shortness of breath. Denies fever, chill, leg swelling, palpitations. MMRC Dyspnea Scale: Grade Description of Breathlessness [...] am breathless when dressing. OBJECTIVE MEDICAL HISTORY: Medical History[1] SURGICAL HISTORY: Surgical History[2] ALLERGIES: Allergies[3] MEDICATIONS: Current Medications[4] SOCIAL HISTORY: Social History Tobacco Use Smoking status: Former Current packs/day: 0.00 Average packs/day: 2.0 packs/day for 53.2 years (106.4 ttl pk-yrs) Types: Cigarettes Start date: 09/14/1955 Quit date: 12/01/2008 Years since quittin.8 Smokeless tobacco: Never Substance Use Topics Alcohol use: No Alcohol/week: 0.0 standard drinks of alcohol FAMILY HISTORY: Family History[5] REVIEW OF SYSTEMS: Review of Systems Constitutional: Positive for fatigue. Negative for activity change, chills and fever. HENT: Positive for congestion. Respiratory: Positive for cough, chest tightness, shortness of breath and wheezing. Cardiovascular: Negative for palpitations and leg swelling. Neurological: Negative for light-headedness and headaches. VITAL SIGNS: There were no vitals taken for this visit. PHYSICAL EXAM: Physical Exam Constitutional: Appearance: She is obese. HENT: Nose: Congestion present. Cardiovascular: Rate and Rhythm: Normal rate and regular rhythm. Pulses: Normal pulses. Heart sounds: Normal heart sounds. No murmur heard. Pulmonary: Effort: No respiratory distress. Breath sounds: No stridor. Examination of the right-middle field reveals decreased breath sounds. Examination of the left-middle field reveals decreased breath sounds. Examination of the right-lower field reveals decreased breath sounds. Examination of the left-lower field reveals decreased breath sounds and rhonchi. Decreased breath sounds, wheezing and rhonchi present. Skin: General: Skin is warm and dry. Neurological: Mental Status: She is alert and oriented to person, place, and time. Psychiatric: Behavior: Behavior normal. DATA REVIEWED: PFT's-- CXR-- 06/11/24 FINDINGS: Lungs: Mod (more content not included)... [facility] Progress Noteon 10-17-2024 Progress Note Contacted by CM that patient is wheezing and has not been using Trelegy. She has severe obstruction with +BD response. She needs to be on triple therapy of some form. I am not sure what is covered under her drug formulary, but I can try sending some Rx for her and if they are too expensive, she can let me know and ill send something different. I will also send short course of steroid to get wheezing under control until she gets back on maintenance inhaler. Please update patient on this. Thanks! [facility] Progress Note Patient taking stero id, flucticasone, nebulizer, and albuterol inhaler [facility] Progress Note EMR reviewed. The patient had an appt. with Palliative medicine on 10/16/24: Dayana Briggs is a 74 y.o. female who presents for Palliative Care Follow-up. COPD: Dyspnea with slight exertion, O2 dependent. Pt states warm weather worsens dyspnea. Pt is currently on prednisone burst from road design draftsperson. Pt lives with family for support and is independent of all ADLs Condition: stable Presence of Cough: no Dyspnea: Yes Frequency of Exacerbations: daily Tobacco Use: No Oxygen Use: Continuous 5 L/min Weight Gain/Loss: The patient reports no significant weight change. Medication Adherences: Yes Blood pressure 128/72, pulse 92, temperature 36.7 ?C (98.1 ?F), temperature source Temporal, height 1.524 m (5'), weight 145 lb (65.8 kg), SpO2 97%. CM outreach on 10/17/24: PMH: COPD, HTN, IBS, OA, HYPOTHYROID, HYPERLIPIDEMIA HTN MEDS: Amlodipine 5mg daily Spironolactone 25mg daily Occasional checks her BP's-120/70's yesterday-stated had an ROD TAPE OPERATOR from [place] who visits her approximately every 6 weeks. They were there to see her yesterday and checked her vitals. Denies any edema COPD MEDS: Stopped using her Trelegy inhaler 1 puff daily-stated didn't see much of a difference when using it Using Albuterol inhaler every 4 hours Using nebulizer every 4 hours Using 2.5L O2 continuously Monitoring pulse ox daily-97% on 2.5L O2 Has had a lot of wheezing-stated has been worse since Sunday after getting her infusion SOB with any exertion Denies any cough The patient stated she got the IVIG infusion on Sunday. Gets an injection every month. She stated every time after she gets this infusion her breathing gets worse. She recently took Prednisone 50mg per day and Levaquin for 5 days that she had left over. CM educated her on the importance of always finishing the entire antibiotic prescription. Plan: CM contacted the WATCH AND CLOCK MAKER AND REPAIRER-Joyce Brown at the patient's Pulmonary office regarding the patient's breathing-has had a lot of wheezing. CM suggested possibly Prednisone or an antibiotic, which has helped her in the past. CM also notified Joyce about the patient not using her Trelegy inhaler and asked her if there is another inhaler that could be prescribed. The patient will continue to use her nebulizer and Albuterol inhaler every 4 hours as needed. She will continue to monitor her pulse ox daily. CM will continue to follow-up. Scheduled next outreach. [facility] Progress Note Patient seen in pulm office yesterday [facility] 36on 10-15-2024 36 Noted, thanks [place] [id number] Just following up on this. Since the patient is over income for our financial assistance and does not appear to be taking the medication, we will be discharging her from [facility]. We'd be happy to help with any future referrals. Thank you! Eleanor Kennedy manager commercial real estate [facility] 36on 09-29-2024 36 Jeffrey, After a few calls back and forth with patient regarding her Trelegy Inhaer, patient has stated that she no longer wants to take it and stopped taking it. Patient stated she was on it for a bit and didn't feel that it was working. She stopped and notfied the office according to my staff last week. Then we are following up with her today and she stated she restarted it again for a short time and still didn't feel it was working, so she is quit taking the trelegy inhaler. Notifying the office of this patient decision to see what office would like to do with patient therapy. Thank you, Antony Guerin Specialty Pharmacy Liaison [facility] [place] [address] Patient aware. [place] [address] I spoke with patient and she stated she is having a bad COPD flare up since her infusion last week. She would like to be seen today or tomorrow. I advised her we don't have a single opening. He is being seen tomorrow at 3PM. What would you like us to do? [place] [address]on 09-12-2024 36 Script for Trelegy resent to [facility] for joe approval. [facility] 36on 09-11-2024 36 We would be happy to see if she qualifies! For the [facility] financial sales assistant program, it does require [facility] to fill the script. Please cancel script to [facility] and send script to [facility] pharmacy, once we have script we will be able to reach out to this patient to offer financial sales assistant. Please let me know if you have any questions, thank you! [facility] 36 Hi - Could you see if this patient could qualify [facility]? Thank you beny [facility] 37on 09-10-2024 37 YOUR APPOINTMENT TOEnder REMINGTON WAS WITH THE [facility] LUNG NODULE CLINIC, COPD CLINIC, PULMONARY AND SLEEP MEDICINE OFFICE. PLEASE CALL OUR OFFICE AT [phone] for our [place] office location or [phone] for our [place] location, IF YOU HAVE NOT RECEIVED YOUR [...] to make improvements. COVID-19 VACCINATION INFORMATION: . [phone] HEALTH.ORG/CORONAVIRUS/ VACCINE [facility] Central Scheduling [phone] [facility] Sleep Scheduling [phone] [facility] Office Visiton 09-10-2024 Follow-up visit [id number] SoyYadiraherbie Wisdom 1950 F Date Provider Department Center 09/10/2024 BENY BELTRÁN [facility] PULM None Family History Problem Relation Age of Onset High Blood Pressure Mother Comments: alive age 99 Rheum arthritis Father Heart disease Father Comments: age 59 Other Sister Comments: adrenal issues Skin cancer Sister COPD Brother Comments: age 65, smoker Lung cancer Brother 70 Prostate cancer Brother 60 No Known Problems Brother No Known Problems Brother Breast cancer Paternal Cousin 35 Family Status - Relation Status Age at Mother Alive Father 58 Sister Alive Sister Alive Brother Brother Alive Brother Alive Brother Alive Paternal Cousin Alive Level of Service:44140 NE OFFICE/OUTPATIENT ESTABLISHED MOD MDM 30 MIN Reason for Visit and Comments: Follow-up [739420] COPD [313] - EMPHYSEMA -FLARE/UPS O2([facility]) Asthma [148] Lung Nodule [519] [facility] Progress Noteon 09-10-2024 Progress Note [facility] Pulmonary Medicine [address] [place] [id number] Date of Service: 09/10/2024 Visit type: An Established patient Chief Complaint/Reason for Referral: Follow-up, COPD (EMPHYSEMA -FLARE/UPS/O2([facility])), Asthma, and Lung Nodule SUBJECTIVE History of Present Illness: Dayana Briggs ( 1950) is a 74 y.o. 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 Last seen by Dr Castellon 08/28/24 - Presents with recurrent poorly controlled asthma/COPD. Multiple prednisone treatments over past 8 months from multiple providers. Was treated with prednisone and Augmentin just over a month ago. Patient states was feeling better couple weeks ago, the symptoms began 4 days ago after nephew was painting their deck. Since then symptoms have exacerbated. Also states she always has a flare up after her round of IVIG infusion from immunology. Exacerbation started 4 days ago, she had prednisone at home and started taking 50 mg for 2 day and took 40 mg for 2 days. Feels like she is developing thrush in the back of her throat, since she started taking prednisone. States this happens every time. Can hear audible wheezing. Does not appear to be in distress. States chest feels tight, coughing more frequent, like a rattling and can't cough anything up, and increased shortness of breath. Using Trelegy daily as prescribed, states it is over $100 a month. She does not want to go without it but its very expensive for her budget. Will attempt to sent [facility] retail pharmacy as she may qualify for a joe. Wearing oxygen 2-3 L goal for supplemental O2 to keep pulse ox 88-92% when she needs it during the day. Room air currently. Does not wear when resting, only with activity/walking. FnG1teqoyna 95-97% with oxygen. If takes off and walks she will drop into 80s. Quit smoking 12/01/2008, smoked 2 ppd for 53 years, smokers live in home. Denies fever, chills, leg swelling, palpitations. Has not been taking Claritin past couple of days. Pneumonia vaccine: Seasonal Flu vaccine: COVID-19 vaccine: MMRC Dyspnea Scale: Grade Description of Breathlessness [...] am breathless when dressing. OBJECTIVE MEDICAL HISTORY: Medical History[1] SURGICAL HISTORY: Surgical History[2] ALLERGIES: Allergies[3] MEDICATIONS: Current Medications[4] SOCIAL HISTORY: Social History Tobacco Use Smoking status: Former Current packs/day: 0.00 Average packs/day: 2.0 packs/day for 53.2 years (106.4 ttl pk-yrs) Types: Cigarettes Start date: 09/14/1955 Quit date: 12/01/2008 Years since quittin.7 Smokeless tobacco: Never Substance Use Topics Alcohol use: No Alcohol/week: 0.0 standard drinks of alcohol FAMILY HISTORY: Family History[5] REVIEW OF SYSTEMS: Review of Systems Constitutional: Positive for fatigue. Negative for activity change, chills and fever. HENT: Positive for congestion. Respiratory: Positive for cough, chest tightness, shortness of breath and wheezing. Cardiovascular: Negative for palpitations and leg swelling. Neurological: Negative for light-headedness and headaches. VITAL SIGNS: BP (!) 145/75 Pulse 90 Temp 36.4 ?C (97.5 ?F) (Temporal) Ht 5' (1.524 m) Wt 162 lb 9.6 oz (73.8 kg) SpO2 95% Comment: 2Lp BMI 31.76 kg/m? PHYSICAL EXAM: Physical Exam Constitutional: Appearance: She is obese. HENT: Nose: Congestion present. Cardiovascular: Rate and Rhythm: Normal rate and regular rhythm. Pulses: Normal pulses. Heart sounds: Normal heart sounds. No murmur heard. Pulmonary: Effort: No respiratory distress. Breath sounds: No stridor. Examination of the right-middle field reveals decreased breath sounds. Examination of the left-middle field reveals decreased breath sounds. Examination of the right-lower field reveals decreased breath sounds. Examination of the left-lower field reveals decreased breath sounds and rhonchi. Decreased breath sounds, wheezing and rhonchi present. Skin: General: Skin is warm and dry. Neurological: Mental Status: She is alert and oriented to person, place, and time. Psychiatric: Behavior: Behavior normal. DATA REVIEWED: PFT's-- CXR-- 06/11/24 FINDINGS: Lungs: Moderate to severe pulmonary emphysema. 1.2 x 0.7 cm right upper lobe nodule has decreased in size fr (more content not included)... [facility] Progress Noteon 08-29-2024 Progress Note EMR reviewed. The patient had a follow-up appt. with Pulmonology on 08/28/24: History of Present Illness: Dayana Briggs ( 1950) is a 74 y.o. 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 History notable for recurrent use of steroids. Symptoms also seem to be exacerbated by getting IVIG infusions. She sees immunology in [facility]. She takes Trelegy as prescribed, but does not feel it really helps her. She also uses nebs without much relief. She declined further evaluation to pursue BLVR. She also reports she was treated with dupixent by her florist's decorator but she had a bad reaction to it and had to stop. She has also tried zafirlukast, which is expensive and not covered by insurance, but she does not find clinical benefit with use. Today, patient reports thankful she has not used steroids in over a month She attributes to claritin Wee discussed BLVR, I do not think she is ideal candidate and she does not wish to proceed further. Vitals: BP 129/76 Pulse 81 Temp 36.3 ?C (97.3 ?F) (Temporal) Ht 1.524 m (5') Wt 74 kg (163 lb 3.2 oz) SpO2 92% BMI 31.87 kg/m? BSA 1.77 m? CM outreach on 08/29/24: PMH: COPD, HTN, IBS, OA, HYPOTHYROID, HYPERLIPIDEMIA COPD MEDS: Trelegy inhaler 1 puff daily Using Albuterol inhaler every 4 hours Using nebulizer when has a chest cold or when having SOB. CM educated the patient on using her nebulizer when needed for increased wheezing or SOB. Using 2.5L O2 continuously. Has a portable oxygen tank. Monitoring pulse ox-95-97% on 2.5L O2 Stated has some wheezing today SOB with exertion. Recovers when resting. Tries to pace herself. HTN MEDS: Amlodipine 5mg daily Spironolactone 25mg daily Occasionally monitors her BP's-yesterday 129/68. Stated it also gets checked monthly at the infusion center. Denies any current edema. Usually gets some swelling after her infusion. Last infusion was 08/18/24. Hasn't been taking steroids this month. Yesterday starting feeling like she was getting a cold-wheezing, coughing and runny nose. She took a Claritin today. CM suggested she use her nebulizer to help with her wheezing. She gets IVIG infusions monthly. Has been getting those infusions for the past 17 years. Lives with her , daughter and 2 grandchildren. She denies any current needs. Plan: The patient will continue to monitor her BP's and pulse ox. She will use her Albuterol inhaler every 4 hours and nebulizer as needed for wheezing and increased SOB. The patient was agreeable to a follow-up phone call in a few weeks. Scheduled next outreach. [facility] 37on 08-28-2024 37 YOUR APPOINTMENT TOEnder MACEDO WAS WITH THE [facility], COPD CLINIC, PULMONARY AND SLEEP MEDICINE OFFICE. PLEASE CALL OUR OFFICE AT [phone] for our [facility] location or [phone] for our [place] location, IF YOU HAVE NOT RECEIVED YOUR [...] to make improvements. COVID-19 VACCINATION INFORMATION: PH. [phone] HEALTH.[email or web address]/ VACCINE [facility] Central Scheduling [phone] [facility] Sleep Scheduling [phone] [facility] Office Visiton 08-28-2024 Follow-up visit [id number] Lacy Briggs 1950 F Date Provider Department Center 08/28/2024 FILIPE OBANDO [facility] PULM None Family History Problem Relation Age of Onset High Blood Pressure Mother Comments: alive age 99 Rheum arthritis Father Heart disease Father Comments: age 59 Other Sister Comments: adrenal issues Skin cancer Sister COPD Brother Comments: age 65, smoker Lung cancer Brother 70 Prostate cancer Brother 60 No Known Problems Brother No Known Problems Brother Breast cancer Paternal Cousin 35 Family Status - Relation Status Age at Mother Alive Father 58 Sister Alive Sister Alive Brother Brother Alive Brother Alive Brother Alive Paternal Cousin Alive Level of Service:55505 NE OFFICE/OUTPATIENT ESTABLISHED MOD MDM 30 MIN Reason for Visit and Comments: Follow-up [311054] COPD [313] - 3-MONTH [id number] (JONATHAN) [facility] Progress Noteon 08-28-2024 Progress Note [facility] Pulmonary Medicine [address] [place] [address] Date of Service: 08/28/2024 Visit type: An Established patient Chief Complaint/Reason for Referral: Follow-up and COPD (3-MONTH [id number] (JONATHAN)) SUBJECTIVE History of Present Illness: Dayana Briggs ( 1950) is a 74 y.o. 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 History notable for recurrent use of steroids. Symptoms also seem to be exacerbated by getting IVIG infusions. She sees immunology in [facility]. She takes Trelegy as prescribed, but does not feel it really helps her. She also uses nebs without much relief. She declined further evaluation to pursue BLVR. She also reports she was treated with dupixent by her florist's decorator but she had a bad reaction to it and had to stop. She has also tried zafirlukast, which is expensive and not covered by insurance, but she does not find clinical benefit with use. Today, patient reports thankful she has not used steroids in over a month She attributes to stephanie Allison discussed BLVR, I do not think she is ideal candidate and she does not wish to proceed further. ACT: CAT: MMRC Dyspnea Scale: Grade Description of Breathlessness [...] Diagnosis Date Asthma 2006 Breast cancer screening 02/2024 COPD (chronic obstructive pulmonary disease) ([facility]) 2014 Home O2 since 2015 Ex-smoker 2009 GERD (gastroesophageal reflux disease) H/O colonoscopy 2018 due 2028 History of idiopathic thrombocytopenic purpura 2006 resolved History of shingles 2020 left CN V Hypertension 2004 Hypothyroidism IBS (irritable bowel syndrome) [address] [facility] Immunoglobulin deficiency ([facility]) 2008 monthly IVIG infusion per Dr. Davis, [facility], [place] Nodule of upper lobe of right lung no change per LDCT- due 05/2025 Osteoporosis [address] Field Renal stones SURGICAL HISTORY: Past Surgical History: Procedure Laterality Date APPENDECTOMY 1965 BREAST BIOPSY Right 2010 benign BREAST CYST ASPIRATION Left 2008 benign CATARACT EXTRACTION W/ INTRAOCULAR LENS IMPLANT Bilateral CHOLECYSTECTOMY 2013 COLONOSCOPY 10/2018 Dr. Argueta- due 2028 COLONOSCOPY 2008 [facility] DENTAL SURGERY dentures HEMORRHOID SURGERY 1995 MENISCECTOMY Left 2016 [place] PARTIAL HYSTERECTOMY 1994 DUB- Ovaries intact SKIN BIOPSY from left arm, under right breast, and forehead. All negative for CA TONSILLECTOMY (HISTORICAL) ALLERGIES: Allergies Allergen Reactions Lisinopril Shortness of breath Cough and wheezing Other Other Envirmental allergies trees pollen rag weed, douglass Ampicillin Other reaction(s): Other, stomach issues Aspirin Hives Other reaction(s): U Other reaction(s): U Augmentin [Amoxicillin-Pot Clavulanate] Codeine Other reaction(s): GI Upset sleepy, dizzy Erythromycin unknown reaction Levaquin [Levofloxacin] Other Joint pain (ankles) Misc. Sulfonamide Containing Compounds Penicillins Other reaction(s): Other (See Comments) Upset [...] shortness of breath., Disp: 1 each, Rfl: 2 amLODIPine (Norvasc) 5 MG tablet, TAKE 1 TABLET BY MOUTH EVERY DAY, Disp: 90 tablet, Rfl: 1 atorvastatin (Lipitor) 10 MG tablet, Take 1 tablet (10 mg) by mouth daily., Disp: 90 tablet, Rfl: 3 cholecalciferol (Vitamin D-3) 25 MCG (1000 UT) capsule, Take 1 capsule by mouth in the morning and 1 capsule before bedtime., Disp: , Rfl: Exfajeltxfw-Ocuxknstq-D ilant (Trelegy Ellipta) 200-62.5-25 MCG/ACT aerosol powder , Inhale 1 pu (more content not included)... [facility] 12 Lead EKG performed by [facility] on 08-26-2024 12 Lead EKG performed by [facility] [address] [place] [address] 12 Lead EKG performed by [facility] 08/26/24 0839 MR#: [id number] Acct: [id number] Name: DAYANA BRIGGS Rep #: [id number] : 1950 74 From: Filipe Mancilla MD Attending Dr: Dr. Filipe Mancilla MD Status: DE P AMB Ordering Dr: Filipe Mancilla MD Date: 08/26/24 Location: [facility] Sex: F C Admitted: [facility]/12 Lead EKG performed by [facility] ECG Report Interpretation ---Sinus Rhythm WITHIN NORMAL LIMITSElectronically signed on 08/26/2024 at 15:[address] Filipe Mancilla [employer] Version [id number] 08/26/24 1531 Date Filipe Mancilla MD CC: Dr. Prosper Roman, Date Dictated: 08/26/24838 Date Transcribed: 08/26/24838 Reporting Developer: Signed [facility] Cardiology Visit Reporton Cardiology Visit Report [facility] [address] [place] [address] OFFICE VISIT Date of Service: 08/26/24 MR#: [id number] Acct: [id number] Name: DAYANA BRIGGS Rep #: [id number] : 1950 Provider: Dr. Filipe swann MD Age/Sex: 74/F Location: [facility] Status: Signed HPI HPI History of Present Illness Details: Patient is a 74-year-old white female that comes in for new patient visit today. The patient was referred because of coronary calcifications documented on a CT scan in May 2024. The patient was said to have moderate coronary artery calcifications the aorta and pulmonary arteries were normal in caliber. The patient has a significant past medical history including ITP, immunodeficiency disorder for which she receives infusions of IgM IgG monthly. She also has severe COPD with was oxygen dependent she has a carries a history of anemia hypertension and hyperlipidemia. The patient recently had blood work done through the primary service and was told that her lipids and thyroid were appropriately replaced and treated. The patient reports that her primary issue is her dyspnea on exertion which is really unchanged over the last 3 years. It is worse in the wintertime and she is intolerant to almost anything that scented. She reports that she wheezes all the time and is worse with activity. The patient has her oxygen concentrator with her today she is 93% saturated at rest. The patient notes that she has had this shortness of breath and dyspnea on exertion at this level for 3 years. She was evaluated in December 2023 with an echocardiogram which showed normal LV size and function with a EF of 72% right ventricle was normal in size with normal systolic function. She had no significant aortic valve issues there was 1+ tricuspid regurgitation right ventricular systolic pressure was normal at 25 there is no interatrial shunt and the pulmonic valve had trace regurgitation. This is actually a benign echocardiogram for her given situation. The patient does not have a family history of coronary disease as far as her parents are brothers and sisters she does have a daughter age 33 that had a cardiac event and a stent and her has been treated with coronary artery disease. The patient carries a history of hypertension and hyperlipidemia as noted she quit smoking in 2008 and she is not diabetic. The patient reports that she is gets around in her house she walks up 15 steps to get to the bathroom in her home and she is able to get around in the house with her home oxygen. Intake Vital Signs 03/09/24 18:00 08/26/24 12:56 Height 5 ft 1 in 5 ft 1 in Weight: 161 lb BMI 30.4 BP 123/77 H Blood Pressure Location Lt brachial Position Sitting Respiration 20 H Pulse 77 Pulse Source Monitor Pulse Oximetry (%) 93 Oxygen Delivery Method room air Oxygen Flow Rate (L/min) 2.5 Comment with activity and at night Intake Visit Reasons: Coronary Artery Calcification (Petrilla) Setter Machine Required: No Accompanied by: Self Is patient in pain?: No Allergies Environmental Allergies: Uncoded Allergy (Intermediate, Verified 08/26/24 12:57) Hives Sulfa (Sulfonamide Antibiotics) Allergy (Mild, Verified 08/26/24 12:57) Hives ampicillin Allergy (Verified 08/26/24 12:57) stomach issues aspirin (ASA) Allergy (Verified 08/26/24 12:57) Hives cephalexin monohydrate (From Keflex) Allergy (Verified 08/26/24 12:57) Hives lisinopril Allergy (Verified 08/26/24 12:57) Other codeine Adverse Reaction (Verified 08/26/24 12:57) Nausea/Vom/Diarrhea levofloxacin (From Levaquin) Adverse Reaction (Verified 08/26/24 12:57) Pain in joints Medications ???Medication ???Instructions ???Recorded ???Confirmed ???Type albuterol sulfate 90 mcg/actuation 2 puff inhalation Q4H PRN PRN So b 07/22/14 08/26/24 History aerosol inhaler (ProAir HFA) /Or Wheezing levothyroxine 100 mcg tablet 100 mcg PO DAILY thyroid 07/22/14 08/26/24 History omeprazole 20 mg capsule,delayed 20 mg PO DAILY stomach 07/22/14 History release albuterol sulfate 2.5 mg/3 mL 2.5 mg inhalation Q4H PRN 05/29/22 08/26/24 History (0.083 %) solution for nebulization shortness of breath or wheezing amlodipine 5 mg tablet 5 mg PO DAILY 05/29/22 08/26/24 Hi story cholecalciferol (vitamin D3) 25 25 mcg PO DAILY 05/29/22 08/26/24 History mcg (1,000 unit) capsule zafirlukast 20 mg tablet 20 mg PO BID 05/29/22 08/26/24 His tory atorvastatin 10 mg tablet 10 mg PO QDAY 10/30/23 08/26/24 Hi story calcium 333 mg-magnesium 133 mg-D3 1 tab PO DAILY 10/30/23 08/26/24 History 1.67 mcg-zinc 5 mg tablet ferrous sulfate 325 mg (65 mg 325 mg PO DAILY 10/30/23 08/26/24 History iron) tablet (Feosol) potassium citrate 99 mg capsul (more content not included)... [facility] Progress Noteon 08-25-2024 Progress Note EMR reviewed. The patient had a Medicare annual wellness visit with PCP on 08/20/24: Vitals: BP 112/72 Pulse 83 Temp 36.6 ?C (97.9 ?F) (Temporal) Ht 1.524 m (5') Wt 73.8 kg (162 lb 12.8 oz) SpO2 95% BMI 31.79 kg/m? BSA 1.77 m? CM outreach on 08/25/24: PMH: COPD, HTN, IBS, OA, HYPOTHYROID, HYPERLIPIDEMIA Follow-up appts: 08/28/24-Pulmonology COPD MEDS: Trelegy inhaler 1 puff daily ?using Albuterol inhaler ?using nebulizer ?using 2.5L O2 continuously ?monitoring pulse ox ?wheezing or SOB Outreach attempted. CM talked to the patient's who stated the patient was currently not home. CM told her she would try and give her a call another time. He was agreeable. Scheduled next outreach. [facility] 36on 08-21-2024 36 Spoke with patient a nd she says she only takes the spirolactone. [facility] [id number] 36 Call patient and confirm what diuretic is she on. Is She both on Maxide and spironolactone? [facility] [id number] 37 Fasting lab in the future Personalized Preventative Plan for Dayana Briggs - 08/20/2024 Medicare offers a range of preventative health benefits. Some of the tests and screenings are paid in full while others may be subject to a deductible, co-insurance, and / or copay. Some of these benefits include a comprehensive review of your medical history including lifestyle, illnesses that may run in your family, and various assessments and screenings as appropriate. After reviewing your medical record and screening and assessments performed today, your provider may have ordered immunizations, labs, imaging, and / or referrals for you. A list of these orders (if applicable) as well as your Preventative Care list are included within your After Visit Summary for your review. Other Preventative Recommendations: A preventive eye exam by an him specialist is recommended every 1-2 years to screen for glaucoma, cataracts, macular degeneration, and other eye disorders. A preventive dental visit is recommended every 6 months. Try to get at least 150 minutes of exercise per week or 10,000 steps per day on a pedometer. You need 1200-1500mg of calcium and 1824-6193 international units of vitamin D per day. It is possible to meet your calcium requirement with diet alone, but a vitamin D supplement is usually necessary to meet this goal. When exposed to the sun, use a sunscreen that protects against both UVA and UVB radiation with an SPF of 30 or greater. Reapply every 2-3 hours or after sweating, drying off with a towel, or swimming. Always wear a seat belt when traveling in a car. Always wear a helmet when riding a bicycle or a motorcycle [facility] Office Visiton 08-20-2024 Follow-up visit [id number] Lacy Briggs 1950 [facility] Provider Department Center 08/20/2024 [id number]-SWRKRULOPROSPER ROMAN [facility] Family History Problem Relation Age of Onset High Blood Pressure Mother Comments: alive age 99 Rheum arthritis Father Heart disease Father Comments: age 59 Other Sister Comments: adrenal issues Skin cancer Sister COPD Brother Comments: age 65, smoker Lung cancer Brother 70 Prostate cancer Brother 60 No Known Problems Brother No Known Problems Brother Breast cancer Paternal Cousin 35 Family Status - Relation Status Age at Mother Alive Father 58 Sister Alive Sister Alive Brother Brother Alive Brother Alive Brother Alive Paternal Cousin Alive Level of Service:[id number] NE PPPS, SUBSEQ VISIT Reason for Visit and Comments: Medicare Annual Wellness Visit Subsequent [677] [facility] Progress Noteon 08-20-2024 Progress Note [facility] [address] [facility] [address] Dept: [phone] Dept Chief Complaint: Dayana Briggs is an 74 y.o. female here for an annual wellness visit. 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 Current Outpatient Medications Medication Sig Dispense Refill albuterol (2.5 MG/3ML) 0.083% nebulizer solution Take 3 mL (2.5 mg) by nebulization every 4 hours as needed for wheezing or shortness of breath. 75 mL 2 albuterol 108 (90 Base) MCG/ACT inhaler Inhale 2 puffs every 4 hours as needed for shortness of breath. 1 each 2 amLODIPine (Norvasc) 5 MG tablet TAKE 1 TABLET BY MOUTH EVERY DAY 90 tablet 1 amoxicillin-clavulanate (Augmentin) 600-42.9 MG/5ML suspension Take 5 mL by mouth 2 times daily for 10 days. 100 mL 0 atorvastatin (Lipitor) 10 MG tablet Take 1 tablet (10 mg) by mouth daily. 90 tablet 3 cholecalciferol (Vitamin D-3) 25 MCG (1000 UT) capsule Take 1 capsule by mouth in the morning and 1 capsule before bedtime. Wucrtnixplw-Lxqhewnbw-L ilant (Trelegy Ellipta) 200-62.5-25 MCG/ACT aerosol powder Inhale 1 puff daily. 1 each 5 ipratropium (Atrovent) 0.02 % nebulizer solution INHALE THE CONTENTS OF 1 VIAL VIA NEBULIZER 2 TIMES DAILY ipratropium-albuterol (Duo-Neb) 0.5-2.5 mg/3 mL nebulizer solution Take 3 mL by nebulization 4 times daily as needed for wheezing. 30 mL 2 levothyroxine (Synthroid, Levoxyl) 100 MCG tablet Take 1 tablet (100 mcg) by mouth daily for 360 doses. 90 tablet 3 loratadine (Claritin Allergy Childrens) 5 MG/5ML solution solution Take 10 mL (10 mg) by mouth daily. 300 mL 1 omeprazole (PriLOSEC) [address] capsule Take 1 capsule (20 mg) by mouth daily. 90 capsule 3 Potassium Gluconate 2.5 MEQ tablet Take by mouth. sodium chloride 7 % nebulizer solution nebulizer solution Take 4 mL by nebulization 2 times daily as needed (chest congestion). 360 mL 2 spironolactone (Aldactone) 25 MG tablet Take 1 tablet (25 mg) by mouth daily. 90 tablet 1 triamterene-hydrochloro thiazide (Maxzide-25) 37.5-25 MG tablet Take 1 tablet by mouth daily. zafirlukast (Accolate) 20 MG tablet Take 20 mg by mouth in the morning and 20 mg before bedtime. Current Facility-Administered Medications Medication Dose Route Frequency Provider Last Rate Last Admin albuterol (2.5 MG/3ML) 0.083% nebulizer solution 2.5 mg 2.5 mg Nebulization Once Jazmin Moy PA-C ipratropium (Atrovent) 0.02 % nebulizer solution 0.5 mg 0.5 mg Nebulization Once Jazmin Moy PA-C Also reviewed during this visit: Med Hx Surg Hx Fam Hx The following health maintenance schedule was reviewed with the patient and provided in printed form in the after visit summary: Health Maintenance Topic Date Due Hepatitis C Screening Never done Diabetes Screening Never done RSV Immunization for Adults (1 - Risk 60-74 years 1-dose series) Never done Bone Density Scan 12/08/2022 COVID-19 Vaccine ( season) 2023 TSH Level 03/23/2024 Medicare Advantage Annual Wellness Visit Never done Mammogram 03/05/2025 Depression Screening 08/20/2025 DTaP/Tdap/Td Vaccines (2 - Td or Tdap) 12/08/2026 Lipid Panel 03/23/2028 Colorectal Cancer Screening 11/05/2028 Influenza Vaccine Completed Pneumococcal Vaccine: 50+ Years Completed Zoster Vaccines Completed RSV Immunization under 20 Months Aged Out HIB Vaccines Aged Out Hepatitis B Vaccines Aged Out IPV Vaccines Aged Out Hepatitis A Vaccines Aged Out Meningococcal Vaccine Aged Out Rotavirus Vaccines Aged Out HPV Vaccines Aged Out Lung Cancer Screening Discontinued List of current healthcare providers: Patient Care Team: Prosper Roman DO as PCP - General (Family Medicine) Joyce Chino RN as Education Program Manager (Technical Administrator Manager) Orders Placed This Encounter Procedures Lipid panel Standing Status: Future Number of Occurrences: 1 Standing Expiration Date: 08/20/2025 TSH Standing Status: Future Number of Occurrences: 1 Standing Expiration Date: 08/20/2025 Review of Systems ex-smoker for many years with history of COPD, chronic immunoglobulin deficiency, hypertension and hyperlipidemia presents for annual wellness exam. Having difficulty with recurrent infections requiring multiple prednisone and antibiotic. Will be seeing florist's decorator and road design draftsperson soon. No night sweats fevers or chills. No change in phlegm lately. Denies chest p (more content not included)... [facility] 36on 08-15-2024 36 Recent Visits Date Type Provider Dept 08/12/24 Office Visit Jazmin Moy PA-C [facility] 07/30/24 Office Visit Jazmin Moy PA-C [facility] 05/19/24 Office Visit Jazmin Moy PA-C [facility] 02/20/24 Office Visit Prosper Roman DO [facility] 10/24/23 Office Visit Jazmin Moy PA-C [facility] 09/19/23 Office Visit Jazmin Moy PA-C [facility] 08/21/23 Office Visit Prosper Roman DO [facility] Showing recent visits within past 365 days and meeting all other requirements Future Appointments Date Type Provider Dept 08/20/24 Appointment Prosper Roman DO [facility] Showing future appointments within next 90 days and meeting all other requirements Requested Prescriptions Pending Prescriptions Disp Refills amLODIPine (Norvasc) 5 MG tablet [Pharmacy Med Name: AMLODIPINE BESYLATE 5 MG TAB] 90 tablet 1 Sig: TAKE 1 TABLET BY MOUTH EVERY DAY Provider: Prosper Roman DO Verified pharmacy: yes Verified day(s) supplied: yes Verified refill(s) needed (previous prescription showing no refills in chart): Yes Have you received any controlled medications from any other provider? N/A Overdue for visit: No If yes - patient scheduled? Yes Most recent labs completed in chart? Yes Hypertension: Lab Results Component Value Date NA 139 12/19/2021 K 4.2 12/19/2021 EGFR 66 05/19/2024 BUN 18 05/19/2024 CREATININE 0.92 05/19/2024 [facility] 36on 08-12-2024 36 Triage message revie wed with clinical staff. Patient appointment confirmed. PCP will assess at appointment visit. [facility] 36 S: Patient spoke wit h [facility] nurse regarding nasal congestion. B: Onset of symptoms for a week. AMOL 07/30/24. A: Nasal congestion after ATB completed for chest congestion, head pressure, drainage, thick green yellow draiange. Using Mucinex. R: Appointment scheduled, address given to the patient, instructed to bring photo ID, insurance info and medication list to the appointment. Patient understands care advice. No further needs at this time. Patient instructed to call back with new or worsening symptoms. Reason for Disposition [1] Taking antibiotic > 7 days AND [2] nasal discharge not improved Protocols used: Sinus Infection on Antibiotic Follow-up [id number] [facility] Office Visiton 08-12-2024 Follow-up visit [id number] DesireeLacy diane Artis 1950 F Date Provider Department Center 08/12/2024 [id number] GARCIA [facility] Family History Problem Relation Age of Onset High Blood Pressure Mother Comments: alive age 98 Rheum arthritis Father Heart disease Father Comments: age 59 Other Sister Comments: adrenal issues Skin cancer Sister COPD Brother Comments: age 65, smoker Lung cancer Brother 70 Prostate cancer Brother 60 No Known Problems Brother No Known Problems Brother Breast cancer Paternal Cousin 35 Family Status - Relation Status Age at Mother Alive Father 58 Sister Alive Sister Alive Brother Brother Alive Brother Alive Brother Alive Paternal Cousin Alive Level of Service:27639 NE OFFICE/OUTPATIENT ESTABLISHED LOW MDM 20 MIN Reason for Visit and Comments: Cough [28] - Green/yellow mucus Nasal Congestion [766189] - Drainage Wheezing [631149] [facility] Progress Noteon 08-12-2024 Progress Note [facility] - [address] [facility] [address] Dept: [phone] Dept Loc: [phone] Visit type: Established Patient Reason for Visit: Cough (Green/yellow mucus), Nasal Congestion (Drainage ), and Wheezing Assessment and Plan 1. Chronic frontal sinusitis - amoxicillin-clavulanate (Augmentin) 600-42.9 MG/5ML suspension; Take 5 mL by mouth 2 times daily for 10 days., Starting Sun08/12/2024, Until Sun08/22/2024, Normal - loratadine (Claritin Allergy Childrens) 5 MG/5ML solution solution; Take 10 mL (10 mg) by mouth daily., Starting 08/12/2024, Normal Lengthy conversation with the patient and she has ongoing issue with chronic infections history of chronic sinusitis she states she was treated for her sinusitis and infection with doxycycline 5 weeks ago and states it feels like never really truly got better and she has been still dealing with a great deal of sinus drainage and discharge blowing out of a lot of greenish-yellowish rhinitis. And feeling like she has a lot of pressure that is developing in the bridge of her nose and up into her frontal sinuses. Did discuss my concerns of having reactions to the medications. She states she has an upset stomach with the penicillins and she is agreeable to try Augmentin again but would prefer the liquid form as she has a difficult time with larger pills. I did discuss with her that there is a high likelihood that this is all viral versus seasonal allergy patient states that she is insisting that it seems to be much more aggressive and worsen that at this point, I did encourage her to continue using the Claritin. No follow-ups on file. Subjective HPI 74-year-old female well-known to the office for longstanding history of chronic respiratory issues COPD with frequent exacerbations. Contacted the call center today for same-day evaluation for ongoing issues with her sinus and congestion. This is her third visit I 5 weeks and she has been on 2 rounds of antibiotics over the past month. Patient reports that she has a great deal of ongoing sinus drainage and discharge chronic in nature is worse over the last several weeks. Yellowish-greenish rhinitis and discharge with a great deal of sinus pressure and fullness in the frontal sinuses. She does report that her cough congestion and shortness of breath symptoms all seem to be improving. Review of Systems Constitutional: Negative for chills and fever. HENT: Positive for congestion, postnasal drip, rhinorrhea, sinus pressure and sinus pain. Respiratory: Negative for cough and shortness of breath. Cardiovascular: Negative for chest pain. Gastrointestinal: Negative for diarrhea, nausea and vomiting. Musculoskeletal: Negative for myalgias. All other systems reviewed and are negative. Allergies Allergen Reactions Lisinopril Shortness of breath Cough and wheezing Other Other Envirmental allergies trees pollen rag weed, douglass Ampicillin Other reaction(s): Other, stomach issues Aspirin Hives Other reaction(s): U Other reaction(s): U Augmentin [Amoxicillin-Pot Clavulanate] Codeine Other reaction(s): GI Upset sleepy, dizzy Erythromycin unknown reaction Levaquin [Levofloxacin] Other Joint pain (ankles) Misc. Sulfonamide Containing Compounds Penicillins Other reaction(s): Other (See Comments) Upset stomach Other reaction(s): Other Other reaction(s): U Other reaction(s): Other Other reaction(s): Other, stomach issues Other reaction(s): stomach issues, U unknown reaction Sulfa Antibiotics Cephalexin Hives and Rash Other reaction(s): Hives Other reaction(s): U Other reaction(s): Hives Other reaction(s): Hives Other reaction(s): Hives, U Current Outpatient Medications Medication Sig Dispense Refill albuterol (2.5 MG/3ML) 0.083% nebulizer solution Take 3 mL (2.5 mg) by nebulization every 4 hours as needed for wheezing or shortness of breath. 75 mL 2 albuterol 108 (90 Base) MCG/ACT inhaler Inhale 2 puffs every 4 hours as needed for shortness of breath. 1 each 2 amLODIPine (Norvasc) 5 MG tablet Take 1 tablet (5 mg) by mouth daily. 90 tablet 1 atorvastatin (Lipitor) 10 MG tablet Take 1 tablet (10 mg) by mouth daily. 90 tablet 3 cholecalciferol (Vitamin D-3) 25 MCG (1000 UT) capsule Take 1 capsule by mouth in the morning and 1 capsule before bedtime. fluconazole (Diflucan) 100 MG tablet Take 1 tablet (100 mg) by mouth daily for 7 doses. 7 tablet 0 Iftaeiuxnjb-Poixqfqzc-J ilant (Trelegy Ellipta) 200-62.5-25 MCG/ACT aerosol powder Inhale 1 puff daily. 1 each 5 ipratropium (Atrovent) 0.02 % nebulizer solution INHALE THE CONTENTS OF 1 VIAL VIA NEBULIZER 2 TIMES DAILY ipratropium-albuterol (Duo-Neb) 0.5-2.5 mg/3 mL nebulizer solution Take 3 mL by nebulization 4 times daily as needed for wheezing. 30 mL 2 levothyroxine (Synthroid, Levox (more content not included)... [facility] Progress Noteon 08-08-2024 Progress Note EMR reviewed. The patient had an appt. with PCP's office on 07/30/24: HPI 74-year-old female well-known to the office for longstanding history of chronic respiratory issues COPD with frequent exacerbations. Contacted the call center today for same-day evaluation for ongoing issues with her COPD and exacerbation. Patient has an ongoing prescription of prednisone at home for symptoms started approximate 5 days ago she did take prednisone yesterday pulse ox is remaining at 98% on her continuous 2.5 L. Patient was just seen 3 weeks ago with COPD exacerbation and sinusitis and was placed on doxycycline and prednisone at that time. Patient was also subsequently been seen by myself back in April and was placed on antibiotics and a flareup of COPD then. Patient is followed up with pulmonology for ongoing exacerbations. Took 50mg prednisone, Still getting infusions, and feels like when she gets infusion she gets sick and needs meds Was sick last few weeks with vomiting and diarrhea. And then grandson was sick recently with URI symptoms. Vitals: BP 130/70 Pulse 86 Temp 36.2 ?C (97.2 ?F) (Temporal) Ht 1.524 m (5') Wt 72.2 kg (159 lb 3.2 oz) SpO2 96% BMI 31.09 kg/m? BSA 1.75 m? CM outreach on 07/09/24: PMH: COPD, HTN, IBS, OA, HYPOTHYROID, HYPERLIPIDEMIA Follow-up appts: 08/20/24-Family medicine COPD MEDS: Trelegy inhaler 1 puff daily Using Albuterol inhaler every 4 hours Using nebulizer 3 times daily Using 2.5L O2 continuously Monitoring pulse ox-97% on 2.5L O2 when resting Has had some wheezing-using her nebulizer and rescue inhaler SOB when walking. Recovers when resting. She stated she finished her antibiotic-Clindamycin 3 days ago. She has a few days left of the Prednisone. Started taking Claritin for seasonal allergies. Also using Mucinex spray as needed. Has had a lot of wheezing and sinus drainage. The patient stated she had to help her with the grandchildren and needed to go. CM told the patient she would follow-up with her in a few weeks. Scheduled next outreach. [facility] 08-07-2024 36 Placed call to alf tay. Two patient identifers confirmed. Was able to speak to patient. All concerns in message have been addressed. No questions at this time. Call ended [facility] 36 S: Patient spoke samir PIMENTEL nurse regarding yeast in mouth B: Onset of symptoms/concern today A: Was in week or 2 ago, saw Alessandro due to COPD flare, not worse, has improved slightly, but is really not much better, still having some wheezing, has been taking steroid, now has thrush. States she has been on steroids for a long time on and off for COPD and this is a problem she gets at times, Nystatin swish doesn't seem to help, but Fluconazole seems to help better. Thinks maybe also starting to get vaginal yeast symptoms as well. Happens while on steroids. Also states COPD symptoms slightly better than when seen, but not significantly, still wheezing. Allergies and pharmacy verified. States she also has appointment coming up with Dr. Roman on 08/20. Denies: pain, fever, difficulty swallowing, R: RN will send TE to office with medication request. Patient understands care advice. No further needs at this time. Patient instructed to call back with new or worsening symptoms. Reason for Disposition White patches that stick to tongue or inner cheek, which can be wiped off Protocols used: Mouth [id number]-NI [facility] 07-30-2024 29 Addended by: JAZMIN MOY on: 07/30/2024 12:00 PM Modules accepted: Level of Service [facility] 07-30-2024 36 S: Patient spoke samir PIMENTEL nurse regarding COPD flare B: Onset of symptoms/concern started 5 days ago A: Patient states she started prednisone yesterday that she had spare at home and she was not getting any better so started it. Oxygen is 2.5 and pulse ox is 98%. Wheezing really bad. Sputum is hard to get up right now and is change in color and is greenish yellow right now. Denies any COVID contacts and has not tested. Denies any fevers. R: Appointment scheduled for today at 10:40am with Jonh Moy. Insurance verified. Patient given care advice per protocol. Patient understands care advice. No further needs at this time. Patient instructed to call back with new or worsening symptoms. Reason for Disposition Change in color of sputum (e.g., from white to yellow-green sputum) Protocols used: COUGH - [id number] [facility] Office Visiton 07-30-2024 Follow-up visit [id number] Lacy Briggs 1950 F Date Provider Department Center 07/30/2024 JAZMIN ARREDONDO [facility] Family History Problem Relation Age of Onset High Blood Pressure Mother Comments: alive age 98 Rheum arthritis Father Heart disease Father Comments: age 59 Other Sister Comments: adrenal issues Skin cancer Sister COPD Brother Comments: age 65, smoker Lung cancer Brother 70 Prostate cancer Brother 60 No Known Problems Brother No Known Problems Brother Breast cancer Paternal Cousin 35 Family Status - Relation Status Age at Mother Alive Father 58 Sister Alive Sister Alive Brother Brother Alive Brother Alive Brother Alive Paternal Cousin Alive Level of Service:09213 NE OFFICE/OUTPATIENT ESTABLISHED MOD MDM 30 MIN Reason for Visit and Comments: COPD [313] - flare [facility] Progress Noteon 07-30-2024 Progress Note [facility] - [address] [facility] [address] Dept: [phone] Dept Loc: [phone] Visit type: Established Patient Reason for Visit: COPD (flare) Assessment and Plan 1. COPD exacerbation (HCC) - clindamycin (Cleocin) 300 MG capsule; Take 1 capsule (300 mg) by mouth 2 times daily for 7 days., Starting Sun07/30/2024, Until Sun08/06/2024, Normal - predniSONE (Deltasone) 10 MG tablet; Multiple Dosages:Starting Sun07/30/2024, Until 08/02/2024 at 2359, THEN Starting 08/03/2024, Until Sun08/06/2024 at 2359, THEN Starting Lana 08/07/2024, Until 08/10/2024 at 2359, THEN Starting 08/11/2024, Until 08/12/2024 at 2359, THEN Starting 08/13/2024, Until Lana 08/14/2024 at 2359Take 5 tablets (50 mg) by mouth daily for 4 days, THEN 4 tablets (40 mg) daily for 4 days, THEN 3 tablets (30 mg) daily for 4 days, THEN 2 tablets (20 mg) daily for 2 days, THEN 1 tablet (10 mg) daily for 2 days., Normal Patient has ongoing issues with chronic COPD that is poorly controlled he says she has seen pulmonology in the past has breathing treatments at home, then she really has not used them today states she does not feel like they are much benefit she is maxed out on her medications and nothing seems to be helping. She states when she gets these infusions periodically she ends up needing antibiotics and it causes flareups of her COPD although she does readily admit she has a daughter at home that she lives with who smokes and he also has multiple individuals at home are sick recently as well which are passing the illnesses to her. She does have a history of brittle COPD which is easily exacerbated she is on continuous oxygen that she usually will take out when she is resting. But usually needs it with any type of exertion. No follow-ups on file. Subjective HPI 74-year-old female well-known to the office for longstanding history of chronic respiratory issues COPD with frequent exacerbations. Contacted the call center today for same-day evaluation for ongoing issues with her COPD and exacerbation. Patient has an ongoing prescription of prednisone at home for symptoms started approximate 5 days ago she did take prednisone yesterday pulse ox is remaining at 98% on her continuous 2.5 L. Patient was just seen 3 weeks ago with COPD exacerbation and sinusitis and was placed on doxycycline and prednisone at that time. Patient was also subsequently been seen by myself back in April and was placed on antibiotics and a flareup of COPD then. Patient is followed up with pulmonology for ongoing exacerbations. Took 50mg prednisone, Still getting infusions, and feels like when she gets infusion she gets sick and needs meds Was sick last few weeks with vomiting and diarrhea. And then grandson was sick recently with URI symptoms. Review of Systems Constitutional: Negative for chills and fever. HENT: Negative for congestion and sore throat. Respiratory: Positive for cough, shortness of breath and wheezing. Cardiovascular: Negative for chest pain. Gastrointestinal: Positive [...] Hives Other reaction(s): U Other reaction(s): U Augmentin [Amoxicillin-Pot Clavulanate] Codeine Other reaction(s): GI Upset sleepy, dizzy Erythromycin unknown reaction Levaquin [Levofloxacin] Other Joint pain (ankles) Misc. Sulfonamide Containing Compounds Penicillins Other reaction(s): Other (See Comments) Upset stomach Other reaction(s): Other Other reaction(s): U Other reaction(s): Other Other reaction(s): Other, stomach issues Other reaction(s): stomach issues, U unknown reaction Sulfa Antibiotics Cephalexin Hives and Rash Other reaction(s): Hives Other reaction(s): U Other reaction(s): Hives Other reaction(s): Hives Other reaction(s): Hives, U Current Outpatient Medications Medication Sig Dispense Refill albuterol (2.5 MG/3ML) 0.083% nebulizer solution Take 3 mL (2.5 mg) by nebulization every 4 hours as needed for wheezing or shortness of breath. 75 mL 2 albuterol 108 (90 Base) MCG/ACT inhaler Inhale 2 puffs every 4 hours as needed for shortness of breath. 1 each 2 amLODIPine (Norvasc) 5 MG tablet Take 1 tablet (5 mg) by mouth daily. 90 tablet 1 atorvastatin (Lipitor) 10 MG tablet Take 1 tablet (10 mg) by mouth daily. 90 tablet 3 cholecalciferol (Vitamin D-3) 25 MCG (100 (more content not included)... [facility] 36on 07-25-2024 36 Message released to patient as written. Yes If they are alluding to the coronary calcifications found on her CT scans that can be very nonspecific finding in a previous smoker, but would need follow-up. Appointment to discuss options for workup with me or cardiology referral to Dr. Mancilla if she prefers Patient's further questions if applicable: Patient would like a referral to Dr. Mancilla. Dr. Mancilla phone number, . Please Advise. Were all questions from office addressed or relayed to the patient from encounter: Yes [facility] 36on 07-23-2024 36 Left message for patient to return call to the office. [facility] 36on 07-22-2024 36 312/[address] [facility] 36 Name of caller: Lacy torres Contact phone number: [phone] Relationship to Patient: patient Provider: Dr. Roman Practice: [facility] Chief Complaint/Reason for Call: Patient requesting a referral for cardiology. Patient states at her infusion appointment yesterday 07/21/24 was told she should should make an appointment with a hotel front desk agent due to her CT scan results. Patient is requesting referral for Dr. Filipe Mancilla at [facility]. Patient did not have fax number. Please advise. Best time of day caller can be reached: any Patient advised that office/PCP has 24-48 business hours to return their call: Yes [facility] Progress Noteon 07-09-2024 Progress Note EMR reviewed. The patient had an appt. with PCP's office on 07/02/24: HPI - Dayana Briggs (: 1950) is a 74 y.o. female , Established patient, here for the evaluation of the following chief complaint(s): Sinus Problem Reports having a sinus/cold for a week. Sinus pressure and congestion. Using nasal sprays and not helping much. No fever or chills. Initially had a temp of 99, reports the pressure in her face and forehead is worsening. Has severe copd - Reports her breathing is not as bad as it usually is. However worries that her congestion is going into her lungs and thinks that she may be a little shorter of breath than normal Last prednisone was a couple weeks ago. Has not taking her trelogy x 3 days- recommend restarting. Vitals: BP 128/78 Pulse 90 Temp 37.1 ?C (98.7 ?F) (Infrared) Resp 24 Wt 72.2 kg (159 lb 3.2 oz) SpO2 92% BMI 31.09 kg/m? BSA 1.75 m? CM outreach on 07/09/24: PMH: COPD, HTN, IBS, OA, HYPOTHYROID, HYPERLIPIDEMIA Follow-up appts: 08/20/24-Family medicine COPD MEDS: Trelegy inhaler 1 puff daily Using Albuterol inhaler every 4 hours as needed Using nebulizer every 3-4 days Using oxygen 2L continuously. Has a portable tank. Monitoring pulse ox daily-usually 97-98% when resting. Stated pulse ox decreases into the 80's when ambulating. Able to do her own ADL's Constant wheezing-currently taking Prednisone 20mg today, tapering to 10mg tomorrow Denies any current SOB-uses nebulizer and Albuterol when feeling SOB Has a referral to an ENT. They are going to check her esophagus. Has an appt. for 08/05/24. Sees Dr. Dyer-Operator Technician every 4 months. Patient told CM that her breathing has been bad for years. HTN MEDS: Spironolactone 25mg daily Amlodipine 5mg daily BP's are being checked at an infusion center monthly. She stated her BP's are usually 120's over 70's. Patient receives IVIG (intravenous immunoglobulin) infusions once per month. 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 She stated she has a BP machine and will check her BP's occasionally. Occasionally checking BP's at home Left foot edema after infusion for a few days Lives with her , daughter and grandchildren Patient's sisters and niece help with housework. Her daughter helps with cooking and will order take out food The patient quit smoking 2008. Completed SDOH Denies any current needs. The patient was agreeable to a follow-up phone call in a few weeks. Scheduled next outreach. [facility] 36on 07-07-2024 36 Name of caller: Lacy torres Contact phone number: [phone] Relationship to Patient: patient Provider: [place] Practice: ent Chief Complaint/Reason for Call: patient is cancelling their appointment on the and does not need to reschedule they found someone closer. Please advise and thank you Best time of day caller can be reached: any Patient advised that office/PCP has 24-48 business hours to return their call: No [facility] 29on 07-02-2024 29 Addended by: DENISE DEAN on: 07/07/2024 10:53 AM Modules accepted: Level of Service [facility] 36on 07-02-2024 36 Name of caller: Lacy torres Contact phone number: [phone] Relationship to Patient: patient Provider: Dr. Disla Practice: [facility] Chief Complaint/Reason for Call: Pt is requesting a different ENT referral as the current one for [place] is too far and Pt is wanting one in the [place] area, please advise. Best time of day caller can be reached: Any Patient advised that office/PCP has 24-48 business hours to return their call: No [facility] 37on 07-02-2024 37 Make sure to follow up with pulmonology and ENT [facility] Office Visiton 07-02-2024 Follow-up visit [id number] DesireeroxiLacy 1950 F Date Provider Department Center 07/02/2024 [id number] DEAN [facility] Family History Problem Relation Age of Onset High Blood Pressure Mother Comments: alive age 98 Rheum arthritis Father Heart disease Father Comments: age 59 Other Sister Comments: adrenal issues Skin cancer Sister COPD Brother Comments: age 65, smoker Lung cancer Brother 70 Prostate cancer Brother 60 No Known Problems Brother No Known Problems Brother Breast cancer Paternal Cousin 35 Family Status - Relation Status Age at Mother Alive Father 58 Sister Alive Sister Alive Brother Brother Alive Brother Alive Brother Alive Paternal Cousin Alive Level of Service:38513 NE OFFICE/OUTPATIENT ESTABLISHED MOD MDM 30 MIN Reason for Visit and Comments: Sinus Problem [99] [facility] Progress Noteon 07-02-2024 Progress Note Will treat for acute exacerbation. No acute distress. 92% 2L NC, Start prednisone taper. Follow up with pulmonology. [facility] Progress Note Will treat with antibiotics for bacterial sinusitis due to severity of symptoms and length of illness >7 days, not improving. [facility] Progress Note 07/02/2024 Dayana Briggs (: 1950) is a 74 y.o. female , Established patient, here for evaluation of the following chief complaint(s): Sinus Problem ASSESSMENT/PLAN: 1. Acute non-recurrent frontal sinusitis Assessment & Plan: Will treat with antibiotics for bacterial sinusitis due to severity of symptoms and length of illness >7 days, not improving. 2. COPD with acute exacerbation (HCC) Assessment & Plan: Will treat for acute exacerbation. No acute distress. 92% 2L NC, Start prednisone taper. Follow up with pulmonology. Orders: - predniSONE (Deltasone) 10 MG tablet; Take 20 mg (2 tabs) once daily for 7 days, then 10 mg (1 tab) once daily for 7 days, then 5 mg (0.5 tab) daily for 14 days., Normal - doxycycline (Vibramycin) 100 MG capsule; Take 1 capsule (100 mg) by mouth 2 times daily for 10 days. Take with at least 8 ounces (large glass) of water, do not lie down for 30 minutes after, Starting 07/02/2024, Until 07/12/2024, Normal Follow up if symptoms worsen or fail to improve. SUBJECTIVE/OBJECTIVE: HPI - Dayana Briggs (: 1950) is a 74 y.o. female , Established patient, here for the evaluation of the following chief complaint(s): Sinus Problem Reports having a sinus/cold for a week. Sinus pressure and congestion. Using nasal sprays and not helping much. No fever or chills. Initially had a temp of 99, reports the pressure in her face and forehead is worsening. Has severe copd - Reports her breathing is not as bad as it usually is. However worries that her congestion is going into her lungs and thinks that she may be a little shorter of breath than normal Last prednisone was a couple weeks ago. Has not taking her trelogy x 3 days- recommend restarting. Prior to Admission medications Medication Sig Start Date End Date Taking? Authorizing Provider albuterol (2.5 MG/3ML) 0.083% nebulizer solution Take 3 mL (2.5 mg) by nebulization every 4 hours as needed for wheezing or shortness of breath. 09/06/22 05/19/25 Yes Aubrey Dyer MD albuterol 108 (90 Base) MCG/ACT inhaler Inhale 2 puffs every 4 hours as needed for shortness of breath. 05/28/24 Yes ROSALIND Holloway CNP amLODIPine (Norvasc) 5 MG tablet Take 1 tablet (5 mg) by mouth daily. 12/27/23 Yes Prosper Roman DO atorvastatin (Lipitor) 10 MG tablet Take 1 tablet (10 mg) by mouth daily. 05/19/24 05/14/25 Yes Jazmin Moy PA-C cholecalciferol (Vitamin D-3) 25 MCG (1000 UT) capsule Take 1 capsule by mouth in the morning and 1 capsule before bedtime. 01/20/19 Yes Historical Provider, Jntuawptvzb-Gzewvygnk-H ilant (Trelegy Ellipta) 200-62.5-25 MCG/ACT aerosol powder Inhale 1 puff daily. 01/30/24 Yes ROSALIND Holloway CNP Oqmagvukkmf-Zehayrxbx-F ilant (Trelegy Ellipta) 200-62.5-25 MCG/ACT aerosol powder Inhale 1 puff daily. Rinse mouth with water after use to reduce aftertaste and incidence of candidiasis. Do not swallow. 05/28/24 07/27/24 Yes ROSALIND Holloway CNP ipratropium (Atrovent) 0.02 % nebulizer solution INHALE THE CONTENTS OF 1 VIAL VIA NEBULIZER 2 TIMES DAILY 02/08/22 Yes Historical Provider, ipratropium-albuterol (Duo-Neb) 0.5-2.5 mg/3 mL nebulizer solution Take 3 mL by nebulization 4 times daily as needed for wheezing. 12/06/22 Yes Aubrey Dyer MD levothyroxine (Synthroid, Levoxyl) 100 MCG tablet Take 1 tablet (100 mcg) by mouth daily for 360 doses. 05/19/24 05/14/25 Yes Jazmin Moy PA-C omeprazole (PriLOSEC) [address] capsule Take 1 capsule (20 mg) by mouth daily. 02/20/24 Yes Prosper Roman DO Potassium Gluconate 2.5 MEQ tablet Take by mouth. 04/27/20 Yes Historical Provider, sodium chloride 7 % nebulizer solution nebulizer solution Take 4 mL by nebulization 2 times daily as needed (chest congestion). 03/24/24 Yes ROSALIND Holloway CNP spironolactone (Aldactone) 25 MG tablet Take 1 tablet (25 mg) by mouth daily. 06/30/24 Yes Prosper Roman, tezepelumab-ekko (Tezspire) 210 MG/1.91ML solution auto-injector autoinjector pen Inject 1 Pen (210 mg) under the skin every 28 (twenty-eight) days. 06/12/24 Yes ROSALIND Holloway CNP zafirlukast (Accolate) 20 MG tablet Take 20 mg by mouth in the morning and 20 mg before bedtime. 10/30/14 Yes Historical Provider, nystatin (Mycostatin) 819133 UNIT/ML suspension Take 5 mL (500,000 Units) by mouth 4 times daily for 10 days. Swish in mouth and spit out 06/18/24 06/28/24 ROSALIND Holloway CNP predniSONE (Deltasone) 10 MG tablet Take 20 mg (2 tabs) once daily for 7 days, then 10 mg (1 tab) once daily for 7 days, then 5 mg (0.5 tab) daily for 14 days. Patient not taking: Reported on 07/02/2024 06/05/24 ROSALIND Holloway CNP spironolactone (Aldactone) 25 MG tablet Take 1 tablet (25 mg) by mouth daily. 05/19/24 06/30/24 Jazmin Moy PA-C Review of Systems Constitutional: Negative for activity change, appetite change, chills, diaphoresis, fatigue and fever. HENT: Positive for congestion, postnasal drip and sinus (more content not included)... [facility] Progress Note Patient was identifi ed by name and Date of . [facility] 36on 07-01-2024 36 S: Patient spoke wit h [facility] nurse regarding sinus infection B: Onset of symptoms/concern 4 days A: Thinks she has sinus infection, cold for 3-4 days, now feels like it is in her head, didn't check temp but thinks she may have had fever, grandchildren had flu, exposed. States this doesn't feel like the flu. Denies: earpain, sore pain, R: Patient POD scheduled tomorrow 07/02 at 11:00a with R. Bridenthal at [facility]. Advised to wear mask to appointment due to symptoms and flu exposure. No appointments in PCP office. Message from [facility] ENT also reviewed. Patient understands care advice. No further needs at this time. Patient instructed to call back with new or worsening symptoms. Reason for Disposition Patient wants to be seen Protocols used: Sinus Pain or Ilzxeioyyd-SMZFX-CX [facility] 3606-30-2024 36 Rx loaded [place] [address] Medication name: spironolactone (Aldactone) 25 MG tablet Medication dosage: 25 mg (Miligrams Monthly quantity needed: 30 How many day supply requestin days Medication route: oral (PO) Medication administration time(s): daily If taking medication PRN, reason for taking medication: N/A If this is a controlled substance do you receive this or any other controlled medication from any other doctor or facility: No Ordering provider: Jazmin Moy PA-C Date of last office visit: 05/19/2024 Date of next office visit: 08/20/2024 Date of last refill: (see medication tab): 05/19/2024 Updated/Validated preferred pharmacy: Yes Patient instructed to contact the pharmacy prior to picking up the medication: Yes [facility] 06-26-2024 36 Referral ordered [place] [id number] This needs to go to Dr Roman. [place] [address] Name of caller: Lacy Briggs Contact phone number: [phone] Relationship to Patient: patient Provider: Dr. Roman Practice: [facility] Chief Complaint/Reason for Call: patient stated she would like a referral to evaluate her for laryngeal abnormalities, including vocal cord dysfunction. Please advise. Thank you. Best time of day caller can be reached: Any Patient advised that office/PCP has 24-48 business hours to return their call: Yes [facility] 06-23-2024 36 error [facility] 06-18-2024 29 Addended by: JOYCE BROWN on: 06/18/2024 01:59 PM Modules accepted: Orders [facility] 06-18-2024 36 Spoke with patient regarding good rx for zafirkulast and she is not interested in taking it. She states it does not work. Also, she does not want to take injectables. She will see florist's decorator in July. Regarding different meds. [place] [address] Spoke with patient a nd she is not interested in [place] [address] Rx sent [place] [address] Please let patient k now that I was able to find her cecil on [facility] for about $31/month, which is much less than she would be charged with insurance. I recommend she get the medication that way. [place] [address] Pt called office 06/18/2024 requesting an Rx for Thrush. Pt Pharmacy is [place], [place]. Thank You Jaja العراقيald STEPH [facility] 36on 06-17-2024 36 I was able to get PA approval for Tezspire but patient declined this medication stating she is not interested in any injectable medication at this time. The medication does have a high copay but she would likely qualify for financial sales assistant that would bring cost to $0. I explained this to patient and asked her to let us know if she does change mind and would like to pursue this medication. [facility] CT CHEST WO IV CONTRASTon CT CHEST WO IV CONTRAST Patient Name: DAYANA ORELLANA : 1950 Exam Date/Time: 06/11/2024 15:43 Procedure: CT CHEST WO IV CONTRAST Ordering Provider: BROWN JULIE Reason For Exam: please perform HRCT, to evaluate for bronchiectasis CLINICAL HISTORY: please perform HRCT, to evaluate for bronchiectasis COMPARISON: 06/05/2023 and 05/13/2021 Technique: Axial CT images were obtained of the chest. Images were reformatted in coronal and sagittal projections. Dose reduction was employed with automated exposure control. Intravenous contrast: None FINDINGS: Lungs: Moderate to severe pulmonary emphysema. 1.2 x 0.7 cm right upper lobe nodule has decreased in size from 2021. Mild focal right upper lobe bronchiectasis (3:77). No regional groundglass opacity, peripheral septal thickening, or honeycombing. No focal areas of air trapping seen on expiratory imaging. Pleura: No pleural thickening or effusion Heart/Great vessels: Normal heart size with no pericardial effusion. There is moderate coronary artery calcification. The aorta and pulmonary arteries are normal in caliber. Mediastinum/Paty: No enlarged mediastinal, hilar, or axillary lymph nodes. Small hiatal hernia. Visualized Upper Abdomen: 2 cm fluid attenuation cyst in the right kidney. Cholecystectomy. Chest wall/Lower neck: No masses or lymphadenopathy. Bones: No suspicious osseous lesions. Severe right glenohumeral osteoarthrosis. IMPRESSION: Moderate to severe pulmonary emphysema. Report Dictated on Electronically Signed By: Jazmin Goldberg DR Electronically Signed Date/Time: 06/13/2024 9:06 AM EST Routine high res protocol per pt +asthma, copd, emphysema No complaints per pt [facility] 06-12-2024 29 Addended by: JOYCE BROWN on: 06/12/2024 10:43 AM Modules accepted: Orders [facility] 06-12-2024 36 Spoke with patient. She would be agreeable to try a different biologic if not too expensive. Abs Eos 200 on 09/05/21. Low confidence level of accuracy of more recent CBC/Eos level due to very frequent steroid use. Patient may benefit from addition of Tezspire or other biologic to assist with Eos. Will try to order this and get approved. Will also reach out to specialty pharmacy. She is also concerned about the cost of zafirkulast, which is nearly $200/month. I looked on [facility], and found it for as low as $31 per month. Recommend this route. [facility] 06-10-2024 36 's (Dr. Davis's fellow) returned call. States Dr. Davis is well aware of patient's symptoms. He feels this is related to poorly controlled asthma component. She was given sample of dupixent in the office, which she reported side effect to. Apparently, she was also offered Rx for tezspire biologic, but she declined. Will call patient to discuss. [facility] 3606-06-[address] Davis's fellow today. Reviewed chart with her. Patient had previously tolerated a different IVIG better, but due to insurance coverage, this was changed and patient has less tolerance to the current IVIG. Confirmed she is getting IV solumedrol prior to the infusions to help with side effects but not helping much. Patient prescribed 9 courses of prednisone in the last 6 months. Also looks like patient had reaction to dupixent. Was offered tezspire biologic instead per immunology notes, but patient declined, unclear why. I also told her patient was offered BLVR work up but declined. I asked if they have any other recommendations to optimize her symptoms. She will discuss the case with Dr. Davis and plan to return the call on Sunday. [facility] 3606-05-2024 36 Yes I ordered the CT at her appt on 05/28 as requested. Looks like it is already scheduled for 06/11. [place] [address] Informed patient abo ut tapered prednisone and awaiting call from Dr Davis. Patient inquirng about ct scan. She says she has approval from insurance. Did you order? Please advise. [place] [address] See other TE [place] [address] Will send in prolong ed taper of prednisone. Also, I had tried to get in contact with Dr. Davis's office a couple of times. Most recently, this morning, he was in with a patient and office staff told me he will call me back. Awaiting call. [facility] 36 Patient called today . She said she needs more prednisone. As soon as she finished last rx her breathing got worse. She uses [facility] in [place]. Also, she would like to know if you reviewed the notes from Dr Davis [facility] 3605-28-2024 36 I called again this morning, I had to [facility] requesting info again [place] [address] Seeing patient today . Checking in to see if any records have been received? I didn't see anything in media. Thanks! [facility] 3705-28-2024 37 YOUR APPOINTMENT TOEnder MACEDO WAS WITH THE [facility], COPD CLINIC, PULMONARY AND SLEEP MEDICINE OFFICE. PLEASE CALL OUR OFFICE AT [phone] for our [facility] location or [phone] for our [place] location, IF YOU HAVE NOT RECEIVED YOUR [...] to make improvements. COVID-19 VACCINATION INFORMATION: . [phone] [employer]/CORONAVIRUS/ VACCINE [facility] Central Scheduling [phone] [facility] Sleep Scheduling [phone] [facility] Office Visiton 05-28-2024 Follow-up visit [id number] Lacy Briggs 1950 F Date Provider Department Center 05/28/2024 [id number] BROWN [facility] None Family History Problem Relation Age of Onset High Blood Pressure Mother Comments: alive age 98 Rheum arthritis Father Heart disease Father Comments: age 59 Other Sister Comments: adrenal issues Skin cancer Sister COPD Brother Comments: age 65, smoker Lung cancer Brother 70 Prostate cancer Brother 60 No Known Problems Brother No Known Problems Brother Breast cancer Paternal Cousin 35 Family Status - Relation Status Age at Mother Alive Father 58 Sister Alive Sister Alive Brother Brother Alive Brother Alive Brother Alive Paternal Cousin Alive Level of Service:73917 NE OFFICE/OUTPATIENT ESTABLISHED MOD MDM 30 MIN Reason for Visit and Comments: Follow-up [128578] COPD [313] - EMPHYSEMA-O2(JONATHAN) Wheezing [756745] [facility] Progress Noteon 05-28-2024 Progress Note [facility] Pulmonary Medicine [address] [place] [address] Date of Service: 05/28/2024 Visit type: An Established patient Chief Complaint/Reason for Referral: Follow-up, COPD (EMPHYSEMA-O2(JONATHAN)) , and Wheezing SUBJECTIVE History of Present Illness: Dayana Artis Briggs ( 1950) is a 74 y.o. 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 Last seen by pulmonary 03/24/24. Patient has recurrent issue with poorly controlled asthma/COPD. She has been treated with prednisone on 9 separate occasions in the last 6 months, by multiple providers. She has also been treated with multiple rounds of antibiotics in recent months. Doxycycline 03/2024, zpak 04/2024, and levaquin 04/2024. Patient reports she generally feels better (but not well) while on prednisone, then symptoms return after a week or so of being off. Symptoms also seem to be exacerbated by getting IVIG infusions. She sees immunology in [facility]. She takes Trelegy as prescribed, but does not feel it really helps her. She also uses nebs without much relief. She declined further evaluation to pursue BLVR. She also reports she was treated with dupixent by her florist's decorator but she had a bad reaction to it and had to stop. She has also tried zafirlukast, which is expensive and not covered by insurance, but she does not find clinical benefit with use. ACT: CAT: MMRC Dyspnea Scale: Grade Description of Breathlessness [...] Diagnosis Date Asthma 2006 Breast cancer screening 02/2024 COPD (chronic obstructive pulmonary disease) ([facility]) 2014 Home O2 since 2015 Ex-smoker 2009 GERD (gastroesophageal reflux disease) H/O colonoscopy 2018 due 2028 History of idiopathic thrombocytopenic purpura 2006 resolved History of shingles 2020 left CN V Hypertension 2004 Hypothyroidism IBS (irritable bowel syndrome) 2001 per [facility] Immunoglobulin deficiency (HCC) 2008 monthly IVIG infusion per Dr. Davis, [facility], [place] Nodule of upper lobe of right lung no change per 2023 LDCT Osteoporosis [address] Field Renal stones SURGICAL HISTORY: Past Surgical History: Procedure Laterality Date APPENDECTOMY BREAST BIOPSY Right 2010 benign BREAST CYST ASPIRATION Left 2008 benign CATARACT EXTRACTION W/ INTRAOCULAR LENS IMPLANT Bilateral CHOLECYSTECTOMY 2013 COLONOSCOPY 10/2018 Dr. Argueta- due 2028 COLONOSCOPY 2008 Turowski DENTAL SURGERY dentures HEMORRHOID SURGERY 1995 MENISCECTOMY Left 2016 Damico PARTIAL HYSTERECTOMY 1994 DUB- Ovaries intact SKIN BIOPSY from left arm, under right breast, and forehead. All negative for CA TONSILLECTOMY (HISTORICAL) ALLERGIES: Allergies Allergen Reactions Lisinopril Shortness of breath Cough and wheezing Other Other Envirmental allergies trees pollen rag weed, douglass Ampicillin Other reaction(s): Other, stomach issues Aspirin Hives Other reaction(s): U Other reaction(s): U Codeine Other reaction(s): GI Upset sleepy, dizzy Erythromycin unknown reaction Levaquin [Levofloxacin] Other Joint pain (ankles) Misc. Sulfonamide Containing Compounds Penicillins Other reaction(s): Other (See Comments) Upset [...] of breath., Disp: 75 mL, Rfl: 2 amLODIPine (Norvasc) 5 MG tablet, Take 1 tablet (5 mg) by mouth daily., Disp: 90 tablet, Rfl: 1 atorvastatin (Lipitor) 10 MG tablet, Take 1 tablet (10 mg) by mouth daily., Disp: 90 tablet, Rfl: 3 cholecalciferol (Vitamin D-3) 25 MCG (1000 UT) capsule, Take 1 capsule by mouth in the morning and 1 capsule before bedtime., Disp: , Rfl: Nkcnqngatdf-Ztbynstpd-C ilant (Trelegy Ellipta) 200-62.5-25 MCG/AC (more content not included)... [facility] 36on 05-19-2024 36 Recent Visits Date Type Provider Dept 02/20/24 Office Visit Prosper Roman, DO [facility] 10/24/23 Office Visit Jazmin Moy PA-C [facility] 09/19/23 Office Visit Jazmin Moy PA-C [facility] 08/21/23 Office Visit Prosper Roman, DO [facility] 05/21/23 Office Visit Jazmin Moy PA-C [facility] Showing recent visits within past 365 days and meeting all other requirements Today's Visits Date Type Provider Dept 05/19/24 Appointment Jazmin Moy PA-C [facility] Showing today's visits and meeting all other requirements Future Appointments No visits were found meeting these conditions. Showing future appointments within next 90 days and meeting all other requirements Requested Prescriptions Pending Prescriptions Disp Refills spironolactone (Aldactone) 25 MG tablet [Pharmacy Med Name: SPIRONOLACTONE 25 MG TABLET] 90 tablet 1 Sig: TAKE 1 TABLET BY MOUTH EVERY DAY Provider: Prosper Roman DO Verified pharmacy: yes Verified day(s) supplied: yes Verified refill(s) needed (previous prescription showing no refills in chart): Yes Have you received any controlled medications from any other provider? N/A Overdue for visit: No If yes - patient scheduled? N/A Most recent labs completed in chart? N/A None [facility] 36 S: Patient spoke wit h [facility] nurse regarding sinus drainage cb [phone] Provider: Dr. Roman Practice Name: [facility] B: Onset of symptoms/concern 5 days A: Patient states she thinks she has a sinus infection. She complains of congestion in face, chest and ears for the last 5 days. History of COPD. States she had a dose of levaquin 250mg and prednisone leftover that she took. Is wheezing but states she always wheezes from her COPD. Denies fever today, difficulty breathing, chest pain. R: Appointment scheduled for patient for today at 2:40 with Jazmin Moy. Patient understands care advice. No further needs at this time. Patient instructed to call back with new or worsening symptoms. Reason for Disposition Earache Protocols used: Sinus Pain or Gtikvbdpke-QLZXF-CY [facility] Office Visiton 05-19-2024 Follow-up visit [id number] Lacy Briggs Artis 1950 F Date Provider Department Center 05/19/2024 [id number] MOY [facility] Family History Problem Relation Age of Onset High Blood Pressure Mother Comments: alive age 98 Rheum arthritis Father Heart disease Father Comments: age 59 Other Sister Comments: adrenal issues Skin cancer Sister COPD Brother Comments: age 65, smoker Lung cancer Brother 70 Prostate cancer Brother 60 No Known Problems Brother No Known Problems Brother Breast cancer Paternal Cousin 35 Family Status - Relation Status Age at Mother Alive Father 58 Sister Alive Sister Alive Brother Brother Alive Brother Alive Brother Alive Paternal Cousin Alive Level of Service:76738 NE OFFICE/OUTPATIENT ESTABLISHED MOD MDM 30 MIN Reason for Visit and Comments: Nasal Congestion [302672] - For about 5 days [facility] Progress Noteon 05-19-2024 Progress Note - Chronic stable continue on Lipitor 10 mg nightly. [facility] Progress Note - Chronic stable continue on levothyroxine 100 mcg daily [facility] Progress Note - Chronic stable continue on spironolactone 25 mg daily. [facility] Progress Note [facility] - [address] [facility] [address] Dept: [phone] Dept Loc: [phone] Visit type: Established Patient Reason for Visit: Nasal Congestion (For about 5 days) Assessment and Plan 1. COPD exacerbation (HCC) Comments: Acute exacerbation of chronic COPD emphysema. Orders: - predniSONE (Deltasone) 20 MG tablet; Take 3 tabs (60mg) daily for 5 days, then take 2 tabs (40mg) daily for 2 days, then take 1 tab (20mg) daily for 2 days., Normal - Comprehensive metabolic panel - CBC auto differential - levoFLOXacin (Levaquin) 500 MG tablet; Take 1 tablet (500 mg) by mouth daily for 10 days., Starting 05/19/2024, Until Lana 05/29/2024, Normal 2. Primary hypertension Assessment & Plan: - Chronic stable continue on spironolactone 25 mg daily. Orders: - spironolactone (Aldactone) 25 MG tablet; Take 1 tablet (25 mg) by mouth daily., Starting 05/19/2024, Normal 3. Hypothyroidism, unspecified type Comments: Stable, continue Synthroid Assessment & Plan: - Chronic stable continue on levothyroxine 100 mcg daily Orders: - levothyroxine (Synthroid, Levoxyl) 100 MCG tablet; Take 1 tablet (100 mcg) by mouth daily for 360 doses., Starting 05/19/2024, Until Lana 05/14/2025, Normal 4. Mixed hyperlipidemia Comments: Stable, continue Lipitor Assessment & Plan: - Chronic stable continue on Lipitor 10 mg nightly. Orders: - atorvastatin (Lipitor) 10 MG tablet; Take 1 tablet (10 mg) by mouth daily., Starting 05/19/2024, Until Lana 05/14/2025, Normal No follow-ups on file. Subjective HPI this is a 74-year-old female well-known to the office with a history of COPD emphysema chronic hypoxic respiratory failure on oxygen GERD, hypertension, IgG deficiency and a former tobacco abuser follows up with pulmonology contacted the call center today for immediate same-day appointment for concerns that she fighting a cold. Patient reports that she thinks she has a sinus infection. Reports that she has a history of COPD had a dose of Levaquin and prednisone left over that she took but is not any better. Given a zpack a few weeks ago and really never helped given prednisone. Had blood work at [facility] a few months ago, but patient is agreeable to get blood work today states she is not sure if she 100% had blood work done several months ago she thinks they did but there is been no documented kidney function or liver enzymes in the past year she is agreeable to get it checked today she denies any abdominal pain her primary concern is her ongoing issues with COPD and cough congestion wheezing. She is continuing to use her Trelegy with some benefit in the past Review of Systems Constitutional: Negative for chills and fever. HENT: Positive for congestion. Negative for sore throat and trouble swallowing. Respiratory: Positive for cough, chest tightness, shortness of breath and wheezing. Cardiovascular: Negative [...] GI Upset sleepy, dizzy Erythromycin unknown reaction Levaquin [Levofloxacin] Other Joint pain (ankles) Misc. Sulfonamide Containing Compounds Penicillins Other reaction(s): Other (See Comments) Upset stomach Other reaction(s): Other Other reaction(s): U Other reaction(s): Other Other reaction(s): Other, stomach issues Other reaction(s): stomach issues, U unknown reaction Sulfa Antibiotics Cephalexin Hives and Rash Other reaction(s): Hives Other reaction(s): U Other reaction(s): Hives Other reaction(s): Hives Other reaction(s): Hives, U Current Outpatient Medications Medication Sig Dispense Refill albuterol (2.5 MG/3ML) 0.083% nebulizer solution Take 3 mL (2.5 mg) by nebulization every 4 hours as needed for wheezing or shortness of breath. 75 mL 2 albuterol 108 (90 Base) MCG/ACT inhaler Inhale 2 puffs every 4 hours as needed for shortness of breath. 1 each 2 amLODIPine (Norvasc) 5 MG tablet Take 1 tablet (5 mg) by mouth daily. 90 tablet 1 cholecalciferol (Vitamin D-3) 25 MCG (1000 UT) capsule Take 1 capsule by mouth in the morning and 1 capsule before bedtime. Gcvuvexodox-Qostezbil-E ilant (Trelegy Ellipta) 200-62.5-25 MCG/ACT aerosol powder Inhale 1 puff daily. 1 each 5 Wofbuhgirwa-Xqvpopcnk-Z ilant (Trelegy Ellipta) 200-62.5-25 MCG/ACT aerosol powder Inhale 1 puff daily. Rinse mouth with water (more content not included)... [facility] [id number] 36 Letter has been faxe d to the fax # listed below. [facility] 36 Letter on Jessie's desk to sign. [facility] 36 Can you please elijah t with this letter for excused from jury duty. It needs to state Lifelong excused. Per Dr. Roman Thank you [address] 05-13-2024 36 Name of caller: Yadira Contact phone number: [phone] Relationship to Patient: patient Provider: Dr Roman Practice: [facility] Chief Complaint/Reason for Call: Pt is requesting a letter to excuse her from jury duty. Badge ID # [id number] Please fax to [phone]. Best time of day caller can be reached: any Patient advised that office/PCP has 24-48 business hours to return their call: No [address] 05-08-2024 36 Canceled appt [facility] 36 Name of Caller: Lacy torres Contact Phone Number: [phone] Reason for Appointment: pt calling to cancel her appt today due to snow. Please call to re-schedule [facility] Med[facility] Refills need, if any: Medication Name: [address] 05-02-2024 36 Name of Caller: Lacy torres Contact Reason for Appointment: Pt states she would like to r/s her past cancelled appt. Please advise. Office Name: Pulm [place] [id number] 36 S: Patient spoke samir h [facility] nurse regarding cough B: Onset of symptoms/concern started 3 days ago, history COPD A: Patient states she has a cold, cough and nose is running. This started 3 days ago. Patient states she does not want it to get worse because she has COPD. Patient states if she walks her pulse ox drops but if she is sitting it is 96-98%. Shortness of breath is slightly worse than it normally is. Denies any shortness of breath at rest or any chest pain. Denies any fevers and has not tested for COVID. Denies any known COVID contacts. R: Appointment scheduled for Sunday at 9am with Jazmin. Insurance verified. Patient given care advice per protocol. Patient understands care advice. No further needs at this time. Patient instructed to call back with new or worsening symptoms. Reason for Disposition [1] MILD difficulty breathing (e.g., minimal/no SOB at rest, SOB with walking, pulse <100) AND [2] still present when not coughing Protocols used: Cough - Acute [id number] 04-11-2024 36 S: Patient spoke wit h [facility] nurse regarding COPD flare up B: Onset of symptoms/concern 5 days A: Patient complaining of wheezing, difficulty breathing for the past several days. Denies fever. Patient states symptoms are chronic and flare up occasionally. Patient has taken Prednisone 40 MG for the past 3 days she had on hand but ran out. Patient states she knows what she needs when this happens. Patient requesting refill of Prednisone and an antibiotic sent to pharmacy. Pharmacy and allergies verified and reviewed with patient. Patient speaking in complete sentences. No acute distress. R: Dr. Roman messaged advised Prednisone and doxycycline prescribed she should reach out to her road design draftsperson for any guidance in a few days if no better. Patient informed and verbalized understanding. Reason for Disposition Prescription refill request for ESSENTIAL medicine (i.e., likelihood of harm to patient if not taken) and triager unable to refill per department policy Protocols used: Medication Refill and Renewal [id number] 03-25-2024 36 This RN called and L VM on [facility] asking for most recent OV note to be faxed to office. Provided phone number and fax number. [place] [address] [facility] office: [phone] Office does not open until 10 on Tuesdays. Will call back. [address] 03-24-2024 36 FYI NM LUNG VENTILAT ION PERFUSION per cx note on cx appt 04.02.24 pt doesn't want test done//03.24.24 KGK 1st attempt//mychart message//12.23.23 KGK [place] [address] Davis in [facility] for IVIG infusions. Please obtain most recent visit notes and notify me when received. Thanks! [facility] 36 PER KALIE QUESADA [facility] 37on 03-24-2024 37 YOUR APPOINTMENT TOEnder MACEDO WAS WITH THE [facility] L[facility]G [facility]ODULE [facility], COPD CLINIC, PULMONARY AND SLEEP MEDICINE OFFICE. PLEASE CALL OUR OFFICE AT [phone] for our [place] office location or [phone] for our [place] location, IF YOU HAVE NOT RECEIVED YOUR [...] to make improvements. COVID-19 VACCINATION INFORMATION: PH. [phone] HEALTH.ORG/CORONAVIRUS/ VACCINE [facility] Central Scheduling [phone] [facility] Sleep Scheduling [phone] [facility] Office Visiton 03-24-2024 Follow-up visit [id number] Lacy Briggs 1950 F Date Provider Department Center 03/24/2024 [id number] CRANE SHMGMIT PULM None Family History Problem Relation Age of Onset High Blood Pressure Mother Comments: alive age 98 Rheum arthritis Father Heart disease Father Comments: age 59 Other Sister Comments: adrenal issues Skin cancer Sister COPD Brother Comments: age 65, smoker Lung cancer Brother 70 Prostate cancer Brother 60 No Known Problems Brother No Known Problems Brother Breast cancer Paternal Cousin 35 Family Status - Relation Status Age at Mother Alive Father 58 Sister Alive Sister Alive Brother Brother Alive Brother Alive Brother Alive Paternal Cousin Alive Level of Service:13034 NE OFFICE/OUTPATIENT ESTABLISHED LOW MDM 20 MIN Reason for Visit and Comments: Hospital Follow-up [832] - EMPHYSEMA [facility] Progress Noteon 03-24-2024 Progress Note - [facility] Pulmonary Medicine [address] [place] [address] Date of Service: 03/24/2024 Visit type: An Established patient Chief Complaint/Reason for Referral: Hospital Follow-up (EMPHYSEMA) SUBJECTIVE History of Present Illness: Dayana Briggs ( 1950) is a 73 y.o. 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 Patient was patiently evaluated in the emergency room at [facility], states her breathing seems to be progressively getting worse. States she has typically had increased shortness of breath for about 1 week after IVIG infusions, usually relieved with use of prednisone. Now this shortness of breath is lasting 2+ weeks. Alternating between use of Trelegy 200 and 100, states that she does not find much difference in the dosing. Having a lot of chest congestion, states she is rattling all the time. Having difficulty bringing up phlegm. Recently prescribed Levaquin. Also taking 50 mg prednisone daily for the last 2 days, which does help some. CAT: /40 MMRC Dyspnea Scale: Grade Description of Breathlessness [...] Diagnosis Date Asthma 2006 Breast cancer screening 02/2024 COPD (chronic obstructive pulmonary disease) (HCC) 2014 Home O2 since 2015 Ex-smoker 2009 GERD (gastroesophageal reflux disease) H/O colonoscopy 2018 due 2028 History of idiopathic thrombocytopenic purpura 2006 resolved History of shingles 2020 left CN V Hypertension 2004 Hypothyroidism IBS (irritable bowel syndrome) 2001 per Eladia Immunoglobulin deficiency (HCC) 2008 [facility] [place] Nodule of upper lobe of right lung no change per 2023 LDCT Osteoporosis [address] Field Renal stones SURGICAL HISTORY: Past Surgical History: Procedure Laterality Date APPENDECTOMY BREAST BIOPSY Right 2010 benign BREAST CYST ASPIRATION Left 2008 benign CATARACT EXTRACTION W/ INTRAOCULAR LENS IMPLANT Bilateral CHOLECYSTECTOMY 2013 COLONOSCOPY 10/2018 Dr. Argueta- due 2028 COLONOSCOPY 2008 Turowski DENTAL SURGERY dentures HEMORRHOID SURGERY 1995 MENISCECTOMY Left 2016 Damico PARTIAL HYSTERECTOMY 1994 DUB- Ovaries intact SKIN BIOPSY from left arm, under right breast, and forehead. All negative for CA TONSILLECTOMY (HISTORICAL) ALLERGIES: Allergies Allergen Reactions Lisinopril Shortness of breath Cough and wheezing Other Other Envirmental allergies trees pollen rag weed, douglass Ampicillin Other reaction(s): Other, stomach issues Aspirin Hives Other reaction(s): U Other reaction(s): U Codeine Other reaction(s): GI Upset sleepy, dizzy Erythromycin unknown reaction Levaquin [Levofloxacin] Other Joint pain (ankles) Misc. Sulfonamide Containing Compounds Penicillins Other reaction(s): Other (See Comments) Upset [...] shortness of breath., Disp: 1 each, Rfl: 2 amLODIPine (Norvasc) 5 MG tablet, Take 1 tablet (5 mg) by mouth daily., Disp: 90 tablet, Rfl: 1 atorvastatin (Lipitor) 10 MG tablet, Take 1 tablet (10 mg) by mouth daily., Disp: 90 tablet, Rfl: 3 cholecalciferol (Vitamin D-3) 25 MCG (1000 UT) capsule, Take 1 capsule by mouth in the morning and 1 capsule before bedtime., Disp: , Rfl: fluconazole (Diflucan) 150 MG tablet, Take 1 tablet (150 mg) by mouth daily., Disp: 7 tablet, Rfl: 1 Drwgnrmljka-Hmdmeuxwp-J ilant (Trelegy Ellipta) 200-62.5-25 MCG/ACT aerosol powder , Inhale 1 puff daily., Disp: 1 each, Rfl: 5 Gujburhpsbg-Mikroltoj-K ilant (Trelegy Ellipta) 200-62.5-25 MCG/ACT (more content not included)... [facility] 36on 03-18-2024 36 Your patient has bee n scheduled for their NM lung ventilation perfusion aerosol on 04/02/24 at [place]. If testing requires an insurance authorization, the authorization must be in place 48 hours prior to the scheduled test or testing will be cancelled. Thank you, Central Scheduling [facility] 12 Lead EKGon 03-09-2024 12 Lead EKG [facility] Cardiovascular Services [address] [place] [address] 12 Lead EKG 03/09/24 1811 MR#: [id number] Acct: [id number] Name: DAYANA BRIGGS Rep #: [id number] : 1950 73 From: Yemi Mercedes MD Attending Dr: Status: DEP ER Ordering Dr: Annamarie Lira DO Date: 03/09/24 Location: ED Sex: F C Admitted: Test Reason : SOB Blood Pressure : */* mmHG Vent. Rate : 119 BPM Atrial Rate : 119 BPM P-R Int : 128 ms QRS Dur : 74 ms QT Int : 302 ms P-R-T Axes : 74 23 51 degrees QTcB Int : 424 ms Sinus tachycardia Otherwise normal ECG Confirmed by YEMI MERCEDES MD ([id number]), graphics editor HOLLY THACKER ([id number]) on 03/10/2024 9:53:59 AM Referred By: HANNAH Confirmed By: YEMI MERCEDES MD 03/10/24 0954 Date Yemi Mercedes MD CC: Dr. Annamarie Lira, DO; Dr. Prosper Roman DO Signed [facility] Basic Metabolic Profile (BMP )on 03-09-2024 BUN/CRE 17.0 RATIO Normal 10-20 [facility] Comment on above: Order Comment: 'TROP ' Serial specimen #1, #2 or #3: 1 Performed By: #### L 100.0100, L500.2500, L501.4020 #### [facility] [address] [place], [address] CA,Total 9.6 mg/dL Normal 8.5-10.1 [facility] Comment on above: Order Comment: 'TROP ' Serial specimen #1, #2 or #3: 1 Performed By: #### L 100.0100, L500.2500, L501.4020 #### [facility] [address] [place], [address] Chloride [Moles/Vol] 103 mmol/L Normal 98-107 [facility] Comment on above: Order Comment: 'TROP ' Serial specimen #1, #2 or #3: 1 Performed By: #### L 100.0100, L500.2500, L501.4020 #### [facility] [address] [place], [address] CO2 [Moles/Vol] 28.0 mmol/L Normal 21.0-32.0 [facility] Comment on above: Order Comment: 'TROP ' Serial specimen #1, #2 or #3: 1 Performed By: #### L 100.0100, L500.2500, L501.4020 #### [facility] [address] [place], [address] Creatinine [Mass/Vol] 1.06 mg/dL High 0.55-1.02 [facility] Comment on above: Order Comment: 'TROP ' Serial specimen #1, #2 or #3: 1 Result Comment: The validity of the calculated GFR GFRAA in patients over 70 years has not been determined. Clinical correlation is essential. Performed By: #### L 100.0100, L500.2500, L501.4020 #### [facility] [address] [place], [address] EST GFR - AA 66 mL/min Normal >60 [facility] Comment on above: Order Comment: 'TROP ' Serial specimen #1, #2 or #3: 1 Result Comment: Afri can Tristanian GFR Calc Performed By: #### L 100.0100, L500.2500, L501.4020 #### [facility] [address] [place], [address] GAP 5 Normal 5-15 [facility] Comment on above: Order Comment: 'TROP ' Serial specimen #1, #2 or #3: 1 Performed By: #### L 100.0100, L500.2500, L501.4020 #### [facility] [address] [place], [address] GFR/1.73 sq M.predicted among non-blacks MDRD (S/P/Bld) [Vol rate/Area] 54 mL/min/{1.73_m2} Low >60 [facility] Comment on above: Order Comment: 'TROP ' Serial specimen #1, #2 or #3: 1 Result Comment: Non- GFR Calc Performed By: #### L 100.0100, L500.2500, L501.4020 #### [facility] [address] [place], [address] Glucose [Mass/Vol] 117 mg/dL High 74-106 [facility] Comment on above: Order Comment: 'TROP ' Serial specimen #1, #2 or #3: 1 Result Comment: Fast ing Glucose result from 100 to 125 mg/dL suggests IMPAIRED HOMEOSTASIS per A.D.A. criteria. Performed By: #### L 100.0100, L500.2500, L501.4020 #### [facility] [address] [place], [address] Potassium [Moles/Vol] 3.4 mmol/L Low 3.5-5.1 [facility] Comment on above: Order Comment: 'TROP ' Serial specimen #1, #2 or #3: 1 Performed By: #### L 100.0100, L500.2500, L501.4020 #### [facility] [address] [place], [address] Sodium [Moles/Vol] 135 mmol/L Low 136-145 [facility] Comment on above: Order Comment: 'TROP ' Serial specimen #1, #2 or #3: 1 Performed By: #### L 100.0100, L500.2500, L501.4020 #### [facility] [address] [place], [address] Urea nitrogen [Mass/Vol] 18 mg/dL Normal 7-18 [facility] Comment on above: Order Comment: 'TROP ' Serial specimen #1, #2 or #3: 1 Performed By: #### L 100.0100, L500.2500, L501.4020 #### [facility] [address] [place], [address] CBC W/Diff, Automatedon 02-21 Absolute Lymph 1.82 X10 3/uL Normal 0.83-4.51 [facility] Comment on above: Performed By: #### L 100.0100, L500.2500, L501.4020 #### [facility] [address] [place], [address] Absolute Neut 12.2 X10 3/uL High 2.0-7.7 [facility] Comment on above: Performed By: #### L 100.0100, L500.2500, L501.4020 #### [facility] [address] [place], [address] Basophils/100 WBC (Bld) 0.5 % Normal 0-1 [facility] Comment on above: Performed By: #### L 100.0100, L500.2500, L501.4020 #### [facility] [address] [place], [address] Eosinophils/100 WBC (Bld) 0.3 % Normal 0-5 [facility] Comment on above: Performed By: #### L 100.0100, L500.2500, L501.4020 #### [facility] [address] [place], [address] Erythrocyte distribution width (RBC) [Ratio] 13.8 % Normal 11.6-14.6 [facility] Comment on above: Performed By: #### L 100.0100, L500.2500, L501.4020 #### [facility] [address] [place], [address] Hematocrit (Bld) [Volume fraction] 39.9 % Normal 37-47 [facility] Comment on above: Performed By: #### L 100.0100, L500.2500, L501.4020 #### [facility] [address] [place], [address] Hemoglobin (Bld) [Mass/Vol] 13.2 g/dL Normal 12.0-15.0 [facility] Comment on above: Performed By: #### L 100.0100, L500.2500, L501.4020 #### [facility] [address] [place], [address] IG% 1.700 High 0.0-0.9 [facility] Comment on above: Result Comment: IG% - Immature Granulocytes (promyelocytes, myelocytes and metamyelocytes) > 1% indicates that a LEFT SHIFT is Present. Performed By: #### L 100.0100, L500.2500, L501.4020 #### [facility] [address] [place], [address] Lymphocytes/100 WBC (Bld) 11.6 % Low 19-41 [facility] Comment on above: Performed By: #### L 100.0100, L500.2500, L501.4020 #### [facility] [address] [place], [address] MCH (RBC) [Entitic mass] 28.8 pg Normal 27.0-32.0 [facility] Comment on above: Performed By: #### L 100.0100, L500.2500, L501.4020 #### [facility] [address] [place], [address] MCHC (RBC) [Mass/Vol] 33.1 g/dL Normal 32-36 [facility] Comment on above: Performed By: #### L 100.0100, L500.2500, L501.4020 #### [facility] [address] [place], [address] MCV (RBC) [Entitic vol] 86.9 fL Normal 81-99 [facility] Comment on above: Performed By: #### L 100.0100, L500.2500, L501.4020 #### [facility] [address] [place], [address] Monocytes/100 WBC (Bld) 8.2 % Normal 0-10 [facility] Comment on above: Performed By: #### L 100.0100, L500.2500, L501.4020 #### [facility] [address] [place], [address] Neutrophils/100 WBC (Bld) 77.7 % High 47-70 [facility] Comment on above: Performed By: #### L 100.0100, L500.2500, L501.4020 #### [facility] [address] [place], [address] Nucleated RBC (Bld) [#/Vol] 0 10*3/uL Normal 0-5 [facility] Comment on above: Performed By: #### L 100.0100, L500.2500, L501.4020 #### [facility] [address] [place], [address] Platelet mean volume (Bld) [Entitic vol] 10.8 fL Normal 6.2-12.0 [facility] Comment on above: Performed By: #### L 100.0100, L500.2500, L501.4020 #### [facility] [address] [place], [address] Platelets (Bld) [#/Vol] 389 10*3/uL Normal 150-450 [facility] Comment on above: Performed By: #### L 100.0100, L500.2500, L501.4020 #### [facility] [address] [place], [address] RBC (Bld) [#/Vol] 4.59 10*6/uL Normal 4.2-5.4 [facility] Comment on above: Performed By: #### L 100.0100, L500.2500, L501.4020 #### [facility] [address] [place], [address] RDW SD 43.8 fl Normal 35.1-43.9 [facility] Comment on above: Performed By: #### L 100.0100, L500.2500, L501.4020 #### [facility] [address] [place], [address] WBC (Bld) [#/Vol] 15.7 10*3/uL High 4.4-11.0 [facility] Comment on above: Performed By: #### L 100.0100, L500.2500, L501.4020 #### [facility] [address] [place], [address] Chest PA and Lateralon 03-09 Chest PA and Lateral [facility] Imaging Services [address] [place] [address] Chest PA and Lateral MR#: [id number] Acct: [id number] Name: DAYANA BRIGGS Rep #: [id number] : 1950 F 73 From: Darian Wallace PCP: Dr. Prosper Roman DO Status: REG ER Study: Chest PA and Lateral Date of Exam: 03/09/24 Exam# [id number] Ordering Dr: [place] [id number] STUDY: XR Chest 2 Views 03/09/2024 7:31 PM REASON FOR EXAM: Female, 73 years old. sob COMPARISON: 05.13.23 TECHNIQUE: XR Chest 2 Views FINDINGS: There is no demonstrated pleural abnormality. Normal heart size. Normal mediastinum. Normal paty. Prominent appearing increased interstitial lung markings. Normal visualized pulmonary arteries. There is atherosclerotic calcification of the aortic arch with tortuosity. There are diffuse degenerative changes of the visualized thoracic spine. There is degenerative osteoarthritis of the bilateral shoulders. There are no acute findings of the upper abdomen. RAD/Chest PA and Lateral IMPRESSION: There are no acute findings. Electronically Signed: Darian Hernandez MD at 19:55 EST , CC: Dr. Annamarie Lira DO; Dr. Prosper Roman DO Reporting Developer: Signed [facility] Emergency Department Summary on 03-09-2024 Emergency Department Summary [facility] Medical Records Department [address] [place] [address] Emergency Department Summary 03/09/24 MR#: [id number] Acct: [id number] Name: DAYANA BRIGGS Rep #: [id number] : 1950 73 From: Annamarie Lira DO PCP: Dr. Prosper Roman DO Status:DEP ER Location: ED HPI History of Present Illness Chief Complaint: Shortness of Breath Informant: patient Narrative Narrative: Patient is a 73-year-old female with history of immunodeficiency disorder (receives monthly Ig infusions), COPD and chronic respiratory failure on 2.5 L of oxygen at baseline presenting with worsening shortness of breath. Patient states has been short of breath for about a week associated cough that is minimally productive. She is currently on day 6 of prednisone and Levaquin but does not feel as she is significantly getting better. She stopped like she is worsening either. She notes that she has had associated nasal congestion and her grandchildren have been sick with URI symptoms. She is concerned she possibly has pneumonia. She notes the first few days and she was on the medicine she had a low-grade temperature of 99.3 but is not had any recently. Denies any nausea or vomiting. States that she feels that there is a rattle in her chest. Feels that she has to lean forward to breathe well and feels short of breath if she tries to lay back. Denies any swelling of her legs. No other complaints or concerns reported at this time. Denies any associated chest pain States she last had a breathing treatment around 4 PM with no improvement of her symptoms. [facility] Medical History Thrombocytosis Anemia Leukocytosis Thrush RSV infection Acute and chronic respiratory failure with hypoxia Osteoporosis On home oxygen therapy COPD (chronic obstructive pulmonary disease) Former smoker GERD (gastroesophageal reflux disease) Hypothyroid Obesity (BMI 30.0-34.9) HTN (hypertension) Immune deficiency disorder Home Medications ???Medication ???Instructions ???Recorded ???Last Taken ???Type albuterol sulfate 90 mcg/actuation 2 puff inhalation Q4H PRN PRN Sob 07/22/14 Unknown History aerosol inhaler (ProAir HFA) /Or Wheezing levothyroxine 100 mcg tablet 100 mcg PO DAILY thyroid 07/22/14 07/22/14 History omeprazole 20 mg capsule,delayed 20 mg PO DAILY stomach 07/22/14 07/21/14 History release albuterol sulfate 2.5 mg/3 mL 2.5 mg inhalation Q4H PRN 05/29/22 Unknown History (0.083 %) solution for nebulization shortness of breath or wheezing amlodipine 5 mg tablet 5 mg PO DAILY 05/29/22 Unknown History cholecalciferol (vitamin D3) 25 25 mcg PO DAILY 05/29/22 Unknown History mcg (1,000 unit) capsule ipratropium 0.5 mg-albuterol 3 mg 3 ml inhalation Q6H PRN shortness 05/29/22 Unknown History (2.5 mg base)/3 mL nebulization of breath or wheezing soln zafirlukast 20 mg tablet 20 mg PO BID 05/29/22 Unknown History formoterol fumarate 20 mcg/2 mL 2 ml inhalation BID 10/30/22 Unknown History solution for nebulization (Perforomist) atorvastatin 10 mg tablet 10 mg PO QDAY 10/30/23 Unknown History calcium 333 mg-magnesium 133 mg-D3 1 tab PO DAILY 10/30/23 Unknown History 1.67 mcg-zinc 5 mg tablet ferrous sulfate 325 mg (65 mg 325 mg PO DAILY 10/30/23 Unknown History iron) tablet (Feosol) potassium citrate 99 mg capsule 99 mg PO DAILY 10/30/23 Unknown History spironolactone 25 mg tablet 25 mg PO QDAY 10/30/23 Unknown History zoledronic acid 5 mg/100 mL in 5 ea .Route ONCE #100 mL 10/30/23 Unknown Rx mannitol 5 %-water intravenous piggybck levofloxacin 750 mg tablet 750 mg PO DAILY #7 tabs 03/09/24 Unknown Rx prednisone 20 mg tablet 40 mg (2 x 20 mg) PO DAILY 7 days 03/09/24 Unknown Rx #14 TABLETS Allergy/AdvReac Type Severity Reaction Status Date / Time Environmental Allergies: Allergy Intermediate Hives Verified 03/09/24 18:00 Uncoded Sulfa (Sulfonamide Allergy Mild Hives Verified 03/09/24 18:00 Antibiotics) ampicillin Allergy stomach Verified 03/09/24 18:00 issues aspirin (ASA) Allergy Hives Verified 03/09/24 18:00 cephalexin monohydrate (From Allergy Hives Verified 03/09/24 18:00 Keflex) Family History Mother Hypertension Father Rheumatoid arthritis Heart disease Surgical History History of cholecystectomy History of appendectomy Hx of tonsillectomy Hx of hysterectomy Social History household members: spouse Smoking Status: Former smoker how long ago did patient quit smoking: Quit 2008, prior 1-1.5 ppd since youth. alcohol intake: never substance use type: does not use ROS ROS (more content not included)... Normal [facility] L501.4020on 03-09-2024 TROPONIN-I HS 16 pg/mL Normal 3.0-54.0 [facility] Comment on above: Order Comment: 'TROP ' Serial specimen #1, #2 or #3: 1 Result Comment: Kandice toscano Note: New Test Units and Gender Specific Reference Ranges. For more information see Policy Stat Procedure [place] High Sensitivity Troponin (TNIH) and attachments. Performed By: #### L 100.0100, L500.2500, L501.4020 ####[facility] [id number] [facility] [place], [address] Lactic Acidon 03-09-2024 Lactate [Moles/Vol] 1.9 mmol/L Normal 0.4-1.9 [facility] Comment on above: Order Comment: Y Performed By: #### L 503.6005 #### [facility] [address] [place], [address] M100.678on 03-09-2024 M100.678 Pending SARS-CoV-2 (COVID 19) Negative INFLUENZA A Negative INFLUENZA B Negative RSV PCR Negative Normal [facility] Comment on above: Performed By: #### M 100.678 #### [facility] [address] [place], [address] DBT Breast - bilateral scree dontadelores 03-05-2024 No mammographic evidence of malignancy. ASSESSMENT: Category 1 Negative RECOMMENDATION: Routine screening mammogram in 1 year. Bilateral CANCER RISK ASSESSMENT: This risk assessment is based on patient provided information collected in a risk survey taken at the time of this examination. LIFETIME BREAST CANCER RISK: Tyrer-Cuzick 8: 5.95% - If greater than or equal to 20%, consider annual mammogram and annual screening Breast MRI or follow up in high risk clinic. Is the patient at elevated risk based on the HBOC criteria? No (Hereditary Breast and Ovarian Cancer) - If Yes, consider genetic counseling and testing with high risk follow up Is the patient at elevated risk based on the Pradhan Syndrome criteria? No - If Yes, consider genetic counseling and testing with high risk follow up. Report Dictated on Electronically Signed By: Tarah Ho MD Electronically Signed Date/Time: 03/05/2024 11:23 AM EST [facility] [employer] Patient Name: DAYANA BRIGGS : 1950 Exam Date/Time: 03/05/2024 10:50 Procedure: BI MAMMOGRAM SCREENING TOMOSYNTHESIS BILATERAL Ordering Provider: ROMAN EUGENE Reason For Exam: This exam was performed at: [place] [address] PATIENT CANCER HISTORY: No Personal History of Cancer FAMILY CANCER HISTORY: Brother Prostate Cancer age 60 Paternal Cousin Breast Cancer age 35 Image views: 2D Bilateral CC and MLO views were acquired. 3D Bilateral CC and MLO views were acquired. Images were reviewed with CAD. Markings on images: BB's = Nipples; skin lesions Open chemehuevi = Palpable Line = Scar COMPARISON: 04/28/2021 TISSUE DENSITY: BIRADS B - There are scattered areas of fibroglandular density. FINDINGS: No suspicious masses, architectural distortions or suspiciously clustered microcalcifications are identified. There is no evidence of skin thickening or nipple retraction. There are no significant changes when compared with prior studies. [facility] [employer] Tarah Ho MD - 03/05/2024 Patient Name: DAYANA BRIGGS : 1950 Exam Date/Time: 03/05/2024 10:50 Procedure: BI MAMMOGRAM SCREENING TOMOSYNTHESIS BILATERAL Ordering Provider: ROMAN EUGENE Reason For Exam: This exam was performed at: [facility] [address] [place] [address] PATIENT CANCER HISTORY: No Personal History of Cancer FAMILY CANCER HISTORY: Brother Prostate Cancer age 60 Paternal Cousin Breast Cancer age 35 Image views: 2D Bilateral CC and MLO views were acquired. 3D Bilateral CC and MLO views were acquired. Images were reviewed with CAD. Markings on images: BB's = Nipples; skin lesions Open chemehuevi = Palpable Line = Scar COMPARISON: 04/28/2021 TISSUE DENSITY: BIRADS B - There are scattered areas of fibroglandular density. FINDINGS: No suspicious masses, architectural distortions or suspiciously clustered microcalcifications are identified. There is no evidence of skin thickening or nipple retraction. There are no significant changes when compared with prior studies. IMPRESSION: No mammographic evidence of malignancy. ASSESSMENT: Category 1 Negative RECOMMENDATION: Routine screening mammogram in 1 year. Bilateral CANCER RISK ASSESSMENT: This risk assessment is based on patient provided information collected in a risk survey taken at the time of this examination. LIFETIME BREAST CANCER RISK: Bogdan 8: 5.95% - If greater than or equal to 20%, consider annual mammogram and annual screening Breast MRI or follow up in high risk clinic. Is the patient at elevated risk based on the HBOC criteria? No (Hereditary Breast and Ovarian Cancer) - If Yes, consider genetic counseling and testing with high risk follow up Is the patient at elevated risk based on the Pradhan Syndrome criteria? No - If Yes, consider genetic counseling and testing with high risk follow up. Report Dictated on Electronically Signed By: Tarha Ho MD Electronically Signed Date/Time: 03/05/2024 11:23 AM EST [facility] Radiology Study observation (narrative) [facility] alth DBT Breast - bilateral scree ningOrdered By: Tarah Ho on 03-05-2024 [facility] [employer] Work Phone: Office Visiton 02-20-2024 Follow-up visit [id number] Lacy Briggs 1950 F Date Provider Department Center 02/20/2024 [id number] Family History Problem Relation Age of Onset High Blood Pressure Mother Comments: alive age 98 Rheum arthritis Father Heart disease Father Comments: age 59 Other Sister Comments: adrenal issues No Known Problems Sister COPD Brother Comments: age 65, smoker No Known Problems Brother No Known Problems Brother No Known Problems Brother Family Status - Relation Status Age at Mother Alive Father 58 Sister Alive Sister Alive Brother Brother Alive Brother Alive Brother Alive Level of Service:70044 NE OFFICE/OUTPATIENT ESTABLISHED MOD MDM 30 MIN Reason for Visit and Comments: Follow-up [759531] - Med check [facility] Progress Noteon 02-20-2024 Progress Note [facility] - [address] [facility] [id number] Visit type: Established Patient Reason for Visit: Follow-up (Med check) Assessment / Plan: Dayana was seen today for follow-up. Diagnoses and all orders for this visit: COPD exacerbation (HCC) (Primary) Comments: Acute. Patient does feel she needs a prednisone burst. Continue all meds. Call if purulent phlegm fever or no resolution in 5 to 7 days for cxr and AB Orders: - predniSONE (Deltasone) 10 MG tablet; Take 5 tabs for 5 days, then 4 tabs for 2 days, then 3 tabs for 2 days, then 2 tabs for 2 days, then one q day till gone Encounter for screening mammogram for malignant neoplasm of breast - Bilateral screening mammogram with tomosynthesis; Future Hypothyroidism, unspecified type Comments: Stable, continue Synthroid Orders: - levothyroxine (Synthroid, Levoxyl) 100 MCG tablet; Take 1 tablet (100 mcg) by mouth daily for 180 doses. Mixed hyperlipidemia Comments: Stable, continue Lipitor Orders: - atorvastatin (Lipitor) 10 MG tablet; Take 1 tablet (10 mg) by mouth daily. Gastroesophageal reflux disease without esophagitis Comments: Stable, continue Prilosec Orders: - omeprazole (PriLOSEC) [address] capsule; Take 1 capsule (20 mg) by mouth daily. Immunoglobulin deficiency (HCC) Chronic respiratory failure with hypoxia (HCC) Primary hypertension Comments: Stable, continue amlodipine Subjective: Patient ID: Dayana Briggs is a 73 y.o. female. 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 Recently has been wheezing more and short of breath. No fever or purulent phlegm. No pleurisy. Gets immunoglobulin infusion every month in [place] by florist's decorator. Recent pulmonary consultation noted Review of Systems compliant with meds. No recent heartburn or abdominal pain. Bowels are regular. No abdominal pain. No melena or blood. Due for colonoscopy 5 more years. She would like a mammogram referral. Breast exam in the spring was normal. No new breast complaints. Had a lot of stress with her only daughter having an acute KS in her mid 30s. She and her 2 kids live with this patient. A lot of stress at home but tolerable. Allergies Allergen Reactions Lisinopril Shortness of breath Cough and wheezing Other Other Envirmental allergies trees pollen rag weed, douglass Ampicillin Other reaction(s): Other, stomach issues Aspirin Hives Other reaction(s): U Other reaction(s): U Codeine Other reaction(s): GI Upset sleepy, dizzy Erythromycin unknown reaction Levaquin [Levofloxacin] Other Joint pain (ankles) Penicillins Other reaction(s): Other (See Comments) Upset [...] to Visit Medication Sig Dispense Refill albuterol 108 (90 Base) MCG/ACT inhaler Inhale 2 puffs every 4 hours as needed for shortness of breath. 1 each 2 amLODIPine (Norvasc) 5 MG tablet Take 1 tablet (5 mg) by mouth daily. 90 tablet 1 cholecalciferol (Vitamin D-3) 25 MCG (1000 UT) capsule Take 1 capsule by mouth in the morning and 1 capsule before bedtime. fluconazole (Diflucan) 150 MG tablet Take 1 tablet (150 mg) by mouth daily. 7 tablet 1 Mlxvmxrllqz-Tybgappee-R ilant (Trelegy Ellipta) 200-62.5-25 MCG/ACT aerosol powder Inhale 1 puff daily. 1 each 5 Iuirgclqkem-Exsjdkuki-H ilant (Trelegy Ellipta) 200-62.5-25 MCG/ACT aerosol powder Inhale 1 puff daily. Rinse mouth with water after use to reduce aftertaste and incidence of candidiasis. Do not swallow. 1 each 0 ipratropium (Atrovent) 0.02 % nebulizer solution INHALE THE CONTENTS OF 1 VIAL VIA NEBULIZER 2 TIMES DAILY ipratropium-albuterol (Duo-Neb) 0.5-2.5 mg/3 mL nebulizer solution Take 3 mL by nebulization 4 times daily as needed for wheezing. 30 mL 2 Potassium Gluconate 2.5 MEQ tablet Take by mouth. spironolactone (Aldactone) 25 MG tablet Take 1 tablet (25 mg) by mouth daily. 90 tablet 1 zafirlukast (Accolate) 20 MG tablet Take 20 mg by mouth in the morning and 20 mg before bedtime. [DISCONTINUED] atorvastatin (Lipitor) 10 MG tablet Take 1 tablet (10 mg) by mouth daily. 30 tablet 5 [DISCONTINUED] levothyroxine (Synthroid, Levoxyl) 100 MCG tablet Take 1 tablet (100 mcg) by mouth daily for 180 doses. 90 tablet 1 [DISCONTINUED] omeprazole (PriLOSEC) [address] capsule Take 1 capsule (20 mg) by mouth daily. 90 capsule 1 albuterol (2.5 MG/3ML) 0.083% nebulizer solution Take 3 mL (2.5 mg) by nebulization every 4 hours as needed for wheezing or shor (more content not included)... [facility] 36on 02-19-2024 36 RX loaded Next ov 02/20/24 [facility] 36 Medication name: albuterol 108 (90 Base) MCG/ACT inhaler Patient would like to make sure they receive a 90-day supply on this medication. Please advise. Medication dosage: 2 puffs Monthly quantity needed: does not say How many day supply requestin days Medication route: inhalation (inhaler) Medication administration time(s): as needed (PRN) If taking medication PRN, reason for taking medication: shortness of breath If this is a controlled substance do you receive this or any other controlled medication from any other doctor or facility: N/A Ordering provider: Dr. Roman Date of last office visit: 10/24/23 Date of next office visit: 02/20/24 Date of last refill: (see medication tab): 12/27/23 Updated/Validated preferred pharmacy: Yes Patient instructed to contact the pharmacy prior to picking up the medication: Yes [facility] 36on 01-30-2024 36 TRELEGY 200 SAMPLES [facility] Office Visiton 01-30-2024 Follow-up visit [id number] Lacy Briggs Artis 1950 F Date Provider Department Center 01/30/2024 JOYCE SPENEC SHMGMIT PULM None Family History Problem Relation Age of Onset High Blood Pressure Mother Comments: alive age 98 Rheum arthritis Father Heart disease Father Comments: age 59 Other Sister Comments: adrenal issues No Known Problems Sister COPD Brother Comments: age 65, smoker No Known Problems Brother No Known Problems Brother No Known Problems Brother Family Status - Relation Status Age at Mother Alive Father 58 Sister Alive Sister Alive Brother Brother Alive Brother Alive Brother Alive Level of Service:75288 NE OFFICE/OUTPATIENT ESTABLISHED LOW MDM 20 MIN Reason for Visit and Comments: Follow-up [488493] - 3 week, COPD, SOB Emphysema [facility] PATINSon 01-30-2024 ROBYNNS YOUR APPOINTMENT TOEnder MACEDO WAS WITH THE [facility] LUNG NODULE CLINIC, COPD CLINIC, PULMONARY AND SLEEP MEDICINE OFFICE. PLEASE CALL OUR OFFICE AT [phone] for our [place] office location or [phone] for our [place] location, IF YOU HAVE NOT RECEIVED YOUR [...] to make improvements. COVID-19 VACCINATION INFORMATION: PH. [phone] HEALTH.ORG/CORONAVIRUS/ VACCINE [facility] Central Scheduling [phone] [facility] Sleep Scheduling [phone] Normal [facility] Progress Noteon 01-30-2024 Progress Note [facility] Pulmonary Medicine [address] [place] [address] Date of Service: 01/30/2024 Visit type: An Established patient Chief Complaint/Reason for Referral: Follow-up (3 week, COPD, SOB Emphysema) SUBJECTIVE History of Present Illness: Dayana Briggs ( 1950) is a 73 y.o. 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 Patient complaining of frequent exacerbations. She feels this seems to occur monthly after her IVIG infusions. Optimized on high dose Trelegy at last OV. Echocardiogram done, without any abnormality to explain dyspnea. CAT: MMRC Dyspnea Scale: Grade Description of Breathlessness [...] pulmonary disease) (HCC) 2014 Home O2 since 2015 Ex-smoker 2009 GERD (gastroesophageal reflux disease) History of idiopathic thrombocytopenic purpura 2006 resolved History of shingles 2020 left CN V Hypertension 2004 Hypothyroidism IBS (irritable bowel syndrome) 2001 per [facility] Immunoglobulin deficiency (HCC) 2008 monthly IVIG infusion per Dr. Decker, [place], [place] Nodule of upper lobe of right lung no change per 2023 LDCT Osteoporosis [address] Field Renal stones SURGICAL HISTORY: Past Surgical History: Procedure Laterality Date APPENDECTOMY CATARACT EXTRACTION W/ INTRAOCULAR LENS IMPLANT Bilateral CHOLECYSTECTOMY 2012 COLONOSCOPY 10/2018 due 2028 [facility] dentures HEMORRHOID SURGERY 1994 MENISCECTOMY Left 2016 [place] PARTIAL HYSTERECTOMY 1994 DUB- Ovaries intact SKIN BIOPSY from left arm, under right breast, and forehead. All negative for CA TONSILLECTOMY (HISTORICAL) ALLERGIES: Allergies Allergen Reactions Lisinopril Shortness of breath Cough and wheezing Other Other Envirmental allergies trees pollen rag weed, douglass Ampicillin Other reaction(s): Other, stomach issues Aspirin Hives Other reaction(s): U Other reaction(s): U Codeine Other reaction(s): GI Upset sleepy, dizzy Erythromycin unknown reaction Levaquin [Levofloxacin] Other Joint pain (ankles) Penicillins Other reaction(s): Other (See Comments) Upset [...] shortness of breath., Disp: 1 each, Rfl: 1 amLODIPine (Norvasc) 5 MG tablet, Take 1 tablet (5 mg) by mouth daily., Disp: 90 tablet, Rfl: 1 atorvastatin (Lipitor) 10 MG tablet, Take 1 tablet (10 mg) by mouth daily., Disp: 30 tablet, Rfl: 5 cholecalciferol (Vitamin D-3) 25 MCG (1000 UT) capsule, Take 1 capsule by mouth in the morning and 1 capsule before bedtime., Disp: , Rfl: fluconazole (Diflucan) 150 MG tablet, Take 1 tablet (150 mg) by mouth daily., Disp: 7 tablet, Rfl: 1 Lwhesyytala-Sapagyhsv-K ilant (Trelegy Ellipta) 200-62.5-25 MCG/ACT aerosol powder , Inhale 1 puff daily., Disp: 1 each, Rfl: 5 ipratropium (Atrovent) 0.02 % nebulizer solution, INHALE [...] Rfl: predniSONE (Deltasone) 10 MG tablet, Take 4 tabs (40mg) daily for 3 days, then (more content not included)... [facility] US Heart TransthoracicOrdere d By: Hayden Aguilera on 01-10-2024 Ao Root Index 1.53 cm/m2 [facility] Work Phone: Aortic Arch 2.6 cm [facility] Work Phone: Aortic Root 2.7 cm [facility] Work Phone: Ascending Aorta 2.4 cm [facility] Hea [facility] Work Phone: Ascending Aorta Index 1.36 cm/m2 [facility] Work Phone: AV Area by Peak Velocity 2.7 cm2 [facility] Work Phone: AV Area by VTI 2.3 cm2 [facility] Work Phone: AV Mean Gradient 4 mmHg [facility] Work Phone: AV Mean Velocity 1.0 m/s [facility] Work Phone: AV Peak Gradient 8 mmHg [facility] Work Phone: AV Peak Velocity 1.4 m/s [facility] Work Phone: AV Velocity Ratio 0.86 [facility] e[facility] Work Phone: AV VTI 34.0 cm [facility] Work Phone: PRESTON/BSA Peak Velocity 1.5 cm2/m2 [facility] Work Phone: PRESTON/BSA VTI 1.3 cm2/m2 [facility] Work Phone: EF BP 72 % 55 - 100 % [facility] Work Phone: Est. RA Pressure 3 mmHg [facility] Work Phone: Fractional Shortening 2D 41 % 28 - 44 % [facility] Work Phone: Interpretation and review of laboratory results Abnormal [facility] Work Phone: IVC Diameter 1.5 cm [facility] Work Phone: IVSd 0.9 cm 0.6 - 0.9 cm [facility] Work Phone: LA Diameter 3.2 cm [facility] Work Phone: LA Size Index 1.81 cm/m2 [facility] Work Phone: LA Volume 2C 26 mL 22 - 52 mL [facility] Work Phone: LA Volume 4C 27 mL 22 - 52 mL [facility] Work Phone: LA Volume A/L 29 mL [facility] Work Phone: LA Volume BP 27 mL 22 - 52 mL [facility] Work Phone: LA Volume Index 2C 15 mL/m2 Abnormal 16 - 34 mL/m2 [facility] Work Phone: LA Volume Index 4C 15 mL/m2 Abnormal 16 - 34 mL/m2 [facility] Work Phone: LA Volume Index A/L 16 mL/m2 16 - 34 mL/m2 [facility] Work Phone: LA Volume Index BP 15 ml/m2 Abnormal 16 - 34 ml/m2 [facility] Work Phone: LA/AO Root Ratio 1.19 [facility] Work Phone: LV EDV A2C 65 mL [facility] Work Phone: LV EDV A4C 59 mL [facility] Work Phone: LV EDV BP 63 mL 56 - 104 mL [facility] Work Phone: LV EDV Index A2C 37 mL/m2 [facility] He [facility] Work Phone: LV EDV Index A4C 33 mL/m2 [facility] alth Work Phone: LV EDV Index BP 36 mL/m2 [facility] Work Phone: LV Ejection Fraction A2C 75 % [facility] Work Phone: LV Ejection Fraction A4C 69 % [facility] Work Phone: LV ESV A2C 16 mL [facility] Work Phone: LV ESV A4C 18 mL [facility] Work Phone: LV ESV BP 18 mL Abnormal 19 - 49 mL [facility] Work Phone: LV ESV Index A2C 9 mL/m2 [facility] Work Phone: LV ESV Index A4C 10 mL/m2 [facility] Work Phone: LV ESV Index BP 10 mL/m2 [facility] Hea lt Work Phone: LV Mass 2D 132.1 g 67 - 162 g [facility] Work Phone: LV Mass 2D Index 74.6 g/m2 43 - 95 g/m2 [facility] Work Phone: LV RWT Ratio 0.54 [facility] Work Phone: LVIDd 4.1 cm 3.9 - 5.3 cm [facility] Work Phone: LVIDd Index 2.32 cm/m2 [facility] Work Phone: LVIDs 2.4 cm [facility] Work Phone: LVIDs Index 1.36 cm/m2 [facility] Work Phone: LVOT Area 3.1 cm2 [facility] Work Phone: LVOT Cardiac Output 5.1 liter/mi nut e [facility] Work Phone: LVOT Diameter 2.0 cm [facility] Healt [facility] Work Phone: LVOT Mean Gradient 3 mmHg [facility] Work Phone: LVOT Peak Gradient 6 mmHg [facility] Work Phone: LVOT Peak Velocity 1.2 m/s [facility] Work Phone: LVOT Stroke Volume Index 46.5 mL/m2 [facility] Work Phone: LVOT SV 82.3 ml [facility] Work Phone: LVOT VTI 26.2 cm [facility] Work Phone: LVOT:AV VTI Index 0.77 [facility] Work Phone: LVPWd 1.1 cm Abnormal 0.6 - 0.9 cm [facility] Work Phone: MV A Velocity 0.75 m/s [facility] Work Phone: MV E Velocity 1.10 m/s [facility] Work Phone: MV E Wave Deceleration Time 144.6 ms [facility] Work Phone: MV E/A 1.47 [facility] Work Phone: Pulmonary Artery EDP 3 mmHg [facility] Work Phone: RA Area 4C 53.0 mL [facility] Work Phone: RA Area 4C 47.5 mL [facility] Work Phone: RV Basal Dimension 3.7 cm [facility] Work Phone: RV Free Wall Peak S' 13 cm/s [facility] Work Phone: RV Mid Dimension 2.6 cm [facility] Work Phone: RVSP 25 mmHg [facility] Work Phone: [phone] Sinotubular Junction 2.3 cm [facility] Work Phone: [phone] TAPSE 2.5 cm 1.7 cm [facility] Work Phone: TR Max Velocity 2.36 m/s [facility] Work Phone: TR Peak Gradient 22 mmHg [facility] Work Phone: [facility] Work Phone: US Heart Transthoracicon Left Ventricle: Left ventricle size is normal. Normal wall thickness. Normal left ventricular systolic function. EF by 2D Simpsons Biplane is 72%. Normal wall motion. Elevated left ventricular filling pressure. Right Ventricle: Right ventricle size is normal. Normal systolic function. Aortic Valve: No stenosis. AV mean gradient is 4 mmHg. AV peak gradient is 8 mmHg. LVOT:AV VTI Index is 0.77. LVOT diameter is 2.0 cm. AV area by continuity VTI is 2.3 cm2. Stroke volume index is 46.5 mL/m2. Tricuspid Valve: Mild (1+) regurgitation. Normal hepatic vein systolic flow. Normal RVSP. RVSP is 25 mmHg. Pulmonic Valve: Trace regurgitation. Interatrial Septum: No interatrial shunt visualized on color Doppler. Grade 0 Absence of bubbles. Agitated saline study was negative with and without provocation. Left Ventricle Left ventricle size is normal. Normal wall thickness. Normal left ventricular systolic function. EF by 2D Simpsons Biplane is 72%. Normal wall motion. Elevated left ventricular filling pressure. Right Ventricle Right ventricle size is normal. Normal systolic function. Left Atrium Left atrium size is normal. Right Atrium Right atrium size is normal. IVC/SVC IVC diameter is normal and decreases greater than 50% during inspiration; therefore the estimated right atrial pressure is normal (~3 mmHg). Mitral Valve Valve structure is normal. Mild (1+) regurgitation. No stenosis noted. Tricuspid Valve Valve structure is normal. Mild (1+) regurgitation. Normal hepatic vein systolic flow. Normal RVSP. RVSP is 25 mmHg. Aortic Valve Trileaflet. No cusp thickening. No cusp calcification. No regurgitation. No stenosis. AV mean gradient is 4 mmHg. AV peak gradient is 8 mmHg. LVOT:AV VTI Index is 0.77. LVOT diameter is 2.0 cm. AV area by continuity VTI is 2.3 cm2. Stroke volume index is 46.5 mL/m2. Pulmonic Valve Valve structure is normal. Trace regurgitation. Ascending Aorta Normal sized sinuses of Valsalva and ascending aorta. Pericardium No pericardial effusion. Septum No interatrial shunt visualized on color Doppler. Grade 0 Absence of bubbles. Agitated saline study was negative with and without provocation. Hypermobile interatrial septum. Study Details Image quality: adequate. Heart rate: 73 bpm. Blood pressure: 141/72 mmHg. The underlying ECG rhythm was sinus rhythm. Saline contrast was given to evaluate for intracardiac shunt. Bubble study was with Valsalva. CV CPACS Fungal CultureOrdered By: Roger Richards on 01-07-2024 Fungus identified Cx Nom (Unsp spec) Rare Edgar albicans Abnormal [facility] Fungus identified Cx Nom (Un sp spec)Ordered By: Svitlana Richards on 01-07-2024 Interpretation and review of laboratory results Abnormal [facility] Bacteria identified Aer cx N om (Lower resp)Ordered By: Cherelle Espinal on 12-15-2023 Gram Stain Result Few Polymorphonuclea r leukocytes per low power field Abnormal [facility] Gram Stain Result Few Epithelial cells per low power field Abnormal [facility] Gram Stain Result Positive Abnormal [facility] Gram Stain Result Negative Abnormal [facility] Interpretation and review of laboratory results Abnormal [facility] Respiratory culture and Stai nOrdered By: Cherelle Espinal on 12-15-2023 Bacteria identified Aer cx Nom (Lower resp) Few respiratory scott present. [facility] XR Chest 2 Viewson No acute cardiopulmonary abnormality identified. COPD changes. Redemonstration of known right apical pulmonary nodule. Report Dictated on Electronically Signed By: Fredi Cherry MD Electronically Signed Date/Time: 12/15/2023 5:37 PM EDT [facility] Name: [facility]IG[facility] : 1950 [id number] Exam Date/Time: 12/13/2023 11:18 Procedure: XR CHEST 2 VIEWS Ordering Provider: BROWN JULIE Reason For Exam: please do 24 hrs prior to V/Q scan EXAMINATION: XR chest PA and lateral. EXAM DATE & TIME: 12/13/2023 11:18 AM EDT INDICATION: please do 24 hrs prior to V/Q scan ADDITIONAL INFORMATION: 73-year-old female with chest pain presents for evaluation COMPARISON: Chest x-rays dated 03/28/2023, 05/26/2022, 10/08/[address] chest dated 06/05/2023 TECHNIQUE: Frontal and lateral views of the chest were obtained. FINDINGS: The cardiomediastinal silhouette is within normal limits. Known right apical lung nodule measures approximately 1.4 cm. There is lung hyperinflation, flattening of the hemidiaphragms and coarsening of the interstitium. No focal consolidation, pleural effusion or pneumothorax. No acute osseous abnormality is demonstrated. Advanced degenerative changes of the spine and shoulders are seen. Chronic deformities of the right glenohumeral joint are noted. [facility] Fredi Cherry MD - 12/15/2023 Patient Name: DAYANA BRIGGS : 1950 [id number] Exam Date/Time: 12/13/2023 11:18 Procedure: XR CHEST 2 VIEWS Ordering Provider: BROWN JULIE Reason For Exam: please do 24 hrs prior to V/Q scan EXAMINATION: XR chest PA and lateral. EXAM DATE & TIME: 12/13/2023 11:18 AM EDT INDICATION: please do 24 hrs prior to V/Q scan ADDITIONAL INFORMATION: 73-year-old female with chest pain presents for evaluation COMPARISON: Chest x-rays dated 03/28/2023, 05/26/2022, 10/08/[address] chest dated 06/05/2023 TECHNIQUE: Frontal and lateral views of the chest were obtained. FINDINGS: The cardiomediastinal silhouette is within normal limits. Known right apical lung nodule measures approximately 1.4 cm. There is lung hyperinflation, flattening of the hemidiaphragms and coarsening of the interstitium. No focal consolidation, pleural effusion or pneumothorax. No acute osseous abnormality is demonstrated. Advanced degenerative changes of the spine and shoulders are seen. Chronic deformities of the right glenohumeral joint are noted. IMPRESSION: No acute cardiopulmonary abnormality identified. COPD changes. Redemonstration of known right apical pulmonary nodule. Report Dictated on Electronically Signed By: Fredi Cherry MD Electronically Signed Date/Time: 12/15/2023 5:37 PM EDT [facility] XR Chest 2 ViewsOrdered By: Fredi Cherry on 12-15-2023 [facility] Work Phone: XR Chest 2 Viewson Radiology Study observation (narrative) [facility] alth No Panel Informationon 05-22 [facility] Absolute lymphocyte countOrd ered By: Sapna Laboy on 05-13-2023 Lymphocytes Auto (Unsp spec) [#/Vol] 1.36 10*3/uL 0.83-4.51 [facility] Automated lymphocyte count a s percentage of total leukocytesOrdered By: Sapna Laboy on 05-13-2023 Lymphocytes/100 WBC Auto (Unsp spec) 10.0 % 19-41 [facility] Basophil percentageOrdered B y: Sapna Laboy on 05-13-2023 Basophil percentage 5-10 SEEN /hpf 0-5 [facility] Basophils/100 WBC (Bld) 0.6 % 0-1 [facility] Chloride [Moles/Vol] 105 mmol/L 98-107 [facility] Eosinophils/100 WBC (Bld) 1.3 % 0-5 [facility] Glucose [Mass/Vol] 118 mg/dL 74-106 [facility] Comment on above: Fasting Glucose resu lt from 100 to 125 mg/dL suggests IMPAIRED HOMEOSTASIS per A.D.A. criteria. Hemoglobin (Bld) [Mass/Vol] 11.5 g/dL 12.0-15.0 [facility] Monocytes/100 WBC (Bld) 8.2 % 0-10 [facility] Neutrophils (Bld) [#/Vol] 10.8 10*3/uL 2.0-7.7 [facility] Neutrophils/100 WBC (Bld) 79.4 % 47-70 [facility] Potassium [Moles/Vol] 3.6 mmol/L 3.5-5.1 [facility] Sodium [Moles/Vol] 138 mmol/L 136-145 [facility] WBC (Bld) [#/Vol] 13.6 10*3/uL 4.4-11.0 [facility] Bilirubin Test strip Ql (U)O rdered By: Sapna Laboy on 05-13-2023 Bilirubin Ql (U) Negative Negative [facility] Determination of erythrocyte mean corpuscular volume (MCV)Ordered By: Sapna Laboy on 05-13-2023 MCV (RBC) [Entitic vol] 87.9 fL 81-99 [facility] Erythrocyte distribution wid th ratioOrdered By: Sapna Laboy on 05-13-2023 Erythrocyte distribution width (RBC) [Ratio] 13.8 % 11.6-14.6 [facility] Erythrocyte distribution wid th standard deviationOrdered By: Sapna Laboy on 05-13-2023 Erythrocyte distribution width (RBC) [Entitic vol] 44.4 fL 35.1-43.9 [facility] Hematocrit Auto (Bld) [Volum e fraction]Ordered By: Sapna Laboy on 05-13-2023 Hematocrit (Bld) [Volume fraction] 36.2 % 37-47 [facility] Immature granulocytes/100 WB C Auto (Bld)Ordered By: Sapna Laboy on 05-13-2023 Immature granulocytes/100 WBC (Bld) 0.500 % 0.0-0.9 [facility] Comment on above: IG% - Immature Granu locytes (promyelocytes, myelocytes and metamyelocytes) > 1% indicates that a LEFT SHIFT is Present. Ketones Test strip Ql (U)Ord ered By: Sapna Laboy on 05-13-2023 Ketones Ql (U) Negative Negative [facility] Laboratory - Chemistry and C hemistry - challengeOrdered By: Sapna Laboy on 05-13-2023 CO2 [Moles/Vol] 29.0 mmol/L 21.0-32.0 [facility] Urea nitrogen/Creatinine [Mass ratio] 13.4 mg/mg 10-20 [facility] - Hematology and Cell countsOrdered By: Sapna Laboy on 05-13-2023 MCH (RBC) [Entitic mass] 27.9 pg 27.0-32.0 [facility] MCHC (RBC) [Mass/Vol] 31.8 g/dL 32-36 [facility] Nucleated RBC/100 WBC (Bld) [Ratio] 0 % 0-5 [facility] Platelets (Bld) [#/Vol] 313 10*3/uL 150-450 [facility] Mucus LM Ql (Urine sed)Order ed By: Sapna Laboy on 05-13-2023 Mucus Ql (Urine sed) 0 SEEN /hpf [facility] Nitrite Test strip Ql (U)Ord ered By: Sapna Laboy on 05-13-2023 Nitrite Ql (U) Negative Negative [facility] No Panel InformationOrdered By: Sapna Laboy on 05-13-2023 Urine RBC 0 SEEN /hpf 0-5 [facility] Estimated Creatinine Clearance Calc 57.87 ml/min [facility] Estimated GFR (MDRD) Amer 98 mL/min >60 [facility] Comment on above: GFR Calc Estimated GFR (MDRD) Non-Af Amer 81 mL/min >60 [facility] Comment on above: Non- GFR Calc Troponin I High Sensitivity 12 pg/mL 3.0-54.0 [facility] Comment on above: Please Note: New Mirella t Units and Gender Specific Reference Ranges. For more information see Policy Stat Procedure [place] High Sensitivity Troponin (TNIH) and attachments. Platelet mean volume John-Ec ker (Bld) [Entitic vol]Ordered By: Sapna Laboy on 05-13-2023 Platelet mean volume (Bld) [Entitic vol] 10.2 fL 6.2-12.0 [facility] Protein Test strip Ql (U)Ord ered By: Sapna Laboy on 05-13-2023 Protein Ql (U) 15 mg/dl Negative [facility] RBC Auto (Bld) [#/Vol]Ordere d By: Sapna Laboy on 05-13-2023 RBC (Bld) [#/Vol] 4.12 10*6/uL 4.2-5.4 [facility] Serum or plasma calcium radha urement (mass/volume)Ordered By: Sapna Laboy on 05-13-2023 Calcium [Mass/Vol] 9.9 mg/dL 8.5-10.1 [facility] Serum or plasma creatinine m easurement (mass/volume)Ordered By: Sapna Laboy on 05-13-2023 Creatinine [Mass/Vol] 0.75 mg/dL 0.55-1.02 [facility] Comment on above: The validity of the calculated GFR & GFRAA in patients over 70 years has not been determined. Clinical correlation is essential. Serum or plasma urea nitroge n measurement (mass/volume)Ordered By: Sapna Laboy on 05-13-2023 Urea nitrogen [Mass/Vol] 10 mg/dL 7-18 [facility] Squamous epithelial cells de tection in urine sediment by light microscopyOrdered By: Sapna Laboy on 05-13-2023 Epithelial cells.squamous LM Ql (Urine sed) 0-5 SEEN /hpf 5-10 [facility] Thin prep Papanicolaou smear with manual screeningOrdered By: aSpna Laboy on 05-13-2023 Thin prep Papanicolaou smear with manual screening 4 5-15 [facility] Urine blood detectionOrdered By: Sapna Laboy on 05-13-2023 RBC Ql (U) 25 /ul Negative [facility] Urine clarityOrdered By: Awa Laboy on 05-13-2023 Clarity (U) Clear Clear [facility] Urine color determinationOrd ered By: Sapna Laboy on 05-13-2023 Color (U) Yellow Yellow [facility] Urine glucose detectionOrder ed By: Sapna Laboy on 05-13-2023 Glucose Ql (U) Normal mg/dl Normal [facility] Urine leukocyte esterase det ection by dipstickOrdered By: Sapna Laboy on 05-13-2023 Leukocyte esterase Test strip Ql (U) 500 /ul Negative [facility] Urine pHOrdered By: Sapna goldsteinr on 05-13-2023 pH (U) 6.5 [pH] 5.0 - 8.0 [facility] Urine sediment bacteria coun t by microscopy (number/high power field)Ordered By: Sapna Laboy on 05-13-2023 Bacteria LM.HPF (Urine sed) [#/Area] 1 /[HPF] None Seen [facility] Urine specific gravity measu rementOrdered By: Sapna Laboy on 05-13-2023 Specific gravity (U) [Rel density] 1.010 1.002-1.030 [facility] Urine urobilinogen measureme ntOrdered By: Sapna Laboy on 05-13-2023 Urobilinogen Ql (U) Normal mg/dl Normal [facility] Absolute lymphocyte countOrd ered By: Hayedr Bob on 04-12-2023 Lymphocytes Auto (Unsp spec) [#/Vol] 2.06 10*3/uL 0.83-4.51 [facility] Basophil percentageOrdered B y: Hayder Bob on 04-12-2023 Basophils/100 WBC (Bld) 0.2 % 0-1 [facility] Chloride [Moles/Vol] 104 mmol/L 98-107 [facility] Eosinophils/100 WBC (Bld) 1.8 % 0-5 [facility] Glucose [Mass/Vol] 114 mg/dL 74-106 [facility] Comment on above: Fasting Glucose resu lt from 100 to 125 mg/dL suggests IMPAIRED HOMEOSTASIS per A.D.A. criteria. Neutrophils (Bld) [#/Vol] 10.0 10*3/uL 2.0-7.7 [facility] Neutrophils/100 WBC (Bld) 74.1 % 47-70 [facility] Potassium [Moles/Vol] 3.4 mmol/L 3.5-5.1 [facility] Sodium [Moles/Vol] 139 mmol/L 136-145 [facility] WBC (Bld) [#/Vol] 13.4 10*3/uL 4.4-11.0 [facility] Blood erythrocytes count (nu mber/volume)Ordered By: Hayder Bob on 04-12-2023 RBC (Bld) [#/Vol] 4.33 10*6/uL 4.2-5.4 [facility] Blood hemoglobin measurement (mass/volume)Ordered By: Hayder Bob on 04-12-2023 Hemoglobin (Bld) [Mass/Vol] 12.3 g/dL 12.0-15.0 [facility] Blood lymphocytes/100 leukoc ytesOrdered By: Hayder Bob on 04-12-2023 Lymphocytes/100 WBC (Bld) 15.4 % 19-41 [facility] Blood monocytes/100 leukocyt esOrdered By: Hayder Bob on 04-12-2023 Monocytes/100 WBC (Bld) 7.7 % 0-10 [facility] Blood platelet mean volumeOr dered By: Hayder Bob on 04-12-2023 Platelet mean volume (Bld) [Entitic vol] 9.1 fL 6.2-12.0 [facility] Determination of erythrocyte mean corpuscular volume (MCV)Ordered By: Hayder Bob on 04-12-2023 MCV (RBC) [Entitic vol] 88.7 fL 81-99 [facility] Hematocrit Auto (Bld) [Volum e fraction]Ordered By: Hayedr Bob on 04-12-2023 Hematocrit (Bld) [Volume fraction] 38.4 % 37-47 [facility] Influenza virus A and B and SARS-CoV-2 (COVID-19) Ag panel - Upper respiratory specimOrdered By: Hayder Bob on 04-12-2023 SARS-CoV-2 (COVID-19) RNA NETO+probe Ql (Resp) [facility] - Chemistry and C hemistry - challengeOrdered By: Hayder Bob on 04-12-2023 CO2 [Moles/Vol] 28.0 mmol/L 21.0-32.0 [facility] Urea nitrogen/Creatinine [Mass ratio] 17.3 mg/mg 10-20 [facility] - Hematology and Cell countsOrdered By: Hayder Bob on 04-12-2023 Erythrocyte distribution width (RBC) [Entitic vol] 45.0 fL 35.1-43.9 [facility] Erythrocyte distribution width (RBC) [Ratio] 13.8 % 11.6-14.6 [facility] Immature granulocytes/100 WBC (Bld) 0.800 % 0.0-0.9 [facility] Comment on above: IG% - Immature Granu locytes (promyelocytes, myelocytes and metamyelocytes) > 1% indicates that a LEFT SHIFT is Present. MCH (RBC) [Entitic mass] 28.4 pg 27.0-32.0 [facility] Nucleated RBC/100 WBC (Bld) [Ratio] 0 % 0-5 [facility] MCHC Auto (RBC) [Mass/Vol]Or dered By: Hayder Bob on 04-12-2023 MCHC (RBC) [Mass/Vol] 32.0 g/dL 32-36 [facility] No Panel InformationOrdered By: Hayder Bob on 04-12-2023 Estimated Creatinine Clearance Calc 40.87 ml/min [facility] Estimated GFR (MDRD) Amer 77 mL/min >60 [facility] Comment on above: GFR Calc Estimated GFR (MDRD) Non-Af Amer 64 mL/min >60 [facility] Comment on above: Non- GFR Calc Platelets bldOrdered By: Aston Bob on 04-12-2023 Platelets (Bld) [#/Vol] 379 10*3/uL 150-450 [facility] RSV Ag EIAOrdered By: Hayder loya on 04-12-2023 RSV Ag Immune stain Ql (Tiss) [facility] Serum or plasma calcium radha urement (mass/volume)Ordered By: Hayder Bob on 04-12-2023 Calcium [Mass/Vol] 8.9 mg/dL 8.5-10.1 [facility] Serum or plasma creatinine m easurement (mass/volume)Ordered By: Hayder Bob on 04-12-2023 Creatinine [Mass/Vol] 0.92 mg/dL 0.55-1.02 [facility] Comment on above: The validity of the calculated GFR & GFRAA in patients over 70 years has not been determined. Clinical correlation is essential. Serum or plasma urea nitroge n measurement (mass/volume)Ordered By: Hayder Bob on 04-12-2023 Urea nitrogen [Mass/Vol] 16 mg/dL 7-18 [facility] Thin prep Papanicolaou smear with manual screeningOrdered By: Hayder Bob on 04-12-2023 Thin prep Papanicolaou smear with manual screening 7 5-15 [facility] Upper respiratory specimen i nfluenza A virus, influenza B virus, and severe acute respiratory syndromOrdered By: Hayder Bob on 04-12-2023 Upper respiratory specimen influenza A virus, influenza B virus, and severe acute respiratory syndrom [facility] XR Chest 2 Viewson No acute cardiopulmonary disease. Stable appearance of the chest. Report Dictated on Electronically Signed By: Demetrius Thompson MD Electronically Signed Date/Time: 03/29/2023 8:26 AM EST [facility] Patient Name: DAYANA BRIGGS : 1950 Exam Date/Time: 03/28/2023 09:15 Procedure: XR CHEST [...] on the right. No acute osseous findings. [facility] Demetrius Thompson M D - 03/29/2023 Patient Name: DAYANA BRIGGS : 1950 Exam Date/Time: 03/28/2023 09:15 Procedure: XR CHEST [...] on the right. No acute osseous findings. IMPRESSION: No acute cardiopulmonary disease. Stable appearance of the chest. Report Dictated on Electronically Signed By: Demetrius Thompson MD Electronically Signed Date/Time: 03/29/2023 8:26 AM EST [facility] XR Chest 2 ViewsOrdered By: Demetrius Thompson on 03-29-2023 [facility] Work Phone: XR Chest 2 Viewson 3 Radiology Study observation (narrative) [facility] Comprehensive metabolic 1998 panelon 03-24-2023 Albumin [Mass/Vol] 4.2 g/dL 3.6 - 5.1 g/dL [facility] Albumin/Globulin [Mass ratio] 1.4 {ratio} [facility] ALP [Catalytic activity/Vol] 74 U/L 37 - 153 U/L [facility] ALT [Catalytic activity/Vol] 11 U/L 6 - 29 U/L [facility] AST [Catalytic activity/Vol] 14 U/L 10 - 35 U/L [facility] Bilirubin [Mass/Vol] 0.6 mg/dL 0.2 - 1 .2 mg/dL [facility] Calcium [Mass/Vol] 9.6 mg/dL 8.6 - 10. 4 mg/dL [facility] Chloride [Moles/Vol] 102 mmol/L 98 - 11 0 mmol/L [facility] CO2 [Moles/Vol] 26 mmol/L 20 - 32 mmol/L [facility] Creatinine [Mass/Vol] 0.84 mg/dL 0.60 - 1.00 mg/dL [facility] GFR/1.73 sq M.predicted among non-blacks MDRD (S/P/Bld) [Vol rate/Area] 75 mL/min/{1.73_m2} > OR = 60 mL/min/1.73 m2 [facility] Globulin (S) [Mass/Vol] 3.0 g/dL [facility] Glucose [Mass/Vol] 97 mg/dL 65 - 99 mg/dL [facility] Comment on above: Fasting reference interval Potassium [Moles/Vol] 4.3 mmol/L 3.5 - 5.3 mmol/L [facility] Protein [Mass/Vol] 7.2 g/dL 6.1 - 8.1 g/dL [facility] Sodium [Moles/Vol] 138 mmol/L 135 - 146 mmol/L [facility] Urea nitrogen [Mass/Vol] 21 mg/dL 7 - 25 mg/dL [facility] Urea nitrogen/Creatinine [Mass ratio] SEE NOTE: [facility] Comment on above: Not Reported: BUN an d Creatinine are within reference range. Lipid 1996 panelon 3 Cholesterol [Mass/Vol] 234 mg/dL High [facility] - 200 mg/dL [facility] Cholesterol in HDL [Mass/Vol] 92 mg/dL > OR = 50 [facility] Cholesterol in LDL [Mass/Vol] 123 mg/dL High mg/dL (calc) [facility] Comment on above: Reference range: <10 0 Desirable range <100 mg/dL for primary prevention; <70 mg/dL for patients with CHD or diabetic patients with > or = 2 CHD risk factors. LDL-C is now calculated using the Bree calculation, which is a validated novel method providing better accuracy than the Friedewald equation in the estimation of LDL-C. Behzad SS et al. ROCHELLE. 2013;310(19): 1184-1252 (http://education.[employer]/faq/NHJ874) Cholesterol non HDL [Mass/Vol] 142 mg/dL High [facility] Comment on above: For patients with di abetes plus 1 major ASCVD risk factor, treating to a non-HDL-C goal of <100 mg/dL (LDL-C of <70 mg/dL) is considered a therapeutic option. Cholesterol.total/Choles terol in HDL [Mass ratio] 2.5 {ratio} [facility] Interpretation and review of laboratory results Abnormal [facility] Triglyceride [Mass/Vol] 91 mg/dL NINF - 150 mg/dL [facility] No Panel Informationon 03-24 [facility] TSHon 03-24-2023 TSH Qn 0.59 m[IU]/L [facility] Basophil percentageOrdered B y: Mumtaz Field on 01-16-2023 Bilirubin [Mass/Vol] 0.30 mg/dL 0.20-1.00 [facility] Comment on above: For patients on eltr ombopag therapy, use of Dimension [place] TBIL is not recommended. Chloride [Moles/Vol] 104 mmol/L 98-107 [facility] Glucose [Mass/Vol] 100 mg/dL 74-106 [facility] Comment on above: Fasting Glucose resu lt from 100 to 125 mg/dL suggests IMPAIRED HOMEOSTASIS per A.D.A. criteria. Potassium [Moles/Vol] 4.0 mmol/L 3.5-5.1 [facility] Protein [Mass/Vol] 7.7 g/dL 6.4-8.2 [facility] Sodium [Moles/Vol] 137 mmol/L 136-145 [facility] Laboratory - Chemistry and C hemistry - challengeOrdered By: Mumtaz Field on 01-16-2023 ALP [Catalytic activity/Vol] 128 U/L 45-117 [facility] ALT [Catalytic activity/Vol] 24 U/L 13-56 [facility] CO2 [Moles/Vol] 29.0 mmol/L 21.0-32.0 [facility] Globulin (S) [Mass/Vol] 4.6 g/dL 2.2-4.2 [facility] Urea nitrogen/Creatinine [Mass ratio] 14.8 mg/mg 10-20 [facility] No Panel InformationOrdered By: Mumtaz Field on 01-16-2023 Estimated GFR (MDRD) Amer 89 mL/min >60 [facility] Comment on above: GFR Calc Estimated GFR (MDRD) Non-Af Amer 74 mL/min >60 [facility] Comment on above: Non- GFR Calc Vitamin D 25-Hydroxy 41.6 ng/mL [facility] Comment on above: Vitamin D 25(OH) Sta tus Range Deficiency <20 ng/mL (50nmol/L) Insufficiency 20 - 30 ng/mL (50 - 75 nmol/L) Sufficiency 30 - 100 ng/mL (75 - 250 nmol/L) Toxicity >100 ng/mL (>250 nmol/L) Serum or plasma albumin radha urement (mass/volume)Ordered By: Mumtaz Field on 01-16-2023 Albumin [Mass/Vol] 3.1 g/dL 3.2-5.0 [facility] Serum or plasma albumin/glob ulin mass ratioOrdered By: Mumtaz Field on 01-16-2023 Albumin/Globulin [Mass ratio] 0.7 {ratio} 0.9-2.4 [facility] Serum or plasma calcium radha urement (mass/volume)Ordered By: Mumtaz Field on 01-16-2023 Calcium [Mass/Vol] 9.1 mg/dL 8.5-10.1 [facility] Serum or plasma creatinine m easurement (mass/volume)Ordered By: Mumtaz Field on 01-16-2023 Creatinine [Mass/Vol] 0.81 mg/dL 0.55-1.02 [facility] Comment on above: The validity of the calculated GFR & GFRAA in patients over 70 years has not been determined. Clinical correlation is essential. Serum or plasma urea nitroge n measurement (mass/volume)Ordered By: Mumtaz Field on 01-16-2023 Urea nitrogen [Mass/Vol] 12 mg/dL 7-18 [facility] Thin prep Papanicolaou smear with manual screeningOrdered By: Mumtaz Field on 01-16-2023 Thin prep Papanicolaou smear with manual screening 19 U/L 15-37 [facility] Thin prep Papanicolaou smear with manual screening 4 5-15 [facility] Absolute lymphocyte countOrd ered By: Dr. Godfrey on 08-16-2022 Lymphocytes Auto (Unsp spec) [#/Vol] 0.44 10*3/uL 0.83-4.51 [facility] Basophil percentageOrdered B y: Dr. Godfrey on 08-16-2022 Basophil percentage 10-25 SEEN /hpf 0-5 [facility] Basophils/100 WBC (Bld) 0.2 % 0-1 [facility] Chloride [Moles/Vol] 105 mmol/L 98-107 [facility] Eosinophils/100 WBC (Bld) 0.0 % 0-5 [facility] Glucose [Mass/Vol] 141 mg/dL 74-106 [facility] Comment on above: Fasting Glucose resu lt greater than or equal to 126 mg/dL suggests DIABETES MELLITUS per A.D.A. criteria. Neutrophils (Bld) [#/Vol] 22.1 10*3/uL 2.0-7.7 [facility] Neutrophils/100 WBC (Bld) 95.5 % 47-70 [facility] Potassium [Moles/Vol] 4.2 mmol/L 3.5-5.1 [facility] Sodium [Moles/Vol] 137 mmol/L 136-145 [facility] WBC (Bld) [#/Vol] 23.2 10*3/uL 4.4-11.0 [facility] Bilirubin Test strip Ql (U)O rdered By: Dr. Godfrey on 08-16-2022 Bilirubin Ql (U) Negative Negative [facility] Blood erythrocytes count (nu mber/volume)Ordered By: Dr. Godfrey on 08-16-2022 RBC (Bld) [#/Vol] 4.55 10*6/uL 4.2-5.4 [facility] Blood hemoglobin measurement (mass/volume)Ordered By: Dr. Godfrey on 08-16-2022 Hemoglobin (Bld) [Mass/Vol] 12.5 g/dL 12.0-15.0 [facility] [facility]/100 leukoc ytesOrdered By: Dr. Godfrey on 08-16-2022 Lymphocytes/100 WBC (Bld) 1.9 % 19-41 [facility] Blood manual differential co mment interpretation (narrative result)Ordered By: Dr. Godfrey on 08-16-2022 Manual differential comment Ford (Bld) [Interp] SCANNED [facility] Blood monocytes/100 leukocyt esOrdered By: Dr. Godfrey on 08-16-2022 Monocytes/100 WBC (Bld) 1.5 % 0-10 [facility] Blood platelet mean volumeOr dered By: Dr. Godfrey on 08-16-2022 Platelet mean volume (Bld) [Entitic vol] 9.4 fL 6.2-12.0 [facility] Determination of erythrocyte mean corpuscular volume (MCV)Ordered By: Dr. Godfrey on 08-16-2022 MCV (RBC) [Entitic vol] 86.4 fL 81-99 [facility] Hematocrit Auto (Bld) [Volum e fraction]Ordered By: Dr. Godfrey on 08-16-2022 Hematocrit (Bld) [Volume fraction] 39.3 % 37-47 [facility] Ketones Test strip Ql (U)Ord ered By: Dr. Godfrey on 08-16-2022 Ketones Ql (U) Negative Negative [facility] Laboratory - Chemistry and C hemistry - challengeOrdered By: Dr. Godfrey on 08-16-2022 CO2 [Moles/Vol] 26.0 mmol/L 21.0-32.0 [facility] Urea nitrogen/Creatinine [Mass ratio] 18.6 mg/mg 10-20 [facility] Laboratory - Hematology and Cell countsOrdered By: Dr. Godfrey on 08-16-2022 Erythrocyte distribution width (RBC) [Entitic vol] 48.8 fL 35.1-43.9 [facility] Erythrocyte distribution width (RBC) [Ratio] 15.4 % 11.6-14.6 [facility] Immature granulocytes/100 WBC (Bld) 0.900 % 0.0-0.9 [facility] Comment on above: IG% - Immature Granu locytes (promyelocytes, myelocytes and metamyelocytes) > 1% indicates that a LEFT SHIFT is Present. MCH (RBC) [Entitic mass] 27.5 pg 27.0-32.0 [facility] Nucleated RBC/100 WBC (Bld) [Ratio] 0 % 0-5 [facility] MCHC Auto (RBC) [Mass/Vol]Or dered By: Dr. Godfrey on 08-16-2022 MCHC (RBC) [Mass/Vol] 31.8 g/dL 32-36 [facility] Mucus LM Ql (Urine sed)Order ed By: Dr. Godfrey on 08-16-2022 Mucus Ql (Urine sed) 0 SEEN /hpf [facility] Nitrite Test strip Ql (U)Ord ered By: Dr. Godfrey on 08-16-2022 Nitrite Ql (U) Negative Negative [facility] No Panel InformationOrdered By: Dr. Godfrey on 08-16-2022 Estimated Creatinine Clearance Calc 38.73 ml/min [facility] Estimated GFR (MDRD) Amer 69 mL/min >60 [facility] Comment on above: GFR Calc Estimated GFR (MDRD) Non-Af Amer 57 mL/min >60 [facility] Comment on above: Non- GFR Calc Platelets bldOrdered By: Dr. Godfrey on 08-16-2022 Platelets (Bld) [#/Vol] 521 10*3/uL 150-450 [facility] Protein Test strip Ql (U)Ord ered By: Dr. Godfrey on 08-16-2022 Protein Ql (U) 15 mg/dl Negative [facility] Serum or plasma calcium radha urement (mass/volume)Ordered By: Dr. Godfrey on 08-16-2022 Calcium [Mass/Vol] 9.9 mg/dL 8.5-10.1 [facility] Serum or plasma creatinine m easurement (mass/volume)Ordered By: Dr. Godfrey on 08-16-2022 Creatinine [Mass/Vol] 1.02 mg/dL 0.55-1.02 [facility] Comment on above: The validity of the calculated GFR & GFRAA in patients over 70 years has not been determined. Clinical correlation is essential. Serum or plasma urea nitroge n measurement (mass/volume)Ordered By: Dr. Godfrey on 08-16-2022 Urea nitrogen [Mass/Vol] 19 mg/dL 7-18 [facility] Squamous epithelial cells de tection in urine sediment by light microscopyOrdered By: Dr. Godfrey on 08-16-2022 Epithelial cells.squamous LM Ql (Urine sed) 0-5 SEEN /hpf 5-10 [facility] Thin prep Papanicolaou smear with manual screeningOrdered By: Dr. Godfrey on 08-16-2022 Thin prep Papanicolaou smear with manual screening 6 5-15 [facility] Urine blood detectionOrdered By: Dr. Godfrey on 08-16-2022 RBC Ql (U) 10 /ul Negative [facility] RBC Ql (U) 0-5 SEEN /hpf 0-5 [facility] Urine clarityOrdered By: Dr. Godfrey on 08-16-2022 Clarity (U) Clear Clear [facility] Urine color determinationOrd ered By: Dr. Godfrey on 08-16-2022 Color (U) Yellow Yellow [facility] Urine glucose detectionOrder ed By: Dr. Godfrey on 08-16-2022 Glucose Ql (U) Normal mg/dl Normal [facility] Urine leukocyte esterase det ection by dipstickOrdered By: Dr. Godfrey on 08-16-2022 Leukocyte esterase Test strip Ql (U) 500 /ul Negative [facility] Urine pHOrdered By: Dr. Elvie muniz on 08-16-2022 pH (U) 6.0 [pH] 5.0 - 8.0 [facility] Urine sediment bacteria coun t by microscopy (number/high power field)Ordered By: Dr. Godfrey on 08-16-2022 Bacteria LM.HPF (Urine sed) [#/Area] RARE /hpf None Seen [facility] Urine specific gravity measu rementOrdered By: Dr. Godfrey on 08-16-2022 Specific gravity (U) [Rel density] 1.010 1.002-1.030 [facility] Urobilinogen Auto test strip Ql (U)Ordered By: Dr. Godfrey on 08-16-2022 Urobilinogen Ql (U) Normal mg/dl Normal [facility] Absolute lymphocyte countOrd ered By: Dr. Merida on 06-20-2022 Lymphocytes Auto (Unsp spec) [#/Vol] 0.31 10*3/uL 0.83-4.51 [facility] Basophil percentageOrdered B y: Dr. Merida on 06-20-2022 Basophils/100 WBC (Bld) 0.1 % 0-1 [facility] Chloride [Moles/Vol] 105 mmol/L 98-107 [facility] Eosinophils/100 WBC (Bld) 0.0 % 0-5 [facility] Glucose [Mass/Vol] 152 mg/dL 74-106 [facility] Comment on above: Fasting Glucose resu lt greater than or equal to 126 mg/dL suggests DIABETES MELLITUS per A.D.A. criteria. Neutrophils (Bld) [#/Vol] 14.8 10*3/uL 2.0-7.7 [facility] Neutrophils/100 WBC (Bld) 91.0 % 47-70 [facility] Potassium [Moles/Vol] 3.8 mmol/L 3.5-5.1 [facility] Sodium [Moles/Vol] 139 mmol/L 136-145 [facility] WBC (Bld) [#/Vol] 16.3 10*3/uL 4.4-11.0 [facility] Blood erythrocytes count (nu mber/volume)Ordered By: Dr. Merida on 06-20-2022 RBC (Bld) [#/Vol] 4.21 10*6/uL 4.2-5.4 [facility] Blood hemoglobin measurement (mass/volume)Ordered By: Dr. Merida on 06-20-2022 Hemoglobin (Bld) [Mass/Vol] 11.8 g/dL 12.0-15.0 [facility] Blood lymphocytes/100 leukoc ytesOrdered By: Dr. Merida on 06-20-2022 Lymphocytes/100 WBC (Bld) 1.9 % 19-41 [facility] Blood manual differential co mment interpretation (narrative result)Ordered By: Dr. Merida on 06-20-2022 Manual differential comment Ford (Bld) [Interp] SCANNED [facility] Blood monocytes/100 leukocyt esOrdered By: Dr. Merida on 06-20-2022 Monocytes/100 WBC (Bld) 6.7 % 0-10 [facility] Blood platelet mean volumeOr dered By: Dr. Merida on 06-20-2022 Platelet mean volume (Bld) [Entitic vol] 9.4 fL 6.2-12.0 [facility] Determination of erythrocyte mean corpuscular volume (MCV)Ordered By: Dr. Merida on 06-20-2022 MCV (RBC) [Entitic vol] 85.3 fL 81-99 [facility] Hematocrit Auto (Bld) [Volum e fraction]Ordered By: Dr. Merida on 06-20-2022 Hematocrit (Bld) [Volume fraction] 35.9 % 37-47 [facility] Influenza virus A and B and SARS-CoV-2 (COVID-19) Ag panel - Upper respiratory specimOrdered By: Dr. Merida on 06-20-2022 SARS-CoV-2 (COVID-19) RNA NETO+probe Ql (Resp) [facility] - Chemistry and C hemistry - challengeOrdered By: Dr. Merida on 06-20-2022 CO2 [Moles/Vol] 25.0 mmol/L 21.0-32.0 [facility] Natriuretic peptide B (Bld) [Mass/Vol] 42.6 pg/mL 0-100 [facility] Urea nitrogen/Creatinine [Mass ratio] 15.5 mg/mg 10-20 [facility] - Hematology and Cell countsOrdered By: Dr. Merida on 06-20-2022 Erythrocyte distribution width (RBC) [Entitic vol] 44.5 fL 35.1-43.9 [facility] Erythrocyte distribution width (RBC) [Ratio] 14.5 % 11.6-14.6 [facility] Immature granulocytes/100 WBC (Bld) 0.300 % 0.0-0.9 [facility] Comment on above: IG% - Immature Granu locytes (promyelocytes, myelocytes and metamyelocytes) > 1% indicates that a LEFT SHIFT is Present. MCH (RBC) [Entitic mass] 28.0 pg 27.0-32.0 [facility] Nucleated RBC/100 WBC (Bld) [Ratio] 0 % 0-5 [facility] MCHC Auto (RBC) [Mass/Vol]Or dered By: Dr. Merida on 06-20-2022 MCHC (RBC) [Mass/Vol] 32.9 g/dL 32-36 [facility] No Panel InformationOrdered By: Dr. Merida on 06-20-2022 Estimated Creatinine Clearance Calc 35.91 ml/min [facility] Estimated GFR (MDRD) Amer 63 mL/min >60 [facility] Comment on above: GFR Calc Estimated GFR (MDRD) Non-Af Amer 52 mL/min >60 [facility] Comment on above: Non- GFR Calc Troponin I High Sensitivity 16 pg/mL 3.0-54.0 [facility] Comment on above: Please Note: New Mirella t Units and Gender Specific Reference Ranges. For more information see Policy Stat Procedure [place] High Sensitivity Troponin (TNIH) and attachments. Platelets bldOrdered By: Dr. Merida on 06-20-2022 Platelets (Bld) [#/Vol] 403 10*3/uL 150-450 [facility] Serum or plasma calcium radha urement (mass/volume)Ordered By: Dr. Merida on 06-20-2022 Calcium [Mass/Vol] 9.7 mg/dL 8.5-10.1 [facility] Serum or plasma creatinine m easurement (mass/volume)Ordered By: Dr. Merida on 06-20-2022 Creatinine [Mass/Vol] 1.10 mg/dL 0.55-1.02 [facility] Comment on above: The validity of the calculated GFR & GFRAA in patients over 70 years has not been determined. Clinical correlation is essential. Serum or plasma urea nitroge n measurement (mass/volume)Ordered By: Dr. Merida on 06-20-2022 Urea nitrogen [Mass/Vol] 17 mg/dL 7-18 [facility] Thin prep Papanicolaou smear with manual screeningOrdered By: Dr. Merida on 06-20-2022 Thin prep Papanicolaou smear with manual screening 9 5-15 [facility] XR Chest 2 Viewson 3 Chronic changes. The previously seen nodule has decreased in size, now measuring approximately 1.2 cm. Report Dictated on Electronically Signed By: Good Anderson Electronically Signed Date/Time: 05/26/2022 3:32 PM EST [facility] Patient Name: DAYANA BRIGGS Exam Date/Time: 05/26/2022 14:10 Procedure: XR CHEST 2 VIEWS Ordering Provider: MOY JAMES Reason For Exam: CHEST, PA & LATERAL: INDICATION: Dyspnea on exertion COMPARISON: 10/08/[address] of the chest dated 05/13/2021 PA and lateral views of the chest [...] changes are seen involving the right shoulder. [facility] Good Anderson DO - 05/26/2022 Patient Name: DAYANA BRIGGS Exam Date/Time: 05/26/2022 14:10 Procedure: XR CHEST 2 VIEWS Ordering Provider: MOY JAMES Reason For Exam: CHEST, PA & LATERAL: INDICATION: Dyspnea on exertion COMPARISON: 10/08/[address] of the chest dated 05/13/2021 PA and lateral views of the chest [...] in size, now measuring approximately 1.2 cm. Report Dictated on Electronically Signed By: Good Anderson Electronically Signed Date/Time: 05/26/2022 3:32 PM EST [facility] Study observation (narrative) [facility] XR Chest 2 ViewsOrdered By: Good Anderson on 05-26-2022 [facility] Work Phone: Influenza virus A and B and SARS-CoV-2 (COVID-19) Ag panel - Upper respiratory specimOrdered By: Dr. Merida on 04-23-2022 SARS-CoV-2 (COVID-19) RNA NETO+probe Ql (Resp) [facility] Absolute lymphocyte countOrd ered By: Dr. Davison on 03-28-2022 Lymphocytes Auto (Unsp spec) [#/Vol] 1.63 10*3/uL 0.83-4.51 [facility] Basophil percentageOrdered B y: Dr. Davison on 03-28-2022 Basophils/100 WBC (Bld) 0.1 % 0-1 [facility] Chloride [Moles/Vol] 106 mmol/L 98-107 [facility] Eosinophils/100 WBC (Bld) 0.1 % 0-5 [facility] Glucose [Mass/Vol] 93 mg/dL 74-106 [facility] Neutrophils (Bld) [#/Vol] 10.6 10*3/uL 2.0-7.7 [facility] Neutrophils/100 WBC (Bld) 76.6 % 47-70 [facility] Potassium [Moles/Vol] 3.2 mmol/L 3.5-5.1 [facility] Sodium [Moles/Vol] 140 mmol/L 136-145 [facility] WBC (Bld) [#/Vol] 13.8 10*3/uL 4.4-11.0 [facility] Blood erythrocytes count (nu mber/volume)Ordered By: Dr. Davison on 03-28-2022 RBC (Bld) [#/Vol] 4.20 10*6/uL 4.2-5.4 [facility] Blood hemoglobin measurement (mass/volume)Ordered By: Dr. Davison on 03-28-2022 Hemoglobin (Bld) [Mass/Vol] 11.7 g/dL 12.0-15.0 [facility] Blood lymphocytes/100 leukoc ytesOrdered By: Dr. Davison on 03-28-2022 Lymphocytes/100 WBC (Bld) 11.8 % 19-41 [facility] Blood manual differential co mment interpretation (narrative result)Ordered By: Dr. Davison on 03-28-2022 Manual differential comment Ford (Bld) [Interp] COMMENT [facility] Comment on above: MONOCYTOSIS. Blood monocytes/100 leukocyt esOrdered By: Dr. Davison on 03-28-2022 Monocytes/100 WBC (Bld) 10.9 % 0-10 [facility] Blood platelet mean volumeOr dered By: Dr. Davison on 03-28-2022 Platelet mean volume (Bld) [Entitic vol] 10.2 fL 6.2-12.0 [facility] Determination of erythrocyte mean corpuscular volume (MCV)Ordered By: Dr. Davison on 03-28-2022 MCV (RBC) [Entitic vol] 86.7 fL 81-99 [facility] Hematocrit Auto (Bld) [Volum e fraction]Ordered By: Dr. Davison on 03-28-2022 Hematocrit (Bld) [Volume fraction] 36.4 % 37-47 [facility] Influenza virus A and B and SARS-CoV-2 (COVID-19) Ag panel - Upper respiratory specimOrdered By: Dr. Davison on 03-28-2022 SARS-CoV-2 (COVID-19) RNA NETO+probe Ql (Resp) [facility] Laboratory - Chemistry and C hemistry - challengeOrdered By: Dr. Davison on 03-28-2022 CO2 [Moles/Vol] 30.0 mmol/L 21.0-32.0 [facility] Urea nitrogen/Creatinine [Mass ratio] 19.4 mg/mg 10-20 [facility] Laboratory - Hematology and Cell countsOrdered By: Dr. Davison on 03-28-2022 Erythrocyte distribution width (RBC) [Entitic vol] 43.1 fL 35.1-43.9 [facility] Erythrocyte distribution width (RBC) [Ratio] 13.6 % 11.6-14.6 [facility] Immature granulocytes/100 WBC (Bld) 0.500 % 0.0-0.9 [facility] Comment on above: IG% - Immature Granu locytes (promyelocytes, myelocytes and metamyelocytes) > 1% indicates that a LEFT SHIFT is Present. MCH (RBC) [Entitic mass] 27.9 pg 27.0-32.0 [facility] Nucleated RBC/100 WBC (Bld) [Ratio] 0 % 0-5 [facility] MCHC Auto (RBC) [Mass/Vol]Or dered By: Dr. Davison on 03-28-2022 MCHC (RBC) [Mass/Vol] 32.1 g/dL 32-36 [facility] No Panel InformationOrdered By: Dr. Davison on 03-28-2022 Estimated Creatinine Clearance Calc 43.08 ml/min [facility] Estimated GFR (MDRD) Amer 77 mL/min >60 [facility] Comment on above: GFR Calc Estimated GFR (MDRD) Non-Af Amer 63 mL/min >60 [facility] Comment on above: Non- GFR Calc Platelets bldOrdered By: Dr. Davison on 03-28-2022 Platelets (Bld) [#/Vol] 496 10*3/uL 150-450 [facility] Review by pathologiston Pathologist review Ford (Unsp spec) [Interp] Hodan ramos [facility] Work Phone: Review by pathologistOrdered By: Dr. Davison on 03-28-2022 Pathologist review Ford (Unsp spec) [Interp] Reviewed [facility] Comment on above: Previous reported re sult: Hodan ramos Edited by: RGOOD on 03/29/22:1300Neutrophilic leukocytosis.Thrombocytosis.Clinical correlation necessary.Blaine Dunn M.D. 03/29/22 AMENDED REPORT 03/29/22 1300 PATH REV previously reported as: August Serum or plasma calcium radha urement (mass/volume)Ordered By: Dr. Davison on 03-28-2022 Calcium [Mass/Vol] 9.3 mg/dL 8.5-10.1 [facility] Serum or plasma creatinine m easurement (mass/volume)Ordered By: Dr. Davison on 03-28-2022 Creatinine [Mass/Vol] 0.93 mg/dL 0.55-1.02 [facility] Comment on above: The validity of the calculated GFR & GFRAA in patients over 70 years has not been determined. Clinical correlation is essential. Serum or plasma urea nitroge n measurement (mass/volume)Ordered By: Dr. Davison on 03-28-2022 Urea nitrogen [Mass/Vol] 18 mg/dL 7-18 [facility] Thin prep Papanicolaou smear with manual screeningOrdered By: Dr. Davison on 03-28-2022 Thin prep Papanicolaou smear with manual screening 4 5-15 [facility] Absolute lymphocyte counton 02-14-2022 Lymphocytes Auto (Unsp spec) [#/Vol] 1.70 10*3/uL 0.83-4.51 [facility] Work Phone: Basophil percentageon 2021 Basophils/100 WBC (Bld) 0.2 % 0-1 [facility] Work Phone: Chloride [Moles/Vol] 104 mmol/L 98-107 [facility] Work Phone: Eosinophils/100 WBC (Bld) 0.4 % 0-5 [facility] Work Phone: Glucose [Mass/Vol] 100 mg/dL 74-106 [facility] Work Phone: Comment on above: Fasting Glucose resu lt from 100 to 125 mg/dL suggests IMPAIRED HOMEOSTASIS per A.D.A. criteria. Neutrophils (Bld) [#/Vol] 14.0 10*3/uL 2.0-7.7 [facility] Work Phone: Neutrophils/100 WBC (Bld) 79.7 % 47-70 [facility] Work Phone: Potassium [Moles/Vol] 3.6 mmol/L 3.5-5.1 [facility] Work Phone: [phone] Sodium [Moles/Vol] 139 mmol/L 136-145 [facility] Work Phone: [phone] WBC (Bld) [#/Vol] 17.6 10*3/uL 4.4-11.0 [facility] Work Phone: [phone] Blood erythrocytes count (nu mber/volume)on 02-14-2022 RBC (Bld) [#/Vol] 4.20 10*6/uL 4.2-5.4 [facility] Work Phone: [phone] Blood hemoglobin measurement (mass/volume)on 02-14-2022 Hemoglobin (Bld) [Mass/Vol] 11.9 g/dL 12.0-15.0 [facility] Work Phone: [phone] Blood lymphocytes/100 leukoc yteson 02-14-2022 Lymphocytes/100 WBC (Bld) 9.6 % 19-41 [facility] Work Phone: [phone] Blood manual differential co mment interpretation (narrative result)on 02-14-2022 Manual differential comment Ford (Bld) [Interp] SCANNED [facility] Work Phone: [phone] Comment on above: MONOCYTOSIS NOTED Blood monocytes/100 leukocyt eson 02-14-2022 Monocytes/100 WBC (Bld) 9.8 % 0-10 [facility] Work Phone: [phone] Blood platelet mean volumeon 02-14-2022 Platelet mean volume (Bld) [Entitic vol] 9.8 fL 6.2-12.0 [facility] Work Phone: [phone] Determination of erythrocyte mean corpuscular volume (MCV)on 02-14-2022 MCV (RBC) [Entitic vol] 87.1 fL 81-99 [facility] Work Phone: [phone] Hematocrit Auto (Bld) [Volum e fraction]on 02-14-2022 Hematocrit (Bld) [Volume fraction] 36.6 % 37-47 [facility] Work Phone: [phone] Laboratory - Chemistry and C hemistry - challengeon 02-14-2022 CO2 [Moles/Vol] 29.0 mmol/L 21.0-32.0 [facility] Work Phone: [phone] Urea nitrogen/Creatinine [Mass ratio] 20.7 mg/mg 10-20 [facility] Work Phone: [phone] Laboratory - Hematology and Cell countson 02-14-2022 Erythrocyte distribution width (RBC) [Entitic vol] 43.7 fL 35.1-43.9 [facility] Work Phone: [phone] Erythrocyte distribution width (RBC) [Ratio] 13.7 % 11.6-14.6 [facility] Work Phone: [phone] Immature granulocytes/100 WBC (Bld) 0.300 % 0.0-0.9 [facility] Work Phone: [phone] Comment on above: IG% - Immature Granu locytes (promyelocytes, myelocytes and metamyelocytes) > 1% indicates that a LEFT SHIFT is Present. MCH (RBC) [Entitic mass] 28.3 pg 27.0-32.0 [facility] Work Phone: [phone] Nucleated RBC/100 WBC (Bld) [Ratio] 0 % 0-5 [facility] Work Phone: [phone] MCHC Auto (RBC) [Mass/Vol]on 02-14-2022 MCHC (RBC) [Mass/Vol] 32.5 g/dL 32-36 [facility] Work Phone: [phone] No Panel Informationon 02-14 Estimated Creatinine Clearance Calc 41.74 ml/min [facility] Work Phone: [phone] Estimated GFR (MDRD) Amer 74 mL/min >60 [facility] Work Phone: [phone] Comment on above: GFR Calc Estimated GFR (MDRD) Non-Af Amer 61 mL/min >60 [facility] Work Phone: [phone] Comment on above: Non- GFR Calc Platelets bldon 02-14-2022 Platelets (Bld) [#/Vol] 405 10*3/uL 150-450 [facility] Work Phone: Review by pathologiston 01-22 Pathologist review Ford (Unsp spec) [Interp] Hodan ramos [facility] Work Phone: Pathologist review Ford (Unsp spec) [Interp] Reviewed [facility] Work Phone: Comment on above: Previous reported re sult: Hodan ramos Edited by: RGOPARDIP on 02/15/22:1247Neutrophilic leukocytosis.Clinical correlation suggested.Marino Wilkes D.O. 02/15/22 AMENDED REPORT 02/15/22 1247 PATH REV previously reported as: Hodan ramos Serum or plasma calcium radha urement (mass/volume)on 02-14-2022 Calcium [Mass/Vol] 9.9 mg/dL 8.5-10.1 [facility] Work Phone: Serum or plasma creatinine m easurement (mass/volume)on 02-14-2022 Creatinine [Mass/Vol] 0.96 mg/dL 0.55-1.02 [facility] Work Phone: Comment on above: The validity of the calculated GFR & GFRAA in patients over 70 years has not been determined. Clinical correlation is essential. Serum or plasma urea nitroge n measurement (mass/volume)on 02-14-2022 Urea nitrogen [Mass/Vol] 20 mg/dL 7-18 [facility] Work Phone: Thin prep Papanicolaou smear with manual screeningon 02-14-2022 Thin prep Papanicolaou smear with manual screening 6 5-15 [facility] Work Phone: CULT./ST. RESPIRATORYon CULT./ST. RESPIRATORY CULT./ST. RESPIRAT ORY --> Status: F Moderate normal respiratory scott. 1 Organism Haemophilus influenzae Moderate Ampicillin/Penicillin Resistant (Beta lactamase positive) Normal [facility] Comment on above: Performed By: #### S /GRM, CS/RE #### [facility] [address] [place] [id number] STAIN GRAMon 01-27-2022 STAIN GRAM STAIN GRAM --> Statu s: F Many polymorphonuclear cells/lpf. No epithelial cells/lpf. Moderate gram positive cocci in clusters. Moderate gram negative bacilli. Moderate gram negative diplococci. Few gram positive cocci in pairs and chains. Rare gram positive bacilli. No epithelial cells/lpf. Moderate gram positive cocci in clusters. Moderate gram negative bacilli. Moderate gram negative diplococci. Few gram positive cocci in pairs and chains. Rare gram positive bacilli. Normal [facility] Comment on above: Performed By: #### S /GRM, CS/RE #### [facility] [address] [place] [address] Complete PFT Study Pre and P ost Bronchodilatoron 11-16-2021 Name: DAYANA BRIGGS PatientID: [id number] Gender: Female Birthdate: 1950 Study Date: 11/16/2021 9:36:31 A Age: 71 Race: White or Height: 62.0 in, 157.5 cm Weight: 166.0 lbs, 75.5 kg Smoke Status: Quit Pack Years: 141Tbco Prod: Cigarettes Ordering Physician: [id number] Interpreting Physician: [id number] Commissioning Agent: TENZIN Oneal Location: [facility] Diagnosis: CENTRILOBULAR EMPHYSEMA,TOBACCO USE DISORDER IN REMISSION Spirometry Units Pred PreDrug Pre%Pred Post Post%Pred %Change FVC L,btps 2.79 1.84 66. 2.47 89. 34. FEV1 L,btps 2.11 0.65 31. 0.70 33. 9. FEV1/FVC (%) % 76. 35. 46. 28. 37. -19. XIE43-15% L/s 1.83 0.17 9. 0.17 9. 0. [...] /MIP cmH2O -68.81 PEmax /MEP cmH2O 90.11 [employer] NOTES Many attempts. No consistent results. Best [...] a spacer that was instructed and dispensed. 73090- PRE/[place] [address]- DLCO 59725- FRC GAS Tests to perform: [id number] - FULL PFT STUDY WITH BRONCHODILATOR PHYSICIAN INTERPRETATION The quality of the study is good. The flow volume loop is markedly coved with an abrupt fall in expiratory flows consistent with dynamic airway collapse. There is a very severe obstructive ventilatory defect with samll airways disease, a significant bronchodilator response, air trapping, and impaired gas exchange. [facility] Kathryn Velazquez MD - 11/16/2021 Name: DAYANA BRIGGS PatientID: [id number] Gender: Female Birthdate: 1950 Study Date: 11/16/2021 9:36:31 A Age: 71 Race: White or Height: 62.0 in, 157.5 cm Weight: 166.0 lbs, 75.5 kg Smoke Status: Quit Pack Years: 141[employer] Prod: Cigarettes Ordering Physician: [id number] Interpreting Physician: [id number] Commissioning Agent: TENZIN Testing Location: [facility] Diagnosis: CENTRILOBULAR EMPHYSEMA,TOBACCO USE DISORDER IN REMISSION Spirometry Units Pred PreDrug Pre%Pred Post Post%Pred %Change FVC L,btps 2.79 1.84 66. 2.47 89. 34. FEV1 L,btps 2.11 0.65 31. 0.70 33. 9. FEV1/FVC (%) % 76. 35. 46. 28. 37. -19. AOW27-43% L/s 1.83 0.17 9. 0.17 9. 0. [...] /MIP cmH2O -68.81 PEmax /MEP cmH2O 90.11 [employer] NOTES Many attempts. No consistent results. Best [...] moist pc daily. Pt wears 2L NC /. Pt was given an Albuterol MDI x4 puffs via a spacer that was instructed and dispensed. 54785- PRE/[place] [address]- DLCO 83985- FRC GAS Tests to perform: [id number] - FULL PFT STUDY WITH BRONCHODILATOR PHYSICIAN INTERPRETATION The quality of the study is good. The flow volume loop is markedly coved with an abrupt fall in expiratory flows consistent with dynamic airway collapse. There is a very severe obstructive ventilatory defect with samll airways disease, a significant bronchodilator response, air trapping, and impaired gas exchange. [facility] Work Phone: Complete PFT Study Pre and P ost BronchodilatorOrdered By: Kathryn Varghese on 11-16-2021 [facility] Work Phone: Absolute lymphocyte counton 10-28-2021 Lymphocytes Auto (Unsp spec) [#/Vol] 2.08 10*3/uL 0.83-4.51 [facility] Work Phone: Basophil percentageon 2021 Basophils/100 WBC (Bld) 0.1 % 0-1 [facility] Work Phone: Bilirubin [Mass/Vol] 0.20 mg/dL 0.20-1.00 [facility] Work Phone: Comment on above: For patients on eltr ombopag therapy, use of Dimension [place] TBIL is not recommended. Chloride [Moles/Vol] 104 mmol/L 98-107 [facility] Work Phone: Eosinophils/100 WBC (Bld) 0.2 % 0-5 [facility] Work Phone: Glucose [Mass/Vol] 89 mg/dL 74-106 [facility] Work Phone: Neutrophils (Bld) [#/Vol] 12.9 10*3/uL 2.0-7.7 [facility] Work Phone: Neutrophils/100 WBC (Bld) 76.9 % 47-70 [facility] Work Phone: Potassium [Moles/Vol] 3.5 mmol/L 3.5-5.1 [facility] Work Phone: Protein [Mass/Vol] 8.0 g/dL 6.4-8.2 [facility] Work Phone: Sodium [Moles/Vol] 140 mmol/L 136-145 [facility] Work Phone: WBC (Bld) [#/Vol] 16.8 10*3/uL 4.4-11.0 [facility] Work Phone: Blood erythrocytes count (nu mber/volume)on 10-28-2021 RBC (Bld) [#/Vol] 4.25 10*6/uL 4.2-5.4 [facility] Work Phone: Blood hemoglobin measurement (mass/volume)on 10-28-2021 Hemoglobin (Bld) [Mass/Vol] 12.1 g/dL 12.0-15.0 [facility] Work Phone: Blood lymphocytes/100 leukoc yteson 10-28-2021 Lymphocytes/100 WBC (Bld) 12.4 % 19-41 [facility] Work Phone: Blood manual differential co mment interpretation (narrative result)on 10-28-2021 Manual differential comment Ford (Bld) [Interp] SEE COMMENT [facility] Work Phone: Comment on above: MONOCYTOSIS NOTED Blood monocytes/100 leukocyt eson 10-28-2021 Monocytes/100 WBC (Bld) 9.6 % 0-10 [facility] Work Phone: Blood platelet adequacy dete ction by light microscopyon 10-28-2021 Platelets LM Ql (Bld) [facility] Blood platelet mean volumeon 10-28-2021 Platelet mean volume (Bld) [Entitic vol] 9.6 fL 6.2-12.0 [facility] Work Phone: Determination of erythrocyte mean corpuscular volume (MCV)on 10-28-2021 MCV (RBC) [Entitic vol] 88.2 fL 81-99 [facility] Work Phone: Hematocrit Auto (Bld) [Volum e fraction]on 10-28-2021 Hematocrit (Bld) [Volume fraction] 37.5 % 37-47 [facility] Work Phone: Laboratory - Chemistry and C hemistry - challengeon 10-28-2021 ALP [Catalytic activity/Vol] 106 U/L 45-117 [facility] Work Phone: ALT [Catalytic activity/Vol] 23 U/L 13-56 [facility] Work Phone: CO2 [Moles/Vol] 31.0 mmol/L 21.0-32.0 [facility] Work Phone: Globulin (S) [Mass/Vol] 4.5 g/dL 2.2-4.2 [facility] Work Phone: [phone] Urea nitrogen/Creatinine [Mass ratio] 17.2 mg/mg 10-20 [facility] Work Phone: [phone] Laboratory - Hematology and Cell countson 10-28-2021 Anisocytosis Ql (Bld) RARE [facility] Work Phone: [phone] Erythrocyte distribution width (RBC) [Entitic vol] 45.5 fL 35.1-43.9 [facility] Work Phone: [phone] Erythrocyte distribution width (RBC) [Ratio] 14.1 % 11.6-14.6 [facility] Work Phone: [phone] Immature granulocytes/100 WBC (Bld) 0.800 % 0.0-0.9 [facility] Work Phone: [phone] Comment on above: IG% - Immature Granu locytes (promyelocytes, myelocytes and metamyelocytes) > 1% indicates that a LEFT SHIFT is Present. MCH (RBC) [Entitic mass] 28.5 pg 27.0-32.0 [facility] Work Phone: [phone] Nucleated RBC/100 WBC (Bld) [Ratio] 0 % 0-5 [facility] Work Phone: [phone] MCHC Auto (RBC) [Mass/Vol]on 10-28-2021 MCHC (RBC) [Mass/Vol] 32.3 g/dL 32-36 [facility] Work Phone: [phone] Macrocytes detectionon 10-28 Macrocytes Ql (Bld) RARE [facility] Work Phone: No Panel Informationon 10-28 Estimated Creatinine Clearance Calc 40.47 ml/min [facility] Work Phone: [phone] Estimated GFR (MDRD) Amer 72 mL/min >60 [facility] Work Phone: [phone] Comment on above: GFR Calc Estimated GFR (MDRD) Non-Af Amer 59 mL/min >60 [facility] Work Phone: Comment on above: Non- GFR Calc Platelets bldon 10-28-2021 Platelets (Bld) [#/Vol] 395 10*3/uL 150-450 [facility] Work Phone: [phone] RBC morphologyon 10-28-2021 RBC morphology finding Nom (Bld) N CHROM NORMAL NORM C&C [facility] Work Phone: [phone] Review by pathologiston Pathologist review Ford (Unsp spec) [Interp] Hodan ramos [facility] Work Phone: [phone] Pathologist review Ford (Unsp spec) [Interp] Reviewed [facility] Work Phone: [phone] Comment on above: Previous reported re sult: Hodan ramos Edited by: ABHISHEK on 11/02/21:0714Neutrophilic leukocytosis.Clinical correlation necessary.Blaine Dunn M.D. 11/02/21 AMENDED REPORT 11/02/21 0714 PATH REV previously reported as: Hodan ramos Serum or plasma albumin radha urement (mass/volume)on 10-28-2021 Albumin [Mass/Vol] 3.5 g/dL 3.2-5.0 [facility] Work Phone: Serum or plasma albumin/glob ulin mass ratioon 10-28-2021 Albumin/Globulin [Mass ratio] 0.8 {ratio} 0.9-2.4 [facility] Work Phone: Serum or plasma calcium radha urement (mass/volume)on 10-28-2021 Calcium [Mass/Vol] 9.6 mg/dL 8.5-10.1 [facility] Work Phone: Serum or plasma creatinine m easurement (mass/volume)on 10-28-2021 Creatinine [Mass/Vol] 0.99 mg/dL 0.55-1.02 [facility] Work Phone: Comment on above: The validity of the calculated GFR & GFRAA in patients over 70 years has not been determined. Clinical correlation is essential. Serum or plasma urea nitroge n measurement (mass/volume)on 10-28-2021 Urea nitrogen [Mass/Vol] 17 mg/dL 7-18 [facility] Work Phone: Thin prep Papanicolaou smear with manual screeningon 10-28-2021 Thin prep Papanicolaou smear with manual screening 16 U/L 15-37 [facility] Work Phone: Thin prep Papanicolaou smear with manual screening 5 5-15 [facility] Work Phone: [facility] DIGITAL DIAGNOSTIC UNILATERAL LEFTon 09-08-2021 Patient Name: DAYANA BRIGGS Mammography ACCESSION EXAM DATE/TIME PROCEDURE ORDERING PROVIDER [id number] 09/08/2021 13:25 EDT MG Breast Tomosynthesis BLANKDO GIOVANNI МАРИНА Castillo CPT code 95661 [id number] Reason For Exam (MG Breast Tomosynthesis Left) lump in left breast, lower outer quadrant, 5 oclock Report TIME SINCE LAST MAMMOGRAM: Last mammogram was performed 4 months ago. REASON FOR EXAM: clinical finding. INDICATED PROBLEM: Indicated problem(s): left breast lump or thickening. PROCEDURE: MG BREAST TOMOSYNTHESIS LEFT: SEPTEMBER 08, 2021 - 2D/3D Procedure 3D CC and MLO view(s) were taken of the left breast. 2D CC and MLO view(s) were taken of the left breast. Prior study comparison: April 28, 2021, bilateral MG breast tomosynthesis bl scr performed at [facility]. February 16, 2020, bilateral MG breast tomosynthesis bl performed at [facility]. October 18, 2018, bilateral MG breast tomosynthesis bl performed at [facility]. TISSUE DENSITY: BIRADS B - There are scattered fibroglandular densities. . FINDINGS: The patient presents for left breast lump felt by the referring clinician. No new masses, architectural distortions, or suspiciously clustered microcalcifications are seen. Ultrasound was performed for further evaluation. Targeted left breast ultrasound at the site of palpable concern at 5:00, 7 cm from the nipple, demonstrates normal breast tissues. No mass or other abnormality was identified. IMPRESSION: No mammographic or targeted sonographic evidence of malignancy in the left breast. Markings on images: BB's = Nipples; skin lesions Open chemehuevi = Palpable Line = Scar US BREAST LIMITED LEFT: SEPTEMBER 08, 2021 - Mammography Report 2D digital mammography and tomosynthesis imaging were performed and reviewed with CAD. ASSESSMENT: Category 1 Negative (Overall) RECOMMENDATION: Routine screening mammogram of both breasts in 8 months. . Report Dictated on --- Final --- Signed Date and Time: 09/08/2021 2:04 pm Signed by: MD JAY, LEONOR Wisdom [facility] Leonor Thompson MD - 09/08/2021 Patient Name: DAYANA BRIGGS Mammography ACCESSION EXAM DATE/TIME PROCEDURE ORDERING PROVIDER [id number] 09/08/2021 13:25 EDT MG Breast Tomosynthesis DO ZEPEDA PAUL E. Left CPT code 80805 [id number] Reason For Exam (MG Breast Tomosynthesis Left) lump in left breast, lower outer quadrant, 5 oclock Report TIME SINCE LAST MAMMOGRAM: Last mammogram was performed 4 months ago. REASON FOR EXAM: clinical finding. INDICATED PROBLEM: Indicated problem(s): left breast lump or thickening. PROCEDURE: MG BREAST TOMOSYNTHESIS LEFT: SEPTEMBER 08, 2021 - 2D/3D Procedure 3D CC and MLO view(s) were taken of the left breast. 2D CC and MLO view(s) were taken of the left breast. Prior study comparison: April 28, 2021, bilateral MG breast tomosynthesis bl scr performed at [facility]. February 16, 2020, bilateral MG breast tomosynthesis bl performed at [facility]. October 18, 2018, bilateral MG breast tomosynthesis bl performed at [facility]. TISSUE DENSITY: BIRADS B - There are scattered fibroglandular densities. . FINDINGS: The patient presents for left breast lump felt by the referring clinician. No new masses, architectural distortions, or suspiciously clustered microcalcifications are seen. Ultrasound was performed for further evaluation. Targeted left breast ultrasound at the site of palpable concern at 5:00, 7 cm from the nipple, demonstrates normal breast tissues. No mass or other abnormality was identified. IMPRESSION: No mammographic or targeted sonographic evidence of malignancy in the left breast. Markings on images: BB's = Nipples; skin lesions Open chemehuevi = Palpable Line = Scar US BREAST LIMITED LEFT: SEPTEMBER 08, 2021 - Mammography Report 2D digital mammography and tomosynthesis imaging were performed and reviewed with CAD. ASSESSMENT: Category 1 Negative (Overall) RECOMMENDATION: Routine screening mammogram of both breasts in 8 months. . Report Dictated on --- Final --- Signed Date and Time: 09/08/2021 2:04 pm Signed by: MD JAY, LEONOR Wisdom [facility] Work Phone: Radiology Study observation (narrative) [facility] Work Phone: [facility] DIGITAL DIAGNOSTIC UNILATERAL LEFTOrdered By: Leonor Thompson on 09-08-2021 [facility] Work Phone: MG Breast Tomosynthesis Diag nostic Lefton 09-08-2021 MG Breast Tomosynthesis Diagnostic Left Patient Name: DAYANA BRIGGS Mammography ACCESSION EXAM DATE/TIME PROCEDURE ORDERING PROVIDER [id number] 09/08/2021 13:25 EDT MG Breast Tomosynthesis DO ZEPEDA PAUL E. Left CPT code 14344 [id number] Reason For Exam (MG Breast Tomosynthesis Left) lump in left breast, lower outer quadrant, 5 oclock Report TIME SINCE LAST MAMMOGRAM: Last mammogram was performed 4 months ago. REASON FOR EXAM: clinical finding. INDICATED PROBLEM: Indicated problem(s): left breast lump or thickening. PROCEDURE: MG BREAST TOMOSYNTHESIS LEFT: SEPTEMBER 08, 2021 - 2D/3D Procedure 3D CC and MLO view(s) were taken of the left breast. 2D CC and MLO view(s) were taken of the left breast. Prior study comparison: April 28, 2021, bilateral MG breast tomosynthesis bl scr performed at [facility]. February 16, 2020, bilateral MG breast tomosynthesis bl performed at [facility]. October 18, 2018, bilateral MG breast tomosynthesis bl performed at [facility]. TISSUE DENSITY: BIRADS B - There are scattered fibroglandular densities. . FINDINGS: The patient presents for left breast lump felt by the referring clinician. No new masses, architectural distortions, or suspiciously clustered microcalcifications are seen. Ultrasound was performed for further evaluation. Targeted left breast ultrasound at the site of palpable concern at 5:00, 7 cm from the nipple, demonstrates normal breast tissues. No mass or other abnormality was identified. IMPRESSION: No mammographic or targeted sonographic evidence of malignancy in the left breast. Markings on images: BB's = Nipples; skin lesions Open chemehuevi = Palpable Line = Scar US BREAST LIMITED LEFT: SEPTEMBER 08, 2021 - Mammography Report 2D digital mammography and tomosynthesis imaging were performed and reviewed with CAD. ASSESSMENT: Category 1 Negative (Overall) RECOMMENDATION: Routine screening mammogram of both breasts in 8 months. . Report Dictated on Final Signed Date and Time: 09/08/2021 2:04 pm Signed by: MD THOMPSON KERISTEN L [facility] US BREAST LIMITED LEFTon Patient Name: DAYANA BRIGGS Ultrasound ACCESSION EXAM DATE/TIME PROCEDURE ORDERING PROVIDER [id number] 09/08/2021 13:51 EDT US Breast Limited Left DO ZEPEDA PAUL E. CPT code 07905 Reason For Exam (US Breast Limited Left) . Report TIME SINCE LAST MAMMOGRAM: Last mammogram was performed 4 months ago. REASON FOR EXAM: clinical finding. INDICATED PROBLEM: Indicated problem(s): left breast lump or thickening. PROCEDURE: MG BREAST TOMOSYNTHESIS LEFT: SEPTEMBER 08, 2021 - 2D/3D Procedure 3D CC and MLO view(s) were taken of the left breast. 2D CC and MLO view(s) were taken of the left breast. Prior study comparison: April 28, 2021, bilateral MG breast tomosynthesis bl scr performed at [facility]. February 16, 2020, bilateral MG breast tomosynthesis bl performed at [facility]. October 18, 2018, bilateral MG breast tomosynthesis bl performed at [facility]. TISSUE DENSITY: BIRADS B - There are scattered fibroglandular densities. . FINDINGS: The patient presents for left breast lump felt by the referring clinician. No new masses, architectural distortions, or suspiciously clustered microcalcifications are seen. Ultrasound was performed for further evaluation. Targeted left breast ultrasound at the site of palpable concern at 5:00, 7 cm from the nipple, demonstrates normal breast tissues. No mass or other abnormality was identified. IMPRESSION: No mammographic or targeted sonographic evidence of malignancy in the left breast. Markings on images: BB's = Nipples; skin lesions Open chemehuevi = Palpable Line = Scar US BREAST LIMITED LEFT: SEPTEMBER 08, 2021 - 2D digital mammography and tomosynthesis imaging were performed and reviewed with CAD. Ultrasound Report ASSESSMENT: Category 1 Negative (Overall) RECOMMENDATION: Routine screening mammogram of both breasts in 8 months. . Report Dictated on --- Final --- Signed Date and Time: 09/08/2021 2:04 pm Signed by: MD THOMPSON KERISTEN L [facility] Leonor Thompson MD - 09/08/2021 Patient Name: DAYANA BRIGGS Ultrasound ACCESSION EXAM DATE/TIME PROCEDURE ORDERING PROVIDER [id number] 09/08/2021 13:51 EDT US Breast Limited Left DO ZEPEDA PAUL E. CPT code 28684 Reason For Exam (US Breast Limited Left) . Report TIME SINCE LAST MAMMOGRAM: Last mammogram was performed 4 months ago. REASON FOR EXAM: clinical finding. INDICATED PROBLEM: Indicated problem(s): left breast lump or thickening. PROCEDURE: MG BREAST TOMOSYNTHESIS LEFT: SEPTEMBER 08, 2021 - 2D/3D Procedure 3D CC and MLO view(s) were taken of the left breast. 2D CC and MLO view(s) were taken of the left breast. Prior study comparison: April 28, 2021, bilateral MG breast tomosynthesis bl scr performed at [facility]. February 16, 2020, bilateral MG breast tomosynthesis bl performed at [facility]. October 18, 2018, bilateral MG breast tomosynthesis bl performed at [facility]. TISSUE DENSITY: BIRADS B - There are scattered fibroglandular densities. . FINDINGS: The patient presents for left breast lump felt by the referring clinician. No new masses, architectural distortions, or suspiciously clustered microcalcifications are seen. Ultrasound was performed for further evaluation. Targeted left breast ultrasound at the site of palpable concern at 5:00, 7 cm from the nipple, demonstrates normal breast tissues. No mass or other abnormality was identified. IMPRESSION: No mammographic or targeted sonographic evidence of malignancy in the left breast. Markings on images: BB's = Nipples; skin lesions Open chemehuevi = Palpable Line = Scar US BREAST LIMITED LEFT: SEPTEMBER 08, 2021 - 2D digital mammography and tomosynthesis imaging were performed and reviewed with CAD. Ultrasound Report ASSESSMENT: Category 1 Negative (Overall) RECOMMENDATION: Routine screening mammogram of both breasts in 8 months. . Report Dictated on --- Final --- Signed Date and Time: 09/08/2021 2:04 pm Signed by: MD THOMPSON KERISTEN L [facility] Work Phone: [facility] Work Phone: Radiology Study observation (narrative) [facility] Work Phone: US Breast Limited Lefton US Breast Limited Left Patient Name: DAYANA ARAUJO Ultrasound ACCESSION EXAM DATE/TIME PROCEDURE ORDERING PROVIDER [id number] 09/08/2021 13:51 EDT US Breast Limited Left DO ZEPEDA PAUL E. CPT code 08348 Reason For Exam (US Breast Limited Left) . Report TIME SINCE LAST MAMMOGRAM: Last mammogram was performed 4 months ago. REASON FOR EXAM: clinical finding. INDICATED PROBLEM: Indicated problem(s): left breast lump or thickening. PROCEDURE: MG BREAST TOMOSYNTHESIS LEFT: SEPTEMBER 08, 2021 - 2D/3D Procedure 3D CC and MLO view(s) were taken of the left breast. 2D CC and MLO view(s) were taken of the left breast. Prior study comparison: April 28, 2021, bilateral MG breast tomosynthesis bl scr performed at [facility]. February 16, 2020, bilateral MG breast tomosynthesis bl performed at [facility]. October 18, 2018, bilateral MG breast tomosynthesis bl performed at [facility]. TISSUE DENSITY: BIRADS B - There are scattered fibroglandular densities. . FINDINGS: The patient presents for left breast lump felt by the referring clinician. No new masses, architectural distortions, or suspiciously clustered microcalcifications are seen. Ultrasound was performed for further evaluation. Targeted left breast ultrasound at the site of palpable concern at 5:00, 7 cm from the nipple, demonstrates normal breast tissues. No mass or other abnormality was identified. IMPRESSION: No mammographic or targeted sonographic evidence of malignancy in the left breast. Markings on images: BB's = Nipples; skin lesions Open chemehuevi = Palpable Line = Scar US BREAST LIMITED LEFT: SEPTEMBER 08, 2021 - 2D digital mammography and tomosynthesis imaging were performed and reviewed with CAD. Ultrasound Report ASSESSMENT: Category 1 Negative (Overall) RECOMMENDATION: Routine screening mammogram of both breasts in 8 months. . Report Dictated on Final Signed Date and Time: 09/08/2021 2:04 pm Signed by: MD THOMPSON KERISTEN L [facility] Absolute lymphocyte counton 07-27-2021 Lymphocytes Auto (Unsp spec) [#/Vol] 0.66 10*3/uL 0.83-4.51 [facility] Work Phone: Basophil percentageon 2021 Basophils/100 WBC (Bld) 0.5 % 0-1 [facility] Work Phone: Eosinophils/100 WBC (Bld) 0.0 % 0-5 [facility] Work Phone: Neutrophils (Bld) [#/Vol] 11.4 10*3/uL 2.0-7.7 [facility] Work Phone: Neutrophils/100 WBC (Bld) 92.9 % 47-70 [facility] Work Phone: WBC (Bld) [#/Vol] 12.3 10*3/uL 4.4-11.0 [facility] Work Phone: Chloride [Moles/Vol] 105 mmol/L 98-107 [facility] Work Phone: Glucose [Mass/Vol] 123 mg/dL 74-106 [facility] Work Phone: Comment on above: Fasting Glucose resu lt from 100 to 125 mg/dL suggests IMPAIRED HOMEOSTASIS per A.D.A. criteria. Potassium [Moles/Vol] 4.1 mmol/L 3.5-5.1 [facility] Work Phone: Sodium [Moles/Vol] 138 mmol/L 136-145 [facility] Work Phone: Blood erythrocytes count (nu mber/volume)on 07-27-2021 RBC (Bld) [#/Vol] 4.14 10*6/uL 4.2-5.4 [facility] Work Phone: Blood hemoglobin measurement (mass/volume)on 07-27-2021 Hemoglobin (Bld) [Mass/Vol] 11.7 g/dL 12.0-15.0 [facility] Work Phone: Blood lymphocytes/100 leukoc yteson 07-27-2021 Lymphocytes/100 WBC (Bld) 5.4 % 19-41 [facility] Work Phone: Blood monocytes/100 leukocyt eson 07-27-2021 Monocytes/100 WBC (Bld) 0.9 % 0-10 [facility] Work Phone: [phone] Blood platelet mean volumeon 07-27-2021 Platelet mean volume (Bld) [Entitic vol] 9.5 fL 6.2-12.0 [facility] Work Phone: [phone] Determination of erythrocyte mean corpuscular volume (MCV)on 07-27-2021 MCV (RBC) [Entitic vol] 83.1 fL 81-99 [facility] Work Phone: [phone] Hematocrit Auto (Bld) [Volum e fraction]on 07-27-2021 Hematocrit (Bld) [Volume fraction] 34.4 % 37-47 [facility] Work Phone: [phone] Laboratory - Chemistry and C hemistry - challengeon 07-27-2021 CO2 [Moles/Vol] 30.0 mmol/L 21.0-32.0 [facility] Work Phone: [phone] Urea nitrogen/Creatinine [Mass ratio] 15.8 mg/mg 10-20 [facility] Work Phone: [phone] Laboratory - Hematology and Cell countson 07-27-2021 Erythrocyte distribution width (RBC) [Entitic vol] 42.5 fL 35.1-43.9 [facility] Work Phone: [phone] Erythrocyte distribution width (RBC) [Ratio] 14.1 % 11.6-14.6 [facility] Work Phone: [phone] Immature granulocytes/100 WBC (Bld) 0.300 % 0.0-0.9 [facility] Work Phone: [phone] Comment on above: IG% - Immature Granu locytes (promyelocytes, myelocytes and metamyelocytes) > 1% indicates that a LEFT SHIFT is Present. MCH (RBC) [Entitic mass] 28.3 pg 27.0-32.0 [facility] Work Phone: [phone] Nucleated RBC/100 WBC (Bld) [Ratio] 0 % 0-5 [facility] Work Phone: [phone] MCHC Auto (RBC) [Mass/Vol]on 07-27-2021 MCHC (RBC) [Mass/Vol] 34.0 g/dL 32-36 [facility] Work Phone: No Panel Informationon 07-27 Estimated Creatinine Clearance Calc 39.67 ml/min [facility] Work Phone: Estimated GFR (MDRD) Amer 70 mL/min >60 [facility] Work Phone: Comment on above: GFR Calc Estimated GFR (MDRD) Non-Af Amer 58 mL/min >60 [facility] Work Phone: Comment on above: Non- GFR Calc Platelets bldon 07-27-2021 Platelets (Bld) [#/Vol] 401 10*3/uL 150-450 [facility] Work Phone: Serum or plasma calcium radha urement (mass/volume)on 07-27-2021 Calcium [Mass/Vol] 10.0 mg/dL 8.5-10.1 [facility] Work Phone: Serum or plasma creatinine m easurement (mass/volume)on 07-27-2021 Creatinine [Mass/Vol] 1.01 mg/dL 0.55-1.02 [facility] Work Phone: Comment on above: The validity of the calculated GFR & GFRAA in patients over 70 years has not been determined. Clinical correlation is essential. Serum or plasma urea nitroge n measurement (mass/volume)on 07-27-2021 Urea nitrogen [Mass/Vol] 16 mg/dL 7-18 [facility] Work Phone: Thin prep Papanicolaou smear with manual screeningon 07-27-2021 Thin prep Papanicolaou smear with manual screening 3 5-15 [facility] Work Phone: CT CHEST WO CONTRASTon 05-13 Patient Name: DAYANA BRIGGS Computed Tomography ACCESSION EXAM DATE/TIME PROCEDURE ORDERING PROVIDER [id number] 05/13/2021 11:[address] Thorax w/o Contrast KATHRYN VARGHESE CPT code 12375 Reason For Exam (CT Thorax w/o Contrast) Pulmonary nodule evaluation; None of the following: Age < 35 years, fever, high-risk appearing nodule, or history of cancer; Follow-up, single pulmonary nodule; Solid nodule; High-risk exposure; Pulmonary nodule > 8 mm Report EXAMINATION: CT CHEST WITHOUT CONTRAST INDICATIONS: Pulmonary nodule evaluation; None of the following: Age < 35 years, fever, high-risk appearing nodule, or history of cancer; Follow-up, single pulmonary nodule; Solid nodule; High-risk exposure; Pulmonary nodule > 8 mm COMPARISON: CT chest 12/21/2020. PET CT 01/27/2021. TECHNIQUE: Helically acquired axial CT images of the chest without intravenous contrast, with sagittal and coronal reformats. FINDINGS: LUNGS AND AIRWAYS: The central tracheobronchial [...] is unremarkable. No supraclavicular lymphadenopathy. MEDIASTINUM AND PAYT: No mediastinal lymphadenopathy. No hilar lymphadenopathy, within [...] or blastic bone lesions. No acute fractures. Computed Tomography Report IMPRESSION: Dominant nodule in the right upper lobe currently measures 1.3 cm, decreased in size from CT chest 12/21/2020 at which time measured 1.6 cm. Findings may represent a resolving infectious/inflammatory nodule. Continued follow-up is recommended. Moderate to severe emphysematous changes. Report Dictated on --- Final --- Dictating Physician: MD PADMINI, SUSI JON Signed Date and Time: 05/13/2021 1:31 pm Signed by: MD AMOS WASSIM OSAMA Transcribed Date and Time: 05/13/2021 1:32 Susi Mckay MD - 05/13/2021 Patient Name: DAYANA BRIGGS Computed Tomography ACCESSION EXAM DATE/TIME PROCEDURE ORDERING PROVIDER [id number] 05/13/2021 11:[address] Thorax w/o Contrast HALIMAKATHRYN CPT code 88544 Reason For Exam (CT Thorax w/o Contrast) Pulmonary nodule evaluation; None of the following: Age < 35 years, fever, high-risk appearing nodule, or history of cancer; Follow-up, single pulmonary nodule; Solid nodule; High-risk exposure; Pulmonary nodule > 8 mm Report EXAMINATION: CT CHEST WITHOUT CONTRAST INDICATIONS: Pulmonary nodule evaluation; None of the following: Age < 35 years, fever, high-risk appearing nodule, or history of cancer; Follow-up, single pulmonary nodule; Solid nodule; High-risk exposure; Pulmonary nodule > 8 mm COMPARISON: CT chest 12/21/2020. PET CT 01/27/2021. TECHNIQUE: Helically acquired axial CT images of the chest without intravenous contrast, with sagittal and coronal reformats. FINDINGS: LUNGS AND AIRWAYS: The central tracheobronchial [...] is unremarkable. No supraclavicular lymphadenopathy. MEDIASTINUM AND PATY: No mediastinal lymphadenopathy. No hilar lymphadenopathy, within [...] or blastic bone lesions. No acute fractures. Computed Tomography Report IMPRESSION: Dominant nodule in the right upper lobe currently measures 1.3 cm, decreased in size from CT chest 12/21/2020 at which time measured 1.6 cm. Findings may represent a resolving infectious/inflammatory nodule. Continued follow-up is recommended. Moderate to severe emphysematous changes. Report Dictated on --- Final --- Dictating Physician: MD PADMINI, SUSI JON Signed Date and Time: 05/13/2021 1:31 pm Signed by: MD PADMINI, SUSI JON Transcribed Date and Time: 05/13/2021 1:32 [facility] Work Phone: Radiology Study observation (narrative) [facility] Work Phone: CT CHEST WO CONTRASTOrdered By: Susi Amos on 05-13-2021 [facility] Work Phone: CT Chest w/o Contraston 04-24 CT Chest w/o Contrast [facility]: [id number] Comput[facility] Tomography ACCESSION EXAM DATE/TIME PROCEDURE ORDERING PROVIDER [id number] 05/13/2021 11:[address] Thorax w/o Contrast KATHRYN VARGHESE CPT code 28893 Reason For Exam (CT Thorax w/o Contrast) Pulmonary nodule evaluation; None of the following: Age < 35 years, fever, high-risk appearing nodule, or history of cancer; Follow-up, single pulmonary nodule; Solid nodule; High-risk exposure; Pulmonary nodule > 8 mm Report EXAMINATION: CT CHEST WITHOUT CONTRAST INDICATIONS: Pulmonary nodule evaluation; None of the following: Age < 35 years, fever, high-risk appearing nodule, or history of cancer; Follow-up, single pulmonary nodule; Solid nodule; High-risk exposure; Pulmonary nodule > 8 mm COMPARISON: CT chest 12/21/2020. PET CT 01/27/2021. TECHNIQUE: Helically acquired axial CT images of the chest without intravenous contrast, with sagittal and coronal reformats. FINDINGS: LUNGS AND AIRWAYS: The central tracheobronchial [...] is unremarkable. No supraclavicular lymphadenopathy. MEDIASTINUM AND PATY: No mediastinal lymphadenopathy. No hilar lymphadenopathy, within [...] or blastic bone lesions. No acute fractures. Computed Tomography Report IMPRESSION: Dominant nodule in the right upper lobe currently measures 1.3 cm, decreased in size from CT chest 12/21/2020 at which time measured 1.6 cm. Findings may represent a resolving infectious/inflammatory nodule. Continued follow-up is recommended. Moderate to severe emphysematous changes. Report Dictated on Final Dictating Physician: MD PADMINI, SUSI JON Signed Date and Time: 05/13/2021 1:31 pm Signed by: MD AMOS WASSIM OSAMA Transcribed Date and Time: 05/13/2021 1:32 [facility] MG Breast Tomosynthesis Scr Blon 04-28-2021 MG Breast Tomosynthesis Scr Bl Patient Name: DAYANA BRIGGS Mammography ACCESSION EXAM DATE/TIME PROCEDURE ORDERING PROVIDER [id number] 04/28/2021 10:18 EST MG Breast Tomosynthesis DO ZEPEDA PAUL E. BI Scr CPT code 04897 82312 Reason For Exam (MG Breast Tomosynthesis BI Scr) screening Report TIME SINCE LAST MAMMOGRAM: Last mammogram was performed 1 year and 2 months ago. REASON FOR EXAM: screening, asymptomatic. PROCEDURE: MG BREAST TOMOSYNTHESIS BL SCR: APRIL 28, 2021 - 2D/3D Procedure 3D Bilateral CC and MLO view(s) were taken. 2D Bilateral CC and MLO view(s) were taken. Prior study comparison: February 16, 2020, bilateral MG breast tomosynthesis bl performed at [facility]. October 18, 2018, bilateral MG breast tomosynthesis bl performed at [facility]. July 04, 2017, bilateral MG mammogram digital screening performed at [facility]. TISSUE DENSITY: BIRADS B - There are scattered fibroglandular densities. . RISK ALERT: The Cancer Risk Assessment scores below the recommendation of this report contain an outcome above the normal risk range. PATIENT CANCER HISTORY: No Personal History of Cancer FAMILY CANCER HISTORY: Brother Lung Cancer age 70 Brother Prostate Cancer age 60 Paternal Cousin Breast Cancer age 35 FINDINGS: No suspicious masses, architectural distortions or suspiciously clustered microcalcifications are identified. There is no evidence of skin thickening or nipple retraction. There are no significant changes when compared with prior studies. No mammographic evidence of malignancy. Markings on images: BB's = Nipples; skin lesions Open chemehuevi = Palpable Mammography Report Line = Scar 2D digital mammography and tomosynthesis imaging were performed and reviewed with CAD. ASSESSMENT: Category 1 Negative RECOMMENDATION: Routine screening mammogram of both breasts in 1 year. . Report Dictated on Cancer Risk Assessment: This risk assessment is based on patient provided information collected in a risk survey taken at the time of this examination. Lifetime breast cancer risk: Average Risk - If greater than or equal to 20%, consider annual mammogram and annual screening Breast MRI or follow up in high risk clinic. A score of Average Risk indicates a score of less than 20%. Is the patient at elevated risk based on the HBOC criteria? Yes (Hereditary Breast and Ovarian Cancer) - If yes, consider genetic counseling and testing with high risk follow up. Is the patient at elevated risk based on the Pradhan Syndrome criteria? No - If yes, consider genetic counseling and testing with high risk follow up. Final Signed Date and Time: 04/28/2021 3:41 pm Signed by: MD HO ANN C. [facility] CULT./ST. RESPIRATORYon 11-2 CULT./ST. RESPIRATORY CULT./ST. RESPIRAT ORY --> Status: F Few normal respiratory scott. [facility] Comment on above: Performed By: #### S /JOSEP, CS/RE #### [address] Gram Stainon 03-10-2021 Gram Stain Result Moderate polymorphonuclear cells/lpf. Few epithelial cells/lpf. Rare gram positive cocci in pairs and chains. [facility] Test Performed by [facility], [address] [place] [address] LAB [facility] STAIN GRAMon 03-10-2021 STAIN GRAM STAIN GRAM --> Statu s: F Moderate polymorphonuclear cells/lpf. Few epithelial cells/lpf. Rare gram positive cocci in pairs and chains. Few epithelial cells/lpf. Rare gram positive cocci in pairs and chains. [facility] Comment on above: Performed By: #### S /JOSEP, CS/RE #### [address] SKULL BASE TO MID THI GHOrdered By: Kathryn Varghese on 01-27-2021 Patient Name: DAYANA BRIGGS PET ACCESSION EXAM DATE/TIME PROCEDURE ORDERING PROVIDER [id number] 01/27/2021 13:00 EDT PT w/ CT Scan Skull Base KATHRYN VARGHESE to Midthigh CPT code 42548 A9552 Reason For Exam (PT w/ CT Scan Skull Base to Midthigh) Solitary pulmonary nodule Report PET/CT CLINICAL INDICATION: SPN Following the intravenous administration of 12.0 mCi of fluorine-18 fluorodeoxyglucose (FDG) a PET scan of the torso was acquired after an approximately one hour delay. Blood glucose level at the time of injection was 121 mg/dl. Contemporaneously, noncontrast axial CT images were obtained using low dose technique. The images were reconstructed in three orthogonal planes and digitally coregistered. The CT data was used for attenuation correction as well. COMPARISON: CT chest dated 12/21/2020 NECK AND CHEST: There is a noncalcified [...] CT follow-up is recommended to ensure stability. PET Report Report Dictated on --- Final --- Dictating Physician: MD LINARES JONATHAN R Signed Date and Time: 01/27/2021 2:54 pm Signed by: MD LINARES JONATHAN R Transcribed Date and Time: 01/27/2021 2:55 [facility] Work Phone: [place], [facility] Incoming Radiology Results From [facility] - 01/27/2021 2:55 PM EDT [facility]: [id number] PET ACCESSION EXAM DATE/TIME PROCEDURE ORDERING PROVIDER [id number] 01/27/2021 13:00 EDT PT w/ CT Scan Skull Base KATHRYN VARGHESE to Midthigh CPT code 65527 A9552 Reason For Exam (PT w/ CT Scan Skull Base to Midthigh) Solitary pulmonary nodule Report PET/CT CLINICAL INDICATION: SPN Following the intravenous administration of 12.0 mCi of fluorine-18 fluorodeoxyglucose (FDG) a PET scan of the torso was acquired after an approximately one hour delay. Blood glucose level at the time of injection was 121 mg/dl. Contemporaneously, noncontrast axial CT images were obtained using low dose technique. The images were reconstructed in three orthogonal planes and digitally coregistered. The CT data was used for attenuation correction as well. COMPARISON: CT chest dated 12/21/2020 NECK AND CHEST: There is a noncalcified [...] CT follow-up is recommended to ensure stability. PET Report Report Dictated on --- Final --- Dictating Physician: MD LINARES JONATHAN R Signed Date and Time: 01/27/2021 2:54 pm Signed by: MD LINARES JONATHAN R Transcribed Date and Time: 01/27/2021 2:55 [facility] Work Phone: [phone] [facility] Work Phone: Basic Metabolic PanelOrdered By: Aubrey Dyer on 12-16-2020 Anion gap [Moles/Vol] 6 mmol/L 3 - 13 mmol/L [facility] Work Phone: [phone] Calcium [Mass/Vol] 9.9 mg/dL 8.4 - 10. 4 mg/dL [facility] Work Phone: [phone] Chloride [Moles/Vol] 99 mmol/L 98 - 10 7 mmol/L [facility] Work Phone: [phone] [Moles/Vol] 36 mmol/L High 22 - 30 mmol/L [facility] Work Phone: [phone] Creatinine [Mass/Vol] 0.86 mg/dL 0.52 - 1.25 mg/dL [facility] Work Phone: [phone] EGFR IF NonAfrican Tristanian 69.1 mL/min >60 [facility] Work Phone: [phone] Comment on above: KDIGO guidelines pro vide the following GFR categories: Stage GFR(ml/min/1.73 m2) Terms G1 >=90 Normal or high G2 60-89 Mildly decreased* G3a 45-59 Mildly to moderately decreased G3b 30-44 Moderately to severely decreased G4 15-29 Severely decreased G5 <15 Kidney failure *Relative to young adult level. In the absence of evidence of kidney damage, neither GFR category G1 nor G2 fulfill the criteria for CKD. The CKD-EPI equation is validated in individuals 18 years of age and older. Currently the best equation for estimating glomerular filtration rate (GFR) from serum creatinine in children is the Bedside Ramey equation. It is less accurate in patients with extremes of muscle mass, restriction of dietary protein, ingestion of creatine, extra-renal metabolism of creatinine, or treatment with medications that affect renal tubular creatinine secretion. GFR/1.73 sq M.predicted among blacks MDRD (S/P/Bld) [Vol rate/Area] 80.1 mL/min/{1.73_m2} >60 [facility] Work Phone: [phone] Glucose [Mass/Vol] 89 mg/dL 70 - 100 mg/dL [facility] Work Phone: [phone] Interpretation and review of laboratory results Abnormal [facility] Work Phone: [phone] Potassium [Moles/Vol] 2.8 mmol/L Low 3.5 - 5.1 mmol/L [facility] Work Phone: Sodium [Moles/Vol] 141 mmol/L 135 - 145 mmol/L [facility] Work Phone: [phone] [phone] nitrogen (BldV) [Mass/Vol] 17 mg/dL 7 - 20 mg/dL [facility] Work Phone: [phone] Test Per[facility] [place], [place] [address] [facility] Work Phone: [phone] [facility] Work Phone: [phone] XR CHEST (2 VW)Ordered By: Venessa oRdney on 10-08-2020 Patient Name: DAYANA CERNA Diagnostic Radiology ACCESSION EXAM DATE/TIME PROCEDURE ORDERING PROVIDER [id number] 10/08/2020 12:52 EDT CR Chest PA & LAT MD RODNEY MARK D CPT code 27282 Reason For Exam (CR Chest PA & LAT) sob Report PA and lateral views of the chest, 10/08/2020. Reason for examination: Shortness of breath and wheezing. COMPARISON: July 31, 2017. FINDINGS: Cardiac size is within normal limits. Pulmonary vasculature is normal. The lungs again appear hyperinflated with flattening of hemidiaphragms. There is a new focal opacity projecting over the right upper lung laterally which is of uncertain etiology. Otherwise, the lungs are largely clear. No pleural effusion or pneumothorax is identified. There are degenerative changes in the thoracic spine. Surgical clips are noted in the upper abdomen. IMPRESSION: Small opacity in the right upper lung laterally, new since the previous study. Differential considerations include a small area of infiltrate or atelectasis versus a small lung nodule. Report Dictated on --- Final --- Dictating Physician: MD ZAPATA JOE M Signed Date and Time: 10/08/2020 1:11 pm Signed by: MD ZAPATA JOE M Transcribed Date and Time: 10/08/2020 1:12 [facility] Work Phone: [place], [facility] Incoming Radiology Results From [facility] - 10/08/2020 1:12 PM EDT Patient Name: DAYANA BRIGGS Diagnostic Radiology ACCESSION EXAM DATE/TIME PROCEDURE ORDERING PROVIDER [id number] 10/08/2020 12:52 EDT CR Chest PA & LAT MD RODNEY MARK D CPT code 34394 Reason For Exam (CR Chest PA & LAT) sob Report PA and lateral views of the chest, 10/08/2020. Reason for examination: Shortness of breath and wheezing. COMPARISON: July 31, 2017. FINDINGS: Cardiac size is within normal limits. Pulmonary vasculature is normal. The lungs again appear hyperinflated with flattening of hemidiaphragms. There is a new focal opacity projecting over the right upper lung laterally which is of uncertain etiology. Otherwise, the lungs are largely clear. No pleural effusion or pneumothorax is identified. There are degenerative changes in the thoracic spine. Surgical clips are noted in the upper abdomen. IMPRESSION: Small opacity in the right upper lung laterally, new since the previous study. Differential considerations include a small area of infiltrate or atelectasis versus a small lung nodule. Report Dictated on --- Final --- Dictating Physician: MD ZAPATA JOE M Signed Date and Time: 10/08/2020 1:11 pm Signed by: MD ZAPATA JOE M Transcribed Date and Time: 10/08/2020 1:12 [facility] Work Phone: [facility] Work Phone: XR Shoulder Right 2 VWon Patient Name: DAYANA BRIGGS ---Diagnostic Radiology--- Exam Date/Time 03/09/2020 16:59:07 EST Exam CR Shoulder 2+ Views Right Ordering Physician MD OLIVIA JESSE Accession Number [id number] CPT4 Codes 79561 () Reason For Exam Injury Report RIGHT SHOULDER 3 VIEWS CLINICAL INDICATION: Injury, pain TECHNIQUE: 3 views of the right shoulder. COMPARISON: None. FINDINGS: Diffuse osteopenia. No acute fracture or dislocation. Mild/moderate degenerative change in the glenohumeral joint and less severe degenerative change in the AC joint. Soft tissues grossly unremarkable. IMPRESSION: 1. No acute osseous abnormality. 2. Degenerative change. Report Dictated on --- Final --- Dictating Physician: MD GILL WENDELL Signed Date and Time: 03/09/2020 5:20 pm Signed by: MD GILL WENDELL Transcribed Date and Time: 03/09/2020 5:21 [facility] [place] [place], [facility] Incoming Radiology Results From [facility] - 03/09/2020 5:21 PM EST Patient Name: DAYANA BRIGGS ---Diagnostic Radiology--- Exam Date/Time 03/09/2020 16:59:07 EST Exam CR Shoulder 2+ Views Right Ordering Physician MD OLIVIA JESSE Accession Number [id number] CPT4 Codes 70854 () Reason For Exam Injury Report RIGHT SHOULDER 3 VIEWS CLINICAL INDICATION: Injury, pain TECHNIQUE: 3 views of the right shoulder. COMPARISON: None. FINDINGS: Diffuse osteopenia. No acute fracture or dislocation. Mild/moderate degenerative change in the glenohumeral joint and less severe degenerative change in the AC joint. Soft tissues grossly unremarkable. IMPRESSION: 1. No acute osseous abnormality. 2. Degenerative change. Report Dictated on --- Final --- Dictating Physician: MD GILL WENDELL Signed Date and Time: 03/09/2020 5:20 pm Signed by: MD GILL WENDELL Transcribed Date and Time: 03/09/2020 5:21 [facility] Brain Natriuretic Peptideon 01-07-2020 Interpretation and review of laboratory results Abnormal [facility]ifico Natriuretic peptide B (Bld) [Mass/Vol] 176 pg/mL High 0 - 125 pg/mL [facility] [place] CTA Chest W WO (PE study)on 01-07-2020 [place], [facility] Incoming Radiology Results From [facility] - 01/07/2020 5:06 PM EDT Patient Name: DAYANA BRIGGS ---CT--- Exam Date/Time 01/07/2020 16:53:14 EDT Exam CTA Chest w/ + w/o Contrast Ordering Physician DOUG WEEMS Accession Number [id number] CPT4 Codes 61977 (), Q9967 (CT ISOVUE 370MG/ML&[id number]&ML &1) Reason For Exam SOB, hemoptysis, eval for PE Report CTA Chest w/ + w/o Contrast Date of Service: 01/07/2020 4:53 PM EDT INDICATION: SOB, hemoptysis, eval for PE DEMOGRAPHICS: 69 years old Female TECHNIQUE: Multidetector CT was performed from the thoracic inlet to the upper abdomen after nonionic intravenous contrast. For volumetric evaluation of the pulmonary arteries, Maximum Intensity Projections (MIPs) (a 3D technique as classified by the [place] [employer]) were created and the images were reviewed. CT radiation dose optimization techniques (automated exposure control, use of iterative reconstruction techniques, or adjustment of the mA or kV according to the patients size( were used to limit patient radiation dose. COMPARISON: CT chest 07/15/2014 FINDINGS: The thoracic wall is intact and unremarkable. No evidence of axillary adenopathy. The thyroid gland is unremarkable. The heart is unremarkable. No evidence of mediastinal lymphadenopathy. The pulmonary arteries show no filling defects to suggest pulmonary embolism. There is normal tapering of the distal vessels. Slightly limited evaluation of the lungs secondary to patient motion. Diffuse centrilobular emphysematous changes are noted bilaterally. No evidence of pneumothorax, pleural effusions or focal consolidations. Two low attenuated lesions are noted within the visualized portion of the right kidney measuring up to 2 cm suggestive of renal cyst. Otherwise the visualized portions of the upper abdominal organs are unremarkable. No adrenal lesions identified. The remaining thoracic vasculature is unremarkable. The osseous structures are intact. IMPRESSION: 1. No evidence of pulmonary embolism. 2. Diffuse centrilobular emphysematous changes. 3. Two low attenuated lesions within the visualized portion of the right kidney suggestive of possible renal cyst. If clinically indicated further evaluation with a nonemergent renal ultrasound may be beneficial. Report Dictated on --- Final --- Dictating Physician: DO QUEVEDO RACHEL Signed Date and Time: 01/07/2020 5:05 pm Signed by: DO QUEVEDO RACHEL Transcribed Date and Time: 01/07/2020 5:06 [place], [place] Patient Name: DAYANA BRIGGS ---CT--- Exam Date/Time 01/07/2020 16:53:14 EDT Exam CTA Chest w/ + w/o Contrast Ordering Physician [id number] FLORES Accession Number [id number] CPT4 Codes 73378 (), Q9967 (CT ISOVUE 370MG/ML&[id number]&ML &1) Reason For Exam SOB, hemoptysis, eval for PE Report CTA Chest w/ + w/o Contrast Date of Service: 01/07/2020 4:53 PM EDT INDICATION: SOB, hemoptysis, eval for PE DEMOGRAPHICS: 69 years old Female TECHNIQUE: Multidetector CT was performed from the thoracic inlet to the upper abdomen after nonionic intravenous contrast. For volumetric evaluation of the pulmonary arteries, Maximum Intensity Projections (MIPs) (a 3D technique as classified by the [place] [employer]) were created and the images were reviewed. CT radiation dose optimization techniques (automated exposure control, use of iterative reconstruction techniques, or adjustment of the mA or kV according to the patients size( were used to limit patient radiation dose. COMPARISON: CT chest 07/15/2014 FINDINGS: The thoracic wall is intact and unremarkable. No evidence of axillary adenopathy. The thyroid gland is unremarkable. The heart is unremarkable. No evidence of mediastinal lymphadenopathy. The pulmonary arteries show no filling defects to suggest pulmonary embolism. There is normal tapering of the distal vessels. Slightly limited evaluation of the lungs secondary to patient motion. Diffuse centrilobular emphysematous changes are noted bilaterally. No evidence of pneumothorax, pleural effusions or focal consolidations. Two low attenuated lesions are noted within the visualized portion of the right kidney measuring up to 2 cm suggestive of renal cyst. Otherwise the visualized portions of the upper abdominal organs are unremarkable. No adrenal lesions identified. The remaining thoracic vasculature is unremarkable. The osseous structures are intact. IMPRESSION: 1. No evidence of pulmonary embolism. 2. Diffuse centrilobular emphysematous changes. 3. Two low attenuated lesions within the visualized portion of the right kidney suggestive of possible renal cyst. If clinically indicated further evaluation with a nonemergent renal ultrasound may be beneficial. Report Dictated on --- Final --- Dictating Physician: DO QUEVEDO RACHEL Signed Date and Time: 01/07/2020 5:05 pm Signed by: DO QUEVEDO RACHEL Transcribed Date and Time: 01/07/2020 5:06 [place], [place] Comprehensive Metabolic Pane patty 01-07-2020 Albumin [Mass/Vol] 4.2 g/dL 3.5 - 5 g/dL [place], [place] ALP [Catalytic activity/Vol] 122 U/L 38 - 126 U/L [place], [place] ALT [Catalytic activity/Vol] 19 U/L 0 - 34 U/L [place], [place] Comment on above: The ALT test is perf ormed by an updated assay method. Please note that the reference intervals have been changed and are now sex specific. Anion gap [Moles/Vol] 8 mmol/L [place], [place] AST [Catalytic activity/Vol] 28 U/L 15 - 46 U/L [place], [place] Bilirubin Ql (U) 0.2 mg/dL 0.2 - 1.3 mg/dL [place] Calcium [Mass/Vol] 9.1 mg/dL 8.4 - 10. 4 mg/dL [place] Chloride [Moles/Vol] 102 mmol/L 98 - 10 7 mmol/L [place] CO2 [Moles/Vol] 30 mmol/L 22 - 30 mmol/L [place] Creatinine [Mass/Vol] 0.64 mg/dL 0.52 - 1.25 mg/dL [place] EGFR IF NonAfrican Tristanian >90.0 >60 mL/min [place] Comment on above: KDIGO guidelines pro vide the following GFR categories: Stage GFR(ml/min/1.73 m2) Terms G1 >=90 Normal or high G2 60-89 Mildly decreased* G3a 45-59 Mildly to moderately decreased G3b 30-44 Moderately to severely decreased G4 15-29 Severely decreased G5 <15 Kidney failure *Relative to young adult level. In the absence of evidence of kidney damage, neither GFR category G1 nor G2 fulfill the criteria for CKD. The CKD-EPI equation is validated in individuals 18 years of age and older. Currently the best equation for estimating glomerular filtration rate (GFR) from serum creatinine in children is the Bedside Ramey equation. It is less accurate in patients with extremes of muscle mass, restriction of dietary protein, ingestion of creatine, extra-renal metabolism of creatinine, or treatment with medications that affect renal tubular creatinine secretion. GFR/1.73 sq M predicted among blacks MDRD (S/P/Bld) [Vol rate/Area] mL/min/{1.73_m2} >60 mL/min [place] Glucose [Mass/Vol] 139 mg/dL High 70 - 100 mg/dL [place] Interpretation and review of laboratory results Abnormal [place] Potassium [Moles/Vol] 3.1 mmol/L Low 3.5 - 5.1 mmol/L [place] Protein [Mass/Vol] 7.4 g/dL 6.3 - 8.2 g/dL [place] Sodium [Moles/Vol] 140 mmol/L 135 - 145 mmol/L [place] Urea nitrogen [Mass/Vol] 9 mg/dL 7 - 20 mg/dL [place] Test Performed by [facility], [address] , [place], [place] [id number] [place] [address] Hemogram (CBC) w/Auto Diffon 01-07-2020 Absolute Baso # 0.1 10*3/uL 0 - 0.2 10*3/uL [place] Absolute Neut # 7.9 10*3/uL High 1.8 - 7 10*3/uL [place] Basophils/100 WBC (Bld) 1.0 % 0 - 2 % [place] Eosinophils (Bld) [#/Vol] 0.2 10*3/uL 0 - 0.5 10*3/uL [place] Eosinophils/100 WBC (Bld) 1.6 % 1 - 6 % [place] Erythrocyte distribution width (RBC) [Ratio] 14.3 % 11.5 - 14.5 % [place] Granulocytes/100 WBC (Bld) 71.6 % 40 - 80 % [place] Hematocrit (Bld) [Volume fraction] 38.2 % 35 - 47 % [place] Hemoglobin (Bld) [Mass/Vol] 13.1 g/dL 11.7 - 16 g/dL [place] Interpretation and review of laboratory results Abnormal [place] Lymphocytes (Bld) [#/Vol] 2.1 10*3/uL 1 - 4.3 10*3/uL [place] Lymphocytes/100 WBC (Bld) 18.7 % Low 20 - 40 % [place] MCH (RBC) [Entitic mass] 28.9 pg 26 - 34 pg [place] MCHC (RBC) [Mass/Vol] 34.3 % 32 - 36 % [place] MCV (RBC) [Entitic vol] 84.1 fL 79 - 98 fL [place] Monocytes (Bld) [#/Vol] 0.8 10*3/uL 0 - 0.8 10*3/uL [place] Monocytes/100 WBC (Bld) 7.1 % 2 - 10 % [place] Platelet mean volume (Bld) [Entitic vol] 8.3 fL 7.4 - 10.4 fL [place] Platelets (Bld) [#/Vol] 409 10*3/uL 140 - 440 10*3/uL [place] RBC (Bld) [#/Vol] 4.55 10*6/uL 3.8 - 5.2 10*6/uL [place] WBC (Bld) [#/Vol] 11.0 10*3/uL High 3.6 - 10.7 10*3/uL [place] Test Performed by [facility], [facility] [address] Lactic Acid, Plasmaon 2019 Lactate [Moles/Vol] 1.3 mmol/L 0.7 - 2 mmol/L [place] Test Performed by [facility], [facility] [address] Otheron 01-07-2020 Test Performed by [facility], [facility] [address] , [address] Protime-INRon 01-07-2020 INR Coag (PPP) [Relative time] 1.0 {INR} [place] Comment on above: Recommended Anticoag ulant Therapy: SEE BELOW ----- INR of 2.0 - 3.0 : - Prophylaxis of Venous Thrombosis (high-risk surgery) - Treatment of Venous Thrombosis - Treatment of Pulmonary Embolism (Includes tissue heart valves, Acute Myocardial Infarction to prevent systemic embolism, Valvular Heart Disease, and Atrial Fibrillation) ----- INR of 2.5 - 3.5 : - Mechanical Prosthetic Valves (high risk) - If oral anticoagulant therapy is used to prevent Myocardial Infarction PT Coag (PPP) [Time] 10.6 s 9 - 12 s [place], [place] Comment on above: . Test Performed by [facility], [address] , [place], [place] [address] [place] Troponin x1on 01-07-2020 Troponin I.cardiac [Mass/Vol] ng/mL 0 - 0.034 ng/mL [place] Comment on above: . XR HIP RIGHT (2-3 VIEWS)on 0 10-03-2019 Patient Name: DAYANA BRIGGS ---Diagnostic Radiology--- Exam Date/Time 10/03/2019 10:18:01 EDT Exam CR Hip w/ Pelvis 2 or 3 Views Right n Ordering Physician DO ZEPEDA PAUL E. Accession Number [id number] CPT4 Codes 32230 () Reason For Exam right hip pain Report CLINICAL INDICATION: Right hip pain A single AP view of the pelvis followed by AP and lateral views of the right hip were obtained. COMPARISON: None FINDINGS: No fracture or dislocation of the pelvis or right hip is identified. Mild loss of joint space and acetabular spurring is noted within the left and right hip joints. The sacroiliac joints appear grossly unremarkable. No lytic or blastic bony lesions are seen. IMPRESSION: No acute bony abnormality. Mild osteoarthritic degenerative changes. Report Dictated on --- Final --- Dictating Physician: MD SOLOMON LAURA Signed Date and Time: 10/03/2019 3:03 pm Signed by: MD SOLOMON LAURA Transcribed Date and Time: 10/03/2019 3:04 [place] [facility] - 10/03/2019 3:04 PM EDT Patient Name: DAYANA BRIGGS ---Diagnostic Radiology--- Exam Date/Time 10/03/2019 10:18:01 EDT Exam CR Hip w/ Pelvis 2 or 3 Views Right n Ordering Physician DO ZEPEDA PAUL E. Accession Number [id number] CPT4 Codes 22222 () Reason For Exam right hip pain Report CLINICAL INDICATION: Right hip pain A single AP view of the pelvis followed by AP and lateral views of the right hip were obtained. COMPARISON: None FINDINGS: No fracture or dislocation of the pelvis or right hip is identified. Mild loss of joint space and acetabular spurring is noted within the left and right hip joints. The sacroiliac joints appear grossly unremarkable. No lytic or blastic bony lesions are seen. IMPRESSION: No acute bony abnormality. Mild osteoarthritic degenerative changes. Report Dictated on --- Final --- Dictating Physician: MD SOLOMON LAURA Signed Date and Time: 10/03/2019 3:03 pm Signed by: MD SOLOMON LAURA Transcribed Date and Time: 10/03/2019 3:04 [employer] [employer] Potassiumon 07-18-2019 Potassium [Moles/Vol] 3.9 mmol/L 3.5 - 5.1 mmol/L [facility] Test Performed by [facility], [address] [place] [address]. [address] XR ANKLE LEFT (MIN 3 VIEWS)o n 06-20-2019 Patient Name: DAYANA BRIGGS ---Diagnostic Radiology--- Exam Date/Time 06/20/2019 13:50:36 EST Exam CR Ankle 3+ Views Left Ordering Physician DO ZEPEDA PAUL E. Accession Number [id number] CPT4 Codes 39525 () Reason For Exam . Report EXAMINATION: Left ankle: Three views. COMPARISON: None. REASON FOR STUDY: Lateral pain after injury. FINDINGS: No fracture line or periosteal reaction is identified. Bone alignment is anatomic. Soft tissues appear normal. CONCLUSION(S): No evidence of acute bone injury or malalignment. Report Dictated on --- Final --- Dictating Physician: MD HERNADEZ B NELSON Signed Date and Time: 06/20/2019 2:23 pm Signed by: MD HERNADEZ B NELSON Transcribed Date and Time: 06/20/2019 2:24 [place] [facility] Incoming Radiology Results From [facility] - 06/20/2019 2:24 PM EST Patient Name: DAYANA BRIGGS ---Diagnostic Radiology--- Exam Date/Time 06/20/2019 13:50:36 EST Exam CR Ankle 3+ Views Left Ordering Physician DO ZEPEDA PAUL E. Accession Number [id number] CPT4 Codes 18012 () Reason For Exam . Report EXAMINATION: Left ankle: Three views. COMPARISON: None. REASON FOR STUDY: Lateral pain after injury. FINDINGS: No fracture line or periosteal reaction is identified. Bone alignment is anatomic. Soft tissues appear normal. CONCLUSION(S): No evidence of acute bone injury or malalignment. Report Dictated on --- Final --- Dictating Physician: MD HERNADEZ B NELSON Signed Date and Time: 06/20/2019 2:23 pm Signed by: MD HERNADEZ B NELSON Transcribed Date and Time: 06/20/2019 2:24 [place] Abdomen Pelvis W Contrast on 02-14-2019 Patient Name: DAYANA BRIGGS ---CT--- Exam Date/Time 02/14/2019 16:30:[address] Abdomen/Pelvis w/ IV Contrast (IV Onl Ordering Physician DO ZEPEDA PAUL E. Accession Number [id number] CPT4 Codes 54461 (CT Abdomen/Pelvis w/ IV Contrast (IV Onl), Q9967 (CT ISOVUE 370MG/ML&[id number] &1) Reason For Exam Right lower quadrant abdominal pain (R10.31 [ICD-10-CM]) Report EXAM: CT Abdomen and pelvis INDICATION: Right lower quadrant abdominal pain COMPARISON: none TECHNIQUE: CT of the abdomen and pelvis was performed with contrast (75 mL of Isovue 370 was injected intravenously). Oral contrast was administered. Coronal and sagittal reformats were obtained. FINDINGS: LOWER CHEST: Emphysematous changes noted at the lung bases. ABDOMEN: LIVER: within normal limits. BILE DUCTS: normal caliber. GALLBLADDER: Status post cholecystectomy. PANCREAS: within normal limits. SPLEEN: within normal limits. ADRENALS: within normal limits. KIDNEYS: There is a simple cyst in the posterior interpolar region of the right kidney. Additional subcentimeter hypoattenuating lesions noted bilaterally, too small to characterize. PELVIS: REPRODUCTIVE ORGANS: Postsurgical changes of hysterectomy. No pelvic masses. URETERS: within normal limits. BLADDER: within normal limits. BOWEL: Normal caliber. Status post appendectomy. No enlarged mesenteric lymph nodes. PERITONEUM: no ascites or free air, no fluid collection. VESSELS: Within normal limits. LYMPH NODES: No enlarged nodes. RETROPERITONEUM: within normal limits. ABDOMINAL WALL: There is a moderate to large right lower quadrant spigelian hernia containing mesenteric fat and herniated loops of distal ileum. The mouth of the hernia measures approximately 4.5 x 4.5 cm. No dilated loops of small bowel to suggest obstruction. BONES: within normal limits. IMPRESSION: Large right lower quadrant spigelian hernia containing loops of terminal ileum. No bowel obstruction. Report Dictated on --- Final --- Dictating Physician: MD RODAS KEVIN Signed Date and Time: 02/14/2019 4:41 pm Signed by: MD RODAS KEVIN Transcribed Date and Time: 02/14/2019 4:49 [place], [facility] Incoming Radiology Results From [facility] - 02/14/2019 4:49 PM EDT Patient Name: DAYANA BRIGGS ---CT--- Exam Date/Time 02/14/2019 16:30:[address] Abdomen/Pelvis w/ IV Contrast (IV Onl Ordering Physician DO ZEPEDA PAUL E. Accession Number [id number] CPT4 Codes 26657 (CT Abdomen/Pelvis w/ IV Contrast (IV Onl), Q9967 (CT ISOVUE 370MG/ML&[id number]&ML &1) Reason For Exam Right lower quadrant abdominal pain (R10.31 [ICD-10-CM]) Report EXAM: CT Abdomen and pelvis INDICATION: Right lower quadrant abdominal pain COMPARISON: none TECHNIQUE: CT of the abdomen and pelvis was performed with contrast (75 mL of Isovue 370 was injected intravenously). Oral contrast was administered. Coronal and sagittal reformats were obtained. FINDINGS: LOWER CHEST: Emphysematous changes noted at the lung bases. ABDOMEN: LIVER: within normal limits. BILE DUCTS: normal caliber. GALLBLADDER: Status post cholecystectomy. PANCREAS: within normal limits. SPLEEN: within normal limits. ADRENALS: within normal limits. KIDNEYS: There is a simple cyst in the posterior interpolar region of the right kidney. Additional subcentimeter hypoattenuating lesions noted bilaterally, too small to characterize. PELVIS: REPRODUCTIVE ORGANS: Postsurgical changes of hysterectomy. No pelvic masses. URETERS: within normal limits. BLADDER: within normal limits. BOWEL: Normal caliber. Status post appendectomy. No enlarged mesenteric lymph nodes. PERITONEUM: no ascites or free air, no fluid collection. VESSELS: Within normal limits. LYMPH NODES: No enlarged nodes. RETROPERITONEUM: within normal limits. ABDOMINAL WALL: There is a moderate to large right lower quadrant spigelian hernia containing mesenteric fat and herniated loops of distal ileum. The mouth of the hernia measures approximately 4.5 x 4.5 cm. No dilated loops of small bowel to suggest obstruction. BONES: within normal limits. IMPRESSION: Large right lower quadrant spigelian hernia containing loops of terminal ileum. No bowel obstruction. Report Dictated on --- Final --- Dictating Physician: MD RODAS KEVIN Signed Date and Time: 02/14/2019 4:41 pm Signed by: MD RODAS KEVIN Transcribed Date and Time: 02/14/2019 4:49 [place] Creatinine, Serumon 02-12-20 Creatinine [Mass/Vol] 0.72 mg/dL 0.52 - 1.25 mg/dL [place] EGFR IF NonAfrican [place]istanian >60.0 >60 mL/min [place] Comment on above: Source- MDRD equatio n with creatinine calibration to IDMS(NKDEP) eGFR not recommended for drug dose adjustment GFR/1.73 sq M predicted among blacks MDRD (S/P/Bld) [Vol rate/Area] mL/min/{1.73_m2} >60 mL/min [place] Test [facility] by [facility] [address] COVID-19 virus antigen assay SARS-CoV-2 (COVID-19) Ag IA.rapid Ql (Resp) [facility] Work Phone: Influenza virus A and B and SARS-CoV-2 (COVID-19) Ag panel - Upper respiratory specim SARS-CoV-2 (COVID-19) RNA NETO+probe Ql (Resp) [facility] Work Phone: No Panel Information SARS-CoV-2 & FLU Antigen (Rapid) [facility] Work Phone: Vital Signs Date Time Vital Sign Value Performing Clinician Facility 01-15-2025 11:34-0400 Body temperature 96.7 [degF] Dr. Prosper Roman DO Work Phone: [facility] 01-15-2025 11:34-0400 Diastolic blood pressure 69 mm[Hg] Dr. Prosper Roman DO Work Phone: [facility] 01-15-2025 11:34-0400 Heart rate 80 /min Dr. Prosper Roman DO Work Phone: [facility] 01-15-2025 11:34-0400 Respiratory rate 16 /min Dr. Prosper Roman DO Work Phone: [facility] 01-15-2025 11:34-0400 SaO2% (BldA) [Mass fraction] 100 % Dr. Prosper Roman DO Work Phone: [facility] 01-15-2025 11:34-0400 Systolic blood pressure 125 mm[Hg] Dr. Prosper Roman DO Work Phone: [facility] 01-15-2025 10:44-0400 Body height 154.[address] Prosper Roman DO Work Phone: [facility] 01-15-2025 10:44-0400 Body mass index (BMI) [Ratio] 30 kg/m2 Dr. Prosper Roman DO Work Phone: [facility] 01-15-2025 10:44-0400 Body weight 72.[address] Prosper Roman DO Work Phone: [facility] 01-01-2025 17:15-0400 Diastolic blood pressure 80 mm[Hg] Gentry Ross MD Work Phone: [facility] 01-01-2025 17:15-0400 Heart rate 102 /min Gentry Ross MD Work Phone: [facility] 01-01-2025 17:15-0400 Respiratory rate 20 /min Gentry Ross MD Work Phone: [facility] 01-01-2025 17:15-0400 SaO2% (BldA) [Mass fraction] 96 % Gentry Ross MD Work Phone: [facility] 01-01-2025 17:15-0400 Systolic blood pressure 142 mm[Hg] Gentry Ross MD Work Phone: [facility] 01-01-2025 16:57-0400 Body temperature 97 [degF] Gentry Ross MD Work Phone: [facility] 01-01-2025 15:15-0400 Body height 152.4 cm Gentry Ross MD Work Phone: [facility] 01-01-2025 15:15-0400 Body mass index (BMI) [Ratio] 31.64 kg/m2 Gentry Ross MD Work Phone: [facility] 01-01-2025 15:15-0400 Body weight 73.48 kg Gentry Ross MD Work Phone: [facility] 12-31-2024 10:05-0400 Body height 152.4 cm Filipe Castellon MD Work Phone: [facility] 12-31-2024 10:05-0400 Body mass index (BMI) [Ratio] 31.76 kg/m2 Filipe Castellon MD Work Phone: [facility] 12-31-2024 10:05-0400 Body temperature 97.5 [degF] Filipe Castellon MD [facility] 12-31-2024 10:05-0400 Body weight 73.75 kg Filipe Castellon MD Work Phone: [facility] 12-31-2024 10:05-0400 Diastolic blood pressure 80 mm[Hg] Filipe Castellon MD Work Phone: [facility] 12-31-2024 10:05-0400 Heart rate 93 /min Filipe Castellon MD Work Phone: [facility] 12-31-2024 10:05-0400 SaO2% (BldA) [Mass fraction] 95 % Filipe Catsellon MD Work Phone: [facility] Comment on above: 2Lp 12-31-2024 10:05-0400 Systolic blood pressure 137 mm[Hg] Filipe Castellon MD Work Phone: [facility] 12-20-2024 11:52-0400 Body height 154.[address] Prosper Roman DO Work Phone: [facility] 12-20-2024 11:52-0400 Body mass index (BMI) [Ratio] 30.9 kg/m2 Dr. Prosper Roman DO Work Phone: [facility] 12-20-2024 11:52-0400 Body temperature 97.8 [degF] Dr. Prosper Roman DO Work Phone: [facility] 12-20-2024 11:52-0400 Body weight 74.[address] Prosper Roman DO Work Phone: [facility] 12-20-2024 11:52-0400 Diastolic blood pressure 84 mm[Hg] Dr. Prosper Roman DO Work Phone: [facility] 12-20-2024 11:52-0400 Heart rate 80 /min Dr. Prosper Roman DO Work Phone: [facility] 12-20-2024 11:52-0400 SaO2% (BldA) [Mass fraction] 94 % Dr. Prosper Roman DO Work Phone: [facility] 12-20-2024 11:52-0400 Systolic blood pressure 132 mm[Hg] Dr. Prosper Roman DO Work Phone: [facility] 12-03-2024 10:53-0400 Body height 152.4 cm Joyce Brown APRN - WATCH AND CLOCK MAKER AND REPAIRER Work Phone: [facility] 12-03-2024 10:53-0400 Body mass index (BMI) [Ratio] 31.83 kg/m2 Joyce Brown APRN - WATCH AND CLOCK MAKER AND REPAIRER Work Phone: [facility] 12-03-2024 10:53-0400 Body temperature 97.5 [degF] Joyce Brown APRN - WATCH AND CLOCK MAKER AND REPAIRER Work Phone: [facility] 12-03-2024 10:53-0400 Body weight 73.94 kg Joyce Brown APRN - WATCH AND CLOCK MAKER AND REPAIRER Work Phone: [facility] 12-03-2024 10:53-0400 Diastolic blood pressure 84 mm[Hg] Joyce Brown APRN - WATCH AND CLOCK MAKER AND REPAIRER Work Phone: [facility] 12-03-2024 10:53-0400 Heart rate 80 /min Joyce Brown APRN - WATCH AND CLOCK MAKER AND REPAIRER Work Phone: [facility] 12-03-2024 10:53-0400 SaO2% (BldA) [Mass fraction] 93 % Joyce Brown APRN - WATCH AND CLOCK MAKER AND REPAIRER Work Phone: [facility] Comment on above: 2Lp 12-03-2024 10:53-0400 Systolic blood pressure 131 mm[Hg] Joyce Brown APRN - WATCH AND CLOCK MAKER AND REPAIRER Work Phone: [facility] 11-11-2024 13:16-0400 Body height 154.[address] Prosper Roman DO Work Phone: [facility] 11-11-2024 13:16-0400 Body mass index (BMI) [Ratio] 30.8 kg/m2 Dr. Prosper Roman DO Work Phone: [facility] 11-11-2024 13:16-0400 Body weight 73.[address] Prosper Roman DO Work Phone: [facility] 11-11-2024 13:16-0400 Diastolic blood pressure 82 mm[Hg] Dr. Prosper Roman DO Work Phone: [facility] 11-11-2024 13:16-0400 Heart rate 92 /min Dr. Prosper Roman DO Work Phone: [facility] 11-11-2024 13:16-0400 Inhaled oxygen flow rate 2 L/min Dr. Prosper Roman DO Work Phone: [facility] 11-11-2024 13:16-0400 SaO2% (BldA) [Mass fraction] 97 % Dr. Prosper Roman DO Work Phone: [facility] 11-11-2024 13:16-0400 Systolic blood pressure 136 mm[Hg] Dr. Prosper Roman DO Work Phone: [facility] 10-20-2024 11:18-0400 Body height 152.4 cm Beny Smith ROD TAPE OPERATOR Work Phone: [facility] 10-20-2024 11:18-0400 Body mass index (BMI) [Ratio] 31.25 kg/m2 Beny Smith ROD TAPE OPERATOR Work Phone: [facility] 10-20-2024 11:18-0400 Body weight 72.58 kg Beny Smith ROD TAPE OPERATOR Work Phone: [facility] 10-20-2024 11:18-0400 Diastolic blood pressure 80 mm[Hg] Beny Smith ROD TAPE OPERATOR Work Phone: [facility] 10-20-2024 11:18-0400 Heart rate 83 /min Beny Smith ROD TAPE OPERATOR Work Phone: [facility] 10-20-2024 11:18-0400 SaO2% (BldA) [Mass fraction] 94 % Beny Smith ROD TAPE OPERATOR Work Phone: [facility] 10-20-2024 11:18-0400 Systolic blood pressure 131 mm[Hg] Beny Smith NP Work Phone: [facility] 08-28-2024 10:09-0400 Body height 152.4 cm Filipe Castellon MD Work Phone: [facility] 08-28-2024 10:09-0400 Body mass index (BMI) [Ratio] 31.87 kg/m2 Filipe Castellon MD Work Phone: [facility] 08-28-2024 10:09-0400 Body temperature 97.3 [degF] Filipe Castellon MD Work Phone: [facility] 08-28-2024 10:09-0400 Body weight 74.03 kg Filipe Castellon MD Work Phone: [facility] 08-28-2024 10:09-0400 Diastolic blood pressure 76 mm[Hg] Filipe Castellon MD Work Phone: [facility] 08-28-2024 10:09-0400 Heart rate 81 /min Filipe Castellon MD Work Phone: [facility] 08-28-2024 10:09-0400 SaO2% (BldA) [Mass fraction] 92 % Filipe Castellon MD Work Phone: [facility] Comment on above: 2Lp 08-28-2024 10:09-0400 Systolic blood pressure 129 mm[Hg] Filipe Castellon MD Work Phone: [facility] 08-26-2024 12:56-0400 Body mass index (BMI) [Ratio] 30.4 kg/m2 Dr. Prosper Roman DO Work Phone: [facility] 08-26-2024 12:56-0400 Body weight 73.[address] Prosper Roman DO Work Phone: [facility] 08-26-2024 12:56-0400 Diastolic blood pressure 77 mm[Hg] Dr. Prosper Roman DO Work Phone: [facility] 08-26-2024 12:56-0400 Heart rate 77 /min Dr. Prosper Roamn DO Work Phone: [facility] 08-26-2024 12:56-0400 Inhaled oxygen flow rate 2.5 L/min Dr. Prosper Roman DO Work Phone: [facility] 08-26-2024 12:56-0400 Respiratory rate 20 /min Dr. Prosper Roman DO Work Phone: [facility] 08-26-2024 12:56-0400 SaO2% (BldA) [Mass fraction] 93 % Dr. Prosper Roman DO Work Phone: [facility] 08-26-2024 12:56-0400 Systolic blood pressure 123 mm[Hg] Dr. Prosper Roman DO Work Phone: [facility] 08-20-2024 11:22-0400 Body height 152.4 cm Prosper Roman DO Work Phone: [facility] 08-20-2024 11:22-0400 Body mass index (BMI) [Ratio] 31.79 kg/m2 Prosper Roman Work Phone: [facility] 08-20-2024 11:22-0400 Body temperature 97.9 [degF] Prosper Roman DO Work Phone: [facility] 08-20-2024 11:22-0400 Body weight 73.85 kg Prosper Roman DO Work Phone: [facility] 08-20-2024 11:22-0400 Diastolic blood pressure 72 mm[Hg] Prosper Roman DO Work Phone: [facility] 08-20-2024 11:22-0400 Heart rate 83 /min Prosper Roman DO Work Phone: [facility] 08-20-2024 11:22-0400 SaO2% (BldA) [Mass fraction] 95 % Prosper Roman DO Work Phone: [facility] 08-20-2024 11:22-0400 Systolic blood pressure 112 mm[Hg] Prosper Roman DO Work Phone: [facility] 08-12-2024 11:22-0400 Body height 152.4 cm Jazmin Moy PA-C Work Phone: [facility] 08-12-2024 11:22-0400 Body mass index (BMI) [Ratio] 31.44 kg/m2 Jazmin Moy PA-C Work Phone: [facility] 08-12-2024 11:22-0400 Body temperature 97.2 [degF] Jazmin Moy PA-C Work Phone: [facility] 08-12-2024 11:22-0400 Body weight 73.03 kg Jazmin Moy PA-C Work Phone: [facility] 08-12-2024 11:22-0400 Diastolic blood pressure 80 mm[Hg] Jazmin Moy PA-C Work Phone: [facility] 08-12-2024 11:22-0400 Heart rate 83 /min Jazmin Moy PA-C Work Phone: [facility] 08-12-2024 11:22-0400 SaO2% (BldA) [Mass fraction] 95 % Jazmin Moy PA-C Work Phone: [facility] 08-12-2024 11:22-0400 Systolic blood pressure 122 mm[Hg] Jazmin Moy PA-C Work Phone: [facility] 07-30-2024 10:38-0400 Body height 152.4 cm Jazmin Moy PA-C Work Phone: [facility] 07-30-2024 10:38-0400 Body mass index (BMI) [Ratio] 31.09 kg/m2 Jazmin Moy PA-C Work Phone: [facility] 07-30-2024 10:38-0400 Body temperature 97.2 [degF] Jazmin Moy PA-C Work Phone: [facility] 07-30-2024 10:38-0400 Body weight 72.21 kg Jazmin Moy PA-C Work Phone: [facility] 07-30-2024 10:38-0400 Diastolic blood pressure 70 mm[Hg] Jazmin MADDOX-C Work Phone: [facility] 07-30-2024 10:38-0400 Heart rate 86 /min Jazmin MADDOX-C Work Phone: [facility] 07-30-2024 10:38-0400 SaO2% (BldA) [Mass fraction] 96 % Jazmin Moy PA-C Work Phone: [facility] 07-30-2024 10:38-0400 Systolic blood pressure 130 mm[Hg] Jazmin MADDOX-C Work Phone: [facility] 07-02-2024 11:03-0400 Body mass index (BMI) [Ratio] 31.09 kg/m2 Denise Bridenthal GLASS SETTER - [employer] AND REPA[employer]ER Work Phone: [facility] 07-02-2024 11:03-0400 Body temperature 98.71 [degF] Denise Bridenthal GLASS SETTER - [employer] AND REPAIRER Work Phone: [facility] 07-02-2024 11:03-0400 Body weight 72.21 kg Denise Bridenthal GLASS SETTER - [employer] AND REPAIRER Work Phone: [facility] 07-02-2024 11:03-0400 Diastolic blood pressure 78 mm[Hg] Denise Bridenthal GLASS SETTER - [employer] AND [employer] AND REPAIRER Work Phone: [facility] 07-02-2024 11:03-0400 Heart rate 90 /min Denise Bridenthal GLASS SETTER - [employer] AND [employer] AND REPAIRER Work Phone: [facility] 07-02-2024 11:03-0400 Respiratory rate 24 /min Denise Bridenthal GLASS SETTER - W[employer] AND [employer]ER AND REPAIRER Work Phone: [facility] 07-02-2024 11:03-0400 SaO2% (BldA) [Mass fraction] 92 % Denise Bridenthal GLASS SETTER - [employer] AND [employer] MAKER AND REPAIRER Work Phone: [facility] 07-02-2024 11:03-0400 Systolic blood pressure 128 mm[Hg] Denise Bridenthal GLASS SETTER - [employer] AND [employer] AND REPAIRER Work Phone: [facility] 05-28-2024 11:00-0500 Body height 152.4 cm Joyce Brown APRN - [employer]ATCH AND [employer]ER AND REPAIRER Work Phone: [facility] 05-28-2024 11:00-0500 Body mass index (BMI) [Ratio] 31.48 kg/m2 Joyce Brown GLASS SETTER - [employer] AND REPAIRER Work Phone: [facility] 05-28-2024 11:00-0500 Body temperature 97.7 [degF] Joyce Brown APRN - [employer] AND [employer]ER AND REPAIRER Work Phone: [facility] 05-28-2024 11:00-0500 Body weight 73.12 kg Joyce Brown APRN - [employer]ATCH AND [employer] AND REPAIRER Work Phone: [facility] 05-28-2024 11:00-0500 Diastolic blood pressure 85 mm[Hg] Joyce Brown APRN - [employer] AND [employer] AND REPAIRER Work Phone: [facility] 05-28-2024 11:00-0500 Heart rate 86 /min Joyce Brown APRN - [employer] AND [employer] AND REPAIRER Work Phone: [facility] 05-28-2024 11:00-0500 SaO2% (BldA) [Mass fraction] 94 % Joyce Brown APRN - [employer] AND [employer] AND REPAIRER Work Phone: [facility] Comment on above: 2.5Lp 05-28-2024 11:00-0500 Systolic blood pressure 134 mm[Hg] Joyce Brown GLASS SETTER - [employer] AND [employer] AND REPAIRER Work Phone: [facility] 05-19-2024 14:32-0500 Body height 152.4 cm Jazmin MADDOX-C Work Phone: [facility] 05-19-2024 14:32-0500 Body mass index (BMI) [Ratio] 31.44 kg/m2 Jazmin MADDOX-C Work Phone: [facility] 05-19-2024 14:32-0500 Body temperature 98.1 [degF] Jazmin MADDOX-C Work Phone: [facility] 05-19-2024 14:32-0500 Body weight 73.03 kg Jazmin Moy PA-C Work Phone: [facility] 05-19-2024 14:32-0500 Diastolic blood pressure 80 mm[Hg] Jazmin Moy PA-C Work Phone: [facility] 05-19-2024 14:32-0500 Heart rate 112 /min Jazmin Gonzalezo PA-C Work Phone: [facility] 05-19-2024 14:32-0500 SaO2% (BldA) [Mass fraction] 97 % Jazmin Gonzalezo PA-C Work Phone: [facility] 05-19-2024 14:32-0500 Systolic blood pressure 130 mm[Hg] Jazmin Gonzalezo PA-C Work Phone: [facility] 03-24-2024 10:01-0500 Body height 152.4 cm Joyce Archielamonte UNGERN - WATCH AND [employer] MAKER AND REPAIRER Work Phone: [facility] 03-24-2024 10:01-0500 Body mass index (BMI) [Ratio] 31.01 kg/m2 Joycecristal Brown GLASS SETTER - W[employer] AND REPAIRER Work Phone: [facility] 03-24-2024 10:01-0500 Body temperature 97.81 [degF] Joyce Archie GLASS SETTER - W[employer] AND [employer] MA[employer]ER AND REPAIRER Work Phone: [facility] 03-24-2024 10:01-0500 Body weight 72.03 kg Joyce Eubanksyd GLASS SETTER - WATCH AND [employer] MAKER AND REPAIRER Work Phone: [facility] 03-24-2024 10:01-0500 Diastolic blood pressure 71 mm[Hg] Joyce Brown GLASS SETTER - W[employer] AND [employer] MAKER AND REPAIRER Work Phone: [facility] 03-24-2024 10:01-0500 Heart rate 96 /min Joyce Brown GLASS SETTER - W[employer] AND [employer] MAKER AND REPAIRER Work Phone: [facility] 03-24-2024 10:01-0500 SaO2% (BldA) [Mass fraction] 98 % Joyce Brown GLASS SETTER - W[employer] AND REPAIRER Work Phone: [facility] Comment on above: 2Lp 03-24-2024 10:01-0500 Systolic blood pressure 124 mm[Hg] Joyce Brown GLASS SETTER - W[employer] AND [employer]KER AND REPAIRER Work Phone: [facility] 03-05-2024 10:57-0500 Body height 152.4 cm Prosper Roman DO Work Phone: [facility] 03-05-2024 10:57-0500 Body mass index (BMI) [Ratio] 31.83 kg/m2 Prosper Roman DO Work Phone: [facility] 03-05-2024 10:57-0500 Body weight 73.94 kg Prosper Roman DO Work Phone: [facility] 02-20-2024 10:18-0400 Body height 152.4 cm Prosper Roman DO Work Phone: [facility] 02-20-2024 10:18-0400 Body mass index (BMI) [Ratio] 32.42 kg/m2 Prosper Roman DO Work Phone: [facility] 02-20-2024 10:18-0400 Body temperature 98.6 [degF] Prosper Huffa DO Work Phone: [facility] 02-20-2024 10:18-0400 Body weight 75.3 kg Prosper Roman DO Work Phone: [facility] 02-20-2024 10:18-0400 Diastolic blood pressure 84 mm[Hg] Prosper Roman DO Work Phone: [facility] 02-20-2024 10:18-0400 Heart rate 82 /min Prosper Roman DO Work Phone: [facility] 02-20-2024 10:18-0400 SaO2% (BldA) [Mass fraction] 97 % Prosper Roman DO Work Phone: [facility] 02-20-2024 10:18-0400 Systolic blood pressure 132 mm[Hg] Prosper Roman DO Work Phone: [facility] 01-30-2024 11:42-0400 Body height 152.4 cm Joyce Brown APRN - W[employer]KER AND REPAIRER Work Phone: [facility] 01-30-2024 11:42-0400 Body mass index (BMI) [Ratio] 32.22 kg/m2 Joyce Brown APRN - [employer] AND [employer] MAKER AND REPAIRER Work Phone: [facility] 01-30-2024 11:42-0400 Body weight 74.84 kg Joyce Brown APRN - WATCH AND [employer] MAKER AND REPAIRER Work Phone: [facility] 01-30-2024 11:42-0400 Diastolic blood pressure 79 mm[Hg] Joyce Brown APRN - W[employer] AND [employer] MAKER AND REPAIRER Work Phone: [facility] 01-30-2024 11:42-0400 Heart rate 78 /min Joyce Brown APRN - W[employer] AND [employer] MAKER AND REPAIRER Work Phone: [facility] 01-30-2024 11:42-0400 SaO2% (BldA) [Mass fraction] 92 % Joyce Brown APRN - WATCH AND [employer] MAKER AND REPAIRER Work Phone: [facility] 01-30-2024 11:42-0400 Systolic blood pressure 125 mm[Hg] Joyce Brown APRN - WATCH AND [employer] MAKER AND REPAIRER Work Phone: [facility] 01-10-2024 14:30-0400 Body height 160 cm Joyce Brown APRN - WATCH AND [employer] MAKER AND REPAIRER Work Phone: [facility] 01-10-2024 14:30-0400 Body mass index (BMI) [Ratio] 28.7 kg/m2 Joyce Brown APRN - W[employer] AND [employer] MAKER AND REPAIRER Work Phone: [facility] 01-10-2024 14:30-0400 Body weight 73.48 kg Joyce Brown APRN - WATCH AND [employer] MAKER AND REPAIRER Work Phone: [facility] 01-09-2024 10:27-0400 Body height 160 cm Joyce Brown APRN - WATCH AND [employer] MAKER AND REPAIRER Work Phone: [facility] 01-09-2024 10:27-0400 Body mass index (BMI) [Ratio] 28.73 kg/m2 Joyce Brown APRN - W[employer] AND [employer] MAKER AND REPAIRER Work Phone: [facility] 01-09-2024 10:27-0400 Body temperature 97.3 [degF] Joyce Brown APRN - WATCH AND [employer] MAKER AND REPAIRER Work Phone: [facility] 01-09-2024 10:27-0400 Body weight 73.57 kg Joyce Brown APRN - WATCH AND [employer] MAKER AND REPAIRER Work Phone: [facility] 01-09-2024 10:27-0400 Diastolic blood pressure 80 mm[Hg] Joyce Brown GLASS SETTER - W[employer] AND [employer] MAKER AND REPAIRER Work Phone: [facility] 01-09-2024 10:27-0400 Heart rate 68 /min Joyce Brown GLASS SETTER - W[employer] AND [employer] MAKER AND REPAIRER Work Phone: [facility] 01-09-2024 10:27-0400 SaO2% (BldA) [Mass fraction] 95 % Joyce Brown GLASS SETTER - W[employer] AND [employer] MAKER AND REPAIRER Work Phone: [facility] Comment on above: 2Lp 01-09-2024 10:27-0400 Systolic blood pressure 134 mm[Hg] Joyce Brown GLASS SETTER - W[employer] AND [employer] MAKER AND REPAIRER Work Phone: [facility] 12-12-2023 13:17-0400 Body height 160 cm Joyce Brown APRN - W[employer] AND [employer] MAKER AND REPAIRER Work Phone: [facility] 12-12-2023 13:17-0400 Body mass index (BMI) [Ratio] 28.09 kg/m2 Joyce Brown APRN - [employer] AND [employer] MAKER AND REPAIRER Work Phone: [facility] 12-12-2023 13:17-0400 Body temperature 97.5 [degF] Joyce Brown APRN - [employer] AND [employer] MAKER AND REPAIRER Work Phone: [facility] 12-12-2023 13:17-0400 Body weight 71.94 kg Joyce Brown GLASS SETTER - W[employer] AND [employer] MAKER AND REPAIRER Work Phone: [facility] 12-12-2023 13:17-0400 Diastolic blood pressure 75 mm[Hg] Joyce Brown GLASS SETTER - W[employer] AND [employer] MAKER AND REPAIRER Work Phone: [facility] 12-12-2023 13:17-0400 Heart rate 87 /min Joyce Brown GLASS SETTER - W[employer] AND [employer] MAKER AND REPAIRER Work Phone: [facility] 12-12-2023 13:17-0400 SaO2% (BldA) [Mass fraction] 97 % Joyce Brown GLASS SETTER - W[employer] AND [employer] MAKER AND REPAIRER Work Phone: [facility] Comment on above: 2Lp 12-12-2023 13:17-0400 Systolic blood pressure 129 mm[Hg] Joyce Brown GLASS SETTER - W[employer] AND [employer] MAKER AND REPAIRER Work Phone: [facility] 10-24-2023 10:52-0400 Body height 160 cm Jazmin Moy PA-C Work Phone: [facility] 10-24-2023 10:52-0400 Body mass index (BMI) [Ratio] 27.92 kg/m2 Jazmin Moy PA-C Work Phone: [facility] 10-24-2023 10:52-0400 Body temperature 97.5 [degF] Jazmin Moy PA-C Work Phone: [facility] 10-24-2023 10:52-0400 Body weight 71.49 kg Jazmin Moy PA-C Work Phone: [facility] 10-24-2023 10:52-0400 Diastolic blood pressure 64 mm[Hg] Jazmin Moy PA-C Work Phone: [facility] 10-24-2023 10:52-0400 Heart rate 97 /min Jazmin Moy PA-C Work Phone: [facility] 10-24-2023 10:52-0400 SaO2% (BldA) [Mass fraction] 97 % Jazmin Moy PA-C Work Phone: [facility] 10-24-2023 10:52-0400 Systolic blood pressure 120 mm[Hg] Jazmin Moy PA-C Work Phone: [facility] 09-19-2023 10:05-0400 Body height 160 cm Jazmin Moy PA-C Work Phone: [facility] 09-19-2023 10:05-0400 Body mass index (BMI) [Ratio] 27.78 kg/m2 Jazmin MADDOX-C Work Phone: [facility] 09-19-2023 10:05-0400 Body temperature 97.59 [degF] Jazmin MADDOX-C Work Phone: [facility] 09-19-2023 10:05-0400 Body weight 71.12 kg Jazmin MADDOX-C Work Phone: [facility] 09-19-2023 10:05-0400 Diastolic blood pressure 69 mm[Hg] Jazmin MADDOX-C Work Phone: [facility] 09-19-2023 10:05-0400 Heart rate 105 /min Jazmin MADDOX-C Work Phone: [facility] 09-19-2023 10:05-0400 SaO2% (BldA) [Mass fraction] 95 % Jazmin MADDOX-C Work Phone: [facility] 09-19-2023 10:05-0400 Systolic blood pressure 138 mm[Hg] Jazmin MADDOX-C Work Phone: [facility] 08-21-2023 14:14-0400 Diastolic blood pressure 82 mm[Hg] Prosper Roman DO Work Phone: [facility] 08-21-2023 14:14-0400 Heart rate 76 /min Prosper Youcoltlizzy DO Work Phone: [facility] 08-21-2023 14:14-0400 Systolic blood pressure 136 mm[Hg] Prosper Yuocoltlizzy DO Work Phone: [facility] 08-21-2023 13:16-0400 Body height 160 cm Prosper Youadam Work Phone: [facility] 08-21-2023 13:16-0400 Body mass index (BMI) [Ratio] 27.99 kg/m2 Prosper Youcoltlizzy DO Work Phone: [facility] 08-21-2023 13:16-0400 Body temperature 98.01 [degF] Prosper Roman DO Work Phone: [facility] 08-21-2023 13:16-0400 Body weight 71.67 kg Prosper Roman DO Work Phone: [facility] 08-21-2023 13:16-0400 SaO2% (BldA) [Mass fraction] 98 % Prosper Roman DO Work Phone: [facility] 07-18-2023 11:43-0400 Body height 160 cm Aubrey Dyer MD Work Phone: [facility] 07-18-2023 11:43-0400 Body mass index (BMI) [Ratio] 27.81 kg/m2 Aubrey Dyer MD Work Phone: [facility] 07-18-2023 11:43-0400 Body temperature 97.7 [degF] Aubrey Dyer MD Work Phone: [facility] 07-18-2023 11:43-0400 Body weight 71.22 kg Aburey Dyer MD Work Phone: [facility] 07-18-2023 11:43-0400 Diastolic blood pressure 78 mm[Hg] Aubrey Dyer MD Work Phone: [facility] 07-18-2023 11:43-0400 Heart rate 102 /min Aubrey Dyer MD Work Phone: [facility] 07-18-2023 11:43-0400 SaO2% (BldA) [Mass fraction] 93 % Aubrey Dyer MD Work Phone: [facility] Comment on above: 2Lp 07-18-2023 11:43-0400 Systolic blood pressure 134 mm[Hg] Aubrey Dyer MD Work Phone: [facility] 07-04-2023 08:36-0400 Body mass index (BMI) [Ratio] 27.63 kg/m2 Denise Dean GLASS SETTER - [employer] MAKER AND REPAIRER Work Phone: [facility] 07-04-2023 08:36-0400 Body temperature 98.71 [degF] Denise Bridenthal GLASS SETTER - [employer] MAKER AND REPAIRER Work Phone: [facility] 07-04-2023 08:36-0400 Body weight 70.76 kg Denise Bridenthal GLASS SETTER - W[employer] MAKER AND REPAIRER Work Phone: [facility] 07-04-2023 08:36-0400 Diastolic blood pressure 81 mm[Hg] Denise Bridenthal GLASS SETTER - W[employer] AND [employer] MAKER AND REPAIRER Work Phone: [facility] 07-04-2023 08:36-0400 Heart rate 106 /min Denise Bridenthal GLASS SETTER - W[employer] AND [employer] MAKER AND REPAIRER Work Phone: [facility] 07-04-2023 08:36-0400 Respiratory rate 26 /min Denise Bridenthal GLASS SETTER - W[employer] AND [employer] MAKER AND REPAIRER Work Phone: [facility] 07-04-2023 08:36-0400 SaO2% (BldA) [Mass fraction] 97 % Denise Bridenthal GLASS SETTER - W[employer] AND [employer] MAKER AND REPAIRER Work Phone: [facility] 07-04-2023 08:36-0400 Systolic blood pressure 132 mm[Hg] Denise Bridenthal GLASS SETTER - W[employer] AND [employer] MAKER AND REPAIRER Work Phone: [facility] 05-22-2023 12:00-0500 Heart rate 92 /min Marjan Falat GLASS SETTER - W[employer] AND [employer] MAKER AND REPAIRER Work Phone: [facility] 05-22-2023 12:00-0500 SaO2% (BldA) [Mass fraction] 95 % Marjan Falat GLASS SETTER - W[employer] AND [employer] MAKER AND REPAIRER Work Phone: [facility] Comment on above: [facility] 05-21-2023 14:15-0500 Body height 160 cm Jazmin Moy PA-C Work Phone: [facility] 05-21-2023 14:15-0500 Body mass index (BMI) [Ratio] 27.46 kg/m2 Jazmin Moy PA-C Work Phone: [facility] 05-21-2023 14:15-0500 Body temperature 98.01 [degF] Jazmin Moy PA-C Work Phone: [facility] 05-21-2023 14:15-0500 Body weight 70.31 kg Jazmin Gonzalezo PA-C Work Phone: [facility] 05-21-2023 14:15-0500 Diastolic blood pressure 58 mm[Hg] Jazmin Gonzalezo PA-C Work Phone: [facility] 05-21-2023 14:15-0500 Heart rate 100 /min Jazmin Gonzalezo PA-C Work Phone: [facility] 05-21-2023 14:15-0500 SaO2% (BldA) [Mass fraction] 96 % Jazmin Moy PA-C Work Phone: [facility] 05-21-2023 14:15-0500 Systolic blood pressure 120 mm[Hg] Jazmin Moy PA-C Work Phone: [facility] 05-15-2023 10:00-0500 Body height 160 cm Vic Foley MD Work Phone: [facility] 05-15-2023 10:00-0500 Body mass index (BMI) [Ratio] 27.46 kg/m2 Vic Foley MD Work Phone: [facility] 05-15-2023 10:00-0500 Body weight 70.31 kg Vic Foley MD Work Phone: [facility] 05-15-2023 10:00-0500 Diastolic blood pressure 84 mm[Hg] Vic Foley MD Work Phone: [facility] 05-15-2023 10:00-0500 Systolic blood pressure 134 mm[Hg] Vic Foley MD Work Phone: [facility] 05-13-2023 11:28-0500 Diastolic blood pressure 82 mm[Hg] [facility] 05-13-2023 11:28-0500 Systolic blood pressure 140 mm[Hg] [facility] 05-13-2023 08:45-0500 Heart rate 91 /min [facility] 05-13-2023 08:45-0500 Inhaled oxygen flow rate 2 L/min [facility] 05-13-2023 08:45-0500 Respiratory rate 12 /min [facility] 05-13-2023 08:45-0500 SaO2% (BldA) [Mass fraction] 96 % [facility] 05-13-2023 07:16-0500 Body height 154.94 cm [facility] 05-13-2023 07:16-0500 Body mass index (BMI) [Ratio] 29.3 kg/m2 [facility] 05-13-2023 07:16-0500 Body temperature 97.9 [degF] [facility] 05-13-2023 07:16-0500 Body weight 70.39 kg [facility] 04-26-2023 08:29-0500 Body height 154.9 cm Inga Washington MD Work Phone: [facility] 04-26-2023 08:29-0500 Body mass index (BMI) [Ratio] 29.48 kg/m2 Inga Washington MD Work Phone: [facility] 04-26-2023 08:29-0500 Body temperature 98.01 [degF] Inga Washington MD Work Phone: [facility] 04-26-2023 08:29-0500 Body weight 70.76 kg Inga Washington MD Work Phone: [facility] 04-26-2023 08:29-0500 Diastolic blood pressure 76 mm[Hg] Inga Washington MD Work Phone: [facility] 04-26-2023 08:29-0500 Heart rate 98 /min Inga Washington MD Work Phone: [facility] 04-26-2023 08:29-0500 SaO2% (BldA) [Mass fraction] 96 % Inga Washington MD Work Phone: [facility] 04-26-2023 08:29-0500 Systolic blood pressure 136 mm[Hg] Inga Washington MD Work Phone: [facility] 04-17-2023 11:20-0500 Body height 154.9 cm Marjan Wall GLASS SETTER - [employer] MAK[employer] AND REPAIRER Work Phone: [facility] 04-17-2023 11:20-0500 Body mass index (BMI) [Ratio] 29.85 kg/m2 Marjan Wall GLASS SETTER - [employer] MAKER AND REPAIRER Work Phone: [facility] 04-17-2023 11:20-0500 Body weight 71.67 kg Marjan Wall GLASS SETTER - W[employer] AND [employer] MAKER AND REPAIRER Work Phone: [facility] 04-17-2023 11:20-0500 Diastolic blood pressure 77 mm[Hg] Marjan Wall GLASS SETTER - [employer] AND [employer] MAKER AND REPAIRER Work Phone: [facility] 04-17-2023 11:20-0500 Heart rate 74 /min Marjan Wall GLASS SETTER - W[employer] AND [employer] MAKER AND REPAIRER Work Phone: [facility] 04-17-2023 11:20-0500 SaO2% (BldA) [Mass fraction] 94 % Marjanzbigniew Wall GLASS SETTER - [employer] AND [employer] MAKER AND REPAIRER Work Phone: [facility] Comment on above: 2L o2 P 04-17-2023 11:20-0500 Systolic blood pressure 123 mm[Hg] Marjan Wall GLASS SETTER - [employer] AND [employer] MAKER AND REPAIRER Work Phone: [facility] 04-12-2023 15:04-0500 SaO2% (BldA) [Mass fraction] 99 % [facility] 04-12-2023 13:28-0500 Heart rate 96 /min [facility] 04-12-2023 13:28-0500 Respiratory rate 22 /min [facility] 04-12-2023 13:19-0500 Inhaled oxygen flow rate 2 L/min [facility] 04-12-2023 12:31-0500 Body height 152.4 cm [facility] 04-12-2023 12:31-0500 Body mass index (BMI) [Ratio] 31.3 kg/m2 [facility] 04-12-2023 12:31-0500 Body temperature 97.5 [degF] [facility] 04-12-2023 12:31-0500 Body weight 72.8 kg [facility] 04-12-2023 12:31-0500 Diastolic blood pressure 87 mm[Hg] [facility] 04-12-2023 12:31-0500 Systolic blood pressure 188 mm[Hg] [facility] 03-28-2023 14:57-0500 Body height 154.9 cm Jazmin Gonzalezo PA-C Work Phone: [facility] 03-28-2023 14:57-0500 Body mass index (BMI) [Ratio] 30.8 kg/m2 Jazmin Moy PA-C Work Phone: [facility] 03-28-2023 14:57-0500 Body temperature 98.01 [degF] Jazmin Moy PA-C Work Phone: [facility] 03-28-2023 14:57-0500 Body weight 73.94 kg Jazmin Moy PA-C Work Phone: [facility] 03-28-2023 14:57-0500 Diastolic blood pressure 74 mm[Hg] Jazmin Moy PA-C Work Phone: [facility] 03-28-2023 14:57-0500 Heart rate 103 /min Jazmin Moy PA-C Work Phone: [facility] 03-28-2023 14:57-0500 SaO2% (BldA) [Mass fraction] 96 % Jazmin Moy PA-C Work Phone: [facility] 03-28-2023 14:57-0500 Systolic blood pressure 138 mm[Hg] Jazmin Moy PA-C Work Phone: [facility] 03-23-2023 08:52-0500 Body height 154.9 cm Jazmin Moy PA-C Work Phone: [facility] 03-23-2023 08:52-0500 Body mass index (BMI) [Ratio] 30.8 kg/m2 Jazmin Moy PA-C Work Phone: [facility] 03-23-2023 08:52-0500 Body temperature 97 [degF] Jazmin Moy PA-C Work Phone: [facility] 03-23-2023 08:52-0500 Body weight 73.94 kg Jazmin Moy PA-C Work Phone: [facility] 03-23-2023 08:52-0500 Diastolic blood pressure 72 mm[Hg] Jazmin Moy PA-C Work Phone: [facility] 03-23-2023 08:52-0500 Heart rate 80 /min Jazmin Moy PA-C Work Phone: [facility] 03-23-2023 08:52-0500 SaO2% (BldA) [Mass fraction] 98 % Jazmin Moy PA-C Work Phone: [facility] 03-23-2023 08:52-0500 Systolic blood pressure 143 mm[Hg] Jazmin Moy PA-C Work Phone: [facility] 02-06-2023 10:36-0400 Body height 152.4 cm Jazmin Moy PA-C Work Phone: [facility] 02-06-2023 10:36-0400 Body mass index (BMI) [Ratio] 31.44 kg/m2 Jazmin Moy PA-C Work Phone: [facility] 02-06-2023 10:36-0400 Body temperature 99.1 [degF] Jazmin Moy PA-C Work Phone: [facility] 02-06-2023 10:36-0400 Body weight 73.03 kg Jazmin Moy PA-C Work Phone: [facility] 02-06-2023 10:36-0400 Diastolic blood pressure 77 mm[Hg] Jazmin Moy PA-C Work Phone: [facility] 02-06-2023 10:36-0400 Heart rate 92 /min Jazmin Moy PA-C Work Phone: [facility] 02-06-2023 10:36-0400 SaO2% (BldA) [Mass fraction] 97 % Jazmin Moy PA-C Work Phone: [facility] 02-06-2023 10:36-0400 Systolic blood pressure 135 mm[Hg] Jazmin Moy PA-C Work Phone: [facility] 01-02-2023 13:58-0400 Diastolic blood pressure 88 mm[Hg] Dr. Марина Zepeda Work Phone: [facility] 01-02-2023 13:58-0400 Heart rate 76 /min Dr. Марина Zepeda Work Phone: [facility] 01-02-2023 13:58-0400 Respiratory rate 16 /min Dr. Марина Zepeda Work Phone: [facility] 01-02-2023 13:58-0400 Systolic blood pressure 156 mm[Hg] Dr. Марина Zepeda Work Phone: [facility] 01-02-2023 13:19-0400 Body height 154.[address] Марина Zepeda Work Phone: [facility] 01-02-2023 13:19-0400 Body temperature 97.8 [degF] Dr. Марина Zepeda Work Phone: [facility] 01-02-2023 13:19-0400 SaO2% (BldA) [Mass fraction] 97 % Dr. Марина Zepeda Work Phone: [facility] 12-22-2022 19:14-0400 Body height 154.[address] Марина Zepeda Work Phone: [facility] 12-22-2022 19:14-0400 Body mass index (BMI) [Ratio] 29.2 kg/m2 Dr. Марина Zepeda Work Phone: [facility] 12-22-2022 19:14-0400 Body temperature 96.2 [degF] Dr. Марина Zepeda Work Phone: [facility] 12-22-2022 19:14-0400 Body weight 70.[address] Марина Zepeda Work Phone: [facility] 12-22-2022 19:14-0400 Diastolic blood pressure 93 mm[Hg] Dr. Марина Zepeda Work Phone: [facility] 12-22-2022 19:14-0400 Heart rate 95 /min Dr. Марина Zepeda Work Phone: [facility] 12-22-2022 19:14-0400 Inhaled oxygen flow rate 2 L/min Dr. Марина Zepeda Work Phone: [facility] 12-22-2022 19:14-0400 Respiratory rate 18 /min Dr. Марина Zepeda Work Phone: [facility] 12-22-2022 19:14-0400 SaO2% (BldA) [Mass fraction] 98 % Dr. Марина Zepeda Work Phone: [facility] 12-22-2022 19:14-0400 Systolic blood pressure 168 mm[Hg] Dr. Марина Zepeda Work Phone: [facility] 12-06-2022 09:55-0400 Body height 154.9 cm Aubrey Dyer MD Work Phone: [facility] 12-06-2022 09:55-0400 Body mass index (BMI) [Ratio] 28.91 kg/m2 Aubrey Dyer MD Work Phone: [facility] 12-06-2022 09:55-0400 Body temperature 97.7 [degF] Aubrey Dyer MD Work Phone: [facility] 12-06-2022 09:55-0400 Body weight 69.4 kg Aubrey Dyer MD Work Phone: [facility] 12-06-2022 09:55-0400 Diastolic blood pressure 83 mm[Hg] Aubrey Dyer MD Work Phone: [facility] 12-06-2022 09:55-0400 Heart rate 78 /min Aubrey Dyer MD Work Phone: [facility] 12-06-2022 09:55-0400 SaO2% (BldA) [Mass fraction] 95 % Aubrey Dyer MD Work Phone: [facility] Comment on above: 2Lp 12-06-2022 09:55-0400 Systolic blood pressure 130 mm[Hg] Aubrey Dyer MD Work Phone: [facility] 10-30-2022 14:02-0400 Body mass index (BMI) [Ratio] 28.7 kg/m2 Dr. Марина Zepeda Work Phone: [facility] 10-30-2022 14:02-0400 Body temperature 98.6 [degF] Dr. Марина Zepeda Work Phone: [facility] 10-30-2022 14:02-0400 Body weight [address] Марина Zepeda Work Phone: [facility] 10-30-2022 14:02-0400 Diastolic blood pressure 86 mm[Hg] Dr. Марина Zepeda Work Phone: [facility] 10-30-2022 14:02-0400 Heart rate 78 /min Dr. Марина Zepeda Work Phone: [facility] 10-30-2022 14:02-0400 Inhaled oxygen flow rate 2 L/min Dr. Марина Zepeda Work Phone: [facility] 10-30-2022 14:02-0400 Respiratory rate 18 /min Dr. Марина Zepeda Work Phone: [facility] 10-30-2022 14:02-0400 SaO2% (BldA) [Mass fraction] 94 % Dr. Марина Zepeda Work Phone: [facility] 10-30-2022 14:02-0400 Systolic blood pressure 150 mm[Hg] Dr. Марина Zepeda Work Phone: [facility] 10-10-2022 14:55-0400 Body height 154.9 cm Prosper Roman DO Work Phone: [facility] 10-10-2022 14:55-0400 Body mass index (BMI) [Ratio] 29.1 kg/m2 Prosper Roman DO Work Phone: [facility] 10-10-2022 14:55-0400 Body temperature 99.3 [degF] Prosper Roman DO Work Phone: [facility] 10-10-2022 14:55-0400 Body weight 69.85 kg Prosper Roman DO Work Phone: [facility] 10-10-2022 14:55-0400 Diastolic blood pressure 82 mm[Hg] Prosper Roman DO Work Phone: [facility] 10-10-2022 14:55-0400 Heart rate 88 /min Prosper Roman DO Work Phone: [facility] 10-10-2022 14:55-0400 SaO2% (BldA) [Mass fraction] 96 % Prosper Roman DO Work Phone: [facility] 10-10-2022 14:55-0400 Systolic blood pressure 130 mm[Hg] Prosper Roman DO Work Phone: [facility] 09-26-2022 12:33-0400 Body height 154.9 cm Jazmin MADDOX-C Work Phone: [facility] 09-26-2022 12:33-0400 Body mass index (BMI) [Ratio] 28.91 kg/m2 Jazmin MADDOX-C Work Phone: [facility] 09-26-2022 12:33-0400 Body temperature 98.01 [degF] Jazmin MADDOX-C Work Phone: [facility] 09-26-2022 12:33-0400 Body weight 69.4 kg Jazmin MADDOX-C Work Phone: [facility] 09-26-2022 12:33-0400 Diastolic blood pressure 75 mm[Hg] Jazmin Gonzalezo PA-C Work Phone: [facility] 09-26-2022 12:33-0400 Heart rate 86 /min Jazmin Gonzalezo PA-C Work Phone: [facility] 09-26-2022 12:33-0400 SaO2% (BldA) [Mass fraction] 93 % Jazmin Gonzalezo PA-C Work Phone: [facility] 09-26-2022 12:33-0400 Systolic blood pressure 168 mm[Hg] Jazmin Gonzalezo PA-C Work Phone: [facility] 09-06-2022 10:35-0400 Body height 154.9 cm Aubrey Dyer MD Work Phone: [facility] 09-06-2022 10:35-0400 Body mass index (BMI) [Ratio] 29.63 kg/m2 Aubrey Dyer MD Work Phone: [facility] 09-06-2022 10:35-0400 Body temperature 97.3 [degF] Aubrey Dyer MD Work Phone: [facility] 09-06-2022 10:35-0400 Body weight 71.12 kg Aubrey Dyer MD Work Phone: [facility] 09-06-2022 10:35-0400 Diastolic blood pressure 74 mm[Hg] Aubrey Dyer MD Work Phone: [facility] 09-06-2022 10:35-0400 Heart rate 88 /min Aubrey Dyer MD Work Phone: [facility] 09-06-2022 10:35-0400 SaO2% (BldA) [Mass fraction] 93 % Aubrey Dyer MD Work Phone: [facility] 09-06-2022 10:35-0400 Systolic blood pressure 131 mm[Hg] Aubrey Dyer MD Work Phone: [facility] 08-17-2022 00:45-0400 Heart rate 105 /min Dr. Марина Zepeda Work Phone: [facility] 08-17-2022 00:45-0400 Respiratory rate 20 /min Dr. Марина Zepeda Work Phone: [facility] 08-16-2022 21:17-0400 Body height 154.[address] Марина Zepeda Work Phone: [facility] 08-16-2022 21:17-0400 Body mass index (BMI) [Ratio] 29.6 kg/m2 Dr. Марина Zepeda Work Phone: [facility] 08-16-2022 21:17-0400 Body temperature 97.6 [degF] Dr. Марина Zepeda Work Phone: [facility] 08-16-2022 21:17-0400 Body weight 71.[address] Марина Zepeda Work Phone: [facility] 08-16-2022 21:17-0400 Diastolic blood pressure 90 mm[Hg] Dr. Марина Zepeda Work Phone: [facility] 08-16-2022 21:17-0400 SaO2% (BldA) [Mass fraction] 97 % Dr. Марина Zepeda Work Phone: [facility] 08-16-2022 21:17-0400 Systolic blood pressure 188 mm[Hg] Dr. Марина Zepeda Work Phone: [facility] 08-14-2022 10:04-0400 Body height 154.9 cm Aubrey Dyer MD Work Phone: [facility] 08-14-2022 10:04-0400 Body mass index (BMI) [Ratio] 29.48 kg/m2 Aubrey Dyer MD Work Phone: [facility] 08-14-2022 10:04-0400 Body temperature 97.5 [degF] Aubrey Dyer MD Work Phone: [facility] 08-14-2022 10:04-0400 Body weight 70.76 kg Aubrey Dyer MD Work Phone: [facility] 08-14-2022 10:04-0400 Diastolic blood pressure 74 mm[Hg] Aubrey Dyer MD Work Phone: [facility] 08-14-2022 10:04-0400 Heart rate 84 /min Aubrey Dyer MD Work Phone: [facility] 08-14-2022 10:04-0400 SaO2% (BldA) [Mass fraction] 94 % Aubrey Dyer MD Work Phone: [facility] 08-14-2022 10:04-0400 Systolic blood pressure 124 mm[Hg] Aubrey Dyer MD Work Phone: [facility] 07-12-2022 14:25-0400 SaO2% (BldA) [Mass fraction] 95 % Joyce Brown APRN Work Phone: [employer] Comment on above: 2lpm o2 07-12-2022 14:16-0400 Body height 154.9 cm Joyce Brown APRN Work Phone: [facility] 07-12-2022 14:16-0400 Body mass index (BMI) [Ratio] 28.95 kg/m2 Joyce Brown APRN Work Phone: [employer] 07-12-2022 14:16-0400 Body temperature 98.01 [degF] Joyce Brown APRN Work Phone: [facility] 07-12-2022 14:16-0400 Body weight 69.49 kg Joyce Brown APRN Work Phone: [facility] 07-12-2022 14:16-0400 Diastolic blood pressure 78 mm[Hg] Joyce Brown APRN Work Phone: [employer] 07-12-2022 14:16-0400 Heart rate 99 /min Joyce Brown APRN Work Phone: [facility] 07-12-2022 14:16-0400 SaO2% (BldA) [Mass fraction] 94 % Joyce Brown APRN Work Phone: [facility] 07-12-2022 14:16-0400 Systolic blood pressure 127 mm[Hg] Joyce Brown APRN Work Phone: [facility] 07-11-2022 07:48-0400 Body height 154.9 cm Jazmin Moy PA-C Work Phone: [facility] 07-11-2022 07:48-0400 Body mass index (BMI) [Ratio] 29.85 kg/m2 Jazmin Moy PA-C Work Phone: [facility] 07-11-2022 07:48-0400 Body temperature 97.81 [degF] Jazmin Moy PA-C Work Phone: [facility] 07-11-2022 07:48-0400 Body weight 71.67 kg Jazmin Moy PA-C Work Phone: [facility] 07-11-2022 07:48-0400 Diastolic blood pressure 86 mm[Hg] Jazmin Moy PA-C Work Phone: [facility] 07-11-2022 07:48-0400 Heart rate 104 /min Jazmin Moy PA-C Work Phone: [facility] 07-11-2022 07:48-0400 SaO2% (BldA) [Mass fraction] 98 % Jazmin Moy PA-C Work Phone: [facility] 07-11-2022 07:48-0400 Systolic blood pressure 142 mm[Hg] Jazmin Moy PA-C Work Phone: [facility] 06-20-2022 10:01-0500 Diastolic blood pressure 82 mm[Hg] Dr. Марина Zepeda Work Phone: [facility] 06-20-2022 10:01-0500 Heart rate 110 /min Dr. Марина Zepeda Work Phone: [facility] 06-20-2022 10:01-0500 Respiratory rate 24 /min Dr. Марина Zepeda Work Phone: [facility] 06-20-2022 10:01-0500 SaO2% (BldA) [Mass fraction] 94 % Dr. Марина Zepeda Work Phone: [facility] 06-20-2022 10:01-0500 Systolic blood pressure 141 mm[Hg] Dr. Марина Zepeda Work Phone: [facility] 06-20-2022 09:40-0500 Inhaled oxygen flow rate 2 L/min Dr. Марина Zepeda Work Phone: [facility] 06-20-2022 08:31-0500 Inhaled oxygen flow rate 2 L/min Dr. Марина Zepeda Work Phone: [facility] 06-20-2022 07:40-0500 Body height 154.[address] Марина Zepeda Work Phone: [facility] 06-20-2022 07:40-0500 Body mass index (BMI) [Ratio] 29.9 kg/m2 Dr. Марина Zepeda Work Phone: [facility] 06-20-2022 07:40-0500 Body temperature 96.2 [degF] Dr. Марина Zepeda Work Phone: [facility] 06-20-2022 07:40-0500 Body weight 71.[address] Марина Zepeda Work Phone: [facility] 05-26-2022 10:09-0500 Body height 154.9 cm Jazmin Moy PA-C Work Phone: [facility] 05-26-2022 10:09-0500 Body mass index (BMI) [Ratio] 29.85 kg/m2 Jazmin Moy PA-C Work Phone: [facility] 05-26-2022 10:09-0500 Body temperature 98.2 [degF] Jazmin Moy PA-C Work Phone: [facility] 05-26-2022 10:09-0500 Body weight 71.67 kg Jazmin Moy PA-C Work Phone: [facility] 05-26-2022 10:09-0500 Diastolic blood pressure 80 mm[Hg] Jazmin Moy PA-C Work Phone: [facility] 05-26-2022 10:09-0500 Heart rate 91 /min Jazmin Moy PA-C Work Phone: [facility] 05-26-2022 10:09-0500 SaO2% (BldA) [Mass fraction] 98 % Jazmin Moy PA-C Work Phone: [facility] 05-26-2022 10:09-0500 Systolic blood pressure 147 mm[Hg] Jazmin Moy PA-C Work Phone: [facility] 05-02-2022 09:58-0500 Body height 154.9 cm Jazmin Moy PA-C Work Phone: [facility] 05-02-2022 09:58-0500 Body mass index (BMI) [Ratio] 30.61 kg/m2 Jazmin Moy PA-C Work Phone: [facility] 05-02-2022 09:58-0500 Body temperature 98.01 [degF] Jazmin Moy PA-C Work Phone: [facility] 05-02-2022 09:58-0500 Body weight 73.48 kg Jazmin Moy PA-C Work Phone: [facility] 05-02-2022 09:58-0500 Diastolic blood pressure 78 mm[Hg] Jazmin Moy PA-C Work Phone: [employer] [facility] 05-02-2022 09:58-0500 Heart rate 82 /min Jazmin Moy PA-C Work Phone: [facility] 05-02-2022 09:58-0500 SaO2% (BldA) [Mass fraction] 98 % Jazmin Moy PA-C Work Phone: [facility] 05-02-2022 09:58-0500 Systolic blood pressure 126 mm[Hg] Jazmin Moy PA-C Work Phone: [facility] 04-23-2022 04:04-0500 Diastolic blood pressure 91 mm[Hg] [facility] 04-23-2022 04:04-0500 Heart rate 106 /min [facility] 04-23-2022 04:04-0500 Respiratory rate 19 /min [facility] 04-23-2022 04:04-0500 SaO2% (BldA) [Mass fraction] 96 % [facility] 04-23-2022 04:04-0500 Systolic blood pressure 154 mm[Hg] [facility] 04-23-2022 01:38-0500 Inhaled oxygen flow rate 2 L/min [facility] 04-23-2022 00:31-0500 Body height 154.94 cm [facility] Work Phone: 04-23-2022 00:31-0500 Body mass index (BMI) [Ratio] 30.2 kg/m2 [facility] 04-23-2022 00:31-0500 Body temperature 97.9 [degF] [facility] 04-23-2022 00:31-0500 Body weight 72.57 kg [facility] 03-28-2022 12:43-0500 Heart rate 98 /min [facility] 03-28-2022 12:43-0500 Respiratory rate 18 /min [facility] 03-28-2022 12:43-0500 SaO2% (BldA) [Mass fraction] 98 % [facility] 03-28-2022 12:01-0500 Inhaled oxygen flow rate 2 L/min [facility] 03-28-2022 10:08-0500 Body temperature 96.8 [degF] [facility] 03-28-2022 10:08-0500 Diastolic blood pressure 90 mm[Hg] [facility] 03-28-2022 10:08-0500 Systolic blood pressure 171 mm[Hg] [facility] 03-28-2022 09:56-0500 Body height 154.94 cm [facility] Work Phone: 03-28-2022 09:56-0500 Body mass index (BMI) [Ratio] 30.4 kg/m2 [facility] 03-28-2022 09:56-0500 Body weight 73.02 kg [facility] 02-14-2022 19:44-0400 Diastolic blood pressure 87 mm[Hg] [facility] Work Phone: 02-14-2022 19:44-0400 Heart rate 103 /min [facility] Work Phone: 02-14-2022 19:44-0400 Inhaled oxygen flow rate 2 L/min [facility] Work Phone: 02-14-2022 19:44-0400 Respiratory rate 19 /min [facility] Work Phone: 02-14-2022 19:44-0400 SaO2% (BldA) [Mass fraction] 96 % [facility] Work Phone: 02-14-2022 19:44-0400 Systolic blood pressure 157 mm[Hg] [facility] Work Phone: 02-14-2022 15:32-0400 Body height 154.94 cm [facility] Work Phone: 02-14-2022 15:32-0400 Body mass index (BMI) [Ratio] 30.8 kg/m2 [facility] Work Phone: 02-14-2022 15:32-0400 Body temperature 97.9 [degF] [facility] Work Phone: 02-14-2022 15:32-0400 Body weight 73.93 kg [facility] Work Phone: 11-16-2021 13:18-0400 Heart rate 78 /min Aubrey Dyer MD Work Phone: [facility] 11-16-2021 13:18-0400 Respiratory rate 20 /min Aubrey Dyer MD Work Phone: [facility] 11-16-2021 13:18-0400 SaO2% (BldA) [Mass fraction] 96 % Aubrey Dyer MD Work Phone: [facility] 10-28-2021 17:14-0400 Diastolic blood pressure 87 mm[Hg] [facility] Work Phone: 10-28-2021 17:14-0400 Heart rate 93 /min [facility] Work Phone: 10-28-2021 17:14-0400 Respiratory rate 22 /min [facility] Work Phone: 10-28-2021 17:14-0400 SaO2% (BldA) [Mass fraction] 100 % [facility] Work Phone: 10-28-2021 17:14-0400 Systolic blood pressure 133 mm[Hg] [facility] Work Phone: 10-28-2021 14:18-0400 Body height 154.94 cm [facility] Work Phone: 10-28-2021 14:18-0400 Body mass index (BMI) [Ratio] 30.6 kg/m2 [facility] Work Phone: 10-28-2021 14:18-0400 Body temperature 98.1 [degF] [facility] Work Phone: 10-28-2021 14:18-0400 Body weight 73.48 kg [facility] Work Phone: 10-28-2021 14:18-0400 Inhaled oxygen flow rate 2 L/min [facility] Work Phone: 07-27-2021 23:03-0400 Diastolic blood pressure 92 mm[Hg] [facility] Work Phone: 07-27-2021 23:03-0400 Heart rate 78 /min [facility] Work Phone: 07-27-2021 23:03-0400 Inhaled oxygen flow rate 4 L/min [facility] Work Phone: 07-27-2021 23:03-0400 Respiratory rate 17 /min [facility] Work Phone: 07-27-2021 23:03-0400 SaO2% (BldA) [Mass fraction] 97 % [facility] Work Phone: 07-27-2021 23:03-0400 Systolic blood pressure 152 mm[Hg] [facility] Work Phone: 07-27-2021 18:39-0400 Body height 154.94 cm [facility] Work Phone: 07-27-2021 18:39-0400 Body mass index (BMI) [Ratio] 30.4 kg/m2 [facility] Work Phone: 07-27-2021 18:39-0400 Body temperature 98.6 [degF] [facility] Work Phone: 07-27-2021 18:39-0400 Body weight 73.02 kg [facility] Work Phone: 07-20-2021 10:08-0400 Diastolic blood pressure 67 mm[Hg] [facility] Work Phone: 07-20-2021 10:08-0400 Heart rate 81 /min [facility] Work Phone: 07-20-2021 10:08-0400 Respiratory rate 16 /min [facility] Work Phone: 07-20-2021 10:08-0400 SaO2% (BldA) [Mass fraction] 96 % [facility] Work Phone: 07-20-2021 10:08-0400 Systolic blood pressure 141 mm[Hg] [facility] Work Phone: 07-20-2021 08:08-0400 Inhaled oxygen flow rate 2 L/min [facility] Work Phone: 07-20-2021 08:00-0400 Body height 154.94 cm [facility] Work Phone: 07-20-2021 08:00-0400 Body mass index (BMI) [Ratio] 30.2 kg/m2 [facility] Work Phone: 07-20-2021 08:00-0400 Body temperature 97 [degF] [facility] Work Phone: 07-20-2021 08:00-0400 Body weight 72.57 kg [facility] Work Phone: 06-13-2021 13:58-0500 Diastolic blood pressure 101 mm[Hg] [facility] Work Phone: 06-13-2021 13:58-0500 Heart rate 84 /min [facility] Work Phone: 06-13-2021 13:58-0500 Respiratory rate 18 /min [facility] Work Phone: 06-13-2021 13:58-0500 Systolic blood pressure 176 mm[Hg] [facility] Work Phone: 06-13-2021 12:47-0500 SaO2% (BldA) [Mass fraction] 98 % [facility] Work Phone: 06-13-2021 10:28-0500 Body mass index (BMI) [Ratio] 30 kg/m2 [facility] Work Phone: 06-13-2021 10:28-0500 Body temperature 98 [degF] [facility] Work Phone: 06-13-2021 10:28-0500 Body weight 72.2 kg [facility] Work Phone: 10-08-2020 13:49-0400 Diastolic blood pressure 84 mm[Hg] Nathan Rodney MD Work Phone: [facility] Work Phone: 10-08-2020 13:49-0400 Heart rate 86 /min Nathan Rodney MD Work Phone: [facility] Work Phone: 10-08-2020 13:49-0400 Respiratory rate 20 /min Nathan Rodney MD Work Phone: [facility] Work Phone: 10-08-2020 13:49-0400 SaO2% (BldA) [Mass fraction] 100 % Nathan Rodney MD Work Phone: [facility] Work Phone: 10-08-2020 13:49-0400 Systolic blood pressure 157 mm[Hg] Nathan Rodney MD Work Phone: [facility] Work Phone: 10-08-2020 11:51-0400 Body height 157.5 cm Nathan Rodney MD Work Phone: [facility] Work Phone: 10-08-2020 11:51-0400 Body mass index (BMI) [Ratio] 30.36 kg/m2 Nathan Rodney MD Work Phone: [facility] Work Phone: 10-08-2020 11:51-0400 Body temperature 98.91 [degF] Nathan Rodney MD Work Phone: [facility] Work Phone: 10-08-2020 11:51-0400 Body weight 75.3 kg Nathan Rodney MD Work Phone: [facility] Work Phone: 09-07-2020 10:29-0400 Heart rate 80 /min Aubrey Dyer MD Work Phone: [facility] Work Phone: 09-07-2020 10:29-0400 Respiratory rate 20 /min [facility] Work Phone: 09-07-2020 10:29-0400 SaO2% (BldA) [Mass fraction] 98 % Aubrey Dyer MD Work Phone: [facility] Work Phone: 03-09-2020 16:12-0500 BMI (Body Mass Index) 32.19 kg/m2 [facility] [place] [place] [facility]-09-2020 16:12-0500 Body Temperature 97.59 [degF] Alejandro [facility] 03-09-2020 16:12-0500 Body weight 79.83 kg Alejandro [facility] , [place] 03-09-2020 16:12-0500 BP Diastolic 93 mm[Hg] Alejandro [facility] , [place] 03-09-2020 16:12-0500 BP Systolic 173 mm[Hg] Alejandro [facility] , [place] 03-09-2020 16:12-0500 Height 157.5 cm Alejandro [facility] , [place] 03-09-2020 16:12-0500 Pulse (Heart Rate) 77 /min Alejandro [facility] 03-09-2020 16:12-0500 Pulse Oximetry 100 % Alejandro [facility] , [place] 03-09-2020 16:12-0500 Respiratory Rate 16 /min [facility] [place] 01-07-2020 17:18-0400 BP Diastolic 74 mm[Hg] [facility] , [place] 01-07-2020 17:18-0400 BP Systolic 140 mm[Hg] [facility] [place] 01-07-2020 17:18-0400 Pulse (Heart Rate) 78 /min [facility] [place] 01-07-[facility] 17:18-0400 Pulse Oximetry 100 % [facility] , [place] 01-07-2020 17:18-0400 Respiratory Rate 14 /min Doug [facility], [place] 01-07-2020 15:36-0400 BMI (Body Mass Index) 32.19 kg/m2 Doug [facility] [place] 01-07-2020 15:36-0400 Body Temperature 98.29 [degF] [facility]-07[facility]2020 15:36-0400 Body weight 79.83 kg Doug [facility] [place] Encounters Encounter Date Encounter Type Care Provider Facility Start: 01-16-2025 End: 01-19-2025 ambulatory Hilary Hutson RN [facility] Start: 01-16-2025 End: 01-19-2025 Patient encounter procedure Hilary Hutson RN [facility] Start: 01-15-2025 End: 01-15-[address] Mumtaz Field MD -[facility] Work Phone: Start: 01-15-2025 End: 01-15-2025 ambulatory Mumtaz Field Facility:[facility] Start: 01-09-2025 End: 01-09-2025 Office outpatient visit 10 minutes Gentry Ross MD Work Phone: [facility] Comment on above: Excessive daytime sl eepiness (Primary Dx) Start: 01-09-2025 End: 01-09-2025 ambulatory [facility] Start: 01-02-2025 End: 01-02-2025 Telephone encounter Gentry Ross MD Work Phone: [facility] Start: 01-01-2025 End: 01-01-2025 ambulatory [facility] Start: 01-01-2025 End: 01-01-2025 Subsequent hospital visit by physician Gentry Ross MD Work Phone: [facility] Comment on above: SOB (shortness of br eath); Very severe chronic obstructive pulmonary disease (HCC); Chronic respiratory failure with hypoxia (HCC); Bronchiectasis without acute exacerbation (HCC) Start: 12-31-2024 End: 12-31-2024 Telephone encounter Gentry Ross MD Work Phone: [facility] [place] Comment on above: Care Coordination Start: 12-31-2024 End: 12-31-2024 ambulatory [facility] Start: 12-31-2024 End: 12-31-2024 Office outpatient visit 25 minutes Filipe Castellon MD Work Phone: [facility] [place] Comment on above: Chronic respiratory failure with hypoxia (HCC) (Primary Dx); COPD with acute exacerbation (HCC); Centrilobular emphysema (HCC); 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 Prosper Roman DO Work Phone: [facility] Start: 12-03-2024 End: 12-03-2024 ambulatory [facility] Start: 12-03-2024 End: 12-03-2024 Office outpatient visit 25 minutes Joyce Richardson WATCH AND [employer]OCK MAKER AND REPAIRER Work Phone: [facility] [place] Comment on above: COPD with acute exac erbation (HCC) (Primary Dx); Centrilobular emphysema (HCC); Immunoglobulin deficiency (HCC); Chronic respiratory failure with hypoxia (HCC); Lung nodule; Bronchiectasis without acute exacerbation (HCC); Personal history of tobacco use, presenting hazards to health Start: 12-03-2024 End: 12-03-2024 ambulatory [facility] Start: 11-25-2024 End: 11-25-2024 Orders Only Prosper Roman DO Work Phone: [facility] [place] Start: 11-24-2024 End: 11-24-2024 Orders Only [facility] Comment on above: COPD with acute exac erbation (HCC) Start: 11-14-2024 End: 11-17-2024 Refill Beny Smith ROD TAPE OPERATOR Work Phone: [facility] Comment on above: Centrilobular emphys suraj (HCC) Start: 11-12-2024 End: 11-25-2024 Refill Beny Smith ROD TAPE OPERATOR Work Phone: [facility] Comment on above: COPD with acute exac erbation (HCC); Centrilobular emphysema (HCC) Start: 11-11-2024 End: 11-11-[address] Mumtaz Field MD -[facility] Work Phone: Start: 11-11-2024 End: 11-11-[address] Prosper Roman DO Work Phone: -[facility] Start: 11-11-2024 End: 11-11-2024 ambulatory Mumtaz Field Facility:[facility] Start: 11-06-2024 End: 11-06-2024 Refill Prosper Roman DO Work Phone: [facility] Comment on above: COPD with acute exac erbation (HCC); Centrilobular emphysema (HCC) Start: 10-30-2024 End: 11-04-2024 Telephone encounter Joyce Richardson CNP Work Phone: [facility] Comment on above: Medication Problem Start: 10-23-2024 End: 10-27-2024 Telephone encounter Beny Smith ROD TAPE OPERATOR Work Phone: [facility] Comment on above: Thrush of mouth and esophagus (HCC) Start: 10-21-2024 End: 10-23-2024 Telephone encounter Beny Smith NP Work Phone: [facility] Start: 10-20-2024 End: 10-20-2024 Subsequent hospital visit by physician Beny Smith NP Work Phone: [facility] Comment on above: Very severe chronic obstructive pulmonary disease (HCC) Start: 10-20-2024 End: 10-20-2024 ambulatory [facility] Start: 10-20-2024 End: 10-20-2024 Office outpatient visit 25 minutes Beny Smith NP Work Phone: [facility] Comment on above: Chronic respiratory failure with hypoxia (HCC) (Primary Dx); IgG deficiency (HCC); COPD with acute exacerbation (HCC); Centrilobular emphysema (HCC); Lung nodule; Personal history of tobacco use, presenting hazards to health; Very severe chronic obstructive pulmonary disease (HCC); Wheezing; COPD exacerbation (HCC) Start: 10-20-2024 End: 10-20-2024 ambulatory [facility] Start: 10-17-2024 End: 10-21-2024 ambulatory Joyce Chino [facility] Comment on above: Very severe chronic obstructive pulmonary disease (HCC) (Primary Dx) Start: 09-29-2024 End: 10-15-2024 Telephone encounter Antony Guerin [facility] Dylan Dennis Comment on above: Med Management ([facility] ) Start: 09-10-2024 End: 09-10-2024 ambulatory [facility] Start: 08-28-2024 End: 08-28-2024 Office outpatient visit 25 minutes Filipe Castellon MD Work Phone: [facility] Comment on above: Very severe chronic obstructive pulmonary disease (HCC) (Primary Dx); Immunoglobulin deficiency (HCC); COPD with acute exacerbation (HCC); Lung nodule; Chronic respiratory failure with hypoxia (HCC) Start: 08-28-2024 End: 08-28-2024 ambulatory [facility] Start: 08-26-2024 End: 08-26-[address] Filipe Mancilla MD -[facility] Work Phone: Start: 08-26-2024 End: 08-26-2024 ambulatory [facility] Start: 08-21-2024 End: 08-21-2024 Orders Only Prosper Roman DO Work Phone: [facility] Start: 08-20-2024 End: 09-08-2024 Telephone encounter Prosper Roman DO Work Phone: [facility] Start: 08-20-2024 End: 08-20-2024 Assay of hemosiderin, quant Prosper Roman DO Work Phone: [facility] Start: 08-20-2024 End: 08-20-2024 Patient encounter procedure Prosper Roman DO Work Phone: [facility] Comment on above: Encounter for subseq uent annual wellness visit (AWV) in Medicare patient (Primary Dx); Acquired hypothyroidism; 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); Severe persistent asthma, uncomplicated; Primary hypertension; Immunoglobulin deficiency (HCC); Mixed hyperlipidemia; Routine general medical examination [facility] Start: 08-20-2024 End: 08-20-2024 ambulatory [facility] Start: 08-20-2024 End: 08-20-2024 Encounter for general adult medical examination without abnormal findings [facility] Start: 08-15-2024 End: 08-15-2024 Refill Prosper Roman DO Work Phone: [facility] Comment on above: Primary hypertension Start: 08-12-2024 End: 08-12-2024 Patient encounter procedure [facility]herelle [facility] Start: 08-12-2024 End: 08-12-2024 Office outpatient visit 15 minutes Jazmin Moy PA-C Work Phone: [facility] Comment on above: Chronic frontal sinu sitis (Primary Dx) Start: 08-12-2024 End: 08-12-2024 ambulatory Cherelle Field [facility] Start: 08-07-2024 End: 08-07-2024 Orders Only Prosper Roman DO Work Phone: [facility] Start: 07-30-2024 End: 07-30-2024 Patient encounter procedure Joyce Poole RN [facility] Clinical Communication Start: 07-30-2024 End: 07-30-2024 Office outpatient visit 25 minutes Jazmin Moy PA-C Work Phone: [facility] Comment on above: COPD exacerbation (H CC) (Primary Dx) Start: 07-30-2024 End: 07-30-2024 ambulatory Joyce Poole RN [facility] Clinical Communication Start: 07-22-2024 End: 07-25-2024 Telephone encounter Prosper Montoya Jessie DO [facility] Comment on above: Referral Start: 07-09-2024 End: 07-09-2024 ambulatory Joyce Chino RN [facility] Start: 07-07-2024 End: 07-23-2024 Telephone encounter Elida Campbell MD Work Phone: [facility] Comment on above: Cancelled Appointmen t Start: 07-02-2024 End: 07-03-2024 Telephone encounter Mone Disla DO Work Phone: [facility] Comment on above: Referral Start: 07-02-2024 End: 07-02-2024 Office outpatient visit 15 minutes Denise im3Dal GLASS SETTER - [employer] MAKER AND REPAIRER Work Phone: [facility] Comment on above: Acute non-recurrent frontal sinusitis (Primary Dx); COPD with acute exacerbation (HCC) Start: 07-02-2024 End: 07-02-2024 Office outpatient visit 25 minutes Denise Trellis [employer] GLASS SETTER - [employer] AND [employer] MAKER AND REPAIRER Work Phone: [facility] Comment on above: Acute non-recurrent frontal sinusitis (Primary Dx); COPD with acute exacerbation (HCC) Start: 07-02-2024 End: 07-02-2024 ambulatory PROSPER ROMAN [facility] Start: 07-01-2024 End: 07-01-2024 ambulatory Carrie Guo RN [facility] Clinical Communication Start: 07-01-2024 End: 07-01-2024 Patient encounter procedure Carrie Guo RN [facility] Clinical Communication Start: 06-30-2024 End: 06-30-2024 Refill Prosper Montoya Jessie DO Work Phone: [facility] Comment on above: Primary hypertension Start: 06-26-2024 End: 07-30-2024 Telephone encounter Prosper Montoya Jessie DO Work Phone: [facility] Comment on above: Referral Start: 06-23-2024 End: 06-23-2024 Telephone encounter Joyce Richardson CNP Work Phone: [facility] Start: 06-18-2024 End: 06-18-2024 Telephone encounter Joyce Richardson CNP Work Phone: [facility] Sleep Medicine [facility] Comment on above: Medication Question (Rx for Thrush) Start: 06-11-2024 End: 06-11-2024 Subsequent hospital visit by physician Joyce Richardson CNP Work Phone: [facility] Comment on above: COPD with acute exac erbation (HCC); Centrilobular emphysema (HCC) Start: 06-11-2024 End: 06-11-2024 ambulatory [facility] Start: 06-05-2024 End: 06-05-2024 Telephone encounter Joyce Richardson CNP Work Phone: [facility] Start: 05-28-2024 End: 05-28-2024 Office outpatient visit 25 minutes Joyce Richardson CNP Work Phone: [facility] Comment on above: COPD with acute exac erbation (HCC) (Primary Dx); Centrilobular emphysema (HCC); Wheezing; IgG deficiency (HCC); Chronic respiratory failure with hypoxia (HCC); Lung nodule; Personal history of tobacco use, presenting hazards to health Start: 05-28-2024 End: 05-28-2024 ambulatory PROSPER ROMAN [facility] Start: 05-19-2024 End: 05-19-2024 Office outpatient visit 25 minutes Jazmin Moy PA-C Work Phone: [facility] Comment on above: COPD exacerbation (H CC) (Primary Dx); Primary hypertension; Hypothyroidism, unspecified type; Mixed hyperlipidemia Start: 05-19-2024 End: 05-30-2024 ambulatory Angie Shi RN [facility] Clinical Communication Start: 05-19-2024 End: 05-30-2024 Patient encounter procedure Angie Shi RN [facility] Clinical Communication Start: 05-08-2024 End: 05-19-2024 Telephone encounter Joyce Brown APRN - [place] Work Phone: [facility] Sleep [facility] Comment on above: Cancelled Appointmen t Start: 05-02-2024 End: 07-13-2024 Telephone encounter Aubrey Dyer MD Work Phone: [facility] Clinical Communication Comment on above: Appointment Request Start: 04-28-2024 End: 04-28-2024 ambulatory Joyce Poole RN [facility] Clinical Communication Start: 04-28-2024 End: 04-28-2024 Patient encounter procedure Joyec Poole RN [facility] Clinical Communication Start: 04-11-2024 End: 04-11-2024 Orders Only Prosper Roman DO Work Phone: [facility] Comment on above: COPD exacerbation (H CC) Start: 03-24-2024 End: 04-27-2024 Telephone encounter Joyce Brown APRN - [place] Work Phone: [facility] Comment on above: Test Scheduling Start: 03-24-2024 End: 03-24-2024 Office outpatient visit 15 minutes Joyce Brown APRN - [place] Work Phone: [facility] Comment on above: COPD exacerbation (H CC) (Primary Dx); Centrilobular emphysema (HCC); Wheezing; IgG deficiency (HCC); Chronic respiratory failure with hypoxia (HCC); Nodule of upper lobe of right lung; Personal history of tobacco use, presenting hazards to health; Oral thrush Start: 03-24-2024 End: 03-24-2024 ambulatory [facility] Start: 03-18-2024 End: 03-18-2024 Telephone encounter Joyce Brown GLASS SETTER - [employer] MAKER AND REPAIRER Work Phone: [facility] Central Scheduling Comment on above: Other (Test schedule d) Start: 03-09-2024 End: 03-09-2024 Emergency department patient visit [facility] Start: 03-05-2024 End: 03-05-2024 Subsequent hospital visit by physician Prosper Roman DO Work Phone: [facility] Comment on above: Encounter for screen ing mammogram for malignant neoplasm of breast Start: 03-05-2024 End: 03-05-2024 ambulatory [facility] Start: 02-20-2024 End: 02-20-2024 Office outpatient visit 25 minutes Prosper Roman DO Work Phone: [facility] Comment on above: COPD exacerbation (H CC) (Primary Dx); Encounter for screening mammogram for malignant neoplasm of breast; Hypothyroidism, unspecified type; Mixed hyperlipidemia; Gastroesophageal reflux disease without esophagitis; Immunoglobulin deficiency (HCC); Chronic respiratory failure with hypoxia (HCC); Primary hypertension Start: 02-20-2024 End: 02-20-2024 ambulatory [facility] Start: 02-19-2024 End: 02-19-2024 Refill Prosper Roman DO Work Phone: [facility] Comment on above: COPD with acute exac erbation (HCC) Start: 01-30-2024 End: 01-30-2024 Office outpatient visit 15 minutes Joyce Brown APRN - [employer]ER AND REPAIRER Work Phone: [facility] [place] Comment on above: Centrilobular emphys suraj (HCC) (Primary Dx); Wheezing; IgG deficiency (HCC); Chronic respiratory failure with hypoxia (HCC); Nodule of upper lobe of right lung; Personal history of tobacco use, presenting hazards to health Start: 01-30-2024 End: 01-30-2024 Refill Joyce Richardson CNP Work Phone: [facility] Start: 01-10-2024 End: 01-10-2024 Subsequent hospital visit by physician Joyce Richardson CNP Work Phone: [facility] Non-Invasive Cardiology Comment on above: Chronic respiratory failure with hypoxia (HCC); SOB (shortness of breath) Start: 01-09-2024 End: 01-09-2024 Refill Shawn Escobar Work Phone: [facility] Sleep [facility] Start: 01-09-2024 End: 01-09-2024 Office outpatient visit 25 minutes Joyce Richardson CNP Work Phone: [facility] Comment on above: Centrilobular emphys suraj (HCC) (Primary Dx); Wheezing; IgG deficiency (HCC); Chronic respiratory failure with hypoxia (HCC); Nodule of upper lobe of right lung; Personal history of tobacco use, presenting hazards to health Centrilobular emphys suraj (HCC) (Primary Dx); Wheezing; IgG deficiency (HCC); Chronic respiratory failure with hypoxia (HCC); Nodule of upper lobe of right lung; Personal history of tobacco use, presenting hazards to health; SOB (shortness of breath) Start: 12-27-2023 End: 12-27-2023 Refill Prosper Roman DO Work Phone: [facility] Comment on above: Primary hypertension ; COPD with acute exacerbation (HCC) Start: 12-13-2023 End: 12-19-2023 Telephone encounter Filipe Castellon MD Work Phone: [facility] Comment on above: Other (BLVR Test Lavell eduling) Start: 12-13-2023 End: 12-13-2023 Subsequent hospital visit by physician Joyce Brown APRN - [employer] MAKER AND REPAIRER Work Phone: [facility] Radiology Comment on above: Chronic respiratory failure with hypoxia (HCC) Start: 12-12-2023 End: 12-12-2023 Office outpatient visit 25 minutes Joyce Brown GLASS SETTER - [employer] AND [employer] MAKER AND REPAIRER Work Phone: [facility] Comment on above: Chronic respiratory failure with hypoxia (HCC) (Primary Dx); Centrilobular emphysema (HCC); Nodule of upper lobe of right lung; Tobacco use disorder, severe, in sustained remission; Personal history of tobacco use, presenting hazards to health; COPD exacerbation (HCC) Chronic respiratory failure with hypoxia (HCC) (Primary Dx); Centrilobular emphysema (HCC); Nodule of upper lobe of right lung; Tobacco use disorder, severe, in sustained remission; Personal history of tobacco use, presenting hazards to health; COPD exacerbation (HCC); SOB (shortness of breath) Start: 11-15-2023 End: 11-15-2023 Refill Prosper Roman DO Work Phone: [facility] Comment on above: Gastroesophageal ref lux disease without esophagitis Start: 10-24-2023 End: 10-24-2023 Office outpatient visit 25 minutes Jazmin Moy PA-C Work Phone: [facility] Comment on above: COPD exacerbation (H CC) (Primary Dx); Mixed hyperlipidemia Start: 10-01-2023 Orders Only Prosper medina DO Work Phone: [facility] Comment on above: COPD with acute exac erbation (HCC) (Primary Dx); Centrilobular emphysema (HCC); Very severe chronic obstructive pulmonary disease (HCC) Primary hypertension Start: 09-19-2023 End: 09-19-2023 Office outpatient visit 25 minutes Jazmin Moy PA-C Work Phone: [facility] Comment on above: COPD with acute exac erbation (HCC) (Primary Dx) Start: 09-12-2023 Telephone encounter Prosper mcgee DO Work Phone: [facility] Comment on above: Referral Start: 09-11-2023 Refill Prosper Montoya Tevin adam DO Work Phone: [facility] Comment on above: Primary hypertension Start: 08-21-2023 End: 08-21-2023 Office outpatient visit 25 minutes Prosper Roman DO Work Phone: [facility] Comment on above: COPD exacerbation (H CC) (Primary Dx); Primary hypertension; Centrilobular emphysema (HCC); Very severe chronic obstructive pulmonary disease (HCC); Encounter for screening mammogram for malignant neoplasm of breast; Hypothyroidism, unspecified type Start: 07-18-2023 End: 07-18-2023 Office outpatient visit 25 minutes Aubrey Dyer MD Work Phone: [facility] Comment on above: Chronic respiratory failure with hypoxia (HCC) (Primary Dx); Centrilobular emphysema (HCC); Nodule of upper lobe of right lung; Tobacco use disorder, severe, in sustained remission; Very severe chronic obstructive pulmonary disease (HCC) Start: 07-04-2023 End: 07-04-2023 Office outpatient visit 15 minutes Denise Dean GLASS SETTER - WATCH AND [employer]OCK MAKER AND REPAIRER Work Phone: [facility] Medicine Comment on above: COPD exacerbation (H CC) (Primary Dx) Start: 06-11-2023 Orders Only Prosper Montoya Tevin gregorylizzy DO Work Phone: [facility] Medicine Comment on above: COPD exacerbation (H CC) Start: 06-08-2023 ambulatory Vania Hardin RN [facility] Communication Start: 06-08-2023 Patient encounter procedure [facility] Start: 06-05-2023 End: 06-05-2023 Subsequent hospital visit by physician Marjan Wall GLASS SETTER - WATCH AND [employer] MAKER AND REPAIRER Work Phone: [facility] CT Comment on above: Arrived Start: 06-04-2023 End: 06-04-2023 Subsequent hospital visit by physician Marjan Wall GLASS SETTER - W[employer] AND [employer] MAKER AND REPAIRER Work Phone: [facility] CT Comment on above: Cigarette smoker Start: 05-25-2023 Telephone encounter Marjan ferguson GLASS SETTER - WATCH AND [employer]OCK MAKER AND REPAIRER Work Phone: [facility] Start: 05-22-2023 End: 05-22-2023 Subsequent hospital visit by physician Marjan Wall GLASS SETTER - WATCH AND [employer] MAKER AND REPAIRER Work Phone: [facility] PFT Comment on above: Very severe chronic obstructive pulmonary disease (HCC) Start: 05-21-2023 End: 05-21-2023 Office outpatient visit 25 minutes Jazmin Moy PA-C Work Phone: [facility] Medicine Comment on above: COPD exacerbation (H CC) (Primary Dx) Start: 05-18-2023 ambulatory Sara Mancilla RN [facility] Cl inical Communication Start: 05-18-2023 Patient encounter procedure Sara [facility]ancilla [facility] Start: 05-17-2023 Telephone encounter Vic clay MD Work Phone: [facility]ro[facility]necology Comment on above: holding off on proce dures Start: 05-15-2023 End: 05-15-2023 Office outpatient new 45 minutes Vic Foley MD Work Phone: [facility] Comment on above: Vaginal prolapse (Pr imary Dx); Bladder prolapse, female, acquired; Vaginal discharge; Incontinence in female Start: 05-13-2023 End: 05-13-2023 Emergency department patient visit [facility] Work Phone: Start: 05-04-2023 Refill Marjan Wall GLASS SETTER - WATCH AND [employer] MAKER AND REPAIRER Work Phone: [facility] Comment on above: Very severe chronic obstructive pulmonary disease (HCC) Start: 04-26-2023 End: 04-26-2023 Office outpatient visit 25 minutes Inga Washington MD Work Phone: [facility] Medicine Comment on above: Bladder prolapse, fe male, acquired (Primary Dx); Vaginal discharge; Incontinence in female; COPD exacerbation (HCC); Acute bacterial conjunctivitis of right eye Start: 04-18-2023 Refill Marjan Wall GLASS SETTER - WATCH AND [employer] MAKER AND REPAIRER Work Phone: [facility] Comment on above: Very severe chronic obstructive pulmonary disease (HCC) Start: 04-17-2023 End: 04-17-2023 Office outpatient visit 40 minutes Marjan Wall GLASS SETTER - WATCH AND [employer] MAKER AND REPAIRER Work Phone: [facility] Comment on above: Very severe chronic obstructive pulmonary disease (HCC) (Primary Dx); Centrilobular emphysema (HCC); Chronic respiratory failure with hypoxia (HCC); Lung nodule; Immunoglobulin deficiency (HCC); Cigarette smoker Start: 04-12-2023 Telephone encounter Abena Villagomez RN [facility] Clinical Communication Start: 04-12-2023 End: 04-12-2023 Emergency department patient visit [facility] Work Phone: Start: 04-06-2023 ambulatory Maine Martines RN [facility] C linical Communication Start: 04-06-2023 Patient encounter procedure Maine Martines RN [facility] Clinical Communication Start: 03-28-2023 End: 03-28-2023 Office outpatient visit 15 minutes Jazmin Moy PA-C Work Phone: [facility] Comment on above: Centrilobular emphys suraj (HCC) (Primary Dx) Start: 03-28-2023 End: 03-28-2023 Subsequent hospital visit by physician [facility] Ed Xr Exam Room 1 [facility] Radiology Comment on above: Centrilobular emphys suraj (HCC) Start: 03-23-2023 Orders Only Jazmin Finch Work Phone: [facility] Start: 03-23-2023 End: 03-23-2023 Office outpatient visit 25 minutes Jazmin Moy PA-C Work Phone: [facility] Comment on above: COPD exacerbation (H CC) (Primary Dx); Primary hypertension; Screening for lipid disorders; Hypothyroidism, unspecified type; Gastroesophageal reflux disease without esophagitis; Centrilobular emphysema (HCC) Start: 02-06-2023 End: 02-06-2023 Office outpatient visit 25 minutes Jazmin Moy PA-C Work Phone: [facility] Comment on above: COPD exacerbation (H CC) (Primary Dx) Start: 01-24-2023 Orders Only Prosper medina DO Work Phone: [facility] Comment on above: Centrilobular emphys suraj (HCC) Release of Informati on Start: 01-16-2023 End: 01-16-[address] Марина Zepeda Work Phone: [facility] Work Phone: Start: 01-16-2023 End: 01-16-[address] Марина Zepeda Work Phone: [facility]-Laboratory Work Phone: Start: 01-02-2023 End: 01-02-[address] Марина Zepeda Work Phone: [facility]-Medical Out Work Phone: Start: 01-01-2023 Orders Only Prosper medina DO Work Phone: [facility] Comment on above: Centrilobular emphys suraj (HCC) Start: 12-22-2022 End: 12-22-2022 Emergency department patient visit Dr. Марина Zepeda Work Phone: [facility] Work Phone: Start: 12-06-2022 End: 12-06-2022 Office outpatient visit 25 minutes Aubrey Dyer MD Work Phone: [facility] Comment on above: Chronic respiratory failure with hypoxia (CMS/HCC) (HCC) (Primary Dx); Centrilobular emphysema (HCC); Nodule of upper lobe of right lung; Preop pulmonary/respiratory exam; Tobacco use disorder, severe, in sustained remission Start: 12-06-2022 End: 08-21-2023 Patient encounter status Aubrey Dyer MD Work Phone: [facility] Start: 10-30-2022 End: 10-30-[address] Марина Zepeda Work Phone: [facility] Endocrinology Work Phone: Start: 10-11-2022 Refill Prosper medina DO Work Phone: [facility] Comment on above: COPD with acute exac erbation (HCC) Start: 10-10-2022 End: 10-10-2022 Office outpatient visit 15 minutes Prosper Roman DO Work Phone: [facility] Comment on above: COPD exacerbation (H CC) (Primary Dx); Ventral hernia without obstruction or gangrene Start: 09-26-2022 ambulatory Savana irving RN [facility] Clinical Communication Start: 09-26-2022 Patient encounter procedure Savana Azul RN [facility] Clinical Communication Start: 09-26-2022 End: 09-26-2022 Office outpatient visit 15 minutes Jazmin Moy PA-C Work Phone: [facility] Comment on above: Diarrhea, unspecifie d type (Primary Dx) Start: 09-06-2022 End: 09-06-2022 Office outpatient visit 25 minutes Aubrey Dyer MD Work Phone: [facility] Comment on above: Preop pulmonary/resp iratory exam (Primary Dx); Chronic respiratory failure with hypoxia (CMS/HCC) (HCC); Centrilobular emphysema (HCC); Lung nodule; Tobacco use disorder, severe, in sustained remission; Immunoglobulin deficiency (HCC) Start: 09-06-2022 End: 09-06-2022 Patient encounter status Aubrey Dyer MD Work Phone: [facility] Start: 08-17-2022 Non-patient / Non-visit Dr. Bassem Zepeda Work Phone: [facility] Start: 08-16-2022 End: 08-17-2022 Emergency department patient visit Dr. Марина Zepeda Work Phone: [facility]-Emergency Department Start: 08-14-2022 End: 08-14-2022 Office outpatient visit 25 minutes Aubrey Dyer MD Work Phone: [facility] Comment on above: Chronic respiratory failure with hypoxia (CMS/HCC) (HCC) (Primary Dx); Centrilobular emphysema (HCC); Lung nodule; Tobacco use disorder, severe, in sustained remission; Immunoglobulin deficiency (HCC); COPD exacerbation (HCC) Start: 07-24-2022 Refill Prosper Lindsay Tevin medina DO Work Phone: [facility] Clinical Communication Start: 07-20-2022 End: 07-20-2022 Subsequent hospital visit by physician Jazmin Moy PA-C Work Phone: [facility] CT Comment on above: Closed fracture of o ne rib of right side with routine healing, subsequent encounter; Lung nodule Start: 07-12-2022 End: 07-12-2022 Office outpatient visit 15 minutes Joyce Brown APRN Work Phone: [facility] Comment on above: Centrilobular emphys suraj (CMS/HCC) (HCC) (Primary Dx); Chronic respiratory failure with hypoxia (CMS/HCC) (HCC); Lung nodule; Chronic obstructive pulmonary disease, unspecified COPD type (HCC) Start: 07-11-2022 End: 07-11-2022 Office outpatient visit 25 minutes Jazmin Moy PA-C Work Phone: [facility] Comment on above: COPD with acute exac erbation (CMS/HCC) (HCC) (Primary Dx); Essential hypertension; Hypothyroidism, unspecified type; Gastroesophageal reflux disease without esophagitis Start: 07-10-2022 ambulatory Brandi Nichols RN [facility] Clinical Communication Start: 07-10-2022 Patient encounter procedure Brandi Nichols RN [facility] Clinical Communication Start: 06-20-2022 End: 06-20-2022 Emergency department patient visit Dr. Марина Zepeda Work Phone: [facility]Emergency Department Start: 06-13-2022 Telephone encounter Jazmin powell PA-C Work Phone: [facility] Medicine Comment on above: Orders Start: 05-29-2022 Non-patient / Non-visit Dr. Bassem Zepeda Work Phone: [facility] Internal Medicine Start: 05-26-2022 End: 05-26-2022 Subsequent hospital visit by physician Jazmin Moy PA-C Work Phone: [facility] Radiology Comment on above: COPD with acute exac erbation (CMS/HCC) (HCC) Start: 05-26-2022 End: 05-26-2022 Office outpatient visit 25 minutes Jazmin Moy PA-C Work Phone: [facility] Comment on above: COPD with acute exac erbation (CMS/HCC) (HCC) (Primary Dx) Start: 05-25-2022 Telephone encounter Марина dennis DO Work Phone: [facility] Start: 05-02-2022 End: 05-02-2022 Office outpatient visit 15 minutes Jazmin Moy PA-C Work Phone: [facility] Comment on above: Closed fracture of o ne rib of right side with routine healing, subsequent encounter (Primary Dx); Lung nodule Start: 04-23-2022 End: 04-23-2022 [facility] Start: 03-28-2022 End: 03-28-2022 [facility] Start: 03-24-2022 Telephone encounter Марина dennis DO Work Phone: [facility] Comment on above: New Med Request ( Pr ednisone and antibiotic ) Start: 03-06-2022 ambulatory Marni Archuleta [facility] Start: 02-14-2022 End: 02-14-2022 [facility] Start: 02-04-2022 Transcribe Orders Aubrey mauricio MD Work Phone: [facility] Pulmonology Comment on above: Solitary pulmonary n odule (Primary Dx); Nicotine dependence, unspecified, in remission Solitary pulmonary n odule (Primary Dx) Start: 01-26-2022 ambulatory [facility] Start: 01-26-2022 End: 01-26-2022 Subsequent hospital visit by physician Aubrey Dyer MD Work Phone: [facility] Comment on above: Centrilobular emphys suraj (HCC) Start: 11-16-2021 ambulatory [facility] Start: 11-16-2021 End: 11-16-2021 Subsequent hospital visit by physician Aubrey Dyer MD Work Phone: [facility] [place] [facility] Comment on above: Centrilobular emphys suraj (HCC); Nicotine dependence, unspecified, in remission Start: 10-28-2021 End: 10-28-2021 [facility] Start: 09-08-2021 End: 09-08-2021 Subsequent hospital visit by physician Марина Zepeda DO Work Phone: [facility] M[facility] Comment on above: Screening mammogram, encounter for; Breast density; Unspecified lump in the left breast, lower outer quadrant Start: 07-27-2021 End: 07-27-2021 Emergency department patient visit [facility] Start: 07-20-2021 End: 07-20-2021 Emergency department patient visit [facility] Start: 06-13-2021 End: 06-13-2021 Emergency department patient visit [facility] Start: 05-13-2021 ambulatory Марина Blankcacarolyneo [facility] Start: 05-13-2021 End: 05-13-2021 Subsequent hospital visit by physician Kathryn Varghese MD Work Phone: [facility] Scan Comment on above: Solitary pulmonary n odule; Pulmonary nodule Start: 04-28-2021 ambulatory Марина Fortinoo [facility] Start: 03-10-2021 ambulatory Марина Blankcheo [facility] Start: 03-10-2021 End: 03-10-2021 Subsequent hospital visit by physician Aubrey Dyer MD Work Phone: [facility] Comment on above: COPD exacerbation (H CC); LRTI (lower respiratory tract infection) Start: 02-14-2021 ambulatory Марина Jacobson [facility] Start: 01-27-2021 End: 01-27-2021 Subsequent hospital visit by physician Kathryn Varghese MD Work Phone: [facility] Comment on above: Pulmonary nodule Start: 12-21-2020 End: 12-21-2020 Subsequent hospital visit by physician Aubrey Dyer MD Work Phone: [facility] Comment on above: Solitary pulmonary n odule; Lung nodule Start: 12-16-2020 End: 12-16-2020 Subsequent hospital visit by physician Aubrey Dyer MD Work Phone: [facility] Comment on above: Lung nodule; Essential hypertension Start: 12-08-2020 End: 12-08-2020 Subsequent hospital visit by physician Марина Zepeda DO Work Phone: [facility] Comment on above: Menopause Start: 10-08-2020 End: 10-08-2020 Emergency department patient visit Nathan Rodney MD Work Phone: [facility] [place] [facility] Comment on above: Pneumonia of right l hortencia due to infectious organism, unspecified part of lung (Primary Dx); COPD exacerbation (HCC) Start: 09-07-2020 End: 09-07-2020 Subsequent hospital visit by physician Aubrey Dyer MD Work Phone: [facility] Comment on above: Arrived Start: 08-02-2020 End: 08-02-2020 Subsequent hospital visit by physician Aubrey Dyer Work Phone: [facility] Comment on above: Moderate asthma, uns pecified whether complicated, unspecified whether persistent Start: 03-09-2020 End: 03-09-2020 Emergency department patient visit Alejandro Ne Work Phone: [facility] [place] [facility] Comment on above: Contusion of right s houlder, initial encounter (Primary Dx) Start: 02-16-2020 End: 02-16-2020 Subsequent hospital visit by physician Марина Zepeda Work Phone: [employer] Mamm[facility] Comment on above: Cyst of right breast ; Lump in upper inner quadrant of right breast Start: 01-27-2020 End: 01-27-2020 Subsequent hospital visit by physician Марина Zepeda Work Phone: [facility] Comment on above: Arrived Start: 01-07-2020 End: 01-07-2020 Emergency department patient visit Doug Horn Work Phone: [employer] ED Comment on above: Bronchitis (Primary Dx); COPD exacerbation (HCC); Cough with hemoptysis Start: 10-17-2019 End: 10-17-2019 Subsequent hospital visit by physician Марина Zepeda Work Phone: [facility] Comment on above: Right hip pain Start: 10-03-2019 End: 10-03-2019 Subsequent hospital visit by physician Марина Zepeda Work Phone: [facility] [employer] [facility] Comment on above: Right hip pain Start: 07-18-2019 End: 07-18-2019 Subsequent hospital visit by physician Марина Zepeda Work Phone: [facility] Comment on above: Hypokalemia Start: 06-20-2019 End: 06-20-2019 Subsequent hospital visit by physician Марина Zepeda Work Phone: [facility] Comment on above: Sprain of left ankle , unspecified ligament, initial encounter Start: 02-14-2019 End: 02-14-2019 Subsequent hospital visit by physician Марина Zepeda Work Phone: [facility] Comment on above: Arrived Start: 02-11-2019 End: 02-11-2019 Subsequent hospital visit by physician Марина Zepeda Work Phone: [employer] Laboratory Procedures Date Procedure Procedure Detail Performing Clinician Start: 01-01-2025 BODY FLUID DIFFERENTIAL Gentry Ross MD Work Phone: Start: 01-01-2025 Cell count misc body fluids w/differential count Gentry Ross MD Work Phone: Start: 01-01-2025 Respiratory pathogen s DNA and RNA panel - Lower respiratory specimen by NETO with non-probe detection Gentry Ross MD Work Phone: Start: 01-01-2025 Smr prim src gram/gi emsa stain bct fungi/cell Gentry Ross MD Work Phone: Start: 12-03-2024 Smr prim src gram/gi emsa stain bct fungi/cell Joyce Brown GLASS SETTER - WATCH AND [employer]OCK MAKER AND REPAIRER Work Phone: Start: 11-11-2024 Vitamin D, 25-hydrox y measurement Dr. Prosper Roman DO Work Phone: Comment on above: Vitamin D StatusDefi ciency: <20 ng/mL (50nmol/L)Insufficiency: 20-30 ng/mL (50-75 nmol/L)Sufficiency: 30-100 ng/mL (75-250 nmol/L)Toxicity: >100 ng/mL (>250 nmol/L) Start: 08-28-2024 Follow-up visit Follow-up FILIPE CASTELLON Start: 08-26-2024 Evaluation of diagno stic study results Dr. Prosper Roman DO Work Phone: Start: 08-21-2024 Lipid 1996 panel - S beverley or Plasma Filipe Castellon MD Work Phone: Start: 08-21-2024 Thyrotropin [Units/v olume] in Serum or Plasma Filipe Castellon MD Work Phone: Start: 08-20-2024 Adult depression scr eening assessment Prosper Roman DO Work Phone: Start: 03-05-2024 End: 03-05-2024 Screening digital breast tomosynthesis bi Prosper Roman DO Work Phone: Start: 02-20-2024 Adult depression scr eening assessment Prosper Roman DO Work Phone: Start: 01-10-2024 Echo tthrc r-t 2d w/ wom-mode compl spec&colr d Joyce Brown GLASS SETTER - WATCH AND [employer]OCK MAKER AND REPAIRER Work Phone: Start: 05-22-2023 Brncdilat rspse spmt ry pre&post-brncdilat admn Marajn Wall GLASS SETTER - [employer] AND [employer] MAKER AND REPAIRER Work Phone: Start: 05-13-2023 X-ray of cervical spine Start: 05-13-2023 Plain chest X-ray Start: 04-12-2023 Plain chest X-ray Start: 04-12-2023 Respiratory syncytia l virus antigen assay Start: 04-12-2023 SARS-CoV-2 & FLU Ant igen (Rapid) Start: 04-12-2023 Viral antigen assay Start: 03-28-2023 Radiologic exam ches t 2 [...] Plasma Jazmin Moy PA-C Work Phone: Start: 12-22-2022 CT cervical spine wi thout contrast Dr. Марина Zepeda Work Phone: Start: 08-16-2022 Computed tomography of abdomen and pelvis with intravenous contrast Dr. Марина Zepeda Work Phone: Start: 06-20-2022 Plain chest X-ray Dr. Jodi Zepeda Work Phone: Start: 05-26-2022 Radiologic exam ches t 2 views Jazmin Moy PA-C Work Phone: Start: 04-23-2022 X-ray of chest posteroanterior view Start: 04-10-2022 Thyrotropin [Units/v olume] in Serum or Plasma Joyce Brown APRN Work Phone: Start: 03-28-2022 Plain chest X-ray Start: 02-14-2022 Plain chest X-ray Start: 12-19-2021 Lipid 1996 panel - S beverley or Plasma Joyce Brown APRN Work Phone: Start: 11-16-2021 Brncdilat rspse spmt ry pre&post-brncdilat admn Aubrey Dyer MD Work Phone: Start: 10-28-2021 Plain chest X-ray Start: 09-08-2021 Us breast uni real t liliana with image limited Марина Zepeda DO Work Phone: Start: 09-08-2021 End: 09-08-2021 Diagnostic mammography computer-aided detcj uni Марина Parsoncakahlil DO Work Phone: Start: 07-27-2021 Plain chest X-ray Start: 07-27-2021 End: 07-27-2021 Viral antigen assay Start: 07-20-2021 Plain chest X-ray Start: 06-13-2021 CT of head without contrast Start: 05-13-2021 Ct thorax w/o contra st material Kathryn Varghese MD Work Phone: Start: 04-28-2021 Mammography Joyce wallace APRN Work Phone: Start: 03-10-2021 Smr prim src gram/gi emsa stain bct fungi/cell Aubrey Dyer MD Work Phone: Start: 01-27-[address] atten uation skull base mid-thigh Kathryn Varghese MD Work Phone: Start: 12-16-2020 Basic metabolic pane l calcium total Aubrey Dyer MD Work Phone: Start: 10-08-2020 Radiologic exam ches t 2 views Nathan Rodney MD Work Phone: Start: 09-07-2020 Brncdilat rspse spmt ry pre&post-brncdilat admn Aubrey Dyer MD Work Phone: Start: 03-09-2020 Radex shoulder compl ete minimum 2 views Alejandro Ne Work Phone: Start: 01-07-2020 Ct angiography chest w/contrast/noncontrast Doug [employer] Work Phone: Start: 01-07-2020 Assay of lactate Doug A [employer] Work Phone: Start: 01-07-2020 Assay of troponin quantitative [facility] [employer] Work Phone: Start: 01-07-2020 Blood count complete auto&auto difrntl wbc [facility] [employer] Work Phone: Start: 01-07-2020 Comprehensive metabo lic panel [facility] [employer] Work Phone: Start: 01-07-2020 Natriuretic peptide Tyl jatinder Ball [employer] Work Phone: Start: 01-07-2020 Prothrombin time Doug [employer] Work Phone: Start: 10-03-2019 Radex hip unilateral with pelvis 2-3 views Марина Zepeda Work Phone: Start: 07-18-2019 Potassium serum plas ma/whole blood Марина Zepeda Work Phone: Start: 06-20-2019 Radex ankle complete minimum 3 views Марина Zepeda Work Phone: Start: 02-14-2019 CT ABDOMEN PELVIS W CONTRAST Марина Zepeda Work Phone: Start: 02-11-2019 Creatinine blood Марина Zepeda Work Phone: Start: 11-05-2018 Colonoscopy Марина guillory DO Work Phone: SARS-CoV-2 & FLU Ant igen (Rapid) SARS-CoV-2 & FLU Ant igen (Rapid) Dr. Марина Zepeda Work Phone: SARS-CoV-2 & FLU Ant igen (Rapid) Dr. Марина Zepeda Work Phone: SARS-CoV-2 & FLU Ant igen (Rapid) Dr. Марина Zepeda Work Phone: Viral antigen assay Plan of Treatment Date Care Activity Detail Author Start: 08-21-2029 Lipid panel Lipid Panel [facility] Start: 11-05-2028 Colon cancer screen colonoscopy Colon cancer screen colonoscopy [place] Start: 11-05-2028 Screening for malignant neoplasm of colon [facility] Start: 03-23-2028 Lipid panel Lipid Panel [facility] Start: 12-19-2026 Lipid panel [facility] Start: 12-08-2026 DTaP/Tdap/Td vaccine (2 - Td or Tdap) DTaP/Tdap/Td vaccine (2 - Td or Tdap) [facility] Start: 12-08-2026 DTaP/Tdap/Td Vaccines (2 - Td or Tdap) DTaP/Tdap/Td Vaccines (2 - Td or Tdap) [facility] Start: 11-04-2025 Lipid panel [facility] Start: 08-21-2025 Thyroid stimulating hormone measurement TSH Level [facility] Start: 08-20-2025 Depression Screening Depression Screening [facility] Start: 04-10-2025 End: 04-10-2025 Patient encounter procedure 04/10/2025 11:40 AM EST Office Visit [facility] [address] [place] [address] Joyce Brown APRN - [facility] [address] [place] [address] [facility] Start: 03-05-2025 Screening for malignant neoplasm of breast Mammogram [facility] Start: 02-19-2025 Depression Screening Depression Screening [facility] Start: 02-17-2025 End: 02-17-2025 Clinical Support 02/17/2025 8:30 PM EDT Clinical Support [facility] Sleep Lab [address] [place] [phone] Gentry Ross MD [address] [place] [address] [facility] Sleep Lab Start: 01-09-2025 End: 01-09-2026 Polysomnography [facility] Routine Excessive daytime sleepiness Expected: 01/09/2025 (Approximate), Expires: 01/09/2026 [facility] Work Phone: Comment on above: Expected: 01/09/2025 (Approximate), Expi res: 01/09/2026 Start: 01-09-2025 End: 01-09-2025 Telemedicine consultation with patient 01/09/2025 11:15 AM EDT Telemedicine [facility] Nod[facility] [address] [phone] Gentry Ross MD [address] [place] [address] [facility] Start: 01-01-2025 End: 01-01-2025 Admission to same day surgery center 01/01/2025 3:30 PM EDT - 01/01/2025 4:00 PM EDT Surgery [facility] Endoscopy [address] [place] [address] Gentry Ross MD [address] [place] [address] INSPECTION BRONCHOSCOPY WITH BRONCHOALVEOLAR LAVAGE. POSSIBLE ENDOBRONCHIAL BIOPSIES, NEEDLE ASPIRATION, AND BRUSHINGS. [38553 (CPT ) +1 more] [facility] Endoscopy Comment on above: INSPECTION BRONCHOSCOPY WITH BRONCHOALVE OLAR LAVAGE. POSSIBLE ENDOBRONCHIAL BIOPSIES, NEEDLE ASPIRATION, AND BRUSHINGS. [76220 (CPT ) +1 more] Start: 01-01-2025 End: 01-01-2025 [facility] w/brncl alveolar lavage BRONCHOSCOPY, RIGID OR FLEXIBLE, WITHOUT ENDOBRONCHIAL ULTRASOUND SOB (shortness of breath) Very severe chronic obstructive pulmonary disease (HCC) Chronic respiratory failure with hypoxia (HCC) Bronchiectasis without acute exacerbation (HCC) 01/01/2025 3:30 PM EDT [facility] Start: 01-01-2025 Subsequent hospital visit by physician 01/01/2025 3:30 PM EDT Hospital Encounter [facility] [address] [place] [address] Gentry Ross MD [address] [place] [phone] [facility] Start: 12-31-2024 End: 12-31-2025 [id number] [facility] Work Phone: Comment on above: Expected: 12/31/2024 (Approximate), Expi res: 12/31/2025 Start: 12-31-2024 End: 12-31-2024 Patient encounter procedure 12/31/2024 10:15 AM EDT Office Visit [facility] [address] [place] [address] Filipe Castellon MD [address] [id number] [facility] Sleep [facility] Start: 12-22-2024 COVID-19 Vaccine ( season) COVID-19 Vaccine ( season) [facility] Start: 12-22-2024 Influenza vaccination Influenza Vaccine (#1) [facility] Start: 12-17-2024 End: 12-17-2024 Patient encounter procedure 12/17/2024 11:00 AM EDT Office Visit [facility] [address] [place] [address] Prosper Roman DO [address] [place] [address] [facility] Start: 12-03-2024 End: 12-03-2025 Bacteria identified in Lower respiratory specimen by Aerobe culture [facility] Work Phone: Comment on above: Expected: 12/03/2024 (Approximate), Expi res: 12/03/2025 Start: 12-03-2024 End: 12-03-2024 Patient encounter procedure 12/03/2024 10:40 AM EDT Office Visit [facility] [place] [place] [address] Joyce Brown, ROSALIND - WATCH AND CLOCK MAKER AND REPAIRER [address] [place] [address] [facility] Start: 10-20-2024 End: 10-20-2025 XR Chest 2 Views [facility] Work Phone: Comment on above: Expected: 10/20/2024, Expires: Once for 1 Occurrenc es starting 10/20/2024 until 10/20/2024 Start: 08-28-2024 End: 08-28-2024 Patient encounter procedure 08/28/2024 10:15 AM EDT Office Visit [facility] Sleep [place] [address] [place] [address] Filipe Castellon MD [address] [place] [address] [facility] Start: 08-20-2024 End: 08-20-2025 Lipid 1996 panel - Serum or Plasma Lipid panel Lab Routine Mixed hyperlipidemia Expected: 08/20/2024 (Approximate), Expires: 08/20/2025 [facility] Work Phone: Comment on above: Expected: 08/20/2024 (Approximate), Expi res: 08/20/2025 Start: 08-20-2024 End: 08-20-2025 Thyrotropin [Units/volume] in Serum or Plasma TSH Lab Routine Acquired hypothyroidism Expected: 08/20/2024 (Approximate), Expires: 08/20/2025 [facility] Comment on above: Expected: 08/20/2024 (Approximate), Expi res: 08/20/2025 Start: 08-20-2024 End: 08-20-2024 Patient encounter procedure 08/20/2024 11:30 AM EDT [facility] [address] [place] [address] Prosper Roman, [address] [place] [phone] [facility] Start: 07-16-2024 End: 07-16-2024 Patient encounter procedure 07/16/2024 9:00 AM EDT Office Visit [facility] [address] [place] [phone] Elida Campbell MD [address] [place] [address] [facility] Start: 07-02-2024 End: 07-02-2024 Patient encounter procedure 07/02/2024 11:00 AM EDT Office Visit [facility] [address] [place] [address] [place] [address] Denise Dean GLASS SETTER - WATCH AND CLOCK MAKER AND REPAIRER [address] [place] [address] [place] [address] [facility] Start: 06-11-2024 End: 06-11-2024 Patient encounter procedure 06/11/2024 4:00 PM EST Appointment [facility] CT Imaging [address] [place] [phone] Joyce Brown GLASS SETTER - WATCH AND CLOCK MAKER AND REPAIRER [address], [place] [address] [facility] [address] Imaging Start: 06-05-2024 Screening for malignant neoplasm of lung Lung Cancer Screening [facility] Start: 05-28-2024 End: 05-28-2025 CT Chest WO contrast CT chest wo IV contrast Imaging Routine COPD with acute exacerbation (HCC) Centrilobular emphysema (HCC) Expected: 05/28/2024 (Approximate), Expires: 05/28/2025 [facility] Work Phone: Comment on above: Expected: 05/28/2024 (Approximate), Expi res: 05/28/2025 Start: 05-28-2024 End: 05-28-2024 Patient encounter procedure 05/28/2024 11:10 AM EST Office Visit [facility] Sleep [facility] [address] [place] [address] Joyce Brown APRN - [employer] AND REPAIRER [address] [place] [address] [facility] Start: 05-19-2024 End: 05-19-2025 CBC W Auto Differential panel - Blood CBC auto differential Lab Routine COPD exacerbation (HCC) Expected: 05/19/2024 (Approximate), Expires: 05/19/2025 [facility] Comment on above: Expected: 05/19/2024 (Approximate), Expi res: 05/19/2025 Start: 05-19-2024 End: 05-19-2025 Comprehensive metabolic 1998 panel - Serum or Plasma Comprehensive metabolic panel Lab Routine COPD exacerbation (HCC) Expected: 05/19/2024 (Approximate), Expires: 05/19/2025 [facility] Work Phone: Comment on above: Expected: 05/19/2024 (Approximate), Expi res: 05/19/2025 Start: 04-28-2024 End: 04-28-2024 Patient encounter procedure 04/28/2024 11:00 AM EST Office Visit [facility] [address] [place] [address] Aubrey Dyer MD [address] [place] [address] [facility] Start: 04-23-2024 Medicare Advantage Annual Wellness Visit Medicare [employer]age Annual Wellness Visit [facility] Start: 04-02-2024 End: 04-02-2024 Patient encounter procedure 04/02/2024 10:00 AM EST Appointment [facility] Nuclear Medicine [address] [place] [phone] Joyce Brown APRN - [employer] AND REPAIRER [address] [place] [address] [facility] Nuclear Medicine Start: 03-24-2024 End: 03-24-2024 Patient encounter procedure 03/24/2024 10:10 AM EST Office Visit [facility] [place] [place] [address] Joyce Brown APRN - [employer] MAKER AND REPAIRER [address] [place] [address] [facility] Start: 03-23-2024 Thyroid stimulating hormone measurement TSH Level [facility] Start: 03-05-2024 End: 03-05-2024 Patient encounter procedure 03/05/2024 11:20 AM EST Appointment [facility] [address] [place] [address] Prosper Roman, [address] [place] [address] [facility] Start: 02-20-2024 End: 04-21-2025 DBT Breast - bilateral screening Bilateral screening mammogram with tomosynthesis Imaging Routine Encounter for screening mammogram for malignant neoplasm of breast Expected: 02/20/2024, Expires: 04/21/2025 [facility] Work Phone: Comment on above: Expected: 02/20/2024, Expires: Start: 02-20-2024 End: 02-20-2024 Patient encounter procedure [facility] Start: 01-30-2024 End: 01-30-2024 Patient encounter procedure 01/30/2024 11:40 AM EDT Office Visit [facility] [address] [place] [address] Joyce Brown GLASS SETTER - WATCH AND CLOCK MAKER AND REPAIRER [address], [place] [address] [facility] Sleep [facility] Start: 01-10-2024 End: 01-10-2024 Patient encounter procedure 01/10/2024 2:00 PM EDT Appointment [facility] Non-Invasive Cardiology [address] [place] [phone] Joyce Brown, GLASS SETTER - WATCH AND CLOCK MAKER AND REPAIRER [address], [place] [address] [facility] Non-Invasive Cardiology Start: 12-23-2023 COVID-19 Vaccine ( season) COVID-19 Vaccine ( season) [facility] Start: 12-23-2023 COVID-19 Vaccine ( season) COVID-19 Vaccine ( season) [facility] Start: 12-23-2023 Influenza vaccination [facility] Start: 12-12-2023 End: 12-11-2024 Arterial Blood Gas Arterial Blood Gas Procedures Routine Chronic respiratory failure with hypoxia (HCC) Centrilobular emphysema (HCC) Expected: 12/12/2023 (Approximate), Expires: 12/11/2024 [facility] Comment on above: Expected: 12/12/2023 (Approximate), Expi res: 12/11/2024 Start: 12-12-2023 End: 12-11-2024 Bacteria identified in Lower respiratory specimen by Aerobe culture Respiratory culture and Stain Microbiology Routine COPD exacerbation (HCC) Expected: 12/12/2023 (Approximate), Expires: 12/11/2024 [facility] Comment on above: Expected: 12/12/2023 (Approximate), Expi res: 12/11/2024 Start: 12-12-2023 End: 12-11-2024 Fungus identified in Unspecified specimen by Culture Fungal Culture Microbiology Routine COPD exacerbation (HCC) Expected: 12/12/2023 (Approximate), Expires: 12/11/2024 [facility] Comment on above: Expected: 12/12/2023 (Approximate), Expi res: 12/11/2024 Start: 12-12-2023 End: 12-11-2024 NM lung ventilation perfusion aerosol NM lung ventilation perfusion aerosol Imaging Routine Chronic respiratory failure with hypoxia (HCC) Centrilobular emphysema (HCC) Expected: 12/12/2023, Expires: 12/11/2024 [facility] Comment on above: Expected: 12/12/2023, Expires: Start: 12-12-2023 End: 12-11-2024 US Heart Transthoracic Transthoracic echocardiogram (TTE) complete with contrast, bubble, strain, and 3D PRN CV Echocardiography Routine Chronic respiratory failure with hypoxia (HCC) Expected: 12/12/2023 (Approximate), Expires: 12/11/2024 [facility] Work Phone: Comment on above: Expected: 12/12/2023 (Approximate), Expi res: 12/11/2024 Start: 12-12-2023 End: 12-11-2024 XR Chest 2 Views XR chest 2 views Imaging Routine Chronic respiratory failure with hypoxia (HCC) Expected: 12/12/2023, Expires: 12/11/2024 [facility] Comment on above: Expected: 12/12/2023, Expires: Start: 11-19-2023 End: 11-19-2023 Patient encounter procedure [facility] Start: 09-20-2023 Lipid panel Lipid screen [place], [place] Start: 09-20-2023 Lipid screen Lipid screen [place] Start: 09-09-2023 Screening for malignant neoplasm of breast Breast cancer screen [facility] Start: 08-21-2023 End: 10-20-2024 DBT Breast - bilateral screening Bilateral screening mammogram with tomosynthesis Imaging Routine Encounter for screening mammogram for malignant neoplasm of breast Expected: 08/21/2023, Expires: 10/20/2024 [facility] Work Phone: Comment on above: Expected: 08/21/2023, Expires: Start: 08-21-2023 End: 08-21-2023 Patient encounter procedure 08/21/2023 1:30 PM EDT Office Visit [facility] [address] [place] [address] Prosper Roman DO [address] [place] [phone] [facility] Start: 07-18-2023 End: 07-18-2023 Patient encounter procedure 07/18/2023 11:40 AM EDT Office Visit [facility] [address] [place] [address] Aubrey Dyer MD [address] [place], [place] [phone] [facility] Start: 07-06-2023 End: 07-06-2023 Patient encounter procedure 07/06/2023 2:30 PM EDT Office Visit [facility] [address] [place] [phone] Vic Foley MD [address] [facility], [address] [place] [address] [facility] Start: 06-05-2023 End: 06-05-2023 Patient encounter procedure 06/05/2023 10:45 AM EST Appointment [facility] [address] [place] [address] Marjan Wall, GLASS SETTER - WATCH AND CLOCK MAKER AND REPAIRER [address] [place], [place] [phone] [facility] [address] Start: 06-04-2023 End: 06-04-2023 Patient encounter procedure 06/04/2023 10:15 AM EST Appointment [facility] CT [address] [place] [address] Marjan Wall, GLASS SETTER - WATCH AND CLOCK MAKER AND REPAIRER [address] [place] [address] [facility] [address] Start: 06-04-2023 Subsequent hospital visit by physician 06/04/2023 10:15 AM EST Hospital Encounter [facility] [address] [place] [phone] Marjan Wall, GLASS SETTER - WATCH AND CLOCK MAKER AND REPAIRER [address] [place] [address] [facility] [address] Start: 06-02-2023 End: 04-17-2024 CT Chest for screening WO contrast CT lung screening low dose Imaging Routine Cigarette smoker Expected: 06/02/2023, Expires: 04/17/2024 [facility] Work Phone: Comment on above: Expected: 06/02/2023, Expires: Start: 05-22-2023 End: 05-22-2023 Patient encounter procedure 05/22/2023 12:00 PM EST Appointment [facility] PFT [address] [place] [phone] Marjan Wall, GLASS SETTER - WATCH AND CLOCK MAKER AND REPAIRER [address] [place] [address] [facility] PFT Start: 05-22-2023 Subsequent hospital visit by physician 05/22/2023 12:00 PM EST Hospital Encounter [facility] PFT [address] [place] [phone] Marjan Wall, GLASS SETTER - WATCH AND CLOCK MAKER AND REPAIRER [address] [place] [address] [facility] PFT Start: 05-21-2023 End: 05-21-2023 Patient encounter procedure 05/21/2023 2:20 PM EST Office Visit [facility] [address] [place] [phone] Jazmin Moy PA-C [address] [place] [address] [facility] Start: 05-13-2023 [facility] Start: 04-28-2023 Screening for malignant neoplasm of breast Breast cancer screen [facility] Start: 04-26-2023 End: 04-26-2024 Bacterial vaginosis and vaginitis rRNA panel - Vaginal fluid by Probe Vaginitis Panel MVP PCR Microbiology Routine Vaginal discharge Expected: 04/26/2023 (Approximate), Expires: 04/26/2024 [facility] Work Phone: Comment on above: Expected: 04/26/2023 (Approximate), Expi res: 04/26/2024 Start: 04-23-2023 Medicare Advantage Annual Wellness Visit Medicare Advantage Annual Wellness Visit [facility] Start: 04-17-2023 End: 04-17-2024 Complete PFT pre and post bronchodilator Complete PFT pre and post bronchodilator PFT Routine Very severe chronic obstructive pulmonary disease (HCC) Expected: 04/17/2023 (Approximate), Expires: 04/17/2024 [facility] Comment on above: Expected: 04/17/2023 (Approximate), Expi res: 04/17/2024 Start: 04-17-2023 End: 04-17-2024 Complete PFT pre and post bronchodilator with FENO Complete PFT pre and post bronchodilator with FENO PFT Routine Very severe chronic obstructive pulmonary disease (HCC) Expected: 04/17/2023 (Approximate), Expires: 04/17/2024 [facility] Comment on above: Expected: 04/17/2023 (Approximate), Expi res: 04/17/2024 Start: 04-17-2023 End: 04-17-2023 Patient encounter procedure 04/17/2023 11:20 AM EST Office Visit [facility] [address] [place] [address] Marjan Wall, GLASS SETTER - WATCH AND [employer]OCK MAKER AND REPAIRER [address] [place] [address] [facility] Start: 04-12-2023 [facility] Start: 04-12-2023 [facility] Start: 04-10-2023 Thyroid stimulating hormone measurement TSH Level [facility] Start: 03-27-2023 End: 03-27-2024 XR Chest 2 Views XR chest 2 views Imaging Routine Centrilobular emphysema (HCC) Expected: 03/27/2023, Expires: 03/27/2024 [facility] Work Phone: Comment on above: Expected: 03/27/2023, Expires: Start: 03-23-2023 End: 03-23-2024 Comprehensive metabolic 1998 panel - Serum or Plasma Comprehensive metabolic panel Lab Routine Primary hypertension Expected: 03/23/2023 (Approximate), Expires: 03/23/2024 [facility] Work Phone: Comment on above: Expected: 03/23/2023 (Approximate), Expi res: 03/23/2024 Start: 03-23-2023 End: 03-23-2024 Lipid 1996 panel - Serum or Plasma Lipid panel Lab Routine Screening for lipid disorders Expected: 03/23/2023 (Approximate), Expires: 03/23/2024 [facility] Comment on above: Expected: 03/23/2023 (Approximate), Expi res: 03/23/2024 Start: 03-23-2023 End: 03-23-2024 Thyrotropin [Units/volume] in Serum or Plasma TSH Lab Routine Hypothyroidism, unspecified type Expected: 03/23/2023 (Approximate), Expires: 03/23/2024 [facility] Comment on above: Expected: 03/23/2023 (Approximate), Expi res: 03/23/2024 Start: 03-23-2023 End: 03-23-2023 Patient encounter procedure 03/23/2023 9:00 AM EST Office Visit [facility] [address] [place] [address] Jazmin Moy PA-C [address] [place] [address] [facility] Start: 03-19-2023 End: 03-19-2023 Patient encounter procedure 03/19/2023 10:40 AM EST Office Visit [facility] [address] [place] [id number] Aubrey Dyer MD [address] [place] [address] [facility] Start: 01-25-2023 Depression Screen Depression Screen [facility] Start: 01-02-2023 Iv infusion therapy/prophylaxis /dx 1st to 1 hr THER/PROPH/DIAG IV INF [facility] Start: 12-22-2022 COVID-19 Vaccine () COVID-19 Vaccine () [facility] Start: 12-22-2022 Influenza vaccination [facility] Start: 12-08-2022 Screening for osteoporosis Bone Density Scan [facility] Start: 12-06-2022 End: 12-06-2022 Patient encounter procedure [facility] Start: 11-08-2022 Screening for osteoporosis Bone Density Scan [facility] Start: 10-05-2022 Depression Screen Depression Screen [facility] Start: 09-08-2022 Screening for malignant neoplasm of breast Mammogram [facility] Start: 08-14-2022 End: 08-14-2022 Patient encounter procedure 08/14/2022 Office Visit Pulmonology Aubrey Dyer MD [address] [place] [address] [facility] Start: 07-20-2022 End: 07-20-2022 Patient encounter procedure 07/20/2022 Appointment Radiology Jazmin Moy PA-C [address] [place] [address] [facility] [address] Start: 07-20-2022 Subsequent hospital visit by physician 07/20/2022 Hospital Encounter Radiology Jazmin Moy PA-C [address] [place] [address] [facility] [address] Start: 07-12-2022 End: 07-12-2022 Patient encounter procedure 07/12/2022 Office Visit Pulmonology Joyce Brown APRN [address] [place] [address] [facility] Start: 06-20-2022 End: 06-20-2022 Inhalation therapy procedure [facility] Start: 06-12-2022 End: 06-12-2022 Patient encounter procedure 06/12/2022 Office Visit Pulmonology Aubrey Dyer MD [address] [place] [address] [facility] Start: 06-06-2022 Depression Screen Depression Screen [facility] Start: 05-26-2022 End: 05-26-2022 Patient encounter procedure 05/26/2022 Office Visit Family Medicine Jazmin Moy PA-C [address] [place] [address] [facility] Start: 05-13-2022 Screening for malignant neoplasm of lung Low dose CT lung screening [facility] Start: 05-02-2022 End: 05-02-2023 CT Chest WO contrast CT chest wo IV contrast Imaging Routine Closed fracture of one rib of right side with routine healing, subsequent encounter Lung nodule Expected: 05/02/2022, Expires: 05/02/2023 [facility] Work Phone: Comment on above: Expected: 05/02/2022, Expires: Start: 04-28-2022 Screening for malignant neoplasm of breast Mammogram [facility] Start: 04-23-2022 Incentive spirometry [facility] Start: 04-23-2022 [facility] Start: 04-23-2022 End: 04-23-2022 [facility] Start: 04-23-2022 Inhalation therapy procedure [facility] Start: 04-10-2022 End: 04-10-2022 Patient encounter procedure 04/10/2022 Office Visit Family Medicine Марина Zepeda DO [address] [place] [address] [facility] [place] Start: 03-28-2022 Plain chest X-ray Chest 1 View (Portable) [facility] Work Phone: Start: 03-28-2022 XR Chest Single view [facility] Work Phone: Start: 03-28-2022 [facility] Start: 03-09-2022 Depression Screen Depression Screen [facility] Start: 03-06-2022 End: 03-06-2022 Patient encounter procedure 03/06/[address]22 [address] [facility] [address] Scan Start: 02-15-2022 Screening for malignant neoplasm of breast Breast cancer screen [facility] Start: 02-04-2022 End: 02-04-2023 CT Chest WO contrast [facility] Work Phone: Comment on above: Expected: 02/04/2022, Expires: Start: 01-27-2022 Screening for malignant neoplasm of lung Low dose CT lung screening [facility] Start: 01-25-2022 End: 01-25-2022 Patient encounter procedure 01/25/2022 Office Visit Pulmonology Aubrey Dyer MD [address] [place] [address] [facility] Start: 12-22-2021 Influenza vaccination [facility] Start: 12-16-2021 Creatinine measurement Creatinine monitoring [facility] Work Phone: Start: 12-16-2021 Potassium monitoring Potassium monitoring [facility] Work Phone: Start: 12-15-2021 End: 12-15-2021 Patient encounter procedure 12/15/2021 Office Visit Family Medicine Марина Zepeda DO [address] [place] [address] [facility] Start: 11-21-2021 Influenza vaccination Flu vaccine (#1) [facility] Start: 11-11-2021 Potassium monitoring Potassium monitoring [facility] Work Phone: Start: 11-08-2021 Screening for osteoporosis Bone Density Scan [facility] Start: 11-04-2021 Creatinine measurement Creatinine monitoring [facility] Work Phone: Start: 11-04-2021 Thyroid stimulating hormone measurement TSH testing [facility] Start: 10-05-2021 End: 10-05-2021 Patient encounter procedure 10/05/2021 Office Visit Pulmonology Aubrey Dyer MD [address] [place], [place] [phone] [facility] Start: 09-14-2021 Pneumococcal 65+ years Vaccine (2 of 2 - PPSV23) Pneumococcal 65+ years Vaccine (2 of 2 - PPSV23) [place], [place] Start: 07-27-2021 [facility] Work Phone: Start: 06-06-2021 End: 06-06-2021 Patient encounter procedure 06/06/2021 Office Visit Pulmonology Aubrey Dyer MD [address] [place], [place] [phone] [facility] Start: 05-20-2021 End: 05-20-2021 Patient encounter procedure 05/20/2021 Office Visit Pulmonology Marni Archuleta APRN - WATCH AND [employer]OCK MAKER AND REPAIRER [address] [place] [address] [facility] Start: 03-16-2021 COVID-19 Vaccine (4 - Booster for Moderna series) COVID-19 Vaccine (4 - Booster for Moderna series) [facility] Start: 03-11-2021 End: 03-11-2021 Patient encounter procedure 03/11/2021 Office Visit Pulmonology Kathryn Varghese MD [address] [place] [address] [facility] Start: 03-09-2021 Annual Wellness Visit (AWV) Annual Wellness Visit (AWV) [facility] Start: 02-22-2021 End: 02-22-2021 ambulatory 02/22/2021 Virtual Visit Pulmonology Kathryn Varghese MD [address] [place], [place] [phone] [address] [facility] Start: 02-14-2021 End: 02-14-2021 Patient encounter procedure 02/14/2021 Appointment IP Unit Kathryn Varghese MD [address] [place] [address] [phone] [facility] Start: 02-04-2021 Potassium monitoring Potassium monitoring [facility], [place] Start: 01-14-2021 COVID-19 Vaccine (5 - Booster for Moderna series) COVID-19 Vaccine (5 - Booster for Moderna series) [facility] Start: 01-06-2021 Creatinine measurement Creatinine monitoring [facility] [place] [place] Start: 01-06-2021 Potassium monitoring Potassium monitoring [facility], [place] Start: 01-06-2021 Screening for malignant neoplasm of lung Low dose CT lung screening [facility], [place] Start: 01-05-2021 End: 01-05-2021 Patient encounter procedure 01/05/2021 Office Visit Sports Medicine Fam Kern MD [address] [place] [address] [address] [place] [address] [phone] [facility] [place] Start: 12-22-2020 Influenza vaccination [facility] Work Phone: Start: 12-21-2020 Subsequent hospital visit by physician 12/21/2020 Hospital Encounter Radiology Aubrey Dyer MD [address] [place], [place] [phone] Solitary pulmonary nodule [facility] [address] [facility] Comment on above: Solitary pulmonary nodule Start: 12-21-2020 Annual Wellness Visit (AWV) Annual Wellness Visit (AWV) [facility] Work Phone: Start: 12-16-2020 End: 12-16-2020 Patient encounter procedure 12/16/2020 Office Visit Orthopedic Surgery Jan Rangel MD [address] [facility] [address] [place] [address] [phone] [facility] [address] Start: 12-15-2020 Annual Wellness Visit (AWV) Annual Wellness Visit (AWV) [facility] Work Phone: Start: 12-15-2020 End: 12-15-2020 Patient encounter procedure 12/15/2020 Office Visit Pulmonology Aubrey Dyer MD [address] [place] [phone] [facility] Start: 12-09-2020 End: 12-09-2020 ambulatory 12/09/2020 Virtual Visit Family Medicine Prosper Roman, DO [address] [place] [address] [phone] [facility] Start: 11-08-2020 COVID-19 Vaccine (5 - Booster for Moderna series) COVID-19 Vaccine (5 - Booster for Moderna series) [facility] Start: 11-08-2020 COVID-19 Vaccine (5 - Moderna risk series) COVID-19 Vaccine (5 - Moderna risk series) [facility] Start: 11-04-2020 End: 11-04-2020 Office Visit 11/04/2020 Office Visit Family Medicine Марина Zepeda DO [address] [place] [address] [phone] [facility] Start: 10-18-2020 Breast cancer screen Breast cancer screen [facility], [place] Start: 10-18-2020 Screening for malignant neoplasm of breast Breast cancer screen [place], [place] Start: 10-11-2020 COVID-19 Vaccine (2 - Moderna risk 4-dose series) COVID-19 Vaccine (2 - Moderna risk 4-dose series) [facility] Start: 09-13-2020 End: 09-13-2020 Patient encounter procedure 09/13/2020 Office Visit Pulmonology Aubrey Dyer MD [address] [place] [address] [phone] [facility] Start: 09-06-2020 Annual Wellness Visit (AWV) Annual Wellness Visit (AWV) [facility] Work Phone: Start: 08-19-2020 End: 08-19-2020 Office Visit 08/19/2020 Office Visit Orthopedic Surgery Jan Rangel MD [address] [place] [address] [phone] [facility] [place] Start: 08-06-2020 End: 08-06-2020 Procedure visit 08/06/2020 Procedure visit Pulmonology [facility] Start: 07-17-2020 Potassium monitoring Potassium monitoring [facility] [place] Start: 07-06-2020 Creatinine measurement Creatinine monitoring [facility] [place] Start: 07-06-2020 Creatinine monitoring Creatinine monitoring [facility] [place] Start: 07-06-2020 Potassium monitoring Potassium monitoring [facility] [place] Start: 07-06-2020 Thyroid stimulating hormone measurement TSH testing [facility] Work Phone: Start: 07-06-2020 TSH Qn TSH testing [facility] [place] Start: 07-06-2020 TSH testing TSH testing [facility] [place] Start: 02-16-2020 End: 02-16-2020 Appointment 02/16/2020 Appointment Radiology [facility] Start: 02-12-2020 Creatinine monitoring Creatinine monitoring [facility] [place] [facility] [place] Start: 02-05-2020 End: 02-05-2020 Office Visit 02/05/2020 Office Visit Family Medicine Марина Zepeda, DO [address] [place] [address] [phone] [facility] Start: 12-23-2019 Influenza vaccination Flu vaccine (#1) [place] Start: 06-30-2019 End: 06-30-2019 Office Visit 06/30/2019 Office Visit Family Medicine Марина Zepeda, [address] [place] [address] [phone] [facility] Start: 03-18-2019 TSH testing TSH testing [place], [place] Start: 02-12-2019 Hospital Encounter 02/12/2019 Hospital Encounter Radiology Марина Zepeda, DO [address] [place] [address] [phone] Start: 11-20-2018 Potassium monitoring Potassium monitoring [place] Start: 2017 DEXA (modify frequency per FRAX score) DEXA (modify frequency per FRAX score) [place] Start: 01-05-2017 DTaP/Tdap/Td Vaccines (2 - Td or Tdap) DTaP/Tdap/Td Vaccines (2 - Td or Tdap) [facility] Start: 2012 RSV Immunization aged 60 or older (1 - 1-dose 60+ series) RSV Immunization aged 60 or older (1 - 1-dose 60+ series) [facility] Start: 2012 RSV Immunization for Adults (1 - Risk 60-74 years 1-dose series) RSV Immunization for Adults (1 - Risk 60-74 years 1-dose series) [facility] Start: 2007 DEXA (modify frequency per FRAX score) DEXA (modify frequency per FRAX score) [place], [place] Start: [address] lung screening Low dose CT lung screening [place] Start: 2007 Screening for malignant neoplasm of lung Low dose CT lung screening [place] Start: 2007 Screening for osteoporosis DEXA (modify frequency per FRAX score) [place] Start: 2002 Screening for malignant neoplasm of lung Low dose CT lung screening [facility] Start: 1997 Screening for malignant neoplasm of colon [facility] Start: 1992 Diabetes screen Diabetes screen [place] Start: 1971 DTaP/Tdap/Td vaccine (1 - Tdap) DTaP/Tdap/Td vaccine (1 - Tdap) [place] Start: 1971 Hepatitis A Vaccines (1 of 2 - Risk 2-dose series) Hepatitis A Vaccines (1 of 2 - Risk 2-dose series) [facility] Start: 1970 Diabetes mellitus screening Diabetes Screening [facility] Start: 1970 Hepatitis C screening [facility] Start: 1968 COVID-19 Vaccine (1) COVID-19 Vaccine (1) [facility] Work Phone: Start: 1964 COVID-19 Vaccine (1) COVID-19 Vaccine (1) [facility] Work Phone: Start: 1964 Depression Screening Depression Screening [facility] Start: 1963 DTaP/Tdap/Td vaccine (1 - Tdap) DTaP/Tdap/Td vaccine (1 - Tdap) [place] Start: 1952 Hepatitis B Vaccines (1 of 3 - 3-dose series) Hepatitis B Vaccines (1 of 3 - 3-dose series) [facility] Start: 1952 Hepatitis C screen Hepatitis C screen [place], [place] Start: 1952 Hepatitis C screening Hepatitis C screen [facility] Start: 1952 Screening for malignant neoplasm of colon [facility] Bacteria identified in Lower respiratory specimen by Aerobe culture Respiratory culture and Stain Microbiology Routine COPD exacerbation (HCC) 12/13/2023 10:00 AM EDT [facility] Bacteria identified in Lower respiratory specimen by Aerobe culture Respiratory culture and Stain Microbiology Routine SOB (shortness of breath) Very severe chronic obstructive pulmonary disease (HCC) Chronic respiratory failure with hypoxia (HCC) Bronchiectasis without acute exacerbation (HCC) 01/01/2025 4:50 PM EDT [facility] Complete PFT Study P re and Post Bronchodilator Complete PFT Study Pre and Post Bronchodilator PFT Routine 09/07/2020 10:24 AM EDT [facility] Work Phone: Comprehensive metabo lic 2000 panel - Serum or Plasma [facility] End: 06-04-2023 CT Chest for screening WO contrast [facility] Work Phone: Comment on above: Once for 1 Occurrences starting 06/04/19 24 until 06/04/2023 End: 12-21-2020 CT Chest W Contrast CT Chest W Contrast Imaging Routine Lung nodule 1 Occurrences starting 12/21/2020 until 12/21/2020 [facility] Work Phone: Comment on above: 1 Occurrences starting 12/21/2020 until 12/21/2020 CT Chest W Contrast CT Chest W C ontrast Imaging Routine Lung nodule 12/21/2020 3:48 PM EDT [facility] Work Phone: End: 07-20-2022 CT Chest WO contrast [facility] Work Phone: Comment on above: Once for 1 Occurrences starting 07/21/19 23 until 07/20/2022 End: 06-11-2024 CT Chest WO contrast [facility] Work Phone: Comment on above: Once for 1 Occurrences starting 06/11/19 25 until 06/11/2024 End: 12-08-2020 DEXA Bone Density Axial Skeleton DEXA Bone Density Axial Skeleton Imaging Routine Menopause 1 Occurrences starting 12/08/2020 until 12/08/2020 [facility] Work Phone: Comment on above: 1 Occurrences starting 12/08/2020 until 12/08/2020 DEXA Bone Density Ax ial Skeleton DEXA Bone Density Axial Skeleton Imaging Routine Menopause 12/08/2020 9:57 AM EDT [facility] Work Phone: EKG 12 Lead - Chest Pain EKG 12 Lead - Chest Pain ECG STAT 01/07/2020 3:45 PM EDT [facility], [place] Fungus identified in Unspecified specimen by Culture Fungal Culture Microbiology Routine COPD exacerbation (HCC) 12/13/2023 10:00 AM EDT [facility] Fungus identified in Unspecified specimen by Culture [facility] Comment on above: Release Upon Ordering for 1 Occurrences starting 01/01/2025 Fungus identified in Unspecified specimen by Fungus stain [facility] Comment on above: Release Upon Ordering for 1 Occurrences starting 01/01/2025 End: 08-02-2020 IgE Qn IgE Lab Routine Moderate asthma, unspecified whether complicated, unspecified whether persistent 1 Occurrences starting 08/02/2020 until 08/02/2020 [facility] Work Phone: Comment on above: 1 Occurrences starting 08/02/2020 until 08/02/2020 IgE Qn IgE Lab Routine Moderate asthma, unspecified whether complicated, unspecified whether persistent 08/02/2020 10:53 AM EDT [facility] Work Phone: End: 02-16-2020 MONET MITCHELL DIGITAL DIAGNOSTIC BILATERAL MONET MITCHELL DIGITAL DIAGNOSTIC BILATERAL Imaging Routine Once for 1 Occurrences starting 02/16/2020 until 02/16/2020 [facility] Comment on above: Once for 1 Occurrences starting 02/16/20 until 02/16/2020 MONET MITCHELL DIGITAL DIAGNOSTIC BILATERAL MONET MITCHELL DIGITAL DIAGNOSTIC BILATERAL Imaging Routine 02/16/2020 3:46 PM EDT [place] [facility] End: 01-26-2022 Microscopic observation [Identifier] in Unspecified specimen by Gram stain [facility] Work Phone: Comment on above: Once for 1 Occurrences starting 01/27/20 until 01/26/2022 End: 10-17-2019 MRI LOWER EXTREMITY RIGHT W JT WO CONTRAST MRI LOWER EXTREMITY RIGHT W JT WO CONTRAST Imaging Routine Right hip pain 1 Occurrences starting 10/17/2019 until 10/17/2019 [facility] on above: 1 Occurrences starting 10/17/2019 until 10/17/2019 MRI LOWER EXTREMITY RIGHT W JT WO CONTRAST MRI LOWER EXTREMITY RIGHT W JT WO CONTRAST Imaging Routine Right hip pain 10/17/2019 3:15 PM EDT [place] [facility] Mycobacterium sp identified in Unspecified specimen by Organism specific culture [facility] Comment on above: Release Upon Ordering for 1 Occurrences starting 01/01/2025 [facility]necologic [facility] Work Phone: Comment on above: Release Upon Ordering for 1 Occurrences starting 01/01/2025 OUTSIDE PROCEDURE SCAN OUTSIDE P ROCEDURE SCAN Procedures Ordered: 07/18/2022 [facility] Comment on above: Ordered: 07/18/2022 OUTSIDE PROCEDURE SCAN OUTSIDE P ROCEDURE SCAN Procedures Ordered: 07/19/2022 [facility] Comment on above: Ordered: 07/19/2022 OUTSIDE PROCEDURE SCAN OUTSIDE P ROCEDURE SCAN Procedures Ordered: 05/21/2023 [facility] Comment on above: Ordered: 05/21/2023 OUTSIDE PROCEDURE SCAN OUTSIDE P ROCEDURE SCAN Procedures Ordered: 06/01/2023 [facility] Comment on above: Ordered: 06/01/2023 OUTSIDE PROCEDURE SCAN OUTSIDE P ROCEDURE SCAN Procedures Ordered: 05/26/2022 [facility] Comment on above: Ordered: 05/26/[address] [facility] Work Phone: Patient referral [facility] Work Phone: End: 03-10-2021 Respiratory Culture [facility] Work Phone: Comment on above: 1 Occurrences starting 03/10/2021 until 03/10/2021 End: 01-26-2022 [facility] Work Phone: Comment on above: 1 Occurrences starting 01/26/2022 until 01/26/2022 End: 02-16-2020 US Breast Limited Right US Breast Limited Right Imaging Routine Cyst of right breast Lump in upper inner quadrant of right breast 1 Occurrences starting 02/16/2020 until 02/16/2020 [facility] on above: 1 Occurrences starting 02/16/2020 until 02/16/2020 US BREAST LIMITED RIGHT US BREAS T LIMITED RIGHT Imaging Routine Cyst of right breast Lump in upper inner quadrant of right breast 02/16/2020 4:13 PM EDT [facility] Vitamin D, 25-hydrox y measurement [facility] XR Chest 2 Views XR chest 2 view s Imaging Routine Centrilobular emphysema (HCC) 03/28/2023 9:12 AM EST [facility] End: 12-13-2023 XR Chest 2 Views [facility] Comment on above: Once for 1 Occurrences starting 12/13/19 24 until 12/13/2023 Immunizations Immunization Date Immunization Notes Care Provider Bailey hayes 02-04-2024 Seasonal trivalent influenza vaccine, adjuvanted, preservative free Prosper Roman DO Work Phone: [facility] 02-04-2024 influenza virus vacc ine, unspecified formulation Joyce Chino RN [facility] 01-10-2023 zoster vaccine recombinant Prosper Roman DO Work Phone: [facility] 12-28-2022 Pneumococcal Conjuga te PCV20, Pf (Prevnar 20) Prosper Roman DO Work Phone: [facility] 08-01-2021 zoster vaccine recombinant Prosper Roman DO Work Phone: [facility] 05-21-2021 zoster vaccine recombinant Марина Zepeda DO Work Phone: [facility] Work Phone: 02-03-2021 Influenza, High-dose , Quadv, 65 yrs +, IM (Fluzone) Aubrey Dyer MD Work Phone: [facility] Work Phone: 02-03-2021 influenza virus vacc ine, unspecified formulation Joyce Brown APRN Work Phone: [facility] 02-02-2021 Influenza virus vaccine [facility] 02-02-2021 influenza virus vacc ine, unspecified formulation Kathryn Varghese MD Work Phone: [facility] Work Phone: 02-02-2021 influenza, seasonal, injectable Prosper Roman DO Work Phone: [facility] 09-13-2020 COVID-19, Moderna, P F, 100mcg/0.5mL Aubrey Dyer MD Work Phone: [facility] Work Phone: 08-24-2020 COVID-19, Moderna, Primary or Immunocompromised, PF, 100mcg/0.5mL Kathryn Varghese MD Work Phone: [facility] Work Phone: 07-30-2020 COVID-19, Moderna, Primary or Immunocompromised, PF, 100mcg/0.5mL Kathryn Varghese MD Work Phone: [facility] Work Phone: 06-29-2020 COVID-19, Moderna, Primary or Immunocompromised, PF, 100mcg/0.5mL Kathryn Varghese MD Work Phone: [facility] Work Phone: 04-07-2020 influenza, high dose seasonal, preservative-free Aubrey Dyer MD Work Phone: [facility] Work Phone: 04-07-2020 influenza, seasonal, injectable Prosper Petrilla DO Work Phone: [facility] 02-02-2020 Influenza, injectabl e, quadrivalent, preservative free Prosper Petrilla DO Work Phone: [facility] 01-14-2020 tuberculin skin test ; purified protein derivative solution, intradermal [facility] 11-13-2019 zoster vaccine recombinant Kathryn Varghese MD Work Phone: [facility] Work Phone: 01-15-2019 influenza, high dose seasonal, preservative-free Aubrey Dyer MD Work Phone: [facility] 01-15-2019 influenza, seasonal, injectable Prosper Petrilla DO Work Phone: [facility] 12-23-2018 influenza, high dose seasonal, preservative-free [facility], [place] 12-23-2018 Influenza, High-dose Seasonal, Quadrivalent, Preservative Free Prosper Petrilla DO Work Phone: [facility] 11-12-2018 pneumococcal polysaccharide vaccine, 23 valent Kathryn Varghese MD Work Phone: [facility] Work Phone: 02-20-2018 influenza, high dose seasonal, preservative-free Aubrey Dyer MD Work Phone: [facility] Work Phone: 10-26-2017 pneumococcal conjuga te vaccine, 13 valent Kathryn Varghese MD Work Phone: [facility] Work Phone: 02-05-2017 Influenza, injectabl e, Madin Anita Canine Kidney, preservative free, quadrivalent Prosper Jessie DO Work Phone: [facility] 12-08-2016 tetanus toxoid, redu kristina diphtheria toxoid, and acellular pertussis vaccine, adsorbed Kathryn Varghese MD Work Phone: [facility] Work Phone: 12-08-2016 zoster vaccine, live Kathryn ann MD Work Phone: [facility] Work Phone: 09-14-2016 pneumococcal polysaccharide vaccine, 23 valent Марина [place] 09-13-2015 pneumococcal conjuga te vaccine, 13 valent [facility] 09-04-2013 measles, mumps and rubella virus vaccine Kathryn Varghese MD Work Phone: [facility] Work Phone: 03-30-2007 pneumococcal polysaccharide vaccine, 23 valent [facility] [place] Payers Date Payer Category Payer Self-pay [id number] 2023 Medicare HMO [id number] 2023 Medicare [id number] 2021 Unknown 2014 Medicare MEDICARE MEDICAR E PART A AND B xxxxxxxxxxx 2014-Present [phone] [place] [address] xxxxxxxxxxx [id number] 2014 Unknown BC[place] P PO xxxxxxxxxxxxxxx 2014-Present [address] [place] [address] xxxxxxxxxxxxxxx [id number] 2013 Unknown [id number] 2008 Medicare [id number] 2008 Medicare 1950 Unknown [id number] 1950 Unknown [id number]. 1950 Unknown [id number]. 1950 Unknown [id number]. 1950 Unknown [id number]. 1950 Unknown [id number] [id number]. 1950 Unknown [id number] [id number]. Unknown [employer] OTHER [id number] Unknown [id number] Unknown [id number] Unknown [id number] Unknown [id number] Unknown [id number] Unknown [id number] Social History Date Type Detail Facility Start: 01-20-2019 End: 12-20-2024 Tobacco smoking status NHIS Former smoker [facility] Start: 09-14-1955 End: 12-01-2008 History of tobacco use Current smoker [place] Start: [birth year]-14-1955 End: 12-01-2008 History of tobacco use Cigarette [place] Start: 01-20-2019 End: 07-09-2024 Cigarettes smoked current (pack per day) - Reported [place] Start: 01-20-2019 End: 07-09-2024 Alcohol intake No [place] Start: 07-09-2018 End: 11-01-2021 History SDOH Alcohol Frequency 1 [place] Start: 07-09-2018 End: 11-01-2021 History SDOH Social Connections Phone 5 [place] Start: 07-09-2018 End: 10-15-2018 History SDOH Social Connections Get Together 2 [place] Start: 07-09-2018 History SDOH Social Connections Living 3 [place] Start: 07-09-2018 History SDOH Physica l Activity DPW 0 [place] Start: 07-09-2018 History SDOH Education 13 [place] Start: 1950 Sex Assigned At Not on file M [place] Start: 05-07-2019 End: 01-01-2025 Alcohol intake Current non-drinker of alcohol (finding) [place] Exposure to SARS-CoV -2 (event) Unable to assess [place] Start: 01-07-2020 End: 01-09-2024 Tobacco use and exposure Never used [place] Start: 01-15-2022 End: 12-06-2022 Exposure to SARS-CoV-2 (event) Not sure [place] Exposure to SARS-CoV -2 (event) Yes [facility] Work Phone: Start: 09-06-2020 History SDOH Financial 4 [facility] Work Phone: Start: 07-20-2021 End: 05-13-2023 Tobacco smoking status NHIS Unknown if ever smoked [facility] Start: 07-22-[address] [facility] Start: 04-27-[address] [facility] Start: 07-22-2014 Spouse/ Signif icant Other [facility] Start: 06-07-[address] [facility] Start: 1950 Sex Assigned At Female [facility] Start: 04-26-2023 Gender identity Identifies as female gender (finding) [facility] Start: 04-26-2023 Sexual orientation Heterosexual (fin kodi) [facility] Start: 11-21-2021 Sex Female (finding) [facility] How often do you nee d to have someone help you when you read instructions, pamphlets, or other written material from your doctor or pharmacy [SILS] Never [facility] Has the [employer], [employer], or water [facility] threatened to shut off services in your home in past 12Mo No [facility] Are you now , , , , never or living with a partner? [facility] How often to you hav e a drink containing alcohol? Never [facility] Do you feel stress - tense, restless, nervous, or anxious, or unable to sleep at night because your mind is troubled all the time - these days [OSQ] Not at all [facility] (I/We) worried wheth er (my/our) food would run out before (I/we) got money to buy more. Never true [facility] Start: 01-06-2025 Alcoholic beverage intake Lifetime non-drinker (finding) [facility] Goals Date Patient Goal Desired Activity /State Personal health goal Comment on above: Formatting of this n ote might be different from the original. Manage COPD and reduce hospital flare-ups. Comment on above: Breathe better Barriers: overwhelmed by complexity of regimen Plan for overcoming my barriers: have no plan Confidence: [phone] Anticipated Goal Completion Date: lifetime Formatting of this n ote might be different from the original. Breathe better Barriers: overwhelmed by complexity of regimen Plan for overcoming my barriers: have no plan Confidence: 08/30 Anticipated Goal Completion Date: lifetime Comment on above: Patient stated Goal: I will bring my medication bag with all of my medications in it to my next office visit, to make sure that I am taking the correct medications, at the right time and the correct dose Barrier: Forget Plan for overcoming my barriers: Leave medication bag in sight, put note on calendar, set an alarm on phone with date and why Confidence: Anticipated goal date: Bring medication bag to your office visits Formatting of this n ote might be different from the original. Patient stated Goal: I will bring my medication bag with all of my medications in it to my next office visit, to make sure that I am taking the correct medications, at the right time and the correct dose Barrier: Forget Plan for overcoming my barriers: Leave medication bag in sight, put note on calendar, set an alarm on phone with date and why Confidence: Anticipated goal date: Bring medication bag to your office visits Formatting of this n ote is different from the original. Patient stated Goal: I will bring my medication bag with all of my medications in it to my next office visit, to make sure that I am taking the correct medications, at the right time and the correct dose Barrier: Forget Plan for overcoming my barriers: Leave medication bag in sight, put note on calendar, set an alarm on phone with date and why Confidence: Anticipated goal date: Bring medication bag to your office visits Functional Status Date Assessment Result Facility 08-20-2024 Patient Health Quest ionnaire 2 item (PHQ-2) [Reported] [facility] 08-20-2024 Little interest or p casa in doing things Not at all 08/20/2024 12:12 AM EDT Mychart, Generic Not at all [facility] 08-20-2024 Feeling down, depres sed, or hopeless Not at all 08/20/2024 12:12 AM EDT Mychart, Generic Not at all [facility] Mental Status Date Assessment Result Facility 01-15-2025 Cognitive function Voice/Name [facility] Work Phone: 05-13-2023 Cognitive function Level Of Cons ciousness Awake;Alert;Appropriate;Follow s Commands [facility] Work Phone: 01-02-2023 Cognitive function Voice/Name [facility] Work Phone: 12-22-2022 Cognitive function Level Of Cons ciousness Awake;Alert;Appropriate;Follow s Commands [facility] Work Phone: 06-13-2021 Cognitive function Level Of Cons ciousness Awake;Alert;Appropriate [facility] Work Phone: Clinical Notes 03-24-2022 to 01-19-2025 Telephone Encounter - Luz Elena Torres RN - 01/19/2025 1:44 PM EDTTelephone Encounter - Luz Elena Torres RN - 01/19/2025 1:44 PM EDTTelephone Encounter - Hilary Hutson RN - 01/16/2025 9:33 AM EDT Note Date & Type Note Facility 01-19-2025 Telephone encounter Note This RN reached out to patient to clarify message sent from [facility]. Patient reiterated that she was instructed to hold her Lipitor while taking Fluconazole and that is when her wheezing finally stopped. She now feels the Lipitor was contributing to her wheezing and states she has not restarted taking it and does not want to. This RN informed patient she should not abruptly stop taking medication especially without discussing with her physician first. Encouraged patient to follow up with primary care and discuss side effects and alternative treatments before stopping medications. [facility] 01-19-2025 Miscellaneous Notes This RN reached out to patient to clarify message sent from [facility]. Patient reiterated that she was instructed to hold her Lipitor while taking Fluconazole and that is when her wheezing finally stopped. She now feels the Lipitor was contributing to her wheezing and states she has not restarted taking it and does not want to. This RN informed patient she should not abruptly stop taking medication especially without discussing with her physician first. Encouraged patient to follow up with primary care and discuss side effects and alternative treatments before stopping medications. S: Patient spoke with [facility] nurse regarding medication concern B: Onset of symptoms/concern today A: Patient has COPd and wheezing, currently had pulmonology procedure on 01/01/[address] Ross: INSPECTION BRONCHOSCOPY WITH BRONCHOALVEOLAR LAVAGE. POSSIBLE ENDOBRONCHIAL BIOPSIES, NEEDLE ASPIRATION, AND BRUSHINGS Patient states she took prednisone for approximately 3 months. Was also taking atorvastatin (Lipitor) 10 mg tablets daily. Patient completed her course of prednisone, stopped taking her Lipitor and the audible wheezing has improved (returned to normal for patient). Patient doesn't have a PCP at this time, patient will call her insurance for referral to another PCP. Message is being sent to Dr. Castellon's office for follow up with patient. . Patient instructed to call back with new or worsening symptoms. Reason for Disposition Caller has NON-URGENT medicine question about med that PCP or specialist prescribed and triager unable to answer question Protocols used: Medication Question [id number] documented in this encounter [facility] 01-16-2025 Telephone encounter Note S: Patient spoke with [facility] nurse regarding medication concern B: Onset of symptoms/concern today A: Patient has COPd and wheezing, currently had pulmonology procedure on 01/01/[address] Ross: INSPECTION BRONCHOSCOPY WITH BRONCHOALVEOLAR LAVAGE. POSSIBLE ENDOBRONCHIAL BIOPSIES, NEEDLE ASPIRATION, AND BRUSHINGS Patient states she took prednisone for approximately 3 months. Was also taking atorvastatin (Lipitor) 10 mg tablets daily. Patient completed her course of prednisone, stopped taking her Lipitor and the audible wheezing has improved (returned to normal for patient). Patient doesn't have a PCP at this time, patient will call her insurance for referral to another PCP. Message is being sent to Dr. Castellon's office for follow up with patient. . Patient instructed to call back with new or worsening symptoms. Reason for Disposition Caller has NON-URGENT medicine question about med that PCP or specialist prescribed and triager unable to answer question Protocols used: Medication Question [id number] [facility] 01-09-2025 History of Present illness Narrative Images from the original note were not included. [facility] Pulmonary Medicine [address], [address] [place] [id number] Name: Dayana Briggs : 1950 Age: 74 y.o. Visit Date: 01/09/25 Reason for Virtual Visit: bronchoscopy results Patient was identified and seen today via Telehealth by agreement and consent. I used the following Telehealth technology: Audio capability only. Total length of call 10 minutes. The patient was offered and advised video for a more comprehensive evaluation, but the patient declined or was unable to use video. Patient location: Patient Location: Home. This patient encounter is appropriate and reasonable under the circumstances: transportation issues . The patient has been advised of the potential risks and limitations of this mode of treatment (including but not limited to the absence of in-person examination) and has agreed to be treated in a remote fashion in spite of them. Any and all of the patient's/patient's family's questions on this issue have been answered and I have made no promises or guarantees to the patient. The patient has also been advised to contact this office for worsening conditions or problems, and seek emergency medical treatment and/or call 911 if the patient deems either necessary. The patient stated that they are currently in the [facility]. If the patient is a minor, permission has been obtained by the parent or guardian for the patient to receive medical care at this visit. History of Present Illness: Dayana Briggs is a 74 y.o. female who is being evaluated for bronchoscopy results. 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 BAL in RUL showed Haemophilus influenzae and rhinovirus on the pneumonia PCR, rare Edgar albicans (likely contaminant) on fungal culture but no growth to date on other cultures, cytology without malignant cells. She still endorses chronic dyspnea on exertion, wheezing, cough, chest tightness. She has excessive daytime sleepiness and frequent naps during the day, might have sleep apnea. She had her IVIG infusion on Sunday and that exacerbated her breathing, using nebulizer frequently. She denies fever, chills, orthopnea, hemoptysis, abdominal pain, nausea, vomiting, diarrhea, constipation, lightheadedness, dizziness, dysuria, hematuria, melena, hematochezia, leg pain, leg swelling. She is wheezing over the phone. Still taking chronic Augmentin, almost done with prednisone. Medical History[1] Surgical History[2] Family History: Family History[3] Family Status Relation Name Status Mother Tessa Garduno Alive Father at age 58 Sister Ella Sung Alive Sister Ester Alive Brother Josh Brother Matt Alive Brother Bhanu Alive Brother Bill Alive Pat Cousin Alive No partnership data on file Social History: reports that she quit smoking about 16 years ago. Her smoking use included cigarettes. She started smoking about 69 years ago. She has a 106.4 pack-year smoking history. She has never used smokeless tobacco. She reports that she does not drink alcohol and does not use drugs. Current Outpatient Medications Medication Instructions albuterol 108 (90 Base) MCG/ACT inhaler 2 puffs, Inhalation, Every 4 hours PRN albuterol 2.5 mg, Nebulization, Every 4 hours PRN amLODIPine (NORVASC) 5 mg, Oral, Daily atorvastatin (LIPITOR) 10 mg, Oral, Daily budesonide (PULMICORT) 0.5 mg, Nebulization, 2 times daily, Rinse mouth with water after use to reduce aftertaste and incidence of candidiasis. Do not swallow. cholecalciferol (Vitamin D-3) 25 MCG (1000 UT) capsule 1 capsule, 2 times daily ipratropium (Atrovent) 0.02 % nebulizer solution INHALE THE CONTENTS OF 1 VIAL VIA NEBULIZER 2 TIMES DAILY ipratropium-albuterol (Duo-Neb) 0.5-2.5 mg/3 mL nebulizer solution 3 mL, Nebulization, 4 times daily PRN IRON, FERROUS SULFATE, PO 99 mg, Daily levothyroxine (SYNTHROID, LEVOXYL) 100 mcg, Oral, Daily omeprazole (PRILOSEC) 20 mg, Oral, Daily Potassium Gluconate 2.5 MEQ tablet Take by mouth. predniSONE (Deltasone) 10 MG tablet Take 4 tabs (40mg) daily for 3 days, then 3 tabs (30mg) daily for 3 days, 2 tabs (20mg) daily for 3 days, 1 tab (10 mg) daily for 3 days. spironolactone (ALDACTONE) 25 mg, Oral, Daily zafirlukast (ACCOLATE) 20 mg, 2 times daily Allergies[4] Data Review: Labs No results for input(s): WBC, HGB, HCT in the last 72 hours. No lab exists for component: PLAT No results for input(s): NA, K, CL, CO2, GLUCOSE, BUN, CREATININE, EGFR, CALCIUM, ALBUMIN, ALK, AST, ALT, PTT, INR in the last 72 hours. No lab exists for component: TP, TBILI PFT (05/22/23) Absolute Value % Predicted Z-score FEV1/FVC 34% -4.31 FEV1 0.72 37 -3.65 FVC 2.12 84 TLC 6.57 147 RV/TLC 55 (ULN 53) DLCO 12.23 70 -2.04 My personal interpretation: Spirometry shows severe airflow obstruction. Lung volumes show hyperinflation. Gas transfer is mildly reduced. CT chest without contrast (06/11/24) IMPRESSION: Moderate to severe pulmonary emphysema. I have personally reviewed all pertinent labs and imaging. Assessment & Plan: Chronic hypoxemic respiratory failure Severe COPD - patient underwent bronchoscopy with airway inspection and BAL 01/01/25, which revealed tracheobronchomalacia, EDAC, chronic bronchitis, mild phlegm burden - BAL in RUL showed Haemophilus influenzae and rhinovirus on the pneumonia PCR, rare Edgar albicans (likely contaminant) on fungal culture but no growth to date on other cultures, cytology without malignant cells - she is already on appropriate antibiotics for Haemophilus infection - EDAC may be contributing to persistent symptoms, would likely benefit from PAP therapy - continue 2 LPM O2 continuously - continue nebulizer - follow-up in [place] office in 3 months or sooner if needed Excessive daytime sleepiness - high pre-test probability for MARCUS - notable EDAC, tracheobronchomalacia on airway exam - she would be willing to wear PAP therapy - polysomnogram ordered Gentry Ross MD Pulmonary & Critical Care Medicine [facility] [1] Past Medical History: Diagnosis Date Asthma 2006 Breast cancer screening 02/2024 COPD (chronic obstructive pulmonary disease) (HCC) 2014 Home O2 since 2014 Emphysema of lung (HCC) Ex-smoker 2008 GERD (gastroesophageal reflux disease) H/O colonoscopy 2018 due 2028 History of idiopathic thrombocytopenic purpura 2005 resolved History of shingles 2020 left CN V Hypertension 2004 Hypothyroidism IBS (irritable bowel syndrome) 2000 per Cscope Immunoglobulin deficiency (HCC) 2008 [facility] [place] Nodule of upper lobe of right lung no change per LDCT- due 05/2025 Osteoporosis [address] infusion [address] Dr Field Renal stones [2] Past Surgical History: Procedure Laterality Date APPENDECTOMY 1965 BREAST BIOPSY Right 2010 benign BREAST CYST ASPIRATION Left 2008 benign CATARACT EXTRACTION W/ INTRAOCULAR LENS IMPLANT Bilateral CHOLECYSTECTOMY 2013 COLONOSCOPY 10/2018 Dr. Argueta- due 2028 COLONOSCOPY 2008 Turowski DENTAL SURGERY dentures HEMORRHOID SURGERY 1995 MENISCECTOMY Left 2016 Damico PARTIAL HYSTERECTOMY 1994 DUB- Ovaries intact SKIN BIOPSY from left arm, under right breast, and forehead. All negative for CA TONSILLECTOMY (HISTORICAL) [3] Family History Problem Relation Name Age of Onset High Blood Pressure Mother Tessa Garduno alive age 99 Rheum arthritis Father Heart disease Father age 59 Other ([id number]) Sister Ella adrenal issues Skin cancer Sister Ester COPD Brother Josh age 65, smoker Lung cancer Brother Josh 70 Prostate cancer Brother Matt 60 No Known Problems Brother Bhanu No Known Problems Brother Gary Breast cancer Paternal Cousin 35 Autoimmune disease Sister Ella Pineda [4] Allergies Allergen Reactions Lisinopril Shortness of breath Cough and wheezing Other Other Envirmental allergies trees pollen rag weed, douglass Ampicillin Other reaction(s): Other, stomach issues Aspirin Hives Other reaction(s): U Other reaction(s): U Augmentin [Amoxicillin-Pot Clavulanate] Codeine Other reaction(s): GI Upset sleepy, dizzy Erythromycin unknown reaction Levaquin [Levofloxacin] Other Joint pain (ankles) Misc. Sulfonamide Containing Compounds Penicillins Other reaction(s): Other (See Comments) Upset stomach Other reaction(s): Other Other reaction(s): U Other reaction(s): Other Other reaction(s): Other, stomach issues Other reaction(s): stomach issues, U unknown reaction Sulfa Antibiotics Cephalexin Hives and Rash Other reaction(s): Hives Other reaction(s): U Other reaction(s): Hives Other reaction(s): Hives Other reaction(s): Hives, U documented in this encounter [facility] 01-02-2025 Telephone encounter Note Called patient to review preliminary bronchoscopy results from 01/01/25. Pneumonia PCR from RUL BAL positive for rhinovirus and Haemophilus influenzae. Patient is already on extended treatment with prednisone and Augmentin. Recommend continuing these medications as prescribed. Answered all questions. Follow-up is scheduled. [facility] Work Phone: 01-02-2025 Miscellaneous Notes Called patient to review preliminary bronchoscopy results from 01/01/25. Pneumonia PCR from RUL BAL positive for rhinovirus and Haemophilus influenzae. Patient is already on extended treatment with prednisone and Augmentin. Recommend continuing these medications as prescribed. Answered all questions. Follow-up is scheduled. documented in this encounter [facility] 01-01-2025 Nurse Note Pt free from pain and nausea. Ambulated hallway, discharge instructions reviewed with pt and family at bedside [facility] 01-01-2025 Miscellaneous Notes Pt free from pain and nausea. Ambulated hallway, discharge instructions [facility] with pt and family [facility] Name: Dayana Briggs Procedure Date: 01/01/2025 4:19 PM Gender: Female Date of : 1950 Age: 74 Admit Type: Outpatient Note Status: Finalized Attending MD: Gentry Ross , , [id number] Procedure: Bronchoscopy Indications: Chronic cough Findings: The laryngeal mask airway is in good position. The vocal cords appear normal. The subglottic space is normal. The trachea is of normal caliber. The eduarda is sharp. The tracheobronchial tree was examined to at least the first subsegmental level. Bronchial anatomy is normal; there are no endobronchial lesions. Mild diffuse chronic bronchitis changes noted. Mild thick secretion burden noted throughout the tracheobronchial tree, all aspirated easily. Excessive dynamic airway collapse noted involving the trachea and proximal bilateral mainstem bronchi on expiration. The bronchoscope was advanced until wedged at the desired location for bronchoalveolar lavage. BAL was performed in the right upper lobe of the lung and sent for cell count, bacterial culture, viral smears & culture, and fungal & AFB analysis and cytology. 60 mL of fluid were instilled. 20 mL were returned. The return was cellular and cloudy. Mucous plugs were present in the return fluid. Impression: - Chronic cough - Tracheobronchomalacia, excessive dynamic airway collapse - Chronic bronchitis, mild secretion burden throughout - Bronchoalveolar lavage was performed in the RUL. Recommendation: - Await BAL, culture and cytology results. Medicines: General Anesthesia, Lidocaine 4% applied to cords 2 mL, Lidocaine 2% applied to the tracheobronchial tree 4 mL Procedure: Pre-Anesthesia Assessment: - A History and Physical has been performed. The patient's medications, allergies and sensitivities have been reviewed. - The risks and benefits of the procedure and the sedation options and risks were discussed with the patient. All questions were answered and informed consent was obtained. After I obtained informed consent, the scope was passed under direct vision. Throughout the procedure, the patient's blood pressure, pulse, and oxygen saturations were monitored continuously. The was introduced through the mouth, via laryngeal mask airway and advanced to the tracheobronchial tree of both lungs. The procedure was accomplished without difficulty. The patient tolerated the procedure well. Complications: No immediate complications Procedure Code(s): --- Professional --- 10767, Bronchoscopy, rigid or flexible, including fluoroscopic guidance, when performed; with bronchial alveolar lavage Diagnosis Code(s): --- Professional --- R05.3, Chronic cough CPT copyright 2021 [employer]. All rights reserved. The codes documented in this report are preliminary and upon ultrasonic cleaner review may be revised to meet current compliance requirements. Attending Participation: I personally performed the entire procedure. Gentry Ross, 01/01/2025 4:54:44 PM This report has been signed electronically. Number of Addenda: 0 Note Initiated On: 01/01/2025 4:19 PM documented in this encounter [facility] 01-01-2025 Note Patient: Dayana rosas Procedure Summary Date: 01/01/25 Room / Location: [facility] / [facility] Anesthesia Start: 1629 Anesthesia Stop: 1656 Procedure: INSPECTION BRONCHOSCOPY WITH BRONCHOALVEOLAR LAVAGE. POSSIBLE ENDOBRONCHIAL BIOPSIES, NEEDLE ASPIRATION, AND BRUSHINGS. Diagnosis: SOB (shortness of breath) Very severe chronic obstructive pulmonary disease (HCC) Chronic respiratory failure with hypoxia (HCC) Bronchiectasis without acute exacerbation (HCC) Providers: Gentry Ross MD Responsible Provider: Fausto Bob MD Anesthesia Type: general ASA Status: 3 Anesthesia Type: general Vitals Value Taken Time BP 143/82 01/01/25 17:05 Temp 97 01/01/25 17:05 Pulse 116 01/01/25 17:04 Resp 16 01/01/25 17:05 SpO2 96 % 01/01/25 17:04 Vitals shown include unfiled device data. Anesthesia Post Evaluation Patient location during evaluation: PACU Patient participation: complete - patient participated Level of consciousness: oriented x3 Pain management: satisfactory to patient Airway patency: patent Dental Injury: no Cardiovascular status: acceptable, blood pressure returned to baseline and hemodynamically stable Respiratory status: acceptable, spontaneous ventilation and nasal cannula Hydration status: euvolemic Nausea/Vomiting: controlled No notable events documented. Patient can be discharged once all PACU criteria has been met. [facility] 01-01-2025 Note Patient: Dayana Huerta athroxi Procedure Summary Date: 01/01/25 Room / Location: [facility] / [facility] G[facility]enterology Anesthesia Start: 1629 Anesthesia Stop: 1656 Procedure: INSPECTION BRONCHOSCOPY WITH BRONCHOALVEOLAR LAVAGE. POSSIBLE ENDOBRONCHIAL BIOPSIES, NEEDLE ASPIRATION, AND BRUSHINGS. Diagnosis: SOB (shortness of breath) Very severe chronic obstructive pulmonary disease (HCC) Chronic respiratory failure with hypoxia (HCC) Bronchiectasis without acute exacerbation (HCC) Providers: Gentry Ross MD Responsible Provider: Fausto Bob MD Anesthesia Type: general ASA Status: 3 Anesthesia Type: general Vitals Value Taken Time BP 143/82 01/01/25 17:04 Temp 97 01/01/25 17:04 Pulse 116 01/01/25 17:04 Resp 16 01/01/25 17:04 SpO2 96 % 01/01/25 17:04 Vitals shown include unfiled device data. Anesthesia Post Evaluation Patient participation: complete - patient participated Level of consciousness: oriented x3 Pain management: satisfactory to patient Multimodal analgesia pain management approach Airway patency: patent Two or more strategies used to mitigate risk of obstructive sleep apnea Respiratory status: acceptable Cardiovascular status: acceptable Hydration status: acceptable No notable events documented. Anesthesia Post Evaluation I completed my handoff to the receiving clinician during which we: 1. Identified the patient 2. Identified the responsible provider 3. Reviewed the pertinent medical history 4. Discussed the surgical course 5. Reviewed intra-op anesthesia management and issues during anesthesia 6. Set expectations for post-procedure period 7. Allowed opportunity for questions and acknowledgement of understanding. [facility] 01-01-2025 Note POST-PROCEDURE DISCH ARGE NOTE [facility] [address] [place] [address] PATIENT: Dayana Briggs : 1950 ATTENDING: Dr. Ross DATE OF PROCEDURE: 01/01/25 DATE OF DISCHARGE: 01/01/25 Procedure: Bronchoscopy with BAL of RUL Principle Diagnosis: chronic cough, chronic bronchitis, tracheobronchomalacia/EDAC Associated Condition(s): Same as pre-op, unless otherwise indicated Mental Status: Same as pre-op, unless otherwise indicated Condition: Patient tolerated procedure well with no immediate complication. Patient was evaluated and examined post-op, found to be clinically/hemodynamically stable and in no acute distress Disposition of Care: Discharge to home Follow-up appointment: Will be arranged Gentry Ross MD Pulmonary & Critical Care Medicine [facility] 01-01-2025 Hospital course Narrative POST-PROCEDURE DISCHARGE NOTE [facility] [address] [place] [address] PATIENT: Dayana Briggs : 1950 ATTENDING: Dr. Ross DATE OF PROCEDURE: 01/01/25 DATE OF DISCHARGE: 01/01/25 Procedure: Bronchoscopy with BAL of RUL Principle Diagnosis: chronic cough, chronic bronchitis, tracheobronchomalacia/EDAC Associated Condition(s): Same as pre-op, unless otherwise indicated Mental Status: Same as pre-op, unless otherwise indicated Condition: Patient tolerated procedure well with no immediate complication. Patient was evaluated and examined post-op, found to be clinically/hemodynamically stable and in no acute distress Disposition of Care: Discharge to home Follow-up appointment: Will be arranged Gentry Ross MD Pulmonary & Critical Care Medicine [facility] documented in this encounter [facility] 01-01-2025 Note Airway Date/Time: 01/01/2025 4:36 PM Reason: scheduled Airway not difficult General Information and Staff Patient location during procedure: Procedural Resident/DIRECTOR EMPLOYMENT: Khris Renteria DIRECTOR EMPLOYMENT Performed: DIRECTOR EMPLOYMENT Patient Condition Indications for airway management: airway protection and anesthesia Patient position: sniffing MILS maintained throughout Sedation level: Asleep Final Airway Details Preoxygenated: yes Final airway type: supraglottic airway Successful airway: Igel Size: 4 Number of attempts at approach: 1 [facility] 01-01-2025 Note Patient: Dayana rosas Procedure Information Date/Time: 01/01/25 1530 Procedure: INSPECTION BRONCHOSCOPY WITH BRONCHOALVEOLAR LAVAGE. POSSIBLE ENDOBRONCHIAL BIOPSIES, NEEDLE ASPIRATION, AND BRUSHINGS. - Total time: 30 min Location: [facility] / [facility] Providers: Gentry Ross MD Relevant Problems Anesthesia (+) History of shingles Cardio (+) Hypertension (+) Mixed hyperlipidemia Endo (+) Hypothyroidism GI (+) IBS (irritable bowel syndrome) Pulmonary (+) COPD with acute exacerbation (HCC) (+) Centrilobular emphysema (HCC) (+) History of shingles (+) Severe persistent asthma, uncomplicated (+) Very severe chronic obstructive pulmonary disease (HCC) Other (+) Primary osteoarthritis of left knee Past Medical History: Past Medical History: 2006: Asthma 02/2024: Breast cancer screening 2014: COPD (chronic obstructive pulmonary disease) (HCC) Comment: Home O2 since 2014 2009: Ex-smoker No date: GERD (gastroesophageal reflux disease) 2019: H/O colonoscopy Comment: due 2028 2005: History of idiopathic thrombocytopenic purpura Comment: resolved 2020: History of shingles Comment: left CN V 2004: Hypertension No date: Hypothyroidism 2001: IBS (irritable bowel syndrome) Comment: per Cscope 2007: Immunoglobulin deficiency (HCC) Comment: monthly IVIG infusion per Dr. Davis [place], [place] No date: Nodule of upper lobe of right lung Comment: no change per LDCT- due 05/2025: Osteoporosis Comment: Reclast infusion per Dr Field No date: Renal stones Past Surgical History: Past Surgical History: 1965: APPENDECTOMY 2010: BREAST BIOPSY; Right Comment: benign 2008: BREAST CYST ASPIRATION; Left Comment: benign No date: CATARACT EXTRACTION W/ INTRAOCULAR LENS IMPLANT; Bilateral 2013: CHOLECYSTECTOMY 10/2018: COLONOSCOPY Comment: Dr. Argueta- due 2028 2008: COLONOSCOPY Comment: Jose No date: DENTAL SURGERY Comment: dentures 1994: HEMORRHOID SURGERY 2016: MENISCECTOMY; Left Comment: Mookie 1994: PARTIAL HYSTERECTOMY Comment: DUB- Ovaries intact No date: SKIN BIOPSY Comment: from left arm, under right breast, and forehead. All negative for CA No date: TONSILLECTOMY (HISTORICAL) Social History: TOBACCO: reports that she quit smoking about 16 years ago. Her smoking use included cigarettes. She started smoking about 69 years ago. She has a 106.4 pack-year smoking history. She has never used smokeless tobacco. ETOH: reports no history of alcohol use. Social History Substance and Sexual Activity Drug Use No Family History: Family History[1] Screening: Hysterectomy Clinical information reviewed: Tobacco Allergies Meds Med Hx Surg Hx Fam Hx Soc Hx Physical Exam Airway Mallampati: III Neck ROM: full Cardiovascular Dental (+) edentulous Pulmonary Abdominal Anesthesia Plan Any family history or previous problems with anesthesia no We discussed risks, benefits, alternatives and likelihood of success with the Patient. ASA 3 general Any family history or previous problems with anesthesia no The patient is not a current smoker. patient is NPO appropriate MARCUS Screening Labs: Lab Results Component Value Date WBC 17.6 (H) 05/19/2024 HGB 12.9 05/19/2024 HCT 39.8 05/19/2024 MCV 90.7 05/19/2024 PLT 457 (H) 05/19/2024 Lab Results Component Value Date SODIUM 138 05/19/2024 NA 139 12/19/2021 POTASSIUM 4.2 05/19/2024 K 4.2 12/19/2021 CHLORIDE 100 05/19/2024 CL 102 12/19/2021 CO2 30 05/19/2024 BUN 18 05/19/2024 CREATININE 0.92 05/19/2024 GLUCOSE 96 05/19/2024 CALCIUM 9.7 05/19/2024 PROT 7.4 05/19/2024 ALKPHOS 87 05/19/2024 AST 18 05/19/2024 ALT 15 05/19/2024 EGFR 66 05/19/2024 GLOB 2.8 05/19/2024 Pain Score: 0 - No pain No echocardiogram results found for the past 14 days 01/07/20 (Final) Narrative Ordered by an unspecified provider. Equipment Requests: Additional Equipment Requests Patient wears 2L oxygen at home via [place] [1] Family History Problem Relation Name Age of Onset High Blood Pressure Mother Tessa Garduno alive age 99 Rheum arthritis Father Heart disease Father age 59 Other ([id number]) Sister Ella adrenal issues Skin cancer Sister Ester COPD Brother Josh age 65, smoker Lung cancer Brother Josh 70 Prostate cancer Brother Matt 60 No Known Problems Brother Bhanu No Known Problems Brother Bill Breast cancer Paternal Cousin 35 [facility] 01-01-2025 Note [facility]oscopy Center- [facility] Patient Name: Dayana Briggs Procedure Date: 01/01/2025 4:19 PM Gender: Female Date of : 1950 Age: 74 Admit Type: Outpatient Note Status: Finalized Attending MD: Gentry Ross , , [id number] Procedure: Bronchoscopy Indications: Chronic cough Findings: The laryngeal mask airway is in good position. The vocal cords appear normal. The subglottic space is normal. The trachea is of normal caliber. The eduarda is sharp. The tracheobronchial tree was examined to at least the first subsegmental level. Bronchial anatomy is normal; there are no endobronchial lesions. Mild diffuse chronic bronchitis changes noted. Mild thick secretion burden noted throughout the tracheobronchial tree, all aspirated easily. Excessive dynamic airway collapse noted involving the trachea and proximal bilateral mainstem bronchi on expiration. The bronchoscope was advanced until wedged at the desired location for bronchoalveolar lavage. BAL was performed in the right upper lobe of the lung and sent for cell count, bacterial culture, viral smears & culture, and fungal & AFB analysis and cytology. 60 mL of fluid were instilled. 20 mL were returned. The return was cellular and cloudy. Mucous plugs were present in the return fluid. Impression: - Chronic cough - Tracheobronchomalacia, excessive dynamic airway collapse - Chronic bronchitis, mild secretion burden throughout - Bronchoalveolar lavage was performed in the RUL. Recommendation: - Await BAL, culture and cytology results. Medicines: General Anesthesia, Lidocaine 4% applied to cords 2 mL, Lidocaine 2% applied to the tracheobronchial tree 4 mL Procedure: Pre-Anesthesia Assessment: - A History and Physical has been performed. The patient's medications, allergies and sensitivities have been reviewed. - The risks and benefits of the procedure and the sedation options and risks were discussed with the patient. All questions were answered and informed consent was obtained. After I obtained informed consent, the scope was passed under direct vision. Throughout the procedure, the patient's blood pressure, pulse, and oxygen saturations were monitored continuously. The was introduced through the mouth, via laryngeal mask airway and advanced to the tracheobronchial tree of both lungs. The procedure was accomplished without difficulty. The patient tolerated the procedure well. Complications: No immediate complications Procedure Code(s): --- Professional --- 66063, Bronchoscopy, rigid or flexible, including fluoroscopic guidance, when performed; with bronchial alveolar lavage Diagnosis Code(s): --- Professional --- R05.3, Chronic cough CPT copyright 2021 [employer]. All rights reserved. The codes documented in this report are preliminary and upon ultrasonic cleaner review may be revised to meet current compliance requirements. Attending Participation: I personally performed the entire procedure. Gentry Ross, 01/01/2025 4:54:44 PM This report has been signed electronically. Number of Addenda: 0 Note Initiated On: 01/01/2025 4:19 PM [facility] 01-01-2025 Procedure note Endoscopy [facility]- [facility] Patient Name: Dayana Briggs Procedure Date: 01/01/2025 4:19 PM Gender: Female Date of : 1950 Age: 74 Admit Type: Outpatient Note Status: Finalized Attending MD: Gentry Ross , , [id number] Procedure: Bronchoscopy Indications: Chronic cough Findings: The laryngeal mask airway is in good position. The vocal cords appear normal. The subglottic space is normal. The trachea is of normal caliber. The eduarda is sharp. The tracheobronchial tree was examined to at least the first subsegmental level. Bronchial anatomy is normal; there are no endobronchial lesions. Mild diffuse chronic bronchitis changes noted. Mild thick secretion burden noted throughout the tracheobronchial tree, all aspirated easily. Excessive dynamic airway collapse noted involving the trachea and proximal bilateral mainstem bronchi on expiration. The bronchoscope was advanced until wedged at the desired location for bronchoalveolar lavage. BAL was performed in the right upper lobe of the lung and sent for cell count, bacterial culture, viral smears & culture, and fungal & AFB analysis and cytology. 60 mL of fluid were instilled. 20 mL were returned. The return was cellular and cloudy. Mucous plugs were present in the return fluid. Impression: - Chronic cough - Tracheobronchomalacia, excessive dynamic airway collapse - Chronic bronchitis, mild secretion burden throughout - Bronchoalveolar lavage was performed in the RUL. Recommendation: - Await BAL, culture and cytology results. Medicines: General Anesthesia, Lidocaine 4% applied to cords 2 mL, Lidocaine 2% applied to the tracheobronchial tree 4 mL Procedure: Pre-Anesthesia Assessment: - A History and Physical has been performed. The patient's medications, allergies and sensitivities have been reviewed. - The risks and benefits of the procedure and the sedation options and risks were discussed with the patient. All questions were answered and informed consent was obtained. After I obtained informed consent, the scope was passed under direct vision. Throughout the procedure, the patient's blood pressure, pulse, and oxygen saturations were monitored continuously. The was introduced through the mouth, via laryngeal mask airway and advanced to the tracheobronchial tree of both lungs. The procedure was accomplished without difficulty. The patient tolerated the procedure well. Complications: No immediate complications Procedure Code(s): --- Professional --- 04207, Bronchoscopy, rigid or flexible, including fluoroscopic guidance, when performed; with bronchial alveolar lavage Diagnosis Code(s): --- Professional --- R05.3, Chronic cough CPT copyright 2021 [employer]. All rights reserved. The codes documented in this report are preliminary and upon ultrasonic cleaner review may be revised to meet current compliance requirements. Attending Participation: I personally performed the entire procedure. Gentry Ross, 01/01/2025 4:54:44 PM This report has been signed electronically. Number of Addenda: 0 Note Initiated On: 01/01/2025 4:19 PM [facility] 01-01-2025 History and physical note Images from the original note were not included. SHORT PROCEDURE ADMISSION H&P [address] [address] Name: Dayana Briggs : 1950 Age: 74 y.o. ADMISSION DATE: 01/01/2025 DATE OF PROCEDURE: 01/01/25 LOCATION: [facility] ATTENDING: Dr. Ross PREPROCEDURE HISTORY AND INDICATION FOR PROCEDURE: Recurrent lower respiratory tract infections MEDICAL HISTORY, MEDICATIONS, AND ALLERGIES: As noted on the bronchoscopy flow sheet and in EPIC. Medical History[1] Current Outpatient Medications Medication Instructions albuterol 108 (90 Base) MCG/ACT inhaler 2 puffs, Inhalation, Every 4 hours PRN albuterol 2.5 mg, Nebulization, Every 4 hours PRN amLODIPine (NORVASC) 5 mg, Oral, Daily atorvastatin (LIPITOR) 10 mg, Oral, Daily budesonide (PULMICORT) 0.5 mg, Nebulization, 2 times daily, Rinse mouth with water after use to reduce aftertaste and incidence of candidiasis. Do not swallow. cholecalciferol (Vitamin D-3) 25 MCG (1000 UT) capsule 1 capsule, 2 times daily ipratropium (Atrovent) 0.02 % nebulizer solution INHALE THE CONTENTS OF 1 VIAL VIA NEBULIZER 2 TIMES DAILY ipratropium-albuterol (Duo-Neb) 0.5-2.5 mg/3 mL nebulizer solution 3 mL, Nebulization, 4 times daily PRN IRON, FERROUS SULFATE, PO 99 mg, Daily levothyroxine (SYNTHROID, LEVOXYL) 100 mcg, Oral, Daily omeprazole (PRILOSEC) 20 mg, Oral, Daily Potassium Gluconate 2.5 MEQ tablet Take by mouth. predniSONE (Deltasone) 10 MG tablet Take 4 tabs (40mg) daily for 3 days, then 3 tabs (30mg) daily for 3 days, 2 tabs (20mg) daily for 3 days, 1 tab (10 mg) daily for 3 days. spironolactone (ALDACTONE) 25 mg, Oral, Daily zafirlukast (ACCOLATE) 20 mg, 2 times daily Allergies[2] PREPROCEDURE EXAMINATION: 08/28/2024 10:09 AM 09/10/2024 2:30 PM 09/10/2024 2:35 PM 10/20/2024 11:18 AM 12/03/2024 10:53 AM 12/31/2024 10:05 AM 01/01/2025 3:15 PM Vitals Systolic 129 142 145 131 131 137 152 Diastolic 76 77 75 80 84 80 79 Heart Rate 81 90 83 80 93 87 Temp 36.3 C (97.3 F) 36.4 C (97.5 F) 36.4 C (97.5 F) 36.4 C (97.5 F) 36.6 C (97.8 F) Resp 22 SpO2 92 % 95 % 94 % 93 % 95 % 100 % Height (in) 5' (1.524 m) 5' (1.524 m) 5' (1.524 m) 5' (1.524 m) 5' (1.524 m) 5' (1.524 m) Weight (lb) 163.2 162.6 160 163 162.6 162 BMI 31.87 kg/m2 31.76 kg/m2 31.25 kg/m2 31.83 kg/m2 31.76 kg/m2 31.64 kg/m2 BSA (m2) 1.77 m2 1.77 m2 1.75 m2 1.77 m2 1.77 m2 1.76 m2 Visit Report Report Report Report Report Report Report MENTAL STATUS: A&Ox3, no acute distress. HEAD & NECK: As per the bronchoscopy flow sheet. CHEST: Lungs clear to auscultation, bilateral wheezing and rhonchi. HEART: Normal heart sounds, RRR. PREPROCEDURE STUDIES: CT chest without contrast (06/11/24) IMPRESSION: Moderate to severe pulmonary emphysema. RISK DISCUSSION: For routine diagnostic bronchoscopy including EBUS: Risks of bronchoscopy including bleeding (4%), infection, pneumothorax (5% with transbronchial biopsies), reaction to medications, respiratory insufficiency, and the risk of were addressed with the patient. I explained that a pneumothorax would require admission and at least observation and likely require chest tube placement and a several day hospital stay for treatment. Patient expressed understanding. ASSESSMENT & PLAN: Proceed with bronchoscopy, airway inspection, BAL Gentry Ross MD Pulmonary & Critical Care Medicine [facility] [1] Past Medical History: Diagnosis Date Asthma 2006 Breast cancer screening 02/2024 COPD (chronic obstructive pulmonary disease) ([facility]) 2013 Home O2 since 2014 Ex-smoker 2008 GERD (gastroesophageal reflux disease) H/O colonoscopy 2018 due 2028 History of idiopathic thrombocytopenic purpura 2005 resolved History of shingles 2020 left CN V Hypertension 2003 Hypothyroidism IBS (irritable bowel syndrome) 2000 per [facility] Immunoglobulin deficiency ([facility]) 2007 monthly IVIG infusion per Dr. Davis [facility], [place] Nodule of upper lobe of right lung no change per LDCT- due 05/2025 Osteoporosis 2020 Recl[address] infusion per Dr Field Renal stones [2] Allergies Allergen Reactions Lisinopril Shortness of breath Cough and wheezing Other Other Envirmental allergies trees pollen rag weed, douglass Ampicillin Other reaction(s): Other, stomach issues Aspirin Hives Other reaction(s): U Other reaction(s): U Augmentin [Amoxicillin-Pot Clavulanate] Codeine Other reaction(s): GI Upset sleepy, dizzy Erythromycin unknown reaction Levaquin [Levofloxacin] Other Joint pain (ankles) Misc. Sulfonamide Containing Compounds Penicillins Other reaction(s): Other (See Comments) Upset stomach Other reaction(s): Other Other reaction(s): U Other reaction(s): Other Other reaction(s): Other, stomach issues Other reaction(s): stomach issues, U unknown reaction Sulfa Antibiotics Cephalexin Hives and Rash Other reaction(s): Hives Other reaction(s): U Other reaction(s): Hives Other reaction(s): Hives Other reaction(s): Hives, U [facility] 01-01-2025 Note SHORT PROCEDURE ADMI SSION H&P [facility] [address] [place] [address] Name: Dayana Briggs : 1950 Age: 74 y.o. ADMISSION DATE: 01/01/2025 DATE OF PROCEDURE: 01/01/25 LOCATION: [facility] ATTENDING: Dr. Ross PREPROCEDURE HISTORY AND INDICATION FOR PROCEDURE: Recurrent lower respiratory tract infections MEDICAL HISTORY, MEDICATIONS, AND ALLERGIES: As noted on the bronchoscopy flow sheet and in EPIC. Medical History[1] Current Outpatient Medications Medication Instructions albuterol 108 (90 Base) MCG/ACT inhaler 2 puffs, Inhalation, Every 4 hours PRN albuterol 2.5 mg, Nebulization, Every 4 hours PRN amLODIPine (NORVASC) 5 mg, Oral, Daily atorvastatin (LIPITOR) 10 mg, Oral, Daily budesonide (PULMICORT) 0.5 mg, Nebulization, 2 times daily, Rinse mouth with water after use to reduce aftertaste and incidence of candidiasis. Do not swallow. cholecalciferol (Vitamin D-3) 25 MCG (1000 UT) capsule 1 capsule, 2 times daily ipratropium (Atrovent) 0.02 % nebulizer solution INHALE THE CONTENTS OF 1 VIAL VIA NEBULIZER 2 TIMES DAILY ipratropium-albuterol (Duo-Neb) 0.5-2.5 mg/3 mL nebulizer solution 3 mL, Nebulization, 4 times daily PRN IRON, FERROUS SULFATE, PO 99 mg, Daily levothyroxine (SYNTHROID, LEVOXYL) 100 mcg, Oral, Daily omeprazole (PRILOSEC) 20 mg, Oral, Daily Potassium Gluconate 2.5 MEQ tablet Take by mouth. predniSONE (Deltasone) 10 MG tablet Take 4 tabs (40mg) daily for 3 days, then 3 tabs (30mg) daily for 3 days, 2 tabs (20mg) daily for 3 days, 1 tab (10 mg) daily for 3 days. spironolactone (ALDACTONE) 25 mg, Oral, Daily zafirlukast (ACCOLATE) 20 mg, 2 times daily Allergies[2] PREPROCEDURE EXAMINATION: 08/28/2024 10:09 AM 09/10/2024 2:30 PM 09/10/2024 2:35 PM 10/20/2024 11:18 AM 12/03/2024 10:53 AM 12/31/2024 10:05 AM 01/01/2025 3:15 PM Vitals Systolic 129 142 145 131 131 137 152 Diastolic 76 77 75 80 84 80 79 Heart Rate 81 90 83 80 93 87 Temp 36.3 ?C (97.3 ?F) 36.4 ?C (97.5 ?F) 36.4 ?C (97.5 ?F) 36.4 ?C (97.5 ?F) 36.6 ?C (97.8 ?F) Resp 22 SpO2 92 % 95 % 94 % 93 % 95 % 100 % Height (in) 5' (1.524 m) 5' (1.524 m) 5' (1.524 m) 5' (1.524 m) 5' (1.524 m) 5' (1.524 m) Weight (lb) 163.2 162.6 160 163 162.6 162 BMI 31.87 kg/m2 31.76 kg/m2 31.25 kg/m2 31.83 kg/m2 31.76 kg/m2 31.64 kg/m2 BSA (m2) 1.77 m2 1.77 m2 1.75 m2 1.77 m2 1.77 m2 1.76 m2 Visit Report Report Report Report Report Report Report MENTAL STATUS: A&Ox3, no acute distress. HEAD & NECK: As per the bronchoscopy flow sheet. CHEST: Lungs clear to auscultation, bilateral wheezing and rhonchi. HEART: Normal heart sounds, RRR. PREPROCEDURE STUDIES: CT chest without contrast (06/11/24) IMPRESSION: Moderate to severe pulmonary emphysema. RISK DISCUSSION: For routine diagnostic bronchoscopy including EBUS: Risks of bronchoscopy including bleeding (4%), infection, pneumothorax (5% with transbronchial biopsies), reaction to medications, respiratory insufficiency, and the risk of were addressed with the patient. I explained that a pneumothorax would require admission and at least observation and likely require chest tube placement and a several day hospital stay for treatment. Patient expressed understanding. ASSESSMENT & PLAN: Proceed with bronchoscopy, airway inspection, BAL Gentry Ross MD Pulmonary & Critical Care Medicine [facility] [1] Past Medical History: Diagnosis Date Asthma 2006 Breast cancer screening 02/2024 COPD (chronic obstructive pulmonary disease) ([facility]) 2014 Home O2 since 2015 Ex-smoker 2008 GERD (gastroesophageal reflux disease) H/O colonoscopy 2018 due 2028 History of idiopathic thrombocytopenic purpura 2005 resolved History of shingles 2020 left CN V Hypertension 2004 Hypothyroidism IBS (irritable bowel syndrome) 2000 per Cscope Immunoglobulin deficiency (HCC) 2007 monthly IVIG infusion per Dr. Davis [place], [place] Nodule of upper lobe of right lung no change per LDCT- due 05/2025 Osteoporosis 2020 Recl[address] infusion per Dr Field Renal stones [2] Allergies Allergen Reactions Lisinopril Shortness of breath Cough and wheezing Other Other Envirmental allergies trees pollen rag weed, douglass Ampicillin Other reaction(s): Other, stomach issues Aspirin Hives Other reaction(s): U Other reaction(s): U Augmentin [Amoxicillin-Pot Clavulanate] Codeine Other reaction(s): GI Upset sleepy, dizzy Erythromycin unknown reaction Levaquin [Levofloxacin] Other Joint pain (ankles) Misc. Sulfonamide Containing Compounds Penicillins Other reaction(s): Other (See Comments) Upset stomach Other reaction(s): Other Other reaction(s): U Other reaction(s): Other Other reaction(s): Other, stomach issues Other reaction(s): stomach issues, U unknown reaction Sulfa Antibiotics Cephalexin Hives and Rash Other reaction(s): (more content not included)... [facility] 01-01-2025 History and physical note Images from the original note were not included. SHORT PROCEDURE ADMISSION H&P [facility] [address], [place] [id number] Name: Dayana Briggs : 1950 Age: 74 y.o. ADMISSION DATE: 01/01/2025 DATE OF PROCEDURE: 01/01/25 LOCATION: [facility] ATTENDING: Dr. Ross PREPROCEDURE HISTORY AND INDICATION FOR PROCEDURE: Recurrent lower respiratory tract infections MEDICAL HISTORY, MEDICATIONS, AND ALLERGIES: As noted on the bronchoscopy flow sheet and in EPIC. Medical History[1] Current Outpatient Medications Medication Instructions albuterol 108 (90 Base) MCG/ACT inhaler 2 puffs, Inhalation, Every 4 hours PRN albuterol 2.5 mg, Nebulization, Every 4 hours PRN amLODIPine (NORVASC) 5 mg, Oral, Daily atorvastatin (LIPITOR) 10 mg, Oral, Daily budesonide (PULMICORT) 0.5 mg, Nebulization, 2 times daily, Rinse mouth with water after use to reduce aftertaste and incidence of candidiasis. Do not swallow. cholecalciferol (Vitamin D-3) 25 MCG (1000 UT) capsule 1 capsule, 2 times daily ipratropium (Atrovent) 0.02 % nebulizer solution INHALE THE CONTENTS OF 1 VIAL VIA NEBULIZER 2 TIMES DAILY ipratropium-albuterol (Duo-Neb) 0.5-2.5 mg/3 mL nebulizer solution 3 mL, Nebulization, 4 times daily PRN IRON, FERROUS SULFATE, PO 99 mg, Daily levothyroxine (SYNTHROID, LEVOXYL) 100 mcg, Oral, Daily omeprazole (PRILOSEC) 20 mg, Oral, Daily Potassium Gluconate 2.5 MEQ tablet Take by mouth. predniSONE (Deltasone) 10 MG tablet Take 4 tabs (40mg) daily for 3 days, then 3 tabs (30mg) daily for 3 days, 2 tabs (20mg) daily for 3 days, 1 tab (10 mg) daily for 3 days. spironolactone (ALDACTONE) 25 mg, Oral, Daily zafirlukast (ACCOLATE) 20 mg, 2 times daily Allergies[2] PREPROCEDURE EXAMINATION: 08/28/2024 10:09 AM 09/10/2024 2:30 PM 09/10/2024 2:35 PM 10/20/2024 11:18 AM 12/03/2024 10:53 AM 12/31/2024 10:05 AM 01/01/2025 3:15 PM Vitals Systolic 129 142 145 131 131 137 152 Diastolic 76 77 75 80 84 80 79 Heart Rate 81 90 83 80 93 87 Temp 36.3 C (97.3 F) 36.4 C (97.5 F) 36.4 C (97.5 F) 36.4 C (97.5 F) 36.6 C (97.8 F) Resp 22 SpO2 92 % 95 % 94 % 93 % 95 % 100 % Height (in) 5' (1.524 m) 5' (1.524 m) 5' (1.524 m) 5' (1.524 m) 5' (1.524 m) 5' (1.524 m) Weight (lb) 163.2 162.6 160 163 162.6 162 BMI 31.87 kg/m2 31.76 kg/m2 31.25 kg/m2 31.83 kg/m2 31.76 kg/m2 31.64 kg/m2 BSA (m2) 1.77 m2 1.77 m2 1.75 m2 1.77 m2 1.77 m2 1.76 m2 Visit Report Report Report Report Report Report Report MENTAL STATUS: A&Ox3, no acute distress. HEAD & NECK: As per the bronchoscopy flow sheet. CHEST: Lungs clear to auscultation, bilateral wheezing and rhonchi. HEART: Normal heart sounds, RRR. PREPROCEDURE STUDIES: CT chest without contrast (06/11/24) IMPRESSION: Moderate to severe pulmonary emphysema. RISK DISCUSSION: For routine diagnostic bronchoscopy including EBUS: Risks of bronchoscopy including bleeding (4%), infection, pneumothorax (5% with transbronchial biopsies), reaction to medications, respiratory insufficiency, and the risk of were addressed with the patient. I explained that a pneumothorax would require admission and at least observation and likely require chest tube placement and a several day hospital stay for treatment. Patient expressed understanding. 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 Davis [place], [place] Nodule of upper lobe of right lung no change per LDCT- due 05/2025 Osteoporosis 2020 Recl[address] infusion per Dr Field Renal stones [2] Allergies Allergen Reactions Lisinopril Shortness of breath Cough and wheezing Other Other Envirmental allergies trees pollen rag weed, douglass Ampicillin Other reaction(s): Other, stomach issues Aspirin Hives Other reaction(s): U Other reaction(s): U Augmentin [Amoxicillin-Pot Clavulanate] Codeine Other reaction(s): GI Upset sleepy, dizzy Erythromycin unknown reaction Levaquin [Levofloxacin] Other Joint pain (ankles) Misc. Sulfonamide Containing Compounds Penicillins Other reaction(s): Other (See Comments) Upset stomach Other reaction(s): Other Other reaction(s): U Other reaction(s): Other Other reaction(s): Other, stomach issues Other reaction(s): stomach issues, U unknown reaction Sulfa Antibiotics Cephalexin Hives and Rash Other reaction(s): Hives Other reaction(s): U Other reaction(s): Hives Other reaction(s): Hives Other reaction(s): Hives, U documented in this encounter [facility] 12-31-2024 Telephone encounter Note Patient is active with Gautam for EBUS/ENB [id number] [facility] 12-31-2024 Miscellaneous Notes Patient is active with Gautam for EBUS/ENB [id number] Addended by: LUZ ELENA TORRES on: 12/31/2024 11:54 AM Modules accepted: Orders Instructions BRONCH/BAL Bronchoscopy with Bronchoalveolar Lavage Procedure Date: January 01, 2025 Time: 3:30 PM Arrival Time: 2:30 PM Physician: Dr. Ross Location: [facility], Endoscopy Department, [facility] David Theo Eli Beltran Clare ([facility] Clare); [address] [id number] Please arrive at the hospital registration desk 1 hour prior to scheduled start of procedure. Make sure you have a known responsible adult to transport you home from the hospital as you will not be permitted to drive. Your procedure will be cancelled if you do not have someone to take you home. You can only use a taxi/bus/Uber/medical transportation clerk if you have a known responsible adult to go with you. You may use [facility]. Each patient will receive one validation ticket for [facility]. Do not drink alcohol before or after your procedure. No smoking of any kind and no chewing tobacco six hours prior to your procedure. If you experience any fever/sick symptoms prior to procedure, please call the nurse. Bring your insurance card and photo ID with you. 8 hours prior to scheduled procedure (7:30 AM) is the cut off for solid foods or thick liquids. You may have water, black coffee, clear tea, apple juice, cranberry juice, clear carbonated beverages until 2 hours (1:30 PM) prior to your scheduled start. Any blood thinning medications like Coumadin, Warfarin, Jantoven, Effient, Eliquis, Xarelto, Pradaxa, Pletal, Plavix, Bilinta, Heparin, Lovenox, Fragmin and Aspirin may need to be held prior to the procedure. Contact the nurse if you take any of these medications. Please refrain from taking any non-steroidal anti-inflammatory medications (i.e. Advil, Aleve, Ibuprofen, Motrin, Naprosyn, Naproxen, Voltaren, Diclofenac, Celebrex, Mobic, Meloxicam) for 5 days prior to procedure. Tylenol (acetaminophen) is safe to use prior to procedure. The following medications must be stopped 7 days prior to your procedure: Albiglutide (Tanzeum), Dulaglutide (Trulicity), Exenatide ER (Bydureon), Semaglutide (Ozempic), Wegovy, Rybelsus), Tirzepatide (Mounjaro). These medications must be stopped 1 day prior to your procedure: Exenatide (Byetta), Liraglutide (Saxenda, Victoza), Lixisenatide (Adlyxin), Orlistat (Yuniel, Xenical), Setmelanotide (Imcivree). If you are diabetic, please contact your physician that manages your medications and/or insulin for any adjustments that may be needed while you are on clear liquids then fasting for the majority of the day until after your procedure. Other medications can be taken as usual up to 2 hours (1:30 PM) prior as long as you are able to tolerate them on an empty stomach. Nothing by mouth after 1:30 PM. From registration you will go to the endoscopy unit, the staff there will get you checked in and start an intravenous catheter (IV). Our Anesthesia Team will ask you some health history questions prior and will be there to monitor you for the duration of your procedure. Dr. Ross will be available to speak with you prior to your procedure in case you have any questions. The procedure itself usually lasts about 1 hour and you will be asleep the entire time. After the procedure you will be taken to the recovery area for monitoring. The procedure is planned as outpatient, and you will be discharged the same day. Estimated time at the hospital ranges from 3-4 hours the day of the procedure. The physician will use a small, flexible scope to go through your mouth and into the lung to sample the area(s) that were discussed with you. The scope has a channel that tools are inserted in to biopsy, collect specimens and/or wash the particular area. The physician will discuss any initial findings post procedure at the hospital with you. Final results typically come back within a week and a follow up will be scheduled based on the physician's recommendation. You are scheduled for a follow up telephone appointment January 09, 2025 at 11:[address] Ross to discuss results. Things to look for post procedure: Fever greater than 101F Coughing up/spitting up bright red blood greater than a teaspoon Increased Shortness of breath/distress and/ or sudden onset of chest pain (call 911 and head to the nearest emergency department) You will be sent home with discharge instructions. You can eat and drink as tolerated post procedure. You may experience some fatigue, irritation of the throat, increased coughing, and/or pink-blood tinged mucus after the procedure. This is normal and be expected to last about 24-48 hours. Over the counter medications such as lozenges, cough drops, chloraseptic sprays can help these symptoms. If you have any questions, please call: [phone] Elena RN Clinical Coordinator [facility] [address] [place] [address], [address] [place], [place] [id number] Procedure placed on physician's outlook calendar? yes Does patient take blood thinners? No Does patient take ASA?No Does patient take NSAIDS? No Does patient take diabetic medications? No Does patient take GLP1 meds? No Does patient have Pacemaker, defibrillator, life vest, other implants? No Recent illness or covid exposure? No Chance of ? No Patient aware will need transportation home from hospital? Yes Patient instructed to bring insurance card, photo ID and mask? Yes Surgery Scheduling Patient notified of procedure date, time, prep/NPO status, arrival time, location and entrance, must have a ride, and to bring: drivers license, insurance card, mask, med list. Reviewed prep and itinerary with patient? yes Patient voices understanding? Yes Received request to schedule patient for Bronch/BAL this week. This RN attempted to reach patient regarding scheduling. No answer. Left voice mail to return call at direct line. documented in this encounter [facility] 12-31-2024 Note Addended by: LUZ ELENA HOPPER on: 12/31/2024 11:54 AM Modules accepted: Orders [facility] 12-31-2024 Note Addended by: LUZ ELENA HOPPER on: 12/31/2024 11:54 AM Modules accepted: Orders [facility] 12-31-2024 Note Addended by: LUZ ELENA HOPPER on: 12/31/2024 11:54 AM Modules accepted: Orders [facility] 12-31-2024 Note Addended by: LUZ ELENA HOPPER on: 12/31/2024 11:54 AM Modules accepted: Orders [facility] 12-31-2024 Telephone encounter Note Instructions BRONCH/BAL Bronchoscopy with Bronchoalveolar Lavage Procedure Date: January 01, 2025 Time: 3:30 PM Arrival Time: 2:30 PM Physician: Dr. Ross Location: [facility], Endoscopy Department, [facility] Main Entrance Roselia Devin Clare ([facility] Clare); [address] [place], [place] [id number] Please arrive at the hospital registration desk 1 hour prior to scheduled start of procedure. Make sure you have a known responsible adult to transport you home from the hospital as you will not be permitted to drive. Your procedure will be cancelled if you do not have someone to take you home. You can only use a taxi/bus/Uber/medical transportation clerk if you have a known responsible adult to go with you. You may use [facility]. Each patient will receive one validation ticket for [facility]. Do not drink alcohol before or after your procedure. No smoking of any kind and no chewing tobacco six hours prior to your procedure. If you experience any fever/sick symptoms prior to procedure, please call the nurse. Bring your insurance card and photo ID with you. 8 hours prior to scheduled procedure (7:30 AM) is the cut off for solid foods or thick liquids. You may have water, black coffee, clear tea, apple juice, cranberry juice, clear carbonated beverages until 2 hours (1:30 PM) prior to your scheduled start. Any blood thinning medications like Coumadin, Warfarin, Jantoven, Effient, Eliquis, Xarelto, Pradaxa, Pletal, Plavix, Bilinta, Heparin, Lovenox, Fragmin and Aspirin may need to be held prior to the procedure. Contact the nurse if you take any of these medications. Please refrain from taking any non-steroidal anti-inflammatory medications (i.e. Advil, Aleve, Ibuprofen, Motrin, Naprosyn, Naproxen, Voltaren, Diclofenac, Celebrex, Mobic, Meloxicam) for 5 days prior to procedure. Tylenol (acetaminophen) is safe to use prior to procedure. The following medications must be stopped 7 days prior to your procedure: Albiglutide (Tanzeum), Dulaglutide (Trulicity), Exenatide ER (Bydureon), Semaglutide (Ozempic), Wegovy, Rybelsus), Tirzepatide (Mounjaro). These medications must be stopped 1 day prior to your procedure: Exenatide (Byetta), Liraglutide (Saxenda, Victoza), Lixisenatide (Adlyxin), Orlistat (Yuniel, Xenical), Setmelanotide (Imcivree). If you are diabetic, please contact your physician that manages your medications and/or insulin for any adjustments that may be needed while you are on clear liquids then fasting for the majority of the day until after your procedure. Other medications can be taken as usual up to 2 hours (1:30 PM) prior as long as you are able to tolerate them on an empty stomach. Nothing by mouth after 1:30 PM. From registration you will go to the endoscopy unit, the staff there will get you checked in and start an intravenous catheter (IV). Our Anesthesia Team will ask you some health history questions prior and will be there to monitor you for the duration of your procedure. Dr. Ross will be available to speak with you prior to your procedure in case you have any questions. The procedure itself usually lasts about 1 hour and you will be asleep the entire time. After the procedure you will be taken to the recovery area for monitoring. The procedure is planned as outpatient, and you will be discharged the same day. Estimated time at the hospital ranges from 3-4 hours the day of the procedure. The physician will use a small, flexible scope to go through your mouth and into the lung to sample the area(s) that were discussed with you. The scope has a channel that tools are inserted in to biopsy, collect specimens and/or wash the particular area. The physician will discuss any initial findings post procedure at the hospital with you. Final results typically come back within a week and a follow up will be scheduled based on the physician's recommendation. You are scheduled for a follow up telephone appointment January 09, 2025 at 11:[address] Ross to discuss results. Things to look for post procedure: Fever greater than 101F Coughing up/spitting up bright red blood greater than a teaspoon Increased Shortness of breath/distress and/ or sudden onset of chest pain (call 911 and head to the nearest emergency department) You will be sent home with discharge instructions. You can eat and drink as tolerated post procedure. You may experience some fatigue, irritation of the throat, increased coughing, and/or pink-blood tinged mucus after the procedure. This is normal and be expected to last about 24-48 hours. Over the counter medications such as lozenges, cough drops, chloraseptic sprays can help these symptoms. If you have any questions, please call: [phone] Elena RN Clinical Coordinator [facility] [address] [place] [address], [address] [place] [id number] Procedure placed on physician's outlook calendar? yes Does patient take blood thinners? No Does patient take ASA?No Does patient take NSAIDS? No Does patient take diabetic medications? No Does patient take GLP1 meds? No Does patient have Pacemaker, defibrillator, life vest, other implants? No Recent illness or covid exposure? No Chance of ? No Patient aware will need transportation home from hospital? Yes Patient instructed to bring insurance card, photo ID and mask? Yes Surgery Scheduling Patient notified of procedure date, time, prep/NPO status, arrival time, location and entrance, must have a ride, and to bring: drivers license, insurance card, mask, med list. Reviewed prep and itinerary with patient? yes Patient voices understanding? Yes [facility] 12-31-2024 Telephone encounter Note Received request to schedule patient for Bronch/BAL this week. This RN attempted to reach patient regarding scheduling. No answer. Left voice mail to return call at direct line. [facility] 12-31-2024 History of Present illness Narrative Images from the original note were not included. [facility] [address] [place] [id number] Date of Service: 12/31/2024 Visit type: An Established patient Chief Complaint/Reason for Referral: Follow-up and COPD ([id number] ([facility])) SUBJECTIVE History of Present Illness: Dayana Briggs ( 1950) is a 74 y.o. 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 Ongoing issues. Thinks she is allergic to IVIG now Recurrent Abx, steroids Discussed sputum results Apparently was recommended Ohtuvarye but copay was 500 She is exacerbated again. MMRC Dyspnea Scale: Grade Description of Breathlessness [...] Diagnosis Date Asthma 2006 Breast cancer screening 02/2024 COPD (chronic obstructive pulmonary disease) ([facility]) 2014 Home O2 since 2014 Ex-smoker 2008 GERD (gastroesophageal reflux disease) H/O colonoscopy 2018 due 2028 History of idiopathic thrombocytopenic purpura 2006 resolved History of shingles 2020 left CN V Hypertension 2004 Hypothyroidism IBS (irritable bowel syndrome) 2000 per [facility] Immunoglobulin deficiency (HCC) 2008 monthly IVIG infusion per [facility] Nodule of upper lobe of right lung no change per LDCT- due 05/2025 Osteoporosis [address] infusion [address] Field Renal stones SURGICAL HISTORY: Past Surgical History: Procedure Laterality Date APPENDECTOMY 1965 BREAST BIOPSY Right 2010 benign BREAST CYST ASPIRATION Left 2008 benign CATARACT EXTRACTION W/ INTRAOCULAR LENS IMPLANT Bilateral CHOLECYSTECTOMY 2013 COLONOSCOPY 10/2018 Dr. Argueta- due 2028 COLONOSCOPY 2008 Turowski DENTAL SURGERY dentures HEMORRHOID SURGERY 1995 MENISCECTOMY Left 2016 Damico PARTIAL HYSTERECTOMY 1994 DUB- Ovaries intact SKIN BIOPSY from left arm, under right breast, and forehead. All negative for CA TONSILLECTOMY (HISTORICAL) ALLERGIES: Allergies Allergen Reactions Lisinopril Shortness of breath Cough and wheezing Other Other Envirmental allergies trees pollen rag weed, douglass Ampicillin Other reaction(s): Other, stomach issues Aspirin Hives Other reaction(s): U Other reaction(s): U Augmentin [Amoxicillin-Pot Clavulanate] Codeine Other reaction(s): GI Upset sleepy, dizzy Erythromycin unknown reaction Levaquin [Levofloxacin] Other Joint pain (ankles) Misc. Sulfonamide Containing Compounds Penicillins Other reaction(s): Other (See Comments) Upset [...] shortness of breath., Disp: 75 mL, Rfl: 3 albuterol 108 (90 Base) MCG/ACT inhaler, Inhale 2 puffs every 4 hours as needed for shortness of breath., Disp: 1 each, Rfl: 2 amLODIPine (Norvasc) 5 MG tablet, TAKE 1 TABLET BY MOUTH EVERY DAY, Disp: 90 tablet, Rfl: 1 atorvastatin (Lipitor) 10 MG tablet, Take 1 tablet (10 mg) by mouth daily., Disp: 90 tablet, Rfl: 3 budesonide (Pulmicort) 0.5 MG/2ML nebulizer solution, Take 2 mL (0.5 mg) by nebulization 2 times daily. Rinse mouth with water after use to reduce aftertaste and incidence of candidiasis. Do not swallow., Disp: 360 mL, Rfl: 5 cholecalciferol (Vitamin D-3) 25 MCG (1000 UT) capsule, Take 1 capsule by mouth in the morning and 1 capsule before bedtime., Disp: , Rfl: fluconazole (Diflucan) 100 MG tablet, TAKE 1 TABLET BY MOUTH DAILY FOR 7 DAYS, Disp: 7 tablet, Rfl: 0 ipratropium (Atrovent) 0.02 % nebulizer solution, INHALE THE CONTENTS OF 1 VIAL VIA NEBULIZER 2 TIMES DAILY, Disp: , Rfl: ipratropium-albuterol (Duo-Neb) 0.5-2.5 mg/3 mL nebulizer solution, Take 3 mL by nebulization 4 times daily as needed for wheezing., Disp: 30 mL, Rfl: 2 levothyroxine (Synthroid, Levoxyl) 100 MCG tablet, Take 1 tablet (100 mcg) by mouth daily for 360 doses., Disp: 90 tablet, Rfl: 3 omeprazole (PriLOSEC) [address] capsule, Take 1 capsule (20 mg) by mouth daily., Disp: 90 capsule, Rfl: 3 Potassium Gluconate 2.5 MEQ tablet, Take by mouth., Disp: , Rfl: spironolactone (Aldactone) 25 MG tablet, Take 1 tablet (25 mg) by mouth daily., Disp: 90 tablet, Rfl: 1 zafirlukast (Accolate) 20 MG tablet, Take 20 mg by mouth in the morning and 20 mg before bedtime., Disp: , Rfl: predniSONE (Deltasone) 10 MG tablet, Take 4 tabs (40mg) daily for 3 days, then 3 tabs (30mg) daily for 3 days, 2 tabs (20mg) daily for 3 days, 1 tab (10 mg) daily for 3 days., Disp: 30 tablet, Rfl: 1 Current Facility-Administered Medications: albuterol (2.5 MG/3ML) 0.083% nebulizer solution 2.5 mg, 2.5 mg, Nebulization, Once, Jazmin Moy PA-C ipratropium (Atrovent) 0.02 % nebulizer solution 0.5 mg, 0.5 mg, Nebulization, Once, Jazmin Moy PA-C SOCIAL HISTORY: Social History Tobacco Use Smoking status: Former Current packs/day: 0.00 Average packs/day: 2.0 packs/day for 53.2 years (106.4 ttl pk-yrs) Types: Cigarettes Start date: 09[birth year]14/1953 Quit date: 12/01/2008 Years since quittin.0 Smokeless tobacco: Never Substance Use Topics Alcohol use: No Alcohol/week: 0.0 standard drinks of alcohol FAMILY HISTORY: Family History Problem Relation Name Age of Onset High Blood Pressure Mother Tessa Garduno alive age 99 Rheum arthritis Father Heart disease Father age 59 Other ([id number]) Sister Ella adrenal issues Skin cancer Sister Ester COPD Brother Josh age 65, smoker Lung cancer Brother Josh 70 Prostate cancer Brother Matt 60 No Known Problems Brother Bhanu No Known Problems Brother Gary Breast cancer Paternal Cousin 35 REVIEW OF SYSTEMS: Review of Systems Constitutional: Positive for activity change. Negative for appetite change, chills, fatigue, fever and unexpected weight change. HENT: Positive for congestion. Negative for postnasal drip, rhinorrhea, sneezing and sore throat. Respiratory: Positive for cough, shortness of breath and wheezing (improved some). Negative for apnea and chest tightness. Cardiovascular: Negative for chest pain, palpitations and leg swelling. Allergic/Immunologic: Negative for environmental allergies. Psychiatric/Behavioral: Negative for sleep disturbance. VITAL SIGNS: BP 137/80 Pulse 93 Temp 36.4 C (97.5 F) (Temporal) Ht 5' (1.524 m) Wt 162 lb 9.6 oz (73.8 kg) SpO2 95% Comment: 2Lp BMI 31.76 kg/m PHYSICAL EXAM: Physical Exam Constitutional: General: She is not in acute distress. Appearance: She is not ill-appearing. Cardiovascular: Rate and Rhythm: Normal rate and regular rhythm. Heart sounds: No murmur heard. Pulmonary: Effort: No respiratory distress. Breath sounds: Decreased air movement present. Wheezing and rhonchi present. No rales. Skin: General: Skin is warm and dry. Capillary Refill: Capillary refill takes less than 2 seconds. Neurological: Mental Status: She is alert. Psychiatric: Mood and Affect: Mood normal. Behavior: Behavior normal. DATA REVIEWED: PFT's--04/2023 CXR--11/2023 FINDINGS: The cardiomediastinal silhouette is within normal limits. Known right apical lung nodule measures approximately 1.4 cm. There is lung hyperinflation, flattening of the hemidiaphragms and coarsening of the interstitium. No focal consolidation, pleural effusion or pneumothorax. No acute osseous abnormality is demonstrated. Advanced degenerative changes of the spine and shoulders are seen. Chronic deformities of the right glenohumeral joint are noted. IMPRESSION: No acute cardiopulmonary abnormality identified. COPD changes. Redemonstration of known right apical pulmonary nodule. CT lung screening--05/2023 FINDINGS: Pulmonary nodules: *All nodule measurements are mean axial diameter and saved on lobato images* (6:101) 12 x 9 mm nodule within the lateral right upper lobe is UNCHANGED. No new pulmonary nodules or masses. Lungs: The lungs are clear with no acute infiltrate or effusion. The tracheobronchial tree remains patent. Moderate upper lobe predominant centrilobular emphysematous changes. Mediastinum: Normal heart size with no pericardial effusion. Aorta and pulmonary arteries normal in caliber. No enlarged mediastinal, hilar, or axillary lymph nodes. Thyroid and Esophagus: Normal. Upper Abdomen: Normal Soft tissues and Osseous structures: Severe degenerative changes of the right glenohumeral joint. Multiple healed right-sided rib fractures. IMPRESSION: Unchanged 12 x 9 mm nodule lateral right upper lobe. No new pulmonary nodules or masses. Moderate upper lobe predominant centrilobular emphysematous changes. ASSESSMENT CATEGORY: Lung-RADS Assessment Category 2 - Benign appearance or behavior. Recommend continued annual low-dose screening CT in 12 months. PET/CT--01/27/21 NECK AND CHEST: There is a [...] CT follow-up is recommended to ensure stability. TTE--01/10/24 Left Ventricle: Left ventricle size is normal. Normal wall thickness. Normal left ventricular systolic function. EF by 2D Simpsons Biplane is 72%. Normal wall motion. Elevated left ventricular filling pressure. Right Ventricle: Right ventricle size is normal. Normal systolic function. Aortic Valve: No stenosis. AV mean gradient is 4 mmHg. AV peak gradient is 8 mmHg. LVOT:AV VTI Index is 0.77. LVOT diameter is 2.0 cm. AV area by continuity VTI is 2.3 cm2. Stroke volume index is 46.5 mL/m2. Tricuspid Valve: Mild (1+) regurgitation. Normal hepatic vein systolic flow. Normal RVSP. RVSP is 25 mmHg. Pulmonic Valve: Trace regurgitation. Interatrial Septum: No interatrial shunt visualized on color Doppler. Grade 0 Absence of bubbles. Agitated saline study was negative with and without provocation. 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 Chronic steroid use/dependence. Recurrent respiratory infections. -very poorly controlled COPD vs exacerbation vs other. -prednisone taper. -plan bronch BAL to see what is true infection versus not especially with recent sputum sample showing penicillium (usually not pathogenic) -difficult situation here. I discussed the present plan of care is not viable. Centrilobular emphysema (CMS/HCC) (HCC) -moderate to severe changes on CT imaging. PFTs showing severe obstruction with +BD response, hyperinflation, air trapping and mildly reduced gas exchange -We previously discussed pursuing endobronchial valve procedure, patient was not interested, she is not ideal candidate but may help. - Ohtuvarye may help but encouraged drug assistance -advise we try alternative biologic if approved but she has no eosinophils or IgE elevation. She does not even have the eos to get nucala approved. Could be suppressed from steroids. She is hesitant given previous reactions. -patient has had repeated exacerbations, requiring use of steroids 11+ times in the last 6 months -patient has either failed or declined/refused multiple recommendations to optimize her pulmonary issues. 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 We discussed that the frequent use of steroid decreases patient's immune status, increasing her risk for infection. -currently following with Dr. Davis in [place], but she is interested in getting another opinion, appointment pending in January. Chronic respiratory failure with hypoxia (CMS/HCC) (HCC) -Patient should continue to use supplemental O2 to keep pulse ox 88 to 92% Lung nodule -regressing on most recent CT scan Bronchiectasis (HCC) -mild focal RUL bronchiectasis on CT imaging 05/2024 -limited benefit expected from Brinsupri, will defer for now. Personal history of tobacco use, presenting hazards to health -Patient has greater than [id number] history, quit in 2008. CT imaging as above FOLLOW UP: No follow-ups on file. Filipe Castellon MD Pulmonary & Sleep Medicine Portions of the information within this encounter were entered using an electronic dictation system. Best attempts were made to proofread the information prior to note completion. Despite the review of the information, some errors may remain. If there are questions related to the information contained within the note please contact the signing provider directly. documented in this encounter [facility] 12-31-2024 Instructions Jaja Noel - 12/31/2024 10:15 AM EDT YOUR APPOINTMENT TODAY WAS WITH THE [facility] LUNG NODULE [facility]IN[facility], COPD CLINIC, PULMONARY AND SLEEP MEDICINE OFFICE. PLEASE CALL OUR OFFICE AT [phone] for our [facility] location or [phone] for our [place] location, IF YOU HAVE NOT RECEIVED YOUR [...] to make improvements. COVID-19 VACCINATION INFORMATION: PH. [phone] [email or web address] [facility] Central Scheduling [phone] [facility] Sleep Scheduling [phone] documented in this encounter [facility] 12-31-2024 Miscellaneous Notes Addended by: MICHELLE DALAL on: 12/31/2024 11:04 AM Modules accepted: Orders documented in this encounter [facility] 12-31-2024 Note Addended by: MICHELLE GORDON on: 12/31/2024 11:04 AM Modules accepted: Orders [facility] 12-31-2024 Note Addended by: MICHELLE GORDON on: 12/31/2024 11:04 AM Modules accepted: Orders [facility] 12-03-2024 History of Present illness Narrative Images from the original note were not included. [facility] [address] [place] [address] Date of Service: 12/03/2024 Visit type: An Established patient Chief Complaint/Reason for Referral: Follow-up and COPD (EMPHYSEMA, O2-(JONATHAN )) SUBJECTIVE History of Present Illness: Dayana Briggs ( 1950) is a 74 y.o. 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 Last seen by pulmonary 09/2023. Patient known to [facility] providers (myself, Beny Smith APRN and Dr. Castellon) Patient has recurrent issue with poorly controlled asthma/COPD. She has been treated with prednisone on 11 separate occasions in the last 6 months, by multiple providers. She has also been treated with multiple rounds of antibiotics in recent months, again by multiple providers. Most recently, she was treated with 10 day course of augmentin by her florist's decorator. Unfortunately, patient has had issues with multiple recommendations made to her for optimized control of COPD/pulmonary issues. Symptoms also seem to be exacerbated primarily by getting IVIG infusions, which she gets monthly. She currently sees immunology in [facility], Dr. Davis. She has tried and failed multiple maintenance inhalers, most recently, this included Trelegy, and then Advair/Spiriva. She stopped taking the Trelegy because she didn't feel it helped her, and then also stopped the Advair due to perceived lack of benefit. She was prescribed Ohtuvayre nebs but they were too expensive and she didn't follow through with working on patient assistance to get this covered. She is prescribed zafirkulast by her florist's decorator, but stopped taking it due to perceived lack of benefit and cost. She was given sample of Dupixent in the florist's decorator office, and allegedly had reaction to it. She was later offered use of Tezspire, but she declined. She apparently sees palliative care in her home, but she wants them to stop coming because she doesn't see the benefit. MMRC Dyspnea Scale: Grade Description of Breathlessness [...] Diagnosis Date Asthma 2006 Breast cancer screening 02/2024 COPD (chronic obstructive pulmonary disease) ([facility]) 2014 Home O2 since 2014 Ex-smoker 2008 GERD (gastroesophageal reflux disease) H/O colonoscopy 2018 due 2028 History of idiopathic thrombocytopenic purpura 2006 resolved History of shingles 2020 left CN V Hypertension 2004 Hypothyroidism IBS (irritable bowel syndrome) 2000 per [facility] Immunoglobulin deficiency (HCC) 2008 [facility] [place] Nodule of upper lobe of right lung no change per LDCT- due 05/2025 Osteoporosis [address] infusion per Dr Field Renal stones SURGICAL HISTORY: Past Surgical History: Procedure Laterality Date APPENDECTOMY 1965 BREAST BIOPSY Right 2010 benign BREAST CYST ASPIRATION Left 2008 benign CATARACT EXTRACTION W/ INTRAOCULAR LENS IMPLANT Bilateral CHOLECYSTECTOMY 2013 COLONOSCOPY 10/2018 Dr. Argueta- due 2028 COLONOSCOPY 2008 Turowski DENTAL SURGERY dentures HEMORRHOID SURGERY 1995 MENISCECTOMY Left 2016 Damico PARTIAL HYSTERECTOMY 1994 DUB- Ovaries intact SKIN BIOPSY from left arm, under right breast, and forehead. All negative for CA TONSILLECTOMY (HISTORICAL) ALLERGIES: Allergies Allergen Reactions Lisinopril Shortness of breath Cough and wheezing Other Other Envirmental allergies trees pollen rag weed, duoglass Ampicillin Other reaction(s): Other, stomach issues Aspirin Hives Other reaction(s): U Other reaction(s): U Augmentin [Amoxicillin-Pot Clavulanate] Codeine Other reaction(s): GI Upset sleepy, dizzy Erythromycin unknown reaction Levaquin [Levofloxacin] Other Joint pain (ankles) Misc. Sulfonamide Containing Compounds Penicillins Other reaction(s): Other (See Comments) Upset [...] shortness of breath., Disp: 75 mL, Rfl: 3 albuterol 108 (90 Base) MCG/ACT inhaler, Inhale 2 puffs every 4 hours as needed for shortness of breath., Disp: 1 each, Rfl: 2 amLODIPine (Norvasc) 5 MG tablet, TAKE 1 TABLET BY MOUTH EVERY DAY, Disp: 90 tablet, Rfl: 1 atorvastatin (Lipitor) 10 MG tablet, Take 1 tablet (10 mg) by mouth daily., Disp: 90 tablet, Rfl: 3 cholecalciferol (Vitamin D-3) 25 MCG (1000 UT) capsule, Take 1 capsule by mouth in the morning and 1 capsule before bedtime., Disp: , Rfl: fluconazole (Diflucan) 100 MG tablet, TAKE 1 TABLET BY MOUTH DAILY FOR 7 DAYS, Disp: 7 tablet, Rfl: 0 ipratropium (Atrovent) 0.02 % nebulizer solution, INHALE THE CONTENTS OF 1 VIAL VIA NEBULIZER 2 TIMES DAILY, Disp: , Rfl: ipratropium-albuterol (Duo-Neb) 0.5-2.5 mg/3 mL nebulizer solution, Take 3 mL by nebulization 4 times daily as needed for wheezing., Disp: 30 mL, Rfl: 2 levothyroxine (Synthroid, Levoxyl) 100 MCG tablet, Take 1 tablet (100 mcg) by mouth daily for 360 doses., Disp: 90 tablet, Rfl: 3 omeprazole (PriLOSEC) [address] capsule, Take 1 capsule (20 mg) by mouth daily., Disp: 90 capsule, Rfl: 3 Potassium Gluconate 2.5 MEQ tablet, Take by mouth., Disp: , Rfl: spironolactone (Aldactone) 25 MG tablet, Take 1 tablet (25 mg) by mouth daily., Disp: 90 tablet, Rfl: 1 zafirlukast (Accolate) 20 MG tablet, Take 20 mg by mouth in the morning and 20 mg before bedtime., Disp: , Rfl: budesonide (Pulmicort) 0.5 MG/2ML nebulizer solution, Take 2 mL (0.5 mg) by nebulization 2 times daily. Rinse mouth with water after use to reduce aftertaste and incidence of candidiasis. Do not swallow., Disp: 360 mL, Rfl: 5 predniSONE (Deltasone) 10 MG tablet, Take 4 tabs (40mg) daily for 3 days, then 3 tabs (30mg) daily for 3 days, 2 tabs (20mg) daily for 3 days, 1 tab (10 mg) daily for 3 days., Disp: 30 tablet, Rfl: 0 Current Facility-Administered Medications: albuterol (2.5 MG/3ML) 0.083% nebulizer solution 2.5 mg, 2.5 mg, Nebulization, Once, Jazmin Moy PA-C ipratropium (Atrovent) 0.02 % nebulizer solution 0.5 mg, 0.5 mg, Nebulization, Once, Jazmin Moy PA-C SOCIAL HISTORY: Social History Tobacco Use Smoking status: Former Current packs/day: 0.00 Average packs/day: 2.0 packs/day for 53.2 years (106.4 ttl pk-yrs) Types: Cigarettes Start date: 09/14/1953 Quit date: 12/01/2008 Years since quittin.0 Smokeless tobacco: Never Substance Use Topics Alcohol use: No Alcohol/week: 0.0 standard drinks of alcohol FAMILY HISTORY: Family History Problem Relation Name Age of Onset High Blood Pressure Mother Tessa Garduno alive age 99 Rheum arthritis Father Heart disease Father age 59 Other ([id number]) Sister Ella adrenal issues Skin cancer Sister Seter COPD Brother Josh age 65, smoker Lung cancer Brother Josh 70 Prostate cancer Brother Matt 60 No Known Problems Brother Bhanu No Known Problems Brother Gary Breast cancer Paternal Cousin 35 REVIEW OF SYSTEMS: Review of Systems Constitutional: Positive for activity change. Negative for appetite change, chills, fatigue, fever and unexpected weight change. HENT: Positive for congestion. Negative for postnasal drip, rhinorrhea, sneezing and sore throat. Respiratory: Positive for cough, shortness of breath and wheezing (improved some). Negative for apnea and chest tightness. Cardiovascular: Negative for chest pain, palpitations and leg swelling. Allergic/Immunologic: Negative for environmental allergies. Psychiatric/Behavioral: Negative for sleep disturbance. VITAL SIGNS: BP 131/84 Pulse 80 Temp 36.4 C (97.5 F) (Temporal) Ht 5' (1.524 m) Wt 163 lb (73.9 kg) SpO2 93% Comment: 2Lp BMI 31.83 kg/m PHYSICAL EXAM: Physical Exam Constitutional: General: She is not in acute distress. Appearance: She is not ill-appearing. Cardiovascular: Rate and Rhythm: Normal rate and regular rhythm. Heart sounds: No murmur heard. Pulmonary: Effort: No respiratory distress. Breath sounds: Decreased air movement present. Wheezing and rhonchi present. No rales. Skin: General: Skin is warm and dry. Capillary Refill: Capillary refill takes less than 2 seconds. Neurological: Mental Status: She is alert. Psychiatric: Mood and Affect: Mood normal. Behavior: Behavior normal. DATA REVIEWED: PFT's--04/2023 CXR--11/2023 FINDINGS: The cardiomediastinal silhouette is within normal limits. Known right apical lung nodule measures approximately 1.4 cm. There is lung hyperinflation, flattening of the hemidiaphragms and coarsening of the interstitium. No focal consolidation, pleural effusion or pneumothorax. No acute osseous abnormality is demonstrated. Advanced degenerative changes of the spine and shoulders are seen. Chronic deformities of the right glenohumeral joint are noted. IMPRESSION: No acute cardiopulmonary abnormality identified. COPD changes. Redemonstration of known right apical pulmonary nodule. CT lung screening--05/2023 FINDINGS: Pulmonary nodules: *All nodule measurements are mean axial diameter and saved on lobato images* (6:101) 12 x 9 mm nodule within the lateral right upper lobe is UNCHANGED. No new pulmonary nodules or masses. Lungs: The lungs are clear with no acute infiltrate or effusion. The tracheobronchial tree remains patent. Moderate upper lobe predominant centrilobular emphysematous changes. Mediastinum: Normal heart size with no pericardial effusion. Aorta and pulmonary arteries normal in caliber. No enlarged mediastinal, hilar, or axillary lymph nodes. Thyroid and Esophagus: Normal. Upper Abdomen: Normal Soft tissues and Osseous structures: Severe degenerative changes of the right glenohumeral joint. Multiple healed right-sided rib fractures. IMPRESSION: Unchanged 12 x 9 mm nodule lateral right upper lobe. No new pulmonary nodules or masses. Moderate upper lobe predominant centrilobular emphysematous changes. ASSESSMENT CATEGORY: Lung-RADS Assessment Category 2 - Benign appearance or behavior. Recommend continued annual low-dose screening CT in 12 months. PET/CT--01/27/21 NECK AND CHEST: There is a [...] CT follow-up is recommended to ensure stability. TTE--01/10/24 Left Ventricle: Left ventricle size is normal. Normal wall thickness. Normal left ventricular systolic function. EF by 2D Simpsons Biplane is 72%. Normal wall motion. Elevated left ventricular filling pressure. Right Ventricle: Right ventricle size is normal. Normal systolic function. Aortic Valve: No stenosis. AV mean gradient is 4 mmHg. AV peak gradient is 8 mmHg. LVOT:AV VTI Index is 0.77. LVOT diameter is 2.0 cm. AV area by continuity VTI is 2.3 cm2. Stroke volume index is 46.5 mL/m2. Tricuspid Valve: Mild (1+) regurgitation. Normal hepatic vein systolic flow. Normal RVSP. RVSP is 25 mmHg. Pulmonic Valve: Trace regurgitation. Interatrial Septum: No interatrial shunt visualized on color Doppler. Grade 0 Absence of bubbles. Agitated saline study was negative with and without provocation. ASSESSMENT and PLAN COPD exacerbation -very poorly controlled COPD vs exacerbation? Repeat prednisone taper to stabilize symptoms -sputum culture given frequent antibiotic use without significant improvement -we discussed the concern for frequent or chronic use of prednisone particularly in the setting of IgG deficiency, due to increased susceptibility to infection and she verbalized understanding Centrilobular emphysema (CMS/HCC) (HCC) -moderate to severe changes on CT imaging. PFTs showing severe obstruction with +BD response, hyperinflation, air trapping and mildly reduced gas exchange -We previously discussed pursuing endobronchial valve procedure, patient was not interested, and Dr. Castellon did not feel patient was ideal candidate regardless -patient has had repeated exacerbations, requiring use of steroids 11+ times in the last 6 months -patient has either failed or declined/refused multiple recommendations to optimize her pulmonary issues. (See HPI). 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 We discussed that the frequent use of steroid decreases patient's immune status, increasing her risk for infection. -currently following with Dr. Davis in [place], but she is interested in getting another opinion. Referral to Dr. Koenig at [facility] has been placed Chronic respiratory failure with hypoxia (CMS/HCC) (HCC) -Patient should continue to use supplemental O2 to keep pulse ox 88 to 92% Lung nodule -1.5 x 1.2 x 1.2 cm in RUL on CT chest 12/2020, not PET avid on PET CT 01/2021 -CT lung screen done in 05/2023 shows stable 12 x 9 mm nodule in the right upper lobe -can plan to repeat imaging annually per guidelines - due 05/2025 Bronchiectasis (HCC) -mild focal RUL bronchiectasis on CT imaging 05/2024 -sputum culture as above Personal history of tobacco use, presenting hazards to health -Patient has greater than [id number] history, quit in 2008. CT imaging as above FOLLOW UP: Follow up in about 4 months (around 04/04/2025), or if symptoms worsen or fail to improve. ROSALIND Clark CNP Pulmonary & Sleep Medicine Portions of the information within this encounter were entered using an electronic dictation system. Best attempts were made to proofread the information prior to note completion. Despite the review of the information, some errors may remain. If there are questions related to the information contained within the note please contact the signing provider directly. documented in this encounter [facility] 12-03-2024 Instructions Jaja Noel - 12/03/2024 10:40 AM EDT YOUR APPOINTMENT TODAY WAS WITH THE [facility] LUNG NODULE [facility], COPD CLINIC, PULMONARY AND SLEEP MEDICINE OFFICE. PLEASE CALL OUR OFFICE AT [phone] for our [facility] location or [phone] for our [place] location, IF YOU HAVE NOT RECEIVED YOUR [...] to make improvements. COVID-19 VACCINATION INFORMATION: PH. [phone] [email or web address] [facility] Central Scheduling [phone] [facility] Sleep Scheduling [phone] documented in this encounter [facility] 12-03-2024 Miscellaneous Notes Addended by: SERGO QUIÑONES on: 12/03/2024 03:48 PM Modules accepted: Orders documented in this encounter [facility] 12-03-2024 Note Addended by: SERGO QUIÑONES on: 12/03/2024 03:48 PM Modules accepted: Orders [facility] 12-03-2024 Note Addended by: SERGO QUIÑONES on: 12/03/2024 03:48 PM Modules accepted: Orders [facility] 11-14-2024 Telephone encounter Note Last follow up: 10/30/2024 Next appointment: 12/03/2024 Allergies[1] Requested Prescriptions Pending Prescriptions Disp Refills albuterol (2.5 MG/3ML) 0.083% nebulizer solution 75 mL 2 Sig: Take 3 mL (2.5 mg) by nebulization every 4 hours as needed for wheezing or shortness of breath. [1] Allergies Allergen Reactions Lisinopril Shortness of breath Cough and wheezing Other Other Envirmental allergies trees pollen rag weed, douglass Ampicillin Other reaction(s): Other, stomach issues Aspirin Hives Other reaction(s): U Other reaction(s): U Augmentin [Amoxicillin-Pot Clavulanate] Codeine Other reaction(s): GI Upset sleepy, dizzy Erythromycin unknown reaction Levaquin [Levofloxacin] Other Joint pain (ankles) Misc. Sulfonamide Containing Compounds Penicillins Other reaction(s): Other (See Comments) Upset stomach Other reaction(s): Other Other reaction(s): U Other reaction(s): Other Other reaction(s): Other, stomach issues Other reaction(s): stomach issues, U unknown reaction Sulfa Antibiotics Cephalexin Hives and Rash Other reaction(s): Hives Other reaction(s): U Other reaction(s): Hives Other reaction(s): Hives Other reaction(s): Hives, U [facility] 11-14-2024 Miscellaneous Notes Last follow up: 10/30/2024 Next appointment: 12/03/2024 Allergies[1] Requested Prescriptions Pending Prescriptions Disp Refills albuterol (2.5 MG/3ML) 0.083% nebulizer solution 75 mL 2 Sig: Take 3 mL (2.5 mg) by nebulization every 4 hours as needed for wheezing or shortness of breath. [1] Allergies Allergen Reactions Lisinopril Shortness of breath Cough and wheezing Other Other Envirmental allergies trees pollen rag weed, douglass Ampicillin Other reaction(s): Other, stomach issues Aspirin Hives Other reaction(s): U Other reaction(s): U Augmentin [Amoxicillin-Pot Clavulanate] Codeine Other reaction(s): GI Upset sleepy, dizzy Erythromycin unknown reaction Levaquin [Levofloxacin] Other Joint pain (ankles) Misc. Sulfonamide Containing Compounds Penicillins Other reaction(s): Other (See Comments) Upset stomach Other reaction(s): Other Other reaction(s): U Other reaction(s): Other Other reaction(s): Other, stomach issues Other reaction(s): stomach issues, U unknown reaction Sulfa Antibiotics Cephalexin Hives and Rash Other reaction(s): Hives Other reaction(s): U Other reaction(s): Hives Other reaction(s): Hives Other reaction(s): Hives, U documented in this encounter [facility] 11-12-2024 Telephone encounter Note S: Patient spoke with [facility] nurse regarding med refill B: Onset of symptoms/concern 11/12/24 A: Patient requesting refill albuterol (2.5 MG/3ML) 0.083% nebulizer solution. States they have 3 vials left. States they have enough to last until tomorrow. R: Patient understands care advice that office is currently closed and message will be sent to office for review and follow-up next business day. Allergies and pharmacy verified with patient. No further needs at this time. Patient instructed to call back with new or worsening symptoms. Medication name: albuterol (2.5 MG/3ML) 0.083% nebulizer solution Medication dosage: 3 mL (Milliliters) Monthly quantity needed: 30 days How many day supply requestin days Medication route: inhalation (inhaler) Medication administration time(s): every 4 hrs as needed If taking medication PRN, reason for taking medication: wheezing and shortness of breath If this is a controlled substance do you receive this or any other controlled medication from any other doctor or facility: N/A Ordering provider: Dr. Dyer Date of last office visit: unknown Date of next office visit: 12/03/24 Date of last refill: (see medication tab): unknown Updated/Validated preferred pharmacy: Yes Patient instructed to contact the pharmacy prior to picking up the medication: Yes Reason for Disposition [1] Prescription refill request for NON-ESSENTIAL medicine (i.e., no harm to patient if med not taken) AND [2] triager unable to refill per department policy Protocols used: Medication Refill and Renewal [id number] [facility] 11-12-2024 Miscellaneous Notes S: Patient spoke with [facility] nurse regarding med refill B: Onset of symptoms/concern 11/12/24 A: Patient requesting refill albuterol (2.5 MG/3ML) 0.083% nebulizer solution. States they have 3 vials left. States they have enough to last until tomorrow. R: Patient understands care advice that office is currently closed and message will be sent to office for review and follow-up next business day. Allergies and pharmacy verified with patient. No further needs at this time. Patient instructed to call back with new or worsening symptoms. Medication name: albuterol (2.5 MG/3ML) 0.083% nebulizer solution Medication dosage: 3 mL (Milliliters) Monthly quantity needed: 30 days How many day supply requestin days Medication route: inhalation (inhaler) Medication administration time(s): every 4 hrs as needed If taking medication PRN, reason for taking medication: wheezing and shortness of breath If this is a controlled substance do you receive this or any other controlled medication from any other doctor or facility: N/A Ordering provider: Dr. Dyer Date of last office visit: unknown Date of next office visit: 12/03/24 Date of last refill: (see medication tab): unknown Updated/Validated preferred pharmacy: Yes Patient instructed to contact the pharmacy prior to picking up the medication: Yes Reason for Disposition [1] Prescription refill request for NON-ESSENTIAL medicine (i.e., no harm to patient if med not taken) AND [2] triager unable to refill per department policy Protocols used: Medication Refill and Renewal [id number] documented in this encounter [facility] 11-12-2024 Telephone encounter Note Last follow up: 10/30/2024 Next appointment: 12/03/2024 Allergies[1] Requested Prescriptions Pending Prescriptions Disp Refills albuterol 108 (90 Base) MCG/ACT inhaler 1 each 2 Sig: Inhale 2 puffs every 4 hours as needed for shortness of breath. [1] Allergies Allergen Reactions Lisinopril Shortness of breath Cough and wheezing Other Other Envirmental allergies trees pollen rag weed, douglass Ampicillin Other reaction(s): Other, stomach issues Aspirin Hives Other reaction(s): U Other reaction(s): U Augmentin [Amoxicillin-Pot Clavulanate] Codeine Other reaction(s): GI Upset sleepy, dizzy Erythromycin unknown reaction Levaquin [Levofloxacin] Other Joint pain (ankles) Misc. Sulfonamide Containing Compounds Penicillins Other reaction(s): Other (See Comments) Upset stomach Other reaction(s): Other Other reaction(s): U Other reaction(s): Other Other reaction(s): Other, stomach issues Other reaction(s): stomach issues, U unknown reaction Sulfa Antibiotics Cephalexin Hives and Rash Other reaction(s): Hives Other reaction(s): U Other reaction(s): Hives Other reaction(s): Hives Other reaction(s): Hives, U [facility] 11-12-2024 Miscellaneous Notes Last follow up: 10/30/2024 Next appointment: 12/03/2024 Allergies[1] Requested Prescriptions Pending Prescriptions Disp Refills albuterol 108 (90 Base) MCG/ACT inhaler 1 each 2 Sig: Inhale 2 puffs every 4 hours as needed for shortness of breath. [1] Allergies Allergen Reactions Lisinopril Shortness of breath Cough and wheezing Other Other Envirmental allergies trees pollen rag weed, douglass Ampicillin Other reaction(s): Other, stomach issues Aspirin Hives Other reaction(s): U Other reaction(s): U Augmentin [Amoxicillin-Pot Clavulanate] Codeine Other reaction(s): GI Upset sleepy, dizzy Erythromycin unknown reaction Levaquin [Levofloxacin] Other Joint pain (ankles) Misc. Sulfonamide Containing Compounds Penicillins Other reaction(s): Other (See Comments) Upset stomach Other reaction(s): Other Other reaction(s): U Other reaction(s): Other Other reaction(s): Other, stomach issues Other reaction(s): stomach issues, U unknown reaction Sulfa Antibiotics Cephalexin Hives and Rash Other reaction(s): Hives Other reaction(s): U Other reaction(s): Hives Other reaction(s): Hives Other reaction(s): Hives, U documented in this encounter [facility] 11-11-2024 Evaluation note Diagnosis Onset Date Resolution HTN (hypertension) chronic October 222024 1:15pm Hyperlipidemia chronic November 11, 2024 1:15pm Hypothyroidism chronic November 11, 2024 1:15pm Osteoporosis chronic November 11, 025 1:15pm Bilateral eye complaint acute A ugust 2024 12:15pm [facility] Work Phone: [phone]) [phone] Telephone encounter Note* Telephone Encounter - Shraddha Palumbo - 11/06/2024 8:34 AM EDT Ordering provider: jessie Date of last office visit: 08/20/2024 Date of next office visit: 12/17/2024 Updated/Validated preferred pharmacy: yes Patient instructed to contact the pharmacy prior to picking up the medication: yes (1) Medication name: hfa proair inhaler Medication dosage: 90 mcg (Micrograms) Monthly quantity needed: 120 How many day supply requestin days Medication route: inhalation (inhaler) Medication administration time(s): every 4 hours If taking medication PRN, reason for taking medication: no If this is a controlled substance do you receive this or any other controlled medication from any other doctor or facility: no Date of last refill (see medication tab): n/a [id number] Telephone encounter Note* Telephone Encounter - Beny Smith NP - 11/04/2024 1:38 PM EDT Spoke with dayana on phone, complains of wheezing, increased work of breathing has got worse over past few days. Reports finished prednisone 40 mg for 5 days on October 28 and has became worse. Has IgE infusion 11/10/24 and is planning to have discussion with physician regarding persistent symptoms after each infusion. Patient does have a follow up appointment with joyce Brown 12/03/24. Expressed discussion of dependence on steroid for symptom control and exploring alternative treatments. Dupixentgave her side effects, Ohtuvayre is too expensive, as are many inhalers. Mostly concerned that patient is not responding to treatment plan. Sent in 5 days 40 mg prednisone [id number] Miscellaneous Notes* Telephone Encounter - Beny Smith NP - 11/04/2024 1:38 PM EDT Spoke with dayana on phone, complains of wheezing, increased work of breathing has got worse over past few days. Reports finished prednisone 40 mg for 5 days on October 28 and has became worse. Has IgE infusion 11/10/24 and is planning to have discussion with physician regarding persistent symptoms after each infusion. Patient does have a follow up appointment with joyce Brown 12/03/24. Expressed discussion of dependence on steroid for symptom control and exploring alternative treatments. Dupixentgave her side effects, Ohtuvayre is too expensive, as are many inhalers. Mostly concerned that patient is not responding to treatment plan. Sent in 5 days 40 mg prednisone * Telephone Encounter - Beatrice Weinberg - 11/04/2024 11:38 AM EDT Patient called requesting prednisone to be called in to [facility] pharmacy in [place]. She is wheezing. If you cannot call in, she will come in to office visit if needed. * Telephone Encounter - Lucila Sanderson - 10/30/2024 1:09 PM EDT Name of caller: Aleena Contact phone number: [phone] Relationship to Patient: patient Provider: Archie ACEVEDO Practice: Pulm Chief Complaint/Reason for Call: Pt states that she does not feel bad but can not breathe and that she ran out of predniSONE (Deltasone) 20 MG tablet [[id number]] Pt asking for more to be sent to Pharmacy [facility]/pharmacy #[id number] - [facility] [address] [address] MEHNAZ #: [id number] Best time of day caller can be reached: Any Patient advised that office/PCP has 24-48 business hours to return their call: Yes documented in this [facility]ast [id number] Telephone encounter Note* Telephone Encounter - Beatrice Weinberg - 11/04/2024 11:38 AM EDT Patient called requesting prednisone to be called in to [facility] pharmacy in [place]. She is wheezing. If you cannot call in, she will come in to office visit if needed. [id number] Telephone encounter Note* Telephone Encounter - Lucila Sanderson - 10/30/2024 1:09 PM EDT Name of caller: Aleena Contact phone number: [phone] Relationship to Patient: patient Provider: Archie ACEVEDO Practice: Pulm Chief Complaint/Reason for Call: Pt states that she does not feel bad but can not breathe and that she ran out of predniSONE (Deltasone) 20 MG tablet [[id number]] Pt asking for more to be sent to Pharmacy [facility]/pharmacy [address] [place] [address] MEHNAZ #: [id number] Best time of day caller can be reached: Any Patient advised that office/PCP has 24-48 business hours to return their call: Yes [id number] Telephone encounter Note* Telephone Encounter - Catherine FelderMery - 10/27/2024 7:26 AM EDT Last follow up: 10/20/2024 Next appointment: 12/03/2024 Allergies[1] Requested Prescriptions Pending Prescriptions Disp Refills fluconazole (Diflucan) 100 MG tablet [Pharmacy Med Name: FLUCONAZOLE 100 MG TABLET] 7 tablet 0 Sig: TAKE 1 TABLET BY MOUTH DAILY FOR 7 DAYS [1] Allergies Allergen Reactions Lisinopril Shortness of breath Cough and wheezing Other Other Envirmental allergies trees pollen rag weed, douglass Ampicillin Other reaction(s): Other, stomach issues Aspirin Hives Other reaction(s): U Other reaction(s): U Augmentin [Amoxicillin-Pot Clavulanate] Codeine Other reaction(s): GI Upset sleepy, dizzy Erythromycin unknown reaction Levaquin [Levofloxacin] Other Joint pain (ankles) Misc. Sulfonamide Containing Compounds Penicillins Other reaction(s): Other (See Comments) Upset stomach Other reaction(s): Other Other reaction(s): U Other reaction(s): Other Other reaction(s): Other, stomach issues Other reaction(s): stomach issues, U unknown reaction Sulfa Antibiotics Cephalexin Hives and Rash Other reaction(s): Hives Other reaction(s): U Other reaction(s): Hives Other reaction(s): Hives Other reaction(s): Hives, U [id number] Miscellaneous Notes* Telephone Encounter - Catherine Kent - 10/27/2024 7:26 AM EDT Last follow up: 10/20/2024 Next appointment: 12/03/2024 Allergies[1] Requested Prescriptions Pending Prescriptions Disp Refills fluconazole (Diflucan) 100 MG tablet [Pharmacy Med Name: FLUCONAZOLE 100 MG TABLET] 7 tablet 0 Sig: TAKE 1 TABLET BY MOUTH DAILY FOR 7 DAYS [1] Allergies Allergen Reactions Lisinopril Shortness of breath Cough and wheezing Other Other Envirmental allergies trees pollen rag weed, douglass Ampicillin Other reaction(s): Other, stomach issues Aspirin Hives Other reaction(s): U Other reaction(s): U Augmentin [Amoxicillin-Pot Clavulanate] Codeine Other reaction(s): GI Upset sleepy, dizzy Erythromycin unknown reaction Levaquin [Levofloxacin] Other Joint pain (ankles) Misc. Sulfonamide Containing Compounds Penicillins Other reaction(s): Other (See Comments) Upset stomach Other reaction(s): Other Other reaction(s): U Other reaction(s): Other Other reaction(s): Other, stomach issues Other reaction(s): stomach issues, U unknown reaction Sulfa Antibiotics Cephalexin Hives and Rash Other reaction(s): Hives Other reaction(s): U Other reaction(s): Hives Other reaction(s): Hives Other reaction(s): Hives, U documented in this [facility]07-03-2025 Telephone encounter Note* Telephone Encounter - Beny Smith NP - 10/23/2024 10:32 AM EDT Spoke with patient regarding prednisone order placed. Asked for a recommendation for florist's decorator with [facility] - She would like a second opinion regarding IgG deficiency, IVIG infusions and states reactions secondary post transfusion is becoming problematic and symptoms are worse than before. Symptoms oare consistently exacerbated by IVIG infusions she receives monthly from immunology Dr Davis in [facility]. Claims inhalers/nebulizer are not helping [id number] Miscellaneous Notes* Telephone Encounter - Beny Smith NP - 10/23/2024 10:32 AM EDT Spoke with patient regarding prednisone order placed. Asked for a [facility] - She would like a second opinion regarding IgG deficiency, IVIG infusions and states reactions secondary post transfusion is becoming problematic and symptoms are worse than before. Symptoms oare consistently exacerbated by IVIG infusions she receives monthly from immunology Dr Davis in [facility]. Claims inhalers/nebulizer are not helping documented in this [facility]07-01-2025 Telephone encounter Note* Telephone Encounter - Elba Neto Alvarenga - 10/21/2024 4:03 PM EDT Name of caller: Carly Contact phone number: [phone] Relationship to Patient: pharmacy Provider: SEA Smith Practice: pulm Chief Complaint/Reason for Call: Carly states the medication predniSONE (Deltasone) 10 MG tablet has two set of directions and they would like to verify the correct one. Please advise. Best time of day caller can be reached: any Patient advised that office/PCP has 24-48 business hours to return their call: N/A [id number] Miscellaneous Notes* Telephone Encounter - Elba Alvarenga - 10/21/2024 4:03 PM EDT Name of caller: Carly Contact phone number: [phone] Relationship to Patient: pharmacy Provider: SEA Smith Practice: pulm Chief Complaint/Reason for Call: Carly states the medication predniSONE (Deltasone) 10 MG tablet has two set of directions and they would like to verify the correct one. Please advise. Best time of day caller can be reached: any Patient advised that office/PCP has 24-48 business hours to return their call: N/A documented in this encounterSEast [facility] [id number] History of Present illness Narrative* Beny Smith NP - 10/20/2024 11:30 AM EDT Images from the original note were not included. [facility] [address] [place] [id number] Date of Service: 10/20/2024 Visit type: An Established patient Chief Complaint/Reason for Referral: No chief complaint on file. SUBJECTIVE History of Present Illness: Dayana Briggs ( 1950) is a 74 y.o. 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 Last seen by Dr Castellon 08/28/24 - Presents with recurrent poorly controlled asthma/COPD. Multiple prednisone treatments over past 12 months from multiple providers. Was treated with prednisone and Augmentin just over a month ago. Symptoms are consistently exacerbated by IVIG infusions she is receiving monthly from immunology Dr. Davis in [facility]. Can hear audible crackles and wheezing while patient is sitting in roomwith me today. Wearing oxygen 2-3 L goal for supplemental O2 to keep pulse ox 88-92% when she needsit during the day. Room air currently. Does not wear at rest only with activity/walking. SpO2 running 95-97% with oxygenIs here on room air, SpO2 is 94%. SpO2 - wearing 2.5 Liters at home more frequent at home, POC wears when walking. If sitting stays room air. Stopped using Trelegy prior to 09/29/2024, no longer wanted to use it as it was not beneficial to her at all. Attempted to qualify her for Trelegy joe which she was over qualified. Patient has severe obstruction with +BD response, tripletherapy is appropriate. Has been trying multiple inhalers and LAMA seem to be the once that cost too much. On 10/17/24 she called in to the office, having a typical flare up 3 days after her infusion last week and requested for an inhaler and steroid. Started steroid 10/18/24, has had 2 doses of 5 40 mg doses called in. Spiriva inhaler was called in and too expensive. Did start using fluticasone-salmeterol 250-50 on regular basis, states not sure that it helping. Using Duo Neb every 4-6 hours. Does help get the mucous out. Does not cough much and typically its non productive. Taking Zarirlukast daily, and its affordable. Taking Mucinex daily. Does not appear to be in distress. States chest feels tight, coughing more frequent, like a rattling and can't cough anything up, and increased shortness of breath. Denies fever, chill, leg swelling, palpitations. MMRC Dyspnea Scale: Grade Description of Breathlessness [...] am breathless when dressing. OBJECTIVE MEDICAL HISTORY: Medical History[1] SURGICAL HISTORY: Surgical History[2] ALLERGIES: Allergies[3] MEDICATIONS: Current Medications[4] SOCIAL HISTORY: Social History Tobacco Use Smoking status: Former Current packs/day: 0.00 Average packs/day: 2.0 packs/day for 53.2 years (106.4 ttl pk-yrs) Types: Cigarettes Start date: 09/14/1955 Quit date: 12/01/2008 Years since quittin.8 Smokeless tobacco: Never Substance Use Topics Alcohol use: No Alcohol/week: 0.0 standard drinks of alcohol FAMILY HISTORY: Family History[5] REVIEW OF SYSTEMS: Review of Systems Constitutional: Positive for fatigue. Negative for activity change, chills and fever. HENT: Positive for congestion. Respiratory: Positive for cough, chest tightness, shortness of breath and wheezing. Cardiovascular: Negative for palpitations and leg swelling. Neurological: Negative for light-headedness and headaches. VITAL SIGNS: There were no vitals taken for this visit. PHYSICAL EXAM: Physical Exam Constitutional: Appearance: She is obese. HENT: Nose: Congestion present. Cardiovascular: Rate and Rhythm: Normal rate and regular rhythm. Pulses: Normal pulses. Heart sounds: Normal heart sounds. No murmur heard. Pulmonary: Effort: No respiratory distress. Breath sounds: No stridor. Examination of the right-middle field reveals decreased breath sounds. Examination of the left-middle field reveals decreased breath sounds. Examination of the right-lower field reveals decreased breath sounds. Examination of the left-lower field reveals decreased breath sounds and rhonchi. Decreased breath sounds, wheezing and rhonchi present. Skin: General: Skin is warm and dry. Neurological: Mental Status: She is alert and oriented to person, place, and time. Psychiatric: Behavior: Behavior normal. DATA REVIEWED: PFT's-- CXR-- 06/11/24 FINDINGS: Lungs: Moderate to severe pulmonary emphysema. 1.2 x 0.7 cm right upper lobe nodule has decreased in size from 2021. Mild focal right upper lobe bronchiectasis (3:77). No regional groundglass opacity, peripheral septal thickening, or honeycombing. No focal areas of air trapping seen on expiratory imaging. Pleura: No pleural thickening or effusion Heart/Great vessels: Normal heart size with no pericardial effusion. There is moderate coronary artery calcification. The aorta and pulmonary arteries are normal in caliber. Mediastinum/Paty: No enlarged mediastinal, hilar, or axillary lymph nodes. Small hiatal hernia. Visualized Upper Abdomen: 2 cm fluid attenuation cyst in the right kidney. Cholecystectomy. Chest wall/Lower neck: No masses or lymphadenopathy. Bones: No suspicious osseous lesions. Severe right glenohumeral osteoarthrosis. IMPRESSION: Moderate to severe pulmonary emphysema. CT Chest - 06/11/2024 COMPARISON: 06/05/2023 and 05/13/2021 Technique: Axial CT images were obtained of the chest. Images were reformatted in coronal and sagittal projections. Dose reduction was employed with automated exposure control. Intravenous contrast: None FINDINGS: Lungs: Moderate to severe pulmonary emphysema. 1.2 x 0.7 cm right upper lobe nodule has decreased in size from 2021. Mild focal right upper lobe bronchiectasis (3:77). No regional groundglass opacity, peripheral septal thickening, orhoneycombing. No focal areas of air trapping seen on expiratory imaging. Pleura: No pleural thickening or effusion Heart/Great vessels: Normal heart size with no pericardial effusion. There is moderate coronary artery calcification. The aorta and pulmonary arteries are normal in caliber. Mediastinum/Paty: No enlarged mediastinal, hilar, or axillary lymph nodes. Small hiatal hernia. Visualized Upper Abdomen: 2 cm fluid attenuation cyst in the right kidney. Cholecystectomy. Chest wall/Lower neck: No masses or lymphadenopathy. Bones: No suspicious osseous lesions. Severe right glenohumeral osteoarthrosis. IMPRESSION: Moderate to severe pulmonary emphysema PET/CT - 01/27/2021 COMPARISON: CT chest dated 12/21/2020 NECK AND CHEST: There is a noncalcified [...] is seen within the neck or chest. IMPRESSION: Noncalcified nodules in the right upper lobe demonstrates mild FDG accumulation, less than typically expected for malignancy. Routine CT follow-up is recommended to ensure stability. TTE--01/10/2024 Left Ventricle: Left ventricle size is normal. Normal wall thickness. Normal left ventricular systolic function. EF by 2D Simpsons Biplane is 72%. Normal wall motion. Elevated left ventricular filling pressure. Right Ventricle: Right ventricle size is normal. Normal systolic function. Aortic Valve: No stenosis. AV mean gradient is 4 mmHg. AV peak gradient is 8 mmHg. LVOT:AV VTI Index is 0.77. LVOT diameter is 2.0 cm. AV area by continuity VTI is 2.3 cm2. Stroke volume index is 46.5 mL/m2. Tricuspid Valve: Mild (1+) regurgitation. Normal hepatic vein systolic flow. Normal RVSP. RVSP is 25 mmHg. Pulmonic Valve: Trace regurgitation. Interatrial Septum: No interatrial shunt visualized on color Doppler. Grade 0 Absence of bubbles. Agitated saline study was negative with and without provocation. ASSESSMENT and PLAN 1. COPD with acute exacerbation (HCC) (Primary) - increased shortness of breath, rattling in chest cough, and wheezing after every IVIG infusion each month. Symptoms started last , 10/16/2024, 5 days 40 burst called in 10/17/24. Clinically not improved. - continue prednisone taper placed for 12 days. - start Augmentin 600-42.9 mg/5 ml for 7 days 2. Centrilobular emphysema (HCC) PFT shows - moderate to sever obstruction with +BD response, hyperinflations, air trapping and mildly reduced gas exchange - CT shows moderate to severe pulmonary emphysema. - fluticasone-salmeterol 250-50 called in 10/17/2024 and was affordable - Spiriva was called in 10/17/2024, not affordable, did not steel pickler - continue Duo Neb for symptom relief as needed every 6 hours - continue Zafirlukast daily 3. 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 Follows immunology - Dr. Davis. - persistently has exacerbations following infusions. Declined further evaluation to pursue BLVR. Reports Dupixent treatment from florist's decorator gave her a bad reaction and had to stop. 4. Chronic respiratory failure with hypoxia (HCC) - continue to use supplemental O2 to keep pulse ox 88-92% 5. Wheezing - persistently wheezing since . Can hear it audibly. Has slightly improved since starting prednisone 10/17/2024. Will continue to taper steroids for better coverage. Want to further reduce inflammation in airways. - discussed increased risk of infections, suppressing immune system. 5. Lung nodule Recent CT 08/2024 - 1.2 x 0.7 cm right upper lobe nodule has decreased in size from 2021. 6. Personal history of tobacco use, presenting hazards to health Quit smoking in 2008 - although living with smokers. History of tobacco use greater than [id number]. FOLLOW UP: No follow-ups on file. Portions of the information within this encounter were entered using an electronic dictation system. Best attempts were made to proofread the information prior to note completion. Despite the review of the information, some errors may remain. If there are questions related to the information contained within the note please contact the signing provider directly. Electronically signed by: Beny Smith NP Pulmonary & Sleep Medicine [1] Past Medical History: Diagnosis Date Asthma 2006 Breast cancer screening 02/2024 COPD (chronic obstructive pulmonary disease) (HCC) 2013 Home O2 since 2015 Ex-smoker 2008 GERD (gastroesophageal reflux disease) H/O colonoscopy 2018 due 2028 History of idiopathic thrombocytopenic purpura 2006 resolved History of shingles 2020 left CN V Hypertension 2004 Hypothyroidism IBS (irritable bowel syndrome) 2000 per [facility] Immunoglobulin deficiency (HCC) 2008 [place] Nodule of upper lobe of right lung no change per LDCT- due 05/2025 Osteoporosis [address] Field Renal stones [2] Past Surgical History: Procedure Laterality Date APPENDECTOMY 1965 BREAST BIOPSY Right 2010 benign BREAST CYST ASPIRATION Left 2007 benign CATARACT EXTRACTION W/ INTRAOCULAR LENS IMPLANT Bilateral CHOLECYSTECTOMY 2013 COLONOSCOPY 10/2018 Dr. Argueta- due 2028 COLONOSCOPY 2008 [facility] DENTAL SURGERY dentures HEMORRHOID SURGERY 1994 MENISCECTOMY Left 2016 [place] PARTIAL HYSTERECTOMY 1994 DUB- Ovaries intact SKIN BIOPSY from left arm, under right breast, and forehead. All negative for CA TONSILLECTOMY (HISTORICAL) [3] Allergies Allergen Reactions Lisinopril Shortness of breath Cough and wheezing Other Other Envirmental allergies trees pollen rag weed, douglass Ampicillin Other reaction(s): Other, stomach issues Aspirin Hives Other reaction(s): U Other reaction(s): U Augmentin [Amoxicillin-Pot Clavulanate] Codeine Other reaction(s): GI Upset sleepy, dizzy Erythromycin unknown reaction Levaquin [Levofloxacin] Other Joint pain (ankles) Misc. Sulfonamide Containing Compounds Penicillins Other reaction(s): Other (See Comments) Upset stomach Other reaction(s): Other Other reaction(s): U Other reaction(s): Other Other reaction(s): Other, stomach issues Other reaction(s): stomach issues, U unknown reaction Sulfa Antibiotics Cephalexin Hives and Rash Other reaction(s): Hives Other reaction(s): U Other reaction(s): Hives Other reaction(s): Hives Other reaction(s): Hives, U [4] Current Outpatient Medications: albuterol (2.5 MG/3ML) 0.083% nebulizer solution, Take 3 mL (2.5 mg) by nebulization every 4 hours as needed for wheezing or shortness of breath., Disp: 75 mL, Rfl: 2 albuterol 108 (90 Base) MCG/ACT inhaler, Inhale 2 puffs every 4 hours as needed for shortness of breath., Disp: 1 each, Rfl: 2 amLODIPine (Norvasc) 5 MG tablet, TAKE 1 TABLET BY MOUTH EVERY DAY, Disp: 90 tablet, Rfl: 1 atorvastatin (Lipitor) 10 MG tablet, Take 1 tablet (10 mg) by mouth daily., Disp: 90 tablet, Rfl: 3 cholecalciferol (Vitamin D-3) 25 MCG (1000 UT) capsule, Take 1 capsule by mouth in the morning and 1 capsule before bedtime., Disp: , Rfl: Fluticasone-Salmeterol 250-50 MCG/ACT aerosol powder , Inhale 1 puff 2 times daily., Disp: 1 each, Rfl: 5 ipratropium (Atrovent) 0.02 % nebulizer solution, INHALE THE CONTENTS OF 1 VIAL VIA NEBULIZER 2 TIMES DAILY, Disp: , Rfl: ipratropium-albuterol (Duo-Neb) 0.5-2.5 mg/3 mL nebulizer solution, Take 3 mL by nebulization 4 times daily as needed for wheezing., Disp: 30 mL, Rfl: 2 levothyroxine (Synthroid, Levoxyl) 100 MCG tablet, Take 1 tablet (100 mcg) by mouth daily for 360 doses., Disp: 90 tablet, Rfl: 3 loratadine (Claritin Allergy Childrens) 5 MG/5ML solution solution, Take 10 mL (10 mg) by mouth daily., Disp: 300 mL, Rfl: 1 omeprazole (PriLOSEC) [address] capsule, Take 1 capsule (20 mg) by mouth daily., Disp: 90 capsule, Rfl: 3 Potassium Gluconate 2.5 MEQ tablet, Take by mouth., Disp: , Rfl: predniSONE (Deltasone) 20 MG tablet, Take 2 tablets (40 mg) by mouth daily for 5 days., Disp: 10 tablet, Rfl: 0 spironolactone (Aldactone) 25 MG tablet, Take 1 tablet (25 mg) by mouth daily., Disp: 90 tablet, Rfl: 1 tiotropium (Spiriva Respimat) 2.5 MCG/ACT inhaler, Inhale 2 puffs daily., Disp: 1 each, Rfl: 5 zafirlukast (Accolate) 20 MG tablet, Take 20 mg by mouth in the morning and 20 mg before bedtime., Disp: , Rfl: Current Facility-Administered Medications: albuterol (2.5 MG/3ML) 0.083% nebulizer solution 2.5 mg, 2.5 mg, Nebulization, Once, Jazmin Moy PA-C ipratropium (Atrovent) 0.02 % nebulizer solution 0.5 mg, 0.5 mg, Nebulization, Once, Jazmin Moy PA-C [5] Family History Problem Relation Name Age of Onset High Blood Pressure Mother Tessa Garduno alive age 99 Rheum arthritis Father Heart disease Father age 59 Other ([id number]) Sister Ella adrenal issues Skin cancer Sister Ester COPD Brother Josh age 65, smoker Lung cancer Brother Josh 70 Prostate cancer Brother Matt 60 No Known Problems Brother Bhanu No Known Problems Brother Bill Breast cancer Paternal Cousin 35 documented in this [facility]06-30-2025 History of Present illness Narrative* Beny Smith NP - 10/20/2024 11:30 AM EDT Images from the original note were not included. [facility]monary [facility] [address] [place] [address] Date of Service: 10/20/2024 Visit type: An Established patient Chief Complaint/Reason for Referral: No chief complaint on file. SUBJECTIVE History of Present Illness: Dayana Briggs ( 1950) is a 74 y.o. 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 Last seen by Dr Castellon 08/28/24 - Presents with recurrent poorly controlled asthma/COPD. Multiple prednisone treatments over past 12 months from multiple providers. Was treated with prednisone and Augmentin just over a month ago. Symptoms are consistently exacerbated by IVIG infusions she is receiving monthly from immunology Dr. Davis in [facility]. Can hear audible crackles and wheezing while patient is sitting in roomwith me today. Wearing oxygen 2-3 L goal for supplemental O2 to keep pulse ox 88-92% when she needsit during the day. Room air currently. Does not wear at rest only with activity/walking. SpO2 running 95-97% with oxygenIs here on room air, SpO2 is 94%. SpO2 - wearing 2.5 Liters at home more frequent at home, POC wears when walking. If sitting stays room air. Stopped using Trelegy prior to 09/29/2024, no longer wanted to use it as it was not beneficial to her at all. Attempted to qualify her for Trelegy joe which she was over qualified. Patient has severe obstruction with +BD response, tripletherapy is appropriate. Has been trying multiple inhalers and LAMA seem to be the once that cost too much. On 10/17/24 she called in to the office, having a typical flare up 3 days after her infusion last week and requested for an inhaler and steroid. Started steroid 10/18/24, has had 2 doses of 5 40 mg doses called in. Spiriva inhaler was called in and too expensive. Did start using fluticasone-salmeterol 250-50 on regular basis, states not sure that it helping. Using Duo Neb every 4-6 hours. Does help get the mucous out. Does not cough much and typically its non productive. Taking Zarirlukast daily, and its affordable. Taking Mucinex daily. Does not appear to be in distress. States chest feels tight, coughing more frequent, like a rattling and can't cough anything up, and increased shortness of breath. Denies fever, chill, leg swelling, palpitations. MMRC Dyspnea Scale: Grade Description of Breathlessness [...] am breathless when dressing. OBJECTIVE MEDICAL HISTORY: Medical History[1] SURGICAL HISTORY: Surgical History[2] ALLERGIES: Allergies[3] MEDICATIONS: Current Medications[4] SOCIAL HISTORY: Social History Tobacco Use Smoking status: Former Current packs/day: 0.00 Average packs/day: 2.0 packs/day for 53.2 years (106.4 ttl pk-yrs) Types: Cigarettes Start date: 09/14/1955 Quit date: 12/01/2008 Years since quittin.8 Smokeless tobacco: Never Substance Use Topics Alcohol use: No Alcohol/week: 0.0 standard drinks of alcohol FAMILY HISTORY: Family History[5] REVIEW OF SYSTEMS: Review of Systems Constitutional: Positive for fatigue. Negative for activity change, chills and fever. HENT: Positive for congestion. Respiratory: Positive for cough, chest tightness, shortness of breath and wheezing. Cardiovascular: Negative for palpitations and leg swelling. Neurological: Negative for light-headedness and headaches. VITAL SIGNS: There were no vitals taken for this visit. PHYSICAL EXAM: Physical Exam Constitutional: Appearance: She is obese. HENT: Nose: Congestion present. Cardiovascular: Rate and Rhythm: Normal rate and regular rhythm. Pulses: Normal pulses. Heart sounds: Normal heart sounds. No murmur heard. Pulmonary: Effort: No respiratory distress. Breath sounds: No stridor. Examination of the right-middle field reveals decreased breath sounds. Examination of the left-middle field reveals decreased breath sounds. Examination of the right-lower field reveals decreased breath sounds. Examination of the left-lower field reveals decreased breath sounds and rhonchi. Decreased breath sounds, wheezing and rhonchi present. Skin: General: Skin is warm and dry. Neurological: Mental Status: She is alert and oriented to person, place, and time. Psychiatric: Behavior: Behavior normal. DATA REVIEWED: PFT's-- CXR-- 06/11/24 FINDINGS: Lungs: Moderate to severe pulmonary emphysema. 1.2 x 0.7 cm right upper lobe nodule has decreased in size from 2021. Mild focal right upper lobe bronchiectasis (3:77). No regional groundglass opacity, peripheral septal thickening, or honeycombing. No focal areas of air trapping seen on expiratory imaging. Pleura: No pleural thickening or effusion Heart/Great vessels: Normal heart size with no pericardial effusion. There is moderate coronary artery calcification. The aorta and pulmonary arteries are normal in caliber. Mediastinum/Paty: No enlarged mediastinal, hilar, or axillary lymph nodes. Small hiatal hernia. Visualized Upper Abdomen: 2 cm fluid attenuation cyst in the right kidney. Cholecystectomy. Chest wall/Lower neck: No masses or lymphadenopathy. Bones: No suspicious osseous lesions. Severe right glenohumeral osteoarthrosis. IMPRESSION: Moderate to severe pulmonary emphysema. CT Chest - 06/11/2024 COMPARISON: 06/05/2023 and 05/13/2021 Technique: Axial CT images were obtained of the chest. Images were reformatted in coronal and sagittal projections. Dose reduction was employed with automated exposure control. Intravenous contrast: None FINDINGS: Lungs: Moderate to severe pulmonary emphysema. 1.2 x 0.7 cm right upper lobe nodule has decreased in size from 2021. Mild focal right upper lobe bronchiectasis (3:77). No regional groundglass opacity, peripheral septal thickening, orhoneycombing. No focal areas of air trapping seen on expiratory imaging. Pleura: No pleural thickening or effusion Heart/Great vessels: Normal heart size with no pericardial effusion. There is moderate coronary artery calcification. The aorta and pulmonary arteries are normal in caliber. Mediastinum/Paty: No enlarged mediastinal, hilar, or axillary lymph nodes. Small hiatal hernia. Visualized Upper Abdomen: 2 cm fluid attenuation cyst in the right kidney. Cholecystectomy. Chest wall/Lower neck: No masses or lymphadenopathy. Bones: No suspicious osseous lesions. Severe right glenohumeral osteoarthrosis. IMPRESSION: Moderate to severe pulmonary emphysema PET/CT - 01/27/2021 COMPARISON: CT chest dated 12/21/2020 NECK AND CHEST: There is a noncalcified [...] is seen within the neck or chest. IMPRESSION: Noncalcified nodules in the right upper lobe demonstrates mild FDG accumulation, less than typically expected for malignancy. Routine CT follow-up is recommended to ensure stability. TTE--01/10/2024 Left Ventricle: Left ventricle size is normal. Normal wall thickness. Normal left ventricular systolic function. EF by 2D Simpsons Biplane is 72%. Normal wall motion. Elevated left ventricular filling pressure. Right Ventricle: Right ventricle size is normal. Normal systolic function. Aortic Valve: No stenosis. AV mean gradient is 4 mmHg. AV peak gradient is 8 mmHg. LVOT:AV VTI Index is 0.77. LVOT diameter is 2.0 cm. AV area by continuity VTI is 2.3 cm2. Stroke volume index is 46.5 mL/m2. Tricuspid Valve: Mild (1+) regurgitation. Normal hepatic vein systolic flow. Normal RVSP. RVSP is 25 mmHg. Pulmonic Valve: Trace regurgitation. Interatrial Septum: No interatrial shunt visualized on color Doppler. Grade 0 Absence of bubbles. Agitated saline study was negative with and without provocation. ASSESSMENT and PLAN 1. COPD with acute exacerbation (HCC) (Primary) - increased shortness of breath, rattling in chest cough, and wheezing after every IVIG infusion each month. Symptoms started last , 10/16/2024, 5 days 40 burst called in 10/17/24. Clinically not improved. - continue prednisone taper placed for 12 days. - start Augmentin 600-42.9 mg/5 ml for 7 days 2. Centrilobular emphysema (HCC) PFT shows - moderate to sever obstruction with +BD response, hyperinflations, air trapping and mildly reduced gas exchange - CT shows moderate to severe pulmonary emphysema. - fluticasone-salmeterol 250-50 called in 10/17/2024 and was affordable - Spiriva was called in 10/17/2024, not affordable, did not steel pickler - continue Duo Neb for symptom relief as needed every 6 hours - continue Zafirlukast daily 3. 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 Follows immunology - Dr. Davis. - persistently has exacerbations following infusions. Declined further evaluation to pursue BLVR. Reports Dupixent treatment from florist's decorator gave her a bad reaction and had to stop. 4. Chronic respiratory failure with hypoxia ([facility]) - continue to use supplemental O2 to keep pulse ox 88-92% 5. Wheezing - persistently wheezing since . Can hear it audibly. Has slightly improved since starting prednisone 10/17/2024. Will continue to taper steroids for better coverage. Want to further reduce inflammation in airways. - discussed increased risk of infections, suppressing immune system. 5. Lung nodule Recent CT 08/2024 - 1.2 x 0.7 cm right upper lobe nodule has decreased in size from 2021. 6. Personal history of tobacco use, presenting hazards to health Quit smoking in 2008 - although living with smokers. History of tobacco use greater than [id number]. FOLLOW UP: No follow-ups on file. Portions of the information within this encounter were entered using an electronic dictation system. Best attempts were made to proofread the information prior to note completion. Despite the review of the information, some errors may remain. If there are questions related to the information contained within the note please contact the signing provider directly. Electronically signed by: Beny Smith NP Pulmonary & Sleep Medicine [1] Past Medical History: Diagnosis Date Asthma 2006 Breast cancer screening 02/2024 COPD (chronic obstructive pulmonary disease) ([facility]) 2014 Home O2 since 2015 Ex-smoker 2008 GERD (gastroesophageal reflux disease) H/O colonoscopy 2018 due 2028 History of idiopathic thrombocytopenic purpura 2006 resolved History of shingles 2020 left CN V Hypertension 2004 Hypothyroidism IBS (irritable bowel syndrome) [address] [facility] Immunoglobulin deficiency ([facility]) 2008 monthly IVIG infusion per Dr. Davis, [place], [place] Nodule of upper lobe of right lung no change per LDCT- due 05/2025 Osteoporosis [address] Field Renal stones [2] Past Surgical History: Procedure Laterality Date APPENDECTOMY 1965 BREAST BIOPSY Right 2010 benign BREAST CYST ASPIRATION Left 2007 benign CATARACT EXTRACTION W/ INTRAOCULAR LENS IMPLANT Bilateral CHOLECYSTECTOMY 2012 COLONOSCOPY 10/2018 Dr. Argueta- due 2028 COLONOSCOPY 2008 [facility] DENTAL SURGERY dentures HEMORRHOID SURGERY 1994 MENISCECTOMY Left 2016 [facility] PARTIAL HYSTERECTOMY 1994 DUB- Ovaries intact SKIN BIOPSY from left arm, under right breast, and forehead. All negative for CA TONSILLECTOMY (HISTORICAL) [3] Allergies Allergen Reactions Lisinopril Shortness of breath Cough and wheezing Other Other Envirmental allergies trees pollen rag weed, douglass Ampicillin Other reaction(s): Other, stomach issues Aspirin Hives Other reaction(s): U Other reaction(s): U Augmentin [Amoxicillin-Pot Clavulanate] Codeine Other reaction(s): GI Upset sleepy, dizzy Erythromycin unknown reaction Levaquin [Levofloxacin] Other Joint pain (ankles) Misc. Sulfonamide Containing Compounds Penicillins Other reaction(s): Other (See Comments) Upset stomach Other reaction(s): Other Other reaction(s): U Other reaction(s): Other Other reaction(s): Other, stomach issues Other reaction(s): stomach issues, U unknown reaction Sulfa Antibiotics Cephalexin Hives and Rash Other reaction(s): Hives Other reaction(s): U Other reaction(s): Hives Other reaction(s): Hives Other reaction(s): Hives, U [4] Current Outpatient Medications: albuterol (2.5 MG/3ML) 0.083% nebulizer solution, Take 3 mL (2.5 mg) by nebulization every 4 hours as needed for wheezing or shortness of breath., Disp: 75 mL, Rfl: 2 albuterol 108 (90 Base) MCG/ACT inhaler, Inhale 2 puffs every 4 hours as needed for shortness of breath., Disp: 1 each, Rfl: 2 amLODIPine (Norvasc) 5 MG tablet, TAKE 1 TABLET BY MOUTH EVERY DAY, Disp: 90 tablet, Rfl: 1 atorvastatin (Lipitor) 10 MG tablet, Take 1 tablet (10 mg) by mouth daily., Disp: 90 tablet, Rfl: 3 cholecalciferol (Vitamin D-3) 25 MCG (1000 UT) capsule, Take 1 capsule by mouth in the morning and 1 capsule before bedtime., Disp: , Rfl: Fluticasone-Salmeterol 250-50 MCG/ACT aerosol powder , Inhale 1 puff 2 times daily., Disp: 1 each, Rfl: 5 ipratropium (Atrovent) 0.02 % nebulizer solution, INHALE THE CONTENTS OF 1 VIAL VIA NEBULIZER 2 TIMES DAILY, Disp: , Rfl: ipratropium-albuterol (Duo-Neb) 0.5-2.5 mg/3 mL nebulizer solution, Take 3 mL by nebulization 4 times daily as needed for wheezing., Disp: 30 mL, Rfl: 2 levothyroxine (Synthroid, Levoxyl) 100 MCG tablet, Take 1 tablet (100 mcg) by mouth daily for 360 doses., Disp: 90 tablet, Rfl: 3 loratadine (Claritin Allergy Childrens) 5 MG/5ML solution solution, Take 10 mL (10 mg) by mouth daily., Disp: 300 mL, Rfl: 1 omeprazole (PriLOSEC) [address] capsule, Take 1 capsule (20 mg) by mouth daily., Disp: 90 capsule, Rfl: 3 Potassium Gluconate 2.5 MEQ tablet, Take by mouth., Disp: , Rfl: predniSONE (Deltasone) 20 MG tablet, Take 2 tablets (40 mg) by mouth daily for 5 days., Disp: 10 tablet, Rfl: 0 spironolactone (Aldactone) 25 MG tablet, Take 1 tablet (25 mg) by mouth daily., Disp: 90 tablet, Rfl: 1 tiotropium (Spiriva Respimat) 2.5 MCG/ACT inhaler, Inhale 2 puffs daily., Disp: 1 each, Rfl: 5 zafirlukast (Accolate) 20 MG tablet, Take 20 mg by mouth in the morning and 20 mg before bedtime., Disp: , Rfl: Current Facility-Administered Medications: albuterol (2.5 MG/3ML) 0.083% nebulizer solution 2.5 mg, 2.5 mg, Nebulization, Once, Jazmin Moy PA-C ipratropium (Atrovent) 0.02 % nebulizer solution 0.5 mg, 0.5 mg, Nebulization, Once, Jazmin Moy PA-C [5] Family History Problem Relation Name Age of Onset High Blood Pressure Mother Tessa Garduno alive age 99 Rheum arthritis Father Heart disease Father age 59 Other ([id number]) Sister Ella adrenal issues Skin cancer Sister Ester COPD Brother Josh age 65, smoker Lung cancer Brother Josh 70 Prostate cancer Brother Matt 60 No Known Problems Brother Bhanu No Known Problems Brother Gary Breast cancer Paternal Cousin 35 documented in this [facility]06-30-2025 Instructions* Patient Instructions* Chelsie Narvaez MA - 10/20/2024 11:30 AM EDT YOUR APPOINTMENT TODAY WAS WITH [facility], COPD CLINIC, PULMONARY AND SLEEP MEDICINE OFFICE. PLEASE CALL OUR OFFICE AT [phone] for our [place] office location or [phone] for our [place] location, IF YOU HAVE NOT RECEIVED YOUR [...] to make improvements. COVID-19 VACCINATION INFORMATION: PH. [phone] [email or web address] [facility] Central Scheduling [phone] [facility] Sleep Scheduling [phone] documented in this [facility]06-30-2025 Instructions* Patient Instructions* Chelsie Narvaez MA - 10/20/2024 11:30 AM EDT YOUR APPOINTMENT TODAY WAS WITH THE [facility], COPD CLINIC, PULMONARY AND SLEEP MEDICINE OFFICE. PLEASE CALL OUR OFFICE AT [phone] for our [place] office location or [phone] for our [place] location, IF YOU HAVE NOT RECEIVED YOUR [...] to make improvements. COVID-19 VACCINATION INFORMATION: PH. [phone] [email or web address] [facility] Scheduling [phone] [facility] Scheduling [phone] documented in this [facility]06-30-2025 Miscellaneous Notes* Addendum Note - Bney Smith NP - 10/20/2024 11:30 AM EDTAddended by: BENY SMITH on: 10/22/2024 03:16 PM Modules accepted: Orders documented in this [facility]06-30-2025 Note* Addendum Note - Beny Smith NP - 10/20/2024 11:30 AM EDTAddended by: BENY SMITH on: 10/22/2024 03:16 PM Modules accepted: Orders [id number] History of Present illness Narrative* Joyce Chino RN - 10/17/2024 8:52 AM EDT EMR reviewed. The patient had an appt. with Palliative medicine on 10/16/24: Dayana Briggs is a 74 y.o. female who presents for Palliative Care Follow-up. COPD: Dyspnea with slight exertion, O2 dependent. Pt states warm weather worsens dyspnea. Pt is currently on prednisone burst from road design draftsperson. Pt lives with family for support and is independent of all ADLs Condition: stable Presence of Cough: no Dyspnea: Yes Frequency of Exacerbations: daily Tobacco Use: No Oxygen Use: Continuous 5 L/min Weight Gain/Loss: The patient reports no significant weight change. Medication Adherences: Yes Blood pressure 128/72, pulse 92, temperature 36.7 C (98.1 F), temperature source Temporal, height 1.524 m (5'), weight 145 lb (65.8 kg), SpO2 97%. CM outreach on 10/17/24: PMH: COPD, HTN, IBS, OA, HYPOTHYROID, HYPERLIPIDEMIA HTN MEDS: Amlodipine 5mg daily Spironolactone 25mg daily Occasional checks her BP's-120/70's yesterday-stated had an ROD TAPE OPERATOR from [place] who visits her approximately every 6 weeks. They were there to see her yesterday and checked her vitals. Denies any edema COPD MEDS: Stopped using her Trelegy inhaler 1 puff daily-stated didn't see much of a difference when using it Using Albuterol inhaler every 4 hours Using nebulizer every 4 hours Using 2.5L O2 continuously Monitoring pulse ox daily-97% on 2.5L O2 Has had a lot of wheezing-stated has been worse since Sunday after getting her infusion SOB with any exertion Denies any cough The patient stated she got the IVIG infusion on Sunday. Gets an injection every month. She stated every time after she gets this infusion her breathing gets worse. She recently took Prednisone 50mg per day and Levaquin for 5 days that she had left over. CM educated her on the importance of always finishing the entire antibiotic prescription. Plan: XOCHITL contacted the WATCH AND CLOCK MAKER AND REPAIRER-Joyce Brown at the patient's Pulmonary office regarding the patient's breathing-has had a lot of wheezing. CM suggested possibly Prednisone or an antibiotic, which has helped her in the past. XOCHITL also notified Joyce about the patient not using her Trelegy inhaler and askedher if there is another inhaler that could be prescribed. The patient will continue to use her nebulizer and Albuterol inhaler every 4 hours as needed. She will continue to monitor her pulse ox daily. XOCHITL will continue to follow-up. Scheduled next outreach. * Joyce Brown APRN - KRISTINA - 10/17/2024 8:52 AM EDT Contacted by CM that patient is wheezing and has not been using Trelegy. She has severe obstruction with +BD response. She needs to be on triple therapy of some form. I am not sure what is covered under her drug formulary, but I can try sending some Rx for her and if theyare too expensive, she can let me know and ill send something different. I will also send short course of steroid to get wheezing under control until she gets back on maintenance inhaler. Please update patient on this. Thanks! * Beatrice Weinberg - 10/17/2024 8:52 AM EDT Patient taking steroid, flucticasone, nebulizer, and albuterol inhaler * ROSALIND Holloway CNP - 10/17/2024 8:52 AM EDT Patient seen in pulm office yesterday documented in this [facility]SEast [id number] Telephone encounter Note* Telephone Encounter - ROSALIND Holloway CNP - 10/15/2024 3:22 PM EDT Noted, thanks [id number] Miscellaneous Notes* Telephone Encounter - ROSALIND Holloway CNP - 10/15/2024 3:22 PM EDT Noted, thanks * Telephone Encounter - Eleanor Kennedy CPhT - 10/15/2024 3:11 PM EDT Just following up on this. Since the patient is over income for our financial assistance and does not appear to be taking the medication, we will be discharging her from [facility]. We'd be happy to help with any future referrals. Thank you! Eleanor Kennedy CPhT [facility] * Telephone Encounter - Antony Apoorva - 09/29/2024 2:29 PM EDT Jeffrey, After a few calls back and forth with patient regarding her Trelegy Inhaer, patient has stated thatshe no longer wants to take it and stopped taking it. Patient stated she was on it for a bit and didn't feel that it was working. She stopped and notfied the office according to my staff last week. Then we are following up with her today and she stated she restarted it again for a short time and still didn't feel it was working, so she is quit taking the trelegy inhaler. Notifying the office of this patient decision to see what office would like to do with patient therapy. Thank you, Antony Guerin Special[facility] Pharm[facility] Liaison [facility] documented in this [facility]06-25-2025 Telephone encounter Note* Telephone Encounter - Eleanor Kennedy CPhT - 10/15/2024 3:11 PM EDT Just following up on this. Since the patient is over income for our financial assistance and does not appear to be taking the medication, we will be discharging her from [facility]. We'd be happy to help with any future referrals. Thank you! Eleanor Kennedy CPhT [id number] Telephone encounter Note* Telephone Encounter - Antony Guerin - 09/29/2024 2:29 PM EDT Jeffrey, After a few calls back and forth with patient regarding her Trelegy Inhaer, patient has stated thatshe no longer wants to take it and stopped taking it. Patient stated she was on it for a bit and didn't feel that it was working. She stopped and notfied the office according to my staff last week. Then we are following up with her today and she stated she restarted it again for a short time and still didn't feel it was working, so she is quit taking the trelegy inhaler. Notifying the office of this patient decision to see what office would like to do with patient therapy. Thank you, Antony Guerin Specialty Pharmacy Liaison [facility] [id number] History of Present illness Narrative* Filipe Castellon MD - 08/28/2024 10:15 AM EDT Images from the original note were not included. [facility] Pulmonary Medicine [address] [place] [phone] Date of Service: 08/28/2024 Visit type: An Established patient Chief Complaint/Reason for Referral: Follow-up and COPD (3-MONTH [id number] (JONATHAN)) SUBJECTIVE History of Present Illness: Dayana Briggs ( 1950) is a 74 y.o. 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 History notable for recurrent use of steroids. Symptoms also seem to be exacerbated by getting IVIG infusions. She sees immunology in [facility]. She takes Trelegy as prescribed, but does not feel it really helps her. She also uses nebs without much relief. She declined further evaluation to pursue BLVR. She also reports she was treated with dupixent by her florist's decorator but she had a bad reaction to it and had to stop. She has also tried zafirlukast, which is expensive and not covered by insurance, but she does not find clinical benefit with use. Today, patient reports thankful she has not used steroids in over a month She attributes to stephanie Allison discussed BLVR, I do not think she is ideal candidate and she does not wish to proceed further. ACT: CAT: MMRC Dyspnea Scale: Grade Description of Breathlessness [...] Diagnosis Date Asthma 2006 Breast cancer screening 02/2024 COPD (chronic obstructive pulmonary disease) ([facility]) 2013 Home O2 since 2014 Ex-smoker 2008 GERD (gastroesophageal reflux disease) H/O colonoscopy 2018 due 2028 History of idiopathic thrombocytopenic purpura 2005 resolved History of shingles 2020 left CN V Hypertension 2004 Hypothyroidism IBS (irritable bowel syndrome) 2000 per [facility] Immunoglobulin deficiency (HCC) 2007 monthly IVIG infusion per Dr. Davis [place], [place] Nodule of upper lobe of right lung no change per LDCT- due 05/2025 Osteoporosis [address] infusion [address] Field Renal stones SURGICAL HISTORY: Past Surgical History: Procedure Laterality Date APPENDECTOMY 1965 BREAST BIOPSY Right 2010 benign BREAST CYST ASPIRATION Left 2007 benign CATARACT EXTRACTION W/ INTRAOCULAR LENS IMPLANT Bilateral CHOLECYSTECTOMY 2013 COLONOSCOPY 10/2018 Dr. Argueta- due 2028 COLONOSCOPY 2008 [facility] DENTAL SURGERY dentures HEMORRHOID SURGERY 1995 MENISCECTOMY Left 2016 [facility] PARTIAL HYSTERECTOMY 1994 DUB- Ovaries intact SKIN BIOPSY from left arm, under right breast, and forehead. All negative for CA TONSILLECTOMY (HISTORICAL) ALLERGIES: Allergies Allergen Reactions Lisinopril Shortness of breath Cough and wheezing Other Other Envirmental allergies trees pollen rag weed, douglass Ampicillin Other reaction(s): Other, stomach issues Aspirin Hives Other reaction(s): U Other reaction(s): U Augmentin [Amoxicillin-Pot Clavulanate] Codeine Other reaction(s): GI Upset sleepy, dizzy Erythromycin unknown reaction Levaquin [Levofloxacin] Other Joint pain (ankles) Misc. Sulfonamide Containing Compounds Penicillins Other reaction(s): Other (See Comments) Upset [...] shortness of breath., Disp: 1 each, Rfl: 2 amLODIPine (Norvasc) 5 MG tablet, TAKE 1 TABLET BY MOUTH EVERY DAY, Disp: 90 tablet, Rfl: 1 atorvastatin (Lipitor) 10 MG tablet, Take 1 tablet (10 mg) by mouth daily., Disp: 90 tablet, Rfl: 3 cholecalciferol (Vitamin D-3) 25 MCG (1000 UT) capsule, Take 1 capsule by mouth in the morning and 1 capsule before bedtime., Disp: , Rfl: Fvzldubljki-Yfrjzxsse-Bqknag (Trelegy Ellipta) 200-62.5-25 MCG/ACT aerosol powder , Inhale 1 puff daily., Disp: 1 each, Rfl: 5 ipratropium (Atrovent) 0.02 % nebulizer solution, INHALE THE CONTENTS OF 1 VIAL VIA NEBULIZER 2 TIMES DAILY, Disp: , Rfl: ipratropium-albuterol (Duo-Neb) 0.5-2.5 mg/3 mL nebulizer solution, Take 3 mL by nebulization 4 times daily as needed for wheezing., Disp: 30 mL, Rfl: 2 levothyroxine (Synthroid, Levoxyl) 100 MCG tablet, Take 1 tablet (100 mcg) by mouth daily for 360 doses., Disp: 90 tablet, Rfl: 3 loratadine (Claritin Allergy Childrens) 5 MG/5ML solution solution, Take 10 mL (10 mg) by mouth daily., Disp: 300 mL, Rfl: 1 omeprazole (PriLOSEC) [address] capsule, Take 1 capsule (20 mg) by mouth daily., Disp: 90 capsule, Rfl: 3 Potassium Gluconate 2.5 MEQ tablet, Take by mouth., Disp: , Rfl: sodium chloride 7 % nebulizer solution nebulizer solution, Take 4 mL by nebulization 2 times daily as needed (chest congestion)., Disp: 360 mL, Rfl: 2 spironolactone (Aldactone) 25 MG tablet, Take 1 tablet (25 mg) by mouth daily., Disp: 90 tablet, Rfl: 1 zafirlukast (Accolate) 20 MG tablet, Take 20 mg by mouth in the morning and 20 mg before bedtime., Disp: , Rfl: Current Facility-Administered Medications: albuterol (2.5 MG/3ML) 0.083% nebulizer solution 2.5 mg, 2.5 mg, Nebulization, Once, Jazmin Moy PA-C ipratropium (Atrovent) 0.02 % nebulizer solution 0.5 mg, 0.5 mg, Nebulization, Once, Jazmin Moy PA-C SOCIAL HISTORY: Social History Tobacco Use Smoking status: Former Current packs/day: 0.00 Average packs/day: 2.0 packs/day for 53.2 years (106.4 ttl pk-yrs) Types: Cigarettes Start date: 09/14/1955 Quit date: 12/01/2008 Years since quittin.7 Smokeless tobacco: Never Substance Use Topics Alcohol use: No Alcohol/week: 0.0 standard drinks of alcohol FAMILY HISTORY: Family History Problem Relation Name Age of Onset High Blood Pressure Mother Tessa Garduno alive age 99 Rheum arthritis Father Heart disease Father age 59 Other ([id number]) Sister Ella adrenal issues Skin cancer Sister Ester COPD Brother Josh age 65, smoker Lung cancer Brother Josh 70 Prostate cancer Brother Matt 60 No Known Problems Brother Bhanu No Known Problems Brother Gary Breast cancer Paternal Cousin 35 REVIEW OF SYSTEMS: Review of Systems Constitutional: Positive for activity change. Negative for appetite change, chills, fatigue, fever and unexpected weight change. HENT: Positive for congestion. Negative for postnasal drip, rhinorrhea, sneezing and sore throat. Respiratory: Positive for cough, shortness of breath and wheezing (improved some). Negative for apnea and chest tightness. Cardiovascular: Negative for chest pain, palpitations and leg swelling. Allergic/Immunologic: Negative for environmental allergies. Psychiatric/Behavioral: Negative for sleep disturbance. VITAL SIGNS: BP 129/76 Pulse 81 Temp 36.3 C (97.3 F) (Temporal) Ht 5' (1.524 m) Wt 163 lb 3.2 oz (74 kg) SpO2 92% Comment: 2Lp BMI 31.87 kg/m PHYSICAL EXAM: Physical Exam Constitutional: General: She is not in acute distress. Appearance: She is ill-appearing. Cardiovascular: Rate and Rhythm: Normal rate and regular rhythm. Heart sounds: No murmur heard. Pulmonary: Effort: No respiratory distress. Breath sounds: Decreased air movement present. Wheezing and rhonchi present. No rales. Skin: General: Skin is warm and dry. Capillary Refill: Capillary refill takes less than 2 seconds. Neurological: Mental Status: She is alert. Psychiatric: Mood and Affect: Mood normal. Behavior: Behavior normal. DATA REVIEWED: PFT's--04/2023 CXR--11/2023 FINDINGS: The cardiomediastinal silhouette is within normal limits. Known right apical lung nodule measures approximately 1.4 cm. There is lung hyperinflation, flattening of the hemidiaphragms and coarsening of the interstitium. No focal consolidation, pleural effusion or pneumothorax. No acute osseous abnormality is demonstrated. Advanced degenerative changes of the spine and shoulders are seen. Chronic deformities of the right glenohumeral joint are noted. IMPRESSION: No acute cardiopulmonary abnormality identified. COPD changes. Redemonstration of known right apical pulmonary nodule. CT lung screening--05/2023 FINDINGS: Pulmonary nodules: *All nodule measurements are mean axial diameter and saved on lobato images* (6:101) 12 x 9 mm nodule within the lateral right upper lobe is UNCHANGED. No new pulmonary nodules or masses. Lungs: The lungs are clear with no acute infiltrate or effusion. The tracheobronchial tree remains patent.Moderate upper lobe predominant centrilobular emphysematous changes. Mediastinum: Normal heart size with no pericardial effusion. Aorta and pulmonary arteries normal in caliber. No enlarged mediastinal, hilar, or axillary lymph nodes. Thyroid and Esophagus: Normal. Upper Abdomen: Normal Soft tissues and Osseous structures: Severe degenerative changes of the right glenohumeral joint. Multiple healed right-sided rib fractures. IMPRESSION: Unchanged 12 x 9 mm nodule lateral right upper lobe. No new pulmonary nodules or masses. Moderate upper lobe predominant centrilobular emphysematous changes. ASSESSMENT CATEGORY: Lung-RADS Assessment Category 2 - Benign appearance or behavior. Recommend continued annual low-dose screening CT in 12 months. PET/CT--01/27/21 NECK AND CHEST: There is a noncalcified nodule within the lateral aspect of the right upper lobe measuring 1.3 cm in greatest diameter on the low-dose CT images. This nodule demonstrates mild FDG uptake (maximal SUV1.7), less than typically expected for malignancy. No additional FDG avid pulmonary nodules are identified. There are moderate emphysematous changes. No FDG avid lymphadenopathy is seen within the neck or chest. ABDOMEN AND PELVIS: No abnormal FDG accumulation is seen within the abdomen or pelvis. On the low- dose CT images, a right-sided spigelian type hernia is noted containing nondilated loops of small bowel. MUSCULOSKELETAL: Unremarkable. No evidence of osseous metastatic disease. IMPRESSION: Noncalcified nodules in the right upper lobe demonstrates mild FDG accumulation, less than typically expected for malignancy. Routine CT follow-up is recommended to ensure stability. TTE--01/10/24 Left Ventricle: Left ventricle size is normal. Normal wall thickness. Normal left ventricular systolic function. EF by 2D Simpsons Biplane is 72%. Normal wall motion. Elevated left ventricular filling pressure. Right Ventricle: Right ventricle size is normal. Normal systolic function. Aortic Valve: No stenosis. AV mean gradient is 4 mmHg. AV peak gradient is 8 mmHg. LVOT:AV VTI Index is 0.77. LVOT diameter is 2.0 cm. AV area by continuity VTI is 2.3 cm2. Stroke volume index is 46.5 mL/m2. Tricuspid Valve: Mild (1+) regurgitation. Normal hepatic vein systolic flow. Normal RVSP. RVSP is 25 mmHg. Pulmonic Valve: Trace regurgitation. Interatrial Septum: No interatrial shunt visualized on color Doppler. Grade 0 Absence of bubbles. Agitated saline study was negative with and without provocation. CT chest 2024 interpreted by me- moderate emphsyema. Stable nodule, no concerning findings. Findings suggestive of chronic bronchitis ASSESSMENT and PLAN Centrilobular emphysema (CMS/HCC) (HCC) Severe COPD with recurrent exacerbations -moderate to severe changes on CT imaging. PFTs showing severe obstruction with +BD response, hyperinflation, air trapping and mildly reduced gas exchange -Patient is optimized on high dose Trelegy. -Unable to get ensifentrine -not a good valve candidate -not a good transplant candidate given recurrent infectious complications -would avoid daily steroid given IGG def -advised discussion of alternative biologic with facility manager, consider Nucala -significant wheeze component maybe patient has some component of TBM from steroids IgG deficiency -Patient is getting monthly IgG infusions. Following with Dr. Davis in [place]. Records reviewed Chronic respiratory failure with hypoxia (CMS/HCC) (HCC) -Patient should continue to use supplemental O2 to keep pulse ox 88 to 92% Lung nodule -1.5 x 1.2 x 1.2 cm in RUL on CT chest 12/2020, not PET avid on PET CT 01/2021 -nodule stable. Poor candidate for ongoing screening. Personal history of tobacco use, presenting hazards to health -Patient has greater than [id number] history, quit in 2008. CT imaging as above FOLLOW UP: No follow-ups on file. 3-5 months with JL 30 min Filipe Castellon MD Pulmonary & Sleep Medicine Portions of the information within this encounter were entered using an electronic dictation system. Best attempts were made to proofread the information prior to note completion. Despite the review of the information, some errors may remain. If there are questions related to the information contained within the note please contact the signing provider directly. documented in this [facility]05-08-2025 Instructions* Patient Instructions* Jaja Bert - 08/28/2024 10:15 AM EDT YOUR APPOINTMENT TODAY WAS WITH THE [facility], COPD CLINIC, PULMONARY AND SLEEP MEDICINE OFFICE. PLEASE CALL OUR OFFICE AT [phone] for our [facility] location or [phone] for our [place] location, IF YOU HAVE NOT RECEIVED YOUR [...] to make improvements. COVID-19 VACCINATION INFORMATION: PH. [phone] [email or web address] [facility] Central Scheduling [phone] [facility] Sleep Scheduling [phone] documented in this encounterSEast [facility] [id number] Evaluation note* Diagnosis Onset Date Resolution Status Admit Date Coronary artery calcificatio n of [place] artery acute August 26, 2024 12 :48pm Hyperlipidemia acute August 26, 025 12:48pm Chronic hypoxic respiratory failure chronic August 26, 2024 12 :48pm HTN (hypertension) chronic August 12:48pm Hypothyroidism chronic August 26, 2 025 12:48pm Osteoporosis chronic November 11, 025 1:15pm [employer] Work Phone: 1(719) 380-347305-06-2025 Evaluation note* Diagnosis Onset Date Resolution Status Admit Date Coronary artery calcificatio n of [place] artery acute August 26, 2024 12 :48pm Chronic hypoxic respiratory failure chronic August 26, 2024 12 :48pm HTN (hypertension) chronic August 12:48pm Hyperlipidemia chronic August 26, 2 025 12:48pm Hypothyroidism chronic August 26, 2 025 12:48pm HTN (hypertension) chronic October 222024 1:15pm Hyperlipidemia chronic November 11, 2024 1:15pm Hypothyroidism chronic November 11, 2024 1:15pm Osteoporosis chronic November 11, 2 025 1:15pm [employer] [facility] Work Phone: 1(749) 968-757805-01-2025 Telephone encounter Note* Telephone Encounter - Mone Bob MA - 08/21/2024 2:12 PM EDT Spoke with patient and she says she only takes the spirolactone. [id number] Miscellaneous Notes* Telephone Encounter - Mone Bob MA - 08/21/2024 2:12 PM EDT Spoke with patient and she says she only takes the spirolactone. * Telephone Encounter - Prosper Roman DO - 08/20/2024 6:07 PM EDT Call patient and confirm what diuretic is she on. Is She both on Maxide and spironolactone? documented in this encounterSEast [facility] [id number] Telephone encounter Note* Telephone Encounter - Prosper Roman DO - 08/20/2024 6:07 PM EDT Call patient and confirm what diuretic is she on. Is She both on Maxide and spironolactone? [facility] [id number] History of Present illness Narrative* Prosper Roman DO - 08/20/2024 11:30 AM EDT Images from the original note were not included. [facility] - [address] [facility] [address] Dept: [phone] Dept Chief Complaint: Dayana Briggs is an 74 y.o. female here for an annual wellness visit. 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 Current Outpatient Medications Medication Sig Dispense Refill albuterol (2.5 MG/3ML) 0.083% nebulizer solution Take 3 mL (2.5 mg) by nebulization every 4 hours as needed for wheezing or shortness of breath. 75 mL 2 albuterol 108 (90 Base) MCG/ACT inhaler Inhale 2 puffs every 4 hours as needed for shortness of breath. 1 each 2 amLODIPine (Norvasc) 5 MG tablet TAKE 1 TABLET BY MOUTH EVERY DAY 90 tablet 1 amoxicillin-clavulanate (Augmentin) 600-42.9 MG/5ML suspension Take 5 mL by mouth 2 times daily for10 days. 100 mL 0 atorvastatin (Lipitor) 10 MG tablet Take 1 tablet (10 mg) by mouth daily. 90 tablet 3 cholecalciferol (Vitamin D-3) 25 MCG (1000 UT) capsule Take 1 capsule by mouth in the morning and 1capsule before bedtime. Kfrebgwdgox-Gorcsnkpb-Uyyjws (Trelegy Ellipta) 200-62.5-25 MCG/ACT aerosol powder Inhale 1 puff daily. 1 each 5 ipratropium (Atrovent) 0.02 % nebulizer solution INHALE THE CONTENTS OF 1 VIAL VIA NEBULIZER 2 TIMES DAILY ipratropium-albuterol (Duo-Neb) 0.5-2.5 mg/3 mL nebulizer solution Take 3 mL by nebulization 4 times daily as needed for wheezing. 30 mL 2 levothyroxine (Synthroid, Levoxyl) 100 MCG tablet Take 1 tablet (100 mcg) by mouth daily for 360 doses. 90 tablet 3 loratadine (Claritin Allergy Childrens) 5 MG/5ML solution solution Take 10 mL (10 mg) by mouth daily. 300 mL 1 omeprazole (PriLOSEC) [address] capsule Take 1 capsule (20 mg) by mouth daily. 90 capsule 3 Potassium Gluconate 2.5 MEQ tablet Take by mouth. sodium chloride 7 % nebulizer solution nebulizer solution Take 4 mL by nebulization 2 times daily as needed (chest congestion). 360 mL 2 spironolactone (Aldactone) 25 MG tablet Take 1 tablet (25 mg) by mouth daily. 90 tablet 1 triamterene-hydrochlorothiazide (Maxzide-25) 37.5-25 MG tablet Take 1 tablet by mouth daily. zafirlukast (Accolate) 20 MG tablet Take 20 mg by mouth in the morning and 20 mg before bedtime. Current Facility-Administered Medications Medication Dose Route Frequency Provider Last Rate Last Admin albuterol (2.5 MG/3ML) 0.083% nebulizer solution 2.5 mg 2.5 mg Nebulization Once Jazmin Moy PA-C ipratropium (Atrovent) 0.02 % nebulizer solution 0.5 mg 0.5 mg Nebulization Once Jazmin Moy PA-C Also reviewed during this visit: Med Hx Surg Hx Fam Hx The following health maintenance schedule was reviewed with the patient and provided in printed form in the after visit summary: Health Maintenance Topic Date Due Hepatitis C Screening Never done Diabetes Screening Never done RSV Immunization for Adults (1 - Risk 60-74 years 1-dose series) Never done Bone Density Scan 12/08/2022 COVID-19 Vaccine ( season) 2023 TSH Level 03/23/2024 Medicare Advantage Annual Wellness Visit Never done Mammogram 03/05/2025 Depression Screening 08/20/2025 DTaP/Tdap/Td Vaccines (2 - Td or Tdap) 12/08/2026 Lipid Panel 03/23/2028 Colorectal Cancer Screening 11/05/2028 Influenza Vaccine Completed Pneumococcal Vaccine: 50+ Years Completed Zoster Vaccines Completed RSV Immunization under 20 Months Aged Out HIB Vaccines Aged Out Hepatitis B Vaccines Aged Out IPV Vaccines Aged Out Hepatitis A Vaccines Aged Out Meningococcal Vaccine Aged Out Rotavirus Vaccines Aged Out HPV Vaccines Aged Out Lung Cancer Screening Discontinued List of current healthcare providers: Patient Care Team: Prosper Roman DO as PCP - General (Family Medicine) Joyce Chino, RN as Education Program Manager (Technical Administrator Manager) Orders Placed This Encounter Procedures Lipid panel Standing Status: Future Number of Occurrences: 1 Standing Expiration Date: 08/20/2025 TSH Standing Status: Future Number of Occurrences: 1 Standing Expiration Date: 08/20/2025 Review of Systems ex-smoker for many years with history of COPD, chronic immunoglobulin deficiency,hypertension and hyperlipidemia presents for annual wellness exam. Having difficulty with recurrentinfections requiring multiple prednisone and antibiotic. Will be seeing florist's decorator and road design draftsperson soon. No night sweats fevers or chills. No change in phlegm lately. Denies chest pain or pleurisy. Eatingand voiding well. No bowel changes. No breast complaints. Mammogram and colonoscopies are up-to-date. Having some stress with her daughter who had a heart attack in her grandchildren living with her but she enjoys it. Physical Exam comfortable off room air. No JVD adenopathy or thyroid lesions. No carotid bruits. Normal eardrums and oropharynx. Heart is regular without ectopy or murmurs. Lungs have crackles in both bases and mild expiratory wheezes that clear with cough. Abdomen obese nontender without pain hepatosplenomegaly or masses. No bruits. EXTR are pink with trace pretibial edema. Posterior tibial pulses are adequate Objective : BP 112/72 Pulse 83 Temp 36.6 C (97.9 F) (Temporal) Ht 5' (1.524 m) Wt 162 lb 12.8 oz (73.8 kg) SpO2 95% BMI 31.79 kg/m No results found. Subjective : Health Risk Assessment: General: General In general, how would you say your health is?: (!) (Patient-Rptd) (P) Fair In the past 7 days, have you experienced any of the following: New or Increased Pain, New or Increased Fatigue, Loneliness, Social Isolation, Stress or Anger?: (Patient-Rptd) (P) No Do you get the social and emotional suppport you need?: (Patient-Rptd) (P) Yes Interventions: Defers intervention Health Habits/Nutrition: Health Habits / Nutrition On average, how many days per week do you engage in moderate to strenous exercise (like a brisk walk)?: (!) (Patient-Rptd) (P) 0 days On average, how man minutes do you engage in exercise at this level?: (Patient- Rptd) (P) 60 min Have you lost any weight without trying in the past 3 months? : (Patient-Rptd) (P) No Have you seen the dentist within the past year?: (!) (Patient-Rptd) (P) No Interventions: Wears dentures Hearing/ Vision: Hearing / Vision Do you or your family notice any trouble with your hearing that hasn't been managed with hearing aids?: (Patient-Rptd) (P) No Do you have difficulty driving, watching TV, or doing any of your daily activities because of your eyesight?: (Patient-Rptd) (P) No Have you had an eye exam within the past year?: (!) (Patient-Rptd) (P) No No results found. Interventions: Vision concerns: Will get hearing and vision exam Safety: Safety Do you have a working smoke detector?: (Patient-Rptd) (P) Yes Do you have any tripping hazards - loose or unsecured carpets or rugs?: (Patient-Rptd) (P) No Do you have any tripping hazards - clutter in doorways, halls, or stairs?: (Patient-Rptd) (P) No Do you have either shower bars, grab bars, non-slip mats or non-slip surfaces in your shower or bathtub? : (Patient-Rptd) (P) Yes Do all your stairways have a railing or banister? : (Patient-Rptd) (P) Yes Do you fasten your seatbelt when you are in a car?: (Patient-Rptd) (P) Yes ADL: ADL In the past 7 days, did you need help from others to perform any of the following everyday activities: Eating, dressing, grooming,bathing, toileting, or walking / balance? : (Patient-Rptd) (P) No In the past 7 days, did you need help from others to take care of any of the following: laundry, housekeeping, banking / finances,shopping, telephone use, food preparation, transportation, or taking medications? : (Patient-Rptd) (P) No Living Will: Living Will Do you have a living will?: (Patient-Rptd) (P) No Interventions: Patient declines ACP discussion / assistance Cognitive: Cognitive Screening: Mini-Cog Clock Drawing Test (CDT): 2 Words Recalled: 3 Total Score: 5 Total Score Interpretation: Normal Mini-Cog Hypertension: No Fall Risk: Fall Risk One or more falls in the last year:: (Patient-Rptd) (P) Yes Advised to use a cane or walker to get around safely:: (Patient-Rptd) (P) No Feels unsteady when walking:: (Patient-Rptd) (P) No Steadies self on furniture while walking at home:: (Patient-Rptd) (P) No Worried about falling:: (Patient-Rptd) (P) No Interventions: Defers intervention Depression Screening: Over the past 2 weeks, how often have you been bothered by any of the following problems? Little interest or pleasure in doing things: (Patient-Rptd) Not at all Feeling down, depressed, or hopeless: (Patient-Rptd) Not at all Patient Health Questionnaire-2 Score: (Patient-Rptd) 0 Interventions: Patient declines any further evaluation / treatment for this issue Tobacco Use: Social History Tobacco Use Smoking Status Former Current packs/day: 0.00 Average packs/day: 2.0 packs/day for 53.2 years (106.4 ttl pk-yrs) Types: Cigarettes Start date: 09[birth year]14/1953 Quit date: 12/01/2008 Years since quittin.7 Smokeless Tobacco Never Alcohol Use: Social Drivers of Health: SDOH risk assessment performed and documented today by members of the health care team. A total time of 5-10 minutes was spent obtaining information from the patient and discussing options to addressthe patient's social risk factors and unmet needs. Social Drivers of Health with Concerns Concerns Present Tobacco Use: Medium Risk (08/12/2024) Physical Activity: Inactive (07/09/2024) Social Connections: Moderately Isolated (07/09/2024) 1. Acquired hypothyroidism Stable, continue Levothyroid - TSH; Future - TSH 2. 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 Severe persistent asthma, uncomplicated Stable see above 4. Primary hypertension Stable, continue amlodipine, Aldactone 5. Immunoglobulin deficiency (HCC) Stable, continue IgG infusions 6. Mixed hyperlipidemia Stable, continue atorvastatin will check lab - Lipid panel; Future - Lipid panel 7. Encounter for subsequent annual wellness visit (AWV) in Medicare patient (Primary) Vitamin D, calcium walk as tolerated documented in this [facility]04-30-2025 Instructions* Patient Instructions* Prosper Roman DO - 08/20/2024 11:30 AM EDT Fasting lab in the future Personalized Preventative Plan for Dayana Briggs - 08/20/2024 Medicare offers a range of preventative health benefits. Some of the tests and screenings are paid in full while others may be subject to a deductible, co- insurance, and / or copay. Some of these benefits include a comprehensive review of your medical history including lifestyle, illnesses that mayrun in your family, and various assessments and screenings as appropriate. After reviewing your medical record and screening and assessments performed today, your provider may have ordered immunizations, labs, imaging, and / or referrals for you. A list of these orders (if applicable) as well as your Preventative Care list are included within your After Visit Summary for your review. Other Preventative Recommendations: A preventive eye exam by an him specialist is recommended every 1-2 years to screen for glaucoma, cataracts, macular degeneration, and other eye disorders. A preventive dental visit is recommended every 6 months. Try to get at least 150 minutes of exercise per week or 10,000 steps per day on a pedometer. You need 1200-1500mg of calcium and [id number] international units of vitamin D per day. It is possible to meet your calcium requirement with diet alone, but a vitamin D supplement is usually necessary to meet this goal. When exposed to the sun, use a sunscreen that protects against both UVA and UVB radiation with an SPF of 30 or greater. Reapply every 2-3 hours or after sweating, drying off with a towel, or swimming. Always wear a seat belt when traveling in a car. Always wear a helmet when riding a bicycle or a motorcycle documented in this [facility]04-25-2025 Telephone encounter Note* Telephone Encounter - Radha Perkins LPN - 08/15/2024 7:47 AM EDT Recent Visits Date Type Provider Dept 08/12/24 Office Visit Jazmin Moy PA-C [facility] 07/30/24 Office Visit ZEHRA Sutton [facility] Visit Prosper Roman DO [facility] 10/24/23 Office Visit Jazmin Moy PA-C [facility] 09/19/23 Office Visit Jazmin Moy PA-C [facility] 08/21/23 Office Visit Prosper Roman DO [facility] Showing recent visits within past 365 days and meeting all other requirements Future Appointments Date Type Provider Dept 08/20/24 Appointment Prosper Roman DO [facility] Showing future appointments within next 90 days and meeting all other requirements Requested Prescriptions Pending Prescriptions Disp Refills amLODIPine (Norvasc) 5 MG tablet [Pharmacy Med Name: AMLODIPINE BESYLATE 5 MG TAB] 90 tablet 1 Sig: TAKE 1 TABLET BY MOUTH EVERY DAY Provider: Prosper Roman DO Verified pharmacy: yes Verified day(s) supplied: yes Verified refill(s) needed (previous prescription showing no refills in chart): Yes Have you received any controlled medications from any other provider? N/A Overdue for visit: No If yes - patient scheduled? Yes Most recent labs completed in chart? Yes Hypertension: Lab Results Component Value Date NA 139 12/19/2021 K 4.2 12/19/2021 EGFR 66 05/19/2024 BUN 18 05/19/2024 CREATININE 0.92 05/19/2024 [id number] Miscellaneous Notes* Telephone Encounter - Radha Perkins LPN - 08/15/2024 7:47 AM EDT Recent Visits Date Type Provider Dept 08/12/24 Office Visit Jazmin Moy PA-C [facility] 07/30/24 Office Visit Jazmin Moy PA-C [facility] 05/19/24 Office Visit Jazmin Moy PA-C [facility] 02/20/24 Office Visit Prosper Roman DO [facility] 10/24/23 Office Visit Jazmin Moy PA-C [facility] 09/19/23 Office Visit Jazmin Moy PA-C [facility] 08/21/23 Office Visit Prosper Roman DO [facility] Showing recent visits within past 365 days and meeting all other requirements Future Appointments Date Type Provider Dept 08/20/24 Appointment Prosper Roman DO [facility] Showing future appointments within next 90 days and meeting all other requirements Requested Prescriptions Pending Prescriptions Disp Refills amLODIPine (Norvasc) 5 MG tablet [Pharmacy Med Name: AMLODIPINE BESYLATE 5 MG TAB] 90 tablet 1 Sig: TAKE 1 TABLET BY MOUTH EVERY DAY Provider: Prosper Roman DO Verified pharmacy: yes Verified day(s) supplied: yes Verified refill(s) needed (previous prescription showing no refills in chart): Yes Have you received any controlled medications from any other provider? N/A Overdue for visit: No If yes - patient scheduled? Yes Most recent labs completed in chart? Yes Hypertension: Lab Results Component Value Date NA 139 12/19/2021 K 4.2 12/19/2021 EGFR 66 05/19/2024 BUN 18 05/19/2024 CREATININE 0.92 05/19/2024 documented in this [facility]04-22-2025 History of Present illness Narrative* Jazmin Moy PA-C - 08/12/2024 11:20 AM EDT Images from the original note were not included. [facility] - [address] [facility] [address] Dept: [phone] Dept Loc: [phone] Visit type: Established Patient Reason for Visit: Cough (Green/yellow mucus), Nasal Congestion (Drainage ), and Wheezing Assessment and Plan 1. Chronic frontal sinusitis - amoxicillin-clavulanate (Augmentin) 600-42.9 MG/5ML suspension; Take 5 mL by mouth 2 times daily for 10 days., Starting Sun08/12/2024, Until Sun08/22/2024, Normal - loratadine (Claritin Allergy Childrens) 5 MG/5ML solution solution; Take 10 mL (10 mg) by mouth daily., Starting Sun08/12/2024, Normal Lengthy conversation with the patient and she has ongoing issue with chronic infections history of chronic sinusitis she states she was treated for her sinusitis and infection with doxycycline 5 weeks ago and states it feels like never really truly got better and she has been still dealing with a great deal of sinus drainage and discharge blowing out of a lot of greenish-yellowish rhinitis. And feeling like she has a lot of pressure that is developing in the bridge of her nose and up into her frontal sinuses. Did discuss my concerns of having reactions to the medications. She states she has an upset stomach with the penicillins and she is agreeable to try Augmentin again but would prefer the liquid form as she has a difficult time with larger pills. I did discuss with her that there is a high likelihood that this is all viral versus seasonal allergy patient states that she is insisting that it seems to be much more aggressive and worsen that at this point, I did encourage her to continue using the Claritin. No follow-ups on file. Subjective HPI 74-year-old female well-known to the office for longstanding history of chronic respiratory issues COPD with frequent exacerbations. Contacted the call center today for same-day evaluation for ongoing issues with her sinus and congestion. This is her third visit I 5 weeks and she has been on 2 rounds of antibiotics over the past month. Patient reports that she has a great deal of ongoing sinus drainage and discharge chronic in natureis worse over the last several weeks. Yellowish- greenish rhinitis and discharge with a great deal of sinus pressure and fullness in the frontal sinuses. She does report that her cough congestion and shortness of breath symptoms all seem to be improving. Review of Systems Constitutional: Negative for chills and fever. HENT: Positive for congestion, postnasal drip, rhinorrhea, sinus pressure and sinus pain. Respiratory: Negative for cough and shortness of breath. Cardiovascular: Negative for chest pain. Gastrointestinal: Negative for diarrhea, nausea and vomiting. Musculoskeletal: Negative for myalgias. All other systems reviewed and are negative. Allergies Allergen Reactions Lisinopril Shortness of breath Cough and wheezing Other Other Envirmental allergies trees pollen rag weed, douglass Ampicillin Other reaction(s): Other, stomach issues Aspirin Hives Other reaction(s): U Other reaction(s): U Augmentin [Amoxicillin-Pot Clavulanate] Codeine Other reaction(s): GI Upset sleepy, dizzy Erythromycin unknown reaction Levaquin [Levofloxacin] Other Joint pain (ankles) Misc. Sulfonamide Containing Compounds Penicillins Other reaction(s): Other (See Comments) Upset stomach Other reaction(s): Other Other reaction(s): U Other reaction(s): Other Other reaction(s): Other, stomach issues Other reaction(s): stomach issues, U unknown reaction Sulfa Antibiotics Cephalexin Hives and Rash Other reaction(s): Hives Other reaction(s): U Other reaction(s): Hives Other reaction(s): Hives Other reaction(s): Hives, U Current Outpatient Medications Medication Sig Dispense Refill albuterol (2.5 MG/3ML) 0.083% nebulizer solution Take 3 mL (2.5 mg) by nebulization every 4 hours as needed for wheezing or shortness of breath. 75 mL 2 albuterol 108 (90 Base) MCG/ACT inhaler Inhale 2 puffs every 4 hours as needed for shortness of breath. 1 each 2 amLODIPine (Norvasc) 5 MG tablet Take 1 tablet (5 mg) by mouth daily. 90 tablet 1 atorvastatin (Lipitor) 10 MG tablet Take 1 tablet (10 mg) by mouth daily. 90 tablet 3 cholecalciferol (Vitamin D-3) 25 MCG (1000 UT) capsule Take 1 capsule by mouth in the morning and 1capsule before bedtime. fluconazole (Diflucan) 100 MG tablet Take 1 tablet (100 mg) by mouth daily for 7 doses. 7 tablet 0 Zjyadpdsyje-Zfotaitto-Nzljzi (Trelegy Ellipta) 200-62.5-25 MCG/ACT aerosol powder Inhale 1 puff daily. 1 each 5 ipratropium (Atrovent) 0.02 % nebulizer solution INHALE THE CONTENTS OF 1 VIAL VIA NEBULIZER 2 TIMES DAILY ipratropium-albuterol (Duo-Neb) 0.5-2.5 mg/3 mL nebulizer solution Take 3 mL by nebulization 4 times daily as needed for wheezing. 30 mL 2 levothyroxine (Synthroid, Levoxyl) 100 MCG tablet Take 1 tablet (100 mcg) by mouth daily for 360 doses. 90 tablet 3 omeprazole (PriLOSEC) [address] capsule Take 1 capsule (20 mg) by mouth daily. 90 capsule 3 Potassium Gluconate 2.5 MEQ tablet Take by mouth. sodium chloride 7 % nebulizer solution nebulizer solution Take 4 mL by nebulization 2 times daily as needed (chest congestion). 360 mL 2 spironolactone (Aldactone) 25 MG tablet Take 1 tablet (25 mg) by mouth daily. 90 tablet 1 triamterene-hydrochlorothiazide (Maxzide-25) 37.5-25 MG tablet Take 1 tablet by mouth daily. zafirlukast (Accolate) 20 MG tablet Take 20 mg by mouth in the morning and 20 mg before bedtime. amoxicillin-clavulanate (Augmentin) 600-42.9 MG/5ML suspension Take 5 mL by mouth 2 times daily for10 days. 100 mL 0 loratadine (Claritin Allergy Childrens) 5 MG/5ML solution solution Take 10 mL (10 mg) by mouth daily. 300 mL 1 Current Facility-Administered Medications Medication Dose Route Frequency Provider Last Rate Last Admin albuterol (2.5 MG/3ML) 0.083% nebulizer solution 2.5 mg 2.5 mg Nebulization Once Jazmin Moy PA-C ipratropium (Atrovent) 0.02 % nebulizer solution 0.5 mg 0.5 mg Nebulization Once Jazmin Moy PA-C Past Medical History: Diagnosis Date Asthma 2006 Breast cancer screening 02/2024 COPD (chronic obstructive pulmonary disease) (HCC) 2014 Home O2 since 2014 Ex-smoker 2008 GERD (gastroesophageal reflux disease) H/O colonoscopy 2018 History of idiopathic thrombocytopenic purpura 2005 resolved History of shingles 2020 left CN V Hypertension 2004 Hypothyroidism IBS (irritable bowel syndrome) 2000 per [facility] Immunoglobulin deficiency (HCC) 2007 [place] Nodule of upper lobe of right lung no change per 2023 LDCT Osteoporosis [address] Field Renal stones Social History Tobacco Use Smoking status: Former Current packs/day: 0.00 Average packs/day: 2.0 packs/day for 53.2 years (106.4 ttl pk-yrs) Types: Cigarettes Start date: 09/14/1955 Quit date: 12/01/2008 Years since quittin.7 Smokeless tobacco: Never Substance Use Topics Alcohol use: No Alcohol/week: 0.0 standard drinks of alcohol Past Surgical History: Procedure Laterality Date APPENDECTOMY BREAST BIOPSY Right 2010 benign BREAST CYST ASPIRATION Left 2007 benign CATARACT EXTRACTION W/ INTRAOCULAR LENS IMPLANT Bilateral CHOLECYSTECTOMY 2013 COLONOSCOPY 10/2018 Dr. Argueta- due 2028 COLONOSCOPY 2008 [facility] DENTAL SURGERY dentures HEMORRHOID SURGERY 1994 MENISCECTOMY Left 2016 [facility] PARTIAL HYSTERECTOMY 1994 DUB- Ovaries intact SKIN BIOPSY from left arm, under right breast, and forehead. All negative for CA TONSILLECTOMY (HISTORICAL) Family History Problem Relation Name Age of Onset High Blood Pressure Mother Phani alive age 98 Rheum arthritis Father Heart disease Father age 59 Other ([id number]) Sister adrenal issues Skin cancer Sister COPD Brother Josh age 65, smoker Lung cancer Brother Josh 70 Prostate cancer Brother 60 No Known Problems Brother No Known Problems Brother Breast cancer Paternal Cousin 35 Objective BP 122/80 Pulse 83 Temp 36.2 C (97.2 F) (Temporal) Ht 5' (1.524 m) Wt 161 lb (73 kg) EiH936% BMI 31.44 kg/m Physical Exam Vitals reviewed. Constitutional: General: She is not in acute distress. Appearance: Normal appearance. She is not ill-appearing or toxic-appearing. HENT: Nose: Congestion present. No rhinorrhea. Mouth/Throat: Pharynx: No oropharyngeal exudate or posterior oropharyngeal [...] and Summarized Labs: Imaging/Testing: Jazmin Moy PA-C 08/12/2024 Please note that portions of this note may have been completed with voice recognition software. Documentation reviewed prior to signing but minor errors in billiard table repairer may have occurred. documented in this [facility]04-22-2025 Telephone encounter Note* Telephone Encounter - Mone Bob MA - 08/12/2024 8:29 AM EDT Triage message reviewed with clinical staff. Patient appointment confirmed. PCP will assess at appointment visit. [facility] [id number] Miscellaneous Notes* Telephone Encounter - Mone Bob MA - 08/12/2024 8:29 AM EDT Triage message reviewed with clinical staff. Patient appointment confirmed. PCP will assess at appointment visit. * Telephone Encounter - Cherelle Field RN - 08/12/2024 7:44 AM EDT S: Patient spoke with [facility] nurse regarding nasal congestion. B: Onset of symptoms for a week. [facility] 07/30/24. A: Nasal congestion after ATB completed for chest congestion, head pressure, drainage, thick green yellow draiange. Using Mucinex. R: Appointment scheduled, address given to the patient, instructed to bring photo ID, insurance info and medication list to the appointment. Patient understands care advice. No further needs at this time. Patient instructed to call back with new or worsening symptoms. Reason for Disposition [1] Taking antibiotic > 7 days AND [2] nasal discharge not improved Protocols used: Sinus Infection on Antibiotic Follow-up [id number] documented in this encounterSEast [facility] [id number] Telephone encounter Note* Telephone Encounter - Cherelle Field RN - 08/12/2024 7:44 AM EDT S: Patient spoke with [facility] nurse regarding nasal congestion. B: Onset of symptoms for a week. [facility] 07/30/24. A: Nasal congestion after ATB completed for chest congestion, head pressure, drainage, thick green yellow draiange. Using Mucinex. R: Appointment scheduled, address given to the patient, instructed to bring photo ID, insurance info and medication list to the appointment. Patient understands care advice. No further needs at this time. Patient instructed to call back with new or worsening symptoms. Reason for Disposition [1] Taking antibiotic > 7 days AND [2] nasal discharge not improved Protocols used: Sinus Infection on Antibiotic Follow-up [id number] [facility] [id number] History of Present illness Narrative* Jazmin Moy PA-C - 07/30/2024 10:40 AM EDT Images from the original note were not included. [facility] [address] [facility] [id number] Dept: [phone] Dept Loc: [phone] Visit type: Established Patient Reason for Visit: COPD (flare) Assessment and Plan 1. COPD exacerbation (HCC) - clindamycin (Cleocin) 300 MG capsule; Take 1 capsule (300 mg) by mouth 2 times daily for 7 days.,Starting Sun07/30/2024, Until Sun08/06/2024, Normal - predniSONE (Deltasone) 10 MG tablet; Multiple Dosages:Starting Sun07/30/2024, Until 08/02/2024 at 2359, THEN Starting 08/03/2024, Until Sun08/06/2024 at 2359, THEN Starting Lana 08/07/2024, Until 08/10/2024 at 2359, THEN Starting 08/11/2024, Until 08/12/2024 at 2359, THEN Starting Wed08/13/2024, Until Lana 08/14/2024 at 2359Take 5 tablets (50 mg) by mouth daily for 4 days, THEN 4 tablets (40 mg) daily for 4 days, THEN 3 tablets (30 mg) daily for 4 days, THEN 2 tablets (20 mg) daily for 2 days, THEN 1 tablet (10 mg) daily for 2 days., Normal Patient has ongoing issues with chronic COPD that is poorly controlled he says she has seen pulmonology in the past has breathing treatments at home, then she really has not used them today states she does not feel like they are much benefit she is maxed out on her medications and nothing seems to be helping. She states when she gets these infusions periodically she ends up needing antibiotics and it causes flareups of her COPD although she does readily admit she has a daughter at home that shelives with who smokes and he also has multiple individuals at home are sick recently as well which are passing the illnesses to her. She does have a history of brittle COPD which is easily exacerbated she is on continuous oxygen that she usually will take out when she is resting. But usually needs it with any type of exertion. No follow-ups on file. Subjective HPI 74-year-old female well-known to the office for longstanding history of chronic respiratory issues COPD with frequent exacerbations. Contacted the call center today for same-day evaluation for ongoing issues with her COPD and exacerbation. Patient has an ongoing prescription of prednisone at home for symptoms started approximate 5 days ago she did take prednisone yesterday pulse ox is remaining at 98% on her continuous 2.5 L. Patient was just seen 3 weeks ago with COPD exacerbation and sinusitis and was placed on doxycycline and prednisone at that time. Patient was also subsequently been seen by myself back in April and was placed on antibiotics and a flareup of COPD then. Patient is followed up with pulmonology for ongoing exacerbations. Took 50mg prednisone, Still getting infusions, and feels like when she gets infusion she gets sick and needs meds Was sick last few weeks with vomiting and diarrhea. And then grandson was sick recently with URI symptoms. Review of Systems Constitutional: Negative for chills and fever. HENT: Negative for congestion and sore throat. Respiratory: Positive for cough, shortness of breath and wheezing. Cardiovascular: Negative for chest pain. Gastrointestinal: Positive [...] Hives Other reaction(s): U Other reaction(s): U Augmentin [Amoxicillin-Pot Clavulanate] Codeine Other reaction(s): GI Upset sleepy, dizzy Erythromycin unknown reaction Levaquin [Levofloxacin] Other Joint pain (ankles) Misc. Sulfonamide Containing Compounds Penicillins Other reaction(s): Other (See Comments) Upset stomach Other reaction(s): Other Other reaction(s): U Other reaction(s): Other Other reaction(s): Other, stomach issues Other reaction(s): stomach issues, U unknown reaction Sulfa Antibiotics Cephalexin Hives and Rash Other reaction(s): Hives Other reaction(s): U Other reaction(s): Hives Other reaction(s): Hives Other reaction(s): Hives, U Current Outpatient Medications Medication Sig Dispense Refill albuterol (2.5 MG/3ML) 0.083% nebulizer solution Take 3 mL (2.5 mg) by nebulization every 4 hours as needed for wheezing or shortness of breath. 75 mL 2 albuterol 108 (90 Base) MCG/ACT inhaler Inhale 2 puffs every 4 hours as needed for shortness of breath. 1 each 2 amLODIPine (Norvasc) 5 MG tablet Take 1 tablet (5 mg) by mouth daily. 90 tablet 1 atorvastatin (Lipitor) 10 MG tablet Take 1 tablet (10 mg) by mouth daily. 90 tablet 3 cholecalciferol (Vitamin D-3) 25 MCG (1000 UT) capsule Take 1 capsule by mouth in the morning and 1capsule before bedtime. Radibdgghks-Idlfgpcwk-Nmunmz (Trelegy Ellipta) 200-62.5-25 MCG/ACT aerosol powder Inhale 1 puff daily. 1 each 5 ipratropium (Atrovent) 0.02 % nebulizer solution INHALE THE CONTENTS OF 1 VIAL VIA NEBULIZER 2 TIMES DAILY ipratropium-albuterol (Duo-Neb) 0.5-2.5 mg/3 mL nebulizer solution Take 3 mL by nebulization 4 times daily as needed for wheezing. 30 mL 2 levothyroxine (Synthroid, Levoxyl) 100 MCG tablet Take 1 tablet (100 mcg) by mouth daily for 360 doses. 90 tablet 3 omeprazole (PriLOSEC) [address] capsule Take 1 capsule (20 mg) by mouth daily. 90 capsule 3 Potassium Gluconate 2.5 MEQ tablet Take by mouth. sodium chloride 7 % nebulizer solution nebulizer solution Take 4 mL by nebulization 2 times daily as needed (chest congestion). 360 mL 2 spironolactone (Aldactone) 25 MG tablet Take 1 tablet (25 mg) by mouth daily. 90 tablet 1 zafirlukast (Accolate) 20 MG tablet Take 20 mg by mouth in the morning and 20 mg before bedtime. clindamycin (Cleocin) 300 MG capsule Take 1 capsule (300 mg) by mouth 2 times daily for 7 days. 14 capsule 0 predniSONE (Deltasone) 10 MG tablet Take 5 tablets (50 mg) by mouth daily for 4 days, THEN 4 tablets (40 mg) daily for 4 days, THEN 3 tablets (30 mg) daily for 4 days, THEN 2 tablets (20 mg) daily for 2 days, THEN 1 tablet (10 mg) daily for 2 days. 54 tablet 0 tezepelumab-ekko (Tezspire) 210 MG/1.91ML solution auto-injector autoinjector pen Inject 1 Pen (210mg) under the skin every 28 (twenty-eight) days. (Patient not taking: Reported on 07/30/2024) 1 Pen 11 Current Facility-Administered Medications Medication Dose Route Frequency Provider Last Rate Last Admin albuterol (2.5 MG/3ML) 0.083% nebulizer solution 2.5 mg 2.5 mg Nebulization Once Jazmin Moy PA-C ipratropium (Atrovent) 0.02 % nebulizer solution 0.5 mg 0.5 mg Nebulization Once Jazmin Moy PA-C Past Medical History: Diagnosis Date Asthma 2006 Breast cancer screening 02/2024 COPD (chronic obstructive pulmonary disease) (HCC) 2014 Home O2 since 2014 Ex-smoker 2008 GERD (gastroesophageal reflux disease) H/O colonoscopy 2019 due 2028 History of idiopathic thrombocytopenic purpura 2005 resolved History of shingles 2020 left CN V Hypertension 2004 Hypothyroidism IBS (irritable bowel syndrome) 2000 per [facility] Immunoglobulin deficiency (HCC) 2007 monthly IVIG infusion per Dr. Davis [place], [place] Nodule of upper lobe of right lung no change per 2023 LDCT Osteoporosis 2020 Recl[address] infusion per Dr Field Renal stones Social History Tobacco Use Smoking status: Former Current packs/day: 0.00 Average packs/day: 2.0 packs/day for 53.2 years (106.4 ttl pk-yrs) Types: Cigarettes Start date: 09/14/1955 Quit date: 12/01/2008 Years since quittin.6 Smokeless tobacco: Never Substance Use Topics Alcohol use: No Alcohol/week: 0.0 standard drinks of alcohol Past Surgical History: Procedure Laterality Date APPENDECTOMY BREAST BIOPSY Right 2010 benign BREAST CYST ASPIRATION Left 2007 benign CATARACT EXTRACTION W/ INTRAOCULAR LENS IMPLANT Bilateral CHOLECYSTECTOMY 2013 COLONOSCOPY 10/2018 Dr. Argueta- due 2028 COLONOSCOPY 2008 [facility] DENTAL SURGERY dentures HEMORRHOID SURGERY 1994 MENISCECTOMY Left 2016 [facility] PARTIAL HYSTERECTOMY 1994 DUB- Ovaries intact SKIN BIOPSY from left arm, under right breast, and forehead. All negative for CA TONSILLECTOMY (HISTORICAL) Family History Problem Relation Name Age of Onset High Blood Pressure Mother Crome alive age 98 Rheum arthritis Father Heart disease Father age 59 Other ([address]) Sister adrenal issues Skin cancer Sister COPD Brother Josh age 65, smoker Lung cancer Brother Josh 70 Prostate cancer Brother 60 No Known Problems Brother No Known Problems Brother Breast cancer Paternal Cousin 35 Objective BP 130/70 Pulse 86 Temp 36.2 C (97.2 F) (Temporal) Ht 5' (1.524 m) Wt 159 lb 3.2 oz (72.2 kg) SpO2 96% BMI 31.09 kg/m Physical Exam Vitals reviewed. Constitutional: General: [...] respiratory distress. Breath sounds: Wheezing present. Abdominal: General: Bowel sounds are normal. There is no distension. Palpations: Abdomen is soft. Tenderness: There is no abdominal tenderness. There is no guarding. Musculoskeletal: Cervical back: Normal range of motion and neck supple. No rigidity. Lymphadenopathy: Cervical: No cervical adenopathy. Skin: General: Skin is warm and dry. Coloration: Skin is not jaundiced or pale. Neurological: Mental Status: She is alert. Psychiatric: Mood and Affect: Mood normal. Data Reviewed and Summarized Labs: Imaging/Testing: Jazmin Moy PA-C 07/30/2024 Please note that portions of this note may have been completed with voice recognition software. Documentation reviewed prior to signing but minor errors in billiard table repairer may have occurred. documented in this [address]09-2025 Miscellaneous Notes* Addendum Note - Jazmin Moy PA-C - 07/30/2024 10:40 AM EDTAddended by: JAZMIN MOY on: 07/30/2024 12:00 PM Modules accepted: Level of Service documented in this [address]09-2025 Note* Addendum Note - Jazmin Moy PA-C - 07/30/2024 10:40 AM EDTAddended by: JAZMIN MOY on: 07/30/2024 12:00 PM Modules accepted: Level of Service [place] [id number] Note* Addendum Note - Jazmin Moy PA-C - 07/30/2024 10:40 AM EDTAddended by: JAZMIN MOY on: 07/30/2024 12:00 PM Modules accepted: Level of Service [place] [id number] Telephone encounter Note* Telephone Encounter - Joyce Poole RN - 07/30/2024 7:41 AM EDT S: Patient spoke with [facility] nurse regarding COPD flare B: Onset of symptoms/concern started 5 days ago A: Patient states she started prednisone yesterday that she had spare at home and she was not getting any better so started it. Oxygen is 2.5 and pulse ox is 98%. Wheezing really bad. Sputum is hard to get up right now and is change in color and is greenish yellow right now. Denies any COVID contacts and has not tested. Denies any fevers. R: Appointment scheduled for today at 10:40am with Jonh Moy. Insurance verified. Patient given care advice per protocol. Patient understands care advice. No further needs at this time. Patient instructed to call back with new or worsening symptoms. Reason for Disposition Change in color of sputum (e.g., from white to yellow-green sputum) Protocols used: COUGH - [id number] [facility] [id number] Miscellaneous Notes* Telephone Encounter - Joyce Poole RN - 07/30/2024 7:41 AM EDT S: Patient spoke with [facility] nurse regarding COPD flare B: Onset of symptoms/concern started 5 days ago A: Patient states she started prednisone yesterday that she had spare at home and she was not getting any better so started it. Oxygen is 2.5 and pulse ox is 98%. Wheezing really bad. Sputum is hard to get up right now and is change in color and is greenish yellow right now. Denies any COVID contacts and has not tested. Denies any fevers. R: Appointment scheduled for today at 10:40am with Jonh Moy. Insurance verified. Patient given care advice per protocol. Patient understands care advice. No further needs at this time. Patient instructed to call back with new or worsening symptoms. Reason for Disposition Change in color of sputum (e.g., from white to yellow-green sputum) Protocols used: COUGH - [id number] documented in this [facility]04-04-[address] Mancilla pended for dx and doctor's signatureSCaro [facility]04-04-2025 Telephone encounter Note* Telephone Encounter - Denise Lindquist - 07/25/2024 12:55 PM EDT Referral to Dr Mancilla pended for dx and doctor's signature [facility] [id number] Miscellaneous Notes* Telephone Encounter - Denise Lindquist - 07/25/2024 12:55 PM EDT Referral to Dr Mancilla pended for dx and doctor's signature * Telephone Encounter - Kathe Avalos - 07/25/2024 7:23 AM EDT Message released to patient as written. Yes If they are alluding to the coronary calcifications found on her CT scans that can be very nonspecific finding in a previous smoker, but would need follow-up. Appointment to discuss options for workup with me or cardiology referral to Dr. Mancilla if she prefers Patient's further questions if applicable: Patient would like a referral to Dr. Mancilla. Dr. Mancilla phone number, . Please Advise. Were all questions from office addressed or relayed to the patient from encounter: Yes * Telephone Encounter - Mone Bob MA - 07/23/2024 9:18 AM EDT Left message for patient to return call to the office. * Telephone Encounter - Stephanie Cordero LPN - 07/22/2024 1:39 PM EDT last seen * Telephone Encounter - Antony Guillen - 07/22/2024 11:53 AM EDT Name of caller: Dayana Contact phone number: [phone] Relationship to Patient: patient Provider: Dr. Roman [facility]: [facility] Chief Complaint/Reason for Call: Patient requesting a referral for cardiology. Patient states at her infusion appointment yesterday 07/21/24 was told she should should make an appointment with a hotel front desk agent due to her CT scan results. Patient is requesting referral for Dr. Filipe Mancilla at [facility]. Patient did not have fax number. Please advise. Best time of day caller can be reached: any Patient advised that office/PCP has 24-48 business hours to return their call: Yes documented in this encounterSEast [facility] [id number] Telephone encounter Note* Telephone Encounter - Kathe Avalos - 07/25/2024 7:23 AM EDT Message released to patient as written. Yes If they are alluding to the coronary calcifications found on her CT scans that can be very nonspecific finding in a previous smoker, but would need follow-up. Appointment to discuss options for workup with me or cardiology referral to Dr. Mancilla if she prefers Patient's further questions if applicable: Patient would like a referral to Dr. Mancilla. Dr. Mancilla phone number, . Please Advise. Were all questions from office addressed or relayed to the patient from encounter: Yes [facility] [id number] Telephone encounter Note* Telephone Encounter - Mone Bob MA - 07/23/2024 9:18 AM EDT Left message for patient to return call to the office. [place] [id number] Miscellaneous Notes* Telephone Encounter - Shraddha Palumbo - 11/06/2024 8:34 AM EDT Ordering provider: jessie Date of last office visit: 08/20/2024 Date of next office visit: 12/17/2024 Updated/Validated preferred pharmacy: yes Patient instructed to contact the pharmacy prior to picking up the medication: yes (1) Medication name: hfa proair inhaler Medication dosage: 90 mcg (Micrograms) Monthly quantity needed: 120 How many day supply requestin days Medication route: inhalation (inhaler) Medication administration time(s): every 4 hours If taking medication PRN, reason for taking medication: no If this is a controlled substance do you receive this or any other controlled medication from any other doctor or facility: no Date of last refill (see medication tab): n/a documented in this encounterSEast [facility] [id number] Telephone encounter Note* Telephone Encounter - Stephanie Cordero LPN - 07/22/2024 1:39 PM EDT last seen [facility] [id number] Telephone encounter Note* Telephone Encounter - Antony Guillen - 07/22/2024 11:53 AM EDT Name of caller: Dayana Contact phone number: [phone] Relationship to Patient: patient Provider: Dr. Roman [facility]: [facility] Chief Complaint/Reason for Call: Patient requesting a referral for cardiology. Patient states at her infusion appointment yesterday 07/21/24 was told she should should make an appointment with a hotel front desk agent due to her CT scan results. Patient is requesting referral for Dr. Filipe [place] [facility]. Patient did not have fax number. Please advise. Best time of day caller can be reached: any Patient advised that office/PCP has 24-48 business hours to return their call: Yes [facility] [id number] History of Present illness Narrative* Joyce Chino RN - 07/09/2024 10:34 AM EDT EMR reviewed. The patient had an appt. with PCP's office on 07/02/24: HPI - Dayana Briggs (: 1950) is a 74 y.o. female , Established patient, here for the evaluationof the following chief complaint(s): Sinus Problem Reports having a sinus/cold for a week. Sinus pressure and congestion. Using nasal sprays and not helping much. No fever or chills. Initially had a temp of 99, reports the pressure in her face and forehead is worsening. Has severe copd - Reports her breathing is not as bad as it usually is. However worries that her congestion is going into her lungs and thinks that she may be a little shorter of breath than normal Last prednisone was a couple weeks ago. Has not taking her trelogy x 3 days- recommend restarting. Vitals: BP 128/78 Pulse 90 Temp 37.1 C (98.7 F) (Infrared) Resp 24 Wt 72.2 kg (159 lb 3.2 oz) SpO2 92% BMI 31.09 kg/m BSA 1.75 m CM outreach on 07/09/24: PMH: COPD, HTN, IBS, OA, HYPOTHYROID, HYPERLIPIDEMIA Follow-up appts: 08/20/24-Family medicine COPD MEDS: Trelegy inhaler 1 puff daily Using Albuterol inhaler every 4 hours as needed Using nebulizer every 3-4 days Using oxygen 2L continuously. Has a portable tank. Monitoring pulse ox daily-usually 97-98% when resting. Stated pulse ox decreases into the 80's whenambulating. Able to do her own ADL's Constant wheezing-currently taking Prednisone 20mg today, tapering to 10mg tomorrow Denies any current SOB-uses nebulizer and Albuterol when feeling SOB Has a referral to an ENT. They are going to check her esophagus. Has an appt. for 08/05/24. Sees Dr. Dyer-Operator Technician every 4 months. Patient told CM that her breathing has been bad for years. HTN MEDS: Spironolactone 25mg daily Amlodipine 5mg daily BP's are being checked at an infusion center monthly. She stated her BP's are usually 120's over 70's. Patient receives IVIG (intravenous immunoglobulin) infusions once per month. 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 She stated she has a BP machine and will check her BP's occasionally. Occasionally checking BP's at home Left foot edema after infusion for a few days Lives with her , daughter and grandchildren Patient's sisters and niece help with housework. Her daughter helps with cooking and will order take out food The patient quit smoking 2008. Completed SDOH Denies any current needs. The patient was agreeable to a follow-up phone call in a few weeks. Scheduled next outreach. documented in this [facility]03-17-2025 Telephone encounter Note* Telephone Encounter - Sabine Healy - 07/07/2024 10:13 AM EDT Name of caller: Dayana Contact phone number: [phone] Relationship to Patient: patient Provider: [place] Practice: ent Chief Complaint/Reason for Call: patient is cancelling their appointment on the and does not need to reschedule they found someone closer. Please advise and thank you Best time of day caller can be reached: any Patient advised that office/PCP has 24-48 business hours to return their call: No [place] [id number] Miscellaneous Notes* Telephone Encounter - Sabine Healy - 07/07/2024 10:13 AM EDT Name of caller: Dayana Contact phone number: [phone] Relationship to Patient: patient Provider: [place] Practice: ent Chief Complaint/Reason for Call: patient is cancelling their appointment on the and does not need to reschedule they found someone closer. Please advise and thank you Best time of day caller can be reached: any Patient advised that office/PCP has 24-48 business hours to return their call: No documented in this [facility]03-13-2025 NoteUpdated referral to [facility] pended for dx and [facility] Telephone encounter Note* Telephone Encounter - Denise Lindquist - 07/03/2024 8:16 AM EDT Updated referral to [facility] pended for dx and doctor's signature [facility] [id number] Miscellaneous Notes* Telephone Encounter - Denise Lindquist - 07/03/2024 8:16 AM EDT Updated referral to [facility] pended for dx and doctor's signature * Telephone Encounter - Riana Malhotra - 07/02/2024 8:46 AM EDT Name of caller: Dayana Contact phone number: [phone] Relationship to Patient: patient Provider: Dr. Disla Practice: [facility] Chief Complaint/Reason for Call: Pt is requesting a different ENT referral as the current one for [place] is too far and Pt is wanting one in the [place] area, please advise. Best time of day caller can be reached: Any Patient advised that office/PCP has 24-48 business hours to return their call: No documented in this encounterSEast [facility] [id number] Evaluation + Plan note* Assessment & Plan Note - ROSALIND Mulligan CNP - 07/02/2024 12:22 PM EDTAssociated Problem(s): COPD with acute exacerbation (HCC) Will treat for acute exacerbation. No acute distress. 92% 2L NC, Start prednisone taper. Follow up with pulmonology. [facility] [id number] Miscellaneous Notes* Assessment & Plan Note - ROSALIND Mulligan CNP - 07/02/2024 12:22 PM EDTAssociated Problem(s): COPD with acute exacerbation (HCC) Will treat for acute exacerbation. No acute distress. 92% 2L NC, Start prednisone taper. Follow up with pulmonology. * Assessment & Plan Note - ROSALIND Mulligan CNP - 07/02/2024 12:21 PM EDTAssociated Problem(s): Acute non-recurrent frontal sinusitis Will treat with antibiotics for bacterial sinusitis due to severity of symptoms and length of illness >7 days, not improving. documented in this [facility]03-12-2025 Miscellaneous Notes* Assessment & Plan Note - ROSALIND Mulligan CNP - 07/02/2024 12:22 PM EDTAssociated Problem(s): COPD with acute exacerbation (HCC) Will treat for acute exacerbation. No acute distress. 92% 2L NC, Start prednisone taper. Follow up with pulmonology. * Assessment & Plan Note - ROSALIND Mulligan CNP - 07/02/2024 12:21 PM EDTAssociated Problem(s): Acute non-recurrent frontal sinusitis Will treat with antibiotics for bacterial sinusitis due to severity of symptoms and length of illness >7 days, not improving. * Addendum Note - ROSALIND Mulligan CNP - 07/02/2024 11:00 AM EDT Addended by: DENISE DEAN on: 07/07/2024 10:53 AM Modules accepted: Level of Service documented in this [facility]03-12-2025 Evaluation + Plan note* Assessment & Plan Note - ROSALIND Mulligna CNP - 07/02/2024 12:21 PM EDTAssociated Problem(s): Acute non-recurrent frontal sinusitis Will treat with antibiotics for bacterial sinusitis due to severity of symptoms and length of illness >7 days, not improving. [facility] [id number] History of Present illness Narrative* Rosei Hope - 07/02/2024 11:00 AM EDT Patient was identified by name and Date of . * ROSALIND Mulligan CNP - 07/02/2024 11:00 AM EDT Images from the original note were not included. 07/02/2024 Dayana Briggs (: 1950) is a 74 y.o. female , Established patient, here for evaluation of the following chief complaint(s): Sinus Problem ASSESSMENT/PLAN: 1. Acute non-recurrent frontal sinusitis Assessment & Plan: Will treat with antibiotics for bacterial sinusitis due to severity of symptoms and length of illness >7 days, not improving. 2. COPD with acute exacerbation (HCC) Assessment & Plan: Will treat for acute exacerbation. No acute distress. 92% 2L NC, Start prednisone taper. Follow up with pulmonology. Orders: - predniSONE (Deltasone) 10 MG tablet; Take 20 mg (2 tabs) once daily for 7 days, then 10 mg (1 tab) once daily for 7 days, then 5 mg (0.5 tab) daily for 14 days., Normal - doxycycline (Vibramycin) 100 MG capsule; Take 1 capsule (100 mg) by mouth 2 times daily for 10 days. Take with at least 8 ounces (large glass) of water, do not lie down for 30 minutes after, Starting 07/02/2024, Until 07/12/2024, Normal Follow up if symptoms worsen or fail to improve. SUBJECTIVE/OBJECTIVE: HPI - Dayana Briggs (: 1950) is a 74 y.o. female , Established patient, here for the evaluationof the following chief complaint(s): Sinus Problem Reports having a sinus/cold for a week. Sinus pressure and congestion. Using nasal sprays and not helping much. No fever or chills. Initially had a temp of 99, reports the pressure in her face and forehead is worsening. Has severe copd - Reports her breathing is not as bad as it usually is. However worries that her congestion is going into her lungs and thinks that she may be a little shorter of breath than normal Last prednisone was a couple weeks ago. Has not taking her trelogy x 3 days- recommend restarting. Prior to Admission medications Medication Sig Start Date End Date Taking? Authorizing Provider albuterol (2.5 MG/3ML) 0.083% nebulizer solution Take 3 mL (2.5 mg) by nebulization every 4 hours as needed for wheezing or shortness of breath. 09/06/22 05/19/25 Yes Aubrey Dyer MD albuterol 108 (90 Base) MCG/ACT inhaler Inhale 2 puffs every 4 hours as needed for shortness of breath. 05/28/24 Yes ROSALIND Holloway CNP amLODIPine (Norvasc) 5 MG tablet Take 1 tablet (5 mg) by mouth daily. 12/27/23 Yes Porsper Roman DO atorvastatin (Lipitor) 10 MG tablet Take 1 tablet (10 mg) by mouth daily. 05/19/24 05/14/25 Yes ZEHRA Perez cholecalciferol (Vitamin D-3) 25 MCG (1000 UT) capsule Take 1 capsule by mouth in the morning and 1capsule before bedtime. 01/20/19 Yes Historical Provider, Nmlbembsmai-Ciysqfcco-Zomglv (Trelegy Ellipta) 200-62.5-25 MCG/ACT aerosol powder Inhale 1 puff daily. 01/30/24 Yes ROSALIND Holloway CNP Xqbwhxjmhks-Ssjyqowva-Znwvim (Trelegy Ellipta) 200-62.5-25 MCG/ACT aerosol powder Inhale 1 puff daily. Rinse mouth with water after use to reduce aftertaste and incidence of candidiasis. Do not swallow. 05/28/24 07/27/24 Yes ROSALIND Holloway CNP ipratropium (Atrovent) 0.02 % nebulizer solution INHALE THE CONTENTS OF 1 VIAL VIA NEBULIZER 2 TIMES DAILY 02/08/22 Yes Historical Provider, ipratropium-albuterol (Duo-Neb) 0.5-2.5 mg/3 mL nebulizer solution Take 3 mL by nebulization 4 times daily as needed for wheezing. 12/06/22 Yes Aubrey Dyer MD levothyroxine (Synthroid, Levoxyl) 100 MCG tablet Take 1 tablet (100 mcg) by mouth daily for 360 doses. 05/19/24 05/14/25 Yes Jazmin Moy PA-C omeprazole (PriLOSEC) [address] capsule Take 1 capsule (20 mg) by mouth daily. 02/20/24 Yes Prosper Bojorquez DO Potassium Gluconate 2.5 MEQ tablet Take by mouth. 04/27/20 Yes Historical Provider, sodium chloride 7 % nebulizer solution nebulizer solution Take 4 mL by nebulization 2 times daily as needed (chest congestion). 03/24/24 Yes ROSALIND Holloway CNP spironolactone (Aldactone) 25 MG tablet Take 1 tablet (25 mg) by mouth daily. 06/30/24 Yes Prosper Roman, tezepelumab-ekko (Tezspire) 210 MG/1.91ML solution auto-injector autoinjector pen Inject 1 Pen (210mg) under the skin every 28 (twenty-eight) days. 06/12/24 Yes ROSALIND Holloway CNP zafirlukast (Accolate) 20 MG tablet Take 20 mg by mouth in the morning and 20 mg before bedtime. 10/30/14 Yes Historical Provider, nystatin (Mycostatin) 453791 UNIT/ML suspension Take 5 mL (500,000 Units) by mouth 4 times daily for 10 days. Swish in mouth and spit out 06/18/24 06/28/24 ROSALIND Holloway CNP predniSONE (Deltasone) 10 MG tablet Take 20 mg (2 tabs) once daily for 7 days, then 10 mg (1 tab) once daily for 7 days, then 5 mg (0.5 tab) daily for 14 days. Patient not taking: Reported on 07/02/2024 06/05/24 ROSALIND Holloway CNP spironolactone (Aldactone) 25 MG tablet Take 1 tablet (25 mg) by mouth daily. 05/19/24 06/30/24 ZEHRA Perez Review of Systems Constitutional: Negative for activity change, appetite change, chills, diaphoresis, fatigue and fever. HENT: Positive for congestion, postnasal drip and sinus pressure. Negative for sore throat. Respiratory: Positive for cough, chest tightness, shortness of breath and wheezing. Slightly worse than normal Genitourinary: Negative for difficulty urinating. Vitals: 07/02/24 1103 BP: 128/78 Pulse: 90 Resp: 24 Temp: 37.1 C (98.7 F) TempSrc: Infrared SpO2: 92% Weight: 159 lb 3.2 oz (72.2 kg) Physical Exam Constitutional: General: She is not in acute distress. Appearance: Normal appearance. She is ill-appearing. HENT: Head: Normocephalic and atraumatic. Right Ear: Tympanic membrane normal. Left Ear: Tympanic membrane normal. Nose: Congestion present. Right Turbinates: Enlarged. Left Turbinates: Enlarged. Right Sinus: Maxillary sinus tenderness and frontal sinus tenderness present. Left Sinus: Maxillary sinus tenderness and frontal sinus tenderness present. Mouth/Throat: Mouth: Mucous membranes are moist. Pharynx: Oropharynx is clear. No posterior oropharyngeal erythema. Eyes: Conjunctiva/sclera: Conjunctivae normal. Cardiovascular: Rate and Rhythm: Normal rate and regular rhythm. Pulses: Normal pulses. Heart sounds: Normal heart sounds. Pulmonary: Effort: No respiratory distress. Breath sounds: Wheezing present. Comments: Speaking full sentences without difficulty. Lymphadenopathy: Cervical: No cervical adenopathy. Skin: General: Skin is warm and dry. Neurological: Mental Status: She is alert and oriented to person, place, and time. An electronic signature was used to authenticate this note. ROSALIND Maher CNP 07/02/2024 12:25 PM documented in this [facility]03-12-2025 History of Present illness Narrative* Rosie Hope - 07/02/2024 11:00 AM EDT Patient was identified by name and Date of . * Denise Dean, GLASS SETTER - [employer]ATCH [employer]OCK MAKER AND REPAIRER - 07/02/2024 11:00 AM EDT Images from the original note were not included. 07/02/2024 Dayana Briggs (: 1950) is a 74 y.o. female , Established patient, here for evaluation of the following chief complaint(s): Sinus Problem ASSESSMENT/PLAN: 1. Acute non-recurrent frontal sinusitis Assessment & Plan: Will treat with antibiotics for bacterial sinusitis due to severity of symptoms and length of illness >7 days, not improving. 2. COPD with acute exacerbation (HCC) Assessment & Plan: Will treat for acute exacerbation. No acute distress. 92% 2L NC, Start prednisone taper. Follow up with pulmonology. Orders: - predniSONE (Deltasone) 10 MG tablet; Take 20 mg (2 tabs) once daily for 7 days, then 10 mg (1 tab) once daily for 7 days, then 5 mg (0.5 tab) daily for 14 days., Normal - doxycycline (Vibramycin) 100 MG capsule; Take 1 capsule (100 mg) by mouth 2 times daily for 10 days. Take with at least 8 ounces (large glass) of water, do not lie down for 30 minutes after, Starting 07/02/2024, Until 07/12/2024, Normal Follow up if symptoms worsen or fail to improve. SUBJECTIVE/OBJECTIVE: HPI - Dayana Briggs (: 1950) is a 74 y.o. female , Established patient, here for the evaluationof the following chief complaint(s): Sinus Problem Reports having a sinus/cold for a week. Sinus pressure and congestion. Using nasal sprays and not helping much. No fever or chills. Initially had a temp of 99, reports the pressure in her face and forehead is worsening. Has severe copd - Reports her breathing is not as bad as it usually is. However worries that her congestion is going into her lungs and thinks that she may be a little shorter of breath than normal Last prednisone was a couple weeks ago. Has not taking her trelogy x 3 days- recommend restarting. Prior to Admission medications Medication Sig Start Date End Date Taking? Authorizing Provider albuterol (2.5 MG/3ML) 0.083% nebulizer solution Take 3 mL (2.5 mg) by nebulization every 4 hours as needed for wheezing or shortness of breath. 09/06/22 05/19/25 Yes Aubrey Dyer MD albuterol 108 (90 Base) MCG/ACT inhaler Inhale 2 puffs every 4 hours as needed for shortness of breath. 05/28/24 Yes ROSALIND Holloway CNP amLODIPine (Norvasc) 5 MG tablet Take 1 tablet (5 mg) by mouth daily. 12/27/23 Yes Prosper Roman, atorvastatin (Lipitor) 10 MG tablet Take 1 tablet (10 mg) by mouth daily. 05/19/24 05/14/25 Yes ZEHRA Perez cholecalciferol (Vitamin D-3) 25 MCG (1000 UT) capsule Take 1 capsule by mouth in the morning and 1capsule before bedtime. 01/20/19 Yes Historical Provider, Xgoyssxgdpf-Pbhuhfzwv-Ktsizd (Trelegy Ellipta) 200-62.5-25 MCG/ACT aerosol powder Inhale 1 puff daily. 01/30/24 Yes ROSALIND Holloway CNP Utaovcjfvvu-Snhepvboa-Lanwwe (Trelegy Ellipta) 200-62.5-25 MCG/ACT aerosol powder Inhale 1 puff daily. Rinse mouth with water after use to reduce aftertaste and incidence of candidiasis. Do not swallow. 05/28/24 07/27/24 Yes ROSALIND Holloway CNP ipratropium (Atrovent) 0.02 % nebulizer solution INHALE THE CONTENTS OF 1 VIAL VIA NEBULIZER 2 TIMES DAILY 02/08/22 Yes Historical Provider, ipratropium-albuterol (Duo-Neb) 0.5-2.5 mg/3 mL nebulizer solution Take 3 mL by nebulization 4 times daily as needed for wheezing. 12/06/22 Yes Aubrey Dyer MD levothyroxine (Synthroid, Levoxyl) 100 MCG tablet Take 1 tablet (100 mcg) by mouth daily for 360 doses. 05/19/24 05/14/25 Yes Jazmin Moy PA-C omeprazole (PriLOSEC) [address] capsule Take 1 capsule (20 mg) by mouth daily. 02/20/24 Yes Prosper Bojorquez DO Potassium Gluconate 2.5 MEQ tablet Take by mouth. 04/27/20 Yes Historical Provider, sodium chloride 7 % nebulizer solution nebulizer solution Take 4 mL by nebulization 2 times daily as needed (chest congestion). 03/24/24 Yes ROSALIND Holloway CNP spironolactone (Aldactone) 25 MG tablet Take 1 tablet (25 mg) by mouth daily. 06/30/24 Yes Prosper Roman DO tezepelumab-ekko (Tezspire) 210 MG/1.91ML solution auto-injector autoinjector pen Inject 1 Pen (210mg) under the skin every 28 (twenty-eight) days. 06/12/24 Yes ROSALIND Holloway CNP zafirlukast (Accolate) 20 MG tablet Take 20 mg by mouth in the morning and 20 mg before bedtime. 10/30/14 Yes Historical Provider, nystatin (Mycostatin) [id number] UNIT/ML suspension Take 5 mL (500,000 Units) by mouth 4 times daily for 10 days. Swish in mouth and spit out 06/18/24 06/28/24 ROSALIND Holloway CNP predniSONE (Deltasone) 10 MG tablet Take 20 mg (2 tabs) once daily for 7 days, then 10 mg (1 tab) once daily for 7 days, then 5 mg (0.5 tab) daily for 14 days. Patient not taking: Reported on 07/02/2024 06/05/24 ROSALIND Holloway CNP spironolactone (Aldactone) 25 MG tablet Take 1 tablet (25 mg) by mouth daily. 05/19/24 06/30/24 ZEHRA Perez Review of Systems Constitutional: Negative for activity change, appetite change, chills, diaphoresis, fatigue and fever. HENT: Positive for congestion, postnasal drip and sinus pressure. Negative for sore throat. Respiratory: Positive for cough, chest tightness, shortness of breath and wheezing. Slightly worse than normal Genitourinary: Negative for difficulty urinating. Vitals: 07/02/24 1103 BP: 128/78 Pulse: 90 Resp: 24 Temp: 37.1 C (98.7 F) TempSrc: Infrared SpO2: 92% Weight: 159 lb 3.2 oz (72.2 kg) Physical Exam Constitutional: General: She is not in acute distress. Appearance: Normal appearance. She is ill-appearing. HENT: Head: Normocephalic and atraumatic. Right Ear: Tympanic membrane normal. Left Ear: Tympanic membrane normal. Nose: Congestion present. Right Turbinates: Enlarged. Left Turbinates: Enlarged. Right Sinus: Maxillary sinus tenderness and frontal sinus tenderness present. Left Sinus: Maxillary sinus tenderness and frontal sinus tenderness present. Mouth/Throat: Mouth: Mucous membranes are moist. Pharynx: Oropharynx is clear. No posterior oropharyngeal erythema. Eyes: Conjunctiva/sclera: Conjunctivae normal. Cardiovascular: Rate and Rhythm: Normal rate and regular rhythm. Pulses: Normal pulses. Heart sounds: Normal heart sounds. Pulmonary: Effort: No respiratory distress. Breath sounds: Wheezing present. Comments: Speaking full sentences without difficulty. Lymphadenopathy: Cervical: No cervical adenopathy. Skin: General: Skin is warm and dry. Neurological: Mental Status: She is alert and oriented to person, place, and time. An electronic signature was used to authenticate this note. ROSALIND Maher CNP 07/02/2024 12:25 PM documented in this [facility]03-12-2025 Instructions* Patient Instructions* ROSALIND Mulligan CNP - 07/02/2024 11:00 AM EDT Make sure to follow up with pulmonology and ENT * Attachments The following attachments cannot be sent through Care Everywhere. * Sinusitis Discharge Instructions, Adult ([place]) documented in this [facility]03-12-2025 Instructions* Patient Instructions* ROSALIND Mulligan CNP - 07/02/2024 11:00 AM EDT Make sure to follow up with pulmonology and ENT * Attachments The following attachments cannot be sent through Care Everywhere. * Sinusitis Discharge Instructions, Adult ([place]itian) documented in this [facility]03-12-2025 Note* Addendum Note - ROSALIND Mulligan CNP - 07/02/2024 11:00 AM EDTAddended by: DENISE DEAN on: 07/07/2024 10:53 AM Modules accepted: Level of Service [facility] [id number] Telephone encounter Note* Telephone Encounter - Riana Malhotra - 07/02/2024 8:46 AM EDT Name of caller: Dayana Contact phone number: [phone] Relationship to Patient: patient Provider: Dr. Disla Practice: [facility] Chief Complaint/Reason for Call: Pt is requesting a different ENT referral as the current one for [place] is too far and Pt is wanting one in the [place] area, please advise. Best time of day caller can be reached: Any Patient advised that office/PCP has 24-48 business hours to return their call: No [facility] [id number] Telephone encounter Note* Telephone Encounter - Carrie Guo RN - 07/01/2024 3:04 PM EDT S: Patient spoke with [facility] nurse regarding sinus infection B: Onset of symptoms/concern 4 days A: Thinks she has sinus infection, cold for 3-4 days, now feels like it is in her head, didn't check temp but thinks she may have had fever, grandchildren had flu, exposed. States this doesn't feel like the flu. Denies: earpain, sore pain, R: Patient POD scheduled tomorrow 07/02 at 11:00a with Robina Dean at [place] office. Advised to wear mask to appointment due to symptoms and flu exposure. No appointments in PCP office. Message from [facility] ENT also reviewed. Patient understands care advice. No further needs at this time. Patient instructed to call back with new or worsening symptoms. Reason for Disposition Patient wants to be seen Protocols used: Sinus Pain or [id number] [facility] [id number] Miscellaneous Notes* Telephone Encounter - Carrie Guo RN - 07/01/2024 3:04 PM EDT S: Patient spoke with [facility] nurse regarding sinus infection B: Onset of symptoms/concern 4 days A: Thinks she has sinus infection, cold for 3-4 days, now feels like it is in her head, didn't check temp but thinks she may have had fever, grandchildren had flu, exposed. States this doesn't feel like the flu. Denies: earpain, sore pain, R: Patient POD scheduled tomorrow 07/02 at 11:00a with Robina Dean at [place] office. Advised to wear mask to appointment due to symptoms and flu exposure. No appointments in PCP office. Message from [facility] ENT also reviewed. Patient understands care advice. No further needs at this time. Patient instructed to call back with new or worsening symptoms. Reason for Disposition Patient wants to be seen Protocols used: Sinus Pain or [id number] documented in this encounterSEast [facility] [id number] Telephone encounter Note* Telephone Encounter - Mone Bob MA - 06/30/2024 8:04 AM EDT Rx loaded [facility] [id number] Miscellaneous Notes* Telephone Encounter - Mone Bob MA - 06/30/2024 8:04 AM EDT Rx loaded * Telephone Encounter - Jolanta Bhandari - 06/30/2024 7:37 AM EDT Medication name: spironolactone (Aldactone) 25 MG tablet Medication dosage: 25 mg (Miligrams Monthly quantity needed: 30 How many day supply requestin days Medication route: oral (PO) Medication administration time(s): daily If taking medication PRN, reason for taking medication: N/A If this is a controlled substance do you receive this or any other controlled medication from any other doctor or facility: No Ordering provider: Jazmin Moy PA-C Date of last office visit: 05/19/2024 Date of next office visit: 08/20/2024 Date of last refill: (see medication tab): 05/19/2024 Updated/Validated preferred pharmacy: Yes Patient instructed to contact the pharmacy prior to picking up the medication: Yes documented in this [facility]03-10-2025 Telephone encounter Note* Telephone Encounter - Jolanta Bhandari - 06/30/2024 7:37 AM EDT Medication name: spironolactone (Aldactone) 25 MG tablet Medication dosage: 25 mg (Miligrams Monthly quantity needed: 30 How many day supply requestin days Medication route: oral (PO) Medication administration time(s): daily If taking medication PRN, reason for taking medication: N/A If this is a controlled substance do you receive this or any other controlled medication from any other doctor or facility: No Ordering provider: Jazmin Moy PA-C Date of last office visit: 05/19/2024 Date of next office visit: 08/20/2024 Date of last refill: (see medication tab): 05/19/2024 Updated/Validated preferred pharmacy: Yes Patient instructed to contact the pharmacy prior to picking up the medication: Yes [id number] Telephone encounter Note* Telephone Encounter - Mone Disla DO - 06/26/2024 3:19 PM EST Referral ordered [id number] Miscellaneous Notes* Telephone Encounter - Mone Disla DO - 06/26/2024 3:19 PM EST Referral ordered * Telephone Encounter - Denise Lindquist - 06/26/2024 1:25 PM EST This needs to go to Dr Roman. * Telephone Encounter - Patricia Kelley - 06/26/2024 12:36 PM EST Name of caller: Dayana Briggs Contact phone number: [phone] Relationship to Patient: patient Provider: Dr. Roman Practice: [facility] Chief Complaint/Reason for Call: patient stated she would like a referral to evaluate her for laryngeal abnormalities, including vocal cord dysfunction. Please advise. Thank you. Best time of day caller can be reached: Any Patient advised that office/PCP has 24-48 business hours to return their call: Yes documented in this [facility]SEast [facility] [id number] Telephone encounter Note* Telephone Encounter - Denise Lindquist - 06/26/2024 1:25 PM EST This needs to go to Dr Roman. [id number] Telephone encounter Note* Telephone Encounter - Patricia Kelley - 06/26/2024 12:36 PM EST Name of caller: Dayana Briggs Contact phone number: [phone] Relationship to Patient: patient Provider: Dr. Roman Practice: [facility] Chief Complaint/Reason for Call: patient stated she would like a referral to evaluate her for laryngeal abnormalities, including vocal cord dysfunction. Please advise. Thank you. Best time of day caller can be reached: Any Patient advised that office/PCP has 24-48 business hours to return their call: Yes [id number] Telephone encounter Note* Telephone Encounter - ROSALIND Holloway CNP - 06/23/2024 2:44 PM EST error [id number] Miscellaneous Notes* Telephone Encounter - ROSALIND Holloway CNP - 06/23/2024 2:44 PM EST error documented in this [facility]02-26-2025 Telephone encounter Note* Telephone Encounter - Beatrice Weinberg - 06/18/2024 3:53 PM EST Spoke with patient regarding good rx for zafirkulast and she is not interested in taking it. She states it does not work. Also, she does not want to take injectables. She will see florist's decorator in July. Regarding different meds. [id number] Miscellaneous Notes* Telephone Encounter - Beatrice Weinberg - 06/18/2024 3:53 PM EST Spoke with patient regarding good rx for zafirkulast and she is not interested in taking it. She states it does not work. Also, she does not want to take injectables. She will see florist's decorator in July. Regarding different meds. * Telephone Encounter - Beatrice Weinberg - 06/18/2024 3:51 PM EST Spoke with patient and she is not interested in * Telephone Encounter - ROSALIND Holloway CNP - 06/18/2024 1:53 PM EST Please let patient know that I was able to find her cecil on [facility] for about $31/month, which is much less than she would be charged with insurance. I recommend she get the medication that way. * Telephone Encounter - Anirudh Goode RPh - 06/17/2024 4:01 PM EST I was able to get PA approval for Tezspire but patient declined this medication stating she is not interested in any injectable medication at this time. The medication does have a high copay but she would likely qualify for financial sales assistant that would bring cost to $0. I explained this to patient and asked her to let us know if she does change mind and would like to pursue this medication. * Addendum Note - ROSALIND Holloway CNP - 06/12/2024 10:43 AM ESTAddended by: JOYCE BROWN on: 06/12/2024 10:43 AM Modules accepted: Orders * Telephone Encounter - ROSALIND Holloway CNP - 06/12/2024 10:21 AM EST Spoke with patient. She would be agreeable to try a different biologic if not too expensive. Abs Eos 200 on 09/05/21. Low confidence level of accuracy of more recent CBC/Eos level due to very frequentsteroid use. Patient may benefit from addition of Tezspire or other biologic to assist with Eos. Will try to order this and get approved. Will also reach out to specialty pharmacy. She is also concerned about the cost of zafirkulast, which is nearly $200/month. I looked on [facility], and found it for as low as $31 per month. Recommend this route. * Telephone Encounter - ROSALIND Holloway CNP - 06/10/2024 10:43 AM EST 's (Dr. Davis's fellow) returned call. States Dr. Davis is well aware of patient's symptoms. He feels this is related to poorly controlled asthma component. She was given sample of dupixent in the office, which she reported side effect to. Apparently, she was also offered Rx for tezspire biologic, but she declined. Will call patient to discuss. * Telephone Encounter - ROSALIND Holloway CNP - 06/06/2024 9:01 AM EST Spoke with Dr. Davis's fellow today. Reviewed chart with her. Patient had previously tolerated a different IVIG better, but due to insurance coverage, this was changed and patient has less tolerance to the current IVIG. Confirmed she isgetting IV solumedrol prior to the infusions to help with side effects but not helping much. Patient prescribed 9 courses of prednisone in the last 6 months. Also looks like patient had reaction to dupixent. Was offered tezspire biologic instead per immunology notes, but patient declined, unclear why. I also told her patient was offered BLVR work up but declined. I asked if they have any other recommendations to optimize her symptoms. She will discuss the case with Dr. Davis and plan to returnthe call on Sunday. * Telephone Encounter - ROSALIND Holloway CNP - 06/05/2024 1:17 PM EST Yes I ordered the CT at her appt on 05/28 as requested. Looks like it is already scheduled for 06/11. * Telephone Encounter - Beatrice Weinberg - 06/05/2024 1:12 PM EST Informed patient about tapered prednisone and awaiting call from Dr Davis. Patient inquirng about ct scan. She says she has approval from insurance. Did you order? Please advise. * Telephone Encounter - ROSALIND Holloway CNP - 06/05/2024 11:30 AM EST Will send in prolonged taper of prednisone. Also, I had tried to get in contact with Dr. Davis's office a couple of times. Most recently, this morning, he was in with a patient and office staff told me he will call me back. Awaiting call. * Telephone Encounter - Beatrice Weinberg - 06/05/2024 10:10 AM EST Patient called today. She said she needs more prednisone. As soon as she finished last rx her breathing got worse. [facility] [place]. Also, she would like to know if you reviewed the notes from Dr Davis documented in this [facility]02-26-2025 Telephone encounter Note* Telephone Encounter - Beatrice Weinberg - 06/18/2024 3:51 PM EST Spoke with patient and she is not interested in [id number] Note* Addendum Note - ROSALIND Holloway CNP - 06/18/2024 1:59 PM ESTAddended by: JOYCE BROWN on: 06/18/2024 01:59 PM Modules accepted: Orders [id number] Telephone encounter Note* Telephone Encounter - ROSALIND Holloway CNP - 06/18/2024 1:59 PM EST Rx sent [id number] Miscellaneous Notes* Addendum Note - ROSALIND Holloway CNP - 06/18/2024 1:59 PM ESTAddended by: JOYCE BROWN on: 06/18/2024 01:59 PM Modules accepted: Orders * Telephone Encounter - ROSALIND Holloway CNP - 06/18/2024 1:59 PM EST Rx sent * Telephone Encounter - Jaja Noel - 06/18/2024 8:29 AM EST Pt called office 06/18/2024 requesting an Rx for Thrush. Pt Pharmacy is [place], [place]. Thank You Jaja Noel MA documented in this encounterSEast [facility] [id number] Telephone encounter Note* Telephone Encounter - ROSALIND Holloway CNP - 06/18/2024 1:53 PM EST Please let patient know that I was able to find her cecil on [facility] for about $31/month, which is much less than she would be charged with insurance. I recommend she get the medication that way. [facility] [id number] Telephone encounter Note* Telephone Encounter - Jaja Noel - 06/18/2024 8:29 AM EST Pt called office 06/18/2024 requesting an Rx for Thrush. Pt Pharmacy is [place], [place]. Thank You Jaja Noel MA [facility] [id number] Telephone encounter Note* Telephone Encounter - Anirudh Goode RPh - 06/17/2024 4:01 PM EST I was able to get PA approval for Tezspire but patient declined this medication stating she is not interested in any injectable medication at this time. The medication does have a high copay but she would likely qualify for financial sales assistant that would bring cost to $0. I explained this to patient and asked her to let us know if she does change mind and would like to pursue this medication. [facility] [id number] Miscellaneous Notes* Telephone Encounter - Anirudh Goode RPh - 06/17/2024 4:01 PM EST I was able to get PA approval for Tezspire but patient declined this medication stating she is not interested in any injectable medication at this time. The medication does have a high copay but she would likely qualify for financial sales assistant that would bring cost to $0. I explained this to patient and asked her to let us know if she does change mind and would like to pursue this medication. * Addendum Note - ROSALIND Holloway CNP - 06/12/2024 10:43 AM ESTAddended by: JOYCE BROWN on: 06/12/2024 10:43 AM Modules accepted: Orders * Telephone Encounter - ROSALIND Holloway CNP - 06/12/2024 10:21 AM EST Spoke with patient. She would be agreeable to try a different biologic if not too expensive. Abs Eos 200 on 09/05/21. Low confidence level of accuracy of more recent CBC/Eos level due to very frequentsteroid use. Patient may benefit from addition of Tezspire or other biologic to assist with Eos. Will try to order this and get approved. Will also reach out to specialty pharmacy. She is also concerned about the cost of zafirkulast, which is nearly $200/month. I looked on [facility], and found it for as low as $31 per month. Recommend this route. * Telephone Encounter - ROSALIND Holloway CNP - 06/10/2024 10:43 AM EST 's (Dr. Davis's fellow) returned call. States Dr. Davis is well aware of patient's symptoms. He feels this is related to poorly controlled asthma component. She was given sample of dupixent in the office, which she reported side effect to. Apparently, she was also offered Rx for tezspire biologic, but she declined. Will call patient to discuss. * Telephone Encounter - ROSALIND Holloway CNP - 06/06/2024 9:01 AM EST Spoke with Dr. Davis's fellow today. Reviewed chart with her. Patient had previously tolerated a different IVIG better, but due to insurance coverage, this was changed and patient has less tolerance to the current IVIG. Confirmed she isgetting IV solumedrol prior to the infusions to help with side effects but not helping much. Patient prescribed 9 courses of prednisone in the last 6 months. Also looks like patient had reaction to dupixent. Was offered tezspire biologic instead per immunology notes, but patient declined, unclear why. I also told her patient was offered BLVR work up but declined. I asked if they have any other recommendations to optimize her symptoms. She will discuss the case with Dr. Davis and plan to returnthe call on Sunday. * Telephone Encounter - ROSALIND Holloway CNP - 06/05/2024 1:17 PM EST Yes I ordered the CT at her appt on 05/28 as requested. Looks like it is already scheduled for 06/11. * Telephone Encounter - Beatrice Weinberg - 06/05/2024 1:12 PM EST Informed patient about tapered prednisone and awaiting call from Dr Davis. Patient inquirng about ct scan. She says she has approval from insurance. Did you order? Please advise. * Telephone Encounter - ROSALIND Holloway CNP - 06/05/2024 11:30 AM EST Will send in prolonged taper of prednisone. Also, I had tried to get in contact with Dr. Davis's office a couple of times. Most recently, this morning, he was in with a patient and office staff told me he will call me back. Awaiting call. * Telephone Encounter - Beatrice Weinberg - 06/05/2024 10:10 AM EST Patient called today. She said she needs more prednisone. As soon as she finished last rx her breathing got worse. [facility] [place]. Also, she would like to know if you reviewed the notes from Dr Davis documented in this encounterSEast [facility] [id number] Note* Addendum Note - ROSALIND Holloway CNP - 06/12/2024 10:43 AM ESTAddended by: JOYCE BROWN on: 06/12/2024 10:43 AM Modules accepted: Orders [id number] Note* Addendum Note - ROSALIND Holloway CNP - 06/12/2024 10:43 AM ESTAddended by: JOYCE BROWN on: 06/12/2024 10:43 AM Modules accepted: Orders [id number] Note* Addendum Note - ROSALIND Holloway CNP - 06/12/2024 10:43 AM ESTAddended by: JOYCE BROWN on: 06/12/2024 10:43 AM Modules accepted: Orders [id number] Note* Addendum Note - ROSALIND Holloway CNP - 06/12/2024 10:43 AM ESTAddended by: JOYCE BROWN on: 06/12/2024 10:43 AM Modules accepted: Orders [id number] Note* Addendum Note - ROSALIND Holloway CNP - 06/12/2024 10:43 AM ESTAddended by: JOYCE BROWN on: 06/12/2024 10:43 AM Modules accepted: Orders [id number] Miscellaneous Notes* Addendum Note - ROSALIND Holloway CNP - 06/12/2024 10:43 AM ESTAddended by: JOYCE BROWN on: 06/12/2024 10:43 AM Modules accepted: Orders * Telephone Encounter - ROSALIND Holloway CNP - 06/12/2024 10:21 AM EST Spoke with patient. She would be agreeable to try a different biologic if not too expensive. Abs Eos 200 on 09/05/21. Low confidence level of accuracy of more recent CBC/Eos level due to very frequentsteroid use. Patient may benefit from addition of Tezspire or other biologic to assist with Eos. Will try to order this and get approved. Will also reach out to specialty pharmacy. She is also concerned about the cost of zafirkulast, which is nearly $200/month. I looked on [facility], and found it for as low as $31 per month. Recommend this route. * Telephone Encounter - ROSALIND Holloway CNP - 06/10/2024 10:43 AM EST 's (Dr. Davis's fellow) returned call. States Dr. Davis is well aware of patient's symptoms. He feels this is related to poorly controlled asthma component. She was given sample of dupixent in the office, which she reported side effect to. Apparently, she was also offered Rx for tezspire biologic, but she declined. Will call patient to discuss. * Telephone Encounter - ROSALIND Holloway CNP - 06/06/2024 9:01 AM EST Spoke with Dr. Davis's fellow today. Reviewed chart with her. Patient had previously tolerated a different IVIG better, but due to insurance coverage, this was changed and patient has less tolerance to the current IVIG. Confirmed she isgetting IV solumedrol prior to the infusions to help with side effects but not helping much. Patient prescribed 9 courses of prednisone in the last 6 months. Also looks like patient had reaction to dupixent. Was offered tezspire biologic instead per immunology notes, but patient declined, unclear why. I also told her patient was offered BLVR work up but declined. I asked if they have any other recommendations to optimize her symptoms. She will discuss the case with Dr. Davis and plan to returnthe call on Sunday. * Telephone Encounter - ROSALIND Holloway CNP - 06/05/2024 1:17 PM EST Yes I ordered the CT at her appt on 05/28 as requested. Looks like it is already scheduled for 06/11. * Telephone Encounter - Beatrice Weinberg - 06/05/2024 1:12 PM EST Informed patient about tapered prednisone and awaiting call from Dr Davis. Patient inquirng about ct scan. She says she has approval from insurance. Did you order? Please advise. * Telephone Encounter - ROSALIND Holloway CNP - 06/05/2024 11:30 AM EST Will send in prolonged taper of prednisone. Also, I had tried to get in contact with Dr. Davis's office a couple of times. Most recently, this morning, he was in with a patient and office staff told me he will call me back. Awaiting call. * Telephone Encounter - Beatrice Weinberg - 06/05/2024 10:10 AM EST Patient called today. She said she needs more prednisone. As soon as she finished last rx her breathing got worse. [facility] [place]. Also, she would like to know if you reviewed the notes from Dr Davis documented in this encounterSEast [facility] [id number] Telephone encounter Note* Telephone Encounter - ROSALIND Holloway CNP - 06/12/2024 10:21 AM EST Spoke with patient. She would be agreeable to try a different biologic if not too expensive. Abs Eos 200 on 09/05/21. Low confidence level of accuracy of more recent CBC/Eos level due to very frequentsteroid use. Patient may benefit from addition of Tezspire or other biologic to assist with Eos. Will try to order this and get approved. Will also reach out to specialty pharmacy. She is also concerned about the cost of zafirkulast, which is nearly $200/month. I looked on [facility], and found it for as low as $31 per month. Recommend this route. [id number] Telephone encounter Note* Telephone Encounter - ROSALIND Holloway CNP - 06/10/2024 10:43 AM EST s (Dr. Davis's fellow) returned call. States Dr. Davis is well aware of patient's symptoms. He feels this is related to poorly controlled asthma component. She was given sample of dupixent in the office, which she reported side effect to. Apparently, she was also offered Rx for tezspire biologic, but she declined. Will call patient to discuss. [id number] Miscellaneous Notes* Telephone Encounter - ROSALIND Holloway CNP - 06/10/2024 10:43 AM EST (Dr. Davis's fellow) returned call. States Dr. Davis is well aware of patient's symptoms. He feels this is related to poorly controlled asthma component. She was given sample of dupixent in the office, which she reported side effect to. Apparently, she was also offered Rx for tezspire biologic, but she declined. Will call patient to discuss. * Telephone Encounter - ROSALIND Holloway CNP - 06/06/2024 9:01 AM EST Spoke with Dr. Davis's fellow today. Reviewed chart with her. Patient had previously tolerated a different IVIG better, but due to insurance coverage, this was changed and patient has less tolerance to the current IVIG. Confirmed she isgetting IV solumedrol prior to the infusions to help with side effects but not helping much. Patient prescribed 9 courses of prednisone in the last 6 months. Also looks like patient had reaction to dupixent. Was offered tezspire biologic instead per immunology notes, but patient declined, unclear why. I also told her patient was offered BLVR work up but declined. I asked if they have any other recommendations to optimize her symptoms. She will discuss the case with Dr. Davis and plan to returnthe call on Sunday. * Telephone Encounter - ROSALIND Holloway CNP - 06/05/2024 1:17 PM EST Yes I ordered the CT at her appt on 05/28 as requested. Looks like it is already scheduled for 06/11. * Telephone Encounter - Beatrice Weinberg - 06/05/2024 1:12 PM EST Informed patient about tapered prednisone and awaiting call from Dr Davis. Patient inquirng about ct scan. She says she has approval from insurance. Did you order? Please advise. * Telephone Encounter - ROSALIND Holloway CNP - 06/05/2024 11:30 AM EST Will send in prolonged taper of prednisone. Also, I had tried to get in contact with Dr. Davis's office a couple of times. Most recently, this morning, he was in with a patient and office staff told me he will call me back. Awaiting call. * Telephone Encounter - Beatrice Weinberg - 06/05/2024 10:10 AM EST Patient called today. She said she needs more prednisone. As soon as she finished last rx her breathing got worse. [facility] [place]. Also, she would like to know if you reviewed the notes from Dr Davis documented in this [facility]02-14-2025 Telephone encounter Note* Telephone Encounter - ROSALIND Holloway CNP - 06/06/2024 9:01 AM EST Spoke with Dr. Davis's fellow today. Reviewed chart with her. Patient had previously tolerated a different IVIG better, but due to insurance coverage, this was changed and patient has less tolerance to the current IVIG. Confirmed she isgetting IV solumedrol prior to the infusions to help with side effects but not helping much. Patient prescribed 9 courses of prednisone in the last 6 months. Also looks like patient had reaction to dupixent. Was offered tezspire biologic instead per immunology notes, but patient declined, unclear why. I also told her patient was offered BLVR work up but declined. I asked if they have any other recommendations to optimize her symptoms. She will discuss the case with Dr. Davis and plan to returnthe call on Sunday. [facility] [id number] Miscellaneous Notes* Telephone Encounter - ROSALIND Hollwoay CNP - 06/06/2024 9:01 AM EST Spoke with Dr. Davis's fellow today. Reviewed chart with her. Patient had previously tolerated a different IVIG better, but due to insurance coverage, this was changed and patient has less tolerance to the current IVIG. Confirmed she isgetting IV solumedrol prior to the infusions to help with side effects but not helping much. Patient prescribed 9 courses of prednisone in the last 6 months. Also looks like patient had reaction to dupixent. Was offered tezspire biologic instead per immunology notes, but patient declined, unclear why. I also told her patient was offered BLVR work up but declined. I asked if they have any other recommendations to optimize her symptoms. She will discuss the case with Dr. Davis and plan to returnthe call on Sunday. * Telephone Encounter - ROSALIND Holloway CNP - 06/05/2024 1:17 PM EST Yes I ordered the CT at her appt on 05/28 as requested. Looks like it is already scheduled for 06/11. * Telephone Encounter - Beatrice Weinberg - 06/05/2024 1:12 PM EST Informed patient about tapered prednisone and awaiting call from Dr Davis. Patient inquirng about ct scan. She says she has approval from insurance. Did you order? Please advise. * Telephone Encounter - ROSALIND Holloway CNP - 06/05/2024 11:30 AM EST Will send in prolonged taper of prednisone. Also, I had tried to get in contact with Dr. Davis's office a couple of times. Most recently, this morning, he was in with a patient and office staff told me he will call me back. Awaiting call. * Telephone Encounter - Beatrice Weinberg - 06/05/2024 10:10 AM EST Patient called today. She said she needs more prednisone. As soon as she finished last rx her breathing got worse. [facility] [place]. Also, she would like to know if you reviewed the notes from Dr Davis documented in this [facility]02-13-2025 Miscellaneous Notes* Telephone Encounter - ROSALIND Holloway CNP - 06/05/2024 1:17 PM EST Yes I ordered the CT at her appt on 05/28 as requested. Looks like it is already scheduled for 06/11. * Telephone Encounter - Beatrice Weinberg - 06/05/2024 1:12 PM EST Informed patient about tapered prednisone and awaiting call from Dr Davis. Patient inquirng about ct scan. She says she has approval from insurance. Did you order? Please advise. * Telephone Encounter - ROSALIND Holloway CNP - 06/05/2024 11:30 AM EST Will send in prolonged taper of prednisone. Also, I had tried to get in contact with Dr. Davis's office a couple of times. Most recently, this morning, he was in with a patient and office staff told me he will call me back. Awaiting call. * Telephone Encounter - Beatrice Weinberg - 06/05/2024 10:10 AM EST Patient called today. She said she needs more prednisone. As soon as she finished last rx her breathing got worse. She uses [facility] [place]. Also, she would like to know if you reviewed the notes from Dr Davis documented in this encounterSEast [facility] City [id number] Telephone encounter Note* Telephone Encounter - ROSALIND Holloway CNP - 06/05/2024 1:17 PM EST Yes I ordered the CT at her appt on 05/28 as requested. Looks like it is already scheduled for 06/11. [facility] [id number] Telephone encounter Note* Telephone Encounter - Beatrice Weinberg - 06/05/2024 1:12 PM EST Informed patient about tapered prednisone and awaiting call from Dr Davis. Patient inquirng about ct scan. She says she has approval from insurance. Did you order? Please advise. [facility] [id number] Telephone encounter Note* Telephone Encounter - ROSALIND Holloway CNP - 06/05/2024 11:37 AM EST See other TE [facility] [id number] Miscellaneous Notes* Telephone Encounter - ROSALIND Holloway CNP - 06/05/2024 11:37 AM EST See other TE * Telephone Encounter - ROSALIND Holloway CNP - 05/30/2024 1:33 PM EST Received most recent visit note from 01/2024. It appears Dr. Davis is aware that patient has reaction to IVIG. Has also tried dupixent. I called to discuss plan of care with him, but staff on lunch. They asked I call back after 2. Willcall later * Telephone Encounter - Susan Young MA - 05/28/2024 11:29 AM EST I called again this morning, I had to [facility] requesting info again * Telephone Encounter - ROSALIND Holloway CNP - 05/28/2024 11:16 AM EST Seeing patient today. Checking in to see if any records have been received? I didn't see anything in media. Thanks! * Telephone Encounter - Dee Au RN - 03/25/2024 10:17 AM EST This RN called and LVM on [facility] asking for most recent OV note to be faxed to office. Provided phone number and fax number. * Telephone Encounter - Dee Au RN - 03/25/2024 8:[address] Davis [facility] office: [phone] Office does not open until 10 on Tuesdays. Will call back. * Telephone Encounter - ROSALIND Holloway CNP - 03/24/2024 3:59 PM EST Patient seeing Dr Davis in [facility] for IVIG infusions. Please obtain most recent visit notes and notify me when received. Thanks! documented in this encounterSEast [facility] City [id number] Telephone encounter Note* Telephone Encounter - ROSALIND Holloway CNP - 06/05/2024 11:30 AM EST Will send in prolonged taper of prednisone. Also, I had tried to get in contact with Dr. Davis's office a couple of times. Most recently, this morning, he was in with a patient and office staff told me he will call me back. Awaiting call. [facility] [id number] Telephone encounter Note* Telephone Encounter - Beatrice Weinberg - 06/05/2024 10:10 AM EST Patient called today. She said she needs more prednisone. As soon as she finished last rx her breathing got worse. [facility] [place]. Also, she would like to know if you reviewed the notes from Dr Davis [facility] [id number] NoteReceived most recent visit note from 01/2024. It appears Dr. Davis is aware that patient has reaction to IVIG. Has also tried dupixent. I called to discuss plan of care with him, but staff on lunch. They asked I call back after 2. Will call [facility]02-07-2025 Telephone encounter Note* Telephone Encounter - ROSALIND Holloway CNP - 05/30/2024 1:33 PM EST Received most recent visit note from 01/2024. It appears Dr. Davis is aware that patient has reaction to IVIG. Has also tried dupixent. I called to discuss plan of care with him, but staff on lunch. They asked I call back after 2. Willcall later [facility] [id number] Miscellaneous Notes* Telephone Encounter - ROSALIND Holloway CNP - 05/30/2024 1:33 PM EST Received most recent visit note from 01/2024. It appears Dr. Davis is aware that patient has reaction to IVIG. Has also tried dupixent. I called to discuss plan of care with him, but staff on lunch. They asked I call back after 2. Willcall later * Telephone Encounter - Susan Young MA - 05/28/2024 11:29 AM EST I called again this morning, I had to [facility] requesting info again * Telephone Encounter - ROSALIND Holloway CNP - 05/28/2024 11:16 AM EST Seeing patient today. Checking in to see if any records have been received? I didn't see anything in media. Thanks! * Telephone Encounter - Dee Au RN - 03/25/2024 10:17 AM EST This RN called and LVM on [facility] asking for most recent OV note to be faxed to office. Provided phone number and fax number. * Telephone Encounter - Dee Au RN - 03/25/2024 8:[address] Davis [facility] office: [phone] Office does not open until 10 on Tuesdays. Will call back. * Telephone Encounter - ROSALIND Holloway CNP - 03/24/2024 3:59 PM EST Patient seeing Dr Davis in [facility] for IVIG infusions. Please obtain most recent visit notes and notify me when received. Thanks! documented in this encounterSEast [facility] City [id number] Telephone encounter Note* Telephone Encounter - Susan Young MA - 05/28/2024 11:29 AM EST I called again this morning, I had to [facility] requesting info again [facility] [id number] Miscellaneous Notes* Telephone Encounter - Susan Young MA - 05/28/2024 11:29 AM EST I called again this morning, I had to [facility] requesting info again * Telephone Encounter - ROSALIND Holloway CNP - 05/28/2024 11:16 AM EST Seeing patient today. Checking in to see if any records have been received? I didn't see anything in media. Thanks! * Telephone Encounter - Dee Au RN - 03/25/2024 10:17 AM EST This RN called and LVM on [facility] asking for most recent OV note to be faxed to office. Provided phone number and fax number. * Telephone Encounter - Dee Au RN - 03/25/2024 8:[address] Davis [facility] office: [phone] Office does not open until 10 on Tuesdays. Will call back. * Telephone Encounter - ROSALIND Holloway CNP - 03/24/2024 3:59 PM EST Patient seeing Dr Davis in [facility] for IVIG infusions. Please obtain most recent visit notes and notify me when received. Thanks! documented in this encounterSEast [facility] City [id number] Telephone encounter Note* Telephone Encounter - ROSALIND Holloway CNP - 05/28/2024 11:16 AM EST Seeing patient today. Checking in to see if any records have been received? I didn't see anything in media. Thanks! [facility] [id number] History of Present illness Narrative* ROSALIND Holloway CNP - 05/28/2024 11:10 AM EST Images from the original note were not included. [facility] Pulmonary Medicine [address] [place] [address] Date of Service: 05/28/2024 Visit type: An Established patient Chief Complaint/Reason for Referral: Follow-up, COPD (EMPHYSEMA-O2(JONATHAN)), and Wheezing SUBJECTIVE History of Present Illness: Dayana Briggs ( 1950) is a 74 y.o. 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 Last seen by pulmonary 03/24/24. Patient has recurrent issue with poorly controlled asthma/COPD. She has been treated with prednisone on 9 separate occasions in the last 6 months, by multiple providers. She has also been treated with multiple rounds of antibiotics in recent months. Doxycycline 03/2024, zpak 04/2024, and levaquin 04/24 025. Patient reports she generally feels better (but not well) while on prednisone, then symptoms returnafter a week or so of being off. Symptoms also seem to be exacerbated by getting IVIG infusions. She sees immunology in [facility]. She takes Trelegy as prescribed, but does not feel it really helps her. She also uses nebs without much relief. She declined further evaluation to pursue BLVR. She also reports she was treated with dupixent by her florist's decorator but she had a bad reaction to it and had to stop. She has also tried zafirlukast, which is expensive and not covered by insurance, but she does not find clinical benefit with use. ACT: CAT: MMRC Dyspnea Scale: Grade Description of Breathlessness [...] Diagnosis Date Asthma 2006 Breast cancer screening 02/2024 COPD (chronic obstructive pulmonary disease) ([facility]) 2014 Home O2 since 2015 Ex-smoker 2008 GERD (gastroesophageal reflux disease) H/O colonoscopy 2018 due 2028 History of idiopathic thrombocytopenic purpura 2005 resolved History of shingles 2020 left CN V Hypertension 2004 Hypothyroidism IBS (irritable bowel syndrome) 2000 per [facility] Immunoglobulin deficiency (HCC) 2007 [facility] [place] Nodule of upper lobe of right lung no change per 2023 LDCT Osteoporosis [address] Field Renal stones SURGICAL HISTORY: Past Surgical History: Procedure Laterality Date APPENDECTOMY BREAST BIOPSY Right 2010 benign BREAST CYST ASPIRATION Left 2008 benign CATARACT EXTRACTION W/ INTRAOCULAR LENS IMPLANT Bilateral CHOLECYSTECTOMY 2013 COLONOSCOPY 10/2018 Dr. Argueta- due 2028 COLONOSCOPY 2008 Turowski DENTAL SURGERY dentures HEMORRHOID SURGERY 1994 MENISCECTOMY Left 2016 Damico PARTIAL HYSTERECTOMY 1994 DUB- Ovaries intact SKIN BIOPSY from left arm, under right breast, and forehead. All negative for CA TONSILLECTOMY (HISTORICAL) ALLERGIES: Allergies Allergen Reactions Lisinopril Shortness of breath Cough and wheezing Other Other Envirmental allergies trees pollen rag weed, douglass Ampicillin Other reaction(s): Other, stomach issues Aspirin Hives Other reaction(s): U Other reaction(s): U Codeine Other reaction(s): GI Upset sleepy, dizzy Erythromycin unknown reaction Levaquin [Levofloxacin] Other Joint pain (ankles) Misc. Sulfonamide Containing Compounds Penicillins Other reaction(s): Other (See Comments) Upset [...] of breath., Disp: 75 mL, Rfl: 2 amLODIPine (Norvasc) 5 MG tablet, Take 1 tablet (5 mg) by mouth daily., Disp: 90 tablet, Rfl: 1 atorvastatin (Lipitor) 10 MG tablet, Take 1 tablet (10 mg) by mouth daily., Disp: 90 tablet, Rfl: 3 cholecalciferol (Vitamin D-3) 25 MCG (1000 UT) capsule, Take 1 capsule by mouth in the morning and 1 capsule before bedtime., Disp: , Rfl: Irwdcrxgpfu-Ideafgjzr-Jmfjqk (Trelegy Ellipta) 200-62.5-25 MCG/ACT aerosol powder , Inhale 1 puff daily., Disp: 1 each, Rfl: 5 ipratropium (Atrovent) 0.02 % nebulizer solution, INHALE THE CONTENTS OF 1 VIAL VIA NEBULIZER 2 TIMES DAILY, Disp: , Rfl: ipratropium-albuterol (Duo-Neb) 0.5-2.5 mg/3 mL nebulizer solution, Take 3 mL by nebulization 4 times daily as needed for wheezing., Disp: 30 mL, Rfl: 2 levoFLOXacin (Levaquin) 500 MG tablet, Take 1 tablet (500 mg) by mouth daily for 10 days., Disp: 10tablet, Rfl: 0 levothyroxine (Synthroid, Levoxyl) 100 MCG tablet, Take 1 tablet (100 mcg) by mouth daily for 360 doses., Disp: 90 tablet, Rfl: 3 omeprazole (PriLOSEC) [address] capsule, Take 1 capsule (20 mg) by mouth daily., Disp: 90 capsule, Rfl: 3 Potassium Gluconate 2.5 MEQ tablet, Take by mouth., Disp: , Rfl: predniSONE (Deltasone) 20 MG tablet, Take 3 tabs (60mg) daily for 5 days, then take 2 tabs (40mg) daily for 2 days, then take 1 tab (20mg) daily for 2 days., Disp: 21 tablet, Rfl: 0 sodium chloride 7 % nebulizer solution nebulizer solution, Take 4 mL by nebulization 2 times daily as needed (chest congestion)., Disp: 360 mL, Rfl: 2 spironolactone (Aldactone) 25 MG tablet, Take 1 tablet (25 mg) by mouth daily., Disp: 90 tablet, Rfl: 1 zafirlukast (Accolate) 20 MG tablet, Take 20 mg by mouth in the morning and 20 mg before bedtime., Disp: , Rfl: albuterol 108 (90 Base) MCG/ACT inhaler, Inhale 2 puffs every 4 hours as needed for shortness of breath., Disp: 1 each, Rfl: 2 Knfpxpxthvy-Qrrczctih-Clksyd (Trelegy Ellipta) 200-62.5-25 MCG/ACT aerosol powder , Inhale 1 puff daily. Rinse mouth with water after use to reduce aftertaste and incidence of candidiasis. Do not swallow., Disp: 2 each, Rfl: 3 predniSONE (Deltasone) 10 MG tablet, Take 4 tabs (40mg) daily for 3 days, then 3 tabs (30mg) daily for 3 days, 2 tabs (20mg) daily for 3 days, 1 tab (10 mg) daily for 3 days., Disp: 30 tablet, Rfl: 0 Current Facility-Administered Medications: albuterol (2.5 MG/3ML) 0.083% nebulizer solution 2.5 mg, 2.5 mg, Nebulization, Once, Jazmin Moy PA-C ipratropium (Atrovent) 0.02 % nebulizer solution 0.5 mg, 0.5 mg, Nebulization, Once, Jazmin Moy PA-C SOCIAL HISTORY: Social History Tobacco Use Smoking status: Former Current packs/day: 0.00 Average packs/day: 2.0 packs/day for 53.2 years (106.4 ttl pk-yrs) Types: Cigarettes Start date: 09[birth year]14/1955 Quit date: 12/01/2008 Years since quittin.4 Smokeless tobacco: Never Substance Use Topics Alcohol use: No Alcohol/week: 0.0 standard drinks of alcohol FAMILY HISTORY: Family History Problem Relation Name Age of Onset High Blood Pressure Mother Crome alive age 98 Rheum arthritis Father Heart disease Father age 59 Other ([address]46) Sister adrenal issues Skin cancer Sister COPD Brother Josh age 65, smoker Lung cancer Brother Josh 70 Prostate cancer Brother 60 No Known Problems Brother No Known Problems Brother Breast cancer Paternal Cousin 35 REVIEW OF SYSTEMS: Review of Systems Constitutional: Positive for activity change. Negative for appetite change, chills, fatigue, fever and unexpected weight change. HENT: Positive for congestion. Negative for postnasal drip, rhinorrhea, sneezing and sore throat. Respiratory: Positive for cough, shortness of breath and wheezing (improved some). Negative for apnea and chest tightness. Cardiovascular: Negative for chest pain, palpitations and leg swelling. Allergic/Immunologic: Negative for environmental allergies. Psychiatric/Behavioral: Negative for sleep disturbance. VITAL SIGNS: BP 134/85 Pulse 86 Temp 36.5 C (97.7 F) (Temporal) Ht 5' (1.524 m) Wt 161 lb 3.2 oz (73.1 kg) SpO2 94% Comment: 2.5Lp BMI 31.48 kg/m PHYSICAL EXAM: Physical Exam Constitutional: General: She is not in acute distress. Appearance: She is ill-appearing. Cardiovascular: Rate and Rhythm: Normal rate and regular rhythm. Heart sounds: No murmur heard. Pulmonary: Effort: No respiratory distress. Breath sounds: Decreased air movement present. Wheezing and rhonchi present. No rales. Skin: General: Skin is warm and dry. Capillary Refill: Capillary refill takes less than 2 seconds. Neurological: Mental Status: She is alert. Psychiatric: Mood and Affect: Mood normal. Behavior: Behavior normal. DATA REVIEWED: PFT's--04/2023 CXR--11/2023 FINDINGS: The cardiomediastinal silhouette is within normal limits. Known right apical lung nodule measures approximately 1.4 cm. There is lung hyperinflation, flattening of the hemidiaphragms and coarsening of the interstitium. No focal consolidation, pleural effusion or pneumothorax. No acute osseous abnormality is demonstrated. Advanced degenerative changes of the spine and shoulders are seen. Chronic deformities of the right glenohumeral joint are noted. IMPRESSION: No acute cardiopulmonary abnormality identified. COPD changes. Redemonstration of known right apical pulmonary nodule. CT lung screening--05/2023 FINDINGS: Pulmonary nodules: *All nodule measurements are mean axial diameter and saved on lobato images* (6:101) 12 x 9 mm nodule within the lateral right upper lobe is UNCHANGED. No new pulmonary nodules or masses. Lungs: The lungs are clear with no acute infiltrate or effusion. The tracheobronchial tree remains patent.Moderate upper lobe predominant centrilobular emphysematous changes. Mediastinum: Normal heart size with no pericardial effusion. Aorta and pulmonary arteries normal in caliber. No enlarged mediastinal, hilar, or axillary lymph nodes. Thyroid and Esophagus: Normal. Upper Abdomen: Normal Soft tissues and Osseous structures: Severe degenerative changes of the right glenohumeral joint. Multiple healed right-sided rib fractures. IMPRESSION: Unchanged 12 x 9 mm nodule lateral right upper lobe. No new pulmonary nodules or masses. Moderate upper lobe predominant centrilobular emphysematous changes. ASSESSMENT CATEGORY: Lung-RADS Assessment Category 2 - Benign appearance or behavior. Recommend continued annual low-dose screening CT in 12 months. PET/CT--01/27/21 NECK AND CHEST: There is a noncalcified nodule within the lateral aspect of the right upper lobe measuring 1.3 cm in greatest diameter on the low-dose CT images. This nodule demonstrates mild FDG uptake (maximal SUV1.7), less than typically expected for malignancy. No additional FDG avid pulmonary nodules are identified. There are moderate emphysematous changes. No FDG avid lymphadenopathy is seen within the neck or chest. ABDOMEN AND PELVIS: No abnormal FDG accumulation is seen within the abdomen or pelvis. On the low- dose CT images, a right-sided spigelian type hernia is noted containing nondilated loops of small bowel. MUSCULOSKELETAL: Unremarkable. No evidence of osseous metastatic disease. IMPRESSION: Noncalcified nodules in the right upper lobe demonstrates mild FDG accumulation, less than typically expected for malignancy. Routine CT follow-up is recommended to ensure stability. TTE--01/10/24 Left Ventricle: Left ventricle size is normal. Normal wall thickness. Normal left ventricular systolic function. EF by 2D Simpsons Biplane is 72%. Normal wall motion. Elevated left ventricular filling pressure. Right Ventricle: Right ventricle size is normal. Normal systolic function. Aortic Valve: No stenosis. AV mean gradient is 4 mmHg. AV peak gradient is 8 mmHg. LVOT:AV VTI Index is 0.77. LVOT diameter is 2.0 cm. AV area by continuity VTI is 2.3 cm2. Stroke volume index is 46.5 mL/m2. Tricuspid Valve: Mild (1+) regurgitation. Normal hepatic vein systolic flow. Normal RVSP. RVSP is 25 mmHg. Pulmonic Valve: Trace regurgitation. Interatrial Septum: No interatrial shunt visualized on color Doppler. Grade 0 Absence of bubbles. Agitated saline study was negative with and without provocation. ASSESSMENT and PLAN COPD exacerbation -currently appears to be in acute exacerbation. No fever or chills, no prodiuctive cough, so will hold off antibiotics at this time. Treat with 12 day prednisone taper for now Centrilobular emphysema (CMS/HCC) (HCC) -moderate to severe changes on CT imaging. PFTs showing severe obstruction with +BD response, hyperinflation, air trapping and mildly reduced gas exchange -Patient is optimized on high dose Trelegy. -Will add ohtuvayre nebs to further optimize -We previously discussed pursuing endobronchial valve procedure, patient has discussed this with her family and has opted not to pursue this at this time. -patient has had repeated exacerbations, requiring use of steroids 9+ times in the last 6 months. We discussed that she may be a candidate for dupixent, however patient reports she has tried this previously and had a reaction to it. Will plan to discuss with Dr. Davis Wheezing -Patient notes increased shortness of breath and wheezing after nearly every IVIG infusion each month. Approximately 10% of people have reported wheezing as a side effect. No immunology notes on file. I have requested this to review on multiple occasions, without success. I will reach out to the office myself to try to speak with the provider about a plan moving forward. 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 Following with Dr. Davis in [place]. I haverequested records multiple times as above Chronic respiratory failure with hypoxia (CMS/HCC) (HCC) -Patient should continue to use supplemental O2 to keep pulse ox 88 to 92% Lung nodule -1.5 x 1.2 x 1.2 cm in RUL on CT chest 12/2020, not PET avid on PET CT 01/2021 -CT lung screen done in 05/2023 shows stable 12 x 9 mm nodule in the right upper lobe plan to repeatimaging annually per guidelines. Imaging due 05/2024. Order placed today, for HRCT to also evaluate for bronchiectasis Personal history of tobacco use, presenting hazards to health -Patient has greater than 046-suhz-ohfe history, quit in 2008. CT imaging as above FOLLOW UP: Follow up in about 3 months (around 08/25/2024), or if symptoms worsen or fail to improve. Patient will have next visit with physician. ROSALIND Clark CNP Pulmonary & Sleep Medicine Portions of the information within this encounter were entered using an electronic dictation system. Best attempts were made to proofread the information prior to note completion. Despite the review of the information, some errors may remain. If there are questions related to the information contained within the note please contact the signing provider directly. documented in this [facility]02-05-2025 Instructions* Patient Instructions* Jaja Noel - 05/28/2024 11:10 AM EST YOUR APPOINTMENT TODAY WAS WITH [facility], COPD CLINIC, PULMONARY AND SLEEP MEDICINE OFFICE. PLEASE CALL OUR OFFICE AT [phone] for our [place] office location or [phone] for our [place] location, IF YOU HAVE NOT RECEIVED YOUR [...] to make improvements. COVID-19 VACCINATION INFORMATION: PH. [phone] [email or web address] [facility] Central Scheduling [phone] [facility] Sleep Scheduling [phone] documented in this [facility]01-27-2025 Evaluation + Plan note* Assessment & Plan Note - Jazmin Moy PA-C - 05/19/2024 3:35 PM ESTAssociated Problem(s): Mixed hyperlipidemia - Chronic stable continue on Lipitor 10 mg nightly. [facility] [id number] Miscellaneous Notes* Assessment & Plan Note - Jazmin Moy PA-C - 05/19/2024 3:35 PM ESTAssociated Problem(s): Mixed hyperlipidemia - Chronic stable continue on Lipitor 10 mg nightly. * Assessment & Plan Note - Jazmin Moy PA-C - 05/19/2024 3:34 PM ESTAssociated Problem(s): Hypothyroidism - Chronic stable continue on levothyroxine 100 mcg daily * Assessment & Plan Note - Jazmin Moy PA-C - 05/19/2024 3:34 PM ESTAssociated Problem(s): Hypertension - Chronic stable continue on spironolactone 25 mg daily. documented in this [facility]01-27-2025 Evaluation + Plan note* Assessment & Plan Note - Jazmin Moy PA-C - 05/19/2024 3:34 PM ESTAssociated Problem(s): Hypothyroidism - Chronic stable continue on levothyroxine 100 mcg daily [facility] [id number] Evaluation + Plan note* Assessment & Plan Note - Jazmin Moy PA-C - 05/19/2024 3:34 PM ESTAssociated Problem(s): Hypertension - Chronic stable continue on spironolactone 25 mg daily. [facility] [id number] History of Present illness Narrative* Jazmin Moy PA-C - 05/19/2024 2:40 PM EST Images from the original note were not included. [facility] - [address] [facility] [address] Dept: [phone] Dept Loc: [phone] Visit type: Established Patient Reason for Visit: Nasal Congestion (For about 5 days) Assessment and Plan 1. COPD exacerbation (HCC) Comments: Acute exacerbation of chronic COPD emphysema. Orders: - predniSONE (Deltasone) 20 MG tablet; Take 3 tabs (60mg) daily for 5 days, then take 2 tabs (40mg)daily for 2 days, then take 1 tab (20mg) daily for 2 days., Normal - Comprehensive metabolic panel - CBC auto differential - levoFLOXacin (Levaquin) 500 MG tablet; Take 1 tablet (500 mg) by mouth daily for 10 days., Starting Sun05/19/2024, Until Lana 05/29/2024, Normal 2. Primary hypertension Assessment & Plan: - Chronic stable continue on spironolactone 25 mg daily. Orders: - spironolactone (Aldactone) 25 MG tablet; Take 1 tablet (25 mg) by mouth daily., Starting Sun05/19/2024, Normal 3. Hypothyroidism, unspecified type Comments: Stable, continue Synthroid Assessment & Plan: - Chronic stable continue on levothyroxine 100 mcg daily Orders: - levothyroxine (Synthroid, Levoxyl) 100 MCG tablet; Take 1 tablet (100 mcg) by mouth daily for 360doses., Starting 05/19/2024, Until Lana 05/14/2025, Normal 4. Mixed hyperlipidemia Comments: Stable, continue Lipitor Assessment & Plan: - Chronic stable continue on Lipitor 10 mg nightly. Orders: - atorvastatin (Lipitor) 10 MG tablet; Take 1 tablet (10 mg) by mouth daily., Starting 05/19/2024, Until Lana 05/14/2025, Normal No follow-ups on file. Subjective HPI this is a 74-year-old female well-known to the office with a history of COPD emphysema chronic hypoxic respiratory failure on oxygen GERD, hypertension, IgG deficiency and a former tobacco abuserfollows up with pulmonology contacted the call center today for immediate same-day appointment for concerns that she fighting a cold. Patient reports that she thinks she has a sinus infection. Reports that she has a history of COPD had a dose of Levaquin and prednisone left over that she took butis not any better. Given a zpack a few weeks ago and really never helped given prednisone. Had blood work at [facility] a few months ago, but patient is agreeable to get blood work today statesshe is not sure if she 100% had blood work done several months ago she thinks they did but there isbeen no documented kidney function or liver enzymes in the past year she is agreeable to get it checked today she denies any abdominal pain her primary concern is her ongoing issues with COPD and cough congestion wheezing. She is continuing to use her Trelegy with some benefit in the past Review of Systems Constitutional: Negative for chills and fever. HENT: Positive for congestion. Negative for sore throat and trouble swallowing. Respiratory: Positive for cough, chest tightness, shortness of breath and wheezing. Cardiovascular: Negative [...] GI Upset sleepy, dizzy Erythromycin unknown reaction Levaquin [Levofloxacin] Other Joint pain (ankles) Misc. Sulfonamide Containing Compounds Penicillins Other reaction(s): Other (See Comments) Upset stomach Other reaction(s): Other Other reaction(s): U Other reaction(s): Other Other reaction(s): Other, stomach issues Other reaction(s): stomach issues, U unknown reaction Sulfa Antibiotics Cephalexin Hives and Rash Other reaction(s): Hives Other reaction(s): U Other reaction(s): Hives Other reaction(s): Hives Other reaction(s): Hives, U Current Outpatient Medications Medication Sig Dispense Refill albuterol (2.5 MG/3ML) 0.083% nebulizer solution Take 3 mL (2.5 mg) by nebulization every 4 hours as needed for wheezing or shortness of breath. 75 mL 2 albuterol 108 (90 Base) MCG/ACT inhaler Inhale 2 puffs every 4 hours as needed for shortness of breath. 1 each 2 amLODIPine (Norvasc) 5 MG tablet Take 1 tablet (5 mg) by mouth daily. 90 tablet 1 cholecalciferol (Vitamin D-3) 25 MCG (1000 UT) capsule Take 1 capsule by mouth in the morning and 1capsule before bedtime. Kirmiqeyhcv-Hfmhrrjyb-Rktumt (Trelegy Ellipta) 200-62.5-25 MCG/ACT aerosol powder Inhale 1 puff daily. 1 each 5 Riiceqdnmep-Qtxwtkglr-Qzaark (Trelegy Ellipta) 200-62.5-25 MCG/ACT aerosol powder Inhale 1 puff daily. Rinse mouth with water after use to reduce aftertaste and incidence of candidiasis. Do not swallow. 1 each 0 ipratropium (Atrovent) 0.02 % nebulizer solution INHALE THE CONTENTS OF 1 VIAL VIA NEBULIZER 2 TIMES DAILY ipratropium-albuterol (Duo-Neb) 0.5-2.5 mg/3 mL nebulizer solution Take 3 mL by nebulization 4 times daily as needed for wheezing. 30 mL 2 omeprazole (PriLOSEC) [address] capsule Take 1 capsule (20 mg) by mouth daily. 90 capsule 3 Potassium Gluconate 2.5 MEQ tablet Take by mouth. sodium chloride 7 % nebulizer solution nebulizer solution Take 4 mL by nebulization 2 times daily as needed (chest congestion). 360 mL 2 zafirlukast (Accolate) 20 MG tablet Take 20 mg by mouth in the morning and 20 mg before bedtime. atorvastatin (Lipitor) 10 MG tablet Take 1 tablet (10 mg) by mouth daily. 90 tablet 3 levoFLOXacin (Levaquin) 500 MG tablet Take 1 tablet (500 mg) by mouth daily for 10 days. 10 tablet 0 levothyroxine (Synthroid, Levoxyl) 100 MCG tablet Take 1 tablet (100 mcg) by mouth daily for 360 doses. 90 tablet 3 predniSONE (Deltasone) 20 MG tablet Take 3 tabs (60mg) daily for 5 days, then take 2 tabs (40mg) daily for 2 days, then take 1 tab (20mg) daily for 2 days. 21 tablet 0 spironolactone (Aldactone) 25 MG tablet Take 1 tablet (25 mg) by mouth daily. 90 tablet 1 Current Facility-Administered Medications Medication Dose Route Frequency Provider Last Rate Last Admin albuterol (2.5 MG/3ML) 0.083% nebulizer solution 2.5 mg 2.5 mg Nebulization Once Jazmin Moy PA-C ipratropium (Atrovent) 0.02 % nebulizer solution 0.5 mg 0.5 mg Nebulization Once Jazmin Moy PA-C Past Medical History: Diagnosis Date Asthma 2006 Breast cancer screening 02/2024 COPD (chronic obstructive pulmonary disease) ([facility]LY [facility]) 2014 Home O2 since 2014 Ex-smoker 2008 GERD (gastroesophageal reflux disease) H/O colonoscopy 2018 due 2028 History of idiopathic thrombocytopenic purpura 2005 resolved History of shingles 2020 left CN V Hypertension 2004 Hypothyroidism IBS (irritable bowel syndrome) 2000 per [facility] Immunoglobulin deficiency ([facility]) 2007 [place] Nodule of upper lobe of right lung no change per 2023 LDCT Osteoporosis [address] infusion [address] Field Renal stones Social History Tobacco Use Smoking status: Former Current packs/day: 0.00 Average packs/day: 2.0 packs/day for 53.2 years (106.4 ttl pk-yrs) Types: Cigarettes Start date: 09/14/1953 Quit date: 12/01/2008 Years since quittin.4 Smokeless tobacco: Never Substance Use Topics Alcohol use: No Alcohol/week: 0.0 standard drinks of alcohol Past Surgical History: Procedure Laterality Date APPENDECTOMY BREAST BIOPSY Right 2010 benign BREAST CYST ASPIRATION Left 2007 benign CATARACT EXTRACTION W/ INTRAOCULAR LENS IMPLANT Bilateral CHOLECYSTECTOMY 2012 COLONOSCOPY 10/2018 Dr. Argueta- due 2028 COLONOSCOPY 2008 Turowski DENTAL SURGERY dentures HEMORRHOID SURGERY 1995 MENISCECTOMY Left 2016 Damico PARTIAL HYSTERECTOMY 1994 DUB- Ovaries intact SKIN BIOPSY from left arm, under right breast, and forehead. All negative for CA TONSILLECTOMY (HISTORICAL) Family History Problem Relation Name Age of Onset High Blood Pressure Mother Phani alive age 98 Rheum arthritis Father Heart disease Father age 59 Other ([id number]) Sister adrenal issues Skin cancer Sister COPD Brother Josh age 65, smoker Lung cancer Brother Josh 70 Prostate cancer Brother 60 No Known Problems Brother No Known Problems Brother Breast cancer Paternal Cousin 35 Objective BP 130/80 Pulse (!) 112 Temp 36.7 C (98.1 F) (Temporal) Ht 5' (1.524 m) Wt [...] Heart sounds: Normal heart sounds. Pulmonary: Effort: No respiratory distress. Breath sounds: No stridor. Wheezing and rales present. Comments: Mild accessory muscle use but no signs of conversational dyspnea outside her normal realmof being on continuous oxygen in conversation. Abdominal: General: Bowel sounds are normal. There is no distension. Palpations: Abdomen is soft. There is no mass. Tenderness: There is no abdominal tenderness. There is no guarding. Musculoskeletal: Cervical back: Normal range of motion and neck supple. Right lower leg: No edema. Left lower leg: No edema. Skin: General: Skin is warm and dry. Neurological: Mental Status: She is alert. Psychiatric: Mood and Affect: Mood normal. Data Reviewed and Summarized Labs: Imaging/Testing: Jazmin Moy PA-C 05/19/2024 Please note that portions of this note may have been completed with voice recognition software. Documentation reviewed prior to signing but minor errors in billiard table repairer may have occurred. documented in this [facility]01-27-2025 Telephone encounter Note* Telephone Encounter - Angie Shi RN - 05/19/2024 9:51 AM EST S: Patient spoke with [facility] nurse regarding sinus drainage [phone] Provider: Dr. Roman Practice Name: [facility] Joseph B: Onset of symptoms/concern 5 days A: Patient states she thinks she has a sinus infection. She complains of congestion in face, chest and ears for the last 5 days. History of COPD. States she had a dose of levaquin 250mg and prednisone leftover that she took. Is wheezing but states she always wheezes from her COPD. Denies fever today, difficulty breathing, chest pain. R: Appointment scheduled for patient for today at 2:40 with Jazmin Moy. Patient understands care advice. No further needs at this time. Patient instructed to call back with new or worsening symptoms. Reason for Disposition Earache Protocols used: Sinus Pain or Tzpdcyheku-ASSTR-YU [facility] [id number] Miscellaneous Notes* Telephone Encounter - Angie Shi RN - 05/19/2024 9:51 AM EST S: Patient spoke with [facility] nurse regarding sinus drainage [phone] Provider: Dr. Roman Practice Name: Patrice Joseph B: Onset of symptoms/concern 5 days A: Patient states she thinks she has a sinus infection. She complains of congestion in face, chest and ears for the last 5 days. History of COPD. States she had a dose of levaquin 250mg and prednisone leftover that she took. Is wheezing but states she always wheezes from her COPD. Denies fever today, difficulty breathing, chest pain. R: Appointment scheduled for patient for today at 2:40 with Jazmin Moy. Patient understands care advice. No further needs at this time. Patient instructed to call back with new or worsening symptoms. Reason for Disposition Earache Protocols used: Sinus Pain or Atoozaaskk-ZTLRC-JR documented in this [facility]01-16-2025 Telephone encounter Note* Telephone Encounter - Susan Young MA - 05/08/2024 7:58 AM EST Canceled appt [id number] Miscellaneous Notes* Telephone Encounter - Susan Young MA - 05/08/2024 7:58 AM EST Canceled appt * Telephone Encounter - Berna HebertLauren Corrales - 05/08/2024 7:12 AM EST Name of Caller: Dayana Contact Phone Number: [phone] Reason for Appointment: pt calling to cancel her appt today due to snow. Please call to re-schedule Office Name: [facility] Medication Refills need, if any: Medication Name: documented in this encounterSEast [facility] [id number] Telephone encounter Note* Telephone Encounter - Berna HebertLauren Corrales - 05/08/2024 7:12 AM EST Name of Caller: Dayana Contact Phone Number: [phone] Reason for Appointment: pt calling to cancel her appt today due to snow. Please call to re-schedule Office Name[facility] Medication Refills need, if any: Medication Name: [facility] [id number] Telephone encounter Note* Telephone Encounter - Elba Alvarenga - 05/02/2024 2:03 PM EST Name of Caller: Dayana Contact Reason for Appointment: Pt states she would like to r/s her past cancelled appt. Please advise. Office Name: Pulm [facility] [id number] Miscellaneous Notes* Telephone Encounter - Elba Alvarenga - 05/02/2024 2:03 PM EST Name of Caller: Dayana Contact Reason for Appointment: Pt states she would like to r/s her past cancelled appt. Please advise. Office Name: Pulm documented in this [facility]01-06-2025 Telephone encounter Note* Telephone Encounter - Joyce Poole RN - 04/28/2024 2:00 PM EST S: Patient spoke with [facility] nurse regarding cough B: Onset of symptoms/concern started 3 days ago, history COPD A: Patient states she has a cold, cough and nose is running. This started 3 days ago. Patient states she does not want it to get worse because she has COPD. Patient states if she walks her pulse ox drops but if she is sitting it is 96- 98%. Shortness of breath is slightly worse than it normally is. Denies any shortness of breath at rest or any chest pain. Denies any fevers and has not tested for COVID. Denies any known COVID contacts. R: Appointment scheduled for Sunday at 9am with Jazmin. Insurance verified. Patient given care advice per protocol. Patient understands care advice. No further needs at this time. Patient instructed to call back with new or worsening symptoms. Reason for Disposition [1] MILD difficulty breathing (e.g., minimal/no SOB at rest, SOB with walking, pulse <100) AND [2] still present when not coughing Protocols used: Cough - Acute Alkdettgki-NKVOD-FO [facility] [id number] Miscellaneous Notes* Telephone Encounter - Joyce Poole RN - 04/28/2024 2:00 PM EST S: Patient spoke with [facility] nurse regarding cough B: Onset of symptoms/concern started 3 days ago, history COPD A: Patient states she has a cold, cough and nose is running. This started 3 days ago. Patient states she does not want it to get worse because she has COPD. Patient states if she walks her pulse ox drops but if she is sitting it is 96- 98%. Shortness of breath is slightly worse than it normally is. Denies any shortness of breath at rest or any chest pain. Denies any fevers and has not tested for COVID. Denies any known COVID contacts. R: Appointment scheduled for Sunday at 9am with Jazmin. Insurance verified. Patient given care advice per protocol. Patient understands care advice. No further needs at this time. Patient instructed to call back with new or worsening symptoms. Reason for Disposition [1] MILD difficulty breathing (e.g., minimal/no SOB at rest, SOB with walking, pulse <100) AND [2] still present when not coughing Protocols used: Cough - Acute Ztpirnfeve-NXACG-SV documented in this [facility]12-20-2024 Telephone encounter Note* Telephone Encounter - Abena Villagomez RN - 04/11/2024 12:57 PM EST S: Patient spoke with [facility] nurse regarding COPD flare up B: Onset of symptoms/concern 5 days A: Patient complaining of wheezing, difficulty breathing for the past several days. Denies fever. Patient states symptoms are chronic and flare up occasionally. Patient has taken Prednisone 40 MG forthe past 3 days she had on hand but ran out. Patient states she knows what she needs when this happens. Patient requesting refill of Prednisone and an antibiotic sent to pharmacy. Pharmacy and allergies verified and reviewed with patient. Patient speaking in complete sentences. No acute distress. R: Dr. Jessie fleming advised Prednisone and doxycycline prescribed she should reach out to herpulmonologist for any guidance in a few days if no better. Patient informed and verbalized understanding. Reason for Disposition Prescription refill request for ESSENTIAL medicine (i.e., likelihood of harm to patient if not taken) and triager unable to refill per department policy Protocols used: Medication Refill and Renewal Qdfz-UFZTM-MZ [facility] [id number] Miscellaneous Notes* Telephone Encounter - Abena Villagomez RN - 04/11/2024 12:57 PM EST S: Patient spoke with [facility] nurse regarding COPD flare up B: Onset of symptoms/concern 5 days A: Patient complaining of wheezing, difficulty breathing for the past several days. Denies fever. Patient states symptoms are chronic and flare up occasionally. Patient has taken Prednisone 40 MG forthe past 3 days she had on hand but ran out. Patient states she knows what she needs when this happens. Patient requesting refill of Prednisone and an antibiotic sent to pharmacy. Pharmacy and allergies verified and reviewed with patient. Patient speaking in complete sentences. No acute distress. R: Dr. Roman messaged advised Prednisone and doxycycline prescribed she should reach out to herpulmonologist for any guidance in a few days if no better. Patient informed and verbalized understanding. Reason for Disposition Prescription refill request for ESSENTIAL medicine (i.e., likelihood of harm to patient if not taken) and triager unable to refill per department policy Protocols used: Medication Refill and Renewal [id number] documented in this [facility]12-03-2024 Telephone encounter Note* Telephone Encounter - Dee Au RN - 03/25/2024 10:17 AM EST This RN called and LVM on [facility] asking for most recent OV note to be faxed to office. Provided phone number and fax number. [facility] [id number] Miscellaneous Notes* Telephone Encounter - Dee Au RN - 03/25/2024 10:17 AM EST This RN called and LVM on [facility] asking for most recent OV note to be faxed to office. Provided phone number and fax number. * Telephone Encounter - Dee Au RN - 03/25/2024 8:[address] Susan [place] [facility] office: [phone] Office does not open until 10 on Tuesdays. Will call back. * Telephone Encounter - ROSALIND Holloway CNP - 03/24/2024 3:59 PM EST Patient seeing Dr Davis in [facility] for IVIG infusions. Please obtain most recent visit notes and notify me when received. Thanks! documented in this [facility]12-03-2024 Telephone encounter Note* Telephone Encounter - Dee Au RN - 03/25/2024 8:[address] Davis [facility] office: [phone] Office does not open until 10 on Tuesdays. Will call back. [place] [id number] Telephone encounter Note* Telephone Encounter - Hilton Root - 03/24/2024 4:53 PM EST FYI NM LUNG VENTILATION PERFUSION per cx note on cx appt 04.02.24 pt doesn't want test done//12.2.24 KGK 1st attempt//mychart message//9.1.24 KGK [place] [id number] Miscellaneous Notes* Telephone Encounter - Hilton Root - 03/24/2024 4:53 PM EST FYI NM LUNG VENTILATION PERFUSION per cx note on cx appt 04.02.24 pt doesn't want test done//12.2.24 KGK 1st attempt//mychart message//9.1.24 KGK documented in this [facility]12-02-2024 Telephone encounter Note* Telephone Encounter - ROSALIND Holloway CNP - 03/24/2024 3:59 PM EST Patient seeing Dr Davis in [facility] for IVIG infusions. Please obtain most recent visit notes and notify me when received. Thanks! [facility] [id number] History of Present illness Narrative* ROSALIND Holloway CNP - 03/24/2024 10:10 AM EST Images from the original note were not included. - [facility] [address] [place] [address] Date of Service: 03/24/2024 Visit type: An Established patient Chief Complaint/Reason for Referral: Hospital Follow-up (EMPHYSEMA) SUBJECTIVE History of Present Illness: Dayana Briggs ( 1950) is a 73 y.o. 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 Patient was patiently evaluated in the emergency room at [facility], states her breathing seems to be progressively getting worse. States she has typically had increased shortness of breath forabout 1 week after IVIG infusions, usually relieved with use of prednisone. Now this shortness of breath is lasting 2+ weeks. Alternating between use of Trelegy 200 and 100, states that she does not find much difference in the dosing. Having a lot of chest congestion, states she is rattling all the time. Having difficulty bringing up phlegm. Recently prescribed Levaquin. Also taking 50 mg prednisone daily for the last 2 days, which does help some. CAT: /40 MMRC Dyspnea Scale: Grade Description of Breathlessness [...] Diagnosis Date Asthma 2006 Breast cancer screening 02/2024 COPD (chronic obstructive pulmonary disease) ([facility]) 2014 Home O2 since 2014 Ex-smoker 2008 GERD (gastroesophageal reflux disease) H/O colonoscopy 2018 due 2028 History of idiopathic thrombocytopenic purpura 2005 resolved History of shingles 2020 left CN V Hypertension 2003 Hypothyroidism IBS (irritable bowel syndrome) 2000 per [facility] Immunoglobulin deficiency ([facility]) [facility] [place] Nodule of upper lobe of right lung no change per 2023 LDCT Osteoporosis [address] infusion [address] Field Renal stones SURGICAL HISTORY: Past Surgical History: Procedure Laterality Date APPENDECTOMY BREAST BIOPSY Right 2010 benign BREAST CYST ASPIRATION Left 2007 benign CATARACT EXTRACTION W/ INTRAOCULAR LENS IMPLANT Bilateral CHOLECYSTECTOMY 2013 COLONOSCOPY 10/2018 Dr. Argueta- due 2028 COLONOSCOPY 2008 Turowski DENTAL SURGERY dentures HEMORRHOID SURGERY 1995 MENISCECTOMY Left 2016 Damico PARTIAL HYSTERECTOMY 1994 DUB- Ovaries intact SKIN BIOPSY from left arm, under right breast, and forehead. All negative for CA TONSILLECTOMY (HISTORICAL) ALLERGIES: Allergies Allergen Reactions Lisinopril Shortness of breath Cough and wheezing Other Other Envirmental allergies trees pollen rag weed, douglass Ampicillin Other reaction(s): Other, stomach issues Aspirin Hives Other reaction(s): U Other reaction(s): U Codeine Other reaction(s): GI Upset sleepy, dizzy Erythromycin unknown reaction Levaquin [Levofloxacin] Other Joint pain (ankles) Misc. Sulfonamide Containing Compounds Penicillins Other reaction(s): Other (See Comments) Upset [...] shortness of breath., Disp: 1 each, Rfl: 2 amLODIPine (Norvasc) 5 MG tablet, Take 1 tablet (5 mg) by mouth daily., Disp: 90 tablet, Rfl: 1 atorvastatin (Lipitor) 10 MG tablet, Take 1 tablet (10 mg) by mouth daily., Disp: 90 tablet, Rfl: 3 cholecalciferol (Vitamin D-3) 25 MCG (1000 UT) capsule, Take 1 capsule by mouth in the morning and 1 capsule before bedtime., Disp: , Rfl: fluconazole (Diflucan) 150 MG tablet, Take 1 tablet (150 mg) by mouth daily., Disp: 7 tablet, Rfl: 1 Fkjfuxvnbeg-Ytvcpcvqf-Mshklo (Trelegy Ellipta) 200-62.5-25 MCG/ACT aerosol powder , Inhale 1 puff daily., Disp: 1 each, Rfl: 5 Wvbrvvvjifi-Gveovqhzp-Mpuumt (Trelegy Ellipta) 200-62.5-25 MCG/ACT aerosol powder , Inhale 1 puff daily. Rinse mouth with water after use to reduce aftertaste and incidence of candidiasis. Do not swallow., Disp: 1 each, Rfl: 0 ipratropium (Atrovent) 0.02 % nebulizer solution, INHALE [...] for 180 doses., Disp: 90 tablet, Rfl: 3 omeprazole (PriLOSEC) [address] capsule, Take 1 capsule (20 mg) by mouth daily., Disp: 90 capsule, Rfl: 3 Potassium Gluconate 2.5 MEQ tablet, Take by mouth., Disp: , Rfl: predniSONE (Deltasone) 10 MG tablet, Take 5 tabs for 5 days, then 4 tabs for 2 days, then 3 tabs for 2 days, then 2 tabs for 2 days, then one q day till gone, Disp: 45 tablet, Rfl: 0 spironolactone (Aldactone) 25 MG tablet, Take 1 tablet (25 mg) by mouth daily., Disp: 90 tablet, Rfl: 1 zafirlukast (Accolate) 20 MG tablet, Take 20 mg by mouth in the morning and 20 mg before bedtime., Disp: , Rfl: fluconazole (Diflucan) 100 MG tablet, Take 200 mg on the first day, then 100 mg daily for the next 6 days., Disp: 8 tablet, Rfl: 0 predniSONE (Deltasone) 10 MG tablet, Take 4 tabs (40mg) daily for 3 days, then 3 tabs (30mg) daily for 3 days, 2 tabs (20mg) daily for 3 days, 1 tab (10 mg) daily for 3 days., Disp: 30 tablet, Rfl: 0 sodium chloride 7 % nebulizer solution nebulizer solution, Take 4 mL by nebulization 2 times daily as needed (chest congestion)., Disp: 360 mL, Rfl: 2 Current Facility-Administered Medications: albuterol (2.5 MG/3ML) 0.083% nebulizer solution 2.5 mg, 2.5 mg, Nebulization, Once, Jazmin Moy PA-C ipratropium (Atrovent) 0.02 % nebulizer solution 0.5 mg, 0.5 mg, Nebulization, Once, Jazmin Moy PA-C SOCIAL HISTORY: Social History Tobacco Use Smoking status: Former Current packs/day: 0.00 Average packs/day: 2.0 packs/day for 53.2 years (106.4 ttl pk-yrs) Types: Cigarettes Start date: 09/14/1955 Quit date: 12/01/2008 Years since quittin.3 Smokeless tobacco: Never Substance Use Topics Alcohol use: No Alcohol/week: 0.0 standard drinks of alcohol FAMILY HISTORY: Family History Problem Relation Name Age of Onset High Blood Pressure Mother Crome alive age 98 Rheum arthritis Father Heart disease Father age 59 Other ([id number]) Sister adrenal issues Skin cancer Sister COPD Brother Josh age 65, smoker Lung cancer Brother Josh 70 Prostate cancer Brother 60 No Known Problems Brother No Known Problems Brother Breast cancer Paternal Cousin 35 REVIEW OF SYSTEMS: Review of Systems Constitutional: Positive for activity change. Negative for appetite change, chills, fatigue, fever and unexpected weight change. HENT: Positive for congestion. Negative for postnasal drip, rhinorrhea, sneezing and sore throat. Respiratory: Positive for cough, shortness of breath and wheezing (improved some). Negative for apnea and chest tightness. Cardiovascular: Negative for chest pain, palpitations and leg swelling. Allergic/Immunologic: Negative for environmental allergies. Psychiatric/Behavioral: Negative for sleep disturbance. VITAL SIGNS: BP 124/71 Pulse 96 Temp 36.6 C (97.8 F) (Temporal) Ht 5' (1.524 m) Wt 158 lb 12.8 oz (72 kg) SpO2 98% Comment: 2Lp BMI 31.01 kg/m PHYSICAL EXAM: Physical Exam Constitutional: General: She is not in acute distress. Appearance: She is not ill-appearing. Cardiovascular: Rate and Rhythm: Normal rate and regular rhythm. Heart sounds: No murmur heard. Pulmonary: Effort: No respiratory distress. Breath sounds: Decreased air movement present. No wheezing, rhonchi or rales. Skin: General: Skin is warm and dry. Capillary Refill: Capillary refill takes less than 2 seconds. Neurological: Mental Status: She is alert. Psychiatric: Mood and Affect: Mood normal. Behavior: Behavior normal. DATA REVIEWED: PFT's--04/2023 Spirometry Units Pred PreDrug Pre%Pred Post Post%Pred %Change FVC L,btps 2.79 1.84 66. 2.47 89. 34. FEV1 L,btps 2.11 0.65 31. 0.70 33. 9. FEV1/FVC (%) % 76. 35. 46. 28. 37. -19. LAD26-36% L/s 1.83 0.17 9. 0.17 9. 0. [...] /MIP cmH2O -68.81 PEmax /MEP cmH2O 90.11 BRANCH SERVICE ASSOCIATE NOTES Many attempts. No consistent results. Best [...] a spacer that was instructed and dispensed. 79204- PRE/[place] [address]- DLCO 05163- FRC GAS Tests to perform: [id number] - FULL PFT STUDY WITH BRONCHODILATOR PHYSICIAN [...] is unremarkable. No supraclavicular lymphadenopathy. MEDIASTINUM AND PATY: No mediastinal lymphadenopathy. No hilar lymphadenopathy, within [...] This nodule demonstrates mild FDG uptake (maximal SUV1.7), less than typically expected for malignancy. No additional FDG avid pulmonary nodules are identified. There are moderate emphysematous changes. No FDG avid lymphadenopathy is seen within the neck or chest. ABDOMEN AND PELVIS: No abnormal FDG accumulation is seen within the abdomen or pelvis. On the low- dose CT images, a right-sided spigelian type hernia is noted containing nondilated loops of small bowel. MUSCULOSKELETAL: Unremarkable. No evidence of osseous metastatic disease. IMPRESSION: Noncalcified nodules in the right upper lobe demonstrates mild FDG accumulation, less than typically expected for malignancy. Routine CT follow-up is recommended to ensure stability. TTE--01/10/24 Left Ventricle: Left ventricle size is normal. Normal wall thickness. Normal left ventricular systolic function. EF by 2D Simpsons Biplane is 72%. Normal wall motion. Elevated left ventricular filling pressure. Right Ventricle: Right ventricle size is normal. Normal systolic function. Aortic Valve: No stenosis. AV mean gradient is 4 mmHg. AV peak gradient is 8 mmHg. LVOT:AV VTI Index is 0.77. LVOT diameter is 2.0 cm. AV area by continuity VTI is 2.3 cm2. Stroke volume index is 46.5 mL/m2. Tricuspid Valve: Mild (1+) regurgitation. Normal hepatic vein systolic flow. Normal RVSP. RVSP is 25 mmHg. Pulmonic Valve: Trace regurgitation. Interatrial Septum: No interatrial shunt visualized on color Doppler. Grade 0 Absence of bubbles. Agitated saline study was negative with and without provocation. ASSESSMENT and PLAN COPD exacerbation -Patient was prescribed a course of Levaquin from emergency room. Advised to complete Levaquin. Patient will complete 12-day prednisone taper as well -Patient encouraged to use sodium chloride nebulizers to further assist with mucus clearance, and try to prevent repeated exacerbations Centrilobular emphysema (CMS/HCC) (HCC) -moderate to severe changes on CT imaging -pfts showing severe obstruction with +BD response, hyperinflation, air trapping and mildly reducedgas exchange -Patient is optimized on high dose Trelegy -We previously discussed pursuing endobronchial valve procedure, patient has discussed this with her family and has opted not to pursue this at this time. Ventilation/perfusion scan previously ordered as part of workup to pursue BL VR, however patient has opted not to pursue this, therefore V/Q scan is not necessary and patient was advised she may cancel this Wheezing -Patient notes increased shortness of breath and wheezing after nearly every IVIG infusion each month. Approximately 10% of people have reported wheezing as a side effect -echocardiogram done without cardiac abnormality to explain these symptoms -No immunology notes on file. I have requested this to review, may need to consider change of treatment, as symptoms appear to be exacerbated after these infusions IgG deficiency -Patient is getting monthly IgG infusions. Following with Dr. Davis in [place]. I haverequested records as above Chronic respiratory failure with hypoxia (CMS/HCC) (HCC) -Patient should continue to use supplemental O2 to keep pulse ox 88 to 92% Lung nodule -1.5 x 1.2 x 1.2 cm in RUL on CT chest 12/2020, not PET avid on PET CT 01/2021 -CT lung screen done in 05/2023 shows stable 12 x 9 mm nodule in the right upper lobe plan to repeatimaging annually per guidelines. Imaging due 05/2024 Personal history of tobacco use, presenting hazards to health -Patient has greater than [id number] history, quit in 2008. CT imaging as above Oral thrush -Patient reports she gets thrush after nearly every treatment with prednisone, which she tends to need approximately monthly due to exacerbations after her IVIG infusions -Prescription for fluconazole sent to the pharmacy FOLLOW UP: No follow-ups on file. ROSALIND Clark CNP Pulmonary & Sleep Medicine Portions of the information within this encounter were entered using an electronic dictation system. Best attempts were made to proofread the information prior to note completion. Despite the review of the information, some errors may remain. If there are questions related to the information contained within the note please contact the signing provider directly. documented in this [facility]12-02-2024 Instructions* Patient Instructions* Jaja Noel - 03/24/2024 10:10 AM EST YOUR APPOINTMENT TODAY WAS WITH THE [facility], COPD CLINIC, PULMONARY AND SLEEP MEDICINE OFFICE. PLEASE CALL OUR OFFICE AT [phone] for our [place] office location or [phone] for our [place] location, IF YOU HAVE NOT RECEIVED YOUR [...] to make improvements. COVID-19 VACCINATION INFORMATION: PH. [phone] [email or web address] [facility] Central Scheduling [phone] [facility] Sleep Scheduling [phone] documented in this encounterSEast [facility] [id number] Telephone encounter Note* Telephone Encounter - Catherine Kent - 03/24/2024 7:37 AM EST KALIE LOPEZ [id number] Miscellaneous Notes* Telephone Encounter - Catherine Kent - 03/24/2024 7:37 AM EST KALIE LOPEZ * Telephone Encounter - Alexa Bass - 03/18/2024 2:42 PM EST Your patient has been scheduled for their NM lung ventilation perfusion aerosol on 04/02/24 at [place]. If testing requires an insurance authorization, the authorization must be in place 48 hours prior to the scheduled test or testing will be cancelled. Thank you, Central Scheduling documented in this [facility]11-26-2024 Telephone encounter Note* Telephone Encounter - Alexa Bass - 03/18/2024 2:42 PM EST Your patient has been scheduled for their NM lung ventilation perfusion aerosol on 04/02/24 at [place]. If testing requires an insurance authorization, the authorization must be in place 48 hours prior to the scheduled test or testing will be cancelled. Thank you, Central Scheduling [id number] Miscellaneous Notes* Telephone Encounter - Alexa Bass - 03/18/2024 2:42 PM EST Your patient has been scheduled for their NM lung ventilation perfusion aerosol on 04/02/24 at [place]. If testing requires an insurance authorization, the authorization must be in place 48 hours prior to the scheduled test or testing will be cancelled. Thank you, Central Scheduling documented in this [facility]10-30-2024 History of Present illness Narrative* Prosper Roman, DO - 02/20/2024 10:30 AM EDT Images from the original note were not included. [facility] - [address] [facility] [id number] Visit type: Established Patient Reason for Visit: Follow-up (Med check) Assessment / Plan: Dayana was seen today for follow-up. Diagnoses and all orders for this visit: COPD exacerbation (HCC) (Primary) Comments: Acute. Patient does feel she needs a prednisone burst. Continue all meds. Call if purulent phlegm fever or no resolution in 5 to 7 days for cxr and AB Orders: - predniSONE (Deltasone) 10 MG tablet; Take 5 tabs for 5 days, then 4 tabs for 2 days, then 3 tabs for 2 days, then 2 tabs for 2 days, then one q day till gone Encounter for screening mammogram for malignant neoplasm of breast - Bilateral screening mammogram with tomosynthesis; Future Hypothyroidism, unspecified type Comments: Stable, continue Synthroid Orders: - levothyroxine (Synthroid, Levoxyl) 100 MCG tablet; Take 1 tablet (100 mcg) by mouth daily for 180doses. Mixed hyperlipidemia Comments: Stable, continue Lipitor Orders: - atorvastatin (Lipitor) 10 MG tablet; Take 1 tablet (10 mg) by mouth daily. Gastroesophageal reflux disease without esophagitis Comments: Stable, continue Prilosec Orders: - omeprazole (PriLOSEC) [address] capsule; Take 1 capsule (20 mg) by mouth daily. Immunoglobulin deficiency (HCC) Chronic respiratory failure with hypoxia (HCC) Primary hypertension Comments: Stable, continue amlodipine Subjective: Patient ID: Dayana Briggs is a 73 y.o. female. HPI hypertension and lipid management for patient with severe COPD due to immunoglobulin deficiencyand ex smoking. Recently has been wheezing more and short of breath. No fever or purulent phlegm. No pleurisy. Gets immunoglobulin infusion every month in [place] by florist's decorator. Recent pulmonary consultation noted Review of Systems compliant with meds. No recent heartburn or abdominal pain. Bowels are regular. No abdominal pain. No melena or blood. Due for colonoscopy 5 more years. She would like a mammogram referral. Breast exam in the spring was normal. No new breast complaints. Had a lot of stress with her only daughter having an acute KS in her mid 30s. She and her 2 kids live with this patient. A lot of stress at home but tolerable. Allergies Allergen Reactions Lisinopril Shortness of breath Cough and wheezing Other Other Envirmental allergies trees pollen rag weed, douglass Ampicillin Other reaction(s): Other, stomach issues Aspirin Hives Other reaction(s): U Other reaction(s): U Codeine Other reaction(s): GI Upset sleepy, dizzy Erythromycin unknown reaction Levaquin [Levofloxacin] Other Joint pain (ankles) Penicillins Other reaction(s): Other (See Comments) Upset [...] to Visit Medication Sig Dispense Refill albuterol 108 (90 Base) MCG/ACT inhaler Inhale 2 puffs every 4 hours as needed for shortness of breath. 1 each 2 amLODIPine (Norvasc) 5 MG tablet Take 1 tablet (5 mg) by mouth daily. 90 tablet 1 cholecalciferol (Vitamin D-3) 25 MCG (1000 UT) capsule Take 1 capsule by mouth in the morning and 1capsule before bedtime. fluconazole (Diflucan) 150 MG tablet Take 1 tablet (150 mg) by mouth daily. 7 tablet 1 Cvcntisgkmo-Onatbvhom-Twropp (Trelegy Ellipta) 200-62.5-25 MCG/ACT aerosol powder Inhale 1 puff daily. 1 each 5 Bmzklkjmtvn-Asoolvxsk-Qauxtr (Trelegy Ellipta) 200-62.5-25 MCG/ACT aerosol powder Inhale 1 puff daily. Rinse mouth with water after use to reduce aftertaste and incidence of candidiasis. Do not swallow. 1 each 0 ipratropium (Atrovent) 0.02 % nebulizer solution INHALE THE CONTENTS OF 1 VIAL VIA NEBULIZER 2 TIMES DAILY ipratropium-albuterol (Duo-Neb) 0.5-2.5 mg/3 mL nebulizer solution Take 3 mL by nebulization 4 times daily as needed for wheezing. 30 mL 2 Potassium Gluconate 2.5 MEQ tablet Take by mouth. spironolactone (Aldactone) 25 MG tablet Take 1 tablet (25 mg) by mouth daily. 90 tablet 1 zafirlukast (Accolate) 20 MG tablet Take 20 mg by mouth in the morning and 20 mg before bedtime. [DISCONTINUED] atorvastatin (Lipitor) 10 MG tablet Take 1 tablet (10 mg) by mouth daily. 30 tablet 5 [DISCONTINUED] levothyroxine (Synthroid, Levoxyl) 100 MCG tablet Take 1 tablet (100 mcg) by mouth daily for 180 doses. 90 tablet 1 [DISCONTINUED] omeprazole (PriLOSEC) [address] capsule Take 1 capsule (20 mg) by mouth daily. 90 capsule 1 albuterol (2.5 MG/3ML) 0.083% nebulizer solution Take 3 mL (2.5 mg) by nebulization every 4 hours as needed for wheezing or shortness of breath. 75 mL 2 [DISCONTINUED] albuterol 108 (90 Base) MCG/ACT inhaler Inhale 2 puffs every 4 hours as needed for shortness of breath. 1 each 1 [DISCONTINUED] predniSONE (Deltasone) 10 MG tablet Take 4 tabs (40mg) daily for 3 days, then 3 tabs(30mg) daily for 3 days, 2 tabs (20mg) daily for 3 days, 1 tab (10 mg) daily for 3 days. (Patient not taking: Reported on 02/20/2024) 30 tablet 0 Current Facility-Administered Medications on File Prior to Visit Medication Dose Route Frequency [...] with hypoxia (HCC) Immunoglobulin deficiency (HCC) Hypertension Nodule of upper lobe of right lung IBS (irritable bowel syndrome) Primary osteoarthritis of left knee Very severe chronic obstructive pulmonary disease (HCC) Mixed hyperlipidemia Social History Tobacco Use Smoking status: Former Current packs/day: 0.00 Average packs/day: 2.0 packs/day for 53.2 years (106.4 ttl pk-yrs) Types: Cigarettes Start date: 09/14/1955 Quit date: 12/01/2008 Years since quittin.2 Smokeless tobacco: Never Substance Use Topics Alcohol use: No Alcohol/week: 0.0 standard drinks of alcohol Past Surgical History: Procedure Laterality Date APPENDECTOMY CATARACT EXTRACTION W/ INTRAOCULAR LENS IMPLANT Bilateral CHOLECYSTECTOMY 2012 COLONOSCOPY 10/2018 Dr. Argueta- due 2028 COLONOSCOPY 2008 [facility] DENTAL SURGERY dentures HEMORRHOID SURGERY 1994 MENISCECTOMY Left 2016 [place] PARTIAL HYSTERECTOMY 1994 DUB- Ovaries intact SKIN BIOPSY from left arm, under right breast, and forehead. All negative for CA TONSILLECTOMY (HISTORICAL) Family History Problem Relation Name Age of Onset High Blood Pressure Mother Crome alive age 98 Rheum arthritis Father Heart disease Father age 59 Other ([id number]) Sister adrenal issues No Known Problems Sister COPD Brother Josh age 65, smoker No Known Problems Brother No Known Problems Brother No Known Problems Brother Objective: BP 132/84 (BP Location: Right arm, Patient Position: Sitting, BP Cuff Size: Adult long) Pulse 82 Temp 37 C (98.6 F) (Temporal) Ht 5' (1.524 m) Wt 166 lb (75.3 kg) SpO2 97% BMI 32.42 kg/m Physical Exam vital signs are stable. Afebrile. Audible wheezing noted. Nonicteric. Moist mucous moist mucous membranes. No JVD. No thyroid masses or carotid bruits. Heart is regular without ectopy or new murmurs. Lungs have expiratory wheezes that clear with cough. No change in basilar rales. No eg ophony. Abdomen obese nontender without pain hepatosplenomegaly or masses. No ascites. Extremities have trace pedal edema which appears to be chronic. Posterior pulses are fair documented in this encounterSEast [facility] [id number] Telephone encounter Note* Telephone Encounter - Radha Perkins LPN - 02/19/2024 2:05 PM EDT RX loaded Next ov 02/20/24 [id number] Miscellaneous Notes* Telephone Encounter - Radha Perkins LPN - 02/19/2024 2:05 PM EDT RX loaded Next ov 02/20/24 * Telephone Encounter - Celestina Gonzales - 02/19/2024 1:58 PM EDT Medication name: albuterol 108 (90 Base) MCG/ACT inhaler Patient would like to make sure they receive a 90-day supply on this medication. Please advise. Medication dosage: 2 puffs Monthly quantity needed: does not say How many day supply requestin days Medication route: inhalation (inhaler) Medication administration time(s): as needed (PRN) If taking medication PRN, reason for taking medication: shortness of breath If this is a controlled substance do you receive this or any other controlled medication from any other doctor or facility: N/A Ordering provider: Dr. Roman Date of last office visit: 10/24/23 Date of next office visit: 02/20/24 Date of last refill: (see medication tab): 12/27/23 Updated/Validated preferred pharmacy: Yes Patient instructed to contact the pharmacy prior to picking up the medication: Yes documented in this [facility]10-29-2024 Telephone encounter Note* Telephone Encounter - Celestina Gonzales - 02/19/2024 1:58 PM EDT Medication name: albuterol 108 (90 Base) MCG/ACT inhaler Patient would like to make sure they receive a 90-day supply on this medication. Please advise. Medication dosage: 2 puffs Monthly quantity needed: does not say How many day supply requestin days Medication route: inhalation (inhaler) Medication administration time(s): as needed (PRN) If taking medication PRN, reason for taking medication: shortness of breath If this is a controlled substance do you receive this or any other controlled medication from any other doctor or facility: N/A Ordering provider: Dr. Roman Date of last office visit: 10/24/23 Date of next office visit: 02/20/24 Date of last refill: (see medication tab): 12/27/23 Updated/Validated preferred pharmacy: Yes Patient instructed to contact the pharmacy prior to picking up the medication: Yes [id number] Telephone encounter Note* Telephone Encounter - Jaja Noel - 01/30/2024 1:36 PM EDT TRELEGY 200 SAMPLES [id number] Miscellaneous Notes* Telephone Encounter - Jaja Noel - 01/30/2024 1:36 PM EDT TRELEGY 200 SAMPLES documented in this encounterSEast [facility] [id number] History of Present illness Narrative* Joyce Brown APRN - KRISTINA - 01/30/2024 11:40 AM EDT Images from the original note were not included. [facility] Pulmonary Medicine [address] [place] [address] Date of Service: 01/30/2024 Visit type: An Established patient Chief Complaint/Reason for Referral: Follow-up (3 week, COPD, SOB Emphysema) SUBJECTIVE History of Present Illness: Dayana Briggs ( 1950) is a 73 y.o. 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 Patient complaining of frequent exacerbations. She feels this seems to occur monthly after her IVIGinfusions. Optimized on high dose Trelegy at last OV. Echocardiogram done, without any abnormality to explain dyspnea. CAT: 40 MMRC Dyspnea Scale: Grade Description of Breathlessness [...] screening 04/2021 COPD (chronic obstructive pulmonary disease) ([facility]) 2014 Home O2 since 2015 Ex-smoker 2009 GERD (gastroesophageal reflux disease) History of idiopathic thrombocytopenic purpura 2006 resolved History of shingles 2020 left CN V Hypertension 2004 Hypothyroidism IBS (irritable bowel syndrome) 2000 per [facility] Immunoglobulin deficiency (HCC) 2007 monthly IVIG infusion per Candace Gutier[facility], [place] Nodule of upper lobe of right lung no change per 2023 LDCT Osteoporosis [address] Field Renal stones SURGICAL HISTORY: Past Surgical History: Procedure Laterality Date APPENDECTOMY CATARACT EXTRACTION W/ INTRAOCULAR LENS IMPLANT Bilateral CHOLECYSTECTOMY 2012 COLONOSCOPY 10/2018 due 2028 COLONOSCOPY 2008 [facility] DENTAL SURGERY dentures HEMORRHOID SURGERY 1994 MENISCECTOMY Left 2016 [facility] PARTIAL HYSTERECTOMY 1994 DUB- Ovaries intact SKIN BIOPSY from left arm, under right breast, and forehead. All negative for CA TONSILLECTOMY (HISTORICAL) ALLERGIES: Allergies Allergen Reactions Lisinopril Shortness of breath Cough and wheezing Other Other Envirmental allergies trees pollen rag weed, douglass Ampicillin Other reaction(s): Other, stomach issues Aspirin Hives Other reaction(s): U Other reaction(s): U Codeine Other reaction(s): GI Upset sleepy, dizzy Erythromycin unknown reaction Levaquin [Levofloxacin] Other Joint pain (ankles) Penicillins Other reaction(s): Other (See Comments) Upset [...] shortness of breath., Disp: 1 each, Rfl: 1 amLODIPine (Norvasc) 5 MG tablet, Take 1 tablet (5 mg) by mouth daily., Disp: 90 tablet, Rfl: 1 atorvastatin (Lipitor) 10 MG tablet, Take 1 tablet (10 mg) by mouth daily., Disp: 30 tablet, Rfl: 5 cholecalciferol (Vitamin D-3) 25 MCG (1000 UT) capsule, Take 1 capsule by mouth in the morning and 1 capsule before bedtime., Disp: , Rfl: fluconazole (Diflucan) 150 MG tablet, Take 1 tablet (150 mg) by mouth daily., Disp: 7 tablet, Rfl: 1 Ctxfxfxjklr-Clzampihs-Ufidwb (Trelegy Ellipta) 200-62.5-25 MCG/ACT aerosol powder , Inhale 1 puff daily., Disp: 1 each, Rfl: 5 ipratropium (Atrovent) 0.02 % nebulizer solution, INHALE [...] Rfl: predniSONE (Deltasone) 10 MG tablet, Take 4 tabs (40mg) daily for 3 days, then 3 tabs (30mg) daily for 3 days, 2 tabs (20mg) daily for 3 days, 1 tab (10 mg) daily for 3 days., Disp: 30 tablet, Rfl: 0 spironolactone (Aldactone) 25 MG tablet, Take 1 tablet (25 mg) by mouth daily., Disp: 90 tablet, Rfl: 1 zafirlukast (Accolate) 20 MG tablet, Take 20 mg by mouth in the morning and 20 mg before bedtime., Disp: , Rfl: Current Facility-Administered Medications: albuterol (2.5 MG/3ML) 0.083% nebulizer solution 2.5 mg, 2.5 mg, Nebulization, Once, Jazmin Moy PA-C ipratropium (Atrovent) 0.02 % nebulizer solution 0.5 mg, 0.5 mg, Nebulization, Once, Jazmin Moy PA-C SOCIAL HISTORY: Social History Tobacco Use Smoking status: Former Current packs/day: 0.00 Average packs/day: 2.0 packs/day for 53.2 years (106.4 ttl pk-yrs) Types: Cigarettes Start date: 09/14/1955 Quit date: 12/01/2008 Years since quittin.1 Smokeless tobacco: Never Substance Use Topics Alcohol use: No Alcohol/week: 0.0 standard drinks of alcohol FAMILY HISTORY: Family History Problem Relation Name Age of Onset High Blood Pressure Mother Crome alive age 98 Rheum arthritis Father Heart disease Father age 59 Other ([id number]) Sister adrenal issues No Known Problems Sister COPD Brother Josh age 65, smoker No Known Problems Brother No Known Problems Brother No Known Problems Brother REVIEW OF SYSTEMS: Review of Systems Constitutional: Positive for activity change. Negative for appetite change, chills, fatigue, fever and unexpected weight change. HENT: Positive for congestion. Negative for postnasal drip, rhinorrhea, sneezing and sore throat. Respiratory: Positive for cough, shortness of breath and wheezing (improved some). Negative for apnea and chest tightness. Cardiovascular: Negative for chest pain, palpitations and leg swelling. Allergic/Immunologic: Negative for environmental allergies. Psychiatric/Behavioral: Negative for sleep disturbance. VITAL SIGNS: BP 125/79 Pulse 78 Ht 5' (1.524 m) Wt 165 lb (74.8 kg) SpO2 92% BMI 32.22 kg/m PHYSICAL EXAM: Physical Exam Constitutional: General: She is not in acute distress. Appearance: She is not ill-appearing. Pulmonary: Effort: No respiratory distress. Neurological: Mental Status: She is alert. DATA REVIEWED: PFT's--04/2023 Spirometry Units Pred PreDrug Pre%Pred Post Post%Pred %Change FVC L,btps 2.79 1.84 66. 2.47 89. 34. FEV1 L,btps 2.11 0.65 31. 0.70 33. 9. FEV1/FVC (%) % 76. 35. 46. 28. 37. -19. PVV37-32% L/s 1.83 0.17 9. 0.17 9. 0. [...] /MIP cmH2O -68.81 PEmax /MEP cmH2O 90.11 BRANCH SERVICE ASSOCIATE NOTES Many attempts. No consistent results. Best [...] a spacer that was instructed and dispensed. 70475- PRE/[place] [address]- DLCO 39924- FRC GAS Tests to perform: [id number] - FULL PFT STUDY WITH BRONCHODILATOR PHYSICIAN [...] is unremarkable. No supraclavicular lymphadenopathy. MEDIASTINUM AND PATY: No mediastinal lymphadenopathy. No hilar lymphadenopathy, within [...] This nodule demonstrates mild FDG uptake (maximal SUV1.7), less than typically expected for malignancy. No additional FDG avid pulmonary nodules are identified. There are moderate emphysematous changes. No FDG avid lymphadenopathy is seen within the neck or chest. ABDOMEN AND PELVIS: No abnormal FDG accumulation is seen within the abdomen or pelvis. On the low- dose CT images, a right-sided spigelian type hernia is noted containing nondilated loops of small bowel. MUSCULOSKELETAL: Unremarkable. No evidence of osseous metastatic disease. IMPRESSION: Noncalcified nodules in the right upper lobe demonstrates mild FDG accumulation, less than typically expected for malignancy. Routine CT follow-up is recommended to ensure stability. TTE--01/10/24 Left Ventricle: Left ventricle size is normal. Normal wall thickness. Normal left ventricular systolic function. EF by 2D Simpsons Biplane is 72%. Normal wall motion. Elevated left ventricular filling pressure. Right Ventricle: Right ventricle size is normal. Normal systolic function. Aortic Valve: No stenosis. AV mean gradient is 4 mmHg. AV peak gradient is 8 mmHg. LVOT:AV VTI Index is 0.77. LVOT diameter is 2.0 cm. AV area by continuity VTI is 2.3 cm2. Stroke volume index is 46.5 mL/m2. Tricuspid Valve: Mild (1+) regurgitation. Normal hepatic vein systolic flow. Normal RVSP. RVSP is 25 mmHg. Pulmonic Valve: Trace regurgitation. Interatrial Septum: No interatrial shunt visualized on color Doppler. Grade 0 Absence of bubbles. Agitated saline study was negative with and without provocation. ASSESSMENT and PLAN Centrilobular emphysema (CMS/HCC) (HCC) -moderate to severe changes on CT imaging -pfts showing severe obstruction with +BD response, hyperinflation, air trapping and mildly reducedgas exchange -Patient is optimized on high dose Trelegy -We previously discussed pursuing endobronchial valve procedure, patient has discussed this with her family and has opted not to pursue this at this time Wheezing -Patient notes increased shortness of breath and wheezing after nearly every IVIG infusion each month. Approximately 10% of people have reported wheezing as a side effect -echocardiogram done without cardiac abnormality to explain symptoms -advised patient to discuss this with immunology, as she may warrant change in therapy due to side effects IgG deficiency -Patient is getting monthly IgG infusions. Following with Dr. Davis in [place] Chronic respiratory failure with hypoxia (CMS/HCC) (HCC) -Patient should continue to use supplemental O2 to keep pulse ox 88 to 92% Lung nodule -1.5 x 1.2 x 1.2 cm in RUL on CT chest 12/2020, not PET avid on PET CT 01/2021 -CT lung screen done in 05/2023 shows stable 12 x 9 mm nodule in the right upper lobe plan to repeatimaging annually per guidelines. Imaging due 05/2024 Personal history of tobacco use, presenting hazards to health -Patient has greater than [id number] history, quit in 2008. CT imaging as above FOLLOW UP: No follow-ups on file. ROSALIND Clark CNP Pulmonary & Sleep Medicine Portions of the information within this encounter were entered using an electronic dictation system. Best attempts were made to proofread the information prior to note completion. Despite the review of the information, some errors may remain. If there are questions related to the information contained within the note please contact the signing provider directly. documented in this [facility]10-09-2024 Instructions* Patient Instructions* Susan Young MA - 01/30/2024 11:40 AM EDT YOUR APPOINTMENT TODAY WAS WITH THE [facility] LUNG NODULE CLINIC, COPD CLINIC, PULMONARY AND SLEEP MEDICINE OFFICE. PLEASE CALL OUR OFFICE AT [phone] for our [facility] location or [phone] for our [place] location, IF YOU HAVE NOT RECEIVED YOUR [...] to make improvements. COVID-19 VACCINATION INFORMATION: . [phone] [email or web address] [facility] Central Scheduling [phone] [facility] Sleep Scheduling [phone] documented in this [facility]09-18-2024 Telephone encounter Note* Telephone Encounter - Jajavy Noel - 01/09/2024 2:43 PM EDT Ev 200 sample [id number] Miscellaneous Notes* Telephone Encounter - Jaaj Noel - 01/09/2024 2:43 PM EDT Radhagy 200 sample documented in this [facility]09-18-2024 History of Present illness Narrative* ROSALIND Holloway CNP - 01/09/2024 10:10 AM EDT Images from the original note were not included. [facility] Pulmonary Medicine [address] [place] [address] Date of Service: 01/09/2024 Visit type: An Established patient Chief Complaint/Reason for Referral: Follow-up and Shortness of Breath (Hx OF SEVERE COPD, EMPHYSEMA) SUBJECTIVE History of Present Illness: Dayana Briggs ( 1950) is a 73 y.o. 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 Patient was treated for presumed COPD exacerbation at last office visit (12/11). Rx for prednisone sent to the pharmacy. Patient had noted clinical benefit with use of Levaquin previously, so Levaquinwas prescribed again and sputum culture obtained. Chest x-ray without any acute abnormality. Sputumculture showed normal respiratory scott and rare Edgar albicans. Patient developed joint pain, and felt it may be associated with use of the Levaquin. Patient was advised to stop Levaquin due to side effects and negative sputum cultures. Today, patient reports that she is feeling well. States that she was feeling short of breath and wheezy last week, but symptoms have improved and she is feeling much better. Patient states she tends to have increased wheezing and shortness of breath after her IVIG infusions. Follows with allergy/immunology (Dr. Davis). Frequently needs to take doses of prednisone to help symptoms. We had previously discussed possibly pursuing endobronchial valve procedure, though patient has discussed it with her family and has opted not to pursue this. Takes Trelegy daily as prescribed, denies side effect. Patient does also complain of bilateral leg swelling (left greater than right), which tends to wor sen as the day goes on and then improved by morning. She has echocardiogram scheduled for tomorrow. CAT: 28/40 MMRC Dyspnea Scale: Grade Description of Breathlessness [...] screening 04/2021 COPD (chronic obstructive pulmonary disease) ([facility]) 2014 Home O2 since 2014 Ex-smoker 2008 GERD (gastroesophageal reflux disease) History of idiopathic thrombocytopenic purpura 2005 resolved History of shingles 2020 left CN V Hypertension 2004 Hypothyroidism IBS (irritable bowel syndrome) 2000 per [facility] Immunoglobulin deficiency (HCC) 2007 monthly IVIG infusion per Dr. Decker [place], [place] Nodule of upper lobe of right lung no change per 2023 LDCT Osteoporosis [address] infusion [address] Field Renal stones SURGICAL HISTORY: Past Surgical History: Procedure Laterality Date APPENDECTOMY CATARACT EXTRACTION W/ INTRAOCULAR LENS IMPLANT Bilateral CHOLECYSTECTOMY 2013 COLONOSCOPY 10/2018 due 2028 COLONOSCOPY 2008 Turowski DENTAL SURGERY dentures HEMORRHOID SURGERY 1994 MENISCECTOMY Left 2016 Damico PARTIAL HYSTERECTOMY 1994 DUB- Ovaries intact SKIN BIOPSY from left arm, under right breast, and forehead. All negative for CA TONSILLECTOMY (HISTORICAL) ALLERGIES: Allergies Allergen Reactions Lisinopril Shortness of breath Cough and wheezing Other Other Envirmental allergies trees pollen rag weed, douglass Ampicillin Other reaction(s): Other, stomach issues Aspirin Hives Other reaction(s): U Other reaction(s): U Codeine Other reaction(s): GI Upset sleepy, dizzy Erythromycin unknown reaction Levaquin [Levofloxacin] Other Joint pain (ankles) Penicillins Other reaction(s): Other (See Comments) Upset [...] shortness of breath., Disp: 1 each, Rfl: 1 amLODIPine (Norvasc) 5 MG tablet, Take 1 tablet (5 mg) by mouth daily., Disp: 90 tablet, Rfl: 1 atorvastatin (Lipitor) 10 MG tablet, Take 1 tablet (10 mg) by mouth daily., Disp: 30 tablet, Rfl: 5 cholecalciferol (Vitamin D-3) 25 MCG (1000 UT) capsule, Take 1 capsule by mouth in the morning and 1 capsule before bedtime., Disp: , Rfl: fluconazole (Diflucan) 150 MG tablet, Take 1 tablet (150 mg) by mouth daily., Disp: 7 tablet, Rfl: 1 Ssdxyaqxbky-Tcdjjjygv-Akhnwv (Trelegy Ellipta) 100-62.5-25 MCG/ACT aerosol powder , Inhale 1 Inhalation daily., Disp: 60 each, Rfl: 3 ipratropium (Atrovent) 0.02 % nebulizer solution, INHALE [...] Rfl: predniSONE (Deltasone) 10 MG tablet, Take 4 tabs (40mg) daily for 3 days, then 3 tabs (30mg) daily for 3 days, 2 tabs (20mg) daily for 3 days, 1 tab (10 mg) daily for 3 days., Disp: 30 tablet, Rfl: 0 spironolactone (Aldactone) 25 MG tablet, Take 1 tablet (25 mg) by mouth daily., Disp: 90 tablet, Rfl: 1 zafirlukast (Accolate) 20 MG tablet, Take 20 mg by mouth in the morning and 20 mg before bedtime., Disp: , Rfl: Current Facility-Administered Medications: albuterol (2.5 MG/3ML) 0.083% nebulizer solution 2.5 mg, 2.5 mg, Nebulization, Once, Jazmin Moy PA-C ipratropium (Atrovent) 0.02 % nebulizer solution 0.5 mg, 0.5 mg, Nebulization, Once, Jazmin Moy PA-C SOCIAL HISTORY: Social History Tobacco Use Smoking status: Former Current packs/day: 0.00 Average packs/day: 2.0 packs/day for 53.2 years (106.4 ttl pk-yrs) Types: Cigarettes Start date: 09/14/1955 Quit date: 12/01/2008 Years since quittin.1 Smokeless tobacco: Never Substance Use Topics Alcohol use: No Alcohol/week: 0.0 standard drinks of alcohol FAMILY HISTORY: Family History Problem Relation Name Age of Onset High Blood Pressure Mother Crome alive age 98 Rheum arthritis Father Heart disease Father age 59 Other ([address]) Sister adrenal issues No Known Problems Sister COPD Brother Josh age 65, smoker No Known Problems Brother No Known Problems Brother No Known Problems Brother REVIEW OF SYSTEMS: Review of Systems Constitutional: Positive for activity change. Negative for appetite change, chills, fatigue, fever and unexpected weight change. HENT: Positive for congestion. Negative for postnasal drip, rhinorrhea, sneezing and sore throat. Respiratory: Positive for cough, shortness of breath and wheezing. Negative for apnea and chest tightness. Cardiovascular: Negative for chest pain, palpitations and leg swelling. Allergic/Immunologic: Negative for environmental allergies. Psychiatric/Behavioral: Negative for sleep disturbance. VITAL SIGNS: BP 134/80 Pulse 68 Temp 36.3 C (97.3 F) (Temporal) Ht 5' 3 (1.6 m) Wt 162 lb 3.2 oz (73.6 kg) SpO2 95% Comment: 2Lp BMI 28.73 kg/m PHYSICAL EXAM: Physical Exam Constitutional: General: She is not in acute distress. Appearance: She is not ill-appearing. Cardiovascular: Rate and Rhythm: Normal rate and regular rhythm. Heart sounds: No murmur heard. Pulmonary: Effort: No respiratory distress. Breath sounds: No wheezing, rhonchi or rales. Musculoskeletal: Right lower leg: Edema (1+ pitting) present. Left lower leg: Edema (2+ pitting) present. Skin: General: Skin is warm and dry. Capillary Refill: Capillary refill takes less than 2 seconds. Psychiatric: Mood and Affect: Mood normal. Behavior: Behavior normal. DATA REVIEWED: PFT's--04/2023 Spirometry Units Pred PreDrug Pre%Pred Post Post%Pred %Change FVC L,btps 2.79 1.84 66. 2.47 89. 34. FEV1 L,btps 2.11 0.65 31. 0.70 33. 9. FEV1/FVC (%) % 76. 35. 46. 28. 37. -19. WOS61-86% L/s 1.83 0.17 9. 0.17 9. 0. [...] /MIP cmH2O -68.81 PEmax /MEP cmH2O 90.11 BRANCH SERVICE ASSOCIATE NOTES Many attempts. No consistent results. Best [...] a spacer that was instructed and dispensed. 06652- PRE/[place] [address]- DLCO 91806- FRC GAS Tests to perform: [id number] - FULL PFT STUDY WITH BRONCHODILATOR PHYSICIAN [...] is unremarkable. No supraclavicular lymphadenopathy. MEDIASTINUM AND PATY: No mediastinal lymphadenopathy. No hilar lymphadenopathy, within [...] This nodule demonstrates mild FDG uptake (maximal SUV1.7), less than typically expected for malignancy. No additional FDG avid pulmonary nodules are identified. There are moderate emphysematous changes. No FDG avid lymphadenopathy is seen within the neck or chest. ABDOMEN AND PELVIS: No abnormal FDG accumulation is seen within the abdomen or pelvis. On the low- dose CT images, a right-sided spigelian type hernia is noted containing nondilated loops of small bowel. MUSCULOSKELETAL: Unremarkable. No evidence of osseous metastatic disease. IMPRESSION: Noncalcified nodules in the right upper lobe demonstrates mild FDG accumulation, less than typically expected for malignancy. Routine CT follow-up is recommended to ensure stability. ASSESSMENT and PLAN Centrilobular emphysema (CMS/HCC) (HCC) -moderate to severe changes on CT imaging -pfts showing severe obstruction with +BD response, hyperinflation, air trapping and mildly reducedgas exchange -Patient is currently using Trelegy 100. Could further optimize this by increasing to 200 dose. Patient was provided with sample, will follow-up on clinical response -We previously discussed pursuing endobronchial valve procedure, patient has discussed this with her family and has opted not to pursue this at this time Wheezing -Patient notes increased shortness of breath and wheezing after nearly every IVIG infusion each month. Approximately 10% of people have reported wheezing as a side effect. Patient will complete echocardiogram tomorrow, and if no underlying cardiac abnormality to account for patient's wheezing, would recommend patient reach out to florist's decorator to discuss this IgG deficiency -Patient is getting monthly IgG infusions. Following with Dr. Davis in [place] Chronic respiratory failure with hypoxia (CMS/HCC) (HCC) -Patient should continue to use supplemental O2 to keep pulse ox 88 to 92% Lung nodule -1.5 x 1.2 x 1.2 cm in RUL on CT chest 12/2020, not PET avid on PET CT 01/2021 -CT lung screen done in 05/2023 shows stable 12 x 9 mm nodule in the right upper lobe plan to repeatimaging annually per guidelines. Imaging due 05/2024 Personal history of tobacco use, presenting hazards to health -Patient has greater than [id number] history, quit in 2008. CT imaging as above FOLLOW UP: Follow up in about 3 weeks (around 01/30/2024), or if symptoms worsen or fail to improve. ROSALIND Clark CNP Pulmonary & Sleep Medicine Portions of the information within this encounter were entered using an electronic dictation system. Best attempts were made to proofread the information prior to note completion. Despite the review of the information, some errors may remain. If there are questions related to the information contained within the note please contact the signing provider directly. documented in this [facility]09-18-2024 History of Present illness Narrative* ROSALIND Holloway CNP - 01/09/2024 10:10 AM EDT Images from the original note were not included. [facility] Pulmonary Medicine [address] [place] [address] Date of Service: 01/09/2024 Visit type: An Established patient Chief Complaint/Reason for Referral: Follow-up and Shortness of Breath (Hx OF SEVERE COPD, EMPHYSEMA) SUBJECTIVE History of Present Illness: Dayana Briggs ( 1950) is a 73 y.o. 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 Patient was treated for presumed COPD exacerbation at last office visit (12/11). Rx for prednisone sent to the pharmacy. Patient had noted clinical benefit with use of Levaquin previously, so Levaquinwas prescribed again and sputum culture obtained. Chest x-ray without any acute abnormality. Sputumculture showed normal respiratory scott and rare Edgar albicans. Patient developed joint pain, and felt it may be associated with use of the Levaquin. Patient was advised to stop Levaquin due to side effects and negative sputum cultures. Today, patient reports that she is feeling well. States that she was feeling short of breath and wheezy last week, but symptoms have improved and she is feeling much better. Patient states she tends to have increased wheezing and shortness of breath after her IVIG infusions. Follows with allergy/immunology (Dr. Davis). Frequently needs to take doses of prednisone to help symptoms. We had previously discussed possibly pursuing endobronchial valve procedure, though patient has discussed it with her family and has opted not to pursue this. Takes Trelegy daily as prescribed, denies side effect. Patient does also complain of bilateral leg swelling (left greater than right), which tends to wor sen as the day goes on and then improved by morning. She has echocardiogram scheduled for tomorrow. CAT: 28/40 MMRC Dyspnea Scale: Grade Description of Breathlessness [...] screening 04/2021 COPD (chronic obstructive pulmonary disease) ([facility]) 2014 Home O2 since 2014 Ex-smoker 2008 GERD (gastroesophageal reflux disease) History of idiopathic thrombocytopenic purpura 2005 resolved History of shingles 2020 left CN V Hypertension 2004 Hypothyroidism IBS (irritable bowel syndrome) [address] 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 Decker, [place], [place] Nodule of upper lobe of right lung no change per 2023 LDCT Osteoporosis [address] Recl[address] infusion per Dr Field Renal stones SURGICAL HISTORY: Past Surgical History: Procedure Laterality Date APPENDECTOMY CATARACT EXTRACTION W/ INTRAOCULAR LENS IMPLANT Bilateral CHOLECYSTECTOMY 2012 COLONOSCOPY 10/2018 due 2028 COLONOSCOPY 2008 Turowski DENTAL SURGERY dentures HEMORRHOID SURGERY 1994 MENISCECTOMY Left 2016 Damico PARTIAL HYSTERECTOMY 1994 DUB- Ovaries intact SKIN BIOPSY from left arm, under right breast, and forehead. All negative for CA TONSILLECTOMY (HISTORICAL) ALLERGIES: Allergies Allergen Reactions Lisinopril Shortness of breath Cough and wheezing Other Other Envirmental allergies trees pollen rag weed, douglass Ampicillin Other reaction(s): Other, stomach issues Aspirin Hives Other reaction(s): U Other reaction(s): U Codeine Other reaction(s): GI Upset sleepy, dizzy Erythromycin unknown reaction Levaquin [Levofloxacin] Other Joint pain (ankles) Penicillins Other reaction(s): Other (See Comments) Upset [...] shortness of breath., Disp: 1 each, Rfl: 1 amLODIPine (Norvasc) 5 MG tablet, Take 1 tablet (5 mg) by mouth daily., Disp: 90 tablet, Rfl: 1 atorvastatin (Lipitor) 10 MG tablet, Take 1 tablet (10 mg) by mouth daily., Disp: 30 tablet, Rfl: 5 cholecalciferol (Vitamin D-3) 25 MCG (1000 UT) capsule, Take 1 capsule by mouth in the morning and 1 capsule before bedtime., Disp: , Rfl: fluconazole (Diflucan) 150 MG tablet, Take 1 tablet (150 mg) by mouth daily., Disp: 7 tablet, Rfl: 1 Xyxxfkneixs-Ykirdgeqh-Henrti (Trelegy Ellipta) 100-62.5-25 MCG/ACT aerosol powder , Inhale 1 Inhalation daily., Disp: 60 each, Rfl: 3 ipratropium (Atrovent) 0.02 % nebulizer solution, INHALE [...] Rfl: predniSONE (Deltasone) 10 MG tablet, Take 4 tabs (40mg) daily for 3 days, then 3 tabs (30mg) daily for 3 days, 2 tabs (20mg) daily for 3 days, 1 tab (10 mg) daily for 3 days., Disp: 30 tablet, Rfl: 0 spironolactone (Aldactone) 25 MG tablet, Take 1 tablet (25 mg) by mouth daily., Disp: 90 tablet, Rfl: 1 zafirlukast (Accolate) 20 MG tablet, Take 20 mg by mouth in the morning and 20 mg before bedtime., Disp: , Rfl: Current Facility-Administered Medications: albuterol (2.5 MG/3ML) 0.083% nebulizer solution 2.5 mg, 2.5 mg, Nebulization, Once, Jazmin Moy PA-C ipratropium (Atrovent) 0.02 % nebulizer solution 0.5 mg, 0.5 mg, Nebulization, Once, Jazmin Moy PA-C SOCIAL HISTORY: Social History Tobacco Use Smoking status: Former Current packs/day: 0.00 Average packs/day: 2.0 packs/day for 53.2 years (106.4 ttl pk-yrs) Types: Cigarettes Start date: 09/14/1953 Quit date: 12/01/2008 Years since quittin.1 Smokeless tobacco: Never Substance Use Topics Alcohol use: No Alcohol/week: 0.0 standard drinks of alcohol FAMILY HISTORY: Family History Problem Relation Name Age of Onset High Blood Pressure Mother Crome alive age 98 Rheum arthritis Father Heart disease Father age 59 Other (90598) Sister adrenal issues No Known Problems Sister COPD Brother Josh age 65, smoker No Known Problems Brother No Known Problems Brother No Known Problems Brother REVIEW OF SYSTEMS: Review of Systems Constitutional: Positive for activity change. Negative for appetite change, chills, fatigue, fever and unexpected weight change. HENT: Positive for congestion. Negative for postnasal drip, rhinorrhea, sneezing and sore throat. Respiratory: Positive for cough, shortness of breath and wheezing. Negative for apnea and chest tightness. Cardiovascular: Negative for chest pain, palpitations and leg swelling. Allergic/Immunologic: Negative for environmental allergies. Psychiatric/Behavioral: Negative for sleep disturbance. VITAL SIGNS: BP 134/80 Pulse 68 Temp 36.3 C (97.3 F) (Temporal) Ht 5' 3 (1.6 m) Wt 162 lb 3.2 oz (73.6 kg) SpO2 95% Comment: 2Lp BMI 28.73 kg/m PHYSICAL EXAM: Physical Exam Constitutional: General: She is not in acute distress. Appearance: She is not ill-appearing. Cardiovascular: Rate and Rhythm: Normal rate and regular rhythm. Heart sounds: No murmur heard. Pulmonary: Effort: No respiratory distress. Breath sounds: No wheezing, rhonchi or rales. Musculoskeletal: Right lower leg: Edema (1+ pitting) present. Left lower leg: Edema (2+ pitting) present. Skin: General: Skin is warm and dry. Capillary Refill: Capillary refill takes less than 2 seconds. Psychiatric: Mood and Affect: Mood normal. Behavior: Behavior normal. DATA REVIEWED: PFT's--04/2023 Spirometry Units Pred PreDrug Pre%Pred Post Post%Pred %Change FVC L,btps 2.79 1.84 66. 2.47 89. 34. FEV1 L,btps 2.11 0.65 31. 0.70 33. 9. FEV1/FVC (%) % 76. 35. 46. 28. 37. -19. RGZ27-70% L/s 1.83 0.17 9. 0.17 9. 0. [...] /MIP cmH2O -68.81 PEmax /MEP cmH2O 90.11 BRANCH SERVICE ASSOCIATE NOTES Many attempts. No consistent results. Best [...] a spacer that was instructed and dispensed. 72599- PRE/[place] [address]- DLCO 83949- FRC GAS Tests to perform: [id number] - FULL PFT STUDY WITH BRONCHODILATOR PHYSICIAN [...] is unremarkable. No supraclavicular lymphadenopathy. MEDIASTINUM AND PATY: No mediastinal lymphadenopathy. No hilar lymphadenopathy, within [...] This nodule demonstrates mild FDG uptake (maximal SUV1.7), less than typically expected for malignancy. No additional FDG avid pulmonary nodules are identified. There are moderate emphysematous changes. No FDG avid lymphadenopathy is seen within the neck or chest. ABDOMEN AND PELVIS: No abnormal FDG accumulation is seen within the abdomen or pelvis. On the low- dose CT images, a right-sided spigelian type hernia is noted containing nondilated loops of small bowel. MUSCULOSKELETAL: Unremarkable. No evidence of osseous metastatic disease. IMPRESSION: Noncalcified nodules in the right upper lobe demonstrates mild FDG accumulation, less than typically expected for malignancy. Routine CT follow-up is recommended to ensure stability. ASSESSMENT and PLAN Centrilobular emphysema (CMS/HCC) (HCC) -moderate to severe changes on CT imaging -pfts showing severe obstruction with +BD response, hyperinflation, air trapping and mildly reducedgas exchange -Patient is currently using Trelegy 100. Could further optimize this by increasing to 200 dose. Patient was provided with sample, will follow-up on clinical response -We previously discussed pursuing endobronchial valve procedure, patient has discussed this with her family and has opted not to pursue this at this time Wheezing -Patient notes increased shortness of breath and wheezing after nearly every IVIG infusion each month. Approximately 10% of people have reported wheezing as a side effect. Patient will complete echocardiogram tomorrow, and if no underlying cardiac abnormality to account for patient's wheezing, would recommend patient reach out to florist's decorator to discuss this IgG deficiency -Patient is getting monthly IgG infusions. Following with Dr. Davis in [place] Chronic respiratory failure with hypoxia (CMS/HCC) (HCC) -Patient should continue to use supplemental O2 to keep pulse ox 88 to 92% Lung nodule -1.5 x 1.2 x 1.2 cm in RUL on CT chest 12/2020, not PET avid on PET CT 01/2021 -CT lung screen done in 05/2023 shows stable 12 x 9 mm nodule in the right upper lobe plan to repeatimaging annually per guidelines. Imaging due 05/2024 Personal history of tobacco use, presenting hazards to health -Patient has greater than [id number] history, quit in 2008. CT imaging as above FOLLOW UP: Follow up in about 3 weeks (around 01/30/2024), or if symptoms worsen or fail to improve. ROSALIND Clark CNP Pulmonary & Sleep Medicine Portions of the information within this encounter were entered using an electronic dictation system. Best attempts were made to proofread the information prior to note completion. Despite the review of the information, some errors may remain. If there are questions related to the information contained within the note please contact the signing provider directly. documented in this [facility]09-18-2024 Instructions* Patient Instructions* Jaja Noel - 01/09/2024 10:10 AM EDT YOUR APPOINTMENT TODAY WAS WITH THE [facility], COPD CLINIC, PULMONARY AND SLEEP MEDICINE OFFICE. PLEASE CALL OUR OFFICE AT [phone] for our [place] office location or [phone] for our [place] location, IF YOU HAVE NOT RECEIVED YOUR [...] to make improvements. COVID-19 VACCINATION INFORMATION: PH. [phone] [email or web address] [facility] Central Scheduling [phone] [facility] Sleep Scheduling [phone] documented in this [facility]09-18-2024 Instructions* Patient Instructions* Jaja Noel - 01/09/2024 10:10 AM EDT YOUR APPOINTMENT TODAY WAS WITH THE [facility], COPD CLINIC, PULMONARY AND SLEEP MEDICINE OFFICE. PLEASE CALL OUR OFFICE AT [phone] for our [place] office location or [phone] for our [place] location, IF YOU HAVE NOT RECEIVED YOUR [...] to make improvements. COVID-19 VACCINATION INFORMATION: PH. [phone] [email or web address] [facility] Central Scheduling [phone] [facility] Sleep Scheduling [phone] documented in this [facility]09-05-2024 Telephone encounter Note* Telephone Encounter - Mone Bbo MA - 12/27/2023 8:16 AM EDT Rx loaded [id number] Miscellaneous Notes* Telephone Encounter - Mone Bob MA - 12/27/2023 8:16 AM EDT Rx loaded * Telephone Encounter - Ayleen Fernández - 12/27/2023 8:09 AM EDT Ordering provider: Yadira Date of last office visit: 10/24/23 Date of next office visit: 02/20/24 Updated/Validated preferred pharmacy: Yes Patient instructed to contact the pharmacy prior to picking up the medication: Yes (1) Medication name: Spironolactone Medication dosage: 25 mg (Miligrams Monthly quantity needed: 30 How many day supply requestin days Medication route: oral (PO) Medication administration time(s): daily If taking medication PRN, reason for taking medication: N/A If this is a controlled substance do you receive this or any other controlled medication from any other doctor or facility: N/A Date of last refill (see medication tab): (2) Medication name: Amlodipine Medication dosage: 5 mg (Miligrams Monthly quantity needed: 30 How many day supply requestin days Medication route: oral (PO) Medication administration time(s): daily If taking medication PRN, reason for taking medication: N/A If this is a controlled substance do you receive this or any other controlled medication from any other doctor or facility: N/A Date of last refill (see medication tab): (3) Medication name: Albuterol 108 Monthly quantity needed: How many day supply requestin days Medication route: inhalation (inhaler) Medication administration time(s): 2 times a day (BID) If taking medication PRN, reason for taking medication: N/A If this is a controlled substance do you receive this or any other controlled medication from any other doctor or facility: N/A Date of last refill (see medication tab): documented in this [facility]09-05-2024 Telephone encounter Note* Telephone Encounter - Ayleen Fernández - 12/27/2023 8:09 AM EDT Ordering provider: Yadira Date of last office visit: 10/24/23 Date of next office visit: 02/20/24 Updated/Validated preferred pharmacy: Yes Patient instructed to contact the pharmacy prior to picking up the medication: Yes (1) Medication name: Spironolactone Medication dosage: 25 mg (Miligrams Monthly quantity needed: 30 How many day supply requestin days Medication route: oral (PO) Medication administration time(s): daily If taking medication PRN, reason for taking medication: N/A If this is a controlled substance do you receive this or any other controlled medication from any other doctor or facility: N/A Date of last refill (see medication tab): (2) Medication name: Amlodipine Medication dosage: 5 mg (Miligrams Monthly quantity needed: 30 How many day supply requestin days Medication route: oral (PO) Medication administration time(s): daily If taking medication PRN, reason for taking medication: N/A If this is a controlled substance do you receive this or any other controlled medication from any other doctor or facility: N/A Date of last refill (see medication tab): (3) Medication name: Albuterol 108 Monthly quantity needed: How many day supply requestin days Medication route: inhalation (inhaler) Medication administration time(s): 2 times a day (BID) If taking medication PRN, reason for taking medication: N/A If this is a controlled substance do you receive this or any other controlled medication from any other doctor or facility: N/A Date of last refill (see medication tab): [id number] Telephone encounter Note* Telephone Encounter - Mulugeta Heart RN - 12/25/2023 10:07 AM EDT Spoke with patient regarding testing, She is declining BLVR at this time. States that she discussedwith her and feels it is too risky for the benefit at her age. Closing BLVR workup. [id number] Miscellaneous Notes* Telephone Encounter - Mulugeta Heart RN - 12/25/2023 10:07 AM EDT Spoke with patient regarding testing, She is declining BLVR at this time. States that she discussedwith her and feels it is too risky for the benefit at her age. Closing BLVR workup. * Telephone Encounter - Mulugeta Heart RN - 12/13/2023 1:21 PM EDT Called and LM for the patient to call back directly for testing to be scheduled. Will try again at a later time. documented in this encounterSEast [id number] Telephone encounter Note* Telephone Encounter - Mulugeta Heart RN - 12/13/2023 1:21 PM EDT Called and LM for the patient to call back directly for testing to be scheduled. Will try again at a later time. [id number] History of Present illness Narrative* ROSALIND Holloway CNP - 12/12/2023 1:10 PM EDT Images from the original note were not included. [facility] Pulmonary Medicine [address] [place] [address] Date of Service: 12/12/2023 Visit type: An Established patient Chief Complaint/Reason for Referral: Follow-up and COPD (4-MONTH APPT-O2-([facility])) SUBJECTIVE History of Present Illness: Dayana Briggs ( 1950) is a 73 y.o. 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 Today, patient reports she has been feeling poorly. Had exacerbation last month, treated with some steroids. States she has exacerbations every month after her IVIG infusions. States she requires useof steroid and sometimes antibiotic to get these under control. Says she typically does well on Levaquin. Using 2 to 2.5 L supplemental O2 most all of the time. Feels very limited by dyspnea. Taking Trelegy 100 as prescribed. Has daily productive cough, often times has difficulty clearing mucus from the airway. Has been coughing up thick yellow/green phlegm most recently. Has taken 60 mg prednisone yesterday and will do the same thing today. Does not have any additional prednisone on hand to anni martinez. CAT: 20/40 MMRC Dyspnea Scale: Grade Description of Breathlessness [...] screening 04/2021 COPD (chronic obstructive pulmonary disease) ([facility]) 2013 Home O2 since 2014 Ex-smoker 2008 GERD (gastroesophageal reflux disease) History of idiopathic thrombocytopenic purpura 2006 resolved History of shingles 2020 left CN V Hypertension 2004 Hypothyroidism IBS (irritable bowel syndrome) [address] [facility] Immunoglobulin deficiency ([facility]) 2007 monthly IVIG infusion per Dr. Decker [place], [place] Nodule of upper lobe of right lung no change per 2023 LDCT Osteoporosis [address] Re[address] infusion [address] Field Renal stones SURGICAL HISTORY: Past Surgical History: Procedure Laterality Date APPENDECTOMY CATARACT EXTRACTION W/ INTRAOCULAR LENS IMPLANT Bilateral CHOLECYSTECTOMY 2013 COLONOSCOPY 10/2018 due 2028 COLONOSCOPY 2008 Turowski DENTAL SURGERY dentures HEMORRHOID SURGERY 1994 MENISCECTOMY Left 2016 Damico PARTIAL HYSTERECTOMY 1994 DUB- Ovaries intact SKIN BIOPSY from left arm, under right breast, and forehead. All negative for CA TONSILLECTOMY (HISTORICAL) ALLERGIES: Allergies Allergen Reactions Lisinopril Shortness of [...] mouth daily., Disp: 90 tablet, Rfl: 1 atorvastatin (Lipitor) 10 MG tablet, Take 1 tablet (10 mg) by mouth daily., Disp: 30 tablet, Rfl: 5 cholecalciferol (Vitamin D-3) 25 MCG (1000 UT) capsule, Take 1 capsule by mouth in the morning and 1 capsule before bedtime., Disp: , Rfl: fluconazole (Diflucan) 150 MG tablet, Take 1 tablet (150 mg) by mouth daily., Disp: 7 tablet, Rfl: 1 Ykgvgqydsje-Noliqotvq-Potmys (Trelegy Ellipta) 100-62.5-25 MCG/ACT aerosol powder , Inhale 1 Inhalation daily., Disp: 60 each, Rfl: 3 ipratropium (Atrovent) 0.02 % nebulizer solution, INHALE [...] 20 mg before bedtime., Disp: , Rfl: levoFLOXacin (Levaquin) 750 MG tablet, Take 1 tablet (750 mg) by mouth daily for 7 days., Disp: 7 tablet, Rfl: 0 predniSONE (Deltasone) 10 MG tablet, Take 4 tabs (40mg) daily for 3 days, then 3 tabs (30mg) daily for 3 days, 2 tabs (20mg) daily for 3 days, 1 tab (10 mg) daily for 3 days., Disp: 30 tablet, Rfl: 0 Current Facility-Administered Medications: albuterol (2.5 MG/3ML) 0.083% nebulizer solution 2.5 mg, 2.5 mg, Nebulization, Once, Jazmin Moy PA-C ipratropium (Atrovent) 0.02 % nebulizer solution 0.5 mg, 0.5 mg, Nebulization, Once, Jazmin Moy PA-C SOCIAL HISTORY: Social History Tobacco Use Smoking status: Former Current packs/day: 0.00 Average packs/day: 2.0 packs/day for 53.2 years (106.4 ttl pk-yrs) Types: Cigarettes Start date: 09/14/1955 Quit date: 12/01/2008 Years since quittin.0 Smokeless tobacco: Never Substance Use Topics Alcohol use: No Alcohol/week: 0.0 standard drinks of alcohol FAMILY HISTORY: Family History Problem Relation Name Age of Onset High Blood Pressure Mother Cro alive age 98 Rheum arthritis Father Heart disease Father age 59 Other ([address]) Sister adrenal issues No Known Problems Sister COPD Brother Josh age 65, smoker No Known Problems Brother No Known Problems Brother No Known Problems Brother REVIEW OF SYSTEMS: Review of Systems Constitutional: Positive for activity change. Negative for appetite change, chills, fatigue, fever and unexpected weight change. HENT: Positive for congestion. Negative for postnasal drip, rhinorrhea, sneezing and sore throat. Respiratory: Positive for cough, shortness of breath and wheezing. Negative for apnea and chest tightness. Cardiovascular: Negative for chest pain, palpitations and leg swelling. Allergic/Immunologic: Negative for environmental allergies. Psychiatric/Behavioral: Negative for sleep disturbance. VITAL SIGNS: BP 129/75 Pulse 87 Temp 36.4 C (97.5 F) (Temporal) Ht 5' 3 (1.6 m) Wt 158 lb 9.6 oz (71.9 kg) SpO2 97% Comment: 2Lp BMI 28.09 kg/m PHYSICAL EXAM: Physical Exam Constitutional: General: She is not in acute distress. Appearance: She is not ill-appearing. Cardiovascular: Rate and Rhythm: Normal rate and regular rhythm. Heart sounds: No murmur heard. Pulmonary: Effort: No respiratory distress. Breath sounds: Wheezing and rhonchi present. No rales. Musculoskeletal: Right lower leg: No edema. Left lower leg: No edema. Skin: General: Skin is warm and dry. Capillary Refill: Capillary refill takes less than 2 seconds. Psychiatric: Mood and Affect: Mood normal. Behavior: Behavior normal. DATA REVIEWED: PFT's--04/2023 Spirometry Units Pred PreDrug Pre%Pred Post Post%Pred %Change FVC L,btps 2.79 1.84 66. 2.47 89. 34. FEV1 L,btps 2.11 0.65 31. 0.70 33. 9. FEV1/FVC (%) % 76. 35. 46. 28. 37. -19. HGU15-74% L/s 1.83 0.17 9. 0.17 9. 0. [...] /MIP cmH2O -68.81 PEmax /MEP cmH2O 90.11 BRANCH SERVICE ASSOCIATE NOTES Many attempts. No consistent results. Best [...] a spacer that was instructed and dispensed. 48989- [place] [address]- DLCO 10980- FRC GAS Tests to perform: [id number] - FULL PFT STUDY WITH BRONCHODILATOR PHYSICIAN INTERPRETATION The quality of the study is good. The flow volume loop is markedly coved with an abrupt fall in expiratory flows consistent with dynamic airway collapse. There is a very severe obstructive ventilatory defect with samll airways disease, a significant bronchodilator response, air trapping, and impaired gas exchange. CXR--2/3/23 PA and lateral views of the chest [...] is unremarkable. No supraclavicular lymphadenopathy. MEDIASTINUM AND PATY: No mediastinal lymphadenopathy. No hilar lymphadenopathy, within [...] This nodule demonstrates mild FDG uptake (maximal SUV1.7), less than typically expected for malignancy. No additional FDG avid pulmonary nodules are identified. There are moderate emphysematous changes. No FDG avid lymphadenopathy is seen within the neck or chest. ABDOMEN AND PELVIS: No abnormal FDG accumulation is seen within the abdomen or pelvis. On the low- dose CT images, a right-sided spigelian type hernia is noted containing nondilated loops of small bowel. MUSCULOSKELETAL: Unremarkable. No evidence of osseous metastatic disease. IMPRESSION: Noncalcified nodules in the right upper lobe demonstrates mild FDG accumulation, less than typically expected for malignancy. Routine CT follow-up is recommended to ensure stability. ASSESSMENT and PLAN COPD exacerbation (HCC) -Patient currently in exacerbation. Patient states she has exacerbations every month, after her IVIG infusions. CT chest done 05/2023 without any indication of pneumonia. No recent sputum cultures on file. Patient reports clinical benefit with use of Levaquin, so will start with prescription of Levaquin and obtain sputum culture in the meantime to ensure adequate antibiotic treatment. Patient willalso be treated with prednisone taper Centrilobular emphysema (CMS/HCC) (HCC) -moderate to severe changes on CT imaging -pfts showing severe obstruction with +BD response, hyperinflation, air trapping and mildly reducedgas exchange -patient appears to be good candidate for bronchoscopic lung volume reduction (BLVR). Will obtain additional testing (ABG, echo, V/Q scan) to further evaluate, and patient will review testing and discuss with Dr. Castellon. Encouraged patient to have family present for this visit so all questions and concerns can be addressed Chronic respiratory failure with hypoxia (CMS/HCC) (HCC) -Patient should continue to use supplemental O2 to keep pulse ox 88 to 92% Lung nodule -1.5 x 1.2 x 1.2 cm in RUL on CT chest 12/2020, not PET avid on PET CT 01/2021 -CT lung screen done in 05/2023 shows stable 12 x 9 mm nodule in the right upper lobe plan to repeatimaging annually per guidelines. Imaging due 05/2024 FOLLOW UP: Follow up after testing to discuss BLVR. Joyce Brown APRN - [employer]ATCH [employer]ER AND REPAIRER Pulmonary & Sleep Medicine Portions of the information within this encounter were entered using an electronic dictation system. Best attempts were made to proofread the information prior to note completion. Despite the review of the information, some errors may remain. If there are questions related to the information contained within the note please contact the signing provider directly. documented in this [facility]08-21-2024 History of Present illness Narrative* ROSALIND Holloway CNP - 12/12/2023 1:10 PM EDT Images from the original note were not included. [facility] Pulmonary Medicine [address] [place] [address] Date of Service: 12/12/2023 Visit type: An Established patient Chief Complaint/Reason for Referral: Follow-up and COPD (4-MONTH APPT-O2-([facility])) SUBJECTIVE History of Present Illness: Dayana Briggs ( 1950) is a 73 y.o. 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 Today, patient reports she has been feeling poorly. Had exacerbation last month, treated with some steroids. States she has exacerbations every month after her IVIG infusions. States she requires useof steroid and sometimes antibiotic to get these under control. Says she typically does well on Levaquin. Using 2 to 2.5 L supplemental O2 most all of the time. Feels very limited by dyspnea. Taking Trelegy 100 as prescribed. Has daily productive cough, often times has difficulty clearing mucus from the airway. Has been coughing up thick yellow/green phlegm most recently. Has taken 60 mg prednisone yesterday and will do the same thing today. Does not have any additional prednisone on hand to anni e. CAT: 20/40 MMRC Dyspnea Scale: Grade Description of Breathlessness [...] screening 04/2021 COPD (chronic obstructive pulmonary disease) ([facility]) 2014 Home O2 since 2014 Ex-smoker 2008 GERD (gastroesophageal reflux disease) History of idiopathic thrombocytopenic purpura 2005 resolved History of shingles 2020 left CN V Hypertension 2004 Hypothyroidism IBS (irritable bowel syndrome) 2000 per [facility] Immunoglobulin deficiency (HCC) 2007 [facility] [place] Nodule of upper lobe of right lung no change per 2023 LDCT Osteoporosis [address] Recl[address] infusion per Dr Field Renal stones SURGICAL HISTORY: Past Surgical History: Procedure Laterality Date APPENDECTOMY CATARACT EXTRACTION W/ INTRAOCULAR LENS IMPLANT Bilateral CHOLECYSTECTOMY 2012 COLONOSCOPY 10/2018 due 2028 COLONOSCOPY 2008 Turowski DENTAL SURGERY dentures HEMORRHOID SURGERY 1994 MENISCECTOMY Left 2016 Damico PARTIAL HYSTERECTOMY 1994 DUB- Ovaries intact SKIN BIOPSY from left arm, under right breast, and forehead. All negative for CA TONSILLECTOMY (HISTORICAL) ALLERGIES: Allergies Allergen Reactions Lisinopril Shortness of [...] mouth daily., Disp: 90 tablet, Rfl: 1 atorvastatin (Lipitor) 10 MG tablet, Take 1 tablet (10 mg) by mouth daily., Disp: 30 tablet, Rfl: 5 cholecalciferol (Vitamin D-3) 25 MCG (1000 UT) capsule, Take 1 capsule by mouth in the morning and 1 capsule before bedtime., Disp: , Rfl: fluconazole (Diflucan) 150 MG tablet, Take 1 tablet (150 mg) by mouth daily., Disp: 7 tablet, Rfl: 1 Hesfvdjwnbu-Yckymbjwn-Ewxyqn (Trelegy Ellipta) 100-62.5-25 MCG/ACT aerosol powder , Inhale 1 Inhalation daily., Disp: 60 each, Rfl: 3 ipratropium (Atrovent) 0.02 % nebulizer solution, INHALE [...] 20 mg before bedtime., Disp: , Rfl: levoFLOXacin (Levaquin) 750 MG tablet, Take 1 tablet (750 mg) by mouth daily for 7 days., Disp: 7 tablet, Rfl: 0 predniSONE (Deltasone) 10 MG tablet, Take 4 tabs (40mg) daily for 3 days, then 3 tabs (30mg) daily for 3 days, 2 tabs (20mg) daily for 3 days, 1 tab (10 mg) daily for 3 days., Disp: 30 tablet, Rfl: 0 Current Facility-Administered Medications: albuterol (2.5 MG/3ML) 0.083% nebulizer solution 2.5 mg, 2.5 mg, Nebulization, Once, Jazmin Moy PA-C ipratropium (Atrovent) 0.02 % nebulizer solution 0.5 mg, 0.5 mg, Nebulization, Once, Jazmin Moy PA-C SOCIAL HISTORY: Social History Tobacco Use Smoking status: Former Current packs/day: 0.00 Average packs/day: 2.0 packs/day for 53.2 years (106.4 ttl pk-yrs) Types: Cigarettes Start date: 09/14/1953 Quit date: 12/01/2008 Years since quittin.0 Smokeless tobacco: Never Substance Use Topics Alcohol use: No Alcohol/week: 0.0 standard drinks of alcohol FAMILY HISTORY: Family History Problem Relation Name Age of Onset High Blood Pressure Mother Crome alive age 98 Rheum arthritis Father Heart disease Father age 59 Other ([address]) Sister adrenal issues No Known Problems Sister COPD Brother Josh age 65, smoker No Known Problems Brother No Known Problems Brother No Known Problems Brother REVIEW OF SYSTEMS: Review of Systems Constitutional: Positive for activity change. Negative for appetite change, chills, fatigue, fever and unexpected weight change. HENT: Positive for congestion. Negative for postnasal drip, rhinorrhea, sneezing and sore throat. Respiratory: Positive for cough, shortness of breath and wheezing. Negative for apnea and chest tightness. Cardiovascular: Negative for chest pain, palpitations and leg swelling. Allergic/Immunologic: Negative for environmental allergies. Psychiatric/Behavioral: Negative for sleep disturbance. VITAL SIGNS: BP 129/75 Pulse 87 Temp 36.4 C (97.5 F) (Temporal) Ht 5' 3 (1.6 m) Wt 158 lb 9.6 oz (71.9 kg) SpO2 97% Comment: 2Lp BMI 28.09 kg/m PHYSICAL EXAM: Physical Exam Constitutional: General: She is not in acute distress. Appearance: She is not ill-appearing. Cardiovascular: Rate and Rhythm: Normal rate and regular rhythm. Heart sounds: No murmur heard. Pulmonary: Effort: No respiratory distress. Breath sounds: Wheezing and rhonchi present. No rales. Musculoskeletal: Right lower leg: No edema. Left lower leg: No edema. Skin: General: Skin is warm and dry. Capillary Refill: Capillary refill takes less than 2 seconds. Psychiatric: Mood and Affect: Mood normal. Behavior: Behavior normal. DATA REVIEWED: PFT's--04/2023 Spirometry Units Pred PreDrug Pre%Pred Post Post%Pred %Change FVC L,btps 2.79 1.84 66. 2.47 89. 34. FEV1 L,btps 2.11 0.65 31. 0.70 33. 9. FEV1/FVC (%) % 76. 35. 46. 28. 37. -19. JVK17-37% L/s 1.83 0.17 9. 0.17 9. 0. [...] /MIP cmH2O -68.81 PEmax /MEP cmH2O 90.11 BRANCH SERVICE ASSOCIATE NOTES Many attempts. No consistent results. Best [...] a spacer that was instructed and dispensed. 39020- PRE/[place] [address]- DLCO 83747- FRC GAS Tests to perform: [id number] - FULL PFT STUDY WITH BRONCHODILATOR PHYSICIAN [...] is unremarkable. No supraclavicular lymphadenopathy. MEDIASTINUM AND PATY: No mediastinal lymphadenopathy. No hilar lymphadenopathy, within [...] This nodule demonstrates mild FDG uptake (maximal SUV1.7), less than typically expected for malignancy. No additional FDG avid pulmonary nodules are identified. There are moderate emphysematous changes. No FDG avid lymphadenopathy is seen within the neck or chest. ABDOMEN AND PELVIS: No abnormal FDG accumulation is seen within the abdomen or pelvis. On the low- dose CT images, a right-sided spigelian type hernia is noted containing nondilated loops of small bowel. MUSCULOSKELETAL: Unremarkable. No evidence of osseous metastatic disease. IMPRESSION: Noncalcified nodules in the right upper lobe demonstrates mild FDG accumulation, less than typically expected for malignancy. Routine CT follow-up is recommended to ensure stability. ASSESSMENT and PLAN COPD exacerbation (HCC) -Patient currently in exacerbation. Patient states she has exacerbations every month, after her IVIG infusions. CT chest done 05/2023 without any indication of pneumonia. No recent sputum cultures on file. Patient reports clinical benefit with use of Levaquin, so will start with prescription of Levaquin and obtain sputum culture in the meantime to ensure adequate antibiotic treatment. Patient willalso be treated with prednisone taper Centrilobular emphysema (CMS/HCC) (HCC) -moderate to severe changes on CT imaging -pfts showing severe obstruction with +BD response, hyperinflation, air trapping and mildly reducedgas exchange -patient appears to be good candidate for bronchoscopic lung volume reduction (BLVR). Will obtain additional testing (ABG, echo, V/Q scan) to further evaluate, and patient will review testing and discuss with Dr. Castellon. Encouraged patient to have family present for this visit so all questions and concerns can be addressed Chronic respiratory failure with hypoxia (CMS/HCC) (HCC) -Patient should continue to use supplemental O2 to keep pulse ox 88 to 92% Lung nodule -1.5 x 1.2 x 1.2 cm in RUL on CT chest 12/2020, not PET avid on PET CT 01/2021 -CT lung screen done in 05/2023 shows stable 12 x 9 mm nodule in the right upper lobe plan to repeatimaging annually per guidelines. Imaging due 05/2024 FOLLOW UP: Follow up after testing to discuss BLVR. ROSALIND Clark CNP Pulmonary & Sleep Medicine Portions of the information within this encounter were entered using an electronic dictation system. Best attempts were made to proofread the information prior to note completion. Despite the review of the information, some errors may remain. If there are questions related to the information contained within the note please contact the signing provider directly. documented in this [facility]08-21-2024 History of Present illness Narrative* ROSALIND Holloway CNP - 12/12/2023 1:10 PM EDT Images from the original note were not included. [facility] Pulmonary Medicine [address] [place] [id number] Date of Service: 12/12/2023 Visit type: An Established patient Chief Complaint/Reason for Referral: Follow-up and COPD (4-MONTH APPT-O2-([facility])) SUBJECTIVE History of Present Illness: Dayana [birth year]B. 1950) is a 73 y.o. 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 Today, patient reports she has been feeling poorly. Had exacerbation last month, treated with some steroids. States she has exacerbations every month after her IVIG infusions. States she requires useof steroid and sometimes antibiotic to get these under control. Says she typically does well on Levaquin. Using 2 to 2.5 L supplemental O2 most all of the time. Feels very limited by dyspnea. Taking Trelegy 100 as prescribed. Has daily productive cough, often times has difficulty clearing mucus from the airway. Has been coughing up thick yellow/green phlegm most recently. Has taken 60 mg prednisone yesterday and will do the same thing today. Does not have any additional prednisone on hand to anni e. CAT: 20/40 MMRC Dyspnea Scale: Grade Description of Breathlessness [...] screening 04/2021 COPD (chronic obstructive pulmonary disease) ([facility]) 2014 Home O2 since 2014 Ex-smoker 2008 GERD (gastroesophageal reflux disease) History of idiopathic thrombocytopenic purpura 2006 resolved History of shingles 2020 left CN V Hypertension 2004 Hypothyroidism IBS (irritable bowel syndrome) [address] [facility] Immunoglobulin deficiency (HCC) 2008 monthly IVIG infusion per Dr. Decker [place], [place] Nodule of upper lobe of right lung no change per 2023 LDCT Osteoporosis [address] infusion [address] Field Renal stones SURGICAL HISTORY: Past Surgical History: Procedure Laterality Date APPENDECTOMY CATARACT EXTRACTION W/ INTRAOCULAR LENS IMPLANT Bilateral CHOLECYSTECTOMY 2013 COLONOSCOPY 10/2018 due 2028 COLONOSCOPY 2008 [place]ski DENTAL SURGERY dentures HEMORRHOID SURGERY 1994 MENISCECTOMY Left 2016 Damico PARTIAL HYSTERECTOMY 1994 DUB- Ovaries intact SKIN BIOPSY from left arm, under right breast, and forehead. All negative for CA TONSILLECTOMY (HISTORICAL) ALLERGIES: Allergies Allergen Reactions Lisinopril Shortness of [...] mouth daily., Disp: 90 tablet, Rfl: 1 atorvastatin (Lipitor) 10 MG tablet, Take 1 tablet (10 mg) by mouth daily., Disp: 30 tablet, Rfl: 5 cholecalciferol (Vitamin D-3) 25 MCG (1000 UT) capsule, Take 1 capsule by mouth in the morning and 1 capsule before bedtime., Disp: , Rfl: fluconazole (Diflucan) 150 MG tablet, Take 1 tablet (150 mg) by mouth daily., Disp: 7 tablet, Rfl: 1 Jfcbsjhgbxi-Huusyqmgs-Nnmxpn (Trelegy Ellipta) 100-62.5-25 MCG/ACT aerosol powder , Inhale 1 Inhalation daily., Disp: 60 each, Rfl: 3 ipratropium (Atrovent) 0.02 % nebulizer solution, INHALE [...] 20 mg before bedtime., Disp: , Rfl: levoFLOXacin (Levaquin) 750 MG tablet, Take 1 tablet (750 mg) by mouth daily for 7 days., Disp: 7 tablet, Rfl: 0 predniSONE (Deltasone) 10 MG tablet, Take 4 tabs (40mg) daily for 3 days, then 3 tabs (30mg) daily for 3 days, 2 tabs (20mg) daily for 3 days, 1 tab (10 mg) daily for 3 days., Disp: 30 tablet, Rfl: 0 Current Facility-Administered Medications: albuterol (2.5 MG/3ML) 0.083% nebulizer solution 2.5 mg, 2.5 mg, Nebulization, Once, Jazmin Moy PA-C ipratropium (Atrovent) 0.02 % nebulizer solution 0.5 mg, 0.5 mg, Nebulization, Once, Jazmin Moy PA-C SOCIAL HISTORY: Social History Tobacco Use Smoking status: Former Current packs/day: 0.00 Average packs/day: 2.0 packs/day for 53.2 years (106.4 ttl pk-yrs) Types: Cigarettes Start date: 09/14/1955 Quit date: 12/01/2008 Years since quittin.0 Smokeless tobacco: Never Substance Use Topics Alcohol use: No Alcohol/week: 0.0 standard drinks of alcohol FAMILY HISTORY: Family History Problem Relation Name Age of Onset High Blood Pressure Mother Cro alive age 98 Rheum arthritis Father Heart disease Father age 59 Other ([id number]) Sister adrenal issues No Known Problems Sister COPD Brother Josh age 65, smoker No Known Problems Brother No Known Problems Brother No Known Problems Brother REVIEW OF SYSTEMS: Review of Systems Constitutional: Positive for activity change. Negative for appetite change, chills, fatigue, fever and unexpected weight change. HENT: Positive for congestion. Negative for postnasal drip, rhinorrhea, sneezing and sore throat. Respiratory: Positive for cough, shortness of breath and wheezing. Negative for apnea and chest tightness. Cardiovascular: Negative for chest pain, palpitations and leg swelling. Allergic/Immunologic: Negative for environmental allergies. Psychiatric/Behavioral: Negative for sleep disturbance. VITAL SIGNS: BP 129/75 Pulse 87 Temp 36.4 C (97.5 F) (Temporal) Ht 5' 3 (1.6 m) Wt 158 lb 9.6 oz (71.9 kg) SpO2 97% Comment: 2Lp BMI 28.09 kg/m PHYSICAL EXAM: Physical Exam Constitutional: General: She is not in acute distress. Appearance: She is not ill-appearing. Cardiovascular: Rate and Rhythm: Normal rate and regular rhythm. Heart sounds: No murmur heard. Pulmonary: Effort: No respiratory distress. Breath sounds: Wheezing and rhonchi present. No rales. Musculoskeletal: Right lower leg: No edema. Left lower leg: No edema. Skin: General: Skin is warm and dry. Capillary Refill: Capillary refill takes less than 2 seconds. Psychiatric: Mood and Affect: Mood normal. Behavior: Behavior normal. DATA REVIEWED: PFT's--04/2023 Spirometry Units Pred PreDrug Pre%Pred Post Post%Pred %Change FVC L,btps 2.79 1.84 66. 2.47 89. 34. FEV1 L,btps 2.11 0.65 31. 0.70 33. 9. FEV1/FVC (%) % 76. 35. 46. 28. 37. -19. JCV05-48% L/s 1.83 0.17 9. 0.17 9. 0. [...] /MIP cmH2O -68.81 PEmax /MEP cmH2O 90.11 BRANCH SERVICE ASSOCIATE NOTES Many attempts. No consistent results. Best [...] a spacer that was instructed and dispensed. 64094- PRE/[place] [address]- DLCO 70434- FRC GAS Tests to perform: [id number] - FULL PFT STUDY WITH BRONCHODILATOR PHYSICIAN [...] is unremarkable. No supraclavicular lymphadenopathy. MEDIASTINUM AND PATY: No mediastinal lymphadenopathy. No hilar lymphadenopathy, within [...] This nodule demonstrates mild FDG uptake (maximal SUV1.7), less than typically expected for malignancy. No additional FDG avid pulmonary nodules are identified. There are moderate emphysematous changes. No FDG avid lymphadenopathy is seen within the neck or chest. ABDOMEN AND PELVIS: No abnormal FDG accumulation is seen within the abdomen or pelvis. On the low- dose CT images, a right-sided spigelian type hernia is noted containing nondilated loops of small bowel. MUSCULOSKELETAL: Unremarkable. No evidence of osseous metastatic disease. IMPRESSION: Noncalcified nodules in the right upper lobe demonstrates mild FDG accumulation, less than typically expected for malignancy. Routine CT follow-up is recommended to ensure stability. ASSESSMENT and PLAN COPD exacerbation (HCC) -Patient currently in exacerbation. Patient states she has exacerbations every month, after her IVIG infusions. CT chest done 05/2023 without any indication of pneumonia. No recent sputum cultures on file. Patient reports clinical benefit with use of Levaquin, so will start with prescription of Levaquin and obtain sputum culture in the meantime to ensure adequate antibiotic treatment. Patient willalso be treated with prednisone taper Centrilobular emphysema (CMS/HCC) (HCC) -moderate to severe changes on CT imaging -pfts showing severe obstruction with +BD response, hyperinflation, air trapping and mildly reducedgas exchange -patient appears to be good candidate for bronchoscopic lung volume reduction (BLVR). Will obtain additional testing (ABG, echo, V/Q scan) to further evaluate, and patient will review testing and discuss with Dr. Castellon. Encouraged patient to have family present for this visit so all questions and concerns can be addressed Chronic respiratory failure with hypoxia (CMS/HCC) (HCC) -Patient should continue to use supplemental O2 to keep pulse ox 88 to 92% Lung nodule -1.5 x 1.2 x 1.2 cm in RUL on CT chest 12/2020, not PET avid on PET CT 01/2021 -CT lung screen done in 05/2023 shows stable 12 x 9 mm nodule in the right upper lobe plan to repeatimaging annually per guidelines. Imaging due 05/2024 FOLLOW UP: Follow up after testing to discuss BLVR. ROSALIND Clark CNP Pulmonary & Sleep Medicine Portions of the information within this encounter were entered using an electronic dictation system. Best attempts were made to proofread the information prior to note completion. Despite the review of the information, some errors may remain. If there are questions related to the information contained within the note please contact the signing provider directly. documented in this [facility]08-21-2024 Instructions* Patient Instructions* Jaja Noel - 12/12/2023 1:10 PM EDT YOUR APPOINTMENT TODAY WAS WITH THE [facility], COPD CLINIC, PULMONARY AND SLEEP MEDICINE OFFICE. PLEASE CALL OUR OFFICE AT [phone] for our [place] office location or [phone] for our [place] location, IF YOU HAVE NOT RECEIVED YOUR [...] to make improvements. COVID-19 VACCINATION INFORMATION: PH. [phone] [facility]ORG/CORONAVIRUS/VACCINE [facility] Central Scheduling [phone] [facility] Sleep Scheduling [phone] documented in this [facility]08-21-2024 Instructions* Patient Instructions* Jaja Noel - 12/12/2023 1:10 PM EDT YOUR APPOINTMENT TODAY WAS WITH THE [facility], COPD CLINIC, PULMONARY AND SLEEP MEDICINE OFFICE. PLEASE CALL OUR OFFICE AT [phone] for our [place] office location or [phone] for our [place] location, IF YOU HAVE NOT RECEIVED YOUR [...] to make improvements. COVID-19 VACCINATION INFORMATION: . [phone] [facility].ORG/CORONAVIRUS/VACCINE [facility] Scheduling [phone] [facility] Scheduling [phone] documented in this [facility]08-21-2024 Instructions* Patient Instructions* Jaja Noel - 12/12/2023 1:10 PM EDT YOUR APPOINTMENT TODAY WAS WITH THE [facility], COPD CLINIC, PULMONARY AND SLEEP MEDICINE OFFICE. PLEASE CALL OUR OFFICE AT [phone] for our [place] office location or [phone] for our [place] location, IF YOU HAVE NOT RECEIVED YOUR [...] to make improvements. COVID-19 VACCINATION INFORMATION: . [phone] [facility]ORG/CORONAVIRUS/VACCINE [facility] Scheduling [phone] [facility] Scheduling [phone] documented in this [place] [address]-21-2024 Miscellaneous Notes* Addendum Note - Miah Forte - 12/12/2023 1:10 PM EDTAddended by: MIAH FORTE on: 12/13/2023 11:04 AM Modules accepted: Orders documented in this [facility]08-21-2024 Miscellaneous Notes* Addendum Note - Miah Forte - 12/12/2023 1:10 PM EDTAddended by: MIAH FORTE on: 12/13/2023 11:04 AM Modules accepted: Orders documented in this [facility]08-21-2024 Note* Addendum Note - Miah Forte - 12/12/2023 1:10 PM EDTAddended by: MIAH FORTE on: 12/13/2023 11:04 AM Modules accepted: Orders [place] [id number] Note* Addendum Note - Miah Forte - 12/12/2023 1:10 PM EDTAddended by: MIAH FORTE on: 12/13/2023 11:04 AM Modules accepted: Orders [id number] Note* Addendum Note - Radha Perkins LPN - 11/15/2023 1:14 PM EDTAddended by: RADHA PERKINS on: 11/15/2023 01:14 PM Modules accepted: Orders [id number] Note* Addendum Note - Radha Perkins LPN - 11/15/2023 1:14 PM EDTAddended by: RADHA PERKINS on: 11/15/2023 01:14 PM Modules accepted: Orders [id number] Telephone encounter Note* Telephone Encounter - Radha Perkins LPN - 11/15/2023 1:14 PM EDT RX loaded Next ov 02/20/24 [id number] Miscellaneous Notes* Addendum Note - Radha Perkins LPN - 11/15/2023 1:14 PM EDTAddended by: RADHA PERKINS on: 11/15/2023 01:14 PM Modules accepted: Orders * Telephone Encounter - Radha Perkins LPN - 11/15/2023 1:14 PM EDT RX loaded Next ov 02/20/24 * Telephone Encounter - Imani Sanchez - 11/15/2023 11:59 AM EDT Medication name: omeprazole (PriLOSEC) [address] capsule Medication dosage: 20 mg (Miligrams Monthly quantity needed: 30 How many day supply requestin days Medication route: oral (PO) Medication administration time(s): daily If taking medication PRN, reason for taking medication: Gastroesophageal reflux disease without esophagitis [K21.9] If this is a controlled substance do you receive this or any other controlled medication from any other doctor or facility: N/A Ordering provider: Jazmin Moy PA-C Date of last office visit: 10/24/23 Date of next office visit: 02/20/24 Date of last refill: (see medication tab): 03/23/23 Updated/Validated preferred pharmacy: Yes [facility]/pharmacy #[id number] - [place], [place] - [address] [address] Patient instructed to contact the pharmacy prior to picking up the medication: Yes documented in this encounterSEast [id number] Telephone encounter Note* Telephone Encounter - Imani Sanchez - 11/15/2023 11:59 AM EDT Medication name: omeprazole (PriLOSEC) [address] capsule Medication dosage: 20 mg (Miligrams Monthly quantity needed: 30 How many day supply requestin days Medication route: oral (PO) Medication administration time(s): daily If taking medication PRN, reason for taking medication: Gastroesophageal reflux disease without esophagitis [K21.9] If this is a controlled substance do you receive this or any other controlled medication from any other doctor or facility: N/A Ordering provider: Jazmin Moy PA-C Date of last office visit: 10/24/23 Date of next office visit: 02/20/24 Date of last refill: (see medication tab): 03/23/23 Updated/Validated preferred pharmacy: Yes [facility]/pharmacy #[address] [place] [address] Patient instructed to contact the pharmacy prior to picking up the medication: Yes [id number] Evaluation + Plan note* Assessment & Plan Note - Jazmin Moy PA-C - 10/24/2023 12:03 PM EDTAssociated Problem(s): Mixed hyperlipidemia - Chronic and unstable patient is agreeable to start statin medication with close follow-up, will start atorvastatin 10 mg daily. [id number] Miscellaneous Notes* Assessment & Plan Note - Jazmin Moy PA-C - 10/24/2023 12:03 PM EDTAssociated Problem(s): Mixed hyperlipidemia - Chronic and unstable patient is agreeable to start statin medication with close follow-up, will start atorvastatin 10 mg daily. documented in this [facility]07-03-2024 History of Present illness Narrative* Jazmin Moy PA-C - 10/24/2023 11:00 AM EDT Images from the original note were not included. [facility] [address] [facility] [address] Dept: [phone] Dept Loc: [phone] Visit type: Established Patient Reason for Visit: Cough (Productive ) and Conjunctivitis Assessment and Plan 1. COPD exacerbation (HCC) Comments: Chronic COPD with periodic exacerbations will refill prednisone patient is to continue on her Trelegy. Orders: - predniSONE (Deltasone) 20 MG tablet; Take 3 tabs (60mg) daily for 5 days, then take 2 tabs (40mg)daily for 2 days, then take 1 tab (20mg) daily for 2 days., Normal - fluconazole (Diflucan) 150 MG tablet; Take 1 tablet (150 mg) by mouth daily., Starting Sun10/24/2023, Normal 2. Mixed hyperlipidemia Assessment & Plan: - Chronic and unstable patient is agreeable to start statin medication with close follow-up, will start atorvastatin 10 mg daily. Orders: - atorvastatin (Lipitor) 10 MG tablet; Take 1 tablet (10 mg) by mouth daily., Starting Sun10/24/2023, Until Sun04/21/2024, Normal Follow up for Recheck, Next scheduled follow-up. Subjective HPI this is a 73-year-old female with known history of COPD just seen by her primary care physiciana month ago for ongoing exacerbations of her COPD and per her florist's decorator was recommended long-term Levaquin for chronic COPD exacerbations. Prednisone was refilled at that time as well. She also has underlying history of hypertension hypothyroidism and IBS. She contacted the [facility] yesterday for next evaluation appointment for concerns regarding possible pinkeye. She states that symptoms started approximately 5 days ago. Patient states pink sclera, irritation, yellow/green crusting with sleeping, right ear pain, productive cough with green thick mucus, post nasal drip, and shortness of breath but at her baseline. (COPD). Patient denies pain fever, difficulty breathing, increase in wheezing and vision. Patient is using Ciprodex twice a day (she has from last eye infection) for the last 4 days with some relief. History of chronic respiratory failure oxygen dependent 2 L a cannula with his severe chronic obstructive pulmonary disease heavy tobacco smoker quit 2008 Currently she is on triple inhaler therapy with Trelegy elliptica, Daliresp and albuterol as needed Started prednisone on Sunday and seems to be getting better Review of Systems Constitutional: Negative for chills and fever. HENT: Negative for congestion and sore throat. Respiratory: Positive for cough, shortness of breath and wheezing. Cardiovascular: Negative for chest pain. Gastrointestinal: Negative for abdominal pain, diarrhea, nausea and vomiting. Genitourinary: Negative for [...] needed for shortness of breath. 1 each amLODIPine (Norvasc) 5 MG tablet Take 1 tablet (5 mg) by mouth daily. 90 tablet 1 cholecalciferol (Vitamin D-3) 25 MCG (1000 UT) capsule Take 1 capsule by mouth in the morning and 1capsule before bedtime. Cenlndfqcms-Kowmtlgrp-Ykxhmk (Trelegy Ellipta) 100-62.5-25 MCG/ACT aerosol powder Inhale 1 Inhalation daily. 60 each 3 ipratropium (Atrovent) 0.02 % nebulizer solution INHALE THE CONTENTS OF 1 VIAL VIA NEBULIZER 2 TIMES DAILY ipratropium-albuterol (Duo-Neb) 0.5-2.5 mg/3 mL nebulizer solution Take 3 mL by nebulization 4 times daily as needed for wheezing. 30 mL 2 omeprazole (PriLOSEC) [address] capsule Take 1 capsule (20 mg) by mouth daily. 90 capsule 1 Potassium Gluconate 2.5 MEQ tablet Take by mouth. spironolactone (Aldactone) 25 MG tablet Take 1 tablet (25 mg) by mouth daily. 90 tablet 1 zafirlukast (Accolate) 20 MG tablet Take 20 mg by mouth in the morning and 20 mg before bedtime. levothyroxine (Synthroid, Levoxyl) 100 MCG tablet Take 1 tablet (100 mcg) by mouth daily for 180 doses. 90 tablet 1 budesonide (Pulmicort) 0.5 MG/2ML nebulizer solution USE 1 VIAL VIA NEBULIZER TWICE A DAY (Patient not taking: Reported on 10/24/2023) 60 mL 2 fluconazole (Diflucan) 150 MG tablet Take 1 tablet (150 mg) by mouth daily. (Patient not taking: Reported on 10/24/2023) 7 tablet 1 formoterol (Perforomist) 20 MCG/2ML nebulizer solution Take 2 mL (20 mcg) by nebulization in the morning and 2 mL (20 mcg) in the evening. 60 mL 2 tiotropium (Spiriva HandiHaler) [address] 1 capsule (18 mcg) into inhaler andinhale daily. 3 capsule 0 Facility-Administered Medications Prior to Visit Medication Dose Route Frequency Provider Last Rate Last Admin albuterol (2.5 MG/3ML) 0.083% nebulizer solution 2.5 mg 2.5 mg Nebulization Once Jazmin Moy, PA-C ipratropium (Atrovent) 0.02 % nebulizer solution 0.5 mg 0.5 mg Nebulization Once Jazmin Moy PA-C Past Medical History: Diagnosis Date Asthma 2006 Breast cancer screening 04/2021 COPD (chronic obstructive pulmonary disease) ([facility]) 2014 Home O2 since 2014 Ex-smoker 2008 GERD (gastroesophageal reflux disease) History of idiopathic thrombocytopenic purpura 2005 resolved History of shingles 2020 left CN V Hypertension 2003 Hypothyroidism IBS (irritable bowel syndrome) 2000 per [facility] Immunoglobulin deficiency ([facility]) [facility] [place] Nodule of upper lobe of right lung no change per 2023 LDCT Osteoporosis [address] infusion per Dr Field Renal stones Social History Tobacco Use Smoking status: Former Current packs/day: 0.00 Average packs/day: 2.0 packs/day for 53.2 years (106.4 ttl pk-yrs) Types: Cigarettes Start date: 09/14/1955 Quit date: 12/01/2008 Years since quittin.9 Smokeless tobacco: Never Substance Use Topics Alcohol use: No Alcohol/week: 0.0 standard drinks of alcohol Past Surgical History: Procedure Laterality Date APPENDECTOMY CATARACT EXTRACTION W/ INTRAOCULAR LENS IMPLANT Bilateral CHOLECYSTECTOMY 2012 COLONOSCOPY 10/2018 due 2028 [facility] dentures HEMORRHOID SURGERY 1994 MENISCECTOMY Left 2016 [facility] PARTIAL HYSTERECTOMY 1994 DUB- Ovaries intact SKIN BIOPSY from left arm, under right breast, and forehead. All negative for CA TONSILLECTOMY (HISTORICAL) Family History Problem Relation Name Age of Onset High Blood Pressure Mother Crome alive age 98 Rheum arthritis Father Heart disease Father age 59 Other ([id number]) Sister adrenal issues No Known Problems Sister COPD Brother Josh age 65, smoker No Known Problems Brother No Known Problems Brother No Known Problems Brother Objective BP 120/64 Pulse 97 Temp 36.4 C (97.5 F) (Temporal) Ht 5' 3 (1.6 m) Wt 157 lb 9.6 oz (71.5 kg) SpO2 97% BMI 27.92 kg/m Physical Exam Vitals reviewed. Constitutional: General: [...] and Summarized Labs: Imaging/Testing: Jazmin Moy PA-C 10/24/2023 Please note that portions of this note may have been completed with voice recognition software. Documentation reviewed prior to signing but minor errors in billiard table repairer may have occurred. documented in this [facility]06-10-2024 Telephone encounter Note* Telephone Encounter - Mira Sepulveda MA - 10/01/2023 9:15 AM EDT Recent Visits Date Type Provider Dept 09/19/23 Office Visit Jazmin Moy PA-C [facility] 08/21/23 Office Visit Prosper Roman DO [facility] 05/21/23 Office Visit Jazmin Moy PA-C [facility] 04/26/23 Office Visit Inga Washington MD [facility] 03/28/23 Office Visit Jazmin Moy PA-C [facility] 03/23/23 Office Visit Jazmin Moy PA-C [facility] 02/06/23 Office Visit Jazmin Moy PA-C [facility] 10/10/22 Office Visit Prosper Roman DO [facility] Showing recent visits within past 365 days and meeting all other requirements Future Appointments No visits were found meeting these conditions. Showing future appointments within next 90 days and meeting all other requirements Requested Prescriptions Pending Prescriptions Disp Refills spironolactone (Aldactone) 25 MG tablet 90 tablet 1 Sig: Take 1 tablet (25 mg) by mouth daily. Provider: Prosper Roman DO Verified pharmacy: yes Verified day(s) supplied: yes Verified refill(s) needed (previous prescription showing no refills in chart): Yes Have you received any controlled medications from any other provider? N/A Overdue for visit: No If yes - patient scheduled? N/A Most recent labs completed in chart? Hypertension: Lab Results Component Value Date NA 139 12/19/2021 K 4.2 12/19/2021 EGFR 75 03/23/2023 BUN 21 03/23/2023 CREATININE 0.84 03/23/2023 [id number] Miscellaneous Notes* Telephone Encounter - Mira Sepulveda MA - 10/01/2023 9:15 AM EDT Recent Visits Date Type Provider Dept 09/19/23 Office Visit Jazmin Moy PA-C [facility] 08/21/23 Office Visit Prosper Roman DO [facility] 05/21/23 Office Visit Jazmin Moy PA-C [facility] 04/26/23 Office Visit Inga Washington MD [facility] 03/28/23 Office Visit Jazmin Moy PA-C [facility] 03/23/23 Office Visit Jazmin Moy PA-C [facility] 02/06/23 Office Visit Jazmin Moy PA-C [facility] 10/10/22 Office Visit Prosper Roman DO [facility] Showing recent visits within past 365 days and meeting all other requirements Future Appointments No visits were found meeting these conditions. Showing future appointments within next 90 days and meeting all other requirements Requested Prescriptions Pending Prescriptions Disp Refills spironolactone (Aldactone) 25 MG tablet 90 tablet 1 Sig: Take 1 tablet (25 mg) by mouth daily. Provider: Prosper Roman DO Verified pharmacy: yes Verified day(s) supplied: yes Verified refill(s) needed (previous prescription showing no refills in chart): Yes Have you received any controlled medications from any other provider? N/A Overdue for visit: No If yes - patient scheduled? N/A Most recent labs completed in chart? Hypertension: Lab Results Component Value Date NA 139 12/19/2021 K 4.2 12/19/2021 EGFR 75 03/23/2023 BUN 21 03/23/2023 CREATININE 0.84 03/23/2023 * Telephone Encounter - Jolanta Bhandari - 10/01/2023 9:04 AM EDT Medication name: spironolactone (Aldactone) 25 MG tablet Medication dosage: 25 mg (Miligrams Monthly quantity needed: 30 How many day supply requestin days Medication route: oral (PO) Medication administration time(s): daily If taking medication PRN, reason for taking medication: N/A If this is a controlled substance do you receive this or any other controlled medication from any other doctor or facility: No Ordering provider: Dr Roman Date of last office visit: 09/19/2023 Date of next office visit: 02/20/2024 Date of last refill: (see medication tab): 03/23/2023 Updated/Validated preferred pharmacy: Yes Patient instructed to contact the pharmacy prior to picking up the medication: Yes documented in this [facility]06-10-2024 Telephone encounter Note* Telephone Encounter - Jolanta Bhandari - 10/01/2023 9:04 AM EDT Medication name: spironolactone (Aldactone) 25 MG tablet Medication dosage: 25 mg (Miligrams Monthly quantity needed: 30 How many day supply requestin days Medication route: oral (PO) Medication administration time(s): daily If taking medication PRN, reason for taking medication: N/A If this is a controlled substance do you receive this or any other controlled medication from any other doctor or facility: No Ordering provider: Dr Roman Date of last office visit: 09/19/2023 Date of next office visit: 02/20/2024 Date of last refill: (see medication tab): 03/23/2023 Updated/Validated preferred pharmacy: Yes Patient instructed to contact the pharmacy prior to picking up the medication: Yes [id number] History of Present illness Narrative* Jazmin Moy PA-C - 09/19/2023 10:20 AM EDT Images from the original note were not included. [facility] [address] [facility] [address] Dept: [phone] Dept Loc: [phone] Visit type: Established Patient Reason for Visit: Cough (And COPD flare up) Assessment and Plan 1. COPD with acute exacerbation (HCC) - levoFLOXacin (Levaquin) 250 MG tablet; Take 1 tablet (250 mg) by mouth daily for 21 days., Starting Sun09/19/2023, Until Sun10/10/2023, Normal - predniSONE (Deltasone) 20 MG tablet; Take 3 tabs (60mg) daily for 5 days, then take 2 tabs (40mg)daily for 2 days, then take 1 tab (20mg) daily for 2 days., Normal Patient has persistent chronic and unstable severe COPD and emphysema. She is getting IV infusions through immunology and she states every time she gets infusions seems to exacerbate her symptoms getworse she did take prednisone for a few days but is currently out of it she does respond well to the prednisone she did have some muscle aches and pains to 500 mg of Levaquin daily she only took it for about a week she stopped it due to muscle aches and pains and we will start her back on a lower dose of 250 mg as well as resume her prednisone and encouraged to follow-up with pulmonology. Follow up if symptoms worsen or fail to improve, for Next scheduled follow-up. Subjective HPI this is a 73-year-old female with known history of COPD just seen by her primary care physiciana month ago for ongoing exacerbations of her COPD and per her florist's decorator was recommended long-term Levaquin for chronic COPD exacerbations. Prednisone was refilled at that time as well. She also has underlying history of hypertension hypothyroidism and IBS. She contacted the [facility] yesterday for next appointment evaluation for concerns of increasing cough congestion shortness of breath with thick yellowish-green sputum. Audible wheezing worse over the last week. She wears continuous home oxygen and is increased her oxygen up to 2 and half liters and her pulse ox is anywhere from 89 to 97% on oxygen. Patient is concerned she is taking her prednisone but feels she needs another antibiotic. Patient is currently on Trelegy as well as prednisone and an albuterol nebulized solution. Patient had a CT of her chest in May which did show an unchanged nodule Lateral right upper lobe as well as moderate upper lobe predominant central lobar emphysema. Was on prednisone but currently out of medication and ever since she started IV infusions of immunotherapy seems to get worse for the first few days after infusions and then seems to get better she did take her prednisone which also helped. She denies any associate mops or hematemesis but does cough a lot of greenish-yellow sputum. Denies any current fever chills rigors mild sore throat no problems eating drinking swallowing. Review of Systems Constitutional: Negative for chills and fever. HENT: Positive for congestion, postnasal drip, sinus pressure and sore throat. Negative for troubleswallowing and voice change. Respiratory: Positive for cough, shortness of breath and wheezing. Cardiovascular: Negative for chest pain. Gastrointestinal: Negative for diarrhea, nausea and vomiting. [...] capsule by mouth in the morning and 1capsule before bedtime. Tkdszruchqv-Wqguuncxr-Qsozyo (Trelegy Ellipta) 100-62.5-25 MCG/ACT aerosol powder Inhale 1 Inhalation daily. 60 each 3 formoterol (Perforomist) 20 MCG/2ML nebulizer solution Take [...] Place 1 capsule (18 mcg) into inhaler andinhale daily. 3 capsule 0 zafirlukast (Accolate) 20 MG tablet Take 20 mg by mouth in the morning and 20 mg before bedtime. predniSONE (Deltasone) 10 MG tablet Take 4 tabs (40mg) daily for 3 days, then 3 tabs (30mg) daily for 3 days, 2 tabs (20mg) daily for 3 days, 1 tab (10 mg) daily for 3 days. 30 tablet 1 Facility-Administered Medications Prior to Visit Medication Dose Route Frequency Provider Last Rate Last Admin albuterol (2.5 MG/3ML) 0.083% nebulizer solution 2.5 mg 2.5 mg Nebulization Once Jazmin Moy PA-C ipratropium (Atrovent) 0.02 % nebulizer solution 0.5 mg 0.5 mg Nebulization Once Jazmin Moy PA-C Past Medical History: Diagnosis Date Asthma 2006 Breast cancer screening 04/2021 COPD (chronic obstructive pulmonary disease) ([facility]) 2013 Home O2 since 2014 Ex-smoker 2008 GERD (gastroesophageal reflux disease) History of idiopathic thrombocytopenic purpura 2005 resolved History of shingles 2020 left CN V Hypertension 2003 Hypothyroidism IBS (irritable bowel syndrome) 2000 per [facility] Immunoglobulin deficiency ([facility]) 2007 monthly IVIG infusion per Dr. Decker [facility] [place] Nodule of upper lobe of right lung no change per 2023 LDCT Osteoporosis [address] Field Renal stones Social History Tobacco Use Smoking status: Former Packs/day: 2 Types: Cigarettes Start date: 09/14/1955 Quit date: 12/01/2008 Years since quittin.8 Smokeless tobacco: Never Substance Use Topics Alcohol use: No Alcohol/week: 0.0 standard drinks of alcohol Past Surgical History: Procedure Laterality Date APPENDECTOMY CATARACT EXTRACTION W/ INTRAOCULAR LENS IMPLANT Bilateral CHOLECYSTECTOMY 2012 COLONOSCOPY 10/2018 due 2028 COLONOSCOPY 2008 Turowski DENTAL SURGERY dentures HEMORRHOID SURGERY 1994 MENISCECTOMY Left 2016 Damico PARTIAL HYSTERECTOMY 1994 DUB- Ovaries intact SKIN BIOPSY from left arm, under right breast, and forehead. All negative for CA TONSILLECTOMY (HISTORICAL) Family History Problem Relation Name Age of Onset High Blood Pressure Mother Crome alive age 98 Rheum arthritis Father Heart disease Father age 59 Other ([id number]) Sister adrenal issues No Known Problems Sister COPD Brother Josh age 65, smoker No Known Problems Brother No Known Problems Brother No Known Problems Brother Objective BP 138/69 Pulse 105 Temp 36.4 C (97.6 F) (Temporal) Ht 5' 3 (1.6 m) Wt 156 lb 12.8 oz (71.1 kg) SpO2 95% BMI 27.78 kg/m Physical Exam Vitals reviewed. Constitutional: General: [...] normal. No respiratory distress. Breath sounds: Wheezing and rhonchi present. No rales. Musculoskeletal: Cervical back: Normal range of motion and neck supple. Skin: General: Skin is warm and dry. Neurological: Mental Status: She is alert. Psychiatric: Mood and Affect: Mood normal. Data Reviewed and Summarized Labs: Imaging/Testing: Jazmin Moy PA-C 09/19/2023 Please note that portions of this note may have been completed with voice recognition software. Documentation reviewed prior to signing but minor errors in billiard table repairer may have occurred. documented in this encounterSEast [facility] City [id number] Telephone encounter Note* Telephone Encounter - Elida Amezquita MA - 09/19/2023 9:37 AM EDT Patient notified of referral. Asked to be sent thru My Chart and mailed. DONE [id number] Miscellaneous Notes* Telephone Encounter - Elida Amezquita MA - 09/19/2023 9:37 AM EDT Patient notified of referral. Asked to be sent thru My Chart and mailed. DONE * Telephone Encounter - Denise Lindquist - 09/13/2023 7:20 AM EDT Referral pended for dx and doctor's signature * Telephone Encounter - Radha Perkins LPN - 09/12/2023 9:42 AM EDT Please advise if referral for Dr. Davis is ok for her allergy injections. * Telephone Encounter - Tenzin aRmirez - 09/12/2023 9:19 AM EDT Name of caller: Dayana Contact phone number: [phone] Relationship to Patient: Patient Provider: Practice: [facility] Chief Complaint/Reason for Call: Patient called in regarding issue with insurance company. Patient stated she needs a referral to who she sees for her injections. Patient stated he is with [facility]. Patient will need a call back once referral is submitted so she can inform her insurance. Please advise. Best time of day caller can be reached:Any Patient advised that office/PCP has 24-48 business hours to return their call: No documented in this encounterSEast [facility] [id number] Telephone encounter Note* Telephone Encounter - Denise Lindquist - 09/13/2023 7:20 AM EDT Referral pended for dx and doctor's signature [id number] Miscellaneous Notes* Telephone Encounter - Denise Lindquist - 09/13/2023 7:20 AM EDT Referral pended for dx and doctor's signature * Telephone Encounter - Radha Perkins LPN - 09/12/2023 9:42 AM EDT Please advise if referral for Dr. Davis is ok for her allergy injections. * Telephone Encounter - Tenzin Lizzy Ramirez - 09/12/2023 9:19 AM EDT Name of caller: Dayana Contact phone number: [phone] Relationship to Patient: Patient Provider: Practice: [facility] Chief Complaint/Reason for Call: Patient called in regarding issue with insurance company. Patient stated she needs a referral to who she sees for her injections. Patient stated he is with [facility]. Patient will need a call back once referral is submitted so she can inform her insurance. Please advise. Best time of day caller can be reached:Any Patient advised that office/PCP has 24-48 business hours to return their call: No documented in this encounterSEast [facility] [id number] Telephone encounter Note* Telephone Encounter - Radha Perkins LPN - 09/12/2023 9:42 AM EDT Please advise if referral for Dr. Davis is ok for her allergy injections. [facility] [id number] Telephone encounter Note* Telephone Encounter - Tenzin Lizzy Ramirez - 09/12/2023 9:19 AM EDT Name of caller: Dayana Contact phone number: [phone] Relationship to Patient: Patient Provider: Practice: [facility] Chief Complaint/Reason for Call: Patient called in regarding issue with insurance company. Patient stated she needs a referral to who she sees for her injections. Patient stated he is with [facility]. Patient will need a call back once referral is submitted so she can inform her insurance. Please advise. Best time of day caller can be reached:Any Patient advised that office/PCP has 24-48 business hours to return their call: No [facility] [id number] Telephone encounter Note* Telephone Encounter - Dee Hunter MA - 09/11/2023 11:09 AM EDT Recent Visits Date Type Provider Dept 08/21/23 Office Visit Prosper Roman DO [facility] 05/21/23 Office Visit Jazmin Moy PA-C [facility] 04/26/23 Office Visit Inga Washington MD [facility] 03/28/23 Office Visit Jazmin Moy PA-C [facility] 03/23/23 Office Visit Jazmin Moy PA-C [facility] 02/06/23 Office Visit Jazmin Moy PA-C [facility] 10/10/22 Office Visit Prosper Roman DO [facility] Showing recent visits within past 365 days and meeting all other requirements Future Appointments No visits were found meeting these conditions. Showing future appointments within next 90 days and meeting all other requirements Requested Prescriptions Pending Prescriptions Disp Refills amLODIPine (Norvasc) 5 MG tablet 90 tablet 1 Sig: Take 1 tablet (5 mg) by mouth daily. Provider: Prosper Roman DO Overdue for visit: No If yes - patient scheduled? Yes Most recent labs completed in chart? Yes Verified pharmacy: yes Verified day(s) supplied: yes Verified refill(s) needed (previous prescription showing no refills in chart): Yes Have you received any controlled medications from any other provider? N/A Hypertension: Lab Results Component Value Date NA 139 12/19/2021 K 4.2 12/19/2021 EGFR 75 03/23/2023 BUN 21 03/23/2023 CREATININE 0.84 03/23/2023 [id number] Miscellaneous Notes* Telephone Encounter - Dee Hunter MA - 09/11/2023 11:09 AM EDT Recent Visits Date Type Provider Dept 08/21/23 Office Visit Prosper Roman DO [facility] 05/21/23 Office Visit Jazmin Moy PA-C [facility] 04/26/23 Office Visit Inga Washington MD [facility] 03/28/23 Office Visit Jazmin Moy PA-C [facility] 03/23/23 Office Visit Jazmin Moy PA-C [facility] 02/06/23 Office Visit Jazmin Moy PA-C [facility] 10/10/22 Office Visit Prosper Roman DO [facility] Showing recent visits within past 365 days and meeting all other requirements Future Appointments No visits were found meeting these conditions. Showing future appointments within next 90 days and meeting all other requirements Requested Prescriptions Pending Prescriptions Disp Refills amLODIPine (Norvasc) 5 MG tablet 90 tablet 1 Sig: Take 1 tablet (5 mg) by mouth daily. Provider: Prosper Roman DO Overdue for visit: No If yes - patient scheduled? Yes Most recent labs completed in chart? Yes Verified pharmacy: yes Verified day(s) supplied: yes Verified refill(s) needed (previous prescription showing no refills in chart): Yes Have you received any controlled medications from any other provider? N/A Hypertension: Lab Results Component Value Date NA 139 12/19/2021 K 4.2 12/19/2021 EGFR 75 03/23/2023 BUN 21 03/23/2023 CREATININE 0.84 03/23/2023 documented in this [facility]04-30-2024 History of Present illness Narrative* Prosper Roman DO - 08/21/2023 1:30 PM EDT Images from the original note were not included. [facility] [address] [place] [address] [address] [facility] [address] Visit type: Established Patient Reason for Visit: Follow-up (Med check ) and Wheezing Assessment / Plan: Dayana was seen today for follow-up and wheezing. Diagnoses and all orders for this visit: COPD exacerbation (HCC) (Primary) Comments: Recurrent, per florist's decorator recommend long-term Levaquin for COPD exacerbations. Prednisone refilled. Call road design draftsperson for guidance as well Primary hypertension Comments: Stable, continue amlodipine and spironolactone Centrilobular emphysema (HCC) - predniSONE (Deltasone) 10 MG tablet; Take 4 tabs (40mg) daily for 3 days, then 3 tabs (30mg) daily for 3 days, 2 tabs (20mg) daily for 3 days, 1 tab (10 mg) daily for 3 days. Very severe chronic obstructive pulmonary disease (HCC) Comments: Noted, reviewed past history in detail. Encouraged use of all her inhalers then switch to Trelegy. Increase Accolate to BID routine Orders: - predniSONE (Deltasone) 10 MG tablet; Take 4 tabs (40mg) daily for 3 days, then 3 tabs (30mg) daily for 3 days, 2 tabs (20mg) daily for 3 days, 1 tab (10 mg) daily for 3 days. Encounter for screening mammogram for malignant neoplasm of breast Comments: Mammogram ordered. Defers breast exam Orders: - Bilateral screening mammogram with tomosynthesis; Future Hypothyroidism, unspecified type Comments: Stable, continue Levothyroid Other orders - levoFLOXacin (Levaquin) 500 MG tablet; Take 1 tablet (500 mg) by mouth daily for 14 days. 35 Minutes spent on reviewing pertinent history, patient interview, physical exam, discussion of diagnosis and treatment and work-up options. Reviewed diagnosis of COPD in length. Urged her to continue routine follow-up with pulmonary and immunology. Subjective: Patient ID: Dayana Briggs is a 73 y.o. female. Wheezing ex-smoker with history of severe COPD on oxygen for many years presents with persistent cough and wheeze. Recently was given Levaquin and low-dose prednisone with partial relief. Called florist's decorator who started Levaquin and gave prednisone burst. Of note that physician is now recommending 2 weeks of antibiotic therapy for her exacerbations. Recently saw pulmonary and also had CT of the chest which showed no change in pulmonary nodule. She is wishing to switch over her multiple inhalers to Trelegy again. Of note May 16 PFT showed FEV1 of 31%. No change in fever headache or chest pain. No pleurisy. Eating and voiding well. No GI issues with high-dose prednisone. No dysuria or hematuria. Review of Systems Respiratory: Positive for wheezing. weight is stable. Appetite is good. No exertional chest pain or palpitations. Has never had a heartfailure. Denies orthopnea or edema. Acid reflux stable. No melena or blood. Bowels are regular. Colonoscopy due and 5 more years. She would like a mammogram but defers breast exam today. No change in anxiety or depression. Allergies Allergen Reactions Lisinopril Shortness of breath [...] capsule by mouth in the morning and 1capsule before bedtime. Sdpprpqigxa-Jyycdaeil-Ttckrl (Trelegy Ellipta) 100-62.5-25 MCG/ACT aerosol powder Inhale 1 Inhalation daily. 60 each 3 formoterol (Perforomist) 20 MCG/2ML nebulizer solution Take [...] Place 1 capsule (18 mcg) into inhaler andinhale daily. 3 capsule 0 zafirlukast (Accolate) 20 MG tablet Take 20 mg by mouth in the morning and 20 mg before bedtime. [DISCONTINUED] predniSONE (Deltasone) 10 MG tablet Take 4 tabs (40mg) daily for 3 days, then 3 tabs(30mg) daily for 3 days, 2 tabs (20mg) daily for 3 days, 1 tab (10 mg) daily for 3 days. 30 tablet 0 [DISCONTINUED] Roflumilast (Daliresp) 500 MCG tablet Take 1 tablet (500 mcg) by mouth daily. Current Facility-Administered Medications on File Prior to Visit Medication Dose Route Frequency [...] with hypoxia (HCC) Immunoglobulin deficiency (HCC) Hypertension Nodule of upper lobe of right lung IBS (irritable bowel syndrome) Primary osteoarthritis of left knee Very severe chronic obstructive pulmonary disease (HCC) Social History Tobacco Use Smoking status: Former Packs/day: 2 Types: Cigarettes Start date: 09/14/1955 Quit date: 12/01/2008 Years since quittin.7 Smokeless tobacco: Never Substance Use Topics Alcohol use: No Alcohol/week: 0.0 standard drinks of alcohol Past Surgical History: Procedure Laterality Date APPENDECTOMY CATARACT EXTRACTION W/ INTRAOCULAR LENS IMPLANT Bilateral CHOLECYSTECTOMY 2012 COLONOSCOPY 10/2018 due 2028 COLONOSCOPY 2008 Turowski DENTAL SURGERY dentures HEMORRHOID SURGERY 1994 MENISCECTOMY Left 2016 Damico PARTIAL HYSTERECTOMY 1994 DUB- Ovaries intact SKIN BIOPSY from left arm, under right breast, and forehead. All negative for CA TONSILLECTOMY (HISTORICAL) Family History Problem Relation Name Age of Onset High Blood Pressure Mother Crome alive age 98 Rheum arthritis Father Heart disease Father age 59 Other (67[address]) Sister adrenal issues No Known Problems Sister COPD Brother Josh age 65, smoker No Known Problems Brother No Known Problems Brother No Known Problems Brother Objective: BP 136/82 Pulse 76 Temp 36.7 C (98 F) (Temporal) Ht 5' 3 (1.6 m) Wt 158 lb (71.7 kg) SpO2 98% BMI 27.99 kg/m Physical Exam Constitutional: General: She is not in acute distress. Appearance: She is obese. She is not ill-appearing. HENT: Right Ear: Tympanic membrane normal. Left Ear: Tympanic membrane normal. Nose: Rhinorrhea present. No congestion. Mouth/Throat: Pharynx: No oropharyngeal exudate or posterior oropharyngeal erythema. Eyes: General: No scleral icterus. Conjunctiva/sclera: Conjunctivae normal. Neck: Vascular: No carotid bruit. Cardiovascular: Rate and Rhythm: Normal rate and regular rhythm. Pulses: Normal pulses. Heart sounds: Normal heart sounds. No murmur heard. Pulmonary: Comments: Coarse bilateral crackles throughout the lung hutchins. Mild rhonchi that clear with cough.No overt wheezing. Abdominal: General: Bowel sounds are normal. There is no distension. Palpations: Abdomen is soft. There is no mass. Tenderness: There is no abdominal tenderness. Comments: No hepatosplenomegaly masses or bruits. Good bowel sounds. Musculoskeletal: Cervical back: Neck supple. Right lower leg: No edema. Left lower leg: No edema. Lymphadenopathy: Cervical: No cervical adenopathy. Neurological: General: No focal deficit present. Mental Status: She is alert and oriented to person, place, and time. Deep Tendon Reflexes: Reflexes normal. Psychiatric: Mood and Affect: Mood normal. Thought Content: Thought content normal. documented in this [facility]03-27-2024 History of Present illness Narrative* Aubrey Dyer MD - 07/18/2023 11:40 AM EDT Images from the original note were not included. [facility]- Pulmonary and Sleep Medicine [address] [place] [address] PH: [phone] Visit type: An Established patient 07/18/2023 CHIEF COMPLAINT/REASON FOR REFERRAL: Chief Complaint Patient presents with Follow-up COPD Lung Nodule 3-MONTH APPT.- CT & PFT RESULTS CHRONIC RESP. FAILURE W/ HYPOXIA History of Present Illness Dayana Briggs is a 73 y.o. 1950 patient with a history of chronic respiratory failure oxygen dependent 2 L a cannula with his severe chronic obstructive pulmonary disease heavy tobacco smoker quit 2008 Currently she is on triple inhaler therapy with Trelegy elliptica, Daliresp and albuterol as needed She has CT chest as well as PFT which was reviewed interpreted by me CT chest did show emphysema Right upper lobe pulm nodule stable PFT did show severe chronic obstructive pulmonary disease She is having wheezing off and all lately requiring systemic steroids as needed She already had the flu vaccine She denies any fever chills rigors abdominal pain blurred vision swelling of the leg no weight loss MMRC Dyspnea Scale: Grade Description of Breathlessness [...] screening 04/2021 COPD (chronic obstructive pulmonary disease) ([facility]) 2014 Home O2 since 2014 Ex-smoker 2008 GERD (gastroesophageal reflux disease) History of idiopathic thrombocytopenic purpura 2006 resolved History of shingles 12/2020 left CN V Hypertension 2004 Hypothyroidism IBS (irritable bowel syndrome) 2000 2008 colonoscopy per - due 2018 Immunoglobulin deficiency (HCC) 2008 monthly IVIG infusion per Dr. Decker [place], [place] Nodule of upper lobe of right [...] mouth daily., Disp: 90 tablet, Rfl: 1 benzonatate (Tessalon) 100 MG capsule, Take 1 capsule (100 mg) by mouth 3 times daily as needed forcough. Do not crush or chew., Disp: 42 capsule, Rfl: 0 budesonide (Pulmicort) 0.5 MG/2ML nebulizer solution, USE [...] tablet, Take by mouth., Disp: , Rfl: Roflumilast (Daliresp) 500 MCG tablet, Take 1 tablet (500 mcg) by mouth daily. Do not start before May 18, 2023., Disp: 90 tablet, Rfl: 2 Roflumilast 250 MCG tablet, TAKE 1 TABLET BY MOUTH EVERY DAY, Disp: 30 tablet, Rfl: 0 spironolactone (Aldactone) [...] 20 mg before bedtime., Disp: , Rfl: Current Facility-Administered Medications: albuterol (2.5 MG/3ML) 0.083% nebulizer solution 2.5 mg, 2.5 mg, Nebulization, Once, Jazmin Moy PA-C ipratropium (Atrovent) 0.02 % nebulizer solution 0.5 mg, 0.5 mg, Nebulization, Once, Jazmin Moy PA-C Social History Social History Tobacco Use Smoking status: Former Packs/day: 2 Types: Cigarettes Start date: 09/14/1955 Quit date: 12/01/2008 Years since quittin.6 Smokeless tobacco: Never Substance Use Topics Alcohol use: No Alcohol/week: 0.0 standard drinks of alcohol FamilyHistory Family History Problem Relation Name Age of Onset Other (78798) Sister adrenal issues Rheum arthritis Father 58 No Known Problems Brother No Known Problems Brother High Blood Pressure Mother alive age 90 No Known Problems Sister Heart disease Father 58 age 58 No Known Problems Brother No Known Problems Brother Review of Systems Review of Systems Constitutional: Negative. HENT: Negative. Eyes: Negative. Respiratory: Positive for cough (PRODUCTIVE CLEAR MUCUS), shortness of breath and wheezing. Cardiovascular: Negative. Gastrointestinal: Negative. Endocrine: Negative. Genitourinary: Negative. Musculoskeletal: Negative. Skin: Negative. Allergic/Immunologic: Negative. Neurological: Negative. Hematological: Negative. Psychiatric/Behavioral: Negative. All other systems reviewed and are negative. Physical Exam Vitals: 07/18/23 1143 BP: 134/78 Pulse: 102 Temp: 36.5 C (97.7 F) TempSrc: Temporal SpO2: 93% Weight: 157 lb (71.2 kg) Height: 5' 3 (1.6 m) Physical Exam Vitals reviewed. Constitutional: General: [...] Wheezing present. No rhonchi or rales. Comments: Minimal end expiratory wheezing posteriorly Chest: Chest wall: No tenderness. Abdominal: General: Bowel sounds are normal. Palpations: Abdomen is soft. Tenderness: There is no abdominal tenderness. Hernia: No hernia is present. Musculoskeletal: General: No swelling. Cervical back: No rigidity or tenderness. Right lower leg: No edema. Left lower leg: No edema. Lymphadenopathy: Cervical: No cervical adenopathy. Skin: General: Skin is warm. Findings: No lesion or rash. Neurological: General: No focal deficit present. Mental Status: She is oriented to person, place, and time. Motor: No weakness. Psychiatric: Mood and Affect: Mood normal. Behavior: Behavior normal. Thought Content: Thought content normal. Data Reviewed and Summarized LABS and Studies: Available studies were personally reviewed. Salient findings summarized in HPI & A/P Imaging: Available studies were personally reviewed. Salient findings summarized in HPI & A/P PFT's: Pulmonary Functions Testing Results: FEV1 .72 L/ 37% DLCO 70% Assessment and Plan 1. Chronic respiratory failure with hypoxia (HCC) On 2 L a cannula Titrate to keep saturation 90 to 92% 2. Centrilobular emphysema (HCC) Severe disease On triple inhaler therapy with Trelegy and Daliresp She may go back to her stable Perforomist Spiriva and budesonide if insurance does not cover Trelegy - Roflumilast (Daliresp) 500 MCG tablet; Take 1 tablet (500 mcg) by mouth daily. - predniSONE (Deltasone) 10 MG tablet; Take 4 tabs (40mg) daily for 3 days, then 3 tabs (30mg) daily for 3 days, 2 tabs (20mg) daily for 3 days, 1 tab (10 mg) daily for 3 days. Dispense: 30 tablet; Refill: 0 3. Nodule of upper lobe of right lung Stable right upper lobe lung nodule on the CT chest of May [address] in a year from the last 1 4. Tobacco use disorder, severe, in sustained remission History of heavy smoking quit 2008 5. Very severe chronic obstructive pulmonary disease (HCC) Severe disease PFT reviewed as above Currently on trilogy as well as Daliresp Patient have mild bronchospasm we will treat with a systemic estrogen - Roflumilast (Daliresp) 500 MCG tablet; Take 1 tablet (500 mcg) by mouth daily. - predniSONE (Deltasone) 10 MG tablet; Take 4 tabs (40mg) daily for 3 days, then 3 tabs (30mg) daily for 3 days, 2 tabs (20mg) daily for 3 days, 1 tab (10 mg) daily for 3 days. Dispense: 30 tablet; Refill: 0 Had Flu vaccine already Aubrey Dyer MD Pulmonary, Critical Care, & Sleep Medicine Portions of the information within this encounter were entered using an electronic dictation system. Best attempts were made to edit/proofread the information prior to note completion. Despite the review of information, some errors may remain. If there are questions related to the information contained within the note please contact the provider documented in this [facility]03-27-2024 Instructions* Patient Instructions* Jaja Bert - 07/18/2023 11:40 AM EDT YOUR APPOINTMENT TODAY WAS WITH THE [facility] LUNG NODULE [facility], COPD CLINIC, PULMONARY AND SLEEP MEDICINE OFFICE. PLEASE CALL OUR OFFICE AT [phone] for our [place] office location or [phone] for our [place] location, IF YOU HAVE NOT RECEIVED YOUR [...] to make improvements. COVID-19 VACCINATION INFORMATION: PH. [phone] HEALTH.[email or web address]/VACCINE [facility] Central Scheduling [phone] [facility] Sleep Scheduling [phone] documented in this [facility]03-13-2024 Evaluation + Plan note* Assessment & Plan Note - ROSALIND Mulligan CNP - 07/04/2023 10:42 AM EDTAssociated Problem(s): COPD exacerbation (HCC) Will treat for acute exacerbation. Patient in no acute distress. Speaking full sentences without difficulty and pulse ox 97% on 2 L nasal cannula, most likely this is viral URI. (No fever or body aches-less likely covid or flu,rsv). Will treat with short burst of steroid. Patient is advised if symptoms worsen or pulse ox continues to drop that she should be seen in the emergency room. Advised to follow-up with her road design draftsperson as directed. [id number] Miscellaneous Notes* Assessment & Plan Note - ROSALIND Mulligan CNP - 07/04/2023 10:42 AM EDTAssociated Problem(s): COPD exacerbation (HCC) Will treat for acute exacerbation. Patient in no acute distress. Speaking full sentences without difficulty and pulse ox 97% on 2 L nasal cannula, most likely this is viral URI. (No fever or body aches-less likely covid or flu,rsv). Will treat with short burst of steroid. Patient is advised if symptoms worsen or pulse ox continues to drop that she should be seen in the emergency room. Advised to follow-up with her road design draftsperson as directed. documented in this [facility]03-13-2024 History of Present illness Narrative* Rosie Hope - 07/04/2023 8:40 AM EDT Patient was identified by name and Date of . * Denise Dean, [employer] - [employer] AND REPAIRER - 07/04/2023 8:40 AM EDT Images from the original note were not included. 07/04/2023 Dayana Briggs (: 1950) is a 73 y.o. female , POD scheduled, Established patient, here forevaluation of the following chief complaint(s): Sinus Problem and COPD ASSESSMENT/PLAN: 1. COPD exacerbation (HCC) Assessment & Plan: Will treat for acute exacerbation. Patient in no acute distress. Speaking full sentences without difficulty and pulse ox 97% on 2 L nasal cannula, most likely this is viral URI. (No fever or body aches-less likely covid or flu,rsv). Will treat with short burst of steroid. Patient is advised if symptoms worsen or pulse ox continues to drop that she should be seen in the emergency room. Advised to follow-up with her road design draftsperson as directed. Orders: - benzonatate (Tessalon) 100 MG capsule; Take 1 capsule (100 mg) by mouth 3 times daily as needed for cough. Do not crush or chew., Starting Sun07/04/2023, Until Sun08/03/2023 at 2359, Normal - predniSONE (Deltasone) 20 MG tablet; Take 3 tabs (60mg) daily for 3 days, then take 2 tabs (40mg)daily for 3 days, then take 1 tab (20mg) daily for 3 days., Normal Follow up for with specialist. SUBJECTIVE/OBJECTIVE: HPI - Dayana Briggs (: 1950) is a 73 y.o. female , Established patient of Dr. Roman, here for evaluation of the following chief complaint(s): Sinus Problem and COPD Presents today with 3 or 4 days of increased cough shortness of breath and wheezing. Patient is on continuous oxygen therapy at 2-2.5 L NC. Known emphysema, reports that her oxygen levels at home have been dropping down into the 80s during ambulation. At rest they are in the night. Denies any chestpain or increased shortness of breath above baseline at rest but has noticed increased shortness ofbreath with ambulation. No fever or chills. Cough is somewhat productive. Patient is established with pulmonology and will be seeing them on July 18, 2023. States that she has been using her nebulizer at least 3 times a day she has DuoNeb and budesonide. Also has Spiriva and Trelegy. Patient reports that she is going to stop the trilogy due to the expense and she does not think that it is helping. She will follow-up with the road design draftsperson regarding this. Reports having several exacerbations of her COPD, almost on a monthly basis. She was last given antibiotics and steroids last month. States it does not seem as bad this time. Prior to Admission medications Medication Sig Start Date End Date Taking? Authorizing Provider albuterol (2.5 MG/3ML) 0.083% nebulizer solution Take 3 mL (2.5 mg) by nebulization every 4 hours as needed for wheezing or shortness of breath. 09/06/22 09/06/23 Yes Aubrey Dyer MD albuterol 108 (90 Base) MCG/ACT inhaler Inhale 2 puffs every 4 hours as needed for shortness of breath. 10/11/22 Yes Prosper Roman, amLODIPine (Norvasc) 5 MG tablet Take 1 tablet (5 mg) by mouth daily. 03/23/23 Yes Jazmin Moy PA-C budesonide (Pulmicort) 0.5 MG/2ML nebulizer solution USE 1 VIAL VIA NEBULIZER TWICE A DAY 12/06/22 Yes Aubrey Dyer MD cholecalciferol (Vitamin D-3) 25 MCG (1000 UT) capsule Take 1 capsule by mouth in the morning and 1capsule before bedtime. 01/20/19 Yes Historical Provider, Mmyigssyydm-Gspzpjdnp-Domajc (Trelegy Ellipta) 100-62.5-25 MCG/ACT aerosol powder Inhale 1 Inhalation daily. 03/23/23 Yes Jamzin Moy PA-C formoterol (Perforomist) 20 MCG/2ML nebulizer solution Take 2 mL (20 mcg) by nebulization in the morning and 2 mL (20 mcg) in the evening. 12/06/22 Yes Aubrey Dyer MD ipratropium (Atrovent) 0.02 % nebulizer solution INHALE THE CONTENTS OF 1 VIAL VIA NEBULIZER 2 TIMES DAILY 02/08/22 Yes Historical Provider, ipratropium-albuterol (Duo-Neb) 0.5-2.5 mg/3 mL nebulizer solution Take 3 mL by nebulization 4 times daily as needed for wheezing. 12/06/22 Yes Aubrey Dyer MD levothyroxine (Synthroid, Levoxyl) 100 MCG tablet Take 1 tablet (100 mcg) by mouth daily for 180 doses. 03/23/23 09/19/23 Yes Jazmin Moy PA-C omeprazole (PriLOSEC) [address] capsule Take 1 capsule (20 mg) by mouth daily. 03/23/23 Yes Jazmin Moy PA-C Potassium Gluconate 2.5 MEQ tablet Take by mouth. 04/27/20 Yes Historical Provider, Roflumilast (Daliresp) 500 MCG tablet Take 1 tablet (500 mcg) by mouth daily. Do not start before May 18, 2023. 05/18/23 Yes Marjan Wall APRN - KRISTINA Roflumilast 250 MCG tablet TAKE 1 TABLET BY MOUTH EVERY DAY 05/04/23 Yes Joyce Brown APRN spironolactone (Aldactone) 25 MG tablet Take 1 tablet (25 mg) by mouth daily. 03/23/23 Yes Jazmin Moy PA-C tiotropium (Spiriva HandiHaler) [address] 1 capsule (18 mcg) into inhaler andinhale daily. 03/23/23 Yes Jazmin Moy PA-C zafirlukast (Accolate) 20 MG tablet Take 20 mg by mouth in the morning and 20 mg before bedtime. 10/30/14 Yes Historical Provider, Review of Systems Constitutional: Positive for activity change and fatigue. Negative for appetite change, chills and fever. HENT: Positive for congestion and rhinorrhea. Respiratory: Positive for cough, chest tightness, shortness of breath and wheezing. Cardiovascular: Negative for chest pain. Genitourinary: Negative for difficulty urinating. Neurological: Positive for headaches (sinus pressure). Vitals: 07/04/23 0836 BP: 132/81 Pulse: 106 Resp: 26 Temp: 37.1 C (98.7 F) TempSrc: Infrared SpO2: 97% Weight: 156 lb (70.8 kg) Physical Exam Constitutional: General: She is not in acute distress. Appearance: Normal appearance. She is obese. She is not ill-appearing. HENT: Head: Normocephalic and atraumatic. Right Ear: Tympanic membrane normal. Left Ear: Tympanic membrane normal. Nose: Congestion present. Mouth/Throat: Mouth: Mucous membranes are moist. Pharynx: Oropharynx is clear. No posterior oropharyngeal erythema. Eyes: Conjunctiva/sclera: Conjunctivae normal. Cardiovascular: Rate and Rhythm: Normal rate and regular rhythm. Pulses: Normal pulses. Heart sounds: Normal heart sounds. Pulmonary: Effort: No respiratory distress. Breath sounds: Wheezing and rhonchi present. Comments: Speaking full sentences without difficulty. Noted intermittent dry sounding cough Musculoskeletal: Right lower leg: No edema. Left lower leg: No edema. Lymphadenopathy: Cervical: No cervical adenopathy. Skin: General: Skin is warm and dry. Neurological: Mental Status: She is alert and oriented to person, place, and time. Psychiatric: Mood and Affect: Mood normal. Behavior: Behavior normal. Thought Content: Thought content normal. Judgment: Judgment normal. An electronic signature was used to authenticate this note. ROSALIND Mulligan CNP 07/04/2023 10:42 AM documented in this [facility]03-13-2024 Instructions* Patient Instructions* ROSALIND Mulligan CNP - 07/04/2023 8:40 AM EDT Follow up with road design draftsperson. documented in this [facility]02-19-2024 Telephone encounter Note* Telephone Encounter - Mira Sepulveda MA - 06/11/2023 1:37 PM EST Patient aware. [id number] Miscellaneous Notes* Telephone Encounter - Miranorman Sepulveda MA - 06/11/2023 1:37 PM EST Patient aware. * Telephone Encounter - Mira Sepulveda MA - 06/11/2023 8:32 AM EST Last OV:05/21/23 Scheduled:08/21/23 * Telephone Encounter - Vania Hardin RN - 06/08/2023 1:18 PM EST S: Patient spoke with [facility] nurse regarding COPD flare B: Onset of symptoms/concern 2 weeks A: Patient reports wheezing and cough with green mucous production. Sates symptoms began 2 weeks ago and have progressed, states she is wheezing but no more than her normal, denies chest pain, fevers, difficulty breathing. R: No appointments available today,Patient requesting prescriptions for Steroids and antibiotic be called into her pharmacy. Message to Provider, please advise. Advised Patient that if symptoms worsen or she develops chest pain, difficulty breathing she shouldgo to the emergency room. Patient understands care advice. No further needs at this time. Reason for Disposition Change in color of sputum (e.g., from white to yellow-green sputum) Protocols used: Cough - [id number] documented in this encounterSEast [facility] HospitalLeeghn[facility] Telephone encounter Note* Telephone Encounter - Miranorman Sepulveda MA - 06/11/2023 8:32 AM EST Last OV:05/21/23 Scheduled:08/21/23 [facility] [id number] Telephone encounter Note* Telephone Encounter - Vania Hardin RN - 06/08/2023 1:18 PM EST S: Patient spoke with [facility] nurse regarding COPD flare B: Onset of symptoms/concern 2 weeks A: Patient reports wheezing and cough with green mucous production. Sates symptoms began 2 weeks ago and have progressed, states she is wheezing but no more than her normal, denies chest pain, fevers, difficulty breathing. R: No appointments available today,Patient requesting prescriptions for Steroids and antibiotic be called into her pharmacy. Message to Provider, please advise. Advised Patient that if symptoms worsen or she develops chest pain, difficulty breathing she shouldgo to the emergency room. Patient understands care advice. No further needs at this time. Reason for Disposition Change in color of sputum (e.g., from white to yellow-green sputum) Protocols used: Cough - [id number] [facility] [id number] Telephone encounter Note* Telephone Encounter - ROSALIND Larsen CNP - 05/25/2023 11:[address] Dyer- seeing you next, sending as FYI. PFTs reviewed which shows very severe COPD with Asthma. Lung function looks about the same as priorwith FEV1 31%, same as prior. Since I saw her last on 04/17, she has been on prednisone twice from PCP for flare ups. She has a follow up with Dr Dyer in a few weeks. Per PCP notes, she did not tolerate Daliresp I put her on. Will need to consider chronic azithromycin or starting Dupixent injections which I think would benefit her. (Would need eval by Dr Boone in [place] once to get started). [facility] [employer] [id number] Miscellaneous Notes* Telephone Encounter - ROSALIND Larsen CNP - 05/25/2023 11:[address] Dyer- seeing you next, sending as FYI. PFTs reviewed which shows very severe COPD with Asthma. Lung function looks about the same as priorwith FEV1 31%, same as prior. Since I saw her last on 04/17, she has been on prednisone twice from PCP for flare ups. She has a follow up with Dr Dyer in a few weeks. Per PCP notes, she did not tolerate Daliresp I put her on. Will need to consider chronic azithromycin or starting Dupixent injections which I think would benefit her. (Would need eval by Dr Boone in [place] once to get started). documented in this [facility]01-29-2024 History of Present illness Narrative* Jazmin Moy PA-C - 05/21/2023 2:20 PM EST Images from the original note were not included. [facility] [address] [place] [address] [address] [facility] [address] Dept: [phone] Dept Loc: [phone] Visit type: Established Patient Reason for Visit: ER Follow-up (Neck pain and copd flare up ) Assessment and Plan 1. COPD exacerbation (HCC) - predniSONE (Deltasone) 20 MG tablet; Take 1 tablet (20 mg) by mouth daily for 21 days., Starting Sun05/21/2023, Until Sun06/11/2023, Normal - levoFLOXacin (Levaquin) 250 MG tablet; Take 1 tablet (250 mg) by mouth daily for 7 days., Starting Sun05/21/2023, Until Sun05/28/2023, Normal -Patient does not appear to be in acute distress although she feels more short of breath and feels like she needs more prednisone as she is out of it she states the lightheaded dizziness sensation that she had when she was seen in the ER is completely resolved. She has no other acute concerns otherthan the chronic and ongoing issues associated with her COPD exacerbations which are often frequentshe continues to follow-up with pulmonology they started her on a new medicine which she did not tolerate they did suggest in the near future starting her on Dupixent Follow up if symptoms worsen or fail to improve, for Next scheduled follow-up. Subjective HPI this is a 73-year-old female with an underlying history of emphysema, hypertension, IBS and hypothyroidism who presents to the office today for follow-up after ER evaluation on 05/13. Patient was subsequently seen by urogynecology on 05/15 for urinary incontinence. Patient was found to have stage III/IV uterine prolapse with previous history of hysterectomy. She was seen in the ER for neck pain. Patient reported a history of back and neck pain between her shoulder blades that radiates into both shoulders. Reports the pain an 8 out of 10 with movement. Ultimately she was told by the ER if her symptoms no better in 3 to 5 days to contact PCP for possible MRI. Dizziness is better, right shoulder is locked and chronic and breathing is chronic. She states she feels little more short of breath and having ongoing issues with wheezing. She continues to follow-up with pulmonology she is in the office today stating that her breathing is getting worse again and she is requesting prescription of prednisone as well as antibiotics. We discussed use of different antibiotics that she is tolerated Zithromax in the past she states she is requesting Levaquin we discussed indications and use of Levaquin that I think caused tendon rupture as it is a scott quinolone and can be dangerous for that reason we will scale back the dosing she is understanding of this. As this is a ongoing chronic issue with persistent periodic exacerbations. Review of Systems Constitutional: Negative for chills and fever. HENT: Negative for congestion and sore throat. Respiratory: Positive for cough, chest tightness, shortness of breath and wheezing. Cardiovascular: Negative for chest pain. Gastrointestinal: Negative for abdominal pain, diarrhea, nausea and vomiting. Genitourinary: Negative for difficulty urinating, dysuria, frequency and urgency. Musculoskeletal: Negative for back pain. Neurological: Positive for light-headedness (Has since resolved). Negative for dizziness. All other systems reviewed and are negative. [...] capsule by mouth in the morning and 1capsule before bedtime. Xhrslgmfdlh-Kjdsgcjyj-Phsprs (Trelegy Ellipta) 100-62.5-25 MCG/ACT aerosol powder Inhale [...] MEQ tablet Take by mouth. Roflumilast (Daliresp) 500 MCG tablet Take 1 tablet (500 mcg) by mouth daily. Do not start before May 18, 2023. 90 tablet 2 Roflumilast 250 MCG tablet TAKE 1 TABLET BY MOUTH EVERY DAY 30 tablet 0 spironolactone (Aldactone) 25 MG tablet Take 1 tablet (25 mg) by mouth daily. 90 tablet 1 tiotropium (Spiriva HandiHaler) [address] 1 capsule (18 mcg) into inhaler andinhale daily. 3 capsule 0 zafirlukast (Accolate) 20 MG tablet Take 20 mg by mouth in the morning and 20 mg before bedtime. Diclofenac Sodium (Voltaren) 1 % gel Apply 2 g topically 2 times daily. (Patient not taking: Reported on 05/21/2023) 150 g 1 Facility-Administered Medications Prior to Visit Medication Dose Route Frequency Provider Last Rate Last Admin albuterol (2.5 MG/3ML) 0.083% nebulizer solution 2.5 mg 2.5 mg Nebulization Once Jazmin Moy PA-C ipratropium (Atrovent) 0.02 % nebulizer solution 0.5 mg 0.5 mg Nebulization Once Jazmin Moy PA-C Past Medical History: Diagnosis Date Asthma 2006 Breast cancer screening 04/2021 COPD (chronic obstructive pulmonary disease) (HCC) 2014 Home O2 since 2014 Ex-smoker 2008 GERD (gastroesophageal reflux disease) History of idiopathic thrombocytopenic purpura 2006 resolved History of shingles 12/2020 left CN V Hypertension 2004 Hypothyroidism IBS (irritable bowel syndrome) 2000 2008 colonoscopy per - due 2018 Immunoglobulin deficiency (HCC) 2008 monthly IVIG infusion per Dr. Decker [place], [place] Nodule of upper lobe of right [...] Problem Relation Name Age of Onset Other (94925) Sister adrenal issues Rheum arthritis Father 58 No Known Problems Brother No Known Problems Brother High Blood Pressure Mother alive age 90 No Known Problems Sister Heart disease Father 58 age 58 No Known Problems Brother No Known Problems Brother Objective BP 120/58 (BP Location: Left arm, Patient Position: Sitting, BP Cuff Size: Large adult) Pulse 100 Temp 36.7 C (98 F) (Temporal) Ht 5' 3 (1.6 m) Wt 155 lb (70.3 kg) SpO2 96% BMI 27.46 kg/m Physical Exam Vitals reviewed. Constitutional: General: [...] normal. No respiratory distress. Breath sounds: Wheezing and rhonchi present. Comments: Appears in her usual state of health no obvious signs of respiratory distress conversant with audible wheezing inspiratory and expiratory mild tripod but no overt or obvious signs of respiratory distress Chest: Chest wall: No tenderness. Musculoskeletal: Cervical back: Normal range of motion and neck supple. Right lower leg: No edema. Left lower leg: No edema. Skin: General: Skin is warm and dry. Neurological: Mental Status: She is alert. Psychiatric: Mood and Affect: Mood normal. Data Reviewed and Summarized Labs: Imaging/Testing: Jazmin Moy PA-C 05/21/2023 Please note that portions of this note may have been completed with voice recognition software. Documentation reviewed prior to signing but minor errors in billiard table repairer may have occurred. documented in this [facility]01-26-2024 Telephone encounter Note* Telephone Encounter - Mone Bob MA - 05/18/2023 9:25 AM EST Triage message reviewed with clinical staff. Patient appointment confirmed. PCP will assess at appointment visit. [id number] Miscellaneous Notes* Telephone Encounter - Mone Bob MA - 05/18/2023 9:25 AM EST Triage message reviewed with clinical staff. Patient appointment confirmed. PCP will assess at appointment visit. * Telephone Encounter - Sara Mancilla RN - 05/18/2023 9:04 AM EST S Patient calling with neck pain B ED 05/13 A Patient calling with neck pain. Back or neck between shoulder blades. Radiates to both shoulders.Tolerable at rest but 8/10 with any movement. Does not shoot down arms, no numbness or tingling. Istaking childrens motrin which does help some. Was told by ED if no better in 3-5 days to contact pcp for possible MRI R Patient scheduled for soonest OV Sunday with Jazmin. TE sent to office for provider review. Insurance verified. Advised ED over the weekend for severe symptoms. Reason for Disposition MODERATE neck pain (e.g., interferes with normal activities like work or school) Protocols used: Neck Pain or [id number] documented in this [facility]01-26-2024 Telephone encounter Note* Telephone Encounter - Sara Mancilla RN - 05/18/2023 9:04 AM EST S Patient calling with neck pain B ED 05/13 A Patient calling with neck pain. Back or neck between shoulder blades. Radiates to both shoulders.Tolerable at rest but 8/10 with any movement. Does not shoot down arms, no numbness or tingling. Istaking childrens motrin which does help some. Was told by ED if no better in 3-5 days to contact pcp for possible MRI R Patient scheduled for soonest OV Sunday with Jazmin. TE sent to office for provider review. Insurance verified. Advised ED over the weekend for severe symptoms. Reason for Disposition MODERATE neck pain (e.g., interferes with normal activities like work or school) Protocols used: Neck Pain or [id number] [facility] [id number] Telephone encounter Note* Telephone Encounter - Berna Corrales - 05/17/2023 3:09 PM EST Name of caller: Dayana Contact phone number: [phone] Relationship to Patient: patient Provider: Dr Foley Practice: [facility] Chief Complaint/Reason for Call: pt called to let DR Foley know she will hold off for any procedures until next year. She will call to schedule a follow up closer to next year. Best time of day caller can be reached: AM Patient advised that office/PCP has 24-48 business hours to return their call: Yes [facility] [id number] Miscellaneous Notes* Telephone Encounter - Berna Corrales - 05/17/2023 3:09 PM EST Name of caller: Dayana Contact phone number: [phone] Relationship to Patient: patient Provider: Dr Foley Practice: [facility] Chief Complaint/Reason for Call: pt called to let DR Foley know she will hold off for any procedures until next year. She will call to schedule a follow up closer to next year. Best time of day caller can be reached: AM Patient advised that office/PCP has 24-48 business hours to return their call: Yes documented in this [facility]01-23-2024 History of Present illness Narrative* Vic Foley MD - 05/15/2023 9:30 AM EST HPI Chief Complaint Patient presents with 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 73 y.o. female Complaints started 5 years ago. Getting unchanged now. Also feel as if something is falling out of the vagina; ball/bulge in thevagina. Getting worse during afternoon/evening. Pt does not manipulate to void or have BM. Stress incontinence: yes, but only with full bladder Urgency: no Urge incontinence: no Frequency: yes, urinates every 2 hours during the day Nocturia: yes, 2 and 3 x per night Enuresis: No Pad use: none Feels like she can empty her bladder well. No recurrent UTI. No macroscopic hematuria. Sexual Activity: No; Dyspareunia: N/A Constipation: No Other bowel problems: None. Past Surgical History: Procedure Laterality Date APPENDECTOMY CATARACT EXTRACTION W/ INTRAOCULAR LENS IMPLANT Bilateral CHOLECYSTECTOMY 2013 COLONOSCOPY 11/05/2018 Repeat colonoscopy 10 years. COLONOSCOPY 2008-Repeat due 2018 DENTAL SURGERY dentures HEMORRHOID SURGERY 1995 MENISCECTOMY Left 07/06/2015 [place] SKIN BIOPSY from left arm, under right breast, and forehead. All negative for CA TONSILLECTOMY (HISTORICAL) TOTAL VAGINAL HYSTERECTOMY 1994 Ovaries intact Past Medical History: Diagnosis Date Asthma 2006 Breast cancer screening 04/2021 COPD (chronic obstructive pulmonary disease) ([facility]) 2014 Home O2 since 2015 Ex-smoker 2008 GERD (gastroesophageal reflux disease) History of idiopathic thrombocytopenic purpura 2006 resolved History of shingles 12/2020 left CN V Hypertension 2004 Hypothyroidism IBS (irritable bowel syndrome) 2000 2008 colonoscopy per 2018 Immunoglobulin deficiency ([facility]) 2008 monthly IVIG infusion per Dr. Decker, [place], [place] Nodule of upper lobe of right lung no change per 07/13 CT Renal stones Current Outpatient Medications Medication Sig Dispense Refill albuterol (2.5 MG/3ML) [...] capsule by mouth in the morning and 1capsule before bedtime. Diclofenac Sodium (Voltaren) 1 % gel Apply 2 g topically 2 times daily. 150 g 1 Icziyfzhitn-Edysomkpt-Naogej (Trelegy Ellipta) 100-62.5-25 MCG/ACT aerosol powder Inhale [...] Gluconate 2.5 MEQ tablet Take by mouth. [START ON 05/18/2023] Roflumilast (Daliresp) 500 MCG tablet Take 1 tablet (500 mcg) by mouth daily. Do not start before May 18, 2023. 90 tablet 2 Roflumilast 250 MCG tablet TAKE 1 TABLET BY MOUTH EVERY DAY 30 tablet 0 tiotropium (Spiriva HandiHaler) [address] 1 capsule (18 mcg) into inhaler andinhale daily. 3 capsule 0 zafirlukast (Accolate) 20 MG tablet Take 20 mg by mouth in the morning and 20 mg before bedtime. spironolactone (Aldactone) 25 MG tablet Take 1 tablet (25 mg) by mouth daily. (Patient not taking: Reported on 04/17/2023) 90 tablet 1 Current Facility-Administered Medications Medication Dose Route Frequency Provider Last Rate Last Admin albuterol (2.5 MG/3ML) 0.083% nebulizer solution 2.5 mg 2.5 mg Nebulization Once Jazmin Moy PA-C ipratropium (Atrovent) 0.02 % nebulizer solution 0.5 mg 0.5 mg Nebulization Once Jazmin Moy PA-C OB History No obstetric history on file. Allergies Allergen Reactions Lisinopril Shortness of breath [...] Other reaction(s): Hives Other reaction(s): Hives, U BP 134/84 Ht 5' 3 (1.6 m) Wt 155 lb (70.3 kg) BMI 27.46 kg/m Physical Exam Vulva: atrophic Vagina: atrophic Cervix: surgicallyabsent Stage 3-4 vaginal prolapse after hysterectomy Levators: 2/5 Urethra: Hypermobility: Yes Incontinence: Supine: yes Bimanual: no adnexal masses felt Rectal: good tone Assessment: Diagnosis Plan 1. Bladder prolapse, female, acquired [facility] 2. Vaginal discharge [facility] 3. Incontinence in female [facility] I spent a total time of 45 minutes caring for this patient today. The patient was seen and examined. I have also spent time communicating results to the patient, counseling/educating the patient, documenting in the medical record. I discussed the diagnosis and importance of compliance with the treatment plan. The patient has symptomatic stage III-IV vaginal prolapse after hysterectomy. The findings and treatment options were discussed with the patient. Observation, pessary, pelvic floor therapy, and surgery were discussed with the patient. She was informed of different surgical options and the risks, benefits and alternatives were discussed in detail. All questions were answered to her satisfaction. She is a candidate for reconstructive pelvic surgery. I discussed the approach to her symptoms vaginally and abdominally. I explained that her prolapse could be corrected via either route. Also [place] tissue repair vs abdominal mesh (or biological graft - xenografts, autografts, allografts) was discussed in detail. All benefits, risks, complications, and alternatives were reviewed. The patient was made aware that a [place] tissue vaginal repair is less invasive than an abdominal procedure with graft augmentation. However the success rate of graft augmentation abdominal procedures seem to be higher than vaginal [place] tissue repairs at the expense of increase risks for complications. Patient was made aware that chronic postoperative pain and severe dyspareunia is more likely after sacrocolpopexy. I also discussed the possibility of using biological materials for sacrocolpopexy instead of synthetic materials. The patient would prefer to proceed with abdominal sacralcolpopexy with synthetic mesh and I have counseled her accordingly. The patient understands the purpose of each portion of the surgery. She understands the risks, which include but are not limited to pain (acute postoperative and/for chronic), bleeding, infection, fistula formation, injury to adjacent organs, including the bladder, bowel (possibility of a colostomywas discussed and explained), urethra, ureters, blood vessels and nerves. The risk of mesh erosion/exposure, pain after mesh insertion, and dyspareunia was explained in detail. She understands the possibility of additional surgery and/or re-operation to address operative complications. She is awareof the risks of anesthesia, blood clots, and possible need for transfusion of blood products. She is aware of the possibility of urinary retention and the need for catheterization post-operatively. She understands that no operation can provide a 100% guarantee, and that recurrence of prolapse is possible in the future. She understands that this operation is designed to treat prolapse specifically, and does not address urinary incontinence or other symptoms of overactive bladder. The patient demonstrated her understanding of the above and asked appropriate questions. All her questions were answered. Due to patient's multiple comorbidities I have recommended observation for now or pessary. However the patient does not want to try pessary even though she understood that this is the least invasive treatment with the lowest risks. I have also discussed colpocleisis. However, the patient would liketo be sexually active in the future and she declined colpocleisis. We discussed that a vaginal sacrospinous ligament fixation with anterior and posterior repair is a minimally invasive procedure thatwe will keep her vagina open to have intercourse in the future. The patient understand that this leonora higher failure rate than robotic assisted sacrocolpopexy with synthetic mesh. However, sacrospinous ligament fixation is less invasive with low risks for the patient. All risks, benefits, alternatives were discussed with the patient. The patient understood that she is a high risk surgical candidate and, she takes risks if she decides to proceed with surgery. She will need medical clearance before proceeding. Occult stress urinary incontinence discussed and explained. She understood that the prolapse repairmay make EMILY worse or it may unmask an occult EMILY. Referral to UDS was offered and extensively discussed. The options to add an anti incontinence procedure at the time of prolapse repair or wait and perform an interval anti incontinence procedure after the prolapse surgery were discussed with the patient. After all her questions were answered in detail, she decided to proceed with only prolapse repair and reassess EMILY thereafter. Plan: Expectant management for now. The patient will discuss with her and let me know her decision. Possible sacrospinous ligament fixation. Patient is a high risk for abdominal sacrocolpopexy. documented in this [facility]01-04-2024 History of Present illness Narrative* Inga Washington MD - 04/26/2023 8:20 AM EST Images from the original note were not included. [facility] [address] [place] [address] [address] [facility] [address] Dept: [phone] Dept Loc: [phone] Reason for Visit: Vaginal Discharge (Pt reports greenish-yellow discharge, pt started taking an ATBshe had at home and it has started to clear up ), Conjunctivitis (Pt started using old drops she had at home for this ), and Wheezing Assessment and Plan 1. Bladder prolapse, female, acquired - [facility] 2. Vaginal discharge - [facility] Urogynecology - Vaginitis Panel MVP PCR 3. Incontinence in female - [facility] 4. COPD exacerbation (HCC) empirically started patient on Levaquin as well as prednisone due to herallergies. If no improvement would recommend a chest x-ray also recommend she follow back up with pulmonology. - levoFLOXacin (Levaquin) 250 MG tablet; Take 1 tablet (250 mg) by mouth daily for 7 days., Starting Lana 04/26/2023, Until Sun05/03/2023, Normal - predniSONE (Deltasone) 20 MG tablet; [...] include vaginal discharge. The patient's pertinent negatives includeno genital itching, genital lesions, genital odor or [...] capsule by mouth in the morning and 1capsule before bedtime. Diclofenac Sodium (Voltaren) 1 % gel Apply 2 g topically 2 times daily. 150 g 1 Ukqwzfnsikg-Lzyqnvoyr-Rkuvdi (Trelegy Ellipta) 100-62.5-25 MCG/ACT aerosol powder Inhale [...] Place 1 capsule (18 mcg) into inhaler andinhale daily. 3 capsule 0 zafirlukast (Accolate) 20 [...] screening 04/2021 COPD (chronic obstructive pulmonary disease) ([facility]) 2014 Home O2 since 2015 Ex-smoker 2008 GERD (gastroesophageal reflux disease) History of idiopathic thrombocytopenic purpura 2006 resolved History of shingles 12/2020 left CN V Hypertension 2004 Hypothyroidism IBS (irritable bowel syndrome) 2000 2008 colonoscopy per Turowski- due 2018 Immunoglobulin deficiency (HCC) 2007 monthly IVIG infusion per Dr. Decker [facility], [place] Nodule of upper lobe of right lung [...] Problem Relation Name Age of Onset Other (88959) Sister adrenal issues Rheum arthritis Father 58 [...] Influenza Vaccine (1) 12/22/2022 COVID-19 Vaccine ( season) 2022 TSH Level 03/23/2024 DTaP/Tdap/Td Vaccines [...] kg/m Physical Exam Exam conducted with a medical interpreter present. HENT: Mouth/Throat: Mouth: Mucous membranes are [...] Narrative: Patient Name: DAYANA BRIGGS : 1950 [facility]#: [id number] Exam Date/Time: 03/28/2023 09:15 Procedure: XR CHEST [...] EST Inga Washington MD documented in this [facility]12-29-2023 Telephone encounter Note* Telephone Encounter - Jaja Noel - 04/20/2023 9:20 AM EST Benefit covers Plan and No prior Auth is required. [id number] Miscellaneous Notes* Telephone Encounter - Jaja Noel - 04/20/2023 9:20 AM EST Benefit covers Plan and No prior Auth is required. * Telephone Encounter - Jaja Noel - 04/20/2023 9:19 AM EST Benefit cover plan. No Prior Auth Needed. * Telephone Encounter - ROSALIND Larsen CNP - 04/19/2023 4:02 PM EST I believe this may need a PA?? * Telephone Encounter - Catherine Kent - 04/18/2023 3:15 PM EST Last follow up: 04/17/2023 Next appointment: 07/18/2023 Allergies Allergen Reactions Lisinopril Shortness of breath [...] Other reaction(s): Hives Other reaction(s): Hives, U Requested Prescriptions Pending Prescriptions Disp Refills Roflumilast 250 MCG tablet [Pharmacy Med Name: ROFLUMILAST 250 MCG TABLET] 30 tablet 0 Sig: TAKE 1 TABLET BY MOUTH EVERY DAY documented in this [facility]SEast [id number] Telephone encounter Note* Telephone Encounter - Jaja Noel - 04/20/2023 9:19 AM EST Benefit cover plan. No Prior Auth Needed. [id number] Telephone encounter Note* Telephone Encounter - ROSALIND Larsen CNP - 04/19/2023 4:02 PM EST I believe this may need a PA?? [facility] [id number] Telephone encounter Note* Telephone Encounter - Catherine Kent - 04/18/2023 3:15 PM EST Last follow up: 04/17/2023 Next appointment: 07/18/2023 Allergies Allergen Reactions Lisinopril Shortness of breath [...] Other reaction(s): Hives Other reaction(s): Hives, U Requested Prescriptions Pending Prescriptions Disp Refills Roflumilast 250 MCG tablet [Pharmacy Med Name: ROFLUMILAST 250 MCG TABLET] 30 tablet 0 Sig: TAKE 1 TABLET BY MOUTH EVERY DAY [facility] [id number] History of Present illness Narrative* ROSALIND Larsen CNP - 04/17/2023 11:20 AM EST Images from the original note were not included. [facility] [address] [facility] [address] Dept: [phone] Dept Date of Service: 04/17/2023 Visit type: An Established patient Chief Complaint/Reason for Referral: 3 month follow up SUBJECTIVE History of Present Illness: Dayana Briggs ( 1950) is a 72 y.o. female patient, with significant PMHx chronic hypoxic respiratory failure on chronic 2L, severe COPD, Immunoglobulin deficiency and prior smoker here 3month follow up. She reports a history of [...] antibiotics which seem to give her temporary relief.She also reports chronic nasal congestion. Recent CXR did not show any PNA. She lives and cares for her grandchildren and she reports are always sick. She gets immunoglobulin infusions monthly with Dr Davis/[place]/Allergy immunology. She does not think these help [...] screening 04/2021 COPD (chronic obstructive pulmonary disease) ([facility]) 2014 Home O2 since 2014 Ex-smoker 2008 GERD (gastroesophageal reflux disease) History of idiopathic thrombocytopenic purpura 2006 resolved History of shingles 12/2020 left CN V Hypertension 2004 Hypothyroidism IBS (irritable bowel syndrome) 2000 2008 colonoscopy per Turowski- due 2019 Immunoglobulin deficiency (HCC) 2008 monthly IVIG infusion per Dr. Decker [facility], [place] Nodule of upper lobe of right lung no change per 07/13 CT Renal stones SURGICAL HISTORY: Past Surgical History: Procedure Laterality Date APPENDECTOMY CATARACT EXTRACTION W/ INTRAOCULAR LENS IMPLANT Bilateral CHOLECYSTECTOMY 2013 COLONOSCOPY 11/05/2018 Repeat colonoscopy 10 years. COLONOSCOPY 2008 [place]-Repeat due 2018 DENTAL SURGERY dentures HEMORRHOID SURGERY 1995 MENISCECTOMY Left 07/06/2015 [place]ico SKIN BIOPSY from left arm, under right breast, and forehead. All negative for CA TONSILLECTOMY (HISTORICAL) TOTAL VAGINAL HYSTERECTOMY 1994 Ovaries intact ALLERGIES: Allergies Allergen Reactions Lisinopril Shortness of breath Cough and wheezing Other Other Envirmental allergies trees pollen rag weed, dougalss Ampicillin Other reaction(s): Other, stomach issues Aspirin [...] times daily., Disp: 150 g, Rfl: 1 Ovrufxbclbm-Jeqxxnpag-Yhxqim (Trelegy Ellipta) 100-62.5-25 MCG/ACT aerosol powder , [...] Take 1 tablet (500 mcg) by mouth daily.Do not start before May 18, 2023., Disp: 90 tablet, Rfl: 2 spironolactone (Aldactone) 25 MG tablet, Take 1 tablet (25 mg) by mouth daily. (Patient not taking:Reported on 04/17/2023), Disp: 90 tablet, Rfl: 1 [...] Problem Relation Name Age of Onset Other (86971) Sister adrenal issues Rheum arthritis Father 58 No Known Problems Brother No Known Problems Brother High Blood Pressure Mother alive age 90 No Known Problems Sister Heart disease Father 58 age 58 No Known Problems Brother No Known Problems Brother REVIEW OF SYSTEMS: Review of Systems Constitutional: Positive for activity change and fatigue. Negative for chills, fever and unexpectedweight change. HENT: Positive for congestion. Negative for [...] -Receives monthly infusions for replacement with her facility manager. -She is also on Accolate which was given to her by her facility manager. 6. Cigarette smoker --I will order lung screening due in June 2023 given her prior smoking history of 60 pack years, quitting 14 years ago. She is agreeable to screening. - CT lung screening low dose; Future FOLLOW UP: Patient will complete PFTs, CT chest and follow-up with Dr. Middleton in 3 months. ROSALIND Samano CNP Pulmonary & Sleep Medicine documented in this [facility]12-26-2023 Instructions* Patient Instructions* Chelsie Narvaez MA - 04/17/2023 11:20 AM EST YOUR APPOINTMENT TODAY WAS WITH THE [facility] L[facility]G [facility]ODULE [facility], COPD CLINIC, PULMONARY AND SLEEP MEDICINE OFFICE. PLEASE CALL OUR OFFICE AT [phone] for our [facility] location or [phone] for our [place] location, IF YOU HAVE NOT RECEIVED YOUR [...] to make improvements. COVID-19 VACCINATION INFORMATION: PH. [phone] [email or web address] [facility] Central Scheduling [phone] [facility] Sleep Scheduling [phone] documented in this [facility]12-22-2023 Telephone encounter Note* Telephone Encounter - Mira Sepulveda MA - 04/13/2023 9:07 AM EST Pt aware. Stated she went to [place] ED yesterday and was given a steroid. Will follow up with pulmonology on Sunday [facility] [id number] Miscellaneous Notes* Telephone Encounter - Mira Sepulveda MA - 04/13/2023 9:07 AM EST Pt aware. Stated she went to [place] ED yesterday and was given a steroid. Will follow up with pulmonology on Sunday * Telephone Encounter - Dee Hunter MA - 04/12/2023 11:04 AM EST Please advise if you would like anything different done for this patient * Telephone Encounter - Abena Villagomez RN - 04/12/2023 10:40 AM EST Patient complaining of ongoing dry cough, wheezing. See previous TE. Patient reports some improvement since starting Prednisone but still wheezing. Denies fever, chest pain, difficulty breathing. No OV available. Declines POD. Patient informed message would be sent to provider. Patient advised to call back or go to UC/ED with worsening symptoms. * Telephone Encounter - Maine Martines RN - 04/06/2023 1:42 PM EST S: Patient spoke with [facility] nurse regarding request for prednisone taper. B: Onset of symptoms/concern began today. A: Patient states she is having another COPD flare-up. Has been around sick kids who have gotten her sick again. Was treated with prednisone taper 60-40-20 on 03/23, which did help. Patient currentlyhas audible wheezing over the phone and cough [...] Dr. Roman. Spoke to Kasia, pharmacist at [facility], and gave verbal order as above. Called patient back and left message with Starr that meds were called into pharmacy. No further needs at this time. instructed to have patient call back with new or worsening symptoms. Reason for Disposition Prescription refill request for ESSENTIAL medicine (i.e., likelihood of harm to patient if not taken) and triager unable to refill per department policy Protocols used: Medication Refill and Renewal [id number] documented in this [facility]12-21-2023 Discharge summary Author Hayder Bob [facility] April 12, 2023 3:26pm Note Date/Time April 12, 2023 1:04pm [facility] Medical Records Department [address] [place] [address] Emergency Department Summary 04/12/23 MR#: [id number] Acct: [id number] Name: DAYANA BRIGGS Rep #:[id number] : 1950 72 From: Hayder Bob MD PCP: Dr. Prosper Roman, DO Status:RE G ER Location: ED HPI History of Present Illness Chief Complaint: Shortness of Breath Informant: patient Onset/Context/Timing Onset: Weeks Context: gradual Timing: Continuous Quality: Positive for Wheezing Current Severity: Mild Maximum Severity: Mild Worsened by: Exertion and Coughing Relieved by: Oxygen Associated Symptoms cough, fever and green sputum Chest Pain: Positive for None Narrative Narrative: -year-old female history of COPD on 2 L of oxygen at home. Complains shortness of breath with URI symptoms for the last 3 to 4 weeks. She initially was on doxycycline then Levaquin and she is also been on prednisone and currently is troy tapered course. She had a negative chest x-ray. States that she still wheezing and has a productive cough with yellow phlegm. With a low-grade fever. No history of DVT or PE. No hemoptysis. No chest pain. No leg pain or swelling. No recent travel, surgery or immobilization. No recent hospitalization. PE Risk Factors: Negative for Cancer, OCP + Smoking + > 35, Prior DVT or PE, Recent immobilization, Recent surgery or Recent travel Prior similar symptoms: Yes Recent Illness/Hospitalization: No PFSH PFSH Medical History Acute and chronic respiratory failure with hypoxia Anemia COPD (chronic obstructive pulmonary disease) Former smoker GERD (gastroesophageal reflux disease) HTN (hypertension) Hypothyroid Immune deficiency disorder Leukocytosis Obesity (BMI 30.0-34.9) On home oxygen therapy Osteoporosis RSV infection Thrombocytosis Thrush Home Medications albuterol sulfate 90 mcg/actuation aerosol inhaler (ProAir HFA) 2 puff inhalation Q4H PRN PRN Sob &/Or Wheezing 07/22/14 [History Last Taken Unknown] budesonide 0.5 mg/2 mL suspension for nebulization 1 applicatio inhalation BID breathing 07/22/14 [History Last Taken 07/21/14] levothyroxine 100 mcg tablet 100 mcg PO DAILY thyroid 07/22/14 [History Last Taken 07/22/14] omeprazole 20 mg capsule,delayed release 20 mg PO DAILY stomach 07/22/14 [History Last Taken 07/21/14] albuterol sulfate 2.5 mg/3 mL (0.083 %) solution for nebulization 2.5 mg inhalation Q4H PRN shortness of breath or wheezing 05/29/22 [History Last Taken Unknown] amlodipine 5 mg tablet 5 mg PO DAILY 05/29/22 [History Last Taken Unknown] cholecalciferol (vitamin D3) 25 mcg (1,000 unit) capsule 25 mcg PO DAILY 05/29/22 [History Last Taken Unknown] ipratropium 0.5 mg-albuterol 3 mg (2.5 mg base)/3 mL nebulization soln 3 ml inhalation Q6H PRN shortness of breath or wheezing 05/29/22 [History Last Taken Unknown] potassium gluconate 2.5 mEq tablet 2.5 meq PO DAILY 05/29/22 [History Last Taken Unknown] tiotropium bromide 18 mcg capsule with inhalation device (Spiriva with HandiHaler) 1 cap inhalation DAILY 05/29/22 [History Last Taken Unknown] zafirlukast 20 mg tablet 20 mg PO BID 05/29/22 [History Last Taken Unknown] formoterol fumarate 20 mcg/2 mL solution for nebulization (Perforomist) 2 ml inhalation BID 10/30/22 [History Last Taken Unknown] zoledronic acid 5 mg/100 mL in mannitol 5 %-water intravenous piggybck 5 ea .Route ONCE #100 mL 10/30/22 [Rx Last Taken Unknown] amoxicillin 875 mg-potassium clavulanate 125 mg tablet 1 tab PO Q12H 01/02/23 [History Last Taken Unknown] prednisone 10 mg tablet 5 mg PO DAILY 01/02/23 [History Last Taken Unknown] prednisone 20 mg tablet 40 mg (2 x 20 mg) PO DAILY #14 tabs 04/12/23 [Rx Last Taken Unknown] Allergy/AdvReac Type Severity Reaction Status Date / Time Environmental Allergies: Allergy Intermediate Hives Verified 04/12/23 12:33 Uncoded Sulfa (Sulfonamide Allergy Mild Hives Verified 04/12/23 12:33 Antibiotics) ampicillin Allergy stomach Verified 04/12/23 12:33 issues aspirin [ASA] Allergy Hives Verified 04/12/23 12:33 cephalexin monohydrate Allergy Hives Verified 04/12/23 12:33 [From Keflex] Family History Mother Hypertension Father Rheumatoid arthritis Heart disease Surgical History History of appendectomy History of cholecystectomy Hx of hysterectomy Hx of tonsillectomy Social History household members: spouse Smoking Status: Former smoker how long ago did patient quit smoking: Quit 2009, prior 1-1.5 ppd since youth. alcohol intake: never substance use type: does not use ROS ROS ED ROS Narrative Cough. Wheezing. Shortness of breath. Review of Systems ROS Unobtainable: Denies due to encephalopathy Constitutional Constitutional ED: Reports fever(s); Denies chills Eyes Eyes: Denies blurry vision ENT ENT ED: Denies ear pain Cardiovascular Cardiovascular: Denies chest pain or palpitations Respiratory/Chest Respiratory/Chest: Reports cough and dyspnea Gastrointestinal Gastrointestinal: Denies abdominal pain Genitourinary Genitourinary ED: Denies dysuria or hematuria Musculoskeletal Musculoskeletal: Denies arthralgias or back pain Integumentary Denies abscess Neurologic Neurologic: Denies headache(s) Psychiatric Psychiatric: Denies anxiety Endocrine Endocrinology: Denies cold intolerance Hematologic/Lymphatic Hematologic/Lymphatic: Denies easy bleeding or easy bruising Allergic/Immunologic Allergic/Immunologic ED: Denies mouth swelling, tongue swelling or urticaria EXAM Physical Exam Narrative Exam Narrative: 72-year-old male vital signs are stable afebrile. H EENT exam unremarkable. Neck nontender no JVD. Lungs scattered expiratory wheezes. No rales or rhonchi. Equal symmetrical. Heart regular rhythm rate in 90s no murmur. Chestwall and ribs nontender. Abdomen soft nontender. Moving all 4 extremities. Calves are nontender without edema or cords. She is awake and alert. Answeringquestions following commands. Const Vital Signs: 04/12/23 12:31 04/12/23 13:01 04/12/23 13:19 Temperature 97.5 F L Temperature Source Temporal Pulse Rate 96 Respiratory Rate 18 Respiratory Effort Short of Breath Respiratory Depth Normal Respiratory Pattern Tachypnea Blood Pressure 188/87 H Blood Pressure Mean 120 Pulse Ox 98 98 Oxygen Delivery Method Nasal Cannula Nasal Cannula Nasal Cannula Oxygen Flow Rate (L/min) 2 2 2 04/12/23 13:28 04/12/23 15:04 Temperature Temperature Source Pulse Rate 96 Respiratory Rate 22 H Respiratory Effort Respiratory Depth Respiratory Pattern Normal Blood Pressure Blood Pressure Mean Pulse Ox 99 Oxygen Delivery Method Nasal Cannula Oxygen Flow Rate (L/min) Positive well nourished and well developed; Negative for obese, cachectic, contractures or unkempt General Appearance ED: well developed and NAD; Negative for unkempt, cachectic, contractures or pallor Nutritional Appearance: Negative for cachectic or obese HEENT Reports moist mucous membranes; Denies dry mucous membranes Negative for trauma or tenderness Mouth ED: No dry mucous membranes Mouth: No dry mucous membranes Eyes PERRL and EOMs intact bilaterally General Eye ED: Negative for pale conjunctiva or scleral icterus Neck no lymphadenopathy, supple, no meningeal signs and no JVD General: Negative for tenderness Lymph Lymphatic: Negative for other Chest Wall Chest: Negative for other Resp normal respiratory effort and No clear to auscultation bilaterally Auscultation: wheezes Cardio regular rate, regular rhythm, S1 normal heart sound, S2 normal heart sound and no murmurs Rate: Negative for bradycardia or tachycardic Rhythm: Negative for abnormal rhythm GI non-tender, non-distended and no masses Inspection: Negative for other Auscultation: normoactive bowel sounds Palpation: soft; Negative for tender, guarding or rebound tenderness present Back/Spine no CVA tenderness and normal to inspection General Back: Negative for CVA tenderness or tenderness Extremity normal to inspection General Extremety ED: Negative for edema or tenderness General Extremity: Negative for edema Neuro CN's II-XII intact bilaterally Sensorium / Orientation: alert, oriented to person, oriented to place and oriented to time; Negative for orientation impaired, confused, lethargic or stuporous Speech: speech normal Motor Exam: strength 5/5 throughout Psych mental status grossly normal Appearance: Negative for unkempt Attitude: No agitated Mood & Affect: Negative for depressed, anxious or tearful Thought Process: normal thought process Skin no wounds and skin turgor normal General Skin Exam: Negative for jaundice or pallor Lesions: no lesions Rashes: no rashes Trauma: Negative for abrasion or laceration MDM MDM MDM Narrative Medical decision making narrative: 72-year-old female COPD exacerbation rule out viral syndrome versus pneumonia versus other. Chest x-ray and labs pending. Treated with prednisone orally andaerosol treatments. Repeat exam at 3:15 PM patient doing well. Still has some scattered wheezes. She and I went over all of her test results. She has 1 more day of the antibiotic explained to her she is already been on 2 different antibiotics thereis no signs of pneumonia I do not think she needs any further antibiotics. She will be written for another weeks worth of prednisone 40 mg a day. She follows up with her road design draftsperson on Sunday the day after Ben. She is comfortable being discharged home. History & Record Review Discussion w/independent historian: Family Additional record(s) reviewed:: Prior inpatient record, Prior outpatient record,Prior ED visit and Prior labs Lab Data Attestation: I reviewed the patient's lab results. Lab results narrative: CBC shows white count 13.4 patient has recently been on prednisone. H&H of 12 and 38. Platelets 379. Electrolytes show potassium 3.4. Gap is 7. Normal BUN of 16 creatinine 0.9. Glucose 114. Chest x-ray negative. COVID, flu and RSV swabs were all negative. Labs: Laboratory Results - last 24 hr 04/12/23 13:17 WBC 13.4 H RBC 4.33 Hgb 12.3 Hct 38.4 MCV 88.7 MCH 28.4 MCHC 32.0 RDW Std Deviation 45.0 H RDW Coeff of [place] 13.8 Plt Count 379 MPV 9.1 Immature Gran % (Auto) 0.800 Neut % (Auto) 74.1 H Lymph % (Auto) 15.4 L [place] % (Auto) 7.7 Eos % (Auto) 1.8 Baso % (Auto) 0.2 Absolute Neuts (auto) 10.0 H Absolute Lymphs (auto) 2.06 Nucleated RBC % 0 Sodium 139 Potassium 3.4 L Chloride 104 Carbon Dioxide 28.0 Anion Gap 7 BUN 16 Creatinine 0.92 Estim Creat Clear Calc 40.87 Est GFR (MDRD) Af Amer 77 Est GFR (MDRD) Non-Af 64 BUN/Creatinine Ratio 17.3 Glucose 114 H Calcium 8.9 Radiography Chest X-Ray - ED: 2 View, Read by ED Physician, Read by Radiologist, Heart, Lungs, Mediastinum, Bony Structures, No Acute Disease and Chronic Changes Diagnostic Testing: Clinical Impression(s) from Imaging Studies Chest X-Ray 04/12/23 14:01 IMPRESSION: Hyperinflation. Stable examination. Electronically Signed: Joseph Curran MD at 14:34 EST , Chest x-ray, 2 views, AP and lateral, interpreted both by myself and radiologistshows chronic changes no acute process. No infiltrate. No pneumonia. No effusions. Normal cardiac silhouette. Rhythm Strip Rhythm Strip: Sinus Rhythm Rate: 83 Ectopy: None EKG Initial EKG: Attestation: I personally reviewed and interpreted this EKG as follows: Interpretation: Sinus Rhythm and No Acute Injury Pattern Comments: Normal sinus rhythm rate 83 no acute signs of KS nor ischemia nor dysrhythmia. Discharge Plan Triage Chief Complaint: Shortness of Breath ED Provider: Hayder Bob Dx/Rx/DC Orders Clinical Impression: Viral URI, Acute exacerbation of chronic obstructive pulmonary disease Instructions: ED COPD Flare Prescriptions: New prednisone 20 mg tablet 40 mg PO DAILY Qty: 14 0RF No Action formoterol fumarate [Perforomist] 20 mcg/2 mL solution for nebulization 2 ml inhalation BID zoledronic wnyb-mvibutjn-cudcb 5 mg/100 mL piggyback 5 ea .Route ONCE Qty: 100 0RF Rx Instructions: onceinfuse over 20 minutes amlodipine 5 mg tablet 5 mg PO DAILY albuterol sulfate 2.5 mg /3 mL (0.083 %) solution for nebulization 2.5 mg inhalation Q4H PRN (Reason: shortness of breath or wheezing) cholecalciferol (vitamin D3) 25 mcg (1,000 unit) capsule 25 mcg PO DAILY ipratropium-albuterol 0.5 mg-3 mg(2.5 mg base)/3 mL solution for nebulization 3 ml inhalation Q6H PRN (Reason: shortness of breath or wheezing) Hold Instructions: Order Completed potassium gluconate 2.5 mEq tablet 2.5 meq PO DAILY Spiriva with HandiHaler 18 mcg capsule, w/inhalation device 1 cap inhalation DAILY Rx Instructions: puncture 1 cap using device; one dose = 2 inhalations zafirlukast 20 mg tablet 20 mg PO BID Rx Instructions: must be taken on empty stomach, at least 1 hr before or 2 hrs after a meal/food levothyroxine 100 MCG tablet 100 mcg PO DAILY Patient Comments: thyroid omeprazole 20 MG capsule 20 mg PO DAILY Patient Comments: gerd budesonide 0.5 MG/2 ML suspension for nebulization 1 applicatio inhalation BID Patient Comments: copd albuterol sulfate [ProAir HFA] 1 PUFF inhaler 2 puff inhalation Q4H PRN PRN (Reason: Sob &/Or Wheezing) Patient Comments: copd prednisone 10 mg tablet 5 mg PO DAILY Patient Comments: PLEASE SEE ATTACHED FOR DETAILED DIRECTIONS amoxicillin-pot clavulanate 875-125 mg tablet 1 tab PO Q12H Patient Comments: TAKE 1 TABLET BY MOUTH EVERY 12 HOURS Primary Care Provider: Prosper Roman Referrals: Prosper Roman DO [Primary Care Provider] - As Needed Activity Restrictions/Additional Instructions: No signs of pneumonia. Exacerbation of your COPD. Continue prednisone for 1 week. 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 Make surethey know that you have been on antibiotics and steroids recently. They may have to extend the steroid prescription or taper the dose. Disposition Disposition: Home, Self Care What to do if you have Problems For any increased pain, shortness of breath, bleeding, nausea or vomiting, chestpain, or any unexpected problems, contact your Primary Care Provider. Call [employer] [facility] ([phone]) or report to the closest Emergency Room. Call 911 if necessary. 04/12/23 1526 <Electronically signed by Hayder Bob MD> Cosigner Signature (if applicable): CC: Dr. Prosper Roman, ~ Signed [facility] Work Phone: [phone]) 645-509012-21-2023 Telephone encounter Note* Telephone Encounter - Dee Hunter MA - 04/12/2023 11:04 AM EST Please advise if you would like anything different done for this patient [facility] [id number] Miscellaneous Notes* Telephone Encounter - Dee Hunter MA - 04/12/2023 11:04 AM EST Please advise if you would like anything different done for this patient * Telephone Encounter - Abena Villagomez RN - 04/12/2023 10:40 AM EST Patient complaining of ongoing dry cough, wheezing. See previous TE. Patient reports some improvement since starting Prednisone but still wheezing. Denies fever, chest pain, difficulty breathing. No OV available. Declines POD. Patient informed message would be sent to provider. Patient advised to call back or go to UC/ED with worsening symptoms. * Telephone Encounter - Maine Martines RN - 04/06/2023 1:42 PM EST S: Patient spoke with [facility] nurse regarding request for prednisone taper. B: Onset of symptoms/concern began today. A: Patient states she is having another COPD flare-up. Has been around sick kids who have gotten her sick again. Was treated with prednisone taper 60-40-20 on 03/23, which did help. Patient currentlyhas audible wheezing over the phone and cough [...] Dr. Roman. Spoke to Kasia, pharmacist at [facility], and gave verbal order as above. Called patient back and left message with Starr that meds were called into pharmacy. No further needs at this time. instructed to have patient call back with new or worsening symptoms. Reason for Disposition Prescription refill request for ESSENTIAL medicine (i.e., likelihood of harm to patient if not taken) and triager unable to refill per department policy Protocols used: Medication Refill and Renewal [id number] documented in this [facility]12-21-2023 Telephone encounter Note* Telephone Encounter - Abena Villagomez RN - 04/12/2023 10:40 AM EST Patient complaining of ongoing dry cough, wheezing. See previous TE. Patient reports some improvement since starting Prednisone but still wheezing. Denies fever, chest pain, difficulty breathing. No OV available. Declines POD. Patient informed message would be sent to provider. Patient advised to call back or go to UC/ED with worsening symptoms. [facility] [id number] Telephone encounter Note* Telephone Encounter - Abena Villagomez RN - 04/12/2023 10:34 AM EST Reason for Disposition Caller has already spoken with another triager or PCP (or office), and has further questions and triager able to answer questions. Protocols used: No Contact or Duplicate Contact [id number] [facility] [id number] Miscellaneous Notes* Telephone Encounter - Abena Villagomez RN - 04/12/2023 10:34 AM EST Reason for Disposition Caller has already spoken with another triager or PCP (or office), and has further questions and triager able to answer questions. Protocols used: No Contact or Duplicate Contact [id number] documented in this [facility]12-15-2023 Telephone encounter Note* Telephone Encounter - Maine Martines RN - 04/06/2023 1:42 PM EST S: Patient spoke with [facility] nurse regarding request for prednisone taper. B: Onset of symptoms/concern began today. A: Patient states she is having another COPD flare-up. Has been around sick kids who have gotten her sick again. Was treated with prednisone taper 60-40-20 on 03/23, which did help. Patient currentlyhas audible wheezing over the phone and cough [...] Dr. Roman. Spoke to Kasia pharmacist at [facility], and gave verbal order as above. Called patient back and left message with Starr that meds were called into pharmacy. No further needs at this time. instructed to have patient call back with new or worsening symptoms. Reason for Disposition Prescription refill request for ESSENTIAL medicine (i.e., likelihood of harm to patient if not taken) and triager unable to refill per department policy Protocols used: Medication Refill and Renewal [id number] [facility] [id number] Miscellaneous Notes* Telephone Encounter - Maine Martines RN - 04/06/2023 1:42 PM EST S: Patient spoke with [facility] nurse regarding request for prednisone taper. B: Onset of symptoms/concern began today. A: Patient states she is having another COPD flare-up. Has been around sick kids who have gotten her sick again. Was treated with prednisone taper 60-40-20 on 03/23, which did help. Patient currentlyhas audible wheezing over the phone and cough [...] Dr. Roman. Spoke to Kasia, pharmacist at [facility], and gave verbal order as above. Called patient back and left message with Starr that meds were called into pharmacy. No further needs at this time. instructed to have patient call back with new or worsening symptoms. Reason for Disposition Prescription refill request for ESSENTIAL medicine (i.e., likelihood of harm to patient if not taken) and triager unable to refill per department policy Protocols used: Medication Refill and Renewal [id number] documented in this [facility]12-06-2023 History of Present illness Narrative* Jazmin Moy PA-C - 03/28/2023 3:00 PM EST Images from the original note were not included. [facility] [address] [facility] [id number] Dept: [phone] Dept Loc: [phone] Visit type: Established Patient Reason for Visit: [...] She will be given a breathing treatment inthe office but encouraged to continue on the prednisone. Follow up if symptoms worsen or fail to improve, for Next scheduled follow-up. Subjective HPI this is a 72-year-old female with an underlying history of emphysema, hypertension, IBS and hypothyroidism who contacted the [facility] for next day appointment evaluation for concerns of persistent cough congestion. Patient was just seen in the office 5 days ago for the same and was concerned she hada COPD flare states her grandchildren are always [...] capsule by mouth in the morning and 1capsule before bedtime. Diclofenac Sodium (Voltaren) 1 % gel Apply 2 g topically 2 times daily. 150 g 1 doxycycline (Vibramycin) 100 MG capsule Take 1 capsule (100 mg) by mouth 2 times daily for 10 days.Take with at least 8 ounces (large glass) of water, do not lie down for 30 minutes after 20 capsule0 ferrous sulfate 325 (65 Fe) MG tablet Take 325 mg by mouth daily (with breakfast). fluconazole (Diflucan) 150 MG tablet Take 1 tablet (150 mg) by mouth daily. 7 tablet 0 Rkbojhjvtci-Ggqiutmmj-Vgrlyc (Trelegy Ellipta) 100-62.5-25 MCG/ACT aerosol powder Inhale [...] Place 1 capsule (18 mcg) into inhaler andinhale daily. 3 capsule 0 zafirlukast (Accolate) 20 MG tablet Take 20 mg by mouth in the morning and 20 mg before bedtime. No facility-administered medications prior to visit. 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 Decker, [place], [place] Nodule of upper lobe of right [...] Problem Relation Name Age of Onset Other (76196) Sister adrenal issues Rheum arthritis Father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 y.o. female. HPI ex-smoker with history of COPD on oxygen presents with a few days of cough productive of yellowphlegm. Some green rhinorrhea. Low-grade fever. No change [...] capsule by mouth in the morning and 1capsule before bedtime. formoterol (Perforomist) 20 MCG/2ML nebulizer [...] Place 1 capsule (18 mcg) into inhaler andinhale daily. 3 capsule 0 zafirlukast (Accolate) 20 [...] Problem Relation Name Age of Onset Other (18382) Sister adrenal issues Rheum arthritis Father 58 [...] masses or ascites. Patient is a pink withoutedema documented in this [facility]06-06-2023 History of Present illness Narrative* Jazmin Moy PA-C - 09/26/2022 12:40 PM EDT Images from the original note were not included. [facility] MEDICINE [address] [facility] [address] Dept: [phone] Dept Loc: [phone] Visit type: Established Patient Reason for Visit: [...] this is a 72-year-old female contacted the [facility] for immediate same-day evaluation regarding alleged fever [...] her daughter although have similar symptoms they dolive together they have not eaten the same [...] capsule by mouth in the morning and 1capsule before bedtime. formoterol (Perforomist) 20 MCG/2ML nebulizer [...] Place 1 capsule (18 mcg) into inhaler andinhale daily. 3 capsule 0 zafirlukast (Accolate) 20 MG tablet Take 20 mg by mouth in the morning and 20 mg before bedtime. No facility-administered medications prior to visit. 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 Decker, [place], [place] Renal stones Social History Tobacco Use [...] Problem Relation Name Age of Onset Other (80195) Sister adrenal issues Rheum arthritis Father 58 No Known Problems Brother No Known Problems Brother High Blood Pressure Mother alive age 90 No Known Problems Sister Heart disease Father 58 age 58 No Known Problems Brother No Known Problems Brother Objective BP (!) 168/75 (BP Location: Left arm, Patient Position: Sitting, BP Cuff Size: Large adult) Pulse86 Temp 36.7 C (98 F) (Temporal) Ht [...] prior to signing but minor errors in billiard table repairer may have occurred. documented in this [facility]06-06-2023 Telephone encounter Note* Telephone Encounter - Savana Azul RN - 09/26/2022 7:56 AM EDT S: Patient spoke with [facility] nurse regarding diarrhea and fever B: Onset [...] Patient wants to be seen Protocols used: [id number] Miscellaneous Notes* Telephone Encounter - Savana Azul RN - 09/26/2022 7:56 AM EDT S: Patient spoke with [facility] nurse regarding [...] Patient wants to be seen Protocols used: [id number] documented in this [facility]05-17-2023 History of Present illness Narrative* Aubrey Dyer MD - 09/06/2022 10:40 AM EDT Images from the original note were not included. [facility]- Pulmonary and Sleep Medicine [address] [place] [address] PH: [phone] Visit type: An Established patient 09/06/2022 CHIEF [...] screening 04/2021 COPD (chronic obstructive pulmonary disease) ([facility]) 2013 Home O2 since 2014 Ex-smoker 2008 GERD (gastroesophageal reflux disease) History of idiopathic thrombocytopenic purpura 2006 resolved History of shingles 12/2020 left CN V Hypertension 2003 Hypothyroidism IBS (irritable bowel syndrome) 2000 2008 colonoscopy per Turowski- due 2018 Immunoglobulin deficiency (HCC) 2008 monthly IVIG infusion per Dr. Decker [place], [place] Renal stones Past Surgical History Past [...] Problem Relation Name Age of Onset Other (01205) Sister adrenal issues Rheum arthritis Father 58 [...] chronic respiratory failure oxygen dependent history of smokingin the past will be at the high risk than average for perioperative pulmonary complication including Atelectasis of lung Oxygen desaturation Pneumonia Need for mechanical ventilation To optimize perioperative care would suggest Maximization of bronchodilator therapy Aggressive pulmonary toilet Incentive spirometry Close monitoring and maintaining oxygen saturation above 92 percentile 2. Chronic respiratory failure with hypoxia (CMS/HCC) ([facility]LY [facility]) Patient on 2 L nasal cannula Titrate FiO2 to keep saturation between 90 to 94% and 3. Centrilobular emphysema ([facility]LY [facility]) Severe disease Stable on current triple inhaler [...] 2 mL (20 mcg) by nebulization in themorning and 2 mL (20 mcg) in the [...] quit several years ago 6. Immunoglobulin deficiency ([facility]) Receive immunoglobulin infusion every month Aubrey Dyer MD Pulmonary, Critical Care, & Sleep Medicine Portions of the information within this encounter were entered using an electronic dictation system. Best attempts were made to edit/proofread the information prior to note completion. Despite the review of information, some errors may remain. If there are questions related to the information contained within the note please contact the documented in this [facility]05-17-2023 History of Present illness Narrative* Aubrey Dyer MD - 09/06/2022 10:40 AM EDT Images from the original note were not included. [facility]- Pulmonary and Sleep Medicine [address] [place] [address] PH: [phone] Visit type: An Established patient 09/06/2022 CHIEF [...] screening 04/2021 COPD (chronic obstructive pulmonary disease) ([facility]) 2014 Home O2 since 2015 Ex-smoker 2008 GERD (gastroesophageal reflux disease) History of idiopathic thrombocytopenic purpura 2006 resolved History of shingles 12/2020 left CN V Hypertension 2004 Hypothyroidism IBS (irritable bowel syndrome) 2000 2008 colonoscopy per Jose- due 2019 Immunoglobulin deficiency (HCC) 2008 monthly IVIG infusion per Candace Gutierrez [facility], [place] Renal stones Past Surgical History Past [...] Problem Relation Name Age of Onset Other (47405) Sister adrenal issues Rheum arthritis Father 58 [...] chronic respiratory failure oxygen dependent history of smokingin the past will be at the high [...] 2 mL (20 mcg) by nebulization in themorning and 2 mL (20 mcg) in the [...] deficiency (HCC) Receive immunoglobulin infusion every month Aubrey Dyer MD Pulmonary, Critical Care, & Sleep Medicine Portions of the information within this encounter were entered using an electronic dictation system. Best attempts were made to edit/proofread the information prior to note completion. Despite the review of information, some errors may remain. If there are questions related to the information contained within the note please contact the documented in this [facility]05-17-2023 Instructions* Patient Instructions* Jaja Bert - 09/06/2022 10:40 AM EDT YOUR APPOINTMENT TODAY WAS WITH THE [facility], COPD CLINIC, PULMONARY AND SLEEP MEDICINE OFFICE. PLEASE CALL OUR OFFICE AT [phone] for our [place] office location or [phone] for our [place] location, IF YOU HAVE NOT RECEIVED YOUR [...] to make improvements. COVID-19 VACCINATION INFORMATION: PH. [phone] [email or web address] [facility] Scheduling [phone] [facility] Sleep Scheduling [phone] documented in this [facility]05-17-2023 Instructions* Patient Instructions* Jaja Bert - 09/06/2022 10:40 AM EDT YOUR APPOINTMENT TODAY WAS WITH THE [facility], COPD CLINIC, PULMONARY AND SLEEP MEDICINE OFFICE. PLEASE CALL OUR OFFICE AT [phone] for our [place] office location or [phone] for our [place] location, IF YOU HAVE NOT RECEIVED YOUR [...] to make improvements. COVID-19 VACCINATION INFORMATION: . [phone] HEALTH.[facility]/CORONAVIRUS/VACCINE [facility] Scheduling [phone] [facility] Sleep Scheduling [phone] documented in this [facility]04-26-[address] Godfrey [facility] August 17, 2022 1:53am Note Date/Time August 16, 2022 9:5 5pm [facility] Medical Records Department [address] [place] [address] Emergency Department Summary 08/16/22 MR#: [id number] Acct: [id number] Name: DAYANA BRIGGS Rep #:[id number] : 1950 72 From: Reinaldo Godfrey MD PCP: Dr. Prosper Roman, DO Status:RE G ER Location: ED HPI HPI - GI History of Present Illness Chief Complaint: Abd Pain Informant: patient Narrative Narrative: Patient presents with about 4 hours of right lower quadrant abdominal pain. Patient states she was just on the computer. She got up and moved and got sharppain in the right lower abdomen. She states it is right where she has had a hernia for 5 or more years. The hernia is thought to be incisional. They did not want to do surgery years ago because she was 180 290 pounds. But she has gotten down to 155. Normally the hernia does not bother her. She has had appendectomy cholecystectomy and hysterectomy. She has had kidney stones but does not have any flank pain and this does not feel like a kidney stone to her. She has no urinary symptoms. Before this started she felt absolutely normal andstandard health. No fevers or chills. No change in bowel habits. She has beeneating and drinking normally. Patient states it is worse if she lays down or press on it. She is more comfortable standing on the edge of the bed. She also does not like laying flatbecause of her chronic breathing issues though. [facility] Medical History Acute and chronic respiratory failure with hypoxia Anemia Asthma Bronchitis COPD (chronic obstructive pulmonary disease) COPD (chronic obstructive pulmonary disease) COPD (chronic obstructive pulmonary disease) Former smoker Former smoker GERD (gastroesophageal reflux disease) GERD (gastroesophageal reflux disease) HTN (hypertension) Hypertension Hypertension Hypothyroid Hypothyroidism Immune deficiency disorder Immune deficiency disorder Leukocytosis Obesity (BMI 30.0-34.9) On home oxygen therapy Osteoporosis RSV infection Thrombocytosis Thrush Home Medications albuterol sulfate 90 mcg/actuation aerosol inhaler (ProAir HFA) 2 puff inhalation Q4H PRN PRN Sob &/Or Wheezing 07/22/14 [History Last Taken Unknown] budesonide 0.5 mg/2 mL suspension for nebulization 1 applicatio inhalation BID breathing 07/22/14 [History Last Taken 07/21/14] formoterol fumarate 20 mcg/2 mL solution for nebulization (Perforomist) 20 mcg inhalation BID breathing 07/22/14 [History Last Taken 07/21/14] levothyroxine 100 mcg tablet 100 mcg PO DAILY thyroid 07/22/14 [History Last Taken 07/22/14] omeprazole 20 mg capsule,delayed release 20 mg PO DAILY stomach 07/22/14 [History Last Taken 07/21/14] ipratropium bromide 0.02 % solution for inhalation 2.5 ml inhalation BID breathing 11/26/20 [History Last Taken Unknown] oxycodone-acetaminophen 5 mg-325 mg tablet 1 tab PO Q6H PRN PRN Pain 3 days #12 TABLETS 04/23/22 [Rx Last Taken Unknown] albuterol sulfate 2.5 mg/3 mL (0.083 %) solution for nebulization 2.5 mg inhalation Q4H PRN shortness of breath or wheezing 05/29/22 [History Last Taken Unknown] amlodipine 5 mg tablet 5 mg PO DAILY 05/29/22 [History Last Taken Unknown] cholecalciferol (vitamin D3) 25 mcg (1,000 unit) capsule 25 mcg PO DAILY 05/29/22 [History Last Taken Unknown] ipratropium 0.5 mg-albuterol 3 mg (2.5 mg base)/3 mL nebulization soln 3 ml inhalation Q6H PRN 05/29/22 [History Last Taken Unknown] magnesium 200 mg tablet See Rx Instructions PO DAILY 05/29/22 [History Last Taken Unknown] potassium gluconate 2.5 mEq tablet 2.5 meq PO DAILY 05/29/22 [History Last Taken Unknown] spironolactone 25 mg tablet 25 mg PO DAILY 05/29/22 [History Last Taken Unknown] tiotropium bromide 18 mcg capsule with inhalation device (Spiriva with HandiHaler) 1 cap inhalation DAILY 05/29/22 [History Last Taken Unknown] zafirlukast 20 mg tablet 20 mg PO BID 05/29/22 [History Last Taken Unknown] levofloxacin 500 mg tablet 500 mg PO DAILY #7 tabs 06/20/22 [Rx Last Taken Unknown] prednisone 10 mg tablet 10 mg PO DAILY #42 TABLETS 06/20/22 [Rx Last Taken Unknown] Allergy/AdvReac Type Severity Reaction Status Date / Time Environmental Allergies: Allergy Intermediate PT UNABLE Verified 08/16/22 21:19 Uncoded TO RESPOND-NEEDS F/U ampicillin Allergy stomach Verified 08/16/22 21:19 issues aspirin [ASA] Allergy Hives Verified 08/16/22 21:19 cephalexin monohydrate Allergy Hives Verified 08/16/22 21:19 [From Keflex] Family History Mother Hypertension Father Rheumatoid arthritis Heart disease Surgical History History of appendectomy History of cholecystectomy Hx of appendectomy Hx of cholecystectomy Hx of hysterectomy Hx of tonsillectomy Social History household members: spouse Smoking Status: Former smoker how long ago did patient quit smoking: Quit 2009, prior 1-1.5 ppd since youth. alcohol intake: never substance use type: does not use ROS ROS ED Constitutional Constitutional ED: Denies fever(s) Cardiovascular Cardiovascular: Denies chest pain or palpitations Respiratory/Chest Respiratory/Chest: Reports other Details: Patient has a chronic cough but is notdifferent or changed. ; Denies cough or dyspnea Gastrointestinal Gastrointestinal: Reports abdominal pain; Denies constipation, diarrhea, melena,nausea or vomiting Genitourinary Genitourinary ED: Denies dysuria, hematuria or urinary frequency Musculoskeletal Musculoskeletal: Denies back pain Integumentary Denies rash Neurologic Neurologic: Denies headache(s) Endocrine Endocrinology: Denies polydipsia or polyuria Hematologic/Lymphatic Hematologic/Lymphatic: Denies easy bleeding or easy bruising EXAM Physical Exam Narrative Exam Narrative: CONSTITUTIONAL: Patient is nontoxic in appearance. The patient looks mildly uncomfortable. HEENT: No notable trauma. Mucous membranes moist. EYES: No conjunctival injection. Mild proptosis. CARDIOVASCULAR: Regular rate. Regular rhythm. No notable murmur. No JVD. RESPIRATORY: No respiratory distress. Breathing is unlabored. No wheezes despiteher history of COPD. She does wear oxygen. GASTROINTESTINAL: Not distended. Bowel sounds are normal. There is tenderness that is quite focal at the right lower quadrant. But it is a little bit more toward the midline and McBurney's point. There does appear to be some fullness there. She has scarring from prior appendectomy. I cannot definitively feel herniation though. When I had the patient lay down I felt like there was some tissue but it seemed to disappear. But it did not have the normal feel of hernia reduction. Nor did it change her symptoms. I see no skin changes in thearea. There is no inguinal fullness or tenderness. GENITOURINARY: No tenderness over the bladder. No CVA tenderness on either side. MUSCULOSKELETAL: Atraumatic. No peripheral edema. No cord. No tenderness along the deep venous system. No asymmetry. NEUROLOGICAL: Patient is alert and appropriate. SKIN: No noted rashes. No diaphoresis. PSYCHIATRIC: Patient is calm. Mood is appropriate. Const Vital Signs: 08/16/22 21:17 08/17/22 00:45 Temperature 97.6 F L Temperature Source Temporal Pulse Rate 99 105 H Respiratory Rate 18 20 H Respiratory Pattern Normal Blood Pressure 188/90 H Blood Pressure Mean 122 Pulse Ox 97 Oxygen Delivery Method Room Air MDM MDM MDM Narrative Medical decision making narrative: My independent interpretation of this patient's CT does show a very large herniato the right of the rectus. This is consistent with her area of pain. Final reading is similar. Patient CBC shows a very high white count. But she has had this many times before and she is currently on about 4 5 days of prednisone. She has no fevers. Electrolytes showed no marked abnormalities. Glucose is up slightly which may also be due to the steroids. Urine shows increased white cells but she has no symptoms of infection. We have tried to reduce this. I have laid the patient back. She cannot lay back for long because of her chronic dyspnea. Her breathing is worse than but she tolerates it well and does not desaturate. I have tried to reduce this. I had a small bubbling of hernial contents. But I cannot get this to easily reduce. I was surprised because on CT it looks like there is a large defect through which the material could be reduced. I do not think this is the best candidate for surgery. I think it is best if wecould get this reduced. Because of her symptoms pain CT finding I have contacted surgery and will talk/review the case with Dr. Levine. Patient initially was okay with morphine but then she stated she had some reaction to it that she did not know what it was but did not want the medicine. We then tried fentanyl. She had no reaction. She does feel a lot better. But pressing on the area is still causing pain. It is very hard to feel the definededges of this hernia. But she still has pain tenderness and I cannot tell that this is reduced. There has not been a reduction in size of the area. We tried further reduction. I used an fire control assistant. We tried to apply pressure circumferentially around all edges. We tried to apply this pressure centered over where the defect appears to be based on CT scan findings. I tried to feel the defect manually but cannot find the definitive spot. We held pressure for awhile. We tried from different angles. We have tried pulling the edges toward the center and then applying top pressure. But I cannot get any reduction. Patient states it still feels different than normal. Normally it does not hurt. But it is still sore. She states she cannot feel if it is bigger or smaller than normal because she never can feel if its out she just knows if it hurts. It is never hurt for more than about 30 minutes or an hour in the past. Dr. Levine came into the emergency department see the patient. Using ultrasound she was able to isolate the hernia and then get the stool in the bowel portion reduced. There may be some tissue out but all the bowel appears to be in. Patient feels much better. Plan will be to get her home. She will follow-up in the office with surgery planned at a time where her breathing is atits best. She was coached extensively on reasons to return. She will also use stool softeners. She has MiraLAX at home. Lab Data Attestation: I reviewed the patient's lab results. Labs: Laboratory Results - last 24 hr 08/16/22 08/16/22 08/16/22 22:09 22:09 22:09 WBC 23.2 H RBC 4.55 Hgb 12.5 Hct 39.3 MCV 86.4 MCH 27.5 MCHC 31.8 L RDW Std Deviation 48.8 H RDW Coeff of [place]ien[place] 15.4 H Plt Count 521 H MPV 9.4 Immature Gran % (Auto) 0.900 Neut % (Auto) 95.5 H Lymph % (Auto) 1.9 L [place] % (Auto) 1.5 Eos % (Auto) 0.0 Baso % (Auto) 0.2 Absolute Neuts (auto) 22.1 H Absolute Lymphs (auto) 0.44 L Nucleated RBC % 0 Differential Comment SCANNED Sodium 137 Potassium 4.2 Chloride 105 Carbon Dioxide 26.0 Anion Gap 6 BUN 19 H Creatinine 1.02 Estim Creat Clear Calc 38.73 Est GFR (MDRD) Af Amer 69 Est GFR (MDRD) Non-Af 57 L BUN/Creatinine Ratio 18.6 Glucose 141 H Calcium 9.9 Urine Color Yellow Urine Clarity Clear Urine pH 6.0 Ur Specific Oscar 1.010 Urine Protein 15 H Urine Glucose (UA) Normal Urine Ketones Negative Urine Occult Blood 10 H Urine Nitrite Negative Urine Bilirubin Negative Urine Urobilinogen Normal Ur Leukocyte Esterase 500 H Urine RBC 0-5 SEEN Urine WBC 10-25 SEEN Ur Squamous Epith Cells 0-5 SEEN Urine Bacteria RARE Urine Mucus 0 SEEN Radiography Diagnostic Testing: Clinical Impression(s) from Imaging Studies Abdomen/Pelvis CT 08/16/22 21:49 IMPRESSION: Right lateral ventral hernia which may represent a spigelian hernia. A portion of the colon is herniated through the defect. There is no obstruction. No other acute abnormalities are identified. Electronically Signed: Gregorio Villafuerte MD at 23:09 EDT , Discharge Plan Triage Chief Complaint: Abd Pain ED Provider: Reinaldo Godfrey Dx/Rx/DC Orders Clinical Impression: Incisional hernia, Abdominal pain, History of COPD Instructions: ED Hernia (Adult) Prescriptions: No Action amlodipine 5 mg tablet 5 mg PO DAILY albuterol sulfate 2.5 mg /3 mL (0.083 %) solution for nebulization 2.5 mg inhalation Q4H PRN (Reason: shortness of breath or wheezing) cholecalciferol (vitamin D3) 25 mcg (1,000 unit) capsule 25 mcg PO DAILY ipratropium-albuterol 0.5 mg-3 mg(2.5 mg base)/3 mL solution for nebulization 3 ml inhalation Q6H PRN magnesium 200 mg tablet See Rx Instructions PO DAILY Rx Instructions: 100mg , take 1/2 tab daily potassium gluconate 2.5 mEq tablet 2.5 meq PO DAILY Spiriva with HandiHaler 18 mcg capsule, w/inhalation device 1 cap inhalation DAILY Rx Instructions: puncture 1 cap using device; one dose = 2 inhalations spironolactone 25 mg tablet 25 mg PO DAILY zafirlukast 20 mg tablet 20 mg PO BID Rx Instructions: must be taken on empty stomach, at least 1 hr before or 2 hrs after a meal/food levothyroxine 100 MCG tablet 100 mcg PO DAILY Label Comments: thyroid omeprazole 20 MG capsule 20 mg PO DAILY Label Comments: gerd budesonide 0.5 MG/2 ML suspension for nebulization 1 applicatio inhalation BID Label Comments: copd albuterol sulfate [ProAir HFA] 1 PUFF inhaler 2 puff inhalation Q4H PRN PRN (Reason: Sob &/Or Wheezing) Label Comments: copd formoterol fumarate [Perforomist] 20 MCG/2 ML solution for nebulization 20 mcg inhalation BID Label Comments: breathing ipratropium bromide 0.02 % Solution 2.5 ml INHALATION BID oxycodone-acetaminophen [oxycodone-acetaminophen] 1 TABLET tablet 1 tab PO Q6H PRN PRN (Reason: Pain) 3 Days Qty: 12 0RF levofloxacin 500 mg tablet 500 mg PO DAILY Qty: 7 0RF prednisone 10 mg tablet 10 mg PO DAILY Qty: 42 0RF Rx Instructions: 6 po qd x 2 days, 4 po qd x 3 days, 2 po qd x 3 days, 1 po qd x 3 days Primary Care Provider: Prosper Roman Referrals: Prosper Roman DO [Primary Care Provider] - Chloé Levine MD [Med Staff - Active Staff] - As soon as possible (Call tomorrow for an appointment.) Disposition Disposition: Home, Self Care What to do if you have Problems For any increased pain, shortness of breath, bleeding, nausea or vomiting, chestpain, or any unexpected problems, contact your Primary Care Provider. Call [facility] ([phone]) or report to the closest Emergency Room. Call 911 if necessary. 08/17/22 0153 <Electronically signed by Reinaldo Godfrey MD> Cosigner Signature (if applicable): CC: Dr. Prosper Roman DO ~ Signed [facility] Work Phone: [phone] 325-442904-24-2023 History of Present illness Narrative* Aubrey Dyer MD - 08/14/2022 10:00 AM EDT Images from the original note were not included. [facility]- Pulmonary and Sleep Medicine [address] [place] [address] PH: [phone] Visit type: An Established patient 08/14/2022 CHIEF [...] pulmonary disease) (HCC) 2014 Home O2 since 2015 Ex-smoker 2008 GERD (gastroesophageal reflux disease) History of idiopathic thrombocytopenic purpura 2006 resolved History of shingles 12/2020 left CN V Hypertension 2003 Hypothyroidism IBS (irritable bowel syndrome) 2000 2008 colonoscopy per Turowski- due 2018 Immunoglobulin deficiency (HCC) 2007 monthly IVIG infusion per Dr. Decker, [place], [place] Renal stones Past Surgical History Past Surgical History: Procedure Laterality Date APPENDECTOMY ATRIAL ABLATION SURGERY 2013 CATARACT EXTRACTION W/ INTRAOCULAR LENS IMPLANT Bilateral [...] VIAL VIA NEBULIZER TWICE A DAY, Disp: ,Rfl: cholecalciferol (Vitamin D-3) 25 MCG (1000 UT) [...] Problem Relation Name Age of Onset Other (29273) Sister adrenal issues Rheum arthritis Father 58 [...] (HCC) Received immunoglobulin infusion 6. COPD exacerbation ([facility]) Patient with bronchospasm and exacerbation of COPD We will treat with short course of a steroid and doxycycline Patient aware of potential side effects of steroid and agreed to take it - doxycycline (Vibra-Tabs) 100 MG tablet; Take 1 tablet (100 mg) by mouth 2 times daily for 7 days.Take with a full glass of water and [...] 3 days. Dispense: 30 tablet; Refill: 0 Aubrey Dyer MD Pulmonary, Critical Care, & Sleep Medicine Portions of the information within this encounter were entered using an electronic dictation system. Best attempts were made to edit/proofread the information prior to note completion. Despite the review of information, some errors may remain. If there are questions related to the information contained within the note please contact documented in this [facility]04-24-2023 Instructions* Patient Instructions* Jaja Noel - 08/14/2022 10:00 AM EDT YOUR APPOINTMENT TODAY WAS WITH THE [facility], COPD CLINIC, PULMONARY AND SLEEP MEDICINE OFFICE. PLEASE CALL OUR OFFICE AT [phone] for our [facility] location or [phone] for our [place] location, IF YOU HAVE NOT RECEIVED YOUR [...] to make improvements. COVID-19 VACCINATION INFORMATION: PH. [phone] HEALTH.[email or web address] [facility] Central Scheduling [phone] [facility] Sleep Scheduling [phone] documented in this encounterSEast [facility] City HospitalDybxwq79-01-2293 Telephone encounter Note* Telephone Encounter - Maine Garcia - 07/24/2022 2:22 PM EDT Medication name: tiotropium (Spiriva HandiHaler) 18 MCG [...] prior to picking up the medication: Yes [id number] Miscellaneous Notes* Telephone Encounter - Maine Garcia - 07/24/2022 2:22 PM EDT Medication name: tiotropium (Spiriva HandiHaler) 18 MCG [...] up the medication: Yes documented in this [facility]03-22-2023 History of Present illness Narrative* Joyce Brown, ROSALIND - 07/12/2022 2:10 PM EDT Images from the original note were not included. [facility] Pulmonary Medicine [address] [place] [address] Date of Service: 07/12/2022 Visit type: An [...] recent treatment with antibiotics and steroiud. PCP treatedher for pneumonia with levaquin and prednisone taper. Cough and congestion has improved, but still having some SOB and cough. Sometimes having difficulty getting sputum out. Takes mucinex 1-3 timesa day which does help somewhat. 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 Decker, [place], [place] Renal stones SURGICAL HISTORY: Past Surgical [...] VIAL VIA NEBULIZER TWICE A DAY, Disp: ,Rfl: cholecalciferol (Vitamin D-3) 25 MCG (1000 UT) [...] Problem Relation Name Age of Onset Other (28334) Sister adrenal issues Rheum arthritis Father 58 [...] % 76. 35. 46. 28. 37. -19. WPI85-67% L/s 1.83 0.17 9. 0.17 9. 0. [...] /MIP cmH2O -68.81 PEmax /MEP cmH2O 90.11 BRANCH SERVICE ASSOCIATE NOTES Many attempts. No consistent results. Best [...] a spacer that was instructed and dispensed. 53225- PRE/[place] [address]- DLCO 00152- FRC GAS Tests to perform: [id number] - FULL PFT STUDY WITH BRONCHODILATOR PHYSICIAN [...] is unremarkable. No supraclavicular lymphadenopathy. MEDIASTINUM AND PATY: No mediastinal lymphadenopathy. No hilar lymphadenopathy, within [...] This nodule demonstrates mild FDG uptake (maximal SUV1.7), less than typically expected for malignancy. No additional FDG avid pulmonary nodules are identified. There are moderate emphysematous changes. No FDG avid lymphadenopathy is seen within the neck or chest. ABDOMEN AND PELVIS: No abnormal FDG accumulation is seen within the abdomen or pelvis. On the low- dose CT images, a right-sided spigelian type hernia [...] rate of 2L and benefiting from usage. Patientshould continue using their oxygen to prevent progression of comorbid conditions. -new order placed. Will request visit note be faxed to DME supplier ([employer]) along with new O2 order. 3. Lung [...] improve, for Next scheduled follow-up with Dr. Dyer. Joyce Brown APRN Pulmonary & Sleep Medicine documented in this [facility]03-22-2023 History of Present illness Narrative* Joyce Brown APRN - 07/12/2022 2:10 PM EDT Images from the original note were not included. [facility] Pulmonary Medicine [address] [place] [address] Date of Service: 07/12/2022 Visit type: An [...] recent treatment with antibiotics and steroiud. PCP treatedher for pneumonia with levaquin and prednisone taper. Cough and congestion has improved, but still having some SOB and cough. Sometimes having difficulty getting sputum out. Takes mucinex 1-3 timesa day which does help somewhat. She used [...] screening 04/2021 COPD (chronic obstructive pulmonary disease) ([facility]) 2014 Home O2 since 2014 Ex-smoker 2008 GERD (gastroesophageal reflux disease) History of idiopathic thrombocytopenic purpura 2005 resolved History of shingles 12/2020 left CN V Hypertension 2003 Hypothyroidism IBS (irritable bowel syndrome) 2000 2008 colonoscopy per Turowski- due 2019 Immunoglobulin deficiency (CMS/HCC) (HCC) 2008 monthly IVIG infusion per Dr. Decker [facility], [place] Renal stones SURGICAL HISTORY: Past Surgical History: Procedure Laterality Date APPENDECTOMY ATRIAL ABLATION SURGERY 2013 CATARACT EXTRACTION W/ INTRAOCULAR LENS IMPLANT Bilateral [...] VIAL VIA NEBULIZER TWICE A DAY, Disp: ,Rfl: cholecalciferol (Vitamin D-3) 25 MCG (1000 UT) [...] Problem Relation Name Age of Onset Other (23490) Sister adrenal issues Rheum arthritis Father 58 [...] % 76. 35. 46. 28. 37. -19. BNQ42-66% L/s 1.83 0.17 9. 0.17 9. 0. [...] /MIP cmH2O -68.81 PEmax /MEP cmH2O 90.11 BRANCH SERVICE ASSOCIATE NOTES Many attempts. No consistent results. Best [...] a spacer that was instructed and dispensed. 12740- PRE/[place] [address]- DLCO 28832- FRC GAS Tests to perform: [id number] - FULL PFT STUDY WITH BRONCHODILATOR PHYSICIAN [...] is unremarkable. No supraclavicular lymphadenopathy. MEDIASTINUM AND PATY: No mediastinal lymphadenopathy. No hilar lymphadenopathy, within [...] This nodule demonstrates mild FDG uptake (maximal SUV1.7), less than typically expected for malignancy. No additional FDG avid pulmonary nodules are identified. There are moderate emphysematous changes. No FDG avid lymphadenopathy is seen within the neck or chest. ABDOMEN AND PELVIS: No abnormal FDG accumulation is seen within the abdomen or pelvis. On the low- dose CT images, a right-sided spigelian type hernia [...] rate of 2L and benefiting from usage. Patientshould continue using their oxygen to prevent progression of comorbid conditions. -new order placed. Will request visit note be faxed to DME supplier ([employer]) along with new O2 order. 3. Lung [...] improve, for Next scheduled follow-up with Dr. Dyer. Joyce Brown APRN Pulmonary & Sleep Medicine * Susan Young MA - 07/12/2022 2:10 PM EDT Patient was at 84% at room air, at rest, placed patient on 2lpm O2 and she recovered to 94%. documented in this [facility]03-22-2023 Instructions* Patient Instructions* Jaja Noel - 07/12/2022 2:10 PM EDT YOUR APPOINTMENT TODAY WAS WITH THE [facility], COPD CLINIC, PULMONARY AND SLEEP MEDICINE OFFICE. PLEASE CALL OUR OFFICE AT [phone] for our [place] office location or [phone] for our [place] location, IF YOU HAVE NOT RECEIVED YOUR [...] to make improvements. COVID-19 VACCINATION INFORMATION: PH. [phone] HEALTH.ORG/CORONAVIRUS/VACCINE [facility] Central Scheduling [phone] [facility] Sleep Scheduling [phone] documented in this encounterSumma [id number] Instructions* Patient Instructions* Jaja Noel - 07/12/2022 2:10 PM EDT YOUR APPOINTMENT TODAY WAS WITH THE [facility], COPD CLINIC, PULMONARY AND SLEEP MEDICINE OFFICE. PLEASE CALL OUR OFFICE AT [phone] for our [place] office location or [phone] for our [place] location, IF YOU HAVE NOT RECEIVED YOUR [...] to make improvements. COVID-19 VACCINATION INFORMATION: PH. [phone] HEALTH.ORG/CORONAVIRUS/VACCINE [facility] Central Scheduling [phone] [facility] Sleep Scheduling [phone] documented in this [facility]03-21-2023 History of Present illness Narrative* Jazmin Moy PA-C - 07/11/2022 8:00 AM EDT Images from the original note were not included. [facility] [address] [facility] [address] Dept: [phone] Dept Loc: [phone] Visit type: Established Patient Reason for Visit: Shortness of Breath Assessment and Plan 1. COPD with acute exacerbation (CMS/HCC) ([facility]) Comments: Acute reoccurrence of COPD with exacerbation. Requesting refills of Levaquin and prednisone which seems to get her through exacerbations. Orders: - albuterol 108 (90 Base) MCG/ACT inhaler; Inhale 2 puffs every 4 hours as needed for shortness of breath., Starting Sun07/11/2022, Normal - predniSONE (Deltasone) 10 MG tablet; Multiple Dosages:Starting Sun07/11/2022, Until Sun07/12/2022t 2359, THEN Starting Sun07/13/2022, Until Sun07/14/2022 at 2359, THEN Starting 07/15/2022, Until 07/16/2022 at 2359, THEN Starting 07/17/2022, Until Sun07/18/2022 at 2359, THEN Starting 07/19/2022, Until Lana 07/20/2022 at 2359Take 5 tablets (50 mg) by mouth daily for 2 days, THEN 4 tablets (40 mg) daily for 2 days, THEN 3 tablets (30 mg) daily for 2 days, THEN 2 tablets (20 mg) dailyfor 2 days, THEN 1 tablet (10 mg) daily for 2 days., Normal - levoFLOXacin (Levaquin) 750 MG tablet; Take 1 tablet (750 mg) by mouth daily for 7 days., Starting Sun07/11/2022, Until Sun07/18/2022, Normal 2. Essential hypertension Comments: Has not taken morning medication usually well controlled no change in dosing or regimen. Orders: - amLODIPine (Norvasc) 5 MG tablet; Take 1 tablet (5 mg) by mouth daily., Starting Sun07/11/2022, Normal - spironolactone (Aldactone) 25 MG tablet; Take 1 tablet (25 mg) by mouth daily., Starting Sun07/11/2022, Normal 3. Hypothyroidism, unspecified type Comments: Levels of been stable refill authorization. Orders: - levothyroxine (Synthroid, Levoxyl) 100 MCG tablet; Take 1 tablet (100 mcg) by mouth daily for 180doses., Starting Sun07/11/2022, Until Sun01/07/2023, Normal 4. Gastroesophageal reflux disease without esophagitis Comments: Stable on current medication requesting refills. Orders: - omeprazole (PriLOSEC) [address] capsule; Take 1 capsule (20 mg) by mouth daily., Starting Sun07/11/2022, Normal Follow up in about 3 months (around 10/11/2022). This is a 72-year-old female who is ongoing and periodic exacerbations of her COPD. She lives with multiple family members and small children have all been sick recently. She states she has been using her oxygen she has 50 feet of tubing but help to get around the house she uses the oxygen primarily when she is up walking or exerting herself. As long she is sitting resting her oxygen levels seem to be stable. She states she knows the difference between when she is sick and not sick she statesthis is just more of an exacerbation of her COPD it got so bad at the end of May that she wentto the [facility] was seen and evaluated there but she was not admitted. She was placed on Lev aquin at that point time she has since finished it up but because her symptoms started coming back about 4 to 5 days ago she started retaking what was left over of Levaquin. She only had 2 doses so she is requesting more. She denies any current fever chills rigors no signs acute septicemia or toxicity we did discuss use of her inhalers and she is requesting refill of her inhalers. She has a scheduled follow-up with pulmonology tomorrow encouraged to discuss any further changes with them. Most recent ER evaluation and labs will be requested from [facility] so they can be scanned into thechart. (Jun 20) Subjective HPI this is a pleasant 72-year-old female with an underlying history of COPD with monthly exacerbations on continuous oxygen comes in for exacerbation and worsening of her wheezing. Seen just over a month ago for the same, placed on antibiotics and prednisone, maybe improved a little but symptoms are all back. States if takes off her oxygen her pulse ox levels drop to 80s. She was called and instructed to go to the ER if she was short of breath and pulse ox was this low, however she has declined and refused to be seen in the ER and stated it was only when she was not wearing her oxygen. She stated she went to the [facility], on jun 20 and was placed on levaquin 750mg but only took for 5 days, and got a little better however she's sick again with wheezing and coughing. Kept several pillsand started back on levaquin for 2 days. Took 40mg prednisone for last three days. She states that the sputum that she was coughing that is yellowish in nature is now starting to clear up a little bit turning more whitish. She denies any associate hemoptysis hematemesis. She denies any associate chest pain or palpitations. Denies any associated nausea vomiting diarrhea. States this is similar to her periodic infrequent exacerbations. Review of Systems Constitutional: Negative for chills and fever. HENT: Positive for congestion. Negative for postnasal drip, sinus pressure, sinus pain and sore throat. Respiratory: Positive for cough, shortness of breath and wheezing. Negative for apnea and chest tightness. Cardiovascular: Negative for chest pain. Gastrointestinal: Negative [...] or shortness of breath. 75 mL 2 budesonide (Pulmicort) 0.5 MG/2ML nebulizer solution USE 1 VIAL VIA NEBULIZER TWICE A DAY cholecalciferol (Vitamin D-3) 25 MCG (1000 UT) capsule Take 1 capsule by mouth in the morning and 1capsule before bedtime. formoterol (Perforomist) 20 MCG/2ML nebulizer solution 20 mcg. ipratropium (Atrovent) 0.02 % nebulizer solution INHALE THE CONTENTS OF 1 VIAL VIA NEBULIZER 2 TIMES DAILY ipratropium-albuterol (Duo-Neb) 0.5-2.5 mg/3 mL nebulizer solution Inhale 1 vial. Magnesium 100 MG capsule Take by mouth. Potassium Gluconate 2.5 MEQ tablet Take by mouth. tiotropium (Spiriva HandiHaler) [address] 1 capsule into inhaler and inhale daily. zafirlukast (Accolate) 20 MG tablet Take 20 mg by mouth in the morning and 20 mg before bedtime. albuterol 108 (90 Base) MCG/ACT inhaler Inhale 2 puffs every 4 hours as needed for shortness of breath. 3 each 0 amLODIPine (Norvasc) 5 MG tablet Take 1 tablet (5 mg) by mouth daily. 90 tablet 0 levoFLOXacin (Levaquin) 750 MG tablet Take 1 tablet by mouth daily. levothyroxine (Synthroid, Levoxyl) 100 MCG tablet Take 1 tablet (100 mcg) by mouth daily for 5000 doses. 90 tablet 0 omeprazole (PriLOSEC) [address] capsule Take 1 capsule (20 mg) by mouth daily. 90 capsule 0 predniSONE (Deltasone) 10 MG tablet One qid for 2 days One tid for 2 days One bid for 2 days One daily for 2 days 20 tablet 0 spironolactone (Aldactone) 25 MG tablet Take 1 tablet (25 mg) by mouth daily. 90 tablet 0 No facility-administered medications prior to visit. Past Medical History: Diagnosis Date Asthma 2006 Breast cancer screening 04/2021 COPD (chronic obstructive pulmonary disease) ([facility]) 2014 Home O2 since 2014 Ex-smoker 2008 GERD (gastroesophageal reflux disease) History of idiopathic thrombocytopenic purpura 2006 resolved History of shingles 12/2020 left CN V Hypertension 2004 Hypothyroidism IBS (irritable bowel syndrome) 2000 2008 colonoscopy per owski- due 2018 Immunoglobulin deficiency (CMS/HCC) ([facility]) 2007 monthly IVIG infusion per Dr. Decker [place], [place] Renal stones Social History Tobacco Use Smoking status: Former Packs/day: 2.00 Types: Cigarettes Start date: 09/14/1953 Quit date: 12/01/2008 Years since quittin.6 Smokeless tobacco: Never Substance Use Topics Alcohol use: No Alcohol/week: 0.0 standard drinks Past Surgical History: Procedure Laterality Date APPENDECTOMY [...] Problem Relation Name Age of Onset Other (29685) Sister adrenal issues Rheum arthritis Father 58 No Known Problems Brother No Known Problems Brother High Blood Pressure Mother alive age 90 No Known Problems Sister Heart disease Father 58 age 58 No Known Problems Brother No Known Problems Brother Objective BP (!) 142/86 (BP Location: Left arm, Patient Position: Sitting, BP Cuff Size: Large adult) Ildiy327 Temp 36.6 C (97.8 F) (Temporal) Ht 5' 1 (1.549 m) Wt 158 lb (71.7 kg) SpO2 98% BMI 29.85 kg/m Physical Exam Constitutional: Appearance: Normal appearance. HENT: Right Ear: Tympanic membrane and ear canal normal. Left Ear: Tympanic membrane and ear canal normal. Mouth/Throat: Mouth: Mucous membranes are moist. Pharynx: Oropharynx is clear. Eyes: Extraocular Movements: Extraocular movements intact. Pupils: Pupils are equal, round, and reactive to light. Cardiovascular: Rate and Rhythm: Normal rate and regular rhythm. Heart sounds: Normal heart sounds. Pulmonary: Effort: Pulmonary effort is normal. No respiratory distress. Breath sounds: No stridor. Wheezing present. No rhonchi. Comments: Very mild audible wheezing, but no signs of acute respiratory distress no retractions tripoding or grunting. No signs of conversational dyspnea Musculoskeletal: Cervical back: Normal range of motion and neck supple. Skin: General: Skin is warm and dry. Neurological: Mental Status: She is alert. Psychiatric: Mood and Affect: Mood normal. Data Reviewed and Summarized Labs: Imaging/Testing: Jazmin Moy PA-C 07/11/2022 Please note that portions of this note may have been completed with voice recognition software. Documentation reviewed prior to signing but minor errors in billiard table repairer may have occurred. documented in this [facility]03-20-2023 Telephone encounter Note* Telephone Encounter - Haven Llanos RN - 07/10/2022 2:07 PM EDT Triage message reviewed with clinical staff. Patient appointment confirmed. Jazmin will assess at appointment visit. [facility] [id number] Miscellaneous Notes* Telephone Encounter - Haven Llanos RN - 07/10/2022 2:07 PM EDT Triage message reviewed with clinical staff. Patient appointment confirmed. Jazmin will assess at appointment visit. * Telephone Encounter - Brandi Nichols RN - 07/10/2022 1:49 PM EDT S: Patient spoke with [facility] nurse regarding shortness of breath B: Onset [...] and worse than normal Protocols used: Breathing Jokryszbev-ADDLT-KP documented in this encounterSEast [facility] [id number] Telephone encounter Note* Telephone Encounter - Brandi Nichols RN - 07/10/2022 1:49 PM EDT S: Patient spoke with [facility] nurse regarding shortness of breath B: Onset [...] and worse than normal Protocols used: Breathing Wmqaqrsdyf-UMOPT-MM [facility] [id number] [facility] June 20, 2022 9:40am Note Date/Time June 20, 2022 8:00am [facility] Medical Records Department [address] [place] [address] Emergency Department Summary 06/20/22 MR#: [id number] Acct: [id number] Name: DAYANA BRIGGS Rep #:[id number] : 1950 72 From: [place] MD PCP: Dr. Prosper Roman, Status:RE G ER Location: ED HPI History of Present Illness Chief Complaint: Shortness of Breath Informant: patient Onset/Context/Timing Onset: Days (4) Context: gradual and onset Timing: Continuous Quality: Positive for Dyspnea on exertion and Wheezing Current Severity: Severe Maximum Severity: Severe Worsened by: Exertion and Coughing Relieved by: Rest and Albuterol Associated Symptoms cough Chest Pain: Positive for Tightness Narrative Narrative: 72-year-old female with a history of fairly significant COPD, she is on 4+ liters at home of oxygen, has been feeling a gradual onset of a flareup for the past 4 days or so. She woke up severely short of breath this morning discovering that her oxygen was not working correctly for some duration overnight, she remembers it working okay when she went to bed last night. She states her sister helped her get the oxygen in order and switch the tubing out and it was working okay but she was still really short of breath even despite analbuterol treatment so she came here. She states that she has some leftover prednisone, so she has had 2 days worth of prednisone 60 mg daily, with the latter have been yesterday, she took 40 mg in the morning and 20 mg each night. She is not coughing anymore than usual. She does have some nasal congestion andblowing out some green mucus occasionally, she denies any chills but is having some subjective low-grade fevers. No known sick contacts. No leg edema. No history of heart problems, she denies any symptoms of angina but states she is feeling tight when she is really wheezy like right now. [facility] Medical History Acute and chronic respiratory failure with hypoxia Anemia Asthma Bronchitis COPD (chronic obstructive pulmonary disease) COPD (chronic obstructive pulmonary disease) COPD (chronic obstructive pulmonary disease) Former smoker Former smoker GERD (gastroesophageal reflux disease) GERD (gastroesophageal reflux disease) HTN (hypertension) Hypertension Hypertension Hypothyroid Hypothyroidism Immune deficiency disorder Immune deficiency disorder Leukocytosis Obesity (BMI 30.0-34.9) On home oxygen therapy Osteoporosis RSV infection Thrombocytosis Thrush Home Medications albuterol sulfate 90 mcg/actuation aerosol inhaler (ProAir HFA) 2 puff inhalation Q4H PRN PRN Sob &/Or Wheezing 07/22/14 [History Last Taken Unknown] budesonide 0.5 mg/2 mL suspension for nebulization 1 applicatio inhalation BID breathing 07/22/14 [History Last Taken 07/21/14] formoterol fumarate 20 mcg/2 mL solution for nebulization (Perforomist) 20 mcg inhalation BID breathing 07/22/14 [History Last Taken 07/21/14] levothyroxine 100 mcg tablet 100 mcg PO DAILY thyroid 07/22/14 [History Last Taken 07/22/14] omeprazole 20 mg capsule,delayed release 20 mg PO DAILY stomach 07/22/14 [History Last Taken 07/21/14] ipratropium bromide 0.02 % solution for inhalation 2.5 ml inhalation BID breathing 11/26/20 [History Last Taken Unknown] oxycodone-acetaminophen 5 mg-325 mg tablet 1 tab PO Q6H PRN PRN Pain 3 days #12 TABLETS 04/23/22 [Rx Last Taken Unknown] albuterol sulfate 2.5 mg/3 mL (0.083 %) solution for nebulization 2.5 mg inhalation Q4H PRN shortness of breath or wheezing 05/29/22 [History Last Taken Unknown] amlodipine 5 mg tablet 5 mg PO DAILY 05/29/22 [History Last Taken Unknown] cholecalciferol (vitamin D3) 25 mcg (1,000 unit) capsule 25 mcg PO DAILY 05/29/22 [History Last Taken Unknown] ipratropium 0.5 mg-albuterol 3 mg (2.5 mg base)/3 mL nebulization soln 3 ml inhalation Q6H PRN 05/29/22 [History Last Taken Unknown] magnesium 200 mg tablet See Rx Instructions PO DAILY 05/29/22 [History Last Taken Unknown] potassium gluconate 2.5 mEq tablet 2.5 meq PO DAILY 05/29/22 [History Last Taken Unknown] spironolactone 25 mg tablet 25 mg PO DAILY 05/29/22 [History Last Taken Unknown] tiotropium bromide 18 mcg capsule with inhalation device (Spiriva with HandiHaler) 1 cap inhalation DAILY 05/29/22 [History Last Taken Unknown] zafirlukast 20 mg tablet 20 mg PO BID 05/29/22 [History Last Taken Unknown] levofloxacin 500 mg tablet 500 mg PO DAILY #7 tabs 06/20/22 [Rx Last Taken Unknown] prednisone 10 mg tablet 10 mg PO DAILY #42 TABLETS 06/20/22 [Rx Last Taken Unknown] Allergy/AdvReac Type Severity Reaction Status Date / Time ampicillin Allergy stomach Verified 06/20/22 08:48 issues aspirin [ASA] Allergy Hives Verified 06/20/22 08:48 cephalexin monohydrate Allergy Hives Verified 06/20/22 08:48 [From Keflex] sulfer Allergy Intermediate Other Uncoded 05/29/22 08:22 Family History Mother Hypertension Father Rheumatoid arthritis Heart disease Surgical History History of appendectomy History of cholecystectomy Hx of appendectomy Hx of cholecystectomy Hx of hysterectomy Hx of tonsillectomy Social History household members: spouse Smoking Status: Former smoker how long ago did patient quit smoking: Quit 2009, prior 1-1.5 ppd since youth. alcohol intake: never substance use type: does not use ROS ROS ED Constitutional Constitutional ED: Reports fever(s) and subjective; Denies chills Eyes Eyes: Denies change in vision or diplopia ENT ENT ED: Reports nasal congestion and rhinorrhea; Denies sore throat Cardiovascular Cardiovascular: Denies leg edema, palpitations or racing heartbeat Respiratory/Chest Respiratory/Chest: Reports chest tightness, cough, dyspnea and dyspnea on exertion Gastrointestinal Gastrointestinal: Denies abdominal pain, diarrhea, nausea or vomiting Genitourinary Genitourinary ED: Denies dysuria or hematuria Musculoskeletal Musculoskeletal: Denies back pain or neck pain Integumentary Denies abscess or rash Neurologic Neurologic: Denies headache(s), paresthesias or weakness Psychiatric Psychiatric: Denies anxiety or suicidal thoughts EXAM Physical Exam Const Vital Signs: 06/20/22 07:40 06/20/22 08:05 06/20/22 08:05 Temperature 96.2 F L Temperature Source Temporal Pulse Rate 133 H 122 H Respiratory Rate 26 H 18 Respiratory Effort Respiratory Depth Respiratory Pattern Blood Pressure 154/112 H Blood Pressure Mean 126 Pulse Ox 92 96 Oxygen Delivery Method Nasal Cannula Nasal Cannula Oxygen Flow Rate (L/min) 2 2 06/20/22 08:31 Temperature Temperature Source Pulse Rate Respiratory Rate Respiratory Effort Short of Breath Labored Accessory Muscle Use Respiratory Depth Normal Respiratory Pattern Tachypnea Blood Pressure Blood Pressure Mean Pulse Ox Oxygen Delivery Method Nasal Cannula Oxygen Flow Rate (L/min) 2 Positive well nourished and well developed General Appearance ED: well developed HEENT Reports moist mucous membranes normocephalic and atraumatic Eyes PERRL and EOMs intact bilaterally Neck full ROM, supple and no JVD Resp Resp Narrative: Mild respiratory distress, speaking in 5-7 word sentences. Keenly alert, able to stand and walk, oriented x3. Diffuse expiratory wheezes, no rales or rhonchiheard. Trachea midline. Equal breath sounds bilaterally. Obvious audible wheezing externally without stethoscope. Prolonged expiratory phase. Cardio regular rate, regular rhythm and no murmurs Rate: tachycardic GI non-tender and non-distended Auscultation: normoactive bowel sounds Palpation: soft Back/Spine no CVA tenderness General Back: other FROM Extremity normal to inspection General Extremety ED: Negative for edema, pulses abnormal or tenderness General Extremity: Negative for edema or pulses abnormal Neuro oriented x3, CN's II-XII intact bilaterally and no sensory deficits noted Sensorium / Orientation: awake and alert Motor Exam: strength 5/5 throughout Psych mental status grossly normal Skin no rashes or lesions noted and no wounds MDM MDM MDM Narrative Medical decision making narrative: 2 view chest x-ray my interpretation shows chronic COPD changes, no definite acute consolidations or infiltrates. I reviewed the radiologist interpretation. Patient was given a round of nebulizer treatments while we worked her up, she is definitely feeling better and conversing better. She is tachycardic, but shedoes not feel it. Respiratory rate down to 18/min. Not hypoxic on her home oxygen even less, at 2 L. Offered admission, she declines and wants to go home,she initially said she wanted another breathing treatment but states that she can do those at home and would prefer to be there, and breathing relatively wellright now although still wheezing. She was given a dose of Solu-Medrol which istoday's dose of steroids. She states she has done well with Levaquin in the past. I discussed with her the risk of mixing that with steroids, that there leonora black box warning concerning tendon rupture. She understands that risk and wants it anyway because it has helped her in the past when she has been like this. Advised to follow-up with her road design draftsperson who is out of this local area, and will prescribe her a prednisone taper she is comfortable with that plan. Lab Data Attestation: I reviewed the patient's lab results. Labs: Laboratory Results - last 24 hr 06/20/22 06/20/22 06/20/22 08:07 08:07 08:07 WBC 16.3 H RBC 4.21 Hgb 11.8 L Hct 35.9 L MCV 85.3 MCH 28.0 MCHC 32.9 RDW Std Deviation 44.5 H RDW Coeff of [place] 14.5 Plt Count 403 MPV 9.4 Immature Gran % (Auto) 0.300 Neut % (Auto) 91.0 H Lymph % (Auto) 1.9 L [place] % (Auto) 6.7 Eos % (Auto) 0.0 Baso % (Auto) 0.1 Absolute Neuts (auto) 14.8 H Absolute Lymphs (auto) 0.31 L Nucleated RBC % 0 Differential Comment SCANNED Sodium 139 Potassium 3.8 Chloride 105 Carbon Dioxide 25.0 Anion Gap 9 BUN 17 Creatinine 1.10 H Estim Creat Clear Calc 35.91 Est GFR (MDRD) Af Amer 63 Est GFR (MDRD) Non-Af 52 L BUN/Creatinine Ratio 15.5 Glucose 152 H Calcium 9.7 Troponin I High Sens 16 B-Natriuretic Peptide 42.6 Radiography Diagnostic Testing: Clinical Impression(s) from Imaging Studies Chest X-Ray 06/20/22 07:52 IMPRESSION: Hyperinflation. Stable increased markings at the lung bases suggestive of scarring. Increased markings in the right upper lobe as compared to prior study. Early infiltrate should be Electronically Signed: Joseph Curran MD at 9:04 EST , Rhythm Strip Rhythm Strip: Sinus Tach Rate: 115 Ectopy: None EKG Initial EKG: Attestation: I personally reviewed and interpreted this EKG as follows: Interpretation: No Acute Injury Pattern and Sinus Tachycardia Prior EKG tracings: available for review Prior: Unchanged Discharge Plan Triage Chief Complaint: Shortness of Breath ED Provider: Santo Merida Dx/Rx/DC Orders Clinical Impression: Acute exacerbation of chronic obstructive pulmonary disease (COPD) Instructions: ED COPD Flare Prescriptions: New levofloxacin 500 mg tablet 500 mg PO DAILY Qty: 7 0RF prednisone 10 mg tablet 10 mg PO DAILY Qty: 42 0RF Rx Instructions: 6 po qd x 2 days, 4 po qd x 3 days, 2 po qd x 3 days, 1 po qd x 3 days No Action amlodipine 5 mg tablet 5 mg PO DAILY albuterol sulfate 2.5 mg /3 mL (0.083 %) solution for nebulization 2.5 mg inhalation Q4H PRN (Reason: shortness of breath or wheezing) cholecalciferol (vitamin D3) 25 mcg (1,000 unit) capsule 25 mcg PO DAILY ipratropium-albuterol 0.5 mg-3 mg(2.5 mg base)/3 mL solution for nebulization 3 ml inhalation Q6H PRN magnesium 200 mg tablet See Rx Instructions PO DAILY Rx Instructions: 100mg , take 1/2 tab daily potassium gluconate 2.5 mEq tablet 2.5 meq PO DAILY Spiriva with HandiHaler 18 mcg capsule, w/inhalation device 1 cap inhalation DAILY Rx Instructions: puncture 1 cap using device; one dose = 2 inhalations spironolactone 25 mg tablet 25 mg PO DAILY zafirlukast 20 mg tablet 20 mg PO BID Rx Instructions: must be taken on empty stomach, at least 1 hr before or 2 hrs after a meal/food levothyroxine 100 MCG tablet 100 mcg PO DAILY Label Comments: thyroid omeprazole 20 MG capsule 20 mg PO DAILY Label Comments: gerd budesonide 0.5 MG/2 ML suspension for nebulization 1 applicatio inhalation BID Label Comments: copd albuterol sulfate [ProAir HFA] 1 PUFF inhaler 2 puff inhalation Q4H PRN PRN (Reason: Sob &/Or Wheezing) Label Comments: copd formoterol fumarate [Perforomist] 20 MCG/2 ML solution for nebulization 20 mcg inhalation BID Label Comments: breathing ipratropium bromide 0.02 % Solution 2.5 ml INHALATION BID oxycodone-acetaminophen [oxycodone-acetaminophen] 1 TABLET tablet 1 tab PO Q6H PRN PRN (Reason: Pain) 3 Days Qty: 12 0RF Primary Care Provider: Prosper Roman Referrals: Марина Zepeda DO [Non-Staff] - 3-5 Days if not improving Disposition Disposition: Home, Self Care What to do if you have Problems For any increased pain, shortness of breath, bleeding, nausea or vomiting, chestpain, or any unexpected problems, contact your Primary Care Provider. Call [facility] ([phone]) or report to the closest Emergency Room. Call 911 if necessary. 06/20/22 0940 <Electronically signed by Santo Merida MD> Cosigner Signature (if applicable): CC: Dr. Prosper Roman DO ~ Signed [facility] Work Phone: [phone] 533-408702-21-2023 Telephone encounter Note* Telephone Encounter - Denise Lindquist - 06/13/2022 4:10 PM EST Will start auth [employer] [id number] Miscellaneous Notes* Telephone Encounter - Denise Lindquist - 06/13/2022 4:10 PM EST Will start auth * Telephone Encounter - Nancy Barrios - 06/13/2022 11:49 AM EST Name of caller: Dayana Briggs Contact phone number: [phone] Relationship to Patient: patient Provider: Jazmin Moy PA-C Practice: [facility] Chief Complaint/Reason for Call: Pt called requesting that a prior authorization to insurance be completed for the CT Chest dated 05-02-2022. Please advise. Best time of day caller can be reached: any Patient advised that office/PCP has 24-48 business hours to return their call: No documented in this encounterSEast [id number] Telephone encounter Note* Telephone Encounter - Nancy Barrios - 06/13/2022 11:49 AM EST Name of caller: Dayana Briggs Contact phone number: [phone] Relationship to Patient: patient Provider: Jazmin Moy PA-C Practice: [facility] Chief Complaint/Reason for Call: Pt called requesting that a prior authorization to insurance be completed for the CT Chest dated 05-02-2022. Please advise. Best time of day caller can be reached: any Patient advised that office/PCP has 24-48 business hours to return their call: No [id number] History of Present illness Narrative* Jazmin Moy PA-C - 05/26/2022 10:00 AM EST Images from the original note were not included. [facility] [address] [address] Dept: [phone] Dept Loc: [phone] Visit type: Established Patient Reason for Visit: Wheezing Assessment and Plan 1. COPD with acute exacerbation ([facility]) ([facility]) Comments: Acute exacerbation with h/o same. Continue prednisone over the next 4 days refill of her inhaler medication with strict instructions to ER if worse Orders: - predniSONE (Deltasone) 20 MG tablet; Take 2 tablets (40 mg) by mouth 2 times daily for 4 days., Starting Sun05/26/2022, Until Sun05/30/2022, Normal - levoFLOXacin (Levaquin) 500 MG tablet; Take 1 tablet (500 mg) by mouth daily for 7 days., Starting Sun05/26/2022, Until Sun06/02/2022, Normal - albuterol (2.5 MG/3ML) 0.083% nebulizer solution; Take 3 mL (2.5 mg) by nebulization as needed for wheezing or shortness of breath., Starting Sun05/26/2022, Until 05/26/2023 at 2359, Normal - XR chest 2 views Follow up for Next scheduled follow-up. Patient is conversant having mild shortness of breath. She knows her self better than anyone else she states this is as bad as its been in the past. She knows to go to the ER when he gets worse to the point she cannot breathe. Because of her increasing shortness of breath she did start her prednisone at home 60 mg daily but she is about out of it needs more prednisone. She states this is usually g ets her through the acute exacerbations. She has been using her inhaler medication and needs refills as well. She denies any associated fever chills rigors with this she does not appear acutely septic or toxic she does not appear hypoxic in nature. We will increase her prednisone she states usuallyshe gets an antibiotic and this helps get her through it we will prescribe this as well she has tolerated Levaquin in the past we did talk about the risk associate with the fluoroquinolones she is understanding of this and states that this usually works better for her. She also states she was on doxycycline about a month ago. She goes to go to the ER if her symptoms change or worsen or she finds self having difficulty breathing or any of the symptoms worsen she is to seek emergent evaluation. Subjective HPI this is a pleasant 72-year-old female with an underlying history of COPD with periodic exacerbations on continuous oxygen comes in for exacerbation and worsening of her wheezing a week. She states her [id number] recently and they went to his house and spent 2 days there intermittently for several hours cleaning out the house only to find that the house had a bunch of mold in it. She thinks that this has exacerbated her asthma COPD and subsequently has caused increased wheezing cough congestion. She does state now she is coughing up a lot of thick yellowish sputum. She started on prednisone taking 60 mg daily for the last 2 days. She also admits that she has been using herinhaled medications little bit more frequently and needs a refill of albuterol nebulized medication. She did have 1 point where her pulse ox dropped and she exerted herself she states she walked up aseries of steps and at the top of steps her pulse ox got to 65% but she states with resting it rebounded into the 90s very quickly. It is an isolated one-time event it is never dropped below again staying in the 90s low 90s. She denies any current fever chills rigors. Does state she has a bit of pain underneath her ribs and upper abdomen from coughing so much. She has been using cough drops that seem to help. She denies any associated hemoptysis or hematemesis. Denies any nausea vomiting or diar matty. Review of Systems Constitutional: Positive for fatigue. Negative for chills, diaphoresis and fever. HENT: Positive for congestion. Negative for sinus pressure, sinus pain, sore throat and trouble swallowing. Respiratory: Positive for cough, shortness of breath and wheezing. Negative for choking and chest tightness. Cardiovascular: Negative for chest pain, palpitations and leg swelling. Gastrointestinal: Negative for abdominal pain, diarrhea, nausea and vomiting. Genitourinary: Negative for difficulty urinating and dysuria. Musculoskeletal: Negative for back pain. Neurological: Negative for dizziness, numbness and headaches. All other systems reviewed and are negative. [...] to Visit Medication Sig Dispense Refill albuterol 108 (90 Base) MCG/ACT inhaler Inhale 2 puffs every 4 hours as needed for shortness of breath. 3 each 0 amLODIPine (Norvasc) 5 MG tablet Take 1 tablet (5 mg) by mouth daily. 90 tablet 0 budesonide (Pulmicort) 0.5 MG/2ML nebulizer solution USE 1 VIAL VIA NEBULIZER TWICE A DAY cholecalciferol (Vitamin D-3) 25 MCG (1000 UT) capsule Take 1 capsule by mouth in the morning and 1capsule before bedtime. formoterol (Perforomist) 20 MCG/2ML nebulizer solution 20 mcg. ipratropium (Atrovent) 0.02 % nebulizer solution INHALE THE CONTENTS OF 1 VIAL VIA NEBULIZER 2 TIMES DAILY ipratropium-albuterol (Duo-Neb) 0.5-2.5 mg/3 mL nebulizer solution Inhale 1 vial. levothyroxine (Synthroid, Levoxyl) 100 MCG tablet Take 1 tablet (100 mcg) by mouth daily for 5000 doses. 90 tablet 0 lidocaine (Lidoderm) 5 % patch Apply 1 patch topically daily. Apply to painful area 12 hours per day, remove for 12 hours. 14 patch 2 Magnesium 100 MG capsule Take by mouth. omeprazole (PriLOSEC) [address] capsule Take 1 capsule (20 mg) by mouth daily. 90 capsule 0 Potassium Gluconate 2.5 MEQ tablet Take by mouth. predniSONE (Deltasone) 10 MG tablet One qid for 2 days One tid for 2 days One bid for 2 days One daily for 2 days 20 tablet 0 spironolactone (Aldactone) 25 MG tablet Take 1 tablet (25 mg) by mouth daily. 90 tablet 0 tiotropium (Spiriva HandiHaler) [address] 1 capsule into inhaler and inhale daily. zafirlukast (Accolate) 20 MG tablet Take 20 mg by mouth in the morning and 20 mg before bedtime. No facility-administered medications prior to visit. 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 Decker, [place], [place] Renal stones Social History Tobacco Use Smoking status: Former Packs/day: 2.00 Types: Cigarettes Start date: 09/14/1953 Quit date: 12/01/2008 Years since quittin.4 Smokeless tobacco: Never Substance Use Topics Alcohol use: No Alcohol/week: 0.0 standard drinks Past Surgical History: Procedure Laterality Date APPENDECTOMY ATRIAL ABLATION SURGERY 2013 CATARACT EXTRACTION W/ INTRAOCULAR LENS IMPLANT Bilateral COLONOSCOPY 11/05/2018 Repeat colonoscopy 10 years. COLONOSCOPY 2008-Repeat due 2018 DENTAL SURGERY dentures HEMORRHOID SURGERY 1995 MENISCECTOMY Left 07/06/2015 Mookie SKIN BIOPSY from left arm, under right breast, and forehead. All negative for CA TONSILLECTOMY (HISTORICAL) TOTAL VAGINAL HYSTERECTOMY 1994 Ovaries intact Family History Problem Relation Name Age of Onset Other (41514) Sister adrenal issues Rheum arthritis Father 58 No Known Problems Brother No Known Problems Brother High Blood Pressure Mother alive age 90 No Known Problems Sister Heart disease Father 58 age 58 No Known Problems Brother No Known Problems Brother Objective BP (!) 147/80 (BP Location: Left arm, Patient Position: Sitting, BP Cuff Size: Large adult) Pulse91 Temp 36.8 C (98.2 F) (Oral) Ht 5' 1 (1.549 m) Wt 158 lb (71.7 kg) SpO2 98% BMI 29.85 kg/m Physical Exam Vitals reviewed. Constitutional: General: She is not in acute distress. Appearance: Normal appearance. She is not ill-appearing or toxic-appearing. HENT: Right Ear: Tympanic membrane and ear canal normal. Left Ear: Tympanic membrane and ear canal normal. Mouth/Throat: Mouth: Mucous membranes are dry. Pharynx: Oropharynx is clear. Eyes: Extraocular Movements: Extraocular movements intact. Pupils: Pupils are equal, round, and reactive to light. Cardiovascular: Rate and Rhythm: Normal rate and regular rhythm. Heart sounds: Normal heart sounds. Pulmonary: Effort: Pulmonary effort is normal. No respiratory distress. Breath sounds: Rales present. Comments: Inspiratory and extra wheezing was noted predominantly in the bases bilaterally. She doesnot have any signs of pursed lip breathing. There is no signs of accessory muscle use. She is conversant speaking clear sentences without any difficulty. There is no signs of perioral cyanosis. No obvious signs of acute respiratory distress. Abdominal: General: Bowel sounds are normal. Palpations: Abdomen is soft. Tenderness: There is no abdominal tenderness. There is no guarding. Musculoskeletal: Cervical back: Normal range of motion and neck supple. Right lower leg: No edema. Left lower leg: No edema. Skin: General: Skin is warm and dry. Neurological: Mental Status: She is alert. Psychiatric: Mood and Affect: Mood normal. Data Reviewed and Summarized Labs: Imaging/Testing: Jazmin Moy PA-C 05/26/2022 Please note that portions of this note may have been completed with voice recognition software. Documentation reviewed prior to signing but minor errors in billiard table repairer may have occurred. documented in this [facility]02-02-2023 Telephone encounter Note* Telephone Encounter - Cherry Potts - 05/25/2022 3:32 PM EST Error [id number] Miscellaneous Notes* Telephone Encounter - Cherry Potts - 05/25/2022 3:32 PM EST Error documented in this [facility]01-10-2023 History of Present illness Narrative* Jazmin Moy PA-C - 05/02/2022 10:00 AM EST Images from the original note were not included. [facility] [address] [facility] [address] Dept: [phone] Dept Loc: [phone] Visit type: Established Patient Reason for Visit: ER Follow-up Assessment and Plan 1. Closed fracture of one rib of right side with routine healing, subsequent encounter Comments: Acute right fifth fracture based on previous image at [facility], will obtain CT to evaluate for pulmonary injury and other potential pathologic fractures Orders: - CT chest wo IV contrast, ordered secondary to repeat episode of increased pain not previously seen in the ER on the sixth of this month to evaluate for multiple rib fractures. - lidocaine (Lidoderm) 5 % patch; Apply 1 patch topically daily. Apply to painful area 12 hours perday, remove for 12 hours., Starting Sun05/02/2022, Until Sun06/13/2022, Normal 2. Lung nodule Comments: History of lung nodule decreased from 1.6 to 1.3 cm patient currently following with pulmonology scheduled for follow-up next month Orders: - CT chest wo IV contrast Follow up in about 6 months (around 10/30/2022) for Next scheduled follow-up. Patient states she is not having any more shortness of breath than usual with her history of COPD she has been on prednisone in the past she is not currently taking prednisone. Her pain is intermittently controlled using Motrin throughout the day. She was given stronger pain medications she does not take them nor request anything stronger at this point time. These were unprovoked attack she states she was simply walking and either coughed or moved and suddenly had a from a fractured rib based on ER visit. She states her wheezing is at about baseline if not better she has been using her inhalers as directed there is been no changes to any of her medications. She has no other concerns or complaints at this point time encouraged her to use her incentive spirometer which she already has at home and use the Lidoderm patches and Motrin as needed for breakthrough pain. Subjective HPI this is a very pleasant 72-year-old female with an underlying history of hypertension COPD and acid reflux who states on Nadia she was walking her kitchen and suddenly felt some pain in her ribs to the point she could not twist or bend or hurt when she coughed or took a deep breath. She states she called EMS but they stated she would need a ride on the gurney and since she cannot sitdown or lay down on the gurney she was required to take her self to the ER allegedly. In the ER shestates she had x-rays which showed a fractured right rib. She was given pain meds and discharged. She states on 28 April she had a similar episode and she states she knows what it feels like so she felt like she fractured another rib so she just did not go back to the ER for going there is not much they can do for the pain. She comes in today for follow-up stating that she has pain when she takes a deep breath primarily on the right side. She is always short of breath she states its not any more than normal. She denies any current chest pain or palpitations. Appetites been good she is been eating and drinking appropriately. She denies any associate nausea vomiting diarrhea. Denies any calfpain swelling or tenderness. Review of Systems Constitutional: Negative for chills and fever. HENT: Negative for congestion and sore throat. Respiratory: Positive for shortness of breath (Chronic in nature no worse than usual). Negative forcough. Patient denies any current hemoptysis or hematemesis. Denies any sputum production. Cardiovascular: Negative for chest pain. Gastrointestinal: Negative for abdominal pain, diarrhea, nausea and vomiting. Genitourinary: Negative for [...] to Visit Medication Sig Dispense Refill albuterol 108 (90 Base) MCG/ACT inhaler Inhale 2 puffs every 4 hours as needed for shortness of breath. 3 each 0 amLODIPine (Norvasc) 5 MG tablet Take 1 tablet (5 mg) by mouth daily. 90 tablet 0 budesonide (Pulmicort) 0.5 MG/2ML nebulizer solution USE 1 VIAL VIA NEBULIZER TWICE A DAY cholecalciferol (Vitamin D-3) 25 MCG (1000 UT) capsule Take 1 capsule by mouth in the morning and 1capsule before bedtime. formoterol (Perforomist) 20 MCG/2ML nebulizer solution 20 mcg. ipratropium (Atrovent) 0.02 % nebulizer solution INHALE THE CONTENTS OF 1 VIAL VIA NEBULIZER 2 TIMES DAILY ipratropium-albuterol (Duo-Neb) 0.5-2.5 mg/3 mL nebulizer solution Inhale 1 vial. levothyroxine (Synthroid, Levoxyl) 100 MCG tablet Take 1 tablet (100 mcg) by mouth daily for 5000 doses. 90 tablet 0 Magnesium 100 MG capsule Take by mouth. omeprazole (PriLOSEC) [address] capsule Take 1 capsule (20 mg) by mouth daily. 90 capsule 0 Potassium Gluconate 2.5 MEQ tablet Take by mouth. spironolactone (Aldactone) 25 MG tablet Take 1 tablet (25 mg) by mouth daily. 90 tablet 0 tiotropium (Spiriva HandiHaler) [address] 1 capsule into inhaler and inhale daily. zafirlukast (Accolate) 20 MG tablet Take 20 mg by mouth in the morning and 20 mg before bedtime. predniSONE (Deltasone) 10 MG tablet One qid for 2 days One tid for 2 days One bid for 2 days One daily for 2 days (Patient not taking: Reported on 05/02/2022) 20 tablet 0 No facility-administered medications prior to visit. Past Medical History: Diagnosis Date Asthma 2006 Breast cancer screening 04/2021 COPD (chronic obstructive pulmonary disease) ([facility]) 2014 Home O2 since 2015 Ex-smoker 2009 GERD (gastroesophageal reflux disease) History of idiopathic thrombocytopenic purpura 2006 resolved History of shingles 12/2020 left CN V Hypertension 2004 Hypothyroidism IBS (irritable bowel syndrome) 2000 2008 colonoscopy per [facility]- due 2018 Immunoglobulin deficiency (CMS/HCC) (HCC) 2008 monthly IVIG infusion per Dr. Decker [place], [place] Renal stones Social History Tobacco Use Smoking status: Former Packs/day: 2.00 Types: Cigarettes Start date: 09/14/1953 Quit date: 12/01/2008 Years since quittin.4 Smokeless tobacco: Never Substance Use Topics Alcohol use: No Alcohol/week: 0.0 standard drinks Past Surgical History: Procedure Laterality Date APPENDECTOMY [...] Problem Relation Name Age of Onset Other (52952) Sister adrenal issues Rheum arthritis Father 58 No Known Problems Brother No Known Problems Brother High Blood Pressure Mother alive age 90 No Known Problems Sister Heart disease Father 58 age 58 No Known Problems Brother No Known Problems Brother Objective BP 126/78 (BP Location: Left arm, Patient Position: Sitting, BP Cuff Size: Large adult) Pulse 82 Temp 36.7 C (98 F) (Temporal) Ht 5' 1 (1.549 m) Wt 162 lb (73.5 kg) SpO2 98% BMI 30.61 kg/m Physical Exam Vitals reviewed. Constitutional: General: She is not in acute distress. Appearance: Normal appearance. She is not ill-appearing or toxic-appearing. Cardiovascular: Rate and Rhythm: Normal rate and regular rhythm. Heart sounds: Normal heart sounds. Pulmonary: Effort: Pulmonary effort is normal. Breath sounds: No stridor. Wheezing (Slight wheezing noted more on the left base with exhalation) present. No rhonchi. Abdominal: General: Bowel sounds are normal. Palpations: Abdomen is soft. Tenderness: There is no abdominal tenderness. There is no guarding. Musculoskeletal: Cervical back: Normal range of motion and neck supple. No rigidity. Right lower leg: No edema. Left lower leg: No edema. Comments: History of right frozen shoulder unable to flex the shoulder beyond approximately 40 to 45 degrees. Lymphadenopathy: Cervical: No cervical adenopathy. Skin: General: Skin is warm and dry. Comments: Evaluation of her back and torso shows no visible signs of injury or trauma no contusionsbruises abrasions or rashes or signs of zoster. Neurological: Mental Status: She is alert. Data Reviewed and Summarized Labs: Imaging/Testing: Jazmin Moy PA-C 05/02/2022 Please note that portions of this note may have been completed with voice recognition software. Documentation reviewed prior to signing but minor errors in billiard table repairer may have occurred. documented in [facility]12-02-2022 Telephone encounter Note* Telephone Encounter - Quan De La Fuente - 03/24/2022 9:51 AM EST Name of caller: Dayana Contact phone number: [phone] Relationship to Patient: patient Provider: Dr. Zepeda Practice: [facility] Chief Complaint/Reason for Call: Pt called in stating she seen the doctor recently and has supposedto call in a rx for prednisone and an antibiotic, but nothing was called into the pharmacy. Please call in to the pharmacy on file. Best time of day caller can be reached: AM Patient advised that office/PCP has 24-48 business hours to return their call: N/A [id number] Miscellaneous Notes* Telephone Encounter - Quan De La Fuente - 03/24/2022 9:51 AM EST Name of caller: Dayana Contact phone number: [phone] Relationship to Patient: patient Provider: Dr. Zepeda Practice: [facility] Chief Complaint/Reason for Call: Pt called in stating she seen the doctor recently and has supposedto call in a rx for prednisone and an antibiotic, but nothing was called into the pharmacy. Please call in to the pharmacy on file. Best time of day caller can be reached: AM Patient advised that office/PCP has 24-48 business hours to return their call: N/A documented in this [facility] note Author Dr. Levine [facility] August 17, 2022 2:01am Note Date/Time August 17, 2022 2:0 1am [facility] Medical Records Department [address] [place] [id number] Consultation - Surgical 08/17/22 0149 MR#: [id number] Acct: [id number] Name: DAYANA BRIGGS Rep #:[id number] : 1950 72 From: Chloé Levine MD PCP: Dr. Prosper Roman, DO Status:RE G ER Location: ED Assessment & Plan Assessment/Plan (1) Incisional hernia of anterior abdominal wall without obstruction or gangrene: PLAN: Plan Was able to reduce the colon from the hernia due to this not being a full- thickness hernia difficult to get all of the abdominal fat back and it is likelysome of this is always out. Bedside ultrasound did confirm cecum reduced back in the abdomen. Patient states her pain is improved. Patient stay in the ER for all but to make sure the pain is still improved. Discussed with patient that she can follow-up with me in the office however if she does have pain like this again when asked to come back to the ER. Also discussed that timing of surgery would depend on her COPD exacerbations for which she has been frequentlytreated with steroids and antibiotics. Patient was agreeable with plan. Also recommend patient take laxatives to prevent any constipation as additional straining may cause more to protrude through the hernia. Chloé Levine M.D. Pager: [phone] [facility] [address] [place] [address], [facility], [address] [place] [address] Office: [phone] HPI Consult Data Date of Consult: 08/17/22 HPI Narrative Reason for Consultation: Incisional hernia, abdominal pain HPI Narrative: DAYANA BRIGGS, is a 72 F who presents presents due to right lower quadrant pain/hernia. Patient states this pain started this evening and normally she does not have pain with her known hernia. Patient also has significant past medical history of COPD is currently on her third day of prednisone 40 mg p.o. and also amoxicillin patient does have home O2 which she states she can not wearfor quick trips out of the house otherwise on 2 L nasal cannula. Patient statesshe needs to sit up to prevent wheezing currently. Few weeks before patient also had steroids as well as antibiotic. Patient states she knows she has had ahernia seen a specialist unsure if she had a CAT scan anything at that time but was told due to her weight being 180 pounds that I cannot be repaired at that time. Patient does not really notice that she has a hernia normally or bulge and does not really feel the area. Even she presented to the ER cannot really sayif she had a bulge or not. CT abdomen pelvis was done which showed possible spigelian hernia however patient does have an incision in this area from an openappendectomy. This did contain some the cecum with stool and then abdominal fat. The neck of the hernia is about 4 cm. Patient did have a white blood count 23 but again is on prednisone for last 3 days. ER physician did try to reduce was not able to feel the edges well due to it is still having external layer of fascia?CT abdomen pelvis was after some attempt at reducing. Patient states she does get constipated but does not take any medications for this. [facility] Medical History Acute and chronic respiratory failure with hypoxia Anemia Asthma Bronchitis COPD (chronic obstructive pulmonary disease) COPD (chronic obstructive pulmonary disease) COPD (chronic obstructive pulmonary disease) Former smoker Former smoker GERD (gastroesophageal reflux disease) GERD (gastroesophageal reflux disease) HTN (hypertension) Hypertension Hypertension Hypothyroid Hypothyroidism Immune deficiency disorder Immune deficiency disorder Leukocytosis Obesity (BMI 30.0-34.9) On home oxygen therapy Osteoporosis RSV infection Thrombocytosis Thrush Home Medications albuterol sulfate 90 mcg/actuation aerosol inhaler (ProAir HFA) 2 puff inhalation Q4H PRN PRN Sob &/Or Wheezing 07/22/14 [History Last Taken Unknown] budesonide 0.5 mg/2 mL suspension for nebulization 1 applicatio inhalation BID breathing 07/22/14 [History Last Taken 07/21/14] formoterol fumarate 20 mcg/2 mL solution for nebulization (Perforomist) 20 mcg inhalation BID breathing 07/22/14 [History Last Taken 07/21/14] levothyroxine 100 mcg tablet 100 mcg PO DAILY thyroid 07/22/14 [History Last Taken 07/22/14] omeprazole 20 mg capsule,delayed release 20 mg PO DAILY stomach 07/22/14 [History Last Taken 07/21/14] ipratropium bromide 0.02 % solution for inhalation 2.5 ml inhalation BID breathing 11/26/20 [History Last Taken Unknown] oxycodone-acetaminophen 5 mg-325 mg tablet 1 tab PO Q6H PRN PRN Pain 3 days #12 TABLETS 04/23/22 [Rx Last Taken Unknown] albuterol sulfate 2.5 mg/3 mL (0.083 %) solution for nebulization 2.5 mg inhalation Q4H PRN shortness of breath or wheezing 05/29/22 [History Last Taken Unknown] amlodipine 5 mg tablet 5 mg PO DAILY 05/29/22 [History Last Taken Unknown] cholecalciferol (vitamin D3) 25 mcg (1,000 unit) capsule 25 mcg PO DAILY 05/29/22 [History Last Taken Unknown] ipratropium 0.5 mg-albuterol 3 mg (2.5 mg base)/3 mL nebulization soln 3 ml inhalation Q6H PRN 05/29/22 [History Last Taken Unknown] magnesium 200 mg tablet See Rx Instructions PO DAILY 05/29/22 [History Last Taken Unknown] potassium gluconate 2.5 mEq tablet 2.5 meq PO DAILY 05/29/22 [History Last Taken Unknown] spironolactone 25 mg tablet 25 mg PO DAILY 05/29/22 [History Last Taken Unknown] tiotropium bromide 18 mcg capsule with inhalation device (Spiriva with HandiHaler) 1 cap inhalation DAILY 05/29/22 [History Last Taken Unknown] zafirlukast 20 mg tablet 20 mg PO BID 05/29/22 [History Last Taken Unknown] levofloxacin 500 mg tablet 500 mg PO DAILY #7 tabs 06/20/22 [Rx Last Taken Unknown] prednisone 10 mg tablet 10 mg PO DAILY #42 TABLETS 06/20/22 [Rx Last Taken Unknown] Allergy/AdvReac Type Severity Reaction Status Date / Time Environmental Allergies: Allergy Intermediate PT UNABLE Verified 08/16/22 21:19 Uncoded TO RESPOND-NEEDS F/U ampicillin Allergy stomach Verified 08/16/22 21:19 issues aspirin [ASA] Allergy Hives Verified 08/16/22 21:19 cephalexin monohydrate Allergy Hives Verified 08/16/22 21:19 [From Keflex] Family History Mother Hypertension Father Rheumatoid arthritis Heart disease Surgical History History of appendectomy History of cholecystectomy Hx of appendectomy Hx of cholecystectomy Hx of hysterectomy Hx of tonsillectomy Social History household members: spouse Smoking Status: Former smoker how long ago did patient quit smoking: Quit 2008, prior 1-1.5 ppd since youth. alcohol intake: never substance use type: does not use ROS Constitutional Constitutional: Denies anorexia or fever(s) Eyes Eyes: Denies loss of central vision ENT HEENT: Denies dysphagia Cardiovascular Cardiovascular: Denies chest pain Respiratory/Chest Respiratory/Chest: Reports cough, shortness of breath at rest, shortness of breath with exertion and wheezing Gastrointestinal Gastrointestinal: Reports abdominal pain and constipation; Denies nausea or vomiting Genitourinary Genitourinary: Denies dysuria Musculoskeletal Musculoskeletal: Denies joint swelling Integumentary Integumentary: Denies rash Neurologic Neurologic: Denies focal weakness Psychiatric Psychiatric: Denies anxiety or depression Endocrine Endocrinology: Denies palpitations Hematologic/Lymphatic Hematologic/Lymphatic: Denies easy bleeding Physical Exam Const alert, oriented x3 and no apparent distress HEENT normocephalic and head/scalp atraumatic Neck supple Resp normal respiratory effort Resp Narrative: 2 L nasal cannula in place Effort and Inspection: able to speak in complete sentences Cardio regular rate GI soft to palpation; Negative for non-distended GI Narrative: Patient is a previous right lower quadrant incision from an open appendectomy. There is a bulge at this area. More difficult to define the hernia as it is still under care of external fascia per CT. Able to reduce the colon at bedside. Did not completely reduce the abdominal fat?confirmed with bedside ultrasound. The defect is right inferior to her previous appendectomy incision able to be felt after reducing the colon. Palpation: tender RLQ (Only with pushing to reduce the hernia) and hernia; Negative for guarding Extremity no clubbing, cyanosis or edema Skin no rashes or lesions noted Neuro CN's II-XII intact bilaterally Psych mental status grossly normal and affect normal Lab / Micro Data Result Diagrams: 08/16/22 22:09 08/16/22 22:09 Labs: Laboratory Results - last 24 hr 08/16/22 22:09: WBC 23.2 H, RBC 4.55, Hgb 12.5, Hct 39.3, MCV 86.4, MCH 27.5, MCHC 31.8 L, RDW Std Deviation 48.8 H, RDW Coeff of [place] 15.4 H, Plt Count 521 H,MPV 9.4, Immature Gran % (Auto) 0.900, Neut % (Auto) 95.5 H, Lymph % (Auto) 1.9 L, [place] % (Auto) 1.5, Eos % (Auto) 0.0, Baso % (Auto) 0.2, Absolute Neuts (auto)22.1 H, Absolute Lymphs (auto) 0.44 L, Nucleated RBC % 0, Differential Comment SCANNED 08/16/22 22:09: Sodium 137, Potassium 4.2, Chloride 105, Carbon Dioxide 26.0, Anion Gap 6, BUN 19 H, Creatinine 1.02, Estim Creat Clear Calc 38.73, Est GFR (MDRD) Af Amer 69, Est GFR (MDRD) Non-Af 57 L, BUN/Creatinine Ratio 18.6, Glucose 141 H, Calcium 9.9 08/16/22 22:09: Urine Color Yellow, Urine Clarity Clear, Urine pH 6.0, Ur Specific Oscar 1.010, Urine Protein 15 H, Urine Glucose (UA) Normal, Urine Ketones Negative, Urine Occult Blood 10 H, Urine Nitrite Negative, Urine Bilirubin Negative, Urine Urobilinogen Normal, Ur Leukocyte Esterase 500 H, Urine RBC 0-5 SEEN, Urine WBC 10-25 SEEN, Ur Squamous Epith Cells 0-5 SEEN, Urine Bacteria RARE, Urine Mucus 0 SEEN Radiology Impression Abdomen/Pelvis CT 08/16/22 21:49 IMPRESSION: Right lateral ventral hernia which may represent a spigelian hernia. A portion of the colon is herniated through the defect. There is no obstruction. No other acute abnormalities are identified. Electronically Signed: Gregorio Villafuerte MD at 23:09 EDT , Charges/Coding Visit Charges Office Visits / Consults: [id number] OP Consult L4 08/17/22 0201 <Electronically signed by Chloé Levine MD> Cosigner Signature (if applicable): CC: Dr. Prosper Roman, DO~ Signed [facility] Work Phone: Evaluation note* Diagnosis Pneumonia of right lung due to infectious organism, unspecified part of lung- Primary COPD exacerbation (HCC) Obstructive chronic bronchitis with exacerbation documented in this encounter [facility] Work Phone: Evaluation note* Diagnosis Menopause Symptomatic menopausal or female climacteric states documented in this encounter [facility] Work Phone: Evaluation note* Diagnosis Lung nodule [...] in this encounter [facility] Work Phone: Evaluation noteNo assessment information available [facility] Work Phone: Evaluation note* Diagnosis Screening mammogram, [...] (HCC) Other emphysema documented in this encounter [facility] Work Phone: Evaluation note* Diagnosis Centrilobular emphysema (CMS/HCC) (HCC)- Primary Chronic respiratory failure with hypoxia (CMS/HCC) (HCC) Lung nodule Other diseases of lung, not elsewhere classified Chronic obstructive pulmonary disease, unspecified COPD type (HCC) documented in this encounter [facility]* Diagnosis Closed fracture of one rib of right side with routine healing, subsequent encounter Lung nodule Other diseases of lung, not elsewhere classified documented in this encounter [facility]* Diagnosis Centrilobular emphysema (HCC)- Primary Chronic respiratory failure with hypoxia (CMS/HCC) (HCC) Lung nodule Other diseases of lung, not elsewhere classified Chronic obstructive pulmonary disease, unspecified COPD type (HCC) documented in this encounter [facility]* Diagnosis Chronic respiratory failure with hypoxia (CMS/HCC) (HCC)- Primary Centrilobular emphysema (HCC) Lung nodule Other diseases of lung, not elsewhere classified Tobacco use disorder, severe, 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 COPD exacerbation (HCC) Obstructive chronic bronchitis with exacerbation documented in this encounter [facility]* Diagnosis Preop pulmonary/respiratory exam- Primary Pre-operative respiratory examination Chronic respiratory failure with hypoxia (CMS/HCC) (HCC) Centrilobular emphysema (HCC) Lung nodule Other diseases of lung, not elsewhere classified Tobacco use disorder, severe, 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 documented in this encounter [facility]* Diagnosis Diarrhea, unspecified type- Primary documented in this encounter [facility]* Diagnosis COPD exacerbation (HCC)- Primary Obstructive chronic bronchitis with exacerbation Ventral hernia without obstruction or gangrene Unspecified ventral hernia without mention of obstruction or gangrene documented in this encounter [facility]* Diagnosis Preop pulmonary/respiratory exam- Primary Pre-operative respiratory examination Chronic respiratory failure with hypoxia (CMS/HCC) (HCC) Centrilobular emphysema (HCC) Lung nodule Other diseases of lung, not elsewhere classified Tobacco use disorder, severe, 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 documented in this encounter [facility]* Diagnosis COPD with acute exacerbation (HCC) documented in this encounter [facility]* Diagnosis Chronic respiratory failure with hypoxia (CMS/HCC) (HCC)- Primary Centrilobular emphysema (HCC) Nodule of upper lobe of right lung Preop pulmonary/respiratory exam Pre-operative respiratory examination Tobacco use disorder, severe, in sustained remission documented in this encounter [facility]* Diagnosis Centrilobular emphysema (HCC) documented in this encounter [facility]* Diagnosis Onset Date Resolution Status Osteoporosis acute [facility] Work Phone: Evaluation note* Diagnosis Centrilobular emphysema (HCC) documented in this encounter [facility]* Diagnosis COPD exacerbation (HCC)- Primary Obstructive chronic bronchitis with exacerbation documented in this encounter [facility]* Diagnosis COPD exacerbation (HCC)- Primary Obstructive chronic bronchitis with exacerbation Primary hypertension Unspecified essential hypertension Screening for lipid disorders Hypothyroidism, unspecified type Gastroesophageal reflux disease without esophagitis Esophageal reflux Centrilobular emphysema (HCC) documented in this encounter [facility]* Diagnosis Centrilobular emphysema (HCC)- Primary documented in this encounter [facility]* Diagnosis Centrilobular emphysema (HCC) documented in this encounter [facility]* Diagnosis Very severe chronic obstructive pulmonary disease (HCC)- Primary Centrilobular emphysema (HCC) Chronic respiratory failure with hypoxia (HCC) Lung nodule Other diseases of lung, not elsewhere classified 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 Cigarette smoker Tobacco use disorder documented in this encounter [facility]* Diagnosis Bladder prolapse, female, acquired- Primary Vaginal discharge Leukorrhea, not specified as infective Incontinence in female COPD exacerbation (HCC) Obstructive chronic bronchitis with exacerbation Acute bacterial conjunctivitis of right eye documented in this encounter [facility]* Diagnosis Very severe chronic obstructive pulmonary disease (HCC) documented in this encounter [facility]* Diagnosis Vaginal prolapse- Primary Unspecified prolapse of vaginal davis Bladder prolapse, female, acquired Vaginal discharge Leukorrhea, not specified as infective Incontinence in female documented in this encounter [facility]* Diagnosis COPD exacerbation (HCC)- Primary Obstructive chronic bronchitis with exacerbation documented in this encounter [facility]* Diagnosis Very severe chronic obstructive pulmonary disease (HCC) documented in this encounter [facility]* Diagnosis Cigarette smoker Tobacco use disorder documented in this encounter [facility]* Diagnosis COPD exacerbation (HCC) Obstructive chronic bronchitis with exacerbation [facility] Diagnosis COPD exacerbation (HCC)- Primary Obstructive chronic bronchitis with exacerbation [facility]* Diagnosis Chronic respiratory failure with hypoxia (HCC)- Primary Centrilobular emphysema (HCC) Nodule of upper lobe of right lung Tobacco use disorder, severe, in sustained remission Very severe chronic obstructive pulmonary disease (HCC) [facility]* Diagnosis COPD exacerbation (HCC)- Primary Obstructive chronic bronchitis with exacerbation Primary hypertension Unspecified essential hypertension Centrilobular emphysema (HCC) Very severe chronic obstructive pulmonary disease (HCC) Encounter for screening mammogram for malignant neoplasm of breast Hypothyroidism, unspecified type [facility] Diagnosis Primary hypertension Unspecified essential hypertension documented in this encounter [facility]* Diagnosis Centrilobular emphysema (HCC)- Primary 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 Very severe chronic obstructive pulmonary disease (HCC) [facility]* Diagnosis Centrilobular emphysema (HCC)- Primary 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 Very severe chronic obstructive pulmonary disease (HCC) [facility]* Diagnosis COPD with acute exacerbation (HCC)- Primary [facility]* Diagnosis COPD with acute exacerbation (HCC)- Primary Centrilobular emphysema (HCC) Very severe chronic obstructive pulmonary disease (HCC) documented [facility] encounter [facility] Primary hypertension Unspecified essential hypertension [facility] Diagnosis COPD exacerbation (HCC)- Primary Obstructive chronic bronchitis with exacerbation Mixed hyperlipidemia [facility]* Diagnosis Gastroesophageal reflux disease without esophagitis Esophageal reflux documented in [facility] encounter [facility]* Diagnosis Chronic respiratory failure with hypoxia (HCC)- Primary Centrilobular emphysema (HCC) Nodule of upper lobe of right lung Tobacco use disorder, severe, in sustained remission Personal history of tobacco use, presenting hazards to health COPD exacerbation (HCC) Obstructive chronic bronchitis with exacerbation documented in this encounter [facility]* Diagnosis Chronic respiratory failure with hypoxia (HCC)- Primary Centrilobular emphysema (HCC) Nodule of upper lobe of right lung Tobacco use disorder, severe, in sustained remission Personal history of tobacco use, presenting hazards to health COPD exacerbation (HCC) Obstructive chronic bronchitis with exacerbation documented in this encounter [facility]* Diagnosis Chronic respiratory failure with hypoxia (HCC) documented in this encounter [facility]* Diagnosis Primary hypertension Unspecified essential hypertension COPD with acute exacerbation (HCC) documented [facility] this encounter [facility]* Diagnosis Centrilobular emphysema (HCC)- Primary Wheezing 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 Chronic respiratory failure with hypoxia (HCC) Nodule of upper lobe of right lung Personal history of tobacco use, presenting hazards to health documented in this encounter [facility]* Diagnosis Centrilobular emphysema (HCC)- Primary Wheezing 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 Chronic respiratory failure with hypoxia (HCC) Nodule of upper lobe of right lung Personal history of tobacco use, presenting hazards to health SOB (shortness of breath) Shortness of breath documented in this encounter [facility]* Diagnosis Chronic respiratory failure with hypoxia (HCC)- Primary Centrilobular emphysema (HCC) Nodule of upper lobe of right lung Tobacco use disorder, severe, in sustained remission Personal history of tobacco use, presenting hazards to health COPD exacerbation (HCC) Obstructive chronic bronchitis with exacerbation SOB (shortness of breath) Shortness of breath Chronic respiratory failure with hypoxia (HCC) Chronic respiratory failure with hypoxia (HCC) SOB (shortness of breath) Shortness of breath documented in this encounter [facility]* Diagnosis Chronic respiratory failure with hypoxia (HCC) SOB (shortness of breath) Shortness of breath documented in this encounter [facility]* Diagnosis Centrilobular emphysema (HCC)- Primary Wheezing 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 Chronic respiratory failure with hypoxia (HCC) Nodule of upper lobe of right lung Personal history of tobacco use, presenting hazards to health documented in this encounter [facility]* Diagnosis COPD exacerbation (HCC)- Primary Obstructive chronic bronchitis with exacerbation Primary hypertension Unspecified essential hypertension Screening for lipid disorders Hypothyroidism, unspecified type Gastroesophageal reflux disease without esophagitis Esophageal reflux Centrilobular emphysema (HCC) COPD exacerbation (HCC)- Primary Obstructive chronic bronchitis with exacerbation Mixed hyperlipidemia COPD with acute exacerbation (HCC) documented in this encounter [facility]* Diagnosis COPD exacerbation (HCC)- Primary Obstructive chronic bronchitis with exacerbation Primary hypertension Unspecified essential hypertension Screening for lipid disorders Hypothyroidism, unspecified type Gastroesophageal reflux disease without esophagitis Esophageal reflux Centrilobular emphysema (HCC) COPD exacerbation (HCC)- Primary Obstructive chronic bronchitis with exacerbation Mixed hyperlipidemia COPD exacerbation (HCC)- Primary Obstructive chronic bronchitis with exacerbation Encounter for screening mammogram for malignant neoplasm of breast Hypothyroidism, unspecified type Mixed hyperlipidemia Gastroesophageal reflux disease without esophagitis Esophageal reflux 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 Chronic respiratory failure with hypoxia (HCC) Primary hypertension Unspecified essential hypertension documented in this encounter [facility]* Diagnosis COPD exacerbation (HCC)- Primary Obstructive chronic bronchitis with exacerbation Primary hypertension Unspecified essential hypertension Screening for lipid disorders Hypothyroidism, unspecified type Gastroesophageal reflux disease without esophagitis Esophageal reflux Centrilobular emphysema (HCC) COPD exacerbation (HCC)- Primary Obstructive chronic bronchitis with exacerbation Mixed hyperlipidemia Encounter for screening mammogram for malignant neoplasm of breast documented in this encounter [facility]* Diagnosis COPD exacerbation (HCC)- Primary Obstructive chronic bronchitis with exacerbation Primary hypertension Unspecified essential hypertension Screening for lipid disorders Hypothyroidism, unspecified type Gastroesophageal reflux disease without esophagitis Esophageal reflux Centrilobular emphysema (HCC) COPD exacerbation (HCC)- Primary Obstructive chronic bronchitis with exacerbation Mixed hyperlipidemia COPD exacerbation (HCC)- Primary Obstructive chronic bronchitis with exacerbation Centrilobular emphysema (HCC) Wheezing 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 Chronic respiratory failure with hypoxia (HCC) Nodule of upper lobe of right lung Personal history of tobacco use, presenting hazards to health Oral thrush Candidiasis of mouth documented in this encounter [facility]* Diagnosis Closed fracture of one rib of right side with routine healing, subsequent encounter- Primary Lung nodule Other diseases of lung, not elsewhere classified documented in this encounter [facility]* Diagnosis Solitary pulmonary nodule- Primary Nicotine dependence, unspecified, in remission documented in this encounter [facility]* Diagnosis Solitary pulmonary nodule- Primary documented in this encounter [facility]* Diagnosis COPD with acute exacerbation (CMS/HCC) (HCC) documented in this encounter [facility]* Diagnosis COPD with acute exacerbation (CMS/HCC) (HCC)- Primary COPD with acute exacerbation (CMS/HCC) (HCC) documented in this encounter [facility]* Diagnosis COPD with acute exacerbation (CMS/HCC) (HCC)- Primary Essential hypertension Unspecified essential hypertension Hypothyroidism, unspecified type Gastroesophageal reflux disease without esophagitis Esophageal reflux documented in this encounter [facility]* Diagnosis Very severe chronic obstructive pulmonary disease (HCC) documented in this encounter [facility]* Diagnosis COPD exacerbation (HCC)- Primary Obstructive chronic bronchitis with exacerbation Primary hypertension Unspecified essential hypertension Screening for lipid disorders Hypothyroidism, unspecified type Gastroesophageal reflux disease without esophagitis Esophageal reflux Centrilobular emphysema (HCC) COPD exacerbation (HCC)- Primary Obstructive chronic bronchitis with exacerbation Mixed hyperlipidemia COPD exacerbation (HCC) Obstructive chronic bronchitis with exacerbation documented in this encounter [facility]* Diagnosis COPD exacerbation (HCC)- Primary Obstructive chronic bronchitis with exacerbation Primary hypertension Unspecified essential hypertension Screening for lipid disorders Hypothyroidism, unspecified type Gastroesophageal reflux disease without esophagitis Esophageal reflux Centrilobular emphysema (HCC) COPD exacerbation (HCC)- Primary Obstructive chronic bronchitis with exacerbation Mixed hyperlipidemia COPD exacerbation (HCC)- Primary Obstructive chronic bronchitis with exacerbation Primary hypertension Unspecified essential hypertension Hypothyroidism, unspecified type Mixed hyperlipidemia documented in this encounter [facility]* Diagnosis COPD exacerbation (HCC)- Primary Obstructive chronic bronchitis with exacerbation Primary hypertension Unspecified essential hypertension Screening for lipid disorders Hypothyroidism, unspecified type Gastroesophageal reflux disease without esophagitis Esophageal reflux Centrilobular emphysema (HCC) COPD exacerbation (HCC)- Primary Obstructive chronic bronchitis with exacerbation Mixed hyperlipidemia COPD exacerbation (HCC)- Primary Obstructive chronic bronchitis with exacerbation Primary hypertension Unspecified essential hypertension Hypothyroidism, unspecified type Mixed hyperlipidemia COPD with acute exacerbation (HCC)- Primary Centrilobular emphysema (HCC) Wheezing 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 Chronic respiratory failure with hypoxia (HCC) Lung nodule Other diseases of lung, not elsewhere classified Personal history of tobacco use, presenting hazards to health documented in this encounter [facility]* Diagnosis COPD exacerbation (HCC)- Primary Obstructive chronic bronchitis with exacerbation Primary hypertension Unspecified essential hypertension Screening for lipid disorders Hypothyroidism, unspecified type Gastroesophageal reflux disease without esophagitis Esophageal reflux Centrilobular emphysema (HCC) COPD exacerbation (HCC)- Primary Obstructive chronic bronchitis with exacerbation Mixed hyperlipidemia COPD exacerbation (HCC)- Primary Obstructive chronic bronchitis with exacerbation Primary hypertension Unspecified essential hypertension Hypothyroidism, unspecified type Mixed hyperlipidemia COPD with acute exacerbation (HCC)- Primary documented in this encounter [facility]* Diagnosis COPD exacerbation (HCC)- Primary Obstructive chronic bronchitis with exacerbation Primary hypertension Unspecified essential hypertension Screening for lipid disorders Hypothyroidism, unspecified type Gastroesophageal reflux disease without esophagitis Esophageal reflux Centrilobular emphysema (HCC) COPD exacerbation (HCC)- Primary Obstructive chronic bronchitis with exacerbation Mixed hyperlipidemia COPD exacerbation (HCC)- Primary Obstructive chronic bronchitis with exacerbation Primary hypertension Unspecified essential hypertension Hypothyroidism, unspecified type Mixed hyperlipidemia COPD with acute exacerbation (HCC)- Primary documented in this encounter [facility]* Diagnosis COPD exacerbation (HCC)- Primary Obstructive chronic bronchitis with exacerbation Primary hypertension Unspecified essential hypertension Screening for lipid disorders Hypothyroidism, unspecified type Gastroesophageal reflux disease without esophagitis Esophageal reflux Centrilobular emphysema (HCC) COPD exacerbation (HCC)- Primary Obstructive chronic bronchitis with exacerbation Mixed hyperlipidemia COPD exacerbation (HCC)- Primary Obstructive chronic bronchitis with exacerbation Primary hypertension Unspecified essential hypertension Hypothyroidism, unspecified type Mixed hyperlipidemia COPD with acute exacerbation (HCC)- Primary documented in this encounter [facility]* Diagnosis COPD exacerbation (HCC)- Primary Obstructive chronic bronchitis with exacerbation Primary hypertension Unspecified essential hypertension Screening for lipid disorders Hypothyroidism, unspecified type Gastroesophageal reflux disease without esophagitis Esophageal reflux Centrilobular emphysema (HCC) COPD exacerbation (HCC)- Primary Obstructive chronic bronchitis with exacerbation Mixed hyperlipidemia COPD exacerbation (HCC)- Primary Obstructive chronic bronchitis with exacerbation Primary hypertension Unspecified essential hypertension Hypothyroidism, unspecified type Mixed hyperlipidemia COPD with acute exacerbation (HCC) Centrilobular emphysema (HCC) documented in this encounter [facility]* Diagnosis COPD exacerbation (HCC)- Primary Obstructive chronic bronchitis with exacerbation Primary hypertension Unspecified essential hypertension Screening for lipid disorders Hypothyroidism, unspecified type Gastroesophageal reflux disease without esophagitis Esophageal reflux Centrilobular emphysema (HCC) COPD exacerbation (HCC)- Primary Obstructive chronic bronchitis with exacerbation Mixed hyperlipidemia COPD exacerbation (HCC)- Primary Obstructive chronic bronchitis with exacerbation Primary hypertension Unspecified essential hypertension Hypothyroidism, unspecified type Mixed hyperlipidemia COPD with acute exacerbation (HCC)- Primary Eosinophilic asthma Pulmonary eosinophilia documented in this encounter [facility]* Diagnosis COPD exacerbation (HCC)- Primary Obstructive chronic bronchitis with exacerbation Primary hypertension Unspecified essential hypertension Screening for lipid disorders Hypothyroidism, unspecified type Gastroesophageal reflux disease without esophagitis Esophageal reflux Centrilobular emphysema (HCC) COPD exacerbation (HCC)- Primary Obstructive chronic bronchitis with exacerbation Mixed hyperlipidemia COPD exacerbation (HCC)- Primary Obstructive chronic bronchitis with exacerbation Primary hypertension Unspecified essential hypertension Hypothyroidism, unspecified type Mixed hyperlipidemia COPD with acute exacerbation (HCC)- Primary Eosinophilic asthma Pulmonary eosinophilia documented in this encounter [facility]* Diagnosis COPD exacerbation (HCC)- Primary Obstructive chronic bronchitis with exacerbation Primary hypertension Unspecified essential hypertension Screening for lipid disorders Hypothyroidism, unspecified type Gastroesophageal reflux disease without esophagitis Esophageal reflux Centrilobular emphysema (HCC) COPD exacerbation (HCC)- Primary Obstructive chronic bronchitis with exacerbation Mixed hyperlipidemia COPD exacerbation (HCC)- Primary Obstructive chronic bronchitis with exacerbation Primary hypertension Unspecified essential hypertension Hypothyroidism, unspecified type Mixed hyperlipidemia COPD with acute exacerbation (HCC)- Primary Eosinophilic asthma Pulmonary eosinophilia documented in this encounter [facility]* Diagnosis COPD exacerbation (HCC)- Primary Obstructive chronic bronchitis with exacerbation Primary hypertension Unspecified essential hypertension Screening for lipid disorders Hypothyroidism, unspecified type Gastroesophageal reflux disease without esophagitis Esophageal reflux Centrilobular emphysema (HCC) COPD exacerbation (HCC)- Primary Obstructive chronic bronchitis with exacerbation Mixed hyperlipidemia COPD exacerbation (HCC)- Primary Obstructive chronic bronchitis with exacerbation Primary hypertension Unspecified essential hypertension Hypothyroidism, unspecified type Mixed hyperlipidemia Thrush, oral- Primary documented in this encounter [facility]* Diagnosis COPD exacerbation (HCC)- Primary Obstructive chronic bronchitis with exacerbation Primary hypertension Unspecified essential hypertension Screening for lipid disorders Hypothyroidism, unspecified type Gastroesophageal reflux disease without esophagitis Esophageal reflux Centrilobular emphysema (HCC) COPD exacerbation (HCC)- Primary Obstructive chronic bronchitis with exacerbation Mixed hyperlipidemia COPD exacerbation (HCC)- Primary Obstructive chronic bronchitis with exacerbation Primary hypertension Unspecified essential hypertension Hypothyroidism, unspecified type Mixed hyperlipidemia Primary hypertension Unspecified essential hypertension documented in this encounter [facility]* Diagnosis COPD exacerbation (HCC)- Primary Obstructive chronic bronchitis with exacerbation Primary hypertension Unspecified essential hypertension Screening for lipid disorders Hypothyroidism, unspecified type Gastroesophageal reflux disease without esophagitis Esophageal reflux Centrilobular emphysema (HCC) COPD exacerbation (HCC)- Primary Obstructive chronic bronchitis with exacerbation COPD exacerbation (HCC)- Primary Obstructive chronic bronchitis with exacerbation Mixed hyperlipidemia COPD exacerbation (HCC)- Primary Obstructive chronic bronchitis with exacerbation Primary hypertension Unspecified essential hypertension Hypothyroidism, unspecified type Mixed hyperlipidemia Acute non-recurrent frontal sinusitis- Primary COPD with acute exacerbation (HCC) documented in this encounter [facility]* Diagnosis COPD exacerbation (HCC)- Primary Obstructive chronic bronchitis with exacerbation Primary hypertension Unspecified essential hypertension Screening for lipid disorders Hypothyroidism, unspecified type Gastroesophageal reflux disease without esophagitis Esophageal reflux Centrilobular emphysema (HCC) COPD exacerbation (HCC)- Primary Obstructive chronic bronchitis with exacerbation COPD exacerbation (HCC)- Primary Obstructive chronic bronchitis with exacerbation Mixed hyperlipidemia COPD exacerbation (HCC)- Primary Obstructive chronic bronchitis with exacerbation Primary hypertension Unspecified essential hypertension Hypothyroidism, unspecified type Mixed hyperlipidemia Acute non-recurrent frontal sinusitis- Primary COPD with acute exacerbation (HCC) Acute non-recurrent frontal sinusitis- Primary documented in this encounter [facility]* Diagnosis COPD exacerbation (HCC)- Primary Obstructive chronic bronchitis with exacerbation Primary hypertension Unspecified essential hypertension Screening for lipid disorders Hypothyroidism, unspecified type Gastroesophageal reflux disease without esophagitis Esophageal reflux Centrilobular emphysema (HCC) COPD exacerbation (HCC)- Primary Obstructive chronic bronchitis with exacerbation COPD exacerbation (HCC)- Primary Obstructive chronic bronchitis with exacerbation Mixed hyperlipidemia COPD exacerbation (HCC)- Primary Obstructive chronic bronchitis with exacerbation Primary hypertension Unspecified essential hypertension Hypothyroidism, unspecified type Mixed hyperlipidemia Acute non-recurrent frontal sinusitis- Primary COPD with acute exacerbation (HCC) Coronary artery calcification seen on CT scan- Primary documented in this encounter [facility]* Diagnosis COPD exacerbation (HCC)- Primary Obstructive chronic bronchitis with exacerbation Primary hypertension Unspecified essential hypertension Screening for lipid disorders Hypothyroidism, unspecified type Gastroesophageal reflux disease without esophagitis Esophageal reflux Centrilobular emphysema (HCC) COPD exacerbation (HCC)- Primary Obstructive chronic bronchitis with exacerbation COPD exacerbation (HCC)- Primary Obstructive chronic bronchitis with exacerbation Mixed hyperlipidemia COPD exacerbation (HCC)- Primary Obstructive chronic bronchitis with exacerbation Primary hypertension Unspecified essential hypertension Hypothyroidism, unspecified type Mixed hyperlipidemia Acute non-recurrent frontal sinusitis- Primary COPD with acute exacerbation (HCC) COPD exacerbation (HCC)- Primary Obstructive chronic bronchitis with exacerbation documented in this encounter [facility]* Diagnosis COPD exacerbation (HCC)- Primary Obstructive chronic bronchitis with exacerbation Primary hypertension Unspecified essential hypertension Screening for lipid disorders Hypothyroidism, unspecified type Gastroesophageal reflux disease without esophagitis Esophageal reflux Centrilobular emphysema (HCC) COPD exacerbation (HCC)- Primary Obstructive chronic bronchitis with exacerbation COPD exacerbation (HCC)- Primary Obstructive chronic bronchitis with exacerbation Mixed hyperlipidemia COPD exacerbation (HCC)- Primary Obstructive chronic bronchitis with exacerbation Primary hypertension Unspecified essential hypertension Hypothyroidism, unspecified type Mixed hyperlipidemia Vocal cord dysfunction- Primary Other diseases of vocal cords Acute non-recurrent frontal sinusitis- Primary COPD with acute exacerbation (HCC) documented in this encounter [facility]* Diagnosis COPD exacerbation (HCC)- Primary Obstructive chronic bronchitis with exacerbation Primary hypertension Unspecified essential hypertension Screening for lipid disorders Hypothyroidism, unspecified type Gastroesophageal reflux disease without esophagitis Esophageal reflux Centrilobular emphysema (HCC) COPD exacerbation (HCC)- Primary Obstructive chronic bronchitis with exacerbation COPD exacerbation (HCC)- Primary Obstructive chronic bronchitis with exacerbation Mixed hyperlipidemia COPD exacerbation (HCC)- Primary Obstructive chronic bronchitis with exacerbation Primary hypertension Unspecified essential hypertension Hypothyroidism, unspecified type Mixed hyperlipidemia Acute non-recurrent frontal sinusitis- Primary COPD with acute exacerbation (HCC) Chronic frontal sinusitis- Primary documented in this encounter [facility]* Diagnosis COPD exacerbation (HCC)- Primary Obstructive chronic bronchitis with exacerbation Primary hypertension Unspecified essential hypertension Screening for lipid disorders Hypothyroidism, unspecified type Gastroesophageal reflux disease without esophagitis Esophageal reflux Centrilobular emphysema (HCC) COPD exacerbation (HCC)- Primary Obstructive chronic bronchitis with exacerbation COPD exacerbation (HCC)- Primary Obstructive chronic bronchitis with exacerbation Mixed hyperlipidemia COPD exacerbation (HCC)- Primary Obstructive chronic bronchitis with exacerbation Primary hypertension Unspecified essential hypertension Hypothyroidism, unspecified type Mixed hyperlipidemia Acute non-recurrent frontal sinusitis- Primary COPD with acute exacerbation (HCC) Primary hypertension Unspecified essential hypertension documented in this encounter [facility]* Diagnosis COPD exacerbation (HCC)- Primary Obstructive chronic bronchitis with exacerbation Primary hypertension Unspecified essential hypertension Screening for lipid disorders Hypothyroidism, unspecified type Gastroesophageal reflux disease without esophagitis Esophageal reflux Centrilobular emphysema (HCC) COPD exacerbation (HCC)- Primary Obstructive chronic bronchitis with exacerbation COPD exacerbation (HCC)- Primary Obstructive chronic bronchitis with exacerbation Mixed hyperlipidemia COPD exacerbation (HCC)- Primary Obstructive chronic bronchitis with exacerbation Primary hypertension Unspecified essential hypertension Hypothyroidism, unspecified type Mixed hyperlipidemia Acute non-recurrent frontal sinusitis- Primary COPD with acute exacerbation (HCC) Encounter for subsequent annual wellness visit (AWV) in Medicare patient- Primary Acquired hypothyroidism Unspecified hypothyroidism 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) Severe persistent asthma, uncomplicated Primary hypertension Unspecified essential hypertension 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 Mixed hyperlipidemia Routine general medical examination at health care facility Routine general medical examination at a health care facility documented in this encounter [facility]* Diagnosis COPD exacerbation (HCC)- Primary Obstructive chronic bronchitis with exacerbation Primary hypertension Unspecified essential hypertension Screening for lipid disorders Hypothyroidism, unspecified type Gastroesophageal reflux disease without esophagitis Esophageal reflux Centrilobular emphysema (HCC) COPD exacerbation (HCC)- Primary Obstructive chronic bronchitis with exacerbation COPD exacerbation (HCC)- Primary Obstructive chronic bronchitis with exacerbation Mixed hyperlipidemia COPD exacerbation (HCC)- Primary Obstructive chronic bronchitis with exacerbation Primary hypertension Unspecified essential hypertension Hypothyroidism, unspecified type Mixed hyperlipidemia Acute non-recurrent frontal sinusitis- Primary COPD with acute exacerbation (HCC) Very severe chronic obstructive pulmonary disease (HCC)- Primary 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 COPD with acute exacerbation (HCC) Lung nodule Other diseases of lung, not elsewhere classified Chronic respiratory failure with hypoxia (HCC) documented in [facility]* Diagnosis COPD exacerbation (HCC)- Primary Obstructive chronic bronchitis with exacerbation Primary hypertension Unspecified essential hypertension Screening for lipid disorders Hypothyroidism, unspecified type Gastroesophageal reflux disease without esophagitis Esophageal reflux Centrilobular emphysema (HCC) COPD exacerbation (HCC)- Primary Obstructive chronic bronchitis with exacerbation COPD exacerbation (HCC)- Primary Obstructive chronic bronchitis with exacerbation Mixed hyperlipidemia COPD exacerbation (HCC)- Primary Obstructive chronic bronchitis with exacerbation Primary hypertension Unspecified essential hypertension Hypothyroidism, unspecified type Mixed hyperlipidemia Acute non-recurrent frontal sinusitis- Primary COPD with acute exacerbation (HCC) Chronic respiratory failure with hypoxia (HCC)- Primary 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 COPD with acute exacerbation (HCC) Centrilobular emphysema (HCC) Lung nodule Other diseases of lung, not elsewhere classified Personal history of tobacco use, presenting hazards to health Very severe chronic obstructive pulmonary disease (HCC) Wheezing COPD exacerbation (HCC) Obstructive chronic bronchitis with exacerbation documented in this encounter [facility]* Diagnosis COPD exacerbation (HCC)- Primary Obstructive chronic bronchitis with exacerbation Primary hypertension Unspecified essential hypertension Screening for lipid disorders Hypothyroidism, unspecified type Gastroesophageal reflux disease without esophagitis Esophageal reflux Centrilobular emphysema (HCC) COPD exacerbation (HCC)- Primary Obstructive chronic bronchitis with exacerbation COPD exacerbation (HCC)- Primary Obstructive chronic bronchitis with exacerbation Mixed hyperlipidemia COPD exacerbation (HCC)- Primary Obstructive chronic bronchitis with exacerbation Primary hypertension Unspecified essential hypertension Hypothyroidism, unspecified type Mixed hyperlipidemia Acute non-recurrent frontal sinusitis- Primary COPD with acute exacerbation (HCC) Very severe chronic obstructive pulmonary disease (HCC) documented in this encounter [facility]* Diagnosis COPD exacerbation (HCC)- Primary Obstructive chronic bronchitis with exacerbation Primary hypertension Unspecified essential hypertension Screening for lipid disorders Hypothyroidism, unspecified type Gastroesophageal reflux disease without esophagitis Esophageal reflux Centrilobular emphysema (HCC) COPD exacerbation (HCC)- Primary Obstructive chronic bronchitis with exacerbation COPD exacerbation (HCC)- Primary Obstructive chronic bronchitis with exacerbation Mixed hyperlipidemia COPD exacerbation (HCC)- Primary Obstructive chronic bronchitis with exacerbation Primary hypertension Unspecified essential hypertension Hypothyroidism, unspecified type Mixed hyperlipidemia Acute non-recurrent frontal sinusitis- Primary COPD with acute exacerbation (HCC) Very severe chronic obstructive pulmonary disease (HCC)- Primary documented in this encounter [facility]* Diagnosis COPD exacerbation (HCC)- Primary Obstructive chronic bronchitis with exacerbation Primary hypertension Unspecified essential hypertension Screening for lipid disorders Hypothyroidism, unspecified type Gastroesophageal reflux disease without esophagitis Esophageal reflux Centrilobular emphysema (HCC) COPD exacerbation (HCC)- Primary Obstructive chronic bronchitis with exacerbation COPD exacerbation (HCC)- Primary Obstructive chronic bronchitis with exacerbation Mixed hyperlipidemia COPD exacerbation (HCC)- Primary Obstructive chronic bronchitis with exacerbation Primary hypertension Unspecified essential hypertension Hypothyroidism, unspecified type Mixed hyperlipidemia Acute non-recurrent frontal sinusitis- Primary COPD with acute exacerbation (HCC) Chronic respiratory failure with hypoxia (HCC)- Primary 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 COPD with acute exacerbation (HCC) Centrilobular emphysema (HCC) Lung nodule Other diseases of lung, not elsewhere classified Personal history of tobacco use, presenting hazards to health Very severe chronic obstructive pulmonary disease (HCC) Wheezing COPD exacerbation (HCC) Obstructive chronic bronchitis with exacerbation documented in this encounter [facility]* Diagnosis COPD exacerbation (HCC)- Primary Obstructive chronic bronchitis with exacerbation Primary hypertension Unspecified essential hypertension Screening for lipid disorders Hypothyroidism, unspecified type Gastroesophageal reflux disease without esophagitis Esophageal reflux Centrilobular emphysema (HCC) COPD exacerbation (HCC)- Primary Obstructive chronic bronchitis with exacerbation COPD exacerbation (HCC)- Primary Obstructive chronic bronchitis with exacerbation Mixed hyperlipidemia COPD exacerbation (HCC)- Primary Obstructive chronic bronchitis with exacerbation Primary hypertension Unspecified essential hypertension Hypothyroidism, unspecified type Mixed hyperlipidemia Acute non-recurrent frontal sinusitis- Primary COPD with acute exacerbation (HCC) Thrush of mouth and esophagus (HCC) Candidiasis of the esophagus documented in this encounter [facility]* Diagnosis COPD exacerbation (HCC)- Primary Obstructive chronic bronchitis with exacerbation Primary hypertension Unspecified essential hypertension Screening for lipid disorders Hypothyroidism, unspecified type Gastroesophageal reflux disease without esophagitis Esophageal reflux Centrilobular emphysema (HCC) COPD exacerbation (HCC)- Primary Obstructive chronic bronchitis with exacerbation COPD exacerbation (HCC)- Primary Obstructive chronic bronchitis with exacerbation Mixed hyperlipidemia COPD exacerbation (HCC)- Primary Obstructive chronic bronchitis with exacerbation Primary hypertension Unspecified essential hypertension Hypothyroidism, unspecified type Mixed hyperlipidemia Acute non-recurrent frontal sinusitis- Primary COPD with acute exacerbation (HCC) Wheezing- Primary Centrilobular emphysema (HCC) [facility] Diagnosis COPD exacerbation (HCC)- Primary Obstructive chronic bronchitis with exacerbation Primary hypertension Unspecified essential hypertension Screening for lipid disorders Hypothyroidism, unspecified type Gastroesophageal reflux disease without esophagitis Esophageal reflux Centrilobular emphysema (HCC) COPD exacerbation (HCC)- Primary Obstructive chronic bronchitis with exacerbation COPD exacerbation (HCC)- Primary Obstructive chronic bronchitis with exacerbation Mixed hyperlipidemia COPD exacerbation (HCC)- Primary Obstructive chronic bronchitis with exacerbation Primary hypertension Unspecified essential hypertension Hypothyroidism, unspecified type Mixed hyperlipidemia Acute non-recurrent frontal sinusitis- Primary COPD with acute exacerbation (HCC) COPD with acute exacerbation (HCC) Centrilobular emphysema (HCC) [facility]* Diagnosis COPD exacerbation (HCC)- Primary Obstructive chronic bronchitis with exacerbation Primary hypertension Unspecified essential hypertension Screening for lipid disorders Hypothyroidism, unspecified type Gastroesophageal reflux disease without esophagitis Esophageal reflux Centrilobular emphysema (HCC) COPD exacerbation (HCC)- Primary Obstructive chronic bronchitis with exacerbation COPD exacerbation (HCC)- Primary Obstructive chronic bronchitis with exacerbation Mixed hyperlipidemia COPD exacerbation (HCC)- Primary Obstructive chronic bronchitis with exacerbation Primary hypertension Unspecified essential hypertension Hypothyroidism, unspecified type Mixed hyperlipidemia Acute non-recurrent frontal sinusitis- Primary COPD with acute exacerbation (HCC) COPD with acute exacerbation (HCC) Centrilobular emphysema (HCC) [facility]* Diagnosis COPD exacerbation (HCC)- Primary Obstructive chronic bronchitis with exacerbation Primary hypertension Unspecified essential hypertension Screening for lipid disorders Hypothyroidism, unspecified type Gastroesophageal reflux disease without esophagitis Esophageal reflux Centrilobular emphysema (HCC) COPD exacerbation (HCC)- Primary Obstructive chronic bronchitis with exacerbation COPD exacerbation (HCC)- Primary Obstructive chronic bronchitis with exacerbation Mixed hyperlipidemia COPD exacerbation (HCC)- Primary Obstructive chronic bronchitis with exacerbation Primary hypertension Unspecified essential hypertension Hypothyroidism, unspecified type Mixed hyperlipidemia Acute non-recurrent frontal sinusitis- Primary COPD with acute exacerbation (HCC) Centrilobular emphysema (HCC) [facility]* Diagnosis COPD exacerbation (HCC)- Primary Obstructive chronic bronchitis with exacerbation Primary hypertension Unspecified essential hypertension Screening for lipid disorders Hypothyroidism, unspecified type Gastroesophageal reflux disease without esophagitis Esophageal reflux Centrilobular emphysema (HCC) COPD exacerbation (HCC)- Primary Obstructive chronic bronchitis with exacerbation COPD exacerbation (HCC)- Primary Obstructive chronic bronchitis with exacerbation Mixed hyperlipidemia COPD exacerbation (HCC)- Primary Obstructive chronic bronchitis with exacerbation Primary hypertension Unspecified essential hypertension Hypothyroidism, unspecified type Mixed hyperlipidemia Acute non-recurrent frontal sinusitis- Primary COPD with acute exacerbation (HCC) COPD with acute exacerbation (HCC) [facility]* Diagnosis COPD exacerbation (HCC)- Primary Obstructive chronic bronchitis with exacerbation Primary hypertension Unspecified essential hypertension Screening for lipid disorders Hypothyroidism, unspecified type Gastroesophageal reflux disease without esophagitis Esophageal reflux Centrilobular emphysema (HCC) COPD exacerbation (HCC)- Primary Obstructive chronic bronchitis with exacerbation COPD exacerbation (HCC)- Primary Obstructive chronic bronchitis with exacerbation Mixed hyperlipidemia COPD exacerbation (HCC)- Primary Obstructive chronic bronchitis with exacerbation Primary hypertension Unspecified essential hypertension Hypothyroidism, unspecified type Mixed hyperlipidemia Acute non-recurrent frontal sinusitis- Primary COPD with acute exacerbation (HCC) COPD with acute exacerbation (HCC)- Primary Centrilobular emphysema (HCC) 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 Chronic respiratory failure with hypoxia (HCC) Lung nodule Other diseases of lung, not elsewhere classified Bronchiectasis without acute exacerbation (HCC) Bronchiectasis without acute exacerbation Personal history of tobacco use, presenting hazards to health documented [facility]* Diagnosis COPD exacerbation (HCC)- Primary Obstructive chronic bronchitis with exacerbation Primary hypertension Unspecified essential hypertension Screening for lipid disorders Hypothyroidism, unspecified type Gastroesophageal reflux disease without esophagitis Esophageal reflux Centrilobular emphysema (HCC) COPD exacerbation (HCC)- Primary Obstructive chronic bronchitis with exacerbation COPD exacerbation (HCC)- Primary Obstructive chronic bronchitis with exacerbation Mixed hyperlipidemia COPD exacerbation (HCC)- Primary Obstructive chronic bronchitis with exacerbation Primary hypertension Unspecified essential hypertension Hypothyroidism, unspecified type Mixed hyperlipidemia Acute non-recurrent frontal sinusitis- Primary COPD with acute exacerbation (HCC) Chronic respiratory failure with hypoxia (HCC)- Primary COPD with acute exacerbation (HCC) Centrilobular emphysema (HCC) 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) SOB (shortness of breath) Shortness of breath Very severe chronic obstructive pulmonary disease (HCC) Chronic respiratory failure with hypoxia (HCC) Bronchiectasis without acute exacerbation (HCC) Bronchiectasis without acute exacerbation documented in this encounter [facility]* Diagnosis COPD exacerbation (HCC)- Primary Obstructive chronic bronchitis with exacerbation Primary hypertension Unspecified essential hypertension Screening for lipid disorders Hypothyroidism, unspecified type Gastroesophageal reflux disease without esophagitis Esophageal reflux Centrilobular emphysema (HCC) COPD exacerbation (HCC)- Primary Obstructive chronic bronchitis with exacerbation COPD exacerbation (HCC)- Primary Obstructive chronic bronchitis with exacerbation Mixed hyperlipidemia COPD exacerbation (HCC)- Primary Obstructive chronic bronchitis with exacerbation Primary hypertension Unspecified essential hypertension Hypothyroidism, unspecified type Mixed hyperlipidemia Acute non-recurrent frontal sinusitis- Primary COPD with acute exacerbation (HCC) SOB (shortness of breath)- Primary Shortness of breath Very severe chronic obstructive pulmonary disease (HCC) Chronic respiratory failure with hypoxia (HCC) Bronchiectasis without acute exacerbation (HCC) Bronchiectasis without acute exacerbation Very severe chronic obstructive pulmonary disease (HCC) Chronic respiratory failure with hypoxia (HCC) SOB (shortness of breath) Shortness of breath Bronchiectasis without acute exacerbation (HCC) Bronchiectasis without acute exacerbation SOB (shortness of breath) Shortness of breath Very severe chronic obstructive pulmonary disease (HCC) Chronic respiratory failure with hypoxia (HCC) Bronchiectasis without acute exacerbation (HCC) Bronchiectasis without acute exacerbation documented in this encounter [facility]* Diagnosis COPD exacerbation (HCC)- Primary Obstructive chronic bronchitis with exacerbation Primary hypertension Unspecified essential hypertension Screening for lipid disorders Hypothyroidism, unspecified type Gastroesophageal reflux disease without esophagitis Esophageal reflux Centrilobular emphysema (HCC) COPD exacerbation (HCC)- Primary Obstructive chronic bronchitis with exacerbation COPD exacerbation (HCC)- Primary Obstructive chronic bronchitis with exacerbation Mixed hyperlipidemia COPD exacerbation (HCC)- Primary Obstructive chronic bronchitis with exacerbation Primary hypertension Unspecified essential hypertension Hypothyroidism, unspecified type Mixed hyperlipidemia Acute non-recurrent frontal sinusitis- Primary COPD with acute exacerbation (HCC) SOB (shortness of breath) Shortness of breath Very severe chronic obstructive pulmonary disease (HCC) Chronic respiratory failure with hypoxia (HCC) Bronchiectasis without acute exacerbation (HCC) Bronchiectasis without acute exacerbation [facility] Diagnosis COPD exacerbation (HCC)- Primary Obstructive chronic bronchitis with exacerbation Primary hypertension Unspecified essential hypertension Screening for lipid disorders Hypothyroidism, unspecified type Gastroesophageal reflux disease without esophagitis Esophageal reflux Centrilobular emphysema (HCC) COPD exacerbation (HCC)- Primary Obstructive chronic bronchitis with exacerbation COPD exacerbation (HCC)- Primary Obstructive chronic bronchitis with exacerbation Mixed hyperlipidemia COPD exacerbation (HCC)- Primary Obstructive chronic bronchitis with exacerbation Primary hypertension Unspecified essential hypertension Hypothyroidism, unspecified type Mixed hyperlipidemia Acute non-recurrent frontal sinusitis- Primary COPD with acute exacerbation (HCC) Excessive daytime sleepiness- Primary [facility] Attachments The following attachments cannot be sent through Care Everywhere. * COPD Exacerbation Plan (Mauritian) * Pneumonia (Mauritian) documented in this [facility] Work Phone: Hospital Discharge instructions Additional Instructions Ice to your back and forearm to decrease pain and swelling. Keep the right forearm clean and antibiotic ointment daily. Tylenol and Motrin for pain. Follow-up if not improving. Your x-rays did not show any obvious broken bones as we discussed you can have a cracked rib that does not show up on the x-ray. Use a pillow to support your injured rib area. [facility] Work Phone[facility] Additional Instructions No signs of pneumonia. Exacerbation of your COPD. Continue prednisone for 1 week. 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 Make sure they know that you have been on antibiotics and steroids recently. They may have to extend the steroid prescription or taper the dose.[facility] Work Phone: Hospital Discharge instructions* Attachments The following attachments cannot be sent through Care Everywhere. * Bronchoscopy, Diagnostic (Mauritian) [facility] Consultation (Routine) - Authorized Specialty Diagnoses / Procedures Referred By Fabien islas Referred To Contact Pulmonology Diagnoses Very severe chronic obstructive pulmonary disease (HCC) Procedures Complete PFT pre and post bronchodilator with FENO Marjan Wall, GLASS SETTER - WATCH AND CLOCK MAKER AND REPAIRER [address] [place] [address] Referral ID Status Reason Start Date Expiration Date V isits Requested Visits Authorized [id number] Authorized 04/17/2023 04/11/2024 1 1 * Consultation (Routine) - Authorized Specialty Diagnoses / Procedures Referred By Contac t Referred To Contact Pulmonology Diagnoses Very severe chronic obstructive pulmonary disease (HCC) Procedures Complete PFT pre and post bronchodilator Marjan Wall APRN - CNP [address] [place] [address] Referral ID Status Reason Start Date Expiration Date V isits Requested Visits Authorized [id number] Authorized 04/17/2023 04/11/2024 1 1 * Imaging (Routine) - Pending Review Specialty Diagnoses / Procedures Referred By Contac t Referred To Contact Radiology Diagnoses Cigarette smoker Procedures CT lung screening low dose Marjan Wall APRN [facility] [address] [place] [address] Referral ID Status Reason Start Date Expiration Date V isits Requested Visits Authorized [id number] Pending Review 04/17/2023 04/16/2024 1 1 Susy FaganRelorena for referral (narrative)* Consultation (Routine) - Pending Review Specialty Diagnoses / Procedures Referred By Contac t Referred To Contact Urology / Urogynecology Diagnoses Bladder prolapse, female, acquired Vaginal discharge Incontinence in female Procedures NE OFFICE/OUTPATIENT [facility] HIGH MDM 60 MINUTES Inga Washington MD [address] [place] [address] [address] [place] [address] [facility] Urogyn [address] [place] [address] Referral ID Status Reason Start Date Expiration Date Visits Requested Visits Authorized [id number] Pending Review Specialty Services Required 04/26/2023 04/25/2024 1 1 [facility] Consultation (Routine) - Closed Specialty Diagnoses / Procedures Referred By Contac t Referred To Contact Pulmonology Diagnoses Very severe chronic obstructive pulmonary disease (HCC) Procedures Complete PFT pre and post bronchodilator with FENO Marjan Wall APRN - WATCH AND CLOCK MAKER AND REPAIRER [address] [place] [address] Referral ID Status Reason Start Date Expiration Date Visits Re quested Visits Authorized [id number] Closed 04/17/2023 04/11/2024 1 1 [facility] Consultation (Routine) - Pending Review Specialty Diagnoses / Procedures Referred By Contac t Referred To Contact Allergy Diagnoses Immunoglobulin deficiency (HCC) Very severe chronic obstructive pulmonary disease (HCC) Procedures NE OFFICE/OUTPATIENT [facility] 60 MINUTES Prosper Roman DO [address] [place] [phone] Alan Davis [address] [place] [phone] Referral ID Status Reason Start Date Expiration Date Visits Requested Visits Authorized [id number] Pending Review Specialty Services Required 09/13/2023 09/12/2024 1 1 [facility]narrative)No reason for referral information availableElliott Medical Services Work Phone: Reason for visit Narrative* Consultation (Routine) - Closed Specialty Diagnoses / Procedures Referred By Contac t Referred To Contact Pulmonology Diagnoses Very severe chronic obstructive pulmonary disease (HCC) Procedures Complete PFT pre and post bronchodilator with FENO Marjan Wall APRN - WATCH AND CLOCK MAKER AND REPAIRER [address] [place] [address] Referral ID Status Reason Start Date Expiration Date Visits Re quested Visits Authorized [id number] Closed 04/17/2023 04/11/2024 1 1 [facility] for visit Narrative* Imaging (Routine) - Closed Specialty Diagnoses / Procedures Referred By Contac t Referred To Contact Radiology Diagnoses COPD with acute exacerbation (HCC) Centrilobular emphysema (HCC) Procedures CT chest wo IV contrast Joyce Brown APRN - WATCH AND CLOCK MAKER AND REPAIRER [address] [place] [id number] Phone: tel: fax: Referral ID Status Reason Start Date Expiration Date Visits Re quested Visits Authorized [id number] Closed 05/28/2024 08/25/2024 1 1 [facility] N[facility]* Auth/Cert (Routine) Specialty Diagnoses / Procedures Referred By Contac t Referred To Contact Diagnoses SOB (shortness of breath) Very severe chronic obstructive pulmonary disease (HCC) Chronic respiratory failure with hypoxia (HCC) Bronchiectasis without acute exacerbation (HCC) Procedures NE BRNCHSC W/BRNCL ALVEOLAR LAVAGE NE BRNCHSC INCL FLUOR GDNCE DX W/CELL WASHG SPX INSPECTION BRONCHOSCOPY WITH BRONCHOALVEOLAR LAVAGE. POSSIBLE ENDOBRONCHIAL BIOPSIES, NEEDLE ASPIRATION, AND BRUSHINGS. INSPECTION BRONCHOSCOPY WITH BRONCHOALVEOLAR LAVAGE. POSSIBLE ENDOBRONCHIAL BIOPSIES, NEEDLE ASPIRATION, AND BRUSHINGS. 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 Expl 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 Advance Directives and Living Will Power of Veneer Sawyer Latest Code Status on File Code Status Date Activated Date Inactivated Comments Full Code 11/05/2018 11:23 AM 11/06/2018 2:42 AM Documents on File Type Date Recorded Patient Muffle Worker Expl anation ACP-Advance Directive ACP-Power of Veneer Sawyer Documents on File Type Date Recorded Patient Muffle Worker Expl anation ACP-Advance Directive ACP-Power of Veneer Sawyer Advance Directive Response Recorded Date/ Time Advance Directives No July 22 7:07pm Living Will No July 20, 2021 8:08am Power of Veneer Sawyer No July 20 8:08am Advance Directive Response Recorded Date/ Time Advance Directives No July 22 7:07pm Living Will No July 27, 2021 8:44pm Power of Veneer Sawyer No July 27 8:44pm Advance Directive Response Recorded Date/ Time Advance Directives No July 22 7:07pm Living Will No October 28, 2021 2 :36pm Power of Veneer Sawyer No October 28, 2021 2:36pm Advance Directive Response Recorded Date/ Time Advance Directives No July 22 7:07pm Living Will No February 14 5:21pm Power of Veneer Sawyer No February 14, 2022 5:21pm Advance Directive Response Recorded Date/ Time Name of Medical Power of Veneer Sawyer MYRON- March 28, 2022 9:56am Advance Directives No July 22 6:07pm Living Will No March 28 9:56am Power of Veneer Sawyer Yes March 28, 2022 9:56am Advance Directive Response Recorded Date/ Time Name of Medical Power of Veneer Sawyer MYRON- March 28, 2022 9:56am Name of Medical Power of Veneer Sawyer starr guerrier April 23, 2022 12:35am Advance Directives No July 22 6:07pm Living Will No April 23 12:35am Power of Veneer Sawyer Yes April 23 023 12:35am Advance Directive Response Recorded Date/ Time Name of Medical Power of Veneer Sawyer MYRON- March 28, 2022 9:56am Name of Medical Power of Veneer Sawyer starr guerrier April 23, 2022 12:35am Name of Medical Power of Veneer Sawyer STARR BRIGGS June 20, 2022 8:30am Advance Directives No July 22 6:07pm Living Will Yes June 20 023 8:30am Power of Veneer Sawyer Yes February 28th, 2023 8:30am Advance Directive Response Recorded Date/ Time Name of Medical Power of Veneer Sawyer starr guerrier April 23, 2022 1:35am Name of Medical Power of Veneer Sawyer STARR BRIGGS June 20, 2022 9:30am Advance Directives No July 22 7:07pm Living Will No August 16, 2022 10:15pm Power of Veneer Sawyer No August 16 10:15pm Advance Directive Response Recorded Date/ Time Advance Directives No July 22 7:07pm Living Will No December 22, 2 023 9:25pm Power of Veneer Sawyer No December 22, 2022 9:25pm Advance Directive Response Recorded Date/ Time Advance Directives No July 22 6:07pm Living Will No April 12, 2 023 1:01pm Power of Veneer Sawyer No April 12, 2023 1:01pm Advance Directive Response Recorded Date/ Time Advance Directives No July 22 6:07pm Living Will No May 13 7:27am Power of Veneer Sawyer No May 13, 2023 7:27am Advance Directive Response Recorded Date/ Time Living Will No May 13 8:27am Do you have a Healthcare Power of Veneer Sawyer? No May 13, 2023 8:27am Advance Directives No July 22 7:07pm Advance Directive Response Recorded Date/ Time Living Will No May 13 8:27am Do you have a Healthcare Power of Veneer Sawyer? No May 13, 2023 8:27am Advance Directives No December 20, 2024 11:52am Date Activated Date Inactivated Comments 01/01/2025 3:08 PM 01/01/2025 7:48 PM Date Activated Date Inactivated Comments 01/01/2025 3:08 PM 01/01/2025 7:48 PM Assessments Diagnosis Sprain of left ankle, unspecified [...] LOWER EXTREMITY RIGHT W JT WO CONTRAST Марина Zepeda, DO [address] [place] [address] Status Reason Specialty Diagnoses / Procedures Referred By Contact Referred To Contact Open Specialty Services Required Orthopedic Surgery Diagnoses Contusion of right shoulder, initial encounter Alejandro Olivia MD [phone] [place] [id number] [address] [place] [address] Scheduling Instructions [facility] - [place] [address] [place] [address] Status Reason Specialty Diagnoses / Procedures Referred By Contact Referred To Contact Pending Review Radiology Diagnoses Cyst of right breast Lump in upper inner quadrant of right breast Procedures US Breast Limited Right Марина Zepeda, DO [address] [place] [address] Status Reason Specialty Diagnoses / Procedures Referre d By Contact Referred To Contact Open Radiology Diagnoses Menopause Procedures DEXA Bone Density Axial Skeleton Марина Zepeda, DO [address] [place] [address] Status Reason Specialty Diagnoses / Procedures Referred By Contact Referred To Contact Authorized Radiology Diagnoses Lung nodule Procedures CT Chest W Contrast Aubrey Dyer MD [address] [place] [address] Status Reason Specialty Diagnoses / Procedures Referre d By Contact Referred To Contact Open Radiology Diagnoses Pulmonary nodule Procedures PET CT SKULL BASE TO MID THIGH Kathryn Varghese MD [address] [facility]. [address] [address] Specialty Diagnoses / Procedures Referred By Contac t Referred To Contact Radiology Diagnoses Pulmonary nodule Procedures CT CHEST WO CONTRAST Kathryn Varghese MD [address] [place] [address] Referral ID Status Reason Start Date Expiration Date Visits Re quested Visits Authorized [id number] Open 05/11/2021 05/11/2022 1 1 Specialty Diagnoses / Procedures Referred By Contac t Referred To Contact Radiology Diagnoses Breast density Unspecified lump in the left breast, lower outer quadrant Procedures US Breast Limited Left Марина Zepeda DO [address] [place] [address] Referral ID Status Reason Start Date Expiration Date Visits Re quested Visits Authorized [id number] Open 08/22/2021 08/22/2022 1 1 Specialty Diagnoses / Procedures Referred By Contac t Referred To Contact Radiology Diagnoses Closed fracture of one rib of right side with routine healing, subsequent encounter Lung nodule Procedures CT chest wo IV contrast Jazmin Moy PA-C [address] [place] [address] Referral ID Status Reason Start Date Expiration Date Visits Re quested Visits Authorized [id number] Closed 05/02/2022 10/29/2022 1 1 Specialty Diagnoses / Procedures Referred By Contac t Referred To Contact Radiology Diagnoses Cigarette smoker Procedures CT lung screening low dose Marjan Wall GLASS SETTER - WATCH AND CLOCK MAKER AND REPAIRER [address] [facility] [address] [place] [address] Referral ID Status Reason Start Date Expiration Date V isits Requested Visits Authorized [id number] Authorized 05/23/2023 06/22/2023 2 2 Specialty Diagnoses / Procedures Referred By Contac t Referred To Contact Radiology Diagnoses Chronic respiratory failure with hypoxia (HCC) Centrilobular emphysema (HCC) Procedures NM lung ventilation perfusion aerosol Joyce Brown, GLASS SETTER - WATCH AND CLOCK MAKER AND REPAIRER [address] [place]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 Start Date End Date Prosper Roman DO [address] [place] [address] PCP - General Family Medicine 06/22/22 Toddler Guide Relationship Specialty Start Date End Date Prosper Roman LindsayDO [address] [place] [address] PCP - General Family Medicine 06/22/22 Toddler Guide Relationship Specialty Start Date End Date Prosper Roman LindsayDO [address] [place] [address] PCP - General Family Medicine 06/22/22 Team Status: Inactive Member Role Status Dates Dr. Prosper Roman DO Primary Care Provider Active Dr. Hayder Bob MD Emergency Provider Active Toddler Guide Relationship Specialty Start Date End Date Prosper Roman DO [address] [place] [address] PCP - General Family Medicine 06/22/22 Toddler Guide Relationship Specialty Start Date End Date TevinProsper medina, [address] [place] [address] PCP - General Family Medicine 06/22/22 Toddler Guide Relationship Specialty Start Date End Date TevinProsper medina, DO [address] [place] [address] PCP - General Family Medicine 06/22/22 Team Status: Inactive Member Role Status Dates Dr. Prosper Roman , DO Primary Care Provider Active Dr. Hayder Bob MD Attending Provider, Emergency Pro vider Active Team Status: Inactive Member Role Status Dates Dr. Prosper Roman , DO Primary Care Provider Active Dr. Sapna Laboy , DO Emergency Provider Active Toddler Guide Relationship Specialty Start Date End Date TevinProsper medina, DO [address] [place] [address] PCP - General Family Medicine 06/22/22 Toddler Guide Relationship Specialty Start Date End Date TevinProsper medina, [address] [place] [address] PCP - General Family Medicine 06/22/22 Toddler Guide Relationship Specialty Start Date End Date TevinProsper medina, DO [address] [place] [address] PCP - General Family Medicine 06/22/22 Toddler Guide Relationship Specialty Start Date End Date JessieProsper, DO [address] [place] [address] PCP - General Family Medicine 06/22/22 Toddler Guide Relationship Specialty Start Date End Date TevinProsper medina, DO [address] [place] [address] PCP - General Family Medicine 06/22/22 Toddler Guide Relationship Specialty Start Date End Date JessieProsper, DO [address] [place] [address] PCP - General Family Medicine 06/22/22 Toddler Guide Relationship Specialty Start Date End Date JessieProsper, DO [address] [place] [address] PCP - General Family Medicine 06/22/22 Toddler Guide Relationship Specialty Start Date End Date JessieProsper, DO [address] [place] [address] PCP - General Family Medicine 06/22/22 Toddler Guide Relationship Specialty Start Date End Date TevincoltlizzyProsper, DO [address] [place] [address] PCP - General Family Medicine 06/22/22 Toddler Guide Relationship Specialty Start Date End Date JessieProsper, DO [address] [place] [address] PCP - General Family Medicine 06/22/22 Toddler Guide Relationship Specialty Start Date End Date JessieProsper, DO [address] [place] [address] PCP - General Family Medicine 06/22/22 Toddler Guide Relationship Specialty Start Date End Date TevinProsper medina, DO [address] [place] [address] PCP - General Family Medicine 06/22/22 Toddler Guide Relationship Specialty Start Date End Date JessieProsper, DO [address] [place] [address] PCP - General Family Medicine 06/22/22 Toddler Guide Relationship Specialty Start Date End Date Jessie Prosper Montoya, DO [address] [place] [address] PCP - General Family Medicine 06/22/22 Toddler Guide Relationship Specialty Start Date End Date Jessie Prosper Montoya, DO [address] [place] [address] PCP - General Family Medicine 06/22/22 Toddler Guide Relationship Specialty Start Date End Date Jessie Prosper Montoya, DO [address] [place] [address] PCP - General Family Medicine 06/22/22 Toddler Guide Relationship Specialty Start Date End Date Jessie Prosper Montoya, DO [address] [place] [address] PCP - General Family Medicine 06/22/22 Toddler Guide Relationship Specialty Start Date End Date Jessie Prosper Montoya, DO [address] [place] [address] PCP - General Family Medicine 06/22/22 Toddler Guide Relationship Specialty Start Date End Date Prosper Roman, DO [address] [place] [address] PCP - General Family Medicine 06/22/22 Toddler Guide Relationship Specialty Start Date End Date Prosper Roman, DO [address] [place] [address] PCP - General Family Medicine 06/22/22 Toddler Guide Relationship Specialty Start Date End Date Prosper Roman, DO [address] [place] [address] PCP - General Family Medicine 06/22/22 Toddler Guide Relationship Specialty Start Date End Date Prosper Roman, DO [address] [place] [address] PCP - General Family Medicine 06/22/22 Toddler Guide Relationship Specialty Start Date End Date Марина Zepeda DO [address] [place] [address] PCP - General 09/21/18 Toddler Guide Relationship Specialty Start Date End Date Марина Zepeda DO [address] [place] [address] PCP - General 09/21/18 Toddler Guide Relationship Specialty Start Date End Date Марина Zepeda DO [address], [place] [id number] PCP - General 09/21/18 Toddler Guide Relationship Specialty Start Date End Date Марина Zepeda DO [address] [place], [place] [id number] PCP - General 09/21/18 Toddler Guide Relationship Specialty Start Date End Date Марина Zepeda, DO [address], [place] [id number] PCP - General 09/21/18 Toddler Guide Relationship Specialty Start Date End Date Марина Zepeda, DO [address], [place] [address] PCP - General 09/21/18 Toddler Guide Relationship Specialty Start Date End Date Prosper Romna, DO [address], [place] [id number] PCP - General Family Medicine 06/22/22 Toddler Guide Relationship Specialty Start Date End Date Prosper Roman, DO [address] [place] [address] PCP - General Family Medicine 06/22/22 Toddler Guide Relationship Specialty Start Date End Date Prosper Roman, DO [address] [place] [address] PCP - General Family Medicine 06/22/22 Toddler Guide Relationship Specialty Start Date End Date Prosper Roman, DO [address] [place] [address] PCP - General Family Medicine 06/22/22 Toddler Guide Relationship Specialty Start Date End Date Prosper Roman, DO [address] [place] [address] PCP - General Family Medicine 06/22/22 Toddler Guide Relationship Specialty Start Date End Date Prosper Roman, DO [address] [place] [address] PCP - General Family Medicine 06/22/22 Toddler Guide Relationship Specialty Start Date End Date TevinProsper medina, DO [address] [place] [address] PCP - General Family Medicine 06/22/22 Toddler Guide Relationship Specialty Start Date End Date JessieProsper, DO [address] [place] [address] PCP - General Family Medicine 06/22/22 Toddler Guide Relationship Specialty Start Date End Date TevincoltlizzyProsper, DO [address] [place] [address] PCP - General Family Medicine 06/22/22 Toddler Guide Relationship Specialty Start Date End Date JessieProsper, DO [address] [place] [address] PCP - General Family Medicine 06/22/22 Toddler Guide Relationship Specialty Start Date End Date JessieProsper, DO [address] [place] [address] PCP - General Family Medicine 06/22/22 Toddler Guide Relationship Specialty Start Date End Date JessieProsper, DO [address] [place] [address] PCP - General Family Medicine 06/22/22 Toddler Guide Relationship Specialty Start Date End Date JessieProsper, DO [address] [place] [address] PCP - General Family Medicine 06/22/22 Toddler Guide Relationship Specialty Start Date End Date Prosper Roman Lindsay, DO [address] [place] [address] PCP - General Family Medicine 06/22/22 Toddler Guide Relationship Specialty Start Date End Date Prosper Roman Lindsay, DO [address] [place] [address] PCP - General Family Medicine 06/22/22 Toddler Guide Relationship Specialty Start Date End Date Prosper Roman, DO [address] [place] [address] PCP - General Family Medicine 06/22/22 Toddler Guide Relationship Specialty Start Date End Date Prosper Roman, DO [address] [place] [address] PCP - General Family Medicine 06/22/22 Toddler Guide Relationship Specialty Start Date End Date Prosper Roman, DO [address] [place] [address] PCP - General Family Medicine 06/22/22 Joyce Chino, homicide squad captainBartender Education Program Manager 07/09/24 Toddler Guide Relationship Specialty Start Date End Date Prosper Roman, DO [address] [place] [address] PCP - General Family Medicine 06/22/22 Joyce Chino, homicide squad captainBartender Education Program Manager 07/09/24 Toddler Guide Relationship Specialty Start Date End Date Prosper Roman, DO [address] [place] [address] PCP - General Family Medicine 06/22/22 Joyce Chino, homicide squad captainBartender Education Program Manager 07/09/24 Toddler Guide Relationship Specialty Start Date End Date Prosper Roman, DO [address] [place] [address] PCP - General Family Medicine 06/22/22 Joyec Chino, homicide squad captainBartender Education Program Manager 07/09/24 Toddler Guide Relationship Specialty Start Date End Date Prosper Roman, DO [address] [place] [address] PCP - General Family Medicine 06/22/22 Joyce Chino, homicide squad captainBartender Education Program Manager 07/09/24 Toddler Guide Relationship Specialty Start Date End Date Prosper Roman, DO [address] [place] [address] PCP - General Family Medicine 06/22/22 Joyce Chino, homicide squad captainBartender Education Program Manager 07/09/24 Toddler Guide Relationship Specialty Start Date End Date Prosper Roman, DO [address] [place] [address] PCP - General Family Medicine 06/22/22 Joyce Chino, homicide squad captainBartender Education Program Manager 07/09/24 Toddler Guide Relationship Specialty Start Date End Date Prosper Roman, DO [address] [place] [address] PCP - General Family Medicine 06/22/22 Joyce Chino, homicide squad captainBartender Education Program Manager 07/09/24 Toddler Guide Relationship Specialty Start Date End Date Prosper Roman, DO [address] [place] [address] PCP - General Family Medicine 06/22/22 Joyce Chino, homicide squad captainBartender Education Program Manager 07/09/24 Toddler Guide Relationship Specialty Start Date End Date Prosper Roman Lindsay, DO [address] [place] [address] PCP - General Family Medicine 06/22/22 Joyce Chino, homicide squad captainBartender Education Program Manager 07/09/24 Toddler Guide Relationship Specialty Start Date End Date Prosper Roman, DO [address] [place] [address] PCP - General Family Medicine 06/22/22 Joyce Chino, homicide squad captainBartender Education Program Manager 07/09/24 Toddler Guide Relationship Specialty Start Date End Date Prosper Roman, DO [address] [place] [address] PCP - General Family Medicine 06/22/22 Joyce Chino, homicide squad captainBartender Education Program Manager 07/09/24 Toddler Guide Relationship Specialty Start Date End Date Prosper Roman, DO [address] [place] [address] PCP - General Family Medicine 06/22/22 Joyce Chino, homicide squad captainBartender Education Program Manager 07/09/24 Toddler Guide Relationship Specialty Start Date End Date Prosper Roman, DO [address] [place] [address] PCP - General Family Medicine 06/22/22 Joyce Chino, homicide squad captainBartender Education Program Manager 07/09/24 Toddler Guide Relationship Specialty Start Date End Date JulietProsper ball, DO [address] [place] [address] PCP - General Family Medicine 06/22/22 Joyce Chino, homicide squad captainBartender Education Program Manager 07/09/24 Toddler Guide Relationship Specialty Start Date End Date JulietProsper ballDO [address] [place] [address] PCP - General Family Medicine 06/22/22 Joyce Chino, homicide squad captainBartender Education Program Manager 07/09/24 Toddler Guide Relationship Specialty Start Date End Date Jessie Prosper MontoyaDO [address] [place] [address] PCP - General Family Medicine 06/22/22 Joyce Chino, homicide squad captainBartender Education Program Manager 07/09/24 Toddler Guide Relationship Specialty Start Date End Date Prosper Roman Lindsay, [address] [place] [address] PCP - General Family Medicine 06/22/22 Joyce Chino, homicide squad captainBartender Education Program Manager 07/09/24 Toddler Guide Relationship Specialty Start Date End Date Jessie Prosper MontoyaDO [address] [place] [address] PCP - General Family Medicine 06/22/22 Joyce Chino, homicide squad captainBartender Education Program Manager 07/09/24 Team Status: Active Member Role/Relationship Status Dates Dr. Prosper Roman DO Primary Care Provider Active Team Status: Inactive Member Role/Relationship Status Dates Dr. Prosper Roman DO Primary Care Provider Active Start: August 26, 2024 End: August 26, 2024 Dr. Prosper Roman DO Referring Provider Active Start: August 26, 2024 End: August 26, 2024 Dr. Filipe Mancilla MD Attending Provider Active Start: August 26, 2024 End: August 26, 2024 Team Status: Inactive Member Role/Relationship Status Dates Dr. Prosper Roman DO Primary Care Provider Active Start: November 11, 2024 End: November 11, 2024 Dr. Prosper Roman DO Referring Provider Active Start: November 11, 2024 End: November 11, 2024 Dr. Mumtaz Field MD Attending Provider Active Sta rt: November 11, 2024 End: November 11, 2024 Team Status: Inactive Member Role/Relationship Status Dates Dr. Prosper Roman DO Primary Care Provider Active Start: November 11, 2024 End: November 11, 2024 Dr. Mumtaz Field MD Attending Provider Active Sta rt: November 11, 2024 End: November 11, 2024 Dr. Mumtaz Field MD Referring Provider Active Sta rt: November 11, 2024 End: November 11, 2024 Toddler Guide Relationship Specialty Start Date End Date Prosper Roman DO [address] [place] [address] PCP - General Family Medicine 06/22/22 Joyce Chino, homicide squad captainBartender Education Program Manager 07/09/24 Toddler Guide Relationship Specialty Start Date End Date Prosper Roman DO [address] [place] [address] PCP - General Family Medicine 06/22/22 Joyce Chino, homicide squad captainBartender Education Program Manager 07/09/24 Team Status: Inactive Member Role/Relationship Status Dates Dr. Prosper Roman DO Primary Care Provider Active Start: December 20, 2024 End: December 20, 2024 Dr. Prosper Roman DO Referring Provider Active Start: December 20, 2024 End: December 20, 2024 MOISES Cox Attending Provider Active Start: December 20, 2024 End: December 20, 2024 Toddler Guide Relationship Specialty Start Date End Date Prosper Roman DO [address] [place] [address] PCP - General Family Medicine 06/22/22 Toddler Guide Relationship Specialty Start Date End Date Prosper Roman DO [address] [place] [address] PCP - General Family Medicine 06/22/22 Toddler Guide Relationship Specialty Start Date End Date Prosper Roman DO [address] [place] [address] PCP - General Family Medicine 06/22/22 Toddler Guide Relationship Specialty Start Date End Date Prosper Roman DO [address] [place] [address] PCP - General Family Medicine 06/22/22 Toddler Guide Relationship Specialty Start Date End Date Prosper Roman DO [address] [place] [address] PCP - General Family Medicine 06/22/22 Toddler Guide Relationship Specialty Start Date End Date Prosper Roman DO [address] [place] [address] PCP - General Family Medicine 06/22/22 Team Status: Active Member Role/Relationship Status Dates Dr. Prosper Roman DO Primary care physician Active Team Status: Inactive Member Role/Relationship Status Dates Dr. Prosper Roman DO Primary care physician Active Start: November 11, 2024 End: November 11, 2024 Dr. Prosper Roman DO Referring Provider Active Start: November 11, 2024 End: November 11, 2024 Dr. Mumtaz Field MD Attending physician Active St art: November 11, 2024 End: November 11, 2024 Team Status: Inactive Member Role/Relationship Status Dates Dr. Prosper Roman DO Primary care physician Active Start: November 11, 2024 End: November 11, 2024 Dr. Mumtaz Field MD Attending physician Active St art: November 11, 2024 End: November 11, 2024 Dr. Mumtaz Field MD Referring Provider Active Sta rt: November 11, 2024 End: November 11, 2024 Team Status: Inactive Member Role/Relationship Status Dates Dr. Prosper Roman DO Primary care physician Active Start: December 20, 2024 End: December 20, 2024 Dr. Prosper Roman DO Referring Provider Active Start: December 20, 2024 End: December 20, 2024 MOISES Cox Attending physician Active Start: December 20, 2024 End: December 20, 2024 Team Status: Inactive Member Role/Relationship Status Dates Dr. Prosper Roman DO Primary care physician Active Start: January 15, 2025 End: January 15, 2025 Dr. Mumtaz Field MD Attending physician Active St art: January 15, 2025 End: January 15, 2025 Dr. Mumtaz Field MD Referring Provider Active Sta rt: January 15, 2025 End: January 15, 2025 Goals (unrecognized section and content) Goals may be documented in a n alternate sectionGoals may be documented in an alternate sectionGoals may be documented in an alternate sectionGoals may be documented in an alternate sectionGoals may be documented in an alternate sectionGoals may be documented in an alternate sectionGoals may be documented in an alternate sectionGoals may be documented in an alternate sectionGoals may be documented in an alternate sectionGoals may be documented in an alternate sectionGoals may be documented in an alternate sectionGoals may be documented in an alternate sectionGoals may be documented in an alternate sectionGoals may be documented in an alternate sectionGoals may be documented in an alternate sectionGoals may be documented in an alternate section INFORMATION SOURCE (unrecogn ized section and content) DATE CREATED AUTHOR 09/11/2021 [employer] DATE CREATED AUTHOR AUTHOR'S ORGANIZ ATION 01/29/2022 [employer] DATE CREATED AUTHOR AUTHOR'S ORGANIZ ATION 02/01/2022 [facility] DATE CREATED AUTHOR AUTHOR'S ORGANSILVINO ATION 01/16/2025 [facility] DATE CREATED AUTHOR AUTHOR'S ORGANSILVINO ATION 01/23/2025 [facility] FOR RECORDS PERTAINING TO PATIENTS WHO ARE [...] BE BASED ON THE PRIMARY CLINICAL RECORDS. [employer] [facility]. provides no warranty or guarantee of the accuracy or completeness of information in this document.
[2025-01-24 21:48] LABS: Differential Indicated SCAN CRITERIA MET
--- NOTE | 2025-01-24 21:52 | RAD_ITS ---
PROCEDURE: CHEST 1 VIEW (PORTABLE) 01/24/2025 REASON FOR EXAM: SHORTNESS OF BREATH, COUGH TECHNIQUE: Frontal view of the chest. COMPARISON: 03/09/2024 FINDINGS: Hardware: None. Heart: The heart size is normal. Lungs: The lungs are clear. No pneumothorax or pleural effusion. Bones: The bones are unremarkable. RAD/Chest 1 View (Portable) IMPRESSION: No Acute Findings. Reading Location: [facility]
[2025-01-24 21:53] LABS: Anion Gap 15 (5-15); BUN 22 mg/dL (4-19); BUN/Creat Ratio 18.2 RATIO (10-20); Calcium,Total 10.0 mg/dL (7.6-11.0); Carbon Dioxide 23.5 mmol/L (21.0-32.0); Chloride 100 mmol/L (98-108); Glucose 107 mg/dL (70-99); Potassium 4.4 mmol/L (3.3-5.1)
[2025-01-24 22:59] LABS: Differential Comment SCANNED
[2025-01-24 23:28] LABS: Troponin T High Sens 2 HR 11 ng/L (<=14)
[2025-01-25] VITALS: BP 145/83; PULSE 114
[2025-01-25 00:19] VITALS: BP 145/83; PULSE 114; RESP 17; TEMP 36.9; O2SAT 97
== END 2025-01-25 00:33 | disposition left against medical advice (07) ==
PROVIDERS: Emergency Provider Emergency Medicine; PCP Family Medicine; Visit Provider Emergency Medicine
DX: R06.00 Dyspnea, unspecified (principal); J44.1 Chronic obstructive pulmonary disease with (acute) exacerbation; R00.0 Tachycardia, unspecified; Z87.891 Personal history of nicotine dependence
CPT/HCPCS: 71045; 80048; 82803; 83880; 84484; 85025; 87631; 93005; 94002; 94640; 96374; 99283; A4216

== ENCOUNTER 2025-02-23 18:38 | Emergency (ER) | payer MEDICARE, SELFPAY ==
[2025-02-23] VITALS (11 sets, daily range): BP systolic 141–183; BP diastolic 86–102; PULSE 121–141; RESP 20–40; TEMP 36.6–36.8; O2SAT 95–98; BMI 32.0
--- NOTE | 2025-02-23 19:25 | EKG12_ITS ---
Test Reason : SOB
--- NOTE | 2025-02-23 19:27 | ED.VIS.DYS ---
HPI History of Present Illness Chief Complaint: Shortness of Breath Informant: patient Onset/Context/Timing Onset: Weeks (1) Context: gradual Timing: Continuous Quality: Positive for Wheezing Worsened by: Exertion Relieved by: Nothing Associated Symptoms cough and sore throat; Negative for rhinorrhea, post nasal drip, ear pain, fever, chills, clear sputum, white sputum, yellow sputum or green sputum Narrative Narrative: Patient presents with shortness of breath that has been getting worse over the past week. Patient states it is gradually getting worse. Patient states she hears herself wheezing. Patient states she started a course of prednisone and an antibiotic. Patient states she went to the urgent care because she ran out of her prednisone. Patient states she has been using her home aerosol machine with no improvement. Patient admits to a cough but denies any sputum production. Patient admits to a mild sore throat. Patient denies any fevers or chills. Patient denies any chest pain. PE Risk Factors: Negative for Cancer, OCP + Smoking + > 35, Prior DVT or PE, Recent immobilization, Recent surgery or Recent travel [facility] Medical History Nodule of upper lobe of right lung Idiopathic thrombocytopenic purpura (ITP) Chronic hypoxic respiratory failure Emphysema of lung Asthma Thrombocytosis Anemia Leukocytosis Thrush RSV infection Acute and chronic respiratory failure with hypoxia Osteoporosis On home oxygen therapy COPD (chronic obstructive pulmonary disease) Former smoker GERD (gastroesophageal reflux disease) Hypothyroid Obesity (BMI 30.0-34.9) HTN (hypertension) Immune deficiency disorder Home Medications ?Medication ?Instructions ?Recorded ?Last Taken ?Type albuterol sulfate 90 mcg/actuation 2 puff inhalation Q4H PRN PRN Sob 07/22/14 Unknown History aerosol inhaler (ProAir HFA) &/Or Wheezing levothyroxine 100 mcg tablet 100 mcg PO DAILY thyroid 07/22/14 02/23/25 History omeprazole 20 mg capsule,delayed 20 mg PO DAILY stomach 07/22/14 02/23/25 History release albuterol sulfate 2.5 mg/3 mL 2.5 mg inhalation Q4H PRN 05/29/22 Unknown History (0.083 %) solution for nebulization shortness of breath or wheezing amlodipine 5 mg tablet 5 mg PO DAILY 05/29/22 02/23/25 History cholecalciferol (vitamin D3) 25 25 mcg PO DAILY 05/29/22 02/23/25 History mcg (1,000 unit) capsule zafirlukast 20 mg tablet 20 mg PO DAILY 05/29/22 02/23/25 History potassium citrate 99 mg capsule 99 mg PO DAILY 10/30/23 02/23/25 History spironolactone 25 mg tablet 25 mg PO QDAY 10/30/23 02/23/25 History zoledronic acid 5 mg/100 mL in 5 ea .Route ONCE #100 mL 11/25/24 02/02/25 Rx mannitol 5 %-water intravenous piggybck guaifenesin 100 mg/5 mL oral liquid 200 mg (10 mL) PO Q4H PRN cough 02/21/25 Unknown Rx #118 mL prednisone 20 mg tablet 50 mg (2.5 x 20 mg) PO DAILY 5 02/21/25 02/23/25 Rx days #13 tabs budesonide 0.5 mg/2 mL suspension 1 inhalation BID 02/23/25 02/23/25 History for nebulization ipratropium 0.5 mg-albuterol 3 mg 1 inhalation TID PRN shortness of 02/23/25 Unknown History (2.5 mg base)/3 mL nebulization breath soln Allergy/AdvReac Type Severity Reaction Status Date / Time Environmental Allergies: Allergy Intermediate Hives Verified 02/23/25 18:41 Uncoded Sulfa (Sulfonamide Allergy Mild Hives Verified 02/23/25 18:41 Antibiotics) ampicillin Allergy stomach Verified 02/23/25 18:41 issues aspirin (ASA) Allergy Hives Verified 02/23/25 18:41 atorvastatin Allergy Shortness Verified 02/23/25 18:41 of breath cephalexin monohydrate (From Allergy Hives Verified 02/23/25 18:41 Keflex) lisinopril Allergy Other Verified 02/23/25 18:41 codeine AdvReac Nausea/Vom/ Verified 02/23/25 18:41 Diarrhea levofloxacin (From Levaquin) AdvReac Pain in Verified 02/23/25 18:41 joints Family History Mother Hypertension Father Rheumatoid arthritis Heart disease Sister Cancer Brother Cancer Surgical History History of hemorrhoidectomy History of meniscectomy of left knee History of colonoscopy History of bilateral cataract extraction History of cholecystectomy History of appendectomy Hx of tonsillectomy Hx of hysterectomy Social History household members: spouse Smoking Status: Former smoker how long ago did patient quit smoking: Quit 2009, prior 1-1.5 ppd since youth. alcohol intake: never substance use type: does not use caffeine: Yes ROS ROS ED Constitutional Constitutional ED: Denies chills or fever(s) Eyes Eyes: Denies blurry vision or change in vision ENT ENT ED: Reports sore throat; Denies rhinorrhea Cardiovascular Cardiovascular: Denies chest pain or palpitations Respiratory/Chest Respiratory/Chest: Reports cough and dyspnea Gastrointestinal Gastrointestinal: Denies nausea or vomiting Genitourinary Genitourinary ED: Denies dysuria or hematuria Musculoskeletal Musculoskeletal: Reports neck pain; Denies back pain Integumentary Denies abscess or rash Neurologic Neurologic: Denies headache(s) or weakness Allergic/Immunologic Allergic/Immunologic ED: Denies mouth swelling or urticaria EXAM Physical Exam Const Vital Signs: 02/23/25 18:39 02/23/25 18:41 02/23/25 19:08 Temperature 98 F 98.0 F Temperature Source Temporal Oral Pulse Rate 141 H 130 H Respiratory Rate 40 H 25 H Respiratory Effort Short of Breath Labored Respiratory Pattern Tachypnea Blood Pressure 161/102 H 183/91 H Blood Pressure Mean 121 121 Pulse Ox 95 98 Oxygen Delivery Method Nasal Cannula Nasal Cannula Nasal Cannula Oxygen Flow Rate (L/min) 2 2 2 02/23/25 19:38 02/23/25 19:41 02/23/25 19:56 Temperature 98 F Temperature Source Oral Pulse Rate 124 H 124 H Respiratory Rate 20 H Respiratory Effort Respiratory Pattern Blood Pressure 169/99 H 169/99 H Blood Pressure Mean 122 122 Pulse Ox 98 Oxygen Delivery Method Nasal Cannula Nasal Cannula Oxygen Flow Rate (L/min) 2 2 02/23/25 19:59 02/23/25 20:00 02/23/25 21:00 Temperature 98.2 F 98.2 F Temperature Source Oral Oral Pulse Rate 137 H 137 H 132 H Respiratory Rate 26 H 26 H 23 H Respiratory Effort Respiratory Pattern Tachypnea Blood Pressure 164/86 H 158/101 H Blood Pressure Mean 112 120 Pulse Ox 98 98 Oxygen Delivery Method Nasal Cannula Nasal Cannula Oxygen Flow Rate (L/min) 2 2 02/23/25 22:00 02/23/25 22:10 02/23/25 22:11 Temperature 98.2 F 98.2 F Temperature Source Oral Pulse Rate 121 H 121 H 127 H Respiratory Rate 26 H 26 H 26 H Respiratory Effort Respiratory Pattern Tachypnea Blood Pressure 141/88 H 141/88 H Blood Pressure Mean 105 105 Pulse Ox 97 97 Oxygen Delivery Method Room Air Oxygen Flow Rate (L/min) Positive well nourished and well developed Constitutional Narrative: BMI is 32.0. General Appearance ED: well developed and NAD HEENT Reports moist mucous membranes atraumatic Neck supple and no JVD Resp normal respiratory effort Auscultation: wheezes expiratory wheezes and throughout Cardio regular rhythm Rate: tachycardic GI non-tender and non-distended Palpation: soft Neuro oriented x3, CN's II-XII intact bilaterally and no sensory deficits noted [place] Coma Scale: document GCS findings Spontaneous Obeys Commands Oriented 15 Sensorium / Orientation: alert Speech: speech normal Motor Exam: strength 5/5 throughout Psych mental status grossly normal MDM MDM MDM Narrative Medical decision making narrative: Differential diagnosis includes pneumonia, bronchitis, COPD exacerbation, congestive heart failure, cardiac dysrhythmia, cardiac ischemia, strep pharyngitis, and viral illness. EKG will be obtained to assess for cardiac dysrhythmia and cardiac ischemia. Chest x-ray will be obtained to assess for pneumonia or bronchitis. COVID-19, influenza, and RSV PCR will be obtained to assess for viral illness. Rapid strep will be obtained to assess for strep pharyngitis. CBC will be obtained to assess for leukocytosis and anemia. Basic metabolic profile will be obtained to assess for electrolyte abnormality renal function. BNP will be obtained to assess for congestive heart failure. High-sensitivity troponin will be obtained to assess for cardiac ischemia. Lab Data Attestation: I reviewed the patient's lab results. Lab results narrative: CBC was reviewed and showed a mild leukocytosis of 13.2. The remainder is within normal limits. Basic metabolic profile was reviewed. Creatinine was minimally elevated at 1.21. The remainder was within normal limits. Initial high-sensitivity troponin was reviewed and was normal at 10. 2-hour repeat high-sensitivity troponin was reviewed and was normal at 13. BNP was reviewed and was normal at 457. COVID-19 PCR was reviewed and was negative. Influenza PCR was reviewed and was negative for influenza A and influenza B. RSV PCR was reviewed and was negative. Rapid strep was reviewed and was negative. Labs: Laboratory Results - last 24 hr 02/23/25 02/23/25 19:05 21:04 WBC 13.2 H RBC 4.15 L Hgb 12.1 Hct 37.2 MCV 89.6 MCH 29.2 MCHC 32.5 RDW Std Deviation 49.0 H RDW Coeff of [place] 14.9 H Plt Count 478 H MPV 9.7 Immature Gran % (Auto) 1.600 H Neut % (Auto) 70.5 H Lymph % (Auto) 12.5 L [place] % (Auto) 12.2 H Eos % (Auto) 2.7 Baso % (Auto) 0.5 Absolute Neuts (auto) 9.3 H Absolute Lymphs (auto) 1.64 Nucleated RBC % 0 Differential Comment SCANNED Platelet Estimate SLT INC Sodium 139 Potassium 4.0 Chloride 101 Carbon Dioxide 27.6 Anion Gap 11 BUN 18 Creatinine 1.21 H Estim Creat Clear Calc 37.85 L Est GFR (MDRD) Non-Af 48 L BUN/Creatinine Ratio 15.1 Glucose 109 H Calcium 9.6 Troponin T High Sens 10 D Troponin T Hi Sens 2 Hr 13 NT pro BNP II 457 Radiography Chest X-Ray - ED: 2 View, Read by ED Physician, Read by Radiologist and No Acute Disease Diagnostic Testing: Clinical Impression(s) from Imaging Studies Chest X-Ray 02/23/25 19:43 IMPRESSION: Mild pulmonary vascular congestion and interstitial edema. Underlying chronic lung disease not excluded. No focal consolidation. Reading Location: [facility] PA and lateral chest x-ray was obtained. There are 2 views. On my independent interpretation, lung hutchins showed mild pulmonary vascular congestion and interstitial edema. There is normal cardiac silhouette. Bony thorax is normal. There is no acute process noted. Radiologist also interpreted the x-ray and agrees. EKG Initial EKG: Attestation: I personally reviewed and interpreted this EKG as follows: Interpretation: Sinus Tachycardia (129) and Non-Specific ST Changes Comments: EKG was obtained. On my independent interpretation, showed sinus tachycardia with a rate of 129. [place] interval was normal at 128 ms. QRS interval was normal at 70 ms. QTc interval was normal at 424 ms. [place] was normal. There are nonspecific ST-T wave changes. Prior EKG tracings: available for review Prior: Unchanged (01/24/2025) Treatment and Re-Evaluation :: Patient was given a DuoNeb aerosol here. Patient was also given albuterol aerosol. Patient was feeling somewhat better after this. Patient was still wheezing on reevaluation. Patient was given a repeat dose of albuterol. I offered admission to the hospital. Patient states she wants to go home. Patient states she has aerosols and prednisone at home. Patient states that if she gets worse she would return to the emergency department. Patient does not want to be admitted to the hospital at this time. Patient was instructed to continue her prednisone as prescribed. Patient was instructed to continue her aerosols as prescribed. Patient was instructed to return if worse in any way. Patient understood and was agreeable with plan. All questions were answered. Discharge Plan Triage Chief Complaint: Shortness of Breath ED Provider: Efra English Dx/Rx/DC Orders Clinical Impression: COPD exacerbation, HTN (hypertension), On home oxygen therapy Instructions: ED COPD Flare Prescriptions: No Action amlodipine 5 mg tablet 5 mg PO DAILY albuterol sulfate 2.5 mg /3 mL (0.083 %) solution for nebulization 2.5 mg inhalation Q4H PRN (Reason: shortness of breath or wheezing) cholecalciferol (vitamin D3) 25 mcg (1,000 unit) capsule 25 mcg PO DAILY zafirlukast 20 mg tablet 20 mg PO DAILY Rx Instructions: must be taken on empty stomach, at least 1 hr before or 2 hrs after a meal/food potassium citrate 99 mg capsule 99 mg PO DAILY spironolactone 25 mg tablet 25 mg PO QDAY zoledronic [id number] 5 mg/100 mL piggyback 5 ea .Route ONCE Qty: 100 0RF Rx Instructions: onceinfuse over 20 minutes prednisone 20 mg tablet 50 mg PO DAILY 5 Days Qty: 13 0RF Rx Instructions: take with food guaifenesin 100 mg/5 mL liquid 200 mg PO Q4H PRN (Reason: cough) Qty: 118 1RF levothyroxine 100 MCG tablet 100 mcg PO DAILY Patient Comments: thyroid omeprazole 20 MG capsule 20 mg PO DAILY Patient Comments: gerd albuterol sulfate [ProAir HFA] 1 PUFF inhaler 2 puff inhalation Q4H PRN PRN (Reason: Sob &/Or Wheezing) Patient Comments: copd budesonide 0.5 mg/2 mL suspension for nebulization 1 inhalation BID ipratropium-albuterol 0.5 mg-3 mg(2.5 mg base)/3 mL solution for nebulization 1 inhalation TID PRN (Reason: shortness of breath) Primary Care Provider: Prosper Roman Referrals: Prosper Roman DO [Primary Care Provider, Family Practice] - 1-2 Days if not improving Print Language: Telugu Disposition Disposition: Home, Self Care Discharge Date/Time: 02/23/25 22:26
--- NOTE | 2025-02-23 19:43 | RAD_ITS ---
PROCEDURE: RAD/Chest PA and Lateral
[2025-02-23 19:51] LABS: Hematocrit 37.2 % (37-47); Hemoglobin 12.1 g/dL (12.0-15.0); Immature Granulocytes Count 0.210 X10^3/uL (0.0-0.0); Mean Corp Hgb Conc 32.5 g/dL (32-36); Mean Corpuscular Volume 89.6 fL (81-99); Mean Platelet Vol. 9.7 fl (6.2-12.0); NRBC Flagged by Analyzer 0 % (0-5); POSITIVE DIFFERENTIAL YES; Platelet Count 478 K/mm3 (150-450); RBC Distribution Width CV 14.9 % (11.6-14.6); RBC Distribution Width SD 49.0 fl (35.1-43.9); Red Blood Count 4.15 M/mm3 (4.2-5.4); White Blood Count 13.2 K/mm3 (4.4-11.0)
[2025-02-23] MEDS: Albuterol 2.5 MG/3 ML VIAL.NEB. INHALATION ×2 (19:58→22:11)
[2025-02-23 19:59] LABS: Differential Indicated SCAN CRITERIA MET
[2025-02-23 20:40] LABS: Anion Gap 11 (5-15); BUN 18 mg/dL (4-19); BUN/Creat Ratio 15.1 RATIO (10-20); Calcium,Total 9.6 mg/dL (7.6-11.0); Carbon Dioxide 27.6 mmol/L (21.0-32.0); Chloride 101 mmol/L (98-108); Estimated Creatinine Clearance 37.85 ml/min (50-250); Glucose 109 mg/dL (70-99); Potassium 4.0 mmol/L (3.3-5.1)
[2025-02-23 20:59] LABS: Pro- Brain NATRIURETIC PEPTIDE 457 pg/mL (<=900); Troponin T High Sensitivity 10 ng/L (<=14)
[2025-02-23 21:40] LABS: Differential Comment SCANNED
[2025-02-23 21:43] LABS: Troponin T High Sens 2 HR 13 ng/L (<=14)
== END 2025-02-23 22:26 | disposition home or self-care (01) ==
PROVIDERS: Emergency Provider Emergency Medicine; PCP Family Medicine; Visit Provider Emergency Medicine
DX: J44.1 Chronic obstructive pulmonary disease with (acute) exacerbation (principal); Z90.710 Acquired absence of both cervix and uterus; Z87.891 Personal history of nicotine dependence; I10 Essential (primary) hypertension; R06.02 Shortness of breath; Z99.81 Dependence on supplemental oxygen; E03.9 Hypothyroidism, unspecified; Z79.890 Hormone replacement therapy; K21.9 Gastro-esophageal reflux disease without esophagitis; Z79.899 Other long term (current) drug therapy; Z79.51 Long term (current) use of inhaled steroids; Z98.41 Cataract extraction status, right eye; Z98.42 Cataract extraction status, left eye; Z90.49 Acquired absence of other specified parts of digestive tract
CPT/HCPCS: 71046; 80048; 83880; 84484; 85025; 87631; 87651; 93005; 94640; 99283; A4216